=== PATIENT | male | born 1955 | race Caucasian/White ===

== ENCOUNTER → 2018-01-01 14:13 | Outpatient (CLI) | payer OTHER, SELFPAY ==
--- NOTE | 2018-01-01 14:18 | RAD_ITS ---
STUDY: X-RAY CHEST REASON FOR EXAM: Male, 62 years old. Cough for one month. TECHNIQUE: Frontal and lateral views of the chest. COMPARISON: None. FINDINGS: The lungs are hyperinflated. There are bilateral prominent interstitial markings. Normal size heart. Normal mediastinum and christianne. Normal visualized pulmonary arteries. Normal visualized aortic arch and descending thoracic aorta. There are diffuse degenerative changes of the visualized thoracic spine. Normal visualized ribs, clavicles, and shoulders. There is no demonstrated abnormality of the visualized soft tissue structures of the upper abdomen. RAD/Chest PA and Lateral IMPRESSION: Hyperinflated lungs may reflect underlying COPD. Prominent interstitial markings, these may be chronic in nature however cannot exclude underlying interstitial edema and/or an infectious process. Electronically Signed: Lakeisha Arevalo MD at 19:53 EDT Tel , Service support ,
== END ==
PROVIDERS: Family Provider Internal Medicine; PCP Internal Medicine; Visit Provider Nurse Practitioner Gerontology
DX: R05 Cough (principal)
CPT/HCPCS: 71046

== ENCOUNTER 2018-01-11 15:27 | Emergency (ER) | payer OTHER, SELFPAY ==
[2018-01-11 15:28] VITALS: BP 107/84; PULSE 60; PULSE 62; RESP 18; TEMP 36.4; O2SAT 97; BMI 34.0
--- NOTE | 2018-01-11 15:31 | RAD_ITS ---
STUDY: X-RAY CHEST REASON FOR EXAM: Male, 62 years old. Dyspnea TECHNIQUE: Single PA view of the chest. COMPARISON: Prior study of 01/01/2018 FINDINGS: The lungs are clear and expanded. There is no demonstrated pleural abnormality. Normal size heart. Normal mediastinum and christianne. Normal visualized pulmonary arteries. Normal visualized aortic arch and descending thoracic aorta. There are diffuse degenerative changes of the visualized thoracic spine. Normal visualized ribs, clavicles, and shoulders. There is no demonstrated abnormality of the visualized soft tissue structures of the upper abdomen. RAD/Chest 1 View (Portable) IMPRESSION: Degenerative changes, as described above. No demonstrated acute cardiopulmonary process. Electronically Signed: Bo Vivas MD at 17:35 EDT , Service support ,
--- NOTE | 2018-01-11 15:31 | EKG12_ITS ---
Test Reason : PALPS Blood Pressure : / mmHG Vent. Rate : 104 BPM Atrial Rate : 163 BPM P-R Int : 000 ms QRS Dur : 096 ms QT Int : 322 ms P-R-T Axes : 000 029 027 degrees QTc Int : 423 ms Atrial fibrillation Abnormal ECG Confirmed by KAYCE BEAVERS MD ([id number]), visual effects editor CURLY BAUMANN ([id number]) on 01/15/2018 2:44:33 PM Referred By: ANDREW/SEBAS Confirmed By:KAYCE BEAVERS MD
[2018-01-11 15:54] LABS: Absolute Neutrophil Count 7.4 X10^3/uL (2.0-7.7); Basophil# 0.02 X10^3/uL; Basophil% 0.2 % (0-1); Eosinophil# 0.19 X10^3/uL; Eosinophils% 1.8 % (0-5); Hematocrit 48.8 % (40-54); Hemoglobin 16.9 g/dl (13.0-16.5); Lymphocyte % 21.6 % (19-41); Mean Corp Hgb Conc 34.6 g/gl (32-36); Mean Corpuscular Hgb 28.6 pg (27.0-32.0); Mean Corpuscular Volume 82.7 fL (80-94); Mean Platelet Vol. 9.3 fl (6.2-12.0); Monocyte# 0.74 X10^3/uL; Neutrophil # 7.35 X10^3/uL (2.7-7.7); Neutrophil % 69.1 % (47-70); Platelet Count 187 K/mm3 (150-450); RBC Distribution Width CV 13.9 % (11.6-14.6); RBC Distribution Width SD 42.1 fl (35.1-43.9); White Blood Count 10.6 K/mm3 (4.4-11.0)
[2018-01-11 15:58] LABS: POSITIVE COUNT NO; POSITIVE DIFFERENTIAL NO; POSITIVE MORPHOLOGY NO
[2018-01-11 16:08] LABS: Prothrombin Time (Protime)PT. 13.5 SECONDS (11.7-14.9)
[2018-01-11 16:12] LABS: Anion Gap 8 (5-15); BUN 22 mg/dL (7-18); BUN/Creat Ratio 17.3 RATIO (10-20); Calcium,Total 9.1 mg/dL (8.5-10.1); Chloride 113 mmol/L (98-107); Creatinine, Serum 1.27 mg/dL (0.70-1.30); EST Glomerular Filtration Rate 61 mL/min (>60); Est Glom Filt Rate - Afr Amer 74 mL/min (>60); Glucose 105 mg/dL (74-106); Potassium 4.2 mmol/L (3.5-5.1); Sodium Level 142 mmol/L (136-145)
--- NOTE | 2018-01-11 17:55 | ED.DCSUM_ITS ---
- ER Visit Summary Date of Service: 01/11/18 Chief Complaint: Irregular heart rhythm History of Present Illness: The patient is a 62 M presents to the emergency department with an irregular heart rhythm. The patient was being seen at his urgent care for ear pain. He states he listened to a woman thought that his heart was regular. He has had absolutely no symptoms. He denies chest pain, dyspnea, leg edema, or exertional dyspnea. He has no documented history of coronary vascular disease. He denies headache or weakness. He has no history of easy bleeding or bruising. He does not smoke. There is no family history of heart disease. Patient was sent over for further evaluation. EKG in triage demonstrated coarse atrial fibrillation versus atrial flutter with intermittent conduction. Physical Examination: Vital signs reviewed General: Well-nourished, well-developed Head: Normocephalic, atraumatic Eyes: Pupils equal and reactive, extraocular muscles intact Neck, supple, no lymphadenopathy Heart: Regular rate and rhythm Respiratory: No distress, clear bilaterally Abdomen: Soft, nontender, nondistended, no peritoneal signs Back: Nontender Extremities: Nontender, no edema, no cords Skin: Normal color no rash Neuro: Alert and oriented, no focal or lateralizing deficits Test Results: [] Emergency Department Course and Treatment: EKG was reviewed. There is no acute ischemic change. The patient has absolutely no symptoms. His labs are obtained were unremarkable. I did discuss the patient with Dr. Dick. He is not tachycardic. He has no evidence of volume overload. He has no acute symptoms. I do feel that he is safe for outpatient therapy. We are going to start him on an anticoagulant and a low-dose beta-jose a. Patient is comfortable this plan of care. His contact information was sent to the cardiology office to ensure outpatient follow-up. He is given his first dose here. He will be discharged home. Treatment Plan: [] Disposition: Discharge Impression: 1. New onset atrial fibrillation This note was generated with [employer] dictation software. It may contain incorrect words, spelling, and punctuation that were not noted in review of the chart prior to signing ED Disposition - Plan for ED Patient: Chief Complaint: Palpitations Instructions: ED Afib Prescriptions: Metoprolol Succinate 25 mg PO DAILY #30 tab.er.24h Rivaroxaban [Xarelto] 20 mg PO DAILY #30 tab Referrals: Balwinder Dick MD [STAFF PHYSICIAN] - 3-5 Days
[2018-01-11] MEDS: Rivaroxaban 20 MG Tablet PO (18:06)
[2018-01-11] MEDS: Metoprolol Tartrate 25 MG Tablet 12.5 MG PO (18:06)
[2018-01-11 18:07] VITALS: BP 122/92; PULSE 63; RESP 17; O2SAT 100; O2SAT 97
[2018-01-11 18:17] VITALS: PULSE 636; RESP 17; O2SAT 97
== END 2018-01-11 18:23 | disposition home or self-care (01) ==
LOC: ED 18:21
PROVIDERS: Emergency Provider Emergency Medicine; Family Provider Internal Medicine; PCP Internal Medicine
DX: I48.91 Unspecified atrial fibrillation (principal)
CPT/HCPCS: 71045; 80048; 84484; 85025; 85610; 93005; 99285; A4216

== ENCOUNTER → 2018-01-24 07:01 | Outpatient (CLI) | payer OTHER, SELFPAY ==
[2018-01-24 10:56] LABS: AST(SGOT) 31 U/L (15-37); Alanine Aminotransfer ALT/SGPT 41 U/L (16-61); Albumin, Serum 3.7 g/dL (3.2-5.0); Alkaline Phosphatase 76 U/L (45-117); Bilirubin, Direct 0.28 mg/dL (0.00-0.30); Cholesterol 168 mg/dL (200); Globulin 3.5 g/dL (2.2-4.2); High Density Lipoprotein 38 mg/dL; Protein, Total 7.2 g/dL (6.4-8.2); T4 Total, Thyroxin 8.7 ug/dL (4.5-12.1); Thyroid Stim Hormone (TSH) 7.24 uIU/mL (0.358-3.74); Triglycerides 92 mg/dL; Very Low Density Lipoprotein 18 mg/dL (5-40)
== END ==
PROVIDERS: Family Provider Internal Medicine; PCP Internal Medicine; Visit Provider Internal Medicine Cardiovascular Disease
DX: I48.91 Unspecified atrial fibrillation (principal)
CPT/HCPCS: 36415; 80061; 80076; 84436; 84443

== ENCOUNTER → 2018-01-26 08:56 | Outpatient (CLI) | payer OTHER, SELFPAY ==
--- NOTE | 2018-01-26 09:03 | ECHOD_ITS ---
Reason For Study: Afib-Flutter Procedure This was a 2D Doppler, Color Flow transthoracic echocardiogram. Exam performed in department. Left Ventricle Moderately dilated left ventricle. The estimated ejection fraction is 35 %. There is moderate global hypokinesis of the left ventricle. Right Ventricle Severely dilated right ventricle. Mild global right ventricular systolic dysfunction. Atria The left atrium is severely enlarged. Normal right atrium. Normal atrial septum. Mitral Valve The mitral valve is structurally normal. No prolapse or stenosis seen. Trivial mitral valve insufficiency. Tricuspid Valve Normal tricuspid valve. Trivial tricuspid valve insufficiency. Unable to estimate RV systolic pressure due to inadequate jet, pulmonary artery pressure probably normal. Aortic Valve Normal aortic valve. Trisinus/trileaflet aortic valve. Pulmonic Valve Normal pulmonic valve. Great Vessels Normal aortic root. Normal arch. Normal inferior vena cava. Inferior vena cava collapse with sniff. Pericardium/Pleural No pericardial effusion. MMode/2D Measurements & Calculations LVIDd: 5.1 cm IVSd: 1.2 cm Ao root diam: 3.6 cm LVIDs: 4.4 cm LVPWd: 1.3 cm LA dimension: 4.4 cm RVDd: 5.3 cm FS: 13.9 % LAV(MOD-bp): 95.7 ml LVAd ap4: 40.8 cm2 SV(MOD-sp4): 41.3 ml LAV(MOD-bp) Indexed: 40.1 ml/m2 EDV(MOD-sp4): 142.2 ml LAV(MOD-sp2): 83.1 ml EDV(sp4-el): 150.2 ml LAV(MOD-sp4): 87.5 ml LVAs ap4: 32.3 cm2 ESV(MOD-sp4): 100.9 ml ESV(sp4-el): 103.5 ml EF(MOD-sp4): 29.0 % EF(sp4-el): 31.1 % SV(sp4-el): 46.7 ml LA A4 area: 28.3 cm2 RA A4 area: 19.9 cm2 Time Measurements MV dec time: 0.21 sec Doppler Measurements & Calculations MV E max west: 71.2 cm/sec MV P1/2t max west: 81.2 cm/sec Ao V2 max: 81.4 cm/sec MV P1/2t: 62.8 msec Ao max P.7 mmHg MV dec slope: 378.8 cm/sec2 Ao V2 mean: 57.5 cm/sec MVA(P1/2t): 3.5 cm2 Ao mean P.5 mmHg Ao V2 VTI: 14.3 cm LV V1 max: 62.2 cm/sec PA V2 max: 66.4 cm/sec LV V1 max P.6 mmHg LV V1 mean P.72 mmHg LV V1 mean: 38.7 cm/sec LV V1 VTI: 10.9 cm Interpretation Summary Moderately dilated left ventricle. The estimated ejection fraction is 35 %. There is moderate global hypokinesis of the left ventricle. Severely dilated right ventricle. The left atrium is severely enlarged. Trivial mitral valve insufficiency. Trivial tricuspid valve insufficiency. Unable to estimate RV systolic pressure due to inadequate jet, pulmonary artery pressure probably normal. Pt appears to be in atrial fibrillation. There is no comparison study available. Ordering Physician: Balwinder Dick Referring Physician: Balwinder Dick Performed By: Erasto Jiang RCS
== END ==
PROVIDERS: Family Provider Internal Medicine; PCP Internal Medicine; Visit Provider Internal Medicine Cardiovascular Disease
DX: I48.91 Unspecified atrial fibrillation (principal)
CPT/HCPCS: 93306

== ENCOUNTER 2018-01-31 22:33 | Observation (INO) | payer OTHER, SELFPAY ==
[2018-01-31 22:34] VITALS: BP 117/82; PULSE 72; RESP 16; TEMP 36.5; O2SAT 98; BMI 34.5
--- NOTE | 2018-01-31 22:47 | EKG12_ITS ---
Test Reason : CP Blood Pressure : / mmHG Vent. Rate : 090 BPM Atrial Rate : 089 BPM P-R Int : 000 ms QRS Dur : 088 ms QT Int : 382 ms P-R-T Axes : 000 043 007 degrees QTc Int : 467 ms Atrial fibrillation Abnormal ECG Confirmed by RICHA WASSERMAN, FELICITY ([id number]), department editor CURLY BAUMANN ([id number]) on 02/02/2018 1:26:04 PM Referred By: ALFONZO Confirmed By:FELICITY CHAUDHRY MD
--- NOTE | 2018-01-31 22:47 | RAD_ITS ---
STUDY: X-RAY CHEST REASON FOR EXAM: Male, 62 years old. Chest pain. Shortness of breath. TECHNIQUE: Single AP portable view of the chest. COMPARISON: January 11, 2018. FINDINGS: There is a slightly decreased inspiratory effort. There is no new infiltrate or mass. There is no demonstrated pleural abnormality. Normal size heart. Normal mediastinum and christianne. Normal visualized pulmonary arteries. Normal visualized aortic arch and descending thoracic aorta. There are diffuse degenerative changes of the visualized thoracic spine. Normal visualized ribs, clavicles, and shoulders. There is no demonstrated abnormality of the visualized soft tissue structures of the upper abdomen. RAD/Chest 1 View (Portable) IMPRESSION: No acute cardiopulmonary disease or interval change. Electronically Signed: Justus Moran DO at 23:05 EDT Tel [phone], Service support ,
--- NOTE | 2018-01-31 22:50 | ED.DCSUM_ITS ---
- ER Visit Summary Date of Service: 01/31/18 Chief Complaint: Chest tightness History of Present Illness: The patient is a 62 M presenting with chest tightness. Patient states this started around 4 PM this afternoon. He states it has been intermittent since that time. Pain is substernal and radiates to the right side of his chest. It is worsened with exertion. He had associated diaphoresis earlier today. He denies nausea, vomiting, shortness of breath. He was recently diagnosed with atrial fibrillation and has seen Dr. Dick. He is scheduled for heart cath on February 14. He is currently on Xarelto. He has no known coronary disease risk factors. He is not a smoker. No PE/DVT risk factors. Physical Examination: Vitals are stable. Patient is afebrile. Alert no acute distress. HEENT exam is unremarkable. Neck is supple. Lungs are clear and equal bilaterally. Heart is regular rate and rhythm. Abdomen is soft nontender nondistended. Extremities are unremarkable. Skin is warm and dry. No focal neurologic deficit. Remainder of exam is unremarkable. Emergency Department Course and Treatment: Patient was given aspirin on arrival. EKG shows A. fib rate of 90. Chest x-ray shows no acute process. CBC unremarkable. Chemistries unremarkable other than creatinine of 1.33. Troponin is negative. On repeat evaluation, patient is pain-free. Will discuss with the hospitalist for admission Disposition: Admission Impression: Chest pain This note was generated with [employer] dictation software. It may contain incorrect words, spelling, and punctuation that were not noted in review of the chart prior to signing ED Disposition - Plan for ED Patient: Chief Complaint: Chest Pain Referrals: Steff Carrington [Primary Care Provider] -
[2018-01-31] MEDS: Aspirin 81 MG TAB.CHEW 324 MG PO (22:54)
[2018-01-31 22:56] LABS: Absolute Lymphocyte Count 3.07 X10^3/ul (0.83-4.51); Absolute Neutrophil Count 5.9 X10^3/uL (2.0-7.7); Basophil# 0.04 X10^3/uL; Basophil% 0.4 % (0-1); Eosinophil# 0.27 X10^3/uL; Eosinophils% 2.7 % (0-5); Hematocrit 47.6 % (40-54); Hemoglobin 16.1 g/dl (13.0-16.5); Lymphocyte # 3.07 X10^3/ul (4.0); Lymphocyte % 30.5 % (19-41); Mean Corp Hgb Conc 33.8 g/gl (32-36); Mean Corpuscular Hgb 28.3 pg (27.0-32.0); Mean Corpuscular Volume 83.7 fL (80-94); Mean Platelet Vol. 9.7 fl (6.2-12.0); Monocyte# 0.79 X10^3/uL; Monocyte% 7.8 % (0-10); Neutrophil # 5.87 X10^3/uL (2.7-7.7); Neutrophil % 58.3 % (47-70); POSITIVE COUNT NO; POSITIVE DIFFERENTIAL NO; POSITIVE MORPHOLOGY NO; Platelet Count 154 K/mm3 (150-450); RBC Distribution Width CV 14.3 % (11.6-14.6); RBC Distribution Width SD 43.6 fl (35.1-43.9); Red Blood Count 5.69 M/mm3 (4.6-6.2); White Blood Count 10.1 K/mm3 (4.4-11.0)
[2018-01-31 23:24] LABS: Anion Gap 8 (5-15); BUN 21 mg/dL (7-18); BUN/Creat Ratio 15.8 RATIO (10-20); Chloride 112 mmol/L (98-107); Creatinine, Serum 1.33 mg/dL (0.70-1.30); EST Glomerular Filtration Rate 58 mL/min (>60); Est Glom Filt Rate - Afr Amer 70 mL/min (>60); Estimated Creatinine Clearance 66.75 ml/min; Glucose 104 mg/dL (74-106); Potassium 4.3 mmol/L (3.5-5.1); Sodium Level 144 mmol/L (136-145)
--- NOTE | 2018-01-31 23:44 | HP.PCM_ITS ---
Problem List (1) Chest pain Status: Acute (2) Atrial fibrillation Status: Chronic History of Present Illness Date of Admission: 02/01/18 Chief Complaint: Chest pain ?1 day. The patient is a 62 year old M with a significant history of atrial fibrillation , heart failure with ejection fraction 35%; hypothyroidism who presented to the emergency department because of episodic chest pain of one-day duration. Every 2-3 hours he gets chest pain that last for 5 minutes. His symptoms occurs both at rest and with exertion. His chest pain is nonradiating. Associated with his symptoms is diaphoresis. He described his chest pain as a tightening at this mid sternum extending to the left side of his chest. Patient follows up with Dr. Dick in regards to his atrial fibrillation and was scheduled to have a heart cath in February of this year. Also patient reports that he was started on Synthroid for hypothyroidism. He took the first dose of the Synthroid earlier in the day before his symptoms started. At emergency department he was given 4 doses of baby aspirin. Past Medical History Past Medical History (Chronic Problems): Chronic Problems (Last Updated 01/26/18 @ 14:10 by Clotilde Bautista) Atrial enlargement, right (Chronic) Per echo 01/26/18 Cardiomyopathy (Chronic) EF 35% per echo 01/26/18 GERD (gastroesophageal reflux disease) (Chronic) Atrial fibrillation (Chronic) Medical History: Medical History (Last Updated 01/26/18 @ 14:10 by Clotilde Bautista) Atrial enlargement, right (Chronic) I51.7 Per echo 01/26/18 Cardiomyopathy (Chronic) I42.9 EF 35% per echo 01/26/18 GERD (gastroesophageal reflux disease) (Chronic) K21.9 Atrial fibrillation (Acute) I48.91 Allergies No Known Allergies Allergy (Verified 01/23/18 10:46) Home Medications: Ambulatory Orders Medication Instructions Recorded albuterol sulfate HFA 90 2 puff INHALATION Q6H PRN 01/22/18 mcg/actuation aerosol inhaler metoprolol succinate ER 25 mg 25 mg PO DAILY #30 tab.er.24h 01/23/18 tablet,extended release 24 hr rivaroxaban 20 mg tablet 20 mg PO DAILY #30 tab 01/23/18 levothyroxine 125 mcg capsule 125 mcg PO QDAY #30 cap 01/29/18 Omeprazole [Prilosec] 20 mg PO DAILY 02/01/18 Surgical History: Surgical History (Last Reviewed 02/01/18 @ 04:44 by Slick Fontaine MD) H/O lateral meniscus repair of left knee Onset Date: ~[address] Odom, [facility] Surgical History: no surgical history Lives: Spouse/ Significant Other Smoking Status: Never smoker Alcohol: None Drugs: None Review of Systems Constitutional: Denies: Chills, Fever, Weight Change Eyes: Denies: Blurred vision, Pain HEENT: Denies: Head Aches, Sinus Congestion, Sinus Drainage Cardiovascular: Reports: Chest Pain Respiratory: Denies: Cough, Shortness of breath at rest, Sputum production Gastrointestinal: Denies: Abdominal Pain, Nausea, Vomiting Genitourinary: Denies: Dysuria Musculoskeletal: Denies: Joint Pain, Joint Tenderness Skin: Denies: Rash, Wounds Neurological: Denies: Numbness, Tingling, Focal weakness Psychiatric: Denies: Anxiety, Depression, Homicidal Ideations, Suicidal Ideations Hematologic/ Lymphatic: Denies: Easy Bruising, Easy Bleeding VTE Information - Inpt Only VTE Present on Admission: No VTE Mechan Device Prophylaxis: None VTE Pharm Prophylaxis ordered?: No Reason prophylaxis not ordered:: Medical Contraindication Patient Problems: Active and Suspected Problems (Last Updated 01/26/18 @ 14:10 by Clotilde Bautista) Chest pain (Acute) - Physical Exam General: Alert, Oriented x3, Cooperative HEENT: Atraumatic, PERRLA, EOMI, Normocephalic Neck: Supple, No JVD, Negative Carotid Bruits Lungs: Clear to auscultation, Normal air movement Cardiovascular: Irregular Rate, - - Irregularly regular rhythm. Abdomen: Bowel Sounds Present, Soft, Non Tender Extremities: No edema, Capillary Refill Less than 3 Seconds Skin: No rashes, No breakdown Musculoskeletal: No Tenderness to Palpation of Joints or Extremities Neurological: Cranial nerves II-XII grossly intact Psych/Mental Status: Normal Affect, Appropriate Vital Signs Temp Pulse Resp BP Pulse Ox 97.7 F L 72 16 117/82 H 98 01/31/18 22:34 01/31/18 22:34 01/31/18 22:34 01/31/18 22:34 01/31/18 22:34 Oxygen Delivery Method Room Air Weight: 118.9 kg Body Mass Index (BMI) 34.5 Laboratory Tests Past 24 Hrs 01/31/18 01/31/18 22:45 22:45 WBC 10.1 RBC 5.69 Hgb 16.1 Hct 47.6 MCV 83.7 MCH 28.3 MCHC 33.8 RDW 14.3 RDW Differential 43.6 Plt Count 154 MPV 9.7 Immature Gran % (Auto) 0.300 Neut % (Auto) 58.3 Lymph % (Auto) 30.5 Harper % (Auto) 7.8 Eos % (Auto) 2.7 Baso % (Auto) 0.4 Absolute Neuts (auto) 5.9 Absolute Lymphs (auto) 3.07 Total Counted Not Reportable Sodium 144 Potassium 4.3 Chloride 112 H Carbon Dioxide 24.0 Anion Gap 8 BUN 21 H Creatinine 1.33 H Estim Creat Clear Calc 66.75 Est GFR (MDRD) Af Amer 70 Est GFR (MDRD) Non-Af 58 L BUN/Creatinine Ratio 15.8 Glucose 104 Calcium 9.0 Troponin I < 0.015 Assessment/Plan All Active Problems (Last Updated 01/26/18 @ 14:10 by Clotilde Bautista) Chest pain (Acute) The patient is a 62 year old M with a significant history of atrial fibrillation , heart failure with ejection fraction 35%; hypothyroidism who presented to the emergency department because of episodic chest pain of one-day duration. Chest pain Because of his associated symptoms of diaphoresis and heart failure it is likely that his chest pain is cardiac in origin. However since his symptoms started after the first dose of Synthroid it could also be due to his Synthroid. Admit to a monitored bed on PCU ASA 81 mg p.o. daily Atorvastatin ordered Toprol continued SL NTG 0.4 mg prn as needed for chest pain Serial cardiac enzymes Stat EKG as needed for chest pain Since his cannoneer Dr. Dick was planning to do a cardiac cath before his presentation will consult cardiology. Reportedly he took his Xarelto a few hours before presentation and the next dose of Xarelto should be due around 8:30 PM of 02/02/2018. In any case we will hold Xarelto at this time as we await cardiology to see patient. Atrial fibrillation Heart rate is controlled at this time. Metoprolol continued Xarelto was taken in less than 24 hours. Hypothyroidism Synthroid continued. Heart failure Metoprolol continued Patient is not on RUBA inhibitor at this time. Consider discussion of RUBA inhibitor with patient. DVT prophylaxis Xarelto was taken in less than 24 hours. Prophylaxis not indicated.
[2018-02-01] VITALS (16 sets, daily range): BP systolic 113–152; BP diastolic 77–99; PULSE 61–141; RESP 16–18; TEMP 36.4–37.1; O2SAT 94–100; BMI 34.0; BMI 34.6
--- NOTE | 2018-02-01 00:30 | NURSING ---
Called brandy in er, pt ok to come to floor.
--- NOTE | 2018-02-01 00:44 | EKG12_ITS ---
Test Reason : CP ADMIT Blood Pressure : / mmHG Vent. Rate : 078 BPM Atrial Rate : 080 BPM P-R Int : 000 ms QRS Dur : 086 ms QT Int : 414 ms P-R-T Axes : 000 037 -26 degrees QTc Int : 471 ms Atrial fibrillation Nonspecific T wave abnormality Prolonged QT Abnormal ECG Confirmed by RICHA WASSERMAN, FELICITY ([id number]), scientific publications editor CURLY BAUMANN ([id number]) on 02/02/2018 1:46:23 PM Referred By: DR GOULD Confirmed By:FELICITY CHAUDHRY MD
[2018-02-01] MEDS: Atorvastatin Calcium 80 MG Tablet PO ×2 (01:21→22:52)
[2018-02-01 05:21] LABS: Hematocrit 46.9 % (40-54); Hemoglobin 16.4 g/dl (13.0-16.5); Mean Corpuscular Hgb 28.9 pg (27.0-32.0); Mean Corpuscular Volume 82.6 fL (80-94); Mean Platelet Vol. 9.8 fl (6.2-12.0); Platelet Count 171 K/mm3 (150-450); RBC Distribution Width CV 14.5 % (11.6-14.6); RBC Distribution Width SD 43.7 fl (35.1-43.9); Red Blood Count 5.68 M/mm3 (4.6-6.2); White Blood Count 8.1 K/mm3 (4.4-11.0)
[2018-02-01 05:23] LABS: Scan Indicated on CBC? Y/N NO
[2018-02-01 05:30] LABS: International Normalized Ratio 1.7; Prothrombin Time (Protime)PT. 20.4 SECONDS (11.7-14.9)
[2018-02-01 05:31] LABS: Partial Thromboplast Time 36.8 Seconds (24.1-36.2)
[2018-02-01 05:35] LABS: Anion Gap 8 (5-15); BUN 21 mg/dL (7-18); BUN/Creat Ratio 18.4 RATIO (10-20); Chloride 111 mmol/L (98-107); Creatinine, Serum 1.14 mg/dL (0.70-1.30); EST Glomerular Filtration Rate 70 mL/min (>60); Est Glom Filt Rate - Afr Amer 84 mL/min (>60); Estimated Creatinine Clearance 75.63 ml/min; Glucose 90 mg/dL (74-106); Potassium 4.4 mmol/L (3.5-5.1); Sodium Level 143 mmol/L (136-145)
[2018-02-01] MEDS: Levothyroxine 125 MCG Tablet PO (06:02)
--- NOTE | 2018-02-01 06:48 | NURSING ---
This RN has reviewed and agrees with all charting by Sylvia WHITE. 01/31, 02/01 7p-7a
--- NOTE | 2018-02-01 08:49 | STE_ITS ---
Reason For Study: Chest Pain Stress Results Protocol: Amilcar Protocol Maximum Predicted HR: 160 bpm Target HR: 136 bpm% Max imum Predicted HR: 110 % DurationHeart Rate Stage (mm:ss) (bpm) BPCom ment Baseline 90 116/82 No Chest Pain Amilcar Protocol Stage I 3:00 15 7 134/76No Chest Pain; Mild Dyspnea Amilcar Protocol Stage II 3:00 17 6 152/74No Chest Pain; Moderate Dyspnea Recovery 104 122/8 4No Chest Pain Stress Duration: 6:00 mm:ss Maximum Stress HR: 176 bpmM ETS: 7 Baseline Echocardiogram Findings The estimated ejection fraction is 35 %. Stress Echo Wall motion Data Resting WMIntermediate WMStress WM Resting Wall Motion Wall Motion Stress Moderate global LV dysfunction. All segments contracted normally. EKG Data Atrial fibrillation wth CVR. The patient exercised according to the regular Amilcar protocol for a total duration of 6:00. The maximum heart rate attained was 176 beats per minute. This was 110% of maximum predicted heart rate. The patient exercised into stage 2 of the Amilcar protocol. At peak exercise, upsloping ST changes only were noted, which did not meet the criteria for ischemia. No clinical angina was noted. Interpretation Summary The study was technically difficult. The estimated ejection fraction is 35 %. Normal, adequate, treadmill echocardiogram. Negative for ischemia by echocardiographic criteria. Patient developed subtle diffuse ST segment depression at peak exercise. No anginal symptoms noted. Patient had baseline moderate global LV dysfunction with an EF around 35% which improved to an ejection fraction around 45% at peak exercise. Poor exercise capacity for age. Test terminated due to dyspnea. Rare PVCs noted. Below average exercise capacity for age. Appropriate blood pressure response to exercise. No complications. Ordering Physician: Balwinder Dick Referring Physician: Balwinder Dick Performed By: Kortney Mendenhall, PRESTONCS, RVT
[2018-02-01] MEDS: Aspirin E.C. 81 MG Tablet PO (09:03)
--- NOTE | 2018-02-01 10:43 | CON.PCM_ITS ---
Problem List (1) Chest pain Status: Acute (2) Cardiomyopathy Status: Chronic Comment: EF 35% per echo 01/26/18 (3) Atrial fibrillation Status: Chronic Reason for Consult Date of Consultation: 02/01/18 Reason for Consultation: Chest pain, atrial fibrillation, History of Present Illness: The patient is a 62 year old M nondiabetic, non-smoker, who I recently saw in the office for evaluation of new onset atrial fibrillation and LV dysfunction. Several weeks ago the patient developed a fever and cough and sought medical attention at his PCPs office. He had a follow-up evaluation in a now clinic, which discovered irregular heartbeat. Patient was found to be in atrial fibrillation was placed on Xarelto therapy as well as metoprolol. He underwent a 2D echo with Doppler which demonstrated global LV dysfunction of around 35% and he was referred to our office. 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 Patient states his chest pain lasted on and off for several hours, culminating in significant diaphoresis last evening. Unfortunately he continued to take his Xarelto at 6 PM last evening. When his symptoms did not improve he came to the emergency room yesterday and described his chest pain is tightening in the mid sternum and extending to his left side of his chest. Patient was ruled out for myocardial infarction underwent a treadmill echocardiogram this morning which showed baseline global LV dysfunction, mild improvement of LV function at peak exercise, no chest pain, stop for dyspnea on exertion but had abnormal EKG changes. Patient had poor exercise capacity for age. Patient has been compliant with his medications. He denies any additional fevers, chills, cough or shortness of breath. [] Past Medical History Allergies/Adverse Reactions: Allergies No Known Allergies Allergy (Verified 01/23/18 10:46) Home Medications: Ambulatory Orders Medication Instructions Recorded albuterol sulfate HFA 90 2 puff INHALATION Q6H PRN 01/22/18 mcg/actuation aerosol inhaler metoprolol succinate ER 25 mg 25 mg PO DAILY #30 tab.er.24h 01/23/18 tablet,extended release 24 hr rivaroxaban 20 mg tablet 20 mg PO DAILY #30 tab 01/23/18 levothyroxine 125 mcg capsule 125 mcg PO QDAY #30 cap 01/29/18 Omeprazole [Prilosec] 20 mg PO DAILY 02/01/18 Past Medical History (Chronic Problems): Chronic Problems (Last Updated 01/26/18 @ 14:10 by Clotilde Bautista) Atrial enlargement, right (Chronic) Per echo 01/26/18 Cardiomyopathy (Chronic) EF 35% per echo 01/26/18 GERD (gastroesophageal reflux disease) (Chronic) Atrial fibrillation (Chronic) Surgical History: no surgical history Lives: Spouse/ Significant Other Smoking Status: Never smoker Tobacco Use: Non-smoker Alcohol: None Drugs: None Review of Systems - Review of Systems General: Denies: Fever, Night Sweats, Fatigue Cardiovascular: Reports: Chest Discomfort, Chest Discomfort with Exertion, Chest Pressure, Chest Tightness, Shortness of Breath, Shortness of Breath with Exertion. Denies: Orthopnea, PND, Peripheral Edema, Palpitations, Lightheadedness, Dizziness, Near Syncope, Syncope Respiratory: Denies: Cough, Sputum Production, Hemoptysis Gastrointestinal: Denies: Hematemesis, Hematochezia, Melena Genitourinary: Denies: Dysuria, Hematuria Skin: Denies: Rash Subjectve: Patient sitting in a chair, no acute distress. Telemetry showed atrial fibrillation with controlled ventricular response. EKG shows atrial fibrillation with controlled ventricular response, no acute changes. Objective: Vital Signs Temp Pulse Resp BP Pulse Ox 97.6 F L 76 18 121/94 H 96 02/01/18 06:03 02/01/18 07:06 02/01/18 06:03 02/01/18 06:03 02/01/18 06:03 Oxygen Delivery Method Room Air Weight: 256 lb 6.362 oz Body Mass Index (BMI) 34.0 General: Awake, Alert, Oriented x 3 HEENT: PERRL, EOMI, Sclera Non Icteric Neck: Supple, Good ROM, No Lymph Node Enlargement Lungs: Clear to auscultation Cardiovascular: Irregular Rhythm, Normal S1, Normal S2, No Murmurs, No Rubs, No Gallops Vascular: No Carotid Bruits, Normal Femoral Pulses, Normal Radial Pulses, Normal Dorsalis Pedal Pulse, Normal Posterior Tibial Pulses Abdomen: Bowel Sounds Present, Soft, Non Tender, No HSM, No Organomegaly Extremities: No Cyanosis, No Clubbing, No edema Neurological: No Focal Motor or Sensory Deficit 02/01/18 02:15: Troponin I < 0.015 02/01/18 05:08: WBC 8.1, RBC 5.68, Hgb 16.4, Hct 46.9, MCV 82.6, MCH 28.9, MCHC 35.0, RDW 14.5, RDW Differential 43.7, Plt Count 171, MPV 9.8 02/01/18 05:08: Sodium 143, Potassium 4.4, Chloride 111 H, Carbon Dioxide 24.0, Anion Gap 8, BUN 21 H, Creatinine 1.14, Est GFR (MDRD) Af Amer 84, Est GFR (MDRD ) Non-Af 70, BUN/Creatinine Ratio 18.4, Glucose 90, Calcium 9.0 02/01/18 05:08: Troponin I < 0.015 02/01/18 05:08: PT 20.4 H, INR 1.7, APTT 36.8 H Rhythm: EKG: ECHO: Stress Test: Cardiac Cath: PCI: CT Surgery: Holter monitor: EPS: PPM: CXR: Chest CT Scan: Assessment/Plan 1. 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 Patient underwent a walking stress echo this morning and had no chest pain symptoms however stopped due to dyspnea. He only went about 6 minutes before stopping due to dyspnea. Patient did have augmentation of all phillips however his maximum LV ejection fraction was only around 45%. In addition he had diffuse EKG changes consistent with possible ischemia. At this point I would recommend patient undergo a diagnostic coronary angiogram tomorrow morning. He will be loaded with Plavix 300 mg ?1 now, followed by Plavix 75 mg a day. In addition we will continue the patient on Toprol as well as baby aspirin. Would also recommend starting Cozaar 25 mg p.o. daily for afterload reduction. The patient has normal coronary arteries she will be deemed an nonischemic cardiomyopathy possibly secondary to his recent viral illness as well as perhaps from his atrial fibrillation. I believe the patient would benefit from an attempted DC cardioversion in 3 weeks time once his Xarelto has been restarted. 2. Hyperlipidemia: Recommend obtaining a fasting lipid profile. 3. Thank you very much for the opportunity to participate in the cardiac care of your patient. Consultation time took place between 8 AM and 8:30 AM. Code Visit Inpatient E&M: 47085 Init Hosp L2
[2018-02-01] MEDS: Clopidogrel Bisulfate 300 MG Tablet PO (11:02)
[2018-02-01] MEDS: Metoprolol(XL)Succ 25 MG Tablet PO (11:02)
[2018-02-01 11:19] LABS: Cholesterol 160 mg/dL (200); High Density Lipoprotein 35 mg/dL; Triglycerides 82 mg/dL; Very Low Density Lipoprotein 16 mg/dL (5-40)
--- NOTE | 2018-02-01 11:57 | CASEMGMT ---
Insurance review for [facility] facilities if transfer is recommended. [facility], , [facility], [facility], [facility], [facility]
--- NOTE | 2018-02-01 14:51 | PN_ITS ---
<Ciro Jon - Last Filed: 02/01/18 14:43> Patient Problems: Active and Suspected Problems (Last Updated 01/26/18 @ 14:10 by Clotilde Bautista) Chest pain (Acute) Subjective: Pt does continue to note palpitations at rest. He has no chest pain or pressure. He currently has no dyspnea, although became very dyspneic with the stress test today. He overall feels improved. Not dizzy or LH. - Physical Exam General: Alert, Oriented x3, Cooperative HEENT: Atraumatic, PERRLA, EOMI, Normocephalic Neck: Supple, No JVD, Negative Carotid Bruits Lungs: Clear to auscultation, Normal air movement Cardiovascular: No murmurs, Irregular Rate Abdomen: Bowel Sounds Present, Soft, Non Tender Extremities: No edema, Capillary Refill Less than 3 Seconds Skin: No rashes, No breakdown Musculoskeletal: No Tenderness to Palpation of Joints or Extremities Neurological: Cranial nerves II-XII grossly intact Psych/Mental Status: Normal Affect, Appropriate Vital Signs Temp Pulse Resp BP Pulse Ox 98.4 F 80 18 152/79 H 100 02/01/18 11:00 02/01/18 11:25 02/01/18 11:00 02/01/18 11:00 02/01/18 11:00 Oxygen Delivery Method Room Air Weight: 256 lb 6.362 oz Body Mass Index (BMI) 34.0 Intake and Output for Last 24 Hours 01/30/18 01/31/18 02/01/18 23:59 23:59 23:59 Intake Total 400 / 400 Balance 400 / 400 Laboratory Tests Past 24 Hrs 02/01/18 02/01/18 02/01/18 02:15 05:08 05:08 WBC 8.1 RBC 5.68 Hgb 16.4 Hct 46.9 MCV 82.6 MCH 28.9 MCHC 35.0 RDW 14.5 RDW Differential 43.7 Plt Count 171 MPV 9.8 PT INR APTT Sodium 143 Potassium 4.4 Chloride 111 H Carbon Dioxide 24.0 Anion Gap 8 BUN 21 H Creatinine 1.14 Estim Creat Clear Calc 75.63 Est GFR (MDRD) Af Amer 84 Est GFR (MDRD) Non-Af 70 BUN/Creatinine Ratio 18.4 Glucose 90 Calcium 9.0 Troponin I < 0.015 Triglycerides Cholesterol LDL Cholesterol VLDL Cholesterol HDL Cholesterol 02/01/18 02/01/18 02/01/18 05:08 05:08 05:08 WBC RBC Hgb Hct MCV MCH MCHC RDW RDW Differential Plt Count MPV PT 20.4 H INR 1.7 APTT 36.8 H Sodium Potassium Chloride Carbon Dioxide Anion Gap BUN Creatinine Estim Creat Clear Calc Est GFR (MDRD) Af Amer Est GFR (MDRD) Non-Af BUN/Creatinine Ratio Glucose Calcium Troponin I < 0.015 Triglycerides 82 Cholesterol 160 LDL Cholesterol 109 VLDL Cholesterol 16 HDL Cholesterol 35 L Medical Necessity - Tobacco Use Smoking Status: Never smoker Tobacco Use: Non-smoker Assessment/Plan All Active Problems (Last Updated 01/26/18 @ 14:10 by Clotilde Bautista) Chest pain (Acute) 1. Chest pain - CP resolved. some EKG changes and severe dyspnea on stress test - will have Cath tomorrow. Troponin neg. LDL 109, started on high dose lipitor at admission. Continue asa. Echo with EF 35%. 2. Recent new onset Afib - Rate controlled. palpitations. Xarelto held. Outpatient Cardioversion planned. 3. HLD - as above, continue high dose statin. 4. Hypothyroid - Synthroid. Recently, TSH elevated but T4 normal. 5. GERD - ppi. DVT ppx: SCDs, resume xarelto when appropriate per cardiology. DC planning: pending results of cath in AM. This patient was seen by Ciro Jon PA-C under the supervision of Doctor Blaine. <Evelyn Valladares - Last Filed: 02/01/18 14:57> - Physical Exam Vital Signs Temp Pulse Resp BP Pulse Ox 98.4 F 80 18 152/79 H 100 02/01/18 11:00 02/01/18 11:25 02/01/18 11:00 02/01/18 11:00 02/01/18 11:00 Oxygen Delivery Method Room Air Weight: 256 lb 6.362 oz Body Mass Index (BMI) 34.0 Intake and Output for Last 24 Hours 01/30/18 01/31/18 02/01/18 23:59 23:59 23:59 Intake Total 400 / 400 Balance 400 / 400 Laboratory Tests Past 24 Hrs 02/01/18 02/01/18 02/01/18 02:15 05:08 05:08 WBC 8.1 RBC 5.68 Hgb 16.4 Hct 46.9 MCV 82.6 MCH 28.9 MCHC 35.0 RDW 14.5 RDW Differential 43.7 Plt Count 171 MPV 9.8 PT INR APTT Sodium 143 Potassium 4.4 Chloride 111 H Carbon Dioxide 24.0 Anion Gap 8 BUN 21 H Creatinine 1.14 Estim Creat Clear Calc 75.63 Est GFR (MDRD) Af Amer 84 Est GFR (MDRD) Non-Af 70 BUN/Creatinine Ratio 18.4 Glucose 90 Calcium 9.0 Troponin I < 0.015 Triglycerides Cholesterol LDL Cholesterol VLDL Cholesterol HDL Cholesterol 02/01/18 02/01/18 02/01/18 05:08 05:08 05:08 WBC RBC Hgb Hct MCV MCH MCHC RDW RDW Differential Plt Count MPV PT 20.4 H INR 1.7 APTT 36.8 H Sodium Potassium Chloride Carbon Dioxide Anion Gap BUN Creatinine Estim Creat Clear Calc Est GFR (MDRD) Af Amer Est GFR (MDRD) Non-Af BUN/Creatinine Ratio Glucose Calcium Troponin I < 0.015 Triglycerides 82 Cholesterol 160 LDL Cholesterol 109 VLDL Cholesterol 16 HDL Cholesterol 35 L Assessment/Plan Hospitalist note: I am seeing this patient in conjunction with Ciro Jon. I independently seen and examined the patient. Progress note above, laboratory data and imaging studies reviewed and I concur with the above treatment plan. He denies any more chest pain or pressure. He reported intermittent palpitations. During stress test, patient became very dyspneic shortness of breath and stress test was terminated. His vital signs are stable. - Physical Exam General: Alert, Oriented x3, Cooperative, No apparent distress. HEENT: Atraumatic, PERRLA, EOMI. Neck: Supple, No JVD, Negative Carotid Bruits, Trachea Midline, Thyroid Normal. Lungs: Diminished breath sounds bilateral, otherwise clear, No rhonchi, No wheeze, No rales. Cardiovascular: Irregular, Normal S1, Normal S2, PMI Normal. Abdomen: Bowel Sounds Present, Soft, Non Tender, Non-Distended, No Hepato- splenomegaly. Extremities: No clubbing, No cyanosis, No edema Skin: No rashes, No breakdown Neurological: Neuro grossly intact Vital Signs are stable. Assessment and plan: #1 chest pain/shortness of breath/EKG changes: Troponin negative ?3. EKG revealed subtle diffuse changes, no acute ST elevation. Stress test performed and was terminated because of significant dyspnea. Stress echocardiogram revealed ejection fraction of 35%. He is on aspirin, Plavix, statins and metoprolol. Cardiology consulted, plan for cardiac catheterization tomorrow morning. #2 cardiomyopathy: Probably ischemic, stress echo revealed ejection fraction of 35%. He had a transthoracic echocardiogram on January 26, 2013 that also revealed ejection fraction of 35%, severely dilated left ventricle, severely enlarged left atrium. And, no evidence of acute CHF. He is on metoprolol. Plan as above. #3 recent diagnosis of A. fib: Rate is controlled, he is on metoprolol for rate control and on Xarelto for anticoagulation. Xarelto held for cardiac catheterization tomorrow. #4 other chronic medical problems: Stable, continue current medications as above. This note was generated with Actionsation software. It may contain incorrect words, spelling, and punctuation that were not noted in checking the note before signing. Code Visit OBSV E&M: 28195 Subsequent observation care L2
[2018-02-02] VITALS (16 sets, daily range): BP systolic 112–134; BP diastolic 70–87; PULSE 55–87; RESP 16–18; TEMP 36.3–36.7; O2SAT 94–97
[2018-02-02 05:32] LABS: Absolute Lymphocyte Count 2.26 X10^3/ul (0.83-4.51); Absolute Neutrophil Count 4.9 X10^3/uL (2.0-7.7); Basophil# 0.04 X10^3/uL; Basophil% 0.5 % (0-1); Eosinophil# 0.31 X10^3/uL; Eosinophils% 3.7 % (0-5); Hematocrit 47.8 % (40-54); Hemoglobin 16.8 g/dl (13.0-16.5); Lymphocyte # 2.26 X10^3/ul (4.0); Lymphocyte % 27.3 % (19-41); Mean Corp Hgb Conc 35.1 g/gl (32-36); Mean Corpuscular Hgb 28.9 pg (27.0-32.0); Mean Corpuscular Volume 82.1 fL (80-94); Mean Platelet Vol. 9.7 fl (6.2-12.0); Monocyte# 0.69 X10^3/uL; Monocyte% 8.3 % (0-10); Neutrophil # 4.94 X10^3/uL (2.7-7.7); Neutrophil % 59.8 % (47-70); Platelet Count 177 K/mm3 (150-450); RBC Distribution Width CV 14.4 % (11.6-14.6); RBC Distribution Width SD 43.3 fl (35.1-43.9); Red Blood Count 5.82 M/mm3 (4.6-6.2); White Blood Count 8.3 K/mm3 (4.4-11.0)
[2018-02-02 05:37] LABS: International Normalized Ratio 1.2
[2018-02-02 05:38] LABS: Partial Thromboplast Time 31.5 Seconds (24.1-36.2)
[2018-02-02] MEDS: Levothyroxine 125 MCG Tablet PO (05:47)
[2018-02-02] MEDS: Metoprolol(XL)Succ 25 MG Tablet PO (05:47)
[2018-02-02] MEDS: Clopidogrel Bisulfate 75 MG Tablet PO (05:49)
[2018-02-02] MEDS: Aspirin E.C. 81 MG Tablet PO (05:50)
--- NOTE | 2018-02-02 05:55 | EKG12_ITS ---
Test Reason : AM EKG Blood Pressure : / mmHG Vent. Rate : 090 BPM Atrial Rate : 101 BPM P-R Int : 000 ms QRS Dur : 088 ms QT Int : 398 ms P-R-T Axes : 000 044 021 degrees QTc Int : 486 ms Atrial fibrillation Prolonged QT Abnormal ECG Confirmed by RICHA WASSERMAN, FELICITY ([id number]), online editor CURLY BAUMANN ([id number]) on 02/06/2018 3:27:20 PM Referred By: DR CLARK Confirmed By:FELICITY CHAUDHRY MD
[2018-02-02 06:04] LABS: Anion Gap 7 (5-15); BUN 18 mg/dL (7-18); BUN/Creat Ratio 15.1 RATIO (10-20); Calcium,Total 8.9 mg/dL (8.5-10.1); Chloride 110 mmol/L (98-107); Creatinine, Serum 1.19 mg/dL (0.70-1.30); EST Glomerular Filtration Rate 66 mL/min (>60); Est Glom Filt Rate - Afr Amer 80 mL/min (>60); Estimated Creatinine Clearance 72.46 ml/min; Glucose 91 mg/dL (74-106); Potassium 4.3 mmol/L (3.5-5.1); Sodium Level 141 mmol/L (136-145)
[2018-02-02 06:10] LABS: POSITIVE COUNT NO; POSITIVE DIFFERENTIAL NO; POSITIVE MORPHOLOGY NO
--- NOTE | 2018-02-02 07:43 | NURSING ---
This RN has reviewed and agrees with all documentation done by Sylvia WHITE. 02/01-02/02 7pm-7am
[2018-02-02] MEDS: DiphenhydrAMINE 25 MG Capsule 50 MG PO (08:04)
--- NOTE | 2018-02-02 09:07 | CL.D_ITS ---
Patient Name: NIYA ABDUL Study Date: 02/02/2018 Performing: Balwinder Dick MD Ht: 72.83 inches 185 cm : 1955 Wt: 255.74 lbs 116 kg Age: 62 Gender: male BSA: 2.38 PROCEDURE(S) PERFORMED [id number]-[id number]/[id number]/LV CLINICAL PROFILE AND INDICATIONS Heart Failure: NYHA Class: 2, Heart Failure Type: Systolic, Newly Diagnosed: Yes Stress/Imaging Stress Echocardiogram: Yes Result: Positive Intermediate RiskStress Echocardiogram : Positive Intermediate Risk CAD Presentations: Unstable angina. Comorbidities/Risk Factors: Hypertension Dyslipidemia CONCLUSIONS Non obstructive coronary arteries Cardiomyopathy: Congestive RECOMMENDATIONS D/c plavix, start cozaar 25mg daily, restart xeralto on 02/05/18, start amio 200mg daily, DCCV in 3 we eks. DESCRIPTION OF PROCEDURE The patient arrived to the procedure lab. The risks and benefits of the procedure as well as a full d escription of our services here and current unavailability of surgical backup were fully explained to the patient and/or their significant other prior to the catheterization. The Timeout was completed, verifying the correct patient and procedure. The patient's procedural site was prepped and draped in the usual fashion. Local anesthetic was given subcutaneously to right groin region with Lidocaine 2%. Using a modified Seldinger technique, arterial access was obtained via the right femoral artery, a 4 Fr sheath was inserted Left Coronary Artery selective angiography was performed in multiple views us ing a 4 Fr. JL5 catheter. Right Coronary Artery selective angiography was then performed in multiple views using a 4 Fr. 3DRC catheter. Left Ventriculography was performed in CAPELLAN projection using a 4 Fr . Pigtail catheter. LV to AO pullback pressures were then recorded.The arterial sheath was pulled and manual compression applied until hemostasis is achieved. CORONARY ANGIOGRAPHY DOMINANCE: Right Dominant LEFT HEART ASSESSMENT Left Ventricular Ejection Fraction: by LV Gram 40-45 % Global Hypokinesis - Moderate Depressed Left Ventricular systolic function LVEDP: 11 mmHg Normal Left Ventricular End Diastolic Pressure LEFT MAIN: Angiographically normal LEFT ANTERIOR DECENDING ARTERY: Mild luminal irregularities less than 30% CIRCUMFLEX ARTERY: Mild luminal irregularities less than 30% RIGHT CORONARY ARTERY: Mild luminal irregularities less than 30% COMPLICATIONS PROCEDURE MEDICATIONS Oxygen: 2 L/min via nasal cannula SUMMARY OF HEMODYNAMIC DATA Time AIR REST ECG 08:13:58 AO 108/79 (91) SA 08:44:20 LV 113/-13, 3 08:51:31 LV 115/-11, 3 08:51:38 LVp 121/-11, 5 08:51:53 AOp 118/78 (91) 08:51:58 Signed By Balwinder Dick MD On 02/02/2018 09:07:19 Balwinder Dick MD
[2018-02-02] MEDS: Pantoprazole Sodium 20 MG Tablet PO (10:46)
[2018-02-02] MEDS: Amiodarone 200 MG Tablet PO (10:47)
[2018-02-02] MEDS: Losartan Potassium 25 MG Tablet PO (10:47)
--- NOTE | 2018-02-02 11:54 | DCINST_ITS ---
- Discharge Diagnoses Current Active Problems: Current Active and Chronic Problems (Last Updated 01/26/18 @ 14:10 by Clotilde Bautista ) Chest pain (Acute) You will use the following diet at home:: Cardiac Your food should be the consistency of: Regular Your liquids should be the consistency of: Regular/Thin Discharge Activity: Return to Normal Activity Allergies/Adverse Reactions: Allergies No Known Allergies Allergy (Verified 01/23/18 10:46) Medications to take at Discharge albuterol sulfate HFA 90 mcg/actuation aerosol inhaler 2 puff INHALATION Q6H PRN 01/22/18 metoprolol succinate ER 25 mg tablet,extended release 24 hr 25 mg PO DAILY #30 tab.er.24h 01/23/18 levothyroxine 125 mcg capsule 125 mcg PO QDAY #30 cap 01/29/18 Omeprazole [Prilosec] 20 mg PO DAILY 02/01/18 Amiodarone HCl [Cordarone] 200 mg PO DAILY #30 tab 02/02/18 Aspirin E.C. [Ecotrin] 81 mg PO DAILY@0800 tablet 02/02/18 Atorvastatin Calcium [Lipitor] 80 mg PO QHS #30 tab 02/02/18 Losartan Potassium [Cozaar] 25 mg PO DAILY #30 tab 02/02/18 Rivaroxaban [Xarelto] 20 mg PO DAILY #30 tab 02/02/18 The following prescriptions were given: Amiodarone HCl [Cordarone] 200 mg PO DAILY #30 tab Atorvastatin Calcium [Lipitor] 80 mg PO QHS #30 tab Losartan Potassium [Cozaar] 25 mg PO DAILY #30 tab Primary Care Physician: Steff Carrington [Primary Care Provider] - Please follow up with your Primary Care Physician in: 2 weeks Test Results: Test results from this visit will be discussed in further detail at your follow- up appointment, if applicable. Please Follow Up With: Balwinder Dick MD - cardioversion When: 3 weeks Proposed Discharge Date: 02/02/18
--- NOTE | 2018-02-02 14:40 | DS.PCM_ITS ---
<Ciro Jon - Last Filed: 02/02/18 14:58> Discharge Date and Diagnosis - Problem List Patient Problems: Active and Suspected Problems (Last Updated 01/26/18 @ 14:10 by Clotilde Bautista) Chest pain (Acute) Date of Admission: 02/01/18 Date of Discharge: 02/02/18 - Primary Discharge Diagnosis Active and Suspected Problems (Last Updated 01/26/18 @ 14:10 by Clotilde Bautista) Unstable angina Congestive cardiomyopathy Mild CAD per Cath Recent new onset Afib HLD HTN GERD Hypothyroidism - Secondary Discharge Diagnosis Chronic Problems (Last Updated 01/26/18 @ 14:10 by Clotilde Bautista) Atrial enlargement, right (Chronic) Per echo 01/26/18 Cardiomyopathy (Chronic) EF 35% per echo 01/26/18 GERD (gastroesophageal reflux disease) (Chronic) Atrial fibrillation (Chronic) Hospital Course and Treatment Imaging Results: RAD/Chest 1 View (Portable) IMPRESSION: No acute cardiopulmonary disease or interval change. Stress Echo: Interpretation Summary The study was technically difficult. The estimated ejection fraction is 35 %. Normal, adequate, treadmill echocardiogram. Negative for ischemia by echocardiographic criteria. Patient developed subtle diffuse ST segment depression at peak exercise. No anginal symptoms noted. Patient had baseline moderate global LV dysfunction with an EF around 35% which improved to an ejection fraction around 45% at peak exercise. Poor exercise capacity for age. Test terminated due to dyspnea. Rare PVCs noted. Below average exercise capacity for age. Appropriate blood pressure response to exercise. No complications. CONCLUSIONS Non obstructive coronary arteries Cardiomyopathy: Congestive RECOMMENDATIONS D/c plavix, start cozaar 25mg daily, restart xeralto on 02/05/18, start amio 200mg daily, DCCV in 3 weeks. Consults: Cardiology: Kapil Operations: None Procedures: 2-D Echocardiogram, Cardiac catheterization, Stress test Summary of Care Provided: Physical exam on day of discharge: General: Resting comfortably NAD Psych: A/Ox3 normal affect HEENT: PEARRLA AT NC Neck: Supple NT CV: RRR no m/t/r/g/h Resp: CTA Abd: [id number] Soft NT no guarding or rigidity Ext: DP2+= no edema Skin: W/D normal turgor Lymph/Heme: No active bleeding or adenopathy Neuro: CN2-12 intact Hospital course: The patient is a 62 year old M with a hx of recently dx Afib, HTN, GERD, hypothyroidism, who presented to the ER with chest pain. He was having intermittent episodes every 2-3 hours and the episodes would last 5 minutes, and he had become diaphoretic during these episodes. He had recently started receiving care through doctor Dick for Afib and had been started on Xarelto and metoprolol. He was planning to have an outpatient cath in february. Dr. Dick was consulted and he was admitted to the PCU. He underwent a stress test with some ekg changes and severe dyspnea. He then had a heart cath with Dr. Dick which revealed mild CAD. No intervention was provided. He was started on asa, high dose statin, losartan, amiodarone, and will resume xarelto on the . He will have a cardioversion in 3 weeks. His TSH was high and his T4 low normal, so levothyroxine was slightly increased. He will need to follow up with Dr. Dick and his PCP. He was discharged home in stable condition. This patient was seen by Ciro Jon PA-C under the supervision of Doctor Valladares. [] Discharge Diet: Low fat/ Low Cholesterol, 2000 mg Sodium Diet Discharge Activity: Return to Normal Activity Home Medications: Medications to take at Discharge albuterol sulfate HFA 90 mcg/actuation aerosol inhaler 2 puff INHALATION Q6H PRN 01/22/18 metoprolol succinate ER 25 mg tablet,extended release 24 hr 25 mg PO DAILY #30 tab.er.24h 01/23/18 levothyroxine 125 mcg capsule 125 mcg PO QDAY #30 cap 01/29/18 Omeprazole [Prilosec] 20 mg PO DAILY 02/01/18 Amiodarone HCl [Cordarone] 200 mg PO DAILY #30 tab 02/02/18 Aspirin E.C. [Ecotrin] 81 mg PO DAILY@0800 tablet 02/02/18 Atorvastatin Calcium [Lipitor] 80 mg PO QHS #30 tab 02/02/18 Losartan Potassium [Cozaar] 25 mg PO DAILY #30 tab 02/02/18 Rivaroxaban [Xarelto] 20 mg PO DAILY #30 tab 02/02/18 Following Prescrptions Were Given to Patient: Amiodarone HCl [Cordarone] 200 mg PO DAILY #30 tab Atorvastatin Calcium [Lipitor] 80 mg PO QHS #30 tab Losartan Potassium [Cozaar] 25 mg PO DAILY #30 tab Primary Care Physician: Steff Carrington [Primary Care Provider] - Please follow up with your Primary Care Physician in: 2 weeks Please Follow Up With: Balwinder Dick MD When: 3 weeks Please Follow Up With: Steff Carrington Disposition: Home Minutes spent on discharge:: 35 Patient Condition:: Stable Medical Necessity - Tobacco Use Smoking Status: Never smoker Tobacco Use: Non-smoker Meaningful Use Info Meaningful Use Diagnoses (Choose all that apply): None applicable <Evelyn Valladares E - Last Filed: 02/02/18 15:14> Discharge Date and Diagnosis - Primary Discharge Diagnosis Active and Suspected Problems (Last Updated 01/26/18 @ 14:10 by Clotilde Bautista) #1 chest pain/EKG changes (Acute) #2 cardiomyopathy, nonischemic. - Secondary Discharge Diagnosis Chronic Problems (Last Updated 01/26/18 @ 14:10 by Clotilde Bautista) Atrial enlargement, right (Chronic) Per echo 01/26/18 Cardiomyopathy (Chronic) EF 35% per echo 01/26/18 GERD (gastroesophageal reflux disease) (Chronic) Atrial fibrillation (Chronic) Hospital Course and Treatment Summary of Care Provided: Hospitalist note: Discharge summary above reviewed and I agree with above discharge plan. This patient was admitted because of chest pain or shortness of breath, found to have subtle EKG changes without evidence of acute ischemic changes. His troponin was negative ?3. He underwent stress test that was terminated because of significant shortness of breath. Stress echocardiogram revealed ejection fraction of 35%. He underwent cardiac catheterization that revealed nonobstructive CAD and congestive cardiomyopathy. He had no interventions done. He was treated with aspirin, statins, beta blockers and losartan. Cardiology recommended medical treatment at this time. Patient discharged home in a stable medical condition, discharged on amiodarone which was started this admission, discharged on aspirin, beta blockers, losartan statins, instructed to resume taking Xarelto this coming Monday, February 05, 2018, recommended follow- up with PCP in 2 weeks and plan is to follow-up with cardiology in 3 weeks for cardioversion as outpatient. - Physical Exam General: Alert, Oriented x3, Cooperative, No apparent distress. HEENT: Atraumatic, PERRLA, EOMI. Neck: Supple, No JVD, Negative Carotid Bruits, Trachea Midline, Thyroid Normal. Lungs: Clear to auscultation, Normal air movement, No rhonchi, No wheeze, No rales. Cardiovascular: Regular rate, Regular Rhythm, Normal S1, Normal S2, PMI Normal. Abdomen: Bowel Sounds Present, Soft, Non Tender, Non-Distended, No Hepato- splenomegaly. Extremities: No clubbing, No cyanosis, No edema Skin: No rashes, No breakdown Neurological: Neuro grossly intact Vital Signs are stable. This note was generated with [employer] dictation software. It may contain incorrect words, spelling, and punctuation that were not noted in checking the note before signing. Minutes spent on discharge:: 28 Patient Condition:: Stable Meaningful Use Info Meaningful Use Diagnoses (Choose all that apply): None applicable Code Visit OBSV E&M: 42018 Observation care discharge
--- NOTE | 2018-02-02 15:35 | NURSING ---
Pt ambulated in [place] with this RN, post heart catheterization. No bleeding, bruising, or hematoma noted at heart cath site. Ric CASTLE
== END 2018-02-02 15:49 | disposition home or self-care (01) ==
LOC: ED 22:59 → PCU 02-01 00:27
PROVIDERS: Internal Medicine Cardiovascular Disease; Admitting Provider Hospitalist; Emergency Provider Emergency Medicine; Family Provider Nurse Practitioner; PCP Nurse Practitioner; Visit Provider Hospitalist
DX: R07.89 Other chest pain (principal); I48.2 Chronic atrial fibrillation; I42.8 Other cardiomyopathies; I25.110 Atherosclerotic heart disease of native coronary artery with unstable angina pectoris; I50.20 Unspecified systolic (congestive) heart failure; I11.0 Hypertensive heart disease with heart failure; E78.5 Hyperlipidemia, unspecified; E03.9 Hypothyroidism, unspecified; Z79.899 Other long term (current) drug therapy; K21.9 Gastro-esophageal reflux disease without esophagitis
CPT/HCPCS: 36415; 71045; 80048; 80061; 84484; 85025; 85027; 85610; 85730; 93005; 93017; 93350; 93458; 99218; 99284; A4216; C1769; C1894; G0378; Q9967

== ENCOUNTER → 2018-02-16 10:51 | Outpatient (CLI) | payer OTHER, SELFPAY ==
[2018-02-16 11:56] LABS: Free T3 2.5 pg/mL (2.18-3.98); PSA,Total - Annual Screen 1.68 ng/mL (0.00-4.00); T4 Free Direct 1.09 ng/dL (0.76-1.46); Thyroid Stim Hormone (TSH) 3.72 uIU/mL (0.358-3.74)
== END ==
PROVIDERS: Family Provider Nurse Practitioner; PCP Nurse Practitioner; Visit Provider Nurse Practitioner
DX: E03.9 Hypothyroidism, unspecified (principal); Z12.5 Encounter for screening for malignant neoplasm of prostate
CPT/HCPCS: 36415; 84153; 84439; 84443; 84481; G0103

== ENCOUNTER → 2018-03-02 10:59 | Day surgery (SDC) | payer OTHER, SELFPAY ==
[2018-01-29 12:11] LABS: Hematocrit 47.7 % (40-54); Hemoglobin 16.8 g/dl (13.0-16.5); Mean Corp Hgb Conc 35.2 g/gl (32-36); Mean Corpuscular Hgb 28.8 pg (27.0-32.0); Mean Corpuscular Volume 81.7 fL (80-94); Mean Platelet Vol. 10.2 fl (6.2-12.0); Platelet Count 177 K/mm3 (150-450); RBC Distribution Width CV 14.4 % (11.6-14.6); RBC Distribution Width SD 42.5 fl (35.1-43.9); Red Blood Count 5.84 M/mm3 (4.6-6.2); White Blood Count 9.6 K/mm3 (4.4-11.0)
[2018-01-29 12:16] LABS: Scan Indicated on CBC? Y/N NO
[2018-01-29 12:18] LABS: Partial Thromboplast Time 29.6 Seconds (24.1-36.2); Prothrombin Time (Protime)PT. 13.5 SECONDS (11.7-14.9)
[2018-01-29 12:26] LABS: Anion Gap 10 (5-15); BUN 18 mg/dL (7-18); BUN/Creat Ratio 16.7 RATIO (10-20); Calcium,Total 9.1 mg/dL (8.5-10.1); Chloride 109 mmol/L (98-107); Creatinine, Serum 1.08 mg/dL (0.70-1.30); EST Glomerular Filtration Rate 74 mL/min (>60); Est Glom Filt Rate - Afr Amer 90 mL/min (>60); Glucose 79 mg/dL (74-106); Potassium 4.4 mmol/L (3.5-5.1); Sodium Level 141 mmol/L (136-145)
--- NOTE | 2018-03-02 12:43 | PCM.OP.BLANK ---
Problem List (1) Chest pain Status: Acute (2) Atherosclerotic heart disease of [place] coronary artery without angina pectoris Status: Chronic Comment: Nonobstructive coronary arteries (<30% stenosis in LAD, CX, and RCA: left main normal) per [facility] 02/02/[address] Dick @ [facility] (3) Atrial fibrillation Status: Chronic Operative Report Date of Procedure: 03/02/18 DC cardioversion report: Patient is a 62-year-old gentleman who presented initially with LV dysfunction, nonischemic cardiomyopathy after left heart catheterization performed by myself, showed nonobstructive coronary artery disease and an EF around 35-40%. He was also found to be in atrial flutter of unknown duration. Patient apparently had a DC cardioversion which was not successful, and was started on amiodarone in addition to anticoagulation therapy. Once adequate loading with amiodarone was completed, he was heard back for DC cardioversion. The risks/benefits of the procedure were thoroughly explained to the patient and informed consent was obtained. The deferred later pads were placed in the AP position. With the assistance of Dr. Amilcar Jane the patient was given a total of 6 mg of etomidate. Once adequate sedation was obtained, the patient received a single biphasic synchronized 200 J shock which converted from atrial flutter to sinus rhythm/sinus bradycardia. This rhythm remained durable, and the pacer pads were removed. The patient spontaneously awoke, moves all 4 extremities, and tolerated the procedure well. Conclusions successful amiodarone assisted DC cardioversion with a single biphasic 200 J synchronized shock which converted from atrial flutter to normal sinus rhythm/sinus bradycardia. Recommendations: At this point the patient will continue all medical therapy going forward. He will be enrolled in cardiac rehab as well as to be evaluated with a sleep study for what appears to be obstructive sleep apnea which may be contributing to his atrial flutter. Patient tolerated procedure well. No complications. Many thanks to Dr. Amilcar Jane for his assistance. Code Visit [id number]: 80683 Cardioversion electric ext
--- NOTE | 2018-03-02 13:28 | OP.PCM_ITS ---
Problem List (1) Atrial enlargement, right Status: Chronic Comment: Per echo 01/26/18 (2) Atrial fibrillation Status: Chronic (3) GERD (gastroesophageal reflux disease) Status: Chronic (4) Nonischemic cardiomyopathy Status: Chronic Comment: EF 35% per echo 01/26/18 Operative Report Date of Procedure: 03/02/18 - Conscious sedation CONSCIOUS SEDATION REPORT BRIEF HISTORY OF PRESENT ILLNESS: The patient is a 62-year-old male who presented to [facility] for an elective outpatient cardioversion due to underlying atrial fibrillation. The patient reports no PO intake since midnight. The patient does not have a history of obstructive sleep apnea per patient. The patient reports no history of smoking and COPD. The patient denies any recent constitutional symptoms such as fevers, chills, nausea or vomiting. The patient denies previous anesthetic complications. Patient's last known ejection fraction is approximately 35%. PHYSICAL EXAMINATION: VITAL SIGNS: Reviewed and were acceptable. GENERAL: The patient is an obese male, in no apparent distress, speaking in full sentences. HEENT: Normocephalic, atraumatic. Mucous membranes are moist and pink. Good mouth opening noted. Trachea is midline. Good neck mobility. MP III CHEST: S1, S2 irregularly irregular. No murmurs, rubs or gallops were noted. LUNGS: Clear to auscultation bilaterally without appreciable wheezes, rales or rhonchi. ABDOMEN: Soft, nontender, nondistended. Positive bowel sounds. EXTREMITIES: There is no clubbing, cyanosis or edema. ASA Class: II DESCRIPTION OF PROCEDURE: After confirmation of informed consent, the patient's anesthesia plan was reviewed in detail. Etomidate was chosen. Risks and benefits were reviewed and the patient agreed to proceed. At 12:16 PM, the patient was given 4 mg of etomidate. The patient required a total of 6 mg of etomidate throughout the procedure to achieve appropriate sedation. The patient achieved an appropriate level of sedation and received 1 attempt s synchronized cardioversion, at [address] Dick at the bedside. This was successful in achieving normal sinus rhythm. The patient was monitored until 12:24 PM, at which time the patient reached their baseline mental status and function. The patient tolerated the procedure well. COMPLICATIONS: None ESTIMATED BLOOD LOSS: None RECOMMENDATIONS: Okay to recover in usual fashion. Code Visit 9xxxx: Other Procedure See Report - 56354 -8 minutes of conscious sedation
== END ==
PROVIDERS: Family Provider Nurse Practitioner; PCP Nurse Practitioner; Visit Provider Internal Medicine Cardiovascular Disease
DX: I48.2 Chronic atrial fibrillation (principal); I42.9 Cardiomyopathy, unspecified; I25.10 Atherosclerotic heart disease of native coronary artery without angina pectoris; K21.9 Gastro-esophageal reflux disease without esophagitis; Z79.02 Long term (current) use of antithrombotics/antiplatelets; Z79.899 Other long term (current) drug therapy
CPT/HCPCS: 36415; 80048; 85027; 85610; 85730; 92960; 93005; J7040

== ENCOUNTER → 2018-03-13 07:59 | Outpatient (CLI) | payer OTHER, SELFPAY ==
--- NOTE | 2018-03-13 08:05 | PCM.CR.ITP ---
General Information - General Information Admitting Diagnosis: Cardiomyopathy, congestive heart failure w/ LVEF 35% < - Education/Goals Individual Counseling: Initial Assessment: Overweight/Obesity Cardiac Rehabilitation Goals: 1. Maintain the individual as the primary focus of care. 2. To improve the patient's quality of life. 3. Identification of cardiac risk factors and provide cardiac risk factor management. 4. Enhance the psychosocial status of the patient. 5. Reconditioning enough to allow the patient to resume customary activities. 6. Control symptoms of cardiac disease Scale for measuring improvement of personal goals: Enter appropriate number in Comments. 2 = Unchanged. 3 = Slightly Better. 4 = Moderate Improvement. 5 = Met my Goal Personal Goals: Initial Assessment: Participate in home exercise program, Improve knowledge of cardiac disease, Improve muscle strength and endurance, Control risk factors (learn risk factor modification) Exercise - Initial Assessment - Visit Date of Eval: 03/13/18 - eSTABLISHED itp; START CR ON 03/14/18 - Stages of Change Stages of Change:: Action - Exercise Prescription Mode:: Treadmill, Rower, Airdyne Angina with exercise?: No Target Heart Rate:: 98-105 - Hypertension Do any of the following apply?: No Resting Blood Pressure:: 118/72 - Intervention Home Exercise/Activity Goal:: Moderate Exercise 30 min/day x 5 days/wk - Education Goals:: Warm-up, RPE EVELYN Scale, S/S, Safe Exercise, Self-Monitoring - Exercise Program Goals Exercise Program Goals: Aerobic Activity >30 min Nutrition - Initial Assessment - Program Goals Nutrition Program Goals: LDL <70. Total Cholesterol <200. HDL >45. Triglycerides <150. HgbA1C <7%. BMI <25 - Visit Date of Assessment:: 03/13/18 - Stages of Change Stages of Change:: Action - Diabetes Diabetes:: No Insulin: No Non-Insulin Dependent?: No Do you monitor your blood sugar at home?: No - Weight Management Height: 6 ft 0.83 in Weight:: 255 lb 11.84 oz Body Fat %:: 34.6 - Intervention Referral to dietitian:: Yes - Patient could benefit from Cardiac Diet and weight loss. Referral to Diabetic Clinic:: No Will attend diet classes:: Yes - Education Gave educational materials for:: Healthy eating Tobacco - Initial Assessment - Program Goals Tobacco Program Goals: Complete smoking cessation. Attend education classes. Improve Knowledge Test score - Stage of Change Stages of Change:: Action - Learning Barriers Learning Barriers: Ready to Learn - Family Support Do you have family support?: Yes - Tobacco Use Tobacco Use: Non-smoker Do you use smokeless tobacco?: No - Intervention Smoking Cessation Referral:: No Individual Education/Counseling:: No Education Schedule Given:: Yes - Education Gave educational material for:: Coronary artery disease, Risk factors, Sexuality, Medical compliance, Cardiac A&P, Angina signs & symptoms Psychosocial - Initial Assess - Target Goals Target Goals: Assess presence or absence of depression. Using a valid screening tool, maximizes coping skills. Positive support system - Stages of Change Stages of Change:: Action - Psychosocial Test Tool Used:: HANDS Depression Questionnaire - Intervention PS - Interventions: Yes Attend Stress Management Classes, No Referral to Mental Health, No Referral to [facility] Case Management, No Referral to Physician, No Uses Stress Management Skills - Education Gave educational materials for:: Coping techniques, Signs & symptoms of depression, Stress management, Relaxation techniques - Patient/Program Goal Preventative Medication(s):: Aspirin, Beta jose a, Statin/lipid - Assistive Devices Assistive Devices:: None Fall Risk Assessed:: Yes Patient Health Questionnaire Initial Assessment 1. Little interest or pleasure in doing things: Not at all 2. Feeling down, depressed, or hopeless: Not at all 3. Trouble falling or staying asleep, or sleeping too much: Several days 4. Feeling tired or having little energy: Not at all 5. Poor appetite or overeating: Not at all 6. Feeling bad about yourself -- or that you are a failure or have let yourself or your family down: Not at all 7. Trouble concentrating on things, such as reading the newspaper or watching television: Not at all 8. Moving or speaking so slowly that other people could have noticed. Or the opposite - being so fidgety or restless that you have been moving around a lot more than usual: Not at all 9. Thoughts that you would be better off , or of hurting yourself in some way: Not at all How difficult have these problems made it for you to do your work, take care of things at home, or get along with other people?: Not difficult at all Total Score: 1 AMPARO-Q SV Test - Statements CAD is a disease of the arteries in the heart: False Examples of risk factors for heart disease: I Don't Know Angina is chest pain or discomfort: True The benefits of resistance training include: True Eating more meat and dairy products: False Anti-platelet medications such as aspirin are important: I Don't Know The only effective way to manage stress: False An exercise warm-up slowly increases heart rate: I Don't Know Prepared, processed foods usually have high sodium: True Depression is common after a heart attack: I Don't Know The statin medications lower cholesterol: I Don't Know To control blood pressure, lower the amount of sodium: I Don't Know If someone gets chest discomfort during walking: False Transfats are partially hydrogenated vegetable oils: True Sleep apnea that is not treated increases the risk: I Don't Know To control cholesterol, one should become a vegetarian: False Someone knows if he/she is exercising at the right level: I Don't Know Diabetes cannot be prevented with exercise & health eating: False Stress is a large risk for heart attack: True A diet that can help lower blood pressure is rich in: True - Total Score Total Correct Responses: 12 Self-Efficacy Initial Assessment We would like to know how confident you are in doing certain activities. Please select your confidence level for:: Select your confidence level for the following using the scale 1-10 where 1 is not at all confident and 10 is totally confident. Your score is the average of all 6 responses. Fatigue: How confident are you that you can keep the fatigue caused by your disease from interfering with the things you want to do? Select Number: 9 Physical Discomfort or Pain: How confident are you that you can keep the physical discomfort or pain of your disease from interfering with the things you want to do? Select Number: 8 Emotional Distress: How confident are you that you can keep the emotional distress caused by your disease from interfering with the things you want to do? Select Number: 8 Other Symptoms or Health Problems: How confident are you that you can keep other symptoms or health problems from interfering with the things you want to do? Select Number: 8 Different Tasks and Activities: How confident are you that you can do the different tasks and activities needed to manage your health condition so as to reduce your need to see a doctor? Select Number: 8 Medication: How confident are you that you can do things other than just taking medication to reduce how much your illness affects your everyday life? Select Number: 8 Total Score:: 8 Nutrition Survey - Nutrition Survey Instructions Scoring Instructions: Scoring is as follows: Yes = 1 points. No = 0 point. Patient score that is >/=12 is considered to be at potential nutritional risk and could benefit from a referral to a registered dietitian. - Nutrition Survey Initial Have you lost >10 lbs over the past 2 months without trying?: No Are you following a special diet at home for diabetes, low fat, or low salt?: No Are you interested in meeting with a dietitian for help understanding your diet?: No Do you eat less than 3 meals a day?: No Do you eat fatty meats (bruno, sausage, ribs, etc), fried foods, desserts, large amounts of salad dressings, margarine, butter, or cheese most days?: Yes Do you have food allergies? [Enter types in comment field]: No Do you eat in restaurants more than 3 times a week?: No Do you season food with salt, seasoning salt, or garlic salt?: No Do you used canned, boxed, frozen meals, or soups, seasoning packets?: Yes Total Score:: 2
--- NOTE | 2018-03-13 08:06 | PCM.CR.HP2 ---
CR - History & Physical - General Arrival date:: 03/13/18 Arrival time:: 08:06 Date of Referral:: 03/02/18 Date of CR Evaluation:: 03/13/18 Referring Physician: Dr. Balwinder Dick Primary Diagnosis: Non-ischemic Cardiomyopathy CHF EF<35% - History of Present Cardiac Event Onset Date: Enter Onset Date of cardiac illnesses in Comment field below Heart Failure EF <35%:: Yes Type of Symptoms:: 11 of January, atrial fibrillation, more fatigued than usual. Interventions with present event:: Cardioversion 10 days ago. So far been in normal rhythm. - Medications Home Medications: Ambulatory Orders Medication Instructions Recorded metoprolol succinate ER 25 mg 25 mg PO DAILY #30 tab.er.24h 01/23/18 tablet,extended release 24 hr levothyroxine 125 mcg capsule 125 mcg PO QDAY #30 cap 01/29/18 Omeprazole [Prilosec] 20 mg PO DAILY 02/01/18 Rivaroxaban [Xarelto] 20 mg PO DAILY #30 tab 02/02/18 aspirin 81 mg tablet,delayed 81 mg PO QDAY 02/16/18 release czqqztvsapj-cfz-ccxvkgili-hrb tab PO 02/16/18 149-hyalur 500 mg-500 mg-66.7 mg tablet losartan 25 mg tablet 25 mg PO DAILY #90 tab 02/16/18 amiodarone 200 mg tablet 200 mg PO DAILY #30 tab 02/26/18 atorvastatin 80 mg tablet 80 mg PO QHS #30 tab 02/26/18 - Allergies Allergies/Adverse Reactions: Allergies No Known Allergies Allergy (Verified 02/16/18 08:22) - Sleep Disorder Evaluation Hx of Sleep Apnea: Yes Do you snore loudly (louder than talking or can be heard through closed doors)?: Yes - Dr. Dick wants him to be tested. Do you often feel tired/ fatigued/ sleepy during daytime?: No - much improved than prior to cardioversion. Has anyone observed you stop breathing during sleep?: No History of Hypertension (for STOP score): No STOP Results: Negative Advanced Directives - Advanced Directives Power of Branch Sales And Service Representative: Yes Living Will: Yes Advance Directives Information Provided: No Advance Directives on File: Yes DNR Order?:: No - MOLST See MOLST form: No Past Medical History - Past Medical Illness Medical History: Past Medical History (Last Updated 03/02/18 @ 13:19 by Clotilde Bautista) Snoring (Chronic) R06.83 Daytime somnolence (Chronic) R40.0 Nonischemic cardiomyopathy (Chronic) I42.8 EF 35% per echo 01/26/18 Atherosclerotic heart disease of [place] coronary artery without angina pectoris (Chronic) I25.10 Nonobstructive coronary arteries (<30% stenosis in LAD, CX, and RCA: left main normal) per [facility] 02/02/[address] Dick @ [facility] Atrial enlargement, right (Chronic) I51.7 Per echo 01/26/18 GERD (gastroesophageal reflux disease) (Chronic) K21.9 Atrial fibrillation (Chronic) I48.91 - Past Surgical History Surgical History: Past Surgical History (Last Reviewed 02/16/18 @ 08:22 by Clotilde Bautista) History of left heart catheterization (Chronic) Onset Date: 02/02/18 Z98.890 Nonobstructive coronary arteries (<30% stenosis in LAD, CX, and RCA: left main normal) per [facility] 02/02/[address] Dick @ [facility] H/O lateral meniscus repair of left knee Onset Date: ~[address] 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 Recreational Activities: I am able to engage in all my recreational activities - now that have had cardioversion able to do more Social Environment - Status Marital Status: - Current Living Arrangements Living Environment:: Family - Children How many children do you have?: 3 Do any of your children live nearby?: Yes - 1 in [place] in [place] - Safety Do you feel safe in your surroundings?: Yes - Assistance Do you need any assistance at home?: none Review of Systems - Review of Systems Hints: Right click = Denies (Slash). Left click = Reports ([place]) Review of Present Symptoms: Reports: Shortness of Breath with Exertion - much improved since cardioversion but still noticable., Fatigue, Heart Arrhythmia/Irregularities - atrial fibrillation, Appetite - Normal, Sleep - Normal. Denies: Shortness of Breath at Rest, Angina - previously was experienceing feeling of pressure., Dizziness/Lightheadedness, Appetite - Special Diet, Sexual Changes - Pain Is Patient Pain Free?: Yes Pain Location: none Risk Factor Assessment - Chief Complaint Chief Complaint: Patient is a 62 year old male patient of Dr. 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 He recently had a cardioversion done 10 days ago for the atrial fibrillation and since has remained in SR. 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 - Risk Stratification Risk Guidelines: Lowest Risk: Risk Factor for Smoking, Risk Factor for Dyslipidemia, Risk Factor for Diabetes, Risk Factor for Hypertension, Risk Factor for Sedentary Lifestyle, Risk Factor for Depression, Highest Risk: Risk Factor for Obesity - For Smoking Smoking Risk Guidelines: Smoking Low Risk: None or quit greater than 6 months ago. Smoking Moderate Risk: Smoker or quit 6 months or less ago. Smoking High Risk: Smoker - For Dyslipidemia Dyslipidemia Risk Guidelines: Low Risk: Moderate Risk: High Risk: 15-25% fat 25.1-29% fat >/= 30% fat. <7% sat fat 7-9% sat fat >9% sat fat. <150 mg chol 150-299 mg chol >/= 300 mg chol. LDL <100 LDL 100-129 LDL >/= 130. Chol/HDL ratio <5.0 Chol/HDL ratio 5.0-6.0 Chol/HDL ratio >6.0. Triglycerides <100 Triglycerides 100-149 Triglycerides >/= 150 - For Diabetes Mellitus Diabetes Risk Guidelines: Diabetes Low Risk: HgA1c <6.5% and/or FBG <120. Diabetes Moderate Risk: HgA1c 6.6-7.9% and/or FBG 120-180. Diabetes High Risk: HgA1c >/= 8% and/or FBG >180 - For Obesity/Overweight Obesity/Overweight Risk Guidelines: Obesity Low Risk: BMI <25.0. Obesity Moderate Risk: BMI 25-29.9. Obesity High Risk: BMI >/= 30.0 - For Hypertension Hypertension Risk Guidelines: Hypertension Low Risk: Systolic <120 and Diastolic <80. Hypertension Moderate Risk: Systolic 120-139 and Diastolic 80-89. Hypertension High Risk: Systolic >/= 140 and Diastolic >/= 90 - For Sedentary Lifestyle Sedentary Lifestyle Risk Guidelines: Sedentary Lifestyle Low Risk: >/= 1,500 kcal/week. Sedentary Lifestyle Moderate Risk: 700-1,499 kcal/week. Sedentary Lifestyle High Risk: < 700 kcal/week - For Depression Depression Risk Guidelines: Depression Low Risk: Not clinically depressed. Depression Moderate Risk: Mildly depressed. 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 What do you see as the benefits of succesfully completing the program? In other words, what do you hope to get out of participating in the program?: guess be strengthen the heart, making more efficient. Are there issues you are dealing with that will interfere with completing the program?: none Do you have a spouse or signficant other, family or friends who will help support you to complete the program?: yes, excellent.
--- NOTE | 2018-03-13 08:11 | CR.HP_ITS ---
CR - History & Physical - General Arrival date:: 03/13/18 Arrival time:: 08:06 Date of Referral:: 03/02/18 Date of CR Evaluation:: 03/13/18 Referring Physician: Dr. Balwinder Dick Primary Diagnosis: Non-ischemic Cardiomyopathy CHF EF<35% - History of Present Cardiac Event Onset Date: Enter Onset Date of cardiac illnesses in Comment field below Heart Failure EF <35%:: Yes Type of Symptoms:: 11 of January, atrial fibrillation, more fatigued than usual. Interventions with present event:: Cardioversion 10 days ago. So far been in normal rhythm. - Medications Home Medications: Ambulatory Orders Medication Instructions Recorded metoprolol succinate ER 25 mg 25 mg PO DAILY #30 tab.er.24h 01/23/18 tablet,extended release 24 hr levothyroxine 125 mcg capsule 125 mcg PO QDAY #30 cap 01/29/18 Omeprazole [Prilosec] 20 mg PO DAILY 02/01/18 Rivaroxaban [Xarelto] 20 mg PO DAILY #30 tab 02/02/18 aspirin 81 mg tablet,delayed 81 mg PO QDAY 02/16/18 release alvxukicuzi-odd-npgbknehg-hrb tab PO 02/16/18 149-hyalur 500 mg-500 mg-66.7 mg tablet losartan 25 mg tablet 25 mg PO DAILY #90 tab 02/16/18 amiodarone 200 mg tablet 200 mg PO DAILY #30 tab 02/26/18 atorvastatin 80 mg tablet 80 mg PO QHS #30 tab 02/26/18 - Allergies Allergies/Adverse Reactions: Allergies No Known Allergies Allergy (Verified 02/16/18 08:22) - Sleep Disorder Evaluation Hx of Sleep Apnea: Yes Do you snore loudly (louder than talking or can be heard through closed doors)? : Yes - Dr. Dick wants him to be tested. Do you often feel tired/ fatigued/ sleepy during daytime?: No - much improved than prior to cardioversion. Has anyone observed you stop breathing during sleep?: No History of Hypertension (for STOP score): No STOP Results: Negative Advanced Directives - Advanced Directives Power of Dial Lathe Operator: Yes Living Will: Yes Advance Directives Information Provided: No Advance Directives on File: Yes DNR Order?:: No - MOLST See MOLST form: No Past Medical History - Past Medical Illness Medical History: Past Medical History (Last Updated 03/02/18 @ 13:19 by Clotilde Bautista) Snoring (Chronic) R06.83 Daytime somnolence (Chronic) R40.0 Nonischemic cardiomyopathy (Chronic) I42.8 EF 35% per echo 01/26/18 Atherosclerotic heart disease of [place] coronary artery without angina pectoris (Chronic) I25.10 Nonobstructive coronary arteries (<30% stenosis in LAD, CX, and RCA: left main normal) per [facility] 02/02/[address] Dick @ [facility] Atrial enlargement, right (Chronic) I51.7 Per echo 01/26/18 GERD (gastroesophageal reflux disease) (Chronic) K21.9 Atrial fibrillation (Chronic) I48.91 - Past Surgical History Surgical History: Past Surgical History (Last Reviewed 02/16/18 @ 08:22 by Clotilde Bautista) History of left heart catheterization (Chronic) Onset Date: 02/02/18 Z98.890 Nonobstructive coronary arteries (<30% stenosis in LAD, CX, and RCA: left main normal) per [facility] 02/02/[address] Dick @ [facility] H/O lateral meniscus repair of left knee Onset Date: ~[address] 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 Recreational Activities: I am able to engage in all my recreational activities - now that have had cardioversion able to do more Social Environment - Status Marital Status: - Current Living Arrangements Living Environment:: Family - Children How many children do you have?: 3 Do any of your children live nearby?: Yes - 1 in [place] - Safety Do you feel safe in your surroundings?: Yes - Assistance Do you need any assistance at home?: none Review of Systems - Review of Systems Hints: Right click = Denies (Slash). Left click = Reports ([place]) Review of Present Symptoms: Reports: Shortness of Breath with Exertion - much improved since cardioversion but still noticable., Fatigue, Heart Arrhythmia/ Irregularities - atrial fibrillation, Appetite - Normal, Sleep - Normal. 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 He recently had a cardioversion done 10 days ago for the atrial fibrillation and since has remained in SR. 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 - Risk Stratification Risk Guidelines: Lowest Risk: Risk Factor for Smoking, Risk Factor for Dyslipidemia, Risk Factor for Diabetes, Risk Factor for Hypertension, Risk Factor for Sedentary Lifestyle, Risk Factor for Depression, Highest Risk: Risk Factor for Obesity - For Smoking Smoking Risk Guidelines: Smoking Low Risk: None or quit greater than 6 months ago. Smoking Moderate Risk: Smoker or quit 6 months or less ago. Smoking High Risk: Smoker - For Dyslipidemia Dyslipidemia Risk Guidelines: Low Risk: Moderate Risk: High Risk: 15-25% fat 25.1-29% fat >/= 30% fat. <7% sat fat 7-9% sat fat >9% sat fat. <150 mg chol 150-299 mg chol >/= 300 mg chol. LDL <100 LDL 100-129 LDL >/= 130. Chol/HDL ratio <5.0 Chol/HDL ratio 5.0-6.0 Chol/HDL ratio >6.0. Triglycerides <100 Triglycerides 100-149 Triglycerides >/= 150 - For Diabetes Mellitus Diabetes Risk Guidelines: Diabetes Low Risk: HgA1c <6.5% and/or FBG <120. Diabetes Moderate Risk: HgA1c 6.6-7.9% and/or FBG 120-180. Diabetes High Risk: HgA1c >/= 8% and/or FBG >180 - For Obesity/Overweight Obesity/Overweight Risk Guidelines: Obesity Low Risk: BMI <25.0. Obesity Moderate Risk: BMI 25-29.9. Obesity High Risk: BMI >/= 30.0 - For Hypertension Hypertension Risk Guidelines: Hypertension Low Risk: Systolic <120 and Diastolic <80. Hypertension Moderate Risk: Systolic 120-139 and Diastolic 80-89. Hypertension High Risk: Systolic >/= 140 and Diastolic >/= 90 - For Sedentary Lifestyle Sedentary Lifestyle Risk Guidelines: Sedentary Lifestyle Low Risk: >/= 1 ,500 kcal/week. Sedentary Lifestyle Moderate Risk: 700-1,499 kcal/week. Sedentary Lifestyle High Risk: < 700 kcal/week - For Depression Depression Risk Guidelines: Depression Low Risk: Not clinically depressed. Depression Moderate Risk: Mildly depressed. 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 What do you see as the benefits of succesfully completing the program? In other words, what do you hope to get out of participating in the program?: guess be strengthen the heart, making more efficient. Are there issues you are dealing with that will interfere with completing the program?: none Do you have a spouse or signficant other, family or friends who will help support you to complete the program?: yes, excellent.
[2018-03-13 08:23] VITALS: BP 118/72; PULSE 52; RESP 16; TEMP 37.1; O2SAT 94; BMI 34.5
[2018-03-13 09:17] VITALS: BP 118/72
== END ==
PROVIDERS: Family Provider Nurse Practitioner; PCP Nurse Practitioner; Visit Provider Internal Medicine Cardiovascular Disease
DX: I50.9 Heart failure, unspecified (principal); I42.9 Cardiomyopathy, unspecified

== ENCOUNTER 2018-04-06 08:00 | Outpatient (RCR) | payer OTHER, SELFPAY | END 2018-04-08 23:59 | LOC: CR 08:00 | PROVIDERS: Family Provider Nurse Practitioner; PCP Nurse Practitioner; Visit Provider Internal Medicine Cardiovascular Disease | DX: I42.8 Other cardiomyopathies (principal) | CPT/HCPCS: 93798 ==

== ENCOUNTER → 2018-04-07 10:03 | Outpatient (CLI) | payer OTHER, SELFPAY ==
[2018-04-07 12:00] LABS: Free T3 2.5 pg/mL (2.18-3.98); PSA,Total - Annual Screen 1.06 ng/mL (0.00-4.00); T4 Free Direct 1.17 ng/dL (0.76-1.46); T4 Total, Thyroxin 12.4 ug/dL (4.5-12.1); Thyroid Stim Hormone (TSH) 4.02 uIU/mL (0.358-3.74)
== END ==
PROVIDERS: Internal Medicine Cardiovascular Disease; Family Provider Nurse Practitioner; PCP Nurse Practitioner; Referring Provider Nurse Practitioner; Visit Provider Nurse Practitioner
DX: E03.9 Hypothyroidism, unspecified (principal); Z12.5 Encounter for screening for malignant neoplasm of prostate
CPT/HCPCS: 36415; 84153; 84436; 84439; 84443; 84481; G0103

== ENCOUNTER 2018-05-09 08:00 | Outpatient (RCR) | payer OTHER, SELFPAY ==
--- NOTE | 2018-04-16 08:01 | PCM.CR.ITP ---
Exercise - 30-day Assessment - Visit Date of Eval: 04/16/18 Session #:: 13 - Stages of Change Stages of Change:: Action - Exercise Prescription Mode:: Treadmill, Rower, Airdyne, NuStep Frequency (x/week): 3 Duration:: 35 METs - Progression: 0.5-1 MET as tolerated: 5 Target Heart Rate:: 112-120 - Hypertension Resting Blood Pressure:: 130/70 Peak Exercise Blood Pressure:: 164/84 Medication Changes:: No - Intervention Home Exercise/Activity Goal:: Moderate Exercise 30 min/day x 5 days/wk - Education Goals:: Warm-up, RPE EVELYN Scale, S/S, Safe Exercise, Self-Monitoring - Exercise Program Goals Exercise Program Goals: Aerobic Activity >30 min Nutrition - Initial Assessment - Program Goals Nutrition Program Goals: LDL <70. Total Cholesterol <200. HDL >45. Triglycerides <150. HgbA1C <7%. BMI <25 - Diabetes Do you monitor your blood sugar at home?: No Nutrition - 30-Day Assessment - Program Goals Nutrition Program Goals: LDL <70. Total Cholesterol <200. HDL >45. Triglycerides <150. HgbA1C <7%. BMI <25 - Visit Date of Eval: 04/16/18 - Stages of Change Stages of Change:: Action - Lipids Has the patient seen the dietitian?: No - Diabetes Diabetes:: No Insulin: No Non-Insulin Dependent?: No - Weight Management Weight:: 264 lb - stable - Intervention Referral to dietitian:: No Referral to Diabetic Clinic:: No Will attend diet classes:: Yes - Education Attended class for:: Healthy eating Tobacco - Initial Assessment - Program Goals Tobacco Program Goals: Complete smoking cessation. Attend education classes. Improve Knowledge Test score - Learning Barriers Learning Barriers: Ready to Learn Tobacco - 30-Day Assessment - Program Goals Tobacco Program Goals: Complete smoking cessation. Attend education classes. Improve Knowledge Test score - Stage of Change Stages of Change:: Action - Learning Barriers Learning Barriers: Participates in education - Family Support Do you have family support?: Yes - Tobacco Use Tobacco Use: Non-smoker Do you use smokeless tobacco?: No - Intervention Smoking Cessation Referral:: No Individual Education/Counseling:: No Education Schedule Given:: Yes - Education Attended class for:: Coronary artery disease, Risk factors, Sexuality, Medical compliance, Cardiac A&P, Angina signs & symptoms Psychosocial - Initial Assess - Target Goals Target Goals: Assess presence or absence of depression. Using a valid screening tool, maximizes coping skills. Positive support system - Psychosocial Test Tool Used:: HANDS Depression Questionnaire - Assistive Devices Fall Risk Assessed:: Yes Psychosocial - 30-Day Assess - Target Goals Target Goals: Assess presence or absence of depression. Using a valid screening tool, maximizes coping skills. Positive support system - Stages of Change Stages of Change:: Action - Psychosocial Test Tool Used:: HANDS Depression Questionnaire - Intervention PS - Interventions: Yes Attend Stress Management Classes, No Referral to Mental Health, No Referral to [facility] Case Management, No Referral to Physician, No Uses Stress Management Skills - Education Attended classes for:: Coping techniques, Signs & symptoms of depression, Stress management, Relaxation techniques - Patient/Program Goal Preventative Medication(s):: Aspirin, Clopidogrel, Beta jose a, Statin/lipid - Assistive Devices Assistive Devices:: None Fall Risk Assessed:: Yes Patient Health Questionnaire 30-Day Re-eval Assessment 1. Little interest or pleasure in doing things: Not at all 2. Feeling down, depressed, or hopeless: Not at all 3. Trouble falling or staying asleep, or sleeping too much: Several days 4. Feeling tired or having little energy: Not at all 5. Poor appetite or overeating: Not at all 6. Feeling bad about yourself -- or that you are a failure or have let yourself or your family down: Not at all 7. Trouble concentrating on things, such as reading the newspaper or watching television: Not at all 8. Moving or speaking so slowly that other people could have noticed. Or the opposite - being so fidgety or restless that you have been moving around a lot more than usual: Not at all 9. Thoughts that you would be better off , or of hurting yourself in some way: Not at all How difficult have these problems made it for you to do your work, take care of things at home, or get along with other people?: Not difficult at all Total Score: 1 Self-Efficacy 30-Day Re-eval Assessment We would like to know how confident you are in doing certain activities. Please select your confidence level for:: Select your confidence level for the following using the scale 1-10 where 1 is not at all confident and 10 is totally confident. Your score is the average of all 6 responses. Fatigue: How confident are you that you can keep the fatigue caused by your disease from interfering with the things you want to do? Select Number: 9 Physical Discomfort or Pain: How confident are you that you can keep the physical discomfort or pain of your disease from interfering with the things you want to do? Select Number: 9 Emotional Distress: How confident are you that you can keep the emotional distress caused by your disease from interfering with the things you want to do? Select Number: 9 Other Symptoms or Health Problems: How confident are you that you can keep other symptoms or health problems from interfering with the things you want to do? Select Number: 9 Different Tasks and Activities: How confident are you that you can do the different tasks and activities needed to manage your health condition so as to reduce your need to see a doctor? Select Number: 9 Medication: How confident are you that you can do things other than just taking medication to reduce how much your illness affects your everyday life? Select Number: 9 Total Score:: 9
[2018-04-16 08:04] VITALS: BP 130/70; BP 164/84
== END 2018-05-09 23:59 ==
LOC: CR 08:00
PROVIDERS: Family Provider Nurse Practitioner; PCP Nurse Practitioner; Referring Provider Internal Medicine Cardiovascular Disease; Visit Provider Internal Medicine Cardiovascular Disease
DX: I42.8 Other cardiomyopathies (principal)
CPT/HCPCS: 93798

== ENCOUNTER 2018-05-18 09:20 | Outpatient (RCR) | payer OTHER, SELFPAY | END 2018-06-08 23:59 | LOC: NS 09:20 | PROVIDERS: Family Provider Nurse Practitioner; PCP Nurse Practitioner; Visit Provider Internal Medicine Cardiovascular Disease | DX: E66.9 Obesity, unspecified (principal); Z68.33 Body mass index [BMI] 33.0-33.9, adult; I48.91 Unspecified atrial fibrillation; I42.9 Cardiomyopathy, unspecified; Z71.3 Dietary counseling and surveillance | CPT/HCPCS: 97802 ==

== ENCOUNTER 2018-06-08 08:00 | Outpatient (RCR) | payer OTHER, SELFPAY ==
[2018-05-10 01:27] VITALS: BP 130/70; BP 164/84
--- NOTE | 2018-05-11 08:25 | PCM.CR.ITP ---
Exercise - 60-Day Assessment - Visit Date of Eval: 05/11/18 Session #:: 25 - Stages of Change Stages of Change:: Action - Exercise Prescription Mode:: Treadmill, Rower, Airdyne, NuStep Frequency (x/week): 3 Duration:: 35 METs: 6.5 Target Heart Rate:: 112-120 w/max HR 116 - Hypertension Resting Blood Pressure:: 132/78 Peak Exercise Blood Pressure:: 148/80 Medication Changes:: No - Intervention Home Exercise/Activity Goal:: Moderate Exercise 30 min/day x 5 days/wk - Education Goals:: Warm-up, RPE EVELYN Scale, S/S, Safe Exercise, Self-Monitoring - Exercise Program Goals Exercise Program Goals: Aerobic Activity >30 min Nutrition - Initial Assessment - Program Goals Nutrition Program Goals: LDL <70. Total Cholesterol <200. HDL >45. Triglycerides <150. HgbA1C <7%. BMI <25 - Diabetes Do you monitor your blood sugar at home?: No Nutrition - 60-Day Assessment - Program Goals Nutrition Program Goals: LDL <70. Total Cholesterol <200. HDL >45. Triglycerides <150. HgbA1C <7%. BMI <25 - Visit Date of Eval: 05/11/18 - Stages of Change Stages of Change:: Action - Lipids Has the patient seen the dietitian?: No - Diabetes Diabetes:: No Insulin: No Non-Insulin Dependent?: No - Weight Management Weight:: 262 lb - Intervention Referral to dietitian:: No Referral to Diabetic Clinic:: No - Education Attended class for:: Healthy eating Tobacco - Initial Assessment - Program Goals Tobacco Program Goals: Complete smoking cessation. Attend education classes. Improve Knowledge Test score - Learning Barriers Learning Barriers: Ready to Learn Tobacco - 60-Day Assessment - Program Goals Tobacco Program Goals: Complete smoking cessation. Attend education classes. Improve Knowledge Test score - Stage of Change Stages of Change:: Action - Learning Barriers Learning Barriers: Participates in education - Family Support Do you have family support?: Yes - Tobacco Use Tobacco Use: Non-smoker Do you use smokeless tobacco?: No - Intervention Smoking Cessation Referral:: No Education Schedule Given:: Yes - Education Attended class for:: Coronary artery disease, Risk factors, Sexuality, Medical compliance, Cardiac A&P, Angina signs & symptoms Psychosocial - 60-Day Assess - Target Goals Target Goals: Assess presence or absence of depression. Using a valid screening tool, maximizes coping skills. Positive support system - Stages of Change Stages of Change:: Action - Psychosocial Test Tool Used:: HANDS Depression Questionnaire - Intervention PS - Interventions: Yes Attend Stress Management Classes, No Referral to Mental Health, No Referral to [facility] Case Management, No Referral to Physician, No Uses Stress Management Skills - Education Attended classes for:: Coping techniques, Signs & symptoms of depression, Stress management, Relaxation techniques - Patient/Program Goal Preventative Medication(s):: Aspirin, Clopidogrel, Beta jose a, Statin/lipid - Assistive Devices Assistive Devices:: None Fall Risk Assessed:: Yes Patient Health Questionnaire 60-Day Re-eval Assessment 1. Little interest or pleasure in doing things: Not at all 2. Feeling down, depressed, or hopeless: Not at all 3. Trouble falling or staying asleep, or sleeping too much: Not at all 4. Feeling tired or having little energy: Not at all 5. Poor appetite or overeating: Not at all 6. Feeling bad about yourself -- or that you are a failure or have let yourself or your family down: Not at all 7. Trouble concentrating on things, such as reading the newspaper or watching television: Not at all 8. Moving or speaking so slowly that other people could have noticed. Or the opposite - being so fidgety or restless that you have been moving around a lot more than usual: Not at all 9. Thoughts that you would be better off , or of hurting yourself in some way: Not at all How difficult have these problems made it for you to do your work, take care of things at home, or get along with other people?: Not difficult at all Total Score: 0 Self-Efficacy 60-Day Re-eval Assessment We would like to know how confident you are in doing certain activities. Please select your confidence level for:: Select your confidence level for the following using the scale 1-10 where 1 is not at all confident and 10 is totally confident. Your score is the average of all 6 responses. Fatigue: How confident are you that you can keep the fatigue caused by your disease from interfering with the things you want to do? Select Number: 10 Physical Discomfort or Pain: How confident are you that you can keep the physical discomfort or pain of your disease from interfering with the things you want to do? Select Number: 10 Emotional Distress: How confident are you that you can keep the emotional distress caused by your disease from interfering with the things you want to do? Select Number: 10 Other Symptoms or Health Problems: How confident are you that you can keep other symptoms or health problems from interfering with the things you want to do? Select Number: 10 Different Tasks and Activities: How confident are you that you can do the different tasks and activities needed to manage your health condition so as to reduce your need to see a doctor? Select Number: 10 Medication: How confident are you that you can do things other than just taking medication to reduce how much your illness affects your everyday life? Select Number: 10 Total Score:: 10
[2018-05-11 08:28] VITALS: BP 132/78; BP 148/80
== END 2018-06-08 23:59 ==
LOC: CR 08:00
PROVIDERS: Family Provider Nurse Practitioner; PCP Nurse Practitioner; Referring Provider Internal Medicine Cardiovascular Disease; Visit Provider Internal Medicine Cardiovascular Disease
DX: I42.8 Other cardiomyopathies (principal)
CPT/HCPCS: 93798

== ENCOUNTER 2018-06-27 08:30 | Outpatient (RCR) | payer OTHER, SELFPAY ==
[2018-03-13 08:23] VITALS: BMI 34.5
== END 2018-07-09 23:59 ==
LOC: NS 08:30
PROVIDERS: Family Provider Nurse Practitioner; PCP Nurse Practitioner; Visit Provider Internal Medicine Cardiovascular Disease
DX: E66.9 Obesity, unspecified (principal); Z68.33 Body mass index [BMI] 33.0-33.9, adult; I48.91 Unspecified atrial fibrillation; I42.9 Cardiomyopathy, unspecified; K21.9 Gastro-esophageal reflux disease without esophagitis; Z71.3 Dietary counseling and surveillance
CPT/HCPCS: 97803

== ENCOUNTER → 2018-08-04 07:34 | Outpatient (CLI) | payer OTHER, SELFPAY ==
[2018-08-04 08:42] LABS: AST(SGOT) 41 U/L (15-37); Alanine Aminotransfer ALT/SGPT 65 U/L (16-61); Albumin, Serum 3.6 g/dL (3.2-5.0); Alkaline Phosphatase 81 U/L (45-117); Anion Gap 6 (5-15); BUN 17 mg/dL (7-18); BUN/Creat Ratio 13.6 RATIO (10-20); Bilirubin, Direct 0.34 mg/dL (0.00-0.30); Calcium,Total 8.4 mg/dL (8.5-10.1); Chloride 112 mmol/L (98-107); Cholesterol 93 mg/dL (200); Creatinine, Serum 1.25 mg/dL (0.70-1.30); EST Glomerular Filtration Rate 62 mL/min (>60); Est Glom Filt Rate - Afr Amer 76 mL/min (>60); Globulin 3.3 g/dL (2.2-4.2); Glucose 86 mg/dL (74-106); High Density Lipoprotein 41 mg/dL; Potassium 4.2 mmol/L (3.5-5.1); Protein, Total 6.9 g/dL (6.4-8.2); Sodium Level 141 mmol/L (136-145); Triglycerides 50 mg/dL; Very Low Density Lipoprotein 10 mg/dL (5-40)
== END ==
PROVIDERS: Internal Medicine Cardiovascular Disease; Family Provider Nurse Practitioner; PCP Nurse Practitioner; Referring Provider Nurse Practitioner; Visit Provider Nurse Practitioner
DX: E03.9 Hypothyroidism, unspecified (principal); I25.10 Atherosclerotic heart disease of native coronary artery without angina pectoris; I42.8 Other cardiomyopathies; I48.91 Unspecified atrial fibrillation; I51.7 Cardiomegaly; R21 Rash and other nonspecific skin eruption; D58.2 Other hemoglobinopathies
CPT/HCPCS: 36415; 80048; 80061; 80076; 84443

== ENCOUNTER 2018-08-09 09:00 | Outpatient (RCR) | payer OTHER, SELFPAY ==
[2018-03-13 08:23] VITALS: BMI 34.5
--- OUTSIDE RECORDS SUMMARY | 2018-09-29 22:12 | XMS RPT_ITS | Continuity of Care Document ---
:1955 Author Organization [facility] Address [facility] [address] [place] [address] Phone Care Team Providers Name Role Phone Steff Carrington CNP Unavailable Madelyn Mills Unavailable Unavailable Unavailable Unavailable Problems Name Dates Details Abnormal TSH (R79.89, 790.6) Comments: ? recovering from thyroidits danial with the history of palp signs and symptoms etc. ? early hashimotos Status: Active Afib (I48.91, 427.31) Comments: Found Afib wtih walkin for ear wax, Found EF on 35% on Cath from 02-02, now seen by Dr. Chino, on xaralto, amiodarone, Asa, found hypothyroid,being treated. Status: Active BMI 34.0-34.9,adult (Z68.34, V85.34) Status: Active CKD stage G2/A1, GFR 60-89 and albumin creatinine ratio <30 mg/g (N18.2, 585.2) Comments: Creat 1.3 GFR 58 January labs Status: Active Cough (R05, 786.2) Status: Active Current nonsmoker (Renamed from Current non-smoker) (Z78.9, V49.89) Status: Active Elevated hemoglobin (D58.2, 282.7) Comments: has had hemoglobin as high as 16.8, was taking iron and previous donor,suggesting not donate blood yet and follow hemoglobin Status: Active Encounter for routine history and physical exam for male (Z00.00, V70.0) Comments: scope 10-15 Status: Active GERD (gastroesophageal reflux disease) (K21.9, 530.81) Status: Active Hypercholesteremia (E78.00, 272.0) Status: Active Hypertension (I10, 401.9) Comments: Goal <130/80, on metoprolol, losartan, amiodarone per Chino Status: Active Hypothyroid (E03.9, 244.9) Comments: takes 125 daily and 1.5 daily Status: Active Rash of unknown cause (R21, 782.1) Comments: left lower leg Status: Active Screening for prostate cancer (Z12.5, V76.44) Status: Active Sinusitis, bacterial (J32.9, 473.9) Status: Active SOB (shortness of breath) on exertion (R06.02, 786.05) Status: Active Unspecified Diagnosis Status: Active Medications Name Dates Details Amiodarone HCl 200 MG Oral Tablet 1 (one) Tablet daily for 30 days Quantity: 30 {Tablet} Refills: 3 Ordered:16-Feb-2018 Steff Carrington CNP, CNP, Mary E Start : 16-Feb-2018 Active Aspirin 81 MG Oral Tablet Delayed Release 1 (one) Tablet daily for 30 days Quantity: 30 {Tablet} Refills: 3 Ordered:16-Feb-2018 Steff Carrington CNP, CNP, Mary E Start : 16-Feb-2018 Active Eucrisa 2 % External Ointment 1 (one) Application bid for 0 days Quantity: 1 {Applicator} Refills: 0 Ordered:21-May-2018 Steff Carrington CNP, CNP, Mary E Start : 21-May-2018 Active Glucosamine 500 MG Oral Capsule daily (500 MG) Active Levothyroxine Sodium 125 MCG Oral Tablet 1 (one) Tablet daily and 1.5 tablets on sundays and wednesdays for 90 days Quantity: 90 {Tablet} Refills: 3 Ordered:22-May-2018 Steff Carrington CNP, CNP, Mary E Start : 22-May-2018 Active Levothyroxine Sodium 125 MCG Oral Tablet 1 (one) Tablet daily and 1.5 tablets on sundays and wednesdays for 30 days Quantity: 90 {Tablet} Refills: 3 Ordered:22-May-2018 Steff Carrington CNP, CNP, Mary E Start : 22-May-2018 Active Lipitor 80 MG Oral Tablet 1 (one) Tablet daily for 30 days Quantity: 30 {Tablet} Refills: 4 Ordered:16-Feb-2018 Charissa NOWAK, Steff Dobbins CNP Start : 16-Feb-2018 Active Losartan Potassium 25 MG Oral Tablet 1 (one) Tablet daily for 30 days Quantity: 30 {Tablet} Refills: 3 Ordered:16-Feb-2018 Charissa NOWAK, Steff Dobbins CNP Start : 16-Feb-2018 Active Metoprolol Succinate ER 25 MG Oral Tablet Extended Release 24 Hour 1 (one) Tablet Tablet qd for 30 days Quantity: 30 {Tablet} Refills: 3 Ordered:21-May-2018 Madelyn Mills Start : 16-Feb-2018 Active PriLOSEC OTC 20 MG Oral Tablet Delayed Release 1 prn for 0 days Refills: 0 Ordered:16-Feb-2018 Charissa NOWAK, Steff Dobbins CNP Start : 16-Feb-2018 Active Xarelto 20 MG Oral Tablet 1 (one) Tablet daily for 30 days Quantity: 30 {Tablet} Refills: 4 Ordered:16-Feb-2018 Charissa NOWAK, Steff Dobbins CNP Start : 16-Feb-2018 Active ALBUTEROL SULFATE HFA, 108 (90 Base)MCG/ACT (Inhalation Aerosol Solution) 2 (two) Aerosol Soln qid prn for 0 days Quantity: 1 {Aerosol_Soln} Refills: 3 Ordered:01-Oct-2007 Sandra Velásquez Start : 01-Oct-2007 Inactive Amoxicillin-Pot Clavulanate 875-125 MG Oral Tablet 1 (one) Tablet PO BID for 14 days Quantity: 28 {Tablet} Refills: 0 Ordered:01-Jan-2018 Hodan Lockett Start : 01-Jan-2018 End : 15-Jan-2018 Inactive BACTRIM DS, 800-160MG (Oral Tablet) 1 (one) Tablet bID for 7 days Quantity: 14 {Tablet} Refills: 0 Ordered:15-Apr-2009 Steff Carrington CNP, CNP, Mary E Start : 15-Apr-2009 End : 22-Apr-2009 Inactive LAMISIL, 250MG (Oral Tablet) 2 (two) Tablet daily first week of month for 4 months for 0 days Refills: 0 Ordered:18-Sep-2007 DEVON Rosario Start : 18-Sep-2007 End : 12-Aug-2008 Inactive LEVAQUIN, 500MG (Oral Tablet) 1 Tablet qd for 0 days Quantity: 14 {Tablet} Refills: 0 Ordered:01-Oct-2007 DEVON Rosario Start : 01-Oct-2007 End : 12-Aug-2008 Inactive Metoprolol Tartrate 25 MG Oral Tablet daily (25 MG) Inactive Chondroitin Sulfate 400 MG Oral Capsule daily (400 MG) End : 21-May-2018 Discontinued Iron Folic BC 500 Oral Tablet daily for 0 days Refills: 0 Ordered:16-Feb-2018 Madelyn Mills Start : 16-Feb-2018 End : 21-May-2018 Discontinued Comments:This order discontinued per [facility]. Omeprazole 20 MG Oral Capsule Delayed Release daily (20 MG) End : 21-May-2018 Discontinued ProAir HFA 108 (90 Base) MCG/ACT Inhalation Aerosol Solution 1-2 Puff Q 4-6 hours prn for 0 days Quantity: 1 {Inhaler} Refills: 0 Ordered:16-Feb-2018 Madelyn Mills Start : 02-Jan-2018 End : 16-Feb-2018 Discontinued Allergies and Adverse Reactions Name Dates Details No Known Drug Allergies (Allergy) Status: Active Past Medical History Name Dates Details BMI 32.0-32.9,adult (Z68.32, V85.32) Status: Inactive as of 16-Feb-2018 Cerumen impaction (H61.20, 380.4) Status: Inactive as of 30-Oct-2015 Cough (R05, 786.2) Status: Inactive as of 01-Jan-2009 oncomycosis Status: Inactive as of 01-Jan-2009 Palpitations (R00.2, 785.1) Comments: better since cut down on caffiene? recovering thyroiditis Status: Inactive as of 30-Oct-2015 right lower lobe pneumonia Status: Inactive as of 01-Jan-2009 Skin lesion (L98.9, 709.9) Comments: Rt lateral splinter Status: Inactive as of 30-Oct-2015 Procedures Procedure Dates Details left knee meniscus repair 2004 Dr. 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 Balwinder Chino Primary Diagnosis: Non-ischemic Cardiomyopathy CHF EF<35% - History of Present Cardiac Event Onset Date: Enter Onset Date of cardiac illnesses in Comment field below Heart Failure EF <35%:: Yes Type of Symptoms:: 11 of January, atrial fibrillation, more fatigued than usual. Interventions with present event:: Cardiov ersion 10 days ago. So far been in normal rhythm. - Medications Home Medications: Ambulatory Orders Medication Instructions Recorded metoprolol succinate ER 25 mg 25 mg PO DAILY #30 tab.er.24h 8 - Allergies Allergies/Adverse Reactions: Allergies No Known Allergies Allergy (Verified 02/16/18 08:22) - Sleep Disorder Evaluation Hx of Sleep Apnea: Yes Do you snore loudly (louder than talk ing or can be heard through closed doors)?: Yes - Dr. Chino wants him to be tested. Do you often feel tired/ fatigued/ sleepy during daytime?: No - much improved than prior to cardioversion. Has anyone observed you stop breathing during sleep?: No History of Hypertension (for STOP score): No STOP Results: Negative Advanced Directives - Advanced Directives Power of Curtain Feller Blindstitch: Yes Living Will: Yes Adv ance Directives Information Provided: No Advance Directives on File: Yes DNR Order?:: No - MOLST See MOLST form: No Past Medical History - Past Medical Illness Medical History: Past Medical History ( Last Updated 03/02/18 @ 13:19 by Clotilde Bautista) Snoring (Chronic) R06.83 Daytime somnolence (Chronic) R40.0 Nonischemic cardiomyopathy (Chronic) I42.8 EF 35% per echo 01/26/18 Atherosclerotic heart disease of [place] coronary artery without angina pectoris (Chronic) I25.10 Nonobstructive coronary arteries (<30% stenosis in LAD, CX, and RCA: left main normal) per [facility] 02/02/[address] Chino @ [facility] Atr ial enlargement, right (Chronic) I51.7 Per echo 01/26/18 GERD (gastroesophageal reflux disease) (Chronic) K21.9 Atrial fibrillation (Chronic) I48.91 - Past Surgical History Surgical History: Past Surg ical History (Last Reviewed 02/16/18 @ 08:22 by Clotilde Bautista) History of left heart catheterization (Chronic) Onset Date: 02/02/18 Z98.890 Nonobstructive coronary arteries (<30% stenosis in LAD, C X, and RCA: left main normal) per [facility] 02/02/[address] Chino @ [facility] H/O lateral meniscus repair of left knee Onset Date: [address] Odom, 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 Rec reational Activities: I am able to engage in all my recreational activities - now that have had cardioversion able to do more Social Environment - Status Marital Status: - Current Living [facility] Living Environment:: Family - Children How many children do you have?: 3 Do any of your children live nearby?: Yes - 1 in [place] - Safety Do you feel safe in your surroundings?: Yes - Assistance Do you need any assistance at home?: none Review of Systems - Review of Systems Hints: Right click = Denies (Slash). Left click = Reports ([place]) Review of Present Symptoms: Report s: Shortness of Breath with Exertion - much improved since cardioversion but still noticable., Fatigue, Heart Arrhythmia/Irregularities - atrial fibrillation, Appetite - Normal, Sleep - Normal. Denies: Shortness of Breath at Rest, Angina - previously was experienceing feeling of pressure., Dizziness/Lightheadedness, Appetite - Special Diet, Sexual Changes - Pain Is Patient Pain Free?: Yes Pain Locati on: none Risk Factor Assessment - Chief Complaint Chief Complaint: Patient is a 62 year old male patient of Dr. Balwinder Chino who recently was hospitalized with atrial fibrillation and CHF w EF &# 60;35%. He recently had a cardioversion done 10 days ago for the atrial fibrillation and since has remained in SR. - Vital Signs Temperature: 98.7 F - Respiratory Rate: 16 Pulse Ox: 94 Blood Pressure: 118/72 - Pulse Pulse Rate: 52 Pulse Rhythm: Regular - Hypertension Blood Pressure Sitting - Left Arm: 118/72 - Diabetes Nutrition Referral for Diabetes: No - Obesity Height: 6 ft Weight:: 255 lb Ajay ght in Pounds: 255.0 lbs Weight Source: Standing Scale Body Mass Index (BMI): 34.5 Nutritional Referral for Obesity: Yes - Patient could benefit from strucutured weight loss program and cardiac diet - Physical Inactivity Physical Inactivity: Reg Exercise 30 min/day, Physically demanding job Exercise Limitations: no limit with knee. - Risk Stratification Risk Guidelines: Lowest Risk: Risk Factor for Smoking, Risk Factor for Dyslipidemia, Risk Factor for Diabetes, Risk Factor for Hypertension, Risk Factor for Sedentary Lifestyle, Risk Factor for Depression, Highest Risk: Risk Factor for Obesity - F or Smoking Smoking Risk Guidelines: Smoking Low Risk: None or quit greater than 6 months ago. Smoking Moderate Risk: Smoker or quit 6 months or less ago. Smoking High Risk: Smoker - For Dyslipidemia Dy slipidemia Risk Guidelines: Low Risk: Moderate Risk: High Risk: 15-25% fat 25.1- 29% fat >/= 30% fat. <7% sat fat 7-9% sat fat >9% sat fat. <150 mg chol 150-299 mg chol >/= 300 mg chol. LDL <100 LDL 100-129 LDL >/= 130. Chol/HDL ratio <5.0 Chol/HDL ratio 5.0-6.0 Chol/HDL ratio >6.0. Triglycerides <100 Triglycerides 100- 149 Triglycerides >/= 150 - For Diabetes Mellitus Diabetes Risk Guidelines: Diabetes Low Risk: H gA1c <6.5% and/or FBG <120. Diabetes Moderate Risk: HgA1c 6.6-7.9% and/or FBG 120-180. Diabetes High Risk: HgA1c >/= 8% and/or FBG >180 - For Obesity/Overweight Obesity/ Overweight Risk Guidelines: Obesity Low Risk: BMI <25.0. Obesity Moderate Risk: BMI 25-29.9. Obesity High Risk: BMI >/= 30.0 - For Hypertension Hypertension Risk Guidelines: Hypertensio n Low Risk: Systolic <120 and Diastolic <80. Hypertension Moderate Risk: Systolic 120-139 and Diastolic 80-89. Hypertension High Risk: Systolic >/= 140 and Diastolic >/= 90 - For Sedentary Lifestyle Sedentary Lifestyle Risk Guidelines: Sedentary Lifestyle Low Risk: >/= 1,500 kcal/week. Sedentary Lifestyle Moderate Risk: 700- 1,499 kcal/week. Sedentary Lifestyle High Risk: < 700 kcal/week - For Depression Depression Risk Guidelines: Depression Low Risk: Not clinically depressed. Depression Moderate Risk: Mildly depressed. 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 What d o you see as the benefits of succesfully completing the program? In other words, what do you hope to get out of participating in the program?: guess be strengthen the heart, making more efficient. Are t here issues you are dealing with that will interfere with completing the program?: none Do you have a spouse or signficant other, family or friends who will help support you to complete the program?: excellent chey. 03/13/18 0824 <Electronically signed by Ulysses Vasques CRT, RCP, OLVIN> Date Ulysses Vasques CRT, RCP, OLVIN Outcome assessment revie mon. Exercise plan approved as documented. Treatment plan and goals support patient needs/abilities. Continue with current plan. I certify the patient demonstrates improvement and remains willing and c apable of participation. the patient continues to benefit from cardiac rehab services/training. The patient may continue at current intensity, endurance and modality and progress per protocol. 8 1045 <Electronically signed by Balwinder Chino MD> Cosigner Signature: Date Balwinder Chino MD CC: Signed 12-Mar-2018 Office Visit Report Result: Comments: See Note; NOTES: [facility] [address] [place] [address] OFFICE VISIT Date of Service: 03/09/18 MR#: [id number] Acct: [id number] Patient: NIYA MCKEON Rep #: [id number] : 1955 Provider: Balwinder Chino MD Age/Sex: 62/M Location: [facility] Status: Signed Intake Intake Visit Reasons: 1 WK EKG POST DCCV Chief Complaint: Routine f/u Allergies No Known Aller gies Allergy (Verified 02/16/18 08:22) Medications metoprolol succinate ER 25 mg tablet,extended release 24 hr 25 mg PO DAILY #30 tab.er.24h 01/23/18 [Rx Confirmed 03/01/18] levothyroxine 125 mcg ca psule 125 mcg PO QDAY #30 cap 01/29/18 [Rx Confirmed 03/01/18] Omeprazole [Prilosec] 20 mg PO DAILY 02/01/18 [History Confirmed 03/01/18] Rivaroxaban [Xarelto] 20 mg PO DAILY #30 tab 02/02/18 [Rx Confir med 03/01/18] aspirin 81 mg tablet,delayed release 81 mg PO QDAY 02/16/18 [History Confirmed 03/01/18] iinkbisofus-xwt-bgfvcrotl-hrb 149-hyalur 500 mg-500 mg-66.7 mg tablet tab PO 02/16/18 [History Conf irmed 02/16/18] losartan 25 mg tablet 25 mg PO DAILY #90 tab 02/16/18 [Rx Confirmed 03/01/18] amiodarone 200 mg tablet 200 mg PO DAILY #30 tab 02/26/18 [Rx Confirmed 03/01/18] atorvastatin 80 mg tablet 80 mg PO QHS #30 tab 02/26/18 [Rx Confirmed 03/01/18] Assessment AND Plan Orders Orders: Nursing Note Patient is here for an EKG. He is one week post cardioversion. Patient states he feels good. Blair moser's blood pressure was 118/72. Per Pete Angela, patient is to continue current course of treatment and keep followup appt as scheduled. Patient is to contact the office if any problems prior to next a ppt. Patient notified and verbalized understanding. 03/12/18 1257 <Electronically signed by Balwinder Chino MD> Date Balwinder Chino MD Cosigner Signature: Date (if applicable) CC: 09-Mar-2018 12 Lead EKG performed by [facility] Result: Comments: See Note; NOTES: [facility] [address] [place] [address] 12 Lead EKG performed by [facility] 03/09/18 1541 MR#: [id number] Acct: [id number] Name: NIYA MCKEON Rep #: [id number] : 1955 62 From: Balwinder Chino MD Attending Dr: Balwinder Chino MD Status: DEP AMB Ordering Dr: Balwinder Chino MD Date: 03/09/18 [place] [facility] Sex: M C Admitted: [facility]/12 Lead EKG performed by [facility] Sinus Bradycardia WITHIN NORMAL LIMITS 03/15/18 1402 <Electronically signed by Balwinder Chino MD> Date Balwinder Chino MD CC: Steff Carrington NP Date Dictated: 08/31/18 1541 Date Transcribed: 03/09/181540 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: Signed 03-Mar-2018 Operative Report Result: Comments: See Note; NOTES: [facility] Medical Records Department [address] [place] [address] Operative Report 03/02/18 1325 MR#: [id number] Acct: [id number] Name: NIYA MCKEON Rep #: [id number] : 1955 62 From: Amilcar Jane MD PCP: Steff Carrington NP Status: REG SDC Y Location: [facility] Problem List (1) Atrial enlargement, right Status: Chronic Comment: Per echo 01/26/18 (2) Atrial fibrillation Status: Chronic (3) GERD (gastroesophageal reflux disease) Status: Chronic (4) Nonischemic cardiomyopathy Status: Chronic Comment: EF 35% per echo 01/26/18 Operative Report Da te of Procedure: 03/02/18 - Conscious sedation CONSCIOUS SEDATION REPORT BRIEF HISTORY OF PRESENT ILLNESS: The patient is a 62-year-old male who presented to [facility] for an elective outpatient cardioversion due to underlying atrial fibrillation. The patient reports no PO intake since midnight. The patient does not have a history of obstructive sleep apnea per patient. The patient reports no history of smoking and COPD. The patient denies any recent constitutional symptoms such as fevers, chills, nausea or vomiting. The patient denies previous anesthetic complications. Patient's last known ejection fraction is approximately 35%. PHYSICAL EXAMINATION: VITAL SIGNS: Reviewed and were acceptable. GENERAL: The patient is an obese male, in no apparent distress, speaking in full sentences. HEENT: Normocephalic, atraumatic. Mucous membranes are moist and pink. Good mouth opening noted. Trachea is midline. Good neck mobility. MP III CHEST: S1, S2 irregularly irregular. No m urmurs, rubs or gallops were noted. LUNGS: Clear to auscultation bilaterally without appreciable wheezes, rales or rhonchi. ABDOMEN: Soft, nontender, nondistended. Positive bowel sounds. EXTREMITIES: Th ere is no clubbing, cyanosis or edema. ASA Class: II DESCRIPTION OF PROCEDURE: After confirmation of informed consent, the patient's anesthesia plan was reviewed in detail. Etomidate was chosen. Risks and benefits were reviewed and the patient agreed to proceed. At 12:16 PM, the patient was given 4 mg of etomidate. The patient required a total of 6 mg of etomidate throughout the procedure to achieve appropriate sedation. The patient achieved an appropriate level of sedation and received 1 attempt s synchronized cardioversion, at [address] Chino at the bedside. This was successful in achieving normal sinus rhythm. The patient was monitored until 12:24 PM, at which time the patient reached their baseline mental status and function. The patient tolerated the procedure well. COMPLICATIONS: None ESTIMATED BLOOD LOSS: None RECOMMENDATIONS: Okay to recover in usual fashion. Code Visit 9xxxx: Other Procedure See Report - [id number] -8 minutes of conscious sedation 03/03/18 0530 <Electroni coleen signed by Amilcar Jane MD> Date Amilcar Jane MD CC: Steff Carrington NP; Amilcar Jane MD; Balwinder Chino MD Signed 02-Mar-2018 Operative Report Result: Comments: See Note; NOTES: [facility] Medical Records Department [address] [place] [address] Operative Report 03/02/18 1243 MR#: [id number] Acct: [id number] Name: NIYA MCKEON Rep #: [id number] : 1955 62 From: Balwinder Chino MD PCP: Steff Carrington NP Status[place] [facility] [place] Location: [facility] Problem List (1) Chest pain Status: Acute (2) Atherosclerotic heart disease of [place] coronary artery without angina pectoris Status: Chronic Comment: Nonobstructive coronary arteries (<30% stenosis in LAD, CX, and RCA: left main normal) per [facility] 02/02/[address] Chino @ [facility] ( 3) Atrial fibrillation Status: Chronic Operative Report Date of Procedure: 03/02/18 DC cardioversion report: Patient is a 62-year-old gentleman who presented initially with LV dysfunction, nonischemic cardiomyopathy after left heart catheterization performed by myself, showed nonobstructive coronary artery disease and an EF around 35-40%. He was also found to be in atrial flutter of unknown duration . Patient apparently had a DC cardioversion which was not successful, and was started on amiodarone in addition to anticoagulation therapy. Once adequate loading with amiodarone was completed, he was he joanna back for DC cardioversion. The risks/benefits of the procedure were thoroughly explained to the patient and informed consent was obtained. The deferred later pads were placed in the AP position. Wi th the assistance of Dr. Amilcar Jane the patient was given a total of 6 mg of etomidate. Once adequate sedation was obtained, the patient received a single biphasic synchronized 200 J shock which conve rted from atrial flutter to sinus rhythm/sinus bradycardia. This rhythm remained durable, and the pacer pads were removed. The patient spontaneously awoke, moves all 4 extremities, and tolerated the pr ocedure well. Conclusions successful amiodarone assisted DC cardioversion with a single biphasic 200 J synchronized shock which converted from atrial flutter to normal sinus rhythm/sinus bradycardia. Recommendations: At this point the patient will continue all medical therapy going forward. He will be enrolled in cardiac rehab as well as to be evaluated with a sleep study for what appears to be obst ructive sleep apnea which may be contributing to his atrial flutter. Patient tolerated procedure well. No complications. Many thanks to Dr. Amilcar Jane for his assistance. Code Visit 92xxx-93xxx: 929 60 Cardioversion electric ext 03/02/18 1246 <Electronically signed by Balwinder Chino MD> Date Balwinder Chino MD CC: Steff Carrington ESTHETICIAN MAKEUP ARTIST; Balwinder Chino MD Signed 16-Feb-2018 Cardiology Visit Report Result: Comments: See Note; NOTES: [facility] [address] [place] [address] OFFICE VISIT Date of Service: 02/16/18 MR#: [id number] Acct: [id number] Name: NIYA MCKEON Rep #: [id number] : 1955 Provider: Balwinder Chino MD Age/Sex: 62/M [place] [facility] [place]: Signed HPI HPI Chief Complaint: Routine f/u Details: NIYA MCKEON, is a 62 M who presents to the off ice today for f/u of an irregular heartbeat. Apparently he visited the comprehensive internal medicine, on 01/04/18 for a cough and fever and was prescribed antibiotics and albuterol. The patient used al buterol for a few times, but noted significant anxiety but no palpitations. The patient then returned to the now clinic with complaints of an ear infection on 01/11/18, and was found to have an irregular heartbeat. An EKG was performed on 01/11/18 upon referral to the emergency room which discovered atrial fibrillation with rapid ventricular response at a rate of 105 bpm. No evidence of previous myocardi al infarction, no acute changes. The patient was completely asymptomatic at that time. He was diagnosed with new onset atrial fibrillation and placed on beta- jose a and Xarelto therapy. He is now here in follow-up. Further history he is a nondiabetic, nonhypertensive, non-smoker, nondrinker, no previous known history of atrial fibrillation. The patient cannot detect that he is in atrial fibrillation and denies any palpitations, lightheadedness dizziness, chest pain or angina. He is taking and tolerating his medicines well. As part of his cardiac workup for atrial fibrillation he underwent an echo cardiogram on 01/26/18 which showed an EF of 35%, and severe right ventricular enlargement. He underwent a stress echocardiogram on 02/01/18 which showed an EF improvement from 35-45%, with severe dyspnea . To better evaluate his LV dysfunction he underwent a cardiac catheterization on 02/02/18 which showed nonobstructive coronary disease, moderate global LV dysfunction with EF around 40%. He was started on amiodarone and Xarelto in anticipation for elective DC cardioversion in several weeks time. Patient is now here in follow-up. In our office today's blood pressure is 100/70 with a pulse of 72 and irregular. His physical exam demonstrates clear lungs bilaterally, an irregularly irregular rhythm, normal S1/S2, no murmurs are detected. He has no edema. EKG today demonstrates atrial fibrillation wit h controlled ventricular response, no previous myocardial infarction. Lipids as of 02/01/18 show an LDL of 109 and HDL 35. Repeat lipid is pending. 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 Accompanied by: Is patient in pain?: No Allergies No Known Allergies Allergy (Verified 02/16/18 08:22) Medications metoprolol succinate ER 25 mg tablet,extended release 24 hr 25 mg PO DAILY #30 tab.er.24h 01/23/18 [Rx Confirmed 02/16/18] levothyroxine 125 mcg capsule 125 mcg PO QDAY #30 cap 01/29/18 [Rx Confirmed 02/16/18] Omeprazole [Prilosec] 20 mg PO DAILY 02/01/18 [History Confirmed 02/16/18] Amiodarone HCl [Cordarone] 200 mg PO DAILY #30 tab 8 [Rx Confirmed 02/16/18] Atorvastatin Calcium [Lipitor] 80 mg PO QHS #30 tab 02/02/18 [Rx Confirmed 02/16/18] Losartan Potassium [Cozaar] 25 mg PO DAILY #30 tab 02/02/18 [Rx Confirmed 02/16/18] Rivarox aban [Xarelto] 20 mg PO DAILY #30 tab 02/02/18 [Rx Confirmed 02/16/18] aspirin 81 mg tablet,delayed release 81 mg PO QDAY 02/16/18 [History Confirmed 02/16/18] eoartnzcrwu-lqk-uhtqpwtpa-hrb 149-hyalur 5 00 mg-500 mg-66.7 mg tablet tab PO 02/16/18 [History Confirmed 02/16/18] FORMERLY [facility] Medical History 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 EF 35%, nonobst. To discuss DCCV); neg ative for fatigue, weakness, body ache, fever(s), headache(s), chills, frequent falls, night sweats, daytime sleepiness, difficulty sleeping, excessive sweating, weight gain, weight loss, increased appe tite, poor appetite or anorexia Eyes Eyes: Negative for blind spots, loss of peripheral vision, transient loss of vision, blurry vision, change in vision, double vision, floaters, tunnel vision or other ENT ENT: Negative for headache(s), dizziness, hearing loss, tinnitus, Nosebleed/epistaxis, balance problems, post nasal drip, lip swelling, tongue swelling, bleeding gums, hoarseness, neck pain, dry mo uth or other Cardio Chest Pain: No Palpitations: Yes Edema: Bilateral (mild) Muscle aches with walking: None Resp Respiratory: Positive for SOB with activity (only if more strenuous); negative for SOB a t rest, SOB orthopnea\SOB lying down, Coughing up blood/hemoptysis, chest congestion, pain on inspiration, snoring, stridor, wheezing, crackles, paroxysmal nocturnal dyspnea or other GI GI: Negative ayana sea, vomiting, heartburn, constipation, belching, bloating, cramping, vomiting blood/hematemesis, bright, red blood in stools, black,tarry stools, loose stools, Difficulty Swallowing or other : Neg ative for hematuria, frequent nighttime urination/ nocturia, erectile dysfunction or abnormal vaginal bleeding Musc Musc: Negative for balance problems, muscle aches/ myalgia, muscle weakness or joint p ain Skin Skin: Negative redness, non-healing lesions, rash, unusual bruising, skin ulcer, wounds, jaundice or other Neuro Neuro: Negative for weakness, headache(s), frequent falls, blurry vision, double vision, dizziness, lightheadedness, near syncope, syncope, orthostatic symptoms, confusion, memory loss, restless legs, vertigo, seizures, lack of coordination or other Melquiades Hematologic/Lymphatic: Nega tive for easy bleeding, easy bruising, enlarged lymph nodes or other Endo Endo: Negative for fatigue, excessive sweating, cold intolerance, heat intolerance, flushing, increased thirst/drinking, increas ed hunger, hair loss, hair growth or other Psych Psych: Negative for anxiety, depression, thoughts of harming anyone, thoughts of harming yourself, visual hallucinations, panic attacks or audible halluc inations Allergy Allergy/Immunology: Negative for lip swelling, Negative for tongue swelling, Negative for rash, Negative for throat swelling, Negative for hives Cardiology Exam Const Appearance: coop erative, healthy appearing and no acute distress Nutritional Appearance: well nourished Orientation: alert, oriented x3 and oriented to person Head Head: normal to inspection, atraumatic and normocephal ic Nose: external nose normal Face and Sinus: face symmetric Mouth: oral mucosae normal Eyes General: appearance normal, both eyes and all related structures Eyelids: eyelids normal Conjunctivae: conjun ctivae normal Pupils: PERRL and normal by confrontation EOM: EOM intact bilaterally Neck Neck: normal visual inspection and full ROM Carotids: normal carotid upstroke Chest Chest inspection: normal insp ection of the chest Auscultation: Bilateral: Clear to Auscultation Cardio Palpation: normal PMI Rate: regular rate Rhythm: irregular rhythm Heart sounds: S1 normal and S2 normal GI GI: normal to inspect ion, no hepatosplenomegaly and bowel sounds present Neuro General: alert, oriented x3, awake, CN's II-XI intact bilaterally and moves all extremities Skin Skin: no rashes or lesions noted Extremities Pu lses: Normal: Right Femoral Pulse, Left Femoral Pulse, Right Dorsalis Pedis Pulse, Left Dorsalis Pedis Pulse, Right Posterior Tibial Pulse, Left Posterior Tibial Pulse, Right Radial Pulse, Left Radial P ulse Lower Extremity Edema: None: Bilateral Psych Psychological: normal affect Assessment AND Plan 1. Atrial fibrillation I48.91 Plan 1. Atrial fibrillation: Patient has chronic persistent atrial fibr illation and is asymptomatic from a cardiac standpoint. He was placed on amiodarone and Xarelto therapy in anticipation for DC cardioversion in 2 weeks time. He will continue these medications until his cardioversion has been completed. Hopefully we can get him into cardiac rehab afterwards to facilitate LV improvement 2. Cardiomyopathy I42.9 EF 35% per echo 01/26/18 Plan . 2. LV dysfunction: The pat ient appears to have a combination of hypertension and atrial fibrillation induced LV dysfunction. Hopefully with DC cardioversion this will revert back to normal. We will repeat his echocardiogram afte r 3 months time and preferably after cardiac rehab. In the meantime we will continue his losartan and metoprolol as well as amiodarone and Zarrella 3. Atherosclerotic heart disease of [place] coronary artery without angina pectoris I25.10 Nonobstructive coronary arteries (<30% stenosis in LAD, CX, and RCA: left main normal) per [facility] 02/02/[address] Chino @ [facility] Plan 3. Coronary artery disease : No exertional anginal symptoms at this time. The patient has not objective coronary disease by catheterization recently. Continue baby aspirin. 4. Return office in 6 months. This note was generated us ing a voice recognition system and there may be incorrect words, spelling or punctuation that were not noted when reviewing the office note prior to saving. Plan Detail Follow Up +6M (Kapil) Coding Level of Care Code Off vis,est,level 3 Diagnoses Atrial fibrillation I48.91 Cardiomyopathy I42.9 Atherosclerotic heart disease of [place] coronary artery without angina pectoris I25.10 Coding Level of Care Code Off vis,est,level 3 Diagnoses Atrial fibrillation I48.91 Cardiomyopathy I42.9 Atherosclerotic heart disease of [place] coronary artery without angina pectoris I25.10 02/16/18 1159 &#60 ;Electronically signed by Balwinder Chino MD> Date Balwinder Chino MD Cosign Signature: Date (if applicable) CC: Steff Carrington NP 01-Feb-2018 Office Visit Report Result: Comments: See Note; NOTES: [facility] [address] [place] [address] OFFICE VISIT Date of Service: 01/29/18 MR#: [id number] Acct: [id number] Patient: NIYA MCKEON Rep #: [id number] : 1955 Provider: Balwinder Chino MD Age/Sex: 62/M [place] [facility] [place] Status: Signed Intake Intake Visit Reasons: cath teaching / Clotilde to do Chief Complaint: Irregular heart rate Allergie s No Known Allergies Allergy (Verified 01/23/18 10:46) Medications albuterol sulfate HFA 90 mcg/actuation aerosol inhaler 2 puff INHALATION Q6H PRN 01/22/18 [History Confirmed 01/22/18] metoprolol succinate ER 25 mg tablet,extended release 24 hr 25 mg PO DAILY #30 tab.er.24h 01/23/18 [Rx Confirmed 01/23/18] rivaroxaban 20 mg tablet 20 mg PO DAILY #30 tab 01/23/18 [Rx Confirmed 01/23/18] aspirin 8 1 mg tablet,delayed release 81 mg PO .COMPLEX #30 tab 01/26/18 [Rx] clopidogrel 75 mg tablet 75 mg PO .COMPLEX #30 tab 01/26/18 [Rx] levothyroxine 125 mcg capsule 125 mcg PO QDAY #30 cap 01/29/18 [Rx Co nfirmed 01/29/18] Assessment AND Plan Orders Orders: Medications New: Nursing Note Patient here for heart cath teaching. Instructions reviewed and lab orders given: pt last dose of Xarelto will be February 08 and he will start ASA and Plavix on February 09 for cath on February 14. RX sent to [facility] and pt already picked it up as [place] the end of the week. 02/01/18 0858 &a mp;#60;Electronically signed by Balwinder Chino MD> Date Balwinder Chino MD Cosigner Signature: Date (if applicable) CC: Clotilde Bautista 31-Jan-2018 Emergency Department Summary Result: Comments: See Note; NOTES: [facility] Medical Records Department [address] [place] [address] Emergency Department Summary 01/31/18 2249 MR#: [id number] Acct: [id number] Name: NIYA MCKEON Rep #: [id number] : 1955 62 From: Akilah Dia MD PCP: Steff Carrington NP Status: REG ER - ER Visit Summary Date of Service: 01/31/18 Chief Complaint: Chest tightness History of Present Illness: The patient is a 62 M presenting with chest tightness. Patient states this started around 4 PM this afternoon. He states it has been intermittent since that time. Pain is substernal and radiates to the right side of his chest. It is worsened with exertion. He had associated diaphoresis earlier today. He denies nausea, vomiting, shortness of breath. He was recently diagnosed with at rial fibrillation and has seen Dr. Chino. He is scheduled for heart cath on February 14. He is currently on Xarelto. He has no known coronary disease risk factors. He is not a smoker. No PE/DVT risk facto rs. Physical Examination: Vitals are stable. Patient is afebrile. Alert no acute distress. HEENT exam is unremarkable. Neck is supple. Lungs are clear and equal bilaterally. Heart is regular rate and r hythm. Abdomen is soft nontender nondistended. Extremities are unremarkable. Skin is warm and dry. No focal neurologic deficit. Remainder of exam is unremarkable. Emergency Department Course and Joy tment: Patient was given aspirin on arrival. EKG shows A. fib rate of 90. Chest x-ray shows no acute process. CBC unremarkable. Chemistries unremarkable other than creatinine of 1.33. Troponin is negati ve. On repeat evaluation, patient is pain-free. Will discuss with the hospitalist for admission Disposition: Admission Impression: Chest pain This note was generated with [employer] dictation software . It may contain incorrect words, spelling, and punctuation that were not noted in review of the chart prior to signing ED Disposition - Plan for ED Patient: Chief Complaint: Chest Pain Referrals: Steff Roach [Primary Care Provider] - What to do if you have Problems For any increased pain, shortness of breath, bleeding, nausea or vomiting, chest pain, or any unexpected problems, contact your Tracie sanches Care Provider. Call [email or web address] [facility] ([phone]) or report to the closest Emergency Room. Call 911 if necessary. 01/31/18 0727 <Electronically signed by Akilah Dia MD> Vic e Akilah Dia MD Cosigner Signature (If Indicated): Date CC: Steff Carrington NP 31-Jan-2018 Chest 1 View (Portable) Result: Comments: See Note; NOTES: [facility] Imaging Services [address] [place] [address] Chest 1 View (Portable) MR#: [id number] Acct: [id number] Name: NIYA MCKEON Rep #: [id number] : 1955 M 62 From: Justus Moran DO PCP: Steff Carrington NP Status: REG ER Study: Chest 1 View (Portable) Date of Exam: 01/31/18 Exam# [id number] Ordering Dr: Akilah Dia MD STUDY: X-RAY C HEST REASON FOR EXAM: Male, 62 years old. Chest pain. Shortness of breath. TECHNIQUE: Single AP portable view of the chest. COMPARISON: January 11, 2018. FINDINGS: T here is a slightly decreased inspiratory effort. There is no new infiltrate or mass. There is no demonstrated pleural abnormality. Normal size heart. Normal mediastinum and christianne. Normal visualized pulm onary arteries. Normal visualized aortic arch and descending thoracic aorta. There are diffuse degenerative changes of the visualized thoracic spine. Normal visualized ribs, clavicles, and shoulders. There is no demonstrated abnormality of the visualized soft tissue structures of the upper abdomen. RAD/Chest 1 View (Portable) IMPRESSION: No ac giovanni cardiopulmonary disease or interval change. Electronically Signed: Justus Moran DO at 23:05 EDT Tel [phone], Service support , CC: Steff Carrington ESTHETICIAN MAKEUP ARTIST ; Akilah Dia MD 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: Signed 26-Jan-2018 Echocardiogram Complete Result: Comments: See Note; NOTES: [facility] Cardiovascular Services [address] [place] [address] Echo Complete 01/26/18 0903 MR#: [id number] Acct: [id number] Name: NIYA MCKEON ep #: [id number] : 1955 62 From: Balwinder Chino MD Attending Dr: Balwinder Chino MD Status: REG CLI Ordering Dr: Balwinder Chino MD Date: 01/26/18 Location: [facility] Sex: M C Admitted: Reason For S tudy: Afib-Flutter Procedure This was a 2D Doppler, Color Flow transthoracic echocardiogram. Exam performed in department. Left Ventricle Moderately dilated left ventricle. The estimated ejection frac tion is 35 %. There is moderate global hypokinesis of the left ventricle. Right Ventricle Severely dilated right ventricle. Mild global right ventricular systolic dysfunction. Atria The left atrium is severely enlarged. Normal right atrium. Normal atrial septum. Mitral Valve The mitral valve is structurally normal. No prolapse or stenosis seen. Trivial mitral valve insufficiency. Tricuspid Valve No rmal tricuspid valve. Trivial tricuspid valve insufficiency. Unable to estimate RV systolic pressure due to inadequate jet, pulmonary artery pressure probably normal. Aortic Valve Normal aortic valve. Trisinus/trileaflet aortic valve. Pulmonic Valve Normal pulmonic valve. Great Vessels Normal aortic root. Normal arch. Normal inferior vena cava. Inferior vena cava collapse with sniff. Pericardium/P leural No pericardial effusion. MMode/2D Measurements AND Calculations LVIDd: 5.1 cm IVSd: 1.2 cm Ao root diam: 3.6 cm LVIDs: 4.4 cm LVPWd: 1.3 cm LA dimension: 4.4 cm RVDd: 5.3 cm FS: 13.9 % LAV(MOD- bp): 95.7 ml LVAd ap4: 40.8 cm2 SV(MOD-sp4): 41.3 ml LAV(MOD-bp) Indexed: 40.1 ml/m2 EDV(MOD-sp4): 142.2 ml LAV(MOD-sp2): 83.1 ml EDV(sp4-el): 150.2 ml LAV(MOD-sp4): 87.5 ml LVAs ap4: 32.3 cm2 ESV(MOD- sp4): 100.9 ml ESV(sp4-el): 103.5 ml EF(MOD-sp4): 29.0 % EF(sp4-el): 31.1 % SV(sp4-el): 46.7 ml LA A4 area: 28.3 cm2 RA A4 area: 19.9 cm2 Time Measurements MV dec time: 0.21 sec Doppler Measurements AND Calculations MV E max west: 71.2 cm/se c MV P1/2t max west: 81.2 cm/sec Ao V2 max: 81.4 cm/sec MV P1/2t: 62.8 msec Ao max P.7 mmHg MV dec slope: 378.8 cm/sec2 Ao V2 mean: 57.5 cm/sec MVA(P1/2t): 3.5 cm2 Ao mean P.5 mmHg Ao V2 VTI: 14. 3 cm LV V1 max: 62.2 cm/sec PA V2 max: 66.4 cm/sec LV V1 max P.6 mmHg LV V1 mean P.72 mmHg LV V1 mean: 38.7 cm/s ec LV V1 VTI: 10.9 cm Interpretation Summary Moderately dilated left ventricle. The estimated ejection fraction is 35 %. There is moderate global hypokinesis of the left ventricle. Severely dilated righ t ventricle. The left atrium is severely enlarged. Trivial mitral valve insufficiency. Trivial tricuspid valve insufficiency. Unable to estimate RV systolic pressure due to inadequate jet, pulmonary art nesha pressure probably normal. Pt appears to be in atrial fibrillation. There is no comparison study available. __ Ordering Physician: Balwinder Chino Referring Physician: Balwinder Chino Performed By: Erasto Jiang RCS 01/26/18 13 39 Date Balwinder Chino MD CC: Balwinder Chino MD; Dayan Tyson Date Dictated: 01/26/18 0903 Date Transcribed: 01/26/18 1339 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: Signed 23-Jan-2018 Cardiology Visit Report Result: Comments: See Note; NOTES: [facility] [address] [place] [address] OFFICE VISIT Date of Service: 01/23/18 MR#: [id number] Acct: [id number] Name: NIYA MCKEON Rep #: [id number] : 1955 Provider: Balwinder Chino MD Age/Sex: 62/M Location: [facility] [place] Status: Signed HPI HPI Chief Complaint: Irregular heart rate Details: NIYA MCKEON, is a 62 M who presents t o the office today for evaluation of an irregular heartbeat. Apparently he visited the comprehensive internal medicine, on 01/04/18 for a cough and fever and was prescribed antibiotics and albuterol. The patient used albuterol for a few times, but noted significant anxiety but no palpitations. The patient then returned to the now clinic with complaints of an ear infection on 01/11/18, and was found to h ave an irregular heartbeat. An EKG was performed on 01/11/18 upon referral to the emergency room which discovered atrial fibrillation with rapid ventricular response at a rate of 105 bpm. No evidence of p revious myocardial infarction, no acute changes. The patient was completely asymptomatic at that time. He was diagnosed with new onset atrial fibrillation and placed on beta-jose a and Xarelto therapy. He is now here in follow-up. Further history he is a nondiabetic, nonhypertensive, non-smoker, nondrinker, no previous known history of atrial fibrillation. The patient cannot detect that he is in atr ial fibrillation and denies any palpitations, lightheadedness dizziness, chest pain or angina. He is taking and tolerating his medicines well. In our office today's blood pressure is 90/60 with a pulse of 64 and irregular. His physical exam demonstrates clear lungs bilaterally, an irregularly irregular rhythm, normal S1/S2, no murmurs are detected. He has no edema. EKG today demonstrates atrial fibri llation with controlled ventricular response, no previous myocardial infarction. Lipids are pending. Intake Vital Signs01/23/18 Height 6 ft 1 in 01/23/18 Weight: 258 lb 01/23/18 Body Mass Index (BMI ) 34.0 01/23/18 Blood Pressure 90/60 Intake Visit Reasons: IRREG HEART RATE ([facility] ER) Allergies No Known Allergies Allergy (Verified 01/23/18 10:46) Medications albuterol sulfate HFA 90 mcg/actuat ion aerosol inhaler 2 puff INHALATION Q6H PRN 01/22/18 [History Confirmed 01/22/18] metoprolol succinate ER 25 mg tablet,extended release 24 hr 25 mg PO DAILY #30 tab.er.24h 01/23/18 [Rx Confirmed 01/23] rivaroxaban 20 mg tablet 20 mg PO DAILY #30 tab 01/23/18 [Rx Confirmed 01/23/18] FOR[facility]LY [facility] Medical History GERD (gastroesophageal reflux disease) (Chronic) Atrial fibrillation (Acute) Surgical History H/O lateral meniscus repair of left knee (Chronic 2004) Family History Mother Hypertension Cancer lung and ovarian Father Cancer Prostate Social History Smoking Status: Never smoker ROS Const Const: Negative for fatigue, weakness, body ache, fever(s), headache(s ), chills, frequent falls, night sweats, daytime sleepiness, difficulty sleeping, excessive sweating, weight gain, weight loss, increased appetite, poor appetite, anorexia or other Eyes Eyes: Negative f or blind spots, loss of peripheral vision, transient loss of vision, blurry vision, change in vision, double vision, floaters, tunnel vision or other ENT ENT: Negative for headache(s), dizziness, hearin g loss, tinnitus, Nosebleed/epistaxis, balance problems, post nasal drip, lip swelling, tongue swelling, bleeding gums, hoarseness, neck pain, dry mouth or other Cardio Chest Pain: No Palpitations: No E betina: Bilateral (very mild lower legs) Muscle aches with walking: None Resp Respiratory: Negative for SOB with activity, SOB at rest, SOB orthopnea\SOB lying down, Coughing up blood/hemoptysis, chest co ngestion, pain on inspiration, snoring, stridor, wheezing, crackles, paroxysmal nocturnal dyspnea or other GI GI: Negative nausea, vomiting, heartburn, constipation, belching, bloating, cramping, vomiti ng blood/hematemesis, bright, red blood in stools, black,tarry stools, loose stools, Difficulty Swallowing or other : Negative for hematuria, frequent nighttime urination/ nocturia, erectile dysfun ction or abnormal vaginal bleeding Musc Musc: Negative for balance problems, muscle aches/ myalgia, muscle weakness or joint pain Skin Skin: Negative redness, non- healing lesions, rash, unusual bruising , skin ulcer, wounds, jaundice or other Neuro Neuro: Negative for weakness, headache(s), frequent falls, blurry vision, double vision, dizziness, lightheadedness, near syncope, syncope, orthostatic symp toms, confusion, memory loss, restless legs, vertigo, seizures, lack of coordination or other Melquiades Hematologic/Lymphatic: Negative for easy bleeding, easy bruising, enlarged lymph nodes or other Endo En do: Negative for fatigue, excessive sweating, cold intolerance, heat intolerance, flushing, increased thirst/drinking, increased hunger, hair loss, hair growth or other Psych Psych: Negative for anxiety , depression, thoughts of harming anyone, thoughts of harming yourself, visual hallucinations, panic attacks or audible hallucinations Allergy Allergy/Immunology: Negative for lip swelling, Negative for tongue swelling, Negative for rash, Negative for throat swelling, Negative for hives Cardiology Exam Const Appearance: cooperative, healthy appearing and no acute distress Nutritional Appearance: wel l nourished Orientation: alert, oriented x3 and oriented to person Head Head: normal to inspection, atraumatic and normocephalic Nose: external nose normal Face and Sinus: face symmetric Mouth: oral muc osae normal Eyes General: appearance normal, both eyes and all related structures Eyelids: eyelids normal Conjunctivae: conjunctivae normal Pupils: PERRL and normal by confrontation EOM: EOM intact bila terally Neck Neck: normal visual inspection and full ROM Carotids: normal carotid upstroke Chest Chest inspection: normal inspection of the chest Auscultation: Bilateral: Clear to Auscultation Cardio Pa lpation: normal PMI Rate: regular rate Rhythm: irregular rhythm Heart sounds: S1 normal and S2 normal GI GI: normal to inspection, no hepatosplenomegaly and bowel sounds present Neuro General: alert, or iented x3, awake, CN's II-XI intact bilaterally and moves all extremities Skin Skin: no rashes or lesions noted Extremities Pulses: Normal: Right Femoral Pulse, Left Femoral Pulse, Right Dorsalis Pedis Pulse, Left Dorsalis Pedis Pulse, Right Posterior Tibial Pulse, Left Posterior Tibial Pulse, Right Radial Pulse, Left Radial Pulse Lower Extremity Edema: None: Bilateral Psych Psychological: normal affe ct Assessment AND Plan 1. Atrial fibrillation I48.91 Plan 1. Atrial fibrillation: Patient has new onset undetectable atrial fibrillation with controlled ventricular response superimposed on a recent u pper respiratory tract infection with the use of albuterol. Unfortunately the patient is unable to sense his arrhythmia, and therefore is at higher risk for CVA. It is unknown how long he has been in at rial fibrillation but it is been at least since 01/11/18 at which time it was detected. At this point I recommend the patient undergo a 2D echo with Doppler to document his LV function, valvular status a nd pulmonary pressures. In addition I recommended he undergo a treadmill echocardiogram assuming his baseline echo is within normal limits. If his stress test is grossly abnormal for ischemia, he may re quire a diagnostic coronary angiogram. In the meantime he will continue his metoprolol succinate 25 mg daily as well as his Xarelto for at least 3 weeks time at which time I would recommend DC cardiove rsion if he is still in atrial fibrillation. In addition I recommend he undergo a TSH, T4 and lipid profile evaluation for comprehensive cardiac evaluation. 2. Return office in 6 months. This note was generated using a voice recognition system and there may be incorrect words, spelling or punctuation that were not noted when reviewing the office note prior to saving. Orders Orders: Plan Detail Othe r Medications Refilled: Follow Up +6M ([place]) Coding Level of Care Code Off vis,new,level 4 Diagnoses Atrial fibrillation I48.91 Coding Level of Care Code Off vis,new,level 4 Diagnoses Atrial fi brillation I48.91 01/23/18 1119 <Electronically signed by Balwinder Chino MD> Date Balwinder Chino MD Cosign Signature: Date ____ (if applicable) CC: Florence Carranza MD 15-Jan-2018 12 Lead Electrocardiogram Result: Comments: See Note; NOTES: [facility] Cardiovascular Services [address] [place] [address] 12 Lead EKG 01/11/18 1536 MR#: [id number] Acct: [id number] Name: NIYA MCKEON Rep #: [id number] : 1955 62 From: George Mcwilliams MD Attending Dr: Status: DEP ER Ordering Dr: Provider, Ed P. Date: 01/11/18 Location: ED Sex: M C Admitted: Test Reason : PALPS Blood Pressure : / mmHG Vent. Rate : 104 BPM Atrial Rate : 163 BPM P-R Int : 000 ms QRS Dur : 096 ms QT Int : 322 ms P-R-T Axes : 000 029 027 degrees QTc Int : 423 ms Atrial fibrillation Abnormal ECG Confirmed by GEORGE OLIVER MD ([id number]), television news video editor CURLY BAUMANN ([id number]) on 01/15/2018 2:44:33 PM Referred By: ANDREW/SEBAS Confirmed By:GEORGE MCWILLIAMS MD 01/15/18 1444 Date Geroge Mcwilliams MD CC: Florence Carranza MD; ED PHYSICIAN PROVIDER; Rambo Machado MD Signed 11-Jan-2018 Emergency Department Summary Result: Comments: See Note; NOTES: [facility] Medical Records Department [address] [place] [address] Emergency Department Summary 01/11/18 1753 MR#: [id number] Acct: [id number] Name: NIYA MCKEON Rep #: [id number] : 1955 62 From: Rambo Machado MD PCP: Florence Carranza MD Status: DEP ER - ER Visit Summary Date of Service: 01/11/18 Chief Complaint: Irregular heart rhythm H istory of Present Illness: The patient is a 62 M presents to the emergency department with an irregular heart rhythm. The patient was being seen at his urgent care for ear pain. He states he listened to a woman thought that his heart was regular. He has had absolutely no symptoms. He denies chest pain, dyspnea, leg edema, or exertional dyspnea. He has no documented history of coronary vascular disease . He denies headache or weakness. He has no history of easy bleeding or bruising. He does not smoke. There is no family history of heart disease. Patient was sent over for further evaluation. EKG in tri age demonstrated coarse atrial fibrillation versus atrial flutter with intermittent conduction. Physical Examination: Vital signs reviewed General: Well- nourished, well-developed Head: Normocephalic, a traumatic Eyes: Pupils equal and reactive, extraocular muscles intact Neck, supple, no lymphadenopathy Heart: Regular rate and rhythm Respiratory: No distress, clear bilaterally Abdomen: Soft, nontender , nondistended, no peritoneal signs Back: Nontender Extremities: Nontender, no edema, no cords Skin: Normal color no rash Neuro: Alert and oriented, no focal or lateralizing deficits Test Results: [] Emergency Department Course and Treatment: EKG was reviewed. There is no acute ischemic change. The patient has absolutely no symptoms. His labs are obtained were unremarkable. I did discuss the patient with Dr. Chino. He is not tachycardic. He has no evidence of volume overload. He has no acute symptoms. I do feel that he is safe for outpatient therapy. We are going to start him on an anticoagulant and a low-dose beta-jose a. Patient is comfortable this plan of care. His contact information was sent to the cardiology office to ensure outpatient follow-up. He is given his first dose here. He will be discharged home. Treatment Plan: [] Disposition: Discharge Impression: 1. New onset atrial fibrillation This note was generated with [employer] dictation software. It may contain incorrect words, s pelling, and punctuation that were not noted in review of the chart prior to signing ED Disposition - Plan for ED Patient: Chief Complaint: Palpitations Instructions: ED Afib Prescriptions: Metoprolo l Succinate 25 mg PO DAILY #30 tab.er.24h Rivaroxaban [Xarelto] 20 mg PO DAILY #30 tab Referrals: Balwinder Chino MD [STAFF PHYSICIAN] - 3-5 Days What to do if you have Problems For any increased reyna n, shortness of breath, bleeding, nausea or vomiting, chest pain, or any unexpected problems, contact your Primary Care Provider. Call [facility] ([phone]) or report to the closest Emergency Room. Call 911 if necessary. 01/11/18 3227 <Electronically signed by Rambo Machado MD> Date Rambo Machado MD Cosigner Signature ( If Indicated): Date CC: Florence Carranza MD 11-Jan-2018 Chest 1 View (Portable) Result: Comments: See Note; NOTES: [facility] Imaging Services [address] [place] [address] Chest 1 View (Portable) MR#: [id number] Acct: [id number] Name: NIYA MCKEON Rep #: [id number] : 1955 M 62 From: Bo Vivas MD PCP: NOT, DEFINED Status: PRE ER Study: Chest 1 View (Portable) Date of Exam: 01/11/18 Exam# [id number] Ordering Dr: Rambo Machado MD STUDY: X-RAY CHEST REASON FOR EXAM: Male, 62 years old. Dyspnea TECHNIQUE: Single PA view of the chest. COMPARISON: Prior study of 01/01/2018 FINDINGS: The lungs are clear an d expanded. There is no demonstrated pleural abnormality. Normal size heart. Normal mediastinum and christianne. Normal visualized pulmonary arteries. Normal visualized aortic arch and descending thoracic aor ta. There are diffuse degenerative changes of the visualized thoracic spine. Normal visualized ribs, clavicles, and shoulders. There is no demonstrated abnormality of the visualized soft tissue struct ures of the upper abdomen. 0089 RAD/Chest 1 View (Portable) IMPRESSION: Degenerative changes, as described above. No demonstrated acute cardiopulmonar y process. Electronically Signed: Bo Vivas MD at 17:35 EDT , Service support , CC: DEFINED NOT; Rambo Machado MD 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: Signed 01-Jan-2018 Chest PA and Lateral Result: Comments: See Note; NOTES: [facility] Imaging Services [address] [place] [place] [address] Chest PA and Lateral MR#: [id number] Acct: [id number] Name: NIYA MCKEON Rep #: [id number] : 1955 M 62 From: Lakeisha Arevalo MD PCP: Florence Carranza MD Status: REG CLI Study: Chest PA and Lateral Date of Exam: 01/01/18 Exam# [id number] Ordering Dr: Hodan Lockett STUDY: X-RAY CH EST REASON FOR EXAM: Male, 62 years old. Cough for one month. TECHNIQUE: Frontal and lateral views of the chest. COMPARISON: None. FINDINGS: The lungs are hyperi nflated. There are bilateral prominent interstitial markings. Normal size heart. Normal mediastinum and christianne. Normal visualized pulmonary arteries. Normal visualized aortic arch and descending thoracic aorta. There are diffuse degenerative changes of the visualized thoracic spine. Normal visualized ribs, clavicles, and shoulders. There is no demonstrated abnormality of the visualized soft tissue st ructures of the upper abdomen. RAD/Chest PA and Lateral IMPRESSION: Hyperinflated lungs may reflect underlying COPD. Prominent interstitial marissa ings, these may be chronic in nature however cannot exclude underlying interstitial edema and/or an infectious process. Electronically Signed: Lakeisha Arevalo MD at 19:53 EDT Tel , Service support , CC: ESTHETICIAN MAKEUP ARTISTKaroC Hodan Lockett; Florence Carranza MD 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: Signed Immunization Name Dates Details Td (7 years and up) on: 18-Sep-2007 Comments: given in left deltoid,lot #[id number], exp. 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 Status: Active Smoking Status Name Dates Details Never smoker Vital Signs Date Test Result Details :42 Temperature 97.8 f Comments: Method: Temporal Pulse 66 /min Comments: Pattern: Regular Respiration Rate 17 /min Comments: Pattern: Unlabored O2 SAT 96 % Comments: Room air BP Systolic 128 mm[Hg] Comments: Patient Position: Sitting; Cuff Location: Left Arm; Cuff Size: Standard BP Diastolic 72 mm[Hg] Comments: Patient Position: Sitting; Cuff Location: Left Arm; Cuff Size: Standard Weight 264.25 lb Height 73 in Body Mass Index Calculated 34.86 kg/m2 Body Surface Area Calculated 2.42 m2 :11 Temperature 97.3 f Comments: Method: Temporal Pulse 88 /min Comments: Pattern: Regular Respiration Rate 16 /min Comments: Pattern: Unlabored O2 SAT 97 % Comments: Room air BP Systolic 102 mm[Hg] Comments: Patient Position: Sitting; Cuff Location: Left Arm; Cuff Size: Standard BP Diastolic 70 mm[Hg] Comments: Patient Position: Sitting; Cuff Location: Left Arm; Cuff Size: Standard Weight 247 lb Height 73 in Body Mass Index Calculated 32.59 kg/m2 Body Surface Area Calculated 2.35 m2 :28 Temperature 98 f Pulse 71 /min Comments: Pattern: Regular Respiration Rate 17 /min Comments: Pattern: Unlabored O2 SAT 95 % Comments: Room air BP Systolic 142 mm[Hg] Comments: Patient Position: Sitting; Cuff Location: Left Arm; Cuff Size: Standard BP Diastolic 76 mm[Hg] Comments: Patient Position: Sitting; Cuff Location: Left Arm; Cuff Size: Standard Weight 247 lb Height 73 in Body Mass Index Calculated 32.59 kg/m2 Body Surface Area Calculated 2.35 m2 :43 Temperature 97.6 f Comments: Method: Temporal Pulse 64 /min Comments: Pattern: Regular Respiration Rate 18 /min Comments: Pattern: Unlabored O2 SAT 96 % Comments: Room air BP Systolic 120 mm[Hg] Comments: Patient Position: Sitting; Cuff Location: Left Arm; Cuff Size: Large BP Diastolic 80 mm[Hg] Comments: Patient Position: Sitting; Cuff Location: Left Arm; Cuff Size: Large Weight 247 lb Height 73 in Body Mass Index Calculated 32.59 kg/m2 Body Surface Area Calculated 2.35 m2 :42 Temperature 98.2 f Comments: Method: Oral Pulse 70 /min Comments: Pattern: Regular Respiration Rate 18 /min Comments: Pattern: Unlabored BP Systolic 122 mm[Hg] Comments: Patient Position: Sitting; Cuff Location: Left Arm; Cuff Size: Standard BP Diastolic 76 mm[Hg] Comments: Patient Position: Sitting; Cuff Location: Left Arm; Cuff Size: Standard Weight 255 lb Height 73 in Body Mass Index Calculated 33.64 kg/m2 Body Surface Area Calculated 2.39 m2 :24 Temperature 97.4 f Comments: Method: Oral Pulse 68 /min Comments: Pattern: Regular Respiration Rate 18 /min Comments: Pattern: Unlabored BP Systolic 136 mm[Hg] Comments: Patient Position: Sitting; Cuff Location: Right Arm; Cuff Size: Large BP Diastolic 74 mm[Hg] Comments: Patient Position: Sitting; Cuff Location: Right Arm; Cuff Size: Large Weight 0 lb Height 0 in Head Circumference 0.00 cm :31 Pulse 70 /min Comments: Pattern: Regular Respiration Rate 16 /min Comments: Pattern: Unlabored BP Systolic 122 mm[Hg] Comments: Patient Position: Sitting; Cuff Location: Left Arm; Cuff Size: Standard BP Diastolic 78 mm[Hg] Comments: Patient Position: Sitting; Cuff Location: Left Arm; Cuff Size: Standard Weight 255 lb Height 0 in Head Circumference 0.00 cm :52 Pulse 70 /min Comments: Pattern: Regular Respiration Rate 16 /min Comments: Pattern: Unlabored BP Systolic 120 mm[Hg] Comments: Patient Position: Sitting; Cuff Location: Left Arm; Cuff Size: Standard BP Diastolic 84 mm[Hg] Comments: Patient Position: Sitting; Cuff Location: Left Arm; Cuff Size: Standard Weight 225 lb Height 0 in Head Circumference 0.00 cm :07 Temperature 96.9 f Comments: Method: Oral Pulse 66 /min Comments: Pattern: Regular Respiration Rate 17 /min Comments: Pattern: Unlabored O2 SAT 98 % Comments: Room air BP Systolic 124 mm[Hg] Comments: Patient Position: Sitting; Cuff Location: Left Arm; Cuff Size: Standard BP Diastolic 76 mm[Hg] Comments: Patient Position: Sitting; Cuff Location: Left Arm; Cuff Size: Standard Weight 225 lb Height 73 in Body Mass Index Calculated 29.68 kg/m2 Body Surface Area Calculated 2.26 m2 Head Circumference 0.00 cm :01 Temperature 98.2 f Comments: Method: Oral Pulse 60 /min Comments: Pattern: Regular Respiration Rate 18 /min Comments: Pattern: Unlabored BP Systolic 120 mm[Hg] Comments: Patient Position: Sitting; Cuff Location: Left Arm; Cuff Size: Standard BP Diastolic 80 mm[Hg] Comments: Patient Position: Sitting; Cuff Location: Left Arm; Cuff Size: Standard Weight 225 lb Height 73 in Body Mass Index Calculated 29.68 kg/m2 Body Surface Area Calculated 2.26 m2 Head Circumference 0.00 cm Results Date Description Value Details [id number] CALCIFEDIOL ([id number]) Comments: PATIENT NOT FASTINGPERFORMED BY: [employer] TechnologiesCount includes the [facility] [id number] Vitamin D, 25-Hydroxy 37.9 ng/mL (Normal) Range: 30.0-100.0 Comments: Vitamin D deficiency has been defined by the [place] [employer] and an Endocrine Society practice guideline as alevel of serum 25-OH vitamin D less than 20 ng/mL (1,2).The Endocrine Society went on to further define vitamin Dinsufficiency as a level between 21 and 29 ng/mL (2).1. IOM ([place] [employer]). 2010. Dietary reference intakes for calcium and D. [place]: The National Academies Press.2. Alaina MF, Joan NC, Keily ANGLIN, et al. Evaluation, treatment, and prevention of vitamin D deficiency: an Endocrine Society clinical practice guideline. JCEM. 2010; 96(7):1911-30. 24-Kbi-741063:29 IRON ([id number]) Comments: PATIENT NOT FASTINGPERFORMED BY: [employer] [facility] [address] [facility] [place] [id number] Iron 112 ug/dL (Normal) Range: 38-169 00-Are-424395:29 CBC & PLATELETS (AUTO) Comments: PATIENT NOT FASTINGPERFORMED BY: [place] [id number] [facility] [id number] ([id number]) Platelets 192 {x10E3/uL} (Normal) Range: 150-379 RDW 14.6 % (Normal) Range: 12.3-15.4 MCHC 33.1 g/dL (Normal) Range: 31.5-35.7 MCH 28.9 pg (Normal) Range: 26.6-33.0 MCV 87 fL (Normal) Range: 79-97 Hematocrit 46.5 % (Normal) Range: 37.5-51.0 Hemoglobin 15.4 g/dL (Normal) Range: 13.0-17.7 RBC 5.32 {x10E6/uL} (Normal) Range: 4.14-5.80 WBC 10.9 {x10E3/uL} (Abnormal) Range: 3.4-10.8 94-Ubp-496306:29 TSH (THYROID STIMULATING Comments: PATIENT NOT FASTINGPERFORMED BY: [facility] [id number] HORMONE) ([id number]) TSH 5.030 {uIU/mL} (Abnormal) Range: 0.450-4.500 55-Omg-413074:15 Free T3 Comments: Comments: DO NOT DO THESE UNTIL CHINO ORDERED [facility]SH [facility]4 [facility] [address]mpel[address] [facility] [place], [place], [id number] FREE T3 2.5 pg/mL (Normal) Range: 2.18-3.98 49-Rhs-957730:15 PSA,Total - Annual Screen Comments: Comments: DO NOT DO THESE UNTIL CHINO ORDERED TSH T4 [facility] [address] [place], [address] PSA,TOT SCREEN 1.06 ng/mL (Normal) Range: 0.00-4.00 Comments: This test was performed using the TPSA assay method for the[facility] chemistry system. Values obtained with differentassay methods cannot be used interchangably.When changing PSA assays in the course of monitoring apatient, additional sequential testing should be carriedout to confirm baseline values. :15 T4 Free Direct Comments: Comments: DO NOT DO THESE UNTIL ORDERED TSH T4 ONLY[facility] [address] [place], [address] T4 FREE DIRECT 1.17 ng/dL (Normal) Range: 0.76-1.46 :15 T4 Total, Thyroxin Comments: Comments: DO NOT DO THESE UNTIL CHINO ORDERED TSH T4 [facility] [address] [place], [address] T4 THYROXIN 12.4 ug/dL (Abnormal) Range: 4.5-12.1 :15 Thyroid Stim Hormone (TSH) Comments: Comments: DO NOT DO THESE UNTIL CHINO ORDERED TSH T4 [facility] [address] [place], [address] TSH 4.02 {uIU/mL} (Abnormal) Range: 0.358-3.74 :55 Free T3 Comments: [facility] [address] [place], [address] FREE T3 2.5 pg/mL (Normal) Range: 2.18-3.98 27-Zyr-758054:55 PSA,Total - Annual Screen Comments: [facility] [address] [place], [address] PSA,TOT SCREEN 1.68 ng/mL (Normal) Range: 0.00-4.00 Comments: This test was performed using the TPSA assay method for theM.[employer]. [employer] chemistry system. Values obtained with differentassay methods cannot be used interchangably.When changing PSA assays in the course of monitoring apatient, additional sequential testing should be carriedout to confirm baseline values. :55 T4 Free Direct Comments: [facility] [address] [place], [address] T4 FREE DIRECT 1.09 ng/dL (Normal) Range: 0.76-1.46 15-Msx-685361:55 Thyroid Stim Hormone (TSH) Comments: [facility] [address] [place], [place], [id number] TSH 3.72 {uIU/mL} (Normal) Range: 0.358-3.74 66-Piy-676564:45 Basic Metabolic Profile (BMP) Comments: [facility] [address] [place], [place], [id number] GAP 8 (Normal) Range: 5-15 CO2 24.0 mmol/L (Normal) Range: 21.0-32.0 CL 112 mmol/L (Abnormal) Range: 98-107 K 4.3 mmol/L (Normal) Range: 3.5-5.1 NA 144 mmol/L (Normal) Range: 136-145 CA 9.0 mg/dL (Normal) Range: 8.5-10.1 BUN/CRE 15.8 {RATIO} (Normal) Range: 10-20 Estimated CRCL 66.75 ml/min (Normal) EST GFR - AA 70 mL/min (Normal) Comments: GFR Calc EST GFR 58 mL/min (Abnormal) Comments: Non- GFR Calc CREAT,SERUM 1.33 mg/dL (Abnormal) Range: 0.70-1.30 Comments: The validity of the calculated GFR AND GFRAA in patients over70 years has not been determined. Clinical correlation isessential. BUN 21 mg/dL (Abnormal) Range: 7-18 GLU 104 mg/dL (Normal) Range: 74-106 Comments: Fasting Glucose result from 100 to 125 mg/dLsuggests IMPAIRED HOMEOSTASIS per A.D.A. criteria.Please note revised GLUCOSE reference range fflgxwush53/02/2018. 42-Yor-627392:45 CBC W/Diff, Automated Comments: [facility] [address] [place], [place], [id number] Absolute Lymph 3.07 {X10_3/ul} (Normal) Range: 0.83-4.51 Absolute Neut 5.9 {X10_3/uL} (Normal) Range: 2.0-7.7 IM GRAN % 0.300 % (Normal) Range: 0.0-0.9 Comments: IG% - Immature Granulocytes (promyelocytes, myelocytes andmetamyelocytes) > 1% indicates that a LEFT SHIFT is Present. BASO% 0.4 % (Normal) Range: 0-1 EO% 2.7 % (Normal) Range: 0-5 MONO% 7.8 % (Normal) Range: 0-10 LY% 30.5 % (Normal) Range: 19-41 NEUT% 58.3 % (Normal) Range: 47-70 MPV 9.7 fL (Normal) Range: 6.2-12.0 PLT 154 K/mm3 (Normal) Range: 150-450 RDW SD 43.6 fL (Normal) Range: 35.1-43.9 RDW CV 14.3 % (Normal) Range: 11.6-14.6 MCHC 33.8 {g/gl} (Normal) Range: 32-36 MCH 28.3 pg (Normal) Range: 27.0-32.0 MCV 83.7 fL (Normal) Range: 80-94 HCT 47.6 % (Normal) Range: 40-54 HGB 16.1 g/dL (Normal) Range: 13.0-16.5 RBC 5.69 {M/mm3} (Normal) Range: 4.6-6.2 WBC 10.1 K/mm3 (Normal) Range: 4.4-11.0 20-Azh-597901:45 Troponin-I Comments: [address] [place], [address] TROPONIN-I < 0.015 ng/mL (Normal) Comments: TROPONIN-I EXPECTED VALUES <0.045 Negative 0.045 - 0.590 Consistent with Cardiac Damage > OR = 0.600 Critical Value Not every elevated troponin is indicative of CO. T hesevalues should be used with clinical judgement in examiningthe patient's clinical picture for diagnosis. To establisha diagnosis of CO versus myocardial injury, there must be ademonstrated rise and/ or fall in the troponin values, inaddition to ischemic symptoms, EKG changes, new regionalwall motion abnormality, and/or angiographical evidence. PLEASE NOTE: REFERENCE RANGES EDITED 11/20/1729-Jan-201850-Lqm-357595:54 Basic Metabolic Profile (BMP) Comments: Comments: For heart cathComments: [facility] [address] [place], [address] GAP 10 (Normal) Range: 5-15 CO2 22.0 mmol/L (Normal) Range: 21.0-32.0 CL 109 mmol/L (Abnormal) Range: 98-107 K 4.4 mmol/L (Normal) Range: 3.5-5.1 NA 141 mmol/L (Normal) Range: 136-145 CA 9.1 mg/dL (Normal) Range: 8.5-10.1 BUN/CRE 16.7 {RATIO} (Normal) Range: 10-20 EST GFR - AA 90 mL/min (Normal) Comments: GFR Calc EST GFR 74 mL/min (Normal) Comments: Non- GFR Calc CREAT,SERUM 1.08 mg/dL (Normal) Range: 0.70-1.30 Comments: The validity of the calculated GFR AND GFRAA in patients over70 years has not been determined. Clinical correlation isessential. BUN 18 mg/dL (Normal) Range: 7-18 GLU 79 mg/dL (Normal) Range: 74-106 Comments: Please note revised GLUCOSE reference range vxhleozkn78/02/2018. 28-Jbj-384076:54 Basic Metabolic Profile (BMP) Comments: Comments: For heart cathComments: For heart [facility] [address] [place], [place], [id number] GAP 10 (Normal) Range: 5-15 CO2 22.0 mmol/L (Normal) Range: 21.0-32.0 CL 109 mmol/L (Abnormal) Range: 98-107 K 4.4 mmol/L (Normal) Range: 3.5-5.1 NA 141 mmol/L (Normal) Range: 136-145 CA 9.1 mg/dL (Normal) Range: 8.5-10.1 BUN/CRE 16.7 {RATIO} (Normal) Range: 10-20 EST GFR - AA 90 mL/min (Normal) Comments: GFR Calc EST GFR 74 mL/min (Normal) Comments: Non- GFR Calc CREAT,SERUM 1.08 mg/dL (Normal) Range: 0.70-1.30 Comments: The validity of the calculated GFR AND GFRAA in patients over70 years has not been determined. Clinical correlation isessential. BUN 18 mg/dL (Normal) Range: 7-18 GLU 79 mg/dL (Normal) Range: 74-106 Comments: Please note revised GLUCOSE reference range bmimitiov90/02/2018. 18-Ouq-753890:54 CBC-Complete Blood Cnt No Diff Comments: [facility] [address] [place], [place], [phone](975) MPV 10.2 fL (Normal) Range: 6.2-12.0 PLT 177 K/mm3 (Normal) Range: 150-450 RDW SD 42.5 fL (Normal) Range: 35.1-43.9 RDW CV 14.4 % (Normal) Range: 11.6-14.6 MCHC 35.2 {g/gl} (Normal) Range: 32-36 MCH 28.8 pg (Normal) Range: 27.0-32.0 MCV 81.7 fL (Normal) Range: 80-94 HCT 47.7 % (Normal) Range: 40-54 HGB 16.8 g/dL (Abnormal) Range: 13.0-16.5 RBC 5.84 {M/mm3} (Normal) Range: 4.6-6.2 WBC 9.6 K/mm3 (Normal) Range: 4.4-11.0 09-Mij-080197:54 CBC-Complete Blood Cnt No Diff Comments: [facility] [address] [place], [place], [address](580) MPV 10.2 fL (Normal) Range: 6.2-12.0 PLT 177 K/mm3 (Normal) Range: 150-450 RDW SD 42.5 fL (Normal) Range: 35.1-43.9 RDW CV 14.4 % (Normal) Range: 11.6-14.6 MCHC 35.2 {g/gl} (Normal) Range: 32-36 MCH 28.8 pg (Normal) Range: 27.0-32.0 MCV 81.7 fL (Normal) Range: 80-94 HCT 47.7 % (Normal) Range: 40-54 HGB 16.8 g/dL (Abnormal) Range: 13.0-16.5 RBC 5.84 {M/mm3} (Normal) Range: 4.6-6.2 WBC 9.6 K/mm3 (Normal) Range: 4.4-11.0 :54 Partial Thromboplast Time Comments: Comments: For heart cathComments: For [facility] [address] [place], [address] PTT 29.6 s (Normal) Range: 24.1-36.2 :54 Partial Thromboplast Time Comments: Comments: For heart cathComments: For [facility] [address] [place], [address] PTT 29.6 s (Normal) Range: 24.1-36.2 :54 Prothrombin Time w/INR Comments: Comments: For heart cathComments: For [facility] [address] [place], [place], [phone] INR 1.0 (Normal) PROTIME 13.5 s (Normal) Range: 11.7-14.9 :54 Prothrombin Time w/INR Comments: Comments: For heart cathComments: For [facility] [address] [place], [address] INR 1.0 (Normal) PROTIME 13.5 s (Normal) Range: 11.7-14.9 :05 Lipid Profile Comments: [facility] [address] [place], [place], [id number] VLDL 18 mg/dL (Normal) Range: 5-40 LDL 112 mg/dL (Normal) Range: 0-130 HDL 38 mg/dL (Abnormal) Comments: The drugs N-Acetylcysteine and Metamizole may falselydepress this assay. Reference Range HDL <40 mg/dL Low HDL Cholesterol HDL >or= 60 mg/dL High HDL Cholesterol TRIG 92 mg/dL (Normal) Comments: The drugs N-Acetylcysteine and Metamizole may falselydepress this assay.Serum Triglycerides Reference Interval Normal <150 mg/dL Borderline high 150 - 199 mg/dL High 200 - 499 mg/dL Very High > or = 500 mg/dL CHOL 168 mg/dL (Normal) Comments: <200 mg/dL Desirable 200-240 mg/dL Borderline >240 mg/dL High Risk 62-Xem-26850:05 Liver Profile Comments: [facility] [address] [place], [id number] D BILI 0.28 mg/dL (Normal) Range: 0.00-0.30 T BILI 1.60 mg/dL (Abnormal) Range: 0.20-1.00 ALT 41 U/L (Normal) Range: 16-61 ALK P 76 U/L (Normal) Range: 45-117 AST 31 U/L (Normal) Range: 15-37 GLOB 3.5 g/dL (Normal) Range: 2.2-4.2 ALB 3.7 g/dL (Normal) Range: 3.2-5.0 T PROT 7.2 g/dL (Normal) Range: 6.4-8.2 47-Txn-66541:05 T4 Total, Thyroxin Comments: [facility] [address] [place], [address] T4 THYROXIN 8.7 ug/dL (Normal) Range: 4.5-12.1 10-Crd-95303:05 Thyroid Stim Hormone (TSH) Comments: [facility] [address] [place], [address] TSH 7.24 {uIU/mL} (Abnormal) Range: 0.358-3.74 2-Lna-178928:44 Basic Metabolic Profile (BMP) Comments: [facility] [address] [place], [place], [id number] GAP 8 (Normal) Range: 5-15 CO2 21.0 mmol/L (Normal) Range: 21.0-32.0 CL 113 mmol/L (Abnormal) Range: 98-107 K 4.2 mmol/L (Normal) Range: 3.5-5.1 NA 142 mmol/L (Normal) Range: 136-145 CA 9.1 mg/dL (Normal) Range: 8.5-10.1 BUN/CRE 17.3 {RATIO} (Normal) Range: 10-20 Estimated CRCL 69.90 ml/min (Normal) EST GFR - AA 74 mL/min (Normal) Comments: GFR Calc EST GFR 61 mL/min (Normal) Comments: Non- GFR Calc CREAT,SERUM 1.27 mg/dL (Normal) Range: 0.70-1.30 Comments: The validity of the calculated GFR AND GFRAA in patients over70 years has not been determined. Clinical correlation isessential. BUN 22 mg/dL (Abnormal) Range: 7-18 GLU 105 mg/dL (Normal) Range: 74-106 Comments: Fasting Glucose result from 100 to 125 mg/dLsuggests IMPAIRED HOMEOSTASIS per A.D.A. criteria.Please note revised GLUCOSE reference range fxhinylin09/02/2018. 4-Yii-787345:44 CBC W/Diff, Automated Comments: [facility] [address] [place], [place], [id number] Absolute Lymph 2.30 {X10_3/ul} (Normal) Range: 0.83-4.51 Absolute Neut 7.4 {X10_3/uL} (Normal) Range: 2.0-7.7 IM GRAN % 0.300 % (Normal) Range: 0.0-0.9 Comments: IG% - Immature Granulocytes (promyelocytes, myelocytes andmetamyelocytes) > 1% indicates that a LEFT SHIFT is Present. BASO% 0.2 % (Normal) Range: 0-1 EO% 1.8 % (Normal) Range: 0-5 MONO% 7.0 % (Normal) Range: 0-10 LY% 21.6 % (Normal) Range: 19-41 NEUT% 69.1 % (Normal) Range: 47-70 MPV 9.3 fL (Normal) Range: 6.2-12.0 PLT 187 K/mm3 (Normal) Range: 150-450 RDW SD 42.1 fL (Normal) Range: 35.1-43.9 RDW CV 13.9 % (Normal) Range: 11.6-14.6 MCHC 34.6 {g/gl} (Normal) Range: 32-36 MCH 28.6 pg (Normal) Range: 27.0-32.0 MCV 82.7 fL (Normal) Range: 80-94 HCT 48.8 % (Normal) Range: 40-54 HGB 16.9 g/dL (Abnormal) Range: 13.0-16.5 RBC 5.90 {M/mm3} (Normal) Range: 4.6-6.2 WBC 10.6 K/mm3 (Normal) Range: 4.4-11.0 :44 Prothrombin Time w/INR Comments: [facility] [address] [place], [place], [id number] INR 1.0 (Normal) PROTIME 13.5 s (Normal) Range: 11.7-14.9 6-Zcf-410280:44 Troponin-I Comments: [facility] [address] [place], [place], [phone] TROPONIN-I < 0.015 ng/mL (Normal) Comments: TROPONIN-I EXPECTED VALUES <0.045 Negative 0.045 - 0.590 Consistent with Cardiac Damage > OR = 0.600 Critical Value Not every elevated troponin is indicative of CO. T hesevalues should be used with clinical judgement in examiningthe patient's clinical picture for diagnosis. To establisha diagnosis of CO versus myocardial injury, there must be ademonstrated rise and/ or fall in the troponin values, inaddition to ischemic symptoms, EKG changes, new regionalwall motion abnormality, and/or angiographical evidence. PLEASE NOTE: REFERENCE RANGES EDITED 17:17 CBC-Complete Blood Cnt No Diff Comments: [facility] [address] [place], [place], [phone] MPV 9.8 fL (Normal) Range: 6.2-12.0 PLT 194 K/mm3 (Normal) Range: 150-450 RDW SD 42.1 fL (Normal) Range: 35.1-43.9 RDW CV 14.1 % (Normal) Range: 11.6-14.6 MCHC 34.1 {g/gl} (Normal) Range: 32-36 MCH 28.0 pg (Normal) Range: 27.0-32.0 MCV 82.1 fL (Normal) Range: 80-94 HCT 47.2 % (Normal) Range: 40-54 HGB 16.1 g/dL (Normal) Range: 13.0-16.5 RBC 5.75 {M/mm3} (Normal) Range: 4.6-6.2 WBC 7.0 K/mm3 (Normal) Range: 4.4-11.0 :17 Comprehensive Metabolic Profil Comments: [facility] [address] [place], [place], [phone] GAP 10 (Normal) Range: 5-15 CO2 23.0 mmol/L (Normal) Range: 21.0-32.0 CL 110 mmol/L (Abnormal) Range: 98-107 K 4.2 mmol/L (Normal) Range: 3.5-5.1 NA 143 mmol/L (Normal) Range: 136-145 T BILI 1.00 mg/dL (Normal) Range: 0.20-1.00 ALT 53 U/L (Normal) Range: 12-78 ALK P 82 U/L (Normal) Range: 50-136 AST 35 U/L (Normal) Range: 15-37 CA 8.7 mg/dL (Normal) Range: 8.5-10.1 A/G 1.0 {RATIO} (Normal) Range: 0.9-2.4 GLOB 3.6 g/dL (Abnormal) Range: 2.3-3.5 ALB 3.7 g/dL (Normal) Range: 3.4-5.0 T PROT 7.3 g/dL (Normal) Range: 6.4-8.2 BUN/CRE 16.1 {RATIO} (Normal) Range: 10-20 EST GFR - AA 81 mL/min (Normal) Comments: GFR Calc EST GFR 67 mL/min (Normal) Comments: Non- GFR Calc CREAT,SERUM 1.18 mg/dL (Normal) Range: 0.70-1.30 Comments: The validity of the calculated GFR AND GFRAA in patients over70 years has not been determined. Clinical correlation isessential. BUN 19 mg/dL (Abnormal) Range: 7-18 GLU 83 mg/dL (Normal) Range: 70-110 :17 Lipid Profile Comments: [facility] [address] [place], [place], [phone] VLDL 10 mg/dL (Normal) Range: 5-40 LDL 96 mg/dL (Normal) Range: 0-130 HDL 41 mg/dL (Normal) Comments: Reference Range HDL <40 mg/dL Low HDL Cholesterol HDL >or= 60 mg/dL High HDL Cholesterol TRIG 50 mg/dL (Normal) Comments: Serum Triglycerides Reference Interval Normal <150 mg/dL Borderline high 150 - 199 mg/dL High 200 - 499 mg/dL Very High > or = 500 mg/dL CHOL 147 mg/dL (Normal) Comments: <200 mg/dL Desirable 200-240 mg/dL Borderline >240 mg/dL High Risk 58-Ejj-43796:17 PSA,Total - Annual Screen Comments: [facility] [address] [place], [address] PSA,TOT SCREEN 1.45 ng/mL (Normal) Range: 0.00-4.00 Comments: This test was performed using the TPSA assay method for [employer].me chemistry system. Values obtained with differentassay methods cannot be used interchangably.When changing PSA assays in the course of monitoring apatient, additional sequential testing should be carriedout to confirm baseline values. 0-Frg-643943:27 Anaerobic and Aerobic Culture Comments: Clinical Information: SRC:AM RT UPPER LAT. PERFORMED BY: [employer] includes the [facility] [id number] Aerobic Culture Final report (Normal) Anaerobic Culture Final report (Normal) Result 1 NANG72 (Normal) Comments: No anaerobic growth in 72 hours. Result 1 BACNBA (Normal) Comments: Bacillus species, not Bacillus anthracisModerate growthSusceptibility not normally performed on this organism. 37-Rjc-477138:25 T4, FREE (THYROXINE) (52382) Comments: PATIENT NOT FASTINGPERFORMED BY: [employer] includes the [facility] [id number] T4,Free(Direct) 1.00 ng/dL (Normal) Range: 0.61-1.76 89-Eku-919982:25 T3, FREE (TRIDOTHYRONINE) (77957) Comments: PATIENT NOT FASTINGPERFORMED BY: [employer] includes the [facility] [id number] Triiodothyronine,Free,Serum 3.1 pg/mL (Normal) Range: 2.3-4.2 20-Kob-757122:25 TSH (98445) Comments: PATIENT NOT FASTINGClinical Information: ADD DRAW FEE 271089 ADD J 82611 PERFORMED BY: PollGroundHam[facility] CenterDfvqks5918 [facility] [id number] TSH 3.691 {uIU/mL} (Normal) Range: 0.450-4.500 :25 Anti-TPO Antibody (10750) Comments: PATIENT NOT FASTINGPERFORMED BY: LabCoHam[facility] CenterTgintq8662 [facility] [id number] Thyroid Peroxidase (TPO) Ab <10 {IU/mL} (Normal) Range: 0-34 :44 Thyroxine (T4) Free, Direct, S Comments: PATIENT WAS FASTINGClinical Information: ADD DRAW FEE 000703 ADD J 20982 PERFORMED BY: [employer] Dapcuf4105 [facility] [id number] T4,Free(Direct) 0.88 ng/dL Range: 0.61-1.76 (Normal) Triiodothyronine,Free,Seru 3.1 pg/mL (Normal) Comments: PATIENT WAS FASTINGPERFORMED BY: [employer] Jnheky4368 [facility] [id number] :44 m Range: 2.3-4.2 Written Authorization WAR (Normal) Comments: PATIENT WAS FASTINGPERFORMED BY: THE [facility]MP[facility] JOINTFormerly [facility]6370 [facility] [id number] :44 Comments: Written Authorization Received.Authorization received from DR CARRANZA [id number] by Leigh Ann Diehl :44 PSA (PROSTATE SPECIFIC Comments: PATIENT WAS FASTINGPERFORMED BY: [facility] Ergbba5766 [facility] [id number] ANTIGEN) (V76.44) Prostate Specific Ag, Serum 2.3 ng/mL (Normal) Range: 0.0-4.0 Comments: Fahad ECLIA methodology. .According to the [place] [employer], PSA should beundetectable after radical prostatectomy. A PSA of less than0.5 ng/mL (or undetectable) is not likely to be associated withdisease recurrence within five years of treatment.Values obtained with different assay methods or kits cannot be usedinterchang eably. Results cannot be interpreted as absolute evidenceof the presence or absence of malignant disease. :44 Lipid Panel (54229) Comments: PATIENT WAS FASTINGPERFORMED BY: [employer] CenterZttnub5259 [facility] [id number] Cholesterol, Total 182 mg/dL (Normal) Range: 100-199 Comment SPRCS (Normal) Comments: If initial LDL-cholesterol result is >100 mg/dL, assess forrisk factors. HDL Cholesterol 53 mg/dL (Normal) Comments: According to ATP-III Guidelines, HDL-C >59 mg/dL is considered anegative risk factor for CHD. LDL Cholesterol Calc 115 mg/dL (Abnormal) Range: 0-99 LDL/HDL Ratio 2.2 {ratio_units} (Normal) Range: 0.0-3.6 Triglycerides 71 mg/dL (Normal) Range: 0-149 VLDL Cholesterol Uday 14 mg/dL (Normal) Range: 5-40 :44 METABOLIC PANEL, COMPREHENSIVE Comments: PATIENT WAS FASTINGPERFORMED BY: [employer] Mojswc8618 [facility] [id number] (02298) A/G Ratio 1.5 (Normal) Range: 1.1-2.5 Albumin, Serum 4.2 g/dL (Normal) Range: 3.5-5.5 Alkaline Phosphatase, S 80 [iU]/L (Normal) Range: 25-150 ALT (SGPT) 30 [iU]/L (Normal) Range: 0-55 AST (SGOT) 29 [iU]/L (Normal) Range: 0-40 Bilirubin, Total 1.0 mg/dL (Normal) Range: 0.1-1.2 BUN 12 mg/dL (Normal) Range: 5-26 BUN/Creatinine Ratio 11 (Normal) Range: 8-27 Calcium, Serum 9.5 mg/dL (Normal) Range: 8.5-10.6 Carbon Dioxide, Total 23 mmol/L (Normal) Range: 20-32 Chloride, Serum 107 mmol/L (Normal) Range: 97-108 Creatinine, Serum 1.10 mg/dL (Normal) Range: 0.76-1.27 Globulin, Total 2.8 g/dL (Normal) Range: 1.5-4.5 Glom Filt Rate, Est >59 mL/min/1.73 (Normal) Glucose, Serum 82 mg/dL (Normal) Range: 65-99 If -Nepalese >59 mL/min/1.73 Comments: Note: Persistent reduction for 3 months or more in an eGFR<60 mL/min/1.73 m2 defines CKD. Patients with eGFR values>/=60 mL/min/1.73 m2 may also have CKD if evidence of persistentproteinur ia is (Normal) present. Additional information may be found [email or web address]. Potassium, Serum 4.6 mmol/L (Normal) Range: 3.5-5.2 Protein, Total, Serum 7.0 g/dL (Normal) Range: 6.0-8.5 Sodium, Serum 141 mmol/L (Normal) Range: 135-145 :44 CBC WITH MANUAL DIFF (33700) Comments: PATIENT WAS FASTINGClinical Information: ADD DRAW FEE 854510 ADD J 28689 PERFORMED BY: [facility] Wrdivw5363 [facility] [id number] Baso (Absolute) 0.1 {x10E3/uL} (Normal) Range: 0.0-0.2 Basos 1 % (Normal) Range: 0-3 Eos 4 % (Normal) Range: 0-7 Eos (Absolute) 0.3 {x10E3/uL} (Normal) Range: 0.0-0.4 Hematocrit 43.8 % (Normal) Range: 36.0-50.0 Hemoglobin 15.0 g/dL (Normal) Range: 12.5-17.0 Lymphs 26 % (Normal) Range: 14-46 Lymphs (Absolute) 1.7 {x10E3/uL} (Normal) Range: 0.7-4.5 MCH 27.7 pg (Normal) Range: 27.0-34.0 MCHC 34.2 g/dL (Normal) Range: 32.0-36.0 MCV 81 fL (Normal) Range: 80-98 Monocytes 8 % (Normal) Range: 4-13 Monocytes(Absolute) 0.5 {x10E3/uL} (Normal) Range: 0.1-1.0 Neutrophils 61 % (Normal) Range: 40-74 Neutrophils (Absolute) 4.0 {x10E3/uL} (Normal) Range: 1.8-7.8 Platelets 188 {x10E3/uL} (Normal) Range: 140-415 RBC 5.40 {x10E6/uL} (Normal) Range: 4.10-5.60 RDW 15.0 % (Normal) Range: 11.7-15.0 WBC 6.6 {x10E3/uL} (Normal) Range: 4.0-10.5 :44 TSH (03763) Comments: PATIENT WAS FASTINGPERFORMED BY: [facility]Co[facility] CenterOvwqkr2990 [facility] [id number] TSH 6.078 {uIU/mL} (Abnormal) Range: 0.450-4.500 :06 COMP METABOLIC A/G 1.2 {RATIO} (Normal) Range: 0.9-2.4 ALB 3.7 g/dL (Normal) Range: 3.4-5.0 ALK P 71 U/L (Normal) Range: 50-136 ALT 45 [iU]/L (Normal) Range: 30-65 AST 30 U/L (Normal) Range: 15-37 BUN 15 mg/dL (Normal) Range: 7-18 BUN/CRE 13.6 {RATIO} (Normal) Range: 10-20 CA 8.6 mg/dL (Normal) Range: 8.5-10.1 CL 106 mmol/L (Normal) Range: 98-107 CO2 28.9 mmol/L (Normal) Range: 21.0-32.0 Comments: Please Note Reference Interval Change CREAT,SERUM 1.1 mg/dL (Normal) Range: 0.8-1.3 GAP 5 (Normal) Range: 5-15 GLOB 3.1 g/dL (Normal) Range: 2.7-4.2 Comments: Please Note Reference Interval Change GLU 78 mg/dL (Normal) Range: 70-110 K 4.1 mmol/L (Normal) Range: 3.5-5.1 NA 140 mmol/L (Normal) Range: 136-145 T BILI 1.00 mg/dL (Normal) Range: 0.00-1.00 T PROT 6.8 g/dL (Normal) Range: 6.4-8.2 :06 D BILI 0.19 mg/dL (Normal) Range: 0.00-0.30 : PSA,TOT SCREEN 1.92 ng/mL (Normal) Range: 0.00-4.00 Comments: This test was performed using the TPSA method for theOptireno chemistry system.Values obtained with different assay methods cannot be usedinterchangably.When changing PSA assays in the course of monito ring apatient, additional sequential testing should be carriedout to confirm baseline values. Plan of Care Name Dates Details Instructions Rash of unknown cause : Follow up in 3 months Indication: Rash of unknown cause Current nonsmoker (Renamed from Current non-smoker) : Eprescribed prescriptions (G8553) Indication: Current nonsmoker (Renamed from Current non-smoker) CKD stage G2/A1, GFR 60-89 and albumin creatinine ratio <30 mg/g : Follow up in 3 months Indication: CKD stage G2/A1, GFR 60-89 and albumin creatinine ratio <30 mg/g Current nonsmoker (Renamed from Current non-smoker) : Eprescribed prescriptions (G8553) Indication: Current nonsmoker (Renamed from Current non-smoker) Cough : Follow up if no improvement or if symptoms worsen Indication: Cough Sinusitis, bacterial : Sinusitis *: sinus infection Indication: Sinusitis, bacterial BMI 32.0-32.9,adult : Eprescribed prescriptions (G8553) Indication: BMI 32.0-32.9,adult Skin lesion : I/D Cyst/Abscess Indication: Skin lesion Palpitations : *palpitation discusssion Indication: Palpitations Cough : Antibiotic Usage Education - Male Indication: Cough Encounter for routine history and physical exam for male : Colon Cancer Screening Indication: Encounter for routine history and physical exam for male Planned Observations Metabolic Panel, Comprehensive (24018)Indication: Hypertension On: 9-Tur-913933:40 Request TSH (THYROID STIMULATING HORMONE) (51795)Indication: Hypothyroid On: 3-Wty-863787:39 Request LIPID PANEL (12404)Indication: Hypercholesteremia On: 7-Ozy-191479:39 Request TSH (THYROID STIMULATING HORMONE) (80849)Indication: Hypothyroid On: 13-Cxo-92006:31 Request TSH (THYROID STIMULATING HORMONE) (05346)Indication: Hypothyroid On: 5-Qwr-972356:28 Request PSA (PROSTATE SPECIFIC ANTIGEN) (V76.44)Indication: Screening for prostate cancer On: 04-Ebv-115745:19 Request T3, FREE (TRIDOTHYRONINE) (39731)Indication: Hypothyroid On: 41-Cbs-496497:18 Request T4, FREE (THYROXINE) (97968)Indication: Hypothyroid On: 52-Fhl-060986:18 Request TSH (THYROID STIMULATING HORMONE) (83277)Indication: Hypothyroid On: 28-Zdt-485773:18 Request CBC (Auto) (11386)Indication: Encounter for routine history and physical exam for male On: 94-Fol-318958:38 Request Metabolic Panel, Comprehensive (10273)Indication: Encounter for routine history and physical exam for male On: :38 Request LIPID PANEL (39884)Indication: Encounter for routine history and physical exam for male On: 54-Iga-375364:37 Request PSA (Prostate Specific Antigen), Screening (02504)Indication: Screening for prostate cancer On: 86-Whi-809374:43 Request BARRETT CULTURE-OTHER (33889)Indication: Skin lesion On: 15-Apr-20099:09 Request Comments: rt lateral side area of splinter removal HEPATIC FUNCTION PANEL (15408)Indication: oncomycosis On: 21-Crk-032671:15 Request Comments: 8 weeks Metabolic Panel, Comprehensive (07689)Indication: oncomycosis On: 41-Wtu-448375:10 Request Glucose (68476)Indication: Encounter for routine history and physical exam for male On: 52-Tqm-31591:41 Request PSA (PROSTATE SPECIFIC ANTIGEN) (V76.44)Indication: Encounter for routine history and physical exam for male On: :39 Request Planned Encounters Medical; 3 Month FU - On: 22-Aug-2018 8:30 Comprehensive Internal Medicine Charissa NOWAK, Steff Carrington CNP, Steff Flynn Planned Procedures Spirometry (48856)By: Levy On: 01-Jan-2018 Intent Hodan Comments: Normal Spirometry CHEST XRAY, PA & LATERAL On: 01-Jan-2018 Intent (14892)By: Hodan Lockett Ear Irrigation (28009)By: Momo On: 08-Jul-2011 Intent Florence WASSERMAN Comments: left ear irrigated and removed moderate amoutn of yellow wax without difficulty. no bleeding or pain. auditory canal clear now. done by raymond Radford CurettesBy: Florence Carranza MD On: 08-Jul-2011 Intent TDAP VACCINE >7 IM (38884)By: On: 15-Apr-2009 Intent Ciesa ASSOCIATE MARKETING MANAGER, Zenobia Ciesa ASSOCIATE MARKETING MANAGER, Zenobia Holter Moniter (96576)By: Momo On: 12-Aug-2008 Intent Florence WASSERMAN EKG (13344)By: Florence Carranza MD On: 12-Aug-2008 Intent Comments: rhthym Spirometry (77807)By: Omid BOX, On: 01-Oct-2007 Intent Carmen Roy Comments: good effort and curve- with mild obstruction Inhaler Demo (48435)By: Omid BOX, On: 01-Oct-2007 Intent Carmen Manuela Aerosol Treatment (83812)By: Omid On: 01-Oct-2007 Carmen Coppola DO Pulse Oximetry (08769)By: Humphrey On: 01-Oct-2007 Intent CONSUMER SAFETY OFFICER, Sravanthi TD Injection , IM (36227)By: On: 18-Sep-2007 Intent Florence Carranza MD Comments: given in left deltoid,lot #[id number], exp. December 20 2007 AW Instructions Name Dates Details Current nonsmoker (Renamed from Current non-smoker) : How to access health information online Indication: Current nonsmoker (Renamed from Current non-smoker) Current nonsmoker (Renamed from Current non-smoker) : How to access health information online - Detail Indication: Current nonsmoker (Renamed from Current non-smoker) Rash of unknown cause : Patient Instructions Indication: Rash of unknown cause Current nonsmoker (Renamed from Current non-smoker) : How to access health information online Indication: Current nonsmoker (Renamed from Current non-smoker) Current nonsmoker (Renamed from Current non-smoker) : How to access health information online - Detail Indication: Current nonsmoker (Renamed from Current non-smoker) CKD stage G2/A1, GFR 60-89 and albumin creatinine ratio <30 mg/g : Patient Instructions Indication: CKD stage G2/A1, GFR 60-89 and albumin creatinine ratio <30 mg/g BMI 32.0-32.9,adult : How to access health information online Indication: BMI 32.0-32.9,adult BMI 32.0-32.9,adult : How to access health information online - Detail Indication: BMI 32.0-32.9,adult Cough : Patient Instructions Indication: Cough Encounter for routine history and physical exam for male : How to access health information online Indication: Encounter for routine history and physical exam for male Encounter for routine history and physical exam for male : How to access health information online - Detail Indication: Encounter for routine history and physical exam for male Encounter for routine history and physical exam for male : Patient Instructions Indication: Encounter for routine history and physical exam for male Encounters Annotation/Addendum On: 22-May-2018 9:30 Encounter Diagnosis: Hypothyroid End: 22-May-2018 9:32 Comprehensive [facility] Medicine Review On: 22-May-2018 8:36 Comprehensive [facility] Medicine Office Visit On: 21-May-2018 9:41 Encounter Reason: Follow up for chronic medical issues - The patient feels well with no complaints, has good energy level and is sleeping well. Patient has been compliant with instructions. Current medication use: no aris End: 21-May-2018 10:48 e effects, compliant with dosing regimen and considered effective by patient. Patient sleeps 6 hours per night. Nutrition: balanced diet., [ADDITIONAL REASON] Rash - Symptoms include skin dryness and skin redness. The skin rash is located on the left leg. Onset was 2 year(s) ago. , [ADDITIONAL REASON] afib - Has had a fib and cardioversion Encounter Diagnosis: Current nonsmoker (Renamed from Current non-smoker), BMI 34.0-34.9,adult, Hypothyroid, Hypercholesteremia, Hypertension, Afib, Elevated hemoglobin, Rash of unknown cause [facility] Annotation/Addendum On: 09-Apr-2018 10:28 Encounter Diagnosis: Hypothyroid End: 09-Apr-2018 10:29 [facility] Annotation/Addendum On: 23-Feb-2018 8:15 Encounter Diagnosis: Unspecified Diagnosis End: 23-Feb-2018 8:18 [facility] Office Visit On: 16-Feb-2018 8:10 Encounter Reason: new patient male physicial - Last seen more than 1 year ago. General health: feels well with minor complaints (i feel good right now), has decreased energy level and is sleeping well. The patient's appe End: 16-Feb-2018 10:35 tite is normal. Nutrition: normal/adequate. Exercises 0 days per week. Sleeps on average 6 hours per night. Normal bowel and bladder habits. Safety measures include appropriate use of safety belts and h ome smoke detectors. There are no current emotional problems.Encounter Diagnosis: Current nonsmoker (Renamed from Current non-smoker), Afib, Hypertension, Hypercholesteremia, GERD (gastroesophageal reflux disease), Hypothyroid, Elevated hemoglobin, Screening for prostate cancer, CKD stage G2/A1, GFR 60-89 and albumin creatinine ratio <30 mg/g [facility] Annotation/Addendum On: 02-Jan-2018 9:46 Encounter Diagnosis: SOB (shortness of breath) on exertion End: 02-Jan-2018 15:23 [facility] Office Visit On: 01-Jan-2018 13:27 Encounter Reason: Cough - Symptoms include cough, chills, fever, runny nose and stuffy nose. Cough onset was 3 week(s) ago. Symptoms are described as worsening. Associated symptoms include postnasal drainage and headache End: 01-Jan-2018 14:11 . Note for Cough: Symptoms started about 2.5 weeks ago-was in a grain bin where there was dust and mold-tried covering mouth and nose but not sure if breathed some in or not. Symptoms come and go-had fever 2.5 weeks ago and then again yesterday 100.3, chills, cough-yellow/clear, sinus drainage-yellow, headache, sinus pressure, some body aches, fatigue, SOB with exertion, wheezing. No CP, heart palpi tations, n/v, constipation or diarrhea. All natural cough suppressant, and Tylenol for fever yesterday.Encounter Diagnosis: Current nonsmoker (Renamed from Current non-smoker), Cough, BMI 32.0-32.9,adult, Sinusitis, bacterial, SOB (shortness of breath) on exertion [facility] Office Visit On: 30-Oct-2015 10:38 Encounter Reason: Physical male exam - Last seen more than 1 year ago. General health: feels well with minor complaints and has decreased energy level. The patient's appetite is normal. Nutrition: normal/adequate. Exerci End: 30-Oct-2015 11:47 ses 3 days per week. Sleeps on average 7 hours per night. Normal bowel and bladder habits. Safety measures include appropriate use of safety belts and home smoke detectors. There are no current emotiona l problems. The patient's libido is normal. Preventative measures done by patient are screening, colonoscopy (2007) and PSA (2008).Encounter Diagnosis: Encounter for routine history and physical exam for male, Current nonsmoker (Renamed from Current non-smoker), Screening for prostate cancer [facility] Office Visit On: 08-Jul-2011 13:42 Encounter Diagnosis: Cerumen impaction (380.4) End: 08-Jul-2011 15:59 [facility] Office Visit On: 15-Apr-2009 8:21 Encounter Diagnosis: Skin lesion (709.9) End: 15-Apr-2009 9:21 [facility] Office Visit On: 18-Sep-2008 13:31 Encounter Reason: Follow up, Diagnostic Procedure Results - Diagnostic tests include other (holter monitor ). Date: (08-25-08). Follow up visit with no current symptoms. Past medical history includes other (GERD, palpatations ). Encounter Diagnosis: End: 18-Sep-2008 14:01 Abnormal TSH (794.5), Palpitations (785.1) [facility] Office Visit On: 12-Aug-2008 9:52 Encounter Reason: Physical male exam - Last seen between 6-12 months ago. General health: feels well with no complaints ,has good energy level and is sleeping well. The patient's appetite is normal. Nutrition: normal/[place] End: 12-Aug-2008 10:35 quate. Exercises 5 days per week. Sleeps on average 8 hours per night. Normal bowel and bladder habits. Safety measures include appropriate use of safety belts and home smoke detectors. There are no cur rent emotional problems. The patient's libido is normal. Preventative measures done by patient are screening, colonoscopy (2007) ,screening, visual acuity (wears glasses 07-18 Dr. Miguel ) ,PSA (2007) and rectal exam (2007). Encounter Diagnosis: GERD (530.81), Palpitations (785.1), Well Male Exam (V70.0) [facility] Office Visit On: 01-Oct-2007 8:01 Encounter Reason: Cough - The onset of the cough has been sudden. The cough is characterized as productive of mucoid sputum. The amount of sputum produced is scanty. The cough occurs mainly at night. The symptoms are agg End: 01-Oct-2007 8:59 ravated by supine posture, but not by smoking ,meals ,particular position ,exposure to dust ,exercise ,exposure to pollens or exposure to fumes. The symptoms have been associated with hoarseness (worse in PM), while the symptoms have not been associated with dysphagia ,dyspnea ,edema ,fever ,foreign body aspiration ,headache ,hemoptysis ,long history of smoking ,night sweats ,runny nose ,sore throat o r weight loss. the color of the sputum is yellowish (white ). Note for Cough: initially pain in right chest with cough-- but now gone-- cough productive of white sputum-- had fever last weekEncounter Diagnosis: SYMPTOMS INVOLVING RESPIRATORY SYSTEM AND OTHER CHEST SYMPTOMS; COUGH (786.2), right lower lobe pneumonia [facility] Office Visit On: 18-Sep-2007 9:01 Encounter Reason: new patient male physicial - Last seen more than 1 year ago. General health: feels well with no complaints ,has good energy level and is sleeping well. The patient's appetite is normal. Nutrition: ivonne End: 18-Sep-2007 10:15 l/adequate. Exercises 6 days per week. Sleeps on average 7 hours per night. Normal bowel and bladder habits. Safety measures include appropriate use of safety belts and home smoke detectors. There are n o current emotional problems. The patient's libido is normal. Preventative measures done by patient are screening, visual acuity (2006 wears glasses ). Encounter Diagnosis: Well Male Exam (V70.0), GERD (530.81), oncomycosis [facility]; a guarantor
--- OUTSIDE RECORDS SUMMARY | 2018-09-29 22:13 | XMS RPT_ITS | Continuity of Care Document ---
:1955 Author Organization [facility] Address [address] [facility] [address] [place] [address] Phone Care Team Providers Name Role Phone [...] Tablet daily and 1.5 tablets on sundays for 90 days Quantity: 90 {Tablet} Refills: 3 Ordered:21-May-2018 Steff Carrington CNP, CNP, Mary E Start : 21-May-2018 Active Levothyroxine Sodium 125 MCG Oral Tablet 1 (one) Tablet daily and 1.5 tablets on sundays for 30 days Quantity: 90 {Tablet} Refills: 3 Ordered:21-May-2018 Steff Carrington CNP, CNP, Mary E Start : 21-May-2018 Active Lipitor 80 MG Oral Tablet 1 (one) Tablet daily for 30 days Quantity: 30 {Tablet} Refills: 4 Ordered:16-Feb-2018 Charissa NOWAK, Steff Cantrell CNP, Steff Flynn Start : 16-Feb-2018 Active Losartan Potassium 25 [...] days Quantity: 14 {Tablet} Refills: 0 Ordered:01-Oct-2007 VICTORINA RosarioAINE Start : 01-Oct-2007 End : 12-Aug-2008 Inactive Metoprolol Tartrate 25 MG Oral Tablet daily (25 MG) Inactive Chondroitin Sulfate 400 MG Oral Capsule daily (400 MG) End : 21-May-2018 Discontinued Iron Folic BC 500 Oral Tablet daily for 0 days Refills: 0 Ordered:16-Feb-2018 Madelyn Mills Start : 16-Feb-2018 End : 21-May-2018 Discontinued Comments:This order discontinued per -Span. Omeprazole 20 MG Oral Capsule Delayed Release [...] AND Physical Result: Comments: See Note; NOTES: [facility] Cardiac Rehab [address] [place] [address] CR - History AND Physical MR#: [id number] Acct: [id number] Name: NIYA MCKEON Rep #: [id number] : 1955 62 From: Ulysses Vasques NURSE TRANSPLANT, MANGANESE HEATER, BS PCP: Steff Carrington NP DOS: 03/13/18 [...] Advanced Directives - Advanced Directives Power of Speech/Language Therapist: Yes Living Will: Yes Adv ance Directives [...] per echo 01/26/18 Atherosclerotic heart disease of [place] coronary artery without angina pectoris (Chronic) I25.10 Nonobstructive coronary arteries (<30% stenosis in LAD, CX, and RCA: left main normal) per [facility] 02/02/[address] Chino @ [facility] Atr ial enlargement, right (Chronic) I51.7 Per echo 01/26/18 GERD (gastroesophageal reflux disease) (Chronic) K21.9 Atrial fibrillation (Chronic) I48.91 - Past Surgical History Surgical History: Past Surg ical History (Last Reviewed 02/16/18 @ 08:22 by Clotilde Bautista) History of left heart catheterization (Chronic) Onset Date: 02/02/18 Z98.890 Nonobstructive coronary arteries (<30% stenosis in LAD, C X, and RCA: left main normal) per [facility] 02/02/[address] Chino @ [facility] H/O lateral meniscus repair of left knee Onset Date: [address] Odom, [facility] Surgical History: no surgical history - Famil [...] - Status Marital Status: - Current Living [facility] Living Environment:: Family - Children How many children do you have?: 3 Do any of your children live nearby?: Yes - 1 in [place] in [place] - Safety Do you feel safe in your surroundings?: Yes - Assistance Do you need any assistance at home?: none Review of Systems - Review of Systems Hints: Right click = Denies (Slash). Left click = Reports ([place]) Review of Present Symptoms: Report s: Shortness [...] you to complete the program?: excellent chey. 03/13/1824 <Electronically signed by Ulysses Vasques CRT, RCP, [...] Visit Report Result: Comments: See Note; NOTES: [facility] [address] [place] [address] OFFICE VISIT Date of Service: 03/09/18 MR#: [id number] Acct: [id number] Patient: NIYA MCKEON Rep #: [id number] : 1955 Provider: Balwinder Chino MD Age/Sex: 62/M Location: [facility] Status: Signed Intake Intake Visit Reasons: 1 [...] mg PO QDAY 02/16/18 [History Confirmed 03/01/18] blztcrpalwb-nhe-popfnqdlo-hrb 149-hyalur 500 mg-500 mg-66.7 mg tablet tab [...] CC: 09-Mar-2018 12 Lead EKG performed by [facility] Result: Comments: See Note; NOTES: [facility] [address] [place] [address] 12 Lead EKG performed by [facility] 03/09/181540 MR#: [id number] Acct: [id number] Name: NIYA MCKEON Rep #: [id number] : 1955 62 From: Balwinder Chino MD Attending Dr: Balwinder Chino MD Status: DEP AMB Ordering Dr: Balwinder Chino MD Date: 03/09/18 Location: [facility] Sex: M C Admitted: [facility]/12 Lead EKG performed by [facility] Sinus Bradycardia WITHIN NORMAL LIMITS 03/15/18 1402 <Electronically signed by Balwinder Chino MD> Date Balwinder Chino MD CC: Steff Carrington BACTERIOLOGY TEACHER Date Dictated: 03/09/18 154 Date Transcribed: 03/09/18 154 Welcome Wagon Host/Hostess: Signed 03-Mar-2018 Operative Report Result: Comments: See Note; NOTES: [facility] Medical Records Department [address] [place] [address] Operative Report 03/02/18 1325 MR#: [id number] Acct: [id number] Name: NIYA MCKEON Rep #: [id number] : 1955 62 From: Amilcar Jane MD PCP: Steff Carrington NP Status: REG SDC Y Location: [facility] Problem List (1) Atrial enlargement, right Status: Chronic Comment: Per echo 01/26/18 (2) Atrial fibrillation Status: Chronic (3) GERD (gastroesophageal reflux disease) Status: Chronic (4) Nonischemic cardiomyopathy Status: Chronic Comment: EF 35% per echo 01/26/18 Operative Report Da te of Procedure: 03/02/18 - Conscious sedation CONSCIOUS SEDATION REPORT BRIEF HISTORY OF PRESENT ILLNESS: The patient is a 62-year-old male who presented to [facility] for an elective outpatient cardioversion [...] Visit 9xxxx: Other Procedure See Report - 16866 -8 minutes of conscious sedation 03/03/18 0530 <Julietai coleen signed by Amilcar Jane MD> Date Amilcar Jane MD CC: Steff Carrington NP; Amilcar Jane MD; Balwinder Chino MD Signed 02-Mar-2018 Operative Report Result: Comments: See Note; NOTES: [facility] Medical Records Department [address] [place] [address] Operative Report 03/02/18 1243 MR#: [id number] Acct: [id number] Name: NIYA MCKEON Rep #: [id number] : 1955 62 From: Balwinder Chino MD PCP: Steff Carrington NP Status: [facility] Y Location: [facility] Problem List (1) Chest pain Status: Acute (2) Atherosclerotic heart disease of [place] coronary artery without angina pectoris Status: Chronic Comment: Nonobstructive coronary arteries (<30% stenosis in LAD, CX, and RCA: left main normal) per [facility] 02/02/[address] Chino @ [facility] ( 3) Atrial fibrillation Status: Chronic Operative [...] Date Balwinder Chino MD CC: Steff Carrington BACTERIOLOGY TEACHER; Balwinder Chino MD Signed 16-Feb-2018 Cardiology Visit Report Result: Comments: See Note; NOTES: [facility] [address] [place] [address] OFFICE VISIT Date of Service: 02/16/18 MR#: [id number] Acct: [id number] Name: NIYA MCKEON Rep #: [id number] : 1955 Provider: Balwinder Chino MD Age/Sex: 62/M Location: [facility] Status: Signed HPI HPI Chief Complaint: Routine [...] 2 in 02/16/18 W eight: 260 lb 02/16/18 Body Mass Index (BMI) 33.3 02/16/18 Blood Pressure 100/70 Intake Visit Reasons: S/P [facility] Meeting Manager Required: No Accompanied by: Is patient in [...] mg PO QDAY 02/16/18 [History Confirmed 02/16/18] klbmawgdjzr-qda-htbwbaouh-hrb 149-hyalur 5 00 mg-500 mg-66.7 mg tablet tab PO 02/16/18 [History Confirmed 02/16/18] [facility] Medical History Atherosclerotic heart disease of [place] coronary artery withou t angina pectoris (Chronic) [...] and Zarrella 3. Atherosclerotic heart disease of [place] coronary artery without angina pectoris I25.10 Nonobstructive coronary arteries (<30% stenosis in LAD, CX, and RCA: left main normal) per [facility] 02/02/[address] Chino @ [facility] Plan 3. Coronary artery disease : No [...] I48.91 Cardiomyopathy I42.9 Atherosclerotic heart disease of [place] coronary artery without angina pectoris I25.10 Coding Level of Care Code Off vis,est,level 3 Diagnoses Atrial fibrillation I48.91 Cardiomyopathy I42.9 Atherosclerotic heart disease of [place] coronary artery without angina pectoris I25.10 02/16/18 1159 &#60 ;Electronically signed by Balwinder Chino MD> Date Balwinder Chino MD Cosigner Signature: Date (if applicable) CC: Steff Carrington NP 01-Feb-2018 Office Visit Report Result: Comments: See Note; NOTES: [facility] [address] [place] [address] OFFICE VISIT Date of Service: 01/29/18 MR#: [id number] Acct: [id number] Patient: NIYA MCKEON Rep #: [id number] : 1955 Provider: Balwinder Chino MD Age/Sex: 62/M Location: [facility] Status: Signed Intake Intake Visit Reasons: cath [...] cath on February 14. RX sent to [facility] and pt already picked it up as [place] the end of the week. 02/01/18 0858 &a mp;#60;Electronically signed by Balwinder Chino MD> Date Balwinder Chino MD Cosigner Signature: Date (if applicable) CC: Clotilde Bautista 31-Jan-2018 Emergency Department Summary Result: Comments: See Note; NOTES: [facility] Medical Records Department [address] [place] [address] Emergency Department Summary 01/31/18 2249 MR#: [id number] Acct: [id number] Name: NIYA MCKEON Rep #: [id number] : 1955 62 From: Akilah iDa MD PCP: Steff Carrington NP Status: REG [...] Chest pain This note was generated with Newscron dictation software . It may contain incorrect [...] contact your Tracie sanches Care Provider. Call [facility] ([phone]) or report to the closest Emergency Room. Call 911 if necessary. 01/31/18 4416 <Electronically signed by Akilah Dia MD> Vic e Akilah Dia MD Cosigner Signature (If Indicated): Date CC: Steff Carrington NP 31-Jan-2018 Chest 1 View (Portable) Result: Comments: See Note; NOTES: [facility] Imaging Services [address] [place] [place] [address] Chest 1 View (Portable) MR#: [id number] Acct: [id number] Name: NIYA MCKEON Rep #: [id number] : 1955 M 62 From: Justus Moran DO PCP: Steff Carrington NP Status: REG ER Study: Chest 1 View (Portable) Date of Exam: 01/31/18 Exam# [id number] Ordering Dr: Akilah Dia MD STUDY: X-RAY [...] RAD/Chest 1 View (Portable) IMPRESSION: No ac [place] cardiopulmonary disease or interval change. Electronically Signed: Justus Moran DO at 23:05 EDT Tel [phone], Service support , CC: Steff Carrington BACTERIOLOGY TEACHER ; Akilah Dia MD Welcome Wagon Host/Hostess: Signed 26-Jan-2018 Echocardiogram Complete Result: Comments: See Note; NOTES: [facility] Cardiovascular Services [address] [place] [address] Echo Complete 01/26/18 0903 MR#: [id number] Acct: [id number] Name: NIYA MCKEON ep #: [id number] : 1955 62 From: Balwinder Chino MD Attending Dr: Balwinder Chino MD Status: REG CLI Ordering Dr: Balwinder Chino MD Date: 01/26/18 Location: [facility] Sex: M C Admitted: Reason For S [...] Balwinder Chino MD CC: Balwinder Chino MD; Dayanmike Mehta Date Dictated: 01/26/18 0903 Date Transcribed: 01/26/18 1339 Welcome Wagon Host/Hostess: Signed 23-Jan-2018 Cardiology Visit Report Result: Comments: See Note; NOTES: [facility] [address] [place] [address] OFFICE VISIT Date of Service: 01/23/18 MR#: [id number] Acct: [id number] Name: NIYA MCKEON Rep #: [id number] : 1955 Provider: Balwinder Chino MD Age/Sex: 62/M Location: [facility] Status: Signed HPI HPI Chief Complaint: Irregular [...] 90/60 Intake Visit Reasons: IRREG HEART RATE ([facility] ER) Allergies No Known Allergies Allergy (Verified 01/23/18 10:46) Medications albuterol sulfate HFA 90 mcg/actuat ion aerosol inhaler 2 puff INHALATION Q6H PRN 01/22/18 [History Confirmed 01/22/18] metoprolol succinate ER 25 mg tablet,extended release 24 hr 25 mg PO DAILY #30 tab.er.24h 01/23/18 [Rx Confirmed 01/23] rivaroxaban 20 mg tablet 20 mg PO DAILY #30 tab 01/23/18 [Rx Confirmed 01/23/18] [facility] Medical History GERD (gastroesophageal reflux disease) (Chronic) [...] how long he has been in at [facility] fibrillation but it is been at least [...] Lead Electrocardiogram Result: Comments: See Note; NOTES: [facility] Cardiovascular Services [address] [place] [address] 12 Lead EKG 01/11/18 1536 MR#: [id number] Acct: [id number] Name: NIYA MCKEON Rep #: [id number] : 1955 62 From: George Mcwilliams MD Attending Dr: Status: DEP ER Ordering Dr: Estiven Condon Date: 01/11/18 Location: ED Sex: M C [...] ECG Confirmed by GEORGE OLIVER MD ([id number]), desk editor CURLY BAUMANN ([id number]) on 01/15/2018 2:44:33 PM Referred By: ANDREW/SEBAS Confirmed By:GEORGE MCWILLIAMS MD 01/15/18 1444 Date George Mcwilliams MD CC: Florence Carranza MD; ED PHYSICIAN PROVIDER; Rambo Machado MD Signed 11-Jan-2018 Emergency Department Summary Result: Comments: See Note; NOTES: [facility] Medical Records Department [address] [place] [address] Emergency Department Summary 01/11/18 1753 MR#: [id number] Acct: [id number] Name: NIYA MCKEON Rep #: [id number] : 1955 62 From: Rambo Machado MD [...] atrial fibrillation This note was generated with Newscron dictation software. It may contain incorrect words, [...] your Primary Care Provider. Call [facility] ([phone]) or report to the closest Emergency Room. Call 911 if necessary. 01/11/18 9379 <Electronically signed by Rambo Machado MD> Date Rambo Machado MD Cosigner Signature ( If Indicated): Date CC: Florence Carranza MD 11-Jan-2018 Chest 1 View (Portable) Result: Comments: See Note; NOTES: [facility] Imaging Services [address] [place] [address] Chest 1 View (Portable) MR#: [id number] Acct: [id number] Name: NIYA MCKEON Rep #: [id number] : 1955 M 62 From: Bo Vivas MD PCP: NOT, DEFINED Status: PRE ER Study: Chest 1 View (Portable) Date of Exam: 01/11/18 Exam# [id number] Ordering Dr: Rambo Machado MD STUDY: X-RAY [...] , CC: DEFINED NOT; Rambo Machado MD Welcome Wagon Host/Hostess: Signed 01-Jan-2018 Chest PA and Lateral Result: Comments: See Note; NOTES: [facility] Imaging Services [address] [place] [address] Chest PA and Lateral MR#: [id number] Acct: [id number] Name: NIYA MCKEON Rep #: [id number] : 1955 M 62 From: Lakeisha Arevalo MD PCP: Florence Carranza MD Status: REG CLI Study: Chest PA and Lateral Date of Exam: 01/01/18 Exam# [id number] Ordering Dr: Hodan Lockett BACTERIOLOGY TEACHER-Day STUDY: X-RAY CH EST REASON FOR EXAM: [...] EDT Tel , Service support , CC: BACTERIOLOGY TEACHER-C Hodan Lockett; Florence Carranza MD Welcome Wagon Host/Hostess: Signed Immunization Name Dates Details Td (7 years and up) on: 18-Sep-2007 Comments: given in left deltoid,lot #[id number], exp. December 20 2007 AW Tdap (7 [...] 0.00 cm Results Date Description Value Details :15 Free T3 Comments: Comments: DO NOT DO THESE UNTIL CHINO ORDERED [facility] [address] [facility]. [place], [place], [phone](371) FREE T3 2.5 pg/mL (Normal) Range: 2.18-3.98 10-Zfs-571747:15 PSA,Total - Annual Screen Comments: Comments: DO NOT DO THESE UNTIL CHINO ORDERED [facility] [address] [place], [address] PSA,TOT SCREEN 1.06 ng/mL (Normal) Range: 0.00-4.00 Comments: This test was performed using the TPSA assay method for thedBMEDxRevokom chemistry system. Values obtained with differentassay methods cannot be used interchangably.When changing PSA assays in the course of monitoring apatient, additional sequential testing should be carriedout to confirm baseline values. :15 T4 Free Direct Comments: Comments: DO NOT DO THESE UNTIL GILMER ORDERED [facility]SH [facility] [address] [place], [address] T4 FREE DIRECT 1.17 ng/dL (Normal) Range: 0.76-1.46 58-Qwl-140400:15 T4 Total, Thyroxin Comments: Comments: DO NOT DO THESE UNTIL ORDERED [facility] [address] [place], [phone](168) T4 THYROXIN 12.4 ug/dL (Abnormal) Range: 4.5-12.1 24-Ark-796758:15 Thyroid Stim Hormone (TSH) Comments: Comments: DO NOT DO THESE UNTIL CHINO ORDERED [facility]SH [facility] [address] [place], [address] TSH 4.02 {uIU/mL} (Abnormal) Range: 0.358-3.74 43-Rjz-758582:55 Free T3 Comments: [place] [address] [place], [address](828) FREE T3 2.5 pg/mL (Normal) Range: 2.18-3.98 47-Lsv-053806:55 PSA,Total - Annual Screen Comments: [place] [address] [place], [address](349) PSA,TOT SCREEN 1.68 ng/mL (Normal) Range: 0.00-4.00 Comments: This test was performed using the TPSA assay method for the[facility] chemistry system. Values obtained with differentassay methods cannot be used interchangably.When changing PSA assays in the course of monitoring apatient, additional sequential testing should be carriedout to confirm baseline values. 27-Slg-279909:55 T4 Free Direct Comments: [place] [address] [place], [address](312) T4 FREE DIRECT 1.09 ng/dL (Normal) Range: 0.76-1.46 75-Rhc-293608:55 Thyroid Stim Hormone (TSH) Comments: [place] [address] [place], [address] TSH 3.72 {uIU/mL} (Normal) Range: 0.358-3.74 95-Osg-587259:45 Basic Metabolic Profile (BMP) Comments: [place] [address] [place], [place], [address] GAP 8 (Normal) Range: 5-15 CO2 24.0 [...] A.D.A. criteria.Please note revised GLUCOSE reference range hulsxizzc97/02/2018. 19-Gjg-042511:45 CBC W/Diff, Automated Comments: [facility] [address] [facility] [address] [place], [place], [phone] Absolute Lymph 3.07 {X10_3/ul} (Normal) Range: 0.83-4.51 [...] 4.6-6.2 WBC 10.1 K/mm3 (Normal) Range: 4.4-11.0 31-Fnw-467558:45 Troponin-I Comments: [facility] [address] [place], [place], [address] TROPONIN-I < 0.015 ng/mL (Normal) Comments: TROPONIN-I EXPECTED VALUES <0.045 Negative 0.045 - 0.590 Consistent with Cardiac Damage > OR = 0.600 Critical Value Not every elevated troponin is indicative of [place]. T hesevalues should be used with clinical judgement in examiningthe patient's clinical picture for diagnosis. To establisha diagnosis of [place] versus myocardial injury, there must be ademonstrated rise and/ or fall in the troponin values, inaddition to ischemic symptoms, EKG changes, new regionalwall motion abnormality, and/or angiographical evidence. PLEASE NOTE: REFERENCE RANGES EDITED 11/20/1729-Jan-201876-Rlo-334251:54 Basic Metabolic Profile (BMP) Comments: Comments: For heart cathComments: [facility] [address] [place], [place], [phone] GAP 10 (Normal) Range: 5-15 CO2 22.0 [...] Comments: Please note revised GLUCOSE reference range pyfnkihit97/02/2018. 15-Tjk-169529:54 Basic Metabolic Profile (BMP) Comments: Comments: For heart cathComments: [facility] [address] [place], [place], [address] GAP 10 (Normal) Range: 5-15 CO2 22.0 [...] Comments: Please note revised GLUCOSE reference range aaticankx43/02/2018. 86-Zab-583865:54 CBC-Complete Blood Cnt No Diff Comments: [facility] [address] [place], [place], [address] MPV 10.2 fL (Normal) Range: 6.2-12.0 PLT [...] 4.6-6.2 WBC 9.6 K/mm3 (Normal) Range: 4.4-11.0 81-Qnn-090345:54 CBC-Complete Blood Cnt No Diff Comments: [facility] [address] [place], [address] MPV 10.2 fL (Normal) Range: 6.2-12.0 PLT [...] 4.6-6.2 WBC 9.6 K/mm3 (Normal) Range: 4.4-11.0 49-Ucr-624148:54 Partial Thromboplast Time Comments: Comments: For heart cathComments: [facility] [address] [place], [place], [phone] PTT 29.6 s (Normal) Range: 24.1-36.2 70-Jsy-742254:54 Partial Thromboplast Time Comments: Comments: For heart cathComments: For [facility] [address] [place], [place], [address] PTT 29.6 s (Normal) Range: 24.1-36.2 26-Cxa-927287:54 Prothrombin Time w/INR Comments: Comments: For heart cathComments: For [facility] [address] [place], [address] INR 1.0 (Normal) PROTIME 13.5 s (Normal) Range: 11.7-14.9 89-Zlt-330312:54 Prothrombin Time w/INR Comments: Comments: For heart cathComments: For [facility] [address] [place], [address] INR 1.0 (Normal) PROTIME 13.5 s (Normal) Range: 11.7-14.9 :05 Lipid Profile Comments: [facility] [address] [place], [place], [address] VLDL 18 mg/dL (Normal) Range: 5-40 LDL [...] 200-240 mg/dL Borderline >240 mg/dL High Risk :05 Liver Profile Comments: [facility] [address] [place], [place], [address] D BILI 0.28 mg/dL (Normal) Range: 0.00-0.30 T BILI 1.60 mg/dL (Abnormal) Range: 0.20-1.00 ALT 41 U/L (Normal) Range: 16-61 ALK P 76 U/L (Normal) Range: 45-117 AST 31 U/L (Normal) Range: 15-37 GLOB 3.5 g/dL (Normal) Range: 2.2-4.2 ALB 3.7 g/dL (Normal) Range: 3.2-5.0 T PROT 7.2 g/dL (Normal) Range: 6.4-8.2 :05 T4 Total, Thyroxin Comments: [facility] [address] [place], [place], [address] T4 THYROXIN 8.7 ug/dL (Normal) Range: 4.5-12.1 33-Yiu-53954:05 Thyroid Stim Hormone (TSH) Comments: [facility] [address] [place], [place], [address] TSH 7.24 {uIU/mL} (Abnormal) Range: 0.358-3.74 8-Swl-488834:44 Basic Metabolic Profile (BMP) Comments: [facility] [address] [place], [place], [address] GAP 8 (Normal) Range: 5-15 CO2 21.0 [...] A.D.A. criteria.Please note revised GLUCOSE reference range snrcruvsk24/02/2018. :44 CBC W/Diff, Automated Comments: [facility] [address] [place], [place], [address] Absolute Lymph 2.30 {X10_3/ul} (Normal) Range: 0.83-4.51 [...] Range: 4.4-11.0 :44 Prothrombin Time w/INR Comments: [facility] [address] [place], [place], [address] INR 1.0 (Normal) PROTIME 13.5 s (Normal) Range: 11.7-14.9 9-Gwq-649805:44 Troponin-I Comments: [facility] [address] [place], [id number] TROPONIN-I < 0.015 ng/mL (Normal) Comments: TROPONIN-I EXPECTED VALUES <0.045 Negative 0.045 - 0.590 Consistent with Cardiac Damage > OR = 0.600 Critical Value Not every elevated troponin is indicative of [place]. T hesevalues should be used with clinical judgement in examiningthe patient's clinical picture for diagnosis. To establisha diagnosis of [place] versus myocardial injury, there must be ademonstrated rise and/ or fall in the troponin values, inaddition to ischemic symptoms, EKG changes, new regionalwall motion abnormality, and/or angiographical evidence. PLEASE NOTE: REFERENCE RANGES EDITED 17:17 CBC-Complete Blood Cnt No Diff Comments: [facility] [address] [place], [place], [address] MPV 9.8 fL (Normal) Range: 6.2-12.0 PLT [...] Range: 4.4-11.0 :17 Comprehensive Metabolic Profil Comments: [facility] [address] [place], [address] GAP 10 (Normal) Range: 5-15 CO2 23.0 [...] 7-18 GLU 83 mg/dL (Normal) Range: 70-110 53-Veu-83244:17 Lipid Profile Comments: [facility] [address] [place], [place], [address] VLDL 10 mg/dL (Normal) Range: 5-40 LDL [...] 200-240 mg/dL Borderline >240 mg/dL High Risk 06-Riv-85569:17 PSA,Total - Annual Screen Comments: [facility] [address] [place], [address] PSA,TOT SCREEN 1.45 ng/mL (Normal) Range: 0.00-4.00 Comments: This test was performed using the TPSA assay method for the[employer] chemistry system. Values obtained with differentassay methods cannot be used interchangably.When changing PSA assays in the course of monitoring apatient, additional sequential testing should be carriedout to confirm baseline values. 5-Bvq-684495:27 Anaerobic and Aerobic Culture Comments: Clinical Information: SRC:AM RT UPPER LAT. PERFORMED BY: [facility] [id number] Aerobic Culture Final report (Normal) Anaerobic Culture Final report (Normal) Result 1 [id number] (Normal) Comments: No anaerobic growth in 72 hours. Result 1 BACNBA (Normal) Comments: Bacillus species, not Bacillus anthracisModerate growthSusceptibility not normally performed on this organism. 25-Thl-667226:25 T4, FREE (THYROXINE) (51399) Comments: PATIENT NOT FASTINGPERFORMED BY: [facility]UNC [facility] [id number] T4,Free(Direct) 1.00 ng/dL (Normal) Range: 0.61-1.76 53-Juw-688058:25 T3, FREE (TRIDOTHYRONINE) (15514) Comments: PATIENT NOT FASTINGPERFORMED BY: [facility] [facility] [id number] Triiodothyronine,Free,Serum 3.1 pg/mL (Normal) Range: 2.3-4.2 74-Olo-333860:25 TSH (47040) Comments: PATIENT NOT FASTINGClinical Information: ADD DRAW FEE [id number] ADD J 15082 PERFORMED BY: [facility] [id number] TSH 3.691 {uIU/mL} (Normal) Range: 0.450-4.500 33-Idw-122966:25 Anti-TPO Antibody (91654) Comments: PATIENT NOT FASTINGPERFORMED BY: [facility] Bwkrts6614 [facility] [id number] Thyroid Peroxidase (TPO) Ab <10 {IU/mL} (Normal) Range: 0-34 :44 Thyroxine (T4) Free, Direct, S Comments: PATIENT WAS FASTINGClinical Information: ADD DRAW FEE [id number] ADD J 52042 PERFORMED BY: [facility]6370 [facility] [id number] T4,Free(Direct) 0.88 ng/dL Range: 0.61-1.76 (Normal) Triiodothyronine,Free,Seru 3.1 pg/mL (Normal) Comments: PATIENT WAS FASTINGPERFORMED BY: [facility] Oemqcf0755 [facility] [id number] :44 m Range: 2.3-4.2 Written Authorization WAR (Normal) Comments: PATIENT WAS FASTINGPERFORMED BY: [facility]6370 [facility] [id number] :44 Comments: Written Authorization Received.Authorization received from DR CARRANZA [id number] by Leigh Ann Diehl :44 PSA (PROSTATE SPECIFIC Comments: PATIENT WAS FASTINGPERFORMED BY: [facility] Xrdlaj5647 [facility] [id number] ANTIGEN) (V76.44) Prostate Specific Ag, Serum 2.3 ng/mL (Normal) Range: 0.0-4.0 Comments: Fahad ECLIA methodology. .According to the [place], PSA should beundetectable after radical prostatectomy. A PSA of less than0.5 ng/mL (or undetectable) is not likely to be associated withdisease recurrence within five years of treatment.Values obtained with different assay methods or kits cannot be usedinterchang eably. Results cannot be interpreted as absolute evidenceof the presence or absence of malignant disease. :44 Lipid Panel (23295) Comments: PATIENT WAS FASTINGPERFORMED BY: [facility]6370 [facility] [id number] Cholesterol, Total 182 mg/dL (Normal) Range: 100-199 [...] Cholesterol Uday 14 mg/dL (Normal) Range: 5-40 13-Aug-20088:44 METABOLIC PANEL, COMPREHENSIVE Comments: PATIENT WAS FASTINGPERFORMED BY: LabCoHunter[facility] CenterClaull6980 [facility] [id number] (44504) A/G Ratio 1.5 (Normal) Range: 1.1-2.5 Albumin, [...] Serum 82 mg/dL (Normal) Range: 65-99 If -Taiwanese >59 mL/min/1.73 Comments: Note: Persistent reduction for [...] Sodium, Serum 141 mmol/L (Normal) Range: 135-145 13-Aug-20088:44 CBC WITH MANUAL DIFF (21728) Comments: PATIENT WAS FASTINGClinical Information: ADD DRAW FEE [id number] ADD J 68352 PERFORMED BY: [facility]6370 [facility] [id number] Baso (Absolute) 0.1 {x10E3/uL} (Normal) Range: 0.0-0.2 [...] 6.6 {x10E3/uL} (Normal) Range: 4.0-10.5 :44 TSH (04764) Comments: PATIENT WAS FASTINGPERFORMED BY: [facility] Htxonq1746 [facility] [id number] TSH 6.078 {uIU/mL} (Abnormal) Range: 0.450-4.500 :06 [...] D BILI 0.19 mg/dL (Normal) Range: 0.00-0.30 :06 PSA,TOT SCREEN 1.92 ng/mL (Normal) Range: 0.00-4.00 Comments: This test was performed using the TPSA method for the[employer] chemistry system.Values obtained with different assay methods [...] for male Planned Observations Metabolic Panel, Comprehensive (92716)Indication: Hypertension On: 8-Gkz-602260:40 Request TSH (THYROID STIMULATING HORMONE) (19461)Indication: Hypothyroid On: 3-Hwz-127334:39 Request LIPID PANEL (77067)Indication: Hypercholesteremia On: 8-Gzb-599316:39 Request CALCIFEDIOL (53926)Indication: Rash of unknown cause On: 27-Llp-940785:46 Request IRON (95457)Indication: Elevated hemoglobin On: 15-Aqg-117593:42 Request CBC & PLATELETS (AUTO) (41171)Indication: Elevated hemoglobin On: 97-Xhs-320247:42 Request TSH (THYROID STIMULATING HORMONE) (26416)Indication: Hypothyroid On: 54-Fsy-963613:35 Request TSH (THYROID STIMULATING HORMONE) (85325)Indication: Hypothyroid On: 8-Hzx-167848:28 Request PSA (PROSTATE SPECIFIC ANTIGEN) (V76.44)Indication: Screening for prostate cancer On: 78-Vux-823466:19 Request T3, FREE (TRIDOTHYRONINE) (35997)Indication: Hypothyroid On: 87-Urm-836963:18 Request T4, FREE (THYROXINE) (52142)Indication: Hypothyroid On: 33-Isz-449326:18 Request TSH (THYROID STIMULATING HORMONE) (14939)Indication: Hypothyroid On: 31-Jbm-920373:18 Request CBC (Auto) (30141)Indication: Encounter for routine history and physical exam for male On: 58-Lef-360248:38 Request Metabolic Panel, Comprehensive (47620)Indication: Encounter for routine history and physical exam for male On: :38 Request LIPID PANEL (68766)Indication: Encounter for routine history and physical exam for male On: 03-Ide-549298:37 Request PSA (Prostate Specific Antigen), Screening (57812)Indication: Screening for prostate cancer On: 30-Nwl-348111:43 Request BARRETT CULTURE-OTHER (17356)Indication: Skin lesion On: 15-Apr-20099:09 Request Comments: rt lateral side area of splinter removal HEPATIC FUNCTION PANEL (08068)Indication: oncomycosis On: 47-Enw-033040:15 Request Comments: 8 weeks Metabolic Panel, Comprehensive (41990)Indication: oncomycosis On: 74-Shu-327867:10 Request Glucose (08738)Indication: Encounter for routine history and physical exam for male On: :41 Request PSA (PROSTATE SPECIFIC ANTIGEN) (V76.44)Indication: Encounter for routine history and physical exam for male On: 88-Faz-06318:39 Request Planned Encounters Medical; 3 Month FU - On: 22-Aug-2018 8:30 [facility] Steff Carrington CNP E Charissa NOWAK, Steff Flynn Planned Procedures Spirometry (81689)By: Levy On: 01-Jan-2018 Intent Hodan Comments: Normal Spirometry CHEST XRAY, PA & LATERAL On: 01-Jan-2018 Intent (05949)By: Hodan Lockett Ear Irrigation (10024)By: Momo On: 08-Jul-2011 Intent Florence WASSERMAN Comments: left ear irrigated and removed moderate amoutn of yellow wax without difficulty. no bleeding or pain. auditory canal clear now. done by raymond Radford CurettesBy: Florence Carranza MD On: 08-Jul-2011 Intent TDAP VACCINE >7 IM (87344)By: On: 15-Apr-2009 Intent Ciesa CUTTER HELPER, Zenobia Ciesa CUTTER HELPER, Zenobia Holter Moniter (97686)By: Momo On: 12-Aug-2008 Intent Florence WASSERMAN EKG (29654)By: Florence Carranza MD On: 12-Aug-2008 Intent Comments: rhthym Spirometry (21534)By: Omid BOX, On: 01-Oct-2007 Intent Carmen Roy Comments: good effort and curve- with mild obstruction Inhaler Demo (51737)By: Omid BOX, On: 01-Oct-2007 Intent Carmen A Aerosol Treatment (24710)By: Omid On: 01-Oct-2007 Carmen Coppola DO Pulse Oximetry (91711)By: Humphrey On: 01-Oct-2007 Intent Sravanthi BARBER TD Injection , IM (49758)By: On: 18-Sep-2007 Intent Florence Carranza MD Comments: given in left deltoid,lot #[id number], exp. December 20 2007 AW Instructions Name [...] history and physical exam for male Encounters Office Visit On: 21-May-2018 9:41 Encounter Reason: [...] GERD (530.81), oncomycosis [facility] [employer] [employer] [facility] CenterNiya Mckeon; a guarantor
--- OUTSIDE RECORDS SUMMARY | 2018-09-29 22:13 | XMS RPT_ITS | Continuity of Care Document ---
:1955 Author Organization [facility] Address [facility] 2 [place] [address] Phone Care Team Providers Name Role Phone [...] Dr. Chino, on xaralto, amiodarone, Asa, found hypothyroid, Status: Active CKD stage G2/A1, GFR 60-89 [...] exam for male (Z00.00, V70.0) Comments: scope 4-08 Status: Active GERD (gastroesophageal reflux disease) (K21.9, 530.81) Status: Active Hypercholesteremia (E78.00, 272.0) Status: Active Hypertension (I10, 401.9) Comments: Goal <130/80, on metoprolol, losartan, amiodarone per Chino Status: Active Hypothyroid (E03.9, 244.9) Status: Active Screening for prostate cancer (Z12.5, V76.44) Status: Active Sinusitis, bacterial (J32.9, 473.9) Status: Active SOB (shortness of breath) on exertion (R06.02, 786.05) Status: Active Unspecified Diagnosis Status: Active Medications Name Dates Details Amiodarone HCl 200 MG Oral Tablet 1 (one) Tablet daily for 30 days Quantity: 30 {Tablet} Refills: 3 Ordered:16-Feb-2018 Charissa NOWAK Steff Óscar NOWAK [place] Start : 16-Feb-2018 Active Aspirin 81 MG Oral Tablet Delayed Release 1 (one) Tablet daily for 30 days Quantity: 30 {Tablet} Refills: 3 Ordered:16-Feb-2018 Charissa NOWAK Steff Óscar NOWAK [place] Start : 16-Feb-2018 Active Chondroitin Sulfate 400 MG Oral Capsule daily (400 MG) Active Glucosamine 500 MG Oral Capsule daily (500 MG) Active Iron Folic BC 500 Oral Tablet daily for 0 days Refills: 0 Ordered:16-Feb-2018 Charissa NOWAK Steff Óscar NOWAK [place] Start : 16-Feb-2018 Active Levothyroxine Sodium 125 MCG Oral Tablet 1 (one) Tablet daily for 90 days Quantity: 90 {Tablet} Refills: 3 Ordered:23-Feb-2018 Charissa NOWAK Steff Óscar NOWAK [place] Start : 23-Feb-2018 Active Levothyroxine Sodium 125 MCG Oral Tablet 1 (one) Tablet daily for 30 days Quantity: 90 {Tablet} Refills: 3 Ordered:23-Feb-2018 Charissa NOWAK Steff Óscar NOWAK [place] Start : 23-Feb-2018 Active Lipitor 80 MG Oral Tablet 1 (one) Tablet daily for 30 days Quantity: 30 {Tablet} Refills: 4 Ordered:16-Feb-2018 Charissa NOWAK Steff Óscar NOWAK [place] Start : 16-Feb-2018 Active Losartan Potassium 25 MG Oral Tablet 1 (one) Tablet daily for 30 days Quantity: 30 {Tablet} Refills: 3 Ordered:16-Feb-2018 Charissa NOWAK, Steff Cantrell CNP, Steff Flynn Start : 16-Feb-2018 Active Metoprolol Succinate ER 25 MG Oral Tablet Extended Release 24 Hour 1 (one) Tablet qd for 30 days Quantity: 30 {Tablet} Refills: 3 Ordered:16-Feb-2018 Charissa NOWAK, Steff Cantrell CNP, Steff Flynn Start : 16-Feb-2018 Active Omeprazole 20 MG Oral Capsule Delayed Release daily (20 MG) Active PriLOSEC OTC 20 MG Oral Tablet Delayed Release 1 prn for 0 days Refills: 0 Ordered:16-Feb-2018 Charissa NOWAK, Steff Cantrell CNP, Steff Flynn Start : 16-Feb-2018 Active Xarelto 20 MG [...] days Quantity: 14 {Tablet} Refills: 0 Ordered:15-Apr-2009 Charissa NOWAK, Steff Cantrell CNP, Steff Flynn Start : 15-Apr-2009 End : 22-Apr-2009 Inactive [...] MG Oral Tablet daily (25 MG) Inactive ProAir HFA 108 (90 Base) MCG/ACT Inhalation Aerosol Solution 1-2 Puff Q 4-6 hours prn for 0 days Quantity: 1 {Inhaler} Refills: 0 Ordered:16-Feb-2018 LinaMadelyn Start : 02-Jan-2018 End : 16-Feb-2018 Discontinued [...] AND Physical Result: Comments: See Note; NOTES: [facility] Cardiac Rehab [address] [place] [address] CR - History AND Physical MR#: [id number] Acct: [id number] Name: NIYA MCKEON Rep #: [id number] : 1955 62 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 Chino @ [facility] Atr ial enlargement, right (Chronic) I51.7 Per echo 01/26/18 GERD (gastroesophageal reflux disease) (Chronic) K21.9 Atrial fibrillation (Chronic) I48.91 - Past Surgical History Surgical History: Past Surg ical History (Last Reviewed 02/16/18 @ 08:22 by Clotilde Bautista) History of left heart catheterization (Chronic) Onset Date: 02/02/18 Z98.890 Nonobstructive coronary arteries (<30% stenosis in LAD, C X, and RCA: left main normal) per [facility] 02/02/[address] Chino @ [facility] H/O lateral meniscus repair of left knee Onset Date: [address] Odom, [facility] Surgical History: no surgical history - [...] - Status Marital Status: - Current Living [facility] Living Environment:: Family - Children How many children do you have?: 3 Do any of your children live nearby?: Yes - 1 in [place] in [place] - Safety Do you feel safe in your surroundings?: Yes - Assistance Do you need any assistance at home?: none Review of Systems - Review of Systems Hints: Right click = Denies (Slash). Left click = Reports (Alutiiq) Review of Present Symptoms: Report s: Shortness [...] help support you to complete the program?: carina torres, . 03/13/18 0824 <Electronically signed by Ulysses Vasques [...] Visit Report Result: Comments: See Note; NOTES: [place] [id number] [place] [address] OFFICE VISIT Date of Service: 03/09/18 MR#: [id number] Acct: [id number] Patient: NIYA MCKEON Rep #: [id number] : 1955 Provider: Balwinder Chino MD Age/Sex: 62/M Location: [facility] Status: Signed Intake Intake Visit Reasons: 1 [...] mg PO QDAY 02/16/18 [History Confirmed 03/01/18] fpfkhmracri-hqx-dvwixxixv-hrb 149-hyalur 500 mg-500 mg-66.7 mg tablet tab [...] signed by Balwinder Chino MD> Date Balwinder [facility] Signature: Date (if applicable) CC: 09-Mar-2018 12 Lead EKG performed by [facility] Result: Comments: See Note; NOTES: [facility] [address] [place] [address] 12 Lead EKG performed by [facility] 03/09/18 1541 MR#: [id number] Acct: [id number] Name: NIYA MCKEON Rep #: [id number] : 1955 62 From: Balwinder Chino MD Attending Dr: Balwinder Chino MD Status: DEP [facility] Ordering Dr: Balwinder Chino MD Date: 03/09/18 [place] [facility] Sex: M C Admitted: [facility]/12 Lead EKG performed by [facility] Sinus Bradycardia WITHIN NORMAL LIMITS 03/15/18 1402 <Electronically signed by Balwinder Chino MD> Date aBlwinder Chino MD CC: Steff Carrington NP Date Dictated: 03/09/181540 Date Transcribed: 03/09/181540 Bakelite Molder: Signed 03-Mar-2018 Operative Report Result: Comments: See Note; NOTES: [facility] Medical Records Department [address] [place] [address] Operative Report 03/02/18 1325 MR#: [id number] Acct: [id number] Name: NIYA MCKEON Rep #: [id number] : 1955 62 From: Amilcar Jane MD PCP: Steff Carrington NP Status: REG SDC Y Location: [facility] Problem List (1) Atrial enlargement, right Status: Chronic Comment: Per echo 01/26/18 (2) Atrial fibrillation Status: Chronic (3) GERD (gastroesophageal reflux disease) Status: Chronic (4) Nonischemic cardiomyopathy Status: Chronic Comment: EF 35% per echo 01/26/18 Operative Report Da te of Procedure: 03/02/18 - Conscious sedation CONSCIOUS SEDATION REPORT BRIEF HISTORY OF PRESENT ILLNESS: The patient is a 62-year-old male who presented to [facility] for an elective outpatient cardioversion due to [...] Visit 9xxxx: Other Procedure See Report - 57644 -8 minutes of conscious sedation 03/03/18 0530 <Electroni coleen signed by Amilcar Jane MD> Date Amilcar Jane MD CC: Steff Carrington NP; Amilcar Jane MD; Balwinder Chino MD Signed 02-Mar-2018 Operative Report Result: Comments: See Note; NOTES: [facility] Medical Records Department [address] [place] [address] Operative Report 03/02/18 1243 MR#: [id number] Acct: [id number] Name: NIYA MCKEON Rep #: [id number] : 1955 62 From: Balwinder Chino MD PCP: Steff Carrington NP Status: REG [facility] Location: [facility] Problem List (1) Chest pain Status: Acute (2) Atherosclerotic heart disease of mandie ve coronary artery without angina pectoris Status: Chronic Comment: Nonobstructive coronary arteries (<30% stenosis in LAD, CX, and RCA: left main normal) per [facility] 02/02/[address] Chino @ [facility] ( 3) Atrial fibrillation Status: Chronic [...] Date Balwinder Chino MD CC: Steff Carrington BONSAI TENDER; Balwinder Chino MD Signed 16-Feb-2018 Cardiology Visit Report Result: Comments: See Note; NOTES: [facility] [address] [place] [address] OFFICE VISIT Date of Service: 02/16/18 MR#: [id number] Acct: [id number] Name: NIYA MCKEON Rep #: [id number] : 1955 Provider: Balwinder Chino MD Age/Sex: 62/M Location: [facility] Status: Signed HPI HPI Chief Complaint: Routine f/u Details: NIYA MCKEON, is a 62 M who [facility]/u of an irregular heartbeat. [...] Blood Pressure 100/70 Intake Visit Reasons: S/P [facility] Impregnator Required: No Accompanied by: Is patient in [...] mg PO QDAY 02/16/18 [History Confirmed 02/16/18] qjobnqhshtv-swq-dbvsqfpyf-hrb 149-hyalur 5 00 mg-500 mg-66.7 mg tablet tab PO 02/16/18 [History Confirmed 02/16/18] PFSH Medical History Atherosclerotic heart disease of nez perce coronary artery withou t angina pectoris (Chronic) [...] and Zarrella 3. 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 Chino @ [facility] Plan 3. 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] cath on February 14. RX sent to [facility] and pt already picked it up as [place] the end of the week. 02/01/18 0858 &a mp;#60;Electronically signed by Balwinder Chino MD> Date Balwinder Chino MD Cosigner Signature: Date (if applicable) CC: Clotilde Bautista 31-Jan-2018 Emergency Department Summary Result: Comments: See Note; NOTES: [facility] Medical Records Department [address] [facility] [place] [address] Emergency Department Summary 01/31/18 2249 MR#: [id number] Acct: [id number] Name: NIYA MCKEON Rep #: [id number] : 1955 62 From: Akilah Dia MD [...] Chest pain This note was generated with [employer] dictation software . It may contain incorrect [...] pain, or any unexpected problems, contact your [facility] Care Provider. Call [facility] ([phone]) or report to the closest Emergency Room. Call 911 if necessary. 01/31/18 3554 <Electronically signed by Akilah Dia MD> Vic e Akilah Dia MD Cosigner Signature (If Indicated): Date CC: Steff Carrington BONSAI TENDER 31-Jan-2018 Chest 1 View (Portable) Result: Comments: See Note; NOTES: [facility] Imaging Services [address] [place] [address] Chest 1 View (Portable) MR#: [id number] Acct: [id number] Name: NIYA MCKEON Rep #: [id number] : 1955 M 62 From: Justus Moran DO PCP: Steff Carrington NP Status: REG ER Study: Chest 1 View (Portable) Date of Exam: 01/31/18 Exam# [id number] Ordering Dr: Akilah Dia MD STUDY: X-RAY [...] RAD/Chest 1 View (Portable) IMPRESSION: No ac [place] cardiopulmonary disease or interval change. Electronically Signed: Justus Moran DO at 23:05 EDT Tel [phone], Service support , CC: Steff Carrington NP ; Akilah Dia MD Bakelite Molder: Signed 26-Jan-2018 Echocardiogram Complete Result: Comments: See Note; NOTES: [facility] Cardiovascular Services [address] [place] [address] Echo Complete 01/26/18 0903 MR#: [id number] Acct: [id number] Name: NIYA MCKEON R ep #: [id number] : 1955 62 From: Balwinder Chino MD Attending Dr: Balwinder Chino MD Status: REG CLI Ordering Dr: Balwinder Chino MD Date: 01/26/18 Location: [facility] Sex: M C Admitted: Reason For S [...] Chino MD CC: Balwinder Chino MD; Dayan Morganon DO Date Dictated: 01/26/18 0903 Date Transcribed: 01/26/18 1339 Bakelite Molder: Signed 23-Jan-2018 Cardiology Visit Report Result: Comments: See Note; NOTES: [facility] [address] [place] [address] OFFICE VISIT Date of Service: 01/23/18 MR#: [id number] Acct: [id number] Name: NIYA MCKEON Rep #: [id number] : 1955 Provider: Balwinder Chino MD Age/Sex: 62/M Location: [facility] Status: Signed HPI HPI Chief Complaint: Irregular [...] 90/60 Intake Visit Reasons: IRREG HEART RATE ([facility] ER) Allergies No Known Allergies Allergy (Verified 01/23/18 10:46) Medications albuterol sulfate HFA 90 mcg/actuat ion aerosol inhaler 2 puff INHALATION Q6H PRN 01/22/18 [History Confirmed 01/22/18] metoprolol succinate ER 25 mg tablet,extended release 24 hr 25 mg PO DAILY #30 tab.er.24h 01/23/18 [Rx Confirmed 01/23] rivaroxaban 20 mg tablet 20 mg PO DAILY #30 tab 01/23/18 [Rx Confirmed 01/23/18] PFSH Medical History GERD (gastroesophageal reflux disease) (Chronic) [...] how long he has been in [facility] fibrillation but it is been at [...] Lead Electrocardiogram Result: Comments: See Note; NOTES: [facility] Cardiovascular Services [address] [place] [address] 12 Lead EKG 01/11/18 1536 MR#: [id number] Acct: [id number] Name: NIYA MCKEON Rep #: [id number] : 1955 62 From: George Mcwilliams MD [...] ms Atrial fibrillation Abnormal ECG Confirmed by SOLEDAD BROWNLEE MD, GEORGE ([id number]), editor in chief newspaper CURLY BAUMANN ([id number]) on 01/15/2018 2:44:33 PM Referred By: ANDREW/SEBAS Confirmed By:GEORGE MCWILLIAMS MD 01/15/18 1444 Date George Mcwilliams MD CC: Florence Carranza MD; ED PHYSICIAN PROVIDER; Rambo Machado MD Signed 11-Jan-2018 Emergency Department Summary Result: Comments: See Note; NOTES: [facility] Medical Records Department [address] [place] [address] Emergency Department Summary 01/11/18 1753 MR#: [id number] Acct: [id number] Name: NIYA MCKEON Rep #: [id number] : 1955 62 From: Rambo Machado MD [...] atrial fibrillation This note was generated with [employer] dictation software. It may contain incorrect words, [...] problems, contact your Primary Care Provider. Call [employer] [facility] ([phone]) or report to the closest Emergency Room. Call 911 if necessary. 01/11/18 9101 <Electronically signed by Rambo Machado MD> Date Rambo Machado MD Cosigner Signature ( If Indicated): Date CC: Florence Carranza MD 11-Jan-2018 Chest 1 View (Portable) Result: Comments: See Note; NOTES: [facility] Imaging Services [address] [place] [address] Chest 1 View (Portable) MR#: [id number] Acct: [id number] Name: NIYA MCKEON Rep #: [id number] : 1955 M 62 From: Bo Vivas MD PCP: NOT, DEFINED Status: PRE ER Study: Chest 1 View (Portable) Date of Exam: 01/11/18 Exam# [id number] Ordering Dr: Rambo Machado MD STUDY: X-RAY [...] , CC: DEFINED NOT; Rambo Machado MD Bakelite Molder: Signed 01-Jan-2018 Chest PA and Lateral Result: Comments: See Note; NOTES: [facility] Imaging Services [address] [place] [address] Chest PA and Lateral MR#: [id number] Acct: [id number] Name: NIYA MCKEON Rep #: [id number] : 1955 M 62 From: Lakeisha Arevalo MD PCP: Florence Carranza MD Status: REG CLI Study: Chest PA and Lateral Date of Exam: 01/01/18 Exam# [id number] Ordering Dr: Hodan Lockett BONSAI TENDER-C STUDY: X-RAY CH EST REASON FOR EXAM: [...] EDT Tel , Service support , CC: HENRI Lockett; Florence Carranza MD Bakelite Molder: Signed Immunization Name Dates Details Td (7 years and up) on: 18-Sep-2007 Comments: given in left deltoid,lot #[id number], exp. December 20 2007 AW Tdap (7 [...] smoker Vital Signs Date Test Result Details 17-Fkz-89206:11 Temperature 97.3 f Comments: Method: Temporal Pulse [...] 0.00 cm Results Date Description Value Details 52-Ort-700978:15 Free T3 Comments: Comments: DO NOT DO THESE UNTIL CHINO ORDERED [facility] [address] [place], [address] FREE T3 2.5 pg/mL (Normal) Range: 2.18-3.98 16-Krw-583406:15 PSA,Total - Annual Screen Comments: Comments: DO NOT DO THESE UNTIL ORDERED TSH [facility] [address] [place], [phone](065 PSA,TOT SCREEN 1.06 ng/mL (Normal) Range: 0.00-4.00 Comments: This test was performed using the TPSA assay method for [employer] chemistry system. Values obtained with differentassay methods cannot be used interchangably.When changing PSA assays in the course of monitoring apatient, additional sequential testing should be carriedout to confirm baseline values. :15 T4 Free Direct Comments: Comments: DO NOT DO THESE UNTIL ORDERED TSH [facility]4 [facility] [address] [place], [address] T4 FREE DIRECT 1.17 ng/dL (Normal) Range: 0.76-1.46 07-Jzq-820685:15 T4 Total, Thyroxin Comments: Comments: DO NOT DO THESE UNTIL ORDERED TSH [facility]4 [facility] [address] [place], [address] T4 THYROXIN 12.4 ug/dL (Abnormal) Range: 4.5-12.1 :15 Thyroid Stim Hormone (TSH) Comments: Comments: DO NOT DO THESE UNTIL ORDERED TSH T4 [facility] [address]vt[address] [place], [address](655 TSH 4.02 {uIU/mL} (Abnormal) Range: 0.358-3.74 48-Qtq-082910:55 Free T3 Comments: [facility] [address]km4252 [place], [phone](990 FREE T3 2.5 pg/mL (Normal) Range: 2.18-3.98 61-Qpr-962381:55 PSA,Total - Annual Screen Comments: [facility] [address] [place], [phone](021 PSA,TOT SCREEN 1.68 ng/mL (Normal) Range: 0.00-4.00 Comments: This test was performed using the TPSA assay method for [employer] chemistry system. Values obtained with differentassay methods cannot be used interchangably.When changing PSA assays in the course of monitoring apatient, additional sequential testing should be carriedout to confirm baseline values. 40-Ulc-026270:55 T4 Free Direct Comments: [facility] [address] [facility] [address] [place], [place], [address] T4 FREE DIRECT 1.09 ng/dL (Normal) Range: 0.76-1.46 98-Akc-608505:55 Thyroid Stim Hormone (TSH) Comments: [facility] [address] [place], [place], [address] TSH 3.72 {uIU/mL} (Normal) Range: 0.358-3.74 20-Ulb-910866:45 Basic Metabolic Profile (BMP) Comments: [facility] [address] [place], [place], [address] GAP 8 (Normal) Range: 5-15 CO2 24.0 [...] A.D.A. criteria.Please note revised GLUCOSE reference range hcyyqsgiq63/02/2018. 79-Oim-253739:45 CBC W/Diff, Automated Comments: [facility] [address] [place], [address] Absolute Lymph 3.07 {X10_3/ul} (Normal) Range: 0.83-4.51 [...] 4.6-6.2 WBC 10.1 K/mm3 (Normal) Range: 4.4-11.0 82-Bsm-286673:45 Troponin-I Comments: [facility] [address] [place], [address] TROPONIN-I < 0.015 ng/mL (Normal) Comments: TROPONIN-I EXPECTED VALUES <0.045 Negative 0.045 - 0.590 Consistent with Cardiac Damage > OR = 0.600 Critical Value Not every elevated troponin is indicative of KS. T hesevalues should be used with clinical judgement in examiningthe patient's clinical picture for diagnosis. To establisha diagnosis of KS versus myocardial injury, there must be ademonstrated rise and/ or fall in the troponin values, inaddition to ischemic symptoms, EKG changes, new regionalwall motion abnormality, and/or angiographical evidence. PLEASE NOTE: REFERENCE RANGES EDITED 11/20/1729-Jan-201811-Fzh-573946:54 Basic Metabolic Profile (BMP) Comments: Comments: For heart cathComments: For [facility] [address] [place], [address] GAP 10 (Normal) Range: 5-15 [...] Comments: Please note revised GLUCOSE reference range hvysnjwfh36/02/2018. 23-Vvu-079027:54 Basic Metabolic Profile (BMP) Comments: Comments: For heart cathComments: For [facility] [address] [place], [id number] GAP 10 (Normal) Range: 5-15 CO2 22.0 [...] Comments: Please note revised GLUCOSE reference range rutbfgetz62/02/2018. 59-Ybo-449740:54 CBC-Complete Blood Cnt No Diff Comments: [facility] [address] [facility] [place], [address] MPV 10.2 fL (Normal) Range: [...] 4.6-6.2 WBC 9.6 K/mm3 (Normal) Range: 4.4-11.0 39-Eog-379790:54 CBC-Complete Blood Cnt No Diff Comments: [facility] [address] [place], [address] MPV 10.2 fL (Normal) Range: [...] Time Comments: Comments: For heart cathComments: For [facility] [address] [place], [place], [phone](133) PTT 29.6 s (Normal) Range: 24.1-36.2 39-Zpz-351571:54 Partial Thromboplast Time Comments: Comments: For heart cathComments: For [facility] [address] [place], [address](686 PTT 29.6 s (Normal) Range: 24.1-36.2 75-Nkp-929355:54 Prothrombin Time w/INR Comments: Comments: For heart cathComments: For [facility] [address] [place], [address](500) INR 1.0 (Normal) PROTIME 13.5 s (Normal) Range: 11.7-14.9 00-Fck-999153:54 Prothrombin Time w/INR Comments: Comments: For heart cathComments: For [facility] [address] [place], [address]( INR 1.0 (Normal) PROTIME 13.5 s (Normal) Range: 11.7-14.9 :05 Lipid Profile Comments: [facility] [address] [place], [address](962) VLDL 18 mg/dL (Normal) Range: 5-40 LDL [...] 200-240 mg/dL Borderline >240 mg/dL High Risk 48-Gev-61188:05 Liver Profile Comments: [facility] [address] [place], [place], [address] D BILI 0.28 mg/dL (Normal) Range: 0.00-0.30 T BILI 1.60 mg/dL (Abnormal) Range: 0.20-1.00 ALT 41 U/L (Normal) Range: 16-61 ALK P 76 U/L (Normal) Range: 45-117 AST 31 U/L (Normal) Range: 15-37 GLOB 3.5 g/dL (Normal) Range: 2.2-4.2 ALB 3.7 g/dL (Normal) Range: 3.2-5.0 T PROT 7.2 g/dL (Normal) Range: 6.4-8.2 01-Xfe-90042:05 T4 Total, Thyroxin Comments: [facility] [address] [place], [place], [address] T4 THYROXIN 8.7 ug/dL (Normal) Range: 4.5-12.1 74-Rek-56075:05 Thyroid Stim Hormone (TSH) Comments: [facility] [address] [place], [place], [id number] TSH 7.24 {uIU/mL} (Abnormal) Range: 0.358-3.74 1-Uhw-174023:44 Basic Metabolic Profile (BMP) Comments: [facility] [address] [place], [place], [id number] GAP 8 (Normal) Range: 5-15 CO2 21.0 [...] A.D.A. criteria.Please note revised GLUCOSE reference range pgcnxbkuh04/02/2018. 1-Zaz-435234:44 CBC W/Diff, Automated Comments: [facility] [address] [place], [address] Absolute Lymph 2.30 {X10_3/ul} (Normal) Range: 0.83-4.51 [...] Range: 4.4-11.0 :44 Prothrombin Time w/INR Comments: [facility] [address] [place], [address] INR 1.0 (Normal) PROTIME 13.5 s (Normal) Range: 11.7-14.9 4-Jqi-106063:44 Troponin-I Comments: [facility] [address] [place], [address] TROPONIN-I < 0.015 ng/mL (Normal) Comments: TROPONIN-I EXPECTED VALUES <0.045 Negative 0.045 - 0.590 Consistent with Cardiac Damage > OR = 0.600 Critical Value Not every elevated troponin is indicative of [place]. T hesevalues should be used with clinical judgement in examiningthe patient's clinical picture for diagnosis. To establisha diagnosis of KS versus myocardial injury, there must be ademonstrated rise and/ or fall in the troponin values, inaddition to ischemic symptoms, EKG changes, new regionalwall motion abnormality, and/or angiographical evidence. PLEASE NOTE: REFERENCE RANGES EDITED 17:17 CBC-Complete Blood Cnt No Diff Comments: [facility] [address] [place], [place], [id number] MPV 9.8 fL (Normal) Range: 6.2-12.0 PLT [...] 4.6-6.2 WBC 7.0 K/mm3 (Normal) Range: 4.4-11.0 98-Aul-08553:17 Comprehensive Metabolic Profil Comments: [facility] [address] [place], [address] GAP 10 (Normal) Range: 5-15 CO2 23.0 [...] (Normal) Range: 70-110 :17 Lipid Profile Comments: [facility] [address] [place], [place], [address] VLDL 10 mg/dL (Normal) Range: 5-40 LDL [...] 200-240 mg/dL Borderline >240 mg/dL High Risk :17 PSA,Total - Annual Screen Comments: [facility] [address] [place], [place], [address] PSA,TOT SCREEN 1.45 ng/mL (Normal) Range: 0.00-4.00 Comments: This test was performed using the TPSA assay method for the[facility] chemistry system. Values obtained with differentassay methods cannot be used interchangably.When changing PSA assays in the course of monitoring apatient, additional sequential testing should be carriedout to confirm baseline values. 9-Nwf-990262:27 Anaerobic and Aerobic Culture Comments: Clinical Information: SRC:AM RT UPPER LAT. PERFORMED BY: BEREKET [facility] CenterNskvdk8258 [facility] [id number] Aerobic Culture Final report (Normal) Anaerobic Culture Final report (Normal) Result 1 NANG72 (Normal) Comments: No anaerobic growth in 72 hours. Result 1 BACNBA (Normal) Comments: Bacillus species, not Bacillus anthracisModerate growthSusceptibility not normally performed on this organism. 52-Rpw-765442:25 T4, FREE (THYROXINE) (93064) Comments: PATIENT NOT FASTINGPERFORMED BY: [facility]6370 [facility] [id number] T4,Free(Direct) 1.00 ng/dL (Normal) Range: 0.61-1.76 :25 T3, FREE (TRIDOTHYRONINE) (77264) Comments: PATIENT NOT FASTINGPERFORMED BY: [address] [id number] Triiodothyronine,Free,Serum 3.1 pg/mL (Normal) Range: 2.3-4.2 49-Ahq-534528:25 TSH (06588) Comments: PATIENT NOT FASTINGClinical Information: ADD DRAW FEE 822193 ADD J 44221 PERFORMED BY: [address] [id number] TSH 3.691 {uIU/mL} (Normal) Range: 0.450-4.500 24-Huv-784629:25 Anti-TPO Antibody (21053) Comments: PATIENT NOT FASTINGPERFORMED BY: [address] [id number] Thyroid Peroxidase (TPO) Ab <10 {IU/mL} (Normal) Range: 0-34 :44 Thyroxine (T4) Free, Direct, S Comments: PATIENT WAS FASTINGClinical Information: ADD DRAW FEE [id number] ADD J 43715 PERFORMED BY: [place] [id number] [facility] [id number] T4,Free(Direct) 0.88 ng/dL Range: 0.61-1.76 (Normal) Triiodothyronine,Free,Seru 3.1 pg/mL (Normal) Comments: PATIENT WAS FASTINGPERFORMED BY: [place] [id number] [facility] [id number] :44 m Range: 2.3-4.2 Written Authorization WAR (Normal) Comments: PATIENT WAS FASTINGPERFORMED BY: [address] [id number] :44 Comments: Written Authorization Received.Authorization received from DR CARRANZA [id number] by Leigh Ann Diehl :44 PSA (PROSTATE SPECIFIC Comments: PATIENT WAS FASTINGPERFORMED BY: [employer] [facility] [id number] ANTIGEN) (V76.44) Prostate Specific Ag, Serum 2.3 ng/mL (Normal) Range: 0.0-4.0 Comments: Fahad ECLIA methodology. .According to the [place] [employer], PSA should beundetectable after radical prostatectomy. A PSA of less than0.5 ng/mL (or undetectable) is not likely to be associated withdisease recurrence within five years of treatment.Values obtained with different assay methods or kits cannot be usedinterchang eably. Results cannot be interpreted as absolute evidenceof the presence or absence of malignant disease. :44 Lipid Panel (83303) Comments: PATIENT WAS FASTINGPERFORMED BY: [employer]6[address] [facility] [id number] Cholesterol, Total 182 mg/dL (Normal) Range: 100-199 [...] PANEL, COMPREHENSIVE Comments: PATIENT WAS FASTINGPERFORMED BY: [employer]6370 [facility] [id number] (52766) A/G Ratio 1.5 (Normal) Range: 1.1-2.5 Albumin, [...] Serum 82 mg/dL (Normal) Range: 65-99 If -B[place]ian >59 mL/min/1.73 Comments: Note: Persistent reduction for [...] Range: 135-145 13-Aug-20088:44 CBC WITH MANUAL DIFF (40495) Comments: PATIENT WAS FASTINGClinical Information: ADD DRAW FEE 116574 ADD J 42906 PERFORMED BY: [facility] CenterWaqpzv7457 [facility] [id number] Baso (Absolute) 0.1 {x10E3/uL} (Normal) Range: 0.0-0.2 [...] 6.6 {x10E3/uL} (Normal) Range: 4.0-10.5 :44 TSH (20793) Comments: PATIENT WAS FASTINGPERFORMED BY: [facility]CoR[facility] CenterBjrsas3778 [facility] [id number] TSH 6.078 {uIU/mL} (Abnormal) Range: 0.450-4.500 :06 [...] was performed using the TPSA method for the[employer] chemistry system.Values obtained with different assay methods cannot be usedinterchangably.When changing PSA assays in the course of monito ring apatient, additional sequential testing should be carriedout to confirm baseline values. Plan of Care Name Dates Details Instructions CKD stage G2/A1, GFR 60-89 and albumin [...] and physical exam for male Planned Observations CBC & PLATELETS (AUTO) (70334)Indication: Elevated hemoglobin On: 1-Gtf-374722:23 Request TSH (THYROID STIMULATING HORMONE) (34947)Indication: Hypothyroid On: 3-Wsx-163190:22 Request CBC & PLATELETS (AUTO) (26099)Indication: Elevated hemoglobin On: 1-Xqo-491619:22 Request TSH (THYROID STIMULATING HORMONE) (59627)Indication: Hypothyroid On: 6-Dlq-119108:28 Request PSA (PROSTATE SPECIFIC ANTIGEN) (V76.44)Indication: Screening for prostate cancer On: 50-Yxz-212139:19 Request T3, FREE (TRIDOTHYRONINE) (52864)Indication: Hypothyroid On: 32-Ulf-740745:18 Request T4, FREE (THYROXINE) (51573)Indication: Hypothyroid On: 00-Dmq-541435:18 Request TSH (THYROID STIMULATING HORMONE) (47225)Indication: Hypothyroid On: 02-Zdl-611367:18 Request CBC (Auto) (75741)Indication: Encounter for routine history and physical exam for male On: 12-Vev-173959:38 Request Metabolic Panel, Comprehensive (46387)Indication: Encounter for routine history and physical exam for male On: 58-Ima-741069:38 Request LIPID PANEL (14698)Indication: Encounter for routine history and physical exam for male On: 09-Yuv-090284:37 Request PSA (Prostate Specific Antigen), Screening (80350)Indication: Screening for prostate cancer On: 43-Quh-522215:43 Request BARRETT CULTURE-OTHER (14446)Indication: Skin lesion On: 15-Apr-20099:09 Request Comments: rt lateral side area of splinter removal HEPATIC FUNCTION PANEL (94884)Indication: oncomycosis On: 77-Xtw-275025:15 Request Comments: 8 weeks Metabolic Panel, Comprehensive (94632)Indication: oncomycosis On: 17-Qgi-747041:10 Request Glucose (06704)Indication: Encounter for routine history and physical exam for male On: 31-Irz-31619:41 Request PSA (PROSTATE SPECIFIC ANTIGEN) (V76.44)Indication: Encounter for routine history and physical exam for male On: 80-Ssv-35902:39 Request Planned Encounters Medical; 3 Month FU - On: 21-May-2018 9:45 [facility] Charissa NOWAK, [place] Ciesa [employer], [place] Planned Procedures Spirometry (65008)By: Levy, On: 01-Jan-2018 Intent Hodan Comments: Normal Spirometry CHEST XRAY, PA & LATERAL On: 01-Jan-2018 Intent (70472)By: Hodan Lockett Ear Irrigation (52923)By: Momo On: 08-Jul-2011 Intent Florence WASSERMAN Comments: left ear irrigated and removed moderate amoutn of yellow wax without difficulty. no bleeding or pain. auditory canal clear now. done by raymond jo Wax CurettesBy: Florence Carranza MD On: 08-Jul-2011 Intent TDAP VACCINE >7 IM (27132)By: On: 15-Apr-2009 Intent [facility], [place] CiBanner, [place] Holter Moniter (83153)By: Momo On: 12-Aug-2008 Intent Florence WASSERMAN EKG (24849)By: Florence Carranza MD On: 12-Aug-2008 Intent Comments: rhthym Spirometry (06240)By: Omid BOX, On: 01-Oct-2007 Intent Carmen A Comments: good effort and curve- with mild obstruction Inhaler Demo (43913)By: Omid BOX, On: 01-Oct-2007 Intent Carmen A Aerosol Treatment (87323)By: Oimd On: 01-Oct-2007 Intent Carmen BOX Pulse Oximetry (78878)By: Humphrey On: 01-Oct-2007 Intent Sravanthi BARBER TD Injection , IM (21120)By: On: 18-Sep-2007 Intent Florence Carranza MD Comments: given in left deltoid,lot #[id number], exp. 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
--- OUTSIDE RECORDS SUMMARY | 2018-09-29 22:14 | XMS RPT_ITS ---
:1955 Author Organization OHIP Support Name Relationship Address Phone TALISHA MCKEONA Unavailable [address] + [place] [address] SELF Unavailable Unavailable Unavailable FRANKO, BARBRA Unavailable [address] + [place] [address] SELF Unavailable Unavailable Unavailable FRANKO, BARBRA Unavailable [address] + [place] [address] SELF Unavailable Unavailable Unavailable FRANKO, BARBRA Unavailable [address] + [place] [address] SELF Unavailable Unavailable Unavailable FRANKO, BARBRA Unavailable [address] + [place] [address] SELF Unavailable Unavailable Unavailable FRANKO, BARBRA Unavailable [address] + [place] [address] SELF Unavailable Unavailable Unavailable FRANKO, BARBRA Unavailable [address] + [place] [address] SELF Unavailable Unavailable Unavailable FRANKO, BARBRA Unavailable [address] + [place] [address] SELF Unavailable Unavailable Unavailable FRANKO, BARBRA Unavailable [address] + [place] [address] SELF Unavailable Unavailable Unavailable FRANKO, BARBRA Unavailable [address] + [place] [address] SELF Unavailable Unavailable Unavailable FRANKO, BARBRA Unavailable [address] + [place] [address] SELF Unavailable Unavailable Unavailable FRANKO, BARBRA Unavailable [address] + [place] [address] SELF Unavailable Unavailable Unavailable FRANKO, BARBRA Unavailable [address] + [place] [address] SELF Unavailable Unavailable Unavailable FRANKO, BARBRA Unavailable [address] + [facility] [place] [address] SELF Unavailable Unavailable Unavailable FRANKO, BARBRA Unavailable [address] + [place] [address] SELF Unavailable Unavailable Unavailable FRANKO, BARBRA Unavailable [address] + [place] [address] SELF Unavailable Unavailable Unavailable FRANKO, BARBRA Unavailable [address] + [place] [address] SELF Unavailable Unavailable Unavailable FRANKO, BARBRA Unavailable [address] + [place] [address] SELF Unavailable Unavailable Unavailable FRANKO, BARBRA Unavailable [address] + [place] [address] SELF Unavailable Unavailable Unavailable FRANKO, BARBRA Unavailable [address] + [place] [address] SELF Unavailable Unavailable Unavailable FRANKO, BARBRA Unavailable [address] + [place] [address] SELF Unavailable Unavailable Unavailable FRANKO, BARBRA Unavailable [address] + [place] [address] SELF Unavailable Unavailable Unavailable FRANKO, BARBRA Unavailable [address] + [place] [address] SELF Unavailable Unavailable Unavailable FRANKO, BARBRA Unavailable [address] + [place] [address] SELF Unavailable Unavailable Unavailable FRANKO, BARBRA Unavailable [address] + [place] [address] SELF Unavailable Unavailable Unavailable FRANKO, BARBRA Unavailable [address] + [facility] [place] [address] SELF Unavailable Unavailable Unavailable FRANKO, BARBRA Unavailable [address] + [facility] [place] [address] SELF Unavailable Unavailable Unavailable FRANKO, BARBRA Unavailable [address] + [facility] [place] [address] SELF Unavailable Unavailable Unavailable FRANKO, BARBRA Unavailable [address] + [place] [address] SELF Unavailable Unavailable Unavailable FRANKOBARBRA Unavailable [address] + [place] [address] SELF Unavailable Unavailable Unavailable Care Team Providers Name Role Phone Mendy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 Attending Unavailable Ciesa, Steff Referring Unavailable Ciesa, Steff Consulting Unavailable Balwinder Chino Attending Unavailable [facility] Unavailable Ciesa, Steff Attending Unavailable Ciesa, Steff Referring Unavailable Ciesa, [facility] Primary Care Unavailable Balwinder Chino Consulting Unavailable Hodan Lockett ARRANGER ASSEMBLER-C Attending Unavailable Hodan Lockett ARRANGER ASSEMBLER-C Referring Unavailable Bonezzi, Florence Primary Care Unavailable Bonezzi, Florence Primary Care Unavailable Rambo Machado Attending Unavailable Balwinder Chino Attending Unavailable Bonezzi, Florence Referring Unavailable Bonezzi, Florence Primary Care Unavailable Balwinder Chino Attending Unavailable Balwinder Chino Referring Unavailable Tyson, Dayan Primary Care Unavailable Balwinder Chino Attending Unavailable Balwinder Chino Referring Unavailable Tyson, Dayan Primary Care Unavailable Balwinder Chino Attending Unavailable Balwinder Chino Referring Unavailable Tyson, Dayan Primary Care Unavailable Balwinder Chino Attending Unavailable Tyson, Dayan Referring Unavailable Tyson, Dayan Primary Care Unavailable Balwinder Chino Attending Unavailable Balwinder Chino Referring Unavailable Tyson, Dayan Primary Care Unavailable Ciesa, Steff Primary Care Unavailable Slick Gould Admitting Unavailable Tonyelfjack, Ghasem Attending Unavailable Balwinder Chino Consulting Unavailable Slick Gould Admitting Unavailable Slick Gould Attending Unavailable [facility] Unavailable Slick Gould Consulting Unavailable Slick Gould Admitting Unavailable Balwinder Chino Attending Unavailable [facility] Unavailable Balwinder Chino Consulting Unavailable oTnyelfjack, Ghasem Consulting Unavailable Slick Gould Admitting Unavailable Ciesa, [facility] Primary Care Unavailable Balwinder Chino Consulting Unavailable Ashelfah, Ghasem Attending Unavailable Ashelfah, Ghasem Consulting Unavailable Blaine, Ghelisabethm Attending Unavailable Slick Gould Admitting Unavailable [facility] Unavailable Balwinder Chino Consulting Unavailable Ashelfah, Ghasem Consulting Unavailable Balwinder Chino Attending Unavailable Ciharshada, Steff Referring Unavailable Cimatthew, [facility] Primary Care Unavailable Ciharshadnorris, Steff Attending Unavailable Ciharshada, Steff Referring Unavailable Ciesa, [facility] Primary Care Unavailable Balwinder Chino Attending Unavailable Balwinder Chino Attending Unavailable Balwinder Chino Referring Unavailable Ciesa, [facility] Primary Care Unavailable Balwinder Chino Attending Unavailable Balwinder Chino Referring Unavailable Ciesa, [facility] Primary Care Unavailable Balwinder Chino Consulting Unavailable Balwinder Chino Attending Unavailable Ciesa, Steff Referring Unavailable Ciesa, [facility] Primary Care Unavailable Balwinder Chino Attending Unavailable Balwinder Chino Referring Unavailable Ciesa, [facility] Primary Care Unavailable Balwinder Chino Attending Unavailable Balwinder Chino Referring Unavailable Ciesa, [facility] Primary Care Unavailable Karan Chaudhry Attending Unavailable Slick Gould Referring Unavailable Ciesa, Steff Attending Unavailable Ciesa, Steff Referring Unavailable Ciesa, [facility] Primary Care Unavailable Balwinder Chino Consulting Unavailable Balwinder Chino Attending Unavailable Balwinder Chino Referring Unavailable Ciesa, [facility] Primary Care Unavailable Balwinder Chino Attending Unavailable Balwinder Chino Referring Unavailable Ciesa, [facility] Primary Care Unavailable Balwinder Chino Attending Unavailable Ciesa, [facility] Primary Care Unavailable Balwinder Chino Attending Unavailable Balwinder Chino Referring Unavailable Ciesa, [facility] Primary Care Unavailable Balwinder Chino Attending Unavailable Ciesa, [facility] Primary Care Unavailable PROBLEMS PROBLEMS DATE TYPE CONDITION / CODE ATTENDING STATUS SOURCE 08/04/2018 Unknown E78.00 - Pure CiesSteff pisano Active [facility] hypercholesterolemia, Community unspecified / Hospital E78.00(ICD-10) Repository 08/04/2018 Unknown E03.9 - CiesaSteff Active [facility] Hypothyroidism, Community unspecified / Hospital E03.9(ICD-10) Repository 08/04/2018 Unknown I10 - Essential CiesSteff pisano Active [facility] (primary) hypertension Community / I10(ICD-10) Hospital Repository 07/26/2018 Unknown E66.9 - Obesity, Balwinder Chino Active [facility] unspecified / Community E66.9(ICD-10) Hospital Repository 06/09/2018 Unknown I42.8 - Other Balwinder Chino Active [facility] cardiomyopathies / Community I42.8(ICD-10) Hospital Repository 02/16/2018 Unknown I25.10 - Balwinder Chino Active [facility] Atherosclerotic heart Community disease of [facility] coronary artery Repository without angina pectoris / I25.10(ICD-10) 02/16/2018 Unknown Z12.5 - Encounter for CiesaSteff Active [facility] screening for Community malignant neoplasm of Hospital prostate / Repository Z12.5(ICD-10) 03/22/2018 Unknown I48.91 - Unspecified Balwinder Chino Active [facility] atrial fibrillation / Community I48.91(ICD-10) Hospital Repository 03/22/2018 Unknown I51.7 - Cardiomegaly / Balwinder Chino Active [facility] I51.7(ICD-10) [facility] Repository 03/22/2018 Unknown I42.9 - Balwinder Chino Active [facility] Cardiomyopathy, Community unspecified / Hospital I42.9(ICD-10) Repository 03/16/2018 Unknown R07.9 - Chest pain, [place], Active [facility] unspecified / [facility] R07.9(ICD-10) Hospital Repository 03/16/2018 Unknown R07.89 - Other chest [place], Active [facility] pain / R07.89(ICD-10) [facility] Repository 03/16/2018 Unknown I48.2 - Chronic atrial [place], Active [facility] fibrillation / [facility] I48.2(ICD-10) Hospital Repository 03/16/2018 Unknown I25.110 - [place], Active [facility] Atherosclerotic heart [facility] disease of [facility] coronary artery with Repository unstable angina pectoris / I25.110(ICD-10) PROCEDURES PROCEDURES No Procedure Records FoundRESULTS RESULTS BASIC METABOLIC Collected: 08/04/2018 Status: F Source: [facility] PROFILE (BMP) 7:43 AM [facility] Order Comment: DR CHINO ORDERED LIVER LIPID STEFF SUBRAMANIAN ORDERED LIPID TSH CMP TYPE CODE TESTS RESULT OUT OF RANGE REFERENCE UNITS LAB L501.0100 74-106 mg/dL Normal GLU 86 Result Comment: Please note revised GLUCOSE reference range effective 2017. LAB L501.1000 7-18 mg/dL Normal BUN 17 LAB L501.1100 0.70-1.30 mg/dL Normal CREAT,SERUM 1.25 Result Comment: The validity of the calculated GFR AND GFRAA in patients over 70 years has not been determined. Clinical correlation is essential. LAB L501.1110 >60 mL/min Normal EST GFR 62 Result Comment: Non- GFR Calc LAB L501.1115 >60 mL/min Normal EST GFR - AA 76 Result Comment: GFR Calc LAB L501.1300 10-20 RATIO Normal BUN/CRE 13.6 LAB L501.2200 8.5-10.1 mg/dL Low CA 8.4 LAB L501.5300 136-145 mmol/L NA Normal 141 LAB L501.5600 3.5-5.1 mmol/L K Normal 4.2 LAB L501.5900 98-107 mmol/L High CL 112 LAB L501.6100 21.0-32.0 mmol/L Normal CO2 23.0 LAB L501.6200 5-15 Normal GAP 6 Performed By: #### L500.2500, L500.3400, L500.4100, L501.9520 #### [facility] [address] [place], [place], [id number] LIVER PROFILE Collected: 08/04/2018 Status: F Source: [place] 7:43 [facility] REPOSITORY Order Comment: DR CHINO ORDERED LIVER LIPID STEFF SUBRAMANIAN ORDERED LIPID TSH CMP TYPE CODE TESTS RESULT OUT OF RANGE REFERENCE UNITS LAB L501.1500 6.4-8.2 g/dL Normal T PROT 6.9 LAB L501.1800 3.2-5.0 g/dL Normal ALB 3.6 LAB L501.1950 2.2-4.2 g/dL Normal GLOB 3.3 LAB L501.4100 15-37 U/L High AST 41 LAB L501.4305 45-117 U/L Normal ALK P 81 LAB L501.4405 16-61 U/L High ALT 65 LAB L501.4600 0.20-1.00 mg/dL High T BILI 1.10 LAB L501.4700 0.00-0.30 mg/dL High D BILI 0.34 Performed By: #### L500.2500, L500.3400, L500.4100, L501.9520 #### [facility] [address] [facility] [place], [address] LIPID PROFILE Collected: 08/04/2018 Status: F Source: [place] 7:43 [facility] REPOSIT[facility] Order Comment: DR CHINO ORDERED LIVER LIPID STEFF CIESA ORDERED LIPID TSH CMP TYPE CODE TESTS RESULT OUT OF RANGE REFERENCE UNITS LAB L501.4900 200 mg/dL Normal CHOL 93 Result Comment: <200 mg/dL Desirable 200-240 mg/dL Borderline >240 mg/dL High Risk LAB L501.5000 mg/dL Normal TRIG 50 Result Comment: The drugs N-Acetylcysteine and Metamizole may falsely depress this assay. Serum Triglycerides Reference Interval Normal <150 mg/dL Borderline high 150 - 199 mg/dL High 200 - 499 mg/dL Very High > or = 500 mg/dL LAB L501.6400 mg/dL Normal HDL 41 Result Comment: The drugs N-Acetylcysteine and Metamizole may falsely depress this assay. Reference Range HDL <40 mg/dL Low HDL Cholesterol HDL >or= 60 mg/dL High HDL Cholesterol LAB L501.6500 0-130 mg/dL Normal LDL 42 LAB L501.6600 5-40 mg/dL Normal VLDL 10 Performed By: #### L500.2500, L500.3400, L500.4100, L501.9520 #### [facility] [address] [place], [place], [address] THYROID STIM HORMONE Collected: 08/04/2018 Status: F Source: [place] (TSH) 7:43 AM [facility] Order Comment: DR CHINO ORDERED LIVER LIPID STEFF SUBRAMANIAN ORDERED LIPID TSH CMP TYPE CODE TESTS RESULT OUT OF RANGE REFERENCE UNITS LAB L501.9520 0.358-3.74 uIU/mL Normal TSH 3.00 Performed By: #### L500.2500, L500.3400, L500.4100, L501.9520 #### [facility] [address] [place], [place], [address] FREE T3 Collected: 04/07/2018 Status: F Source: [place] 10:15 AM [facility] Order Comment: Comments: DO NOT DO THESE UNTIL DR CHINO ORDERED TSH T4 ONLY TYPE CODE TESTS RESULT OUT OF RANGE REFERENCE UNITS LAB L501.29317 2.18-3.98 pg/mL Normal FREE T3 2.5 Performed By: #### L501.18416, L501.9310, L501.9520, L501.9910, L506.0400 #### [facility] [address] [place], [address] T4 TOTAL, THYROXIN Collected: 04/07/2018 Status: F Source: [place] 10:15 AM [facility] Order Comment: Comments: DO NOT DO THESE UNTIL DR CHINO ORDERED TSH T4 ONLY TYPE CODE TESTS RESULT OUT OF REFERENCE UNITS RANGE LAB L501.9310 4.5-12.1 ug/dL T4 High THYROXIN 12.4 Performed By: #### L501.93185, L501.9310, L501.9520, L501.9910, L506.0400 #### [facility] [address] [place], [address] THYROID STIM HORMONE Collected: 04/07/2018 Status: F Source: [place] (TSH) 10:15 AM [facility] Order Comment: Comments: DO NOT DO THESE UNTIL DR CHINO ORDERED TSH T4 ONLY TYPE CODE TESTS RESULT OUT OF RANGE REFERENCE UNITS LAB L501.9520 0.358-3.74 uIU/mL High TSH 4.02 Performed By: #### L501.54934, L501.9310, L501.9520, L501.9910, L506.0400 #### [facility] [address] [place], [address] PSA,TOTAL - ANNUAL Collected: 04/07/2018 Status: F Source: [place] SCREEN 10:15 AM [facility] Order Comment: Comments: DO NOT DO THESE UNTIL DR CHINO ORDERED TSH T4 ONLY TYPE CODE TESTS RESULT OUT OF RANGE REFERENCE UNITS LAB L501.9910 0.00-4.00 ng/mL Normal PSA,TOT 1.06 SCREEN Result Comment: This test was performed using the TPSA assay method for the [facility] chemistry system. Values obtained with different assay methods cannot be used interchangably. When changing PSA assays in the course of monitoring a patient, additional sequential testing should be carried out to confirm baseline values. Performed By: #### L501.82239, L501.9310, L501.9520, L501.9910, L506.0400 #### [facility] [address] [place], [address] T4 FREE DIRECT Collected: 04/07/2018 Status: F Source: [place] 10:15 AM [facility] Order Comment: Comments: DO NOT DO THESE UNTIL DR CHINO ORDERED TSH T4 ONLY TYPE CODE TESTS RESULT OUT OF RANGE REFERENCE UNITS LAB L506.0400 0.76-1.46 ng/dL Normal T4 FREE 1.17 DIRECT Performed By: #### L501.75625, L501.9310, L501.9520, L501.9910, L506.0400 #### [facility] [address] [facility] 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 Interventions with present event:: Cardioversion 10 days ago. So far been in normal rhythm. - Medications Home Medications: Ambulatory Orders Medication Instructions Recorded metoprolol succinate ER 25 mg 25 mg PO DAILY #30 tab.er.24h 01/23/18 - Allergies Allergies/Adverse Reactions: Allergies No Known Allergies Allergy (Verified 02/16/18 08:22) - Sleep Disorder Evaluation Hx of Sleep Apnea: Yes Do you snore loudly (louder than talking or can be heard through closed doors)?: Yes - Dr. Chino wants him to be tested. Do you often feel tired/ fatigued/ sleepy during daytime?: No - much improved than prior to cardioversion. Has anyone observed you stop breathing during sleep?: No History of Hypertension (for STOP score): No STOP Results: Negative Advanced Directives - Advanced Directives Power of Security Officer Supervisor: Yes Living Will: Yes Advance Directives Information Provided: No Advance Directives on File: Yes DNR Order?:: No - MOLST See MOLST form: No Past Medical History - Past Medical Illness Medical History: Past Medical History (Last Updated 03/02/18 @ 13:19 by Clotilde Bautista) Snoring (Chronic) R06.83 Daytime somnolence (Chronic) R40.0 Nonischemic cardiomyopathy (Chronic) I42.8 EF 35% per echo 01/26/18 Atherosclerotic heart disease of [place] coronary artery without angina pectoris (Chronic) I25.10 Nonobstructive coronary arteries (<30% stenosis in LAD, CX, and RCA: left main normal) per [facility] 02/02/[address] Chino @ [facility] Atrial enlargement, right (Chronic) I51.7 Per echo 01/26/18 GERD (gastroesophageal reflux disease) (Chronic) K21.9 Atrial fibrillation (Chronic) I48.91 - Past Surgical History Surgical History: Past Surgical History (Last Reviewed 02/16/18 @ 08:22 by Clotilde Bautista) History of left heart catheterization (Chronic) Onset Date: 02/02/18 Z98.890 Nonobstructive coronary arteries (<30% stenosis in LAD, CX, and RCA: left main normal) per [facility] 02/02/[address] Chino @ [facility] H/O lateral meniscus repair of left knee Onset Date: [address] 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 Recreational Activities: I am able to engage in all my recreational activities - now that have had cardioversion able to do more Social Environment - Status Marital Status: - Current Living Arrangements Living Environment:: Family - Children How many [...] = Denies (Slash). Left click = Reports ([place]) Review of Present Symptoms: Reports: Shortness of Breath with Exertion - much improved since cardioversion but still noticable., Fatigue, Heart Arrhythmia/Irregularities - atrial fibrillation, Appetite - Normal, Sleep - Normal. Denies: Shortness of Breath at Rest, Angina - previously was experienceing feeling of pressure., Dizziness/Lightheadedness, Appetite - Special Diet, Sexual Changes - Pain Is Patient Pain Free?: Yes Pain Location: none Risk Factor Assessment - Chief Complaint Chief Complaint: Patient is a 62 year old male patient of Dr. Balwinder Chino who recently was hospitalized with atrial fibrillation and CHF w EF <35%. He recently had a cardioversion done 10 [...] Obesity Height: 6 ft Weight:: 255 lb Weight in Pounds: 255.0 lbs Weight Source: Standing [...] Highest Risk: Risk Factor for Obesity - For Smoking Smoking Risk Guidelines: Smoking Low Risk: None or quit greater than 6 months ago. Smoking Moderate Risk: Smoker or quit 6 months or less ago. Smoking High Risk: Smoker - For Dyslipidemia Dyslipidemia Risk Guidelines: Low Risk: Moderate Risk: High Risk: 15-25% fat 25.1-29% fat >/= 30% fat. <7% sat fat 7-9% sat fat >9% sat fat. <150 mg chol 150-299 mg chol >/= 300 mg chol. LDL <100 LDL 100-129 LDL >/= 130. Chol/HDL ratio <5.0 Chol/HDL ratio 5.0-6.0 Chol/HDL ratio >6.0. Triglycerides <100 Triglycerides 100-149 Triglycerides >/= 150 - For Diabetes Mellitus Diabetes Risk Guidelines: Diabetes Low Risk: HgA1c <6.5% and/or FBG <120. Diabetes Moderate Risk: HgA1c 6.6-7.9% and/or FBG 120- 180. Diabetes High Risk: HgA1c >/= 8% and/or FBG >180 - For Obesity/Overweight Obesity/Overweight Risk Guidelines: Obesity Low Risk: BMI <25.0. Obesity Moderate Risk: BMI 25-29.9. Obesity High Risk: BMI >/= 30.0 - For Hypertension Hypertension Risk Guidelines: Hypertension Low Risk: Systolic <120 and Diastolic <80. Hypertension Moderate Risk: Systolic 120-139 and Diastolic 80-89. Hypertension High Risk: Systolic >/= 140 and Diastolic >/= 90 - For Sedentary Lifestyle Sedentary Lifestyle Risk Guidelines: Sedentary Lifestyle Low Risk: >/= 1,500 kcal/week. Sedentary Lifestyle Moderate Risk: 700-1,499 kcal/week. Sedentary Lifestyle High Risk: < 700 kcal/week - For Depression Depression Risk Guidelines: Depression Low Risk: Not clinically depressed. Depression Moderate Risk: Mildly depressed. 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 What do you see as the benefits of succesfully completing the program? In other words, what do you hope to get out of participating in the program?: guess be strengthen the heart, making more efficient. Are there issues you are dealing with that will interfere with completing the program?: none Do you have a spouse or signficant other, family or friends who will help support you to complete the program?: yes, excellent. 03/13/18 0824 <Electronically signed by Ulysses Vasques CRT, RCP, BS> Date Ulysses Vasques CRT, RCP, BS Outcome assessment reviewed. Exercise plan approved as documented. Treatment plan and goals support patient needs/abilities. Continue with current plan. I certify the patient demonstrates improvement and remains willing and capable of participation. the patient continues to benefit from cardiac rehab services/training. The patient may continue at current intensity, endurance and modality and progress per protocol. 03/13/18 1045 <Electronically signed by Balwinder Chino MD> Cosigner Signature: Date Balwinder Chino MD CC: Signed OFFICE VISIT REPORT Observed: 03/12/2018 Status: F Source: [place] 12:[address] [place] [address] OFFICE VISIT Date of Service: 03/09/18 MR#: [id number] Acct: [id number] Patient: NIYA MCKEON Rep #: [id number] : 1955 Provider: Balwinder Chino MD Age/Sex: 62/M [place] [facility] Status: Signed Intake Intake Visit Reasons: 1 WK EKG POST DCCV Chief Complaint: Routine f/u Allergies No Known Allergies Allergy (Verified 02/16/18 08:22) Medications metoprolol succinate ER 25 mg tablet,extended release 24 hr 25 mg PO DAILY #30 tab.er.24h 01/23/18 [Rx Confirmed 03/01/18] levothyroxine 125 mcg capsule 125 mcg PO QDAY #30 cap 01/29/18 [Rx Confirmed 03/01/18] Omeprazole [Prilosec] 20 mg PO DAILY 02/01/18 [History Confirmed 03/01/18] Rivaroxaban [Xarelto] 20 mg PO DAILY #30 tab 02/02/18 [Rx Confirmed 03/01/18] aspirin 81 mg tablet,delayed release 81 mg PO QDAY 02/16/18 [History Confirmed 03/01/18] awkojbswwmw-gsu-bzwuwigcr-hrb 149-hyalur 500 mg-500 mg-66.7 mg tablet tab PO 02/16/18 [History Confirmed 02/16/18] losartan 25 mg tablet 25 mg [...] post cardioversion. Patient states he feels good. Patient's blood pressure was 118/72. Per Pete Angela, patient is to continue current course of treatment and keep followup appt as scheduled. Patient is to contact the office if any problems prior to next appt. Patient notified and verbalized understanding. 03/12/18 1257 <Electronically signed by Balwinder Chino MD> Date Balwinder Chino MD Cosigner Signature: Date (if applicable) CC: 12 LEAD EKG PERFORMED Observed: 03/09/2018 Status: F [place] [facility] [place] [facility] [address] [place] [address] 12 Lead EKG performed by LB 03/09/18 1541 MR#: [id number] Acct: [id number] Name: NIYA MCKEON Rep #: [id number] : 1955 62 From: Balwindre Chino MD Attending Dr: Balwinder Chino MD Status: DEP AMB Ordering Dr: Balwinder Chino MD Date: 03/09/18 [place] [facility] M C Admitted: BMS/12 Lead EKG performed by [facility] ECG Report Interpretation Sinus Bradycardia WITHIN NORMAL LIMITSElectronically signed on 06/22/2018 at 15:20 by Balwinder Chino Software Version [id number] 06/22/18 1526 Date Balwinder Chino MD CC: Steff Subramanian NP Date Dictated: 03/09/181540 Date Transcribed: 03/09/181540 Utility Division Project Manager: Signed OPERATIVE REPORT Observed: 03/03/2018 Status: F Source: [place] 5:30 AM [facility] Medical Records Department [address] [place] [id number] Operative Report 03/02/18 1325 MR#: [id number] Acct: [id number] Name: NIYA MCKEON Rep #: [id number] : 1955 62 From: Amilcar Jane MD PCP: Steff Subramanian NP Status: REG [facility] [place] Location: [facility] Problem List (1) Atrial enlargement, right Status: Chronic Comment: Per echo 01/26/18 (2) Atrial fibrillation Status: Chronic (3) GERD (gastroesophageal reflux disease) Status: Chronic (4) Nonischemic cardiomyopathy Status: Chronic Comment: EF 35% per echo 01/26/18 Operative Report Date of Procedure: 03/02/18 - Conscious sedation CONSCIOUS SEDATION REPORT BRIEF HISTORY OF PRESENT ILLNESS: The patient is a 62-year-old male who presented to [facility] for an elective outpatient cardioversion due [...] III CHEST: S1, S2 irregularly irregular. No murmurs, rubs or gallops were noted. LUNGS: Clear to auscultation bilaterally without appreciable wheezes, rales or rhonchi. ABDOMEN: Soft, nontender, nondistended. Positive bowel sounds. EXTREMITIES: There is no clubbing, cyanosis or edema. ASA [...] Visit 9xxxx: Other Procedure See Report - [id number] -8 minutes of conscious sedation 03/03/18 0530 <Electronically signed by Amilcar Jane MD> Date Amilcar Jane MD CC: Steff Subramanian NP; Amilcar Jane MD; Balwinder Chino MD Signed OPERATIVE REPORT Observed: 03/02/2018 Status: F Source: [place] 12:46 PM [facility] Medical Records Department [address] [place] [address] Operative Report 03/02/18 1243 MR#: [id number] Acct: [id number] Name: FRANKO,NIYA Juan J Rep #: [id number] : 1955 62 From: Balwinder Chino MD PCP: Steff Subramanian NP Status: REG [facility] Y Location: [facility] Problem List (1) Chest pain Status: Acute (2) Atherosclerotic heart disease of [place] coronary artery without angina pectoris Status: Chronic Comment: Nonobstructive coronary arteries (<30% stenosis in LAD, CX, and RCA: left main normal) per [facility] 02/02/[address] Chino @ [facility] (3) Atrial fibrillation Status: Chronic Operative Report Date of Procedure: 03/02/18 DC cardioversion report: Patient is a 62-year-old gentleman who presented initially with LV dysfunction, nonischemic cardiomyopathy after left heart catheterization performed by myself, showed nonobstructive coronary artery disease and an EF around 35-40%. He was also found to be in atrial flutter of unknown duration. Patient apparently had a DC cardioversion which was not successful, and was started on amiodarone in addition to anticoagulation therapy. Once adequate loading with amiodarone was completed, he was heard back for DC cardioversion. The risks/benefits of the procedure were thoroughly explained to the patient and informed consent was obtained. The deferred later pads were placed in the AP position. With the assistance of Dr. Amilcar Jane the patient was given a total of 6 mg of etomidate. Once adequate sedation was obtained, the patient received a single biphasic synchronized 200 J shock which converted from atrial flutter to sinus rhythm/sinus bradycardia. This rhythm remained durable, and the pacer pads were removed. The patient spontaneously awoke, moves all 4 extremities, and tolerated the procedure well. Conclusions successful amiodarone assisted DC cardioversion with a single biphasic 200 J synchronized shock which converted from atrial flutter to normal sinus rhythm/sinus bradycardia. Recommendations: At this point the patient will continue all medical therapy going forward. He will be enrolled in cardiac rehab as well as to be evaluated with a sleep study for what appears to be obstructive sleep apnea which may be contributing to his atrial flutter. Patient tolerated procedure well. No complications. Many thanks to Dr. Amilcar Jane for his assistance. Code Visit 92xxx-93xxx: 59993 Cardioversion electric ext 03/02/18 1246 <Electronically signed by Balwinder Chino MD> Date Balwinder Chino MD CC: Steff Subramanian ARRANGER ASSEMBLER; Balwinder Chino MD Signed CARDIOLOGY VISIT Observed: 02/16/2018 Status: F Source: [place] REPORT 11:59 AM [facility] [address] [place] [address] OFFICE VISIT Date of Service: 02/16/18 MR#: [id number] Acct: [id number] Name: NIYA MCKEON Rep #: [id number] : 1955 Provider: Balwinder Chino MD Age/Sex: 62/M [place] [facility] Status: Signed HPI HPI Chief Complaint: Routine f/u Details: NIYA MCKEON, is a 62 M who presents to the office today for f/u of an irregular heartbeat. [...] of 105 bpm. No evidence of previous myocardial infarction, no acute changes. The patient was completely asymptomatic at that time. He was diagnosed with new onset atrial fibrillation and placed on beta-jose a and Xarelto therapy. He is now here in follow-up. Further history he is a nondiabetic, nonhypertensive, non- smoker, nondrinker, no previous known history of atrial fibrillation. The patient cannot detect that he is in atrial fibrillation and denies any palpitations, lightheadedness dizziness, chest pain or angina. He is taking and tolerating his medicines well. As part of his cardiac workup for atrial fibrillation he underwent an echocardiogram on 01/26/18 which showed an EF of 35%, and severe right ventricular enlargement. He underwent a stress echocardiogram on 02/01/18 which showed an EF improvement from 35-45%, with severe dyspnea. To better evaluate his LV dysfunction he [...] no edema. EKG today demonstrates atrial fibrillation with controlled ventricular response, no previous myocardial infarction. Lipids as of 02/01/18 show an LDL of 109 and HDL 35. Repeat lipid is pending. 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: No Accompanied by: Is patient in [...] [Cordarone] 200 mg PO DAILY #30 tab 02/02/18 [Rx Confirmed 02/16/18] Atorvastatin Calcium [Lipitor] 80 mg PO QHS #30 tab 02/02/18 [Rx Confirmed 02/16/18] Losartan Potassium [Cozaar] 25 mg PO DAILY #30 tab 02/02/18 [Rx Confirmed 02/16/18] Rivaroxaban [Xarelto] 20 mg PO DAILY #30 tab 02/02/18 [Rx Confirmed 02/16/18] aspirin 81 mg tablet,delayed release 81 mg PO QDAY 02/16/18 [History Confirmed 02/16/18] gylglaaghfg-fgt-yaoswxixr-hrb 149-hyalur 500 mg-500 mg-66.7 mg tablet tab PO 02/16/18 [History Confirmed 02/16/18] [facility] Medical History Atherosclerotic heart disease of [place] coronary artery without angina pectoris (Chronic) Atrial enlargement, right (Chronic) Cardiomyopathy (Chronic) GERD (gastroesophageal reflux disease) (Chronic) Atrial fibrillation (Chronic) Surgical History History of left heart catheterization (Chronic 02/02/18) H/O lateral meniscus repair of left knee (Chronic 2004) Family History Mother Hypertension Cancer lung and ovarian Father Cancer Prostate Social History Smoking Status: Never smoker ROS Const Const: Positive for other (Had cath. EF 35%, nonobst. To discuss DCCV); negative for fatigue, weakness, body ache, fever(s), headache(s), chills, frequent falls, night sweats, daytime sleepiness, difficulty sleeping, excessive sweating, weight gain, weight loss, increased appetite, poor appetite or anorexia Eyes Eyes: Negative [...] (only if more strenuous); negative for SOB at rest, SOB orthopnea\SOB lying down, Coughing up blood/hemoptysis, chest congestion, pain on inspiration, snoring, stridor, wheezing, crackles, paroxysmal nocturnal dyspnea or other GI GI: Negative nausea, vomiting, heartburn, constipation, belching, bloating, cramping, vomiting blood/hematemesis, bright, red blood in stools, black,tarry stools, loose stools, Difficulty Swallowing or other : Negative for hematuria, frequent nighttime urination/ nocturia, erectile dysfunction or abnormal vaginal bleeding Musc Musc: Negative for balance problems, muscle aches/ myalgia, muscle weakness or joint pain Skin Skin: Negative redness, non-healing lesions, rash, [...] Atrial fibrillation: Patient has chronic persistent atrial fibrillation and is asymptomatic from a cardiac standpoint. He was placed on amiodarone and Xarelto therapy in anticipation for DC cardioversion in 2 weeks time. He will continue these medications until his cardioversion has been completed. Hopefully we can get him into cardiac rehab afterwards to facilitate LV improvement 2. Cardiomyopathy I42.9 EF 35% per echo 01/26/18 Plan . 2. LV dysfunction: The patient appears to have a combination of hypertension and atrial fibrillation induced LV dysfunction. Hopefully with DC cardioversion this will revert back to normal. We will repeat his echocardiogram after 3 months time and preferably after cardiac rehab. In the meantime we will continue his losartan and metoprolol as well as amiodarone and Zarrella 3. Atherosclerotic heart disease of [place] coronary artery without angina pectoris I25.10 Nonobstructive coronary arteries (<30% stenosis in LAD, CX, and RCA: left main normal) per [facility] 02/02/[address] Chino @ [facility] Plan 3. Coronary artery disease: No exertional anginal symptoms at this time. [...] I48.91 Cardiomyopathy I42.9 Atherosclerotic heart disease of [place] coronary artery without angina pectoris I25.10 Coding Level of Care Code Off vis,est,level 3 Diagnoses Atrial fibrillation I48.91 Cardiomyopathy I42.9 Atherosclerotic heart disease of [place] coronary artery without angina pectoris I25.10 02/16/18 1159 <Electronically signed by Balwinder Chino MD> Date Balwinder Chino MD Cosign Signature: Date (if applicable) CC: Steff Subramanian ARRANGER ASSEMBLER FREE T3 Collected: 02/16/2018 Status: F Source: [place] 10:55 AM [facility] TYPE CODE TESTS RESULT OUT OF RANGE REFERENCE UNITS LAB L501.50205 2.18-3.98 pg/mL Normal FREE T3 2.5 Performed By: #### L501.64521, L501.9520, L501.9910, L506.0400 #### [facility] [address] [place], [address] THYROID STIM HORMONE Collected: 02/16/2018 Status: F Source: [place] (TSH) 10:55 AM [facility] TYPE CODE TESTS RESULT OUT OF RANGE REFERENCE UNITS LAB L501.9520 0.358-3.74 uIU/mL Normal TSH 3.72 Performed By: #### L501.82104, L501.9520, L501.9910, L506.0400 #### [facility] [address] [place], [address] PSA,TOTAL - ANNUAL Collected: 02/16/2018 Status: F Source: [place] SCREEN 10:55 AM [facility] TYPE CODE TESTS RESULT OUT OF RANGE REFERENCE UNITS LAB L501.9910 0.00-4.00 ng/mL Normal PSA,TOT 1.68 SCREEN Result Comment: This test was performed using the TPSA assay method for the [facility] chemistry system. Values obtained with different assay methods cannot be used interchangably. When changing PSA assays in the course of monitoring a patient, additional sequential testing should be carried out to confirm baseline values. Performed By: #### L501.82650, L501.9520, L501.9910, L506.0400 #### [facility] [address] [place], [address] T4 FREE DIRECT Collected: 02/16/2018 Status: F Source: [place] 10:55 AM [facility] TYPE CODE TESTS RESULT OUT OF RANGE REFERENCE UNITS LAB L506.0400 0.76-1.46 ng/dL Normal T4 FREE 1.09 DIRECT Performed By: #### L501.83552, L501.9520, L501.9910, L506.0400 #### [facility] [address] [place], [address] 12 LEAD ELECTROCARDIOGRAM Observed: 02/06/2018 Status: F Source: [place] 3:27 PM [facility] Cardiovascular Services [address] [place] [address] 12 Lead EKG 02/02/18 0511 MR#: [id number] Acct: [id number] Name: NIYA MCKEON Rep #: [id number] : 1955 62 From: Karan Chaudhry MD Attending Dr: Evelyn Valladares Status: DIS [place] Ordering Dr: Balwinder Chino MD Date: 02/02/18 Location: [facility] Sex: M C Admitted: 02/01/18 Test Reason : AM EKG Blood Pressure : / mmHG Vent. Rate : 090 BPM Atrial Rate : 101 BPM P-R Int : 000 ms QRS Dur : 088 ms QT Int : 398 ms P-R-T Axes : 000 044 021 degrees QTc Int : 486 ms Atrial fibrillation Prolonged QT Abnormal ECG Confirmed by RICHA WASSERMAN, KARAN ([id number]), state editor CURLY BAUMANN ([id number]) on 02/06/2018 3:27:20 PM Referred By: DR KRUGER Confirmed By:KARAN CHAUDHRY MD 02/06/18 1527 Date Karan Chaudhry MD CC: Steff Subramanian NP; Balwinder Chino MD; Evelyn Valladares Signed DISCHARGE SUMMARY Observed: 02/02/2018 Status: F Source: [place] 3:14 PM [facility] Medical Records Department [address] [place] [address] Discharge Summary 02/02/18 1439 MR#: [id number] Acct: [id number] Name: NIYA MCKEON Rep #: [id number] : 1955 62 From: Ciro LGUO PCP: Steff Subramanian NP Status: ADM [place] Y Location: [address] <Ciro Jon - Last Filed: 02/02/18 14:58> Discharge Date and Diagnosis - Problem List Patient Problems: Active and Suspected Problems (Last Updated 01/26/18 @ 14:10 by Clotilde Bautista) Chest pain (Acute) Date of Admission: 02/01/18 Date of Discharge: 02/02/18 - Primary Discharge Diagnosis Active and Suspected Problems (Last Updated 01/26/18 @ 14:10 by Clotilde Bautista) Unstable angina Congestive cardiomyopathy Mild CAD per Cath Recent new onset Afib HLD HTN GERD Hypothyroidism - Secondary Discharge Diagnosis Chronic Problems (Last Updated 01/26/18 @ 14:10 by Clotilde Bautista) Atrial enlargement, right (Chronic) Per echo 01/26/18 Cardiomyopathy (Chronic) EF 35% per echo 01/26/18 GERD (gastroesophageal reflux disease) (Chronic) Atrial fibrillation (Chronic) Hospital Course and Treatment Imaging Results: RAD/Chest 1 View (Portable) IMPRESSION: No acute cardiopulmonary disease or interval change. Stress Echo: Interpretation Summary The study was technically difficult. The estimated ejection fraction is 35 %. Normal, adequate, treadmill echocardiogram. Negative for ischemia by echocardiographic criteria. Patient developed subtle diffuse ST segment depression at peak exercise. No anginal symptoms noted. Patient had baseline moderate global LV dysfunction with an EF around 35% which improved to an ejection fraction around 45% at peak exercise. Poor exercise capacity for age. Test terminated due to dyspnea. Rare PVCs noted. Below average exercise capacity for age. Appropriate blood pressure response to exercise. No complications. CONCLUSIONS Non obstructive coronary arteries Cardiomyopathy: Congestive RECOMMENDATIONS D/c plavix, start cozaar 25mg daily, restart xeralto on 02/05/18, start amio 200mg daily, DCCV in 3 weeks. Consults: Cardiology: Kapil Operations: None Procedures: 2-D Echocardiogram, Cardiac catheterization, Stress test Summary of Care Provided: Physical exam on day of discharge: General: Resting comfortably NAD Psych: A/Ox3 normal affect HEENT: PEARRLA AT NC Neck: Supple NT CV: RRR no m/t/r/g/h Resp: CTA Abd: [id number] Soft NT no guarding or rigidity Ext: DP2+= no edema Skin: W/D normal turgor Lymph/Heme: No active bleeding or adenopathy Neuro: CN2-12 intact Hospital course: The patient is a 62 year old M with a hx of recently dx Afib, HTN, GERD, hypothyroidism, who presented to the ER with chest pain. He was having intermittent episodes every 2-3 hours and the episodes would last 5 minutes, and he had become diaphoretic during these episodes. He had recently started receiving care through doctor Chino for Afib and had been started on Xarelto and metoprolol. He was planning to have an outpatient cath in february. Dr. Chino was consulted and he was admitted to the PCU. He underwent a stress test with some ekg changes and severe dyspnea. He then had a heart cath with Dr. Chino which revealed mild CAD. No intervention was provided. He was started on asa, high dose statin, losartan, amiodarone, and will resume xarelto on the . He will have a cardioversion in 3 weeks. His TSH was high and his T4 low normal, so levothyroxine was slightly increased. He will need to follow up with Dr. Chino and his PCP. He was discharged home in stable condition. This patient was seen by Ciro Jon PA-C under the supervision of Doctor Valladares. [] Discharge Diet: Low fat/ Low Cholesterol, 2000 mg Sodium Diet Discharge Activity: Return to Normal Activity Home Medications: Medications to take at Discharge albuterol sulfate HFA 90 mcg/actuation aerosol inhaler 2 puff INHALATION Q6H PRN 01/22/18 metoprolol succinate ER 25 mg tablet,extended release 24 hr 25 mg PO DAILY #30 tab.er.24h 01/23/18 levothyroxine 125 mcg capsule 125 mcg PO QDAY #30 cap 01/29/18 Omeprazole [Prilosec] 20 mg PO DAILY 02/01/18 Amiodarone HCl [Cordarone] 200 mg PO DAILY #30 tab 02/02/18 Aspirin E.C. [Ecotrin] 81 mg PO DAILY@0800 tablet 02/02/18 Atorvastatin Calcium [Lipitor] 80 mg PO QHS #30 tab 02/02/18 Losartan Potassium [Cozaar] 25 mg PO DAILY #30 tab 02/02/18 Rivaroxaban [Xarelto] 20 mg PO DAILY #30 tab 02/02/18 Following Prescrptions Were Given to Patient: Amiodarone HCl [Cordarone] 200 mg PO DAILY #30 tab Atorvastatin Calcium [Lipitor] 80 mg PO QHS #30 tab Losartan Potassium [Cozaar] 25 mg PO DAILY #30 tab Primary Care Physician: Steff Subramanian [Primary Care Provider] - Please follow up with your Primary Care Physician in: 2 weeks Please Follow Up With: Balwinder Chino MD When: 3 weeks Please Follow Up With: Steff Subramanian Disposition: Home Minutes spent on discharge:: 35 Patient Condition:: Stable Medical Necessity - Tobacco Use Smoking Status: Never smoker Tobacco Use: Non-smoker Meaningful Use Info Meaningful Use Diagnoses (Choose all that apply): None applicable <Evelyn Valladares E - Last Filed: 02/02/18 15:14> Discharge Date and Diagnosis - Primary Discharge Diagnosis Active and Suspected Problems (Last Updated 01/26/18 @ 14:10 by Clotilde Bautista) #1 chest pain/EKG changes (Acute) #2 cardiomyopathy, nonischemic. - Secondary Discharge Diagnosis Chronic Problems (Last Updated 01/26/18 @ 14:10 by Clotilde Bautista) Atrial enlargement, right (Chronic) Per echo 01/26/18 Cardiomyopathy (Chronic) EF 35% per echo 01/26/18 GERD (gastroesophageal reflux disease) (Chronic) Atrial fibrillation (Chronic) Hospital Course and Treatment Summary of Care Provided: Hospitalist note: Discharge summary above reviewed and I agree with above discharge plan. This patient was admitted because of chest pain or shortness of breath, found to have subtle EKG changes without evidence of acute ischemic changes. His troponin was negative 3. He underwent stress test that was terminated because of significant shortness of breath. Stress echocardiogram revealed ejection fraction of 35%. He underwent cardiac catheterization that revealed nonobstructive CAD and congestive cardiomyopathy. He had no interventions done. He was treated with aspirin, statins, beta blockers and losartan. Cardiology recommended medical treatment at this time. Patient discharged home in a stable medical condition, discharged on amiodarone which was started this admission, discharged on aspirin, beta blockers, losartan statins, instructed to resume taking Xarelto this coming Monday, February 05, 2018, recommended follow-up with PCP in 2 weeks and plan is to follow-up with cardiology in 3 weeks for cardioversion as outpatient. - Physical Exam General: Alert, Oriented x3, Cooperative, No apparent distress. HEENT: Atraumatic, PERRLA, EOMI. Neck: Supple, No JVD, Negative Carotid Bruits, Trachea Midline, Thyroid Normal. Lungs: Clear to auscultation, Normal air movement, No rhonchi, No wheeze, No rales. Cardiovascular: Regular rate, Regular Rhythm, Normal S1, Normal S2, PMI Normal. Abdomen: Bowel Sounds Present, Soft, Non Tender, Non-Distended, No Hepato-splenomegaly. Extremities: No clubbing, No cyanosis, No edema Skin: No rashes, No breakdown Neurological: Neuro grossly intact Vital Signs are stable. This note was generated with [employer] dictation software. It may contain incorrect words, spelling, and punctuation that were not noted in checking the note before signing. Minutes spent on discharge:: 28 Patient Condition:: Stable Meaningful Use Info Meaningful Use Diagnoses (Choose all that apply): None applicable Code Visit OBSV E AND M: 96119 Observation care discharge 02/02/18 1459 <Electronically signed by Ciro LUGO> Date Ciro LUGO 02/02/18 1514<Electronically signed by Evelyn Valladares MD> Cosigner Signature (if applicable): Date Evelyn Valladares MD CC: Steff Subramanian; Steff Subramanian ARRANGER ASSEMBLER; BRITTNEY Jon; Balwinder Chino MD; Evelyn Valladares Signed 12 LEAD ELECTROCARDIOGRAM Observed: 02/02/2018 Status: F Source: [place] 1:46 PM [facility] Cardiovascular Services [address] [place] [address] 12 Lead EKG 02/01/18 0110 MR#: [id number] Acct: [id number] Name: NIYA MCKEON Rep #: [id number] : 1955 62 From: Karan Chaudhry MD Attending Dr: Evelyn Valladares Status: ADM [place] Ordering Dr: Slick Gould MD Date: 02/01/18 Location: [facility] Sex: M C Admitted: 02/01/18 Test Reason : CP ADMIT Blood Pressure : / mmHG Vent. Rate : 078 BPM Atrial Rate : 080 BPM P-R Int : 000 ms QRS Dur : 086 ms QT Int : 414 ms P-R-T Axes : 000 037 -26 degrees QTc Int : 471 ms Atrial fibrillation Nonspecific T wave abnormality Prolonged QT Abnormal ECG Confirmed by KARAN CHAUDHRY MD ([id number]), state editor CURLY BAUMANN ([id number]) on 02/02/2018 1:46:23 PM Referred By: DR GOULD Confirmed By:KARAN CHAUDHRY MD 02/02/18 1346 Date Karan Chaudhry MD CC: Steff Subramanian ARRANGER ASSEMBLER; Evelyn Valladares; Slick Gould MD Signed 12 LEAD ELECTROCARDIOGRAM Observed: 02/02/2018 Status: F Source: [place] 1:26 PM [facility] [facility] Cardi[facility] Services [address] [place] [id number] 12 Lead EKG 01/31/18 2242 MR#: [id number] Acct: [id number] Name: NIYA MCKEON Rep #: [id number] : 1955 62 From: Karan Chaudhry MD Attending Dr: Evelyn Valladares Status: ADM MAID[place] Ordering Dr: Akilah Dia MD Date: 01/31/18 Location: [facility] Sex: M C Admitted: 02/01/18 Test Reason : CP Blood Pressure : / mmHG Vent. Rate : 090 BPM Atrial Rate : 089 BPM P-R Int : 000 ms QRS Dur : 088 ms QT Int : 382 ms P-R-T Axes : 000 043 007 degrees QTc Int : 467 ms Atrial fibrillation Abnormal ECG Confirmed by KARAN CHAUDHRY MD ([id number]), state editor CURLY BAUMANN ([id number]) on 02/02/2018 1:26:04 PM Referred By: ALFONZO Confirmed By:KARAN CHAUDHRY MD 02/02/18 1326 Date Karan Chaudhry MD CC: Steff Subramanian NP; Akilah Dia MD; Evelyn Valladares Signed DISCHARGE INSTRUCTION Observed: 02/02/2018 Status: F Source: [place] 11:54 AM [facility] Medical Records Department [address] [facility] [place] [address] Instructions for Home/Discharge Instructions 02/02/18 1152 MR#: [id number] Acct: [id number] Name: NIYA MCKEON Rep #: [id number] : 1955 62 From: Ciro LUGO PCP: Charissa BARAHONA, Steff Status: ADM [place] - Discharge Diagnoses Current Active Problems: Current Active and Chronic Problems (Last Updated 01/26/18 @ 14:10 by Clotilde Bautista) Chest pain (Acute) You will use the following diet at home:: Cardiac Your food should be the consistency of: Regular Your liquids should be the consistency of: Regular/Thin Discharge Activity: Return to Normal Activity Allergies/Adverse Reactions: Allergies No Known Allergies Allergy (Verified 01/23/18 10:46) Medications to take at Discharge albuterol sulfate HFA 90 mcg/actuation aerosol inhaler 2 puff INHALATION Q6H PRN 01/22/18 metoprolol succinate ER 25 mg tablet,extended release 24 hr 25 mg PO DAILY #30 tab.er.24h 01/23/18 levothyroxine 125 mcg capsule 125 mcg PO QDAY #30 cap 01/29/18 Omeprazole [Prilosec] 20 mg PO DAILY 02/01/18 Amiodarone HCl [Cordarone] 200 mg PO DAILY #30 tab 02/02/18 Aspirin E.C. [Ecotrin] 81 mg PO DAILY@0800 tablet 02/02/18 Atorvastatin Calcium [Lipitor] 80 mg PO QHS #30 tab 02/02/18 Losartan Potassium [Cozaar] 25 mg PO DAILY #30 tab 02/02/18 Rivaroxaban [Xarelto] 20 mg PO DAILY #30 tab 02/02/18 The following prescriptions were given: Amiodarone HCl [Cordarone] 200 mg PO DAILY #30 tab Atorvastatin Calcium [Lipitor] 80 mg PO QHS #30 tab Losartan Potassium [Cozaar] 25 mg PO DAILY #30 tab Primary Care Physician: Steff Subramanian [Primary Care Provider] - Please follow up with your Primary Care Physician in: 2 weeks Test Results: Test results from this visit will be discussed in further detail at your follow-up appointment, if applicable. Please Follow Up With: Balwinder Chino MD - cardioversion When: 3 weeks Proposed Discharge Date: 02/02/18 02/02/18 1154 <Electronically signed by Ciro LUGO> Date Ciro LUGO CC: Steff Subramanian ARRANGER ASSEMBLER; Balwinder Chino MD PROTHROMBIN TIME W/INR Collected: 02/02/2018 Status: F Source: [place] 5:18 AM [facility] TYPE CODE TESTS RESULT OUT OF RANGE REFERENCE UNITS LAB L300.4150 11.7-14.9 SECONDS High PROTIME 15.0 LAB L300.4200 Normal INR 1.2 Performed By: #### L300.3900, L300.4310 #### [facility] [address] [place], [place], [address] PARTIAL THROMBOPLAST Collected: 02/02/2018 Status: F Source: [place] TIME 5:18 AM [facility] TYPE CODE TESTS RESULT OUT OF RANGE REFERENCE UNITS LAB L300.4310 24.1-36.2 Seconds Normal PTT 31.5 Performed By: #### L300.3900, L300.4310 #### [facility] [address] [place], [address] BASIC METABOLIC Collected: 02/02/2018 Status: F Source: [place] PROFILE (BMP) 5:18 AM [facility] TYPE CODE TESTS RESULT OUT OF RANGE REFERENCE UNITS LAB L501.0100 74-106 mg/dL Normal GLU 91 Result Comment: Please note revised GLUCOSE reference range effective 2017. LAB L501.1000 7-18 mg/dL Normal BUN 18 LAB L501.1100 0.70-1.30 mg/dL Normal CREAT,SERUM 1.19 Result Comment: The validity of the calculated GFR AND GFRAA in patients over 70 years has not been determined. Clinical correlation is essential. LAB L501.1110 >60 mL/min Normal EST GFR 66 Result Comment: Non- GFR Calc LAB L501.1115 >60 mL/min Normal EST GFR - AA 80 Result Comment: GFR Calc LAB L501.1255 ml/min Normal Estimated CRCL 72.46 LAB L501.1300 10-20 RATIO Normal BUN/CRE 15.1 LAB L501.2200 8.5-10 mg/dL Normal .1 CA 8.9 LAB L501.5300 136-14 mmol/L Normal 5 NA 141 LAB L501.5600 3.5-5. mmol/L Normal 1 K 4.3 LAB L501.5900 98-107 mmol/L High CL 110 LAB L501.6100 21.0-3 mmol/L Normal 2.0 CO2 24.0 LAB L501.6200 5-15 Normal GAP 7 Performed By: #### L500.2500 #### [facility] [address] [place], [place], [address] CBC W/DIFF, AUTOMATED Collected: 02/02/2018 Status: F Source: [place] 5:18 AM [facility] TYPE CODE TESTS RESULT OUT OF RANGE REFERENCE UNITS LAB L100.1000 4.4-11.0 K/mm3 Normal WBC 8.3 LAB L100.1200 4.6-6.2 M/mm3 Normal RBC 5.82 LAB L100.1300 13.0-16.5 g/dl High HGB 16.8 LAB L100.1400 40-54 % Normal HCT 47.8 LAB L100.1500 80-94 fL Normal MCV 82.1 LAB L100.1600 27.0-32.0 pg Normal MCH 28.9 LAB L100.1700 32-36 g/gl Normal MCHC 35.1 LAB L100.1810 11.6-14.6 % Normal RDW CV 14.4 LAB L100.1820 35.1-43.9 fl Normal RDW SD 43.3 LAB L100.1900 150-450 K/mm3 Normal PLT 177 LAB L100.2000 6.2-12.0 fl Normal MPV 9.7 LAB L100.2100 47-70 % Normal NEUT% 59.8 LAB L100.2200 19-41 % Normal LY% 27.3 LAB L100.2300 0-10 % Normal MONO% 8.3 LAB L100.2400 0-5 % Normal EO% 3.7 LAB L100.2500 0-1 % Normal BASO% 0.5 LAB L100.2550 0.0-0.9 % Normal IM GRAN % 0.400 Result Comment: IG% - Immature Granulocytes (promyelocytes, myelocytes and metamyelocytes) > 1% indicates that a LEFT SHIFT is Present. LAB L100.2620 2.0-7.7 X10 3/uL Normal Absolute Neut 4.9 LAB L100.2720 0.83-4.51 X10 3/ul Normal Absolute Lymph 2.26 Performed By: #### L100.0100 #### [facility] [address] [facility] [place], [address] CONSULTATION Observed: 02/01/2018 Status: F Source: [place] 10:43 AM [facility] Medical Records Department [address] [place] [address] Consultation 02/01/18 1034 MR#: [id number] Acct: [id number] Name: NIYA MCKEON Rep #: [id number] : 1955 62 From: Balwinder Chino MD PCP: Steff Subramanian NP Status: ADM [place] Y Location: [place] [address] Problem List (1) Chest pain Status: Acute (2) Cardiomyopathy Status: Chronic Comment: EF 35% per echo 01/26/18 (3) Atrial fibrillation Status: Chronic Reason for Consult Date of Consultation: 02/01/18 Reason for Consultation: Chest pain, atrial fibrillation, History of Present Illness: The patient is a 62 year old M nondiabetic, non-smoker, who I recently saw in the office for evaluation of new onset atrial fibrillation and LV dysfunction. Several weeks ago the patient developed a fever and cough and sought medical attention at his PCPs office. He had a follow-up evaluation in a now clinic, which discovered irregular heartbeat. Patient was found to be in atrial fibrillation was placed on Xarelto therapy as well as metoprolol. He underwent a 2D echo with Doppler which demonstrated global LV dysfunction of around 35% and he was referred to our office. 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 Patient states his chest pain lasted on and off for several hours, culminating in significant diaphoresis last evening. Unfortunately he continued to take his Xarelto at 6 PM last evening. When his symptoms did not improve he came to the emergency room yesterday and described his chest pain is tightening in the mid sternum and extending to his left side of his chest. Patient was ruled out for myocardial infarction underwent a treadmill echocardiogram this morning which showed baseline global LV dysfunction, mild improvement of LV function at peak exercise, no chest pain, stop for dyspnea on exertion but had abnormal EKG changes. Patient had poor exercise capacity for age. Patient has been compliant with his medications. He denies any additional fevers, chills, cough or shortness of breath. [] Past Medical History Allergies/Adverse Reactions: Allergies No Known Allergies Allergy (Verified 01/23/18 10:46) Home Medications: Ambulatory Orders Medication Instructions Recorded Past Medical History (Chronic Problems): Chronic Problems (Last Updated 01/26/18 @ 14:10 by Clotilde Bautista) Atrial enlargement, right (Chronic) Per echo 01/26/18 Cardiomyopathy (Chronic) EF 35% per echo 01/26/18 GERD (gastroesophageal reflux disease) (Chronic) Atrial fibrillation (Chronic) Surgical History: no surgical history Lives: Spouse/ Significant Other Smoking Status: Never smoker Tobacco Use: Non-smoker Alcohol: None Drugs: None Review of Systems - Review of Systems General: Denies: Fever, Night Sweats, Fatigue Cardiovascular: Reports: Chest Discomfort, Chest Discomfort with Exertion, Chest Pressure, Chest Tightness, Shortness of Breath, Shortness of Breath with Exertion. Denies: Orthopnea, PND, Peripheral Edema, Palpitations, Lightheadedness, Dizziness, Near Syncope, Syncope Respiratory: Denies: Cough, Sputum Production, Hemoptysis Gastrointestinal: Denies: Hematemesis, Hematochezia, Melena Genitourinary: Denies: Dysuria, Hematuria Skin: Denies: Rash Subjectve: Patient sitting in a chair, no acute distress. Telemetry showed atrial fibrillation with controlled ventricular response. EKG shows atrial fibrillation with controlled ventricular response, no acute changes. Objective: Vital Signs Temp Pulse Resp BP Pulse Ox 97.6 F L 76 18 121/94 H 96 02/01/18 06:03 02/01/18 07:06 02/01/18 06:03 02/01/18 06:03 02/01/18 06:03 Oxygen Delivery Method Room Air Weight: 256 lb 6.362 oz Body Mass Index (BMI) 34.0 General: Awake, Alert, Oriented x 3 HEENT: PERRL, EOMI, Sclera Non Icteric Neck: Supple, Good ROM, No Lymph Node Enlargement Lungs: Clear to auscultation Cardiovascular: Irregular Rhythm, Normal S1, Normal S2, No Murmurs, No Rubs, No Gallops Vascular: No Carotid Bruits, Normal Femoral Pulses, Normal Radial Pulses, Normal Dorsalis Pedal Pulse, Normal Posterior Tibial Pulses Abdomen: Bowel Sounds Present, Soft, Non Tender, No HSM, No Organomegaly Extremities: No Cyanosis, No Clubbing, No edema Neurological: No Focal Motor or Sensory Deficit 02/01/18 02:15: Troponin I < 0.015 02/01/18 05:08: WBC 8.1, RBC 5.68, Hgb 16.4, Hct 46.9, MCV 82.6, MCH 28.9, MCHC 35.0, RDW 14.5, RDW Differential 43.7, Plt Count 171, MPV 9.8 02/01/18 05:08: Sodium 143, Potassium 4.4, Chloride 111 H, Carbon Dioxide 24.0, Anion Gap 8, BUN 21 H, Creatinine 1.14, Est GFR (MDRD) Af Amer 84, Est GFR (MDRD) Non-Af 70, BUN/Creatinine Ratio 18.4, Glucose 90, Calcium 9.0 02/01/18 05:08: Troponin I < 0.015 02/01/18 05:08: PT 20.4 H, INR 1.7, APTT 36.8 H Rhythm: EKG: ECHO: Stress Test: Cardiac Cath: PCI: CT Surgery: Holter monitor: EPS: PPM: CXR: Chest CT Scan: Assessment/Plan 1. 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 Patient underwent a walking stress echo this morning and had no chest pain symptoms however stopped due to dyspnea. He only went about 6 minutes before stopping due to dyspnea. Patient did have augmentation of all phillips however his maximum LV ejection fraction was only around 45%. In addition he had diffuse EKG changes consistent with possible ischemia. At this point I would recommend patient undergo a diagnostic coronary angiogram tomorrow morning. He will be loaded with Plavix 300 mg 1 now, followed by Plavix 75 mg a day. In addition we will continue the patient on Toprol as well as baby aspirin. Would also recommend starting Cozaar 25 mg p.o. daily for afterload reduction. The patient has normal coronary arteries she will be deemed an nonischemic cardiomyopathy possibly secondary to his recent viral illness as well as perhaps from his atrial fibrillation. I believe the patient would benefit from an attempted DC cardioversion in 3 weeks time once his Xarelto has been restarted. 2. Hyperlipidemia: Recommend obtaining a fasting lipid profile. 3. Thank you very much for the opportunity to participate in the cardiac care of your patient. Consultation time took place between 8 AM and 8:30 AM. Code Visit Inpatient E AND M: [id number] Init Hosp L2 02/01/18 1043 <Electronically signed by Balwinder Chino MD> Date Balwinder Chino MD Cosigner Signature (if applicable): Date CC: Steff Subramanian ARRANGER ASSEMBLER; Balwinder Chino MD Signed STRESS TEST ECHO W/O Observed: 02/01/2018 Status: F Source: [place] CONTRAST 10:12 AM [facility] Cardiovascular Services [address] [place], [place] [address] [address] Stress Test Echo w/o Contrast MR#: [id number] Acct: [id number] Name: NIYA MCKEON Rep #: [id number] : 1955 62 From: Balwinder Chino MD Primary Care: Steff Subramanian NP Status: ADM [place] Ordering Dr: Balwinder Chino MD Sex: M C Reason For Study: Chest Pain Stress Results Protocol: Amilcar Protocol Maximum Predicted HR: 160 bpm Target HR: 136 bpm% Max imum Predicted HR: 110 % DurationHeart Rate Stage (mm:ss) (bpm) BPCom ment Baseline 90 116/82 No Chest Pain Amilcar Protocol Stage I 3:00 15 7 134/76No Chest Pain; Mild Dyspnea Amilcar Protocol Stage II 3:00 17 6 152/74No Chest Pain; Moderate Dyspnea Recovery 104 122/8 4No Chest Pain Stress Duration: 6:00 mm:ss Maximum Stress HR: 176 bpmM ETS: 7 Baseline Echocardiogram Findings The estimated ejection fraction is 35 %. Stress Echo Wall motion Data Resting WMIntermediate WMStress WM Resting Wall Motion Wall Motion Stress Moderate global LV dysfunction. All segments contracted normally. EKG Data Atrial fibrillation wth CVR. The patient exercised according to the regular Amilcar protocol for a total duration of 6:00. The maximum heart rate attained was 176 beats per minute. This was 110% of maximum predicted heart rate. The patient exercised into stage 2 of the Amilcar protocol. At peak exercise, upsloping ST changes only were noted, which did not meet the criteria for ischemia. No clinical angina was noted. Interpretation Summary The study was technically difficult. The estimated ejection fraction is 35 %. Normal, adequate, treadmill echocardiogram. Negative for ischemia by echocardiographic criteria. Patient developed subtle diffuse ST segment depression at peak exercise. No anginal symptoms noted. Patient had baseline moderate global LV dysfunction with an EF around 35% which improved to an ejection fraction around 45% at peak exercise. Poor exercise capacity for age. Test terminated due to dyspnea. Rare PVCs noted. Below average exercise capacity for age. Appropriate blood pressure response to exercise. No complications. Ordering Physician: Balwinder Chino Referring Physician: Balwinder Chino Performed By: Kortney Mendenhall, KYLEE, RVT 02/01/18 1012 Date Balwinder Chino MD CC: Steff Subramanian NP; Balwinder Chino MD; Evelyn Valladares Date Dictated: 02/01/18923 Date Transcribed: 02/01/18 1012 Utility Division Project Manager: Signed OFFICE VISIT REPORT Observed: 02/01/2018 Status: F Source: [place] 8:58 AM [address] [place] [address] OFFICE VISIT Date of Service: 01/29/18 MR#: [id number] Acct: [id number] Patient: NIYA MCKEON Rep #: [id number] : 1955 Provider: Balwinder Chino MD Age/Sex: 62/M [place] [facility] [place] Signed Intake Intake Visit Reasons: cath teaching / Clotilde to do Chief Complaint: Irregular heart rate Allergies No Known Allergies Allergy (Verified 01/23/18 10:46) Medications albuterol sulfate HFA 90 mcg/actuation aerosol inhaler 2 puff INHALATION Q6H PRN 01/22/18 [History Confirmed 01/22/18] metoprolol succinate ER 25 mg tablet,extended release 24 hr 25 mg PO DAILY #30 tab.er.24h 01/23/18 [Rx Confirmed 01/23/18] rivaroxaban 20 mg tablet 20 mg PO DAILY #30 tab 01/23/18 [Rx Confirmed 01/23/18] aspirin 81 mg tablet,delayed release 81 mg PO .COMPLEX #30 tab 01/26/18 [Rx] clopidogrel 75 mg tablet 75 mg PO .COMPLEX #30 tab 01/26/18 [Rx] levothyroxine 125 mcg capsule 125 mcg PO QDAY #30 cap 01/29/18 [Rx Confirmed 01/29/18] Assessment AND Plan Orders Orders: Medications New: Nursing Note Patient here for heart cath teaching. Instructions reviewed and lab orders given: pt last dose of Xarelto will be February 08 and he will start ASA and Plavix on February 09 for cath on February 14. RX sent to [facility] [place] and pt already picked it up as [place] going [place] of [place] the end of the week. 02/01/18 0858 <Electronically signed by Balwinder Chino MD> Date Balwinder Chino MD Cosigner Signature: Date (if applicable) CC: Clotilde Bautista CBC-COMPLETE BLOOD CNT Collected: 02/01/2018 Status: F Source: [place] NO DIFF 5:08 AM [facility] TYPE CODE TESTS RESULT OUT OF RANGE REFERENCE UNITS LAB L100.1000 4.4-11.0 K/mm3 Normal WBC 8.1 LAB L100.1200 4.6-6.2 M/mm3 Normal RBC 5.68 LAB L100.1300 13.0-16.5 g/dl Normal HGB 16.4 LAB L100.1400 40-54 % Normal HCT 46.9 LAB L100.1500 80-94 fL Normal MCV 82.6 LAB L100.1600 27.0-32.0 pg Normal MCH 28.9 LAB L100.1700 32-36 g/gl Normal MCHC 35.0 LAB L100.1810 11.6-14.6 % Normal RDW CV 14.5 LAB L100.1820 35.1-43.9 fl Normal RDW SD 43.7 LAB L100.1900 150-450 K/mm3 Normal PLT 171 LAB L100.2000 6.2-12.0 fl Normal MPV 9.8 Performed By: #### L100.0500 #### [facility] [address] [place], [address] PROTHROMBIN TIME W/INR Collected: 02/01/2018 Status: F Source: [place] 5:08 AM [facility] TYPE CODE TESTS RESULT OUT OF RANGE REFERENCE UNITS LAB L300.4150 11.7-14.9 SECONDS High PROTIME 20.4 LAB L300.4200 Normal INR 1.7 Performed By: #### L300.3900, L300.4310 #### [facility] [address] [place], [place], [address] PARTIAL THROMBOPLAST Collected: 02/01/2018 Status: F Source: [place] TIME 5:08 AM [facility] TYPE CODE TESTS RESULT OUT OF REFERENCE UNITS RANGE LAB L300.4310 24.1-36.2 Seconds High PTT 36.8 Performed By: #### L300.3900, L300.4310 #### [facility] [address] [place], [address] BASIC METABOLIC Collected: 02/01/2018 Status: F Source: [place] PROFILE (BMP) 5:08 AM [facility] TYPE CODE TESTS RESULT OUT OF RANGE REFERENCE UNITS LAB L501.0100 74-106 mg/dL Normal GLU 90 Result Comment: Please note revised GLUCOSE reference range effective 2017. LAB L501.1000 7-18 mg/dL High BUN 21 LAB L501.1100 0.70-1.30 mg/dL Normal CREAT,SERUM 1.14 Result Comment: The validity of the calculated GFR AND GFRAA in patients over 70 years has not been determined. Clinical correlation is essential. LAB L501.1110 >60 mL/min Normal EST GFR 70 Result Comment: Non- GFR Calc LAB L501.1115 >60 mL/min Normal EST GFR - AA 84 Result Comment: GFR Calc LAB L501.1255 ml/min Normal Estimated CRCL 75.63 LAB L501.1300 10-20 RATIO Normal BUN/CRE 18.4 LAB L501.2200 8.5-10 mg/dL Normal .1 CA 9.0 LAB L501.5300 136-14 mmol/L Normal 5 NA 143 LAB L501.5600 3.5-5. mmol/L Normal 1 K 4.4 LAB L501.5900 98-107 mmol/L High CL 111 LAB L501.6100 21.0-3 mmol/L Normal 2.0 CO2 24.0 LAB L501.6200 5-15 Normal GAP 8 Performed By: #### L500.2500 #### [facility] [address] [place], [address] TROPONIN-I Collected: 02/01/2018 Status: F Source: [place] 5:08 AM [facility] Order Comment: 'TROP' Serial specimen #1, #2 or #3: 3 TYPE CODE TESTS RESULT OUT OF RANGE REFERENCE UNITS LAB L501.4010 <0.045 ng/mL Normal < 0.015 TROPONIN-I Result Comment: TROPONIN-I EXPECTED VALUES <0.045 Negative 0.045 - 0.590 Consistent with Cardiac Damage > OR = 0.600 Critical Value Not every elevated troponin is indicative of [place]. These values should be used with clinical judgement in examining the patient's clinical picture for diagnosis. To establish a diagnosis of [place] versus myocardial injury, there must be a demonstrated rise and/or fall in the troponin values, in addition to ischemic symptoms, EKG changes, new regional wall motion abnormality, and/or angiographical evidence. PLEASE NOTE: REFERENCE RANGES EDITED 17 Performed By: #### L501.4010 #### [facility] [address] [facility] [place], [address] LIPID PROFILE Collected: 02/01/2018 Status: F Source: [place] 5:08 AM [facility] TYPE CODE TESTS RESULT OUT OF RANGE REFERENCE UNITS LAB L501.4900 200 mg/dL Normal CHOL 160 Result Comment: <200 mg/dL Desirable 200-240 mg/dL Borderline >240 mg/dL High Risk LAB L501.5000 mg/dL Normal TRIG 82 Result Comment: The drugs N-Acetylcysteine and Metamizole may falsely depress this assay. Serum Triglycerides Reference Interval Normal <150 mg/dL Borderline high 150 - 199 mg/dL High 200 - 499 mg/dL Very High > or = 500 mg/dL LAB L501.6400 mg/dL Low HDL 35 Result Comment: The drugs N-Acetylcysteine and Metamizole may falsely depress this assay. Reference Range HDL <40 mg/dL Low HDL Cholesterol HDL >or= 60 mg/dL High HDL Cholesterol LAB L501.6500 0-130 mg/dL Normal LDL 109 LAB L501.6600 5-40 mg/dL Normal VLDL 16 Performed By: #### L500.4100 #### [facility] [address] [place], [address] HISTORY AND PHYSICAL Observed: 02/01/2018 Status: F Source: [place] EXAM 5:05 AM [facility] Medical Records Department [address] [place] [address] History and Physical 01/31/18 2344 MR#: [id number] Acct: [id number] Name: NIYA MCKEON Rep #: [id number] : 1955 62 From: Slick Gould MD PCP: Steff Subramanian NP Status: ADM [place] Y Location: [place] [address] Problem List (1) Chest pain Status: Acute (2) Atrial fibrillation Status: Chronic History of Present Illness Date of Admission: 02/01/18 Chief Complaint: Chest pain 1 day. The patient is a 62 year old M with a significant history of atrial fibrillation, heart failure with ejection fraction 35%; hypothyroidism who presented to the emergency department because of episodic chest pain of one-day duration. Every 2-3 hours he gets chest pain that last for 5 minutes. His symptoms occurs both at rest and with exertion. His chest pain is nonradiating. Associated with his symptoms is diaphoresis. He described his chest pain as a tightening at this mid sternum extending to the left side of his chest. Patient follows up with Dr. Chino in regards to his atrial fibrillation and was scheduled to have a heart cath in February of this year. Also patient reports that he was started on Synthroid for hypothyroidism. He took the first dose of the Synthroid earlier in the day before his symptoms started. At emergency department he was given 4 doses of baby aspirin. Past Medical History Past Medical History (Chronic Problems): Chronic Problems (Last Updated 01/26/18 @ 14:10 by Clotilde Bautista) Atrial enlargement, right (Chronic) Per echo 01/26/18 Cardiomyopathy (Chronic) EF 35% per echo 01/26/18 GERD (gastroesophageal reflux disease) (Chronic) Atrial fibrillation (Chronic) Medical History: Medical History (Last Updated 01/26/18 @ 14:10 by Clotilde Bautista) Atrial enlargement, right (Chronic) I51.7 Per echo 01/26/18 Cardiomyopathy (Chronic) I42.9 EF 35% per echo 01/26/18 GERD (gastroesophageal reflux disease) (Chronic) K21.9 Atrial fibrillation (Acute) I48.91 Allergies No Known Allergies Allergy (Verified 01/23/18 10:46) Home Medications: Ambulatory Orders Medication Instructions Recorded Surgical History: Surgical History (Last Reviewed 02/01/18 @ 04:44 by Slick Gould MD) H/O lateral meniscus repair of left knee Onset Date: [address] Odom, [facility] Surgical History: no surgical history Lives: Spouse/ Significant Other Smoking Status: Never smoker Alcohol: None Drugs: None Review of Systems Constitutional: Denies: Chills, Fever, Weight Change Eyes: Denies: Blurred vision, Pain HEENT: Denies: Head Aches, Sinus Congestion, Sinus Drainage Cardiovascular: Reports: Chest Pain Respiratory: Denies: Cough, Shortness of breath at rest, Sputum production Gastrointestinal: Denies: Abdominal Pain, Nausea, Vomiting Genitourinary: Denies: Dysuria Musculoskeletal: Denies: Joint Pain, Joint Tenderness Skin: Denies: Rash, Wounds Neurological: Denies: Numbness, Tingling, Focal weakness Psychiatric: Denies: Anxiety, Depression, Homicidal Ideations, Suicidal Ideations Hematologic/ Lymphatic: Denies: Easy Bruising, Easy Bleeding VTE Information - Inpt Only VTE Present on Admission: No VTE Mechan Device Prophylaxis: None VTE Pharm Prophylaxis ordered?: No Reason prophylaxis not ordered:: Medical Contraindication Patient Problems: Active and Suspected Problems (Last Updated 01/26/18 @ 14:10 by Clotilde Bautista) Chest pain (Acute) - Physical Exam General: Alert, Oriented x3, Cooperative HEENT: Atraumatic, PERRLA, EOMI, Normocephalic Neck: Supple, No JVD, Negative Carotid Bruits Lungs: Clear to auscultation, Normal air movement Cardiovascular: Irregular Rate, - - Irregularly regular rhythm. Abdomen: Bowel Sounds Present, Soft, Non Tender Extremities: No edema, Capillary Refill Less than 3 Seconds Skin: No rashes, No breakdown Musculoskeletal: No Tenderness to Palpation of Joints or Extremities Neurological: Cranial nerves II-XII grossly intact Psych/Mental Status: Normal Affect, Appropriate Vital Signs Temp Pulse Resp BP Pulse Ox 97.7 F L 72 16 117/82 H 98 01/31/18 22:34 01/31/18 22:34 01/31/18 22:34 01/31/18 22:34 01/31/18 22:34 Oxygen Delivery Method Room Air Weight: 118.9 kg Body Mass Index (BMI) 34.5 Laboratory Tests Past 24 Hrs WBC 10.1 RBC 5.69 Hgb 16.1 Hct 47.6 MCV 83.7 MCH 28.3 MCHC 33.8 RDW 14.3 RDW Differential 43.6 Assessment/Plan All Active Problems (Last Updated 01/26/18 @ 14:10 by Clotilde Bautista) Chest pain (Acute) The patient is a 62 year old M with a significant history of atrial fibrillation, heart failure with ejection fraction 35%; hypothyroidism who presented to the emergency department because of episodic chest pain of one-day duration. Chest pain Because of his associated symptoms of diaphoresis and heart failure it is likely that his chest pain is cardiac in origin. However since his symptoms started after the first dose of Synthroid it could also be due to his Synthroid. Admit to a monitored bed on PCU ASA 81 mg p.o. 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 Reportedly he took his Xarelto a few hours before presentation and the next dose of Xarelto should be due around 8:30 PM of 02/02/2018. In any case we will hold Xarelto at this time as we await cardiology to see patient. Atrial fibrillation Heart rate is controlled at this time. Metoprolol continued Xarelto was taken in less than 24 hours. Hypothyroidism Synthroid continued. Heart failure Metoprolol continued Patient is not on RUBA inhibitor at this time. Consider discussion of RUBA inhibitor with patient. DVT prophylaxis Xarelto was taken in less than 24 hours. Prophylaxis not indicated. 02/01/18 0505 <Electronically signed by Slick Gould MD> Date Slick Gould MD Cosigner Signature: Date (if applicable) CC: Steff Subramanian NP; Slick Gould MD Signed TROPONIN-I Collected: 02/01/2018 Status: F Source: [place] 2:15 AM [facility] Order Comment: 'TROP' Serial specimen #1, #2 or #3: 2 TYPE CODE TESTS RESULT OUT OF RANGE REFERENCE UNITS LAB L501.4010 <0.045 ng/mL Normal < 0.015 TROPONIN-I Result Comment: TROPONIN-I EXPECTED VALUES <0.045 Negative 0.045 - 0.590 Consistent with Cardiac Damage > OR = 0.600 Critical Value Not every elevated troponin is indicative of [place]. These values should be used with clinical judgement in examining the patient's clinical picture for diagnosis. To establish a diagnosis of [place] versus myocardial injury, there must be a demonstrated rise and/or fall in the troponin values, in addition to ischemic symptoms, EKG changes, new regional wall motion abnormality, and/or angiographical evidence. PLEASE NOTE: REFERENCE RANGES EDITED 17 Performed By: #### L501.4010 #### [facility] [address] [place] [address] [place], [address] EMERGENCY DEPARTMENT Observed: 01/31/2018 Status: F Source: [place] SUMMARY 11:56 PM [facility] Medical Records Department [address] [place] [address] [place] [address] Emergency Department Summary 01/31/18 2249 MR#: [id number] Acct: [id number] Name: NIYA MCKEON Rep #: [id number] : 1955 62 From: Akilah Dia MD PCP: Steff Subramanian NP Status: REG ER - ER Visit [...] of breath. He was recently diagnosed with atrial fibrillation and has seen Dr. Chino. He is scheduled for heart cath on February 14. He is currently on Xarelto. He has no known coronary disease risk factors. He is not a smoker. No PE/DVT risk factors. Physical Examination: Vitals are stable. Patient is afebrile. Alert no acute distress. HEENT exam is unremarkable. Neck is supple. Lungs are clear and equal bilaterally. Heart is regular rate and rhythm. Abdomen is soft nontender nondistended. Extremities are unremarkable. Skin is warm and dry. No focal neurologic deficit. Remainder of exam is unremarkable. Emergency Department Course and Treatment: Patient was given aspirin on arrival. EKG shows A. fib rate of 90. Chest x-ray shows no acute process. CBC unremarkable. Chemistries unremarkable other than creatinine of 1.33. Troponin is negative. On repeat evaluation, patient is pain-free. Will discuss with the hospitalist for admission Disposition: Admission Impression: Chest pain This note was generated with NMRKT dictation software. It may contain incorrect words, spelling, and punctuation that were not noted in review of the chart prior to signing ED Disposition - Plan for ED Patient: Chief Complaint: Chest Pain Referrals: Steff Subramanian [Primary Care Provider] - What to do if you have Problems For any increased pain, shortness of breath, bleeding, nausea or vomiting, chest pain, or any unexpected problems, contact your Primary Care Provider. Call [facility] ([phone]) or report to the closest Emergency Room. Call 911 if necessary. 01/31/18 3165 <Electronically signed by Akilah Dia MD> Date Akilah Dia MD Cosigner Signature (If Indicated): Date CC: Steff Subramanian ARRANGER ASSEMBLER CHEST 1 VIEW Observed: 01/31/2018 Status: F Source: [place] (PORTABLE) 10:48 PM [facility] REPOSITORY [facility] Imaging Services [address] [place] [address] Chest 1 View (Portable) MR#: [id number] Acct: [id number] Name: NIYA MCKEON Rep #: [id number] : 1955 M 62 From: Justus Moran DO PCP: Steff Subramanian NP Status: REG ER Study: Chest 1 View (Portable) Date of Exam: 01/31/18 Exam# [id number] Ordering Dr: Akilah Dia MD STUDY: X-RAY CHEST REASON FOR EXAM: Male, 62 years old. Chest pain. Shortness of breath. TECHNIQUE: Single AP portable view of the chest. COMPARISON: January 11, 2018. FINDINGS: There is a slightly decreased inspiratory effort. There [...] abdomen. RAD/Chest 1 View (Portable) IMPRESSION: No acute cardiopulmonary disease or interval change. Electronically Signed: Justus Moran DO at 23:05 EDT Tel [phone], Service support , CC: Steff Subramanian NP; Akilah Dia MD Utility Division Project Manager: Signed CBC W/DIFF, AUTOMATED Collected: 01/31/2018 Status: F Source: [place] 10:45 PM [facility] TYPE CODE TESTS RESULT OUT OF RANGE REFERENCE UNITS LAB L100.1000 4.4-11.0 K/mm3 Normal WBC 10.1 LAB L100.1200 4.6-6.2 M/mm3 Normal RBC 5.69 LAB L100.1300 13.0-16.5 g/dl Normal HGB 16.1 LAB L100.1400 40-54 % Normal HCT 47.6 LAB L100.1500 80-94 fL Normal MCV 83.7 LAB L100.1600 27.0-32.0 pg Normal MCH 28.3 LAB L100.1700 32-36 g/gl Normal MCHC 33.8 LAB L100.1810 11.6-14.6 % Normal RDW CV 14.3 LAB L100.1820 35.1-43.9 fl Normal RDW SD 43.6 LAB L100.1900 150-450 K/mm3 Normal PLT 154 LAB L100.2000 6.2-12.0 fl Normal MPV 9.7 LAB L100.2100 47-70 % Normal NEUT% 58.3 LAB L100.2200 19-41 % Normal LY% 30.5 LAB L100.2300 0-10 % Normal MONO% 7.8 LAB L100.2400 0-5 % Normal EO% 2.7 LAB L100.2500 0-1 % Normal BASO% 0.4 LAB L100.2550 0.0-0.9 % Normal IM GRAN % 0.300 Result Comment: IG% - Immature Granulocytes (promyelocytes, myelocytes and metamyelocytes) > 1% indicates that a LEFT SHIFT is Present. LAB L100.2620 2.0-7.7 X10 3/uL Normal Absolute Neut 5.9 LAB L100.2720 0.83-4.51 X10 3/ul Normal Absolute Lymph 3.07 Performed By: #### L100.0100 #### [facility] [address] [place], [address] BASIC METABOLIC Collected: 01/31/2018 Status: F Source: [facility] PROFILE ([facility]) 10:45 PM [facility] TYPE CODE TESTS RESULT OUT OF RANGE REFERENCE UNITS LAB L501.0100 74-106 mg/dL Normal GLU 104 Result Comment: Fasting Glucose result from 100 to 125 mg/dL suggests IMPAIRED HOMEOSTASIS per A.D.A. criteria. Please note revised GLUCOSE reference range effective 2017. LAB L501.1000 7-18 mg/dL High BUN 21 LAB L501.1100 0.70-1.30 mg/dL High CREAT,SERUM 1.33 Result Comment: The validity of the calculated GFR AND GFRAA in patients over 70 years has not been determined. Clinical correlation is essential. LAB L501.1110 >60 mL/min Low EST GFR 58 Result Comment: Non- GFR Calc LAB L501.1115 >60 mL/min Normal EST GFR - AA 70 Result Comment: GFR Calc LAB L501.1255 ml/min Normal Estimated CRCL 66.75 LAB L501.1300 10-20 RATIO Normal BUN/CRE 15.8 LAB L501.2200 8.5-10 mg/dL Normal .1 CA 9.0 LAB L501.5300 136-14 mmol/L Normal 5 NA 144 LAB L501.5600 3.5-5. mmol/L Normal 1 K 4.3 LAB L501.5900 98-107 mmol/L High CL 112 LAB L501.6100 21.0-3 mmol/L Normal 2.0 CO2 24.0 LAB L501.6200 5-15 Normal GAP 8 Performed By: #### L500.2500, L501.4010 #### [facility] [address] [facility]. [place], [place], [id number] TROPONIN-I Collected: 01/31/2018 Status: F Source: [place] 10:45 PM [facility] TYPE CODE TESTS RESULT OUT OF RANGE REFERENCE UNITS LAB L501.4010 <0.045 ng/mL Normal < 0.015 TROPONIN-I Result Comment: TROPONIN-I EXPECTED VALUES <0.045 Negative 0.045 - 0.590 Consistent with Cardiac Damage > OR = 0.600 Critical Value Not every elevated troponin is indicative of [place]. These values should be used with clinical judgement in examining the patient's clinical picture for diagnosis. To establish a diagnosis of [place] versus myocardial injury, there must be a demonstrated rise and/or fall in the troponin values, in addition to ischemic symptoms, EKG changes, new regional wall motion abnormality, and/or angiographical evidence. PLEASE NOTE: REFERENCE RANGES EDITED 17 Performed By: #### L500.2500, L501.4010 #### [facility] [address] [facility] [place], [place], [address] CBC-COMPLETE BLOOD CNT Collected: 01/29/2018 Status: F Source: [place] NO DIFF 10:54 AM [facility] TYPE CODE TESTS RESULT OUT OF RANGE REFERENCE UNITS LAB L100.1000 4.4-11.0 K/mm3 Normal WBC 9.6 LAB L100.1200 4.6-6.2 M/mm3 Normal RBC 5.84 LAB L100.1300 13.0-16.5 g/dl High HGB 16.8 LAB L100.1400 40-54 % Normal HCT 47.7 LAB L100.1500 80-94 fL Normal MCV 81.7 LAB L100.1600 27.0-32.0 pg Normal MCH 28.8 LAB L100.1700 32-36 g/gl Normal MCHC 35.2 LAB L100.1810 11.6-14.6 % Normal RDW CV 14.4 LAB L100.1820 35.1-43.9 fl Normal RDW SD 42.5 LAB L100.1900 150-450 K/mm3 Normal PLT 177 LAB L100.2000 6.2-12.0 fl Normal MPV 10.2 Performed By: #### L100.0500 #### [facility] [address] [facility]. [place], [place], [id number] PROTHROMBIN TIME W/INR Collected: 01/29/2018 Status: F Source: [place] 10:54 AM [facility] Order Comment: Comments: For heart cath Comments: For heart cath TYPE CODE TESTS RESULT OUT OF RANGE REFERENCE UNITS LAB L300.4150 11.7-14.9 SECONDS Normal PROTIME 13.5 LAB L300.4200 Normal INR 1.0 Performed By: #### L300.3900, L300.4310, L500.2500 #### [facility] [address] [place], [place], [address] PARTIAL THROMBOPLAST Collected: 01/29/2018 Status: F Source: [place] TIME 10:54 AM [facility] Order Comment: Comments: For heart cath Comments: For heart cath TYPE CODE TESTS RESULT OUT OF RANGE REFERENCE UNITS LAB L300.4310 24.1-36.2 Seconds Normal PTT 29.6 Performed By: #### L300.3900, L300.4310, L500.2500 #### [facility] [address] [place], [address] BASIC METABOLIC Collected: 01/29/2018 Status: F Source: [place] PROFILE (BMP) 10:54 AM [facility] Order Comment: Comments: For heart cath Comments: For heart cath TYPE CODE TESTS RESULT OUT OF RANGE REFERENCE UNITS LAB L501.0100 74-106 mg/dL Normal GLU 79 Result Comment: Please note revised GLUCOSE reference range effective 2017. LAB L501.1000 7-18 mg/dL Normal BUN 18 LAB L501.1100 0.70-1.30 mg/dL Normal CREAT,SERUM 1.08 Result Comment: The validity of the calculated GFR AND GFRAA in patients over 70 years has not been determined. Clinical correlation is essential. LAB L501.1110 >60 mL/min Normal EST GFR 74 Result Comment: Non- GFR Calc LAB L501.1115 >60 mL/min Normal EST GFR - AA 90 Result Comment: GFR Calc LAB L501.1300 10-20 RATIO Normal BUN/CRE 16.7 LAB L501.2200 8.5-10.1 mg/dL CA Normal 9.1 LAB L501.5300 136-145 mmol/L NA Normal 141 LAB L501.5600 3.5-5.1 mmol/L K Normal 4.4 LAB L501.5900 98-107 mmol/L High CL 109 LAB L501.6100 21.0-32.0 mmol/L Normal CO2 22.0 LAB L501.6200 5-15 Normal GAP 10 Performed By: #### L300.3900, L300.4310, L500.2500 #### [facility] [address] [place], [address] CBC-COMPLETE BLOOD CNT Collected: 01/29/2018 Status: F Source: [place] NO DIFF 10:54 AM [facility] TYPE CODE TESTS RESULT OUT OF RANGE REFERENCE UNITS LAB L100.1000 4.4-11.0 K/mm3 Normal WBC 9.6 LAB L100.1200 4.6-6.2 M/mm3 Normal RBC 5.84 LAB L100.1300 13.0-16.5 g/dl High HGB 16.8 LAB L100.1400 40-54 % Normal HCT 47.7 LAB L100.1500 80-94 fL Normal MCV 81.7 LAB L100.1600 27.0-32.0 pg Normal MCH 28.8 LAB L100.1700 32-36 g/gl Normal MCHC 35.2 LAB L100.1810 11.6-14.6 % Normal RDW CV 14.4 LAB L100.1820 35.1-43.9 fl Normal RDW SD 42.5 LAB L100.1900 150-450 K/mm3 Normal PLT 177 LAB L100.2000 6.2-12.0 fl Normal MPV 10.2 Performed By: #### L100.0500 #### [facility] [address] [place], [address] PROTHROMBIN TIME W/INR Collected: 01/29/2018 Status: F Source: [place] 10:54 AM [facility] Order Comment: Comments: For heart cath Comments: For heart cath TYPE CODE TESTS RESULT OUT OF RANGE REFERENCE UNITS LAB L300.4150 11.7-14.9 SECONDS Normal PROTIME 13.5 LAB L300.4200 Normal INR 1.0 Performed By: #### L300.3900 #### [facility] [address] [place], [address] PARTIAL THROMBOPLAST Collected: 01/29/2018 Status: F Source: [place] TIME 10:54 AM [facility] Order Comment: Comments: For heart cath Comments: For heart cath TYPE CODE TESTS RESULT OUT OF RANGE REFERENCE UNITS LAB L300.4310 24.1-36.2 Seconds Normal PTT 29.6 Performed By: #### L300.4310 #### [facility] [address] [place], [address] BASIC METABOLIC Collected: 01/29/2018 Status: F Source: [place] PROFILE (BMP) 10:54 AM [facility] Order Comment: Comments: For heart cath Comments: For heart cath TYPE CODE TESTS RESULT OUT OF RANGE REFERENCE UNITS LAB L501.0100 74-106 mg/dL Normal GLU 79 Result Comment: Please note revised GLUCOSE reference range effective 2017. LAB L501.1000 7-18 mg/dL Normal BUN 18 LAB L501.1100 0.70-1.30 mg/dL Normal CREAT,SERUM 1.08 Result Comment: The validity of the calculated GFR AND GFRAA in patients over 70 years has not been determined. Clinical correlation is essential. LAB L501.1110 >60 mL/min Normal EST GFR 74 Result Comment: Non- GFR Calc LAB L501.1115 >60 mL/min Normal EST GFR - AA 90 Result Comment: GFR Calc LAB L501.1300 10-20 RATIO Normal BUN/CRE 16.7 LAB L501.2200 8.5-10.1 mg/dL CA Normal 9.1 LAB L501.5300 136-145 mmol/L NA Normal 141 LAB L501.5600 3.5-5.1 mmol/L K Normal 4.4 LAB L501.5900 98-107 mmol/L High CL 109 LAB L501.6100 21.0-32.0 mmol/L Normal CO2 22.0 LAB L501.6200 5-15 Normal GAP 10 Performed By: #### L500.2500 #### [facility] [address] [facility] [place], [address] ECHOCARDIOGRAM COMPLETE Observed: 01/26/2018 Status: F Source: [place] 1:39 PM [facility] Cardiovascular Services [address] [place] [address] Echo Complete 01/26/18 0903 MR#: [id number] Acct: [id number] Name: NIYA MCKEON Rep #: [id number] : 1955 62 From: Balwinder Chino MD Attending Dr: Balwinder Chino MD Status: REG CLI Ordering Dr: Balwinder Chino MD Date: 01/26/18 Location: [facility] Sex: M C Admitted: Reason For Study: Afib-Flutter Procedure This was a 2D Doppler, [...] seen. Trivial mitral valve insufficiency. Tricuspid Valve Normal tricuspid valve. Trivial tricuspid valve insufficiency. Unable to estimate RV systolic pressure due to inadequate jet, pulmonary artery pressure probably normal. Aortic Valve Normal aortic valve. Trisinus/trileaflet aortic valve. Pulmonic Valve Normal pulmonic valve. Great Vessels Normal aortic root. Normal arch. Normal inferior vena cava. Inferior vena cava collapse with sniff. Pericardium/Pleural No pericardial effusion. MMode/2D Measurements AND Calculations LVIDd: 5.1 cm IVSd: 1.2 cm Ao root diam: 3.6 cm LVIDs: 4.4 cm LVPWd: 1.3 cm LA dimension: 4.4 cm RVDd: 5.3 cm FS: 13.9 % LAV(MOD-bp): 95.7 ml LVAd ap4: 40.8 cm2 SV(MOD-sp4): 41.3 ml LAV(MOD-bp) Indexed: 40.1 ml/m2 EDV(MOD-sp4): 142.2 ml LAV(MOD-sp2): 83.1 ml EDV(sp4-el): 150.2 ml LAV(MOD-sp4): 87.5 ml LVAs ap4: 32.3 cm2 ESV(MOD-sp4): 100.9 ml ESV(sp4-el): 103.5 ml EF(MOD-sp4): 29.0 % EF(sp4-el): 31.1 % SV(sp4-el): 46.7 ml LA A4 area: 28.3 cm2 RA A4 area: 19.9 cm2 Time Measurements MV dec time: 0.21 sec Doppler Measurements AND Calculations MV E max west: 71.2 cm/sec MV P1/2t max west: 81.2 cm/sec Ao V2 max: 81.4 cm/sec MV P1/2t: 62.8 msec Ao max P.7 mmHg MV dec slope: 378.8 cm/sec2 Ao V2 mean: 57.5 cm/sec MVA(P1/2t): 3.5 cm2 Ao mean P.5 mmHg Ao V2 VTI: 14.3 cm LV V1 max: 62.2 cm/sec PA V2 max: 66.4 cm/sec LV V1 max P.6 mmHg LV V1 mean P.72 mmHg LV V1 mean: 38.7 cm/sec LV V1 VTI: 10.9 cm Interpretation Summary Moderately dilated left ventricle. The estimated ejection fraction is 35 %. There is moderate global hypokinesis of the left ventricle. Severely dilated right ventricle. The left atrium is severely enlarged. Trivial mitral valve insufficiency. Trivial tricuspid valve insufficiency. Unable to estimate RV systolic pressure due to inadequate jet, pulmonary artery pressure probably normal. Pt appears to be in atrial fibrillation. There is no comparison study available. Ordering Physician: Balwinder Chino Referring Physician: Balwinder Chino Performed By: Erasto Jiang RCS 01/26/18 1339 Date Balwinder Chino MD CC: Balwinder Chino MD; Dayan Mehta DO Date Dictated: 01/26/18902 Date Transcribed: 01/26/18 1339 Utility Division Project Manager: Signed LIVER PROFILE Collected: 01/24/2018 Status: F Source: [place] 7:05 AM [facility] TYPE CODE TESTS RESULT OUT OF RANGE REFERENCE UNITS LAB L501.1500 6.4-8.2 g/dL Normal T PROT 7.2 LAB L501.1800 3.2-5.0 g/dL Normal ALB 3.7 LAB L501.1950 2.2-4.2 g/dL Normal GLOB 3.5 LAB L501.4100 15-37 U/L Normal AST 31 LAB L501.4305 45-117 U/L Normal ALK P 76 LAB L501.4405 16-61 U/L Normal ALT 41 LAB L501.4600 0.20-1.00 mg/dL High T BILI 1.60 LAB L501.4700 0.00-0.30 mg/dL Normal D BILI 0.28 Performed By: #### L500.3400, L500.4100, L501.9310, L501.9520 #### [facility] [address] [place], [address] LIPID PROFILE Collected: 01/24/2018 Status: F Source: [place] 7:05 [facility] REPOSITORY TYPE CODE TESTS RESULT OUT OF RANGE REFERENCE UNITS LAB L501.4900 200 mg/dL Normal CHOL 168 Result Comment: <200 mg/dL Desirable 200-240 mg/dL Borderline >240 mg/dL High Risk LAB L501.5000 mg/dL Normal TRIG 92 Result Comment: The drugs N-Acetylcysteine and Metamizole may falsely depress this assay. Serum Triglycerides Reference Interval Normal <150 mg/dL Borderline high 150 - 199 mg/dL High 200 - 499 mg/dL Very High > or = 500 mg/dL LAB L501.6400 mg/dL Low HDL 38 Result Comment: The drugs N-Acetylcysteine and Metamizole may falsely depress this assay. Reference Range HDL <40 mg/dL Low HDL Cholesterol HDL >or= 60 mg/dL High HDL Cholesterol LAB L501.6500 0-130 mg/dL Normal LDL 112 LAB L501.6600 5-40 mg/dL Normal VLDL 18 Performed By: #### L500.3400, L500.4100, L501.9310, L501.9520 #### [facility] [address] [place], [address] T4 TOTAL, THYROXIN Collected: 01/24/2018 Status: F Source: [place] 7:05 AM [facility] TYPE CODE TESTS RESULT OUT OF RANGE REFERENCE UNITS LAB L501.9310 4.5-12.1 ug/dL T4 Normal THYROXIN 8.7 Performed By: #### L500.3400, L500.4100, L501.9310, L501.9520 #### [facility] [address] [place], [address] THYROID STIM HORMONE Collected: 01/24/2018 Status: F Source: [place] (TSH) 7:05 AM [facility] TYPE CODE TESTS RESULT OUT OF RANGE REFERENCE UNITS LAB L501.9520 0.358-3.74 uIU/mL High TSH 7.24 Performed By: #### L500.3400, L500.4100, L501.9310, L501.9520 #### [facility] [address], [address] CARDIOLOGY VISIT Observed: 01/23/2018 Status: F Source: [place] REPORT 11:19 AM [facility] [address] [place] [address] OFFICE VISIT Date of Service: 01/23/18 MR#: [id number] Acct: [id number] Name: NIYA MCKEON Rep #: [id number] : 1955 Provider: Balwinder Chino MD Age/Sex: 62/M [place] [facility] [place] Signed HPI HPI Chief Complaint: Irregular heart rate Details: NIYA MCKEON, is a 62 M who presents to the office today for evaluation of an [...] of 105 bpm. No evidence of previous myocardial infarction, no acute changes. The patient was completely asymptomatic at that time. He was diagnosed with new onset atrial fibrillation and placed on beta-jose a and Xarelto therapy. He is now here in follow-up. Further history he is a nondiabetic, nonhypertensive, non- smoker, nondrinker, no previous known history of atrial [...] no edema. EKG today demonstrates atrial fibrillation with controlled ventricular response, no previous myocardial infarction. Lipids are pending. Intake Vital Signs01/23/18 Height 6 ft 1 in 01/23/18 Weight: 258 lb 01/23/18 Body Mass Index (BMI) 34.0 01/23/18 Blood Pressure 90/60 Intake Visit Reasons: IRREG HEART RATE ([facility]) Allergies No Known Allergies Allergy (Verified 01/23/18 10:46) Medications albuterol sulfate HFA 90 mcg/actuation aerosol inhaler 2 puff INHALATION Q6H PRN 01/22/18 [History Confirmed 01/22/18] metoprolol succinate ER 25 mg tablet,extended release 24 hr 25 mg PO DAILY #30 tab.er.24h 01/23/18 [Rx Confirmed 01/23/18] rivaroxaban 20 mg tablet 20 mg PO DAILY #30 tab 01/23/18 [Rx Confirmed 01/23/18] [facility] Medical History GERD (gastroesophageal reflux disease) (Chronic) Atrial fibrillation (Acute) Surgical History H/O lateral meniscus repair of left knee (Chronic 2004) Family History Mother Hypertension Cancer lung and ovarian Father Cancer Prostate Social History Smoking Status: Never smoker ROS Const Const: Negative for fatigue, weakness, body ache, fever(s), headache(s), chills, frequent falls, night sweats, daytime sleepiness, difficulty sleeping, excessive sweating, weight gain, weight loss, increased appetite, poor appetite, anorexia or other Eyes Eyes: Negative for blind spots, loss of peripheral vision, transient loss of vision, blurry vision, change in vision, double vision, floaters, tunnel vision or other ENT ENT: Negative for headache(s), dizziness, hearing loss, tinnitus, Nosebleed/epistaxis, balance problems, post nasal drip, lip swelling, tongue swelling, bleeding gums, hoarseness, neck pain, dry mouth or other Cardio Chest Pain: No Palpitations: No Edema: Bilateral (very mild lower legs) Muscle aches with walking: None Resp Respiratory: Negative for SOB with activity, SOB at rest, SOB orthopnea\SOB lying down, Coughing up blood/hemoptysis, chest congestion, pain on inspiration, snoring, stridor, wheezing, crackles, paroxysmal nocturnal dyspnea or other GI GI: Negative nausea, vomiting, heartburn, constipation, belching, bloating, cramping, vomiting blood/hematemesis, bright, red blood in stools, black,tarry stools, loose stools, Difficulty Swallowing or other : Negative for hematuria, frequent nighttime urination/ nocturia, erectile dysfunction or abnormal vaginal bleeding Musc Musc: Negative for balance problems, muscle aches/ myalgia, muscle weakness or joint pain Skin Skin: Negative redness, non-healing lesions, rash, [...] controlled ventricular response superimposed on a recent upper respiratory tract infection with the use of albuterol. Unfortunately the patient is unable to sense his arrhythmia, and therefore is at higher risk for CVA. It is unknown how long he has been in atrial fibrillation but it is been at least since 01/11/18 at which time it was detected. At this point I recommend the patient undergo a 2D echo with Doppler to document his LV function, valvular status and pulmonary pressures. In addition I recommended he undergo a treadmill echocardiogram assuming his baseline echo is within normal limits. If his stress test is grossly abnormal for ischemia, he may require a diagnostic coronary angiogram. In the meantime he will continue his metoprolol succinate 25 mg daily as well as his Xarelto for at least 3 weeks time at which time I would recommend DC cardioversion if he is still in atrial fibrillation. [...] prior to saving. Orders Orders: Plan Detail Other Medications Refilled: Follow Up +6M (Kapil) Coding Level of Care Code Off vis,new,level 4 Diagnoses Atrial fibrillation I48.91 Coding Level of Care Code Off vis,new,level 4 Diagnoses Atrial fibrillation I48.91 01/23/18 1119 <Electronically signed by Balwinder Chino MD> Date Balwinder Chino MD Cosigner Signature: Date (if applicable) CC: Florence Barr MD 12 LEAD ELECTROCARDIOGRAM Observed: 01/15/2018 Status: F Source: [place] 2:44 PM [facility] Cardiovascular Services [address] [place] [id number] Lead EKG 01/11/18 1536 MR#: [id number] Acct: [id number] Name: NIYA MCKEON Rep #: [id number] : 1955 62 From: George Mcwilliams MD Attending Dr: Status: DEP ER Ordering Dr: Estiven Condon. Date: 01/11/18 Location: ED Sex: M C Admitted: Test Reason : PALPS Blood Pressure : / mmHG Vent. Rate : 104 BPM Atrial Rate : 163 BPM P-R Int : 000 ms QRS Dur : 096 ms QT Int : 322 ms P-R-T Axes : 000 029 027 degrees QTc Int : 423 ms Atrial fibrillation Abnormal ECG Confirmed by GEORGE MCWILLIAMS MD ([id number]), state editor CURLY BAUMANN ([id number]) on 01/15/2018 2:44:33 PM Referred By: ANDREW/SEBAS Confirmed By:GEORGE MCWILLIAMS MD 01/15/18 1444 Date George Mcwilliams MD CC: Florence Barr MD; ED PHYSICIAN PROVIDER; Rambo Machado MD Signed EMERGENCY DEPARTMENT Observed: 01/11/2018 Status: F Source: [place] SUMMARY 10:57 PM [facility] Medical Records Department [address] [place] [address] Emergency Department Summary 01/11/18 1753 MR#: [id number] Acct: [id number] Name: NIYA MCKEON Rep #: [id number] : 1955 62 From: Rambo Machado MD PCP: Florence Barr MD Status: DEP ER - ER Visit Summary Date of Service: 01/11/18 Chief Complaint: Irregular heart rhythm History of Present Illness: The patient is [...] has no documented history of coronary vascular disease. He denies headache or weakness. He has no history of easy bleeding or bruising. He does not smoke. There is no family history of heart disease. Patient was sent over for further evaluation. EKG in triage demonstrated coarse atrial fibrillation versus atrial flutter with intermittent conduction. Physical Examination: Vital signs reviewed General: Well-nourished, well-developed Head: Normocephalic, atraumatic Eyes: Pupils equal and reactive, extraocular muscles intact Neck, supple, no lymphadenopathy Heart: Regular rate and rhythm Respiratory: No distress, clear bilaterally Abdomen: Soft, nontender, nondistended, no peritoneal signs Back: Nontender Extremities: [...] him on an anticoagulant and a low-dose beta- jose a. Patient is comfortable this plan of care. His contact information was sent to the cardiology office to ensure outpatient follow-up. He is given his first dose here. He will be discharged home. Treatment Plan: [] Disposition: Discharge Impression: 1. New onset atrial fibrillation This note was generated with Delivery Heroation software. It may contain incorrect words, spelling, and punctuation that were not noted in review of the chart prior to signing ED Disposition - Plan for ED Patient: Chief Complaint: Palpitations Instructions: ED Afib Prescriptions: Metoprolol Succinate 25 mg PO DAILY #30 tab.er.24h Rivaroxaban [Xarelto] 20 mg PO DAILY #30 tab Referrals: Balwinder Chino MD [STAFF PHYSICIAN] - 3-5 Days What to do if you have Problems For any increased pain, shortness of breath, bleeding, nausea or vomiting, chest pain, or any unexpected problems, contact your Primary Care Provider. Call [facility] ([phone]) or report to the closest Emergency Room. Call 911 if necessary. 01/11/18 5760 <Electronically signed by Rambo Machado MD> Date Rambo Machado MD Cosigner Signature (If Indicated): Date CC: Florence Barr MD CBC W/DIFF, AUTOMATED Collected: 01/11/2018 Status: F Source: [place] 3:44 PM [facility] TYPE CODE TESTS RESULT OUT OF RANGE REFERENCE UNITS LAB L100.1000 4.4-11.0 K/mm3 Normal WBC 10.6 LAB L100.1200 4.6-6.2 M/mm3 Normal RBC 5.90 LAB L100.1300 13.0-16.5 g/dl High HGB 16.9 LAB L100.1400 40-54 % Normal HCT 48.8 LAB L100.1500 80-94 fL Normal MCV 82.7 LAB L100.1600 27.0-32.0 pg Normal MCH 28.6 LAB L100.1700 32-36 g/gl Normal MCHC 34.6 LAB L100.1810 11.6-14.6 % Normal RDW CV 13.9 LAB L100.1820 35.1-43.9 fl Normal RDW SD 42.1 LAB L100.1900 150-450 K/mm3 Normal PLT 187 LAB L100.2000 6.2-12.0 fl Normal MPV 9.3 LAB L100.2100 47-70 % Normal NEUT% 69.1 LAB L100.2200 19-41 % Normal LY% 21.6 LAB L100.2300 0-10 % Normal MONO% 7.0 LAB L100.2400 0-5 % Normal EO% 1.8 LAB L100.2500 0-1 % Normal BASO% 0.2 LAB L100.2550 0.0-0.9 % Normal IM GRAN % 0.300 Result Comment: IG% - Immature Granulocytes (promyelocytes, myelocytes and metamyelocytes) > 1% indicates that a LEFT SHIFT is Present. LAB L100.2620 2.0-7.7 X10 3/uL Normal Absolute Neut 7.4 LAB L100.2720 0.83-4.51 X10 3/ul Normal Absolute Lymph 2.30 Performed By: #### L100.0100, L500.2500, L501.4010 #### [facility] [address], [address] BASIC METABOLIC Collected: 01/11/2018 Status: F Source: [place] PROFILE (BMP) 3:44 PM [facility] TYPE CODE TESTS RESULT OUT OF RANGE REFERENCE UNITS LAB L501.0100 74-106 mg/dL Normal GLU 105 Result Comment: Fasting Glucose result from 100 to 125 mg/dL suggests IMPAIRED HOMEOSTASIS per A.D.A. criteria. Please note revised GLUCOSE reference range effective 2017. LAB L501.1000 7-18 mg/dL High BUN 22 LAB L501.1100 0.70-1.30 mg/dL Normal CREAT,SERUM 1.27 Result Comment: The validity of the calculated GFR AND GFRAA in patients over 70 years has not been determined. Clinical correlation is essential. LAB L501.1110 >60 mL/min Normal EST GFR 61 Result Comment: Non- GFR Calc LAB L501.1115 >60 mL/min Normal EST GFR - AA 74 Result Comment: GFR Calc LAB L501.1255 ml/min Normal Estimated CRCL 69.90 LAB L501.1300 10-20 RATIO Normal BUN/CRE 17.3 LAB L501.2200 8.5-10 mg/dL Normal .1 CA 9.1 LAB L501.5300 136-14 mmol/L Normal 5 NA 142 LAB L501.5600 3.5-5. mmol/L Normal 1 K 4.2 LAB L501.5900 98-107 mmol/L High CL 113 LAB L501.6100 21.0-3 mmol/L Normal 2.0 CO2 21.0 LAB L501.6200 5-15 Normal GAP 8 Performed By: #### L100.0100, L500.2500, L501.4010 #### [facility] [address] [place], [address] TROPONIN-I Collected: 01/11/2018 Status: F Source: [place] 3:44 PM [facility] TYPE CODE TESTS RESULT OUT OF RANGE REFERENCE UNITS LAB L501.4010 <0.045 ng/mL Normal < 0.015 TROPONIN-I Result Comment: TROPONIN-I EXPECTED VALUES <0.045 Negative 0.045 - 0.590 Consistent with Cardiac Damage > OR = 0.600 Critical Value Not every elevated troponin is indicative of [place]. These values should be used with clinical judgement in examining the patient's clinical picture for diagnosis. To establish a diagnosis of [place] versus myocardial injury, there must be a demonstrated rise and/or fall in the troponin values, in addition to ischemic symptoms, EKG changes, new regional wall motion abnormality, and/or angiographical evidence. PLEASE NOTE: REFERENCE RANGES EDITED 17 Performed By: #### L100.0100, L500.2500, L501.4010 #### [facility] [address] [place], [address] PROTHROMBIN TIME W/INR Collected: 01/11/2018 Status: F Source: [place] 3:44 PM [facility] TYPE CODE TESTS RESULT OUT OF RANGE REFERENCE UNITS LAB L300.4150 11.7-14.9 SECONDS Normal PROTIME 13.5 LAB L300.4200 Normal INR 1.0 Performed By: #### L300.3900 #### [facility] [address] [place], [address] CHEST 1 VIEW Observed: 01/11/2018 Status: F Source: [place] (PORTABLE) 3:36 PM [facility] Imaging Services [address] [facility] [place] [address] Chest 1 View (Portable) MR#: [id number] Acct: [id number] Name: NIYA MCKEON Rep #: [id number] : 1955 M 62 From: Bo Vivas MD PCP: NOT, DEFINED Status: PRE ER Study: Chest 1 View (Portable) Date of Exam: 01/11/18 Exam# [id number] Ordering Dr: Rambo Machado MD STUDY: X-RAY CHEST REASON FOR EXAM: Male, 62 years old. Dyspnea TECHNIQUE: Single PA view of the chest. COMPARISON: Prior study of 01/01/2018 FINDINGS: The lungs are clear and expanded. There is no demonstrated pleural abnormality. Normal size heart. Normal mediastinum and christianne. Normal visualized pulmonary arteries. Normal visualized aortic arch and descending thoracic aorta. There are diffuse degenerative changes of the visualized thoracic spine. Normal visualized ribs, clavicles, and shoulders. There is no demonstrated abnormality of the visualized soft tissue structures of the upper abdomen. RAD/Chest 1 View (Portable) IMPRESSION: Degenerative changes, as described above. No demonstrated acute cardiopulmonary process. Electronically Signed: Bo Vivas MD at 17:35 EDT , Service support , CC: DEFINED NOT; Rambo Machado MD Utility Division Project Manager: Signed CHEST PA AND LATERAL Observed: 01/01/2018 Status: F Source: [place] 2:18 PM [facility] Imaging Services [address] [place] [address] Chest PA and Lateral MR#: [id number] Acct: [id number] Name: NIYA MCKEON Rep #: [id number] : 1955 M 62 From: Lakeisha Arevalo MD PCP: Florenec Barr MD Status: REG CLI Study: Chest PA and Lateral Date of Exam: 01/01/18 Exam# [id number] Ordering Dr: Hodan Lockett ARRANGER ASSEMBLER-C STUDY: X-RAY CHEST REASON FOR EXAM: Male, 62 years old. Cough for one month. TECHNIQUE: Frontal and lateral views of the chest. COMPARISON: None. FINDINGS: The lungs are hyperinflated. There are bilateral prominent interstitial markings. Normal size heart. Normal mediastinum and christianne. Normal visualized pulmonary arteries. Normal visualized aortic arch and descending thoracic aorta. There are diffuse degenerative changes of the visualized thoracic spine. Normal visualized ribs, clavicles, and shoulders. There is no demonstrated abnormality of the visualized soft tissue structures of the upper abdomen. RAD/Chest PA and Lateral IMPRESSION: Hyperinflated lungs may reflect underlying COPD. Prominent interstitial markings, these may be chronic in nature however cannot exclude underlying interstitial edema and/or an infectious process. Electronically Signed: Lakeisha Arevalo MD at 19:53 EDT Tel , Service support , CC: HENRI Lockett; Florence Barr MD Utility Division Project Manager: Signed PROGRESS Observed: 08/06/2017 Status: COMPLETED Source: [place] 11:45 AM [facility] RE[facility] HNO ID: [id number] Author: Jaki (Kevin) Woodrow Service: (none) Author Type: Nurse Practitioner Type: Progress Notes Filed: 08/06/2017 11:57 AM Note Text: HPI Pieter Mckeon is a 62 year old male who presents with cough and congestion. He had a fever and bad cough the last few days. Cough is improved but he feels short of breath, especially with activity. He has taken tylenol when he had a fever. Review of Systems Constitutional: Negative. Negative for fever. HENT: Negative for ear pain and sore throat. Respiratory: Positive for cough, sputum production and shortness of breath. Cardiovascular: Negative. Negative for chest pain. Neurological: Negative for headaches. BP 98/78 Pulse 86 Temp 37.4 ?C (99.3 ?F) (Tympanic) Resp 28 Wt 115.7 kg (255 lb) SpO2 95% No past medical history on file. No past surgical history on file. ALLERGIES Review of patient's allergies indicates no known allergies. MEDICATIONS No prescriptions on file. No family history on file. Social History Substance Use Topics - Smoking status: Never Smoker - Smokeless tobacco: Never Used - Alcohol use Not on file Physical Exam Constitutional: He is well-developed, well-nourished, and in no distress. HENT: Head: Normocephalic. Right Ear: Tympanic membrane, external ear and ear canal normal. Left Ear: Tympanic membrane, external ear and ear canal normal. Nose: Nose normal. No rhinorrhea. Mouth/Throat: Uvula is midline, oropharynx is clear and moist and mucous membranes are normal. Mucous membranes are not pale and not dry. No posterior oropharyngeal edema or posterior oropharyngeal erythema. Eyes: Conjunctivae are normal. Right eye exhibits no discharge. Left eye exhibits no discharge. Neck: Neck supple. Cardiovascular: Normal rate, regular rhythm and normal heart sounds. No murmur heard. Pulmonary/Chest: Effort normal. No tachypnea. No respiratory distress. He has no decreased breath sounds. He has wheezes (faint). He has no rales. Frequent harsh cough Lymphadenopathy: He has no cervical adenopathy. Neurological: He is alert. Skin: Skin is warm and dry. Nursing note and vitals reviewed. ASSESSMENT/PLAN: 1. Acute bronchitis, unspecified organism - ICD9: 466.0, ICD10: J20.9 - AZITHROMYCIN 250 MG TABLET - PREDNISONE 20 MG TABLET - ALBUTEROL SULFATE HFA 90 MCG/ACTUATION AEROSOL INHALER - INHALATIONAL SPACING DEVICE - Follow-up with your PCP in 3-5 days if symptoms have not improved or sooner if symptoms worsen - Discussed red flags and need for immediate medical evaluation if any occur. - Discussed supportive care treatment with fluids, rest and analgesia. - Discussed expected course of illness Jaki Troy CNP CNOV Observed: 08/06/2017 Status: COMPLETED Source: [place] 11:15 AM [facility] REPOSIT[facility] Office Visit ([facility]) FRANKOPIETER Narvaez ([id number]) 1955 M Date Time Provider Department 08/06/17 11:15 AM JAKI TROY (KEVIN) [facility] During your visit today, we recorded the following information about you: Temperature Pulse Respiration Blood pressure 99.3 degrees 86/minute 28/minute 98/78 Weight 115.7 kg Jaki Troy CNP 08/06/2017 11:57 AM Signed HPI Pieter Mckeon is a 62 year old male who presents with cough and congestion. He had a fever and bad cough the last few days. Cough is improved but he feels short of breath, especially with activity. He has taken tylenol when he had a fever. Review of Systems Constitutional: Negative. Negative for fever. HENT: Negative for ear pain and sore throat. Respiratory: Positive for cough, sputum production and shortness of breath. Cardiovascular: Negative. Negative for chest pain. Neurological: Negative for headaches. BP 98/78 Pulse 86 Temp 37.4 ?C (99.3 ?F) (Tympanic) Resp 28 Wt 115.7 kg (255 lb) SpO2 95% No past medical history on file. No past surgical history on file. ALLERGIES Review of patient's allergies indicates no known allergies. MEDICATIONS No prescriptions on file. No family history on file. Social History Substance Use Topics - Smoking status: Never Smoker - Smokeless tobacco: Never Used - Alcohol use Not on file Physical Exam Constitutional: He is well-developed, well-nourished, and in no distress. HENT: Head: Normocephalic. Right Ear: Tympanic membrane, external ear and ear canal normal. Left Ear: Tympanic membrane, external ear and ear canal normal. Nose: Nose normal. No rhinorrhea. Mouth/Throat: Uvula is midline, oropharynx is clear and moist and mucous membranes are normal. Mucous membranes are not pale and not dry. No posterior oropharyngeal edema or posterior oropharyngeal erythema. Eyes: Conjunctivae are normal. Right eye exhibits no discharge. Left eye exhibits no discharge. Neck: Neck supple. Cardiovascular: Normal rate, regular rhythm and normal heart sounds. No murmur heard. Pulmonary/Chest: Effort normal. No tachypnea. No respiratory distress. He has no decreased breath sounds. He has wheezes (faint). He has no rales. Frequent harsh cough Lymphadenopathy: He has no cervical adenopathy. Neurological: He is alert. Skin: Skin is warm and dry. Nursing note and vitals reviewed. ASSESSMENT/PLAN: 1. Acute bronchitis, unspecified organism - ICD9: 466.0, ICD10: J20.9 - AZITHROMYCIN 250 MG TABLET - PREDNISONE 20 MG TABLET - ALBUTEROL SULFATE HFA 90 MCG/ACTUATION AEROSOL INHALER - INHALATIONAL SPACING DEVICE - Follow-up with your PCP in 3-5 days if symptoms have not improved or sooner if symptoms worsen - Discussed red flags and need for immediate medical evaluation if any occur. - Discussed supportive care treatment with fluids, rest and analgesia. - Discussed expected course of illness KEVIN Joel CNP 08/06/2017 11:52 AM Signed Take medications as prescribed. If not improving in 3-5 days, or you have worsening symptoms, see your primary care provider for recheck. ACUTE BRONCHITIS: You have acute bronchitis. This means the airway passages in your lungs are inflamed. Bronchitis may be caused by viruses or bacteria. Inhaling cigarette smoke will always make it worse. Exposure to irritating chemicals or second hand smoke as well as allergies can contribute to bronchitis. Repeat episodes of bronchitis may cause lifelong lung problems. Acute bronchitis is usually treated with rest, fluids, cough medicine, and possibly antibiotics or inhaled medicine to open up the small airways. It is very important that you avoid smoke and drink increased amounts of fluids. A cool air vaporizer can help thin bronchial secretions. This makes it easier to cough and clear your chest. If you are a cigarette smoker, consider using nicotine gum or skin patches to help you withdraw. Recovery from bronchitis is often slow, but you should start feeling better after 2-3 days of treatment. Please call your doctor or return here if you have any of the following symptoms: - Increased fever, chills, or chest pain. - Severe shortness of breath or bloody sputum. - Do not improve after 3 days of proper treatment. Referring Provider: SELF [[id number]] Allergies As of Date: 08/06/2017 (No Known Allergies) Date Reviewed: 08/06/2017 Reviewed by: Jaki ([employer]) Woodrow - Fully Assessed Reason for Visit: Cough [28] Cmt: with congestion x 4 day Primary Visit Diagnosis:Acute bronchitis, unspecified organism [J20.9] Order(s):azithromycin (ZITHROMAX Z-LILLI) 250 mg tabletTake 2 tablets today then one tablet daily for 4 days.Disp: 6 tabletRfl: 0 predniSONE (DELTASONE) 20 mg tabletTake 1 tablet by mouth once daily for 4 days. Take daily with food.Disp: 4 tabletRfl: 0 albuterol HFA (PROVENTIL HFA, VENTOLIN HFA) 90 mcg/actuation inhalerInhale 2 Puffs as instructed every 4 hours as needed for Wheezing/Shortness of Breath.Disp: 1 InhalerRfl: 0 Inhalational Spacing Device spcr1 Device one time only for 1 dose.Disp: 1 EachRfl: 0 Prescriptions as of 08/06/2017 Sig: AZITHROMYCIN 250 MG TABLET Take 2 tablets today then one* PREDNISONE 20 MG TABLET Take 1 tablet by mouth once d* ALBUTEROL SULFATE HFA 90 MCG/* Inhale 2 Puffs as instructed * INHALATIONAL SPACING DEVICE 1 Device one time only for 1 * Problem List As Of Date: 08/06/2017 (None) Other instructions from your clinician: Take medications as prescribed. If not improving in 3- 5 days, or you have worsening symptoms, see your primary care provider for recheck. ACUTE BRONCHITIS: You have acute bronchitis. This means the airway passages in your lungs are inflamed. Bronchitis may be caused by viruses or bacteria. Inhaling cigarette smoke will always make it worse. Exposure to irritating chemicals or second hand smoke as well as allergies can contribute to bronchitis. Repeat episodes of bronchitis may cause lifelong lung problems. Acute bronchitis is usually treated with rest, fluids, cough medicine, and possibly antibiotics or inhaled medicine to open up the small airways. It is very important that you avoid smoke and drink increased amounts of fluids. A cool air vaporizer can help thin bronchial secretions. This makes it easier to cough and clear your chest. If you are a cigarette smoker, consider using nicotine gum or skin patches to help you withdraw. Recovery from bronchitis is often slow, but you should start feeling better after 2-3 days of treatment. Please call your doctor or return here if you have any of the following symptoms: - Increased fever, chills, or chest pain. - Severe shortness of breath or bloody sputum. - Do not improve after 3 days of proper treatment. Prescriptions ordered this encounter Disp Refills Start End AZITHROMYCIN 250 MG TABLET 6 ta* 0 08/06/2017 Sig: Take 2 tablets today then one tablet daily for 4 days. PREDNISONE 20 MG TABLET 4 ta* 0 08/06/2017 08/10/2017 Route: ORAL Sig: Take 1 tablet by mouth once daily for 4 days. Take daily with food. ALBUTEROL SULFATE HFA 90 MCG/ACTUATI* 1 In* 0 08/06/2017 Route: INHALATION Sig: Inhale 2 Puffs as instructed every 4 hours as needed for Wheezing/Shortness of Breath. INHALATIONAL SPACING DEVICE 1 Ea* 0 08/06/2017 08/06/2017 Route: Misc Si Device one time only for 1 dose. Encounter Status:Closed by JAKI TROY on 08/06/17 ALLERGIES ALLERGIES DATE TYPE / CODE NAME / CODE REACTION SEVERITY SOURCE 02/16/2018 Drug No Known Unknown [facility] All[facility]/4160 Allergies/F00 Hospital 64641(SNOMED [id number](RXNOR Repository CT) M) ENCOUNTERS ENCOUNTERS ADMIT/DISCHARGE ACCOUNT ADMITTING ENCOUNTER LOCATION SOURCE NUMBER CLASS 08/04/2018 [id number] Ambulatory [facility] Hospital ing:LAB Repository 07/26/2018 [id number] Ambulatory [facility] Hospital ing:NS Repository 06/27/2018/07/09/20 [id number] Ambulatory [address] [facility]NS Repository 06/19/2018 [id number] Ambulatory [facility] ing:CR Repository 06/08/2018/06/08/20 [id number] Ambulatory [address] [facility] ing[facility]CR Repository 05/21/2018 [id number] Ambulatory Building:[facility] Repository 05/18/2018/06/08/20 [id number] [address] [facility]NS Repository 05/09/2018/05/09/20 [id number] Ambulatory [address] [facility] ing:CR Repository 04/07/2018 [id number] Ambulatory [facility] Repository 04/06/2018/04/08/20 [id number] Ambulatory [address] HospitalBuild Hospital ing:CR Repository 03/13/2018 [id number] Ambulatory [facility] Hospital ing:CR Repository 03/09/2018/03/09/20 [id number] Ambulatory BMSBuilding:B [place] [address] MS.[facility] Repository 03/02/2018 [id number] Ambulatory [facility] Hospital ing:CLSP Repository 03/02/2018 [id number] Ambulatory BMSBuilding:B [place] MS.CF.[facility] Hospital Repository 02/16/2018/02/17/20 [id number] Ambulatory BMSBuilding:B [place] 18 MS.[facility] Hospital Repository 02/16/2018 [id number] Ambulatory [facility] Hospital ing:LAB Repository 02/14/2018 [id number] Ambulatory [facility] Hospital ing:CLSP Repository 02/01/2018/02/03/20 [id number] Agyep[place], Ambulatory [place] Hospital ing:PCURoom: Repository [id number]: 1 02/01/2018 [id number] Agyepong, Ambulatory BMSBuilding:Zaria [place] MS.Critical access hospital Repository 02/01/2018 [id number] Agyep[place], Ambulatory BMSBuilding:[place] MS.CF.[facility] Repository 02/01/2018 [id number] Agyepong, Ambulatory BMSBuilding:Z[place] MS.Critical access hospital Repository 02/01/2018 [id number] Agyepong, Ambulatory BMSBuilding:Zaria [place] MS.Critical access hospital Repository 02/01/2018/02/03/20 [id number] Ambulatory BMSBuilding:W [address] Repository 01/31/2018 [id number] Ambulatory [facility] Hospital ing:CVS Repository 01/29/2018/01/30/20 [id number] Ambulatory BMSBuilding:Zaria Carrero MS.[facility] Repository 01/26/2018 [id number] Ambulatory [facility] Hospital ing:CVS Repository 01/26/2018 [id number] Ambulatory BMSBuilding:W [facility] Repository 01/24/2018 [id number] [facility]MTLAB Repository 01/23/2018/01/24/20 [id number] Ambulatory BMSBuilding:Zaria Carrero MS.[facility] Repository 01/11/2018/01/12/20 [id number] Emergency [address] Hospitalild Hospital ing:ED Repository 01/01/2018 [id number] Ambulatory [facility] Hospital ing:HPRAD Repository 08/06/2017/08/06/19 [id number] Ambulatory [address] Repository PAYERS PAYERS ENCOUNTER GUARANTOR PAYER SUBSCRIBER SOURCE 08/04/2018 NIYA WILKINSONNDOB: [place] [id number] Insurance:[facility] [id number] Repository [address]Tvg: 330 [id number] [phone] (HP) Date:0748-63-35OD [address] [address]FK: 08/04/2018 Secondary NOT GIVENUNK [place] Insurance:SELF PAY [facility] Number: Effective Repository Date:2018-08-04 07/26/2018 NIYA Arita Primary BARBRA K FLINNDOB: [place] [id number] Insurance:MEDICAL [id number] [facility] Number: Repository [address]Clu: 330 [id number] [phone] (HP) Date:9984-87-62VK [address] [address]IS: 07/26/2018 Secondary NOT GIVENUNK [place] Insurance:SELF PAY [facility] Number: Effective Repository Date:2018-07-10 06/27/2018 NIYA Arita Primary BARBRA K FLINNDOB: [place] [id number] Insurance:MEDICAL [id number] [facility] Number: Repository [address]Pwu: 330 [id number] [phone] (HP) Date:5196-93-45QP [address] [address]JB: 06/27/2018 Secondary NOT GIVENUNK [place] Insurance:SELF PAY [facility] Number: Effective Repository Date:2018-06-09 06/19/2018 NIYA Arita Primary BARBRA K FLINNDOB: [place] [id number] Insurance:MEDICAL [id number] [facility] Number: Repository [address]Cvo: 330 [id number] [phone] (HP) Date:1074-34-35GM [address] [address]KA: 06/19/2018 Secondary NOT GIVENUNK [place] Insurance:SELF PAY [facility] Number: Effective Repository Date:2018-06-09 06/08/2018 NIYA Arita Primary BARBRA K FLINNDOB: [place] [id number] Insurance:MEDICAL [id number] [place], [place] Number: Repository [address]Cxe: [phone]) [id number] [phone] () Date:4535-79-65BQ [address] [place] [address]IY: 06/08/2018 Secondary NOT GIVENUNK [place] Insurance:SELF PAY [facility] Number: Effective Repository Date:2018-05-10 05/21/2018 Niya Arita Primary Barbra FlinnDOB: OHIP [employer]ices FlinnDOB: Insurance:Medical [id number] Repository [address] Number: [place], [place] [id number] [address]Nhg: [phone]: [phone]) Date:5878-00-54Vtun [phone] Name:[facility] Box ()Tel: [phone], [place] [phone] () [id number]: 05/21/2018 Secondary Barbra FlinnDOB: OHIP Practices Insurance:[place] [id number] [place] [address] Number: [place], [place] [id number]: (876) Date: () 4706-12-23Sima Name:[address] [address], [place] [address]FV: 05/18/2018 NIYA Arita Primary BARBRA K FLINNDOB: [place] [id number] Insurance:MEDICAL [id number] [place], [place] Number: Repository [address]Myq: [phone]) [id number] [phone] () Date:8256-24-41LN [address] [place] [address]SL: 05/18/2018 Secondary NOT GIVENUNK [place] Insurance:SELF PAY [facility] Number: Effective Repository Date:2018-05-14 05/09/2018 NIYA Arita Primary BARBRA Junior FLINNDOB: [place] [id number] Insurance:MEDICAL [id number] [facility] Number[place] Repository [address]Tik: 330 [id number] [phone] (HP) Date:9982-27-06EN [address] [address]OP: 05/09/2018 Secondary NOT GIVENUNK [place] Insurance:SELF PAY [facility] Number: Effective Repository Date:2018-04-09 04/07/2018 NIYA Arita Primary BARBRA Junior FLINNDOB: [place] [id number] Insurance:MEDICAL [id number] des [facility] Number: Repository [address]Som: 330 [id number] [phone] (HP) Date:2588-24-43YF [address] [address]WC: 04/07/2018 Secondary NOT GIVENUNK [place] Insurance:SELF PAY [facility] Number: Effective Repository Date:2018-04-07 04/06/2018 NIYA Arita Primary BARBRA Junior FLINNDOB: [place] [id number] Insurance:MEDICAL [id number] des [facility]iries [facility] Number[place] Repository [address]Fli: 330 [id number] [phone] (HP) Date:9544-76-87AJ [address] [address]QC: 04/06/2018 Secondary NOT GIVENUNK [place] Insurance:SELF PAY [facility] Number: Effective Repository Date:2018-03-13 03/13/2018 NIYA Arita Primary BARBRA Junior FLINNDOB: [place] [id number] Insurance:MEDICAL [id number] des [facility]iries [facility] Number[place] Repository [address]Nun: 330 [id number] [phone] (HP) Date:5236-77-04PI [address] [place] [address]DX: 03/13/2018 Secondary NOT GIVENUNK [place] Insurance:SELF PAY [facility] Number: Effective Repository Date:2018-03-02 03/09/2018 NIYA Arita Primary BARBRA K FLINNDOB: [place] [id number] Insurance:MEDICAL [id number] Number: Repository [address]Rkn: 330 [id number] [phone] (HP) Date:3164-10-86QP [address] [place] [address]FO: 03/09/2018 Secondary NOT GIVENUNK [place] Insurance:SELF PAY [facility] Number: Effective Repository Date:2018-03-09 03/02/2018 NIYA Arita Primary BARBRA K FLINNDOB: [place] [id number] Insurance:MEDICAL [id number] Number: Repository [address]Qcv: 330 [id number] [phone] (HP) Date:5699-93-81KI[address] [address]UM: 03/02/2018 Secondary NOT GIVENUNK [place] Insurance:SELF PAY [facility] Number: Effective Repository Date:2018-02-16 03/02/2018 NIYA Arita Primary BARBRA K FLINNDOB: [place] [id number] Insurance:MEDICAL [id number] [place] Number: Repository [address]Hec: 330 [id number] [phone] (HP) Date:0966-30-69OZ [address] [place] [address]ER: 03/02/2018 Secondary NOT GIVENUNK [place] Insurance:SELF PAY [facility] Number: Effective Repository Date:2018-03-02 02/16/2018 NIYA L Primary BARBRA K FLINNDOB: [place] [id number] Insurance:MEDICAL [id number] des [facility]iries [facility] Number[place] Repository [address]Kks: 330 [id number] [phone] (HP) Date:5462-29-74MM [address] [place] [address]PR: 02/16/2018 Secondary NOT GIVENUNK [place] Insurance:SELF PAY [facility] Number: Effective Repository Date:2018-02-16 02/16/2018 NIYA L Primary BARBRA K FLINNDOB: [place] [id number] Insurance:MEDICAL [id number] des Prairies [facility] Number[place] Repository [address]Chs: 330 [id number] [phone] (HP) Date:9139-14-94QA [address] [address]VG: 02/16/2018 Secondary NOT GIVENUNK [place] Insurance:SELF PAY [facility] Number: Effective Repository Date:2018-02-16 02/14/2018 NIYA L Primary BARBRA K FLINNDOB: [place] [id number] Insurance:MEDICAL [id number] des Prairies [facility] Number[place] Repository [address]Mrf: 330 [id number] [phone] (HP) Date:5435-04-29AG [address] [address]CA: 02/14/2018 Secondary NOT GIVENUNK [place] Insurance:SELF PAY [facility] Number: Effective Repository Date:2018-01-26 02/01/2018 NIYA L Primary BARBRA K FLINNDOB: [place] [id number] Insurance:MEDICAL [id number] des Prairies [facility] Number[place] Repository [address]Fbo: 330 [id number] [phone] (HP) Date:2838-20-20RL [address] [place] [address]HW: 02/01/2018 Secondary NOT GIVENUNK [place] Insurance:SELF PAY [facility] Number: Effective Repository Date:2018-01-31 02/01/2018 NIYA Arita Primary BARBRA K FLINNDOB: [place] [id number] Insurance:MEDICAL [id number] [facility] Number: Repository [address]Etf: 330 [id number] [phone] (HP) Date:5908-18-62RR [address] [address]NZ: 02/01/2018 Secondary NOT GIVENUNK [place] Insurance:SELF PAY [facility] Number: Effective Repository Date:2018-01-31 02/01/2018 NIYA Arita Primary BARBRA K FLINNDOB: [place] [id number] Insurance:MEDICAL [id number] [facility] Number: Repository [address]Xoc: 330 [id number] [phone] (HP) Date:9310-86-26FN [place] 4032601-101[address]WP: 02/01/2018 Secondary NOT GIVENUNK [place] Insurance:SELF PAY [facility] Number: Effective Repository Date:2018-02-01 02/01/2018 NIYA Arita Primary BARBRA K FLINNDOB: [place] [id number] Insurance:MEDICAL [id number] [facility] Number: Repository [address]Oqj: 330 [id number] [phone] (HP) Date:9568-16-87MF [address] [address]PV: 02/01/2018 Secondary NOT GIVENUNK [place] Insurance:SELF PAY [facility] Number: Effective Repository Date:2018-02-01 02/01/2018 NIYA Arita Primary BARBRA K FLINNDOB: [place] [id number] Insurance:MEDICAL [id number] des Prairies [facility] Number[place] Repository [address]Ztg: 330 [id number] [phone] (HP) Date:7665-32-98MG [address] [address]OQ: 02/01/2018 Secondary NOT GIVENUNK [place] Insurance:SELF PAY [facility] Number: Effective Repository Date:2018-02-01 02/01/2018 NIYA Arita Primary BARBRA K FLINNDOB: [place] [id number] Insurance:MEDICAL [id number] Number: Repository [address]Edb: 330 [id number] [phone] (HP) Date:4895-12-87KJ [address] [address]OM: 02/01/2018 Secondary NOT GIVENUNK [place] Insurance:SELF PAY [facility] Number: Effective Repository Date:2018-02-01 01/31/2018 NIYA Arita Primary BARBRA K FLINNDOB: [place] [id number] Insurance:MEDICAL [id number]. [facility] [place] Number: Repository [address]Mcd: 330 [id number] [phone] () Date:8066-61-45RH [address] [address]ED: 01/31/2018 Secondary NOT GIVENUNK [place] Insurance:SELF PAY [facility] Number: Effective Repository Date:2018-01-23 01/29/2018 NIYA Arita Primary BARBRA K FLINNDOB: [place] [id number] Insurance:MEDICAL [id number] [place] Number: Repository [address]Dbs: 330 [id number] [phone] () Date:6205-19-19ZE [address] [address]JV: 01/29/2018 Secondary NOT GIVENUNK [place] Insurance:SELF PAY [facility] Number: Effective Repository Date:2018-01-29 01/26/2018 NIYA Arita Primary BARBRA K FLINNDOB: [place] [id number] Insurance:MEDICAL [id number] [facility] Number: Repository [address]Vqa: 330 [id number] [phone] (HP) Date:8421-19-84YF [address] [place] [address]CB: 01/26/2018 Secondary NOT GIVENUNK [place] Insurance:SELF PAY [facility] Number: Effective Repository Date:2018-01-23 01/26/2018 NIYA Ariat Primary BARBRA K FLINNDOB: [place] [id number] Insurance:MEDICAL [id number] des [facility]iries [facility] Number[place] Repository [address]Ari: 330 [id number] [phone] (HP) Date:5672-42-59XG [address] [place] [address]IU: 01/26/2018 Secondary NOT GIVENUNK [place] Insurance:SELF PAY [facility] Number: Effective Repository Date:2018-01-26 01/24/2018 NIYA Arita Primary BARBRA K FLINNDOB: [place] [id number] Insurance:MEDICAL [id number] des Prairies [facility] Number[place] Repository [address]Kao: 330 [id number] [phone] () Date:1484-52-95AQ [address] [place] [address]RV: 01/24/2018 Secondary NOT GIVENUNK [place] Insurance:SELF PAY [facility] Number: Effective Repository Date:2018-01-24 01/23/2018 NIYA Arita Primary BARBRA K FLINNDOB: [place] [id number] Insurance:MEDICAL [id number]-[facility], Number: Repository [place] [address]Ypy: [id number] Date:9173-23-15PR [address] () [address] [place] [address]MU: 01/23/2018 Secondary NOT GIVENUNK [place] Insurance:SELF PAY [facility] Number: Effective Repository Date:2018-01-23 01/11/2018 Niya Arita Primary BARBRA K FLINNDOB: [place] [id number] Insurance:MEDICAL [id number] [place] Number: Repository [address]Zbo: 330 [id number] [phone] () Date:0378-73-40SY [address] [place] [address]MN: 01/11/2018 Secondary NOT GIVENUNK [place] Insurance:SELF PAY [facility] Number: Effective Repository Date:2018-01-11 01/01/2018 Niya Arita Primary BARBRA Junior FLINNDOB: [place] [id number] Insurance:MEDICAL [id number] [place] Number: Repository [address]Unv: 330 [id number] [phone] () Date:5888-37-83PD[address] [address]NB: 01/01/2018 Secondary NOT GIVENUNK [place] Insurance:SELF PAY [facility] Number: Effective Repository Date:2018-01-01
== END 2018-08-09 23:59 ==
LOC: NS 09:00
PROVIDERS: Family Provider Nurse Practitioner; PCP Nurse Practitioner; Visit Provider Internal Medicine Cardiovascular Disease
DX: E66.9 Obesity, unspecified (principal); Z68.33 Body mass index [BMI] 33.0-33.9, adult; I48.91 Unspecified atrial fibrillation; I42.9 Cardiomyopathy, unspecified; K21.9 Gastro-esophageal reflux disease without esophagitis; Z71.3 Dietary counseling and surveillance
CPT/HCPCS: 97803

== ENCOUNTER → 2018-08-21 07:28 | Outpatient (CLI) | payer OTHER, SELFPAY ==
[2018-08-10 10:41] VITALS: BMI 32.9
--- NOTE | 2018-08-21 14:16 | PFT ---
INTRODUCTION: The patient is a 63-year-old male that presents for pulmonary function studies secondary to a diagnosis of high risk medication use. Respiratory therapy reports good patient effort. Bronchodilators were used during testing. INTERPRETATION: Forced expiration spirometry demonstrates no evidence of a large airways obstructive ventilatory defect. There was no significant response to aerosolized bronchodilators, based upon strict ATS criteria. Spirograms are of good quality and do not plateau indicating slow emptying of the lungs. Body plethysmography was performed and reveals lung volumes are technically within normal limits. Diffusing capacity by single breath CO is within normal limits at 86% of predicted. IMPRESSION: Grossly normal pulmonary function studies.
== END ==
PROVIDERS: Family Provider Nurse Practitioner; PCP Nurse Practitioner; Referring Provider Internal Medicine Cardiovascular Disease; Visit Provider Internal Medicine Cardiovascular Disease
DX: Z79.899 Other long term (current) drug therapy (principal)
CPT/HCPCS: 94060; 94726; 94729

== ENCOUNTER → 2018-08-23 07:31 | Outpatient (CLI) | payer OTHER, SELFPAY ==
[2018-08-10 10:41] VITALS: BMI 32.9
--- NOTE | 2018-08-23 07:32 | ECHOD_ITS ---
Reason For Study: A. fib/flutter Procedure This was a 2D Doppler, Color Flow transthoracic echocardiogram. Exam performed in department. Left Ventricle Normal size and thickness. The estimated ejection fraction is 55-60 %. Normal diastology for age. No regional wall motion abnormalities noted. Right Ventricle Mildly dilated right ventricle. Normal systolic function. Atria The left atrium is mildly enlarged. Normal right atrium. Normal atrial septum. Mitral Valve The mitral valve is structurally normal. No prolapse or stenosis seen. Trivial mitral valve insufficiency. Tricuspid Valve Normal tricuspid valve. Unable to estimate RV systolic pressure due to inadequate jet, pulmonary artery pressure probably normal. Aortic Valve Normal aortic valve. Trisinus/trileaflet aortic valve. Pulmonic Valve Normal pulmonic valve. Great Vessels Normal aortic root. Normal arch. Normal inferior vena cava. Inferior vena cava collapse with sniff. Pericardium/Pleural No pericardial effusion. MMode/2D Measurements & Calculations LVIDd: 4.7 cm IVSd: 0.91 cm Ao root diam: 3.6 cm LVIDs: 3.2 cm LVPWd: 1.1 cm RVDd: 4.0 cm FS: 31.7 % LAV(MOD-bp): 71.7 ml EDV(MOD-sp4): 138.3 ml EDV(MOD-sp2): 153.3 ml LAV(MOD-bp) Indexed: 30.4 ml/m2 ESV(MOD-sp4): 54.7 ml EF(MOD-sp2): 55.7 % LAV(MOD-sp2): 70.9 ml EF(MOD-sp4): 60.5 % LAV(MOD-sp4): 67.8 ml SV(MOD-sp4): 83.6 ml SV(MOD-sp2): 85.4 ml LA A4 area: 21.6 cm2 LA dimension(2D): 4.6 cm RA A4 area: 15.1 cm2 Doppler Measurements & Calculations MV E max mele: 52.3 cm/sec Lat Peak E' Mele: 9.6 cm/sec Med Peak E' Mele: 6.5 cm/sec MV A max mele: 55.7 cm/sec E/E' lat: 5.5 E/E' med: 8.0 MV E/A: 0.94 Ao V2 max: 124.1 cm/sec LV V1 max: 91.8 cm/sec PA V2 max: 107.7 cm/sec Ao max P.2 mmHg LV V1 max P.4 mmHg Interpretation Summary The estimated ejection fraction is 55-60 %. Normal diastology for age. Mildly dilated right ventricle. The left atrium is mildly enlarged. Trivial mitral valve insufficiency. Unable to estimate RV systolic pressure due to inadequate jet, pulmonary artery pressure probably normal. Compared to echo report dated 01/26/2018, LV function has markedly improved from 35% to 60%. Ordering Physician: Balwinder Dick Referring Physician: Steff Carrington Performed By: Latricia Colby RDCS
== END ==
PROVIDERS: Family Provider Nurse Practitioner; PCP Nurse Practitioner; Referring Provider Internal Medicine Cardiovascular Disease; Visit Provider Internal Medicine Cardiovascular Disease
DX: I25.10 Atherosclerotic heart disease of native coronary artery without angina pectoris (principal); I42.8 Other cardiomyopathies; I48.91 Unspecified atrial fibrillation; I51.7 Cardiomegaly
CPT/HCPCS: 93306

== ENCOUNTER 2018-09-06 08:30 | Outpatient (RCR) | payer OTHER, SELFPAY ==
[2018-03-13 08:23] VITALS: BMI 34.5
[2018-08-10 10:41] VITALS: BMI 32.9
== END 2018-09-06 23:59 ==
LOC: NS 08:30
PROVIDERS: Family Provider Nurse Practitioner; PCP Nurse Practitioner; Visit Provider Internal Medicine Cardiovascular Disease
DX: E66.9 Obesity, unspecified (principal); Z68.33 Body mass index [BMI] 33.0-33.9, adult; I48.91 Unspecified atrial fibrillation; I42.9 Cardiomyopathy, unspecified; K21.9 Gastro-esophageal reflux disease without esophagitis; Z71.3 Dietary counseling and surveillance
CPT/HCPCS: 97803

== ENCOUNTER 2018-09-26 08:24 | Outpatient (RCR) | payer OTHER, SELFPAY ==
[2018-08-10 10:41] VITALS: BMI 32.9
== END 2018-10-07 23:59 ==
LOC: NS 08:24
PROVIDERS: Family Provider Nurse Practitioner; PCP Nurse Practitioner; Visit Provider Internal Medicine Cardiovascular Disease
DX: E66.9 Obesity, unspecified (principal); Z68.33 Body mass index [BMI] 33.0-33.9, adult; I48.91 Unspecified atrial fibrillation; I42.9 Cardiomyopathy, unspecified; K21.9 Gastro-esophageal reflux disease without esophagitis; Z71.3 Dietary counseling and surveillance
CPT/HCPCS: 97803

== ENCOUNTER 2018-10-24 08:30 | Outpatient (RCR) | payer OTHER, SELFPAY ==
[2018-08-10 10:41] VITALS: BMI 32.9
== END 2018-11-06 23:59 ==
LOC: NS 08:30
PROVIDERS: Family Provider Nurse Practitioner; PCP Nurse Practitioner; Visit Provider Internal Medicine Cardiovascular Disease
DX: E66.9 Obesity, unspecified (principal); Z68.33 Body mass index [BMI] 33.0-33.9, adult; I48.91 Unspecified atrial fibrillation; I42.9 Cardiomyopathy, unspecified; K21.9 Gastro-esophageal reflux disease without esophagitis; Z71.3 Dietary counseling and surveillance
CPT/HCPCS: 97803

== ENCOUNTER 2018-11-21 08:30 | Outpatient (RCR) | payer OTHER, SELFPAY ==
[2018-08-10 10:41] VITALS: BMI 32.9
== END 2018-11-21 16:13 | disposition home or self-care (01) ==
LOC: NS 08:30
PROVIDERS: Family Provider Nurse Practitioner; PCP Nurse Practitioner; Visit Provider Internal Medicine Cardiovascular Disease
DX: E66.9 Obesity, unspecified (principal); Z68.33 Body mass index [BMI] 33.0-33.9, adult; I48.91 Unspecified atrial fibrillation; I42.9 Cardiomyopathy, unspecified; K21.9 Gastro-esophageal reflux disease without esophagitis; Z71.3 Dietary counseling and surveillance
CPT/HCPCS: 97803

== ENCOUNTER → 2019-02-08 | Outpatient (CLI) | payer OTHER, SELFPAY ==
[2018-08-10 10:41] VITALS: BMI 32.9
--- NOTE | 2019-02-08 09:53 | RAD_ITS ---
STUDY: X-RAY CHEST REASON FOR EXAM: Male, 63 years old. Illness. TECHNIQUE: PA and lateral views of the chest. COMPARISON: Comparison is made with prior examination dated January 31, 2018. FINDINGS: Patchy bibasilar infiltrates more prominent at the left lung base. Follow-up is recommended. There is no demonstrated pleural abnormality. Normal size heart. Normal mediastinum and christianne. Normal visualized pulmonary arteries. There is atherosclerotic tortuosity of the aortic arch and descending thoracic aorta. There are diffuse degenerative changes of the visualized thoracic spine. Normal visualized ribs, clavicles, and shoulders. There is no demonstrated abnormality of the visualized soft tissue structures of the upper abdomen. RAD/Chest PA and Lateral IMPRESSION: Patchy bibasilar infiltrates more prominent on the left side. Follow-up is recommended. Electronically Signed: Carlitos Clinton, at 10:07 EDT , Service support ,
[2019-02-08 10:56] LABS: Hematocrit 45.2 % (40-54); Hemoglobin 15.2 g/dL (13.0-16.5); Mean Corp Hgb Conc 33.6 g/dL (32-36); Mean Corpuscular Volume 86.1 fL (80-94); Mean Platelet Vol. 9.2 fl (6.2-12.0); Platelet Count 312 K/mm3 (150-450); RBC Distribution Width CV 13.2 % (11.6-14.6); RBC Distribution Width SD 41.8 fl (35.1-43.9); Red Blood Count 5.25 M/mm3 (4.6-6.2); White Blood Count 17.6 K/mm3 (4.4-11.0)
[2019-02-08 11:06] LABS: ALB/GLOB Ratio 0.8 RATIO (0.9-2.4); AST(SGOT) 46 U/L (15-37); Alanine Aminotransfer ALT/SGPT 85 U/L (16-61); Alkaline Phosphatase 130 U/L (45-117); Anion Gap 7 (5-15); BUN 20 mg/dL (7-18); BUN/Creat Ratio 15.7 RATIO (10-20); Chloride 103 mmol/L (98-107); Creatinine, Serum 1.27 mg/dL (0.70-1.30); EST Glomerular Filtration Rate 61 mL/min (>60); Est Glom Filt Rate - Afr Amer 74 mL/min (>60); Globulin 3.6 g/dL (2.2-4.2); Glucose 93 mg/dL (74-106); Potassium 3.8 mmol/L (3.5-5.1); Protein, Total 6.6 g/dL (6.4-8.2); Sodium Level 136 mmol/L (136-145)
[2019-02-08 11:09] LABS: D-Dimer Quantitative (DVT/PE) 0.38 FEU/ug/m (0.27-0.49)
== END | disposition home or self-care (01) ==
PROVIDERS: Family Provider Nurse Practitioner; PCP Nurse Practitioner; Referring Provider Nurse Practitioner; Visit Provider Nurse Practitioner
DX: J18.9 Pneumonia, unspecified organism (principal); R05 Cough
CPT/HCPCS: 71046; 80053; 85027; 85379; 87070; 87077; 87205

== ENCOUNTER → 2019-02-18 05:54 | Outpatient (CLI) | payer OTHER, SELFPAY ==
[2018-08-10 10:41] VITALS: BMI 32.9
[2019-02-18 07:23] LABS: Absolute Lymphocyte Count 1.99 X10^3/uL (0.83-4.51); Absolute Neutrophil Count 5.8 X10^3/uL (2.0-7.7); Basophil# 0.08 X10^3/uL; Basophil% 0.9 % (0-1); Eosinophil# 0.34 X10^3/uL; Eosinophils% 3.8 % (0-5); Hematocrit 43.4 % (40-54); Lymphocyte # 1.99 X10^3/ul (4.0); Lymphocyte % 22.1 % (19-41); Mean Corp Hgb Conc 32.3 g/dL (32-36); Mean Corpuscular Hgb 28.5 pg (27.0-32.0); Mean Corpuscular Volume 88.4 fL (80-94); Mean Platelet Vol. 9.1 fl (6.2-12.0); Monocyte# 0.68 X10^3/uL; Monocyte% 7.6 % (0-10); NRBC Flagged by Analyzer 0 % (0-5); Neutrophil # 5.82 X10^3/uL (2.7-7.7); Neutrophil % 64.7 % (47-70); Platelet Count 284 K/mm3 (150-450); RBC Distribution Width CV 13.8 % (11.6-14.6); Red Blood Count 4.91 M/mm3 (4.6-6.2)
[2019-02-18 07:45] LABS: Microalbumin,Random Urine 8.4 mg/L (NO RANGE EST.); Microalbumin:Creatinine Ratio 8.4 mg/g CRE (<30 mg/g CRE)
[2019-02-18 08:03] LABS: ALB/GLOB Ratio 0.8 RATIO (0.9-2.4); AST(SGOT) 39 U/L (15-37); Alanine Aminotransfer ALT/SGPT 75 U/L (16-61); Albumin, Serum 2.9 g/dL (3.2-5.0); Alkaline Phosphatase 130 U/L (45-117); Anion Gap 8 (5-15); BUN 23 mg/dL (7-18); BUN/Creat Ratio 19.2 RATIO (10-20); Calcium,Total 8.6 mg/dL (8.5-10.1); Chloride 109 mmol/L (98-107); EST Glomerular Filtration Rate 65 mL/min (>60); Est Glom Filt Rate - Afr Amer 79 mL/min (>60); Globulin 3.6 g/dL (2.2-4.2); Glucose 84 mg/dL (74-106); Potassium 4.1 mmol/L (3.5-5.1); Protein, Total 6.5 g/dL (6.4-8.2); Sodium Level 142 mmol/L (136-145); Thyroid Stim Hormone (TSH) 1.47 uIU/mL (0.358-3.74)
== END ==
PROVIDERS: Family Provider Nurse Practitioner; PCP Nurse Practitioner; Referring Provider Nurse Practitioner; Visit Provider Nurse Practitioner
DX: I10 Essential (primary) hypertension (principal)
CPT/HCPCS: 36415; 80053; 82043; 82570; 84443; 85025

== ENCOUNTER → 2019-02-28 | Outpatient (CLI) | payer OTHER, SELFPAY ==
[2018-08-10 10:41] VITALS: BMI 32.9
--- NOTE | 2019-02-28 07:56 | US_ITS ---
STUDY: ABDOMINAL ULTRASOUND - RIGHT UPPER QUADRANT REASON FOR VISIT: Male, 63 years old. Increased LFTs TECHNIQUE: Ultrasound evaluation of the right upper quadrant was performed with real-time and static maloney-scale imaging. TECHNICAL QUALITY: Adequate. COMPARISON: None. FINDINGS: Liver: The liver measures 15.9 cm. There is increased echogenicity consistent with fatty infiltration. The bile ducts are within normal limits. There is hepatic color flow. The direction of portal flow is hepatopetal. There is no demonstrated mass lesion. Gallbladder: Normal distended gallbladder. The gallbladder wall measures 2.8 mm. There is a negative sonographic Daniel's sign. There is no pericholecystic fluid. There are no gallstones. Common Bile Duct (C.B.D.): The common bile duct measures 4.1 mm. Pancreas: There is nonvisualization of the pancreas. Right Kidney: Normal size of the right kidney. The right kidney measures 11.7 x 6.4 x 6.4 cm. Normal renal cortex. The right cortex measures 2.2 cm. There is no demonstrated renal mass but with upper pole renal cyst measuring 2.6 x 1.8 x 1.8 cm. There is no right hydronephrosis. US/Liver IMPRESSION: Fatty change of liver. Suboptimal assessment of pancreas due to overlying bowel gas. Normal assessment of the gallbladder, with no cholelithiasis or acute cholecystitis. Benign-appearing right upper pole renal cyst. No evidence of right hydronephrosis. Electronically Signed: René Cavanaugh MD at 11:35 EDT Tel [phone], Service support ,
== END | disposition home or self-care (01) ==
LOC: OPUS 07:55
PROVIDERS: Family Provider Nurse Practitioner; PCP Nurse Practitioner; Referring Provider Nurse Practitioner; Visit Provider Nurse Practitioner
DX: R94.5 Abnormal results of liver function studies (principal)
CPT/HCPCS: 76705

== ENCOUNTER → 2019-03-23 | Outpatient (CLI) | payer OTHER, SELFPAY ==
[2019-03-23 08:56] VITALS: BMI 29.7
--- NOTE | 2019-03-23 09:30 | RAD_ITS ---
STUDY: X-RAY - RIGHT WRIST REASON FOR EXAM: Male, 63 years old. Fall. Signs and symptoms not reported. TECHNIQUE: 3 view(s) of the wrist were obtained. COMPARISON: None. FINDINGS: Peripheral arterial calcifications in the radial artery distribution. Superficial soft tissue edema suggesting contusion overlying the distal ulna. Osseous structures of the hand and wrist appear intact, normally articulated, normally mineralized, with no visible acute fracture. RAD/Wrist min 3 Views IMPRESSION: Lateral distal forearm/wrist soft tissue swelling. No apparent osseous injury. Peripheral arterial calcifications. Electronically Signed: Francesco Barnett MD at 11:23 EDT Tel , Service support ,
== END | disposition home or self-care (01) ==
LOC: RAD 09:21
PROVIDERS: Family Provider Nurse Practitioner; PCP Nurse Practitioner; Visit Provider Physician Assistant Medical
DX: M79.89 Other specified soft tissue disorders (principal); W11.XXXA Fall on and from ladder, initial encounter
CPT/HCPCS: 73110

== ENCOUNTER → 2019-09-24 | Outpatient (CLI) | payer OTHER, SELFPAY ==
[2019-09-19 09:45] VITALS: BMI 30.8
[2019-09-24 09:57] LABS: ALB/GLOB Ratio 1.1 RATIO (0.9-2.4); AST(SGOT) 27 U/L (15-37); Alanine Aminotransfer ALT/SGPT 36 U/L (16-61); Albumin, Serum 3.6 g/dL (3.2-5.0); Alkaline Phosphatase 80 U/L (45-117); Anion Gap 6 (5-15); BUN 19 mg/dL (7-18); Bilirubin, Direct 0.21 mg/dL (0.00-0.30); Chloride 113 mmol/L (98-107); Cholesterol 148 mg/dL (200); Creatinine, Serum 1.19 mg/dL (0.70-1.30); EST Glomerular Filtration Rate 66 mL/min (>60); Est Glom Filt Rate - Afr Amer 80 mL/min (>60); Globulin 3.4 g/dL (2.2-4.2); Glucose 80 mg/dL (74-106); High Density Lipoprotein 40 mg/dL; Potassium 3.9 mmol/L (3.5-5.1); Sodium Level 141 mmol/L (136-145); Triglycerides 65 mg/dL; Very Low Density Lipoprotein 13 mg/dL (5-40)
== END | disposition home or self-care (01) ==
LOC: LAB 07:59
PROVIDERS: Internal Medicine Cardiovascular Disease; PCP Nurse Practitioner; Referring Provider Nurse Practitioner; Visit Provider Nurse Practitioner
DX: E78.5 Hyperlipidemia, unspecified (principal); I25.10 Atherosclerotic heart disease of native coronary artery without angina pectoris; E03.9 Hypothyroidism, unspecified; R94.5 Abnormal results of liver function studies
CPT/HCPCS: 36415; 80053; 80061; 82248; 84443

== ENCOUNTER → 2020-03-17 | Outpatient (CLI) | payer OTHER, SELFPAY ==
[2019-09-19 09:45] VITALS: BMI 30.8
--- NOTE | 2020-03-17 08:46 | ECHOD_ITS ---
Reason For Study: CHF Procedure This was a 2D Doppler, Color Flow transthoracic echocardiogram. Exam performed in department. Left Ventricle Normal LV size. The estimated ejection fraction is 60 %. No evidence for diastolic dysfunction. No regional wall motion abnormalities noted. Right Ventricle Normal RV size. Normal systolic function. Atria Normal left atrium. Normal right atrium. No doppler evidence for ASD. Mitral Valve There is no mitral valve stenosis. No mitral valve insufficiency. Tricuspid Valve There is no tricuspid stenosis. Unable to estimate RV systolic pressure due to inadequate jet, pulmonary artery pressure probably normal. Aortic Valve Trisinus/trileaflet aortic valve. There is no aortic stenosis. No aortic valve insufficiency. Pulmonic Valve There is no pulmonic valvular stenosis. No pulmonic valve insufficiency. Great Vessels Normal aortic root. Pericardium/Pleural No pericardial effusion. MMode/2D Measurements & Calculations LVIDd: 4.4 cm IVSd: 1.1 cm Ao root diam: 3.5 cm LVIDs: 3.2 cm LVPWd: 1.1 cm RVDd: 4.2 cm FS: 28.5 % LAV(MOD-bp): 50.2 ml LVAd ap4: 40.5 cm2 SV(MOD-sp4): 77.1 ml LAV(MOD-bp) Indexed: 21.0 ml/m2 EDV(MOD-sp4): 139.5 ml LAV(MOD-sp2): 50.2 ml EDV(sp4-el): 148.7 ml LAV(MOD-sp4): 50.4 ml LVAs ap4: 24.9 cm2 ESV(MOD-sp4): 62.4 ml ESV(sp4-el): 64.4 ml EF(MOD-sp4): 55.3 % EF(sp4-el): 56.7 % SV(sp4-el): 84.3 ml LA A4 area: 18.8 cm2 LA dimension(2D): 4.4 cm RA A4 area: 18.8 cm2 Time Measurements MV dec time: 0.33 sec Doppler Measurements & Calculations MV E max mele: 52.5 cm/sec Lat Peak E' Mele: 9.9 cm/sec Med Peak E' Mele: 6.8 cm/sec MV A max mele: 65.0 cm/sec E/E' lat: 5.3 E/E' med: 7.7 MV E/A: 0.81 Ao V2 max: 115.1 cm/sec LV V1 max: 100.0 cm/sec PA V2 max: 87.0 cm/sec Ao max P.3 mmHg LV V1 max P.0 mmHg PI end-d mele: 85.9 cm/sec Interpretation Summary The estimated ejection fraction is 60 %. No evidence for diastolic dysfunction. Ordering Physician: Balwinder Dick Referring Physician: STEPHEN SUBRAMANIAN Performed By: Megan Noguera RDCS
== END | disposition home or self-care (01) ==
LOC: CVS 08:46
PROVIDERS: PCP Nurse Practitioner; Referring Provider Internal Medicine Cardiovascular Disease; Visit Provider Internal Medicine Cardiovascular Disease
DX: I42.8 Other cardiomyopathies (principal); I25.10 Atherosclerotic heart disease of native coronary artery without angina pectoris; I51.7 Cardiomegaly; I48.91 Unspecified atrial fibrillation; I50.9 Heart failure, unspecified
CPT/HCPCS: 93306

== ENCOUNTER → 2020-06-02 07:07 | Outpatient (CLI) | payer OTHER, SELFPAY ==
[2020-05-13 10:48] VITALS: BMI 32.5
[2020-06-02 10:24] LABS: Absolute Neutrophil Count 5.3 X10^3/uL (2.0-7.7); Basophil# 0.05 X10^3/uL; Basophil% 0.6 % (0-1); Eosinophil# 0.33 X10^3/uL; Eosinophils% 3.9 % (0-5); Hematocrit 50.2 % (40-54); Hemoglobin 16.3 g/dL (13.0-16.5); Lymphocyte % 23.8 % (19-41); Mean Corp Hgb Conc 32.5 g/dL (32-36); Mean Corpuscular Hgb 28.1 pg (27.0-32.0); Mean Corpuscular Volume 86.4 fL (80-94); Mean Platelet Vol. 9.6 fl (6.2-12.0); Monocyte# 0.69 X10^3/uL; Monocyte% 8.2 % (0-10); NRBC Flagged by Analyzer 0 % (0-5); Neutrophil # 5.31 X10^3/uL (2.7-7.7); Neutrophil % 63.1 % (47-70); Platelet Count 225 K/mm3 (150-450); RBC Distribution Width CV 13.4 % (11.6-14.6); RBC Distribution Width SD 42.2 fl (35.1-43.9); Red Blood Count 5.81 M/mm3 (4.6-6.2); White Blood Count 8.4 K/mm3 (4.4-11.0)
[2020-06-02 10:53] LABS: PSA,Total - Annual Screen 1.52 ng/mL (0.00-4.00)
== END ==
PROVIDERS: PCP Nurse Practitioner; Referring Provider Nurse Practitioner; Visit Provider Nurse Practitioner
DX: I10 Essential (primary) hypertension (principal); Z12.5 Encounter for screening for malignant neoplasm of prostate
CPT/HCPCS: 36415; 84153; 84443; 85025; G0103

== ENCOUNTER → 2020-08-26 11:51 | Outpatient (CLI) | payer OTHER, SELFPAY ==
[2020-08-26 10:45] VITALS: BMI 33.6
--- NOTE | 2020-08-26 11:55 | RAD_ITS ---
STUDY: X-RAY CHEST REASON FOR EXAM: Male, 65 years old. Pre op no current pain TECHNIQUE: PA and lateral views of the chest. COMPARISON: Comparison is made with prior study dated 02/08/2019. FINDINGS: Minimal increased linear markings at the lung bases suggestive of bibasilar scarring. No acute infiltrate is seen. There is no demonstrated pleural abnormality. Normal size heart. Normal mediastinum and christianne. Normal visualized pulmonary arteries. There is atherosclerotic tortuosity of the aortic arch and descending thoracic aorta. There are diffuse degenerative changes of the visualized thoracic spine. Normal visualized ribs, clavicles, and shoulders. There is no demonstrated abnormality of the visualized soft tissue structures of the upper abdomen. RAD/Chest PA and Lateral IMPRESSION: Mild degree of bibasilar linear scarring. Electronically Signed: Carlitos Clinton MD at 13:41 EST , Service support ,
[2020-08-26 13:26] LABS: Anion Gap 8 (5-15); BUN 23 mg/dL (7-18); BUN/Creat Ratio 17.7 RATIO (10-20); Calcium,Total 9.4 mg/dL (8.5-10.1); Chloride 108 mmol/L (98-107); EST Glomerular Filtration Rate 59 mL/min (>60); Est Glom Filt Rate - Afr Amer 72 mL/min (>60); Glucose 86 mg/dL (74-106); Potassium 4.2 mmol/L (3.5-5.1); Sodium Level 138 mmol/L (136-145)
== END ==
PROVIDERS: PCP Nurse Practitioner; Referring Provider Nurse Practitioner Family; Visit Provider Nurse Practitioner Family
DX: Z01.810 Encounter for preprocedural cardiovascular examination (principal); I25.10 Atherosclerotic heart disease of native coronary artery without angina pectoris; I48.91 Unspecified atrial fibrillation
CPT/HCPCS: 36415; 71046; 80048

== ENCOUNTER → 2020-10-01 06:32 | Outpatient (CLI) | payer OTHER, SELFPAY ==
[2020-08-26 10:45] VITALS: BMI 33.6
[2020-10-01 07:13] LABS: Absolute Lymphocyte Count 2.09 X10^3/uL (0.83-4.51); Absolute Neutrophil Count 3.5 X10^3/uL (2.0-7.7); Basophil# 0.06 X10^3/uL; Basophil% 0.9 % (0-1); Eosinophil# 0.32 X10^3/uL; Eosinophils% 4.8 % (0-5); Hematocrit 44.3 % (40-54); Hemoglobin 15.1 g/dL (13.0-16.5); Lymphocyte # 2.09 X10^3/ul (4.0); Lymphocyte % 31.1 % (19-41); Mean Corp Hgb Conc 34.1 g/dL (32-36); Mean Corpuscular Hgb 28.9 pg (27.0-32.0); Mean Corpuscular Volume 84.9 fL (80-94); Mean Platelet Vol. 9.7 fl (6.2-12.0); Monocyte% 10.4 % (0-10); NRBC Flagged by Analyzer 0 % (0-5); Neutrophil # 3.53 X10^3/uL (2.7-7.7); Neutrophil % 52.7 % (47-70); Platelet Count 188 K/mm3 (150-450); RBC Distribution Width CV 13.5 % (11.6-14.6); RBC Distribution Width SD 41.5 fl (35.1-43.9); Red Blood Count 5.22 M/mm3 (4.6-6.2); White Blood Count 6.7 K/mm3 (4.4-11.0)
[2020-10-01 07:33] LABS: Microalbumin:Creatinine Ratio 10.3 mg/g CRE (<30 mg/g CRE)
[2020-10-01 07:56] LABS: AST(SGOT) 34 U/L (15-37); Alanine Aminotransfer ALT/SGPT 42 U/L (16-61); Albumin, Serum 3.5 g/dL (3.2-5.0); Alkaline Phosphatase 71 U/L (45-117); Anion Gap 7 (5-15); BUN 20 mg/dL (7-18); Calcium,Total 8.8 mg/dL (8.5-10.1); Chloride 110 mmol/L (98-107); Cholesterol 134 mg/dL (200); Creatinine, Serum 1.05 mg/dL (0.70-1.30); EST Glomerular Filtration Rate 76 mL/min (>60); Est Glom Filt Rate - Afr Amer 92 mL/min (>60); Globulin 3.4 g/dL (2.2-4.2); Glucose 87 mg/dL (74-106); High Density Lipoprotein 39 mg/dL; Protein, Total 6.9 g/dL (6.4-8.2); Sodium Level 140 mmol/L (136-145); Thyroid Stim Hormone (TSH) 0.12 uIU/mL (0.358-3.74); Triglycerides 50 mg/dL; Very Low Density Lipoprotein 10 mg/dL (5-40)
== END ==
PROVIDERS: PCP Nurse Practitioner; Referring Provider Nurse Practitioner; Visit Provider Nurse Practitioner
DX: I10 Essential (primary) hypertension (principal); E78.00 Pure hypercholesterolemia, unspecified; E03.9 Hypothyroidism, unspecified
CPT/HCPCS: 36415; 80053; 80061; 82043; 82570; 84443; 85025

== ENCOUNTER → 2020-11-16 08:38 | Outpatient (CLI) | payer OTHER, SELFPAY ==
[2020-08-26 10:45] VITALS: BMI 33.6
[2020-11-16 10:38] LABS: Free T3 3.1 pg/mL (2.18-3.98); T4 Free Direct 1.54 ng/dL (0.76-1.46); Thyroid Stim Hormone (TSH) 0.07 uIU/mL (0.358-3.74)
== END ==
PROVIDERS: PCP Nurse Practitioner; Referring Provider Nurse Practitioner; Visit Provider Nurse Practitioner
DX: R94.6 Abnormal results of thyroid function studies (principal)
CPT/HCPCS: 36415; 84439; 84443; 84481

== ENCOUNTER → 2020-12-21 13:51 | Outpatient (CLI) | payer OTHER, SELFPAY ==
[2020-08-26 10:45] VITALS: BMI 33.6
[2020-12-21 16:17] LABS: Thyroid Stim Hormone (TSH) 0.13 uIU/mL (0.358-3.74)
== END ==
PROVIDERS: PCP Nurse Practitioner; Referring Provider Nurse Practitioner; Visit Provider Nurse Practitioner
DX: R94.6 Abnormal results of thyroid function studies (principal)
CPT/HCPCS: 36415; 84443

== ENCOUNTER → 2021-03-17 09:20 | Outpatient (CLI) | payer OTHER, SELFPAY ==
[2021-03-17 12:20] LABS: Erythrocyte Sedimentation Rate 3 mm/hr (0-20)
[2021-03-17 12:34] LABS: Thyroid Stim Hormone (TSH) 9.09 uIU/mL (0.358-3.74)
[2021-03-17 12:37] LABS: Vitamin B12 421 pg/mL (211-911); Vitamin D,25 Hydroxy 45.4 ng/mL
== END ==
PROVIDERS: PCP Nurse Practitioner; Referring Provider Nurse Practitioner; Visit Provider Nurse Practitioner
DX: E03.9 Hypothyroidism, unspecified (principal); R53.83 Other fatigue
CPT/HCPCS: 36415; 82306; 82607; 84443; 85652

== ENCOUNTER 2021-07-21 12:44 | Outpatient (CLI) | payer OTHER, SELFPAY ==
--- NOTE | 2021-07-21 12:51 | ECHOD_ITS ---
Reason For Study: Preop Procedure This was a 2D Doppler, Color Flow transthoracic echocardiogram. The exam was of adequate technical quality. Exam performed in department. Left Ventricle Normal LV size. Left ventricular systolic function is normal. The estimated ejection fraction is 55 %. No evidence for diastolic dysfunction. No regional wall motion abnormalities noted. Right Ventricle Normal RV size. Normal systolic function. Atria Normal left atrium. Normal right atrium. No doppler evidence for ASD. Mitral Valve There is no mitral annular calcification. Normal mitral valve. Mild (1+) mitral valve insufficiency. Tricuspid Valve Normal tricuspid valve. Trivial tricuspid valve insufficiency. Unable to estimate RV systolic pressure due to insufficient tricuspid regurgitant envelope. Aortic Valve Trisinus/trileaflet aortic valve. Normal aortic valve. Pulmonic Valve The pulmonic valve is not well visualized. Trivial pulmonic valve insufficiency. Great Vessels Normal sized aortic root. Pericardium/Pleural No pericardial effusion. MMode/2D Measurements & Calculations LVIDd: 4.8 cm IVSd: 0.97 cm Ao root diam: 3.5 cm LVIDs: 3.2 cm LVPWd: 1.0 cm RVDd: 4.9 cm FS: 33.0 % LAV(MOD-bp): 48.7 ml LVAd ap4: 37.4 cm2 SV(MOD-sp4): 65.5 ml LAV(MOD-bp) Indexed: 20.4 ml/m2 LVLd ap4: 9.4 cm LAV(MOD-sp2): 47.5 ml EDV(MOD-sp4): 120.4 ml LAV(MOD-sp4): 48.1 ml EDV(sp4-el): 126.5 ml LVAs ap4: 22.4 cm2 LVLs ap4: 7.8 cm ESV(MOD-sp4): 54.9 ml ESV(sp4-el): 54.9 ml EF(MOD-sp4): 54.4 % EF(sp4-el): 56.6 % SV(sp4-el): 71.6 ml LA A4 area: 18.4 cm2 LA dimension(2D): 5.0 cm RA A4 area: 12.2 cm2 Doppler Measurements & Calculations MV E max mele: 51.7 cm/sec Lat Peak E' Mele: 13.6 cm/sec Med Peak E' Mele: 5.7 cm/sec MV A max mele: 72.5 cm/sec E/E' lat: 3.8 E/E' med: 9.1 MV E/A: 0.71 Ao V2 max: 130.0 cm/sec LV V1 max: 101.2 cm/sec PA V2 max: 100.2 cm/sec Ao max P.8 mmHg LV V1 max P.1 mmHg Ao V2 mean: 85.6 cm/sec Ao mean P.3 mmHg Ao V2 VTI: 26.4 cm PI end-d mele: 105.0 cm/sec ECHO/Echo Complete Interpretation Summary Left ventricular systolic function is normal. The estimated ejection fraction is 55 %. Mild (1+) mitral valve insufficiency. Trivial tricuspid valve insufficiency. Trivial pulmonic valve insufficiency. Unable to estimate RV systolic pressure due to insufficient tricuspid regurgita nt envelope. No evidence for diastolic dysfunction. Ordering Physician: Karan Lugo Referring Physician: Steff Carrington Performed By: Conchis Angela, KYLEE, RVT
== END 2021-07-21 23:59 | disposition short-term general hospital (02) ==
PROVIDERS: PCP Nurse Practitioner; Referring Provider Internal Medicine Cardiovascular Disease; Visit Provider Internal Medicine Cardiovascular Disease
DX: Z01.810 Encounter for preprocedural cardiovascular examination (principal); I42.8 Other cardiomyopathies; I48.0 Paroxysmal atrial fibrillation; I25.10 Atherosclerotic heart disease of native coronary artery without angina pectoris; I51.7 Cardiomegaly
CPT/HCPCS: 93306

== ENCOUNTER 2021-08-10 07:26 | Outpatient (CLI) | payer OTHER, SELFPAY ==
[2021-08-10 10:02] LABS: Hematocrit 45.1 % (40-54); Hemoglobin 15.2 g/dL (13.0-16.5); Mean Corp Hgb Conc 33.7 g/dL (32-36); Mean Corpuscular Hgb 28.6 pg (27.0-32.0); Mean Corpuscular Volume 84.9 fL (80-94); Mean Platelet Vol. 9.5 fl (6.2-12.0); Platelet Count 196 K/mm3 (150-450); RBC Distribution Width CV 13.5 % (11.6-14.6); RBC Distribution Width SD 41.7 fl (35.1-43.9); Red Blood Count 5.31 M/mm3 (4.6-6.2); White Blood Count 7.8 K/mm3 (4.4-11.0)
[2021-08-10 10:25] LABS: Microalbumin,Random Urine 36.1 mg/L (NO RANGE EST.); Microalbumin:Creatinine Ratio 17.2 mg/g CRE (<30 mg/g CRE)
[2021-08-10 10:34] LABS: Albumin, Serum 3.4 g/dL (3.2-5.0); BUN 18 mg/dL (7-18); BUN/Creat Ratio 14.1 RATIO (10-20); Calcium,Total 8.8 mg/dL (8.5-10.1); Chloride 111 mmol/L (98-107); Creatinine, Serum 1.28 mg/dL (0.70-1.30); EST Glomerular Filtration Rate 60 mL/min (>60); Est Glom Filt Rate - Afr Amer 73 mL/min (>60); Glucose 85 mg/dL (74-106); Phosphorus 3.2 mg/dL (2.5-4.9); Sodium Level 139 mmol/L (136-145); Thyroid Stim Hormone (TSH) 3.76 uIU/mL (0.358-3.74)
== END 2021-08-10 23:59 | disposition short-term general hospital (02) ==
LOC: MTLAB 07:28
PROVIDERS: PCP Nurse Practitioner; Referring Provider Nurse Practitioner; Visit Provider Nurse Practitioner
DX: R79.89 Other specified abnormal findings of blood chemistry (principal); E03.9 Hypothyroidism, unspecified; Z79.01 Long term (current) use of anticoagulants
CPT/HCPCS: 36415; 80069; 82043; 82570; 84443; 85027

== ENCOUNTER 2022-06-11 20:00 | Emergency (ER) | payer OTHER, SELFPAY ==
[2022-06-11 20:01] VITALS: BP 135/81; PULSE 71; RESP 18; TEMP 36.6; O2SAT 97; BMI 34.2
--- NOTE | 2022-06-11 20:14 | EX.ED.DYSGE1 ---
HPI History of Present Illness Chief Complaint: Lower Extremity Injury Detail of Chief Complaint: Right leg swelling Informant: patient Onset/Context/Timing Onset: Days Context: Gradual Onset Narrative Narrative: Patient present secondary to right leg swelling. He had a knee replacement on May 24 at [facility]. He has noted increased swelling in his calf with pain. Patient has a history of A. fib and is currently on Xarelto. He states he has been compliant in taking his blood thinner. He does note that he stopped using his compression sock about 2 weeks after the surgery. He was walking around at [facility] this afternoon when he had increased pain. He did take oxycodone and Tylenol prior to arrival. [facility] Medical History Atherosclerotic heart disease of [place] coronary artery without angina pectoris Atrial enlargement, right Atrial fibrillation Daytime somnolence GERD (gastroesophageal reflux disease) Nonischemic cardiomyopathy Preoperative cardiovascular examination Snoring Thyroid disease Home Medications omeprazole 20 mg capsule,delayed release 20 mg PO DAILY 02/01/18 [History Last Taken 03/02/18] cholecalciferol (vitamin D3) 50 mcg (2,000 unit) tablet 50 mcg PO DAILY 07/30/21 [History Last Taken Unknown] flecainide 100 mg tablet 100 mg PO Q12H #180 tabs 09/09/21 [Rx Last Taken Unknown] losartan 25 mg tablet 25 mg PO DAILY #90 tabs 12/22/21 [Rx Last Taken Unknown] rivaroxaban 20 mg tablet (Xarelto) 20 mg PO DAILY #90 tabs 01/18/22 [Rx Last Taken Unknown] metoprolol succinate 25 mg tablet,extended release 24 hr 25 mg PO DAILY #90 tabs 03/07/22 [Rx Last Taken Unknown] levothyroxine 125 mcg capsule See Rx Instructions PO DAILY 03/16/22 [History Last Taken Unknown] Allergy/AdvReac Type Severity Reaction Status Date / Time atorvastatin AdvReac Severe elevated Verified 06/11/22 20:01 liver enzymes Family History Mother Hypertension Cancer lung and ovarian Father Cancer Prostate Surgical History H/O lateral meniscus repair of left knee (~2004) History of cardioversion (03/02/18) History of left heart catheterization (02/02/18) Social History Smoking Status: Never smoker alcohol intake: never substance use type: does not use caffeine: Yes Type: coffee ROS ROS ED Constitutional Constitutional ED: Denies chills or fever(s) Eyes Eyes: Denies change in vision or discharge from eye(s) ENT ENT ED: Denies discharge from eye(s), rhinorrhea or sore throat Cardiovascular Cardiovascular: Denies chest pain or palpitations Respiratory/Chest Respiratory/Chest: Denies cough or dyspnea Gastrointestinal Gastrointestinal: Denies abdominal pain, nausea or vomiting Genitourinary Genitourinary ED: Denies dysuria Musculoskeletal Musculoskeletal: Reports extremity pain; Denies back pain Integumentary Denies Abrasions or rash Neurologic Neurologic: Denies headache(s) or weakness Psychiatric Psychiatric: Denies anxiety or depression Allergic/Immunologic Allergic/Immunologic ED: Denies lip swelling or urticaria EXAM Physical Exam Const Vital Signs: 06/11/22 20:01 Temperature 97.9 F Temperature Source Temporal Pulse Rate 71 Respiratory Rate 18 Blood Pressure 135/81 H Blood Pressure Mean 99 Pulse Ox 97 Oxygen Delivery Method Room Air Positive well nourished and well developed General Appearance ED: well developed HEENT Reports normocephalic and head/scalp atraumatic Eyes PERRL and EOMs intact bilaterally Neck supple Chest Wall inspection of chest normal and palpation of chest normal Resp normal respiratory effort and clear to auscultation bilaterally Cardio regular rate and regular rhythm GI normal to inspection, nondistended, normoactive bowel sounds Palpation: soft Extremity Extremity Narrative: Healing anterior right knee incision with no sign of acute infection. 3+ edema noted to the right calf with mild tenderness. No overlying skin change or sign of infection. Good distal pulses. Neuro oriented x3 and no sensory deficits noted Sensorium / Orientation: alert Psych mental status grossly normal Skin no rashes or lesions noted MDM MDM MDM Narrative Medical decision making narrative: Patient presents at 8 PM on a Monday evening I do not have ultrasound available for his study. He has been on his Xarelto. In light of this I will write an order for patient to return tomorrow for an ultrasound of his leg to ensure no evidence of DVT. We did discuss appropriate elevation of his leg and I recommended returning to use of his compression stocking. Return instructions are given. Discharge Plan Triage Chief Complaint: Lower Extremity Injury ED Provider: Cleo Fleming Dx/Rx/DC Orders Clinical Impression: Edema of right lower extremity Instructions: ED Peripheral Edema, Unilateral Prescriptions: No Action levothyroxine 125 mcg capsule 125 mcg capsule See Patient Comments PO DAILY Label Comments: Takes 5 a week-he skips Tuesdays and cholecalciferol (vitamin D3) 50 mcg (2,000 unit) tablet 50 mcg PO DAILY omeprazole 20 MG capsule 20 mg PO DAILY flecainide 100 mg tablet 100 mg PO Q12H Qty: 180 3RF losartan 25 mg tablet 25 mg PO DAILY Qty: 90 3RF Xarelto 20 mg tablet 20 mg PO DAILY Qty: 90 3RF Rx Instructions: must administer with evening meal metoprolol succinate 25 mg tablet extended release 24 hr 25 mg PO DAILY Qty: 90 3RF Other Ambulatory Orders: Venous Duplex US, Unilateral (Stat) Facility: [facility] - Location: [facility] Ordered By: Dr. Cleo Fleming Primary Care Provider: Inés Nichols Referrals: Inés Nichols, [facility] [Primary Care Provider] - 1 Week if not improving Disposition Disposition: Home, Self Care
[2022-06-11 20:37] VITALS: O2SAT 100
== END 2022-06-11 20:37 | disposition home or self-care (01) ==
LOC: ED 20:26
PROVIDERS: Emergency Provider Emergency Medicine; PCP Nurse Practitioner Family; Visit Provider Emergency Medicine
DX: R60.0 Localized edema (principal); I48.91 Unspecified atrial fibrillation; I25.10 Atherosclerotic heart disease of native coronary artery without angina pectoris; Z79.01 Long term (current) use of anticoagulants; M79.89 Other specified soft tissue disorders
CPT/HCPCS: 99282

== ENCOUNTER → 2022-06-12 | Outpatient (CLI) | payer OTHER, SELFPAY ==
--- NOTE | 2022-06-12 11:43 | VDLE_ITS ---
Reason For Study: LEG SWELLING RIGHT LEFT GSV is normal. CFV is compressible, spontaneous, phasic, CFV is compressible, spontaneous, phasic, competent, and demonstrates normal competent and demonstrates normal augmentation. augmentation. FV is compressible, spontaneous, phasic, competent and demonstrates normal augmentation. POP V is compressible, spontaneous, phasic, competent and demonstrates normal augmentation. T/P Trunk is compressible. PTV is compressible. RT PerV is compressible. RT SSV - Partially compressible with bright intraluminal echoes, consistent with chronic SVT. Procedure This is a venous duplex using B-mode, color flow and spectral Doppler. Exam performed in department. The exam was diagnostic. A preliminary report was called and/or faxed to ED Nurse Toby. VL/Venous Duplex US, Unilateral Interpretation Summary Deep veins of the right lower extremity are patent and compressible segmentally . There is no evidence of right lower extremity deep vein thrombosis. Valvular competence matheus ears intact within the proximal deep venous system on the right . The right great saphenous vein a ppears patent and compressible segmentally. Chronic venous changes are noted in the right small s aphenous vein, which is partially compressible and demonstrates bright intraluminal echogenicity. Ordering Physician: Cleo Fleming Referring Physician: Cleo Fleming Performed By: Chris Gonzalez RVT
== END | disposition home or self-care (01) ==
LOC: US 11:38
PROVIDERS: PCP Nurse Practitioner Family; Referring Provider Emergency Medicine; Visit Provider Emergency Medicine
DX: M79.89 Other specified soft tissue disorders (principal)
CPT/HCPCS: 93971

== ENCOUNTER → 2023-06-09 | Outpatient (CLI) | payer OTHER, SELFPAY ==
[2023-06-09 08:18] LABS: ALB/GLOB Ratio 0.9 RATIO (0.9-2.4); AST(SGOT) 28 U/L (15-37); Alanine Aminotransfer ALT/SGPT 42 U/L (16-61); Albumin, Serum 3.4 g/dL (3.2-5.0); Alkaline Phosphatase 84 U/L (45-117); Anion Gap 3 (5-15); BUN 20 mg/dL (7-18); BUN/Creat Ratio 13.4 RATIO (10-20); Calcium,Total 9.1 mg/dL (8.5-10.1); Chloride 108 mmol/L (98-107); Cholesterol 131 mg/dL (200); Creatinine, Serum 1.49 mg/dL (0.70-1.30); EST Glomerular Filtration Rate 50 mL/min (>60); Est Glom Filt Rate - Afr Amer 61 mL/min (>60); Globulin 3.8 g/dL (2.2-4.2); Glucose 98 mg/dL (74-106); High Density Lipoprotein 37 mg/dL; Potassium 3.9 mmol/L (3.5-5.1); Protein, Total 7.2 g/dL (6.4-8.2); Sodium Level 137 mmol/L (136-145); T4 Free Direct 1.21 ng/dL (0.76-1.46); Thyroid Stim Hormone (TSH) 7.02 uIU/mL (0.358-3.74); Triglycerides 54 mg/dL; Very Low Density Lipoprotein 11 mg/dL (5-40)
== END | disposition home or self-care (01) ==
PROVIDERS: PCP Nurse Practitioner Family; Referring Provider Nurse Practitioner Family; Visit Provider Nurse Practitioner Family
DX: E78.00 Pure hypercholesterolemia, unspecified (principal); E03.9 Hypothyroidism, unspecified; I10 Essential (primary) hypertension
CPT/HCPCS: 36415; 80053; 80061; 84439; 84443

== ENCOUNTER → 2023-12-06 | Outpatient (CLI) | payer OTHER, SELFPAY ==
[2023-12-06 07:24] LABS: Absolute Lymphocyte Count 2.21 X10^3/uL (0.83-4.51); Absolute Neutrophil Count 4.5 X10^3/uL (2.0-7.7); Basophil# 0.06 X10^3/uL; Basophil% 0.8 % (0-1); Eosinophil# 0.33 X10^3/uL; Eosinophils% 4.2 % (0-5); Hematocrit 46.4 % (40-54); Hemoglobin 15.3 g/dL (13.0-16.5); Lymphocyte # 2.21 X10^3/ul (0.83-4.51); Lymphocyte % 28.4 % (19-41); Mean Corpuscular Hgb 27.9 pg (27.0-32.0); Mean Corpuscular Volume 84.5 fL (80-94); Mean Platelet Vol. 9.1 fl (6.2-12.0); Monocyte# 0.62 X10^3/uL; NRBC Flagged by Analyzer 0 % (0-5); Neutrophil # 4.51 X10^3/uL (2.7-7.7); Platelet Count 182 K/mm3 (150-450); RBC Distribution Width CV 13.5 % (11.6-14.6); RBC Distribution Width SD 41.5 fl (35.1-43.9); Red Blood Count 5.49 M/mm3 (4.6-6.2); White Blood Count 7.8 K/mm3 (4.4-11.0)
[2023-12-06 07:53] LABS: AST(SGOT) 29 U/L (15-37); Alanine Aminotransfer ALT/SGPT 37 U/L (16-61); Albumin, Serum 3.4 g/dL (3.2-5.0); Alkaline Phosphatase 84 U/L (45-117); Anion Gap 7 (5-15); BUN 18 mg/dL (7-18); BUN/Creat Ratio 13.1 RATIO (10-20); Calcium,Total 8.9 mg/dL (8.5-10.1); Chloride 111 mmol/L (98-107); Cholesterol 144 mg/dL (200); Creatinine, Serum 1.37 mg/dL (0.70-1.30); EST Glomerular Filtration Rate 55 mL/min (>60); Est Glom Filt Rate - Afr Amer 67 mL/min (>60); Globulin 3.5 g/dL (2.2-4.2); Glucose 93 mg/dL (74-106); High Density Lipoprotein 35 mg/dL; Potassium 4.1 mmol/L (3.5-5.1); Protein, Total 6.9 g/dL (6.4-8.2); Sodium Level 138 mmol/L (136-145); T4 Free Direct 1.08 ng/dL (0.76-1.46); Thyroid Stim Hormone (TSH) 6.54 uIU/mL (0.358-3.74); Triglycerides 71 mg/dL; Very Low Density Lipoprotein 14 mg/dL (5-40)
[2023-12-06 08:02] LABS: Color, Urine Yellow (Yellow); Glucose, Dipstick Normal (Normal); Ketone-Dipstick Negative (Negative); Leukocyte Esterase-Dipstick Negative /ul (Negative); Nitrite-Dipstick Negative (Negative); Occult Blood-Urine Negative /ul (Negative); Protein-Dipstick 15 mg/dl (Negative); Specific Gravity, Urine 1.015 (1.002-1.030); Urine Bilirubin Dipstick Negative (Negative); Urine Clarity Clear (Clear); Urine Urobilinogen 1 mg/dl (Normal); Urine pH 6.5 (5.0 - 8.0)
== END | disposition home or self-care (01) ==
LOC: LAB 06:40
PROVIDERS: PCP Nurse Practitioner Family; Referring Provider Nurse Practitioner Family; Visit Provider Nurse Practitioner Family
DX: Z12.5 Encounter for screening for malignant neoplasm of prostate (principal); E78.00 Pure hypercholesterolemia, unspecified; N18.2 Chronic kidney disease, stage 2 (mild); I12.9 Hypertensive chronic kidney disease with stage 1 through stage 4 chronic kidney disease, or unspecified chronic kidney disease; E03.9 Hypothyroidism, unspecified
CPT/HCPCS: 36415; 80053; 80061; 81002; 84153; 84439; 84443; 85025; G0103

== ENCOUNTER → 2024-05-28 | Outpatient (CLI) | payer OTHER, SELFPAY ==
[2024-05-28 08:29] LABS: Cholesterol 155 mg/dL (200); High Density Lipoprotein 40 mg/dL; Triglycerides 69 mg/dL; Very Low Density Lipoprotein 14 mg/dL (5-40)
== END | disposition home or self-care (01) ==
LOC: LAB 07:21
PROVIDERS: PCP Nurse Practitioner Family; Referring Provider Internal Medicine Cardiovascular Disease; Visit Provider Internal Medicine Cardiovascular Disease
DX: I25.10 Atherosclerotic heart disease of native coronary artery without angina pectoris (principal)
CPT/HCPCS: 36415; 80061

== ENCOUNTER → 2024-11-06 | Outpatient (CLI) | payer OTHER, SELFPAY ==
[2024-11-06 12:55] LABS: Absolute Lymphocyte Count 2.26 X10^3/uL (0.83-4.51); Absolute Neutrophil Count 6.2 X10^3/uL (2.0-7.7); Basophil# 0.04 X10^3/uL; Basophil% 0.4 % (0-1); Eosinophil# 0.36 X10^3/uL; Eosinophils% 3.8 % (0-5); Hematocrit 46.4 % (40-54); Lymphocyte # 2.26 X10^3/ul (0.83-4.51); Lymphocyte % 23.7 % (19-41); Mean Corp Hgb Conc 34.5 g/dL (32-36); Mean Corpuscular Hgb 29.4 pg (27.0-32.0); Mean Corpuscular Volume 85.3 fL (80-94); Mean Platelet Vol. 9.3 fl (6.2-12.0); Monocyte# 0.61 X10^3/uL; Monocyte% 6.4 % (0-10); NRBC Flagged by Analyzer 0 % (0-5); Neutrophil # 6.23 X10^3/uL (2.7-7.7); Neutrophil % 65.3 % (47-70); Platelet Count 189 K/mm3 (150-450); RBC Distribution Width CV 13.6 % (11.6-14.6); Red Blood Count 5.44 M/mm3 (4.6-6.2); White Blood Count 9.5 K/mm3 (4.4-11.0)
[2024-11-06 13:42] LABS: ALB/GLOB Ratio 1.4 RATIO (0.9-2.4); AST(SGOT) 37 U/L (<=37); Alanine Aminotransfer ALT/SGPT 34 U/L (<=46); Albumin, Serum 4.3 g/dL (3.4-4.8); Alkaline Phosphatase 82 U/L (40-129); Anion Gap 11 (5-15); BUN 19 mg/dL (4-19); BUN/Creat Ratio 14.4 RATIO (10-20); Calcium,Total 9.8 mg/dL (7.6-11.0); Chloride 106 mmol/L (98-108); Creatinine, Serum 1.33 mg/dL (0.70-1.20); EST Glomerular Filtration Rate 59 (>60); Globulin 3.1 g/dL (2.2-4.2); Glucose 93 mg/dL (70-99); Potassium 4.3 mmol/L (3.3-5.1); Protein, Total 7.3 g/dL (5.9-8.4); Sodium Level 137 mmol/L (133-145); Total Bilirubin 1.16 mg/dL (0.00-1.30)
== END | disposition home or self-care (01) ==
LOC: LAB 12:09
PROVIDERS: Student in an Organized Health Care Education/Training Program; PCP Nurse Practitioner Family; Referring Provider Internal Medicine Cardiovascular Disease; Visit Provider Internal Medicine Cardiovascular Disease
DX: R53.83 Other fatigue (principal)
CPT/HCPCS: 36415; 80053; 84443; 85025

== ENCOUNTER → 2024-12-04 | Outpatient (CLI) | payer OTHER, SELFPAY ==
--- NOTE | 2024-12-04 07:39 | ECHOD_ITS ---
Reason For Study Reason For Study: ASHD/CAD Procedure This was a 2D Doppler, Color Flow transthoracic echocardiogram. Exam performed in department. Left Ventricle Normal LV size. Mild concentric left ventricular hypertrophy. The LV systolic function is normal. EF is 65 %. Stage 1 diastolic dysfunction. Right Ventricle Normal right ventricle. Atria The left atrium is mildly enlarged. Normal right atrium. Mitral Valve Mild (1+) mitral valve insufficiency. Tricuspid Valve Normal tricuspid valve. Aortic Valve Trisinus/trileaflet aortic valve. Pulmonic Valve The pulmonic valve is not well visualized. Great Vessels Normal sized aortic root. Pericardium/Pleural No pericardial effusion. MMode/2D Measurements & Calculations LVIDd: 4.6 cm IVSd: 1.2 cm Ao root diam: 3.8 cm LVIDs: 2.9 cm LVPWd: 1.2 cm LA dimension: 4.3 cm RVDd: 4.3 cm FS: 37.5 % asc Aorta Diam: 3.8 cm LAV(MOD-bp): 66.2 ml LVAd ap4: 37.3 cm2 LAV(MOD-bp) Indexed: 27.7 ml/m2 LVLd ap4: 9.7 cm LAV(MOD-sp2): 61.3 ml EDV(MOD-sp4): 118.8 ml LAV(MOD-sp4): 66.1 ml EDV(sp4-el): 121.9 ml LVAs ap4: 22.3 cm2 LVLs ap4: 8.4 cm ESV(MOD-sp4): 50.2 ml ESV(sp4-el): 50.3 ml EF(MOD-sp4): 57.7 % EF(sp4-el): 58.7 % SV(MOD-sp4): 68.6 ml SV(sp4-el): 71.5 ml LA A4 area: 21.6 cm2 SI(MOD-sp4): 28.7 ml/m2 LA dimension(2D): 4.7 cm RA A4 area: 15.5 cm2 TAPSE: 1.9 cm Time Measurements MV dec time: 0.16 sec Doppler Measurements & Calculations MV E max mele: 66.6 cm/sec Lat Peak E' Mele: 11.6 cm/sec Med Peak E' Mele: 7.3 cm/sec MV A max mele: 78.9 cm/sec E/E' lat: 5.7 E/E' med: 9.1 MV E/A: 0.85 Ao V2 max: 104.0 cm/sec LV V1 max: 74.5 cm/sec MV dec slope: 416.4 cm/sec2 Ao max P.3 mmHg LV V1 max P.2 mmHg Ao V2 mean: 73.1 cm/sec LV V1 mean P.2 mmHg Ao mean P.4 mmHg LV V1 mean: 50.4 cm/sec Ao V2 VTI: 18.8 cm LV V1 VTI: 18.9 cm AV (velocity ratio): 1.0 PA V2 max: 92.3 cm/sec PA V2 mean: 64.6 cm/sec ECHO/Echo Complete Interpretation Summary Mild concentric left ventricular hypertrophy. The LV systolic function is normal. EF is 65 %. Stage 1 diastolic dysfunction. The left atrium is mildly enlarged. Mild (1+) mitral valve insufficiency. Ordering Physician: Peyton Larson Referring Physician: Inés Nichols Performed By: Lizeth Koch RVT, RDCS and Student
[2024-12-04 07:49] LABS: ALB/GLOB Ratio 1.4 RATIO (0.9-2.4); AST(SGOT) 58 U/L (<=37); Alanine Aminotransfer ALT/SGPT 39 U/L (<=46); Albumin, Serum 4.1 g/dL (3.4-4.8); Alkaline Phosphatase 86 U/L (40-129); Anion Gap 10 (5-15); BUN 18 mg/dL (4-19); BUN/Creat Ratio 13.1 RATIO (10-20); Calcium,Total 9.8 mg/dL (7.6-11.0); Carbon Dioxide 23.7 mmol/L (21.0-32.0); Chloride 108 mmol/L (98-108); Cholesterol 160 mg/dL (<=200); Creatinine, Serum 1.34 mg/dL (0.70-1.20); EST Glomerular Filtration Rate 58 (>60); Glucose 93 mg/dL (70-99); High Density Lipoprotein 41 mg/dL; Low Density Lipoprotein Calc. 107 mg/dL; PSA,Total - Annual Screen 1.17 ng/mL (0.02-4.00); Potassium 4.4 mmol/L (3.3-5.1); Protein, Total 7.1 g/dL (5.9-8.4); Sodium Level 141 mmol/L (133-145); Total Bilirubin 0.98 mg/dL (0.00-1.30); Triglycerides 58 mg/dL; Very Low Density Lipoprotein 12 mg/dL (5-40); cholesterol:hdl ratio screen 3.88
== END | disposition home or self-care (01) ==
PROVIDERS: PCP Nurse Practitioner Family; Referring Provider Internal Medicine Cardiovascular Disease; Visit Provider Internal Medicine Cardiovascular Disease
DX: Z12.5 Encounter for screening for malignant neoplasm of prostate (principal); E78.00 Pure hypercholesterolemia, unspecified; I25.10 Atherosclerotic heart disease of native coronary artery without angina pectoris
CPT/HCPCS: 36415; 80053; 80061; 84153; 93306; G0103

== ENCOUNTER → 2025-01-15 | Outpatient (CLI) | payer MEDICARE, OTHER, SELFPAY ==
[2025-01-15 10:45] LABS: Hematocrit 44.0 % (40-54); Hemoglobin 14.9 g/dL (13.0-16.5); Immature Granulocytes Count 0.030 X10^3/uL (0.0-0.0); Mean Corp Hgb Conc 33.9 g/dL (32-36); Mean Corpuscular Volume 86.8 fL (80-94); Mean Platelet Vol. 9.7 fl (6.2-12.0); NRBC Flagged by Analyzer 0 % (0-5); Platelet Count 176 K/mm3 (150-450); RBC Distribution Width CV 13.6 % (11.6-14.6); RBC Distribution Width SD 42.5 fl (35.1-43.9); Red Blood Count 5.07 M/mm3 (4.6-6.2); White Blood Count 8.4 K/mm3 (4.4-11.0)
[2025-01-15 11:56] LABS: AST(SGOT) 34 U/L (<=37); Alanine Aminotransfer ALT/SGPT 32 U/L (<=46); Albumin, Serum 3.8 g/dL (3.4-4.8); Alkaline Phosphatase 87 U/L (40-129); Anion Gap 11 (5-15); BUN 20 mg/dL (4-19); BUN/Creat Ratio 14.8 RATIO (10-20); Calcium,Total 9.4 mg/dL (7.6-11.0); Carbon Dioxide 19.4 mmol/L (21.0-32.0); Chloride 108 mmol/L (98-108); Globulin 2.7 g/dL (2.2-4.2); Glucose 107 mg/dL (70-99); Magnesium 2.0 mg/dL (1.5-2.2); Potassium 3.7 mmol/L (3.3-5.1)
== END | disposition home or self-care (01) ==
PROVIDERS: PCP Nurse Practitioner Family; Referring Provider Nurse Practitioner Gerontology; Visit Provider Nurse Practitioner Gerontology
DX: R00.2 Palpitations (principal); I48.0 Paroxysmal atrial fibrillation
CPT/HCPCS: 36415; 80053; 83735; 84443; 85025

== ENCOUNTER → 2025-01-17 | Outpatient (CLI) | payer MEDICARE, OTHER, SELFPAY | END | disposition home or self-care (01) | LOC: PSN 08:28 | PROVIDERS: PCP Nurse Practitioner Family; Referring Provider Nurse Practitioner Gerontology; Visit Provider Nurse Practitioner Gerontology | DX: I48.0 Paroxysmal atrial fibrillation (principal); R00.2 Palpitations; Z79.899 Other long term (current) drug therapy | CPT/HCPCS: 93225; 93226 ==

== ENCOUNTER → 2025-02-17 | Outpatient (CLI) | payer MEDICARE, OTHER, SELFPAY | END | disposition home or self-care (01) | LOC: PSN 07:45 | PROVIDERS: PCP Nurse Practitioner Family; Referring Provider Nurse Practitioner Gerontology; Visit Provider Nurse Practitioner Gerontology | DX: I48.0 Paroxysmal atrial fibrillation (principal); R00.2 Palpitations | CPT/HCPCS: 93225; 93226 ==

== ENCOUNTER → 2025-04-02 | Outpatient (CLI) | payer MEDICARE, OTHER, SELFPAY ==
--- OUTSIDE RECORDS SUMMARY | 2025-04-02 06:07 | XMS RPT_ITS | CCD ---
Author Organization [facility] Care Team Providers Care Dinkey Brakeman Name Role Phone Steff Subramanian E Unavailable Madelyn Mills Unavailable Unavailable Unavailable Unavailable Jono Friend Unavailable [phone] Reagan Crews Unavailable Unavailable Unavailable Emerita Grubbs Unavailable Unavailable Slamazin, Alexa Unavailable Unavailable Carlos Alberto Miguel Unavailable Unavailable Carlos Alberto Miguel Unavailable Unavailable Carlos Alberto Carrillo Unavailable Unavailable Meredith Biggs Unavailable Unavailable Steff Subramanian CNP Unavailable Dr. Jono Friend Unavailable Dr. Reagan Crews Unavailable [phone] Carlos Alberto Carrillo LPN Unavailable Unavailable Unavailable Unavailable Miya Parra Unavailable MORIS SHERMAN [facility] Primary Care Physician Steff Subramanian Unavailable Roman Nichols CNP Unavailable [phone] Steff Subramanian Unavailable Slarb APPLICATION TESTER, Alexa Unavailable Unavailable Roman Nichols CNP Unavailable [phone] Kimberlyn Swain MA Unavailable Unavailable ROMAN [place] Primary Care Physician MIYA PARRA MD Attending Unavailable SIMONE BERTRAND ROMAN [facility] Care Unavail able MIYA PARRA MD Attending Unavailable SIMONE BERTRAND ROMAN [facility] Care Unavail able MIYA PARRA MD Attending Unavailable MORIS SHERMAN [facility] Unavailable MIYA PARRA MD Attending Unavailable MORIS SHERMAN STEFF Primary Care Unavailable MIYA PARRA MD Attending Unavailable SIMONE FOUNDER / CEO-COM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, ROMAN Primary Care Unavail able FIDEL WASSERMAN, MIYA Roy Attending Unavailable CIES[employer] SEASONAL SALES ASSOCIATE, [facility] Primary Care Unavailable FIDEL WASSERMAN, MIYA Roy Attending Unavailable [employer] SEASONAL SALES ASSOCIATE, [facility] Primary Care Unavailable Ciesa MILITARY COOK, MILITARY COOK-C [facility] Primary Care Provider Ciharshada MILITARY COOK, MILITARY COOK-C [facility] Referring Provider Simran LUGO, BRITTNEY Leiva Attending Provider [facility], [facility] Referring Unavailable Simone COM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, Roman Attending Unavailable Simone COM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, Roman Consulting Unavailable Peyton Rucker MD Unavailable Simone COM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, Roman Primary Care Provider PEYTON RUCKER Referring Unavailable DANNY RAMOS Attending Unavailable SIMONE, ROMAN Primary Care Unavailable Simone MILITARY COOK-C, Roman Primary Care Provider Simone MILITARY COOK-C, Roman Referring Provider Dr. Peyton uRcker MD Attending Provider Dr. Peyton Rucker MD Referring Provider Levy BARAHONA-CHodan Attending Provider Levy BARAHONA-CHodan Referring Provider NeoPeyton ross Attending Unavailable Simone, Roman Primary Care Unavailable Neo, Peyton Referring Unavailable Levy MILITARY COOK, Hodan Referring Unavailable Simone, Roman Primary Care Unavailable Levy MILITARY COOK, Hodan Attending Unavailable Leyv MILITARY COOK, Hodan Referring Unavailable Simone, Roman Primary Care Unavailable Levy MILITARY COOK, Hodan Attending Unavailable Simone, Roman Primary Care Unavailable Simone, Roman Referring Unavailable Neo, Peyton Attending Unavailable Simone, Roman Primary Care Unavailable Simone, Roman Referring Unavailable Neo, Peyton Attending Unavailable Levy MILITARY COOK, Hodan Referring Unavailable George Mcwilliams Attending Unavailable Simone, Roman Primary Care Unavailable Levy MILITARY COOK, Hodan Referring Unavailable Simone, Roman Primary Care Unavailable Levy MILITARY COOK, Hodan Attending Unavailable Simone, Roman Primary Care Unavailable Neo, Peyton Attending Unavailable Neo, Peyton Referring Unavailable Simone, Roman Primary Care Unavailable Neo, Peyton Attending Unavailable Neo, Peyton Referring Unavailable Simone Roman Primary Care Unavailable Peyton Rucker Attending Unavailable Allergies Allergy Classification Reported Allergen(s) Allergy Type Date of Onset Reaction(s) Facility (10 sources) Ibuprofen; Translations: [ibuprofen] Drug Allergy 4 Itching [facility] (10 sources) atorvastatin; Translations: [ATORVASTATIN] Drug Allergy 2 Other: See Comments [facility] (1 source) atorvastatin Drug Allergy 5 [facility] (1 source) Ibuprofen Drug Allergy 5 [facility] Medications Current Medications Medication Drug Class(es) Dates Sig (Normalized) Sig (Original) cholecalciferol 0.05 mg oral tablet (8 sources) Vitamin D Start: 07-30-2021 take 1 tablet by mouth once daily Cholecalciferol (Vitamin D3) 50 mcg (2,000 unit) tablet Active 50 ug PO DAILY July 30, 2021 1:00am flecainide acetate 100 mg oral tablet (20 sources) Antiarrhythmic Start: 10-05-2020 take 1 tablet by mouth twice daily Flecainide Acetate 50 MG Oral Tablet 1 (one) Tablet bid for 0 days Quantity: 60 {Tablet} Refills: 0 Ordered: 05-Oct-2020 Steff Subramanian CNP, CNP, Mary E Start : 05-Oct-2020 Active Comments: Per Dr. Downs Start: 10-05-2020 take 1 tablet by aurora th twice daily Flecainide Acetate 50 MG Oral Tablet 1 (one) Tablet bid for 0 days Quantity: 60 {Tablet} Refills: 0 Ordered: 05-Oct-2020 Steff Subramanian CNP, CNP, Mary E Start : 05-Oct-2020 Active Comments: Per Dr. Downs Start: 08-26-2020 End: 02-04-2025 take 1 tablet by mouth every twelve hours Flecainide 100 mg tablet Active 100 mg PO Q12H 180 February 04, 2025 1:35pm take 1 tablet by aurora th twice daily flecainide (TAMBOCOR) 100 mg tablet Take 100 mg by mouth two times a day. 0 Active Comment on above: Per Dr. Downs Take 100 mg by mouth two times a day. losartan potassium 25 mg oral tablet (20 sources) Angiotensin 2 Receptor Jose A Start: 02-02-2018 End: 02-04-2025 take 1 tablet by mouth once daily Losartan 25 mg tablet Active 25 mg PO DAILY 90 February 04, 2025 1:35pm Comment on above: Take 25 mg by mouth once daily. 24 hr metoprolol succinate 25 mg extended release oral tablet (20 sources) beta-Adrenergic Jose A Start: 02-20-2025 take 1 tablet by mouth once daily Metoprolol Succinate 25 mg tablet extended release 24 hr Active 25 mg PO DAILY 90 February 20, 2025 3:08pm Start: 08-17-2021 Metoprolol Suc cinate ER 25 mg oral TABLET extended release Dose : 25 mg = 1 tab(s), Oral, qDay, # 90 tab(s), 0 Refill(s) Start Date: 08/17/21 Status: Ordered Start: 08-03-2020 End: 11-06-2024 Metoprolol Succinate 25 mg t ablet extended release 24 hr Discontinued 0 .ROUTE .COMPLEX 90 February 12, 2024 8:10am November 06, 2024 3:47pm TAKE 1 TABLET DAILY Start: 03-07-2019 End: 08-03-2020 take 2 tablets by mouth once daily Metoprolol Succinate 25 mg tablet extended release 24 hr Discontinued 12.5 mg PO DAILY 45 February 18, 2020 10:35am August 03, 2020 1:31pm Start: 03-07-2019 End: 08-03-2020 take 12.5 mg by mouth once daily Metoprolol Succinate Discontinued 12.5 MG PO DAILY February 18, 2020 9:35am August 03, 2020 12:31pm Start: 02-20-2019 take 0.5 tablet by m outh once daily Metoprolol Succinate ER 25 MG Oral Tablet Extended Release 24 Hour 1/2 (one half) Tablet qd for 30 days Quantity: 30 {Tablet} Refills: 3 Ordered: 20-Feb-2019 Steff Subramanian Start : 20-Feb-2019 Active Start: 01-11-2018 End: 03-07-2019 take 1 tablet by mouth once daily Metoprolol Succinate 25 mg tablet extended release 24 hr Discontinued 25 mg PO DAILY 90 March 04, 2019 9:33am March 07, 2019 2:14pm Comment on above: Take 25 mg by mouth once daily. omeprazole 20 mg oral tablet (20 sources) Proton Pump Inhibitor Start: 08-17-2021 take 1 dose by mouth once daily omeprazole Dose : 20 mg =, Oral, qDay, 0 Refill(s) Start Date: 08/17/21 Status: Ordered Start: 02-16-2018 PriLOSEC OTC 2 0 MG Oral Tablet Delayed Release 1 prn for 0 days Refills: 0 Ordered: 16-Feb-2018 Steff Subramanian Start : 16-Feb-2018 Active Start: 02-01-2018 End: 05-21-2018 take 1 capsule by mouth once daily Omeprazole 20 MG capsule Active 20 mg PO DAILY February 01, 2018 12:00am Comment on above: Take 20 mg by mouth once daily. Vitamin D3 (4 sources) Start: 08-17-2021 take 1 dose by mouth once daily Vitamin D3 Dose : 125 mcg =, Oral, qDay, 0 Refill(s) Start Date: 08/17/21 Status: Ordered Completed/Discontinued Medications Medication Drug Class(es) Dates Sig (Normalized) Sig (Original) acetaminophen 325 mg oral tablet (20 sources) Start: 06-11-2021 take 1 tablet by mouth every eight hours as needed Tylenol 325 MG Oral Tablet 1 (one) Tablet q8hrs prn for 0 days Quantity: 30 {Tablet} Refills: 0 Ordered: 14-Jul-2021 Carlos Alberto Carrillo LPN Start : 11-Jun-2021 Active 200 actuat albuterol 0.09 mg/actuat dry powder inhaler (20 sources) beta2-Adrenergic Agonist Start: 02-08-2019 End: 02-20-2019 take 2 puff(s) by inhalation three times daily ProAir RespiClick 108 (90 Base) MCG/ACT Inhalation Aerosol Powder Breath Activated 2 (two) Puff tid for 0 days Quantity: 1 {Inhaler} Refills: 0 Ordered: 20-Feb-2019 Carlos Alberto Carrillo LPN Start : 08-Feb-2019 End : 20-Feb-2019 Inactive Start: 01-22-2018 End: 02-16-2018 Albuterol Sulfate (Proair Hf a) 90 mcg/actuation HFA aerosol inhaler Discontinued 2 NMA INHALATION EVERY 6 HOURS as needed for Wheezing January 22, 2018 12:00am February 16, 2018 11:35am Start: 01-22-2018 End: 02-16-2018 take 1 puff(s) by inhalation every six hours Albuterol Sulfate (Proair Hfa) 90 mcg/actuation HFA aerosol inhaler Discontinued 2 PUFF INHALATION EVERY 6 HOURS January 21, 2018 11:00pm February 16, 2018 10:35am Start: 01-02-2018 End: 02-16-2018 take 1-2 puff(s) by inhalation every four to six hours as needed ProAir HFA 108 (90 Base) MCG/ACT Inhalation Aerosol Solution 1-2 Puff Q 4-6 hours prn for 0 days Quantity: 1 {Inhaler} Refills: 0 Ordered: 16-Feb-2018 Madelyn Mills Start : 02-Jan-2018 End : 16-Feb-2018 Discontinued Start: 01-02-2018 End: 02-16-2018 take 1-2 puff(s) by inhalation every four to six hours as needed ProAir HFA 108 (90 Base) MCG/ACT Inhalation Aerosol Solution 1-2 Puff Q 4-6 hours prn for 0 days Quantity: 1 {Inhaler} Refills: 0 Ordered: 16-Feb-2018 Madelyn Mills Start : 02-Jan-2018 End : 16-Feb-2018 Discontinued Start: 08-06-2017 take 2 puff(s) by in halation every four hours as needed for wheezing albuterol HFA (PROVENTIL HFA, VENTOLIN HFA) 90 mcg/actuation inhaler Indications: Acute bronchitis, unspecified organism Inhale 2 Puffs as instructed every 4 hours as needed for Wheezing/Shortness of Breath. 1 Inhaler 0 08/06/2017 Active Start: 10-01-2007 ALBUTEROL SULF ATE HFA, 108 (90 Base)MCG/ACT (Inhalation Aerosol Solution) 2 (two) Aerosol Soln qid prn for 0 days Quantity: 1 {Aerosol_Soln} Refills: 3 Ordered: 01-Oct-2007 Sandra Velásquez Start : 01-Oct-2007 Inactive Start: 10-01-2007 ALBUTEROL SULF ATE HFA, 108 (90 Base)MCG/ACT (Inhalation Aerosol Solution) 2 (two) Aerosol Soln qid prn for 0 days Quantity: 1 {Aerosol_Soln} Refills: 3 Ordered: 01-Oct-2007 Sandra Velásquez Start : 01-Oct-2007 Inactive Start: 10-01-2007 ALBUTEROL SULF ATE HFA, 108 (90 Base)MCG/ACT (Inhalation Aerosol Solution) 2 (two) Aerosol Soln qid prn for 0 days Quantity: 1 {Aerosol_Soln} Refills: 3 Ordered: 01-Oct-2007 Sandra Velásquez Start : 01-Oct-2007 Inactive Comment on above: Inhale 2 Puffs as in structed every 4 hours as needed for Wheezing/Shortness of Breath. ALBUTEROL SULFATE HFA, 108 (90 Base)MCG/ACT (Inhalation Aerosol Solution) (7 sources) Start: 008 ALBUTEROL SULFATE HFA, 108 (90 Base)MCG/ACT (Inhalation Aerosol Solution) 2 (two) Aerosol Soln qid prn for 0 days Quantity: 1 {Aerosol_Soln} Refills: 3 Ordered: 01-Oct-2007 Sandra Velásquez Start : 01-Oct-2007 Inactive amiodarone hydrochloride 200 mg oral tablet (20 sources) Antiarrhythmic Start: 021 End: 021 take 1 tablet by mouth once daily Amiodarone 200 mg tablet Discontinued 200 mg PO DAILY 30 August 26, 2020 1:00am August 26, 2020 2:14pm Start: 05-24-2019 End: 06-08-2020 take 1 tablet by mouth every other day Amiodarone 200 mg tablet Discontinued 200 mg PO .COMPLEX 45 3 April 22, 2020 4:10pm 2020 12:21pm 200 mg PO every other day; Start: 02-02-2018 End: 09-19-2019 take 1 tablet by mouth once daily Amiodarone 200 mg tablet Discontinued 200 mg PO DAILY 90 3 May 10, 2019 12:43pm September 19, 2019 9:53am amoxicillin 875 mg / clavulanate 125 mg oral tablet (20 sources) Penicillin-class Antibacterial Start: 08-21-2023 End: 12-26-2023 Amoxicillin-Pot Clavulanate 875-125 mg tablet Discontinued 1 {tbl} PO TWICE A DAY 20 0 August 21, 2023 1:00am December 26, 2023 9:19am Start: 02-11-2019 End: 02-16-2019 take 2 tablets by mouth every twelve hours Amoxicillin-Pot Clavulanate ER 1000-62.5 MG Oral Tablet Extended Release 12 Hour 2 (two) Tablet q12hr for 5 days Quantity: 20 {Tablet} Refills: 0 Ordered: 11-Feb-2019 Steff Subramanian Start : 11-Feb-2019 End : 16-Feb-2019 Inactive Start: 01-01-2018 End: 01-15-2018 take 1 tablet by mouth twice daily Amoxicillin-Pot Clavulanate 875-125 MG Oral Tablet 1 (one) Tablet PO BID for 14 days Quantity: 28 {Tablet} Refills: 0 Ordered: 01-Jan-2018 Hodan Lockett Start : 01-Jan-2018 End : 15-Jan-2018 Inactive aspirin 81 mg delayed release oral tablet (20 sources) Platelet Aggregation Inhibitor, Nonsteroidal Anti-inflammatory Drug Start: 02-16-2018 End: 03-07-2019 take 1 tablet by mouth once daily Aspirin (Adult Aspirin Regimen) 81 mg tablet,delayed release (DR/EC) Discontinued 81 mg PO daily 90 3 April 30, 2018 2:12pm March 07, 2019 2:13pm Start: 02-02-2018 End: 02-14-2018 take 1 tablet by mouth once daily Aspirin 81 MG tablet Discontinued 81 mg PO DAILY@0800 0 February 02, 2018 12:00am February 14, 2018 6:42pm take 1 mg by mouth o nce daily at bedtime Aspirin 81 MG Oral Tablet qhs (81 MG) Inactive atorvastatin 80 mg oral tablet (20 sources) HMG-CoA Reductase Inhibitor Start: 08-22-2018 End: 05-24-2019 take 0.5 tablet by mouth once daily Lipitor 80 MG Oral Tablet 1/2 Tablet daily for 30 days Quantity: 30 {Tablet} Refills: 4 Ordered: 24-May-2019 Carlos Alberto Carrillo LPN Start : 22-Aug-2018 End : 24-May-2019 Discontinued Start: 08-10-2018 End: 03-07-2019 Atorvastatin 80 mg tablet Discontinued 40 mg PO AT BEDTIME August 10, 2018 11:42am March 07, 2019 2:13pm cut in half d/t LFT's by Steff Subramanian Start: 08-10-2018 End: 03-07-2019 take 40 mg by mouth at bedtime Atorvastatin Discontinu ed 40 MG PO AT BEDTIME August 10, 2018 10:42am March 07, 2019 1:13pm Start: 02-02-2018 End: 08-10-2018 take 1 tablet by mouth at bedtime Atorvastatin 80 mg tablet Discontinued 80 mg PO AT BEDTIME 90 3 March 20, 2018 3:00pm August 10, 2018 11:43am azithromycin 250 mg oral tablet (1 source) Macrolide Antimicrobial Start: 08-06-2017 End: 09-06-2023 azithromycin (ZITHROMAX Z-LILLI) 250 mg tablet Indications: Acute bronchitis, unspecified organism Take 2 tablets today then one tablet daily for 4 days. 6 tablet 0 08/06/2017 09/06/2023 Discontinued (Other) Comment on above: Take 2 tablets today then one tablet daily for 4 days. benzonatate 200 mg oral capsule (5 sources) Non-narcotic Antitussive Start: 08-21-2023 End: 12-26-2023 take 1 capsule by mouth three times daily as needed for cough Benzonatate 200 mg capsule Discontinued 200 mg PO THREE TIMES A DAY as needed for cough 14 0 August 21, 2023 1:00am December 26, 2023 9:19am cholecalciferol, vitamin D3, (D3-50 CHOLECALCIFEROL ORAL) (1 source) take 50 ug by mouth once daily cholecalciferol, vitamin D3, (D3-50 CHOLECALCIFEROL ORAL) Take 50 mcg by mouth once daily. 0 Active Comment on above: Take 50 mcg by mouth once daily. chondroitin sulfates 400 mg oral capsule (20 sources) End: 05-21-2018 take 1 mg by mouth once daily Chondroitin Sulfate 400 MG Oral Capsule daily (400 MG) End : 21-May-2018 Discontinued crisaborole 0.02 mg/mg topical ointment (20 sources) Start: 05-21-2018 End: 08-22-2018 Eucrisa 2 % External Ointment 1 (one) Application bid for 0 days Quantity: 1 {Applicator} Refills: 0 Ordered: 22-Aug-2018 Madelyn Mills Start : 21-May-2018 End : 22-Aug-2018 Discontinued doxycycline monohydrate 100 mg oral tablet (20 sources) Tetracycline-class Drug Start: 02-08-2019 End: 02-18-2019 take 1 tablet by mouth twice daily Doxycycline Monohydrate 100 MG Oral Tablet 1 (one) Tablet bid for 10 days Quantity: 20 {Tablet} Refills: 0 Ordered: 08-Feb-2019 Steff Subramanian Start : 08-Feb-2019 End : 18-Feb-2019 Inactive Eovscqni-Qut-Dstoe-H [id number] (Ycerhb-Zehmp-Jsz (With Antiox)) 500-500-66.7 mg tablet (5 sources) Start: 02-16-2018 End: 07-30-2021 Knlsjngx-Qsi-Zabju-H [id number] (Fmttbw-Lkcrr-Imv (With Antiox)) 500-500-66.7 mg tablet Discontinued {tbl} PO 0 February 16, 2018 12:00am July 30, 2021 3:56pm Start: 02-16-2018 End: 07-30-2021 Ycugbzgv-Icm-Tuzvw-Ydf923-Sy al (Pfbhoq-Aqxbb-Uhb (With Antiox)) 500-500-66.7 mg tablet Discontinued {tbl} PO February 16, 2018 12:00am July 30, 2021 3:56pm glucosamine sulfate 500 mg oral capsule (20 sources) take 1 mg by mouth once daily Glucosamine 500 MG Oral Capsule daily (500 MG) Inactive vqsycwtsalh-lvn-vljya roit-hrb 149-hyalur 500 mg-500 mg-66.7 mg tablet (3 sources) Start: 02-17-20 End: 07-30-19 ldqnnsssuik-ryu-ahac droit-hrb 149-hyalur 500 mg-500 mg-66.7 mg tablet Discontinued TABLET PO February 15, 2018 11:00pm July 30, 2021 2:56pm Iron Folic BC 500 Oral Tablet (20 sources) Start: 02-17-20 End: 05-21-20 18 take 10 tablets by mouth once daily Iron Folic BC 500 Oral Tablet daily for 0 days Refills: 0 Ordered: 16-Feb-2018 Madelyn Mills Start : 16-Feb-2018 End : 21-May-2018 Discontinued Comments: This order discontinued per [facility]. Comment on above: This order discontin ued per [facility]. levoFLOXacin 500 mg oral tablet (20 sources) Quinolone Antimicrobial Start: 10-01-19 08 End: 08-12-19 09 take 1 tablet by mouth once daily LEVAQUIN, 500MG (Oral Tablet) 1 Tablet qd for 0 days Quantity: 14 {Tablet} Refills: 0 Ordered: 01-Oct-2007 DEVON Rosario LPN Start : 01-Oct-2007 End : 12-Aug-2008 Inactive levothyroxine sodium 0.125 mg oral tablet (20 sources) l-Thyroxine Start: 07-04-20 SYNTHROID 125 mcg tablet Start: 02-07-2023 take 1 tablet by aurora th once daily Synthroid 125 mcg oral tablet 1 (one) Tablet daily except none on Monday for 0 days Quantity: 90 {Tablet} Refills: 3 Ordered: 07-Feb-2023 Roman Nichols CNP Start : 07-Feb-2023 Active Comments: Mail order. [facility] Start: 02-25-2022 take 1 tablet by aurora th once daily Synthroid 125 MCG Oral Tablet 1 (one) Tablet daily except none on Monday for 0 days Quantity: 90 {Tablet} Refills: 3 Ordered: 25-Feb-2022 Roman Nichols CNP Start : 25-Feb-2022 Active Comments: Mail order. [facility] Start: 01-14-2022 take 1 tablet by aurora th once daily Synthroid 125 MCG Oral Tablet 1 (one) Tablet daily except none on Monday for 0 days Quantity: 90 {Tablet} Refills: 3 Ordered: 14-Jan-2022 Roman Nichols CNP Start : 14-Jan-2022 Active Comments: Mail order. [facility] Start: 08-17-2021 Synthroid 125 mcg (0.125 mg) oral tablet Dose : 125 mcg = 1 tab(s), Oral, qDay, # 30 tab(s), 0 Refill(s) Start Date: 08/17/21 Status: Ordered Start: 07-14-2021 take 1 tablet by aurora th once daily Synthroid 125 MCG Oral Tablet 1 (one) Tablet daily for 0 days Quantity: 90 {Tablet} Refills: 3 Ordered: 14-Jul-2021 Steff Subramanian Start : 14-Jul-2021 Active Comments: Mail order. [facility] Start: 12-22-2020 End: 06-11-2021 take 1 tablet by mouth once daily Levothyroxine Sodium 125 MCG Oral Tablet 1 (one) Tablet daily on MWF for 90 days Quantity: 90 {Tablet} Refills: 3 Ordered: 11-Jun-2021 Carlos Alberto Carrillo LPN Start : 22-Dec-2020 End : 11-Jun-2021 Inactive Comments: levothyroxine 125mcg q MWF Start: 11-16-2020 take 1 tablet by aurora th once daily Levothyroxine Sodium 125 MCG Oral Tablet 1 (one) Tablet daily except for tuesdays for 90 days Quantity: 90 {Tablet} Refills: 3 Ordered: 16-Nov-2020 Moris NOWAK Zenobia Ciharshadnorris NOWAKSteff Start : 16-Nov-2020 Active Comments: Mail order. Start: 11-16-2020 take 1 tablet by aurora th once daily Levothyroxine Sodium 125 MCG Oral Tablet 1 (one) Tablet daily except for tuesdays for 90 days Quantity: 90 {Tablet} Refills: 3 Ordered: 16-Nov-2020 Moris NOWAK Steff Flynn Mendyharshadnorris NOWAK Steff Flynn Start : 16-Nov-2020 Active Comments: daily except for tuesdays Start: 10-05-2020 take 1 tablet by aurora th once daily Levothyroxine Sodium 125 MCG Oral Tablet 1 (one) Tablet daily for 90 days Quantity: 90 {Tablet} Refills: 3 Ordered: 05-Oct-2020 Moris NOWAK Zenobia Ciharshadnorris NOWAK Steff Flynn Start : 05-Oct-2020 Active Start: 01-31-2020 take 1 tablet by aurora th once daily, then take 1.5 tablets by mouth Levothyroxine Sodium 125 MCG Oral Tablet 1 (one) Tablet daily and 1.5 tablets on sundays and wednesdays for 30 days Quantity: 90 {Tablet} Refills: 3 Ordered: 08-Jun-2020 Moris NOWAK Zenobia Cimatthew ELIU Steff Flynn Start : 08-Jun-2020 Active Start: 02-07-2019 take 1 tablet by aurora th once daily, then take 1.5 tablets by mouth Levothyroxine Sodium 125 MCG Oral Tablet 1 (one) Tablet daily and 1.5 tablets on sundays and wednesdays for 30 days Quantity: 90 {Tablet} Refills: 3 Ordered: 07-Feb-2019 Moris NOWAK Zenobia Moris ELIU Steff Flynn Start : 07-Feb-2019 Active Start: 05-22-2018 take 1 tablet by aurora th once daily, then take 1.5 tablets by mouth Levothyroxine Sodium 125 MCG Oral Tablet 1 (one) Tablet daily and 1.5 tablets on sundays and wednesdays for 30 days Quantity: 90 {Tablet} Refills: 3 Ordered: 22-May-2018 Moris ELIUSteff ELIU, Steff Flynn Start : 22-May-2018 Active Start: 04-18-2018 End: 07-30-2021 take 1.5 tablets by mouth once Levothyroxine 125 mcg c apsule Discontinued 125 ug PO .COMPLEX March 11, 2021 8:47am July 30, 2021 3:57pm 125 mcg PO daily, take 1.5 tablets on Sundays and per Steff Subramanian; Start: 01-29-2018 End: 09-06-2023 take 1 capsule by mouth once daily Levothyroxine 125 mcg capsule Discontinued 125 ug PO DAILY July 30, 2021 3:57pm March 16, 2022 10:27am Comment on above: Mail order. daily except for mon levothyroxine 125mcg q MWF Mail order. SEUN chiang Take 125 mcg by mout h daily before breakfast. lidocaine 0.05 mg/mg medicated patch (4 sources) Antiarrhythmic, Amide Local Anesthetic Start: Lidoderm 5 % topical patch 1 package per package directions;leave on most painful area for up to 12 hrs for 0 days Quantity: 30 {Patch} Refills: 1 Ordered: 29-Jul-2022 Kimberlyn Swain MA Start : 29-Jul-2022 Active pimecrolimus 10 mg/ml topical cream (20 sources) Calcineurin Inhibitor Immunosuppressant Start: 019 End: Elidel 1 % External Cream 1 (one) Application bid for 0 days Quantity: 1 {Tube} Refills: 0 Ordered: 24-May-2019 Carlos Alberto Carrillo LPN Start : 22-Aug-2018 End : 24-May-2019 Inactive predniSONE 20 mg oral tablet (4 sources) Start: 023 End: 023 take 2 tablets by mouth once daily predniSONE 20 mg oral tablet 2 Tablet daily for 5 days Quantity: 10 {Tablet} Refills: 0 Ordered: 29-Jul-2022 Roman Nichols CNP Start : 29-Jul-2022 End : 03-Aug-2022 Inactive rivaroxaban 20 mg oral tablet (20 sources) Factor Xa Inhibitor Start: 021 End: 06-27-2 024 take 1 tablet by mouth once daily at dinner Rivaroxaban (Xarelto) 20 mg tablet Discontinued 20 mg PO DAILY 90 3 January 04, 2023 9:06am January 04, 2024 7:59am must administer with evening meal Start: 01-11-2018 End: 06-08-2020 take 1 tablet by mouth once daily Rivaroxaban 20 mg tablet Discontinued 20 mg PO DAILY 90 February 18, 2020 10:36am 2020 12:21pm restart on 02/05/2018 Comment on above: Take 20 mg by mouth daily with dinner. sulfamethoxazole 800 mg / trimethoprim 160 mg oral tablet (20 sources) Dihydrofolate Reductase Inhibitor Antibacterial, Sulfonamide Antimicrobial Start: 04-15-20 End: 04-22-20 take 1 tablet by mouth twice daily BACTRIM DS, 800-160MG (Oral Tablet) 1 (one) Tablet bID for 7 days Quantity: 14 {Tablet} Refills: 0 Ordered: 15-Apr-2009 Steff Subramanian Start : 15-Apr-2009 End : 22-Apr-2009 Inactive terbinafine 250 mg oral tablet (20 sources) Allylamine Antifungal Start: 09-18-19 08 End: 08-12-19 09 LAMISIL, 250MG (Oral Tablet) 2 (two) Tablet daily first week of month for 4 months for 0 days Refills: 0 Ordered: 18-Sep-2007 DEVON Rosario LPN Start : 18-Sep-2007 End : 12-Aug-2008 Inactive tiZANidine 4 mg oral tablet (4 sources) Central alpha-2 Adrenergic Agonist Start: 08-10-19 take 3 tablets by mouth every twenty-four hours tiZANidine 4 mg oral tablet 1 Tablet every 6 to 8 hours;muscle spasticity;do not exceed 3 doses per 24 hrs for 0 days Quantity: 45 {Tablet} Refills: 1 Ordered: 10-Aug-2022 Roman Nichols CNP Start : 10-Aug-2022 Active Start: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 [address] Globulin (S) [Mass/Vol] 2.7 g/dL Normal 2.2-4.2 [facility] Comment on above: Performed By: #### L 501.5200, L501.9520, L500.4050, L100.0100 ####[facility] [address] [place], [address] Glucose [Mass/Vol] 107 mg/dL High 70-99 [facility] Comment on above: Performed By: #### L 501.5200, L501.9520, L500.4050, L100.0100 ####[facility] [address] [place], [address] Potassium [Moles/Vol] 3.7 mmol/L Normal 3.3-5.1 [facility] Comment on above: Performed By: #### L 501.5200, L501.9520, L500.4050, L100.0100 ####[facility] [address] [place], [address] Sodium [Moles/Vol] 138 mmol/L Normal 133-145 [facility] Comment on above: Performed By: #### L 501.5200, L501.9520, L500.4050, L100.0100 ####[facility] [address] [place], [address] T PROT 6.4 g/dL Normal 5.9-8.4 [facility] Comment on above: Performed By: #### L 501.5200, L501.9520, L500.4050, L100.0100 ####[facility] [address] [place], [address] Urea nitrogen [Mass/Vol] 20 mg/dL High 4-19 [facility] Comment on above: Performed By: #### L 501.5200, L501.9520, L500.4050, L100.0100 ####[facility] [address] [place], [address] Eosinophil percentageOrdered By: Hodan Lockett on 01-15-2025 Eosinophils/100 WBC (Bld) 2.3 % 0-5 [facility] Erythrocyte distribution wid th ratioOrdered By: Hodan Lockett on 01-15-2025 Erythrocyte distribution width (RBC) [Ratio] 13.6 % 11.6-14.6 [facility] Erythrocyte distribution wid th standard deviationOrdered By: Hodan Lockett on 01-15-2025 Erythrocyte distribution width (RBC) [Ratio] 42.5 fl 35.1-43.9 [facility] Glomerular filtration rate ( GFR) estimation/1.73 sq m using serum, plasma, or whole bOrdered By: Hodan Lockett on 01-15-2025 GFR/1.73 sq M.predicted among non-blacks MDRD (S/P/Bld) [Vol rate/Area] 59 mL/min/{1.73_m2} Low >60 [facility] Comment on above: mL/min/1.73m2 CKD-EP I Creatinine Equation (2020) Hematocrit Auto (Bld) [Volum e fraction]Ordered By: Hodan Lockett on 01-15-2025 Hematocrit (Bld) [Volume fraction] 44.0 % 40-54 [facility] Hemoglobin measurementOrdere d By: Hodan Lockett on 01-15-2025 Hemoglobin (Bld) [Mass/Vol] 14.9 g/dL 13.0-16.5 [facility] Immature granulocytes/100 WB C Auto (Bld)Ordered By: Hodan Lockett on 01-15-2025 Immature granulocytes/100 WBC (Bld) 0.400 % 0.0-0.9 [facility] Comment on above: IG% - Immature Granu locytes (promyelocytes, myelocytes and metamyelocytes) > 1% indicates that a LEFT SHIFT is Present. Laboratory - Chemistry and C hemistry - challengeOrdered By: Hodan Lockett on 01-15-2025 AST [Catalytic activity/Vol] 34 U/L <38 [facility] MCV (mean corpuscular volume ) determinationOrdered By: Hodan Lockett on 01-15-2025 MCV (RBC) [Entitic vol] 86.8 fL 80-94 [facility] Magnesiumon 01-15-2025 Magnesium [Mass/Vol] 2.0 mg/dL Normal 1.5-2.2 [facility] Comment on above: Performed By: #### L 501.5200, L501.9520, L500.4050, L100.0100 ####[facility] [address] [place], [address] Magnesium measurement (mass/ volume)Ordered By: Hodan Lockett on 01-15-2025 Magnesium (Unsp spec) [Mass/Vol] 2.0 mg/dL 1.5-2.2 [facility] Mean corpuscular hemoglobin (MCH) determinationOrdered By: Hodan Lockett on 01-15-2025 MCH (RBC) [Entitic mass] 29.4 pg 27.0-32.0 [facility] Mean corpuscular hemoglobin concentration (MCHC) determinationOrdered By: Hodan Lockett on 01-15-2025 MCHC (RBC) [Mass/Vol] 33.9 g/dL 32-36 [facility] Mean platelet volume determi nationOrdered By: Hodan Lockett on 01-15-2025 Platelet mean volume (Bld) [Entitic vol] 9.7 fL 6.2-12.0 [facility] Monocyte percentageOrdered B y: Hodan Lockett on 01-15-2025 Monocytes/100 WBC (Bld) 6.6 % 0-10 [facility] Neutrophil percentageOrdered By: Hodan Lockett on 01-15-2025 Neutrophils/100 WBC (Bld) 73.3 % High 47-70 [facility] Nucleated red blood cell per centageOrdered By: Hodan Lockett on 01-15-2025 Nucleated RBC/100 WBC (Bld) [Ratio] 0 % 0-5 [facility] Platelet countOrdered By: Cayetano Lockett on 01-15-2025 Platelets (Bld) [#/Vol] 176 10*3/uL 150-450 [facility] Potassium measurement (mass/ volume)Ordered By: Hodan Lockett on 01-15-2025 Potassium (Unsp spec) [Mass/Vol] 3.7 mmol/L 3.3-5.1 [facility] RBC Auto (Bld) [#/Vol]Ordere d By: Hodan Lockett on 01-15-2025 RBC (Bld) [#/Vol] 5.07 10*6/uL 4.6-6.2 [facility] Serum creatinine measurement (mass/volume)Ordered By: Hodan Lockett on 01-15-2025 Creatinine [Mass/Vol] 1.33 mg/dL High 0.70-1.20 [facility] Serum globulin measurementOr dered By: Hodan Lockett on 01-15-2025 Globulin (S) [Mass/Vol] 2.7 g/dL 2.2-4.2 [facility] Serum glucose measurement (m ass/volume)Ordered By: Hodan Lockett on 01-15-2025 Glucose [Mass/Vol] 107 mg/dL High 70-99 [facility] Serum or plasma alanine terry otransferase (ALT) measurementOrdered By: Hodan Lockett on 01-15-2025 ALT [Catalytic activity/Vol] 32 U/L <47 [facility] Serum or plasma albumin erich urement (mass/volume)Ordered By: Hodan Lockett on 01-15-2025 Albumin [Mass/Vol] 3.8 g/dL 3.4-4.8 [facility] Serum or plasma albumin/glob ulin mass ratioOrdered By: Hodan Lockett on 01-15-2025 Albumin/Globulin [Mass ratio] 1.4 {ratio} 0.9-2.4 [facility] Serum or plasma alkaline moriah sphatase measurementOrdered By: Hodan Lockett on 01-15-2025 ALP [Catalytic activity/Vol] 87 U/L 40-129 [facility] Serum or plasma calcium erich urement (mass/volume)Ordered By: Hodan Lockett on 01-15-2025 Calcium [Mass/Vol] 9.4 mg/dL 7.6-11.0 [facility] Serum or plasma urea nitroge n measurement (mass/volume)Ordered By: Hodan Lockett on 01-15-2025 Urea nitrogen [Mass/Vol] 20 mg/dL High 4-19 [facility] Sodium levelOrdered By: Niharika Lockett on 01-15-2025 Sodium [Moles/Vol] 138 mmol/L 133-145 [facility] TSH DL <= 0.005 mIU/L QnOrde red By: Hodan Lockett on 01-15-2025 TSH Qn 4.900 uIU/mL High 0.300-4.20 0 [facility] Thyroid Stim Hormone (TSH)on 01-15-2025 TSH 4.900 uIU/mL High 0.300-4.20 0 [facility] Comment on above: Performed By: #### L 501.5200, L501.9520, L500.4050, L100.0100 ####[facility] [address] [place], [address] Total proteinOrdered By: Brendon Lockett on 01-15-2025 Protein [Mass/Vol] 6.4 g/dL 5.9-8.4 [facility] White blood cell (WBC) count Ordered By: Hoadn Lockett on 01-15-2025 WBC (Bld) [#/Vol] 8.4 10*3/uL 4.4-11.0 [facility] Anion gap in Serum or Plasma Ordered By: Roman Nichols on 12-04-2024 Anion gap [Moles/Vol] 10 mmol/L 5-15 [facility] BUN/creatinine ratioOrdered By: Roman Nichols on 12-04-2024 Urea nitrogen/Creatinine [Mass ratio] 13.1 mg/mg 10-20 [facility] Bilirubin, totalOrdered By: Roman Nichols on 12-04-2024 Bilirubin [Mass/Vol] 0.98 mg/dL 0.00-1.30 [facility] Calculated very low density lipoprotein (VLDL) cholesterol measurementOrdered By: Roman Nichols on 12-04-2024 Calculated very low density lipoprotein (VLDL) cholesterol measurement 12 mg/dL 5-40 [facility] Carbon dioxide, total [Moles /volume] in Central venous bloodOrdered By: Roman Nichols on 12-04-2024 CO2 [Moles/Vol] 23.7 mmol/L 21.0-32.0 [facility] Chloride assayOrdered By: Alana Nichols on 12-04-2024 Chloride [Moles/Vol] 108 mmol/L 98-108 [facility] Comprehensive Metabolic Prof ilon 12-04-2024 Albumin [Mass/Vol] 4.1 g/dL Normal 3.4-4.8 [facility] Comment on above: Performed By: #### L 501.9910, L500.4100, L500.4050 #### [facility] [address] [place], [address] Albumin/Globulin [Mass ratio] 1.4 {ratio} Normal 0.9-2.4 [facility] Comment on above: Performed By: #### L 501.9910, L500.4100, L500.4050 #### [facility] [address] [place], [address] ALK PHOS 86 U/L Normal 40-129 [facility] Comment on above: Performed By: #### L 501.9910, L500.4100, L500.4050 #### [facility] [address] [place], [address] ALT [Catalytic activity/Vol] 39 U/L Normal <=46 [facility] Comment on above: Performed By: #### L 501.9910, L500.4100, L500.4050 #### [facility] [address] [place], [address] AST [Catalytic activity/Vol] 58 U/L High <=37 [facility] Comment on above: Performed By: #### L 501.9910, L500.4100, L500.4050 #### [facility] [address] [place], [address] Bilirubin [Mass/Vol] 0.98 mg/dL Normal 0.00-1.30 [facility] Comment on above: Performed By: #### L 501.9910, L500.4100, L500.4050 #### [facility] [address] [place], [address] BUN/CRE 13.1 RATIO Normal 10-20 [facility] Comment on above: Performed By: #### L 501.9910, L500.4100, L500.4050 #### [facility] [address] [place], [address] Calcium [Mass/Vol] 9.8 mg/dL Normal 7.6-11.0 [facility] Comment on above: Performed By: #### L 501.9910, L500.4100, L500.4050 #### [facility] [address] [place], [address] Chloride [Moles/Vol] 108 mmol/L Normal 98-108 [facility] Comment on above: Performed By: #### L 501.9910, L500.4100, L500.4050 #### [facility] [address] [place], [address] CO2 [Moles/Vol] 23.7 mmol/L Normal 21.0-32.0 [facility] Comment on above: Performed By: #### L 501.9910, L500.4100, L500.4050 #### [facility] [address] [place], [address] Creatinine [Mass/Vol] 1.34 mg/dL High 0.70-1.20 [facility] Comment on above: Performed By: #### L 501.9910, L500.4100, L500.4050 #### [facility] [address] [place], [address] GAP 10 Normal 5-15 [facility] Comment on above: Performed By: #### L 501.9910, L500.4100, L500.4050 #### [facility] [address] [place], [address] GFR/1.73 sq M.predicted among non-blacks MDRD (S/P/Bld) [Vol rate/Area] 58 mL/min/{1.73_m2} Low >60 [facility] Comment on above: Result Comment: mL/m in/1.73m2 CKD-EPI Creatinine Equation (2020) Performed By: #### L 501.9910, L500.4100, L500.4050 #### [facility] [address] [place], [address] Globulin (S) [Mass/Vol] 3.0 g/dL Normal 2.2-4.2 [facility] Comment on above: Performed By: #### L 501.9910, L500.4100, L500.4050 #### [facility] [address] [place], [address] Glucose [Mass/Vol] 93 mg/dL Normal 70-99 [facility] Comment on above: Performed By: #### L 501.9910, L500.4100, L500.4050 #### [facility] [address] [place], [address] Potassium [Moles/Vol] 4.4 mmol/L Normal 3.3-5.1 [facility] Comment on above: Performed By: #### L 501.9910, L500.4100, L500.4050 #### [facility] [address] [place], [address] Sodium [Moles/Vol] 141 mmol/L Normal 133-145 [facility] Comment on above: Performed By: #### L 501.9910, L500.4100, L500.4050 #### [facility] [address] [place], [address] T PROT 7.1 g/dL Normal 5.9-8.4 [facility] Comment on above: Performed By: #### L 501.9910, L500.4100, L500.4050 #### [facility] [address] [place], [address] Urea nitrogen [Mass/Vol] 18 mg/dL Normal 4-19 [facility] Comment on above: Performed By: #### L 501.9910, L500.4100, L500.4050 #### [facility] [address] [place], [address] Echo Completeon 12-04-2024 Echo Complete [facility] [address] [place] [address] Echo Complete 12/04/24 0759 MR#: [id number] Acct: [id number] Name: NIYA MCKEON Rep #: [id number] : [id number] From: Peyton Rucker MD Attending Dr: Dr. Peyton Rucker MD Status: REG CLI Ordering Dr: Peyton Rucker MD Date: 12/04/24 Location: [facility] Sex: M C Admitted: Reason For Study Reason For Study: ASHD/CAD Procedure This was a 2D Doppler, Color Flow transthoracic echocardiogram. Exam performed in department. Left Ventricle Normal LV size. Mild concentric left ventricular hypertrophy. The LV systolic function is normal. EF is 65 %. Stage 1 diastolic dysfunction. Right Ventricle Normal right ventricle. Atria The left atrium is mildly enlarged. Normal right atrium. Mitral Valve Mild (1+) mitral valve insufficiency. Tricuspid Valve Normal tricuspid valve. Aortic Valve Trisinus/trileaflet aortic valve. Pulmonic Valve The pulmonic valve is not well visualized. Great Vessels Normal sized aortic root. Pericardium/Pleural No pericardial effusion. MMode/2D Measurements Calculations LVIDd: 4.6 cm IVSd: 1.2 cm Ao root diam: 3.8 cm LVIDs: 2.9 cm LVPWd: 1.2 cm LA dimension: 4.3 cm RVDd: 4.3 cm FS: 37.5 % _ asc Aorta Diam: 3.8 cm LAV(MOD-bp): 66.2 ml LVAd ap4: 37.3 cm2 LAV(MOD-bp) Indexed: 27.7 ml/m2 LVLd ap4: 9.7 cm LAV(MOD-sp2): 61.3 ml EDV(MOD-sp4): 118.8 ml LAV(MOD-sp4): 66.1 ml EDV(sp4-el): 121.9 ml LVAs ap4: 22.3 cm2 LVLs ap4: 8.4 cm ESV(MOD-sp4): 50.2 ml ESV(sp4-el): 50.3 ml EF(MOD-sp4): 57.7 % EF(sp4-el): 58.7 % _ SV(MOD-sp4): 68.6 ml SV(sp4-el): 71.5 ml LA A4 area: 21.6 cm2 SI(MOD-sp4): 28.7 ml/m2 _ LA dimension(2D): 4.7 cm RA A4 area: 15.5 cm2 TAPSE: 1.9 cm Time Measurements MV dec time: 0.16 sec Doppler Measurements Calculations MV E max west: 66.6 cm/sec Lat Peak E' West: 11.6 cm/sec Med Peak E' West: 7.3 cm/sec MV A max west: 78.9 cm/sec E/E' lat: 5.7 E/E' med: 9.1 MV E/A: 0.85 _ Ao V2 max: 104.0 cm/sec LV V1 max: 74.5 cm/sec MV dec slope: 416.4 cm/sec2 Ao max P.3 mmHg LV V1 max P.2 mmHg Ao V2 mean: 73.1 cm/sec LV V1 mean P.2 mmHg Ao mean P.4 mmHg LV V1 mean: 50.4 cm/sec Ao V2 VTI: 18.8 cm LV V1 VTI: 18.9 cm AV (velocity ratio): 1.0 _ PA V2 max: 92.3 cm/sec PA V2 mean: 64.6 cm/sec ECHO/Echo Complete Interpretation Summary Mild concentric left ventricular hypertrophy. The LV systolic function is normal. EF is 65 %. Stage 1 diastolic dysfunction. The left atrium is mildly enlarged. Mild (1+) mitral valve insufficiency. Ordering Physician: Peyton Rucker Referring Physician: Roman Nichols Performed By: Lizeth Koch RVT, RDCS and Student 12/04/24 1142 Date Peyton Rucker MD CC: MILITARY COOK-C Roman Nichols; Dr. Peyton Rucker MD Date Dictated: 12/04/24758 Date Transcribed: 12/04/24 1142 Pharmacy Operations Coordinator: Signed Normal [facility] Echocardiogram study reportO rdered By: Peyton Rucker on 12-04-2024 Study report [facility] [address] [place] [address] Echo Complete 12/04/24758 MR#: [id number] Acct: [id number] Name: NIYA MCKEON Rep #:[id number] : 1955 [id number] From: Peyton Rucker MD Attending Dr: Dr. Peyton Rucker MD Status: REG CLI Ordering Dr: Peyton Rucker MD Date: Location: [facility] Sex: M C Admitted: Reason For Study Reason For Study: ASHD/CAD Procedure This was a 2D Doppler, Color Flow transthoracic echocardiogram. Exam performed in department. Left Ventricle Normal LV size. Mild concentric left ventricular hypertrophy. The LV systolic function is normal. EF is 65 %. Stage 1 diastolic dysfunction. Right Ventricle Normal right ventricle. Atria The left atrium is mildly enlarged. Normal right atrium. Mitral Valve Mild (1+) mitral valve insufficiency. Tricuspid Valve Normal tricuspid valve. Aortic Valve Trisinus/trileaflet aortic valve. Pulmonic Valve The pulmonic valve is not well visualized. Great Vessels Normal sized aortic root. Pericardium/Pleural No pericardial effusion. MMode/2D Measurements & Calculations LVIDd: 4.6 cm IVSd: 1.2 cm Ao root diam: 3.8 cm LVIDs: 2.9 cm LVPWd: 1.2 cm LA dimension: 4.3 cm RVDd: 4.3 cm FS: 37.5 % _ asc Aorta Diam: 3.8 cm LAV(MOD-bp): 66.2 ml LVAd ap4: 37.3 cm2 LAV(MOD-bp) Indexed: 27.7 ml/m2 LVLd ap4: 9.7 cm LAV(MOD-sp2): 61.3 ml EDV(MOD-sp4): 118.8 ml LAV(MOD-sp4): 66.1 ml EDV(sp4-el): 121.9 ml LVAs ap4: 22.3 cm2 LVLs ap4: 8.4 cm ESV(MOD-sp4): 50.2 ml ESV(sp4-el): 50.3 ml EF(MOD-sp4): 57.7 % EF(sp4-el): 58.7 % SV(MOD-sp4): 68.6 ml SV(sp4-el): 71.5 ml LA A4 area: 21.6 cm2 SI(MOD-sp4): 28.7 ml/m2 _ LA dimension(2D): 4.7 cm RA A4 area: 15.5 cm2 TAPSE: 1.9 cm Time Measurements MV dec time: 0.16 sec Doppler Measurements & Calculations MV E max west: 66.6 cm/sec Lat Peak E' West: 11.6 cm/sec Med Peak E' West: 7.3 cm/sec MV A max west: 78.9 cm/sec E/E' lat: 5.7 E/E' med: 9.1 MV E/A: 0.85 Ao V2 max: 104.0 cm/sec LV V1 max: 74.5 cm/sec MV dec slope: 416.4 cm/sec2 Ao max P.3 mmHg LV V1 max P.2 mmHg Ao V2 mean: 73.1 cm/sec LV V1 mean P.2 mmHg Ao mean P.4 mmHg LV V1 mean: 50.4 cm/sec Ao V2 VTI: 18.8 cm LV V1 VTI: 18.9 cm AV (velocity ratio): 1.0 _ PA V2 max: 92.3 cm/sec PA V2 mean: 64.6 cm/sec ECHO/Echo Complete Interpretation Summary Mild concentric left ventricular hypertrophy. The LV systolic function is normal. EF is 65 %. Stage 1 diastolic dysfunction. The left atrium is mildly enlarged. Mild (1+) mitral valve insufficiency. Ordering Physician: Peyton Rucker Referring Physician: Roman Nichols Performed By: August [facility], Lizeth and Student 12/04/24 1142 Date _ Peyton Rucker MD CC: MILITARY COOK-C Roman Nichols; Dr. Peyton Rucker MD ~ Date Dictated: 12/04/24 0759 Date Transcribed: 12/04/24 114 Pharmacy Operations Coordinator: Signed [facility] Work Phone: Glomerular filtration rate ( GFR) estimation/1.73 sq m using serum, plasma, or whole bOrdered By: Roman Nichols on 12-04-2024 GFR/1.73 sq M.predicted among non-blacks MDRD (S/P/Bld) [Vol rate/Area] 58 mL/min/{1.73_m2} Low >60 [facility] Comment on above: mL/min/1.73m2 CKD-EP I Creatinine Equation (2020) LDL calc ser/plasOrdered By: Roman Nichols on 12-04-2024 Cholesterol in LDL [Mass/Vol] 107 mg/dL [facility] Comment on above: Kfytqhspbz=653-236 m g/dL & Higher Tacp=650 mg/dL or greater Laboratory - Chemistry and C hemistry - challengeOrdered By: Roman Nichols on 12-04-2024 AST [Catalytic activity/Vol] 58 U/L High <38 [facility] Lipid Profileon 12-04-2024 CHOL:HDL 3.88 Normal [facility] Comment on above: Performed By: #### L 501.9910, L500.4100, L500.4050 #### [facility] [address] [place], [address] Cholesterol [Mass/Vol] 160 mg/dL Normal <=200 [facility] Comment on above: Result Comment: Chol esterol level, Desirable <200 mg/dL Borderline high cholesterol 200-239 mg/dL High cholesterol >=240 mg/dL Recommendations of the NCEP Adult Treatment Panel for the following risk-cutoff thresholds for the [place] population. Performed By: #### L 501.9910, L500.4100, L500.4050 #### [facility] [address] [place], [address] Cholesterol in HDL [Mass/Vol] 41 mg/dL Normal [facility] Comment on above: Result Comment: [place] Cholesterol Education Program (NCEP) guidelines: <40 mg/dL: Low HDL-cholesterol (major risk factor for CHD) >= 60 mg/dL: High HDL-cholesterol (negative risk factor for CHD) HDL-cholesterol is affected by a number of factors, e.g. smoking, exercise, hormones, sex and age. Performed By: #### L 501.9910, L500.4100, L500.4050 #### [facility] [address] [place], [address] Cholesterol in LDL [Mass/Vol] 107 mg/dL Normal [facility] Comment on above: Result Comment: Bord krbpsp=051-957 mg/dL Higher Nbwi=108 mg/dL or greater Performed By: #### L 501.9910, L500.4100, L500.4050 #### [facility] [address] [place], [address] Cholesterol in VLDL [Mass/Vol] 12 mg/dL Normal 5-40 [facility] Comment on above: Performed By: #### L 501.9910, L500.4100, L500.4050 #### [facility] [address] [place], [address] Triglyceride [Mass/Vol] 58 mg/dL Normal [facility] Comment on above: Result Comment: The drugs N-Acetylcysteine and Metamizole may falsely depress this assay. Normal range: <150 mg/dL Borderline High: 150-199 mg/dL High: 200-499 mg/dL Very High: >500 mg/dL Performed By: #### L 501.9910, L500.4100, L500.4050 #### [facility] [address] [place], [place], [address] PSA,Total - Annual Screenon 12-04-2024 PSA,TOT SCREEN 1.17 ng/mL Normal 0.02-4.00 [facility] Comment on above: Result Comment: This test was performed using the [employer] tPSA method. Measured values of a patient??sample can vary depending on the testing procedure used. PSA values determined on patient samples by different testing procedures cannot be used interchangeably. If there is a change in PSA assays while monitoring therapy, sequential testing should be performed to confirm baseline values. Performed By: #### L 501.9910, L500.4100, L500.4050 #### [facility] [address] [place], [place], [address] Potassium measurement (mass/ volume)Ordered By: Roman Nichols on 12-04-2024 Potassium (Unsp spec) [Mass/Vol] 4.4 mmol/L 3.3-5.1 [facility] Screening total cholesterol/ high density lipoprotein (HDL) cholesterol ratioOrdered By: Roman Nichols on 12-04-2024 Cholesterol.total/Chol esterol in HDL [Mass ratio] 3.88 {ratio} [facility] Serum creatinine measurement (mass/volume)Ordered By: Roman Nichols on 12-04-2024 Creatinine [Mass/Vol] 1.34 mg/dL High 0.70-1.20 [facility] Serum globulin measurementOr dered By: Roman Nichols on 12-04-2024 Globulin (S) [Mass/Vol] 3.0 g/dL 2.2-4.2 [facility] Serum glucose measurement (m ass/volume)Ordered By: Roman Nichols on 12-04-2024 Glucose [Mass/Vol] 93 mg/dL 70-99 [facility] Serum or plasma alanine terry otransferase (ALT) measurementOrdered By: Roman Nichols on 12-04-2024 ALT [Catalytic activity/Vol] 39 U/L <47 [facility] Serum or plasma albumin erich urement (mass/volume)Ordered By: Roman Nichols on 12-04-2024 Albumin [Mass/Vol] 4.1 g/dL 3.4-4.8 [facility] Serum or plasma albumin/glob ulin mass ratioOrdered By: Roman Nichols on 12-04-2024 Albumin/Globulin [Mass ratio] 1.4 {ratio} 0.9-2.4 [facility] Serum or plasma alkaline moriah sphatase measurementOrdered By: Roman Nichols on 12-04-2024 ALP [Catalytic activity/Vol] 86 U/L 40-129 [facility] Serum or plasma calcium erich urement (mass/volume)Ordered By: Roman Nichols on 12-04-2024 Calcium [Mass/Vol] 9.8 mg/dL 7.6-11.0 [facility] Serum or plasma cholesterol in HDL measurement (mass/volume)Ordered By: Roman Nichols on 12-04-2024 Cholesterol in HDL [Mass/Vol] 41 mg/dL >40 [facility] Comment on above: National Cholesterol Education Program (NCEP) guidelines:<40 mg/dL: Low HDL-cholesterol (major risk factor for CHD)>= 60 mg/dL: High HDL-cholesterol (negative risk factor for CHD)HDL-cholesterol is affected by a number of factors, e.g. smoking, exercise, hormones, sex and age. Serum or plasma cholesterol measurement (mass/volume)Ordered By: Roman Nichols on 12-04-2024 Cholesterol [Mass/Vol] 160 mg/dL <201 [facility] Comment on above: Cholesterol level, D esirable <200 mg/dLBorderline high cholesterol 200-239 mg/dLHigh cholesterol >=240 mg/dLRecommendations of the NCEP Adult Treatment Panel for the following risk-cutoff thresholds for the [place] population. Serum or plasma urea nitroge n measurement (mass/volume)Ordered By: Roman Nichols on 12-04-2024 Urea nitrogen [Mass/Vol] 18 mg/dL 4-19 [facility] Sodium levelOrdered By: Rima Nichols on 12-04-2024 Sodium [Moles/Vol] 141 mmol/L 133-145 [facility] Total proteinOrdered By: Stephen Nichols on 12-04-2024 Protein [Mass/Vol] 7.1 g/dL 5.9-8.4 [facility] Triglycerides measurementOrd ered By: Roman Nichols on 12-04-2024 Triglyceride [Mass/Vol] 58 mg/dL <199 [facility] Comment on above: The drugs N-Acetylcy steine and Metamizole may falsely depress this assay. Normal range: <150 mg/dLBorderline High: 150-199 mg/dLHigh: 200-499 mg/dLVery High: >500 mg/dL Absolute lymphocyte countOrd ered By: Robi Bass on 11-06-2024 Lymphocytes Auto (Unsp spec) [#/Vol] 2.26 10*3/uL 0.83-4.51 [facility] Absolute neutrophil countOrd ered By: Robimarnie Bass on 11-06-2024 Neutrophils (Bld) [#/Vol] 6.2 10*3/uL 2.0-7.7 [facility] Anion gap in Serum or Plasma Ordered By: Robi Bass on 11-06-2024 Anion gap [Moles/Vol] 11 mmol/L 5- [facility] Automated lymphocyte count a s percentage of total leukocytesOrdered By: Robimarnie Bass on 11-06-2024 Lymphocytes/100 WBC Auto (Unsp spec) 23.7 % - [facility] BUN/creatinine ratioOrdered By: [facility] Shelia on 11-06-2024 Urea nitrogen/Creatinine [Mass ratio] 14.4 mg/mg 10-20 [facility] Basophil percentageOrdered B y: Robimarnie Bass on 11-06-2024 Basophils/100 WBC (Bld) 0.4 % 0-1 [facility] Bilirubin, totalOrdered By: Robimarnie Bass on 11-06-2024 Bilirubin [Mass/Vol] 1.16 mg/dL 0.00-1.30 [facility] CBC W/Diff, Automatedon 10-10 Absolute Lymph 2.26 X10 3/uL Normal 0.83-4.51 [facility] Comment on above: Performed By: #### L 100.0100, L500.4050, L501.9520 #### [facility] [address] [place], [address] Absolute Neut 6.2 X10 3/uL Normal 2.0-7.7 [facility] Comment on above: Performed By: #### L 100.0100, L500.4050, L501.9520 #### [facility] [address] [place], [address] Basophils/100 WBC (Bld) 0.4 % Normal 0-1 [facility] Comment on above: Performed By: #### L 100.0100, L500.4050, L501.9520 #### [facility] [address] [place], [address] Eosinophils/100 WBC (Bld) 3.8 % Normal 0-5 [facility] Comment on above: Performed By: #### L 100.0100, L500.4050, L501.9520 #### [facility] [address] [place], [address] Erythrocyte distribution width (RBC) [Ratio] 13.6 % Normal 11.6-14.6 [facility] Comment on above: Performed By: #### L 100.0100, L500.4050, L501.9520 #### [facility] [address] [place], [address] Hematocrit (Bld) [Volume fraction] 46.4 % Normal 40-54 [facility] Comment on above: Performed By: #### L 100.0100, L500.4050, L501.9520 #### [facility] [address] [place], [address] Hemoglobin (Bld) [Mass/Vol] 16.0 g/dL Normal 13.0-16.5 [facility] Comment on above: Performed By: #### L 100.0100, L500.4050, L501.9520 #### [facility] [address] [place], [address] IG% 0.400 Normal 0.0-0.9 [facility] Comment on above: Result Comment: IG% - Immature Granulocytes (promyelocytes, myelocytes and metamyelocytes) > 1% indicates that a LEFT SHIFT is Present. Performed By: #### L 100.0100, L500.4050, L501.9520 #### [facility] [address] [place], [address] Lymphocytes/100 WBC (Bld) 23.7 % Normal 19-41 [facility] Comment on above: Performed By: #### L 100.0100, L500.4050, L501.9520 #### [facility] [address] [place], [address] MCH (RBC) [Entitic mass] 29.4 pg Normal 27.0-32.0 [facility] Comment on above: Performed By: #### L 100.0100, L500.4050, L501.9520 #### [facility] [address] [place], [address] MCHC (RBC) [Mass/Vol] 34.5 g/dL Normal 32-36 [facility] Comment on above: Performed By: #### L 100.0100, L500.4050, L501.9520 #### [facility] [address] [place], [address] MCV (RBC) [Entitic vol] 85.3 fL Normal 80-94 [facility] Comment on above: Performed By: #### L 100.0100, L500.4050, L501.9520 #### [facility] [address] [place], [address] Monocytes/100 WBC (Bld) 6.4 % Normal 0-10 [facility] Comment on above: Performed By: #### L 100.0100, L500.4050, L501.9520 #### [facility] [address] [place], [address] Neutrophils/100 WBC (Bld) 65.3 % Normal 47-70 [facility] Comment on above: Performed By: #### L 100.0100, L500.4050, L501.9520 #### [facility] [address] [place], [address] Nucleated RBC (Bld) [#/Vol] 0 10*3/uL Normal 0-5 [facility] Comment on above: Performed By: #### L 100.0100, L500.4050, L501.9520 #### [facility] [address] [place], [address] Platelet mean volume (Bld) [Entitic vol] 9.3 fL Normal 6.2-12.0 [facility] Comment on above: Performed By: #### L 100.0100, L500.4050, L501.9520 #### [facility] [address] [place], [address] Platelets (Bld) [#/Vol] 189 10*3/uL Normal 150-450 [facility] Comment on above: Performed By: #### L 100.0100, L500.4050, L501.9520 #### [facility] [address] [place], [address] RBC (Bld) [#/Vol] 5.44 10*6/uL Normal 4.6-6.2 [facility] Comment on above: Performed By: #### L 100.0100, L500.4050, L501.9520 #### [facility] [address] [place], [address] RDW SD 42.0 fl Normal 35.1-43.9 [facility] Comment on above: Performed By: #### L 100.0100, L500.4050, L501.9520 #### [facility] [address] [place], [place], [address] WBC (Bld) [#/Vol] 9.5 10*3/uL Normal 4.4-11.0 [facility] Comment on above: Performed By: #### L 100.0100, L500.4050, L501.9520 #### [facility] [address] [place], [place], [address] Carbon dioxide, total [Moles /volume] in Central venous bloodOrdered By: Robi Bass on 11-06-2024 CO2 [Moles/Vol] 20.0 mmol/L Low 21.0-32.0 [facility] Cardiology Visit Reporton Cardiology Visit Report [facility] [place] [facility] [address] [place], [place] [address] OFFICE VISIT Date of Service: 11/06/24 MR#: [id number] Acct: [id number] Name: NIYA MCKEON Rep #: [id number] : 1955 Provider: Dr. Peyton Rucker MD Age/Sex: 69/M Location: [facility] [place] Status: Signed HPI HPI History of Present Illness Details: This gentleman with history of paroxysmal atrial fibrillation is here for follow-up visit. Denies any complaints. No chest pains. No shortness of breath. No palpitations. No lightheadedness or dizziness. No syncope or presyncope. 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 Accompanied by: Self Is patient in pain?: No Allergies atorvastatin Adverse Reaction (Severe, Verified 11/06/24 11:07) elevated liver enzymes ibuprofen Adverse Reaction (Intermediate, Verified 11/06/24 11:07) itchiness Medications ???Medication ???Instructions ???Recorded ???Confirmed ???Type omeprazole 20 mg capsule,delayed 20 mg PO DAILY 02/01/18 11/06/24 H istory release cholecalciferol (vitamin D3) 50 50 mcg PO DAILY 07/30/21 11/06/24 History mcg (2,000 unit) tablet levothyroxine 125 mcg capsule See Rx Instructions PO DAILY 03/1611/06/24 History rivaroxaban 20 mg tablet (Xarelto) 20 mg PO DAILY #90 tabs 01/04/24 11/06/24 Rx metoprolol succinate 25 mg See Rx Instructions .Route 11/06/24 Rx tablet,extended release 24 hr .COMPLEX #90 tabs losartan 25 mg tablet 25 mg PO DAILY #90 tabs 06/03/24 0 11/06/24 Rx flecainide 100 mg tablet 100 mg PO Q12H #180 tabs 10/11/24 11/06/24 Rx Ejection fraction %: 60 Have you fallen in the past year?: No PFSH Medical History Acute bronchitis, unspecified 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 Atrial enlargement, right Atrial fibrillation Chest pain Cough Daytime somnolence GERD (gastroesophageal reflux disease) Hypertension Nonischemic cardiomyopathy Obesity (BMI 35.0-39.9 without comorbidity) Paroxysmal atrial fibrillation Preoperative cardiovascular examination Snoring Thyroid disease Surgical History H/O lateral meniscus repair of left knee ( 2004) History of cardioversion (03/02/18) History of left heart catheterization (02/02/18) Total knee replacement status Family History Mother Hypertension Cancer lung and ovarian Father Cancer Prostate Social History Smoking Status: Never smoker alcohol intake: never substance use type: does not use caffeine: Yes Type: coffee ROS Const Const: Negative for fatigue, weakness, headache(s) or weight gain ENT ENT: Negative for headache(s), dizziness, Nosebleed/epistaxis or balance problems Cardio Chest Pain: No Palpitations: No Edema: None Muscle aches with walking: None Resp Respiratory: Negative for SOB with activity, SOB at rest or SOB orthopnea SOB lying down GI GI: Negative nausea, vomiting or heartburn Musc Musc: Negative for muscle aches/ myalgia, muscle weakness, joint pain or balance problems Neuro Neuro: Negative for dizziness, lightheadedness, near syncope, syncope, headache(s) or weakness Endo Endo: Negative for fatigue Cardiology Exam Const Appearance: comfortable and no acute distress Nutritional Appearance: well nourished Neck Neck: no JVD Carotids: Negative bruit Chest Auscultation: Bilateral: Clear to Auscultation Cardio Rate: regular rate Rhythm: regular rhythm Heart sounds: S1 normal and S2 normal Neuro General: patient alert, patient awake and patient oriented x3 Extremities Lower Extremity Edema: None: Bilateral Supplemental Info Supplemental Information Echocardiogram 03/17/2020: Interpretation Summary The estimated ejection fraction is 60 %. No evidence for diastolic dysfunction. Echocardiogram 07/21/2021: Interpretation Summary Left ventricular systolic function is normal. The estimated ejection fraction is 55 %. Mild (1+) mitral valve insufficiency. Trivial tricuspid valve insufficiency. Trivial pulmonic valve insufficiency. Unable to estimate RV systolic pressure due to insufficient tricuspid regurgitant envelope. No evidence for diastolic dysfunction. Stress Echocardiogram 02/01/2018: Reason For Study: Chest Pain Stress Results Protocol: Amilcar Dewitt (more content not included)... Normal [facility] Chloride assayOrdered By: Staci Bass on 11-06-2024 Chloride [Moles/Vol] 106 mmol/L 98-108 [facility] Comprehensive Metabolic Prof ilon 11-06-2024 Albumin [Mass/Vol] 4.3 g/dL Normal 3.4-4.8 [facility] Comment on above: Performed By: #### L 100.0100, L500.4050, L501.9520 #### [facility] [address] [place], [address] Albumin/Globulin [Mass ratio] 1.4 {ratio} Normal 0.9-2.4 [facility] Comment on above: Performed By: #### L 100.0100, L500.4050, L501.9520 #### [facility] [address] [place], [address] ALK PHOS 82 U/L Normal 40-129 [facility] Comment on above: Performed By: #### L 100.0100, L500.4050, L501.9520 #### [facility] [address] [place], [address] ALT [Catalytic activity/Vol] 34 U/L Normal <=46 [facility] Comment on above: Performed By: #### L 100.0100, L500.4050, L501.9520 #### [facility] [address] [place], [address] AST [Catalytic activity/Vol] 37 U/L Normal <=37 [facility] Comment on above: Performed By: #### L 100.0100, L500.4050, L501.9520 #### [facility] [address] [place], [address] Bilirubin [Mass/Vol] 1.16 mg/dL Normal 0.00-1.30 [facility] Comment on above: Performed By: #### L 100.0100, L500.4050, L501.9520 #### [facility] [address] [place], [address] BUN/CRE 14.4 RATIO Normal 10-20 [facility] Comment on above: Performed By: #### L 100.0100, L500.4050, L501.9520 #### [facility] [address] [place], [address] Calcium [Mass/Vol] 9.8 mg/dL Normal 7.6-11.0 [facility] Comment on above: Performed By: #### L 100.0100, L500.4050, L501.9520 #### [facility] [address] [place], [address] Chloride [Moles/Vol] 106 mmol/L Normal 98-108 [facility] Comment on above: Performed By: #### L 100.0100, L500.4050, L501.9520 #### [facility] [address] [place], [address] CO2 [Moles/Vol] 20.0 mmol/L Low 21.0-32.0 [facility] Comment on above: Performed By: #### L 100.0100, L500.4050, L501.9520 #### [facility] [address] [place], [address] Creatinine [Mass/Vol] 1.33 mg/dL High 0.70-1.20 [facility] Comment on above: Performed By: #### L 100.0100, L500.4050, L501.9520 #### [facility] [address] [place], [address] GAP 11 Normal 5-15 [facility] Comment on above: Performed By: #### L 100.0100, L500.4050, L501.9520 #### [facility] [address] [place], [address] GFR/1.73 sq M.predicted among non-blacks MDRD (S/P/Bld) [Vol rate/Area] 59 mL/min/{1.73_m2} Low >60 [facility] Comment on above: Result Comment: mL/m in/1.73m2 CKD-EPI Creatinine Equation (2020) Performed By: #### L 100.0100, L500.4050, L501.9520 #### [facility] [address] [place], [address] Globulin (S) [Mass/Vol] 3.1 g/dL Normal 2.2-4.2 [facility] Comment on above: Performed By: #### L 100.0100, L500.4050, L501.9520 #### [facility] [address] [place], [address] Glucose [Mass/Vol] 93 mg/dL Normal 70-99 [facility] Comment on above: Performed By: #### L 100.0100, L500.4050, L501.9520 #### [facility] [address] [place], [address] Potassium [Moles/Vol] 4.3 mmol/L Normal 3.3-5.1 [facility] Comment on above: Performed By: #### L 100.0100, L500.4050, L501.9520 #### [facility] [address] [place], [address] Sodium [Moles/Vol] 137 mmol/L Normal 133-145 [facility] Comment on above: Performed By: #### L 100.0100, L500.4050, L501.9520 #### [facility] [address] [place], [address] T PROT 7.3 g/dL Normal 5.9-8.4 [facility] Comment on above: Performed By: #### L 100.0100, L500.4050, L501.9520 #### [facility] [address] [place], [address] Urea nitrogen [Mass/Vol] 19 mg/dL Normal 4-19 [facility] Comment on above: Performed By: #### L 100.0100, L500.4050, L501.9520 #### [facility] [address] [place], [address] Eosinophil percentageOrdered By: Robi Bass on 11-06-2024 Eosinophils/100 WBC (Bld) 3.8 % 0-5 [facility] Erythrocyte distribution wid th ratioOrdered By: Robi Bass on 11-06-2024 Erythrocyte distribution width (RBC) [Ratio] 13.6 % 11.6-14.6 [facility] Erythrocyte distribution wid th standard deviationOrdered By: Robi Bass on 11-06-2024 Erythrocyte distribution width (RBC) [Ratio] 42.0 fl 35.1-43.9 [facility] Glomerular filtration rate ( GFR) estimation/1.73 sq m using serum, plasma, or whole bOrdered By: Robi Bass on 11-06-2024 GFR/1.73 sq M.predicted among non-blacks MDRD (S/P/Bld) [Vol rate/Area] 59 mL/min/{1.73_m2} Low >60 [facility] Comment on above: mL/min/1.73m2 CKD-EP I Creatinine Equation (2020) Hematocrit Auto (Bld) [Volum e fraction]Ordered By: Robi Bass on 11-06-2024 Hematocrit (Bld) [Volume fraction] 46.4 % 40-54 [facility] Hemoglobin measurementOrdere d By: Robi Bass on 11-06-2024 Hemoglobin (Bld) [Mass/Vol] 16.0 g/dL 13.0-16.5 [facility] Immature granulocytes/100 WB C Auto (Bld)Ordered By: Robi Bass on 11-06-2024 Immature granulocytes/100 WBC (Bld) 0.400 % 0.0-0.9 [facility] Comment on above: IG% - Immature Granu locytes (promyelocytes, myelocytes and metamyelocytes) > 1% indicates that a LEFT SHIFT is Present. Laboratory - Chemistry and C hemistry - challengeOrdered By: Robi Bass on 11-06-2024 AST [Catalytic activity/Vol] 37 U/L <38 [facility] MCV (mean corpuscular volume ) determinationOrdered By: Robi Bass on 11-06-2024 MCV (RBC) [Entitic vol] 85.3 fL 80-94 [facility] Mean corpuscular hemoglobin (MCH) determinationOrdered By: Robi Bass on 11-06-2024 MCH (RBC) [Entitic mass] 29.4 pg 27.0-32.0 [facility] Mean corpuscular hemoglobin concentration (MCHC) determinationOrdered By: Robi Bass 11-06-2024 MCHC (RBC) [Mass/Vol] 34.5 g/dL 32-36 [facility] Mean platelet volume determi nationOrdered By: Robi Bass on 11-06-2024 Platelet mean volume (Bld) [Entitic vol] 9.3 fL 6.2-12.0 [facility] Monocyte percentageOrdered B y: Robi Bass on 11-06-2024 Monocytes/100 WBC (Bld) 6.4 % 0-10 [facility] Neutrophil percentageOrdered By: Robi Bass on 11-06-2024 Neutrophils/100 WBC (Bld) 65.3 % 47-70 [facility] Nucleated red blood cell per centageOrdered By: Robi Bass on 11-06-2024 Nucleated RBC/100 WBC (Bld) [Ratio] 0 % 0-5 [facility] Platelet countOrdered By: Staci Bass on 11-06-2024 Platelets (Bld) [#/Vol] 189 10*3/uL 150-450 [facility] Potassium measurement (mass/ volume)Ordered By: Robi Bass on 11-06-2024 Potassium (Unsp spec) [Mass/Vol] 4.3 mmol/L 3.3-5.1 [facility] RBC Auto (Bld) [#/Vol]Ordere d By: Robi Bass on 11-06-2024 RBC (Bld) [#/Vol] 5.44 10*6/uL 4.6-6.2 [facility] Serum creatinine measurement (mass/volume)Ordered By: Robi Bass on 11-06-2024 Creatinine [Mass/Vol] 1.33 mg/dL High 0.70-1.20 [facility] Serum globulin measurementOr dered By: Robi Bass on 11-06-2024 Globulin (S) [Mass/Vol] 3.1 g/dL 2.2-4.2 [facility] Serum glucose measurement (m ass/volume)Ordered By: Robi Bass on 11-06-2024 Glucose [Mass/Vol] 93 mg/dL 70-99 [facility] Serum or plasma alanine terry otransferase (ALT) measurementOrdered By: Robi Bass on 11-06-2024 ALT [Catalytic activity/Vol] 34 U/L <47 [facility] Serum or plasma albumin erich urement (mass/volume)Ordered By: Robi Bass on 11-06-2024 Albumin [Mass/Vol] 4.3 g/dL 3.4-4.8 [facility] Serum or plasma albumin/glob ulin mass ratioOrdered By: Robi Bass on 11-06-2024 Albumin/Globulin [Mass ratio] 1.4 {ratio} 0.9-2.4 [facility] Serum or plasma alkaline moriah sphatase measurementOrdered By: Robi Bass on 11-06-2024 ALP [Catalytic activity/Vol] 82 U/L 40-129 [facility] Serum or plasma calcium erich urement (mass/volume)Ordered By: Robi Bsas on 11-06-2024 Calcium [Mass/Vol] 9.8 mg/dL 7.6-11.0 [facility] Serum or plasma urea nitroge n measurement (mass/volume)Ordered By: Robi Bass on 11-06-2024 Urea nitrogen [Mass/Vol] 19 mg/dL 4-19 [facility] Sodium levelOrdered By: Rodrigo Bass on 11-06-2024 Sodium [Moles/Vol] 137 mmol/L 133-145 [facility] TSH DL <= 0.005 mIU/L QnOrde red By: Robi Bass on 11-06-2024 TSH Qn 6.700 uIU/mL High 0.300-4.20 0 [facility] Thyroid Stim Hormone (TSH)on 11-06-2024 TSH 6.700 uIU/mL High 0.300-4.20 0 [facility] Comment on above: Performed By: #### L 100.0100, L500.4050, L501.9520 #### [facility] Laboratory [facility] [place], [address] Total proteinOrdered By: Harley Bass on 11-06-2024 Protein [Mass/Vol] 7.3 g/dL 5.9-8.4 [facility] White blood cell (WBC) count Ordered By: Robi Bass on 11-06-2024 WBC (Bld) [#/Vol] 9.5 10*3/uL 4.4-11.0 [facility] Lipid Profileon 05-28-2024 Cholesterol [Mass/Vol] 155 mg/dL Normal 200 [facility] Comment on above: Result Comment: <200 mg/dL Desirable 200-240 mg/dL Borderline >240 mg/dL High Risk Performed By: #### L 500.4100 ####[facility] [address] [place], [address] Cholesterol in HDL [Mass/Vol] 40 mg/dL Normal [facility] Comment on above: Result Comment: The drugs N-Acetylcysteine and Metamizole may falsely depress this assay. Reference Range HDL <40 mg/dL Low HDL Cholesterol HDL >or= 60 mg/dL High HDL Cholesterol Performed By: #### L 500.4100 ####[facility] [address] [place], [address] Cholesterol in LDL [Mass/Vol] 101 mg/dL Normal 0-130 [facility] Comment on above: Performed By: #### L 500.4100 ####[facility] [address] [place], [address] Cholesterol in VLDL [Mass/Vol] 14 mg/dL Normal 5-40 [facility] Comment on above: Performed By: #### L 500.4100 ####[facility] [address] [place], [address] Triglyceride [Mass/Vol] 69 mg/dL Normal [facility] Comment on above: Result Comment: The drugs N-Acetylcysteine and Metamizole may falsely depress this assay. Serum Triglycerides Reference Interval Normal <150 mg/dL Borderline high 150 - 199 mg/dL High 200 - 499 mg/dL Very High > or = 500 mg/dL Performed By: #### L 500.4100 ####[facility] [address] [place], [address] 12 Lead EKG performed by [facility] on 05-27-2024 12 Lead EKG performed by [place] [address] [place] [address] 12 Lead EKG performed by [facility] 05/27/241416 MR#: [id number] Acct: [id number] Name: NIYA MCKEON Rep #: [id number] : 1955 69 From: Peyton Rucker MD Attending Dr: Dr. Peyton Rucker MD Status: DEP AMB Ordering Dr: Peyton Rucker MD Date: 05/27/24 Location: [facility] Sex: M C Admitted: BMS/12 Lead EKG performed by [facility] ECG Report Interpretation --Sinus Rhythm -Old inferior infarct. ABNORMAL Electronically signed on 08/05/2024 at 11:[address] Peyton Rucker [employer] Software Version 8610 08/05/241114 Date Peyton Rucker MD CC: MILITARY COOK-C Roman Nichols Date Dictated: 05/27/241416 Date Transcribed: 05/27/241416 Pharmacy Operations Coordinator: KARI Signed Normal [facility] Cardiology Visit Reporton Cardiology Visit Report [facility] [address] [place] [address] OFFICE VISIT Date of Service: 05/27/24 MR#: [id number] Acct: [id number] Name: NIYA MCKEON Rep #: [id number] : 1955 Provider: Dr. Peyton Rucker MD Age/Sex: 69/M Location: [facility] Status: Signed HPI HPI History of Present Illness Details: This gentleman with history of paroxysmal atrial fibrillation and mild nonobstructive coronary artery disease is here for follow-up visit. Denies any complaints. No chest pains. No shortness of breath. No palpitations. No orthopnea or PND. No ankle edema. 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 by: Self Is patient in pain?: No Allergies atorvastatin Adverse Reaction (Severe, Verified 05/27/24 13:49) elevated liver enzymes ibuprofen Adverse Reaction (Intermediate, Verified 05/27/24 13:49) itchiness Medications ???Medication ???Instructions ???Recorded ???Confirmed ???Type omeprazole 20 mg capsule,delayed 20 mg PO DAILY 02/01/18 05/27/24 History release cholecalciferol (vitamin D3) 50 50 mcg PO DAILY 07/30/21 05/27/24 History mcg (2,000 unit) tablet levothyroxine 125 mcg capsule See Rx Instructions PO DAILY 03/16/22 05/27/24 History losartan 25 mg tablet 25 mg PO DAILY #90 tabs 06/20/23 05/27/24 Rx flecainide 100 mg tablet 100 mg PO Q12H #180 tabs 10/04/23 05/27/24 Rx rivaroxaban 20 mg tablet (Xarelto) 20 mg PO DAILY #90 tabs 01/04/24 05/27/24 Rx metoprolol succinate 25 mg See Rx Instructions .Route 02/12/24 05/27/24 Rx tablet,extended release 24 hr .COMPLEX #90 tabs Ejection fraction %: 60 Have you fallen in the past year?: No PFSH Medical History Acute bronchitis, unspecified 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 Atrial enlargement, right Atrial fibrillation Chest pain Cough Daytime somnolence GERD (gastroesophageal reflux disease) Hypertension Nonischemic cardiomyopathy Obesity (BMI 35.0-39.9 without comorbidity) Paroxysmal atrial fibrillation Preoperative cardiovascular examination Snoring Thyroid disease Surgical History H/O lateral meniscus repair of left knee ( 2004) History of cardioversion (03/02/18) History of left heart catheterization (02/02/18) Total knee replacement status Family History Mother Hypertension Cancer lung and ovarian Father Cancer Prostate Social History Smoking Status: Never smoker alcohol intake: never substance use type: does not use caffeine: Yes Type: coffee ROS Const Const: Negative for fatigue, weakness, headache(s) or weight gain ENT ENT: Negative for headache(s), dizziness, Nosebleed/epistaxis or balance problems Cardio Chest Pain: No Palpitations: No Edema: None Muscle aches with walking: None Resp Respiratory: Negative for SOB with activity, SOB at rest or SOB orthopnea SOB lying down GI GI: Negative nausea, vomiting or heartburn Musc Musc: Negative for muscle aches/ myalgia, muscle weakness, joint pain or balance problems Neuro Neuro: Negative for dizziness, lightheadedness, near syncope, syncope, headache(s) or weakness Endo Endo: Negative for fatigue Cardiology Exam Const Appearance: comfortable and no acute distress Nutritional Appearance: well nourished Neck Neck: no JVD Carotids: Negative bruit Chest Auscultation: Bilateral: Clear to Auscultation Cardio Rate: regular rate Rhythm: regular rhythm Heart sounds: S1 normal and S2 normal Neuro General: patient alert, patient awake and patient oriented x3 Extremities Lower Extremity Edema: None: Bilateral Supplemental Info Supplemental Information Echocardiogram from 03/17/2020: Interpretation Summary The estimated ejection fraction is 60 %. No evidence for diastolic dysfunction. Echocardiogram: 07-21-2021 Interpretation Summary Left ventricular systolic function is normal. The estimated ejection fraction is 55 %. Mild (1+) mitral valve insufficiency. Trivial tricuspid valve insufficiency. Trivial pulmonic valve insufficiency. Unable to estimate RV systolic pressure due to insufficient tricuspid regurgitant envelope. No evidence for diastolic dysfunction. Stress echocardiogram from 02/01/2018: Reason For Study: Chest Pain Stress Results Laci (more content not included)... [facility] Office Visit (STEPHANIE MERIDA) -------- PIETER MCKEON ([id number]) 1955 M Date Time Provider Department 09/06/23 2:20 PM DANNY RAMOS During your visit today, we recorded the following information about you: Pulse Blood pressure Weight Height 68/minute 110/71 119.5 kg 1.867 m Estefany Chahal MA 09/06/2023 2:25 PM Signed Patient denies cardiac complaints or symptoms. Danny Ramos MD 09/10/2023 9:24 PM Signed PRIMARY CARE PHYSICIAN: Kartik Miguel MD [facility] [address] [place] [address] REFERRING PHYSICIAN: Peyton Rucker [address] [address] Patient Care Team: Roman Nichols CNP as PCP - General (Family Medicine) Peyton Rucker MD as Specialty Survey Coordinator (Cardiology) CHIEF COMPLAINT: Evaluation of arrhythmia HISTORY OF PRESENT ILLNESS: Mr. Mckeon is a 68 year old male who presents today for evaluation of arrhythmia. He states atrial fibrillation was diagnosed in 2018, had wax build up" at the time, was seen by a nurse who diagnosed the irregular rhythm. 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 Cardiac catheterization did not reveal substantial CAD. In January 2018 treated with amiodarone and Xarelto. Underwent electrical cardioversion 03/02/2018. Amiodarone discontinued in 2019, then the atrial fibrillation recurred. By then the cardiomyopathy had resolved, LVEF 50%. He was then treated with flecainide, the atrial fibrillation spontaneously converted back to sinus rhythm. No atrial fibrillation recurrence on the flecainide that he has been aware. When in atrial fibrillation, he has less energy, has fatigue, palpitations or skipped beats, also exertional shortness of breath, effort intolerance. He denies chest pain, shortness of breath, orthopnea, palpitations, PND, lightheadedness or syncope. I have confirmed and edited as necessary, the PFSH and ROS obtained by others. 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 Paroxysmal atrial fibrillation (HCC) PAST SURGICAL HISTORY Procedure Laterality Date ARTHROTOMY W/MENISCUS REPAIR KNEE Left 2004 CARDIOVERSION, ELECTIVE, ELECTRICAL 01/2018 LEFT HEART CATH,PERCUTANEOUS Left 2018 TOTAL KNEE REPLACEMENT SOCIAL HISTORY Social History Tobacco Use Smoking status: Never Smokeless tobacco: Never Substance Use Topics Alcohol use: Never Drug use: Never FAMILY HISTORY Problem Relation Age of Onset Hypertension Mother Lung Cancer Mother Ovarian cancer Mother Prostate Cancer Father ALLERGIES: ALLERGIES Allergen Reactions Atorvastatin Other: See Comments Elevated liver enzymes Ibuprofen Itching MEDICATIONS: SYNTHROID 125 mcg tablet omeprazole (PRILOSEC) 20 mg capsule Take 20 mg by mouth once daily. cholecalciferol, vitamin D3, (D3-50 CHOLECALCIFEROL ORAL) Take 50 mcg by mouth once daily. flecainide (TAMBOCOR) 100 mg tablet Take 100 mg by mouth two times a day. rivaroxaban (XARELTO) 20 mg tablet Take 20 mg by mouth daily with dinner. metoprolol succinate ER (TOPROL XL) 25 mg 24 hr tablet Take 25 mg by mouth once daily. losartan (COZAAR) 25 mg tablet Take 25 mg by mouth once daily. albuterol HFA (PROVENTIL HFA, VENTOLIN HFA) 90 mcg/actuation inhaler Inhale 2 Puffs as instructed every 4 hours as needed for Wheezing/Shortness of Breath. REVIEW OF SYSTEMS: Review of Systems Constitutional: Negative for chills, fever, malaise/fatigue and weight loss. Respiratory: Negative for cough, hemoptysis, sputum production, shortness of breath and wheezing. Cardiovascular: Negative for chest pain, palpitations, orthopnea, claudication, leg swelling and PND. Gastrointestinal: Negative for abdominal pain, blood in stool, melena, nausea and vomiting. Genitourinary: Negative for dysuria, flank pain and hematuria. Musculoskeletal: Negative for falls and myalgias. Skin: Negative for rash. Neurological: Negative for focal weakness, seizures and loss of consciousness. PHYSICAL EXAMINATION: BP 110/71 Pulse 68 Ht 6' 1.5" (1.87m) Wt 263 lb 6.4 oz (119.5kg) SpO2 95% BMI 34.28 kg/(m2). Physical Exam Vitals reviewed. Constitutional: General: He is not in acute distress. Appearance: Normal appearance. HENT: Head: Normocephalic and atraumatic. Cardiovascular: Rate and Rhythm: Normal rate and regular rhythm. Heart sounds: Normal heart sounds, S1 normal and S2 normal. No murmur heard. No friction rub. Pulmonary: Effort: Pulmonary effort is normal. No respiratory distress. Breath soun (more content not included)... Normal [facility] Basophil percentageOrdered B y: Roman Nichols on 06-09-2023 Bilirubin [Mass/Vol] 1.60 mg/dL 0.20-1.00 [facility] Comment on above: For patients on eltr ombopag therapy, use of [place] TBIL is not recommended. Chloride [Moles/Vol] 108 mmol/L 98-107 [facility] Cholesterol [Mass/Vol] 131 mg/dL <200 [facility] Comment on above: <200 mg/dL Desirable 200-240 mg/dL Borderline >240 mg/dL High Risk Glucose [Mass/Vol] 98 mg/dL 74-106 [facility] Potassium [Moles/Vol] 3.9 mmol/L 3.5-5.1 [facility] Protein [Mass/Vol] 7.2 g/dL 6.4-8.2 [facility] Sodium [Moles/Vol] 137 mmol/L 136-145 [facility] Triglyceride [Mass/Vol] 54 mg/dL <199 [facility] Comment on above: The drugs N-Acetylcy steine and Metamizole may falsely depress this assay.Serum Triglycerides Reference Interval Normal <150 mg/dL Borderline high 150 - 199 mg/dL High 200 - 499 mg/dL Very High > or = 500 mg/dL Laboratory - Chemistry and C hemistry - challengeOrdered By: Roman Nichols on 06-09-2023 ALP [Catalytic activity/Vol] 84 U/L 45-117 [facility] ALT [Catalytic activity/Vol] 42 U/L 16-61 [facility] CO2 [Moles/Vol] 26.0 mmol/L 21.0-32.0 [facility] Free T4 [Mass/Vol] 1.21 ng/dL 0.76-1.46 [facility] Globulin (S) [Mass/Vol] 3.8 g/dL 2.2-4.2 [facility] Urea nitrogen/Creatinine [Mass ratio] 13.4 mg/mg 10-20 [facility] No Panel InformationOrdered By: Roman Nichols on 06-09-2023 Estimated GFR (MDRD) Amer 61 mL/min >60 [facility] Comment on above: GFR Calc Estimated GFR (MDRD) Non-Af Amer 50 mL/min >60 [facility] Comment on above: Non- GFR Calc Thyroid Stimulating Hormone (TSH) 7.02 uIU/mL 0.358-3.74 [facility] Serum or plasma albumin erich urement (mass/volume)Ordered By: Roman Nichols on 06-09-2023 Albumin [Mass/Vol] 3.4 g/dL 3.2-5.0 [facility] Serum or plasma albumin/glob ulin mass ratioOrdered By: Roman Nichols on 06-09-2023 Albumin/Globulin [Mass ratio] 0.9 {ratio} 0.9-2.4 [facility] Serum or plasma calcium erich urement (mass/volume)Ordered By: Roman Nichols on 06-09-2023 Calcium [Mass/Vol] 9.1 mg/dL 8.5-10.1 [facility] Serum or plasma cholesterol in HDL measurement (mass/volume)Ordered By: Roman Nichols on 06-09-2023 Cholesterol in HDL [Mass/Vol] 37 mg/dL >40 [facility] Comment on above: The drugs N-Acetylcy steine and Metamizole may falsely depress this assay. Reference Range HDL <40 mg/dL Low HDL Cholesterol HDL >or= 60 mg/dL High HDL Cholesterol Serum or plasma cholesterol in VLDL measurement (mass/volume)Ordered By: Roman Nichols on 06-09-2023 Cholesterol in VLDL [Mass/Vol] 11 mg/dL 5-40 [facility] Serum or plasma creatinine m easurement (mass/volume)Ordered By: Roman Nichols on 06-09-2023 Creatinine [Mass/Vol] 1.49 mg/dL 0.70-1.30 [facility] Comment on above: The validity of the calculated GFR & GFRAA in patients over 70 years has not been determined. Clinical correlation is essential. Serum or plasma low density lipoprotein (LDL) cholesterol measurement (mass/volume)Ordered By: Roman Nichols on 06-09-2023 Cholesterol in LDL [Mass/Vol] 83 mg/dL 0-130 [facility] Serum or plasma urea nitroge n measurement (mass/volume)Ordered By: Roman Nichols on 06-09-2023 Urea nitrogen [Mass/Vol] 20 mg/dL 7-18 [facility] Thin prep Papanicolaou smear with manual screeningOrdered By: Roman Nichols on 06-09-2023 Thin prep Papanicolaou smear with manual screening 28 U/L 15-37 [facility] Thin prep Papanicolaou smear with manual screening 3 5-15 [facility] CALCIFEDIOL (45074)Ordered B y: Motorcycle Delivery Driver on 12-02-2022 25-hydroxyvitamin D [Mass/Vol] 80.6 ng/mL Normal 30.0-100.0 [facility]; [facility] Work Phone: Comment on above: Vitamin D deficiency has been defined by the [place] of[employer] and an Endocrine Society practice guideline as alevel of serum 25-OH vitamin D less than 20 ng/mL (1,2).The Endocrine Society went on to further define vitamin Dinsufficiency as a level between 21 and 29 ng/mL (2).1. IOM ([place] [employer]). 2010. Dietary reference intakes for calcium and D. [place]: The National Academies Press.2. Alaina MF, Joan NC, Keily ANGLIN, et al. Evaluation, treatment, and prevention of vitamin D deficiency: an Endocrine Society clinical practice guideline. JCEM. 2010; 96(7):1911-30. PATIENT WAS FASTINGP ERFORMED BY: [employer] [facility] [id number] CBC, PLATELETS & AUT DIFF (0 1088)Ordered By: Motorcycle Delivery Driver on 12-02-2022 Basophils (Bld) [#/Vol] 0.1 10*3/uL Normal 0.0-0.2 [facility]; [facility] Work Phone: Comment on above: PATIENT WAS FASTINGP ERFORMED BY: [employer]70 [facility] [place] [id number] Basophils/100 WBC (Bld) 1 % Normal [facility]; [facility] Work Phone: Comment on above: PATIENT WAS FASTINGP ERFORMED BY: Catie Dsikgb2414 [facility] [place] [id number] Eosinophils (Bld) [#/Vol] 0.4 10*3/uL Normal 0.0-0.4 [facility]; [facility] Work Phone: Comment on above: PATIENT WAS FASTINGP ERFORMED BY: [place] [id number] [facility] [place] [id number] Eosinophils/100 WBC (Bld) 5 % Normal [facility]; [facility] Work Phone: Comment on above: PATIENT WAS FASTINGP ERFORMED BY: [facility] [address] [id number] Erythrocyte distribution width (RBC) [Ratio] 13.6 % Normal 11.6-15.4 [facility]; [facility] Work Phone: Comment on above: PATIENT WAS FASTINGP ERFORMED BY: [place] Qiwlli8620 [facility] [id number] Hematocrit (Bld) [Volume fraction] 44.4 % Normal 37.5-51.0 [facility]; [facility] Work Phone: Comment on above: PATIENT WAS FASTINGP ERFORMED BY: [place] [id number] [facility] [id number] Hemoglobin (Bld) [Mass/Vol] 14.7 g/dL Normal 13.0-17.7 [facility]; [facility] Work Phone: Comment on above: PATIENT WAS FASTINGP ERFORMED BY: [place] Jveyfh9429 [facility] [place] [id number] Immature granulocytes (Bld) [#/Vol] 0.0 10*3/uL Normal 0.0-0.1 [facility]; [facility] Work Phone: Comment on above: PATIENT WAS FASTINGP ERFORMED BY: [employer] [id number] [facility] [place] [id number] Immature granulocytes/100 WBC (Bld) 0 % Normal [facility]; [facility] Work Phone: Comment on above: PATIENT WAS FASTINGP ERFORMED BY: [place] [place] Gwjgkc1501 [facility] [place] [id number] Lymphocytes (Bld) [#/Vol] 1.7 10*3/uL Normal 0.7-3.1 [facility]; [facility] Work Phone: Comment on above: PATIENT WAS FASTINGP ERFORMED BY: [facility] [place] Bdzubd3437 [facility] [place] [id number] Lymphocytes/100 WBC (Bld) 24 % Normal [facility]; [facility] Work Phone: Comment on above: PATIENT WAS FASTINGP ERFORMED BY: [facility]6370 [facility] [id number] MCH (RBC) [Entitic mass] 27.7 pg Normal 26.6-33.0 [facility]; [facility] Work Phone: Comment on above: PATIENT WAS FASTINGP ERFORMED BY: [place] [place] Lkkugg4507 [facility] [place] [id number] MCHC (RBC) [Mass/Vol] 33.1 g/dL Normal 31.5-35.7 [facility] prehensive [facility]; [facility] Work Phone: Comment on above: PATIENT WAS FASTINGP ERFORMED BY: [facility] [place] [id number] MCV (RBC) [Entitic vol] 84 fL Normal 79-97 [facility]; [facility] Work Phone: Comment on above: PATIENT WAS FASTINGP ERFORMED BY: [facility] [place] [id number] Monocytes (Bld) [#/Vol] 0.6 10*3/uL Normal 0.1-0.9 [facility]; [facility] Work Phone: Comment on above: PATIENT WAS FASTINGP ERFORMED BY: BEREKET [facility] Jgkzmz8904 [address] [place] [id number] Monocytes/100 WBC (Bld) 8 % Normal [facility]; [facility] Work Phone: Comment on above: PATIENT WAS FASTINGP ERFORMED BY: BEREKET [facility] Unokto0865 [address] [place] [id number] Neutrophils (Bld) [#/Vol] 4.5 10*3/uL Normal 1.4-7.0 [facility]; [facility] Work Phone: Comment on above: PATIENT WAS FASTINGP ERFORMED BY: BEREKET [facility] Qamcfo5396 [address] [place] [id number] Neutrophils/100 WBC (Bld) 62 % Normal [facility]; [facility] Work Phone: Comment on above: PATIENT WAS FASTINGP ERFORMED BY: BEREKET [facility] Zayyak3225 [address] [place] [id number] Platelets (Bld) [#/Vol] 274 10*3/uL Normal 150-450 [facility]; [facility] Work Phone: Comment on above: PATIENT WAS FASTINGP ERFORMED BY: BEREKET [facility] Fkfafm8438 [address] [place] [id number] RBC (Bld) [#/Vol] 5.30 10*6/uL Normal 4.14-5.80 Compr ehensive [facility]; [facility] Work Phone: Comment on above: PATIENT WAS FASTINGP ERFORMED BY: CB [facility] Xqxqrd8559 [address] [place] [id number] WBC (Bld) [#/Vol] 7.2 10*3/uL Normal 3.4-10.8 [facility]; [facility] Work Phone: Comment on above: PATIENT WAS FASTINGP ERFORMED BY: CB [facility] Xjewki0870 [address] [place] [id number] LIPID PANEL ([id number])Ordered B y: Motorcycle Delivery Driver on 12-02-2022 Cholesterol [Mass/Vol] 120 mg/dL Normal 100-199 [facility]; [facility] Work Phone: Comment on above: PATIENT WAS FASTINGP ERFORMED BY: BEREKET [facility] Gbljog0663 [address] [place] [id number] Cholesterol in HDL [Mass/Vol] 35 mg/dL Abnormal [facility]; [facility] Work Phone: Comment on above: PATIENT WAS FASTINGP ERFORMED BY: BEREKET [facility] Tnanhm7051 [address] [place] [id number] Triglyceride [Mass/Vol] 53 mg/dL Normal 0-149 [facility]; [facility] Work Phone: Comment on above: PATIENT WAS FASTINGP ERFORMED BY: BEREKET [facility] Dhqccn3419 [address] [place] [id number] LIPID PANEL ([id number]) 12 mg/dL Normal 5-40 [facility]; [facility] Work Phone: Comment on above: PATIENT WAS FASTINGP ERFORMED BY: BEREKET [facility] Mahmww0994 [address] [place] [id number] LIPID PANEL ([id number]) 73 mg/dL Normal 0-99 [facility] [facility]; [facility] Work Phone: Comment on above: PATIENT WAS FASTINGP ERFORMED BY: BEREKET [facility] Dolwjl5716 [facility]in [place] [id number] LIPID PANEL (07291) 2.1 {ratio} Normal 0.0-3.6 [facility]; [facility] Work Phone: Comment on above: LDL/HDL Ratio Men Wo men 1/2 Avg.Risk 1.0 1.5 Avg.Risk 3.6 3.2 2X Avg.Risk 6.2 5.0 3X Avg.Risk 8.0 6.1 PATIENT WAS FASTINGP ERFORMED BY: BEREKET [facility] Hihcaz2853 Mr RoadDublin [place] [id number] METABOLIC PANEL, COMPREHENSI VE ([id number])Ordered By: Motorcycle Delivery Driver on 12-02-2022 Albumin [Mass/Vol] 3.8 g/dL Normal 3.8-4.8 [facility] Internal Medicine; [facility] Work Phone: Comment on above: PATIENT WAS FASTINGP ERFORMED BY: CB [facility] Qpexcm6613 Rm RoadDublin [place] [id number] Albumin/Globulin [Mass ratio] 1.4 {ratio} Normal 1.2-2.2 [facility]; [facility] Internal Medicine Work Phone: Comment on above: PATIENT WAS FASTINGP ERFORMED BY: CB [facility] Zpwniy6258 Rm RoadDublin [place] [id number] ALP [Catalytic activity/Vol] 87 U/L Normal 44-121 [facility]; [facility] Work Phone: Comment on above: PATIENT WAS FASTINGP ERFORMED BY: CB [facility] Zgpcyr9292 Rm RoadDublin [place] [id number] ALT [Catalytic activity/Vol] 26 U/L Normal 0-44 [facility]; [facility] Work Phone: Comment on above: PATIENT WAS FASTINGP ERFORMED BY: CB [facility] Mgmcvf1176 Rm RoadDublin [place] [id number] AST [Catalytic activity/Vol] 24 U/L Normal 0-40 [facility] Internal Medicine; [facility] Internal Medicine Work Phone: Comment on above: PATIENT WAS FASTINGP ERFORMED BY: CB [facility] Ufjgak1687 Rm RoadDublin [place] [id number] Bilirubin [Mass/Vol] 0.9 mg/dL Normal 0.0-1.2 [facility] Internal Medicine; [facility] Internal Medicine Work Phone: Comment on above: PATIENT WAS FASTINGP ERFORMED BY: CB [facility] Khnesg4024 Rm RoadDublin [place] [id number] Calcium [Mass/Vol] 9.4 mg/dL Normal 8.6-10.2 [facility] Internal Medicine; [facility] Internal Medicine Work Phone: Comment on above: PATIENT WAS FASTINGP ERFORMED BY: CB [facility] Zwldbn7598 Rm RoadDublin [place] [id number] Chloride [Moles/Vol] 104 mmol/L Normal 96-106 Comp rehensive Internal Medicine; [facility] Work Phone: Comment on above: PATIENT WAS FASTINGP ERFORMED BY: BEREKTE Oropeza6370 [facility] [id number] CO2 [Moles/Vol] 21 mmol/L Normal 20-29 Comprehen [facility] Internal Medicine; [facility] Work Phone: Comment on above: PATIENT WAS FASTINGP ERFORMED BY: BEREKET Haddad Llqxeb5582 [facility] [id number] Creatinine [Mass/Vol] 1.25 mg/dL Normal 0.76-1.27 [facility] prehensive Internal Medicine; [facility] Work Phone: Comment on above: PATIENT WAS FASTINGP ERFORMED BY: BEREKET [facility] [place] Lylwzh5534 [facility] [id number] GFR/1.73 sq M.predicted among non-blacks MDRD (S/P/Bld) [Vol rate/Area] 64 mL/min/{1.73_m2} Normal Comprehensiv e Internal Medicine; [facility] Work Phone: Comment on above: PATIENT WAS FASTINGP ERFORMED BY: BEREKET Haddad Qdmcbf5590 [facility] [id number] Globulin (S) [Mass/Vol] 2.8 g/dL Normal 1.5-4.5 [facility]; [facility] Work Phone: Comment on above: PATIENT WAS FASTINGP ERFORMED BY: [place] [place] Ptbtlu3760 [facility] [id number] Glucose [Mass/Vol] 82 mg/dL Normal 70-99 [facility] Internal Medicine; [facility] Work Phone: Comment on above: PATIENT WAS FASTINGP ERFORMED BY: BEREKTE Haddad Wrioro6689 [facility] [id number] Potassium [Moles/Vol] 4.3 mmol/L Normal 3.5-5.2 Com prehensive Internal Medicine; [facility] Work Phone: Comment on above: PATIENT WAS FASTINGP ERFORMED BY: BEREKET Labcoharmony Pownhm6294 Rm RoadDublin [place] [id number] Protein [Mass/Vol] 6.6 g/dL Normal 6.0-8.5 [facility] Internal Medicine; [facility] Work Phone: Comment on above: PATIENT WAS FASTINGP ERFORMED BY: BEREKET [facility] Saiwrn1460 Rm RoadDublin [place] [id number] Sodium [Moles/Vol] 138 mmol/L Normal 134-144 [facility] Internal Medicine; [facility] Work Phone: Comment on above: PATIENT WAS FASTINGP ERFORMED BY: BERKEET Labcoharmony MonroeEgsugj1369 Rm RoadDublin [place] [id number] Urea nitrogen [Mass/Vol] 16 mg/dL Normal 8-27 [facility]; [facility] Work Phone: Comment on above: PATIENT WAS FASTINGP ERFORMED BY: BEREKET [facility] Qreqda0546 Rm RoadDublin [place] [id number] Urea nitrogen/Creatinine [Mass ratio] 13 mg/mg Normal 10-24 [facility]; [facility] Work Phone: Comment on above: PATIENT WAS FASTINGP ERFORMED BY: BEREKET Labcoharmony Bypmnj3262 Rm [facility] HospitalDublin [place] [id number] MICROALB;CREAT RATION, RAND UR ([id number])Ordered By: Motorcycle Delivery Driver on 12-02-2022 Albumin DL <= 20 mg/L (U) [Mass/Vol] 29.1 ug/mL Normal [facility]; [facility] Work Phone: Comment on above: PATIENT WAS FASTINGP ERFORMED BY: BEREKET [facility] Uabcmi3216 Rm RoadDublin [place] [id number] Albumin/Creatinine (U) [Mass ratio] 22 {mg/g_creat} Normal 0-29 [facility]; [facility] Work Phone: Comment on above: Normal: 0 - 29 Moder ately increased: 30 - 300 Severely increased: >300 PATIENT WAS FASTINGP ERFORMED BY: BEREKET [facility] Qglddt5979 Rm RoadDublin [place] [id number] Creatinine (U) [Mass/Vol] 133.8 mg/dL Normal [facility]; [facility] Work Phone: Comment on above: PATIENT WAS FASTINGP ERFORMED BY: [employer] Rejfzr3125 [facility] [id number] PSA (PROSTATE SPECIFIC ANTIG EN) ([id number])Ordered By: Motorcycle Delivery Driver on 12-02-2022 Prostate specific Ag [Mass/Vol] 1.4 ng/mL Normal 0.0-4.0 [facility]; [facility] Work Phone: Comment on above: [employer] [place] ECLIA methodol ogy. .According to the [employer], Serum PSA shoulddecrease and remain at undetectable levels after radicalprostatectomy. The AUA defines biochemical recurrence as an initialPSA value 0.2 ng/mL or greater followed by a subsequent confirmatoryPSA value 0.2 ng/mL or greater.Values obtained with different assay methods or kits cannot be usedinterchangeably. Results cannot be interpreted as absolute evidenceof the presence or absence of malignant disease. PATIENT WAS FASTINGP ERFORMED BY: [employer] Idfcjh7815 Rm [facility] [id number] TSH (THYROID STIMULATING HOR JOHANA) ([id number])Ordered By: Motorcycle Delivery Driver on 12-02-2022 TSH Qn 5.160 {uIU/mL} Abnormal 0.450-4.50 0 [facility]; [facility] Work Phone: Comment on above: PATIENT WAS FASTINGP ERFORMED BY: [employer] Qgwkwp3424 [facility] [id number] URINALYSIS ([id number])Ordered By : Motorcycle Delivery Driver on 12-02-2022 Appearance (U) Clear Normal Comprehens jethro Internal Medicine; [facility] Work Phone: Comment on above: PATIENT WAS FASTINGP ERFORMED BY: [employer] Defiqq8069 [facility] [id number] Bilirubin Ql (U) Negative Normal Comprehe nsive Internal Medicine; [facility] Work Phone: Comment on above: PATIENT WAS FASTINGP ERFORMED BY: BEREKET [facility] Uadess3103 R[address] RoadDublin [place] [id number] Color (U) Yellow Normal [facility]; [facility] Work Phone: Comment on above: PATIENT WAS FASTINGP ERFORMED BY: BEREKET [facility] Qsutcx8179 Rm RoadDublin [place] [id number] Glucose Ql (U) Negative Normal Comprehens jethro Internal Medicine; [facility] Work Phone: Comment on above: PATIENT WAS FASTINGP ERFORMED BY: BEREKET [facility] Cbkevm8056 Rm RoadDublin [place] [id number] Hemoglobin Ql (U) Negative Normal Compreh ensive Internal Medicine; [facility] Work Phone: Comment on above: PATIENT WAS FASTINGP ERFORMED BY: BEREKET [facility] Hajrci4764 Rm RoadDublin [place] [id number] Ketones Ql (U) Negative Normal Comprehens jethro Internal Medicine; [facility] Work Phone: Comment on above: PATIENT WAS FASTINGP ERFORMED BY: BEREKET [facility] Uvxerm3504 Rm RoadDublin [place] [id number] Leukocyte esterase Test strip Ql (U) Negative Normal [facility]; [facility] Work Phone: Comment on above: PATIENT WAS FASTINGP ERFORMED BY: BEREKET [facility] Oydrpa9040 Rm RoadDublin [place] [id number] Microscopic observation LM Nom (Urine sed) See below: Normal [facility]; [facility] Work Phone: Comment on above: Microscopic was ramakrishna cated and was performed. PATIENT WAS FASTINGP ERFORMED BY: BEREKET [facility] Efvvqb8033 Rm RoadDublin [place] [id number] Nitrite Ql (U) Negative Normal Comprehens jethro Internal Medicine; [facility] Work Phone: Comment on above: PATIENT WAS FASTINGP ERFORMED BY: BEREKET [facility] Rhxkop2806 Rm RoadDublin [place] [id number] pH (U) 6.5 [pH] Normal 5.0-7.5 [facility]; [facility] Work Phone: Comment on above: PATIENT WAS FASTINGP ERFORMED BY: [employer] Vuvrzk6201 [facility] [id number] Protein Ql (U) 1+ Abnormal Comprehens jethro Internal Medicine; [facility] Work Phone: Comment on above: PATIENT WAS FASTINGP ERFORMED BY: [employer] CapitalAtlantic Rehabilitation InstituteYmhdjh3813 [facility] [id number] Specific gravity (U) [Rel density] 1.022 1 Normal 1.005-1.03 0 [facility]; [facility] Work Phone: Comment on above: PATIENT WAS FASTINGP ERFORMED BY: [employer] Lygxeb4434 [facility] [id number] Urobilinogen (U) [Mass/Vol] 1.0 mg/dL Normal 0.2-1.0 [facility]; [facility] Work Phone: Comment on above: PATIENT WAS FASTINGP ERFORMED BY: [employer] Kzjqfp6507 [facility] [id number] VITAMIN B12 AND FOLATES (826 07)Ordered By: Motorcycle Delivery Driver on 12-02-2022 Cobalamin (Vitamin B12) [Mass/Vol] 683 pg/mL Normal 232-1245 [facility]; [facility] Work Phone: Comment on above: PATIENT WAS FASTINGP ERFORMED BY: [employer] Fruhfi3364 [facility] [id number] Folate [Mass/Vol] 8.9 ng/mL Normal Compreh ensive Internal Medicine; [facility] Work Phone: Comment on above: A serum folate alaina ntration of less than 3.1 ng/mL isconsidered to represent clinical deficiency. PATIENT WAS FASTINGP ERFORMED BY: [employer] Kzrfga2006 Rm [facility]bl[facility] [place] [id number] Gel ABOon 05-24-2022 ABO/Rh Interp Negative Invalid Interpretation Code [facility] ([place]) Comment on above: Order Comment: Hemol yzed - please redraw 0642 SKS Performed By: #### A RUBYG, ABOG #### [place] [address] [place], [place] [address] Gel ABSon 05-24-2022 Antibody Screen Gel Negative Normal [facility] ([place]) Comment on above: Performed By: #### A RUBYG, ABOG #### [address] [place] [address] [place], [place] [address] LABORATORYOrdered By: Marisol Lord on 05-24-2022 ABO/Rh Interp Negative Invalid Interpretation Code AO BB SS Antibody Screen Gel Negative ABSC (05/24/22 6:53 AM) Invalid Interpretation Code AO BB SS XR KNEE 1 OR 2 VIEWS RIGHTon 05-24-2022 XR KNEE 1 OR 2 VIEWS RIGHT ORIGINAL EXAMINATION: TWO XRAY VIEWS OF THE RIGHT KNEE 05/24/2022 9:12 am COMPARISON: None HISTORY: ORDERING SYSTEM PROVIDED HISTORY: Reason for Exam: Status Post Arthroplasty FINDINGS: A complete knee prosthesis is identified. The components appear well seated and intact. No acute fracture or dislocation. Gas and fluid in the soft tissues may be related to media postoperative state. Surgical isiah overlie the skin anteriorly. IMPRESSION: Surgical changes. Interpreted by: Hodan Gordillo MD Preliminary Report By: Hodan Gordillo MD Electronically signed By Hodan Gordillo MD Dictated Date: 05/24/2022 9:13:34 AM Prelim Date: 05/24/2022 9:14:29 AM Sign Date: 05/24/2022 9:14:29 AM Ordering Provider: MIYA Trammell [facility] ([place]) CT KNEE W/O CONTRAST RIGHTon 05-02-2022 CT KNEE W/O CONTRAST RIGHT ORIGINAL EXAMINATION: CT OF THE RIGHT KNEE WITHOUT CONTRAST 05/02/2022 10:59 am TECHNIQUE: CT of the right knee was performed without the administration of intravenous contrast. Multiplanar reformatted images are provided for review. Automated exposure control, iterative reconstruction, and/or weight based adjustment of the mA/kV was utilized to reduce the radiation dose to as low as reasonably achievable. COMPARISON: None. HISTORY ORDERING SYSTEM PROVIDED HISTORY: Reason for Exam: VALGUS DEFORMITY. Pain. FINDINGS: No acute fracture or dislocation is. A diffuse mild decrease in osseous mineralization is seen. No visible aggressive osseous lesions. Moderate joint space narrowing is noted of the medial femorotibial compartment with marginal osteophytes. Moderate to severe joint space narrowing is noted the lateral femorotibial compartment with subchondral sclerosis, subchondral cysts, and marginal osteophytes. A central osteophyte is also present of the anterior weight-bearing lateral femoral condyle. Mild to moderate patellofemoral compartment joint space narrowing is noted with small marginal osteophytes. No significant knee effusion. No significant volume of fluid is evident of a popliteal cyst. Visible tendons appear grossly intact. Ligaments are poorly evaluated on this examination. No severe muscle atrophy. Provided images of the right hip and right hemipelvis exhibit no acute osseous abnormalities or aggressive osseous lesions. No acute process is noted of the included intrapelvic structures. Enlarged prostate with dystrophic parenchymal calcification. Provided images of the ankle exhibit no acute osseous abnormalities or aggressive osseous lesions. Mild vascular calcifications. IMPRESSION: 1. No acute osseous abnormalities or aggressive osseous lesions. 2. 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 Interpreted by: Michael Henry DO Preliminary Report By: Michael Henry DO Electronically signed By Michael Henry DO Dictated Date: 05/02/2022 11:46:50 AM Prelim Date: 05/02/2022 11:53:14 AM Sign Date: 05/02/2022 11:53:14 AM Ordering Provider: MIYA PARRA [facility] ([place]) CBC with auto diff ([id number])Or dered By: Motorcycle Delivery Driver on 04-12-2022 Basophils (Bld) [#/Vol] 0.1 10*3/uL Normal 0.0-0.2 [facility]; [facility] Work Phone: Comment on above: prior to sx in 2021; PATIENT WAS FASTINGPERFORMED BY: LabBoke6370 [facility] [id number] Basophils/100 WBC (Bld) 1 % Normal [facility]; [facility] Work Phone: Comment on above: prior to sx in 2021; PATIENT WAS FASTINGPERFORMED BY: [employer] LabBoke6370 [facility] [id number] Eosinophils (Bld) [#/Vol] 0.3 10*3/uL Normal 0.0-0.4 [facility]; [facility] Work Phone: Comment on above: prior to sx in 2021; PATIENT WAS FASTINGPERFORMED BY: BEREKET [facility] Mrzjec7742 [facility] [id number] Eosinophils/100 WBC (Bld) 3 % Normal [facility]; [facility] Work Phone: Comment on above: prior to sx in 2021; PATIENT WAS FASTINGPERFORMED BY: Labcox north Fxtori8000 [facility] [id number] Erythrocyte distribution width (RBC) [Ratio] 13.6 % Normal 11.6-15.4 [facility]; [facility] Work Phone: Comment on above: prior to sx in 2021; PATIENT WAS FASTINGPERFORMED BY: [facility]Br[facility]6370 [facility] [id number] Hematocrit (Bld) [Volume fraction] 46.0 % Normal 37.5-51.0 [facility]; [facility] Work Phone: Comment on above: prior to sx in 2021; PATIENT WAS FASTINGPERFORMED BY: Labcox north Yhnoji6067 [facility] [id number] Hemoglobin (Bld) [Mass/Vol] 15.7 g/dL Normal 13.0-17.7 [facility]; [facility] Work Phone: Comment on above: prior to sx in 2021; PATIENT WAS FASTINGPERFORMED BY: Lab[facility] north Jczrcc3632 [facility] [id number] Immature granulocytes (Bld) [#/Vol] 0.1 10*3/uL Normal 0.0-0.1 [facility]; [facility] Work Phone: Comment on above: prior to sx in 2021; PATIENT WAS FASTINGPERFORMED BY: [facility] north Acokhj2058 [facility] [id number] Immature granulocytes/100 WBC (Bld) 1 % Normal [facility]; [facility] Work Phone: Comment on above: prior to sx in 2021; PATIENT WAS FASTINGPERFORMED BY: [facility] Tcrupx7954 Rm [facility]bl[facility] [place] [id number] Lymphocytes (Bld) [#/Vol] 2.1 10*3/uL Normal 0.7-3.1 [facility]; [facility] Work Phone: Comment on above: prior to sx in 2021; PATIENT WAS FASTINGPERFORMED BY: [facility] Nxzfzv1287 Rm RoadDublin [place] [id number] Lymphocytes/100 WBC (Bld) 25 % Normal [facility]; [facility] Work Phone: Comment on above: prior to sx in 2021; PATIENT WAS FASTINGPERFORMED BY: Labcox north Bhaxiq8143 Rm [facility] [place] [id number] MCH (RBC) [Entitic mass] 28.8 pg Normal 26.6-33.0 [facility]; [facility] Work Phone: Comment on above: prior to sx in 2021; PATIENT WAS FASTINGPERFORMED BY: [facility] Kcgolb1234 Rm [facility]bl[facility] [place] [id number] MCHC (RBC) [Mass/Vol] 34.1 g/dL Normal 31.5-35.7 [facility] prehensive Internal Medicine; [facility] Work Phone: Comment on above: prior to sx in 2021; PATIENT WAS FASTINGPERFORMED BY: [facility] Czdrls0220 Rm [facility] [place] [id number] MCV (RBC) [Entitic vol] 84 fL Normal 79-97 [facility]; [facility] Work Phone: Comment on above: prior to sx in 2021; PATIENT WAS FASTINGPERFORMED BY: [facility] Dmctrw3887 Rm RoadDublin [place] [id number] Monocytes (Bld) [#/Vol] 0.7 10*3/uL Normal 0.1-0.9 [facility]; [facility] Work Phone: Comment on above: prior to sx in 2021; PATIENT WAS FASTINGPERFORMED BY: CB [facility] Mhqmuc4193 Rm RoadDublin [place] [id number] Monocytes/100 WBC (Bld) 8 % Normal [facility]; [facility] Work Phone: Comment on above: prior to sx in 2021; PATIENT WAS FASTINGPERFORMED BY: CB [facility] Tgoqqs9041 Rm RoadDublin [place] [id number] Neutrophils (Bld) [#/Vol] 5.1 10*3/uL Normal 1.4-7.0 [facility]; [facility] Work Phone: Comment on above: prior to sx in 2021; PATIENT WAS FASTINGPERFORMED BY: CB [facility] Khnmtt4217 Rm RoadDublin [place] [id number] Neutrophils/100 WBC (Bld) 62 % Normal [facility]; [facility] Work Phone: Comment on above: prior to sx in 2021; PATIENT WAS FASTINGPERFORMED BY: CB [facility] Wjcggg9606 Rm RoadDublin [place] [id number] Platelets (Bld) [#/Vol] 207 10*3/uL Normal 150-450 [facility]; [facility] Work Phone: Comment on above: prior to sx in 2021; PATIENT WAS FASTINGPERFORMED BY: CB [facility] Stebac6840 R[address] RoadDublin [place] [id number] RBC (Bld) [#/Vol] 5.46 10*6/uL Normal 4.14-5.80 [facility] Internal Medicine; [facility] Work Phone: Comment on above: prior to sx in 2021; PATIENT WAS FASTINGPERFORMED BY: CB [facility] Srmyyd6768 Rm RoadDublin [place] [id number] WBC (Bld) [#/Vol] 8.2 10*3/uL Normal 3.4-10.8 Compre [facility] Internal Medicine; [facility] Work Phone: Comment on above: prior to sx in 2021; PATIENT WAS FASTINGPERFORMED BY: CB [facility] Nlhxes5351 Rm RoadDublin [place] [id number] LIPID PANEL (51611)Ordered B y: Motorcycle Delivery Driver on 04-12-2022 Cholesterol [Mass/Vol] 155 mg/dL Normal 100-199 [facility]; [facility] Work Phone: Comment on above: may 2022; YELENA Bernal WAS FASTINGPERFORMED BY: CB [facility] Lbjsiy8248 R[address] RoadDublin [place] [id number] Cholesterol in HDL [Mass/Vol] 39 mg/dL Abnormal [facility]; [facility] Work Phone: Comment on above: may 2022; YELENA T WAS FASTINGPERFORMED BY: CB [facility] Oqnnfm0653 Rm RoadDublin [place] [id number] Triglyceride [Mass/Vol] 68 mg/dL Normal 0-149 [facility]; [facility] Work Phone: Comment on above: may 2022; YELENA T WAS FASTINGPERFORMED BY: CB [facility] Toaspi1044 R[address] RoadDublin [place] [id number] LIPID PANEL ([id number]) 13 mg/dL Normal 5-40 Compr ensive Internal Medicine; [facility] Work Phone: Comment on above: may 2022; YELENA T WAS FASTINGPERFORMED BY: CB [facility] Hnjrsd4632 R[address] RoadDublin [place] [id number] LIPID PANEL (41247) 103 mg/dL Abnormal 0-99 [facility]; [facility] Work Phone: Comment on above: may 2022; YELENA T WAS FASTINGPERFORMED BY: CB [facility] Hbkqhs6205 [address] RoadDublin [place] [id number] LIPID PANEL (85283) 2.6 {ratio} Normal 0.0-3.6 Comp [facility]; [facility] Work Phone: Comment on above: LDL/HDL Ratio Men Wo men 1/2 Avg.Risk 1.0 1.5 Avg.Risk 3.6 3.2 2X Avg.Risk 6.2 5.0 3X Avg.Risk 8.0 6.1 apr/may 2022; YELENA Bernal WAS FASTINGPERFORMED BY: CB [facility] Sybwoi1798 R[address] RoadDublin [place] [id number] METABOLIC PANEL, COMPREHENSI VE ([id number])Ordered By: Motorcycle Delivery Driver on 04-12-2022 Albumin [Mass/Vol] 4.2 g/dL Normal 3.8-4.8 [facility] Internal Medicine; [facility] Work Phone: Comment on above: prior to sx may ; PATIENT WAS FASTINGPERFORMED BY: [facility] Kkohdm4251 Rm RoadDublin [place] [id number] Albumin/Globulin [Mass ratio] 1.6 {ratio} Normal 1.2-2.2 [facility]; [facility] Work Phone: Comment on above: prior to sx may ; PATIENT WAS FASTINGPERFORMED BY: [facility] Axwumc2342 R[address] RoadDublin [place] [id number] ALP [Catalytic activity/Vol] 92 U/L Normal 44-121 [facility]; [facility] Work Phone: Comment on above: prior to sx may ; PATIENT WAS FASTINGPERFORMED BY: [facility] Mzlgqq3971 R[address] RoadDublin [place] [id number] ALT [Catalytic activity/Vol] 37 U/L Normal 0-44 [facility]; [facility] Work Phone: Comment on above: prior to sx may ; PATIENT WAS FASTINGPERFORMED BY: [facility] Aihrqh3658 R[address] RoadDublin [place] [id number] AST [Catalytic activity/Vol] 32 U/L Normal 0-40 [facility]; [facility] Work Phone: Comment on above: prior to sx may ; PATIENT WAS FASTINGPERFORMED BY: [facility] Znzdav5152 Rm RoadDublin [place] [id number] Bilirubin [Mass/Vol] 0.9 mg/dL Normal 0.0-1.2 Comp rehensive Internal Medicine; [facility] Work Phone: Comment on above: prior to sx may ; PATIENT WAS FASTINGPERFORMED BY: BEREKET [facility] Eucwgb1055 Rm Roadblin [place] [id number] Calcium [Mass/Vol] 9.9 mg/dL Normal 8.6-10.2 [facility] Internal Medicine; [facility] Work Phone: Comment on above: prior to sx may ; PATIENT WAS FASTINGPERFORMED BY: [facility] Zqmmtb9948 Rm RoadDublin [place] [id number] Chloride [Moles/Vol] 106 mmol/L Normal 96-106 [facility] rehensive Internal Medicine; [facility] Work Phone: Comment on above: prior to sx may ; PATIENT WAS FASTINGPERFORMED BY: BEREKET [facility] Puwaxu1780 Rm Roadblin [place] [id number] CO2 [Moles/Vol] 23 mmol/L Normal 20-29 [facility]; [facility] Work Phone: Comment on above: prior to sx may ; PATIENT WAS FASTINGPERFORMED BY: BEREKET [facility] Xecqio3991 [facility] [place] [id number] Creatinine [Mass/Vol] 1.26 mg/dL Normal 0.76-1.27 [facility]; [facility] Work Phone: Comment on above: prior to sx may ; PATIENT WAS FASTINGPERFORMED BY: [facility] Fkfjar0837 Rm [facility] [id number] GFR/1.73 sq M.predicted among non-blacks MDRD (S/P/Bld) [Vol rate/Area] 64 mL/min/{1.73_m2} Normal Comprehensiv e Internal Medicine; [facility] Work Phone: Comment on above: prior to sx may ; PATIENT WAS FASTINGPERFORMED BY: BEREKET [facility] Pquilx7087 Rm [facility] [place] [id number] Globulin (S) [Mass/Vol] 2.7 g/dL Normal 1.5-4.5 [facility]; [facility] Work Phone: Comment on above: prior to sx may ; PATIENT WAS FASTINGPERFORMED BY: BEREKET [facility] Aqevia2397 Rm RoadDublin [place] [id number] Glucose [Mass/Vol] 90 mg/dL Normal 70-99 [facility] Internal Medicine; [facility] Work Phone: Comment on above: Please note refere nce interval change prior to sx may ; PATIENT WAS FASTINGPERFORMED BY: BEREKET [facility] Zqgxvf7961 Rm RoadDublin [place] [id number] Potassium [Moles/Vol] 4.4 mmol/L Normal 3.5-5.2 [facility] Internal Medicine; [facility] Work Phone: Comment on above: prior to sx may ; PATIENT WAS FASTINGPERFORMED BY: BEREKET [facility] Rqzrip3398 Rm RoadDublin [place] [id number] Protein [Mass/Vol] 6.9 g/dL Normal 6.0-8.5 [facility] Internal Medicine; [facility] Work Phone: Comment on above: prior to sx may ; PATIENT WAS FASTINGPERFORMED BY: BEREKET [facility] Gypjho0163 [facility] [place] [id number] Sodium [Moles/Vol] 141 mmol/L Normal 134-144 [facility] Internal Medicine; [facility] Work Phone: Comment on above: prior to sx may ; PATIENT WAS FASTINGPERFORMED BY: [facility] Ufwjbc0322 [facility]in [place] [id number] Urea nitrogen [Mass/Vol] 18 mg/dL Normal 8-27 [facility]; [facility] Work Phone: Comment on above: prior to sx may ; PATIENT WAS FASTINGPERFORMED BY: [facility] Pozjop0986 [facility] [facility]in [place] [id number] Urea nitrogen/Creatinine [Mass ratio] 14 mg/mg Normal 10-24 [facility]; [facility] Work Phone: Comment on above: prior to sx may ; PATIENT WAS FASTINGPERFORMED BY: BEREKET [employer] Fmwlef9955 [facility] [id number] MICROALBUMINOrdered By: Syst em [employer] Process Control Technician on 04-12-2022 Albumin DL <= 20 mg/L (U) [Mass/Vol] 45.8 ug/mL Normal [facility]; [facility] Work Phone: Comment on above: prior to sx may ; PATIENT WAS FASTINGPERFORMED BY: BEREKET [place] Qsljhs5851 [facility] [id number] Albumin/Creatinine (U) [Mass ratio] 31 {mg/g_creat} Abnormal 0-29 [facility]; [facility] Work Phone: Comment on above: Normal: 0 - 29 Moder ately increased: 30 - 300 Severely increased: >300 prior to sx may ; PATIENT WAS FASTINGPERFORMED BY: BEREKET [place] [place] Ykgmly1718 [facility] [id number] Creatinine (U) [Mass/Vol] 147.0 mg/dL Normal [facility]; [facility] Work Phone: Comment on above: prior to sx may ; PATIENT WAS FASTINGPERFORMED BY: [employer] Houuwg2805 [facility] [id number] TSH (THYROID STIMULATING HOR JOHANA) ([id number])Ordered By: Motorcycle Delivery Driver on 01-12-2022 TSH Qn 4.560 {uIU/mL} Abnormal 0.450-4.50 0 [facility]; [facility] Work Phone: Comment on above: today; PATIENT NOT F ASTINGPERFORMED BY: BEREKET [facility]ienBronson [facility]6370 [facility] [id number] Gel ABOon 08-31-2021 ABO/Rh Interp Negative Invalid Interpretation Code [facility] ([place]) Comment on above: Performed By: #### A NSG, ABOG #### Marisa [address] [address] Gel ABSon 08-31-2021 Antibody Screen Gel Negative Normal [facility] ([place]) Comment on above: Performed By: #### A JUAN, ABOG #### [address] [address] XR KNEE 1 OR 2 VIEWS LEFTon 08-31-2021 XR KNEE 1 OR 2 VIEWS LEFT ORIGINAL EXAMINATION: POSTOPERATIVE KNEE TECHNIQUE: 2 views of the left knee were obtained. COMPARISON: CT knee 08/13/2021 HISTORY: ORDERING SYSTEM PROVIDED HISTORY: Reason for Exam: Status Post Arthroplasty FINDINGS: There is normal mineralization. No acute fracture or dislocation is seen. The patient is status post left knee replacement with appropriate positioning of the prosthesis. There are postsurgical changes with a small joint effusion. IMPRESSION: Status post left knee replacement. Interpreted by: Danny Dawson MD Preliminary Report By: Danny aDwson MD Electronically signed By Danny Dawson MD Dictated Date: 08/31/2021 1:50:33 PM Prelim Date: 08/31/2021 1:51:08 PM Sign Date: 08/31/2021 1:51:08 PM Ordering Provider: MIYA PARRA Normal [facility]) Gel ABOon 08-17-2021 ABO/Rh Interp Negative Invalid Interpretation Code [facility]) Comment on above: Performed By: #### A RAMON PETER #### [address] [address] Gel ABSon 08-17-2021 Antibody Screen Gel Negative Normal [facility]) Comment on above: Performed By: #### A RAMON PETER #### [address] [address] LABORATORYOrdered By: Marisol Lord on 08-17-2021 ABO/Rh Interp Negative Invalid Interpretation Code AO BB SS Antibody Screen Gel Negative [facility] (08/17/21 9:13 AM) Invalid Interpretation Code AO BB SS XR CHEST 2 VIEWSon 2 XR CHEST 2 VIEWS ORIGINAL EXAMINATION: TWO XRAY VIEWS OF THE CHEST 08/17/2021 9:34 am COMPARISON: None. HISTORY: ORDERING SYSTEM PROVIDED HISTORY: Reason for Exam: Pre-surgical chest x-ray, for knee surgery FINDINGS: The cardiomediastinal silhouette is within normal limits. Atherosclerotic calcifications of the aortic arch. No pleural effusion. No vascular congestion, focal consolidation, or pneumothorax. No acute osseous process. Right hemidiaphragm eventration. IMPRESSION: No acute radiographic process. I have personally reviewed the images of this examination and agree with the resident's findings interpretations. Interpreted by: Phill Gordon MD Preliminary Report By: Yanet Maldonado Electronically signed By Phill Gordon MD Dictated Date: 08/17/2021 11:32:04 AM Prelim Date: 08/17/2021 11:42:24 AM Sign Date: 08/17/2021 11:42:24 AM Ordering Provider: MIYA PARRA [facility] ([place]) CT KNEE W/O CONTRAST LEFTon 08-13-2021 CT KNEE W/O CONTRAST LEFT ORIGINAL EXAMINATION: CT OF THE LEFT KNEE WITHOUT CONTRAST 08/13/2021 1:10 pm TECHNIQUE: CT of the left knee was performed without the administration of intravenous contrast. Multiplanar reformatted images are provided for review. Dose modulation, iterative reconstruction, and/or weight based adjustment of the mA/kV was utilized to reduce the radiation dose to as low as reasonably achievable. COMPARISON: None. HISTORY ORDERING SYSTEM PROVIDED HISTORY: Reason for Exam: VALGUS DEFORMITY FINDINGS: No acute fracture or dislocation is identified. A diffuse decrease in osseous mineralization is evident. No visualized aggressive osseous lesions. Mild periosteal irregularity is noted of the medial/proximal fibular cortex, likely at the attachment of the intraosseous membrane. Atxw-fs-qwglarxg joint space narrowing with marginal and sizable central osteophytes noted of the medial femorotibial compartment. Moderate osteoarthrosis is present of the lateral femorotibial compartment with joint space narrowing, subchondral sclerosis, and marginal osteophyte formation. Mild joint space narrowing with marginal osteophyte formation is noted of the patellofemoral compartment. No significant knee joint effusion. No significant popliteal cyst. Visualized tendons are grossly intact. Ligaments are poorly evaluated on this exam. No significant muscular atrophy is seen. Nonspecific prepatellar subcutaneous soft tissue edema is seen. Subcutaneous venous varices are also noted. Vascular calcifications noted. Provided images of the pelvis and left hip exhibit no acute osseous abnormalities or aggressive osseous lesions. Provided images of the left ankle exhibit no acute osseous abnormalities or aggressive osseous lesions. Visualized intrapelvic contents exhibit no acute abnormalities. Suspected trace volume free fluid noted of the pelvis. Dystrophic calcifications are noted of the prostate which is mildly enlarged. IMPRESSION: 1. No acute osseous abnormalities or aggressive osseous lesions. 2. 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 Interpreted by: Michael Henry DO Preliminary Report By: Michael Henry DO Electronically signed By Michael Henry DO Dictated Date: 08/13/2021 1:14:03 PM Prelim Date: 08/13/2021 1:20:34 PM Sign Date: 08/13/2021 1:20:34 PM Ordering Provider: MIYA PARRA Normal [facility] ([place]) URINE BARRETT CULTURE (FELICITAS COL COUNT) ([id number])Ordered By: Motorcycle Delivery Driver on 08-11-2021 Bacteria identified Cx Nom (U) Final report Normal [facility]; [facility] Work Phone: Comment on above: PATIENT NOT FASTINGP ERFORMED BY: BEREKET LabAl Detal [facility] [id number] Information: SRC: Bacteria identified Cx Nom (U) MUG Normal [facility]; [facility] Work Phone: Comment on above: Mixed urogenital arturo ra1,000 Colonies/mL PATIENT NOT FASTINGP ERFORMED BY: Lab[facility] Detal [facility] [id number] Information: SRC:AZUCENA Urinalysis, Office ([id number])Or dered By: Carlos Alberto Carrillo on 08-11-2021 Bilirubin Ql (U) Negative Normal Comprehe nsive Internal Medicine; [facility] Work Phone: Glucose Test strip (U) [Mass/Vol] Negative Normal [facility]; [facility] Work Phone: Hemoglobin Ql (U) Negative Normal Compreh ensive Internal Medicine; [facility] Work Phone: Ketones Ql (U) Negative Normal Comprehens jethro Internal Medicine; [facility] Work Phone: Leukocyte esterase Test strip Ql (U) Small Normal [facility]; [facility] Work Phone: Nitrite Ql (U) Negative Normal Comprehens jethor Internal Medicine; [facility] Work Phone: pH (U) 6 [pH] Abnormal [facility]; [facility] Work Phone: Protein Ql (U) Negative Normal Comprehens jethro Internal Medicine; [facility] Work Phone: Specific gravity (U) [Rel density] 1.030 1 Abnormal [facility]; [facility] Work Phone: Urobilinogen (24H U) [Mass/Time] Normal Normal [facility]; [facility] Work Phone: LIPID PANEL ([id number])Ordered B y: Motorcycle Delivery Driver on 06-16-2021 Cholesterol [Mass/Vol] 166 mg/dL Normal 100-199 [facility]; [facility] Work Phone: Comment on above: PATIENT WAS FASTINGP ERFORMED BY: BEREKET [facility] Ouvsku5113 [address] RoadDublin [place] [id number] Cholesterol in HDL [Mass/Vol] 40 mg/dL Normal [facility]; [facility] Work Phone: Comment on above: PATIENT WAS FASTINGP ERFORMED BY: BEREKET [facility] Pnicqj7988 Rm RoadDublin [place] [id number] Triglyceride [Mass/Vol] 94 mg/dL Normal 0-149 [facility]; [facility] Work Phone: Comment on above: PATIENT WAS FASTINGP ERFORMED BY: BEREKET [facility] Hqmtwq3118 Rm RoadDublin [place] [id number] LIPID PANEL (21942) 17 mg/dL Normal 5-40 Compr ensive Internal Medicine; [facility] Work Phone: Comment on above: PATIENT WAS FASTINGP ERFORMED BY: BEREKET [facility] Mnatkp7334 R[address] RoadDublin [place] [id number] LIPID PANEL (20407) 109 mg/dL Abnormal 0-99 Compr ensive Internal Medicine; [facility] Work Phone: Comment on above: PATIENT WAS FASTINGP ERFORMED BY: BEREKET [facility] Qnexft0532 Rm RoadDublin [place] [id number] LIPID PANEL (45924) 2.7 {ratio} Normal 0.0-3.6 Comp [facility]; [facility] Work Phone: Comment on above: LDL/HDL Ratio Men Wo men 1/2 Avg.Risk 1.0 1.5 Avg.Risk 3.6 3.2 2X Avg.Risk 6.2 5.0 3X Avg.Risk 8.0 6.1 PATIENT WAS FASTINGP ERFORMED BY: CB [facility] Tdlpcw1844 Rm RoadDublin [place] [id number] Metabolic Panel, Comprehensi ve ([id number])Ordered By: Motorcycle Delivery Driver on 06-16-2021 Albumin [Mass/Vol] 4.4 g/dL Normal 3.8-4.8 [facility] Internal Medicine; [facility] Work Phone: Comment on above: PATIENT WAS FASTINGP ERFORMED BY: CB [facility] Pcgtvo1701 [address] RoadDublin [place] [id number] Albumin/Globulin [Mass ratio] 1.8 {ratio} Normal 1.2-2.2 [facility]; [facility] Work Phone: Comment on above: PATIENT WAS FASTINGP ERFORMED BY: CB [facility] Fqxzzc3938 Rm RoadDublin [place] [id number] ALP [Catalytic activity/Vol] 73 U/L Normal 44-121 [facility]; [facility] Work Phone: Comment on above: Please note refere nce interval change PATIENT WAS FASTINGP ERFORMED BY: CB [facility] Jwfifk5521 Rm RoadDublin [place] [id number] ALT [Catalytic activity/Vol] 33 U/L Normal 0-44 [facility]; [facility] Work Phone: Comment on above: PATIENT WAS FASTINGP ERFORMED BY: CB [facility] Hygrze8290 Rm RoadDublin [place] [id number] AST [Catalytic activity/Vol] 29 U/L Normal 0-40 [facility]; [facility] Work Phone: Comment on above: PATIENT WAS FASTINGP ERFORMED BY: CB [facility] Bscwse1956 Rm RoadDublin [place] [id number] Bilirubin [Mass/Vol] 1.1 mg/dL Normal 0.0-1.2 Comp rehensive Internal Medicine; [facility] Work Phone: Comment on above: PATIENT WAS FASTINGP ERFORMED BY: BEREKET Oropeza6370 Jag [facility] HospitalPierreFormerly [facility] [id number] Calcium [Mass/Vol] 9.8 mg/dL Normal 8.6-10.2 [facility] Internal Medicine; [facility] Work Phone: Comment on above: PATIENT WAS FASTINGP ERFORMED BY: BEREKET Oropeza6370 [facility] [id number] Chloride [Moles/Vol] 104 mmol/L Normal 96-106 Comp rehensive Internal Medicine; [facility] Work Phone: Comment on above: PATIENT WAS FASTINGP ERFORMED BY: BEREKET Oropeza6370 [facility] [id number] CO2 [Moles/Vol] 23 mmol/L Normal 20-29 Comprehen [facility] Internal Medicine; [facility] Work Phone: Comment on above: PATIENT WAS FASTINGP ERFORMED BY: BEREKET Haddad Qhmuev8725 [facility] [id number] Creatinine [Mass/Vol] 1.38 mg/dL Abnormal 0.76-1.27 Com prehensive Internal Medicine; [facility] Work Phone: Comment on above: PATIENT WAS FASTINGP ERFORMED BY: Catie Flwqbm9006 [facility] [id number] GFR/1.73 sq M.predicted among blacks CKD-EPI (S/P/Bld) [Vol rate/Area] 62 mL/min/1.73 Normal [facility]; [facility] Work Phone: Comment on above: In accordance with recommendations from the NKF-ASN Task force, [facility] is in the process of updating its eGFR calculation to the 2020 CKD-EPI creatinine equation that estimates kidney function without a race variable. PATIENT WAS FASTINGP ERFORMED BY: Catie Yevbyk2893 [facility] [id number] GFR/1.73 sq M.predicted among non-blacks CKD-EPI (S/P/Bld) [Vol rate/Area] 54 mL/min/1.73 Abnormal [facility]; [facility] Work Phone: Comment on above: PATIENT WAS FASTINGP ERFORMED BY: BEREKET [facility] Tdgfdq6961 Rm RoadSentara Albem[facility]le [facility] Centerin [place] [id number] Globulin (S) [Mass/Vol] 2.4 g/dL Normal 1.5-4.5 [facility] Internal Medicine; [facility] Work Phone: Comment on above: PATIENT WAS FASTINGP ERFORMED BY: [facility] Zoxtqa7418 Rm RoadSentara Albemarle Medical Centerin [place] [id number] Glucose [Mass/Vol] 87 mg/dL Normal 65-99 [facility] Internal Medicine; [facility] Work Phone: Comment on above: PATIENT WAS FASTINGP ERFORMED BY: [facility] Lnhcij7387 Rm [facility] [id number] Potassium [Moles/Vol] 4.4 mmol/L Normal 3.5-5.2 [facility] Internal Medicine; [facility] Work Phone: Comment on above: PATIENT WAS FASTINGP ERFORMED BY: [facility] Qplncf9890 [facility] [id number] Protein [Mass/Vol] 6.8 g/dL Normal 6.0-8.5 [facility] Internal Medicine; [facility] Work Phone: Comment on above: PATIENT WAS FASTINGP ERFORMED BY: [facility] Ghwwai7176 [facility] [place] [id number] Sodium [Moles/Vol] 139 mmol/L Normal 134-144 [facility] Internal Medicine; [facility] Work Phone: Comment on above: PATIENT WAS FASTINGP ERFORMED BY: [facility] Yqfdth4351 [facility]in [place] [id number] Urea nitrogen [Mass/Vol] 17 mg/dL Normal 8-27 [facility]; [facility] Work Phone: Comment on above: PATIENT WAS FASTINGP ERFORMED BY: [employer] Vatuid0174 [facility] [id number] Urea nitrogen/Creatinine [Mass ratio] 12 mg/mg Normal 10-24 [facility]; [facility] Work Phone: Comment on above: PATIENT WAS FASTINGP ERFORMED BY: [employer] Nimffx9375 [facility] [id number] PSA (PROSTATE SPECIFIC ANTIG EN) (V76.44)Ordered By: Motorcycle Delivery Driver on 06-16-2021 Prostate specific Ag [Mass/Vol] 1.2 ng/mL Normal 0.0-4.0 [facility]; [facility] Work Phone: Comment on above: [employer] [place] ECLIA methodol ogy. .According to the [place] [employer], Serum PSA shoulddecrease and remain at undetectable levels after radicalprostatectomy. The AUA defines biochemical recurrence as an initialPSA value 0.2 ng/mL or greater followed by a subsequent confirmatoryPSA value 0.2 ng/mL or greater.Values obtained with different assay methods or kits cannot be usedinterchangeably. Results cannot be interpreted as absolute evidenceof the presence or absence of malignant disease. PATIENT WAS FASTINGP ERFORMED BY: [employer] Hktvjo9273 [facility] [id number] TSH (THYROID STIMULATING HOR JOHANA) ([id number])Ordered By: Motorcycle Delivery Driver on 06-16-2021 TSH Qn 5.890 {uIU/mL} Abnormal 0.450-4.50 0 [facility]; [facility] Work Phone: Comment on above: PATIENT WAS FASTINGP ERFORMED BY: [employer] Dlloqh5230 [facility] [id number] TSH (THYROID STIMULATING HOR JOHANA) ([id number])Ordered By: Motorcycle Delivery Driver on 04-23-2021 TSH Qn 4.210 {uIU/mL} Normal 0.450-4.50 0 [facility]; [facility] Work Phone: Comment on above: PATIENT NOT FASTINGP ERFORMED BY: [facility] Cijykt2339 [facility] [id number] TSH (THYROID STIMULATING HOR JOHANA) ([id number])Ordered By: Motorcycle Delivery Driver on 02-05-2021 TSH Qn 8.560 {uIU/mL} Abnormal 0.450-4.50 0 [facility]; [facility] Work Phone: Comment on above: PATIENT NOT FASTINGP ERFORMED BY: BEREKET NicoleSamm MonroeOqujib1908 Rm [facility]bl[facility] [place] [id number] PSA (PROSTATE SPECIFIC ANTIG EN) (V76.44)Ordered By: Motorcycle Delivery Driver on 05-24-2019 Prostate specific Ag [Mass/Vol] 1.5 ng/mL Normal 0.0-4.0 [facility] Work Phone: Comment on above: [employer] [place] ECLIA methodol ogy. .According to the [place], Serum PSA shoulddecrease and remain at undetectable levels after radicalprostatectomy. The AUA defines biochemical recurrence as an initialPSA value 0.2 ng/mL or greater followed by a subsequent confirmatoryPSA value 0.2 ng/mL or greater.Values obtained with different assay methods or kits cannot be usedinterchangeably. Results cannot be interpreted as absolute evidenceof the presence or absence of malignant disease. PATIENT NOT FASTINGP ERFORMED BY: BEREKET Monroelin6370 Rm NameMediaSentara Albemarle Medical Centerin [place] [id number] Lipid Panel ([id number])Ordered B y: Motorcycle Delivery Driver on 03-13-2019 Cholesterol [Mass/Vol] 150 mg/dL Normal 100-199 [facility] Internal Medicine Work Phone: Comment on above: PATIENT WAS FASTINGP ERFORMED BY: BEREKET LabCoharmony Jlyseh9120 Rm NameMediaSentara Albemarle Medical Centerin [place] [id number] Cholesterol in HDL [Mass/Vol] 47 mg/dL Normal [facility] Work Phone: Comment on above: PATIENT WAS FASTINGP ERFORMED BY: BEREKET [facility] Oscyyh5753 Rm NameMediablin [place] [id number] Cholesterol in LDL [Mass/Vol] 93 mg/dL Normal 0-99 [facility] Work Phone: Comment on above: PATIENT WAS FASTINGP ERFORMED BY: BEREKET [facility] Hfwuqe0300 Rm NameMediablin [place] [id number] Cholesterol in LDL/Cholesterol in HDL [Mass ratio] 2.0 {ratio} Normal 0.0-3.6 [facility] Work Phone: Comment on above: LDL/HDL Ratio Men Wo men 1/2 Avg.Risk 1.0 1.5 Avg.Risk 3.6 3.2 2X Avg.Risk 6.2 5.0 3X Avg.Risk 8.0 6.1 PATIENT WAS FASTINGP ERFORMED BY: BEREKET [facility] Ayjrbt9880 Rm [facility] Hospitalbl[facility] [place] [id number] Cholesterol in VLDL [Mass/Vol] 10 mg/dL Normal 5-40 [facility] Work Phone: Comment on above: PATIENT WAS FASTINGP ERFORMED BY: BEREKET [facility] Kxmezq1436 [facility] [place] [id number] Triglyceride [Mass/Vol] 52 mg/dL Normal 0-149 [facility] Work Phone: Comment on above: PATIENT WAS FASTINGP ERFORMED BY: BEREKET [facility] Ljodji6584 Rm [facility] [id number] Metabolic Panel, Comprehensi ve ([id number])Ordered By: Motorcycle Delivery Driver on 03-13-2019 Albumin [Mass/Vol] 3.9 g/dL Normal 3.6-4.8 [facility] Internal Medicine Work Phone: Comment on above: PATIENT WAS FASTINGP ERFORMED BY: BEREKET [facility] Qofvyn0396 [facility] [place] [id number] Albumin/Globulin [Mass ratio] 1.6 {ratio} Normal 1.2-2.2 [facility] Work Phone: Comment on above: PATIENT WAS FASTINGP ERFORMED BY: BEREKET [facility] Woefcv4153 Rm [facility] Hospitalblin [place] [id number] ALP [Catalytic activity/Vol] 79 [iU]/L Normal 39-117 [facility] Work Phone: Comment on above: PATIENT WAS FASTINGP ERFORMED BY: [facility] Frdaoz3339 [facility] [place] [id number] ALP [Catalytic activity/Vol] 79 U/L Normal 39-117 [facility]; [facility] Work Phone: Comment on above: PATIENT WAS FASTINGP ERFORMED BY: BEREKET LabSamm Oropeza6370 Rm RoadDublin [place] [id number] ALT [Catalytic activity/Vol] 35 [iU]/L Normal 0-44 [facility] Work Phone: Comment on above: PATIENT WAS FASTINGP ERFORMED BY: LabBilly Ijektq6236 Rm RoadDublin [place] [id number] ALT [Catalytic activity/Vol] 35 U/L Normal 0-44 [facility]; [facility] Work Phone: Comment on above: PATIENT WAS FASTINGP ERFORMED BY: LabBilly Bilusc3374 Rm RoadDublin [place] [id number] AST [Catalytic activity/Vol] 33 [iU]/L Normal 0-40 [facility] Internal Medicine Work Phone: Comment on above: PATIENT WAS FASTINGP ERFORMED BY: [facility] Eposjr5242 Rm RoadDublin [place] [id number] AST [Catalytic activity/Vol] 33 U/L Normal 0-40 [facility]; [facility] Work Phone: Comment on above: PATIENT WAS FASTINGP ERFORMED BY: Catie Khygjv2127 Rm RoadDublin [place] [id number] Bilirubin [Mass/Vol] 1.1 mg/dL Normal 0.0-1.2 [facility] Work Phone: Comment on above: PATIENT WAS FASTINGP ERFORMED BY: [facility]Mer[facility] Rmsrsr3313 Rm RoadDublin [place] [id number] Calcium [Mass/Vol] 9.3 mg/dL Normal 8.6-10.2 [facility] Internal Medicine Work Phone: Comment on above: PATIENT WAS FASTINGP ERFORMED BY: [facility] Ewzdnn7904 Rm RoadDublin [place] [id number] Chloride [Moles/Vol] 106 mmol/L Normal 96-106 Comp [facility] Work Phone: Comment on above: PATIENT WAS FASTINGP ERFORMED BY: CB [facility] Horcig9715 Rm RoadDublin [place] [id number] CO2 [Moles/Vol] 21 mmol/L Normal 20-29 [facility] Work Phone: Comment on above: PATIENT WAS FASTINGP ERFORMED BY: CB [facility] Rawmor2933 Rm RoadDublin [place] [id number] Creatinine [Mass/Vol] 1.16 mg/dL Normal 0.76-1.27 [facility] Work Phone: Comment on above: PATIENT WAS FASTINGP ERFORMED BY: CB [facility] Qthiux3655 Rm RoadDublin [place] [id number] GFR/1.73 sq M predicted among blacks CKD-EPI (S/P/Bld) [Vol rate/Area] 78 mL/min/1.73 Normal [facility] Work Phone: Comment on above: PATIENT WAS FASTINGP ERFORMED BY: CB [facility] Hawdig6104 Rm RoadDublin [place] [id number] GFR/1.73 sq M predicted among non-blacks CKD-EPI (S/P/Bld) [Vol rate/Area] 68 mL/min/1.73 Normal [facility] Internal Medicine Work Phone: Comment on above: PATIENT WAS FASTINGP ERFORMED BY: CB [facility] Htwikm8427 Rm RoadDublin [place] [id number] Globulin (S) [Mass/Vol] 2.4 g/dL Normal 1.5-4.5 [facility] Internal Medicine Work Phone: Comment on above: PATIENT WAS FASTINGP ERFORMED BY: CB [facility] Mellpv0735 Rm RoadDublin [place] [id number] Glucose [Mass/Vol] 85 mg/dL Normal 65-99 [facility] Internal Medicine Work Phone: Comment on above: PATIENT WAS FASTINGP ERFORMED BY: CB [facility] Vrqwak5030 Rm RoadDublin [place] [id number] Potassium [Moles/Vol] 4.1 mmol/L Normal 3.5-5.2 [facility] Internal Medicine Work Phone: Comment on above: PATIENT WAS FASTINGP ERFORMED BY: BEREKET LabCoharmony Ombfqy9748 [facility] [id number] Protein [Mass/Vol] 6.3 g/dL Normal 6.0-8.5 [facility] Internal Medicine Work Phone: Comment on above: PATIENT WAS FASTINGP ERFORMED BY: CB [facility] Eroxsa4928 [facility] [id number] Sodium [Moles/Vol] 140 mmol/L Normal 134-144 [facility] Internal Medicine Work Phone: Comment on above: PATIENT WAS FASTINGP ERFORMED BY: BEREKET LabCoharmony MonroePcyylh1414 [facility] [id number] Urea nitrogen [Mass/Vol] 21 mg/dL Normal 8-27 [facility] Internal Medicine Work Phone: Comment on above: PATIENT WAS FASTINGP ERFORMED BY: BEREKET [facility] Eunxwf2286 [facility] [id number] Urea nitrogen/Creatinine [Mass ratio] 18 mg/mg Normal 10-24 [facility] Internal Medicine Work Phone: Comment on above: PATIENT WAS FASTINGP ERFORMED BY: BEREKET Monroelin6370 [facility] [id number] Basic Metabolic Profile (BMP )Ordered By: Motorcycle Delivery Driver on 08-04-2018 Basic metabolic 2000 panel 76 mL/min Normal [facility] Work Phone: Comment on above: GFR Calc DR CHINO ORDERED LI SEA LIPIDMARY CIESA ORDERED LIPID TSH [facility] [address] [place], [address] Basic metabolic 2000 panel 62 mL/min Normal [facility] Work Phone: Comment on above: Non- GFR Calc DR CHINO ORDERED LI SEA LIPIDMARY CIESA ORDERED LIPID TSH [facility] [address] [place], [address] Basic metabolic 2000 panel 1.25 mg/dL Normal 0.70-1.30 [facility] Work Phone: Comment on above: The validity of the calculated GFR AND GFRAA in patients over70 years has not been determined. Clinical correlation isessential. DR CHINO ORDERED LI SEA LIPIDMARY CIESA ORDERED LIPID [facility] [address] [place], [place], [address] Basic metabolic 2000 panel 23.0 mmol/L Normal 21.0-32.0 [facility] Work Phone: Comment on above: DR CHINO ORDERED LI SEA LIPIDMARY CIESA ORDERED LIPID [facility] [address] [place], [address] Basic metabolic 2000 panel 17 mg/dL Normal 7-18 [facility] Work Phone: Comment on above: DR CHINO ORDERED LI SEA LIPIDMARY CIESA ORDERED LIPID [facility] [address] [place], [address] Basic metabolic 2000 panel 86 mg/dL Normal 74-106 [facility] Work Phone: Comment on above: Please note revised GLUCOSE reference range gyenesehn73/02/2018. DR CHINO ORDERED LI SEA LIPIDMARY CIESA ORDERED LIPID [facility] [address] [place], [place], [address] Basic metabolic 2000 panel 4.2 mmol/L Normal 3.5-5.1 [facility] Work Phone: Comment on above: DR CHINO ORDERED LI SEA LIPIDMARY CIESA ORDERED LIPID [facility] [address] [place], [place], [address] Basic metabolic 2000 panel 141 mmol/L Normal 136-145 [facility] Work Phone: Comment on above: DR CHINO ORDERED LI SEA LIPIDMARY CIESA ORDERED LIPID [facility] Ugby[address]ch[address] [place], [place], [address] Basic metabolic 2000 panel 8.4 mg/dL Abnormal 8.5-10.1 [facility] Work Phone: Comment on above: DR CHINO ORDERED LI SEA LIPIDMARY CIESA ORDERED LIPID TSH [facility] [address] [place], [place], [address] Basic metabolic 2000 panel 13.6 {RATIO} Normal 10-20 [facility] Work Phone: Comment on above: DR CHINO ORDERED LI SEA LIPIDMARY CIESA ORDERED LIPID TSH [facility] Ak[address]ie[address] [place], [place], [address] Basic metabolic 2000 panel 6 1 Normal 5-15 [facility] Work Phone: Comment on above: DR CHINO ORDERED LI SEA LIPIDMARY CIESA ORDERED LIPID [facility] [address] [place], [address] Basic metabolic 2000 panel 112 mmol/L Abnormal 98-107 [facility] Work Phone: Comment on above: DR CHINO ORDERED LI SEA LIPIDMARY CIESA ORDERED LIPID [facility] [address] [place], [address] Lipid ProfileOrdered By: Shaunna tem Biodiesel Process Control Technician on 08-04-2018 Cholesterol in HDL mass conc 41 mg/dL Normal [facility] Work Phone: Comment on above: The drugs N-Acetylcy steine and Metamizole may falselydepress this assay. Reference Range HDL <40 mg/dL Low HDL Cholesterol HDL >or= 60 mg/dL High HDL Cholesterol DR CHINO ORDERED LI SEA LIPIDMARY CIESA ORDERED LIPID TSH [facility] [address] [place], [address] Cholesterol in LDL mass conc 42 mg/dL Normal 0-130 [facility] Work Phone: Comment on above: DR CHINO ORDERED LI SEA LIPIDMARY CIESA ORDERED LIPID [facility] [address] [place], [address] Cholesterol in VLDL [Mass/Vol] 10 mg/dL Normal 5-40 [facility] Work Phone: Comment on above: DR CHINO ORDERED LI SEA LIPIDMARY CIESA ORDERED LIPID TSH [facility] [address] [place], [address] Cholesterol mass conc 93 mg/dL Normal Com prehensive Internal Medicine Work Phone: Comment on above: <200 mg/dL Desirable 200-240 mg/dL Borderline >240 mg/dL High Risk DR CHINO ORDERED LI SEA LIPIDMARY CIESA ORDERED LIPID TSH [facility] [address] [place], [address] Triglyceride mass conc 50 mg/dL Normal Co mprehensive [facility] Work Phone: Comment on above: The drugs N-Acetylcy steine and Metamizole may falselydepress this assay.Serum Triglycerides Reference Interval Normal <150 mg/dL Borderline high 150 - 199 mg/dL High 200 - 499 mg/dL Very High > or = 500 mg/dL DR CHINO ORDERED LI SEA LIPIDMARY CIESA ORDERED LIPID TSH [facility] [address] [place], [address] Lipid Profile 10 mg/dL Normal 5-40 Comprehensi Internal Medicine Work Phone: Comment on above: DR CHINO ORDERED LI SEA LIPIDMARY CIESA ORDERED LIPID TSH [facility] [address] [place], [place], [address] Liver ProfileOrdered By: brian tem Biodiesel Process Control Technician on 08-04-2018 Albumin mass conc 3.6 g/dL Normal 3.2-5.0 Compreh ensive Internal Medicine Work Phone: Comment on above: DR CHINO ORDERED LI SEA LIPIDMARY CIESA ORDERED LIPID TSH [facility] [address] [place], [address] ALP enzyme act/vol 81 U/L Normal 45-117 Compre hensive Internal Medicine Work Phone: Comment on above: DR CHINO ORDERED LI SEA LIPIDMARY CIESA ORDERED LIPID TSH [facility] [address] [place], [place], [address] ALT enzyme act/vol 65 U/L Abnormal 16-61 [facility] Internal Medicine Work Phone: Comment on above: DR CHINO ORDERED LI SEA LIPIDMARY CIESA ORDERED LIPID TSH [facility] Ey[address] [place], [place], [address](232 AST enzyme act/vol 41 U/L Abnormal 15-37 [facility] Internal Medicine Work Phone: Comment on above: DR CHINO ORDERED LI SEA LIPIDMARY CIESA ORDERED LIPID TSH [facility] [address] [place], [place], [address] Bilirubin mass conc 1.10 mg/dL Abnormal 0.20-1.00 [facility] Internal Medicine Work Phone: Comment on above: DR CHINO ORDERED LI SEA LIPIDMARY CIESA ORDERED LIPID TSH [facility] [address] [place], [address] Bilirubin.direct mass conc 0.34 mg/dL Abnormal 0.00-0.30 [facility] Internal Medicine Work Phone: Comment on above: DR CHINO ORDERED LI SEA LIPIDMARY CIESA ORDERED LIPID TSH [facility] [address] [place], [place], [address] Globulin mass conc (S) 3.3 g/dL Normal 2.2-4.2 [facility] Internal Medicine Work Phone: Comment on above: DR CHINO ORDERED LI SEA LIPIDMARY CIESA ORDERED LIPID TSH [facility] [address] [place], [place], [address] Hepatic function 2000 panel - Serum or Plasma 6.9 g/dL Normal 6.4-8.2 [facility] Internal Medicine Work Phone: Comment on above: DR CHINO ORDERED LI SEA LIPIDMARY CIESA ORDERED LIPID TSH [facility] [address] [place], [address] Hepatic function 2000 panel - Serum or Plasma 81 U/L Normal 45-117 [facility] Work Phone: Comment on above: DR CHINO ORDERED ARLETTE OSEI LIPIDMARY CIESA ORDERED LIPID TSH [facility] [address] [place], [address] Protein mass conc 6.9 g/dL Normal 6.4-8.2 Compreh ensive Internal Medicine Work Phone: Comment on above: DR CHINO ORDERED ARLETTE OSEI LIPIDSAGARY ALICEA ORDERED LIPID TSH [facility] [address] [place], [address] Thyroid Stim Hormone (TSH)Or dered By: Motorcycle Delivery Driver on 08-04-2018 Thyrotropin Qn 3.00 {uIU/mL} Normal 0.358-3.74 Compreh ensive Internal Medicine Work Phone: Comment on above: DR CHINO ORDERED ARLETTE OSEI LIPIDSAGARY ALICEA ORDERED LIPID TSH [facility] [address] [place], [address] CALCIFEDIOL (75072)Ordered B y: Motorcycle Delivery Driver on 05-21-2018 25-Hydroxyvitamin D2+25-Hydroxyvitamin D3 mass conc 37.9 ng/mL Normal 30.0-100.0 [facility] Work Phone: Comment on above: Vitamin D deficiency has been defined by the [place] ofMedicine and an Endocrine Society practice guideline as alevel of serum 25-OH vitamin D less than 20 ng/mL (1,2).The Endocrine Society went on to further define vitamin Dinsufficiency as a level between 21 and 29 ng/mL (2).1. IOM ([place] of [employer]). 2010. Dietary reference intakes for calcium and D. [place]: The National Academies Press.2. Alaina MF, Joan NC, Keily ANGLIN, et al. Evaluation, treatment, and prevention of vitamin D deficiency: an Endocrine Society clinical practice guideline. JCEM. 2010; 96(7):1911-30. PATIENT NOT FASTINGP ERFORMED BY: CB [facility] Wreoqe7515 R[address] RoadDublin [place] [id number] CBC & PLATELETS (AUTO) ([id number])Ordered By: Motorcycle Delivery Driver on 05-21-2018 Erythrocyte distribution width Ratio (RBC) 14.6 % Normal 12.3-15.4 [facility] Work Phone: Comment on above: PATIENT NOT FASTINGP ERFORMED BY: CB [facility] Wgjxtm4639 Rm RoadDublin [place] [id number] Hematocrit Volume Fraction (Bld) 46.5 % Normal 37.5-51.0 [facility] Work Phone: Comment on above: PATIENT NOT FASTINGP ERFORMED BY: CB [facility] Bswins8527 Rm RoadDublin [place] [id number] Hemoglobin mass conc (Bld) 15.4 g/dL Normal 13.0-17.7 [facility] Work Phone: Comment on above: PATIENT NOT FASTINGP ERFORMED BY: CB [facility] Bgxvdf7090 Rm RoadDuin [place] [id number] MCH Entitic mass (RBC) 28.9 pg Normal 26.6-33.0 [facility] Internal Medicine Work Phone: Comment on above: PATIENT NOT FASTINGP ERFORMED BY: CB [facility] Rjuswj7493 Rm RoadDublin [place] [id number] MCHC mass conc (RBC) 33.1 g/dL Normal 31.5-35.7 [facility] Internal Medicine Work Phone: Comment on above: PATIENT NOT FASTINGP ERFORMED BY: CB [facility] Uozszt7219 Rm RoadDublin [place] [id number] MCV Entitic volume (RBC) 87 fL Normal 79-97 [facility] Work Phone: Comment on above: PATIENT NOT FASTINGP ERFORMED BY: CB [facility] Qwiaqn0393 Rm RoadDublin [place] [id number] Platelets #/vol (Bld) 192 {x10E3/uL} Normal 150-379 [facility] Work Phone: Comment on above: PATIENT NOT FASTINGP ERFORMED BY: CB [facility] Ezsimm1956 Rm RoadDublin [place] [id number] Platelets (Bld) [#/Vol] 192 10*3/uL Normal 150-379 [facility]; [facility] Work Phone: Comment on above: PATIENT NOT FASTINGP ERFORMED BY: CB [facility] Xzrxsa2309 Rm RoadDublin [place] [id number] RBC #/vol (Bld) 5.32 {x10E6/uL} Normal 4.14-5.80 Comp [facility] Work Phone: Comment on above: PATIENT NOT FASTINGP ERFORMED BY: CB [facility] Ucesjl8678 Rm RoadDublin [place] [id number] RBC (Bld) [#/Vol] 5.32 10*6/uL Normal 4.14-5.80 Compr ensive Internal Medicine; [facility] Work Phone: Comment on above: PATIENT NOT FASTINGP ERFORMED BY: CB [facility] Rydvrb7636 Rm RoadDublin [place] [id number] WBC #/vol (Bld) 10.9 {x10E3/uL} Abnormal 3.4-10.8 [facility] Work Phone: Comment on above: PATIENT NOT FASTINGP ERFORMED BY: CB [facility] Phyjyi1759 Rm RoadDublin [place] [id number] WBC (Bld) [#/Vol] 10.9 10*3/uL Abnormal 3.4-10.8 [facility]; [facility] Work Phone: Comment on above: PATIENT NOT FASTINGP ERFORMED BY: CB [facility] Jplicu0602 Rm RoadDublin [place] [id number] IRON ([id number])Ordered By: Syst em Biodiesel Process Control Technician on 05-21-2018 Iron mass conc 112 ug/dL Normal 38-169 Comprehens [facility] Internal Medicine Work Phone: Comment on above: PATIENT NOT FASTINGP ERFORMED BY: CB [facility] Iuhqxs0923 Rm RoadDublin [place] [id number] TSH (THYROID STIMULATING HOR JOHANA) ([id number])Ordered By: Motorcycle Delivery Driver on 05-21-2018 Thyrotropin Qn 5.030 {uIU/mL} Abnormal 0.450-4.50 0 [facility] Work Phone: Comment on above: PATIENT NOT FASTINGP ERFORMED BY: BEREKET [facility] Iiyrni6849 [facility] [id number] Free X5Ksgxusx By: System Bruce gonzalez on 04-07-2018 T3 free mass conc 2.5 pg/mL Normal 2.18-3.98 Compreh ensive Internal Medicine Work Phone: Comment on above: Comments: DO NOT DO THESE UNTIL MATTI ORDERED [facility]SH [facility] [address] [place], [address] PSA,Total - Annual ScreenOrd ered By: Motorcycle Delivery Driver on 04-07-2018 Prostate specific Ag mass conc 1.06 ng/mL Normal 0.00-4.00 [facility] Work Phone: Comment on above: This test was perfor med using the TPSA assay method for [employer] chemistry system. Values obtained with differentassay methods cannot be used interchangably.When changing PSA assays in the course of monitoring apatient, additional sequential testing should be carriedout to confirm baseline values. Comments: DO NOT DO THESE UNTIL MATTI ORDERED TSH [facility]4 [facility]University [facility] [address]gex[address] [place], [address] T4 Free DirectOrdered By: Sy stem Biodiesel Process Control Technician on 04-07-2018 T4 free mass conc 1.17 ng/dL Normal 0.76-1.46 Compreh ensive Internal Medicine Work Phone: Comment on above: Comments: DO NOT DO THESE UNTIL MATTI ORDERED TSH [facility]4 [facility] [address] [place], [address] T4 Total, ThyroxinOrdered By : Motorcycle Delivery Driver on 04-07-2018 T4 mass conc 12.4 ug/dL Abnormal 4.5-12.1 Comprehensiv e Internal Medicine Work Phone: Comment on above: Comments: DO NOT DO THESE UNTIL CHINO ORDERED [facility]SH [facility] [address]ft[address] [place], [address] Thyroid Stim Hormone (TSH)Or dered By: Motorcycle Delivery Driver on 04-07-2018 Thyrotropin Qn 4.02 {uIU/mL} Abnormal 0.358-3.74 Compreh ensive Internal Medicine Work Phone: Comment on above: Comments: DO NOT DO THESE UNTIL MATTI ORDERED TSH [facility]4 ONLYUniversity [facility] [address] [place], [address] Free A1Mocmubm By: System Bruce gonzalez on 02-16-2018 T3 free mass conc 2.5 pg/mL Normal 2.18-3.98 Compreh ensive Internal Medicine Work Phone: Comment on above: [facility] [address] [place], [address] PSA,Total - Annual ScreenOrd ered By: Motorcycle Delivery Driver on 02-16-2018 Prostate specific Ag mass conc 1.68 ng/mL Normal 0.00-4.00 [facility] Work Phone: Comment on above: This test was perfor med using the TPSA assay method for thePapayaMobile chemistry system. Values obtained with differentassay methods cannot be used interchangably.When changing PSA assays in the course of monitoring apatient, additional sequential testing should be carriedout to confirm baseline values. [facility] [address] [place], [address] T4 Free DirectOrdered By: Sy stem Biodiesel Process Control Technician on 02-16-2018 T4 free mass conc 1.09 ng/dL Normal 0.76-1.46 Compreh ensive Internal Medicine Work Phone: Comment on above: [facility] [address] [place], [address] Thyroid Stim Hormone (TSH)Or dered By: Motorcycle Delivery Driver on 02-16-2018 Thyrotropin Qn 3.72 {uIU/mL} Normal 0.358-3.74 Compreh ensive Internal Medicine Work Phone: Comment on above: [facility] [address] [place], [place], [address] Basic Metabolic Profile (BMP )Ordered By: Motorcycle Delivery Driver on 01-31-2018 Basic metabolic 2000 panel 70 mL/min Normal [facility] Work Phone: Comment on above: GFR Calc [facility] [address] [place], [place], [address] Basic metabolic 2000 panel 104 mg/dL Normal 74-106 [facility] Work Phone: Comment on above: Fasting Glucose resu lt from 100 to 125 mg/dLsuggests IMPAIRED HOMEOSTASIS per A.D.A. criteria.Please note revised GLUCOSE reference range nvsftjsoh60/02/2018. [place] [address] [place], [place], [address] Basic metabolic 2000 panel 1.33 mg/dL Abnormal 0.70-1.30 [facility] Work Phone: Comment on above: The validity of the calculated GFR AND GFRAA in patients over70 years has not been determined. Clinical correlation isessential. [facility] [address] [place], [place], [address] Basic metabolic 2000 panel 21 mg/dL Abnormal 7-18 [facility] Work Phone: Comment on above: [facility] [address] [place], [place], [address] Basic metabolic 2000 panel 66.75 ml/min Normal [facility] Work Phone: Comment on above: [facility] [address] [place], [place], [address] Basic metabolic 2000 panel 8 1 Normal 5-15 [facility] Work Phone: Comment on above: [facility] [address] [place], [place], [address] Basic metabolic 2000 panel 24.0 mmol/L Normal 21.0-32.0 [facility] Work Phone: Comment on above: [facility] [address] [place], [place], [address] Basic metabolic 2000 panel 112 mmol/L Abnormal 98-107 [facility] Work Phone: Comment on above: [facility] [address] [place], [place], [address] Basic metabolic 2000 panel 4.3 mmol/L Normal 3.5-5.1 [facility] Work Phone: Comment on above: [facility] [address] [place], [place], [address] Basic metabolic 2000 panel 144 mmol/L Normal 136-145 [facility] Work Phone: Comment on above: [facility] [address] [place], [place], [address] Basic metabolic 2000 panel 9.0 mg/dL Normal 8.5-10.1 [facility] Work Phone: Comment on above: [facility] [address] [place], [place], [address] Basic metabolic 2000 panel 15.8 {RATIO} Normal 10-20 [facility] Work Phone: Comment on above: [facility] [address] [place], [place], [address] Basic metabolic 2000 panel 58 mL/min Abnormal [facility] Work Phone: Comment on above: Non- GFR Calc [facility] [address] [place], [place], [address] CBC W/Diff, AutomatedOrdered By: Motorcycle Delivery Driver on 01-31-2018 Absolute Neut 5.9 {X10_3/uL} Normal 2.0-7.7 Compreh ensive Internal Medicine Work Phone: Comment on above: [facility] [address] [place], [address] Basophils/100 WBC (Bld) 0.4 % Normal 0-1 [facility] Work Phone: Comment on above: [facility] [address] [place], [address] Eosinophils/100 WBC (Bld) 2.7 % Normal 0-5 [facility] Work Phone: Comment on above: [facility] [address] [place], [address] Erythrocyte distribution width Ratio (RBC) 14.3 % Normal 11.6-14.6 [facility] Work Phone: Comment on above: [facility] [address] [place], [place], [phone] Hematocrit Volume Fraction (Bld) 47.6 % Normal 40-54 [facility] Work Phone: Comment on above: [facility] [address] [place], [address] Hemoglobin mass conc (Bld) 16.1 g/dL Normal 13.0-16.5 [facility] Work Phone: Comment on above: [facility] [facility] [address] [place], [address] IM GRAN % 0.300 % Normal 0.0-0.9 [facility] Work Phone: Comment on above: IG% - Immature Granu locytes (promyelocytes, myelocytes andmetamyelocytes) > 1% indicates that a LEFT SHIFT is Present. [facility] [address] [place], [address] Lymphocytes #/vol (Bld) 3.07 {X10_3/ul} Normal 0.83-4.51 [facility] Work Phone: Comment on above: [facility] [address] [place], [address] Lymphocytes/100 WBC (Bld) 30.5 % Normal 19-41 [facility] Work Phone: Comment on above: [facility] [address] [place], [address] MCH Entitic mass (RBC) 28.3 pg Normal 27.0-32.0 [facility] Work Phone: Comment on above: [facility] [address] [place], [address] MCHC mass conc (RBC) 33.8 {g/gl} Normal 32-36 Com prehensive Internal Medicine Work Phone: Comment on above: [facility] [address] [place], [address] MCV Entitic volume (RBC) 83.7 fL Normal 80-94 [facility] Work Phone: Comment on above: [facility] [address] [place], [address] Monocytes/100 WBC (Bld) 7.8 % Normal 0-10 [facility] Work Phone: Comment on above: [facility] [address] [place], [address] Neutrophils/100 WBC (Bld) 58.3 % Normal 47-70 [facility] Work Phone: Comment on above: [facility] [address] [place], [address] Platelet mean volume Entitic volume (Bld) 9.7 fL Normal 6.2-12.0 Comprehensi Internal Medicine Work Phone: Comment on above: [facility] [address] [place], [address] Platelets #/vol (Bld) 154 10*3/uL Normal 150-450 [facility] Work Phone: Comment on above: [facility] [address] [place], [place], [phone] RBC #/vol (Bld) 5.69 {M/mm3} Normal 4.6-6.2 Compreh ensive Internal Medicine Work Phone: Comment on above: [facility] [address] [place], [address] RDW SD 43.6 fL Normal 35.1-43.9 [facility] Work Phone: Comment on above: [facility] [address] [place], [place], [address] WBC #/vol (Bld) 10.1 10*3/uL Normal 4.4-11.0 Compreh ensive Internal Medicine Work Phone: Comment on above: [facility] [address] [place], [place], [id number] Troponin-IOrdered By: Motorcycle Delivery Driver on 01-31-2018 Troponin I.cardiac mass conc ng/mL Normal [facility] Work Phone: Comment on above: TROPONIN-I EXPECTED VALUES <0.045 Negative 0.045 - 0.590 Consistent with Cardiac Damage > OR = 0.600 Critical Value Not every elevated troponin is indicative of UT. Thesevalues should be used with clinical judgement in examiningthe patient's clinical picture for diagnosis. To establisha diagnosis of UT versus myocardial injury, there must be ademonstrated rise and/or fall in the troponin values, inaddition to ischemic symptoms, EKG changes, new regionalwall motion abnormality, and/or angiographical evidence. PLEASE NOTE: REFERENCE RANGES EDITED 17 [facility] [address] [place], [place], [id number] Basic Metabolic Profile (BMP )Ordered By: Motorcycle Delivery Driver on 01-29-2018 Basic metabolic 2000 panel 9.1 mg/dL Normal 8.5-10.1 [facility] Work Phone: Comment on above: Comments: For heart cathComments: For [facility] [address] [place], [place], [id number] Basic metabolic 2000 panel 1.08 mg/dL Normal 0.70-1.30 [facility] Work Phone: Comment on above: The validity of the calculated GFR AND GFRAA in patients over70 years has not been determined. Clinical correlation isessential. Comments: For heart cathComments: For [facility] [address] [place], [place], [id number] Basic metabolic 2000 panel 79 mg/dL Normal 74-106 [facility] Work Phone: Comment on above: Please note revised GLUCOSE reference range ptorltxel91/02/2018. Comments: For heart cathComments: For [facility] [address] [place], [place], [address] Basic metabolic 2000 panel 10 1 Normal 5-15 [facility] Work Phone: Comment on above: Comments: For heart cathComments: For [facility] [address] [place], [place], [address] Basic metabolic 2000 panel 22.0 mmol/L Normal 21.0-32.0 [facility] Work Phone: Comment on above: Comments: For heart cathComments: For [facility] [address] [place], [place], [phone] Basic metabolic 2000 panel 74 mL/min Normal [facility] Work Phone: Comment on above: Non- GFR Calc Comments: For heart cathComments: For [facility] [address] [place], [place], [address] Basic metabolic 2000 panel 4.4 mmol/L Normal 3.5-5.1 [facility] Work Phone: Comment on above: Comments: For heart cathComments: For [facility] [address] [place], [place], [address] Basic metabolic 2000 panel 141 mmol/L Normal 136-145 [facility] Work Phone: Comment on above: Comments: For heart cathComments: For [facility] [address] [place], [place], [address] Basic metabolic 2000 panel 16.7 {RATIO} Normal 10-20 [facility] Work Phone: Comment on above: Comments: For heart cathComments: For [facility] [address] [place], [place], [address] Basic metabolic 2000 panel 90 mL/min Normal [facility] Work Phone: Comment on above: GFR Calc Comments: For heart cathComments: For [facility] [address] [place], [place], [address] Basic metabolic 2000 panel 18 mg/dL Normal 7-18 [facility] Work Phone: Comment on above: Comments: For heart cathComments: For [facility] [address] [place], [place], [id number] Basic metabolic 2000 panel 109 mmol/L Abnormal 98-107 [facility] Work Phone: Comment on above: Comments: For heart cathComments: For [facility] [address] [place], [place], [address] CBC-Complete Blood Cnt No Di ffOrdered By: Motorcycle Delivery Driver on 01-29-2018 Erythrocyte distribution width Ratio (RBC) 14.4 % Normal 11.6-14.6 [facility] Work Phone: Comment on above: [facility] [address] [place], [place], [address] Hematocrit Volume Fraction (Bld) 47.7 % Normal 40-54 [facility] Work Phone: Comment on above: [facility] [address] [place], [place], [address] Hemoglobin mass conc (Bld) 16.8 g/dL Abnormal 13.0-16.5 [facility] Work Phone: Comment on above: [facility] [address] [place], [address] MCH Entitic mass (RBC) 28.8 pg Normal 27.0-32.0 [facility] Work Phone: Comment on above: [facility] [address] [place], [address] MCHC mass conc (RBC) 35.2 {g/gl} Normal 32-36 Com prehensive Internal Medicine Work Phone: Comment on above: [facility] [address] [place], [place], [address] MCV Entitic volume (RBC) 81.7 fL Normal 80-94 [facility] Work Phone: Comment on above: [facility] [address] [place], [address] Platelet mean volume Entitic volume (Bld) 10.2 fL Normal 6.2-12.0 Comprehensi [facility] Medicine Work Phone: Comment on above: [facility] [address] [place], [address] Platelets #/vol (Bld) 177 10*3/uL Normal 150-450 Co [facility] Internal Medicine Work Phone: Comment on above: [facility] [address] [place], [address] RBC #/vol (Bld) 5.84 {M/mm3} Normal 4.6-6.2 Compreh ensive Internal Medicine Work Phone: Comment on above: [facility] [address] [place], [address] WBC #/vol (Bld) 9.6 10*3/uL Normal 4.4-11.0 Comprehe [facility] Internal Medicine Work Phone: Comment on above: [facility] [address] [place], [address] CBC-Complete Blood Cnt No Diff 42.5 fL Normal 35.1-43.9 [facility] Work Phone: Comment on above: [facility] [address] [place], [address] Partial Thromboplast TimeOrd ered By: Motorcycle Delivery Driver on 01-29-2018 aPTT Coag time (PPP) 29.6 s Normal 24.1-36.2 [facility] Internal Medicine Work Phone: Comment on above: Comments: For heart cathComments: For [facility] [address] [place], [address] Prothrombin Time w/INROrdere d By: Motorcycle Delivery Driver on 01-29-2018 INR Coag RelTime (PPP) 1.0 {INR} Normal Co [facility] Internal Medicine Work Phone: Comment on above: Comments: For heart cathComments: For [facility] [address] [place], [address] Prothrombin time (PT) Coag time (PPP) 13.5 s Normal 11.7-14.9 [facility] Work Phone: Comment on above: Comments: For heart cathComments: For [facility] [address] [place], [address] Lipid ProfileOrdered By: Shaunna tem [employer] Process Control Technician on 01-24-2018 Cholesterol in HDL mass conc 38 mg/dL Abnormal [facility] Work Phone: Comment on above: The drugs N-Acetylcy steine and Metamizole may falselydepress this assay. Reference Range HDL <40 mg/dL Low HDL Cholesterol HDL >or= 60 mg/dL High HDL Cholesterol [facility] [address] [place], [place], [address] Cholesterol in LDL mass conc 112 mg/dL Normal 0-130 [facility] Work Phone: Comment on above: [facility] [address] [place], [place], [address] Cholesterol in VLDL [Mass/Vol] 18 mg/dL Normal 5-40 [facility] Work Phone: Comment on above: [facility] [address] [place], [place], [address] Cholesterol mass conc 168 mg/dL Normal Com prehensive Internal Medicine Work Phone: Comment on above: <200 mg/dL Desirable 200-240 mg/dL Borderline >240 mg/dL High Risk [facility] [address] [place], [place], [address] Triglyceride mass conc 92 mg/dL Normal Co mprehensive [facility] Work Phone: Comment on above: The drugs N-Acetylcy steine and Metamizole may falselydepress this assay.Serum Triglycerides Reference Interval Normal <150 mg/dL Borderline high 150 - 199 mg/dL High 200 - 499 mg/dL Very High > or = 500 mg/dL [facility] [address] [place], [place], [address] Lipid Profile 18 mg/dL Normal 5-40 Comprehensi Internal Medicine Work Phone: Comment on above: [facility] [address] [place], [place], [address] Liver ProfileOrdered By: Shaunna tem [employer] Control Technician on 01-24-2018 Albumin mass conc 3.7 g/dL Normal 3.2-5.0 Compreh ensive Internal Medicine Work Phone: Comment on above: [facility] [address] [place], [place], [address] ALP enzyme act/vol 76 U/L Normal 45-117 Compre hensive Internal Medicine Work Phone: Comment on above: [facility] spital [address] [place], [place], [address] ALT enzyme act/vol 41 U/L Normal 16-61 [facility] Internal Medicine Work Phone: Comment on above: [facility] [address] [place], [place], [address] AST enzyme act/vol 31 U/L Normal 15-37 [facility] Internal Medicine Work Phone: Comment on above: [facility] [address] [place], [place], [address] Bilirubin mass conc 1.60 mg/dL Abnormal 0.20-1.00 [facility] Internal Medicine Work Phone: Comment on above: [facility] [address] [place], [place], [address] Bilirubin.direct mass conc 0.28 mg/dL Normal 0.00-0.30 [facility] Work Phone: Comment on above: [facility] [address] [place], [place], [address] Globulin mass conc (S) 3.5 g/dL Normal 2.2-4.2 [facility] Internal Medicine Work Phone: Comment on above: [facility] [address] [place], [place], [address] Hepatic function 2000 panel - Serum or Plasma 76 U/L Normal 45-117 [facility] Work Phone: Comment on above: [facility] [address] [place], [place], [address] Hepatic function 2000 panel - Serum or Plasma 7.2 g/dL Normal 6.4-8.2 [facility] Work Phone: Comment on above: [facility] [address] [place], [place], [address] Protein mass conc 7.2 g/dL Normal 6.4-8.2 Compreh ensive Internal Medicine Work Phone: Comment on above: [facility] [address] [place], [place], [address] T4 Total, ThyroxinOrdered By : Motorcycle Delivery Driver on 01-24-2018 T4 mass conc 8.7 ug/dL Normal 4.5-12.1 Comprehensiv e Internal Medicine Work Phone: Comment on above: [facility] [address] [place], [place], [address] Thyroid Stim Hormone (TSH)Or dered By: Motorcycle Delivery Driver on 01-24-2018 Thyrotropin Qn 7.24 {uIU/mL} Abnormal 0.358-3.74 Compreh ensive Internal Medicine Work Phone: Comment on above: [facility] [address] [place], [place], [address] Basic Metabolic Profile (BMP )Ordered By: Motorcycle Delivery Driver on 01-11-2018 Basic metabolic 2000 panel 4.2 mmol/L Normal 3.5-5.1 [facility] Work Phone: Comment on above: [facility] [address] [place], [place], [address] Basic metabolic 2000 panel 113 mmol/L Abnormal 98-107 [facility] Work Phone: Comment on above: [facility] [address] [place], [place], [address] Basic metabolic 2000 panel 8 1 Normal 5-15 [facility] Work Phone: Comment on above: [facility] [address] [place], [place], [address] Basic metabolic 2000 panel 142 mmol/L Normal 136-145 [facility] Work Phone: Comment on above: [facility] [address] [place], [place], [address] Basic metabolic 2000 panel 9.1 mg/dL Normal 8.5-10.1 [facility] Work Phone: Comment on above: [facility] [address] [place], [place], [address] Basic metabolic 2000 panel 17.3 {RATIO} Normal 10-20 [facility] Work Phone: Comment on above: [facility] [address] [place], [address] Basic metabolic 2000 panel 69.90 ml/min Normal [facility] Work Phone: Comment on above: [facility] [address] [place], [address] Basic metabolic 2000 panel 74 mL/min Normal [facility] Work Phone: Comment on above: GFR Calc [place] [address] [place], [address] Basic metabolic 2000 panel 61 mL/min Normal [facility] Work Phone: Comment on above: Non- GFR Calc [place] [address] [place], [place], [address] Basic metabolic 2000 panel 1.27 mg/dL Normal 0.70-1.30 [facility] Work Phone: Comment on above: The validity of the calculated GFR AND GFRAA in patients over70 years has not been determined. Clinical correlation isessential. [facility] [address] [place], [place], [address] Basic metabolic 2000 panel 22 mg/dL Abnormal 7-18 [facility] Work Phone: Comment on above: [facility] [address] [place], [place], [address] Basic metabolic 2000 panel 105 mg/dL Normal 74-106 [facility] Work Phone: Comment on above: Fasting Glucose resu lt from 100 to 125 mg/dLsuggests IMPAIRED HOMEOSTASIS per A.D.A. criteria.Please note revised GLUCOSE reference range zfultnetr54/02/2018. [facility] [address] [place], [place], [address] Basic metabolic 2000 panel 21.0 mmol/L Normal 21.0-32.0 [facility] Work Phone: Comment on above: [facility] [address] [place], [place], [address] CBC W/Diff, AutomatedOrdered By: Motorcycle Delivery Driver on 01-11-2018 Absolute Neut 7.4 {X10_3/uL} Normal 2.0-7.7 Compreh ensive Internal Medicine Work Phone: Comment on above: [facility] [address] [place], [place], [phone] Basophils/100 WBC (Bld) 0.2 % Normal 0-1 [facility] Work Phone: Comment on above: [facility] [address] [place], [place], [phone] Eosinophils/100 WBC (Bld) 1.8 % Normal 0-5 [facility] Work Phone: Comment on above: [facility] [address] [place], [place], [address] Erythrocyte distribution width Ratio (RBC) 13.9 % Normal 11.6-14.6 [facility] Work Phone: Comment on above: [facility] [address] [place], [place], [address] Hematocrit Volume Fraction (Bld) 48.8 % Normal 40-54 [facility] Work Phone: Comment on above: [facility] [address] [place], [place], [address] Hemoglobin mass conc (Bld) 16.9 g/dL Abnormal 13.0-16.5 [facility] Work Phone: Comment on above: [facility] [address] [place], [address] IM GRAN % 0.300 % Normal 0.0-0.9 [facility] Work Phone: Comment on above: IG% - Immature Granu locytes (promyelocytes, myelocytes andmetamyelocytes) > 1% indicates that a LEFT SHIFT is Present. [facility] [address] [place], [address] Lymphocytes #/vol (Bld) 2.30 {X10_3/ul} Normal 0.83-4.51 [facility] Work Phone: Comment on above: [facility] [address] [place], [address] Lymphocytes/100 WBC (Bld) 21.6 % Normal 19-41 [facility] Work Phone: Comment on above: [facility] [address] [place], [address] MCH Entitic mass (RBC) 28.6 pg Normal 27.0-32.0 [facility] Work Phone: Comment on above: [facility] [address] [place], [address] MCHC mass conc (RBC) 34.6 {g/gl} Normal 32-36 [facility] prehensive Internal Medicine Work Phone: Comment on above: [facility] [address] [place], [address] MCV Entitic volume (RBC) 82.7 fL Normal 80-94 [facility] Work Phone: Comment on above: [facility] [address] [place], [address] Monocytes/100 WBC (Bld) 7.0 % Normal 0-10 [facility] Work Phone: Comment on above: [facility] [address] [place], [place], [address] Neutrophils/100 WBC (Bld) 69.1 % Normal 47-70 [facility] Work Phone: Comment on above: [facility] [address] [place], [place], [address] Platelet mean volume Entitic volume (Bld) 9.3 fL Normal 6.2-12.0 Comprehensi ve Internal Medicine Work Phone: Comment on above: [facility] [address] [place], [place], [address] Platelets #/vol (Bld) 187 10*3/uL Normal 150-450 Co [facility]prehensive [facility] Work Phone: Comment on above: [facility] [address] [place], [address] RBC #/vol (Bld) 5.90 {M/mm3} Normal 4.6-6.2 Compreh ensive Internal Medicine Work Phone: Comment on above: [facility] [address] [place], [address] RDW SD 42.1 fL Normal 35.1-43.9 [facility] Work Phone: Comment on above: [facility] [address] [place], [address] WBC #/vol (Bld) 10.6 10*3/uL Normal 4.4-11.0 Compreh ensive Internal Medicine Work Phone: Comment on above: [facility] [address] [place], [address] Prothrombin Time w/INROrdere d By: Motorcycle Delivery Driver on 01-11-2018 INR Coag RelTime (PPP) 1.0 {INR} Normal Co [facility] Work Phone: Comment on above: [facility] [address] [place], [place], [address] Prothrombin time (PT) Coag time (PPP) 13.5 s Normal 11.7-14.9 [facility] Work Phone: Comment on above: [facility] [address] [place], [place], [address] Troponin-IOrdered By: Motorcycle Delivery Driver on 01-11-2018 Troponin I.cardiac mass conc ng/mL Normal [facility] Work Phone: Comment on above: TROPONIN-I EXPECTED VALUES <0.045 Negative 0.045 - 0.590 Consistent with Cardiac Damage > OR = 0.600 Critical Value Not every elevated troponin is indicative of UT. Thesevalues should be used with clinical judgement in examiningthe patient's clinical picture for diagnosis. To establisha diagnosis of UT versus myocardial injury, there must be ademonstrated rise and/or fall in the troponin values, inaddition to ischemic symptoms, EKG changes, new regionalwall motion abnormality, and/or angiographical evidence. PLEASE NOTE: REFERENCE RANGES EDITED 17 [facility] [address] [place], [place], [address] CNOVon 08-06-2017 CNOV Office Visit ([facility]WSTR) FRANKOANGELICA MASTERS WILI ([id number]) 1955 MDate Time Provider Department08/06/17 11:15 AM JAKI TROY (ELIU) [facility] During your visit today, we recorded the following information about you: Temperature Pulse Respiration Blood pressure 99.3 degrees 86/minute 28/minute 98/78 Weight 115.7 kgJaki Troy CNP 08/06/2017 11:57 AM SignedHPI Pieter Mckeon is a 62 year old male who presents with cough and congestion.He had a fever and bad cough the last few days. Cough is improved but he feelsshort of breath, especially with activity. He has taken tylenol when he had afever.Review of SystemsConstitutional: Negative. Negative for fever.HENT: Negative for ear pain and sore throat.Respiratory: Positive for cough, sputum production and shortness of breath.Cardiovascular: Negative. Negative for chest pain.Neurological: Negative for headaches.BP 98/78 Pulse 86 Temp 37.4 ?C (99.3 ?F) (Tympanic) Resp 28 Wt 115.7 kg(255 lb) SpO2 95%No past medical history on file.No past surgical history on file.ALLERGIES Review of patient's allergies indicates no known allergies.MEDICATIONS No prescriptions on file.No family history on file.Social HistorySubstance Use Topics- Smoking status: Never Smoker- Smokeless tobacco: Never Used- Alcohol use Not on filePhysical ExamConstitutional: He is well-developed, well-nourished, and in no distress.HENT:Head: Normocephalic.Right Ear: Tympanic membrane, external ear and ear canal normal.Left Ear: Tympanic membrane, external ear and ear canal normal.Nose: Nose normal. No rhinorrhea.Mouth/Throat: Uvula is midline, oropharynx is clear and moist and mucousmembranes are normal. Mucous membranes are not pale and not dry. No posteriororopharyngeal edema or posterior oropharyngeal erythema.Eyes: Conjunctivae are normal. Right eye exhibits no discharge. Left eyeexhibits no discharge.Neck: Neck supple.Cardiovascular: Normal rate, regular rhythm and normal heart sounds.No murmur heard.Pulmonary/Chest: Effort normal. No tachypnea. No respiratory distress. He hasno decreased breath sounds. He has wheezes (faint). He has no rales.Frequent harsh coughLymphadenopathy: He has no cervical adenopathy.Neurological: He is alert.Skin: Skin is warm and dry.Nursing note and vitals reviewed.ASSESSMENT/PLAN :1. Acute bronchitis, unspecified organism - ICD9: 466.0, ICD10: J20.9- AZITHROMYCIN 250 MG TABLET- PREDNISONE 20 MG TABLET- ALBUTEROL SULFATE HFA 90 MCG/ACTUATION AEROSOL INHALER- INHALATIONAL SPACING DEVICE- Follow-up with your PCP in 3-5 days if symptoms have not improved or soonerif symptoms worsen- Discussed red flags and need for immediate medical evaluation if any occur.- Discussed supportive care treatment with fluids, rest and analgesia.- Discussed expected course of illnessRyder Joel CNP 08/06/2017 11:52 AM SignedTake medications as prescribed. If not improving in 3-5 days, or you haveworsening symptoms, see your primary care provider for recheck.ACUTE BRONCHITIS:You have acute bronchitis. This means the airway passages in your lungs areinflamed. Bronchitis may be caused by viruses or bacteria. Inhaling cigarettesmoke will always make it worse. Exposure to irritating chemicals or secondhand smoke as well as allergies can contribute to bronchitis. Repeat episodesof bronchitis may cause lifelong lung problems.Acute bronchitis is usually treated with rest, fluids, cough medicine, andpossibly antibiotics or inhaled medicine to open up the small airways. It isvery important that you avoid smoke and drink increased amounts of fluids. Acool air vaporizer can help thin bronchial secretions. This makes it easier tocough and clear your chest. If you are a cigarette smoker, consider usingnicotine gum or skin patches to help you withdraw.Recovery from bronchitis is often slow, but you should start feeling betterafter 2-3 days of treatment. Please call your doctor or return here if youhave any of the following symptoms: - Increased fever, chills, or chest pain. - Severe shortness of breath or bloody sputum. - Do not improve after 3 days of proper treatment.Referring Provider: SELF [[id number]]Allergies As of Date: 08/06/2017(No Known Allergies)Date Reviewed: 08/06/2017Reviewed by: Jaki Troy - Fully AssessedReason for Visit: Cough [28] Cmt: with congestion x 4 dayPrimary Visit Diagnosis:Acute bronchitis, unspecified organism [J20.9]Order(s):azithrom ycin (ZITHROMAX Z-LILLI) 250 mg tabletTake 2 tablets [...] time only for 1 dose.Disp: 1 EachRfl: 0Prescriptions as of 08/06/2017 Sig: AZITHROMYCIN 250 MG TABLET Take 2 tablets today then one* PREDNISONE 20 MG TABLET Take 1 tablet by mouth once d* ALBUTEROL SULFATE HFA 90 MCG/* Inhale 2 Puffs as instructed * INHALATIONAL SPACING DEVICE 1 Device one time only for 1 *Problem List As Of Date: 08/06/2017(None) Other instructions from your clinician: Take medications [...] not improve after 3 days of proper treatment.Prescriptions ordered this encounter Disp Refills Start End [...] Device one time only for 1 dose. Status:Closed by JAKI TROY on 08/06/17 Normal [facility] PROGRESSon 08-06-2017 PROGRESS HNO ID: [id number]: Jaki ([facility]) Vivi: (none)Author Type: Nurse PractitionerType: Progress NotesFiled: 08/06/2017 11:57 AMNote Text:HPI Pieter Mckeon is a 62 year old male who presents with cough andcongestion. He had a fever and bad cough the last few days. Cough isimproved but he feels short of breath, especially with activity. He hastaken tylenol when he had a fever.Review of SystemsConstitutional: Negative. Negative for fever.HENT: Negative for ear pain and sore throat.Respiratory: Positive for cough, sputum production and shortness ofbreath.Cardiovascular: Negative. Negative for chest pain.Neurological: Negative for headaches.BP 98/78 Pulse 86 Temp 37.4 ?C (99.3 ?F) (Tympanic) Resp 28 Wt115.7 kg (255 lb) SpO2 95%No past medical history on file.No past surgical history on file.ALLERGIES Review of patient's allergies indicates no known allergies.MEDICATIONS No prescriptions on file.No family history on file.Social HistorySubstance Use Topics- Smoking status: Never Smoker- Smokeless tobacco: Never Used- Alcohol use Not on filePhysical ExamConstitutional: He is well-developed, well-nourished, and in no distress.HENT:Head: Normocephalic.Right Ear: Tympanic membrane, external ear and ear canal normal.Left Ear: Tympanic membrane, external ear and ear canal normal.Nose: Nose normal. No rhinorrhea.Mouth/Throat: Uvula is midline, oropharynx is clear and moist and mucousmembranes are normal. Mucous membranes are not pale and not dry. Noposterior oropharyngeal edema or posterior oropharyngeal erythema.Eyes: Conjunctivae are normal. Right eye exhibits no discharge. Left eyeexhibits no discharge.Neck: Neck supple.Cardiovascular: Normal rate, regular rhythm and normal heart sounds.No murmur heard.Pulmonary/Chest: Effort normal. No tachypnea. No respiratory distress. Hehas no decreased breath sounds. He has wheezes (faint). He has no rales.Frequent harsh coughLymphadenopathy: He has no cervical adenopathy.Neurological: He is alert.Skin: Skin is warm and dry.Nursing note and vitals reviewed.ASSESSMENT/PLAN :1. Acute bronchitis, unspecified organism - ICD9: 466.0, ICD10: J20.9- AZITHROMYCIN 250 MG TABLET- PREDNISONE 20 MG TABLET- ALBUTEROL SULFATE HFA 90 MCG/ACTUATION AEROSOL INHALER- INHALATIONAL SPACING DEVICE- Follow-up with your PCP in 3-5 days if symptoms have not improved orsooner if symptoms worsen- Discussed red flags and need for immediate medical evaluation if anyoccur.- Discussed supportive care treatment with fluids, rest and analgesia.- Discussed expected course of illnessJaki Troy CNP Normal [facility] CBC-Complete Blood Cnt No Di ffOrdered By: Motorcycle Delivery Driver on 11-07-2015 Erythrocyte distribution width Ratio (RBC) 14.1 % Normal 11.6-14.6 [facility] Work Phone: Comment on above: [facility] [address] [place], [place], [id number] Hematocrit Volume Fraction (Bld) 47.2 % Normal 40-54 [facility] Work Phone: Comment on above: [facility] [address] [place], [place], [id number] Hemoglobin mass conc (Bld) 16.1 g/dL Normal 13.0-16.5 [facility] Work Phone: Comment on above: [facility] [address] [place], [place], [id number] MCH Entitic mass (RBC) 28.0 pg Normal 27.0-32.0 [facility] Internal Medicine Work Phone: Comment on above: [facility] [address] [place], [place], [phone] MCHC mass conc (RBC) 34.1 {g/gl} Normal 32-36 Com prehensive Internal Medicine Work Phone: Comment on above: [facility] [address] [place], [place], [phone] MCV Entitic volume (RBC) 82.1 fL Normal 80-94 [facility] Work Phone: Comment on above: [facility] [address] [place], [address] Platelet mean volume Entitic volume (Bld) 9.8 fL Normal 6.2-12.0 Comprehensi ve Internal Medicine Work Phone: Comment on above: [facility] [address] [place], [address] Platelets #/vol (Bld) 194 10*3/uL Normal 150-450 Co mprehensive Internal Medicine Work Phone: Comment on above: [facility] [address] [place], [address] RBC #/vol (Bld) 5.75 {M/mm3} Normal 4.6-6.2 Compreh ensive Internal Medicine Work Phone: Comment on above: [facility] [address] [place], [address] WBC #/vol (Bld) 7.0 10*3/uL Normal 4.4-11.0 Comprehe nsive Internal Medicine Work Phone: Comment on above: [facility] [address] [place], [address] CBC-Complete Blood Cnt No Diff 42.1 fL Normal 35.1-43.9 [facility] Work Phone: Comment on above: [facility] [address] [place], [place], [id number] Comprehensive Metabolic Prof ilOrdered By: Motorcycle Delivery Driver on 11-07-2015 Comprehensive metabolic 2000 panel 35 U/L Normal 15-37 Comprehensi ve Internal Medicine Work Phone: Comment on above: [facility] [address] [place], [address] Comprehensive metabolic 2000 panel 82 U/L Normal 50-136 Comprehensi ve Internal Medicine Work Phone: Comment on above: [facility] [address] [place], [place], [address] Comprehensive metabolic 2000 panel 53 U/L Normal 12-78 Comprehensi ve Internal Medicine Work Phone: Comment on above: [facility] [address] [place], [place], [address] Comprehensive metabolic 2000 panel 1.00 mg/dL Normal 0.20-1.00 Comprehensi ve Internal Medicine Work Phone: Comment on above: [facility] [address] [place], [place], [address] Comprehensive metabolic 2000 panel 143 mmol/L Normal 136-145 Comprehensi ve Internal Medicine Work Phone: Comment on above: [facility] [address] [place], [place], [address] Comprehensive metabolic 2000 panel 4.2 mmol/L Normal 3.5-5.1 Comprehensi ve Internal Medicine Work Phone: Comment on above: [facility] [address] [place], [address] Comprehensive metabolic 2000 panel 110 mmol/L Abnormal 98-107 Comprehensi ve Internal Medicine Work Phone: Comment on above: [facility] [address] [place], [place], [address] Comprehensive metabolic 2000 panel 23.0 mmol/L Normal 21.0-32.0 Comprehensi ve Internal Medicine Work Phone: Comment on above: [facility] [address] [place], [address] Comprehensive metabolic 2000 panel 10 1 Normal 5-15 Comprehensi ve Internal Medicine Work Phone: Comment on above: [facility] sp[facility] [address] [place], [address] Comprehensive metabolic 2000 panel 83 mg/dL Normal 70-110 Comprehensi ve Internal Medicine Work Phone: Comment on above: [facility] [address] [place], [address] Comprehensive metabolic 2000 panel 3.7 g/dL Normal 3.4-5.0 Comprehensi ve Internal Medicine Work Phone: Comment on above: [facility] [address] [place], [address] Comprehensive metabolic 2000 panel 19 mg/dL Abnormal 7-18 Comprehensi ve Internal Medicine Work Phone: Comment on above: [facility] [address] [place], [place], [address] Comprehensive metabolic 2000 panel 7.3 g/dL Normal 6.4-8.2 Comprehensi ve Internal Medicine Work Phone: Comment on above: [facility] [address] [place], [address] Comprehensive metabolic 2000 panel 16.1 {RATIO} Normal 10-20 Comprehensi ve Internal Medicine Work Phone: Comment on above: [facility] [address] [place], [address] Comprehensive metabolic 2000 panel 1.0 {RATIO} Normal 0.9-2.4 Comprehensi ve Internal Medicine Work Phone: Comment on above: [facility] [address] [place], [address] Comprehensive metabolic 2000 panel 81 mL/min Normal Comprehensi ve Internal Medicine Work Phone: Comment on above: GFR Calc [facility] [address] [place], [place], [id number] Comprehensive metabolic 2000 panel 67 mL/min Normal Comprehensi ve Internal Medicine Work Phone: Comment on above: Non- GFR Calc [facility] [address] [place], [place], [phone] Comprehensive metabolic 2000 panel 8.7 mg/dL Normal 8.5-10.1 Comprehensi ve Internal Medicine Work Phone: Comment on above: [facility] [address] [place], [place], [phone] Comprehensive metabolic 2000 panel 1.18 mg/dL Normal 0.70-1.30 Comprehensi ve Internal Medicine Work Phone: Comment on above: The validity of the calculated GFR AND GFRAA in patients over70 years has not been determined. Clinical correlation isessential. [facility] [address] [place], [place], [phone] Comprehensive metabolic 2000 panel 3.6 g/dL Abnormal 2.3-3.5 Comprehensi ve Internal Medicine Work Phone: Comment on above: [facility] [address] [place], [place], [address] Lipid ProfileOrdered By: Shaunna tem [employer] Control Technician on 11-07-2015 Cholesterol in HDL mass conc 41 mg/dL Normal [facility] Work Phone: Comment on above: Reference Range HDL <40 mg/dL Low HDL Cholesterol HDL >or= 60 mg/dL High HDL Cholesterol [facility] [address] [place], [address] Cholesterol in LDL mass conc 96 mg/dL Normal 0-130 [facility] Work Phone: Comment on above: [facility] [address] [place], [address] Cholesterol in VLDL [Mass/Vol] 10 mg/dL Normal 5-40 [facility] Work Phone: Comment on above: [facility] [address] [place], [place], [address] Cholesterol mass conc 147 mg/dL Normal Com prehensive Internal Medicine Work Phone: Comment on above: <200 mg/dL Desirable 200-240 mg/dL Borderline >240 mg/dL High Risk [facility] [address] [place], [place], [address] Triglyceride mass conc 50 mg/dL Normal Co mprehensive Internal Medicine Work Phone: Comment on above: Serum Triglycerides Reference Interval Normal <150 mg/dL Borderline high 150 - 199 mg/dL High 200 - 499 mg/dL Very High > or = 500 mg/dL [facility] [address] [place], [place], [id number] Lipid Profile 10 mg/dL Normal 5-40 Comprehensi Internal Medicine Work Phone: Comment on above: [facility] [address] [place], [place], [address] PSA,Total - Annual ScreenOrd ered By: Motorcycle Delivery Driver on 11-07-2015 Prostate specific Ag mass conc 1.45 ng/mL Normal 0.00-4.00 [facility] Work Phone: Comment on above: This test was perfor med using the TPSA assay method for the[facility] chemistry system. Values obtained with differentassay methods cannot be used interchangably.When changing PSA assays in the course of monitoring apatient, additional sequential testing should be carriedout to confirm baseline values. [facility] [address] [place], [place], [address] Anaerobic and Aerobic Cultur eOrdered By: Motorcycle Delivery Driver on 04-15-2009 Bacteria identified Aer cx Nom (Unsp spec) Final report Normal Comprehen [facility] Internal Medicine Work Phone: Comment on above: Clinical Information : SRC:AM RT UPPER LAT. PERFORMED BY: BEREKET [facility] Hsrzwt5069 [facility] [id number] Bacteria identified Anaer cx Nom (Unsp spec) Final report Normal [facility] Work Phone: Comment on above: Clinical Information : SRC:AM RT UPPER LAT. PERFORMED BY: BEREKET [facility] Fnsiow2131 [facility] [id number] Bacteria identified Cx Nom (Unsp spec) [id number] Normal [facility] Work Phone: Comment on above: No anaerobic growth in 72 hours. Clinical Information : SRC:AM RT UPPER LAT. PERFORMED BY: BEREKET [facility] Zielnw4243 [facility] [id number] Bacteria identified Cx Nom (Unsp spec) BACNBA Normal [facility] Work Phone: Comment on above: Bacillus species, no t Bacillus anthracisModerate growthSusceptibility not normally performed on this organism. Clinical Information : SRC:AM RT UPPER LAT. PERFORMED BY: BEREKET [facility] Zfhtwo1534 [facility] [id number] Anti-TPO Antibody ([id number])Ord ered By: Florence Carranza on 11-04-2008 Thyroperoxidase Ab Qn [IU]/mL Normal 0-34 [facility] prehensive Internal Medicine Work Phone: Comment on above: PATIENT NOT FASTINGP ERFORMED BY: BEREKET [facility] Ajtmkb1471 [facility] [id number] TPO Ab Qn [IU]/mL Normal 0-34 [facility]; [facility] Work Phone: Comment on above: PATIENT NOT FASTINGP ERFORMED BY: BEREKET [facility] Tczhij4432 [facility] [id number] T3, FREE (TRIDOTHYRONINE) (9 2875)Ordered By: Florence Carranza on 11-04-2008 T3 free mass conc 3.1 pg/mL Normal 2.3-4.2 Compreh ensive Internal Medicine Work Phone: Comment on above: PATIENT NOT FASTINGP ERFORMED BY: [facility] Hbrgfd7900 [facility] [id number] T4, FREE (THYROXINE) ([id number]) Ordered By: Florence Carranza on 11-04-2008 T4 free mass conc 1.00 ng/dL Normal 0.61-1.76 Compreh ensive Internal Medicine Work Phone: Comment on above: PATIENT NOT FASTINGP ERFORMED BY: BEREKET [facility]6370 [facility] [id number] TSH ([id number])Ordered By: Florence Carranza on 11-04-2008 Thyrotropin Qn 3.691 {uIU/mL} Normal 0.450-4.50 0 [facility] Work Phone: Comment on above: PATIENT NOT FASTINGC linical Information: ADD DRAW FEE [id number] ADD J [id number] PERFORMED BY: BEREKET [facility]6370 [facility] [id number] CBC WITH MANUAL DIFF ([id number]) Ordered By: Florence Carranza on 08-13-2008 Basophils #/vol (Bld) 0.1 {x10E3/uL} Normal 0.0-0.2 [facility] Work Phone: Comment on above: PATIENT WAS FASTINGC linical Information: ADD DRAW FEE [id number] ADD J [id number] PERFORMED BY: BEREKET [facility]6370 [facility] [id number] Basophils (Bld) [#/Vol] 0.1 10*3/uL Normal 0.0-0.2 [facility]; [facility] Work Phone: Comment on above: PATIENT WAS FASTINGC linical Information: ADD DRAW FEE [id number] ADD J 88612 PERFORMED BY: [facility]6370 [facility] [id number] Basophils/100 WBC (Bld) 1 % Normal 0-3 [facility] Work Phone: Comment on above: PATIENT WAS FASTINGC linical Information: ADD DRAW FEE [id number] ADD J 95801 PERFORMED BY: [facility]6370 [facility] [id number] Eosinophils #/vol (Bld) 0.3 {x10E3/uL} Normal 0.0-0.4 [facility] Work Phone: Comment on above: PATIENT WAS FASTINGC linical Information: ADD DRAW FEE [id number] ADD J PERFORMED BY: BEREKET [facility] Pxtosl1609 [facility] [id number] Eosinophils (Bld) [#/Vol] 0.3 10*3/uL Normal 0.0-0.4 [facility]; [facility] Work Phone: Comment on above: PATIENT WAS FASTINGC linical Information: ADD DRAW FEE [id number] ADD J PERFORMED BY: BEREKET [address] [id number] Eosinophils/100 WBC (Bld) 4 % Normal 0-7 [facility] Work Phone: Comment on above: PATIENT WAS FASTINGC linical Information: ADD DRAW FEE ADD J PERFORMED BY: BEREKET [facility] O[address]rv[address] [id number] Erythrocyte distribution width Ratio (RBC) 15.0 % Normal 11.7-15.0 [facility] Work Phone: Comment on above: PATIENT WAS FASTINGC linical Information: ADD DRAW FEE [id number] ADD J PERFORMED BY: BEREKET [address] [id number] Hematocrit Volume Fraction (Bld) 43.8 % Normal 36.0-50.0 [facility] Work Phone: Comment on above: PATIENT WAS FASTINGC linical Information: ADD DRAW FEE [id number] ADD J 15694 PERFORMED BY: Paz[address] [id number] Hemoglobin mass conc (Bld) 15.0 g/dL Normal 12.5-17.0 [facility] Work Phone: Comment on above: PATIENT WAS FASTINGC linical Information: ADD DRAW FEE [id number] ADD J 27730 PERFORMED BY: [address] [id number] Lymphocytes #/vol (Bld) 1.7 {x10E3/uL} Normal 0.7-4.5 [facility] Work Phone: Comment on above: PATIENT WAS FASTINGC linical Information: ADD DRAW FEE [id number] ADD J PERFORMED BY: BEREKET [address] [id number] Lymphocytes (Bld) [#/Vol] 1.7 10*3/uL Normal 0.7-4.5 [facility]; [facility] Internal Medicine Work Phone: Comment on above: PATIENT WAS FASTINGC linical Information: ADD DRAW FEE [id number] ADD J PERFORMED BY: [address] [id number] Lymphocytes/100 WBC (Bld) 26 % Normal 14-46 [facility] Internal Medicine Work Phone: Comment on above: PATIENT WAS FASTINGC linical Information: ADD DRAW FEE [id number] ADD J PERFORMED BY: BEREKET [address] [id number] MCH Entitic mass (RBC) 27.7 pg Normal 27.0-34.0 [facility] Internal Medicine Work Phone: Comment on above: PATIENT WAS FASTINGC linical Information: ADD DRAW FEE [id number] ADD J PERFORMED BY: BEREKET [facility] [place] [address] [id number] MCHC mass conc (RBC) 34.2 g/dL Normal 32.0-36.0 [facility] Internal Medicine Work Phone: Comment on above: PATIENT WAS FASTINGC linical Information: ADD DRAW FEE [id number] ADD J 06127 PERFORMED BY: [facility]6370 [facility] [id number] MCV Entitic volume (RBC) 81 fL Normal 80-98 [facility] Internal Medicine Work Phone: Comment on above: PATIENT WAS FASTINGC linical Information: ADD DRAW FEE [id number] ADD J 23341 PERFORMED BY: [address] [id number] Monocytes #/vol (Bld) 0.5 {x10E3/uL} Normal 0.1-1.0 [facility] Work Phone: Comment on above: PATIENT WAS FASTINGC linical Information: ADD DRAW FEE [id number] ADD J PERFORMED BY: BEREKET Oropeza6370 [facility] [id number] Monocytes (Bld) [#/Vol] 0.5 10*3/uL Normal 0.1-1.0 [facility]; [facility] Work Phone: Comment on above: PATIENT WAS FASTINGC linical Information: ADD DRAW FEE [id number] ADD J PERFORMED BY: BEREKET [facility] Pqxbqc4459 [facility] [id number] Monocytes/100 WBC (Bld) 8 % Normal 4-13 [facility] Work Phone: Comment on above: PATIENT WAS FASTINGC linical Information: ADD DRAW FEE [id number] ADD J PERFORMED BY: BEREKET Haddad Pfgxxc4953 [facility] [id number] Neutrophils #/vol (Bld) 4.0 {x10E3/uL} Normal 1.8-7.8 [facility] Work Phone: Comment on above: PATIENT WAS FASTINGC linical Information: ADD DRAW FEE [id number] ADD J PERFORMED BY: BEREKET [facility] Llnkne5661 [facility] [id number] Neutrophils (Bld) [#/Vol] 4.0 10*3/uL Normal 1.8-7.8 [facility]; [facility] Work Phone: Comment on above: PATIENT WAS FASTINGC linical Information: ADD DRAW FEE [id number] ADD J 91991 PERFORMED BY: LabElizabeth [place] [id number] [facility] [id number] Neutrophils/100 WBC (Bld) 61 % Normal 40-74 [facility] Work Phone: Comment on above: PATIENT WAS FASTINGC linical Information: ADD DRAW FEE [id number] ADD J PERFORMED BY: BEREKET [facility] Geatdh4936 [facility] [id number] Platelets #/vol (Bld) 188 {x10E3/uL} Normal 140-415 [facility] Work Phone: Comment on above: PATIENT WAS FASTINGC linical Information: ADD DRAW FEE [id number] ADD J 04080 PERFORMED BY: BEREKET [facility]6370 [facility] [id number] Platelets (Bld) [#/Vol] 188 10*3/uL Normal 140-415 [facility]; [facility] Internal Medicine Work Phone: Comment on above: PATIENT WAS FASTINGC linical Information: ADD DRAW FEE [id number] ADD J 39417 PERFORMED BY: BEREKET [address] [id number] RBC #/vol (Bld) 5.40 {x10E6/uL} Normal 4.10-5.60 Comp [facility] Internal Medicine Work Phone: Comment on above: PATIENT WAS FASTINGC linical Information: ADD DRAW FEE [id number] ADD J 62624 PERFORMED BY: BEREKET [address] [id number] RBC (Bld) [#/Vol] 5.40 10*6/uL Normal 4.10-5.60 Compr ensive Internal Medicine; [facility] Work Phone: Comment on above: PATIENT WAS FASTINGC linical Information: ADD DRAW FEE 201314 ADD J 68664 PERFORMED BY: [place] [id number] [facility] [id number] WBC #/vol (Bld) 6.6 {x10E3/uL} Normal 4.0-10.5 [facility] Internal Medicine Work Phone: Comment on above: PATIENT WAS FASTINGC linical Information: ADD DRAW FEE [id number] ADD J 98545 PERFORMED BY: [place] [id number] [facility] [id number] WBC (Bld) [#/Vol] 6.6 10*3/uL Normal 4.0-10.5 [facility]; [facility] Work Phone: Comment on above: PATIENT WAS FASTINGC linical Information: ADD DRAW FEE [id number] ADD J [id number] PERFORMED BY: BEREKET [facility] Bfaurq4366 [facility] [id number] Lipid Panel ([id number])Ordered B y: Florence Carranza on 08-13-2008 Cholesterol in HDL mass conc 53 mg/dL Normal [facility] Work Phone: Comment on above: According to ATP-III Guidelines, HDL-C >59 mg/dL is considered anegative risk factor for CHD. PATIENT WAS FASTINGP ERFORMED BY: BEREKET [facility] Hhnufm8616 [facility] [id number] Cholesterol in LDL mass conc 115 mg/dL Abnormal 0-99 [facility] Work Phone: Comment on above: PATIENT WAS FASTINGP ERFORMED BY: BEREKET [facility] [id number] [facility] [id number] Cholesterol in LDL/Cholesterol in HDL mass ratio SPRCS Normal [facility] Work Phone: Comment on above: If initial LDL-lanette sterol result is >100 mg/dL, assess forrisk factors. PATIENT WAS FASTINGP ERFORMED BY: BEREKET [facility] [id number] [facility] [id number] Cholesterol in LDL/Cholesterol in HDL mass ratio 2.2 {ratio_units} Normal 0.0-3.6 [facility] Work Phone: Comment on above: PATIENT WAS FASTINGP ERFORMED BY: BEREKET [facility] [id number] [facility] [id number] Cholesterol in VLDL mass conc 14 mg/dL Normal 5-40 [facility] Work Phone: Comment on above: PATIENT WAS FASTINGP ERFORMED BY: BEREKET [facility] Loyjuk8899 [facility] [place] [id number] Cholesterol mass conc 182 mg/dL Normal 100-199 [facility] prehensive Internal Medicine Work Phone: Comment on above: PATIENT WAS FASTINGP ERFORMED BY: BEREKET [facility] [id number] [facility] [place] [id number] Triglyceride mass conc 71 mg/dL Normal 0-149 [facility] Work Phone: Comment on above: PATIENT WAS FASTINGP ERFORMED BY: CB [facility] [id number] R[address] RoadDublin [place] [id number] METABOLIC PANEL, COMPREHENSI VE ([id number])Ordered By: Florence Carranza on 08-13-2008 Albumin mass conc 4.2 g/dL Normal 3.5-5.5 Compreh ensive [facility] Medicine Work Phone: Comment on above: PATIENT WAS FASTINGP ERFORMED BY: CB [facility] [id number] Rm RoadDublin [place] [id number] Albumin/Globulin mass ratio 1.5 {ratio} Normal 1.1-2.5 [facility] Work Phone: Comment on above: PATIENT WAS FASTINGP ERFORMED BY: CB [facility] [id number] Rm RoadDublin [place] [id number] ALP [Catalytic activity/Vol] 80 U/L Normal 25-150 [facility]; [facility] Work Phone: Comment on above: PATIENT WAS FASTINGP ERFORMED BY: CB [facility] [id number] Rm RoadDublin [place] [id number] ALP enzyme act/vol 80 [iU]/L Normal 25-150 [facility] Work Phone: Comment on above: PATIENT WAS FASTINGP ERFORMED BY: CB [facility] [id number] R[address] RoadDublin [place] [id number] ALT [Catalytic activity/Vol] 30 U/L Normal 0-55 [facility]; [facility] Internal Medicine Work Phone: Comment on above: PATIENT WAS FASTINGP ERFORMED BY: CB [facility] Lzoqka1894 [address] RoadDublin [place] [id number] ALT enzyme act/vol 30 [iU]/L Normal 0-55 [facility] Work Phone: Comment on above: PATIENT WAS FASTINGP ERFORMED BY: CB [facility] [id number] R[address] RoadDublin [place] [id number] AST [Catalytic activity/Vol] 29 U/L Normal 0-40 [facility]; [facility] Work Phone: Comment on above: PATIENT WAS FASTINGP ERFORMED BY: BEREKET [facility] [id number] [facility] [id number] AST enzyme act/vol 29 [iU]/L Normal 0-40 Compre [facility] Internal Medicine Work Phone: Comment on above: PATIENT WAS FASTINGP ERFORMED BY: BEREKET [facility] [id number] [facility] [id number] Bilirubin mass conc 1.0 mg/dL Normal 0.1-1.2 Compr ensive [facility] Work Phone: Comment on above: PATIENT WAS FASTINGP ERFORMED BY: BEREKET [facility] [id number] R[facility] [id number] Calcium mass conc 9.5 mg/dL Normal 8.5-10.6 Compreh [facility] Work Phone: Comment on above: PATIENT WAS FASTINGP ERFORMED BY: BEREKET [facility] Ciqmfz1286 [facility] [id number] Chloride molar conc 107 mmol/L Normal 97-108 Compr [facility] Internal Medicine Work Phone: Comment on above: PATIENT WAS FASTINGP ERFORMED BY: BEREKET [facility] [id number] [facility] [id number] CO2 molar conc 23 mmol/L Normal 20-32 Comprehens [facility] Internal Medicine Work Phone: Comment on above: PATIENT WAS FASTINGP ERFORMED BY: BEREKET [facility] [id number] [facility] [id number] Creatinine mass conc 1.10 mg/dL Normal 0.76-1.27 Comp [facility] Internal Medicine Work Phone: Comment on above: PATIENT WAS FASTINGP ERFORMED BY: BEREKET [facility] [id number] [facility] [id number] GFR/1.73 sq M predicted among blacks MDRD vol rate/area (S/P/Bld) mL/min/{1.73_m2} Normal [facility] Work Phone: Comment on above: Note: Persistent red uction for 3 months or more in an eGFR<60 mL/min/1.73 m2 defines CKD. Patients with eGFR values>/=60 mL/min/1.73 m2 may also have CKD if evidence of persistentproteinuria is present. Additional information may be found [email or web address]. PATIENT WAS FASTINGP ERFORMED BY: [facility]6370 [facility] [id number] GFR/1.73 sq M.predicted MDRD (S/P/Bld) [Vol rate/Area] mL/min/{1.73_m2} Normal [facility] Work Phone: Comment on above: PATIENT WAS FASTINGP ERFORMED BY: [place] [id number] [facility] [id number] GFR/1.73 sq M.predicted MDRD vol rate/area mL/min/{1.73_m2} Normal [facility] Work Phone: Comment on above: PATIENT WAS FASTINGP ERFORMED BY: [place] [id number] [facility] [id number] Globulin mass conc (S) 2.8 g/dL Normal 1.5-4.5 Co mprehensive [facility] Work Phone: Comment on above: PATIENT WAS FASTINGP ERFORMED BY: [facility]6370 [facility] [id number] Glucose mass conc 82 mg/dL Normal 65-99 Compreh ensive [facility] Medicine Work Phone: Comment on above: PATIENT WAS FASTINGP ERFORMED BY: [facility]6370 [facility] [id number] Potassium molar conc 4.6 mmol/L Normal 3.5-5.2 Comp rehensive Internal Medicine Work Phone: Comment on above: PATIENT WAS FASTINGP ERFORMED BY: [facility]6370 [facility] [id number] Protein mass conc 7.0 g/dL Normal 6.0-8.5 Compreh ensive [facility] Medicine Work Phone: Comment on above: PATIENT WAS FASTINGP ERFORMED BY: [facility] [id number] Sodium molar conc 141 mmol/L Normal 135-145 Compreh ensive [facility] Work Phone: Comment on above: PATIENT WAS FASTINGP ERFORMED BY: [facility]6370 [facility] [id number] Urea nitrogen mass conc 12 mg/dL Normal 5-26 [facility] Work Phone: Comment on above: PATIENT WAS FASTINGP ERFORMED BY: [facility]6370 [facility] [id number] Urea nitrogen/Creatinine mass ratio 11 mg/mg Normal 8-27 [facility] Work Phone: Comment on above: PATIENT WAS FASTINGP ERFORMED BY: [facility]6370 [facility] [id number] PSA (PROSTATE SPECIFIC ANTIG EN) (V76.44)Ordered By: Florence Carranza on 08-13-2008 Prostate specific Ag mass conc 2.3 ng/mL Normal 0.0-4.0 [facility] Work Phone: Comment on above: Fahad ECLIA methodol ogy. .According to the [employer], PSA should beundetectable after radical prostatectomy. A PSA of less than0.5 ng/mL (or undetectable) is not likely to be associated withdisease recurrence within five years of treatment.Values obtained with different assay methods or kits cannot be usedinterchangeably. Results cannot be interpreted as absolute evidenceof the presence or absence of malignant disease. PATIENT WAS FASTINGP ERFORMED BY: [facility]6370 [facility] [id number] TSH ([id number])Ordered By: Florence Carranza on 08-13-2008 Thyrotropin Qn 6.078 {uIU/mL} Abnormal 0.450-4.50 0 [facility] Work Phone: Comment on above: PATIENT WAS FASTINGP ERFORMED BY: [facility]6370 [facility] [id number] Thyroxine (T4) Free, Direct, SOrdered By: Motorcycle Delivery Driver on 08-13-2008 T4 free mass conc 0.88 ng/dL Normal 0.61-1.76 Compreh ensive [facility] Work Phone: Comment on above: PATIENT WAS FASTINGC linical Information: ADD DRAW FEE [id number] ADD J [id number] PERFORMED BY: [employer]6370 NewsyFormerly [facility] [id number] Triiodothyronine,Free,SerumO rdered By: Motorcycle Delivery Driver on 08-13-2008 T3 free mass conc 3.1 pg/mL Normal 2.3-4.2 Compreh ensive [facility] Work Phone: Comment on above: PATIENT WAS FASTINGP ERFORMED BY: StudentFunder70 [facility]Former[facility] [id number] Written AuthorizationOrdered By: Motorcycle Delivery Driver on 08-13-2008 Written Authorization WAR Normal Com prehensive [facility] Work Phone: Comment on above: Written Authorizatio n Received.Authorization received from DR CARRANZA [id number] by Leigh Ann Diehl PATIENT WAS FASTINGP ERFORMED BY: [employer]6370 [facility] [id number] COMP METABOLICOrdered By: Michael stem Biodiesel Process Control Technician on 09-19-2007 Albumin mass conc 3.7 g/dL Normal 3.4-5.0 Compreh ensive [facility] Medicine Work Phone: Albumin/Globulin mass ratio 1.2 {RATIO} Normal 0.9-2.4 [facility] Work Phone: ALP enzyme act/vol 71 U/L Normal 50-136 [facility] Work Phone: ALT enzyme act/vol 45 [iU]/L Normal 30-65 [facility] Internal Medicine Work Phone: Anion gap molar conc 5 mmol/L Normal 5-15 Comp rehensive Internal Medicine Work Phone: AST enzyme act/vol 30 U/L Normal 15-37 [facility] Work Phone: Bilirubin mass conc 1.00 mg/dL Normal 0.00-1.00 Compr ehensive [facility] Medicine Work Phone: Calcium mass conc 8.6 mg/dL Normal 8.5-10.1 Compreh ensive [facility] Work Phone: Chloride molar conc 106 mmol/L Normal 98-107 Compr ehensive [facility] Work Phone: CO2 molar conc 28.9 mmol/L Normal 21.0-32.0 Comprehen sive [facility] Medicine Work Phone: Comment on above: Please Note Refer ence Interval Change Creatinine mass conc 1.1 mg/dL Normal 0.8-1.3 Comp rehensive [facility] Medicine Work Phone: Globulin mass conc (S) 3.1 g/dL Normal 2.7-4.2 [facility] Work Phone: Comment on above: Please Note Refer ence Interval Change Glucose mass conc 78 mg/dL Normal 70-110 Compreh ensive [facility] Medicine Work Phone: Potassium molar conc 4.1 mmol/L Normal 3.5-5.1 Comp rehensive [facility] Medicine Work Phone: Protein mass conc 6.8 g/dL Normal 6.4-8.2 Compreh ensive [facility] Work Phone: Sodium molar conc 140 mmol/L Normal 136-145 Compreh ensive [facility] Medicine Work Phone: Urea nitrogen mass conc 15 mg/dL Normal 7-18 [facility] Work Phone: Urea nitrogen/Creatinine mass ratio 13.6 {RATIO} Normal 10-20 [facility] Work Phone: D BILIOrdered By: System Man ager on 09-19-2007 Bilirubin.direct mass conc 0.19 mg/dL Normal 0.00-0.30 [facility] Work Phone: PSA,TOT SCREENOrdered By: Sy stem Biodiesel Process Control Technician on 09-19-2007 Prostate specific Ag mass conc 1.92 ng/mL Normal 0.00-4.00 [facility] Work Phone: Comment on above: This test was perfor med using the TPSA method for thePapayaMobile chemistry system.Values obtained with different assay methods cannot be usedinterchangably.When changing PSA assays in the course of monitoring apatient, additional sequential testing should be carriedout to confirm baseline values. ECG B/O W INTERP (MED OFFICE ) [facility] Vital Signs Date Time Vital Sign Value Performing Clinician Facility 11-06-2024 08:26-0400 Body height 186.69 cm Roman Nichols MILITARY COOK-C Work Phone: [facility] 11-06-2024 08:26-0400 Body mass index (BMI) [Ratio] 35.1 kg/m2 Roman Nichols MILITARY COOK-C Work Phone: [facility] 11-06-2024 08:26-0400 Body weight 122.46 kg Roman Nichols MILITARY COOK-C Work Phone: [facility] 11-06-2024 08:26-0400 Diastolic blood pressure 63 mm[Hg] Roman Nichols MILITARY COOK-C Work Phone: [facility] 11-06-2024 08:26-0400 Heart rate 62 /min Roman Nichols MILITARY COOK-C Work Phone: [facility] 11-06-2024 08:26-0400 Respiratory rate 18 /min Roman Nichols MILITARY COOK-C Work Phone: [facility] 11-06-2024 08:26-0400 Systolic blood pressure 99 mm[Hg] Roman Nichols MILITARY COOK-C Work Phone: [facility] 09-06-2023 14:14-0500 Body height 186.7 cm Danny Ramos MD Work Phone: [facility] 09-06-2023 14:14-0500 Body weight 119.48 kg Danny Ramos MD Work Phone: [facility] 09-06-2023 14:14-0500 Diastolic blood pressure 71 mm[Hg] Danny Ramos MD Work Phone: [facility] 09-06-2023 14:14-0500 Heart rate 68 /min Danny Ramos MD Work Phone: [facility] 09-06-2023 14:14-0500 SaO2% (BldA) [Mass fraction] 95 % Danny Ramos MD Work Phone: [facility] 09-06-2023 14:14-0500 Systolic blood pressure 110 mm[Hg] Danny Ramos MD Work Phone: [facility] 11-30-2022 09:23-0400 Body height 185.42 cm Kimberlyn Swain MA [facility]; [facility] Work Phone: 11-30-2022 09:23-0400 Body mass index (BMI) [Ratio] 34.83 kg/m2 Kimberlyn Swain MA [facility]; [facility] Work Phone: 11-30-2022 09:23-0400 Body surface area Derived from formula 2.42 m2 Kimberlyn Swain MA [facility]; [facility] Work Phone: 11-30-2022 09:23-0400 Body temperature 95.4 [degF] Kimberlyn Swain MA [facility]; [facility] Work Phone: 11-30-2022 09:23-0400 Body weight 119.75 kg Kimberlyn Swain MA [facility]; [facility] Work Phone: 11-30-2022 09:23-0400 Diastolic blood pressure 70 mm[Hg] Kimberlyn Swain MA [facility]; [facility] Work Phone: Comment on above: Patient Position: Sitting; Cuff Location : Left Arm; Cuff Size: Standard 11-30-2022 09:23-0400 Heart rate 79 /min Kimberlyn Swain MA [facility]; [facility] Work Phone: Comment on above: Pattern: Regular 11-30-2022 09:23-0400 SaO2% (BldA) [Mass fraction] 97 % Kimberlyn Swain MA [facility]; [facility] Work Phone: Comment on above: Room air 11-30-2022 09:23-0400 Systolic blood pressure 102 mm[Hg] Kimberlyn Swain MA [facility]; [facility] Work Phone: Comment on above: Patient Position: Sitting; Cuff Location : Left Arm; Cuff Size: Standard 07-29-2022 08:15-0500 Body height 185.42 cm Kimberlyn Swain MA [facility]; [facility] Work Phone: 07-29-2022 08:15-0500 Body mass index (BMI) [Ratio] 34.96 kg/m2 Kimberlyn Swain MA [facility]; [facility] Work Phone: 07-29-2022 08:15-0500 Body surface area Derived from formula 2.43 m2 Kimberlyn Swain MA [facility]; [facility] Work Phone: 07-29-2022 08:15-0500 Body temperature 97.9 [degF] Kimberlyn Swain MA [facility]; [facility] Work Phone: 07-29-2022 08:15-0500 Body weight 120.2 kg Kimberlyn Swain MA [facility]; [facility] Work Phone: 07-29-2022 08:15-0500 Diastolic blood pressure 80 mm[Hg] Kimberlyn Swain MA [facility]; [facility] Work Phone: Comment on above: Patient Position: Sitting; Cuff Location : Left Arm; Cuff Size: Standard 07-29-2022 08:15-0500 Heart rate 63 /min Kimberlyn Swain MA [facility]; [facility] Work Phone: Comment on above: Pattern: Regular 07-29-2022 08:15-0500 Respiratory rate 18 /min Kimberlyn Swain MA [facility]; [facility] Work Phone: Comment on above: Pattern: Unlabored 07-29-2022 08:15-0500 SaO2% (BldA) [Mass fraction] 95 % Kimberlyn Swain MA [facility]; [facility] Work Phone: Comment on above: Room air 07-29-2022 08:15-0500 Systolic blood pressure 110 mm[Hg] Kimberlyn Swain MA [facility]; [facility] Work Phone: Comment on above: Patient Position: Sitting; Cuff Location : Left Arm; Cuff Size: Standard 06-11-2022 20:37-0500 SaO2% (BldA) [Mass fraction] 100 % MILITARY COOK-C Steff Ciesa MILITARY COOK Work Phone: [facility] Work Phone: 06-11-2022 20:01-0500 Body height 185.42 cm MILITARY COOK-C Steff Ciesa MILITARY COOK Work Phone: [facility] Work Phone: 06-11-2022 20:01-0500 Body mass index (BMI) [Ratio] 34.2 kg/m2 MILITARY COOK-C Steff Ciesa MILITARY COOK Work Phone: [facility] Work Phone: 06-11-2022 20:01-0500 Body temperature 97.9 [degF] MILITARY COOK-C Steff Ciesa MILITARY COOK Work Phone: [facility] Work Phone: 06-11-2022 20:01-0500 Body weight 117.93 kg MILITARY COOK-C Steff Ciesa MILITARY COOK Work Phone: [facility] Work Phone: 06-11-2022 20:01-0500 Diastolic blood pressure 81 mm[Hg] MILITARY COOK-C Steff Ciesa MILITARY COOK Work Phone: [facility] Work Phone: 06-11-2022 20:01-0500 Heart rate 71 /min MILITARY COOK-C Steff Ciesa MILITARY COOK Work Phone: [facility] Work Phone: 06-11-2022 20:01-0500 Respiratory rate 18 /min MILITARY COOK-C Steff Ciesa MILITARY COOK Work Phone: [facility] Work Phone: 06-11-2022 20:01-0500 Systolic blood pressure 135 mm[Hg] MILITARY COOK-C Steff Subramanian MILITARY COOK Work Phone: [facility] Work Phone: 05-24-2022 12:50-0500 Diastolic Blood Pressure Non-Invasive [address] MIYA PARRA MD [facility] 05-24-2022 12:50-0500 Heart rate 56 /min DR MIYA PARRA MD [facility] 05-24-2022 12:50-0500 Mean blood pressure 79 mm[Hg] DR IMYA PARRA MD [facility] 05-24-2022 12:50-0500 Respiratory rate 18 /min DR MIYA PARRA MD [facility] 05-24-2022 12:50-0500 Systolic Blood Pressure Non-Invasive [address] MIYA PARRA MD [facility] 05-24-2022 11:48-0500 Diastolic Blood Pressure Non-Invasive [address] MIYA PARRA MD [facility] 05-24-2022 11:48-0500 Heart rate 59 /min DR MIYA PARRA MD [facility] 05-24-2022 11:48-0500 Mean blood pressure 80 mm[Hg] DR MIYA PARRA MD [facility] 05-24-2022 11:48-0500 Respiratory rate 18 /min DR MIYA PARRA MD [facility] 05-24-2022 11:48-0500 Systolic Blood Pressure Non-Invasive [address] MIYA PARRA MD [facility] 05-24-2022 11:00-0500 Diastolic Blood Pressure Non-Invasive [address] MIYA PARRA MD [facility] 05-24-2022 11:00-0500 Heart rate 54 /min DR MIYA PARRA MD [facility] 05-24-2022 11:00-0500 Mean blood pressure 84 mm[Hg] DR MIYA PARRA MD [facility] 05-24-2022 08:55-0500 Body temperature 96.8 [degF] DR MIYA PARRA MD [facility] 05-24-2022 08:50-0500 Respiratory Rate - Anes 7 br/min DR MIYA PARRA MD [facility] 05-24-2022 08:45-0500 Respiratory Rate - Anes 8 br/min DR MIYA PARRA MD [facility] 05-24-2022 08:40-0500 Respiratory Rate - Anes 6 br/min DR MIYA PARRA MD [facility] 05-24-2022 05:54-0500 Body height 185.[address] MIYA PARRA MD [facility] 05-24-2022 05:54-0500 Body temperature 96.98 [degF] DR MIYA PARRA MD [facility] 05-24-2022 05:54-0500 Body weight 118.[address] MIYA PARRA MD [facility] 05-24-2022 05:54-0500 Body weight 34.39 kg/m2 DR MIYA PARRA MD [facility] 05-24-2022 05:54-0500 diastolic 89 mm[Hg] DR MIYA PARRA MD [facility] 05-24-2022 05:54-0500 Heart rate 53 /min DR MIYA PARRA MD [facility] 05-24-2022 05:54-0500 systolic 122 mm[Hg] DR MIYA PARRA MD [facility] 05-10-2022 07:59-0400 Body height 185.42 cm Alexa Slarb APPLICATION TESTER [facility]; [facility] Work Phone: 05-10-2022 07:59-0400 Body mass index (BMI) [Ratio] 34.96 kg/m2 Alexa Slarb APPLICATION TESTER [facility]; [facility] Work Phone: 05-10-2022 07:59-0400 Body surface area Derived from formula 2.43 m2 Alexa Slarb APPLICATION TESTER [facility]; [facility] Work Phone: 05-10-2022 07:59-0400 Body temperature 98.2 [degF] Alexa Slarb APPLICATION TESTER [facility]; [facility] Work Phone: 05-10-2022 07:59-0400 Body weight 120.2 kg Alexa Slarb APPLICATION TESTER [facility]; [facility] Work Phone: 05-10-2022 07:59-0400 Diastolic blood pressure 72 mm[Hg] Alexa Slarb APPLICATION TESTER [facility]; [facility] Work Phone: Comment on above: Patient Position: Sitting; Cuff Location : Left Arm; Cuff Size: Standard 05-10-2022 07:59-0400 Heart rate 58 /min Alexa Slarb APPLICATION TESTER [facility]; [facility] Work Phone: Comment on above: Pattern: Regular 05-10-2022 07:59-0400 Respiratory rate 17 /min Alexa Slarb APPLICATION TESTER [facility]; [facility] Work Phone: Comment on above: Pattern: Unlabored 05-10-2022 07:59-0400 SaO2% (BldA) [Mass fraction] 96 % Alexa Irving BARBER [facility]; [facility] Work Phone: Comment on above: Room air 05-10-2022 07:59-0400 Systolic blood pressure 118 mm[Hg] Alexa Irving BARBER [facility]; [facility] Work Phone: Comment on above: Patient Position: Sitting; Cuff Location : Left Arm; Cuff Size: Standard 05-02-2022 09:35-0400 Body height 185.[address] MIYA PARRA MD [facility] 05-02-2022 09:35-0400 Body weight 119.[address] MIYA PARRA MD [facility] 05-02-2022 09:35-0400 Body weight 34.77 kg/m2 DR MIYA PARRA MD [facility] 05-02-2022 09:35-0400 diastolic 72 mm[Hg] DR MIYA PARRA MD [facility] 05-02-2022 09:35-0400 Heart rate 62 /min DR MIYA PARRA MD [facility] 05-02-2022 09:35-0400 Respiratory rate 18 /min DR MIYA PARRA MD [facility] 05-02-2022 09:35-0400 systolic 98 mm[Hg] DR MIYA PARRA MD [facility] 04-15-2022 07:02-0400 Body height 185.42 cm Kimberlyn Swain MA [facility] Work Phone: 04-15-2022 07:02-0400 Body mass index (BMI) [Ratio] 34.17 kg/m2 Kimberlyn Swain MA [facility]; [facility] Work Phone: 04-15-2022 07:02-0400 Body surface area Derived from formula 2.4 m2 Kimberlyn Swain MA [facility]; [facility] Work Phone: 04-15-2022 07:02-0400 Body temperature 97.2 [degF] Kimberlyn Swain MA [facility]; [facility] Work Phone: 04-15-2022 07:02-0400 Body weight 117.48 kg Kimberlyn Swain MA [facility]; [facility] Work Phone: 04-15-2022 07:02-0400 Diastolic blood pressure 70 mm[Hg] Kimberlyn Swain MA [facility]; [facility] Work Phone: Comment on above: Patient Position: Sitting; Cuff Location : Left Arm; Cuff Size: Standard 04-15-2022 07:02-0400 Heart rate 65 /min Kimberlyn Swain MA [facility]; [facility] Work Phone: Comment on above: Pattern: Regular 04-15-2022 07:02-0400 Respiratory rate 16 /min Kimberlyn Swain MA [facility]; [facility] Work Phone: Comment on above: Pattern: Unlabored 04-15-2022 07:02-0400 SaO2% (BldA) [Mass fraction] 96 % Kimberlyn Swain MA [facility]; [facility] Work Phone: Comment on above: Room air 04-15-2022 07:02-0400 Systolic blood pressure 110 mm[Hg] Kimberlyn Swain MA [facility]; [facility] Work Phone: Comment on above: Patient Position: Sitting; Cuff Location : Left Arm; Cuff Size: Standard 03-16-2022 10:26-0400 Body mass index (BMI) [Ratio] 34.4 kg/m2 HENRI Subramanian NP Work Phone: [facility] Work Phone: 03-16-2022 10:26-0400 Body weight 118.38 kg [employer] Steff Subramanian [employer] Work Phone: [facility] Work Phone: 03-16-2022 10:26-0400 Diastolic blood pressure 78 mm[Hg] [employer]C Steff Subramanian [employer]OOK Work Phone: [facility] Work Phone: 03-16-2022 10:26-0400 Heart rate 94 /min [employer] Steff Subramanian MIL[employer]ARY [employer]OOK Work Phone: [facility] Work Phone: 03-16-2022 10:26-0400 Respiratory rate 18 /min [employer] Steff Subramanian MIL[employer]ARY COOK Work Phone: [facility] Work Phone: 03-16-2022 10:26-0400 SaO2% (BldA) [Mass fraction] 95 % [employer]C Steff Subramanian MIL[employer]ARY COOK Work Phone: [facility] Work Phone: 03-16-2022 10:26-0400 Systolic blood pressure 129 mm[Hg] [employer]C Steff Subramanian [employer]OOK Work Phone: [facility] Work Phone: 01-12-2022 08:06-0400 Body height 185.42 cm Alexa Villatoro LPN [facility]; [facility] Work Phone: 01-12-2022 08:06-0400 Body mass index (BMI) [Ratio] 34.17 kg/m2 Alexa Villatoro LPN [facility]; [facility] Work Phone: 01-12-2022 08:06-0400 Body surface area Derived from formula 2.4 m2 Alexa Villatoro LPN [facility]; [facility] Work Phone: 01-12-2022 08:06-0400 Body temperature 97.1 [degF] Alexa Slarb APPLICATION TESTER [facility]; [facility] Work Phone: 01-12-2022 08:06-0400 Body weight 117.48 kg Alexa Grewalrb APPLICATION TESTER [facility]; [facility] Work Phone: 01-12-2022 08:06-0400 Diastolic blood pressure 64 mm[Hg] Alexa Slarb APPLICATION TESTER [facility]; [facility] Work Phone: Comment on above: Patient Position: Sitting; Cuff Location : Left Arm; Cuff Size: Standard 01-12-2022 08:06-0400 Heart rate 65 /min Alexa Carminarb APPLICATION TESTER [facility]; [facility] Work Phone: Comment on above: Pattern: Regular 01-12-2022 08:06-0400 Respiratory rate 17 /min Alexa Carminarb APPLICATION TESTER [facility]; [facility] Work Phone: Comment on above: Pattern: Unlabored 01-12-2022 08:06-0400 SaO2% (BldA) [Mass fraction] 96 % Alexa Carminarb APPLICATION TESTER [facility]; [facility] Work Phone: Comment on above: Room air 01-12-2022 08:06-0400 Systolic blood pressure 118 mm[Hg] Alexa Grewalrb APPLICATION TESTER [facility]; [facility] Work Phone: Comment on above: Patient Position: Sitting; Cuff Location : Left Arm; Cuff Size: Standard 08-17-2021 08:37-0500 Body height 185.[address] MIYA PARRA MD [facility] 08-17-2021 08:37-0500 Body weight 120.[address] MIYA PARRA MD [facility] 08-17-2021 08:37-0500 Body weight 35.06 kg/m2 DR MIYA PARRA MD [facility] 08-17-2021 08:37-0500 diastolic 62 mm[Hg] DR MIYA PARRA MD [facility] 08-17-2021 08:37-0500 Heart rate 55 /min DR MIYA PARRA MD [facility] 08-17-2021 08:37-0500 systolic 108 mm[Hg] DR MIYA PARRA MD [facility] 08-11-2021 12:50-0500 Body height 185.42 cm Carlos Alberto Carrillo LPN [facility]; [facility] Work Phone: 08-11-2021 12:50-0500 Body mass index (BMI) [Ratio] 35.09 kg/m2 Carlos Alberto Carrillo LPN [facility]; [facility] Work Phone: 08-11-2021 12:50-0500 Body surface area Derived from formula 2.43 m2 Carlos Alberto Carrillo LPN [facility]; [facility] Work Phone: 08-11-2021 12:50-0500 Body temperature 97.8 [degF] Carlos Alberto Carrillo LPN [facility]; [facility] Work Phone: Comment on above: Method: Infrared 08-11-2021 12:50-0500 Body weight 120.66 kg Carlos Alberto Carrillo LPN [facility]; [facility] Work Phone: 08-11-2021 12:50-0500 Diastolic blood pressure 80 mm[Hg] Carlos Alberto Carrillo LPN [facility]; [facility] Work Phone: Comment on above: Patient Position: Sitting; Cuff Location : Left Arm; Cuff Size: Standard 08-11-2021 12:50-0500 Heart rate 67 /min Carlos Alberto Carrillo LPN [facility]; [facility] Work Phone: Comment on above: Pattern: Regular 08-11-2021 12:50-0500 Respiratory rate 16 /min Carlos Alberto Carirllo LPN [facility]; [facility] Work Phone: Comment on above: Pattern: Unlabored 08-11-2021 12:50-0500 SaO2% (BldA) [Mass fraction] 96 % Carlos Alberto Carrillo LPN [facility]; [facility] Work Phone: Comment on above: Room air 08-11-2021 12:50-0500 Systolic blood pressure 124 mm[Hg] Carlos Alberto Carrillo LPN [facility]; [facility] Work Phone: Comment on above: Patient Position: Sitting; Cuff Location : Left Arm; Cuff Size: Standard 07-14-2021 08:05-0500 Body height 185.42 cm Carlos Alberto Carrillo LPN [facility]; [facility] Work Phone: 07-14-2021 08:05-0500 Body mass index (BMI) [Ratio] 34.54 kg/m2 Carlos Alberto Carrillo LPN [facility]; [facility] Work Phone: 07-14-2021 08:05-0500 Body surface area Derived from formula 2.41 m2 Carlos Alberto Carrillo LPN [facility]; [facility] Work Phone: 07-14-2021 08:05-0500 Body weight 118.75 kg Carlos Alberto Carrillo LPN [facility]; [facility] Work Phone: 06-11-2021 07:17-0500 Body height 185.42 cm Carlos Alberto Carrillo LPN [facility]; [facility] Work Phone: 06-11-2021 07:17-0500 Body mass index (BMI) [Ratio] 34.54 kg/m2 Carlos Alberto Carrillo LPN [facility]; [facility] Work Phone: 06-11-2021 07:17-0500 Body surface area Derived from formula 2.41 m2 Carlos Alberto Carrillo LPN [facility]; [facility] Work Phone: 06-11-2021 07:17-0500 Body temperature 97.8 [degF] Carlos Alberto Carrillo LPN [facility]; [facility] Work Phone: Comment on above: Method: Infrared 06-11-2021 07:17-0500 Body weight 118.75 kg Carlos Alberto Carrillo LPN [facility]; [facility] Work Phone: 06-11-2021 07:17-0500 Diastolic blood pressure 78 mm[Hg] Carlos Alberto Carrillo LPN [facility]; [facility] Work Phone: Comment on above: Patient Position: Sitting; Cuff Location : Left Arm; Cuff Size: Standard 06-11-2021 07:17-0500 Heart rate 68 /min Carlos Alberto Carrillo LPN [facility]; [facility] Work Phone: Comment on above: Pattern: Regular 06-11-2021 07:17-0500 Respiratory rate 16 /min Carlos Alberto Carrillo LPN [facility]; [facility] Work Phone: Comment on above: Pattern: Unlabored 06-11-2021 07:17-0500 SaO2% (BldA) [Mass fraction] 97 % Carlos Alberto Carrillo LPN [facility]; [facility] Work Phone: Comment on above: Room air 06-11-2021 07:17-0500 Systolic blood pressure 118 mm[Hg] Carlos Alberto Carrillo LPN [facility]; [facility] Work Phone: Comment on above: Patient Position: Sitting; Cuff Location : Left Arm; Cuff Size: Standard 02-09-2021 08:52-0400 Body height 185.42 cm Alexa Villatoro LPN [facility]; [facility] Work Phone: 02-09-2021 08:52-0400 Body mass index (BMI) [Ratio] 34.7 kg/m2 Alexa Villatoro APPLICATION TESTER [facility]; [facility] Work Phone: 02-09-2021 08:52-0400 Body surface area Derived from formula 2.42 m2 Alexa Villatoro LPN [facility]; [facility] Work Phone: 02-09-2021 08:52-0400 Body temperature 98.2 [degF] Alexa Villatoro APPLICATION TESTER [facility]; [facility] Work Phone: 02-09-2021 08:52-0400 Body weight 119.3 kg Alexa Villatoro LPN [facility]; [facility] Work Phone: 02-09-2021 08:52-0400 Diastolic blood pressure 96 mm[Hg] Alexa Irving ACOSTAN [facility]; [facility] Work Phone: Comment on above: Patient Position: Sitting; Cuff Location : Left Arm; Cuff Size: Standard 02-09-2021 08:52-0400 Heart rate 54 /min Alexa Villatoro LPN [facility]; [facility] Work Phone: Comment on above: Pattern: Regular 02-09-2021 08:52-0400 SaO2% (BldA) [Mass fraction] 96 % Alexa Villatoro LPN [facility]; [facility] Work Phone: Comment on above: Room air 02-09-2021 08:52-0400 Systolic blood pressure 122 mm[Hg] Alexa Villatoro LPN [facility]; [facility] Work Phone: Comment on above: Patient Position: Sitting; Cuff Location : Left Arm; Cuff Size: Standard 10-05-2020 08:02-0400 BMI (Body Mass Index) 34.31 kg/m2 Carlos Alberto Carrillo LPN [facility]; [facility] Work Phone: 10-05-2020 08:02-0400 Body Temperature 96.9 [degF] Carlos Alberto Carrillo LPN [facility]; [facility] Work Phone: Comment on above: Method: Infrared 10-05-2020 08:02-0400 Body weight 117.96 kg Carlos Alberto Carrillo LPN [facility]; [facility] Work Phone: 10-05-2020 08:02-0400 BP Diastolic 70 mm[Hg] Carlos Alberto Carrillo LPN [facility]; [facility] Work Phone: Comment on above: Patient Position: Sitting; Cuff Location : Left Arm; Cuff Size: Standard 10-05-2020 08:02-0400 BP Systolic 106 mm[Hg] Carlos Alberto Carrillo LPN [facility]; [facility] Work Phone: Comment on above: Patient Position: Sitting; Cuff Location : Left Arm; Cuff Size: Standard 10-05-2020 08:02-0400 BSA (Body Surface Area) 2.41 m2 Carlos Alberto Carrillo LPN [facility]; [facility] Work Phone: 10-05-2020 08:02-0400 Height 185.42 cm Carlos Alberto Carrillo LPN [facility]; [facility] Work Phone: 10-05-2020 08:02-0400 Pulse (Heart Rate) 66 /min Carlos Alberto Carrillo LPN [facility]; [facility] Work Phone: Comment on above: Pattern: Regular 10-05-2020 08:02-0400 Pulse Oximetry 96 % Steff Subramanian [facility]; [facility] Work Phone: Comment on above: Room air 10-05-2020 08:02-0400 Respiratory Rate 16 /min Carlos Alberto Carrillo LPN [facility]; [facility] Work Phone: Comment on above: Pattern: Unlabored 10-05-2020 08:02-0400 SaO2% (BldA) [Mass fraction] 96 % Carlso Alberto Carrillo LPN [facility]; [facility] Work Phone: Comment on above: Room air 06-08-2020 08:17-0500 BMI (Body Mass Index) 33.25 kg/m2 Carlos Alberto Carrillo LPN [facility] Work Phone: 06-08-2020 08:17-0500 Body weight 114.31 kg Carlos Alberto Carrillo LPN [facility] Work Phone: 06-08-2020 08:17-0500 BSA (Body Surface Area) 2.37 m2 Carlos Alberto Carrillo LPN [facility] Work Phone: 06-08-2020 08:17-0500 Height 185.42 cm Carlos Alberto Carrillo LPN [facility] Work Phone: 01-31-2020 08:14-0400 BMI (Body Mass Index) 33.25 kg/m2 Carlos Alberto Carrillo LPN [facility] Work Phone: 01-31-2020 08:14-0400 Body Temperature 97.1 [degF] Carlos Alberto Carrillo LPN [facility] Work Phone: Comment on above: Method: Infrared 01-31-2020 08:14-0400 Body weight 114.31 kg Carlos Alberto Carrillo LPN [facility] Work Phone: 01-31-2020 08:14-0400 BP Diastolic 70 mm[Hg] Carlos Alberto Carrillo LPN [facility] Work Phone: Comment on above: Patient Position: Sitting; Cuff Location : Left Arm; Cuff Size: Standard 01-31-2020 08:14-0400 BP Systolic 102 mm[Hg] Carlos Alberto Carrillo LPN [facility] Work Phone: Comment on above: Patient Position: Sitting; Cuff Location : Left Arm; Cuff Size: Standard 01-31-2020 08:14-0400 BSA (Body Surface Area) 2.37 m2 Carlos Alberto Carrillo LPN [facility] Work Phone: 01-31-2020 08:14-0400 Height 185.42 cm Carlos Alberto Carrillo LPN [facility] Work Phone: 01-31-2020 08:14-0400 Pulse (Heart Rate) 64 /min Carlos Alberto Carrillo LPN [facility] Work Phone: Comment on above: Pattern: Regular 01-31-2020 08:14-0400 Pulse Oximetry 96 % Steff Subramanian [facility] Work Phone: Comment on above: Room air 01-31-2020 08:14-0400 Respiratory Rate 16 /min Carlos Alberto Carrillo LPN [facility] Work Phone: Comment on above: Pattern: Unlabored 01-31-2020 08:14-0400 SaO2% (BldA) [Mass fraction] 96 % Carlos Alberto Carrillo LPN [facility]; [facility] Work Phone: Comment on above: Room air 09-30-2019 07:42-0400 BMI (Body Mass Index) 30.22 kg/m2 Carlos Alberto Carrillo LPN [facility] Work Phone: 09-30-2019 07:42-0400 Body weight 103.9 kg Carlos Alberto Carrillo LPN [facility] Work Phone: 09-30-2019 07:42-0400 BSA (Body Surface Area) 2.28 m2 Carlos Alberto Carrillo LPN [facility] Work Phone: 09-30-2019 07:42-0400 Height 185.42 cm Carlos Alberto Carrillo LPN [facility] Work Phone: 05-24-2019 08:40-0500 BMI (Body Mass Index) 30.22 kg/m2 Carlos Alberto Carrillo LPN [facility] Work Phone: 05-24-2019 08:40-0500 Body Temperature 97 [degF] Carlos Alberto Carrillo LPN [facility] Work Phone: Comment on above: Method: Temporal 05-24-2019 08:40-0500 Body weight 103.9 kg Carlos Alberto Carrillo LPN [facility] Work Phone: 05-24-2019 08:40-0500 BP Diastolic 72 mm[Hg] Carlos Alberto Carrillo LPN [facility] Work Phone: Comment on above: Patient Position: Sitting; Cuff Location : Left Arm; Cuff Size: Standard 05-24-2019 08:40-0500 BP Systolic 126 mm[Hg] Carlos Alberto Carrillo LPN [facility] Work Phone: Comment on above: Patient Position: Sitting; Cuff Location : Left Arm; Cuff Size: Standard 05-24-2019 08:40-0500 BSA (Body Surface Area) 2.28 m2 Carlos Alberto Carrillo LPN [facility] Work Phone: 05-24-2019 08:40-0500 Height 185.42 cm Carlos Alberto Carrillo LPN [facility] Work Phone: 05-24-2019 08:40-0500 Pulse (Heart Rate) 67 /min Carlos Alberto Carrillo LPN [facility] Work Phone: Comment on above: Pattern: Regular 05-24-2019 08:40-0500 Pulse Oximetry 99 % Steff Subramanian [facility] Work Phone: Comment on above: Room air 05-24-2019 08:40-0500 Respiratory Rate 16 /min Carlos Alberto Carrillo LPN [facility] Work Phone: Comment on above: Pattern: Unlabored 05-24-2019 08:40-0500 SaO2% (BldA) [Mass fraction] 99 % Carlso Alberto Carrillo LPN [facility]; [facility] Work Phone: Comment on above: Room air 02-20-2019 09:21-0400 BMI (Body Mass Index) 30.22 kg/m2 Carlos Alberto Carrillo LPN [facility] Work Phone: 02-20-2019 09:21-0400 BMI (Body Mass Index) 30.66 kg/m2 Steff Wallace [facility] Work Phone: 02-20-2019 09:21-0400 Body Temperature 97.2 [degF] Carlos Alberto Carrillo LPN [facility] Work Phone: Comment on above: Method: Temporal 02-20-2019 09:21-0400 Body weight 103.89 kg Carlos Alberto Carrillo LPN [facility] Work Phone: 02-20-2019 09:21-0400 Body weight 105.41 kg Steff Subramanian [facility] Work Phone: 02-20-2019 09:21-0400 BP Diastolic 82 mm[Hg] Carlos Alberto Carrillo LPN [facility] Work Phone: Comment on above: Patient Position: Sitting; Cuff Location : Left Arm; Cuff Size: Standard 02-20-2019 09:21-0400 BP Systolic 112 mm[Hg] Carlos Alberto Carrillo LPN [facility] Work Phone: Comment on above: Patient Position: Sitting; Cuff Location : Left Arm; Cuff Size: Standard 02-20-2019 09:21-0400 BSA (Body Surface Area) 2.28 m2 Carlos Alberto Carrillo LPN [facility] Work Phone: 02-20-2019 09:21-0400 BSA (Body Surface Area) 2.29 m2 Steff Subramanian [facility] Work Phone: 02-20-2019 09:21-0400 Height 185.42 cm Carlos Alberto Carrillo LPN [facility] Work Phone: 02-20-2019 09:21-0400 Pulse (Heart Rate) 48 /min Carlos Alberto Gerardo BARBER [facility] Work Phone: Comment on above: Pattern: Regular 02-20-2019 09:21-0400 Pulse Oximetry 93 % Steff Subramanian [facility] Work Phone: Comment on above: Room air 02-20-2019 09:21-0400 Respiratory Rate 16 /min Carlos Alberto Carrillo LPN [facility] Work Phone: Comment on above: Pattern: Unlabored 02-20-2019 09:21-0400 SaO2% (BldA) [Mass fraction] 93 % Carlos Alberto Gerardo BARBER [facility]; [facility] Work Phone: Comment on above: Room air 02-11-2019 10:22-0400 BMI (Body Mass Index) 30.66 kg/m2 EmeritaDezide [facility] Work Phone: 02-11-2019 10:22-0400 Body Temperature 97.4 [degF] EmeritaDezide [facility] Work Phone: Comment on above: Method: Temporal 02-11-2019 10:22-0400 Body weight 105.41 kg Emerita Modebo [facility] Work Phone: 02-11-2019 10:22-0400 BP Diastolic 74 mm[Hg] EmeritaDezide [facility] Work Phone: Comment on above: Patient Position: Sitting; Cuff Location : Left Arm; Cuff Size: Standard 02-11-2019 10:22-0400 BP Systolic 126 mm[Hg] EmeritaDezide [facility] Work Phone: Comment on above: Patient Position: Sitting; Cuff Location : Left Arm; Cuff Size: Standard 02-11-2019 10:22-0400 BSA (Body Surface Area) 2.29 m2 EmeritaDezide [facility] Work Phone: 02-11-2019 10:22-0400 Height 185.42 cm EmeritaDezide [facility] Work Phone: 02-11-2019 10:22-0400 Pulse (Heart Rate) 75 /min Emerita Grubbs [facility] Work Phone: Comment on above: Pattern: Regular 02-11-2019 10:22-0400 Pulse Oximetry 96 % Steff Subramanian [facility] Work Phone: Comment on above: Room air 02-11-2019 10:22-0400 Respiratory Rate 18 /min Emerita Grubbs [facility] Work Phone: Comment on above: Pattern: Unlabored 02-11-2019 10:22-0400 SaO2% (BldA) [Mass fraction] 96 % Emerita Grubbs [facility]; [facility] Work Phone: Comment on above: Room air 02-08-2019 08:52-0400 BMI (Body Mass Index) 30.66 kg/m2 Alexa Slarb APPLICATION TESTER [facility] Work Phone: 02-08-2019 08:52-0400 Body Temperature 98.7 [degF] Alexa Slarb APPLICATION TESTER [facility] Work Phone: 02-08-2019 08:52-0400 Body weight 105.41 kg Alexa Slarb APPLICATION TESTER [facility] Work Phone: 02-08-2019 08:52-0400 BP Diastolic 82 mm[Hg] Alexa Slarb APPLICATION TESTER [facility] Work Phone: Comment on above: Patient Position: Sitting; Cuff Location : Left Arm; Cuff Size: Standard 02-08-2019 08:52-0400 BP Systolic 126 mm[Hg] Alexa Slarb APPLICATION TESTER [facility] Work Phone: Comment on above: Patient Position: Sitting; Cuff Location : Left Arm; Cuff Size: Standard 02-08-2019 08:52-0400 BSA (Body Surface Area) 2.29 m2 Alexa Slarb APPLICATION TESTER [facility] Work Phone: 02-08-2019 08:52-0400 Height 185.42 cm Alexa Slarb APPLICATION TESTER [facility] Work Phone: 02-08-2019 08:52-0400 Pulse (Heart Rate) 84 /min Alexa Irving BARBER [facility] Work Phone: Comment on above: Pattern: Regular 02-08-2019 08:52-0400 Pulse Oximetry 95 % Steff Subramanian [facility] Work Phone: Comment on above: Room air 02-08-2019 08:52-0400 Respiratory Rate 18 /min Alexa Irving BARBER [facility] Work Phone: Comment on above: Pattern: Unlabored 02-08-2019 08:52-0400 SaO2% (BldA) [Mass fraction] 95 % lAexa Villatoro LPN [facility]; [facility] Work Phone: Comment on above: Room air 08-22-2018 08:25-0500 BMI (Body Mass Index) 33.25 kg/m2 Madelyn Lina [facility] Work Phone: 08-22-2018 08:25-0500 Body Temperature 97.1 [degF] Madelyn Esparzalear [facility] Internal Medicine Work Phone: Comment on above: Method: Temporal 08-22-2018 08:25-0500 Body weight 114.31 kg Madelyn Lina [facility] Internal Medicine Work Phone: 08-22-2018 08:25-0500 BP Diastolic 70 mm[Hg] Madelyn Esparzalear [facility] Internal Medicine Work Phone: Comment on above: Patient Position: Sitting; Cuff Location : Left Arm; Cuff Size: Standard 08-22-2018 08:25-0500 BP Systolic 116 mm[Hg] Madelyn Esparzalear [facility] Internal Medicine Work Phone: Comment on above: Patient Position: Sitting; Cuff Location : Left Arm; Cuff Size: Standard 08-22-2018 08:25-0500 BSA (Body Surface Area) 2.37 m2 Madelyn Esparzalear [facility] Internal Medicine Work Phone: 08-22-2018 08:25-0500 Height 185.42 cm Madelyn Lina [facility] Internal Medicine Work Phone: 08-22-2018 08:25-0500 Pulse (Heart Rate) 51 /min Madelyn Mills [facility] Internal Medicine Work Phone: Comment on above: Pattern: Regular 08-22-2018 08:25-0500 Pulse Oximetry 98 % Steff Subramanian [facility] Internal Medicine Work Phone: Comment on above: Room air 08-22-2018 08:25-0500 Respiratory Rate 17 /min Madelyn Mills [facility] Internal Medicine Work Phone: Comment on above: Pattern: Unlabored 08-22-2018 08:25-0500 SaO2% (BldA) [Mass fraction] 98 % Madelyn Mills [facility] Internal Medicine; [facility] Work Phone: Comment on above: Room air 05-21-2018 09:42-0500 BMI (Body Mass Index) 34.86 kg/m2 Madelyn Mills [facility] Internal Medicine Work Phone: 05-21-2018 09:42-0500 Body Temperature 97.8 [degF] Madelyn Mills [facility] Internal Medicine Work Phone: Comment on above: Method: Temporal 05-21-2018 09:42-0500 Body weight 119.86 kg Madelyn Mills [facility] Internal Medicine Work Phone: 05-21-2018 09:42-0500 BP Diastolic 72 mm[Hg] Madelyn Mills [facility] Internal Medicine Work Phone: Comment on above: Patient Position: Sitting; Cuff Location : Left Arm; Cuff Size: Standard 05-21-2018 09:42-0500 BP Systolic 128 mm[Hg] Madelyn Mills [facility] Internal Medicine Work Phone: Comment on above: Patient Position: Sitting; Cuff Location : Left Arm; Cuff Size: Standard 05-21-2018 09:42-0500 BSA (Body Surface Area) 2.42 m2 Madelyn Mills [facility] Internal Medicine Work Phone: 05-21-2018 09:42-0500 Height 185.42 cm Madelyn Mills [facility] Internal Medicine Work Phone: 05-21-2018 09:42-0500 Pulse (Heart Rate) 66 /min Madelyn Mills [facility] Internal Medicine Work Phone: Comment on above: Pattern: Regular 05-21-2018 09:42-0500 Pulse Oximetry 96 % Steff Subramanian [facility] Internal Medicine Work Phone: Comment on above: Room air 05-21-2018 09:42-0500 Respiratory Rate 17 /min Madelyn Mills [facility] Internal Medicine Work Phone: Comment on above: Pattern: Unlabored 05-21-2018 09:42-0500 SaO2% (BldA) [Mass fraction] 96 % Madelyn Mills [facility] Internal Medicine; [facility] Work Phone: Comment on above: Room air 05-21-2018 09:42-0500 Weight 119.86 kg Steff Subramanian [facility] Internal Medicine Work Phone: 02-16-2018 08:11-0400 BMI (Body Mass Index) 32.59 kg/m2 Madelyn Mills [facility] Internal Medicine Work Phone: 02-16-2018 08:11-0400 Body Temperature 97.3 [degF] Madelyn Mills [facility] Internal Medicine Work Phone: Comment on above: Method: Temporal 02-16-2018 08:11-0400 Body weight 112.04 kg Madelyn Mills [facility] Internal Medicine Work Phone: 02-16-2018 08:11-0400 BP Diastolic 70 mm[Hg] Madelyn Mills [facility] Internal Medicine Work Phone: Comment on above: Patient Position: Sitting; Cuff Location : Left Arm; Cuff Size: Standard 02-16-2018 08:11-0400 BP Systolic 102 mm[Hg] Madelyn Mills [facility] Internal Medicine Work Phone: Comment on above: Patient Position: Sitting; Cuff Location : Left Arm; Cuff Size: Standard 02-16-2018 08:11-0400 BSA (Body Surface Area) 2.35 m2 Madelyn Mills [facility] Internal Medicine Work Phone: 02-16-2018 08:11-0400 Height 185.42 cm Madelyn Mills [facility] Internal Medicine Work Phone: 02-16-2018 08:11-0400 Pulse (Heart Rate) 88 /min Madelyn Mills [facility] Internal Medicine Work Phone: Comment on above: Pattern: Regular 02-16-2018 08:11-0400 Pulse Oximetry 97 % Steff Subramanian [facility] Internal Medicine Work Phone: Comment on above: Room air 02-16-2018 08:11-0400 Respiratory Rate 16 /min Madelyn Esparzalear [facility] Internal Medicine Work Phone: Comment on above: Pattern: Unlabored 02-16-2018 08:11-0400 SaO2% (BldA) [Mass fraction] 97 % Madelyn Mills [facility] Internal Medicine; [facility] Work Phone: Comment on above: Room air 02-16-2018 08:11-0400 Weight 112.04 kg Steff Subramanian [facility] Internal Medicine Work Phone: 01-01-2018 13:28-0400 BMI (Body Mass Index) 32.59 kg/m2 Carlos Alberto Carrillo LPN [facility] Internal Medicine Work Phone: 01-01-2018 13:28-0400 Body Temperature 98 [degF] Carlos Alberto Carrillo LPN [facility] Internal Medicine Work Phone: 01-01-2018 13:28-0400 Body weight 112.04 kg Carlos Alberto Carrillo LPN [facility] Internal Medicine Work Phone: 01-01-2018 13:28-0400 BP Diastolic 76 mm[Hg] Carlos Alberto Carrillo LPN [facility] Internal Medicine Work Phone: Comment on above: Patient Position: Sitting; Cuff Location : Left Arm; Cuff Size: Standard 01-01-2018 13:28-0400 BP Systolic 142 mm[Hg] Carlos Alberto Carrillo LPN [facility] Internal Medicine Work Phone: Comment on above: Patient Position: Sitting; Cuff Location : Left Arm; Cuff Size: Standard 01-01-2018 13:28-0400 BSA (Body Surface Area) 2.35 m2 Carlos Alberto Carrillo LPN [facility] Internal Medicine Work Phone: 01-01-2018 13:28-0400 Height 185.42 cm Carlos Alberto Carrillo LPN [facility] Internal Medicine Work Phone: 01-01-2018 13:28-0400 Pulse (Heart Rate) 71 /min Carlos Alberto Carrillo LPN Comprehensiv e Internal Medicine Work Phone: Comment on above: Pattern: Regular 01-01-2018 13:28-0400 Pulse Oximetry 95 % Steff Subramanian [facility] Internal Medicine Work Phone: Comment on above: Room air 01-01-2018 13:28-0400 Respiratory Rate 17 /min Carlos Alberto Gerardo BARBER [facility] Work Phone: Comment on above: Pattern: Unlabored 01-01-2018 13:28-0400 SaO2% (BldA) [Mass fraction] 95 % Carlos Alberto Carrillo LPN [facility] Internal Medicine; [facility] Work Phone: Comment on above: Room air 01-01-2018 13:28-0400 Weight 112.04 kg Steff Subramanian [facility] Internal Medicine Work Phone: 10-30-2015 10:43-0400 BMI (Body Mass Index) 32.59 kg/m2 DEVON Rosario LPN [facility] Internal Medicine Work Phone: 10-30-2015 10:43-0400 Body Temperature 97.6 [degF] DEVON Rosario LPN [facility] Internal Medicine Work Phone: Comment on above: Method: Temporal 10-30-2015 10:43-0400 Body weight 112.04 kg DEVONCEZAR Rosario LPN [facility] Internal Medicine Work Phone: 10-30-2015 10:43-0400 BP Diastolic 80 mm[Hg] DEVON Rosario LPN [facility] Internal Medicine Work Phone: Comment on above: Patient Position: Sitting; Cuff Location : Left Arm; Cuff Size: Large 10-30-2015 10:43-0400 BP Systolic 120 mm[Hg] DEVON Rosario LPN [facility] Internal Medicine Work Phone: Comment on above: Patient Position: Sitting; Cuff Location : Left Arm; Cuff Size: Large 10-30-2015 10:43-0400 BSA (Body Surface Area) 2.35 m2 DEVON Rosario LPN [facility] Work Phone: 10-30-2015 10:43-0400 Height 185.42 cm DEVON Rosario LPN [facility] Internal Medicine Work Phone: 10-30-2015 10:43-0400 Pulse (Heart Rate) 64 /min DEVON Rosario LPN [facility] Work Phone: Comment on above: Pattern: Regular 10-30-2015 10:43-0400 Pulse Oximetry 96 % Steff Subramanian [facility] Internal Medicine Work Phone: Comment on above: Room air 10-30-2015 10:43-0400 Respiratory Rate 18 /min DEVON Rosario LPN [facility] Work Phone: Comment on above: Pattern: Unlabored 10-30-2015 10:43-0400 SaO2% (BldA) [Mass fraction] 96 % DEVON Rosario LPN [facility]; [facility] Work Phone: Comment on above: Room air 10-30-2015 10:43-0400 Weight 112.04 kg Steff Subramanian [facility] Internal Medicine Work Phone: 07-08-2011 13:42-0500 BMI (Body Mass Index) 33.64 kg/m2 DEVON Rosario LPN [facility] Work Phone: 07-08-2011 13:42-0500 Body Temperature 98.2 [degF] DEVON Rosario LPN [facility] Work Phone: Comment on above: Method: Oral 07-08-2011 13:42-0500 Body weight 115.67 kg DEVON Rosario LPN [facility] Internal Medicine Work Phone: 07-08-2011 13:42-0500 BP Diastolic 76 mm[Hg] DEVON Rosario LPN [facility] Work Phone: Comment on above: Patient Position: Sitting; Cuff Location : Left Arm; Cuff Size: Standard 07-08-2011 13:42-0500 BP Systolic 122 mm[Hg] DEVON Rosario LPN [facility] Work Phone: Comment on above: Patient Position: Sitting; Cuff Location : Left Arm; Cuff Size: Standard 07-08-2011 13:42-0500 BSA (Body Surface Area) 2.39 m2 DEVON Rosario LPN [facility] Work Phone: 07-08-2011 13:42-0500 Height 185.42 cm DEVON Rosario LPN [facility] Internal Medicine Work Phone: 07-08-2011 13:42-0500 Pulse (Heart Rate) 70 /min DEVON Rosario LPN [facility] Internal Medicine Work Phone: Comment on above: Pattern: Regular 07-08-2011 13:42-0500 Respiratory Rate 18 /min DEVON Rosario LPN [facility] Internal Medicine Work Phone: Comment on above: Pattern: Unlabored 07-08-2011 13:42-0500 Weight 115.67 kg Steff Subramanian [facility] Internal Medicine Work Phone: 04-15-2009 08:24-0400 Body Temperature 97.4 [degF] [facility] Internal Medicine Work Phone: Comment on above: Method: Oral 04-15-2009 08:24-0400 Body weight 0 kg [facility] Internal Medicine Work Phone: 04-15-2009 08:24-0400 BP Diastolic 74 mm[Hg] [facility] Internal Medicine Work Phone: Comment on above: Patient Position: Sitting; Cuff Location : Right Arm; Cuff Size: Large 04-15-2009 08:24-0400 BP Systolic 136 mm[Hg] [facility] Internal Medicine Work Phone: Comment on above: Patient Position: Sitting; Cuff Location : Right Arm; Cuff Size: Large 04-15-2009 08:24-0400 Head Circumference 0 cm Steff Brookenorris [facility] Internal Medicine Work Phone: 04-15-2009 08:24-0400 Head Occipital-frontal circumference 0 cm [facility] Internal Medicine; [facility] Internal Medicine Work Phone: 04-15-2009 08:24-0400 Height 0 cm [facility] Internal Medicine Work Phone: 04-15-2009 08:24-0400 Pulse (Heart Rate) 68 /min [facility] Internal Medicine Work Phone: Comment on above: Pattern: Regular 04-15-2009 08:24-0400 Respiratory Rate 18 /min [facility] Internal Medicine Work Phone: Comment on above: Pattern: Unlabored 04-15-2009 08:24-0400 Weight 0 kg Steff Subramanian [facility] Internal Medicine Work Phone: 09-18-2008 13:31-0400 Body weight 115.67 kg DEVON Rosario LPN [facility] Work Phone: 09-18-2008 13:31-0400 BP Diastolic 78 mm[Hg] DEVON Rosario LPN [facility] Work Phone: Comment on above: Patient Position: Sitting; Cuff Location : Left Arm; Cuff Size: Standard 09-18-2008 13:31-0400 BP Systolic 122 mm[Hg] DEVON Rosario LPN [facility] Work Phone: Comment on above: Patient Position: Sitting; Cuff Location : Left Arm; Cuff Size: Standard 09-18-2008 13:31-0400 Head Circumference 0 cm Steff Subramanian [facility] Internal Medicine Work Phone: 09-18-2008 13:31-0400 Head Occipital-frontal circumference 0 cm DEVON Rosario LPN [facility] Internal Medicine; [facility] Work Phone: 09-18-2008 13:31-0400 Height 0 cm DEVON Rosario LPN [facility] Work Phone: 09-18-2008 13:31-0400 Pulse (Heart Rate) 70 /min DEVON Rosario LPN [facility] Work Phone: Comment on above: Pattern: Regular 09-18-2008 13:31-0400 Respiratory Rate 16 /min DEVON Rosario LPN [facility] Work Phone: Comment on above: Pattern: Unlabored 09-18-2008 13:31-0400 Weight 115.67 kg Steff Subramanian [facility] Internal Medicine Work Phone: 08-12-2008 09:52-0500 Body weight 102.06 kg DEVON Rosario LPN [facility] Work Phone: 08-12-2008 09:52-0500 BP Diastolic 84 mm[Hg] DEVON Rosario LPN [facility] Work Phone: Comment on above: Patient Position: Sitting; Cuff Location : Left Arm; Cuff Size: Standard 08-12-2008 09:52-0500 BP Systolic 120 mm[Hg] DEVON Rosario [facility] Internal Medicine Work Phone: Comment on above: Patient Position: Sitting; Cuff Location : Left Arm; Cuff Size: Standard 08-12-2008 09:52-0500 [facility] Work Phone: 08-12-2008 09:52-0500 Head Occipital-frontal circumference 0 cm DEVON Rosario [employer]PLICATION TESTER [facility] Internal Medicine; [facility] Work Phone: 08-12-2008 09:52-0500 Height 0 cm DEVON Rosario [employer]PLICATION TE[employer] [facility] Internal Medicine Work Phone: 08-12-2008 09:52-0500 Pulse (Heart Rate) 70 /min DEVON Rosario [facility] Internal Medicine Work Phone: Comment on above: Pattern: Regular 08-12-2008 09:52-0500 Respiratory Rate 16 /min DEVON Rosario [facility] Internal Medicine Work Phone: Comment on above: Pattern: Unlabored 08-12-2008 09:52-0500 Weight 102.06 kg Steff Brookenorris [facility] Internal Medicine Work Phone: 10-01-2007 08:07-0400 BMI (Body Mass Index) 29.68 kg/m2 Sravanthi Yin [facility] Internal Medicine Work Phone: 10-01-2007 08:07-0400 Body Temperature 96.9 [degF] Sravanthi Yin [facility] Internal Medicine Work Phone: Comment on above: Method: Oral 10-01-2007 08:07-0400 Body weight 102.06 kg Sravanthi Yin [facility] Internal Medicine Work Phone: 10-01-2007 08:07-0400 BP Diastolic 76 mm[Hg] Sravanthi Yin [facility] Internal Medicine Work Phone: Comment on above: Patient Position: Sitting; Cuff Location : Left Arm; Cuff Size: Standard 10-01-2007 08:07-0400 BP Systolic 124 mm[Hg] Sravanthi Yin LPN [facility] Work Phone: Comment on above: Patient Position: Sitting; Cuff Location : Left Arm; Cuff Size: Standard 10-01-2007 08:07-0400 BSA (Body Surface Area) 2.26 m2 Sravanthi Yin LPN [facility] Work Phone: 10-01-2007 08:07-0400 Head Circumference 0 cm Setff Subramanian [facility] Work Phone: 10-01-2007 08:07-0400 Head Occipital-frontal circumference 0 cm Sravanthi Yin LPN [facility]; [facility] Work Phone: 10-01-2007 08:07-0400 Height 185.42 cm Sravanthi Yin LPN [facility] Work Phone: 10-01-2007 08:07-0400 Pulse (Heart Rate) 66 /min Sravanthi Yin LPN [facility] Work Phone: Comment on above: Pattern: Regular 10-01-2007 08:07-0400 Pulse Oximetry 98 % Steff Subramanian [facility] Work Phone: Comment on above: Room air 10-01-2007 08:07-0400 Respiratory Rate 17 /min Sravanthi Yin LPN [facility] Work Phone: Comment on above: Pattern: Unlabored 10-01-2007 08:07-0400 SaO2% (BldA) [Mass fraction] 98 % Sravanthi Yin LPN [facility]; [facility] Work Phone: Comment on above: Room air 10-01-2007 08:07-0400 Weight 102.06 kg Steff Subramanian [facility] Work Phone: 09-18-2007 09:01-0400 BMI (Body Mass Index) 29.68 kg/m2 Florence Carranza MD Work Phone: [facility] Work Phone: 09-18-2007 09:01-0400 Body Temperature 98.2 [degF] Florence Carranza MD Work Phone: [facility] Work Phone: Comment on above: Method: Oral 09-18-2007 09:01-0400 Body weight 102.06 kg Florence Carranza MD Work Phone: [facility] Work Phone: 09-18-2007 09:01-0400 BP Diastolic 80 mm[Hg] Florence Carranza MD Work Phone: [facility] Work Phone: Comment on above: Patient Position: Sitting; Cuff Location : Left Arm; Cuff Size: Standard 09-18-2007 09:01-0400 BP Systolic 120 mm[Hg] Florence Carranza MD Work Phone: [facility] Work Phone: Comment on above: Patient Position: Sitting; Cuff Location : Left Arm; Cuff Size: Standard 09-18-2007 09:01-0400 BSA (Body Surface Area) 2.26 m2 Florence Carranza MD Work Phone: [facility] Work Phone: 09-18-2007 09:01-0400 Head Circumference 0 cm Steff Subramanian [facility] Work Phone: 09-18-2007 09:01-0400 Head Occipital-frontal circumference 0 cm Florence Carranza MD Work Phone: [facility]; [facility] Work Phone: 09-18-2007 09:01-0400 Height 185.42 cm Florence Carranza MD Work Phone: [facility] Work Phone: 09-18-2007 09:01-0400 Pulse (Heart Rate) 60 /min Florence Carranza MD Work Phone: [facility] Work Phone: Comment on above: Pattern: Regular 09-18-2007 09:01-0400 Respiratory Rate 18 /min Florence Carranza MD Work Phone: [facility] Work Phone: Comment on above: Pattern: Unlabored 09-18-2007 09:01-0400 Weight 102.06 kg Steff Subramanian [facility] Work Phone: Encounters Encounter Date Encounter Type Care Provider Facility Start: 02-17-2025 End: 02-17-2025 ambulatory Roman Nichols [employer] [employer] Work Phone: -Pulmonary Services/Neurology Start: 02-17-2025 End: 02-17-2025 Patient encounter procedure Hodan Lockett [employer] [employer] -Pulmonary Services/Neurology Work Phone: Start: 02-17-2025 End: 02-17-2025 ambulatory Hodan Lockett [employer] Facility:[facility] Start: 01-17-2025 End: 01-17-2025 ambulatory Roman Nichols [employer] [employer] Work Phone: -Pulmonary Services/Neurology Start: 01-17-2025 End: 01-17-2025 Patient encounter procedure Hodan Lockett [employer] [employer] -Pulmonary Services/Neurology Work Phone: Start: 01-17-2025 End: 01-17-2025 ambulatory Hodan Lockett [employer] Facility:[facility] Start: 01-15-2025 End: 01-15-2025 ambulatory Roman Nichols [employer] [employer] Work Phone: -Laboratory Start: 01-15-2025 End: 01-15-2025 Patient encounter procedure Hodan Lockett [facility] -Laboratory Work Phone: Start: 01-15-2025 End: 01-15-2025 ambulatory Hodan Lockett [employer] Facility:[facility] Start: 12-04-2024 ambulatory Roman Nichols Facility :[facility] Start: 12-04-2024 Non-patient / Non-visit Dr. Peyton irene MD -[facility] Start: 12-04-2024 End: 12-04-2024 ambulatory Roman Nichols [employer] [employer] Work Phone: [facility] Work Phone: Start: 12-04-2024 End: 12-04-[address] Peyton Rucker MD -Cardiovascular Services Work Phone: Start: 12-04-2024 End: 12-04-2024 ambulatory Peyton Rucker Facility:[facility] Start: 11-06-2024 End: 11-06-2024 ambulatory Roman Nichols [employer] Work Phone: [facility] Work Phone: Start: 11-06-2024 End: 11-06-[address] Peyton Rucker MD -Laboratory Work Phone: Start: 11-06-2024 End: 11-06-[address] Peyton Rucker MD -[facility] Work Phone: Start: 11-06-2024 End: 11-06-2024 ambulatory Roman Nichols Facility:[facility] Start: 11-06-2024 End: 11-06-2024 ambulatory Roman Nichols Facility:[facility] Start: 05-27-2024 End: 05-28-2024 ambulatory Roman Nichols Facility:[facility] Start: 09-06-2023 End: 09-06-2023 ambulatory PEYTON RUCKER [facility] Start: 09-06-2023 End: 09-06-2023 Patient encounter procedure Danny Ramos MD Work Phone: [facility] Cardiology Antolin Comment on above: Paroxysmal atrial fi brillation (HCC) (Primary Dx); 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; Encounter for monitoring flecainide therapy; At risk for stroke; Anticoagulant long-term use; Obesity, Class I, BMI 30-34.9 Start: 06-09-2023 End: 06-09-2023 ambulatory [facility] Work Phone: Start: 06-09-2023 End: 06-09-2023 Patient encounter procedure [facility]-Laboratory Work Phone: Start: 11-30-2022 End: 12-06-2022 Office outpatient visit 15 minutes Roman Nichols CNP Work Phone: [facility] Start: 11-21-2022 ambulatory Steff Subramanian [facility] Internal Med Start: 07-29-2022 End: 07-31-2022 Office outpatient visit 15 minutes Roman Nichols CNP Work Phone: [facility] Start: 06-12-2022 End: 06-12-2022 ambulatory [employer] Steff Subramanian [employer] Work Phone: [facility] Work Phone: Start: 06-12-2022 End: 06-12-2022 Patient encounter procedure [employer] Steff Subramanian [employer] Work Phone: [facility], [facility] Start: 06-11-2022 End: 06-11-2022 Emergency department patient visit [employer] Steff Subramanian [employer] Work Phone: [facility]-Emergency Department Start: 05-24-2022 End: 05-24-2022 ambulatory MIYA PARRA MD Facility:[facility] Start: 05-24-2022 End: 05-24-[address] MIYA PARRA MD [facility] Start: 05-10-2022 End: 05-10-2022 Office consultation new/estab patient 30 min Roman Nichols CNP Work Phone: [facility] Start: 05-10-2022 End: 05-10-2022 Preprocedural examination done Alexa Villatoro LPN [facility]; [facility] Work Phone: Start: 05-10-2022 Review Roman Nichols CNP Work Phone: [facility] Start: 05-02-2022 End: 05-03-2022 ambulatory MIYA PARRA MD Facility:[facility] Start: 05-02-2022 End: 05-02-[address] MIYA PARRA MD [facility] Start: 05-02-2022 End: 05-02-[address] MIYA PARRA MD [facility] Start: 04-15-2022 End: 04-27-2022 Office outpatient visit 15 minutes Roman Nichols COM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 Work Phone: [facility] Start: 03-16-2022 End: 03-16-2022 Admission to same day surgery center [employer] Steff Subramanian [employer] Work Phone: [facility] Start: 03-16-2022 End: 03-16-2022 Patient encounter procedure [employer] Steff Subramanian [employer] Work Phone: [facility] Start: 01-12-2022 End: 01-12-2022 Office outpatient visit 25 minutes Roman Nichols COM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 Work Phone: [facility] Start: 08-31-2021 End: 08-31-2021 ambulatory MIYA PARRA MD Facility:[facility] Start: 08-17-2021 End: 08-18-2021 ambulatory MIYA PARRA MD Facility:[facility] Start: 08-17-2021 End: 08-18-2021 ambulatory MIYA PARRA MD Facility:B Start: 08-17-2021 End: 08-17-[address] MIYA PARRA MD [facility] Start: 08-13-2021 End: 08-14-2021 ambulatory MIYA PARRA MD Facility:B Start: 08-11-2021 End: 08-11-2021 Office outpatient visit 25 minutes Steff Subramanian COM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 Work Phone: [facility] Start: 08-11-2021 End: 08-11-2021 Preprocedural examination done Carlos Alberto Crarillo LPN [facility]; [facility] Work Phone: Start: 07-30-2021 Patient encounter status MILITARY COOK-C Steff Subramanian MILITARY COOK Work Phone: [facility] Start: 07-14-2021 End: 07-14-2021 Office outpatient visit 15 minutes Steff Subramanian CNP Work Phone: [facility] Start: 06-11-2021 End: 06-11-2021 Office outpatient visit 25 minutes Steff Subramanian CNP Work Phone: [facility] Start: 03-17-2021 End: 03-17-2021 Admission to establishment Steff Subramanian CNP Work Phone: [facility] Start: 02-09-2021 End: 02-09-2021 Office outpatient visit 25 minutes Steff Subramanian CNP Work Phone: [facility] Start: 11-16-2020 End: 11-16-2020 Annotation/Addendum Steff Subramanian CNP Work Phone: [facility] Start: 10-05-2020 End: 10-05-2020 Office outpatient visit 25 minutes Steff Subramainan [facility] Start: 10-05-2020 Review Steff Subramanian [facility] Start: 06-08-2020 End: 06-08-2020 Office outpatient visit 5 minutes Steff Subramanian [facility] Start: 06-08-2020 End: 06-08-2020 Office outpatient visit 25 minutes Steff Subramanian [facility] Start: 06-08-2020 Review Steff Subramanian [facility] Start: 01-31-2020 End: 01-31-2020 Office outpatient visit 25 minutes Steff Subramanian [facility] Start: 09-30-2019 End: 09-30-2019 Office outpatient visit 15 minutes Steff Subramanian [facility] Start: 05-24-2019 End: 05-24-2019 Office outpatient visit 25 minutes Steff Subramanian [facility] Start: 03-13-2019 Review Steff Subramanian Javadens [facility] Start: 02-28-2019 End: 02-28-2019 Annotation/Addendum Steff Subramanian [facility] Start: 02-20-2019 End: 02-20-2019 Office outpatient visit 15 minutes Steff Subramanian [facility] Start: 02-20-2019 Review Steff Moris [facility] Start: 02-11-2019 End: 02-11-2019 Office outpatient visit 15 minutes Steff Ciesa [facility] Start: 02-08-2019 Review Steff Subramanian [facility] morelos [facility] Start: 02-08-2019 End: 02-08-2019 Office outpatient visit 25 minutes Steff Subramanian [facility] Start: 08-22-2018 End: 08-22-2018 Office outpatient visit 25 minutes Steff Subramanian [facility] Start: 08-06-2018 End: 08-06-2018 Annotation/Addendum Steff Subramanian [facility] Start: 05-22-2018 End: 05-22-2018 Annotation/Addendum Steff Subramanian Roger Commercial Intelligence Manager [facility] Start: 05-21-2018 End: 05-21-2018 Office outpatient visit 25 minutes Steff Jenkinsnorris [facility] Start: 04-09-2018 End: 04-09-2018 Annotation/Addendum Steff Subramanian Roger Commercial Intelligence Manager [facility] Start: 02-23-2018 End: 02-23-2018 Annotation/Addendum Steff Subramanian [facility] Start: 02-16-2018 End: 02-16-2018 Office outpatient visit 25 minutes Steff Alicenroris [facility] Start: 01-02-2018 End: 01-02-2018 Annotation/Addendum Steff Subramanian [facility] Start: 01-01-2018 End: 01-01-2018 Office outpatient visit 15 minutes Steff Jenkinsnorris [facility] Start: 08-06-2017 End: 08-06-2017 Ambulatory [facility] Start: 10-30-2015 End: 10-30-2015 Office outpatient visit 40 minutes Steff Jenkinsnorris [facility] Start: 10-30-2015 End: 10-30-2015 Physical examination Roman Nichols CNP Work Phone: [facility] Start: 07-08-2011 End: 07-08-2011 Patient encounter procedure Steff Jenkinsnorris [facility] Start: 04-15-2009 End: 04-15-2009 Office outpatient visit 25 minutes Steff Alicenorris [facility] Start: 09-18-2008 End: 09-18-2008 Office outpatient visit 15 minutes Steff Jenkinsnorris [facility] Start: 08-12-2008 End: 08-12-2008 Patient encounter procedure Steff Alicenorris [facility] Start: 08-12-2008 End: 08-12-2008 Patient encounter status Roman Nichols CNP Work Phone: [facility] Start: 10-01-2007 End: 10-01-2007 Patient encounter procedure Steff Subramanian [facility] Start: 09-18-2007 End: 09-18-2007 Patient encounter procedure Steff Subramanian [facility] Start: 09-18-2007 End: 09-18-2007 Patient encounter status Roman Nichols 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 Work Phone: [facility] Physical examination Carlos Alberto Carrillo APPLICATION TESTER [facility]; [facility] Work Phone: Comment on above: scope 4-08 Physical examination Carlos Alberto Carrillo APPLICATION TESTER [facility]; [facility] Work Phone: Comment on above: scope 4-08 Physical examination Carlos Alberto Carrillo APPLICATION TESTER [facility]; [facility] Work Phone: Comment on above: scope 4-08 Physical examination Carlos Alberto Carrillo APPLICATION TESTER [facility]; [facility] Work Phone: Comment on above: scope 4-08 Physical examination Alexa Slarb APPLICATION TESTER [facility]; [facility] Work Phone: Comment on above: scope 4-08 Physical examination Kimberlyn Swain MA [facility]; [facility] Work Phone: Comment on above: scope 4-08 Physical examination Alexa Grewalrb APPLICATION TESTER [facility]; [facility] Work Phone: Comment on above: scope 4-08 Physical examination Kimberlyn Swain MA [facility]; [facility] Work Phone: Comment on above: scope 4-08 Physical examination Kimberlyn Swain MA [facility]; [facility] Work Phone: Comment on above: scope 4-08 Preprocedural examin ation done Carlos Alberto Carrillo APPLICATION TESTER [facility]; [facility] Work Phone: Preprocedural examin ation done Alexa Villatoro APPLICATION TESTER [facility]; [facility] Work Phone: Preprocedural examin ation done Kimberlyn Swain MA [facility]; [facility] Work Phone: Preprocedural examin ation done Roman Nichols [facility] Work Phone: [facility]; [facility] Work Phone: Comment on above: Physical exam and bl ood work are benign. Patient has no contraindications for proceeding with knee surgery at this time. He will be stopping anticoag 4 days prior to surgery. Please call with any questions or concerns. Preprocedural examin ation done Kimberlyn Swain MA [facility]; [facility] Work Phone: Comment on above: Physical exam and bl ood work are benign. Patient has no contraindications for proceeding with knee surgery at this time. He will be stopping anticoag 4 days prior to surgery. Please call with any questions or concerns. Preprocedural examin ation done Kimberlyn Brynn [facility]; [facility] Work Phone: Comment on above: Physical exam and bl ood work are benign. Patient has no contraindications for proceeding with knee surgery at this time. He will be stopping anticoag 4 days prior to surgery. Please call with any questions or concerns. Procedures Date Procedure Procedure Detail Performing Clinician Start: 12-04-2024 Prostate specific antigen measurement Roman Nichols MILITARY COOK-C Work Phone: Comment on above: This test was performed using the [employer] tPSA method. Measured values of a patient sample can vary depending on the testing procedure used. PSA values determined on patient samples by different testing procedures cannot be used interchangeably. If there is a change in PSA assays while monitoring therapy, sequential testing should be performed to confirm baseline values. Start: 09-06-2023 Ecg routine ecg w/least 12 lds w/i&r Danny Ramos MD Work Phone: Start: 06-12-2022 End: 06-12-2022 Venous Duplex US, Unilateral Procedure Note: See Note; NOTES: [facility] [address] [place] [address] Venous Duplex US, Unilateral 06/12/22 1151 MR#: [id number] Acct: [id number] Name: NIYA MCKEON YOLANDA Rep #: [id number] : 1955 67 From: Adair Doshi MD Attending Dr: Dr. Cleo Ruiz MD Status: RE G CLI Ordering Dr: Cleo Ruiz MD Date: 06/12/22 Location: US Sex: M C Admitted: Reason For Study: LEG SWELLING RIGHT LEFT GSV is normal. CFV is compressible, spontaneous, phasic, CFV is compressible, spontaneous, phasic, competent, and demonstrates normal competent and demonstrates normal augmentation. augmentation. FV is compressible, spontaneous, phasic, competent and demonstrates normal augmentation. POP V is compressible, spontaneous, phasic, competent and demonstrates normal augmentation. T/P Trunk is compressible. PTV is compressible. RT PerV is compressible. RT SSV - Partially compressible with bright intraluminal echoes, consistent with chronic SVT. Procedure This is a venous duplex using B-mode, color flow and spectral Doppler. Exam performed in department. The exam was diagnostic. A preliminary report was called and/or faxed to ED Nurse Toby. VL/Venous Duplex US, Unilateral Interpretation Summary Deep veins of the right lower extremity are patent and compressible segmentally. There is no evidence of right lower extremity deep vein thrombosis. Valvular competence appears intact within the proximal deep venous system on the right . The right great saphenous vein appears patent and compressible segmentally. Chronic venous changes are noted in the right small saphenous vein, which is partially compressible and demonstrates bright intraluminal echogenicity. Ordering Physician: Cleo Ruiz Referring Physician: Cleo Ruiz Performed By: Chris Gonzalez, T 06/12/22 1542 Date Adair Doshi MD CC: MILITARY COOKKatja Nichols; Dr. Cleo Ruiz MD Date Dictated: 06/12/22 1151 Date Transcribed: 06/12/22 1542 Pharmacy Operations Coordinator: Liv Nichols CNP Work Phone: Start: 06-11-2022 End: 06-11-2022 Emergency Department Summary Procedure Note: See Note; NOTES: [facility] Medical Records Department [address] [place] [address] Emergency Department Summary 06/11/22 MR#: [id number] Acct: [id number] Name: NIYA MCKEON Rep #: [id number] : 1955 67 From: Cleo Ruiz MD PCP: ELAYNE CornellC Status:DEP ER Location: ED HPI History of Present Illness Chief Complaint: Lower Extremity Injury Detail of Chief Complaint: Right leg swelling Informant: patient Onset/Context/Timing Onset: Days Context: Gradual Onset Narrative Narrative: Patient present secondary to right leg swelling. He had a knee replacement on May 24 at [facility]. He has noted increased swelling in his calf with pain. Patient has a history of A. fib and is currently on Xarelto. He states he has been compliant in taking his blood thinner. He does note that he stopped using his compression sock about 2 weeks after the surgery. He was walking around at [facility] this afternoon when he had increased pain. He did take oxycodone and Tylenol prior to arrival. 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 Atrial enlargement, right Atrial fibrillation Daytime somnolence GERD (gastroesophageal reflux disease) Nonischemic cardiomyopathy Preoperative cardiovascular examination Snoring Thyroid disease Home Medications omeprazole 20 mg capsule,delayed release 20 mg PO DAILY 02/01/18 [History Last Taken 03/02/18] cholecalciferol (vitamin D3) 50 mcg (2,000 unit) tablet 50 mcg PO DAILY 07/30/21 [History Last Taken Unknown] flecainide 100 mg tablet 100 mg PO Q12H #180 tabs 09/09/21 [Rx Last Taken Unknown] losartan 25 mg tablet 25 mg PO DAILY #90 tabs 12/22/21 [Rx Last Taken Unknown] rivaroxaban 20 mg tablet (Xarelto) 20 mg PO DAILY #90 tabs 01/18/22 [Rx Last Taken Unknown] metoprolol succinate 25 mg tablet,extended release 24 hr 25 mg PO DAILY #90 tabs 03/07/22 [Rx Last Taken Unknown] levothyroxine 125 mcg capsule See Rx Instructions PO DAILY 03/16/22 [History Last Taken Unknown] Allergy/AdvReac Type Severity Reaction Status Date / Time atorvastatin AdvReac Severe elevated Verified 06/11/22 20:01 liver enzymes Family History Mother Hypertension Cancer lung and ovarian Father Cancer Prostate Surgical History H/O lateral meniscus repair of left knee ( 2004) History of cardioversion (03/02/18) History of left heart catheterization (02/02/18) Social History Smoking Status: Never smoker alcohol intake: never substance use type: does not use caffeine: Yes Type: coffee ROS ROS ED Constitutional Constitutional ED: Denies chills or fever(s) Eyes Eyes: Denies change in vision or discharge from eye(s) ENT ENT ED: Denies discharge from eye(s), rhinorrhea or sore throat Cardiovascular Cardiovascular: Denies chest pain or palpitations Respiratory/Chest Respiratory/Chest: Denies cough or dyspnea Gastrointestinal Gastrointestinal: Denies abdominal pain, nausea or vomiting Genitourinary Genitourinary ED: Denies dysuria Musculoskeletal Musculoskeletal: Reports extremity pain; Denies back pain Integumentary Denies Abrasions or rash Neurologic Neurologic: Denies headache(s) or weakness Psychiatric Psychiatric: Denies anxiety or depression Allergic/Immunologic Allergic/Immunologic ED: Denies lip swelling or urticaria EXAM Physical Exam Const Vital Signs: 06/11/22 20:01 Temperature 97.9 F Temperature Source Temporal Pulse Rate 71 Respiratory Rate 18 Blood Pressure 135/81 H Blood Pressure Mean 99 Pulse Ox 97 Oxygen Delivery Method Room Air Positive well nourished and well developed General Appearance ED: well developed HEENT Reports normocephalic and head/scalp atraumatic Eyes PERRL and EOMs intact bilaterally Neck supple Chest Wall inspection of chest normal and palpation of chest normal Resp normal respiratory effort and clear to auscultation bilaterally Cardio regular rate and regular rhythm GI normal to inspection, nondistended, normoactive bowel sounds Palpation: soft Extremity Extremity Narrative: Healing anterior right knee incision with no sign of acute infection. 3+ edema noted to the right calf with mild tenderness. No overlying skin change or sign of infection. Good distal pulses. Neuro oriented x3 and no sensory deficits noted Sensorium / Orientation: alert Psych mental status grossly normal Skin no rashes or lesions noted MDM MDM MDM Narrative Medical decision making narrative: Patient presents at 8 PM on a Monday evening I do not have ultrasound available for his study. He has been on his Xarelto. In light of this I will write an order for patient to return tomorrow for an ultrasound of his leg to ensure no evidence of DVT. We did discuss appropriate elevation of his leg and I recommended returning to use of his compression stocking. Return instructions are given. Discharge Plan Triage Chief Complaint: Lower Extremity Injury ED Provider: Cleo Ruiz Dx/Rx/DC Orders Clinical Impression: Edema of right lower extremity Instructions: ED Peripheral Edema, Unilateral Prescriptions: No Action levothyroxine 125 mcg capsule 125 mcg capsule See Patient Comments PO DAILY Label Comments: Takes 5 a week-he skips Tuesdays and cholecalciferol (vitamin D3) 50 mcg (2,000 unit) tablet 50 mcg PO DAILY omeprazole 20 MG capsule 20 mg PO DAILY flecainide 100 mg tablet 100 mg PO Q12H Qty: 180 3RF losartan 25 mg tablet 25 mg PO DAILY Qty: 90 3RF Xarelto 20 mg tablet 20 mg PO DAILY Qty: 90 3RF Rx Instructions: must administer with evening meal metoprolol succinate 25 mg tablet extended release 24 hr 25 mg PO DAILY Qty: 90 3RF Other Ambulatory Orders: Venous Duplex US, Unilateral (Stat) Facility: [facility] - Location: [facility] Ordered By: Dr. Cleo Ruiz Primary Care Provider: Roman Nichols Referrals: Roman Nichols, MILITARY COOK-C [Primary Care Provider] - 1 Week if not improving Disposition Disposition: Home, Self Care What to do if you have Problems For any increased pain, shortness of breath, bleeding, nausea or vomiting, chest pain, or any unexpected problems, contact your Primary Care Provider. Call [facility] ([phone]) or report to the closest Emergency Room. Call 911 if necessary. 06/11/222127 <Electronically signed by Cleo Ruiz MD> Cosigner Signature (if applicable): CC: HENRI Pereiraabeba Juarezam Signed Roman Nichols [facility] Work Phone: Start: 05-24-2022 Arthroplasty of right knee DR MIYA PARRA MD Start: 03-16-2022 End: 03-16-2022 Cardiology Visit Report Procedure Note: See Note; NOTES: [facility] [address] [place] [address] OFFICE VISIT Date of Service: 03/16/22 MR#: [id number] Acct: [id number] Name: NIYA MCKEON Rep #: [id number] : 1955 Provider: BRITTNEY Guillermo Age/Sex: 66/M Location: [facility] Status: Signed HPI HPI History of Present Illness Details: NIYA MCKEON, is a 66 M who presents to the office today for a cardiovascular out patient visit. He has a history of atrial fibrillation with RVR, nonischemic cardiomyopathy. He underwent successful cardioversion in 2017 and was placed on amiodarone and xarelto. Amiodarone was discontinued in 2019. In August of 2020, he had atrial fibrillation, he was placed on flecainide and xarelto and was scheduled for a cardioversion, however he converted on his own with flecainide. Pt notes that he had COVID 6 weeks ago. He did have a few palpitations at that time. He does not have any chest pain or SOB. He does not have any lightheadedness/dizziness. He does not have any bleeding issues. 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 He is in the process of being scheduled for surgery on his right knee. He recovered from his left knee replacement in of this year. Intake Vital Signs 03/11/21 08:43 07/30/21 14:56 03/16/22 10:26 03/16/22 10:31 Height 6 ft 1 in 6 ft 1 in 6 ft 1 in 6 ft 1 in Weight: 263 lb 4 oz 261 lb BMI 34.7 34.4 BP 116/78 129/78 H Blood Pressure Location Lt brachial Rt brachial Position Sitting Sitting Respiration 16 18 Pulse 52 L 94 Pulse Source Auscultation Monitor Pulse Oximetry (%) 95 Intake Visit Reasons: 6 M FU Gravure Press Operator Required: No Is patient in pain?: No Allergies atorvastatin Adverse Reaction (Severe, Verified 03/16/22 10:26) elevated liver enzymes Medications omeprazole 20 mg capsule,delayed release 20 mg PO DAILY 02/01/18 [History Confirmed 03/16/22] cholecalciferol (vitamin D3) 50 mcg (2,000 unit) tablet 50 mcg PO DAILY 07/30/21 [History Confirmed 03/16/22] flecainide 100 mg tablet 100 mg PO Q12H #180 tabs 09/09/21 [Rx Confirmed 03/16/22] losartan 25 mg tablet 25 mg PO DAILY #90 tabs 12/22/21 [Rx Confirmed 03/16/22] rivaroxaban 20 mg tablet (Xarelto) 20 mg PO DAILY #90 tabs 01/18/22 [Rx Confirmed 03/16/22] metoprolol succinate 25 mg tablet,extended release 24 hr 25 mg PO DAILY #90 tabs 03/07/22 [Rx Confirmed 03/16/22] levothyroxine 125 mcg capsule See Rx Instructions PO DAILY 03/16/22 [History Confirmed 03/16/22] PFSH Medical History 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 Atrial enlargement, right Atrial fibrillation Daytime somnolence GERD (gastroesophageal reflux disease) Nonischemic cardiomyopathy Preoperative cardiovascular examination Snoring Thyroid disease Surgical History H/O lateral meniscus repair of left knee ( 2004) History of cardioversion (03/02/18) History of left heart catheterization (02/02/18) Family History Mother Hypertension Cancer lung and ovarian Father Cancer Prostate Social History Smoking Status: Never smoker alcohol intake: never substance use type: does not use caffeine: Yes Type: coffee ROS Const Const: Negative for fatigue, weakness, frequent falls, excessive sweating, weight gain or weight loss Eyes Eyes: Negative for transient loss of vision, blurry vision or change in vision ENT ENT: Negative for dizziness or balance problems Cardio Chest Pain: No Palpitations: No Edema: None Muscle aches with walking: None Resp Respiratory: Negative for SOB with activity or SOB at rest GI GI: Negative vomiting or vomiting blood/hematemesis : Negative for hematuria Musc Musc: Negative for muscle aches/ myalgia, muscle weakness, joint pain or balance problems Skin Skin: Negative non-healing lesions or rash Neuro Neuro: Negative for dizziness, lightheadedness, orthostatic symptoms, frequent falls, weakness or blurry vision Melquiades Hematologic/Lymphatic: Negative for easy bleeding Endo Endo: Negative for fatigue or excessive sweating Psych Psych: Negative for anxiety or depression Allergy Allergy/Immunology: Negative for hives and Negative for rash Cardiology Exam Const Appearance: cooperative, healthy appearing, comfortable, no acute distress, well developed and well groomed Nutritional Appearance: overweight Orientation: alert and oriented x3 Head Head: normal to inspection, normocephalic and atraumatic Ears: hearing grossly normal bilaterally Nose: external nose normal Face and Sinus: face symmetric Eyes Eyelids: eyelids normal Conjunctivae: conjunctivae normal Pupils: PERRL and pupil size EOM: EOM intact bilaterally Neck Neck: normal visual inspection and full ROM Carotids: normal carotid upstroke; Negative bruit Chest Chest inspection: normal inspection of the chest, symmetric chest movement and normal respiratory effort Auscultation: Bilateral: Clear to Auscultation Cardio Palpation: normal PMI Rate: regular rate Rhythm: regular rhythm Heart sounds: S1 normal and S2 normal GI GI: normal to inspection, soft and bowel sounds present Neuro General: patient alert, patient awake, patient oriented x3 and moves all extremities Skin Skin: no rashes or lesions noted Extremities Pulses: Normal: Right Posterior Tibial Pulse, Left Posterior Tibial Pulse, Right Radial Pulse and Left Radial Pulse Lower Extremity Edema: None: Bilateral Psych Psychological: normal affect Supplemental Info Supplemental Information Echocardiogram from 03/17/2020: Interpretation Summary The estimated ejection fraction is 60 %. No evidence for diastolic dysfunction. Echocardiogram: 07-21-2021 Interpretation Summary Left ventricular systolic function is normal. The estimated ejection fraction is 55 %. Mild (1+) mitral valve insufficiency. Trivial tricuspid valve insufficiency. Trivial pulmonic valve insufficiency. Unable to estimate RV systolic pressure due to insufficient tricuspid regurgitant envelope. No evidence for diastolic dysfunction. Stress echocardiogram from 02/01/2018: Reason For Study: Chest Pain Stress Results [...] blood pressure response to exercise. No complications. Cardiac catheterization from 02/02/2018: PROCEDURE(S) PERFORMED [id number]-SOC/COR/LV CLINICAL PROFILE AND INDICATIONS Heart Failure: NYHA Class: 2, Heart Failure Type: Systolic, Newly Diagnosed: Yes Stress/Imaging Stress Echocardiogram: Yes Result: Positive Intermediate RiskStress Echocardiogram: Positive Intermediate Risk CAD Presentations: Unstable angina. Comorbidities/Risk Factors: Hypertension Dyslipidemia CONCLUSIONS Non obstructive coronary arteries Cardiomyopathy: Congestive RECOMMENDATIONS D/c plavix, start cozaar 25mg daily, restart xeralto on 02/05/18, start amio 200mg daily, DCCV in 3 weeks. DESCRIPTION OF PROCEDURE The patient arrived to the procedure lab. The risks and benefits of the procedure as well as a full description of our services here and current unavailability of surgical backup were fully explained to the patient and/or their significant other prior to the catheterization. The Timeout was completed, verifying the correct patient and procedure. The patient's procedural site was prepped and draped in the usual fashion. Local anesthetic was given subcutaneously to right groin region with Lidocaine 2%. Using a modified Seldinger technique, arterial access was obtained via the right femoral artery, a 4Fr sheath was inserted Left Coronary Artery selective angiography was performed in multiple views using a 4 Fr. JL5 catheter. Right Coronary Artery selective angiography was then performed in multiple views using a 4 Fr. 3DRC catheter. Left Ventriculography was performed in CAPELLAN projection using a 4 Fr. Pigtail catheter. LV to AO pullback pressures were then recorded.The arterial sheath was pulled and manual compression applied until hemostasis is achieved. CORONARY ANGIOGRAPHY DOMINANCE: Right Dominant LEFT HEART ASSESSMENT Left Ventricular Ejection Fraction: by LV Gram 40-45 % Global Hypokinesis - Moderate Depressed Left Ventricular systolic function LVEDP: 11 mmHg Normal Left Ventricular End Diastolic Pressure LEFT MAIN: Angiographically normal LEFT ANTERIOR DECENDING ARTERY: Mild luminal irregularities less than 30% CIRCUMFLEX ARTERY: Mild luminal irregularities less than 30% RIGHT CORONARY ARTERY: Mild luminal irregularities less than 30% Labs: LDL Cholesterol 85 mg/dL (0-130) HDL Cholesterol 39 mg/dL (40-) L Triglycerides 50 mg/dL (-199) VLDL Cholesterol 10 mg/dL (5-40) Diagnostics: Electrocardiogram Echocardiogram Chest X-Ray Pulmonary: No Data to Display Assessment and Plan Assessment and Plan (1) 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 Chino @ [facility] Plan: Reviewed heart catheterization from 2018. He does have less than 30% disease in his LAD. He will continue with aggressive medical management and risk factor modification. (2) Nonischemic cardiomyopathy: Status: Chronic Comment: EF 35% per echo 01/26/18 Plan: Reviewed echocardiogram from 2021. This is resolved. Patient does not have any symptoms of congestive heart failure. He will continue with his metoprolol and losartan. (3) Atrial fibrillation: Status: Chronic Qualifiers: Atrial fibrillation type: paroxysmal Qualified Code(s): I48.0 - Paroxysmal atrial fibrillation Comment: DCCV 03/02/2018; Plan: Patient has had minimal recurrence. He will continue with his flecainide, metoprolol and Xarelto. (4) Preoperative cardiovascular examination: Status: Acute Plan: From a cardiac standpoint feel that patient does not need any additional cardiac testing done prior to his surgery. Patient can proceed with surgery. It is okay for patient to hold his Xarelto 3 to 4 days prior to surgery and resume after. Orders: Orders 12 Lead EKG performed by BMS Today I48.91 - Unspecified atrial fibrillation Plan Details Additional Comments: The above was discussed with him and he was agreeable to this approach. Thank you for allowing me to participate in the care of your patient. Please don't hesitate to call if any issues arise. This note was generated using a voice recognition system and there may be incorrect words, spelling or punctuation that were not noted when reviewing the office note prior to saving. 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 transplanted heart: mcgrath heart Nonischemic cardiomyopathy I42.8 Atrial fibrillation I48.0 Atrial fibrillation type: paroxysmal Preoperative cardiovascular examination Z01.810 03/16/22 1258 <Electronically signed by Lisa Roy> Date Lisa Flor Signature: Date (if applicable) CC: HENRI Nichols CNP Work Phone: Start: 03-16-2022 End: 03-20-2022 12 Lead EKG performed by [facility] Procedure Note: See Note; NOTES: [address] [address] 12 Lead EKG performed by BMS 03/16/22 102 MR#: [id number] Acct: [id number] Name: NIYA MCKEON Rep #: [id number] : 1955 66 From: Lisa LUGO Attending Dr: BRITTNEY Bauer Status: DEP AMB Ordering Dr: Lisa Khalil Date: 01/28 Location: [facility] Sex: M C Admitted: [facility]/12 Lead EKG performed by BMS ECG Report Interpretation Si nus Bradycardia -First degree A-V block Electronically signed on 03/20/2022 at 18:48 by Karan Lugo Software Version 8610 03/20/221852 Date Lisa LUGO CC: MILITARY COOKKatja Subramanian Date Dictated: 03/16/221022 Date Transcribed: 03/16/221022 Pharmacy Operations Coordinator: FLIP Signed Roman Nichols COM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 Work Phone: Start: 07-30-2021 End: 07-30-2021 12 Lead EKG performed by BMS Comments: See Note; NOTES: [facility] [address] [place] [address] 12 Lead EKG performed by BMS 07/30/21 1453 MR#: [id number] Acct: [id number] Name: NIYA MCKEON Rep #: [id number] : 1955 66 From: Karan Lugo MD Attending Dr: Dr. Karan Lugo MD Status: DE P AMB Ordering Dr: Karan Lugo MD Date: 07/30/21 Location: [facility] Sex: M C Admitted: B[facility]/12 Lead EKG performed by [facility] ECG Report Interpretation Si nus Bradycardia Electronically signed on 07/30/2021 at 15:50 by Karan Lugo Software Version [id number] 07/30/21 1553 Date Karan Lugo MD CC: MILITARY COOK-C Steff Subramanian Date Dictated: 07/30/211452 Date Transcribed: 07/30/211452 Pharmacy Operations Coordinator: PM Signed Steff Subramanian COM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 Work Phone: Start: 07-30-2021 End: 07-30-2021 Cardiology Visit Report Comments: See Note; NOTES: [facility] [address] [place] [address] OFFICE VISIT Date of Service: 07/30/21 MR#: [id number] Acct: [id number] Name: NIYA MCKEON Rep #: [id number] : 1955 Provider: Dr. Karan khan MD Age/Sex: 66/M Location: [facility] Status: Signed HPI HPI History of Present Illness Details: This is a 66-year-old white male who presents today for outpatient cardiovascular follow-up of a history of CAD-none angiographically significant, nonischemic cardiomyopathy (improved LV systolic function/LVEF), and paroxysmal atrial fibrillation who has been previously followed by my colleagues Dr. Chino and Dr. Moss. He presents today for preoperative cardiovascular assessment for upcoming left total knee replacement surgery (tentatively scheduled for 08-31-2021). At the present time he denies any ongoing symptoms of chest discomfort suspicious for angina pectoris. There is been no overt episodes of obvious CHF or pulmonary edema. There has been no near syncope or syncope. He does not notice any ongoing palpitations or rapid heart rates. He did have an ECG in the office today. He was noted to be in sinus rhythm/sinus bradycardia with a ventricular rate in the upper 50s. He had no acute ECG changes. He had a transthoracic echocardiogram performed recently on 07-21-2021. At that time his overall left ventricular systolic function appeared to be preserved with an LVEF of 55% with no hemodynamically significant valvular heart disease. He has undergone previous noninvasive and invasive studies. Those studies are noted below. Intake Vital Signs 07/30/21 14:56 Height 6 ft 1 in Weight: 263 lb 4 oz BMI 34.7 BP 116/78 Blood Pressure Location Lt brachial Position Sitting Respiration 16 Pulse 52 L Pulse Source Auscultation Intake Visit Reasons: CLEARANCE LTK (ECHO 07-21-21) Gravure Press Operator Required: No Accompanied by: Self Allergies atorvastatin Adverse Reaction (Severe, Verified 07/30/21 14:56) elevated liver enzymes Medications omeprazole 20 mg PO DAILY 02/01/18 [History Confirmed 07/30/21] flecainide 100 mg tablet 100 mg PO Q12H #180 tablet 10/27/20 [Rx Confirmed 07/30/21] losartan 25 mg tablet 25 mg PO DAILY #90 tab 12/28/20 [Rx Confirmed 07/30/21] rivaroxaban 20 mg tablet 20 mg PO DAILY #180 tab 02/01/21 [Rx Confirmed 07/30/21] metoprolol succinate 25 mg tablet,extended release 24 hr 25 mg PO DAILY #90 tab 03/19/21 [Rx Confirmed 07/30/21] cholecalciferol (vitamin D3) 50 mcg (2,000 unit) tablet 50 mcg PO DAILY 07/30/21 [History Confirmed 07/30/21] levothyroxine 125 mcg capsule See Rx Instructions PO DAILY cap 07/30/21 [History Confirmed 07/30/21] PFS Medical History (Updated 07/30/21 @ 15:[address] 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 Atrial enlargement, right Atrial fibrillation Daytime somnolence GERD (gastroesophageal reflux disease) Nonischemic cardiomyopathy Preoperative cardiovascular examination Snoring Thyroid disease Surgical History H/O lateral meniscus repair of left knee ( 2004) History of cardioversion (03/02/18) History of left heart catheterization (02/02/18) Family History Mother Hypertension Cancer lung and ovarian Father Cancer Prostate Social History Smoking Status: Never smoker alcohol intake: never substance use type: does not use caffeine: Yes Type: coffee ROS Const Const: Negative for fatigue, weakness, frequent falls, excessive sweating, weight gain or weight loss Eyes Eyes: Negative for transient loss of vision, blurry vision or change in vision ENT ENT: Negative for dizziness or balance problems Cardio Chest Pain: No Palpitations: No Edema: None Muscle aches with walking: None Resp Respiratory: Negative for SOB with activity or SOB at rest GI GI: Negative vomiting or vomiting blood/hematemesis : Negative for hematuria Musc Musc: Negative for muscle aches/ myalgia, muscle weakness, joint pain or balance problems Skin Skin: Negative non-healing lesions or rash Neuro Neuro: Negative for dizziness, lightheadedness, orthostatic symptoms, frequent falls, weakness or blurry vision Melquiades Hematologic/Lymphatic: Negative for easy bleeding Endo Endo: Negative for fatigue or excessive sweating Psych Psych: Negative for anxiety or depression Allergy Allergy/Immunology: Negative for hives and Negative for rash Cardiology Exam Const Appearance: cooperative, healthy appearing, comfortable, no acute distress, well developed and well groomed Nutritional Appearance: overweight Orientation: alert and oriented x3 Head Head: normal to inspection, normocephalic and atraumatic Ears: hearing grossly normal bilaterally Nose: external nose normal Face and Sinus: face symmetric Eyes Eyelids: eyelids normal Conjunctivae: conjunctivae normal Pupils: PERRL and pupil size EOM: EOM intact bilaterally Neck Neck: normal visual inspection and full ROM Carotids: normal carotid upstroke; Negative bruit Chest Chest inspection: normal inspection of the chest, symmetric chest movement and normal respiratory effort Auscultation: Bilateral: Clear to Auscultation Cardio Palpation: normal PMI Rate: regular rate Rhythm: regular rhythm Heart sounds: S1 normal and S2 normal GI GI: normal to inspection, soft and bowel sounds present Neuro General: patient alert, patient awake, patient oriented x3 and moves all extremities Skin Skin: no rashes or lesions noted Extremities Pulses: Normal: Right Posterior Tibial Pulse, Left Posterior Tibial Pulse, Right Radial Pulse and Left Radial Pulse Lower Extremity Edema: None: Bilateral Psych Psychological: normal affect Supplemental Info Supplemental Information Echocardiogram from 03/17/2020: Interpretation Summary The estimated ejection fraction is 60 %. No evidence for diastolic dysfunction. Echocardiogram: 07-21-2021 Interpretation Summary Left ventricular systolic function is normal. The estimated ejection fraction is 55 %. Mild (1+) mitral valve insufficiency. Trivial tricuspid valve insufficiency. Trivial pulmonic valve insufficiency. Unable to estimate RV systolic pressure due to insufficient tricuspid regurgitant envelope. No evidence for diastolic dysfunction. Stress echocardiogram from 02/01/2018: Reason For Study: Chest Pain Stress Results [...] blood pressure response to exercise. No complications. Cardiac catheterization from 02/02/2018: PROCEDURE(S) PERFORMED LN58-LFU/COR/LV CLINICAL PROFILE AND INDICATIONS Heart Failure: NYHA Class: 2, Heart Failure Type: Systolic, Newly Diagnosed: Yes Stress/Imaging Stress Echocardiogram: Yes Result: Positive Intermediate RiskStress Echocardiogram: Positive Intermediate Risk CAD Presentations: Unstable angina. Comorbidities/Risk Factors: Hypertension Dyslipidemia CONCLUSIONS Non obstructive coronary arteries Cardiomyopathy: Congestive RECOMMENDATIONS D/c plavix, start cozaar 25mg daily, restart xeralto on 02/05/18, start amio 200mg daily, DCCV in 3 weeks. DESCRIPTION OF PROCEDURE The patient arrived to the procedure lab. The risks and benefits of the procedure as well as a full description of our services here and current unavailability of surgical backup were fully explained to the patient and/or their significant other prior to the catheterization. The Timeout was completed, verifying the correct patient and procedure. The patient's procedural site was prepped and draped in the usual fashion. Local anesthetic was given subcutaneously to right groin region with Lidocaine 2%. Using a modified Seldinger technique, arterial access was obtained via the right femoral artery, a 4Fr sheath was inserted Left Coronary Artery selective angiography was performed in multiple views using a 4 Fr. JL5 catheter. Right Coronary Artery selective angiography was then performed in multiple views using a 4 Fr. 3DRC catheter. Left Ventriculography was performed in CAPELLAN projection using a 4 Fr. Pigtail catheter. LV to AO pullback pressures were then recorded.The arterial sheath was pulled and manual compression applied until hemostasis is achieved. CORONARY ANGIOGRAPHY DOMINANCE: Right Dominant LEFT HEART ASSESSMENT Left Ventricular Ejection Fraction: by LV Gram 40-45 % Global Hypokinesis - Moderate Depressed Left Ventricular systolic function LVEDP: 11 mmHg Normal Left Ventricular End Diastolic Pressure LEFT MAIN: Angiographically normal LEFT ANTERIOR DECENDING ARTERY: Mild luminal irregularities less than 30% CIRCUMFLEX ARTERY: Mild luminal irregularities less than 30% RIGHT CORONARY ARTERY: Mild luminal irregularities less than 30% Labs: LDL Cholesterol 85 mg/dL (0-130) HDL Cholesterol 39 mg/dL (40-) L Triglycerides 50 mg/dL (-199) VLDL Cholesterol 10 mg/dL (5-40) Diagnostics: Electrocardiogram Echocardiogram Stress Echocardiogram Cardiac Catheterization Chest X-Ray Pulmonary: Pulmonary Function Test Assessment and Plan Assessment and Plan (1) 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 Chino @ [facility] Orders: Orders: 12 Lead EKG performed by [facility] Today Plan - Dr. Karan Lugo MD: At the present time he appears to be doing well with no acute symptoms or adverse events. He will continue medical management. Was not felt he required further cardiac diagnostic studies/intervention at this time. (2) Nonischemic cardiomyopathy: Status: Chronic Comment: EF 35% per echo 01/26/18 Plan - Dr. Karan Lugo MD: He has been reported as having diminished LV systolic function/LVEF in the past. Based upon his most recent transthoracic echocardiogram this appears to improved. He will continue his current medical therapy. (3) Atrial fibrillation: Status: Chronic Qualifiers: Atrial fibrillation type: paroxysmal Qualified Code(s): I48.0 - Paroxysmal atrial fibrillation Comment: [facility] 03/02/2018; Orders: Orders: 12 Lead EKG performed by [facility] Today Plan - Dr. Karan Lugo MD: He has a history of PAF. At the moment he is remaining in sinus rhythm. He will continue his current rate control therapy, antiarrhythmic therapy, and anticoagulant therapy. (4) Preoperative cardiovascular examination: Status: Acute Plan - Dr. Karan Lugo MD: The patient will continue medical management. Again it does not appear he requires additional cardiac diagnostic testing at this time prior to his upcoming noncardiac surgical procedure. He should have close monitoring of his cardiac rate, rhythm, and blood pressure during and following his surgical procedure. An attempt should be made to avoid significant fluctuations in his vital signs and his volume status during and following his surgical procedure. He may interrupt his anticoagulant therapy approximately 4 days prior to his procedure. He should resume it as soon as possible following his procedure. If he cannot resume it as soon as possible following his procedure that he should be placed on medical management with aspirin 325 mg p.o. daily until he is able to resume his anticoagulant therapy. He is aware that his atrial dysrhythmia/fibrillation could return during or following his surgical procedure. If that occurs then he will need evaluation care as deemed appropriate at that time. Plan Details Other Orders: Orders: 12 Lead EKG performed by B[facility] Today Z98.890 Additional Comments: The above was discussed with him and he was agreeable to this approach. Thank you for allowing me to participate in the care of your patient. Please don't hesitate to call if any issues arise. This note was generated using a voice recognition system and there may be incorrect words, spelling or punctuation that were not noted when reviewing the office note prior to saving. Follow Up: 6 Months (PFM ) COVID (Procedure Consent) Procedure Criteria Procedure Criteria: Yes Elective The surgeon/proceduralist and patient have discussed in detail the risk of exposure to and/or potential harm posed by the COVID-19 virus with having a surgery/procedure at this time versus the risk of??? delaying the surgery/procedure. It is not possible to know either the risk of delaying the surgery or procedure or chance of getting an infection with perfect accuracy, but a joint decision was made between the patient and the surgeon/proceduralist ???to proceed at this time with the scheduled surgery/procedure as indicated on the consent form. 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 transplanted heart: mcgrath heart Nonischemic cardiomyopathy I42.8 Atrial fibrillation I48.0 Atrial fibrillation type: paroxysmal Preoperative cardiovascular examination Z01.810 07/30/21 1541 <Electronically signed by Karan Lugo MD> Date Karan Lugo MD Cosigner Signature: Date (if applicable) CC: MILITARY COOKKatja Subramanian; MD Steff Madrigal [facility] Work Phone: Start: 07-21-2021 End: 07-21-2021 Echo Complete Comments: See Note; NOTES: [facility] [address] [place] [address] Echo Complete 07/21/21 1254 MR#: [id number] Acct: [id number] Name: NIYA MCKEON Rep #: [id number] : 1955 66 From: Karan Lugo MD Attending Dr: Dr. Karan Lugo MD Status: [facility] Ordering Dr: Karan Lugo MD Date: 07/21/21 Location: [facility] Sex: M C Admitted: Reason For Study: Preop Procedure This was a 2D Doppler, Color Flow transthoracic echocardiogram. The exam was of adequate technical quality. Exam performed in department. Left Ventricle Normal LV size. Left ventricular systolic function is normal. The estimated ejection fraction is 55 %. No evidence for diastolic dysfunction. No regional wall motion abnormalities noted. Right Ventricle Normal RV size. Normal systolic function. Atria Normal left atrium. Normal right atrium. No doppler evidence for ASD. Mitral Valve There is no mitral annular calcification. Normal mitral valve. Mild (1+) mitral valve insufficiency. Tricuspid Valve Normal tricuspid valve. Trivial tricuspid valve insufficiency. Unable to estimate RV systolic pressure due to insufficient tricuspid regurgitant envelope. Aortic Valve Trisinus/trileaflet aortic valve. Normal aortic valve. Pulmonic Valve The pulmonic valve is not well visualized. Trivial pulmonic valve insufficiency. Great Vessels Normal sized aortic root. Pericardium/Pleural No pericardial effusion. MMode/2D Measurements Calculations LVIDd: 4.8 cm IVSd: 0.97 cm Ao root diam: 3.5 cm LVIDs: 3.2 cm LVPWd: 1.0 cm RVDd: 4.9 cm FS: 33.0 % LAV(MOD-bp): 48.7 ml LVAd ap4: 37.4 cm2 SV(MOD-sp4): 65.5 ml LAV(MOD-bp) Indexed: 20.4 ml/m2 LVLd ap4: 9.4 cm LAV(MOD-sp2): 47.5 ml EDV(MOD-sp4): 120.4 ml LAV(MOD-sp4): 48.1 ml EDV(sp4-el): 126.5 ml LVAs ap4: 22.4 cm2 LVLs ap4: 7.8 cm ESV(MOD-sp4): 54.9 ml ESV(sp4-el): 54.9 ml EF(MOD-sp4): 54.4 % EF(sp4-el): 56.6 % SV(sp4-el): 71.6 ml LA A4 area: 18.4 cm2 LA dimension(2D): 5.0 cm RA A4 area: 12.2 cm2 Doppler Measurements Calculations MV E max west: 51.7 cm/sec Lat Peak E' West: 13.6 cm/sec Med Peak E' West: 5.7 cm/sec MV A max west: 72.5 cm/sec E/E' lat: 3.8 E/E' med: 9.1 MV E/A: 0.71 Ao V2 max: 130.0 cm/sec LV V1 max: 101.2 cm/sec PA V2 max: 100.2 cm/sec Ao max P.8 mmHg LV V1 max P.1 mmHg Ao V2 mean: 85.6 cm/sec Ao mean P.3 mmHg Ao V2 VTI: 26.4 cm PI end-d west: 105.0 cm/sec ECHO/Echo Complete Interpretation Summary Left ventricular systolic function is normal. The estimated ejection fraction is 55 %. Mild (1+) mitral valve insufficiency. Trivial tricuspid valve insufficiency. Trivial pulmonic valve insufficiency. Unable to estimate RV systolic pressure due to insufficient tricuspid regurgitant envelope. No evidence for diastolic dysfunction. _ Ordering Physician: Karan Lugo Referring Physician: Steff Subramanian Performed By: Conchis Angela, RDCS, RVT 07/21/21 1456 Date Karan Lugo MD CC: MILITARY COOK-C Steff Subramanian; Dr. Karan Lugo MD Date Dictated: 07/21/21 1254 Date Transcribed: 07/21/211455 Pharmacy Operations Coordinator: Signed Steff Subramanian CNP Work Phone: Start: 06-11-2021 End: 06-12-2021 Knee 4 or More Views Comments: See Note; NOTES: [facility] [address] [place] [address] Knee 4 or More Views MR#: [id number] Acct: [id number] Name: NIYA MCKEON Rep #: [id number] : 1955 M 66 From: Yamileth cisneros MD PCP: HENRI Araya Status: DEP AMB Study: Knee 4 or More Views Date of Exam: 06/11/21 Exam# [id number] Ordering Dr: Steff Subramanian NP HISTORY: PAIN. TECHNIQUE: XR Knee Complete 4 Views or More. # of images incl. paperwork: 4. COMPARISON: None. FINDINGS: BONES: No acute fracture identified. Mineralization unremarkable. JOINTS: No dislocation. Degenerative changes with osteophytes and severe lateral compartment joint space narrowing. Mild joint effusion. RAD/Knee 4 or More Views IMPRESSION: No acute fracture or dislocation identified. Degenerative changes in the left knee. at 0946 Reported and signed by: Yamileth Lopez MD Electronically Signed: Yamileth Lopez MD at 9:44 EST Tel , Service support , CC: MILITARY COOK-C Steff Subramanian Pharmacy Operations Coordinator: Signed Steff Subramanian CNP Work Phone: Start: 03-11-2021 End: 03-11-2021 Cardiology Visit Report Comments: See Note; NOTES: [facility] [address] [place] [address] OFFICE VISIT Date of Service: 03/11/21 MR#: [id number] Acct: [id number] Name: NIYA MCKEON Rep #: [id number] : 1955 Provider: HENRI drake Age/Sex: 65/M Location: [facility] Status: Signed HPI HPI History of Present Illness Details: NIYA MCKEON, is a 65 M who presents to the office today for a cardiovascular out patient visit. He has a history of atrial fibrillation with RVR, nonischemic cardiomyopathy. He underwent successful cardioversion in 2017 and was placed on amiodarone and xarelto. Amiodarone was discontinued in 2019. He was last seen in August of this year with atrial fibrillation, he was placed on flecainide and xarelto and was scheduled for a cardioversion. In September of this year He converted to sinus rhythm with flecainide and did not undergo the cardioversion. From a cardiac standpoint, the patient is doing well. He denies any palpitations, chest pain, pressure or heaviness. He does not have any SOB, Orthopnea, and PND. He denies any bleeding issues; no blood in urine, stool or nosebleeds. He does not have any decrease in energy level, myalgias, or claudication. He does not have any edema, or sudden weight gain. He denies dizziness, lightheadedness, syncopal or near syncopal episodes, and headaches. He states he works out at [employer] on daily basis, and he has not felt any palpitations or atrial fibrillation. He states that the flecainide is working. Intake Vital Signs 03/11/21 08:43 Height 6 ft 1 in Weight: 262 lb BMI 34.5 BP 102/72 Blood Pressure Location Lt brachial Position Sitting Respiration 18 Pulse 56 L Pulse Oximetry (%) 95 Oxygen Delivery Method room air Intake Visit Reasons: 6 m fu Allergies atorvastatin Adverse Reaction (Severe, Verified 03/11/21 08:47) elevated liver enzymes Medications omeprazole 20 mg PO DAILY 02/01/18 [History Confirmed 03/11/21] hnvinfzqcew-gkm-vqbykixma-hr b 149-hyalur 500 mg-500 mg-66.7 mg tablet tab PO 02/16/18 [History Confirmed 03/11/21] metoprolol succinate 25 mg tablet,extended release 24 hr 25 mg PO DAILY #90 tab 08/03/20 [Rx Confirmed 03/11/21] flecainide 100 mg tablet 100 mg PO Q12H #180 tablet 10/27/20 [Rx Confirmed 03/11/21] losartan 25 mg tablet 25 mg PO DAILY #90 tab 12/28/20 [Rx Confirmed 03/11/21] rivaroxaban 20 mg tablet 20 mg PO DAILY #180 tab 02/01/21 [Rx Confirmed 03/11/21] levothyroxine 125 mcg capsule See Rx Instructions PO .COMPLEX cap 03/11/21 [History] PFS Medical History 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 Atrial enlargement, right Atrial fibrillation Daytime somnolence GERD (gastroesophageal reflux disease) Nonischemic cardiomyopathy Snoring Thyroid disease Surgical History H/O lateral meniscus repair of left knee ( 2004) History of cardioversion (03/02/18) History of left heart catheterization (02/02/18) Family History Mother Hypertension Cancer lung and ovarian Father Cancer Prostate Social History Smoking Status: Never smoker alcohol intake: never substance use type: does not use caffeine: Yes Type: coffee ROS Const Const: Negative for fatigue, weakness, fever(s), headache(s), chills, frequent falls, weight gain or weight loss Eyes Eyes: Negative for blind spots, loss of peripheral vision, transient loss of vision, blurry vision, change in vision, double vision, floaters or tunnel vision ENT ENT: Negative for headache(s), dizziness, Nosebleed/epistaxis, balance problems or neck pain Cardio Chest Pain: No Palpitations: No Edema: None Muscle aches with walking: None Resp Respiratory: Negative for SOB with activity, SOB at rest or SOB orthopnea SOB lying down GI GI: Negative nausea, vomiting, heartburn, bloating, vomiting blood/hematemesis, bright, red blood in stools or black,tarry stools Musc Musc: Negative for muscle aches/ myalgia, muscle weakness, joint pain or balance problems Neuro Neuro: Negative for dizziness, lightheadedness, near syncope, syncope, orthostatic symptoms, frequent falls, headache(s), weakness, blurry vision or double vision Melquiades Hematologic/Lymphatic: Negative for easy bleeding or easy bruising Endo Endo: Negative for fatigue Cardiology Exam Const Appearance: cooperative and no acute distress Orientation: alert and oriented x3 Head Head: normal to inspection Ears: hearing grossly normal bilaterally Nose: external nose normal Face and Sinus: face symmetric Eyes General: appearance normal, both eyes and all related structures Eyelids: eyelids normal Conjunctivae: conjunctivae normal Pupils: PERRL and pupil size EOM: EOM intact bilaterally Neck Neck: normal visual inspection Carotids: Negative bruit Chest Chest inspection: normal inspection of the chest and normal respiratory effort Auscultation: Bilateral: Clear to Auscultation Cardio Palpation: normal PMI Rate: regular rate Rhythm: regular rhythm Heart sounds: S1 normal and S2 normal; Negative rub, gallop or murmur GI GI: normal to inspection and soft; Negative no hepatosplenomegaly Neuro General: patient alert, patient oriented x3 and CN's II-XI intact bilaterally Skin Skin: no rashes or lesions noted Extremities Pulses: Normal: Right Posterior Tibial Pulse, Left Posterior Tibial Pulse, Right Radial Pulse and Left Radial Pulse Lower Extremity Edema: None: Bilateral Psych Psychological: normal affect Assessment and Plan Assessment and Plan (1) Atrial fibrillation: Status: Chronic Qualifiers: Atrial fibrillation type: paroxysmal Qualified Code(s): I48.0 - Paroxysmal atrial fibrillation Comment: [facility] 03/02/2018; Plan: Patient has a history of atrial fibrillation. He has had no recent symptoms or events. He appears to be in a regular rhythm on exam today. He will continue flecainide 100 mg p.o. every 12 hours, and Xarelto 20 mg p.o. daily. We will continue to monitor. (2) Nonischemic cardiomyopathy: Status: Chronic Comment: EF 35% per echo 01/26/18 Plan: Patient has a history of nonischemic cardiomyopathy. His most recent echocardiogram in 03/2020 demonstrated an ejection fraction of 60%. Patient denies any symptoms at this time. He will continue with his current medical therapy. We will continue to monitor. 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 Chino @ [facility] Plan: Patient has a history of atherosclerotic heart disease. He denies any recent symptoms or events. He will continue his losartan 25 mg p.o. daily, and metoprolol 25 mg p.o. daily. We will continue to monitor. Plan Details Additional Comments: Patient will follow up in 6 months, or sooner if needed. Thank you for allowing me to participate in the care of your patient. Please don't hesitate to call if any issues arise. This note was generated using a voice recognition system and there may be incorrect words, spelling, or punctuation that were not noted when reviewing the office note prior to saving. 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 transplanted heart: mcgrath heart Supplemental Info Supplemental Information Echocardiogram from 03/17/2020: Interpretation Summary The estimated ejection fraction is 60 %. No evidence for diastolic dysfunction. Stress echocardiogram from 02/01/2018: Reason For Study: Chest Pain Stress Results [...] blood pressure response to exercise. No complications. Cardiac catheterization from 02/02/2018: PROCEDURE(S) PERFORMED QF85-ADL/COR/LV CLINICAL PROFILE AND INDICATIONS Heart Failure: NYHA Class: 2, Heart Failure Type: Systolic, Newly Diagnosed: Yes Stress/Imaging Stress Echocardiogram: Yes Result: Positive Intermediate RiskStress Echocardiogram: Positive Intermediate Risk CAD Presentations: Unstable angina. Comorbidities/Risk Factors: Hypertension Dyslipidemia CONCLUSIONS Non obstructive coronary arteries Cardiomyopathy: Congestive RECOMMENDATIONS D/c plavix, start cozaar 25mg daily, restart xeralto on 02/05/18, start amio 200mg daily, DCCV in 3 weeks. DESCRIPTION OF PROCEDURE The patient arrived to the procedure lab. The risks and benefits of the procedure as well as a full description of our services here and current unavailability of surgical backup were fully explained to the patient and/or their significant other prior to the catheterization. The Timeout was completed, verifying the correct patient and procedure. The patient's procedural site was prepped and draped in the usual fashion. Local anesthetic was given subcutaneously to right groin region with Lidocaine 2%. Using a modified Seldinger technique, arterial access was obtained via the right femoral artery, a 4Fr sheath was inserted Left Coronary Artery selective angiography was performed in multiple views using a 4 Fr. JL5 catheter. Right Coronary Artery selective angiography was then performed in multiple views using a 4 Fr. 3DRC catheter. Left Ventriculography was performed in CAPELLAN projection using a 4 Fr. Pigtail catheter. LV to AO pullback pressures were then recorded.The arterial sheath was pulled and manual compression applied until hemostasis is achieved. CORONARY ANGIOGRAPHY DOMINANCE: Right Dominant LEFT HEART ASSESSMENT Left Ventricular Ejection Fraction: by LV Gram 40-45 % Global Hypokinesis - Moderate Depressed Left Ventricular systolic function LVEDP: 11 mmHg Normal Left Ventricular End Diastolic Pressure LEFT MAIN: Angiographically normal LEFT ANTERIOR DECENDING ARTERY: Mild luminal irregularities less than 30% CIRCUMFLEX ARTERY: Mild luminal irregularities less than 30% RIGHT CORONARY ARTERY: Mild luminal irregularities less than 30% Labs: LDL Cholesterol 85 mg/dL (0-130) HDL Cholesterol 39 mg/dL (40-) L Triglycerides 50 mg/dL (-199) VLDL Cholesterol 10 mg/dL (5-40) Diagnostics: Electrocardiogram Echocardiogram Chest X-Ray Pulmonary: No Data to Display 03/11/21 1012 <Electronically signed by Hodan HOLLYC> Date Hodan ÁLVAREZ 03/11/21 1615<Electronically signed by Karan Lugo MD> Cosigner Signature: Date (if applicable) Karan Lugo MD CC: MILITARY COOK-C Steff Subramanian [facility] Work Phone: Start: 09-08-2020 End: 09-09-2020 12 Lead EKG performed by [facility] Comments: See Note; NOTES: [place] [place] [address] 12 Lead EKG performed by [facility] 09/08/20 1256 MR#: [id number] Acct: [id number] Name: NIYA MCKEON Rep #: [id number] : 1955 65 From: Pete Angela NP MILITARY COOK-C Attending Dr: ELAYNE ManningC Status: DEP AMB Ordering Dr: Pete Angela NP MILITARY COOK-C Date: 09/08/20 Location: [facility] Sex: M C Admitted: [facility]/12 Lead EKG performed by [facility] ECG Report Interpretation Si nus Rhythm WITHIN NORMAL LIMITSElectronically signed on 09/09/2020 at 09:48 by George Mcwilliams Software Version [id number] 09/09/20 0956 Date Pete Angela MILITARY COOK MILITARY COOK-C CC: MILITARY COOK-C Steff Subramanian Date Dictated: 09/08/20 1256 Date Transcribed: 09/08/201255 Pharmacy Operations Coordinator: HUSSEIN Signed Steff Brookematthew Start: 08-26-2020 End: 08-26-2020 Chest PA and Lateral Comments: See Note; NOTES: [facility] Imaging Services [address] [place] [address] Chest PA and Lateral MR#: [id number] Acct: [id number] Name: NIYA MCKEON Rep #: [id number] : 1955 M 65 From: Carlitos freeman MD PCP: HENRI Araya Status: REG CLI Study: Chest PA and Lateral Date of Exam: 08/26/20 Exam# [id number] Ordering Dr: Pete Angela NP MILITARY COOK-C STUDY: X-RAY CHEST REASON FOR EXAM: Male, 65 years old. Pre op no current pain TECHNIQUE: PA and lateral views of the chest. COMPARISON: Comparison is made with prior study dated 02/08/2019. FINDINGS: Minimal increased linear markings at the lung bases suggestive of bibasilar scarring. No acute infiltrate is seen. There is no demonstrated pleural abnormality. Normal size heart. Normal mediastinum and christianne. Normal visualized pulmonary arteries. There is atherosclerotic tortuosity of the aortic arch and descending thoracic aorta. There are diffuse degenerative changes of the visualized thoracic spine. Normal visualized ribs, clavicles, and shoulders. There is no demonstrated abnormality of the visualized soft tissue structures of the upper abdomen. RAD/Chest PA and Lateral IMPRESSION: Mild degree of bibasilar linear scarring. Electronically Signed: Carlitos Clinton MD at 13:41 EST , Service support , CC: MILITARY COOK-Day Angela; HENRI Subramanian Pharmacy Operations Coordinator: Signed Steff Subramanian Start: 08-26-2020 End: 11-26-2020 12 Lead EKG performed by [facility] Comments: See Note; NOTES: [facility] [address] [place] [address] 12 Lead EKG performed by [facility] 08/26/20 1037 MR#: [id number] Acct: [id number] Name: NIYA MCKEON Rep #: [id number] : 1955 65 From: Pete Angela NP MILITARY COOK-C Attending Dr: HENRI Manning Status: DEP AMB Ordering Dr: Pete Angela NP MILITARY COOKKatja Date: 08/26/20 Location: [facility] Sex: M C Admitted: B[facility]/12 Lead EKG performed by [facility] ECG Report Interpretation At rial fibrillation - Nonspecific T-abnormality. ABNORMAL Electronically signed on 11/26/2020 at 11:00 by Pepe Moss Software Version [id number] 11/26/20 1103 Date Pete ÁLVAREZ CC: HENRI Artis Moris Date Dictated: 08/26/20 1037 Date Transcribed: 08/26/20 1037 Pharmacy Operations Coordinator: HUSSEIN Signed Steff Subramanian 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 Work Phone: Start: 08-26-2020 End: 08-26-2020 Cardiology Visit Report Comments: See Note; NOTES: [facility] [address] [place] [address]. [address] [place] [address] OFFICE VISIT Date of Service: 08/26/20 MR#: [id number] Acct: [id number] Name: NIYA MCKEON Rep #: [id number] : 1955 Provider: HENRI zepeda Age/Sex: 65/M Location: [facility] Status: Signed HPI HPI History of Present Illness Details: Details: Details: NIYA MCKEON, is a 64 M who presents to the office today for f/u of an irregular heartbeat. Apparently he visited the comprehensive internal medicine, on 01/04/18 for a cough and fever and was prescribed antibiotics and albuterol. The patient used albuterol for a few times, but noted significant anxiety but no palpitations. The patient then returned to the "now" clinic with complaints of an ear infection [...] therapy. He is now here in follow-up. 2020: 65-year-old male with past medical history of nonischemic cardiomyopathy, paroxysmal atrial fibrillation, former patient of Dr. Chino coming to see me for follow-up. He denies any significant cardiac complaints. When he was diagnosed with atrial fibrillation his EF was 35%. He underwent coronary angiography which did not reveal significant CAD. He underwent successful cardioversion and is on amiodarone and Xarelto. His repeat echo revealed normal EF. At the time of his initial diagnosis with atrial fibrillation patient had significant flulike illness and it was felt that that could have precipitated his A. fib. He has not had any evidence of recurrence since then. He was inquiring about stopping the amiodarone and changing any medications if possible. 08/26/2020: He states an increase in fatigue. He questions if this is related to general inactivity and weight gain on account of pandemic. He denies chest pain. He acknowledges SOB with activity. He acknowledges palpations. He denies lightheadedness, dizziness, pre-syncope, and syncope. He notes swelling in left leg since reoccurring atrial fibrillation. Intake Vital Signs 08/26/20 Pulse 103 H 08/26/20 Pulse Source Monitor 08/26/20 Height 6 ft 2 in 08/26/20 Weight: 262 lb 08/26/20 BMI 33.6 08/26/20 BP 102/62 08/26/20 Blood Pressure Location Lt brachial 08/26/20 Position Sitting 08/26/20 Respiration 18 08/26/20 Pulse 86 08/26/20 Pulse Source Monitor Intake Visit Reasons: F/U re: DCCV vs Amio Gravure Press Operator Required: No Accompanied by: None Is patient in pain?: No Allergies atorvastatin Adverse Reaction (Severe, Verified 08/26/20 10:43) elevated liver enzymes Medications Omeprazole [Prilosec] 20 mg PO DAILY 02/01/18 [History Confirmed 05/13/20] pxnronqhcoz-nqr-uszkncrdy-hr b 149-hyalur 500 mg-500 mg-66.7 mg tablet tab PO 02/16/18 [History Confirmed 05/13/20] levothyroxine 125 mcg capsule See Rx Instructions PO .COMPLEX cap 08/10/18 [History Confirmed 05/13/20] losartan 25 mg tablet 25 mg PO DAILY #90 tab 01/13/20 [Rx Confirmed 05/13/20] metoprolol succinate 25 mg tablet,extended release 24 hr 25 mg PO DAILY #90 tab 08/03/20 [Rx Confirmed 08/26/20] rivaroxaban 20 mg tablet 20 mg PO DAILY 08/03/20 [History Confirmed 08/03/20] amiodarone 200 mg tablet 200 mg PO DAILY #30 tab 08/26/20 [Rx Confirmed 08/26/20] [facility] Medical History (Updated 08/26/20 @ 12:47 by Pete Angela MILITARY COOK, MILITARY COOK-C) Snoring (Chronic) Daytime somnolence (Chronic) Nonischemic cardiomyopathy (Chronic) 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, right (Chronic) GERD (gastroesophageal reflux disease) (Chronic) Atrial fibrillation (Chronic) Thyroid disease (Chronic) Surgical History History of cardioversion (Chronic 03/02/18) History of left heart catheterization (Chronic 02/02/18) H/O lateral meniscus repair of left knee (Chronic 2004) Family History Mother Hypertension Cancer lung and ovarian Father Cancer Prostate Social History (Updated 08/26/20 @ 12:53 by Pete Angela MILITARY COOK, MILITARY COOK-C) Smoking Status: Never smoker alcohol intake: never substance use type: does not use caffeine: Yes Type: coffee ROS Const Const: Positive for fatigue; negative for weakness, body ache, fever(s) or chills ENT ENT: Negative for dizziness Cardio Chest Pain: No Palpitations: No Edema: Left Muscle aches with walking: None Resp Respiratory: Positive for SOB with activity; negative for SOB at rest, SOB orthopnea SOB lying down or paroxysmal nocturnal dyspnea GI GI: Negative nausea, vomiting blood/hematemesis, bright, red blood in stools or black,tarry stools : Negative for hematuria or frequent nighttime urination/ nocturia Musc Musc: Negative for muscle aches/ myalgia Skin Skin: Negative non-healing lesions or rash Neuro Neuro: Negative for dizziness, lightheadedness, near syncope, syncope, orthostatic symptoms or weakness Endo Endo: Positive for fatigue Allergy Allergy/Immunology: Negative for rash Cardiology Exam Const Appearance: cooperative, healthy appearing, comfortable and no acute distress Nutritional Appearance: well nourished and obese Orientation: alert, awake and oriented x3 Head Head: normal to inspection Ears: hearing grossly normal bilaterally Nose: external nose normal Face and Sinus: face symmetric Mouth: oral mucosae normal Eyes General: appearance normal, both eyes and all related structures Eyelids: eyelids normal EOM: EOM intact bilaterally Neck Neck: normal visual inspection and no JVD Carotids: normal carotid upstroke Chest Chest inspection: normal inspection of the chest, symmetric chest movement and normal respiratory effort; negative cough Auscultation: Bilateral: Clear to Auscultation Cardio Rate: tachycardic Rhythm: irregular rhythm Heart sounds: S1 normal and S2 normal; negative rub, gallop or murmur GI GI: normal to inspection and obese Neuro General: alert, awake, oriented x3 and CN's II-XI intact bilaterally Skin Skin: no rashes or lesions noted Extremities Pulses: Normal: Right Posterior Tibial Pulse, Left Posterior Tibial Pulse, Right Radial Pulse, Left Radial Pulse Lower Extremity Edema: None: Bilateral Psych Psychological: normal affect Assessment Plan 1. Atherosclerosis of mcgrath coronary artery of mcgrath heart without angina pectoris I25.10 Nonobstructive coronary arteries (<30% stenosis in LAD, CX, and RCA: left main normal) per [facility] 02/02/[address] Chino @ [facility] Plan He denies any chest, arm, jaw, or neck discomfort suggestive of angina. His shortness of breath and fatigue are thought to be related to his atrial fibrillation. He will continue current medical therapy which includes losartan and metoprolol. He is currently not on aspirin therapy, but is on Xarelto therapy. He does have allergy to statin medication with elevated liver enzyme. Orders Orders: Basic Metabolic Profile (BMP) Today Chest PA and Lateral Today 2. Nonischemic cardiomyopathy I42.8 EF 35% per echo 01/26/18 Plan His most recent echocardiogram on 03/17/2020 showed ejection fraction of 60%. He does acknowledge shortness of breath with activity. This is thought to be related to underlying atrial fibrillation. If his shortness of breath does not improve post rhythm control, further work-up will be recommended. He will continue with metoprolol and losartan therapy. 3. Paroxysmal atrial fibrillation I48.0 [facility] 03/02/2018; Plan Patient was noted be in atrial fibrillation on 08/03/2020. His metoprolol was increased and he was started on Xarelto therapy. Today, he remains in atrial fibrillation at a rate of 103 beats minute, QTC 417, QRS 94. Originally the plan was to resume previous treatment plan of amiodarone and repeat cardioversion. After office visit, his case was reviewed with Dr. Mcwilliams it was recommended to begin flecainide 100 mg p.o. twice daily and increase metoprolol to 50 mg p.o. daily. Patient was contacted via voicemail after office visit to discuss further. In respect to his rhythm, he will proceed with cardioversion plus antiarrhythmic. Hopefully, with rhythm control his symptoms improved. His heart catheterization 2017 showed minimal less than 30% disease. He does have underlying thyroid issues and previous elevated liver enzymes which complicate long-term amiodarone therapy at age of 65. We will await patient to contact our office to discuss further regards to flecainide therapy rather than amiodarone therapy. He will continue with factor Xa inhibitor/Xarelto for CVA protection. He states he started this on 08/03/2020. Orders Orders: Cardioversion Today Plan Detail Other Orders Orders: 12 Lead EKG performed by [facility] Today I48.91 Basic Metabolic Profile (BMP) Today I48.91, Z01.810 Chest PA and Lateral Today I48.91, Z01.810 Other Medications New: amiodarone 200 mg PO DAILY 30 tabs 12RF Additional Comments Thank you for allowing us to participate in the patients plan of care, if you have any questions please do not hesitate to call. This note was generated using a voice recognition system and there may be incorrect words, spelling or punctuation that were not noted when reviewing the office note prior to saving. Follow Up Keep as is Coding Level of Care Code Off vis,est,level 4 Diagnoses Atherosclerosis of mcgrath coronary artery of mcgrath heart without angina pectoris I25.10 ?[place]agle vs. transplanted heart: mcgrath heart Nonischemic cardiomyopathy I42.8 Paroxysmal atrial fibrillation I48.0 ?Atrial fibrillation type: paroxysmal Coding Level of Care Code Off vis,est,level 4 Diagnoses Atherosclerosis of mcgrath coronary artery of mcgrath heart without angina pectoris I25.10 ?[place] vs. transplanted heart: mcgrath heart Nonischemic cardiomyopathy I42.8 Paroxysmal atrial fibrillation I48.0 ?Atrial fibrillation type: paroxysmal Supplemental Info Supplemental Information Labs LDL Cholesterol 95 mg/dL (0-130) 09/24/19 HDL Cholesterol 40 mg/dL (40-) 09/24/19 Triglycerides 65 mg/dL (-199) 09/24/19 VLDL Cholesterol 13 mg/dL (5-40) 09/24/19 Diagnostics Electrocardiogram 08/26/20 Echocardiogram 03/17/20 Stress Echocardiogram 02/01/18 Cardiac Catheterization 02/02/18 Chest X-Ray 08/26/20 Pulmonary Pulmonary Function Test 08/21/18 08/26/20 1253 <Electronically signed by Pete Angela NP MILITARY COOK-C> Date Pete Angela MILITARY COOK MILITARY COOK-C Cosigner Signature: Date (if applicable) CC: MILITARY COOK-C Steff Subramanian Start: 08-03-2020 End: 08-19-2020 12 Lead EKG performed by [facility] Comments: See Note; NOTES: [address] [address] 12 Lead EKG performed by [facility] 08/03/20 1114 MR#: [id number] Acct: [id number] Name: NIYA MCKEON Rep #: [id number] : 1955 65 From: Pepe Moss MD Attending Dr: Dr. Pepe Moss MD Statu s: DEP AMB Ordering Dr: Pepe oMss MD Date: 1 Location: [facility] Sex: M C Admitted: [facility]/12 Lead EKG performed by [facility] Atrial fibrillation ABNORMAL RHYTHM 08/07/20 1059 <Electronically signed by Pepe Moss MD> Date Pepe Moss MD CC: HENRI Brookematthew Date Dictated: 08/03/201113 Date Transcribed: 08/03/201113 Pharmacy Operations Coordinator: BELA Signed Steff Brookematthew Start: 2020 End: 2020 Cardiology Visit Report Comments: See Note; NOTES: [facility] [address] [place] [address] OFFICE VISIT Date of Service: 05/13/20 MR#: [id number] Acct: [id number] Name: NIYA MCKEON Rep #: [id number] : 1955 Provider: Dr. Pepe byrne MD Age/Sex: 65/M Location: [facility] Status: Signed [facility] History of Present Illness Details: Chief Complaint: Routine f/u Details: Details: NIYA MCKEON, is a 64 M who presents to the office today for f/u of an irregular heartbeat. Apparently he visited the comprehensive internal medicine, on 01/04/18 for a cough and fever and was prescribed antibiotics and albuterol. The patient used albuterol for a few times, but noted significant anxiety but no palpitations. The patient then returned to the "now" clinic with complaints of an ear infection [...] therapy. He is now here in follow-up. 2020: 65-year-old male with past medical history of nonischemic cardiomyopathy, paroxysmal atrial fibrillation, former patient of Dr. Chino coming to see me for follow-up. He denies any significant cardiac complaints. When he was diagnosed with atrial fibrillation his EF was 35%. He underwent coronary angiography which did not reveal significant CAD. He underwent successful cardioversion and is on amiodarone and Xarelto. His repeat echo revealed normal EF. At the time of his initial diagnosis with atrial fibrillation patient had significant flulike illness and it was felt that that could have precipitated his A. fib. He has not had any evidence of recurrence since then. He was inquiring about stopping the amiodarone and changing any medications if possible. 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 Accompanied by: None Is patient in pain?: No Allergies atorvastatin Adverse Reaction (Severe, Verified 05/13/20 10:52) elevated liver enzymes Medications Omeprazole [Prilosec] 20 mg PO DAILY 02/01/18 [History Confirmed 05/13/20] ciwkzfefpmk-ubi-hwyewfstd-hr b 149-hyalur 500 mg-500 mg-66.7 mg tablet tab PO 02/16/18 [History Confirmed 05/13/20] levothyroxine 125 mcg capsule See Rx Instructions PO .COMPLEX cap 08/10/18 [History Confirmed 05/13/20] losartan 25 mg tablet 25 mg PO DAILY #90 tab 01/13/20 [Rx Confirmed 05/13/20] metoprolol succinate 25 mg tablet,extended release 24 hr 12.5 mg PO DAILY #45 tab 02/18/20 [Rx Confirmed 05/13/20] Ejection fraction %: 60 to 64 PFSH Medical History Snoring (Chronic) Daytime somnolence (Chronic) Nonischemic cardiomyopathy (Chronic) 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 Pepe Moss MD) Smoking Status: Never smoker alcohol intake: never substance use type: does not use caffeine: Yes Type: coffee ROS Const Const: Negative for fatigue, weakness, headache(s), frequent falls, difficulty sleeping or excessive sweating Eyes Eyes: Negative for loss of peripheral vision, transient loss of vision, blurry vision, double vision or tunnel vision ENT ENT: Negative for headache(s), dizziness, Nosebleed/epistaxis or balance problems Cardio Chest Pain: No Palpitations: No Edema: None Muscle aches with walking: None Resp Respiratory: Negative for SOB with activity, SOB at rest, SOB orthopnea SOB lying down, Cough or paroxysmal nocturnal dyspnea GI GI: Negative nausea, vomiting, heartburn or black,tarry stools : Negative for hematuria Musc Musc: Positive for joint pain; negative for muscle aches/ myalgia, muscle weakness or balance problems Skin Skin: Negative non-healing lesions, rash or unusual bruising Neuro Neuro: Negative for dizziness, lightheadedness, near syncope, syncope, frequent falls, headache(s), weakness, blurry vision, double vision or lack of coordination Melquiades Hematologic/Lymphatic: Negative for easy bleeding or easy bruising Endo Endo: Negative for fatigue, excessive sweating or increased thirst/drinking Psych Psych: Negative for anxiety or depression Allergy Allergy/Immunology: Negative for hives, Negative for rash Cardiology Exam Const Appearance: cooperative; negative acute distress Nutritional Appearance: well nourished Head Head: normocephalic and atraumatic Ears: hearing grossly normal bilaterally Nose: external nose normal Face and Sinus: face symmetric Mouth: moist mucous membranes Teeth and gingiva: fair dentition Eyes General: appearance normal, both eyes and all related structures Eyelids: eyelids normal Conjunctivae: conjunctivae normal Neck Neck: trachea midline and no JVD Chest Chest inspection: symmetric chest movement; negative pursed lip breathing Auscultation: Bilateral: Clear to Auscultation Cardio Rate: regular rate Rhythm: regular rhythm Heart sounds: S1 normal and S2 normal No Murmurs GI GI: normal to inspection Neuro General: alert, awake and oriented x3 Gait: Negative ataxic Skin Skin: no rashes or lesions noted; negative atrophy or jaundice Extremities Pulses: Normal: Right Posterior Tibial Pulse, Left Posterior Tibial Pulse Lower Extremity Edema: None: Bilateral Musculoskel Musculoskeletal: No joint tenderness Psych Psychological: normal affect Assessment Plan 1. Atrial fibrillation, unspecified type I48.91 Plan May have been in the setting of an underlying illness. Patient has preserved EF. No history of hypertension, diabetes or CVA. Advised him to start aspirin 81 mg p.o. daily and stop the Xarelto. We can also stop the amiodarone. If he has a recurrence then we can consider going back on amiodarone. He knows to check his pulse periodically to see if it is irregular. 2. Daytime somnolence R40.0 Plan Advised patient that he should consider a sleep study. 3. Nonischemic cardiomyopathy I42.8 EF 35% per echo 01/26/18 Plan Recent echo reveals preserved EF. His depressed EF could have been secondary to tachycardia induced cardiomyopathy. Plan Detail Other Medications Discontinued: rivaroxaban restart on 02/05/2018 Discontinued Reason: Order Changed 20 mg PO DAILY 90 tabs 3RF amiodarone Discontinued Reason: Order Completed 200 mg PO every other day; 45 tabs 3RF Follow Up 6 mths Coding Level of Care Code Off vis,est,level 4 Diagnoses Atrial fibrillation, unspecified type I48.91 ?Atrial fibrillation type: unspecified Daytime somnolence R40.0 Nonischemic cardiomyopathy I42.8 Coding Level of Care Code Off vis,est,level 4 Diagnoses Atrial fibrillation, unspecified type I48.91 ?Atrial fibrillation type: unspecified Daytime somnolence R40.0 Nonischemic cardiomyopathy I42.8 Supplemental Info Supplemental Information Labs LDL Cholesterol 95 mg/dL (0-130) 09/24/19 HDL Cholesterol 40 mg/dL (40-) 09/24/19 Triglycerides 65 mg/dL (-199) 09/24/19 VLDL Cholesterol 13 mg/dL (5-40) 09/24/19 Diagnostics Electrocardiogram 03/07/19 Echocardiogram 03/17/20 Stress Echocardiogram 02/01/18 Cardiac Catheterization 02/02/18 Chest X-Ray 02/08/19 Pulmonary Pulmonary Function Test 08/21/18 05/13/20 5388 <Electronically signed by Pepe Moss MD> Date [facility] Signature: Date (if applicable) CC: MILITARY COOK-C Steff Subramanian Start: 03-17-2020 End: 03-19-2020 Echo Complete Comments: See Note; NOTES: [facility] [address] [place] [address] Echo Complete 03/17/2059 MR#: [id number] Acct: [id number] Name: NIYA MCKEON Rep #: [id number] : 1955 64 From: Pepe Moss MD Attending Dr: Dr. Balwinder Chino MD Status: [facility] Ordering Dr: Balwinder Chino MD Date: 03/17/20 Location: [facility] Sex: M C Admitted: Reason For Study: CHF Procedure This was a 2D Doppler, Color Flow transthoracic echocardiogram. Exam performed in department. Left Ventricle Normal LV size. The estimated ejection fraction is 60 %. No evidence for diastolic dysfunction. No regional wall motion abnormalities noted. Right Ventricle Normal RV size. Normal systolic function. Atria Normal left atrium. Normal right atrium. No doppler evidence for ASD. Mitral Valve There is no mitral valve stenosis. No mitral valve insufficiency. Tricuspid Valve There is no tricuspid stenosis. Unable to estimate RV systolic pressure due to inadequate jet, pulmonary artery pressure probably normal. Aortic Valve Trisinus/trileaflet aortic valve. There is no aortic stenosis. No aortic valve insufficiency. Pulmonic Valve There is no pulmonic valvular stenosis. No pulmonic valve insufficiency. Great Vessels Normal aortic root. Pericardium/Pleural No pericardial effusion. MMode/2D Measurements Calculations LVIDd: 4.4 cm IVSd: 1.1 cm Ao root diam: 3.5 cm LVIDs: 3.2 cm LVPWd: 1.1 cm RVDd: 4.2 cm FS: 28.5 % LAV(MOD-bp): 50.2 ml LVAd ap4: 40.5 cm2 SV(MOD-sp4): 77.1 ml LAV(MOD-bp) Indexed: 21.0 ml/m2 EDV(MOD-sp4): 139.5 ml LAV(MOD-sp2): 50.2 ml EDV(sp4-el): 148.7 ml LAV(MOD-sp4): 50.4 ml LVAs ap4: 24.9 cm2 ESV(MOD-sp4): 62.4 ml ESV(sp4-el): 64.4 ml EF(MOD-sp4): 55.3 % EF(sp4-el): 56.7 % SV(sp4-el): 84.3 ml LA A4 area: 18.8 cm2 LA dimension(2D): 4.4 cm RA A4 area: 18.8 cm2 Time Measurements MV dec time: 0.33 sec Doppler Measurements Calculations MV E max west: 52.5 cm/sec Lat Peak E' West: 9.9 cm/sec Med Peak E' West: 6.8 cm/sec MV A max west: 65.0 cm/sec E/E' lat: 5.3 E/E' med: 7.7 MV E/A: 0.81 Ao V2 max: 115.1 cm/sec LV V1 max: 100.0 cm/sec PA V2 max: 87.0 cm/sec Ao max P.3 mmHg LV V1 max P.0 mmHg PI end-d west: 85.9 cm/sec Interpretation Summary The estimated ejection fraction is 60 %. No evidence for diastolic dysfunction. _ Ordering Physician: Balwinder Chino Referring Physician: STEFF SUBRAMANIAN Performed By: Megan Noguera RDCS 03/19/20 1156 Date Pepe Moss MD CC: MILITARY COOK-C Steff Subramanian; Dr. Balwinder Chino MD Date Dictated: 03/17/20 0859 Date Transcribed: 03/19/20 1156 Pharmacy Operations Coordinator: Signed Steff Subramanian Start: 09-19-2019 End: 09-19-2019 Cardiology Visit Report Comments: See Note; NOTES: [facility] [address] [place] [address] OFFICE VISIT Date of Service: 09/19/19 MR#: [id number] Acct: [id number] Name: NIYA MCKEON Rep #: [id number] : 1955 Provider: Balwinder Chino MD Age/Sex: 64/M Location: [facility] Status: Signed HPI HPI History of Present Illness Details: Chief Complaint: Routine f/u Details: Details: NIYA MCKEON, is a 64 M who presents to the office today for f/u of an irregular heartbeat. Apparently he visited the comprehensive internal medicine, on 01/04/18 for a cough and fever and was prescribed antibiotics and albuterol. The patient used albuterol for a few times, but noted significant anxiety but no palpitations. The patient then returned to the "now" clinic with complaints of an ear infection [...] DC cardioversion in several weeks time. Patient underwent successful DC cardioversion on 03/02/18 and is now here in follow-up. His Lipitor was decreased to 40 mg by Steff Phipps due to his elevated liver function test. Patient has completed cardiac rehab and is feeling great! He continues to exercise at [employer] 3 times per week without any difficulty. Repeat follow-up echocardiogram dated 08/23/2018 showed the following: Interpretation Summary The estimated ejection fraction is 55-60 %. Normal diastology for age. Mildly dilated right ventricle. The left atrium is mildly enlarged. Trivial mitral valve insufficiency. Unable to estimate RV systolic pressure due to inadequate jet, pulmonary artery pressure probably normal. Compared to echo report dated 01/26/2018, LV function has markedly improved from 35% to 60%. Pulmonary function test dated 08/21/2018 were normal. Recently his Lipitor was completely discontinued due to elevated LFTs, and his Toprol was cut to 12.5 mg p.o. daily for bradycardia. Patient has apparently been diagnosed with fatty liver by ultrasound recently. He denies any chest pain, angina, palpitations, or recurrence of his atrial fibrillation. I am unclear whether the patient can detect his atrial fibrillation overtly. In our office today's blood pressure is 90/60 with a pulse of 6 and regular.. His physical exam demonstrates clear lungs bilaterally, an irregularly irregular rhythm, normal S1/S2, no murmurs are detected. He has no edema. Lipids as of 02/01/18 show an LDL of 109 and HDL 35. Repeat lipid on 08/04/18 show an LDL of 42 and an HDL of 41. EKG previously demonstrates normal sinus rhythm, normal axis, QT corrected of 444 ms. EKG dated 03/07/2019 shows normal sinus rhythm/sinus bradycardia, PAC, QT corrected of 472 ms. His most recent AST was 39 and ALT was 75 as of 02/18/2019. Repeat lipids are pending. Intake Vital Signs09/19/19 Height 6 ft 2 in 09/19/19 Weight: 240 lb 09/19/19 BP 90/60 09/19/19 Blood Pressure Location Lt brachial 09/19/19 Position Sitting 09/19/19 Respiration 20 H 09/19/19 Pulse 60 09/19/19 Pulse Source Auscultation Intake Visit Reasons: 6 M FU [employer] Operator Required: No Is patient in pain?: No Allergies atorvastatin Adverse Reaction (Severe, Verified 09/19/19 09:51) elevated liver enzymes Medications Omeprazole [Prilosec] 20 mg PO DAILY 02/01/18 [History Confirmed 09/19/19] facghvaqyul-ztu-ujejkrhdo-hr b 149-hyalur 500 mg-500 mg-66.7 mg tablet tab PO 02/16/18 [History Confirmed 09/19/19] levothyroxine 125 mcg capsule See Rx Instructions PO .COMPLEX cap 08/10/18 [History Confirmed 09/19/19] losartan 25 mg tablet 25 mg PO DAILY #90 tab 02/07/19 [Rx Confirmed 09/19/19] rivaroxaban 20 mg tablet 20 mg PO DAILY #90 tab 03/04/19 [Rx Confirmed 09/19/19] metoprolol succinate 25 mg tablet,extended release 24 hr 12.5 mg PO DAILY tab 03/07/19 [History Confirmed 09/19/19] vitamin E (dl, acetate) 400 unit capsule 400 unit PO DAILY 03/07/19 [History Confirmed 09/19/19] amiodarone 200 mg tablet 200 mg PO .COMPLEX tab 09/19/19 [History] [facility] Medical History Snoring (Chronic) Daytime somnolence (Chronic) Nonischemic cardiomyopathy (Chronic) 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 Balwinder Chino MD) Smoking Status: Never smoker ROS Const Const: Positive for other (Feels well); negative for fatigue, weakness, body ache, fever(s), [...] Cardio Chest Pain: No Palpitations: No Edema: None Muscle aches with walking: None Resp Respiratory: Negative for SOB with activity, SOB at rest, SOB orthopnea\\SOB lying down, Cough, Coughing up blood/hemoptysis, chest congestion, pain on inspiration, snoring, stridor, wheezing, crackles, paroxysmal nocturnal dyspnea or other GI GI: Negative nausea, vomiting, heartburn, constipation, belching, bloating, cramping, vomiting blood/hematemesis, bright, red blood in stools, black,tarry stools, loose stools, Difficulty Swallowing or other : Negative for hematuria, frequent nighttime urination/ nocturia, erectile dysfunction or abnormal vaginal bleeding Musc Musc: Negative for muscle aches/ myalgia, muscle weakness, joint pain or balance problems Skin Skin: Negative redness, non-healing lesions, rash, unusual bruising, skin ulcer, wounds, jaundice or other Neuro Neuro: Negative for dizziness, lightheadedness, near syncope, syncope, orthostatic symptoms, frequent falls, headache(s), weakness, confusion, memory loss, restless legs, blurry vision, double vision, vertigo, seizures, lack of coordination or other Melquiades Hematologic/Lymphatic: Negative for easy bleeding, easy bruising, enlarged lymph nodes or other Endo Endo: Negative for fatigue, cold intolerance, heat intolerance, excessive sweating, flushing, increased thirst/drinking, increased hunger, hair loss, hair growth or other Psych Psych: Negative for anxiety, depression, thoughts of harming anyone, thoughts of harming yourself, visual hallucinations, panic attacks or audible hallucinations Allergy Allergy/Immunology: Negative for throat swelling, Negative for tongue swelling, Negative for hives, Negative for rash, Negative for lip swelling Cardiology Exam Const Appearance: cooperative, healthy appearing and no acute distress Nutritional Appearance: well nourished Orientation: alert, oriented x3 and oriented to person Head Head: normal to inspection, normocephalic and atraumatic Nose: external nose normal Face and Sinus: [...] Palpation: normal PMI Rate: regular rate Rhythm: regular rhythm Heart sounds: S1 normal and S2 normal GI GI: normal to inspection, no hepatosplenomegaly and bowel sounds present Neuro General: alert, awake, oriented x3, CN's II-XI intact bilaterally and moves all extremities Skin Skin: no rashes or lesions noted Extremities Pulses: Normal: Right Femoral Pulse, Left Femoral Pulse, Right Dorsalis Pedis Pulse, Left Dorsalis Pedis Pulse, Right Posterior Tibial Pulse, Left Posterior Tibial Pulse, Right Radial Pulse, Left Radial Pulse Lower Extremity Edema: None: Bilateral Psych Psychological: normal affect Assessment AND Plan 1. 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 Chino @ [facility] Plan 1. Coronary artery disease: Patient has no exertional anginal symptoms at this time. He has nonobstructive coronary disease by catheterization. Unfortunately we are unable to continue his statin due to elevated LFTs and fatty liver. His LV function has normalized with medical therapy and exercise. He continues to exercise at [facility] without any difficulty. Recommend he continue his losartan, metoprolol. Orders Orders: 2. Nonischemic cardiomyopathy I42.8 EF 35% per echo 01/26/18 Plan 2. Nonischemic cardiomyopathy: Patient is [place] heart classification 1 at this time and continues to exercise without any difficulty. He will continue his losartan and metoprolol, and we will repeat his echocardiogram in 6 months time to determine if his LV function has maintained its normal status. If it has, we will then discontinue his amiodarone and switch him to Multitak for ongoing asymptomatic atrial fibrillation. Orders Orders: 3. Atrial fibrillation I48.91 Plan 3. Atrial fibrillation: The patient appears to be in normal sinus rhythm at this time but is unable to detect when he goes in and out of atrial fibrillation. Recommend continuing amiodarone for now and we will repeat his echocardiogram in 6 months time to ensure that his LV function has remained normalized. If his LV function is normalized we will switch him to mild tach. He will continue beta-jose a therapy. 4. Return office in 6 months. This note was generated using a voice recognition system and there may be incorrect words, spelling or punctuation that were not noted when reviewing the office note prior to saving. 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 I25.10 Nonischemic cardiomyopathy I42.8 Atrial fibrillation I48.91 Supplemental Info Supplemental Information Labs LDL Cholesterol 42 mg/dL (0-130) 08/04/18 HDL Cholesterol 41 mg/dL (40-) 08/04/18 Triglycerides 50 mg/dL (-199) 08/04/18 VLDL Cholesterol 10 mg/dL (5-40) 08/04/18 Diagnostics Electrocardiogram 03/07/19 Echocardiogram 08/23/18 Stress Echocardiogram 02/01/18 Cardiac Catheterization 02/02/18 Chest X-Ray 02/08/19 Pulmonary Pulmonary Function Test 08/21/18 09/19/19 1016 <Electronically signed by Balwinder Chino MD> Date Balwinder Chino MD [facility] Signature: Date (if applicable) CC: MILITARY COOK-C Steff Subramanian Start: 03-23-2019 End: 03-23-2019 Wrist min 3 Views Comments: See Note; NOTES: [facility] Imaging Services [address] [place] [address] Wrist min 3 Views MR#: [id number] Acct: [id number] Name: NIYA MCKEON Rep #: [id number] : 1955 M 63 From: Francesco Barnett MD PCP: HENRI Araya Status: REG CLI Study: Wrist min 3 Views Date of Exam: 03/23/19 Exam# [id number] Ordering Dr: Breana Johnson STUDY: X-RAY - RIGHT WRIST REASON FOR EXAM: Male, 63 years old. Fall. Signs and symptoms not reported. TECHNIQUE: 3 view(s) of the wrist were obtained. COMPARISON: None. FINDINGS: Peripheral arterial calcifications in the radial artery distribution. Superficial soft tissue edema suggesting contusion overlying the distal ulna. Osseous structures of the hand and wrist appear intact, normally articulated, normally mineralized, with no visible acute fracture. RAD/Wrist min 3 Views IMPRESSION: Lateral distal forearm/wrist soft tissue swelling. No apparent osseous injury. Peripheral arterial calcifications. Electronically Signed: Francesco Barnett MD at 11:23 EDT Tel , Service support , CC: HENRI Subramanian; BRITTNEY Johnson Pharmacy Operations Coordinator: Signed Steff Subramanian Start: 03-07-2019 End: 03-07-2019 Cardiology Visit Report Comments: See Note; NOTES: [facility] [address] [place] [address] OFFICE VISIT Date of Service: 03/07/19 MR#: [id number] Acct: [id number] Name: NIYA MCKEON Rep #: [id number] : 1955 Provider: Balwinder Chino MD Age/Sex: 63/M Location: [facility] Status: Signed HPI HPI History of Present Illness Details: HPI Chief Complaint: Routine f/u Details: Details: NIYA MCKEON, is a 63 M who presents to the office today for f/u of an irregular heartbeat. Apparently he visited the comprehensive internal medicine, on 01/04/18 for a cough and fever and was prescribed antibiotics and albuterol. The patient used albuterol for a few times, but noted significant anxiety but no palpitations. The patient then returned to the "now" clinic with complaints of an ear infection [...] DC cardioversion in several weeks time. Patient underwent successful DC cardioversion on 03/02/18 and is now here in follow-up. His Lipitor was decreased to 40 mg by Steff Phipps due to his elevated liver function test. Patient has completed cardiac rehab and is feeling great! He continues to exercise at [employer] 3 times per week without any difficulty. Repeat follow-up echocardiogram dated 08/23/2018 showed the following: Interpretation Summary The estimated ejection fraction is 55-60 %. Normal diastology for age. Mildly dilated right ventricle. The left atrium is mildly enlarged. Trivial mitral valve insufficiency. Unable to estimate RV systolic pressure due to inadequate jet, pulmonary artery pressure probably normal. Compared to echo report dated 01/26/2018, LV function has markedly improved from 35% to 60%. Pulmonary function test dated 08/21/2018 were normal. Recently his Lipitor was completely discontinued due to elevated LFTs, and his Toprol was cut to 12.5 mg p.o. daily for bradycardia. Patient is apparently been diagnosed with fatty liver by ultrasound recently. He denies any chest pain, angina, palpitations, or recurrence of his atrial fibrillation. I am unclear whether the patient can detect his atrial fibrillation overtly. In our office today's blood pressure is 100/64 with a pulse of 48 and regular.. His physical exam demonstrates clear lungs bilaterally, an irregularly irregular rhythm, normal S1/S2, no murmurs are detected. He has no edema. Lipids as of 02/01/18 show an LDL of 109 and HDL 35. Repeat lipid on 08/04/18 show an LDL of 42 and an HDL of 41. EKG previously demonstrates normal sinus rhythm, normal axis, QT corrected of 444 ms. EKG dated 03/07/2019 shows normal sinus rhythm/sinus bradycardia, PAC, QT corrected of 472 ms. His most recent AST was 39 and ALT was 75 as of 02/18/2019. Intake Vital Signs03/07/19 Height 6 ft 1.5 in 03/07/19 Weight: 228 lb 03/07/19 Body Mass Index (BMI) 29.7 Intake Visit Reasons: 6 M [employer] Operator Required: No Is patient in pain?: No Allergies No Known Allergies Allergy (Verified 03/07/19 14:12) Medications Omeprazole [Prilosec] 20 mg PO DAILY 02/01/18 [History Confirmed 03/06/19] kirqxhfhqzg-san-fwckceqvt-hr b 149-hyalur 500 mg-500 mg-66.7 mg tablet tab PO 02/16/18 [History Confirmed 03/06/19] amiodarone 200 mg tablet 200 mg PO DAILY #90 tab 03/20/18 [Rx Confirmed 03/06/19] levothyroxine 125 mcg capsule See Rx Instructions PO .COMPLEX cap 08/10/18 [History Confirmed 03/06/19] losartan 25 mg tablet 25 mg PO DAILY #90 tab 02/07/19 [Rx Confirmed 03/06/19] rivaroxaban 20 mg tablet 20 mg PO DAILY #90 tab 03/04/19 [Rx Confirmed 03/06/19] metoprolol succinate ER 25 mg tablet,extended release 24 hr 12.5 mg PO DAILY tab 03/07/19 [History] vitamin E (dl, acetate) 400 unit capsule 400 unit PO DAILY 03/07/19 [History Confirmed 03/07/19] [facility] Medical History Snoring (Chronic) Daytime somnolence (Chronic) Nonischemic cardiomyopathy (Chronic) 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, right (Chronic) GERD (gastroesophageal reflux disease) (Chronic) Atrial fibrillation (Chronic) Surgical History History of cardioversion (Chronic 03/02/18) History of left heart catheterization (Chronic 02/02/18) H/O lateral meniscus repair of left knee (Chronic 2004) Family History Mother Hypertension Cancer lung and ovarian Father Cancer Prostate Social History (Updated 03/07/19 @ 14:36 by Balwinder Chino MD) Smoking Status: Never smoker ROS Const Const: Positive for other (LFT's are up, lipitor dc'd; HR 48,Toprol decreased by Steff Subramanian); negative for fatigue, weakness, body ache, fever(s), [...] Cardio Chest Pain: No Palpitations: No Edema: None Muscle aches with walking: None Resp Respiratory: Negative for SOB with activity, SOB at rest, SOB orthopnea\\SOB lying down, Cough, Coughing up blood/hemoptysis, chest congestion, pain on inspiration, snoring, stridor, wheezing, crackles, paroxysmal nocturnal dyspnea or other GI GI: Negative nausea, vomiting, heartburn, constipation, belching, bloating, cramping, vomiting blood/hematemesis, bright, red blood in stools, black,tarry stools, loose stools, Difficulty Swallowing or other : Negative for hematuria, frequent nighttime urination/ nocturia, erectile dysfunction or abnormal vaginal bleeding Musc Musc: Negative for muscle aches/ myalgia, muscle weakness, joint pain or balance problems Skin Skin: Negative redness, non-healing lesions, rash, unusual bruising, skin ulcer, wounds, jaundice or other Neuro Neuro: Negative for dizziness, lightheadedness, near syncope, syncope, orthostatic symptoms, frequent falls, headache(s), weakness, confusion, memory loss, restless legs, blurry vision, double vision, vertigo, seizures, lack of coordination or other Melquiades Hematologic/Lymphatic: Negative for easy bleeding, easy bruising, enlarged lymph nodes or other Endo Endo: Negative for fatigue, cold intolerance, heat intolerance, excessive sweating, flushing, increased thirst/drinking, increased hunger, hair loss, hair growth or other Psych Psych: Negative for anxiety, depression, thoughts of harming anyone, thoughts of harming yourself, visual hallucinations, panic attacks or audible hallucinations Allergy Allergy/Immunology: Negative for throat swelling, Negative for tongue swelling, Negative for hives, Negative for rash, Negative for lip swelling Cardiology Exam Const Appearance: cooperative, healthy appearing and no acute distress Nutritional Appearance: well nourished Orientation: alert, oriented x3 and oriented to person Head Head: normal to inspection, normocephalic and atraumatic Nose: external nose normal Face and Sinus: [...] Palpation: normal PMI Rate: regular rate Rhythm: regular rhythm Heart sounds: S1 normal and S2 normal GI GI: normal to inspection, no hepatosplenomegaly and bowel sounds present Neuro General: alert, awake, oriented x3, CN's II-XI intact bilaterally and moves all [...] Atrial fibrillation I48.91 Plan 1. Atrial fibrillation: The patient has remained in normal sinus rhythm to the best of our knowledge since his DC cardioversion in February 2018. However his liver function tests are mildly elevated necessitating discontinuation of his antilipid therapy. I recommended he decrease his amiodarone to 200 mg every other day as his LV function has normalized with a combination of cardioversion, and antihypertensive medications. I recommend he continue his metoprolol succinate at 12.5 mg a day and continue losartan therapy. In addition I recommend he continue his Xarelto in the event that his reduced dose of amiodarone causes him to go back to atrial fibrillation. If the patient's liver function tests continue to remain mildly elevated, he may require discontinuation of amiodarone. Orders Orders: 2. 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 Chino @ [facility] Plan 2. Coronary artery disease: The patient had minimal nonobstructive coronary artery disease. Unfortunately was unable to tolerate statins due to elevated liver enzymes. Continue exercise and dietary lifestyle changes. 3. Return office in 6 months. This note was generated using a voice recognition system and there may be incorrect words, spelling or punctuation that were not noted when reviewing the office note prior to saving. Orders Orders: Plan Detail Other Orders Orders: Other Medications New: Follow Up +6M (Matti) Coding Level of Care Code Off vis,est,level 3 Diagnoses Atrial fibrillation I48.91 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 I25.10 Coding Level of Care Code Off vis,est,level 3 Diagnoses Atrial fibrillation I48.91 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 I25.10 Supplemental Info Supplemental Information Labs LDL Cholesterol 42 mg/dL (0-130) 08/04/18 HDL Cholesterol 41 mg/dL (40-) 08/04/18 Triglycerides 50 mg/dL (-199) 08/04/18 VLDL Cholesterol 10 mg/dL (5-40) 08/04/18 Diagnostics Electrocardiogram 03/07/19 Echocardiogram 08/23/18 Stress Echocardiogram 02/01/18 Cardiac Catheterization 02/02/18 Chest X-Ray 02/08/19 Pulmonary Pulmonary Function Test 08/21/18 03/07/19 1436 <Electronically signed by Balwinder Chino MD> Date Balwinder Chino MD Cosign Signature: Date (if applicable) CC: Dayan Mehta Steff Subramanian Start: 03-07-2019 End: 03-08-2019 12 Lead EKG performed by [facility] Comments: See Note; NOTES: [address] [address] 12 Lead EKG performed by [facility] 03/07/19 1405 MR#: [id number] Acct: [id number] Name: NIYA MCKEON Rep #: [id number] : 1955 63 From: Balwinder Chino MD Attending Dr: Balwinder Chino MD Status: DEP AMB Ordering Dr: Balwinder Chino MD Date: 03/07/19 Location: [facility] Sex: M C Admitted: /12 Lead EKG performed by [facility] Marked sinus Bradycardia -With rate variation cv = 15.BORDERLINE RHYTHM 03/07/19 1446 <Electronically signed by Balwinder Chino MD> Date Balwinder Chino MD CC: Dayan Mehta DO Date Dictated: 03/07/191404 Date Transcribed: 03/07/191404 Pharmacy Operations Coordinator: DN Signed Steff Subramanian Start: 02-28-2019 End: 02-28-2019 Liver Comments: See Note; NOTES: [facility] Imaging Services [address] [place] [address] Liver MR#: [id number] Acct: [id number] Name: NIYA MCKEON Rep #: [id number] : 1955 M 63 From: René Cavanaugh MD PCP: HENRI Araya Status: REG CLI Study: Liver Date of Exam: 02/28/19 Exam# [id number] Ordering Dr: Steff Subramanian STUDY: ABDOMINAL ULTRASOUND - RIGHT UPPER QUADRANT REASON FOR VISIT: Male, 63 years old. Increased LFTs TECHNIQUE: Ultrasound evaluation of the right upper quadrant was performed with real-time and static maloney-scale imaging. TECHNICAL QUALITY: Adequate. COMPARISON: None. FINDINGS: Liver: The liver measures 15.9 cm. There is increased echogenicity consistent with fatty infiltration. The bile ducts are within normal limits. There is hepatic color flow. The direction of portal flow is hepatopetal. There is no demonstrated mass lesion. Gallbladder: Normal distended gallbladder. The gallbladder wall measures 2.8 mm. There is a negative sonographic Daniel's sign. There is no pericholecystic fluid. There are no gallstones. Common Bile Duct (C.B.D.): The common bile duct measures 4.1 mm. Pancreas: There is nonvisualization of the pancreas. Right Kidney: Normal size of the right kidney. The right kidney measures 11.7 x 6.4 x 6.4 cm. Normal renal cortex. The right cortex measures 2.2 cm. There is no demonstrated renal mass but with upper pole renal cyst measuring 2.6 x 1.8 x 1.8 cm. There is no right hydronephrosis. US/Liver IMPRESSION: Fatty change of liver. Suboptimal assessment of pancreas due to overlying bowel gas. Normal assessment of the gallbladder, with no cholelithiasis or acute cholecystitis. Benign-appearing right upper pole renal cyst. No evidence of right hydronephrosis. Electronically Signed: René Cavanaugh MD at 11:35 EDT Tel [phone], Service support , CC: HENRI Subramanian Pharmacy Operations Coordinator: Signed Steff Subramanian Work Phone: Start: 02-08-2019 End: 02-08-2019 Chest PA and Lateral Comments: See Note; NOTES: [facility] Imaging Services [address] [place] [address] Chest PA and Lateral MR#: [id number] Acct: [id number] Name: NIYA MCKEON Rep #: [id number] : 1955 M 63 From: Carlitos Clinton MD PCP: HENRI Araya Status: REG CLI Study: Chest PA and Lateral Date of Exam: 02/08/19 Exam# [id number] Ordering Dr: Steff Subramanian STUDY: X-RAY CHEST REASON FOR EXAM: Male, 63 years old. Illness. TECHNIQUE: PA and lateral views of the chest. COMPARISON: Comparison is made with prior examination dated January 31, 2018. FINDINGS: Patchy bibasilar infiltrates more prominent at the left lung base. Follow-up is recommended. There is no demonstrated pleural abnormality. Normal size heart. Normal mediastinum and christianne. Normal visualized pulmonary arteries. There is atherosclerotic tortuosity of the aortic arch and descending thoracic aorta. There are diffuse degenerative changes of the visualized thoracic spine. Normal visualized ribs, clavicles, and shoulders. There is no demonstrated abnormality of the visualized soft tissue structures of the upper abdomen. RAD/Chest PA and Lateral IMPRESSION: Patchy bibasilar infiltrates more prominent on the left side. Follow-up is recommended. Electronically Signed: Carlitos Clinton, at 10:07 EDT , Service support , CC: HENRI Subramanian Pharmacy Operations Coordinator: Signed Steff Subramanian Work Phone: Start: 08-23-2018 End: 08-23-2018 Echocardiogram Complete Comments: See Note; NOTES: [facility] Cardiovascular Services [address] [place] [address] Echo Complete 08/23/18 0730 MR#: [id number] Acct: [id number] Name: NIYA MCKEON Rep #: [id number] : 1955 63 From: Balwinder Chino MD Attending Dr: Balwinder Chino MD Status: [facility] Ordering Dr: Balwinder Chino MD Date: 08/23/18 Location: [facility] Sex: M C Admitted: Reason For Study: A. fib/flutter Procedure This was a 2D Doppler, Color Flow transthoracic echocardiogram. Exam performed in department. Left Ventricle Normal size and thickness. The estimated ejection fraction is 55-60 %. Normal diastology for age. No regional wall motion abnormalities noted. Right Ventricle Mildly dilated right ventricle. Normal systolic function. Atria The left atrium is mildly enlarged. Normal right atrium. Normal atrial septum. Mitral Valve The mitral valve is structurally normal. No prolapse or stenosis seen. Trivial mitral valve insufficiency. Tricuspid Valve Normal tricuspid valve. Unable to estimate RV systolic pressure due to inadequate jet, pulmonary artery pressure probably normal. Aortic Valve Normal aortic valve. Trisinus/trileaflet aortic valve. Pulmonic Valve Normal pulmonic valve. Great Vessels Normal aortic root. Normal arch. Normal inferior vena cava. Inferior vena cava collapse with sniff. Pericardium/Pleural No pericardial effusion. MMode/2D Measurements AND Calculations LVIDd: 4.7 cm IVSd: 0.91 cm Ao root diam: 3.6 cm LVIDs: 3.2 cm LVPWd: 1.1 cm RVDd: 4.0 cm FS: 31.7 % LAV(MOD-bp): 71.7 ml EDV(MOD-sp4): 138.3 ml EDV(MOD-sp2): 153.3 ml LAV(MOD-bp) Indexed: 30.4 ml/m2 ESV(MOD-sp4): 54.7 ml EF(MOD-sp2): 55.7 % LAV(MOD-sp2): 70.9 ml EF(MOD-sp4): 60.5 % LAV(MOD-sp4): 67.8 ml SV(MOD-sp4): 83.6 ml SV(MOD-sp2): 85.4 ml LA A4 area: 21.6 cm2 LA dimension(2D): 4.6 cm RA A4 area: 15.1 cm2 Doppler Measurements AND Calculations MV E max west: 52.3 cm/sec Lat Peak E' West: 9.6 cm/sec Med Peak E' West: 6.5 cm/sec MV A max west: 55.7 cm/sec E/E' lat: 5.5 E/E' med: 8.0 MV E/A: 0.94 Ao V2 max: 124.1 cm/sec LV V1 max: 91.8 cm/sec PA V2 max: 107.7 cm/sec Ao max P.2 mmHg LV V1 max P.4 mmHg Interpretation Summary The estimated ejection fraction is 55-60 %. Normal diastology for age. Mildly dilated right ventricle. The left atrium is mildly enlarged. Trivial mitral valve insufficiency. Unable to estimate RV systolic pressure due to inadequate jet, pulmonary artery pressure probably normal. Compared to echo report dated 01/26/2018, LV function has markedly improved from 35% to 60%. Ordering Physician: Balwinder Chino Referring Physician: Steff Subramanian Performed By: Latricia Colby RDCS 08/23/18 1259 Date Balwinder Chino MD CC: Steff Subramanian [employer]; Balwinder Chino MD Date Dictated: 08/23/18 0730 Date Transcribed: 08/23/18 1259 Pharmacy Operations Coordinator: Signed Steff Subramanian Start: 08-21-2018 End: 08-21-2018 Pulmonary Function Test Comments: See Note; NOTES: [facility] Pulmonary Services/Neurology [address] [place] [address] MR#: [id number] Acct: [id number] Name: NIYA MCKEON Rep #: [id number] : 1955 63 From: Rylan Chaves DO Referring Dr: Balwinder Chino MD [facility]: Date: Location: [facility] Sex: M C INTRODUCTION: The patient is a 63-year-old male that presents for pulmonary function studies secondary to a diagnosis of high risk medication use. Respiratory therapy reports good patient effort. Bronchodilators were used during testing. INTERPRETATION: Forced expiration spirometry demonstrates no evidence of a large airways obstructive ventilatory defect. There was no significant response to aerosolized bronchodilators, based upon strict ATS criteria. Spirograms are of good quality and do not plateau indicating slow emptying of the lungs. Body plethysmography was performed and reveals lung volumes are technically within normal limits. Diffusing capacity by single breath CO is within normal limits at 86% of predicted. IMPRESSION: Grossly normal pulmonary function studies. 08/21/18 1418 <Electronically signed by Rylan Chaves DO> Date Rylan Chaves DO CC: Steff Subramanian [employer]; Balwinder Chino MD Date Dictated: 08/21/181415 Date Transcribed: 08/21/181415 Pharmacy Operations Coordinator: DB Signed Steff Subramanian Start: 08-10-2018 End: 08-10-2018 Cardiology Visit Report Comments: See Note; NOTES: [facility] [address] [place] [address] OFFICE VISIT Date of Service: 08/10/18 MR#: [id number] Acct: [id number] Name: NIYA MCKEON Rep #: [id number] : 1955 Provider: Balwinder Chino MD Age/Sex: 63/M Location: [facility] Status: Signed HPI HPI Chief Complaint: Routine f/u Details: Details: NIYA MCKEON, is a 63 M who presents to the office today for f/u of an irregular heartbeat. Apparently he visited the comprehensive internal medicine, on 01/04/18 for a cough and fever and was prescribed antibiotics and albuterol. The patient used albuterol for a few times, but noted significant anxiety but no palpitations. The patient then returned to the "now" clinic with complaints of an ear infection [...] DC cardioversion in several weeks time. Patient underwent successful DC cardioversion on 03/02/18 and is now here in follow-up. His Lipitor was decreased to 40 mg by Steff Khan due to his elevated liver function test. Patient is completed cardiac rehab and is feeling great! He continues to exercise at [employer] 3 times per week without any difficulty. In our office today's blood pressure is 104/60 with a pulse of 55 and irregular. His physical exam demonstrates clear lungs bilaterally, an irregularly irregular rhythm, normal S1/S2, no murmurs are detected. He has no edema. Lipids as of 02/01/18 show an LDL of 109 and HDL 35. Repeat lipid on 08/04/18 show an LDL of 42 and an HDL of 41. EKG today demonstrates normal sinus rhythm, normal axis, QT corrected of 444 ms. Repeat echo is pending. Intake Vital Signs08/10/18 Height 6 ft 1.5 in 08/10/18 Weight: 253 lb 08/10/18 Body Mass Index (BMI) 32.9 08/10/18 Blood Pressure 104/60 Intake Visit Reasons: 6 M [employer] Required: No Is patient in pain?: No Allergies No Known Allergies Allergy (Verified 08/10/18 10:41) Medications Omeprazole [Prilosec] 20 mg PO DAILY 02/01/18 [History Confirmed 08/10/18] tumncoisnrs-ryl-iwhnxrzae-hr b 149-hyalur 500 mg-500 mg-66.7 mg tablet tab PO 02/16/18 [History Confirmed 08/10/18] losartan 25 mg tablet 25 mg PO DAILY #90 tab 02/16/18 [Rx Confirmed 08/10/18] amiodarone 200 mg tablet 200 mg PO DAILY #90 tab 03/20/18 [Rx Confirmed 08/10/18] metoprolol succinate ER 25 mg tablet,extended release 24 hr 25 mg PO DAILY #90 tab 03/20/18 [Rx Confirmed 08/10/18] rivaroxaban 20 mg tablet 20 mg PO DAILY #90 tab 03/20/18 [Rx Confirmed 08/10/18] aspirin 81 mg tablet,delayed release 81 mg PO QDAY #90 tab 04/30/18 [Rx Confirmed 08/10/18] atorvastatin 80 mg tablet 40 mg PO QHS tab 08/10/18 [History] levothyroxine 125 mcg capsule See Rx Instructions PO .COMPLEX cap 08/10/18 [History] [facility] Medical History Snoring (Chronic) Daytime somnolence (Chronic) Nonischemic cardiomyopathy (Chronic) 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 Did Why Weight.); negative for fatigue, weakness, body ache, fever(s), headache(s), chills, frequent falls, night sweats, daytime sleepiness, difficulty sleeping, excessive sweating, weight gain, increased appetite, poor appetite or anorexia Eyes [...] Cardio Chest Pain: No Palpitations: No Edema: None Muscle aches with walking: None Resp Respiratory: Negative for SOB with activity, SOB at rest, SOB orthopnea\\SOB lying down, Cough, Coughing up blood/hemoptysis, chest congestion, pain on inspiration, snoring, stridor, wheezing, crackles, paroxysmal nocturnal dyspnea or other GI GI: Negative nausea, vomiting, heartburn, constipation, belching, bloating, cramping, vomiting blood/hematemesis, bright, red blood in stools, black,tarry stools, loose stools, Difficulty Swallowing or other : Negative for hematuria, frequent nighttime urination/ nocturia, erectile dysfunction or abnormal vaginal bleeding Musc Musc: Negative for muscle aches/ myalgia, muscle weakness, joint pain or balance problems Skin Skin: Negative redness, non-healing lesions, rash, unusual bruising, skin ulcer, wounds, jaundice or other Neuro Neuro: Negative for dizziness, lightheadedness, near syncope, syncope, orthostatic symptoms, frequent falls, headache(s), weakness, confusion, memory loss, restless legs, blurry vision, double vision, vertigo, seizures, lack of coordination or other Melquiades Hematologic/Lymphatic: Negative for easy bleeding, easy bruising, enlarged lymph nodes or other Endo Endo: Negative for fatigue, cold intolerance, heat intolerance, excessive sweating, flushing, increased thirst/drinking, increased hunger, hair loss, hair growth or other Psych Psych: Negative for anxiety, depression, thoughts of harming anyone, thoughts of harming yourself, visual hallucinations, panic attacks or audible hallucinations Allergy Allergy/Immunology: Negative for throat swelling, Negative for tongue swelling, Negative for hives, Negative for rash, Negative for lip swelling Cardiology Exam Const Appearance: cooperative, healthy appearing and no acute distress Nutritional Appearance: well nourished Orientation: alert, oriented x3 and oriented to person Head Head: normal to inspection, normocephalic and atraumatic Nose: external nose normal Face and Sinus: [...] Palpation: normal PMI Rate: regular rate Rhythm: regular rhythm Heart sounds: S1 normal and S2 normal GI GI: normal to inspection, no hepatosplenomegaly and bowel sounds present Neuro General: alert, awake, oriented x3, CN's II-XI intact bilaterally and moves all extremities Skin Skin: no rashes or lesions noted Extremities Pulses: Normal: Right Femoral Pulse, Left Femoral Pulse, Right Dorsalis Pedis Pulse, Left Dorsalis Pedis Pulse, Right Posterior Tibial Pulse, Left Posterior Tibial Pulse, Right Radial Pulse, Left Radial Pulse Lower Extremity Edema: None: Bilateral Psych Psychological: normal affect Assessment AND Plan 1. 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 Chino @ [facility] Plan 1. Coronary artery disease: The patient has no anginal symptoms at this time. Diagnostic coronary angiogram demonstrated mild nonobstructive coronary disease. Recommend he continue baby aspirin going forward. No indication for repeat stress testing at this time. Orders Orders: 2. Atrial fibrillation I48.91 Plan 2. Atrial fibrillation: The patient has successfully maintained normal sinus rhythm with beta-jose a and amiodarone assistance. He is also on Xarelto without any difficulties. He has completed cardiac rehab and continues to exercise 3 times per week without any difficulty. Have recommended that he undergo pulmonary function tests for amiodarone surveillance, his last TSH in July 2018 was within normal limits, and recommend he repeat his echocardiogram to determine if he has had improvement of his LV function with medical management, cardioversion, and exercise. Hopefully his LV function has improved. If his LV function has improved we will consider discontinuation of amiodarone and treating his atrial fibrillation with beta-blockers and Xarelto. Orders Orders: 3. Nonischemic cardiomyopathy I42.8 EF 35% per echo 01/26/18 Plan 3. Nonischemic cardia myopathy: Patient feels great and is exercising without difficulty. He has maintained normal sinus rhythm. Repeat echo is pending. Continue antihypertensive medications of losartan and metoprolol as well as maintenance of sinus rhythm with amiodarone. 4. Return office in 6 months. This note was generated using a voice recognition system and there may be incorrect words, spelling or punctuation that were not noted when reviewing the office note prior to saving. 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.10 Atrial fibrillation I48.91 Nonischemic cardiomyopathy I42.8 Supplemental Info Supplemental Information Labs LDL Cholesterol 42 mg/dL (0-130) 08/04/18 HDL Cholesterol 41 mg/dL (40-) 08/04/18 Triglycerides 50 mg/dL (-199) 08/04/18 VLDL Cholesterol 10 mg/dL (5-40) 08/04/18 Diagnostics Electrocardiogram 08/10/18 Echocardiogram 01/26/18 Stress Echocardiogram 02/01/18 Cardiac Catheterization 02/02/18 Chest X-Ray 01/31/18 08/10/18 1053 <Electronically signed by Balwinder Chino MD> Date Balwinder Chino MD [facility] Signature: Date (if applicable) CC: Dayan Mehta DO Steff Subramanian Start: 08-10-2018 End: 08-20-2018 12 Lead EKG performed by [facility] Comments: See Note; NOTES: [facility] [address] [place] [address] 12 Lead EKG performed by [facility] 08/10/18 1028 MR#: [id number] Acct: [id number] Name: NIYA MCKEON Rep #: [id number] : 1955 63 From: Balwinder Chino MD Attending Dr: Balwinder Chino MD Status: DEP [facility] Ordering Dr: Balwinder Chino MD Date: 08/10/18 Location: [facility] Sex: M C Admitted: [facility]/12 Lead EKG performed by [facility] Sinus Bradycardia -With rate variation cv = 10.WITHIN NORMAL LIMITS 08/10/18 1323 <Electronically signed by Balwinder Chino MD> Date Balwinder Chino MD CC: Dayan Mehta DO Date Dictated: 08/10/18 1028 Date Transcribed: 08/10/18 1028 Pharmacy Operations Coordinator: DN Signed Steff Subramanian Start: 03-13-2018 End: 03-13-2018 CR - History AND Physical Comments: See Note; NOTES: 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, CLIENT INTEGRATION MANAGER, BS PCP: Steff Subramanian NP DOS: 03/13/18 [...] Advanced Directives - Advanced Directives Power of Vice President Of Business Development: Yes Living Will: Yes Advance Directives Information Provided: No Advance Directives on File: Yes DNR Order?:: No - MOLST See MOLST form: No Past Medical History - Past Medical Illness Medical History: Past Medical History (Last Updated 03/02/18 @ 13:19 by Clotilde Bautista) Snoring (Chronic) R06.83 Daytime somnolence (Chronic) R40.0 Nonischemic cardiomyopathy (Chronic) I42.8 EF 35% per echo 01/26/18 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 Chino @ [facility] Atrial enlargement, right (Chronic) I51.7 Per echo 01/26/18 GERD (gastroesophageal reflux disease) (Chronic) K21.9 Atrial fibrillation (Chronic) I48.91 - Past Surgical History Surgical History: Past Surgical History (Last Reviewed 02/16/18 @ 08:22 by Clotilde Bautista) History of left heart catheterization (Chronic) Onset Date: 02/02/18 Z98.890 Nonobstructive coronary arteries (<30% stenosis in LAD, CX, and RCA: left main normal) per [facility] 02/02/[address] Chino @ [facility] H/O lateral meniscus repair of left knee Onset Date: [address] 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 Recreational Activities: I am able to engage in all my recreational activities - now that have had cardioversion able to do more Social Environment - Status Marital Status: - Current Living Arrangements Living Environment:: Family - Children How many children do you have?: 3 Do any of your children live nearby?: Yes - 1 in [place] in [place] - Safety Do you feel safe in your surroundings?: Yes - Assistance Do you need any assistance at home?: none Review of Systems - Review of Systems Hints: Right click = Denies (Slash). Left click = Reports ([place]) Review of Present Symptoms: Reports: Shortness of [...] 1045 <Electronically signed by Balwinder Chino MD> Valarieer Signature: Date Balwinder Chino MD CC: Signed Steff Ciesa Start: 03-12-2018 End: 03-12-2018 Office Visit Report Comments: See Note; NOTES: [facility] [address] [place] [address] OFFICE VISIT Date of Service: 03/09/18 MR#: [id number] Acct: [id number] Patient: NIYA MCKEON Rep #: [id number] : 1955 Provider: Balwinder Chino MD Age/Sex: 62/M Location: [facility] Status: Signed Intake Intake Visit Reasons: [...] mg PO QDAY 02/16/18 [History Confirmed 03/01/18] ztfxirjzchp-qco-ucjxcstov-hr b 149-hyalur 500 mg-500 mg-66.7 mg tablet tab [...] Signature: Date (if applicable) CC: Steff Subramanian Start: 03-09-2018 End: 06-22-2018 12 Lead EKG performed by [facility] Comments: See Note; NOTES: [facility] [address] [address] 12 Lead EKG performed by [facility] 03/09/18 1541 MR#: [id number] Acct: [id number] Name: NIYA MCKEON Rep #: [id number] : 1955 62 From: Balwinder Chino MD Attending Dr: Balwinder Chino MD Status: DEP AMB Ordering Dr: Balwinder Chino MD Date: 03/09/18 Location: [facility] Sex: M C Admitted: [facility]/ Lead EKG performed by [facility] Sinus Bradycardia WITHIN NORMAL LIMITS 03/15/18 1402 <Electronically signed by Balwinder Chino MD> Date Balwinder Chino MD CC: Steff Subramanian MILITARY COOK Date Dictated: 03/09/18 1541 Date Transcribed: 03/09/18 154 Pharmacy Operations Coordinator: Signed Steff Subramanian Start: 03-03-2018 End: 03-03-2018 Operative Report Comments: See Note; NOTES: [facility] Medical Records Department [address] [place] [address] Operative Report 03/02/18 1325 MR#: [id number] Acct: [id number] Name: NIYA MCKEON Rep #: [id number] : 1955 62 From: Amilcar Jane MD PCP: Steff Subramanian NP Status: REG SDC Y Location: [facility] Problem List (1) Atrial enlargement, right Status: Chronic Comment: Per echo 01/26/18 (2) Atrial fibrillation Status: Chronic (3) GERD (gastroesophageal reflux disease) Status: Chronic (4) Nonischemic cardiomyopathy Status: Chronic Comment: EF 35% per echo 01/26/18 Operative Report Date of Procedure: 03/02/18 - Conscious sedation CONSCIOUS SEDATION REPORT BRIEF HISTORY OF PRESENT ILLNESS: The patient is a 62-year-old male who presented to [facility] for an elective outpatient cardioversion due to [...] Visit 9xxxx: Other Procedure See Report - 28182 -8 minutes of conscious sedation 03/03/18 0530 <Electronically signed by Amilcar Jane MD> Date Amilcar Jane MD CC: Steff Subramanian NP; Amilcar Jane MD; Balwinder Chino MD Signed Steff Subramanian Start: 03-02-2018 End: 03-02-2018 Operative Report Comments: See Note; NOTES: 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 Chino @ [facility] (3) Atrial fibrillation Status: Chronic Operative Report [...] Jane for his assistance. Code Visit 92xxx-93xxx: 65127 Cardioversion electric ext 03/02/18 1246 <Electronically signed by Balwinder Chino MD> Date Balwinder Chino MD CC: Steff Subramanian MILITARY COOK; Balwinder Chino MD Signed Steff Subramanian Start: 02-16-2018 End: 02-16-2018 Cardiology Visit Report Comments: See Note; NOTES: [facility] [address] [place] [address]. 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 Chino @ [facility] Plan 3. Coronary artery disease: No exertional [...] to saving. 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 I25.10 02/16/18 1159 <Electronically signed by Balwinder Chino MD> Date Balwinder Chino MD Cosigner Signature: Date (if applicable) CC: Steff Subramanian MILITARY COOK Steff Subramanian Start: 02-01-2018 End: 02-01-2018 Office Visit Report Comments: See Note; NOTES: [place] [address] [place] [address] OFFICE VISIT Date of Service: 01/29/18 MR#: [id number] Acct: [id number] Patient: NIYA MCKEON Rep #: [id number] : 1955 Provider: Balwinder Chino MD Age/Sex: 62/M Location: [facility] Status: Signed Intake Intake Visit Reasons: cath [...] cath on February 14. RX sent to [facility] and pt already picked it up as [place] is going [place] of [place] the end of the week. 02/01/18 0858 <Electronically signed by Balwinder Chino MD> Date Balwinder Chino MD Cosigner Signature: Date (if applicable) CC: Clotilde Subramanian Start: 01-31-2018 End: 01-31-2018 Emergency Department Summary Comments: See Note; NOTES: [facility] Medical Records Department [address] [place] [place] [address] Emergency Department Summary 01/31/18 2249 MR#: [id number] Acct: [id number] Name: NIYA MCKEON Rep #: [id number] : 1955 62 From: Akilah Dia MD [...] Chest pain This note was generated with SensorTran dictation software. It may contain incorrect words, [...] your Primary Care Provider. Call [facility] ([phone]) or report to the closest Emergency Room. Call 911 if necessary. 01/31/18 8995 <Electronically signed by Akilah Dia MD> Date Akilah Dia MD Cosigner Signature (If Indicated): Date CC: Steff Subramanian Start: 01-31-2018 End: 01-31-2018 Chest 1 View (Portable) Comments: See Note; NOTES: [facility] Imaging Services [address] [place] [address] Chest 1 View (Portable) MR#: [id number] Acct: [id number] Name: NIYA MCKEON Rep #: [id number] : 1955 M 62 From: Justus Moran DO PCP: Steff Subramanian NP Status: REG ER Study: Chest 1 View (Portable) Date of Exam: 01/31/18 Exam# [id number] Ordering Dr: Akilah Dia MD STUDY: X-RAY [...] Justus Moran DO at 23:05 EDT Tel [phone], Service support , CC: Steff Subramanian NP; Akilah Dia MD Pharmacy Operations Coordinator: Signed Steff Subramanian Start: 01-26-2018 End: 01-26-2018 Echocardiogram Complete Comments: See Note; NOTES: [facility] Cardiovascular Services [address] [place] [address] Echo Complete 01/26/18 0903 MR#: [id number] Acct: [id number] Name: NIYA MCKEON Rep #: [id number] : 1955 62 From: Balwinder Chino MD Attending Dr: Balwinder Chino MD Status: REG CLI Ordering Dr: Balwinder Chino MD Date: 01/26/18 Location: [facility] Sex: M C Admitted: Reason For Study: [...] Mehta DO Date Dictated: 01/26/18902 Date Transcribed: 01/26/181338 Pharmacy Operations Coordinator: Signed Steff Subramanian Start: 01-23-2018 End: 01-23-2018 Cardiology Visit Report Comments: See Note; NOTES: [facility] [address] [place] [address] OFFICE VISIT Date of Service: 01/23/18 MR#: [id number] Acct: [id number] Name: NIYA MCKEON Rep #: [id number] : 1955 Provider: Balwinder Chino MD Age/Sex: 62/M Location: [facility] Status: Signed HPI HPI Chief Complaint: [...] 90/60 Intake Visit Reasons: IRREG HEART RATE ([facility] ER) Allergies No Known Allergies Allergy (Verified 01/23/18 10:46) Medications albuterol sulfate HFA 90 mcg/actuation aerosol inhaler 2 puff INHALATION Q6H PRN 01/22/18 [History Confirmed 01/22/18] metoprolol succinate ER 25 mg tablet,extended release 24 hr 25 mg PO DAILY #30 tab.er.24h 01/23/18 [Rx Confirmed 01/23/18] rivaroxaban 20 mg tablet 20 mg PO DAILY #30 tab 01/23/18 [Rx Confirmed 01/23/18] [facility] Medical History GERD (gastroesophageal reflux disease) (Chronic) [...] SOB with activity, SOB at rest, SOB orthopnea\\SOB lying down, Coughing up blood/hemoptysis, chest congestion, [...] Detail Other Medications Refilled: Follow Up +6M ([place]atti) Coding Level of Care Code Off vis,new,level 4 Diagnoses Atrial fibrillation I48.91 Coding Level of Care Code Off vis,new,level 4 Diagnoses Atrial fibrillation I48.91 01/23/18 1119 <Electronically signed by Balwinder Chino MD> Date [facility] Signature: Date (if applicable) CC: Florence Carranza MD Steff Subramanian Start: 01-15-2018 End: 01-15-2018 12 lead ECG Comments: See Note; NOTES: [facility] Cardiovascular Services [address] [place] [address] 12 Lead EKG 01/11/18 1536 MR#: [id number] Acct: [id number] Name: NIYA MCKEON Rep #: [id number] : 1955 62 From: George Mcwilliams MD Attending Dr: Status: DEP ER Ordering Dr: Provider, Estiven P. Date: 01/11/18 Location: ED Sex: M [...] ECG Confirmed by GEORGE MCWILLIAMS MD ([id number]), film editor supervisor CURLY BAUMANN ([id number]) on 01/15/2018 2:44:33 PM Referred By: ANDREW/SEBAS Confirmed By:GEORGE MCWILLIAMS MD 01/15/18 1444 Date George Mcwilliams MD CC: Florence Carranza MD; ED PHYSICIAN PROVIDER; Rambo Machado MD Signed Steff Subramanian Start: 01-11-2018 End: 01-11-2018 Emergency Department Summary Comments: See Note; NOTES: [facility] Medical Records Department [address] [place] [address] Emergency Department Summary 01/11/18 1753 MR#: [id number] Acct: [id number] Name: NIYA MCKEON Rep #: [id number] : 1955 62 From: Rambo Machado MD [...] atrial fibrillation This note was generated with SensorTran dictation software. It may contain incorrect words, [...] problems, contact your Primary Care Provider. Call [facility] ([phone]) or report to the closest Emergency Room. Call 911 if necessary. 01/11/18 2257 <Electronically signed by Rambo Machado MD> Date Rambo Machado MD Cosign Signature (If Indicated): Date CC: Florence Carranza MD Steff Subramanian Start: 01-11-2018 End: 01-11-2018 Chest 1 View (Portable) Comments: See Note; NOTES: [facility] Imaging Services [address] [place] [address] Chest 1 View (Portable) MR#: [id number] Acct: [id number] Name: NIYA MCKEON Juan J Rep #: [id number] : 1955 M 62 From: Bo Vivas MD PCP: NOT, DEFINED Status: PRE ER Study: Chest 1 View (Portable) Date of Exam: 01/11/18 Exam# [id number] Ordering Dr: Rambo Machado MD STUDY: X-RAY [...] , CC: DEFINED NOT; Rambo Machado MD Pharmacy Operations Coordinator: Signed Steff Subramanian Start: 01-01-2018 End: 01-01-2018 Chest PA and Lateral Comments: See Note; NOTES: [facility] Imaging Services [address] [place] [address] Chest PA and Lateral MR#: [id number] Acct: [id number] Name: NIYA MCKEON Rep #: [id number] : 1955 62 From: Lakeisha Arevalo MD PCP: Florence Carranza MD Status: REG CLI Study: Chest PA and Lateral Date of Exam: 01/01/18 Exam# [id number] Ordering Dr: Hodan Lockett MILITARY COOK-Day STUDY: X-RAY CHEST REASON FOR EXAM: Male, [...] , CC: HENRI Lockett; Florence Carranza MD Pharmacy Operations Coordinator: Signed Hodan Lockett Arthroscopy of knee DR NAI PARRA MD Comment on above: left Bone spur of left elbow DR Brian PARRA MD Cardioversion DR MIYA JANG MD Colonoscopy DR MIYA Rehman MD left knee meniscus repair 2004 Dr. Lei Mills left knee meniscus repair 2004 Dr. Lei Mills left knee meniscus repair 2004 Dr. Lei Grubbs left knee meniscus repair 2004 Dr. Lei Grubbs left knee meniscus repair 2004 Dr. Lei Miguel left knee meniscus repair 2004 Dr. Lei Miguel left knee meniscus repair 2004 Dr. Lei Carrillo left knee meniscus repair 2004 Dr. Lei Carrillo left knee meniscus repair 2004 Dr. Lei Carrillo LPN left knee meniscus repair 2004 Dr. Lei Carrillo LPN left knee meniscus repair 2004 Dr. Lei Carrillo LPN left knee meniscus repair 2004 Dr. Lei Villatoro LPN left knee meniscus repair 2004 Dr. Lei Swain MA left knee meniscus repair 2004 Dr. Lei Alxea Slarb APPLICATION TESTER left knee meniscus repair 2004 Dr. Lei Swain MA left knee meniscus repair 2004 Dr. Lei Swain MA Total replacement of left knee joint Alexa Slarb APPLICATION TESTER Comment on above: Dr Parra 2021 Total replacement of left knee joint Kimberlyn Swain MA Comment on above: Dr Parra 2021 Total replacement of left knee joint Alexa Slarb APPLICATION TESTER Comment on above: Dr Parra 2021 Total replacement of left knee joint DR MIYA PARRA MD Total replacement of left knee joint Kimberlyn Swain MA Comment on above: Dr Parra 2021 Total replacement of left knee joint Kimberlyn Swain MA Comment on above: Dr Parra 2021 Plan of Treatment Date Care Activity Detail Author Start: 11-06-2024 Evaluation of diagnostic study results [facility] Start: 07-10-2023 Advance Directive Discussion Advance Directive Discussion [facility] Start: 07-10-2023 Depression Assessment Depression Assessment [facility] Start: 11-30-2022 Procedure Education Eprescribed prescriptions (G8553) [facility]; [facility] Work Phone: Start: 11-30-2022 Provider Instructions for Treatment Follow up in 6 months [facility]; [facility] Work Phone: Start: 07-29-2022 Patient Education Low Back Pain Exercises *: back exercises [facility]; [facility] Work Phone: Start: 07-29-2022 Procedure Education Eprescribed prescriptions (G8553) [facility]; [facility] Work Phone: Start: 07-29-2022 Provider Instructions for Treatment [facility]; [facility] Work Phone: Start: 06-11-2022 US.doppler Lower extremity vein [facility] Work Phone: Start: 2022 Pneumococcal Vaccine: 65+ (1 of 1 - PCV) Pneumococcal Vaccine: 65+ (1 of 1 - PCV) [facility] Start: 05-10-2022 Procedure Education Eprescribed prescriptions (G8553) [facility]; [facility] Work Phone: Start: 10-19-2022 Provider Instructions for Treatment [facility]; [facility] Work Phone: Start: 04-15-2022 Procedure Education Eprescribed prescriptions (G8553) [facility]; [facility] Work Phone: Start: 04-15-2022 Provider Instructions for Treatment Follow up - Keep appt as scheduled [facility]; [facility] Work Phone: Start: 04-15-2022 Assay of free thyroxine T4, FREE (THYROXINE) (67019) [facility]; [facility] Work Phone: Start: 04-15-2022 Assay of thyroid stimulating hormone tsh TSH (THYROID STIMULATING HORMONE) (59023) [facility]; [facility] Work Phone: Start: 04-15-2022 Assay of prostate specific antigen total PSA (PROSTATE SPECIFIC ANTIGEN) (V76.44) [facility]; [facility] Work Phone: Comment on above: after 06/16/22 Start: 01-12-2022 Procedure Education Eprescribed prescriptions (G8553) [facility]; [facility] Work Phone: Start: 01-12-2022 Provider Instructions for Treatment Follow up in 3 months [facility]; [facility] Work Phone: Start: 01-12-2022 Urine albumin quantitative MICROALBUMIN: CREATININE RATIO (85939) AND (96296) [facility]; [facility] Work Phone: Comment on above: prior to sx may Start: 01-12-2022 Assay of thyroid stimulating hormone tsh TSH (THYROID STIMULATING HORMONE) (47295) [facility]; [facility] Work Phone: Comment on above: today Start: 01-12-2022 Blood count manual cell count each CBC with auto diff (70198) [facility]; [facility] Work Phone: Comment on above: prior to sx in may 2022 Start: 01-12-2022 Comprehensive metabolic panel METABOLIC PANEL, COMPREHENSIVE (44897) [facility]; [facility] Work Phone: Comment on above: prior to sx may Start: 01-12-2022 Lipid panel LIPID PANEL (02168) [facility]; [facility] Work Phone: Comment on above: may 2022 Start: 08-11-2021 Procedure Education Eprescribed prescriptions (G8553) [facility]; [facility] Work Phone: Start: 08-11-2021 Culture bacterial quanttative colony count urine URINE BARRETT CULTURE (FELICITAS COL COUNT) (62178) [facility]; [facility] Work Phone: Start: 08-10-2021 Urine albumin quantitative MICROALBUMIN: CREATININE RATIO (31096) AND (00604) [facility]; [facility] Work Phone: Comment on above: Aug 16 2021 Start: 07-14-2021 Procedure Education Eprescribed prescriptions (G8553) [facility]; [facility] Work Phone: Start: 07-14-2021 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 Fax Lab orders to [facility] [employer]PECTOR [facility]; [facility] Work Phone: Start: 07-14-2021 Assay of thyroid stimulating hormone tsh TSH (THYROID STIMULATING HORMONE) (21973) [facility]; [facility] Work Phone: Comment on above: Aug 10 2021 Start: 07-14-2021 Blood count complete automated CBC & PLATELETS (AUTO) (76413) [facility]; [facility] Work Phone: Comment on above: Aug 10, 2021 Start: 07-14-2021 Urine albumin quantitative MICROALBUMIN: CREATININE RATIO (61776) AND (74251) [facility]; [facility] Work Phone: Comment on above: Aug 10 [facility] Start: 07-14-2021 Renal function panel RENAL FUNCTION PANEL (80496) [facility]; [facility] Work Phone: Comment on above: Aug 10 to [facility] Start: 06-11-2021 Procedure Education Eprescribed prescriptions (G8553) [facility]; [facility] Work Phone: Start: 06-11-2021 Provider Instructions for Treatment Follow up in 4 months [facility]; [facility] Work Phone: Start: 02-09-2021 Procedure Education Eprescribed prescriptions (G8553) [facility]; [facility] Work Phone: Start: 02-09-2021 Provider Instructions for Treatment [facility]; [facility] Work Phone: Start: 02-09-2021 Sedimentation rate rbc non-automated SED RATE ERYTHROCYTE (99379) [facility]; [facility] Work Phone: Comment on above: Mar 17 Start: 02-09-2021 Cyanocobalamin vitamin b-12 VITAMIN B-12 (CYANOCOBALAMIN) (57942) [facility]; [facility] Work Phone: Comment on above: Mar 17 Start: 02-09-2021 25 hydroxy includes fractions if performed CALCIFIDIOL (86577) VIT D 25 [facility]; [facility] Work Phone: Comment on above: Mar 17 Start: 02-09-2021 Assay of thyroid stimulating hormone tsh TSH (THYROID STIMULATING HORMONE) (10254) [facility]; [facility] Work Phone: Comment on above: Mar 17 Start: 02-01-2021 TSH Qn TSH (THYROID STIMULATING HORMONE) (80356) [facility]; [facility] Work Phone: Start: 12-22-2020 Assay of thyroid stimulating hormone tsh TSH (THYROID STIMULATING HORMONE) (31758) [facility]; [facility] Work Phone: Start: 11-16-2020 Free T4 [Mass/Vol] T4, FREE (THYROXINE) (67680) [facility]; [facility] Work Phone: Start: 11-16-2020 Free T3 [Mass/Vol] T3, FREE (TRIDOTHYRONINE) (76329) [facility]; [facility] Work Phone: Start: 11-16-2020 TSH Qn TSH (THYROID STIMULATING HORMONE) (42091) [facility]; [facility] Work Phone: Start: 11-16-2020 Assay of free thyroxine T4, FREE (THYROXINE) (73536) [facility]; [facility] Work Phone: Start: 11-16-2020 Assay of thyroid stimulating hormone tsh TSH (THYROID STIMULATING HORMONE) (05437) [facility]; [facility] Work Phone: Start: 11-16-2020 Assay of triiodothyronine t3 free T3, FREE (TRIDOTHYRONINE) (06909) [facility]; [facility] Work Phone: Start: 10-05-2020 Procedure Education Eprescribed prescriptions (G8553) [facility]; [facility] Work Phone: Start: 10-05-2020 Provider Instructions for Treatment [facility]; [facility] Work Phone: Start: 06-08-2020 Procedure Education Eprescribed prescriptions (G8553) [facility] Work Phone: Start: 06-08-2020 Provider Instructions for Treatment [facility] Work Phone: Start: 06-08-2020 Assay of thyroid stimulating hormone tsh TSH (83393) [facility]; [facility] Work Phone: Comment on above: September 2020 Start: 06-08-2020 Urine albumin quantitative MICROALBUMIN: CREATININE RATIO (03459) AND (47814) [facility] Work Phone: Comment on above: September 2020 Start: 06-08-2020 TSH Qn TSH (05576) [facility] Work Phone: Comment on above: September 2020 Start: 06-08-2020 Blood count complete auto&auto difrntl wbc CBC, Platelets & Auto Diff (50440) [facility] Work Phone: Comment on above: September 2020 Start: 06-08-2020 Comprehensive metabolic panel Metabolic Panel, Comprehensive (44194) [facility] Work Phone: Comment on above: September 2020 Start: 06-08-2020 Lipid panel LIPID PANEL (43377) [facility] Work Phone: Comment on above: September 2020 Start: 01-31-2020 Procedure Education Eprescribed prescriptions (G8553) [facility] Work Phone: Start: 01-31-2020 Provider Instructions for Treatment [facility] Work Phone: Start: 01-31-2020 Assay of prostate specific antigen total PSA (PROSTATE SPECIFIC ANTIGEN) (V76.44) [facility] Work Phone: Comment on above: May 2020 Start: 01-31-2020 Blood count complete automated CBC & PLATELETS (AUTO) (56949) [facility] Work Phone: Comment on above: May 2020 Start: 01-31-2020 Assay of thyroid stimulating hormone tsh TSH (THYROID STIMULATING HORMONE) (13925) [facility]; [facility] Work Phone: Comment on above: May 2020 Start: 01-31-2020 TSH Qn TSH (THYROID STIMULATING HORMONE) (67899) [facility] Work Phone: Comment on above: May 2020 Start: 09-30-2019 Procedure Education Eprescribed prescriptions (G8553) [facility] Work Phone: Start: 09-30-2019 Provider Instructions for Treatment [facility] Work Phone: Start: 09-23-2019 TSH Qn TSH (THYROID STIMULATING HORMONE) (87481) [facility] Work Phone: Start: 09-23-2019 Comprehensive metabolic panel Metabolic Panel, Comprehensive (58242) [facility] Work Phone: Start: 09-23-2019 Lipid panel LIPID PANEL (06114) [facility] Work Phone: Start: 05-24-2019 Procedure Education Eprescribed prescriptions (G8553) [facility] Work Phone: Start: 05-24-2019 Provider Instructions for Treatment Follow up in 4 months [facility] Work Phone: Start: 05-24-2019 Assay of prostate specific antigen total PSA (PROSTATE SPECIFIC ANTIGEN) (V76.44) [facility] Work Phone: Start: 03-13-2019 Lipid panel Lipid Panel (62009) [facility] Work Phone: Start: 03-13-2019 Comprehensive metabolic panel Metabolic Panel, Comprehensive (05178) [facility] Work Phone: Start: 03-13-2019 Comprehensive metabolic panel Metabolic Panel, Comprehensive (53840) [facility] Work Phone: Start: 03-13-2019 Lipid panel Lipid Panel (84385) [facility] Work Phone: Start: 02-20-2019 Procedure Education Eprescribed prescriptions (G8553) [facility] Work Phone: Start: 02-20-2019 Provider Instructions for Treatment Follow up in 3 months [facility] Work Phone: Start: 02-18-2019 Blood count complete auto&auto difrntl wbc CBC, Platelets & Auto Diff (81910) [facility] Work Phone: Start: 02-18-2019 Comprehensive metabolic panel Metabolic Panel, Comprehensive (89193) [facility] Work Phone: Start: 02-11-2019 Procedure Education Eprescribed prescriptions (G8553) [facility] Work Phone: Start: 02-08-2019 Procedure Education Eprescribed prescriptions (G8553) [facility] Work Phone: Start: 02-08-2019 Provider Instructions for Treatment Follow up Monday [facility] Work Phone: Start: 02-08-2019 Assay of lactate LACTATE (LACTIC ACID) (52800) [facility]; [facility] Work Phone: Start: 02-08-2019 Lactate [Moles/Vol] LACTATE (LACTIC ACID) (14280) [facility] Work Phone: Start: 02-08-2019 Fibrin dgradj products d-dimer quantitative D-Dimer (61936) [facility] Work Phone: Start: 02-08-2019 Comprehensive metabolic panel Metabolic Panel, Comprehensive (15614) [facility] Work Phone: Start: 02-08-2019 Blood count complete automated CBC & PLATELETS (AUTO) (34439) [facility] Work Phone: Start: 02-08-2019 Bacteria identified Respiratory culture Nom (Sput) Sputum Culture (41492) [facility] Work Phone: Start: 02-08-2019 Cul bact xcpt urine blood/stool aerobic isol Sputum Culture (30975) [facility]; [facility] Work Phone: Start: 01-28-2019 Urine albumin quantitative MICROALBUMIN: CREATININE RATIO (99221) AND (03923) [facility] Work Phone: Start: 01-28-2019 TSH Qn TSH (28420) [facility] Work Phone: Start: 01-28-2019 Blood count complete auto&auto difrntl wbc CBC, Platelets & Auto Diff (68069) [facility] Work Phone: Start: 01-28-2019 Comprehensive metabolic panel Metabolic Panel, Comprehensive (11021) [facility] Work Phone: Start: 08-22-2018 Procedure Education Eprescribed prescriptions (G8553) [facility] Work Phone: Start: 08-22-2018 Provider Instructions for Treatment [facility] Work Phone: Start: 08-13-2018 Comprehensive metabolic panel Metabolic Panel, Comprehensive (28454) [facility] Work Phone: Start: 08-13-2018 Thyrotropin Qn TSH (THYROID STIMULATING HORMONE) (48334) [facility] Work Phone: Start: 08-13-2018 Lipid panel LIPID PANEL (36024) [facility] Work Phone: Start: 08-06-2018 Lipid panel Lipid Panel (44509) [facility] Work Phone: Start: 05-22-2018 Assay of thyroid stimulating hormone tsh TSH (THYROID STIMULATING HORMONE) (81893) [facility]; [facility] Work Phone: Start: 05-22-2018 Thyrotropin Qn TSH (THYROID STIMULATING HORMONE) (91321) [facility] Work Phone: Start: 05-21-2018 Procedure Education Eprescribed prescriptions (G8553) [facility] Work Phone: Start: 05-21-2018 Provider Instructions for Treatment Follow up in 3 months [facility] Work Phone: Start: 04-09-2018 Assay of thyroid stimulating hormone tsh TSH (THYROID STIMULATING HORMONE) (13639) [facility]; [facility] Work Phone: Start: 04-09-2018 Thyrotropin Qn TSH (THYROID STIMULATING HORMONE) (43647) [facility] Work Phone: Start: 02-16-2018 Procedure Education Eprescribed prescriptions (G8553) [facility] Work Phone: Start: 02-16-2018 Provider Instructions for Treatment Follow up in 3 months [facility] Work Phone: Start: 02-16-2018 Assay of prostate specific antigen total PSA (PROSTATE SPECIFIC ANTIGEN) (V76.44) [facility] Work Phone: Start: 02-16-2018 Protein mass conc PSA (PROSTATE SPECIFIC ANTIGEN) (V76.44) [facility] Work Phone: Start: 02-16-2018 Assay of triiodothyronine t3 free T3, FREE (TRIDOTHYRONINE) (68539) [facility]; [facility] Work Phone: Start: 02-16-2018 T3 free mass conc T3, FREE (TRIDOTHYRONINE) (31215) [facility] Work Phone: Start: 02-16-2018 Assay of free thyroxine T4, FREE (THYROXINE) (10625) [facility]; [facility] Work Phone: Start: 02-16-2018 T4 free mass conc T4, FREE (THYROXINE) (28865) [facility] Work Phone: Start: 02-16-2018 Assay of thyroid stimulating hormone tsh TSH (THYROID STIMULATING HORMONE) (04600) [facility]; [facility] Work Phone: Start: 02-16-2018 Thyrotropin Qn TSH (THYROID STIMULATING HORMONE) (52638) [facility] Work Phone: Start: 01-01-2018 Patient Education Sinusitis *: sinus infection [facility] Work Phone: Start: 01-01-2018 Procedure Education Eprescribed prescriptions (G8553) [facility] Work Phone: Start: 01-01-2018 Provider Instructions for Treatment Follow up if no improvement or if symptoms worsen [facility] Work Phone: Start: 2017 RSV Vaccine (1 - 1-dose 60+ series) RSV Vaccine (1 - 1-dose 60+ series) [facility] Start: 10-30-2015 Blood count complete automated CBC (Auto) (58776) [facility] Work Phone: Start: 10-30-2015 Comprehensive metabolic panel Metabolic Panel, Comprehensive (05865) [facility] Work Phone: Start: 10-30-2015 Lipid panel LIPID PANEL (37498) [facility] Work Phone: Start: 10-30-2015 Assay of prostate specific antigen total PSA (Prostate Specific Antigen), Screening (24760) [facility] Work Phone: Start: 10-30-2015 Protein mass conc PSA (Prostate Specific Antigen), Screening (62424) [facility] Work Phone: Start: 2012 Prostate specific antigen measurement Prostate Cancer Screening Discussion [facility] Start: 04-15-2009 Provider Instructions for Treatment I/D Cyst/Abscess [facility] Work Phone: Start: 04-15-2009 Cul bact xcpt urine blood/stool aerobic isol BARRETT CULTURE-OTHER (38797) [facility] Work Phone: Comment on above: rt lateral side area of splinter removal Start: 08-12-2008 Provider Instructions for Treatment *palpitation discusssion [facility] Work Phone: Start: 10-01-2007 Provider Instructions for Treatment Antibiotic Usage Education - Male [facility] Work Phone: Start: 09-18-2007 Provider Instructions for Treatment Colon Cancer Screening [facility] Work Phone: Start: 09-18-2007 Hepatic function panel HEPATIC FUNCTION PANEL (43635) [facility] Work Phone: Comment on above: 8 weeks Start: 09-18-2007 Comprehensive metabolic panel Metabolic Panel, Comprehensive (23655) [facility] Work Phone: Start: 09-18-2007 Glucose mass conc Glucose (97091) [facility] Work Phone: Start: 09-18-2007 Glucose quantitative blood xcpt reagent strip Glucose (77619) [facility]; [facility] Work Phone: Start: 09-18-2007 Assay of prostate specific antigen total PSA (PROSTATE SPECIFIC ANTIGEN) (V76.44) [facility] Work Phone: Start: 09-18-2007 Protein mass conc PSA (PROSTATE SPECIFIC ANTIGEN) (V76.44) [facility] Work Phone: Start: 2002 Diabetes Screening Diabetes Screening [facility] Start: 2002 Screening for malignant neoplasm of colon [facility] Start: 1992 Lipid panel Lipid Screening [facility] Start: 1976 Urine microalbumin profile DTaP,Tdap,Td Vaccine (1 - Tdap) [facility] Start: 1975 Annual PCP Team Chronic Disease Visit Annual PCP Team Chronic Disease Visit [facility] Start: 1975 Hepatitis C screening Hepatitis C Screening [facility] Patient referral [facility] Work Phone: [facility] Work Phone: [facility] Work Phone: [facility] Work Phone: [facility] Work Phone[facility] Work Phone: [facility] Work Phone: [facility] Work Phone: [facility] Work Phone: [facility] Work Phone: [facility] Work Phone: [facility] Work Phone: [facility] Work Phone[facility] Work Phone: [facility] Work Phone[facility] Work Phone: [facility] Work Phone: [facility] Work Phone: [facility]; [facility] Work Phone: Immunizations Immunization Date Immunization Notes Care Provider Fa [facility] 05-07-2023 COVID-19 vaccine, ag e 12+ yr, 2022- season (PFIZER[employer]) Danny Ramos MD Work Phone: [facility] Work Phone: 05-07-2023 influenza (HD-IIV4) vaccine, age 65+ yr, high dose, quadrivalent, PF (FLUZONE HIGH-DOSE) Danny Ramos MD Work Phone: [facility] Work Phone: 04-14-2022 influenza, injectable, quadrivalent, preservative free Roman Nichols [facility] Work Phone: [facility]; [facility] Work Phone: Comment on above: Site: Left Deltoid 06-26-2021 COVID-19 original vaccine, full dose, monovalent (MODERNA) Danny Ramos MD Work Phone: [facility] Work Phone: 02-10-2021 zoster vaccine recombinant Danny Ramos MD Work Phone: [facility] Work Phone: 11-12-2020 zoster vaccine recombinant Danny Ramos MD Work Phone: [facility] Work Phone: 10-27-2020 zoster vaccine, live 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 [employer]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 Work Phone: [facility]; [facility] Work Phone: 10-22-2020 COVID-19 original vaccine, full dose, monovalent (MODERNA) Danny Ramos MD Work Phone: [facility] Work Phone: 10-14-2020 COVID-Moderna (100 MCG/0.5 ML) Steff Subramanian 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 Work Phone: [facility]; [facility] Work Phone: 09-24-2020 COVID-19 original vaccine, full dose, monovalent (MODERNA) Danny Ramos MD Work Phone: [facility] Work Phone: 09-23-2020 COVID-Moderna (100 MCG/0.5 ML) Steff Subramanian COM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 Work Phone: [facility]; [facility] Work Phone: 03-26-2018 influenza, injectable, quadrivalent, preservative free Danny Ramos MD Work Phone: [facility] Work Phone: 05-07-2017 influenza, injectable, quadrivalent, preservative free Danny Ramos MD Work Phone: [facility] 04-15-2009 tetanus toxoid, reduced diphtheria toxoid, and acellular pertussis vaccine, adsorbed Steff Subramanian [facility] Work Phone: 09-18-2007 tetanus and diphtheria toxoids, adsorbed, preservative free, for adult use (2 Lf of tetanus toxoid and 2 Lf of diphtheria toxoid) Steff Subramanian [facility] Work Phone: Comment on above: given in left deltoi d,lot #[id number], exp. December 20 2007 AW Payers Date Payer Category Payer Medicare [id number] 2025 Unknown [id number] 2024 Self-pay [id number] 2018 Unknown 2015 Unknown [id number] 1957 Unknown [id number] 2.16.8 [id number] 1957 Unknown [id number] 2.16.8 [id number] 1957 Unknown [id number] 2.16.8 [id number] 1957 Unknown [id number] 2.16.8 [id number] 1957 Unknown [id number] 2.16.8 [id number] 1957 Unknown [id number] 2.16.8 [id number] 1957 Unknown [id number] 2.16.8 [id number] 1957 Unknown [id number] 2.16.84 [id number] Private Health Insurance [id number] Unknown [id number] 2.16.8 [id number] Unknown [id number] 2.16.8 [id number] Unknown [id number] 2.16.8 [id number] Unknown [id number] 2.16.8 [id number] Unknown [id number] 2.16.8 [id number] Unknown [id number] 2.16.8 [id number] Unknown [id number] 2.16.8 [id number] Unknown [id number] 2.16.8 [id number] Unknown [id number] 2.16.8 [id number] Unknown [id number] 2.16.8 [id number] Social History Date Type Detail Facility Start: 06-16-2020 End: 09-06-2023 Caffeine Use Never smoker [facility] Work Phone: Comment on above: 2 cups qd 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 [facility] Work Phone: Tobacco use: Tobacco use: [facility]; [facility] Work Phone: Start: 08-17-2021 End: 08-21-2023 Never smoked tobacco (finding) [facility] Start: 1955 Sex Assigned At Male [facility] Start: 06-11-2022 Tobacco smoking status NDIS Unknown if ever smoked [facility] Start: 02-01-2018 None [facility] Start: 02-01-2018 Spouse/ Signif icant Other [facility] Start: 03-02-2018 Non-smoker [facility] Start: 07-28-2023 Tobacco use and exposure Smokeless tobacco non-user [facility] Start: 09-06-2023 Alcohol intake Lifetime non-d tony (finding) [facility] Start: 06-16-2020 End: 09-06-2023 Tobacco use panel [facility] National Score (1-100), lower number is lower risk Not on file [facility] Start: 1955 Sex Assigned At Not on file [facility] Functional Status Date Assessment Result Facility 05-24-2022 Functional Status Awake [facility] 05-24-2022 Functional Status Independent [facility] 05-24-2022 Functional Status ice on, tension pillow in place [facility] 05-24-2022 Functional Status Maintained [facility] Mental Status Date Assessment Result Facility 05-24-2022 Mental Status Orientation Oriented x 4 [facility] 05-24-2022 Mental Status Orientation Asse ssment Oriented x 4 [facility] 05-24-2022 Mental Status 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 Author Type: Physician Type: Progress Notes Filed: 09/10/2023 21:24 Note Text: PRIMARY CARE PHYSICIAN: Kartik Miguel MD [facility] [address] [place] [address] REFERRING PHYSICIAN: Peyton Rucker [address] [address] Patient Care Team: Roman Nichols CNP as PCP - General (Family Medicine) Neo, MD Peyton as Specialty Survey Coordinator (Cardiology) CHIEF COMPLAINT: Evaluation of arrhythmia HISTORY OF PRESENT ILLNESS: Mr. Mckeon is a 68 year old male who presents today for evaluation of arrhythmia. He states atrial fibrillation was diagnosed in 2018, had "wax build up" at the time, was seen by a nurse who diagnosed the irregular rhythm. 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 Cardiac catheterization did not reveal substantial CAD. In January 2018 treated with amiodarone and Xarelto. Underwent electrical cardioversion 03/02/2018. Amiodarone discontinued in 2019, then the atrial fibrillation recurred. By then the cardiomyopathy had resolved, LVEF 50%. He was then treated with flecainide, the atrial fibrillation spontaneously converted back to sinus rhythm. No atrial fibrillation recurrence on the flecainide that he has been aware. When in atrial fibrillation, he has less energy, has fatigue, palpitations or skipped beats, also exertional shortness of breath, effort intolerance. He denies chest pain, shortness of breath, orthopnea, palpitations, PND, lightheadedness or syncope. I have confirmed and edited as necessary, the PFSH and ROS obtained by others. 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 Cardiomegaly History of cardioversion 2017 Hypothyroidism correction current use of antiarrhythmic drug Paroxysmal atrial fibrillation (HCC) PAST SURGICAL HISTORY Procedure Laterality Date ARTHROTOMY W/MENISCUS REPAIR KNEE Left 2004 CARDIOVERSION, ELECTIVE, ELECTRICAL 01/2018 LEFT HEART CATH,PERCUTANEOUS Left 2018 TOTAL KNEE REPLACEMENT SOCIAL HISTORY Social History Tobacco Use Smoking status: Never Smokeless tobacco: Never Substance Use Topics Alcohol use: Never Drug use: Never FAMILY HISTORY Problem Relation Age of Onset Hypertension Mother Lung Cancer Mother Ovarian cancer Mother Prostate Cancer Father ALLERGIES: ALLERGIES Allergen Reactions Atorvastatin Other: See Comments Elevated liver enzymes Ibuprofen Itching MEDICATIONS: SYNTHROID 125 mcg tablet omeprazole (PRILOSEC) 20 mg capsule Take 20 mg by mouth once daily. cholecalciferol, vitamin D3, (D3-50 CHOLECALCIFEROL ORAL) Take 50 mcg by mouth once daily. flecainide (TAMBOCOR) 100 mg tablet Take 100 mg by mouth two times a day. rivaroxaban (XARELTO) 20 mg tablet Take 20 mg by mouth daily with dinner. metoprolol succinate ER (TOPROL XL) 25 mg 24 hr tablet Take 25 mg by mouth once daily. losartan (COZAAR) 25 mg tablet Take 25 mg by mouth once daily. albuterol HFA (PROVENTIL HFA, VENTOLIN HFA) 90 mcg/actuation inhaler Inhale 2 Puffs as instructed every 4 hours as needed for Wheezing/Shortness of Breath. REVIEW OF SYSTEMS: Review of Systems Constitutional: Negative for chills, fever, malaise/fatigue and weight loss. Respiratory: Negative for cough, hemoptysis, sputum production, shortness of breath and wheezing. Cardiovascular: Negative for chest pain, palpitations, orthopnea, claudication, leg swelling and PND. Gastrointestinal: Negative for abdominal pain, blood in stool, melena, nausea and vomiting. Genitourinary: Negative for dysuria, flank pain and hematuria. Musculoskeletal: Negative for falls and myalgias. Skin: Negative for rash. Neurological: Negative for focal weakness, seizures and loss of consciousness. PHYSICAL EXAMINATION: BP 110/71 Pulse 68 Ht 6' 1.5" (1.87m) Wt 263 lb 6.4 oz (119.5kg) SpO2 95% BMI 34.28 kg/(m2). Physical Exam Vitals reviewed. Constitutional: General: He is not in acute distress. Appearance: Normal appearance. HENT: Head: Normocephalic and atraumatic. Cardiovascular: Rate and Rhythm: Normal rate and regular rhythm. Heart sounds: Normal heart sounds, S1 normal and S2 normal. No murmur heard. No friction rub. Pulmonary: Effort: Pulmonary effort is normal. No respiratory distress. Breath sounds: Normal breath sounds. No wheezing, rhonchi or rales. Musculoskeletal: Cervical back: Neck supple. Right lower leg: No edema. Left lower leg: No edema. Skin: General: Skin is warm and dry. Neurological: General: No focal deficit present. Mental Status: He is alert and oriented to person, place, and time. Psychiatric: Mood and Affect: Mood normal. (more content not included)...[facility]02-28-2024 History of Present illness Narrative* Danny Ramos MD - 09/06/2023 2:20 PM EST PRIMARY CARE PHYSICIAN: Kartik Miguel MD [facility] [address] [place] [address] REFERRING PHYSICIAN: Peyton Rucker [address] [facility] [address] [facility] [address] Patient Care Team: Roman Nichols CNP as PCP - General (Family Medicine) Peyton Rucker MD as Specialty Survey Coordinator (Cardiology) CHIEF COMPLAINT: Evaluation of arrhythmia HISTORY OF PRESENT ILLNESS: Mr. Mckeon is a 68 year old male who presents today for evaluation of arrhythmia. He states atrial fibrillation was diagnosed in 2018, had "wax build up" at the time, was seen by a nurse who diagnosedthe irregular rhythm. 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 Cardiac catheterization did not reveal substantial CAD. In January 2018 treated with amiodarone and Xarelto. Underwent electrical cardioversion 03/02/2018. Amiodarone discontinued in 2019, then the atrial fibrillation recurred. By then the cardiomyopathy had resolved, LVEF 50%. He was then treated with flecainide, the atrial fibrillation spontaneously converted back to sinus rhythm. No atrial fibrillation recurrence on the flecainide that he has been aware. When in atrial fibrillation, he has less energy, has fatigue, palpitationsor skipped beats, also exertional shortness of breath, effort intolerance. He denies chest pain, shortness of breath, orthopnea, palpitations, PND, lightheadedness or syncope. I have confirmed and edited as necessary, the PFSH and ROS obtained by others. 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 Cardiomegaly History of cardioversion 2017 Hypothyroidism correction current use of antiarrhythmic drug Paroxysmal atrial fibrillation (HCC) PAST SURGICAL HISTORY Procedure Laterality Date ARTHROTOMY W/MENISCUS REPAIR KNEE Left 2004 CARDIOVERSION, ELECTIVE, ELECTRICAL 01/2018 LEFT HEART CATH,PERCUTANEOUS Left 2018 TOTAL KNEE REPLACEMENT SOCIAL HISTORY Social History Tobacco Use Smoking status: Never Smokeless tobacco: Never Substance Use Topics Alcohol use: Never Drug use: Never FAMILY HISTORY Problem Relation Age of Onset Hypertension Mother Lung Cancer Mother Ovarian cancer Mother Prostate Cancer Father ALLERGIES: ALLERGIES Allergen Reactions Atorvastatin Other: See Comments Elevated liver enzymes Ibuprofen Itching MEDICATIONS: SYNTHROID 125 mcg tablet omeprazole (PRILOSEC) 20 mg capsule Take 20 mg by mouth once daily. cholecalciferol, vitamin D3, (D3-50 CHOLECALCIFEROL ORAL) Take 50 mcg by mouth once daily. flecainide (TAMBOCOR) 100 mg tablet Take 100 mg by mouth two times a day. rivaroxaban (XARELTO) 20 mg tablet Take 20 mg by mouth daily with dinner. metoprolol succinate ER (TOPROL XL) 25 mg 24 hr tablet Take 25 mg by mouth once daily. losartan (COZAAR) 25 mg tablet Take 25 mg by mouth once daily. albuterol HFA (PROVENTIL HFA, VENTOLIN HFA) 90 mcg/actuation inhaler Inhale 2 Puffs as instructed every 4 hours as needed for Wheezing/Shortness of Breath. REVIEW OF SYSTEMS: Review of Systems Constitutional: Negative for chills, fever, malaise/fatigue and weight loss. Respiratory: Negative for cough, hemoptysis, sputum production, shortness of breath and wheezing. Cardiovascular: Negative for chest pain, palpitations, orthopnea, claudication, leg swelling and PND. Gastrointestinal: Negative for abdominal pain, blood in stool, melena, nausea and vomiting. Genitourinary: Negative for dysuria, flank pain and hematuria. Musculoskeletal: Negative for falls and myalgias. Skin: Negative for rash. Neurological: Negative for focal weakness, seizures and loss of consciousness. PHYSICAL EXAMINATION: BP 110/71 Pulse 68 Ht 6' 1.5" (1.87m) Wt 263 lb 6.4 oz (119.5kg) SpO2 95% BMI 34.28 kg/(m^2). Physical Exam Vitals reviewed. Constitutional: General: He is not in acute distress. Appearance: Normal appearance. HENT: Head: Normocephalic and atraumatic. Cardiovascular: Rate and Rhythm: Normal rate and regular rhythm. Heart sounds: Normal heart sounds, S1 normal and S2 normal. No murmur heard. No friction rub. Pulmonary: Effort: Pulmonary effort is normal. No respiratory distress. Breath sounds: Normal breath sounds. No wheezing, rhonchi or rales. Musculoskeletal: Cervical back: Neck supple. Right lower leg: No edema. Left lower leg: No edema. Skin: General: Skin is warm and dry. Neurological: General: No focal deficit present. Mental Status: He is alert and oriented to person, place, and time. Psychiatric: Mood and Affect: Mood normal. Behavior: Behavior normal. Thought Content: Thought content normal. CARDIOVASCULAR MEDICINE TESTING: Electrocardiogram: Sinus rhythm 61 bpm; mild first-degree AV block (NM 208 ms); normal QRS [id number] ms; QTc 442 ms; conduction intervals and QTc appropriate on flecainide I have personally reviewed the Electrocardiogram. 1. 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 Encounter for monitoring flecainide therapy - ICD9: V58.83, V58.69, ICD10: Z51.81, Z79.899 4. At risk for stroke - ICD9: V15.89, ICD10: Z91.89 5. Anticoagulant long-term use - ICD9: V58.61, ICD10: Z79.01 6. Obesity, Class I, BMI 30-34.9 - ICD9: 278.00, ICD10: E66.9 CHADS2-Vasc Score Breakdown 2 Total Score 1 Age 65-74 years old 1 History of vascular disease IMPRESSION: Mr. Mckeon has a history of symptomatic paroxysmal atrial fibrillation. I had a detailed discussion with Mr. Mckeon regarding atrial fibrillation and its management. I reviewed the cornerstones or pillars of management including stroke prevention, ventricular response rate control, atrial rhythm control and patient modifiable risk factors and lifestyle changes relevant to atrial fibrillation. He has done well with flecainide antiarrhythmic drug therapy. It is very reasonable to continue with the current treatment strategy of antiarrhythmic drug (flecainide) along with stroke prevention with oral anticoagulation therapy. If things change we can consider either dosage increase or catheter ablation. Stroke prevention strategy would not be based upon perceived atrial fibrillation burden but instead is based upon stroke risk profile (such as [id number] score), so likely the recommendation will be for lifelong oral anticoagulation therapy. If he has an appropriate indication for left atrial appendage closure in the future (does not presently) he could be considered for such as an alternative to oral anticoagulation therapy. I had a detailed discussion with Mr. Mckeon regarding my evaluation and recommendations. After our discussion, Mr. Mckeon expressed his understanding and I answered all his questions to his apparent satisfaction. PLAN AND RECOMMENDATIONS: Continue with current plan of care from EP standpoint. If flecainide therapy fails he could be a good candidate for catheter ablation. Return if symptoms worsen or fail to improve. He will continue to follow up with [facility]. Danny Ramos MD 09/06/2023 Medical Decision Making: Problems: Moderate: 2+ stable chronic illnesses Data: Unique source(s) for external note(s) reviewed: 1 Unique test result(s) reviewed: 3+ Unique test(s) ordered: 1 Risk: Moderate: Moderate risk from testing/treatment, Drug management and Decision on minor surgery w/ risk factors Medical Decision Making Level: 4 - Moderate [facility] Nurse Note* Estefany Chahal MA - 09/06/2023 2:19 PM EST Patient denies cardiac complaints or symptoms. [facility] Anesthesiology Consult note Patient: NIYA MCKEON Age: 67 years Sex: Male : 1955 Associated Diagnoses: None Author: DEE DEE PRATT APRN-VERIFICATION LEAD Assessment Postanesthesia assessment Vitals: Vital signs from flowsheet : Vital Signs 05/24/2022 12:50 EST Heart Rate Monitored 56 bpm LOW Respiratory Rate 18 br/min Mean Arterial Pressure 79 mmHg Systolic Blood Pressure Non-Invasive 104 mmHg Diastolic Blood Pressure Non-Invasive 67 mmHg 05/24/2022 11:48 EST Heart Rate Monitored 59 bpm LOW Respiratory Rate 18 br/min Mean Arterial Pressure 80 mmHg Systolic Blood Pressure Non-Invasive 103 mmHg Diastolic Blood Pressure Non-Invasive 69 mmHg 05/24/2022 11:00 EST Heart Rate Monitored 54 bpm LOW Respiratory Rate 18 br/min Mean Arterial Pressure 84 mmHg Systolic Blood Pressure Non-Invasive 103 mmHg Diastolic Blood Pressure Non-Invasive 75 mmHg 05/24/2022 10:31 EST Heart Rate Monitored 57 bpm LOW Mean Arterial Pressure 82 mmHg Systolic Blood Pressure Non-Invasive 103 mmHg Diastolic Blood Pressure Non-Invasive 71 mmHg 05/24/2022 9:50 EST Heart Rate Monitored 57 bpm LOW Mean Arterial Pressure 83 mmHg Systolic Blood Pressure Non-Invasive 105 mmHg Diastolic Blood Pressure Non-Invasive 72 mmHg 05/24/2022 9:35 EST Heart Rate Monitored 57 bpm LOW Mean Arterial Pressure 79 mmHg Systolic Blood Pressure Non-Invasive 111 mmHg Diastolic Blood Pressure Non-Invasive 63 mmHg 05/24/2022 9:20 EST Heart Rate Monitored 57 bpm LOW Mean Arterial Pressure 80 mmHg Systolic Blood Pressure Non-Invasive 109 mmHg Diastolic Blood Pressure Non-Invasive 65 mmHg 05/24/2022 9:15 EST Heart Rate Monitored 59 bpm LOW 05/24/2022 9:10 EST Heart Rate Monitored 62 bpm Mean Arterial Pressure 80 mmHg Systolic Blood Pressure Non-Invasive 101 mmHg Diastolic Blood Pressure Non-Invasive 69 mmHg 05/24/2022 9:00 EST Heart Rate Monitored 59 bpm LOW Mean Arterial Pressure 78 mmHg Systolic Blood Pressure Non-Invasive 103 mmHg Diastolic Blood Pressure Non-Invasive 65 mmHg 05/24/2022 8:55 EST Temperature Temporal Artery 36.0 DegC Heart Rate Monitored 60 bpm Mean Arterial Pressure 72 mmHg Systolic Blood Pressure Non-Invasive 93 mmHg Diastolic Blood Pressure Non-Invasive 62 mmHg 05/24/2022 8:50 EST Heart Rate Monitored 63 bpm bpm Respiratory Rate - Anes 7 br/min br/min Systolic Blood Pressure Non-Invasive 99 mmHg mmHg Diastolic Blood Pressure Non-Invasive 56 mmHg mmHg 05/24/2022 8:45 EST Heart Rate Monitored 61 bpm bpm Respiratory Rate - Anes 8 br/min br/min Systolic Blood Pressure Non-Invasive 87 mmHg mmHg Diastolic Blood Pressure Non-Invasive 46 mmHg mmHg 05/24/2022 8:40 EST Heart Rate Monitored 61 bpm bpm Respiratory Rate - Anes 6 br/min br/min Systolic Blood Pressure Non-Invasive 89 mmHg mmHg Diastolic Blood Pressure Non-Invasive 49 mmHg mmHg 05/24/2022 8:35 EST Heart Rate Monitored 61 bpm bpm Respiratory Rate - Anes 8 br/min br/min Systolic Blood Pressure Non-Invasive 87 mmHg mmHg Diastolic Blood Pressure Non-Invasive 48 mmHg mmHg 05/24/2022 8:30 EST Heart Rate Monitored 62 bpm bpm Respiratory Rate - Anes 4 br/min br/min Systolic Blood Pressure Non-Invasive 89 mmHg mmHg Diastolic Blood Pressure Non-Invasive 54 mmHg mmHg 05/24/2022 8:25 EST Heart Rate Monitored 65 bpm bpm Respiratory Rate - Anes 4 br/min br/min Systolic Blood Pressure Non-Invasive 84 mmHg mmHg Diastolic Blood Pressure Non-Invasive 44 mmHg mmHg 05/24/2022 8:20 EST Heart Rate Monitored 65 bpm bpm Respiratory Rate - Anes 9 br/min br/min Systolic Blood Pressure Non-Invasive 88 mmHg mmHg Diastolic Blood Pressure Non-Invasive 47 mmHg mmHg 05/24/2022 8:15 EST Heart Rate Monitored 61 bpm bpm Respiratory Rate - Anes 7 br/min br/min Systolic Blood Pressure Non-Invasive 97 mmHg mmHg Diastolic Blood Pressure Non-Invasive 49 mmHg mmHg 05/24/2022 8:10 EST Heart Rate Monitored 63 bpm bpm Respiratory Rate - Anes 8 br/min br/min Systolic Blood Pressure Non-Invasive 81 mmHg mmHg Diastolic Blood Pressure Non-Invasive 43 mmHg mmHg 05/24/2022 8:05 EST Heart Rate Monitored 62 bpm bpm Respiratory Rate - Anes 8 br/min br/min Systolic Blood Pressure Non-Invasive 82 mmHg mmHg Diastolic Blood Pressure Non-Invasive 50 mmHg mmHg 05/24/2022 8:00 EST Heart Rate Monitored 60 bpm bpm Respiratory Rate - Anes 11 br/min br/min (Modified) Systolic Blood Pressure Non-Invasive 86 mmHg mmHg Diastolic Blood Pressure Non-Invasive 49 mmHg mmHg 05/24/2022 7:55 EST Heart Rate Monitored 62 bpm bpm Respiratory Rate - Anes 9 br/min br/min Systolic Blood Pressure Non-Invasive 93 mmHg mmHg Diastolic Blood Pressure Non-Invasive 51 mmHg mmHg 05/24/2022 7:50 EST Heart Rate Monitored 62 bpm bpm Respiratory Rate - Anes 8 br/min br/min Systolic Blood Pressure Non-Invasive 83 mmHg mmHg Diastolic Blood Pressure Non-Invasive 50 mmHg mmHg 05/24/2022 7:45 EST Heart Rate Monitored 59 bpm bpm Respiratory Rate - Anes 9 br/min br/min Systolic Blood Pressure Non-Invasive 84 mmHg mmHg Diastolic Blood Pressure Non-Invasive 48 mmHg mmHg 05/24/2022 7:40 EST Heart Rate Monitored 59 bpm bpm Respiratory Rate - Anes 7 br/min br/min Systolic Blood Pressure Non-Invasive 81 mmHg mmHg Diastolic Blood Pressure Non-Invasive 53 mmHg mmHg 05/24/2022 7:35 EST Heart Rate Monitored 60 bpm bpm Respiratory Rate - Anes 6 br/min br/min Systolic Blood Pressure Non-Invasive 89 mmHg mmHg Diastolic Blood Pressure Non-Invasive 54 mmHg mmHg 05/24/2022 7:30 EST Heart Rate Monitored 55 bpm bpm Respiratory Rate - Anes 8 br/min br/min Systolic Blood Pressure Non-Invasive 91 mmHg mmHg Diastolic Blood Pressure Non-Invasive 56 mmHg mmHg 05/24/2022 7:25 EST Heart Rate Monitored 56 bpm bpm Respiratory Rate - Anes 10 br/min br/min (Modified) Systolic Blood Pressure Non-Invasive 94 mmHg mmHg Diastolic Blood Pressure Non-Invasive 57 mmHg mmHg 05/24/2022 7:20 EST Heart Rate Monitored 56 bpm bpm Respiratory Rate - Anes 9 br/min br/min Systolic Blood Pressure Non-Invasive 97 mmHg mmHg Diastolic Blood Pressure Non-Invasive 62 mmHg mmHg 05/24/2022 7:15 EST Heart Rate Monitored 57 bpm bpm Respiratory Rate - Anes 11 br/min br/min (Modified) Systolic Blood Pressure Non-Invasive 110 mmHg mmHg Diastolic Blood Pressure Non-Invasive 76 mmHg mmHg 05/24/2022 7:10 EST Respiratory Rate - Anes 8 br/min br/min (Modified) Systolic Blood Pressure Non-Invasive 104 mmHg mmHg Diastolic Blood Pressure Non-Invasive 79 mmHg mmHg 05/24/2022 5:54 EST Temperature Temporal Artery 36.1 DegC Apical Heart Rate 53 bpm LOW Respiratory Rate 14 br/min Systolic BP Left Arm 122 mmHg Diastolic BP Left Arm 89 mmHg Systolic Blood Pressure Non-Invasive 122 mmHg Diastolic Blood Pressure Non-Invasive 89 mmHg . Mental status: at preoperative baseline. Respiratory function: lungs are clear to auscultation, respirations are non-labored. Respiratory support: none. CV function: Normal rate, Regular rhythm. Cardiovascular support: none. Pain: Quality aching, Post op control oral analgesic. Nausea status: denies nausea. Postoperative hydration status: within normal limits. Digitally Signed by DEE DEE PRATT on 05/24/2022 01:35 PM [facility]11-15-2022 Hospital Discharge instructions Patient Education 05/24/2022 09:21:50 Total Knee Replacement, Care After, Sihe-[id number] Total Knee Replacement, Care After This sheet gives you information about how to care for yourself after your procedure. Your doctor may also give you more specific instructions. If you have problems or questions, contact your doctor. What can I expect after the procedure? After the procedure, it is common to have: Pain. Swelling. A small amount of blood coming from your cut from surgery (incision). Clear fluid coming from your cut from surgery. Limited movement of your knee. Follow these instructions at home: Medicines Take apgn-ahj-zebjaof and prescription medicines only as told by your doctor. If you were prescribed a blood thinner (anticoagulant), take it as told by your doctor. Ask your doctor if the medicine prescribed to you: ?Requires you to avoid driving or using heavy machinery. ?Can cause trouble pooping (constipation). You may need to take steps to prevent or treat trouble pooping: ?Drink enough fluid to keep your pee (urine) pale yellow. ?Take pgcp-rhs-borqirh or prescription medicines. ?Eat foods that are high in fiber. These include beans, whole grains, and fresh fruits and vegetables. ?Limit foods that are high in fat and sugar. These include fried or sweet foods. Bathing Do not take baths, swim, or use a hot tub until your doctor approves. Ask your doctor if you may take showers. You may only be allowed to take sponge baths. Keep your bandage (dressing) dry until your doctor says it can be taken off. Incision care and drain care Follow instructions from your doctor about how to take care of your cut from surgery. Make sure you: ?Wash your hands with soap and water before and after you change your bandage. If you cannot use soap and water, use hand burr grinder. ?Change your bandage as told by your doctor. ?Leave stitches (sutures), skin glue, or skin tape (adhesive) strips in place. They may need to stay in place for 2 weeks or longer. If tape strips get loose and curl up, you may trim the loose edges. Do not remove tape strips completely unless your doctor says it is okay. Check your cut from surgery and your drain site every day for signs of infection. Check for: ?More redness, swelling, or pain. ?More fluid or blood. ?Warmth. ?Pus or a bad smell. If you have a drain, follow instructions from your doctor about caring for it. Managing pain, stiffness, and swelling If told, put ice on your knee. ?Put ice in a plastic bag or use the icing device (cold flow pad or cryocuff) that you were given. Follow your doctor's directions about how to use the icing device. ?Place a towel between your skin and the bag or between your skin and the icing device. ?Leave the ice on for 20 minutes, 2 3 times per day. If told, put heat on your knee before you exercise. Use the heat source that your doctor recommends, such as a moist heat pack or a heating pad. ?Place a towel between your skin and the heat source. ?Leave the heat on for 20 30 minutes. ?Remove the heat if your skin turns bright red. This is very important if you are unable to feel pain, heat, or cold. You may have a greater risk of getting burned. Move your toes often. Raise (elevate) your knee above the level of your heart while you are sitting or lying down. ?Use several pillows to keep your leg straight. ?Do not put a pillow just under the knee. If the knee is bent for a long time, this may make the knee stiff. Wear elastic knee support as told by your doctor. Activity Rest as told by your doctor. Do not sit for a long time without moving. Get up to take short walks every 1 2 hours. This is important. Ask for help if you feel weak or unsteady. Ask your doctor what activities are safe for you. Avoid activities that put stress on your knees. These include running, jumping rope, and jumping jacks. Do not play contact sports until your doctor says it is okay. Do exercises as told by your physical therapist. If you have been sent home with a knee joint motion machine (continuous passive motion machine), use it as told by your doctor. Safety Do not use your leg to support your body weight until your doctor says that you can. Use crutches or a walker as told by your doctor. Do not drive until your doctor says it is okay. Ask your doctor when it is safe to drive. General instructions Do not use any products that contain nicotine or tobacco, such as cigarettes, e- cigarettes, and chewing tobacco. These can delay healing. If you need help quitting, ask your doctor. Wear special socks (compression stockings) as told by your doctor. Tell your doctor if you plan to have dental work. Also: ?Tell your dentist about your joint replacement. ?Ask your doctor if there are instructions you need to follow before dental care and routine cleanings. Keep all follow-up visits as told by your doctor. This is important. Contact a doctor if: You have more redness, swelling, or pain around your cut from surgery or your drain. You have more fluid or blood coming from your cut from surgery or your drain. You have pus or a bad smell coming from your cut from surgery or your drain. Your cut from surgery or your drain area feels warm to the touch. You have a fever. Your cut breaks open. You have knee pain that does not go away. The movement of your knee is getting worse. Your new joint feels loose. Get help right away if you have: Pain in your calf or thigh. Swelling in your calf or thigh. Shortness of breath. Trouble breathing. Chest pain. Summary After the procedure, it is common to have pain and swelling, blood or fluid coming from your cut from surgery, and trouble moving your knee. Follow instructions from your doctor about how to take care of your cut from surgery. Use crutches or a walker as told by your doctor. If you were prescribed a blood thinner, take it as told by your doctor. Keep all follow-up visits as told by your doctor. This is important. This information is not intended to replace advice given to you by your health care provider. Make sure you discuss any questions you have with your health care provider. Document Released: 09/17/2012 Document Revised: 11/04/2019 Document Reviewed: 02/07/2019 [employer] Patient Education 2020 [employer]. 05/24/2022 09:21:46 Monitored Anesthesia Care, Care After Monitored Anesthesia Care, Care After These instructions provide you with information about caring for yourself after your procedure. Your health care provider may also give you more specific instructions. Your treatment has been plannedaccording to current medical practices, but problems sometimes occur. Call your health care provider if you have any problems or questions after your procedure. What can I expect after the procedure? After your procedure, you may: Feel sleepy for several hours. Feel clumsy and have poor balance for several hours. Feel forgetful about what happened after the procedure. Have poor judgment for several hours. Feel nauseous or vomit. Have a sore throat if you had a breathing tube during the procedure. Follow these instructions at home: For at least 24 hours after the procedure: Have a responsible adult stay with you. It is important to have someone help care for you until youare awake and alert. Rest as needed. Do not: ?Participate in activities in which you could fall or become injured. ?Drive. ?Use heavy machinery. ?Drink alcohol. ?Take sleeping pills or medicines that cause drowsiness. ?Make important decisions or sign legal documents. ?Take care of children on your own. Eating and drinking Follow the diet that is recommended by your health care provider. If you vomit, drink water, juice, or soup when you can drink without vomiting. Make sure you have little or no nausea before eating solid foods. General instructions Take dwlf-cay-fmrvhxk and prescription medicines only as told by your health care provider. If you have sleep apnea, surgery and certain medicines can increase your risk for breathing problems. Follow instructions from your health care provider about wearing your sleep device: ?Anytime you are sleeping, including during daytime naps. ?While taking prescription pain medicines, sleeping medicines, or medicines that make you drowsy. If you smoke, do not smoke without supervision. Keep all follow-up visits as told by your health care provider. This is important. Contact a health care provider if: You keep feeling nauseous or you keep vomiting. You feel light-headed. You develop a rash. You have a fever. Get help right away if: You have trouble breathing. Summary For several hours after your procedure, you may feel sleepy and have poor judgment. Have a responsible adult stay with you for at least 24 hours or until you are awake and alert. This information is not intended to replace advice given to you by your health care provider. Make sure you discuss any questions you have with your health care provider. Document Released: 10/16/2016 Document Revised: 09/24/2018 Document Reviewed: 10/16/2016 [employer] Patient Education 2020 [employer]. 05/24/2022 09:21:45 Nausea and Vomiting, Adult, Fvuq-zo-Seoo Nausea and Vomiting, Adult Nausea is feeling sick to your stomach or feeling that you are about to throw up (vomit). Vomiting is when food in your stomach is thrown up and out of the mouth. Throwing up can make you feel weak. It can also make you lose too much water in your body (get dehydrated). If you lose too much water in your body, you may: Feel tired. Feel thirsty. Have a dry mouth. Have cracked lips. Go pee (urinate) less often. Older adults and people with other diseases or a weak body defense system (immune system) are at higher risk for losing too much water in the body. If you feel sick to your stomach and you throw up, it is important to follow instructions from your doctor about how to take care of yourself. Follow these instructions at home: Watch your symptoms for any changes. Tell your doctor about them. Follow these instructions to carefor yourself at home. Eating and drinking Take an ORS (oral rehydration solution). This is a drink that is sold at pharmacies and stores. Drink clear fluids in small amounts as you are able, such as: ?Water. ?Ice chips. ?Fruit juice that has water added (diluted fruit juice). ?Low-calorie sports drinks. Eat bland, xzik-uv-ydbbhr foods in small amounts as you are able, such as: ?Bananas. ?Applesauce. ?Rice. ?Low-fat (lean) meats. ?[place]. ?Crackers. Avoid drinking fluids that have a lot of sugar or caffeine in them. This includes energy drinks, sports drinks, and soda. Avoid alcohol. Avoid spicy or fatty foods. General instructions Take ywty-dii-clcnzyv and prescription medicines only as told by your doctor. Drink enough fluid to keep your pee (urine) pale yellow. Wash your hands often with soap and water. If you cannot use soap and water, use hand burr grinder. Make sure that all people in your home wash their hands well and often. Rest at home while you get better. Watch your condition for any changes. Take slow and deep breaths when you feel sick to your stomach. Keep all follow-up visits as told by your doctor. This is important. Contact a doctor if: Your symptoms get worse. You have new symptoms. You have a fever. You cannot drink fluids without throwing up. You feel sick to your stomach for more than 2 days. You feel light-headed or dizzy. You have a headache. You have muscle cramps. You have a rash. You have pain while peeing. Get help right away if: You have pain in your chest, neck, arm, or jaw. You feel very weak or you pass out (faint). You throw up again and again. You have throw up that is bright red or looks like black coffee grounds. You have bloody or black poop (stools) or poop that looks like tar. You have a very bad headache, a stiff neck, or both. You have very bad pain, cramping, or bloating in your belly (abdomen). You have trouble breathing. You are breathing very quickly. Your heart is beating very quickly. Your skin feels cold and clammy. You feel confused. You have signs of losing too much water in your body, such as: ?Dark pee, very little pee, or no pee. ?Cracked lips. ?Dry mouth. ?Sunken eyes. ?Sleepiness. ?Weakness. These symptoms may be an emergency. Do not wait to see if the symptoms will go away. Get medical help right away. Call your local emergency services (911 in the [place] Do not drive yourself to the hospital. Summary Nausea is feeling sick to your stomach or feeling that you are about to throw up (vomit). Vomiting is when food in your stomach is thrown up and out of the mouth. Follow instructions from your doctor about eating and drinking to keep from losing too much water in your body. Take kwhx-wey-gvhwock and prescription medicines only as told by your doctor. Contact your doctor if your symptoms get worse or you have new symptoms. Keep all follow-up visits as told by your doctor. This is important. This information is not intended to replace advice given to you by your health care provider. Make sure you discuss any questions you have with your health care provider. Document Released: 12/12/2008 Document Revised: 10/18/2019 Document Reviewed: 12/04/2018 [employer] Patient Education 2020 [employer]. Follow Up Care 03/16/2022 11:19:21 With:USHA PATTON Address: [facility] [address] [place] [id number] Business (1) When: Unknown Comments:06/06/22 @3:45PM [facility] 11-15-2022 Summary of episode note Discharge Instructions Thank you for allowing [facility] to assist you with your healthcare needs. The following is importantdischarge information regarding your hospital visit. Your Care Team ROMAN NICHOLS DR Your Diagnosis RIGHT TOTAL KNEE ARTHROPLASTY What to do next Instructions From Your Doctor FOLLOW INSTRUCTION SHEET PROVIDED Scheduled Follow-Up Appointments PHYSICAL THERAPY 05/26/22 @ 4:00PM Follow Up Appointments Follow Up with USHA PATTON When Why: 06/06/22 @3:45PM Where: [facility] [address] [place] [address]- Business (1) Allergies ibuprofen (Itching) Medications Please ask your primary doctor or pharmacist before taking any other medication not listed, including over the counter drugs, herbal medications, vitamins and or supplements as they may interact withyour home medications. What How Much When Instructions Last Dose Unchanged cholecalciferol (Vitamin D3) 125 Microgram by mouth Once a day Unchanged flecainide (flecainide 100 mg oral tablet) 1 tab(s) by mouth Every 12 hours Unchanged levothyroxine (Synthroid 125 mcg (0.125 mg) oral tablet) 1 tab(s) by mouth Once a day Unchanged losartan (losartan 25 mg oral tablet) 1 tab(s) by mouth Once a day Unchanged metoprolol (Metoprolol Succinate ER 25 mg oral TABLET extended release) 1 tab(s) by mouth Once a day Unchanged omeprazole 20 Milligram by mouth Once a day Unchanged rivaroxaban (Xarelto 20 mg oral tablet) 1 tab(s) by mouth Daily at bedtime Please take this list to your next doctor s visit. Bring all medications you take, including over the counter medications, herbals and other supplements with you to your doctor s visit. Patients and families are reminded to discard old lists and to update any records with all medication providers or retail pharmacies. Education Materials Total Knee Replacement, Care After This sheet gives you information about how to care for yourself after your procedure. Your doctor may also give you more specific instructions. If you have problems or questions, contact your doctor. What can I expect after the procedure? After the procedure, it is common to have: Pain. Swelling. A small amount of blood coming from your cut from surgery (incision). Clear fluid coming from your cut from surgery. Limited movement of your knee. Follow these instructions at home: Medicines Take tbto-fgu-vynhsfl and prescription medicines only as told by your doctor. If you were prescribed a blood thinner (anticoagulant), take it as told by your doctor. Ask your doctor if the medicine prescribed to you: ? Requires you to avoid driving or using heavy machinery. ? Can cause trouble pooping (constipation). You may need to take steps to prevent or treat trouble pooping: ? Drink enough fluid to keep your pee (urine) pale yellow. ? Take efqg-vpj-wftrdkq or prescription medicines. ? Eat foods that are high in fiber. These include beans, whole grains, and fresh fruits and vegetables. ? Limit foods that are high in fat and sugar. These include fried or sweet foods. Bathing Do not take baths, swim, or use a hot tub until your doctor approves. Ask your doctor if you may take showers. You may only be allowed to take sponge baths. Keep your bandage (dressing) dry until your doctor says it can be taken off. Incision care and drain care Follow instructions from your doctor about how to take care of your cut from surgery. Make sure you: ? Wash your hands with soap and water before and after you change your bandage. If you cannot use soap and water, use hand burr grinder. ? Change your bandage as told by your doctor. ? Leave stitches (sutures), skin glue, or skin tape (adhesive) strips in place. They may need to stayin place for 2 weeks or longer. If tape strips get loose and curl up, you may trim the loose edges.Do not remove tape strips completely unless your doctor says it is okay. Check your cut from surgery and your drain site every day for signs of infection. Check for: ? More redness, swelling, or pain. ? More fluid or blood. ? Warmth. ? Pus or a bad smell. If you have a drain, follow instructions from your doctor about caring for it. Managing pain, stiffness, and swelling If told, put ice on your knee. ? Put ice in a plastic bag or use the icing device (cold flow pad or cryocuff) that you were given. Follow your doctor's directions about how to use the icing device. ? Place a towel between your skin and the bag or between your skin and the icing device. ? Leave the ice on for 20 minutes, 2 3 times per day. If told, put heat on your knee before you exercise. Use the heat source that your doctor recommends, such as a moist heat pack or a heating pad. ? Place a towel between your skin and the heat source. ? Leave the heat on for 20 30 minutes. ? Remove the heat if your skin turns bright red. This is very important if you are unable to feel pain, heat, or cold. You may have a greater risk of getting burned. Move your toes often. Raise (elevate) your knee above the level of your heart while you are sitting or lying down. ? Use several pillows to keep your leg straight. ? Do not put a pillow just under the knee. If the knee is bent for a long time, this may make the knee stiff. Wear elastic knee support as told by your doctor. Activity Rest as told by your doctor. Do not sit for a long time without moving. Get up to take short walks every 1 2 hours. This is important. Ask for help if you feel weak or unsteady. Ask your doctor what activities are safe for you. Avoid activities that put stress on your knees. These include running, jumping rope, and jumping jacks. Do not play contact sports until your doctor says it is okay. Do exercises as told by your physical therapist. If you have been sent home with a knee joint motion machine (continuous passive motion machine), use it as told by your doctor. Safety Do not use your leg to support your body weight until your doctor says that you can. Use crutches or a walker as told by your doctor. Do not drive until your doctor says it is okay. Ask your doctor when it is safe to drive. General instructions Do not use any products that contain nicotine or tobacco, such as cigarettes, e- cigarettes, and chewing tobacco. These can delay healing. If you need help quitting, ask your doctor. Wear special socks (compression stockings) as told by your doctor. Tell your doctor if you plan to have dental work. Also: ? Tell your dentist about your joint replacement. ? Ask your doctor if there are instructions you need to follow before dental care and routine cleanings. Keep all follow-up visits as told by your doctor. This is important. Contact a doctor if: You have more redness, swelling, or pain around your cut from surgery or your drain. You have more fluid or blood coming from your cut from surgery or your drain. You have pus or a bad smell coming from your cut from surgery or your drain. Your cut from surgery or your drain area feels warm to the touch. You have a fever. Your cut breaks open. You have knee pain that does not go away. The movement of your knee is getting worse. Your new joint feels loose. Get help right away if you have: Pain in your calf or thigh. Swelling in your calf or thigh. Shortness of breath. Trouble breathing. Chest pain. Summary After the procedure, it is common to have pain and swelling, blood or fluid coming from your cut from surgery, and trouble moving your knee. Follow instructions from your doctor about how to take care of your cut from surgery. Use crutches or a walker as told by your doctor. If you were prescribed a blood thinner, take it as told by your doctor. Keep all follow-up visits as told by your doctor. This is important. This information is not intended to replace advice given to you by your health care provider. Make sure you discuss any questions you have with your health care provider. Document Released: 09/17/2012 Document Revised: 11/04/2019 Document Reviewed: 02/07/2019 [employer] Patient Education 2020 [employer] Monitored Anesthesia Care, Care After These instructions provide you with information about caring for yourself after your procedure. Your health care provider may also give you more specific instructions. Your treatment has been plannedaccording to current medical practices, but problems sometimes occur. Call your health care provider if you have any problems or questions after your procedure. What can I expect after the procedure? After your procedure, you may: Feel sleepy for several hours. Feel clumsy and have poor balance for several hours. Feel forgetful about what happened after the procedure. Have poor judgment for several hours. Feel nauseous or vomit. Have a sore throat if you had a breathing tube during the procedure. Follow these instructions at home: For at least 24 hours after the procedure: Have a responsible adult stay with you. It is important to have someone help care for you until youare awake and alert. Rest as needed. Do not: ? Participate in activities in which you could fall or become injured. ? Drive. ? Use heavy machinery. ? Drink alcohol. ? Take sleeping pills or medicines that cause drowsiness. ? Make important decisions or sign legal documents. ? Take care of children on your own. Eating and drinking Follow the diet that is recommended by your health care provider. If you vomit, drink water, juice, or soup when you can drink without vomiting. Make sure you have little or no nausea before eating solid foods. General instructions Take jtwj-wnw-nlgnqpv and prescription medicines only as told by your health care provider. If you have sleep apnea, surgery and certain medicines can increase your risk for breathing problems. Follow instructions from your health care provider about wearing your sleep device: ? Anytime you are sleeping, including during daytime naps. ? While taking prescription pain medicines, sleeping medicines, or medicines that make you drowsy. If you smoke, do not smoke without supervision. Keep all follow-up visits as told by your health care provider. This is important. Contact a health care provider if: You keep feeling nauseous or you keep vomiting. You feel light-headed. You develop a rash. You have a fever. Get help right away if: You have trouble breathing. Summary For several hours after your procedure, you may feel sleepy and have poor judgment. Have a responsible adult stay with you for at least 24 hours or until you are awake and alert. This information is not intended to replace advice given to you by your health care provider. Make sure you discuss any questions you have with your health care provider. Document Released: 10/16/2016 Document Revised: 09/24/2018 Document Reviewed: 10/16/2016 [employer] Patient Education 2020 [employer]. Nausea and Vomiting, Adult Nausea is feeling sick to your stomach or feeling that you are about to throw up (vomit). Vomiting is when food in your stomach is thrown up and out of the mouth. Throwing up can make you feel weak. It can also make you lose too much water in your body (get dehydrated). If you lose too much water in your body, you may: Feel tired. Feel thirsty. Have a dry mouth. Have cracked lips. Go pee (urinate) less often. Older adults and people with other diseases or a weak body defense system (immune system) are at higher risk for losing too much water in the body. If you feel sick to your stomach and you throw up, it is important to follow instructions from your doctor about how to take care of yourself. Follow these instructions at home: Watch your symptoms for any changes. Tell your doctor about them. Follow these instructions to carefor yourself at home. Eating and drinking Take an ORS (oral rehydration solution). This is a drink that is sold at pharmacies and stores. Drink clear fluids in small amounts as you are able, such as: ? Water. ? Ice chips. ? Fruit juice that has water added (diluted fruit juice). ? Low-calorie sports drinks. Eat bland, tywi-uy-tlhnig foods in small amounts as you are able, such as: ? Bananas. ? Applesauce. ? Rice. ? Low-fat (lean) meats. ? [place]. ? Crackers. Avoid drinking fluids that have a lot of sugar or caffeine in them. This includes energy drinks, sports drinks, and soda. Avoid alcohol. Avoid spicy or fatty foods. General instructions Take asgi-sdl-dabbalx and prescription medicines only as told by your doctor. Drink enough fluid to keep your pee (urine) pale yellow. Wash your hands often with soap and water. If you cannot use soap and water, use hand burr grinder. Make sure that all people in your home wash their hands well and often. Rest at home while you get better. Watch your condition for any changes. Take slow and deep breaths when you feel sick to your stomach. Keep all follow-up visits as told by your doctor. This is important. Contact a doctor if: Your symptoms get worse. You have new symptoms. You have a fever. You cannot drink fluids without throwing up. You feel sick to your stomach for more than 2 days. You feel light-headed or dizzy. You have a headache. You have muscle cramps. You have a rash. You have pain while peeing. Get help right away if: You have pain in your chest, neck, arm, or jaw. You feel very weak or you pass out (faint). You throw up again and again. You have throw up that is bright red or looks like black coffee grounds. You have bloody or black poop (stools) or poop that looks like tar. You have a very bad headache, a stiff neck, or both. You have very bad pain, cramping, or bloating in your belly (abdomen). You have trouble breathing. You are breathing very quickly. Your heart is beating very quickly. Your skin feels cold and clammy. You feel confused. You have signs of losing too much water in your body, such as: ? Dark pee, very little pee, or no pee. ? Cracked lips. ? Dry mouth. ? Sunken eyes. ? Sleepiness. ? Weakness. These symptoms may be an emergency. Do not wait to see if the symptoms will go away. Get medical help right away. Call your local emergency services (911 in the [place] Do not drive yourself to the hospital. Summary Nausea is feeling sick to your stomach or feeling that you are about to throw up (vomit). Vomiting is when food in your stomach is thrown up and out of the mouth. Follow instructions from your doctor about eating and drinking to keep from losing too much water in your body. Take ntbl-bjt-dfrtydo and prescription medicines only as told by your doctor. Contact your doctor if your symptoms get worse or you have new symptoms. Keep all follow-up visits as told by your doctor. This is important. This information is not intended to replace advice given to you by your health care provider. Make sure you discuss any questions you have with your health care provider. Document Released: 12/12/2008 Document Revised: 10/18/2019 Document Reviewed: 12/04/2018 [employer] Patient Education 2020 [employer] Additional Information VACCINATE! IT SAVES LIVES! Members of the community who have not yet received the COVID-19 vaccine and would like to receive it can visit one of [facility] vaccine clinics. There are many vaccine clinic locations within the [facility]. For locations and available times, please visit [email or web address] It is important to note that some COVID mobile vaccine clinics are held outdoors and may be canceled in rainy or stormy conditions. To learn more about pediatric vaccinations (ages 5-11), we invite you to visit the [facility] webpage. [email or web address] [email or web address] learn more about the COVID-19 vaccine, we invite you to visit the [employer] website for a list of frequently asked questions. [email or web address] [facility] Patient Portal Access Instructions: Stay connected with your healthcare team and access your personal medical information anytime with the [email or web address] Patient Portal.If you would like a full copy of your medical records, please contact the [facility] Medical Records Department, Monday through Monday between 8a.m. and 4:30p.m. Please follow the directions below to access the portal: 1.Access the email account you provided upon registration to the [facility].2.Look for an invitation email from [facility].3.Open the email and access the invitation link: Accept Invitation to [facility]4.Fill in the required jefferson to create your account. Sign into [email or web address] with your username and password that you created in the above steps to stay up to date. You can then view a summary of results, a summary of your visits, and the ability to download your summaries to your computer or send the information securely to a physician. Remember that your healthcare information is confidential, so carefully consider who you will allow to register on the [facility] [employer] Patient Portal for access to your information. You can also access the [email or web address] Patient Portal on the [employer]. Simply click on "Health Records" under "[employer]" and then click on the Marisa logo. HOW TO SAFELY DISPOSE OF PRESCRIPTION MEDICATIONS Please use one of the following methods to safely dispose of your unused medications. 1.Use a drug disposal kit: the drug disposal pouch allows you to safely discard your old and unuseddrugs. Ask your nurse to give you one when you are discharged.2.Visit a local take-back location: Many local pharmacies and police departments have programs that collect old and unwanted prescriptiondrugs. Call your local pharmacy or go to http://bit.ly/4Z6Ve1b to find one close to you.3.Make use of household items: Use cat litter or old coffee grounds to dispose medications if other options arenot available. Mix your drugs with these household products, seal them in an airtight container andthrow it into the garbage. Call [facility]: [phone] to be sure your drugs can be disposed of in this way. Some medicines may require a different approach.4.Never flush your medications down the toilet. IF YOU HAVE BEEN PRESCRIBED AN OPIOID FOR PAIN If you have been prescribed an opioid (such as hydrocodone, oxycodone or morphine), it is critical to understand the possible side effects and risks of opioid pain medications. Even when taken as directed, opioids can have several side effects including: Tolerance, meaning you might need to take more of a medication for the same pain relief. Nausea, vomiting and/or constipation. Sleepiness, dizziness, dry mouth, confusion, depression or itching. Physical dependence, meaning you have withdrawal symptoms when a medication is stopped, can develop within a few days. KNOW YOUR RESPONSIBILITIES It is important to know exactly how much and how often to take the opioid pain medications you are prescribed. Never take opioids in higher amounts or more often than prescribed. Do not combine opioids with alcohol or other drugs that cause drowsiness, such as benzodiazepines, also known as benzos, including diazepam and alprazolam, muscle relaxants or sleep aids. Never sell or share prescription opioids. This is illegal. Store opioids in a secure place and out of reach of others (including children, family, friends and visitors). The last page of this document has been signed and retained as a CHART COPY. Signatures Patient Education Materials Total Knee Replacement, Care After, Whvp-zv-Cnna Monitored Anesthesia Care, Care After Nausea and Vomiting, Adult, Aysj-pd-Gtlk Medication Leaflets My discharge plan and instructions have been reviewed and explained to me and I,NIYA MCKEON understand my current condition and have read and understand these discharge instructions. I have received a written copy of the plan/instructions. If I have questions, I am aware that I should contact my doctor. 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 The components appear well seated and intact. No acute fracture or dislocation. Gas and fluid in the soft tissues may be related to media postoperative state. Surgical isiah overlie the skin anteriorly. IMPRESSION: Surgical changes. Interpreted by: Hodan Gordillo MD Preliminary Report By: Hodan Gordillo MD Electronically signed By Hodan Gordillo MD Dictated Date: 05/24/2022 9:13:34 AM Prelim Date: 05/24/2022 9:14:29 AM Sign Date: 05/24/2022 9:14:29 AM Ordering Provider: [facility]11-15-2022 Note ORIGINAL EXAMINATION: TWO XRAY VIEWS OF THE RIGHT KNEE 05/24/2022 9:12 am COMPARISON: None HISTORY: ORDERING SYSTEM PROVIDED HISTORY: Reason for Exam: Status Post Arthroplasty FINDINGS: A complete knee prosthesis is identified. The components appear well seated and intact. No acute fracture or dislocation. Gas and fluid in the soft tissues may be related to media postoperative state. Surgical isiah overlie the skin anteriorly. IMPRESSION: Surgical changes. Interpreted by: Hodan Gordillo MD Preliminary Report By: Hodan Gordillo MD Electronically signed By Hodan Gordillo MD Dictated Date: 05/24/2022 9:13:34 AM Prelim Date: 05/24/2022 9:14:29 AM Sign Date: 05/24/2022 9:14:29 AM Ordering Provider: [facility]11-15-2022 Anesthesiology Consult note Patient: NIYA MCKEON Age: 67 years Sex: Male : 1955 Associated Diagnoses: None Author: DEE DEE PRATT Preoperative Information Anesthesia history Patient's history: negative. Family's history: negative. Health Status Allergies: Allergic Reactions (Selected) Severity Not Documented Ibuprofen- Itching., Allergies (1) ActiveReaction ibuprofenItching Current medications: (Selected) Inpatient Medications Ordered Betadine 10% topical solution: 17.5 mL, mL/hr, Topical (INT), PREOP pharm Decadron: 10 mg, 1 mL, IV Push, AsDirected Kefzol: 2 gram(s), 200 mL/hr, IV Piggyback, PREOP pharm LR 1,000 mL: 125 mL/hr, Intravenous, Stop: 05/24/22 23:59:00 EST Naropin 25 mg + Toradol 15 mg + EPINEPHrine 1 mg/mL injectable solution 0.3 mg + morphine 2.5 mg...: 25 mg, 5 mL, mL/hr, Other, PREOP pharm Naropin 25 mg + Toradol 15 mg + EPINEPHrine 1 mg/mL injectable solution 0.3 mg + morphine 2.5 mg...: 25 mg, 5 mL, mL/hr, Other, PREOP pharm tranexamic acid 1 g / 100 mL 0.7% NaCl PMX: 1 gram(s), 100 mL, 300 mL/hr, IV Piggyback, AsDirected tranexamic acid 1 g / 100 mL 0.7% NaCl PMX: 1 gram(s), 100 mL, 300 mL/hr, IV Piggyback, AsDirected Documented Medications Documented Metoprolol Succinate ER 25 mg oral TABLET extended release: 25 mg, 1 tab(s), Oral, qDay, 90 tab(s),0 Refill(s) Synthroid 125 mcg (0.125 mg) oral tablet: 125 mcg, 1 tab(s), Oral, qDay, 30 tab(s), 0 Refill(s) Vitamin D3: 125 mcg, Oral, qDay, 0 Refill(s) Xarelto 20 mg oral tablet: 20 mg, 1 tab(s), Oral, qHS, 30 tab(s), 0 Refill(s) flecainide 100 mg oral tablet: 100 mg, 1 tab(s), Oral, q12hr, 180 tab(s), 0 Refill(s) losartan 25 mg oral tablet: 25 mg, 1 tab(s), Oral, qDay, 30 tab(s), 0 Refill(s) omeprazole: 20 mg, Oral, qDay, 0 Refill(s), Medications (8) Active Scheduled: (7) ceFAZolin 2 gram(s), IV Piggyback, PREOP pharm dexamethasone 10 mg/mL (1mL) SDV 10 mg 1 mL, IV Push, AsDirected povidone iodine topical 17.5 mL, Topical (INT), PREOP pharm ropivacaine 25 mg + ketorolac 15 mg + epinephrine 0.3 mg + morphine 2.5 mg 25 mg 5 mL, Other, PREOPpharm ropivacaine 25 mg + ketorolac 15 mg + epinephrine 0.3 mg + morphine 2.5 mg 25 mg 5 mL, Other, PREOPpharm tranexamic acid PMX 1 gram(s) 100 mL, IV Piggyback, AsDirected tranexamic acid PMX 1 gram(s) 100 mL, IV Piggyback, AsDirected Continuous: (1) Lactated Ringers 1,000 mL 1,000 mL, Intravenous, 125 mL/hr PRN: (0) Problem list: Active Problems (4) Atrial fibrillation GERD (gastroesophageal reflux disease) Hypothyroid Osteoarthritis Histories Past Medical History: No active or resolved past medical history items have been selected or recorded. Family History: Entire family history is negative. Procedure history: Arthroscopy of knee joint ([id number]). Comments: 08/17/2021 8:33 Radha Galvez RN left Bone spur of left elbow ([id number]). Colonoscopy ([id number]). Cardioversion ([id number]). Social History Social & Psychosocial Habits Alcohol 08/17/2021 Use: Never Substance Abuse 08/17/2021 Use: Never Tobacco 08/17/2021 Tobacco Use: Never (less than 100 in l Home/Environment 08/17/2021 Domestic Concerns None Nutrition/Health 08/31/2021 Type of diet: Regular Appetite Excellent Eating Difficulties None . Physical Examination Vital Signs 05/24/2022 5:54 EST Temperature Temporal Artery 36.1 DegC Apical Heart Rate 53 bpm LOW Respiratory Rate 14 br/min Systolic BP Left Arm 122 mmHg Diastolic BP Left Arm 89 mmHg Systolic Blood Pressure Non-Invasive 122 mmHg Diastolic Blood Pressure Non-Invasive 89 mmHg Vital Signs(last 24 hrs) Last Charted Resp Rate 14 br/min (MAY 24 05:54) ZPO573 mmHg (MAY 24 05:54) DBP89 mmHg (MAY 24 05:54) BMI34.39 (MAY 24 05:54) Measurements from flowsheet : Measurements 05/24/2022 5:54 EST Height 185.4 cm Height in inches 73 inch(es) Admission Weight 118.2 kg Weight Lbs 260 lb Weight Method Stated [place] Body Weight 79.88 kg Body Mass Index 34.39 kg/m2 Body Mass Index 34.39 kg/m2 Pain assessment: Pain Assessment 05/24/2022 6:28 EST Primary Pain Intensity 1 05/24/2022 5:54 EST Primary Pain Location Knee Primary Pain Laterality Right Primary Pain Intensity 1 Pain Scale Type 0-10 Pain scale . General: Alert and oriented, Mild distress. Airway: Normal temporomandibular joint mobility. Dentition Evaluation: Denies loose/chipped teeth, crowns. Respiratory: Lungs are clear to auscultation, Respirations are non-labored. Cardiovascular: Normal rate. Neurologic: Alert, Oriented. Review / Management Results review: No qualifying data available , Lab results 05/24/2022 6:29 EST SN - Preop - CTm Pt in SDS Room 05/24/2022 5:51 SN - Preop - CTm Pt Ready for OR/Proced 05/24/2022 6:29 05/24/2022 6:28 EST Primary Pain Intensity 1 celecoxib 400 mg mg famotidine 20 mg mg oxyCODONE 10 mg mg Lactated Ringers Injection 1,000 mL mL 05/24/2022 6:19 EST citric acid-sodium citrate Not Done: Not Appropriate at this Time (Not Done) 05/24/2022 5:54 EST Designated Person #1 We May Share SHERRIE MCKEON [phone] Designated Person #1 Relationship Spouse Privacy Restrictions Requested None Height 185.4 cm Height in inches 73 inch(es) Admission Weight 118.2 kg Weight Lbs 260 lb Weight Method Stated [place] Body Weight 79.88 kg Body Mass Index 34.39 kg/m2 Body Mass Index 34.39 kg/m2 Temperature Temporal Artery 36.1 DegC Apical Heart Rate 53 bpm LOW Respiratory Rate 14 br/min Systolic BP Left Arm 122 mmHg Diastolic BP Left Arm 89 mmHg Systolic Blood Pressure Non-Invasive 122 mmHg Diastolic Blood Pressure Non-Invasive 89 mmHg Primary Pain Location Knee Primary Pain Laterality Right Primary Pain Intensity 1 Pain Scale Type 0-10 Pain scale Heart Rhythm Regular Oxygen Therapy Room air Oxygen Saturation 96 % Abdomen Description Non-distended Abdomen Palpation Non-Tender Bowel Sounds All Quadrants Present Urinary Elimination Voiding, no difficulties Status N/A Skin Temperature Warm Skin Description Island Walk, Dry Skin Integrity Intact IV Present Present Hand Right 05/24/2022 20 gauge Peripheral IV Activity: Insert new site Peripheral IV Dressing Condition: Clean, Dry, Intact Peripheral IV Dressing Activity: Applied, Transparent dressing Peripheral IV Line Status/Patency: Flushes easily Peripheral IV Site Condition: No complications Peripheral IV Equipment: Extension set, PRN Adaptor Neurological Symptoms Patient denies Extremity Movement Equal Characteristics of Speech Clear Level of Consciousness Alert Strength All Extremities Strong Tone All Extremities Normal Sensation All Extremities Intact Affect/Behavior Appropriate Orientation Oriented x 4 Sensory Deficits None Sleep Apnea Snore No Sleep Apnea Tired No Sleep Apnea Obstruction No Sleep Apnea Pressure Yes Sleep Apnea BMI No Sleep Apnea Age Yes Sleep Apnea Neck No Sleep Apnea Gender Yes Sleep Apnea Score 3 High Risk for Sleep Apnea No Diagnosed With Sleep Apnea No Advanced Directives Yes Advance Directive Location Family instructed to bring in copy Infectious Disease Symptoms Patient states no symptoms Infectious Disease Recent Exposure No Alcohol and Drug Use No Employee of Institutional Living No Health Care Employee No History of Exposure to TB No History of Positive Chest X-Ray for TB No History of Positive TB Skin Test No Homeless No Known Immunosuppression No Recent Immigrant No Resident of Institutional Living No Bloody Sputum No Fatigue No Fever No Loss of Appetite No Night Sweats No Persistent Cough > 3 Weeks No Weight Loss No 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 Consent Form Signed Yes Patient Dressed In Hospital gown, No undergarments Pre-op Preparation Glasses removed CHG Preoperative Wash/Wipe Night before procedure, Day of procedure, Site specific wipe Preop Nasal Swab Povidone-Iodine CHG Skin Prep Completed for Eligible Surgery History & Physical Update On Chart Yes History & Physical On Chart Yes Obstructive Sleep Apnea Assess Completed Yes Safety Brochure Information Reviewed Yes [facility] Video Viewed No Barriers to Learning None evident Teaching Method Explanation, Printed materials Teaching Evaluation Verbalizes/Nonverbally indicates understanding Preferred Written Language Puerto [place]ican Preferred Spoken Language [place]ican Information Given by Patient Patient's Current Physicians Patient's Current Physicians Belongings At Bedside Cell phone, Coat, Glasses, Pants, Shirt, Shoes, Socks, Undergarments Discharge To, Anticipated Home independently Activity Status ADL Awake SCD On/Re-applied left knee high Antiembolism Stocking On/Re-applied left thigh high NPO Status Maintained Standard Safety ID band on, Allergy Band on, Call device within reach, Bed in low position, Wheels locked, Upper/Half-Length side-rails up, Safety level maintained Prev Test Positive/Diagnosis w/COVID-19 Yes Previous COVID-19 Positive Date january 2022 Current Quarantine/Isolated any Illness No Any Contact with Sick Animals/Birds No Traveled Anywhere in Last 30 Days No Allergy Band on and Verified Yes Patient ID Band on and Verified Yes Implants Verified Yes Pacemaker/AICD Verified Yes Blood Consent Signed Yes Last Fluid Intake 05/23/2022 19:00 Last Food Intake 05/23/2022 19:00 Patient Cleared for Surgery By STEFF SUBRAMANIAN Cardiac Clearance For Surgery By KARAN LUGO MD Lost Weight Unintentionally Recently No Eat Poorly Due to Decreased Appetite No Total MST Score 0 N/A Personal Devices, Patient Valuables Glasses Anesthesia/Transfusions Prior anesthesia Admission Note-Nursing Same Day Patient History . Assessment and Plan [place] [employer] Anesthesiologists (ASA) physical status classification: Class III. Anesthetic Preoperative Plan Anesthetic technique: Spinal. Regional: Spinal. Postoperative pain management: adductor canal block. Risks discussed: nausea, vomiting, headache, hypotension, allergic reaction, serious complications. Informed consent: signed by patient. Digitally Signed by DEE DEE PRATT on 05/24/2022 06:48 AM [facility]10-24-2022 Note ORIGINAL EXAMINATION: CT OF THE RIGHT KNEE WITHOUT CONTRAST 05/02/2022 10:59 am TECHNIQUE: CT of the right knee was performed without the administration of intravenous contrast. Multiplanar reformatted images are provided for review. Automated exposure control, iterative reconstruction, and/or weight based adjustment of the mA/kV was utilized to reduce the radiation dose to as low as reasonably achievable. COMPARISON: None. HISTORY ORDERING SYSTEM PROVIDED HISTORY: Reason for Exam: VALGUS DEFORMITY. Pain. FINDINGS: No acute fracture or dislocation is. A diffuse mild decrease in osseous mineralization is seen. No visible aggressive osseous lesions. Moderate joint space narrowing is noted of the medial femorotibial compartment with marginal osteophytes. Moderate to severe joint space narrowing is noted the lateral femorotibial compartment with subchondral sclerosis, subchondral cysts, and marginal osteophytes. A central osteophyte is also present of the anterior weight-bearing lateral femoral condyle. Mild to moderate patellofemoral compartment joint space narrowing is noted with small marginal osteophytes. No significant knee effusion. No significant volume of fluid is evident of a popliteal cyst. Visible tendons appear grossly intact. Ligaments are poorly evaluated on this examination. No severe muscle atrophy. Provided images of the right hip and right hemipelvis exhibit no acute osseous abnormalities or aggressive osseous lesions. No acute process is noted of the included intrapelvic structures. Enlarged prostate with dystrophic parenchymal calcification. Provided images of the ankle exhibit no acute osseous abnormalities or aggressive osseous lesions. Mild vascular calcifications. IMPRESSION: 1. No acute osseous abnormalities or aggressive osseous lesions. 2. 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 Interpreted by: Michael Henry DO Preliminary Report By: Michael Henry DO Electronically signed By Michael Henry DO Dictated Date: 05/02/2022 11:46:50 AM Prelim Date: 05/02/2022 11:53:14 AM Sign Date: 05/02/2022 11:53:14 AM Ordering Provider: MIYA FIDEL [facility]10-24-2022 Note ORIGINAL EXAMINATION: CT OF THE RIGHT KNEE WITHOUT CONTRAST 05/02/2022 10:59 am TECHNIQUE: CT of the right knee was performed without the administration of intravenous contrast. Multiplanar reformatted images are provided for review. Automated exposure control, iterative reconstruction, and/or weight based adjustment of the mA/kV was utilized to reduce the radiation dose to as low as reasonably achievable. COMPARISON: None. HISTORY ORDERING SYSTEM PROVIDED HISTORY: Reason for Exam: VALGUS DEFORMITY. Pain. FINDINGS: No acute fracture or dislocation is. A diffuse mild decrease in osseous mineralization is seen. No visible aggressive osseous lesions. Moderate joint space narrowing is noted of the medial femorotibial compartment with marginal osteophytes. Moderate to severe joint space narrowing is noted the lateral femorotibial compartment with subchondral sclerosis, subchondral cysts, and marginal osteophytes. A central osteophyte is also present of the anterior weight-bearing lateral femoral condyle. Mild to moderate patellofemoral compartment joint space narrowing is noted with small marginal osteophytes. No significant knee effusion. No significant volume of fluid is evident of a popliteal cyst. Visible tendons appear grossly intact. Ligaments are poorly evaluated on this examination. No severe muscle atrophy. Provided images of the right hip and right hemipelvis exhibit no acute osseous abnormalities or aggressive osseous lesions. No acute process is noted of the included intrapelvic structures. Enlarged prostate with dystrophic parenchymal calcification. Provided images of the ankle exhibit no acute osseous abnormalities or aggressive osseous lesions. Mild vascular calcifications. IMPRESSION: 1. No acute osseous abnormalities or aggressive osseous lesions. 2. 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 Atrial fibrillation chronic Nonischemic cardiomyopathy c hronic [facility] Work Phone: Evaluation noteNo assessment information available [facility] Work Phone: Evaluation note* Diagnosis Paroxysmal atrial fibrillation (HCC)- Primary Atrial fibrillation correction current use of antiarrhythmic drug Encounter for monitoring flecainide therapy Encounter for therapeutic drug monitoring At risk for stroke Other specified personal history presenting hazards to health Anticoagulant long-term use Long-term (current) use of anticoagulants Obesity, Class I, BMI 30-34.9 Obesity, unspecified documented in this encounter [facility] course Narrative No data available for this section [facility] Hospital Discharge instructions No data available for this section [facility] Instructions* Name Dates Details DISCONTINUED - TSH (THYROID STIMULATING HORMONE) (81711) Indication:Hypothyroid Start:05-Oct-2020 Instruction Type:Patient Education DISCONTINUED - METABOLIC SUTTON EL, COMPREHENSIVE (91254) Indication:Elevated liver enzymes Start:05-Oct-2020 Instruction Type:Patient Education DISCONTINUED - LIPID PANEL ( [id number]) Indication:Elevated liver enzymes Start:05-Oct-2020 Instruction Type:Patient Education DISCONTINUED - CBC, PLATELET S & AUT DIFF ([id number]) Indication:Elevated liver enzymes Start:05-Oct-2020 Instruction Type:Patient Education DISCONTINUED - METABOLIC SUTTON EL, COMPREHENSIVE (79032) Indication:Elevated liver enzymes Start:05-Oct-2020 Instruction Type:Patient Education DISCONTINUED - MICROALBUMIN: CREATININE RATIO ([id number]) AND ([id number]) Indication:Hypertension Start:05-Oct-2020 Instruction Type:Patient Education DISCONTINUED - TSH ([id number]) Indication:Hypertension Start:05-Oct-2020 Instruction Type:Patient Education DISCONTINUED - CBC, PLATELET S & AUT DIFF ([id number]) Indication:Hypertension Start:05-Oct-2020 Instruction Type:Patient Education DISCONTINUED - METABOLIC SUTTON EL, COMPREHENSIVE ([id number]) Indication:Hypertension Start:05-Oct-2020 Instruction Type:Patient Education DISCONTINUED - METABOLIC SUTTON EL, COMPREHENSIVE ([id number]) Indication:Hypertension Start:05-Oct-2020 Instruction Type:Patient Education DISCONTINUED - LIPID PANEL ( [id number]) Indication:Hypercholesteremia Start:05-Oct-2020 Instruction Type:Patient Education Patient Instructions Indication:Elevated liver enzymes Start:05-Oct-2020 Instruction Type:Provider Instructions for Treatment How to Access Health Informa tion Online using Patient Portal and [employer] Indication:Current nonsmoker (Renamed from Current non-smoker) Start:05-Oct-2020 Instruction Type:Patient Education How to access health informa tion online Indication:Current nonsmoker (Renamed from Current non-smoker) Start:08-Jun-2020 Instruction Type:Patient Education How to access health informa tion online - Detail Indication:Current nonsmoker (Renamed from Current non-smoker) Start:08-Jun-2020 Instruction Type:Patient Education Patient Instructions Indication:Need for prophylactic vaccination and inoculation against influenza (Renamed from Need for immunization against influenza) Start:08-Jun-2020 Instruction Type:Provider Instructions for Treatment How to access health informa tion online Indication:Current nonsmoker (Renamed from Current non-smoker) Start:31-Jan-2020 Instruction Type:Patient Education How to access health informa tion online - Detail Indication:Current nonsmoker (Renamed from Current non-smoker) Start:31-Jan-2020 Instruction Type:Patient Education Patient Instructions Indication:Afib Start:31-Jan-2020 Instruction Type:Provider Instructions for Treatment How to access health informa tion online Indication:Current nonsmoker (Renamed from Current non-smoker) Start:30-Sep-2019 Instruction Type:Patient Education How to access health informa tion online - Detail Indication:Current nonsmoker (Renamed from Current non-smoker) Start:30-Sep-2019 Instruction Type:Patient Education Patient Instructions Indication:Current nonsmoker (Renamed from Current non-smoker) Start:30-Sep-2019 Instruction Type:Provider Instructions for Treatment How to access health informa tion online Indication:Current nonsmoker (Renamed from Current non-smoker) Start:24-May-2019 Instruction Type:Patient Education How to access health informa tion online - Detail Indication:Current nonsmoker (Renamed from Current non-smoker) Start:24-May-2019 Instruction Type:Patient Education Patient Instructions Indication:Screening for prostate cancer Start:24-May-2019 Instruction Type:Provider Instructions for Treatment How to access health informa tion online Indication:Current nonsmoker (Renamed from Current non-smoker) Start:20-Feb-2019 Instruction Type:Patient Education How to access health informa tion online - Detail Indication:Current nonsmoker (Renamed from Current non-smoker) Start:20-Feb-2019 Instruction Type:Patient Education Patient Instructions Indication:BMI 30.0-30.9,adult Start:20-Feb-2019 Instruction Type:Provider Instructions for Treatment How to access health informa tion online Indication:Current nonsmoker (Renamed from Current non-smoker) Start:11-Feb-2019 Instruction Type:Patient Education How to access health informa tion online - Detail Indication:Current nonsmoker (Renamed from Current non-smoker) Start:11-Feb-2019 Instruction Type:Patient Education Patient Instructions Indication:BMI 30.0-30.9,adult Start:11-Feb-2019 Instruction Type:Provider Instructions for Treatment How to access health informa tion online Indication:Current nonsmoker (Renamed from Current non-smoker) Start:08-Feb-2019 Instruction Type:Patient Education How to access health informa tion online - Detail Indication:Current nonsmoker (Renamed from Current non-smoker) Start:08-Feb-2019 Instruction Type:Patient Education Patient Instructions Indication:Current nonsmoker (Renamed from Current non-smoker) Start:08-Feb-2019 Instruction Type:Provider Instructions for Treatment How to access health informa tion online Indication:Current nonsmoker (Renamed from Current non-smoker) Start:22-Aug-2018 Instruction Type:Patient Education How to access health informa tion online - Detail Indication:Current nonsmoker (Renamed from Current non-smoker) Start:22-Aug-2018 Instruction Type:Patient Education Patient Instructions Indication:BMI 33.0-33.9,adult Start:22-Aug-2018 Instruction Type:Provider Instructions for Treatment How to access health informa tion online Indication:Current nonsmoker (Renamed from Current non-smoker) Start:21-May-2018 Instruction Type:Patient Education How to access health informa tion online - Detail Indication:Current nonsmoker (Renamed from Current non-smoker) Start:21-May-2018 Instruction Type:Patient Education Patient Instructions Indication:Rash of unknown cause Start:21-May-2018 Instruction Type:Provider Instructions for Treatment How to access health informa tion online Indication:Current nonsmoker (Renamed from Current non-smoker) Start:16-Feb-2018 Instruction Type:Patient Education How to access health informa tion online - Detail Indication:Current nonsmoker (Renamed from Current non-smoker) Start:16-Feb-2018 Instruction Type:Patient Education Patient Instructions Indication:CKD stage G2/A1, GFR 60-89 and albumin creatinine ratio <30 mg/g Start:16-Feb-2018 Instruction Type:Provider Instructions for Treatment How to access health informa tion online Indication:BMI 32.0-32.9,adult Start:01-Jan-2018 Instruction Type:Patient Education How to access health informa tion online - Detail Indication:BMI 32.0-32.9,adult Start:01-Jan-2018 Instruction Type:Patient Education Patient Instructions Indication:Cough Start:01-Jan-2018 Instruction Type:Provider Instructions for Treatment How to access health informa tion online Indication:Encounter for routine history and physical exam for male Start:30-Oct-2015 Instruction Type:Patient Education How to access health informa tion online - Detail Indication:Encounter for routine history and physical exam for male Start:30-Oct-2015 Instruction Type:Patient Education Patient Instructions Indication:Encounter for routine history and physical exam for male Start:30-Oct-2015 Instruction Type:Provider Instructions for Treatment [facility]; [facility] Work Phone: Instructions* Name Dates Details DISCONTINUED - TSH (THYROID STIMULATING HORMONE) ([id number]) Indication:Hypothyroid Start:05-Oct-2020 Instruction Type:Patient Education DISCONTINUED - METABOLIC SUTTON EL, COMPREHENSIVE (59775) Indication:Elevated liver enzymes Start:05-Oct-2020 Instruction Type:Patient Education DISCONTINUED - LIPID PANEL ( [id number]) Indication:Elevated liver enzymes Start:05-Oct-2020 Instruction Type:Patient Education DISCONTINUED - CBC, PLATELET S & AUT DIFF ([id number]) Indication:Elevated liver enzymes Start:05-Oct-2020 Instruction Type:Patient Education DISCONTINUED - METABOLIC SUTTON EL, COMPREHENSIVE (06024) Indication:Elevated liver enzymes Start:05-Oct-2020 Instruction Type:Patient Education DISCONTINUED - MICROALBUMIN: CREATININE RATIO (10799) AND (59827) Indication:Hypertension Start:05-Oct-2020 Instruction Type:Patient Education DISCONTINUED - TSH ([id number]) Indication:Hypertension Start:05-Oct-2020 Instruction Type:Patient Education DISCONTINUED - CBC, PLATELET S & AUT DIFF (22398) Indication:Hypertension Start:05-Oct-2020 Instruction Type:Patient Education DISCONTINUED - METABOLIC SUTTON EL, COMPREHENSIVE (97013) Indication:Hypertension Start:05-Oct-2020 Instruction Type:Patient Education DISCONTINUED - METABOLIC SUTTON EL, COMPREHENSIVE (00293) Indication:Hypertension Start:05-Oct-2020 Instruction Type:Patient Education DISCONTINUED - LIPID PANEL ( 51322) Indication:Hypercholesteremia Start:05-Oct-2020 Instruction Type:Patient Education Patient Instructions Indication:Elevated liver enzymes Start:05-Oct-2020 Instruction Type:Provider Instructions for Treatment How to Access Health Informa tion Online using Patient Portal and [employer] Indication:Current nonsmoker (Renamed from Current non-smoker) Start:05-Oct-2020 Instruction Type:Patient Education How to access health informa tion online Indication:Current nonsmoker (Renamed from Current non-smoker) Start:08-Jun-2020 Instruction Type:Patient Education How to access health informa tion online - Detail Indication:Current nonsmoker (Renamed from Current non-smoker) Start:08-Jun-2020 Instruction Type:Patient Education Patient Instructions Indication:Need for prophylactic vaccination and inoculation against influenza (Renamed from Need for immunization against influenza) Start:08-Jun-2020 Instruction Type:Provider Instructions for Treatment How to access health informa tion online Indication:Current nonsmoker (Renamed from Current non-smoker) Start:31-Jan-2020 Instruction Type:Patient Education How to access health informa tion online - Detail Indication:Current nonsmoker (Renamed from Current non-smoker) Start:31-Jan-2020 Instruction Type:Patient Education Patient Instructions Indication:Afib Start:31-Jan-2020 Instruction Type:Provider Instructions for Treatment How to access health informa tion online Indication:Current nonsmoker (Renamed from Current non-smoker) Start:30-Sep-2019 Instruction Type:Patient Education How to access health informa tion online - Detail Indication:Current nonsmoker (Renamed from Current non-smoker) Start:30-Sep-2019 Instruction Type:Patient Education Patient Instructions Indication:Current nonsmoker (Renamed from Current non-smoker) Start:30-Sep-2019 Instruction Type:Provider Instructions for Treatment How to access health informa tion online Indication:Current nonsmoker (Renamed from Current non-smoker) Start:24-May-2019 Instruction Type:Patient Education How to access health informa tion online - Detail Indication:Current nonsmoker (Renamed from Current non-smoker) Start:24-May-2019 Instruction Type:Patient Education Patient Instructions Indication:Screening for prostate cancer Start:24-May-2019 Instruction Type:Provider Instructions for Treatment How to access health informa tion online Indication:Current nonsmoker (Renamed from Current non-smoker) Start:20-Feb-2019 Instruction Type:Patient Education How to access health informa tion online - Detail Indication:Current nonsmoker (Renamed from Current non-smoker) Start:20-Feb-2019 Instruction Type:Patient Education Patient Instructions Indication:BMI 30.0-30.9,adult Start:20-Feb-2019 Instruction Type:Provider Instructions for Treatment How to access health informa tion online Indication:Current nonsmoker (Renamed from Current non-smoker) Start:11-Feb-2019 Instruction Type:Patient Education How to access health informa tion online - Detail Indication:Current nonsmoker (Renamed from Current non-smoker) Start:11-Feb-2019 Instruction Type:Patient Education Patient Instructions Indication:BMI 30.0-30.9,adult Start:11-Feb-2019 Instruction Type:Provider Instructions for Treatment How to access health informa tion online Indication:Current nonsmoker (Renamed from Current non-smoker) Start:08-Feb-2019 Instruction Type:Patient Education How to access health informa tion online - Detail Indication:Current nonsmoker (Renamed from Current non-smoker) Start:08-Feb-2019 Instruction Type:Patient Education Patient Instructions Indication:Current nonsmoker (Renamed from Current non-smoker) Start:08-Feb-2019 Instruction Type:Provider Instructions for Treatment How to access health informa tion online Indication:Current nonsmoker (Renamed from Current non-smoker) Start:22-Aug-2018 Instruction Type:Patient Education How to access health informa tion online - Detail Indication:Current nonsmoker (Renamed from Current non-smoker) Start:22-Aug-2018 Instruction Type:Patient Education Patient Instructions Indication:BMI 33.0-33.9,adult Start:22-Aug-2018 Instruction Type:Provider Instructions for Treatment How to access health informa tion online Indication:Current nonsmoker (Renamed from Current non-smoker) Start:21-May-2018 Instruction Type:Patient Education How to access health informa tion online - Detail Indication:Current nonsmoker (Renamed from Current non-smoker) Start:21-May-2018 Instruction Type:Patient Education Patient Instructions Indication:Rash of unknown cause Start:21-May-2018 Instruction Type:Provider Instructions for Treatment How to access health informa tion online Indication:Current nonsmoker (Renamed from Current non-smoker) Start:16-Feb-2018 Instruction Type:Patient Education How to access health informa tion online - Detail Indication:Current nonsmoker (Renamed from Current non-smoker) Start:16-Feb-2018 Instruction Type:Patient Education Patient Instructions Indication:CKD stage G2/A1, GFR 60-89 and albumin creatinine ratio <30 mg/g Start:16-Feb-2018 Instruction Type:Provider Instructions for Treatment How to access health informa tion online Indication:BMI 32.0-32.9,adult Start:01-Jan-2018 Instruction Type:Patient Education How to access health informa tion online - Detail Indication:BMI 32.0-32.9,adult Start:01-Jan-2018 Instruction Type:Patient Education Patient Instructions Indication:Cough Start:01-Jan-2018 Instruction Type:Provider Instructions for Treatment How to access health informa tion online Indication:Encounter for routine history and physical exam for male Start:30-Oct-2015 Instruction Type:Patient Education How to access health informa tion online - Detail Indication:Encounter for routine history and physical exam for male Start:30-Oct-2015 Instruction Type:Patient Education Patient Instructions Indication:Encounter for routine history and physical exam for male Start:30-Oct-2015 Instruction Type:Provider Instructions for Treatment [facility]; [facility] Work Phone: Instructions* Name Dates Details DISCONTINUED - TSH (THYROID STIMULATING HORMONE) ([id number]) Indication:Hypothyroid Start:05-Oct-2020 Instruction Type:Patient Education DISCONTINUED - METABOLIC SUTTON EL, COMPREHENSIVE (64461) Indication:Elevated liver enzymes Start:05-Oct-2020 Instruction Type:Patient Education DISCONTINUED - LIPID PANEL ( 79250) Indication:Elevated liver enzymes Start:05-Oct-2020 Instruction Type:Patient Education DISCONTINUED - CBC, PLATELET S & AUT DIFF (32948) Indication:Elevated liver enzymes Start:05-Oct-2020 Instruction Type:Patient Education DISCONTINUED - METABOLIC SUTTON EL, COMPREHENSIVE (81121) Indication:Elevated liver enzymes Start:05-Oct-2020 Instruction Type:Patient Education DISCONTINUED - MICROALBUMIN: CREATININE RATIO (72655) AND (91958) Indication:Hypertension Start:05-Oct-2020 Instruction Type:Patient Education DISCONTINUED - TSH ([id number]) Indication:Hypertension Start:05-Oct-2020 Instruction Type:Patient Education DISCONTINUED - CBC, PLATELET S & AUT DIFF ([id number]) Indication:Hypertension Start:05-Oct-2020 Instruction Type:Patient Education DISCONTINUED - METABOLIC SUTTON EL, COMPREHENSIVE ([id number]) Indication:Hypertension Start:05-Oct-2020 Instruction Type:Patient Education DISCONTINUED - METABOLIC SUTTON EL, COMPREHENSIVE (47062) Indication:Hypertension Start:05-Oct-2020 Instruction Type:Patient Education DISCONTINUED - LIPID PANEL ( 50652) Indication:Hypercholesteremia Start:05-Oct-2020 Instruction Type:Patient Education Patient Instructions Indication:Elevated liver enzymes Start:05-Oct-2020 Instruction Type:Provider Instructions for Treatment How to Access Health Informa tion Online using Patient Portal and [employer] Indication:Current nonsmoker (Renamed from Current non-smoker) Start:05-Oct-2020 Instruction Type:Patient Education How to access health informa tion online Indication:Current nonsmoker (Renamed from Current non-smoker) Start:08-Jun-2020 Instruction Type:Patient Education How to access health informa tion online - Detail Indication:Current nonsmoker (Renamed from Current non-smoker) Start:08-Jun-2020 Instruction Type:Patient Education Patient Instructions Indication:Need for prophylactic vaccination and inoculation against influenza (Renamed from Need for immunization against influenza) Start:08-Jun-2020 Instruction Type:Provider Instructions for Treatment How to access health informa tion online Indication:Current nonsmoker (Renamed from Current non-smoker) Start:31-Jan-2020 Instruction Type:Patient Education How to access health informa tion online - Detail Indication:Current nonsmoker (Renamed from Current non-smoker) Start:31-Jan-2020 Instruction Type:Patient Education Patient Instructions Indication:Afib Start:31-Jan-2020 Instruction Type:Provider Instructions for Treatment How to access health informa tion online Indication:Current nonsmoker (Renamed from Current non-smoker) Start:30-Sep-2019 Instruction Type:Patient Education How to access health informa tion online - Detail Indication:Current nonsmoker (Renamed from Current non-smoker) Start:30-Sep-2019 Instruction Type:Patient Education Patient Instructions Indication:Current nonsmoker (Renamed from Current non-smoker) Start:30-Sep-2019 Instruction Type:Provider Instructions for Treatment How to access health informa tion online Indication:Current nonsmoker (Renamed from Current non-smoker) Start:24-May-2019 Instruction Type:Patient Education How to access health informa tion online - Detail Indication:Current nonsmoker (Renamed from Current non-smoker) Start:24-May-2019 Instruction Type:Patient Education Patient Instructions Indication:Screening for prostate cancer Start:24-May-2019 Instruction Type:Provider Instructions for Treatment How to access health informa tion online Indication:Current nonsmoker (Renamed from Current non-smoker) Start:20-Feb-2019 Instruction Type:Patient Education How to access health informa tion online - Detail Indication:Current nonsmoker (Renamed from Current non-smoker) Start:20-Feb-2019 Instruction Type:Patient Education Patient Instructions Indication:BMI 30.0-30.9,adult Start:20-Feb-2019 Instruction Type:Provider Instructions for Treatment How to access health informa tion online Indication:Current nonsmoker (Renamed from Current non-smoker) Start:11-Feb-2019 Instruction Type:Patient Education How to access health informa tion online - Detail Indication:Current nonsmoker (Renamed from Current non-smoker) Start:11-Feb-2019 Instruction Type:Patient Education Patient Instructions Indication:BMI 30.0-30.9,adult Start:11-Feb-2019 Instruction Type:Provider Instructions for Treatment How to access health informa tion online Indication:Current nonsmoker (Renamed from Current non-smoker) Start:08-Feb-2019 Instruction Type:Patient Education How to access health informa tion online - Detail Indication:Current nonsmoker (Renamed from Current non-smoker) Start:08-Feb-2019 Instruction Type:Patient Education Patient Instructions Indication:Current nonsmoker (Renamed from Current non-smoker) Start:08-Feb-2019 Instruction Type:Provider Instructions for Treatment How to access health informa tion online Indication:Current nonsmoker (Renamed from Current non-smoker) Start:22-Aug-2018 Instruction Type:Patient Education How to access health informa tion online - Detail Indication:Current nonsmoker (Renamed from Current non-smoker) Start:22-Aug-2018 Instruction Type:Patient Education Patient Instructions Indication:BMI 33.0-33.9,adult Start:22-Aug-2018 Instruction Type:Provider Instructions for Treatment How to access health informa tion online Indication:Current nonsmoker (Renamed from Current non-smoker) Start:21-May-2018 Instruction Type:Patient Education How to access health informa tion online - Detail Indication:Current nonsmoker (Renamed from Current non-smoker) Start:21-May-2018 Instruction Type:Patient Education Patient Instructions Indication:Rash of unknown cause Start:21-May-2018 Instruction Type:Provider Instructions for Treatment How to access health informa tion online Indication:Current nonsmoker (Renamed from Current non-smoker) Start:16-Feb-2018 Instruction Type:Patient Education How to access health informa tion online - Detail Indication:Current nonsmoker (Renamed from Current non-smoker) Start:16-Feb-2018 Instruction Type:Patient Education Patient Instructions Indication:CKD stage G2/A1, GFR 60-89 and albumin creatinine ratio <30 mg/g Start:16-Feb-2018 Instruction Type:Provider Instructions for Treatment How to access health informa tion online Indication:BMI 32.0-32.9,adult Start:01-Jan-2018 Instruction Type:Patient Education How to access health informa tion online - Detail Indication:BMI 32.0-32.9,adult Start:01-Jan-2018 Instruction Type:Patient Education Patient Instructions Indication:Cough Start:01-Jan-2018 Instruction Type:Provider Instructions for Treatment How to access health informa tion online Indication:Encounter for routine history and physical exam for male Start:30-Oct-2015 Instruction Type:Patient Education How to access health informa tion online - Detail Indication:Encounter for routine history and physical exam for male Start:30-Oct-2015 Instruction Type:Patient Education Patient Instructions Indication:Encounter for routine history and physical exam for male Start:30-Oct-2015 Instruction Type:Provider Instructions for Treatment [facility]; [facility] Work Phone: Instructions* Name Dates Details Patient Instructions Indication:Current nonsmoker (Renamed from Current non-smoker) Start:11-Jun-2021 Instruction Type:Provider Instructions for Treatment How to Access Health Informa tion Online using Patient Portal and [employer] Indication:Current nonsmoker (Renamed from Current non-smoker) Start:11-Jun-2021 Instruction Type:Patient Education Patient Instructions Indication:Current nonsmoker (Renamed from Current non-smoker) Start:09-Feb-2021 Instruction Type:Provider Instructions for Treatment How to Access Health Informa tion Online using Patient Portal and [employer] Indication:Current nonsmoker (Renamed from Current non-smoker) Start:09-Feb-2021 Instruction Type:Patient Education DISCONTINUED - TSH (THYROID STIMULATING HORMONE) (82591) Indication:Hypothyroid Start:05-Oct-2020 Instruction Type:Patient Education DISCONTINUED - METABOLIC SUTTON EL, COMPREHENSIVE (54618) Indication:Elevated liver enzymes Start:05-Oct-2020 Instruction Type:Patient Education DISCONTINUED - LIPID PANEL ( 17501) Indication:Elevated liver enzymes Start:05-Oct-2020 Instruction Type:Patient Education DISCONTINUED - CBC, PLATELET S & AUT DIFF (72004) Indication:Elevated liver enzymes Start:05-Oct-2020 Instruction Type:Patient Education DISCONTINUED - METABOLIC SUTTON EL, COMPREHENSIVE (04543) Indication:Elevated liver enzymes Start:05-Oct-2020 Instruction Type:Patient Education DISCONTINUED - MICROALBUMIN: CREATININE RATIO (17529) AND (35328) Indication:Hypertension Start:05-Oct-2020 Instruction Type:Patient Education DISCONTINUED - TSH (28533) Indication:Hypertension Start:05-Oct-2020 Instruction Type:Patient Education DISCONTINUED - CBC, PLATELET S & AUT DIFF ([id number]) Indication:Hypertension Start:05-Oct-2020 Instruction Type:Patient Education DISCONTINUED - METABOLIC SUTTON EL, COMPREHENSIVE ([id number]) Indication:Hypertension Start:05-Oct-2020 Instruction Type:Patient Education DISCONTINUED - METABOLIC SUTTON EL, COMPREHENSIVE (61788) Indication:Hypertension Start:05-Oct-2020 Instruction Type:Patient Education DISCONTINUED - LIPID PANEL ( 35166) Indication:Hypercholesteremia Start:05-Oct-2020 Instruction Type:Patient Education Patient Instructions Indication:Elevated liver enzymes Start:05-Oct-2020 Instruction Type:Provider Instructions for Treatment How to Access Health Informa tion Online using Patient Portal and [employer] Indication:Current nonsmoker (Renamed from Current non-smoker) Start:05-Oct-2020 Instruction Type:Patient Education How to access health informa tion online Indication:Current nonsmoker (Renamed from Current non-smoker) Start:08-Jun-2020 Instruction Type:Patient Education How to access health informa tion online - Detail Indication:Current nonsmoker (Renamed from Current non-smoker) Start:08-Jun-2020 Instruction Type:Patient Education Patient Instructions Indication:Need for prophylactic vaccination and inoculation against influenza (Renamed from Need for immunization against influenza) Start:08-Jun-2020 Instruction Type:Provider Instructions for Treatment How to access health informa tion online Indication:Current nonsmoker (Renamed from Current non-smoker) Start:31-Jan-2020 Instruction Type:Patient Education How to access health informa tion online - Detail Indication:Current nonsmoker (Renamed from Current non-smoker) Start:31-Jan-2020 Instruction Type:Patient Education Patient Instructions Indication:Afib Start:31-Jan-2020 Instruction Type:Provider Instructions for Treatment How to access health informa tion online Indication:Current nonsmoker (Renamed from Current non-smoker) Start:30-Sep-2019 Instruction Type:Patient Education How to access health informa tion online - Detail Indication:Current nonsmoker (Renamed from Current non-smoker) Start:30-Sep-2019 Instruction Type:Patient Education Patient Instructions Indication:Current nonsmoker (Renamed from Current non-smoker) Start:30-Sep-2019 Instruction Type:Provider Instructions for Treatment How to access health informa tion online Indication:Current nonsmoker (Renamed from Current non-smoker) Start:24-May-2019 Instruction Type:Patient Education How to access health informa tion online - Detail Indication:Current nonsmoker (Renamed from Current non-smoker) Start:24-May-2019 Instruction Type:Patient Education Patient Instructions Indication:Screening for prostate cancer Start:24-May-2019 Instruction Type:Provider Instructions for Treatment How to access health informa tion online Indication:Current nonsmoker (Renamed from Current non-smoker) Start:20-Feb-2019 Instruction Type:Patient Education How to access health informa tion online - Detail Indication:Current nonsmoker (Renamed from Current non-smoker) Start:20-Feb-2019 Instruction Type:Patient Education Patient Instructions Indication:BMI 30.0-30.9,adult Start:20-Feb-2019 Instruction Type:Provider Instructions for Treatment How to access health informa tion online Indication:Current nonsmoker (Renamed from Current non-smoker) Start:11-Feb-2019 Instruction Type:Patient Education How to access health informa tion online - Detail Indication:Current nonsmoker (Renamed from Current non-smoker) Start:11-Feb-2019 Instruction Type:Patient Education Patient Instructions Indication:BMI 30.0-30.9,adult Start:11-Feb-2019 Instruction Type:Provider Instructions for Treatment How to access health informa tion online Indication:Current nonsmoker (Renamed from Current non-smoker) Start:08-Feb-2019 Instruction Type:Patient Education How to access health informa tion online - Detail Indication:Current nonsmoker (Renamed from Current non-smoker) Start:08-Feb-2019 Instruction Type:Patient Education Patient Instructions Indication:Current nonsmoker (Renamed from Current non-smoker) Start:08-Feb-2019 Instruction Type:Provider Instructions for Treatment How to access health informa tion online Indication:Current nonsmoker (Renamed from Current non-smoker) Start:22-Aug-2018 Instruction Type:Patient Education How to access health informa tion online - Detail Indication:Current nonsmoker (Renamed from Current non-smoker) Start:22-Aug-2018 Instruction Type:Patient Education Patient Instructions Indication:BMI 33.0-33.9,adult Start:22-Aug-2018 Instruction Type:Provider Instructions for Treatment How to access health informa tion online Indication:Current nonsmoker (Renamed from Current non-smoker) Start:21-May-2018 Instruction Type:Patient Education How to access health informa tion online - Detail Indication:Current nonsmoker (Renamed from Current non-smoker) Start:21-May-2018 Instruction Type:Patient Education Patient Instructions Indication:Rash of unknown cause Start:21-May-2018 Instruction Type:Provider Instructions for Treatment How to access health informa tion online Indication:Current nonsmoker (Renamed from Current non-smoker) Start:16-Feb-2018 Instruction Type:Patient Education How to access health informa tion online - Detail Indication:Current nonsmoker (Renamed from Current non-smoker) Start:16-Feb-2018 Instruction Type:Patient Education Patient Instructions Indication:CKD stage G2/A1, GFR 60-89 and albumin creatinine ratio <30 mg/g Start:16-Feb-2018 Instruction Type:Provider Instructions for Treatment How to access health informa tion online Indication:BMI 32.0-32.9,adult Start:01-Jan-2018 Instruction Type:Patient Education How to access health informa tion online - Detail Indication:BMI 32.0-32.9,adult Start:01-Jan-2018 Instruction Type:Patient Education Patient Instructions Indication:Cough Start:01-Jan-2018 Instruction Type:Provider Instructions for Treatment How to access health informa tion online Indication:Encounter for routine history and physical exam for male Start:30-Oct-2015 Instruction Type:Patient Education How to access health informa tion online - Detail Indication:Encounter for routine history and physical exam for male Start:30-Oct-2015 Instruction Type:Patient Education Patient Instructions Indication:Encounter for routine history and physical exam for male Start:30-Oct-2015 Instruction Type:Provider Instructions for Treatment [facility]; [facility] Work Phone: Instructions* Name Dates Details Patient Instructions Indication:Anticoagulated Start:14-Jul-2021 Instruction Type:Provider Instructions for Treatment How to Access Health Informa tion Online using Patient Portal and [employer] Indication:Current nonsmoker (Renamed from Current non-smoker) Start:14-Jul-2021 Instruction Type:Patient Education Patient Instructions Indication:Current nonsmoker (Renamed from Current non-smoker) Start:11-Jun-2021 Instruction Type:Provider Instructions for Treatment How to Access Health Informa tion Online using Patient Portal and [employer] Indication:Current nonsmoker (Renamed from Current non-smoker) Start:11-Jun-2021 Instruction Type:Patient Education Patient Instructions Indication:Current nonsmoker (Renamed from Current non-smoker) Start:09-Feb-2021 Instruction Type:Provider Instructions for Treatment How to Access Health Informa tion Online using Patient Portal and [employer] Indication:Current nonsmoker (Renamed from Current non-smoker) Start:09-Feb-2021 Instruction Type:Patient Education DISCONTINUED - TSH (THYROID STIMULATING HORMONE) (09936) Indication:Hypothyroid Start:05-Oct-2020 Instruction Type:Patient Education DISCONTINUED - METABOLIC SUTTON EL, COMPREHENSIVE (42240) Indication:Elevated liver enzymes Start:05-Oct-2020 Instruction Type:Patient Education DISCONTINUED - LIPID PANEL ( 26637) Indication:Elevated liver enzymes Start:05-Oct-2020 Instruction Type:Patient Education DISCONTINUED - CBC, PLATELET S & AUT DIFF (06796) Indication:Elevated liver enzymes Start:05-Oct-2020 Instruction Type:Patient Education DISCONTINUED - METABOLIC SUTTON EL, COMPREHENSIVE ([id number]) Indication:Elevated liver enzymes Start:05-Oct-2020 Instruction Type:Patient Education DISCONTINUED - MICROALBUMIN: CREATININE RATIO (18120) AND (43437) Indication:Hypertension Start:05-Oct-2020 Instruction Type:Patient Education DISCONTINUED - TSH (12617) Indication:Hypertension Start:05-Oct-2020 Instruction Type:Patient Education DISCONTINUED - CBC, PLATELET S & AUT DIFF (46959) Indication:Hypertension Start:05-Oct-2020 Instruction Type:Patient Education DISCONTINUED - METABOLIC SUTTON EL, COMPREHENSIVE (93377) Indication:Hypertension Start:05-Oct-2020 Instruction Type:Patient Education DISCONTINUED - METABOLIC SUTTON EL, COMPREHENSIVE (94525) Indication:Hypertension Start:05-Oct-2020 Instruction Type:Patient Education DISCONTINUED - LIPID PANEL ( 45090) Indication:Hypercholesteremia Start:05-Oct-2020 Instruction Type:Patient Education Patient Instructions Indication:Elevated liver enzymes Start:05-Oct-2020 Instruction Type:Provider Instructions for Treatment How to Access Health Informa tion Online using Patient Portal and [employer] Indication:Current nonsmoker (Renamed from Current non-smoker) Start:05-Oct-2020 Instruction Type:Patient Education How to access health informa tion online Indication:Current nonsmoker (Renamed from Current non-smoker) Start:08-Jun-2020 Instruction Type:Patient Education How to access health informa tion online - Detail Indication:Current nonsmoker (Renamed from Current non-smoker) Start:08-Jun-2020 Instruction Type:Patient Education Patient Instructions Indication:Need for prophylactic vaccination and inoculation against influenza (Renamed from Need for immunization against influenza) Start:08-Jun-2020 Instruction Type:Provider Instructions for Treatment How to access health informa tion online Indication:Current nonsmoker (Renamed from Current non-smoker) Start:31-Jan-2020 Instruction Type:Patient Education How to access health informa tion online - Detail Indication:Current nonsmoker (Renamed from Current non-smoker) Start:31-Jan-2020 Instruction Type:Patient Education Patient Instructions Indication:Afib Start:31-Jan-2020 Instruction Type:Provider Instructions for Treatment How to access health informa tion online Indication:Current nonsmoker (Renamed from Current non-smoker) Start:30-Sep-2019 Instruction Type:Patient Education How to access health informa tion online - Detail Indication:Current nonsmoker (Renamed from Current non-smoker) Start:30-Sep-2019 Instruction Type:Patient Education Patient Instructions Indication:Current nonsmoker (Renamed from Current non-smoker) Start:30-Sep-2019 Instruction Type:Provider Instructions for Treatment How to access health informa tion online Indication:Current nonsmoker (Renamed from Current non-smoker) Start:24-May-2019 Instruction Type:Patient Education How to access health informa tion online - Detail Indication:Current nonsmoker (Renamed from Current non-smoker) Start:24-May-2019 Instruction Type:Patient Education Patient Instructions Indication:Screening for prostate cancer Start:24-May-2019 Instruction Type:Provider Instructions for Treatment How to access health informa tion online Indication:Current nonsmoker (Renamed from Current non-smoker) Start:20-Feb-2019 Instruction Type:Patient Education How to access health informa tion online - Detail Indication:Current nonsmoker (Renamed from Current non-smoker) Start:20-Feb-2019 Instruction Type:Patient Education Patient Instructions Indication:BMI 30.0-30.9,adult Start:20-Feb-2019 Instruction Type:Provider Instructions for Treatment How to access health informa tion online Indication:Current nonsmoker (Renamed from Current non-smoker) Start:11-Feb-2019 Instruction Type:Patient Education How to access health informa tion online - Detail Indication:Current nonsmoker (Renamed from Current non-smoker) Start:11-Feb-2019 Instruction Type:Patient Education Patient Instructions Indication:BMI 30.0-30.9,adult Start:11-Feb-2019 Instruction Type:Provider Instructions for Treatment How to access health informa tion online Indication:Current nonsmoker (Renamed from Current non-smoker) Start:08-Feb-2019 Instruction Type:Patient Education How to access health informa tion online - Detail Indication:Current nonsmoker (Renamed from Current non-smoker) Start:08-Feb-2019 Instruction Type:Patient Education Patient Instructions Indication:Current nonsmoker (Renamed from Current non-smoker) Start:08-Feb-2019 Instruction Type:Provider Instructions for Treatment How to access health informa tion online Indication:Current nonsmoker (Renamed from Current non-smoker) Start:22-Aug-2018 Instruction Type:Patient Education How to access health informa tion online - Detail Indication:Current nonsmoker (Renamed from Current non-smoker) Start:22-Aug-2018 Instruction Type:Patient Education Patient Instructions Indication:BMI 33.0-33.9,adult Start:22-Aug-2018 Instruction Type:Provider Instructions for Treatment How to access health informa tion online Indication:Current nonsmoker (Renamed from Current non-smoker) Start:21-May-2018 Instruction Type:Patient Education How to access health informa tion online - Detail Indication:Current nonsmoker (Renamed from Current non-smoker) Start:21-May-2018 Instruction Type:Patient Education Patient Instructions Indication:Rash of unknown cause Start:21-May-2018 Instruction Type:Provider Instructions for Treatment How to access health informa tion online Indication:Current nonsmoker (Renamed from Current non-smoker) Start:16-Feb-2018 Instruction Type:Patient Education How to access health informa tion online - Detail Indication:Current nonsmoker (Renamed from Current non-smoker) Start:16-Feb-2018 Instruction Type:Patient Education Patient Instructions Indication:CKD stage G2/A1, GFR 60-89 and albumin creatinine ratio <30 mg/g Start:16-Feb-2018 Instruction Type:Provider Instructions for Treatment How to access health informa tion online Indication:BMI 32.0-32.9,adult Start:01-Jan-2018 Instruction Type:Patient Education How to access health informa tion online - Detail Indication:BMI 32.0-32.9,adult Start:01-Jan-2018 Instruction Type:Patient Education Patient Instructions Indication:Cough Start:01-Jan-2018 Instruction Type:Provider Instructions for Treatment How to access health informa tion online Indication:Encounter for routine history and physical exam for male Start:30-Oct-2015 Instruction Type:Patient Education How to access health informa tion online - Detail Indication:Encounter for routine history and physical exam for male Start:30-Oct-2015 Instruction Type:Patient Education Patient Instructions Indication:Encounter for routine history and physical exam for male Start:30-Oct-2015 Instruction Type:Provider Instructions for Treatment [facility]; [facility] Work Phone: Instructions* Name Dates Details Patient Instructions Indication:BMI 35.0-35.9,adult Start:11-Aug-2021 Instruction Type:Provider Instructions for Treatment How to Access Health Informa tion Online using Patient Portal and [employer] Indication:Current nonsmoker (Renamed from Current non-smoker) Start:11-Aug-2021 Instruction Type:Patient Education Patient Instructions Indication:Anticoagulated Start:14-Jul-2021 Instruction Type:Provider Instructions for Treatment How to Access Health Informa tion Online using Patient Portal and [employer] Indication:Current nonsmoker (Renamed from Current non-smoker) Start:14-Jul-2021 Instruction Type:Patient Education Patient Instructions Indication:Current nonsmoker (Renamed from Current non-smoker) Start:11-Jun-2021 Instruction Type:Provider Instructions for Treatment How to Access Health Informa tion Online using Patient Portal and [employer] Indication:Current nonsmoker (Renamed from Current non-smoker) Start:11-Jun-2021 Instruction Type:Patient Education Patient Instructions Indication:Current nonsmoker (Renamed from Current non-smoker) Start:09-Feb-2021 Instruction Type:Provider Instructions for Treatment How to Access Health Informa tion Online using Patient Portal and [employer] Indication:Current nonsmoker (Renamed from Current non-smoker) Start:09-Feb-2021 Instruction Type:Patient Education DISCONTINUED - TSH (THYROID STIMULATING HORMONE) (08484) Indication:Hypothyroid Start:05-Oct-2020 Instruction Type:Patient Education DISCONTINUED - METABOLIC SUTTON EL, COMPREHENSIVE (63320) Indication:Elevated liver enzymes Start:05-Oct-2020 Instruction Type:Patient Education DISCONTINUED - LIPID PANEL ( 88949) Indication:Elevated liver enzymes Start:05-Oct-2020 Instruction Type:Patient Education DISCONTINUED - CBC, PLATELET S & AUT DIFF (88563) Indication:Elevated liver enzymes Start:05-Oct-2020 Instruction Type:Patient Education DISCONTINUED - METABOLIC SUTTON EL, COMPREHENSIVE (29298) Indication:Elevated liver enzymes Start:05-Oct-2020 Instruction Type:Patient Education DISCONTINUED - MICROALBUMIN: CREATININE RATIO (83217) AND (04566) Indication:Hypertension Start:05-Oct-2020 Instruction Type:Patient Education DISCONTINUED - TSH (36743) Indication:Hypertension Start:05-Oct-2020 Instruction Type:Patient Education DISCONTINUED - CBC, PLATELET S & AUT DIFF (20970) Indication:Hypertension Start:05-Oct-2020 Instruction Type:Patient Education DISCONTINUED - METABOLIC SUTTON EL, COMPREHENSIVE (26104) Indication:Hypertension Start:05-Oct-2020 Instruction Type:Patient Education DISCONTINUED - METABOLIC SUTTON EL, COMPREHENSIVE (15326) Indication:Hypertension Start:05-Oct-2020 Instruction Type:Patient Education DISCONTINUED - LIPID PANEL ( 27773) Indication:Hypercholesteremia Start:05-Oct-2020 Instruction Type:Patient Education Patient Instructions Indication:Elevated liver enzymes Start:05-Oct-2020 Instruction Type:Provider Instructions for Treatment How to Access Health Informa tion Online using Patient Portal and [employer] Indication:Current nonsmoker (Renamed from Current non-smoker) Start:05-Oct-2020 Instruction Type:Patient Education How to access health informa tion online Indication:Current nonsmoker (Renamed from Current non-smoker) Start:08-Jun-2020 Instruction Type:Patient Education How to access health informa tion online - Detail Indication:Current nonsmoker (Renamed from Current non-smoker) Start:08-Jun-2020 Instruction Type:Patient Education Patient Instructions Indication:Need for prophylactic vaccination and inoculation against influenza (Renamed from Need for immunization against influenza) Start:08-Jun-2020 Instruction Type:Provider Instructions for Treatment How to access health informa tion online Indication:Current nonsmoker (Renamed from Current non-smoker) Start:31-Jan-2020 Instruction Type:Patient Education How to access health informa tion online - Detail Indication:Current nonsmoker (Renamed from Current non-smoker) Start:31-Jan-2020 Instruction Type:Patient Education Patient Instructions Indication:Afib Start:31-Jan-2020 Instruction Type:Provider Instructions for Treatment How to access health informa tion online Indication:Current nonsmoker (Renamed from Current non-smoker) Start:30-Sep-2019 Instruction Type:Patient Education How to access health informa tion online - Detail Indication:Current nonsmoker (Renamed from Current non-smoker) Start:30-Sep-2019 Instruction Type:Patient Education Patient Instructions Indication:Current nonsmoker (Renamed from Current non-smoker) Start:30-Sep-2019 Instruction Type:Provider Instructions for Treatment How to access health informa tion online Indication:Current nonsmoker (Renamed from Current non-smoker) Start:24-May-2019 Instruction Type:Patient Education How to access health informa tion online - Detail Indication:Current nonsmoker (Renamed from Current non-smoker) Start:24-May-2019 Instruction Type:Patient Education Patient Instructions Indication:Screening for prostate cancer Start:24-May-2019 Instruction Type:Provider Instructions for Treatment How to access health informa tion online Indication:Current nonsmoker (Renamed from Current non-smoker) Start:20-Feb-2019 Instruction Type:Patient Education How to access health informa tion online - Detail Indication:Current nonsmoker (Renamed from Current non-smoker) Start:20-Feb-2019 Instruction Type:Patient Education Patient Instructions Indication:BMI 30.0-30.9,adult Start:20-Feb-2019 Instruction Type:Provider Instructions for Treatment How to access health informa tion online Indication:Current nonsmoker (Renamed from Current non-smoker) Start:11-Feb-2019 Instruction Type:Patient Education How to access health informa tion online - Detail Indication:Current nonsmoker (Renamed from Current non-smoker) Start:11-Feb-2019 Instruction Type:Patient Education Patient Instructions Indication:BMI 30.0-30.9,adult Start:11-Feb-2019 Instruction Type:Provider Instructions for Treatment How to access health informa tion online Indication:Current nonsmoker (Renamed from Current non-smoker) Start:08-Feb-2019 Instruction Type:Patient Education How to access health informa tion online - Detail Indication:Current nonsmoker (Renamed from Current non-smoker) Start:08-Feb-2019 Instruction Type:Patient Education Patient Instructions Indication:Current nonsmoker (Renamed from Current non-smoker) Start:08-Feb-2019 Instruction Type:Provider Instructions for Treatment How to access health informa tion online Indication:Current nonsmoker (Renamed from Current non-smoker) Start:22-Aug-2018 Instruction Type:Patient Education How to access health informa tion online - Detail Indication:Current nonsmoker (Renamed from Current non-smoker) Start:22-Aug-2018 Instruction Type:Patient Education Patient Instructions Indication:BMI 33.0-33.9,adult Start:22-Aug-2018 Instruction Type:Provider Instructions for Treatment How to access health informa tion online Indication:Current nonsmoker (Renamed from Current non-smoker) Start:21-May-2018 Instruction Type:Patient Education How to access health informa tion online - Detail Indication:Current nonsmoker (Renamed from Current non-smoker) Start:21-May-2018 Instruction Type:Patient Education Patient Instructions Indication:Rash of unknown cause Start:21-May-2018 Instruction Type:Provider Instructions for Treatment How to access health informa tion online Indication:Current nonsmoker (Renamed from Current non-smoker) Start:16-Feb-2018 Instruction Type:Patient Education How to access health informa tion online - Detail Indication:Current nonsmoker (Renamed from Current non-smoker) Start:16-Feb-2018 Instruction Type:Patient Education Patient Instructions Indication:CKD stage G2/A1, GFR 60-89 and albumin creatinine ratio <30 mg/g Start:16-Feb-2018 Instruction Type:Provider Instructions for Treatment How to access health informa tion online Indication:BMI 32.0-32.9,adult Start:01-Jan-2018 Instruction Type:Patient Education How to access health informa tion online - Detail Indication:BMI 32.0-32.9,adult Start:01-Jan-2018 Instruction Type:Patient Education Patient Instructions Indication:Cough Start:01-Jan-2018 Instruction Type:Provider Instructions for Treatment How to access health informa tion online Indication:Encounter for routine history and physical exam for male Start:30-Oct-2015 Instruction Type:Patient Education How to access health informa tion online - Detail Indication:Encounter for routine history and physical exam for male Start:30-Oct-2015 Instruction Type:Patient Education Patient Instructions Indication:Encounter for routine history and physical exam for male Start:30-Oct-2015 Instruction Type:Provider Instructions for Treatment [facility]; [facility] Work Phone: Instructions* Name Dates Details Patient Instructions Indication:BMI 35.0-35.9,adult Start:11-Aug-2021 Instruction Type:Provider Instructions for Treatment How to Access Health Informa tion Online using Patient Portal and [employer] Indication:Current nonsmoker (Renamed from Current non-smoker) Start:11-Aug-2021 Instruction Type:Patient Education Patient Instructions Indication:Anticoagulated Start:14-Jul-2021 Instruction Type:Provider Instructions for Treatment How to Access Health Informa tion Online using Patient Portal and [employer] Indication:Current nonsmoker (Renamed from Current non-smoker) Start:14-Jul-2021 Instruction Type:Patient Education Patient Instructions Indication:Current nonsmoker (Renamed from Current non-smoker) Start:11-Jun-2021 Instruction Type:Provider Instructions for Treatment How to Access Health Informa tion Online using Patient Portal and [employer] Indication:Current nonsmoker (Renamed from Current non-smoker) Start:11-Jun-2021 Instruction Type:Patient Education Patient Instructions Indication:Current nonsmoker (Renamed from Current non-smoker) Start:09-Feb-2021 Instruction Type:Provider Instructions for Treatment How to Access Health Informa tion Online using Patient Portal and [employer] Apps Indication:Current nonsmoker (Renamed from Current non-smoker) Start:09-Feb-2021 Instruction Type:Patient Education DISCONTINUED - TSH (THYROID STIMULATING HORMONE) (33751) Indication:Hypothyroid Start:05-Oct-2020 Instruction Type:Patient Education DISCONTINUED - METABOLIC SUTTON EL, COMPREHENSIVE (65783) Indication:Elevated liver enzymes Start:05-Oct-2020 Instruction Type:Patient Education DISCONTINUED - LIPID PANEL ( [id number]) Indication:Elevated liver enzymes Start:05-Oct-2020 Instruction Type:Patient Education DISCONTINUED - CBC, PLATELET S & AUT DIFF (29975) Indication:Elevated liver enzymes Start:05-Oct-2020 Instruction Type:Patient Education DISCONTINUED - METABOLIC SUTTON EL, COMPREHENSIVE (71530) Indication:Elevated liver enzymes Start:05-Oct-2020 Instruction Type:Patient Education DISCONTINUED - MICROALBUMIN: CREATININE RATIO (93298) AND (62799) Indication:Hypertension Start:05-Oct-2020 Instruction Type:Patient Education DISCONTINUED - TSH (40369) Indication:Hypertension Start:05-Oct-2020 Instruction Type:Patient Education DISCONTINUED - CBC, PLATELET S & AUT DIFF (52469) Indication:Hypertension Start:05-Oct-2020 Instruction Type:Patient Education DISCONTINUED - METABOLIC SUTTON EL, COMPREHENSIVE (12280) Indication:Hypertension Start:05-Oct-2020 Instruction Type:Patient Education DISCONTINUED - METABOLIC SUTTON EL, COMPREHENSIVE (91055) Indication:Hypertension Start:05-Oct-2020 Instruction Type:Patient Education DISCONTINUED - LIPID PANEL ( 94821) Indication:Hypercholesteremia Start:05-Oct-2020 Instruction Type:Patient Education Patient Instructions Indication:Elevated liver enzymes Start:05-Oct-2020 Instruction Type:Provider Instructions for Treatment How to Access Health Informa tion Online using Patient Portal and [employer] Apps Indication:Current nonsmoker (Renamed from Current non-smoker) Start:05-Oct-2020 Instruction Type:Patient Education How to access health informa tion online Indication:Current nonsmoker (Renamed from Current non-smoker) Start:08-Jun-2020 Instruction Type:Patient Education How to access health informa tion online - Detail Indication:Current nonsmoker (Renamed from Current non-smoker) Start:08-Jun-2020 Instruction Type:Patient Education Patient Instructions Indication:Need for prophylactic vaccination and inoculation against influenza (Renamed from Need for immunization against influenza) Start:08-Jun-2020 Instruction Type:Provider Instructions for Treatment How to access health informa tion online Indication:Current nonsmoker (Renamed from Current non-smoker) Start:31-Jan-2020 Instruction Type:Patient Education How to access health informa tion online - Detail Indication:Current nonsmoker (Renamed from Current non-smoker) Start:31-Jan-2020 Instruction Type:Patient Education Patient Instructions Indication:Afib Start:31-Jan-2020 Instruction Type:Provider Instructions for Treatment How to access health informa tion online Indication:Current nonsmoker (Renamed from Current non-smoker) Start:30-Sep-2019 Instruction Type:Patient Education How to access health informa tion online - Detail Indication:Current nonsmoker (Renamed from Current non-smoker) Start:30-Sep-2019 Instruction Type:Patient Education Patient Instructions Indication:Current nonsmoker (Renamed from Current non-smoker) Start:30-Sep-2019 Instruction Type:Provider Instructions for Treatment How to access health informa tion online Indication:Current nonsmoker (Renamed from Current non-smoker) Start:24-May-2019 Instruction Type:Patient Education How to access health informa tion online - Detail Indication:Current nonsmoker (Renamed from Current non-smoker) Start:24-May-2019 Instruction Type:Patient Education Patient Instructions Indication:Screening for prostate cancer Start:24-May-2019 Instruction Type:Provider Instructions for Treatment How to access health informa tion online Indication:Current nonsmoker (Renamed from Current non-smoker) Start:20-Feb-2019 Instruction Type:Patient Education How to access health informa tion online - Detail Indication:Current nonsmoker (Renamed from Current non-smoker) Start:20-Feb-2019 Instruction Type:Patient Education Patient Instructions Indication:BMI 30.0-30.9,adult Start:20-Feb-2019 Instruction Type:Provider Instructions for Treatment How to access health informa tion online Indication:Current nonsmoker (Renamed from Current non-smoker) Start:11-Feb-2019 Instruction Type:Patient Education How to access health informa tion online - Detail Indication:Current nonsmoker (Renamed from Current non-smoker) Start:11-Feb-2019 Instruction Type:Patient Education Patient Instructions Indication:BMI 30.0-30.9,adult Start:11-Feb-2019 Instruction Type:Provider Instructions for Treatment How to access health informa tion online Indication:Current nonsmoker (Renamed from Current non-smoker) Start:08-Feb-2019 Instruction Type:Patient Education How to access health informa tion online - Detail Indication:Current nonsmoker (Renamed from Current non-smoker) Start:08-Feb-2019 Instruction Type:Patient Education Patient Instructions Indication:Current nonsmoker (Renamed from Current non-smoker) Start:08-Feb-2019 Instruction Type:Provider Instructions for Treatment How to access health informa tion online Indication:Current nonsmoker (Renamed from Current non-smoker) Start:22-Aug-2018 Instruction Type:Patient Education How to access health informa tion online - Detail Indication:Current nonsmoker (Renamed from Current non-smoker) Start:22-Aug-2018 Instruction Type:Patient Education Patient Instructions Indication:BMI 33.0-33.9,adult Start:22-Aug-2018 Instruction Type:Provider Instructions for Treatment How to access health informa tion online Indication:Current nonsmoker (Renamed from Current non-smoker) Start:21-May-2018 Instruction Type:Patient Education How to access health informa tion online - Detail Indication:Current nonsmoker (Renamed from Current non-smoker) Start:21-May-2018 Instruction Type:Patient Education Patient Instructions Indication:Rash of unknown cause Start:21-May-2018 Instruction Type:Provider Instructions for Treatment How to access health informa tion online Indication:Current nonsmoker (Renamed from Current non-smoker) Start:16-Feb-2018 Instruction Type:Patient Education How to access health informa tion online - Detail Indication:Current nonsmoker (Renamed from Current non-smoker) Start:16-Feb-2018 Instruction Type:Patient Education Patient Instructions Indication:CKD stage G2/A1, GFR 60-89 and albumin creatinine ratio <30 mg/g Start:16-Feb-2018 Instruction Type:Provider Instructions for Treatment How to access health informa tion online Indication:BMI 32.0-32.9,adult Start:01-Jan-2018 Instruction Type:Patient Education How to access health informa tion online - Detail Indication:BMI 32.0-32.9,adult Start:01-Jan-2018 Instruction Type:Patient Education Patient Instructions Indication:Cough Start:01-Jan-2018 Instruction Type:Provider Instructions for Treatment How to access health informa tion online Indication:Encounter for routine history and physical exam for male Start:30-Oct-2015 Instruction Type:Patient Education How to access health informa tion online - Detail Indication:Encounter for routine history and physical exam for male Start:30-Oct-2015 Instruction Type:Patient Education Patient Instructions Indication:Encounter for routine history and physical exam for male Start:30-Oct-2015 Instruction Type:Provider Instructions for Treatment [facility]; [facility] Work Phone: Instructions* Name Dates Details Patient Instructions Indication:BMI 35.0-35.9,adult Start:11-Aug-2021 Instruction Type:Provider Instructions for Treatment How to Access Health Informa tion Online using Patient Portal and [employer] Indication:Current nonsmoker (Renamed from Current non-smoker) Start:11-Aug-2021 Instruction Type:Patient Education Patient Instructions Indication:Anticoagulated Start:14-Jul-2021 Instruction Type:Provider Instructions for Treatment How to Access Health Informa tion Online using Patient Portal and [employer] Indication:Current nonsmoker (Renamed from Current non-smoker) Start:14-Jul-2021 Instruction Type:Patient Education Patient Instructions Indication:Current nonsmoker (Renamed from Current non-smoker) Start:11-Jun-2021 Instruction Type:Provider Instructions for Treatment How to Access Health Informa tion Online using Patient Portal and [employer] Indication:Current nonsmoker (Renamed from Current non-smoker) Start:11-Jun-2021 Instruction Type:Patient Education Patient Instructions Indication:Current nonsmoker (Renamed from Current non-smoker) Start:09-Feb-2021 Instruction Type:Provider Instructions for Treatment How to Access Health Informa tion Online using Patient Portal and [employer] Indication:Current nonsmoker (Renamed from Current non-smoker) Start:09-Feb-2021 Instruction Type:Patient Education DISCONTINUED - TSH (THYROID STIMULATING HORMONE) (73495) Indication:Hypothyroid Start:05-Oct-2020 Instruction Type:Patient Education DISCONTINUED - METABOLIC SUTTON EL, COMPREHENSIVE (50452) Indication:Elevated liver enzymes Start:05-Oct-2020 Instruction Type:Patient Education DISCONTINUED - LIPID PANEL ( 28437) Indication:Elevated liver enzymes Start:05-Oct-2020 Instruction Type:Patient Education DISCONTINUED - CBC, PLATELET S & AUT DIFF (13406) Indication:Elevated liver enzymes Start:05-Oct-2020 Instruction Type:Patient Education DISCONTINUED - METABOLIC SUTTON EL, COMPREHENSIVE (72301) Indication:Elevated liver enzymes Start:05-Oct-2020 Instruction Type:Patient Education DISCONTINUED - MICROALBUMIN: CREATININE RATIO (77720) AND (66647) Indication:Hypertension Start:05-Oct-2020 Instruction Type:Patient Education DISCONTINUED - TSH (55404) Indication:Hypertension Start:05-Oct-2020 Instruction Type:Patient Education DISCONTINUED - CBC, PLATELET S & AUT DIFF (59831) Indication:Hypertension Start:05-Oct-2020 Instruction Type:Patient Education DISCONTINUED - METABOLIC SUTTON EL, COMPREHENSIVE (42483) Indication:Hypertension Start:05-Oct-2020 Instruction Type:Patient Education DISCONTINUED - METABOLIC SUTTON EL, COMPREHENSIVE (98858) Indication:Hypertension Start:05-Oct-2020 Instruction Type:Patient Education DISCONTINUED - LIPID PANEL ( 90805) Indication:Hypercholesteremia Start:05-Oct-2020 Instruction Type:Patient Education Patient Instructions Indication:Elevated liver enzymes Start:05-Oct-2020 Instruction Type:Provider Instructions for Treatment How to Access Health Informa tion Online using Patient Portal and [employer] Indication:Current nonsmoker (Renamed from Current non-smoker) Start:05-Oct-2020 Instruction Type:Patient Education How to access health informa tion online Indication:Current nonsmoker (Renamed from Current non-smoker) Start:08-Jun-2020 Instruction Type:Patient Education How to access health informa tion online - Detail Indication:Current nonsmoker (Renamed from Current non-smoker) Start:08-Jun-2020 Instruction Type:Patient Education Patient Instructions Indication:Need for prophylactic vaccination and inoculation against influenza (Renamed from Need for immunization against influenza) Start:08-Jun-2020 Instruction Type:Provider Instructions for Treatment How to access health informa tion online Indication:Current nonsmoker (Renamed from Current non-smoker) Start:31-Jan-2020 Instruction Type:Patient Education How to access health informa tion online - Detail Indication:Current nonsmoker (Renamed from Current non-smoker) Start:31-Jan-2020 Instruction Type:Patient Education Patient Instructions Indication:Afib Start:31-Jan-2020 Instruction Type:Provider Instructions for Treatment How to access health informa tion online Indication:Current nonsmoker (Renamed from Current non-smoker) Start:30-Sep-2019 Instruction Type:Patient Education How to access health informa tion online - Detail Indication:Current nonsmoker (Renamed from Current non-smoker) Start:30-Sep-2019 Instruction Type:Patient Education Patient Instructions Indication:Current nonsmoker (Renamed from Current non-smoker) Start:30-Sep-2019 Instruction Type:Provider Instructions for Treatment How to access health informa tion online Indication:Current nonsmoker (Renamed from Current non-smoker) Start:24-May-2019 Instruction Type:Patient Education How to access health informa tion online - Detail Indication:Current nonsmoker (Renamed from Current non-smoker) Start:24-May-2019 Instruction Type:Patient Education Patient Instructions Indication:Screening for prostate cancer Start:24-May-2019 Instruction Type:Provider Instructions for Treatment How to access health informa tion online Indication:Current nonsmoker (Renamed from Current non-smoker) Start:20-Feb-2019 Instruction Type:Patient Education How to access health informa tion online - Detail Indication:Current nonsmoker (Renamed from Current non-smoker) Start:20-Feb-2019 Instruction Type:Patient Education Patient Instructions Indication:BMI 30.0-30.9,adult Start:20-Feb-2019 Instruction Type:Provider Instructions for Treatment How to access health informa tion online Indication:Current nonsmoker (Renamed from Current non-smoker) Start:11-Feb-2019 Instruction Type:Patient Education How to access health informa tion online - Detail Indication:Current nonsmoker (Renamed from Current non-smoker) Start:11-Feb-2019 Instruction Type:Patient Education Patient Instructions Indication:BMI 30.0-30.9,adult Start:11-Feb-2019 Instruction Type:Provider Instructions for Treatment How to access health informa tion online Indication:Current nonsmoker (Renamed from Current non-smoker) Start:08-Feb-2019 Instruction Type:Patient Education How to access health informa tion online - Detail Indication:Current nonsmoker (Renamed from Current non-smoker) Start:08-Feb-2019 Instruction Type:Patient Education Patient Instructions Indication:Current nonsmoker (Renamed from Current non-smoker) Start:08-Feb-2019 Instruction Type:Provider Instructions for Treatment How to access health informa tion online Indication:Current nonsmoker (Renamed from Current non-smoker) Start:22-Aug-2018 Instruction Type:Patient Education How to access health informa tion online - Detail Indication:Current nonsmoker (Renamed from Current non-smoker) Start:22-Aug-2018 Instruction Type:Patient Education Patient Instructions Indication:BMI 33.0-33.9,adult Start:22-Aug-2018 Instruction Type:Provider Instructions for Treatment How to access health informa tion online Indication:Current nonsmoker (Renamed from Current non-smoker) Start:21-May-2018 Instruction Type:Patient Education How to access health informa tion online - Detail Indication:Current nonsmoker (Renamed from Current non-smoker) Start:21-May-2018 Instruction Type:Patient Education Patient Instructions Indication:Rash of unknown cause Start:21-May-2018 Instruction Type:Provider Instructions for Treatment How to access health informa tion online Indication:Current nonsmoker (Renamed from Current non-smoker) Start:16-Feb-2018 Instruction Type:Patient Education How to access health informa tion online - Detail Indication:Current nonsmoker (Renamed from Current non-smoker) Start:16-Feb-2018 Instruction Type:Patient Education Patient Instructions Indication:CKD stage G2/A1, GFR 60-89 and albumin creatinine ratio <30 mg/g Start:16-Feb-2018 Instruction Type:Provider Instructions for Treatment How to access health informa tion online Indication:BMI 32.0-32.9,adult Start:01-Jan-2018 Instruction Type:Patient Education How to access health informa tion online - Detail Indication:BMI 32.0-32.9,adult Start:01-Jan-2018 Instruction Type:Patient Education Patient Instructions Indication:Cough Start:01-Jan-2018 Instruction Type:Provider Instructions for Treatment How to access health informa tion online Indication:Encounter for routine history and physical exam for male Start:30-Oct-2015 Instruction Type:Patient Education How to access health informa tion online - Detail Indication:Encounter for routine history and physical exam for male Start:30-Oct-2015 Instruction Type:Patient Education Patient Instructions Indication:Encounter for routine history and physical exam for male Start:30-Oct-2015 Instruction Type:Provider Instructions for Treatment [facility]; [facility] Work Phone: Instructions* Name Dates Details Patient Instructions Indication:BMI 35.0-35.9,adult Start:11-Aug-2021 Instruction Type:Provider Instructions for Treatment How to Access Health Informa tion Online using Patient Portal and [employer] Start:11-Aug-2021 Instruction Type:Patient Education Patient Instructions Indication:Anticoagulated Start:14-Jul-2021 Instruction Type:Provider Instructions for Treatment How to Access Health Informa tion Online using Patient Portal and [employer] Start:14-Jul-2021 Instruction Type:Patient Education Patient Instructions Start:11-Jun-2021 Instruction Type:Provider Instructions for Treatment How to Access Health Informa tion Online using Patient Portal and [employer] Start:11-Jun-2021 Instruction Type:Patient Education Patient Instructions Start:09-Feb-2021 Instruction Type:Provider Instructions for Treatment How to Access Health Informa tion Online using Patient Portal and [employer] Start:09-Feb-2021 Instruction Type:Patient Education DISCONTINUED - TSH (THYROID STIMULATING HORMONE) ([id number]) Indication:Hypothyroid Start:05-Oct-2020 Instruction Type:Patient Education DISCONTINUED - METABOLIC SUTTON EL, COMPREHENSIVE (24490) Indication:Elevated liver enzymes Start:05-Oct-2020 Instruction Type:Patient Education DISCONTINUED - LIPID PANEL ( 57220) Indication:Elevated liver enzymes Start:05-Oct-2020 Instruction Type:Patient Education DISCONTINUED - CBC, PLATELET S & AUT DIFF (96920) Indication:Elevated liver enzymes Start:05-Oct-2020 Instruction Type:Patient Education DISCONTINUED - METABOLIC SUTTON EL, COMPREHENSIVE (10501) Indication:Elevated liver enzymes Start:05-Oct-2020 Instruction Type:Patient Education DISCONTINUED - MICROALBUMIN: CREATININE RATIO (86866) AND (17563) Indication:Hypertension Start:05-Oct-2020 Instruction Type:Patient Education DISCONTINUED - TSH (70900) Indication:Hypertension Start:05-Oct-2020 Instruction Type:Patient Education DISCONTINUED - CBC, PLATELET S & AUT DIFF (95446) Indication:Hypertension Start:05-Oct-2020 Instruction Type:Patient Education DISCONTINUED - METABOLIC SUTTON EL, COMPREHENSIVE (82512) Indication:Hypertension Start:05-Oct-2020 Instruction Type:Patient Education DISCONTINUED - METABOLIC SUTTON EL, COMPREHENSIVE (63771) Indication:Hypertension Start:05-Oct-2020 Instruction Type:Patient Education DISCONTINUED - LIPID PANEL ( 29962) Indication:Hypercholesteremia Start:05-Oct-2020 Instruction Type:Patient Education Patient Instructions Indication:Elevated liver enzymes Start:05-Oct-2020 Instruction Type:Provider Instructions for Treatment How to Access Health Informa tion Online using Patient Portal and [employer] Start:05-Oct-2020 Instruction Type:Patient Education How to access health informa tion online Start:08-Jun-2020 Instruction Type:Patient Education How to access health informa tion online - Detail Start:08-Jun-2020 Instruction Type:Patient Education Patient Instructions Indication:Need for prophylactic vaccination and inoculation against influenza (Renamed from Need for immunization against influenza) Start:08-Jun-2020 Instruction Type:Provider Instructions for Treatment How to access health informa tion online Start:31-Jan-2020 Instruction Type:Patient Education How to access health informa tion online - Detail Start:31-Jan-2020 Instruction Type:Patient Education Patient Instructions Indication:Afib Start:31-Jan-2020 Instruction Type:Provider Instructions for Treatment How to access health informa tion online Start:30-Sep-2019 Instruction Type:Patient Education How to access health informa tion online - Detail Start:30-Sep-2019 Instruction Type:Patient Education Patient Instructions Start:30-Sep-2019 Instruction Type:Provider Instructions for Treatment How to access health informa tion online Start:24-May-2019 Instruction Type:Patient Education How to access health informa tion online - Detail Start:24-May-2019 Instruction Type:Patient Education Patient Instructions Indication:Screening for prostate cancer Start:24-May-2019 Instruction Type:Provider Instructions for Treatment How to access health informa tion online Start:20-Feb-2019 Instruction Type:Patient Education How to access health informa tion online - Detail Start:20-Feb-2019 Instruction Type:Patient Education Patient Instructions Indication:BMI 30.0-30.9,adult Start:20-Feb-2019 Instruction Type:Provider Instructions for Treatment How to access health informa tion online Start:11-Feb-2019 Instruction Type:Patient Education How to access health informa tion online - Detail Start:11-Feb-2019 Instruction Type:Patient Education Patient Instructions Indication:BMI 30.0-30.9,adult Start:11-Feb-2019 Instruction Type:Provider Instructions for Treatment How to access health informa tion online Start:08-Feb-2019 Instruction Type:Patient Education How to access health informa tion online - Detail Start:08-Feb-2019 Instruction Type:Patient Education Patient Instructions Start:08-Feb-2019 Instruction Type:Provider Instructions for Treatment How to access health informa tion online Start:22-Aug-2018 Instruction Type:Patient Education How to access health informa tion online - Detail Start:22-Aug-2018 Instruction Type:Patient Education Patient Instructions Indication:BMI 33.0-33.9,adult Start:22-Aug-2018 Instruction Type:Provider Instructions for Treatment How to access health informa tion online Start:21-May-2018 Instruction Type:Patient Education How to access health informa tion online - Detail Start:21-May-2018 Instruction Type:Patient Education Patient Instructions Indication:Rash of unknown cause Start:21-May-2018 Instruction Type:Provider Instructions for Treatment How to access health informa tion online Start:16-Feb-2018 Instruction Type:Patient Education How to access health informa tion online - Detail Start:16-Feb-2018 Instruction Type:Patient Education Patient Instructions Indication:CKD stage G2/A1, GFR 60-89 and albumin creatinine ratio <30 mg/g Start:16-Feb-2018 Instruction Type:Provider Instructions for Treatment How to access health informa tion online Indication:BMI 32.0-32.9,adult Start:01-Jan-2018 Instruction Type:Patient Education How to access health informa tion online - Detail Indication:BMI 32.0-32.9,adult Start:01-Jan-2018 Instruction Type:Patient Education Patient Instructions Indication:Cough Start:01-Jan-2018 Instruction Type:Provider Instructions for Treatment How to access health informa tion online Indication:Encounter for routine history and physical exam for male Start:30-Oct-2015 Instruction Type:Patient Education How to access health informa tion online - Detail Indication:Encounter for routine history and physical exam for male Start:30-Oct-2015 Instruction Type:Patient Education Patient Instructions Indication:Encounter for routine history and physical exam for male Start:30-Oct-2015 Instruction Type:Provider Instructions for Treatment [facility]; [facility] Work Phone: Instructions* Name Dates Details How to Access Health Informa tion Online using Patient Portal and [employer] Apps Indication:Current nonsmoker (Renamed from Current non-smoker) Start:12-Jan-2022 Instruction Type:Patient Education Patient Instructions Indication:Current nonsmoker (Renamed from Current non-smoker) Start:12-Jan-2022 Instruction Type:Provider Instructions for Treatment Patient Instructions Indication:BMI 35.0-35.9,adult Start:11-Aug-2021 Instruction Type:Provider Instructions for Treatment How to Access Health Informa tion Online using Patient Portal and [employer] Apps Indication:Current nonsmoker (Renamed from Current non-smoker) Start:11-Aug-2021 Instruction Type:Patient Education Patient Instructions Indication:Anticoagulated Start:14-Jul-2021 Instruction Type:Provider Instructions for Treatment How to Access Health Informa tion Online using Patient Portal and [employer] Apps Indication:Current nonsmoker (Renamed from Current non-smoker) Start:14-Jul-2021 Instruction Type:Patient Education Patient Instructions Indication:Current nonsmoker (Renamed from Current non-smoker) Start:11-Jun-2021 Instruction Type:Provider Instructions for Treatment How to Access Health Informa tion Online using Patient Portal and [employer] Apps Indication:Current nonsmoker (Renamed from Current non-smoker) Start:11-Jun-2021 Instruction Type:Patient Education Patient Instructions Indication:Current nonsmoker (Renamed from Current non-smoker) Start:09-Feb-2021 Instruction Type:Provider Instructions for Treatment How to Access Health Informa tion Online using Patient Portal and [employer] Apps Indication:Current nonsmoker (Renamed from Current non-smoker) Start:09-Feb-2021 Instruction Type:Patient Education DISCONTINUED - TSH (THYROID STIMULATING HORMONE) (25885) Indication:Hypothyroid Start:05-Oct-2020 Instruction Type:Patient Education DISCONTINUED - METABOLIC SUTTON EL, COMPREHENSIVE ([id number]) Indication:Elevated liver enzymes Start:05-Oct-2020 Instruction Type:Patient Education DISCONTINUED - LIPID PANEL ( [id number]) Indication:Elevated liver enzymes Start:05-Oct-2020 Instruction Type:Patient Education DISCONTINUED - CBC, PLATELET S & AUT DIFF (64409) Indication:Elevated liver enzymes Start:05-Oct-2020 Instruction Type:Patient Education DISCONTINUED - METABOLIC SUTTON EL, COMPREHENSIVE (52683) Indication:Elevated liver enzymes Start:05-Oct-2020 Instruction Type:Patient Education DISCONTINUED - MICROALBUMIN: CREATININE RATIO (03598) AND (11721) Indication:Hypertension Start:05-Oct-2020 Instruction Type:Patient Education DISCONTINUED - TSH (81729) Indication:Hypertension Start:05-Oct-2020 Instruction Type:Patient Education DISCONTINUED - CBC, PLATELET S & AUT DIFF (32307) Indication:Hypertension Start:05-Oct-2020 Instruction Type:Patient Education DISCONTINUED - METABOLIC SUTTON EL, COMPREHENSIVE (11135) Indication:Hypertension Start:05-Oct-2020 Instruction Type:Patient Education DISCONTINUED - METABOLIC SUTTON EL, COMPREHENSIVE (89051) Indication:Hypertension Start:05-Oct-2020 Instruction Type:Patient Education DISCONTINUED - LIPID PANEL ( 86281) Indication:Hypercholesteremia Start:05-Oct-2020 Instruction Type:Patient Education Patient Instructions Indication:Elevated liver enzymes Start:05-Oct-2020 Instruction Type:Provider Instructions for Treatment How to Access Health Informa tion Online using Patient Portal and [employer] Indication:Current nonsmoker (Renamed from Current non-smoker) Start:05-Oct-2020 Instruction Type:Patient Education How to access health informa tion online Indication:Current nonsmoker (Renamed from Current non-smoker) Start:08-Jun-2020 Instruction Type:Patient Education How to access health informa tion online - Detail Indication:Current nonsmoker (Renamed from Current non-smoker) Start:08-Jun-2020 Instruction Type:Patient Education Patient Instructions Indication:Need for prophylactic vaccination and inoculation against influenza (Renamed from Need for immunization against influenza) Start:08-Jun-2020 Instruction Type:Provider Instructions for Treatment How to access health informa tion online Indication:Current nonsmoker (Renamed from Current non-smoker) Start:31-Jan-2020 Instruction Type:Patient Education How to access health informa tion online - Detail Indication:Current nonsmoker (Renamed from Current non-smoker) Start:31-Jan-2020 Instruction Type:Patient Education Patient Instructions Indication:Afib Start:31-Jan-2020 Instruction Type:Provider Instructions for Treatment How to access health informa tion online Indication:Current nonsmoker (Renamed from Current non-smoker) Start:30-Sep-2019 Instruction Type:Patient Education How to access health informa tion online - Detail Indication:Current nonsmoker (Renamed from Current non-smoker) Start:30-Sep-2019 Instruction Type:Patient Education Patient Instructions Indication:Current nonsmoker (Renamed from Current non-smoker) Start:30-Sep-2019 Instruction Type:Provider Instructions for Treatment How to access health informa tion online Indication:Current nonsmoker (Renamed from Current non-smoker) Start:24-May-2019 Instruction Type:Patient Education How to access health informa tion online - Detail Indication:Current nonsmoker (Renamed from Current non-smoker) Start:24-May-2019 Instruction Type:Patient Education Patient Instructions Indication:Screening for prostate cancer Start:24-May-2019 Instruction Type:Provider Instructions for Treatment How to access health informa tion online Indication:Current nonsmoker (Renamed from Current non-smoker) Start:20-Feb-2019 Instruction Type:Patient Education How to access health informa tion online - Detail Indication:Current nonsmoker (Renamed from Current non-smoker) Start:20-Feb-2019 Instruction Type:Patient Education Patient Instructions Indication:BMI 30.0-30.9,adult Start:20-Feb-2019 Instruction Type:Provider Instructions for Treatment How to access health informa tion online Indication:Current nonsmoker (Renamed from Current non-smoker) Start:11-Feb-2019 Instruction Type:Patient Education How to access health informa tion online - Detail Indication:Current nonsmoker (Renamed from Current non-smoker) Start:11-Feb-2019 Instruction Type:Patient Education Patient Instructions Indication:BMI 30.0-30.9,adult Start:11-Feb-2019 Instruction Type:Provider Instructions for Treatment How to access health informa tion online Indication:Current nonsmoker (Renamed from Current non-smoker) Start:08-Feb-2019 Instruction Type:Patient Education How to access health informa tion online - Detail Indication:Current nonsmoker (Renamed from Current non-smoker) Start:08-Feb-2019 Instruction Type:Patient Education Patient Instructions Indication:Current nonsmoker (Renamed from Current non-smoker) Start:08-Feb-2019 Instruction Type:Provider Instructions for Treatment How to access health informa tion online Indication:Current nonsmoker (Renamed from Current non-smoker) Start:22-Aug-2018 Instruction Type:Patient Education How to access health informa tion online - Detail Indication:Current nonsmoker (Renamed from Current non-smoker) Start:22-Aug-2018 Instruction Type:Patient Education Patient Instructions Indication:BMI 33.0-33.9,adult Start:22-Aug-2018 Instruction Type:Provider Instructions for Treatment How to access health informa tion online Indication:Current nonsmoker (Renamed from Current non-smoker) Start:21-May-2018 Instruction Type:Patient Education How to access health informa tion online - Detail Indication:Current nonsmoker (Renamed from Current non-smoker) Start:21-May-2018 Instruction Type:Patient Education Patient Instructions Indication:Rash of unknown cause Start:21-May-2018 Instruction Type:Provider Instructions for Treatment How to access health informa tion online Indication:Current nonsmoker (Renamed from Current non-smoker) Start:16-Feb-2018 Instruction Type:Patient Education How to access health informa tion online - Detail Indication:Current nonsmoker (Renamed from Current non-smoker) Start:16-Feb-2018 Instruction Type:Patient Education Patient Instructions Indication:CKD stage G2/A1, GFR 60-89 and albumin creatinine ratio <30 mg/g Start:16-Feb-2018 Instruction Type:Provider Instructions for Treatment How to access health informa tion online Indication:BMI 32.0-32.9,adult Start:01-Jan-2018 Instruction Type:Patient Education How to access health informa tion online - Detail Indication:BMI 32.0-32.9,adult Start:01-Jan-2018 Instruction Type:Patient Education Patient Instructions Indication:Cough Start:01-Jan-2018 Instruction Type:Provider Instructions for Treatment How to access health informa tion online Indication:Encounter for routine history and physical exam for male Start:30-Oct-2015 Instruction Type:Patient Education How to access health informa tion online - Detail Indication:Encounter for routine history and physical exam for male Start:30-Oct-2015 Instruction Type:Patient Education Patient Instructions Indication:Encounter for routine history and physical exam for male Start:30-Oct-2015 Instruction Type:Provider Instructions for Treatment [facility]; [facility] Work Phone: Instructions* Name Dates Details How to Access Health Informa tion Online using Patient Portal and [employer] Apps Indication:Current nonsmoker (Renamed from Current non-smoker) Start:12-Jan-2022 Instruction Type:Patient Education Patient Instructions Indication:Current nonsmoker (Renamed from Current non-smoker) Start:12-Jan-2022 Instruction Type:Provider Instructions for Treatment Patient Instructions Indication:BMI 35.0-35.9,adult Start:11-Aug-2021 Instruction Type:Provider Instructions for Treatment How to Access Health Informa tion Online using Patient Portal and [employer] Apps Indication:Current nonsmoker (Renamed from Current non-smoker) Start:11-Aug-2021 Instruction Type:Patient Education Patient Instructions Indication:Anticoagulated Start:14-Jul-2021 Instruction Type:Provider Instructions for Treatment How to Access Health Informa tion Online using Patient Portal and [employer] Apps Indication:Current nonsmoker (Renamed from Current non-smoker) Start:14-Jul-2021 Instruction Type:Patient Education Patient Instructions Indication:Current nonsmoker (Renamed from Current non-smoker) Start:11-Jun-2021 Instruction Type:Provider Instructions for Treatment How to Access Health Informa tion Online using Patient Portal and [employer] Apps Indication:Current nonsmoker (Renamed from Current non-smoker) Start:11-Jun-2021 Instruction Type:Patient Education Patient Instructions Indication:Current nonsmoker (Renamed from Current non-smoker) Start:09-Feb-2021 Instruction Type:Provider Instructions for Treatment How to Access Health Informa tion Online using Patient Portal and [employer] Apps Indication:Current nonsmoker (Renamed from Current non-smoker) Start:09-Feb-2021 Instruction Type:Patient Education DISCONTINUED - TSH (THYROID STIMULATING HORMONE) ([id number]) Indication:Hypothyroid Start:05-Oct-2020 Instruction Type:Patient Education DISCONTINUED - METABOLIC SUTTON EL, COMPREHENSIVE (85014) Indication:Elevated liver enzymes Start:05-Oct-2020 Instruction Type:Patient Education DISCONTINUED - LIPID PANEL ( [id number]) Indication:Elevated liver enzymes Start:05-Oct-2020 Instruction Type:Patient Education DISCONTINUED - CBC, PLATELET S & AUT DIFF (92894) Indication:Elevated liver enzymes Start:05-Oct-2020 Instruction Type:Patient Education DISCONTINUED - METABOLIC SUTTON EL, COMPREHENSIVE (69987) Indication:Elevated liver enzymes Start:05-Oct-2020 Instruction Type:Patient Education DISCONTINUED - MICROALBUMIN: CREATININE RATIO (42268) AND (14312) Indication:Hypertension Start:05-Oct-2020 Instruction Type:Patient Education DISCONTINUED - TSH (63808) Indication:Hypertension Start:05-Oct-2020 Instruction Type:Patient Education DISCONTINUED - CBC, PLATELET S & AUT DIFF (44127) Indication:Hypertension Start:05-Oct-2020 Instruction Type:Patient Education DISCONTINUED - METABOLIC SUTTON EL, COMPREHENSIVE (37355) Indication:Hypertension Start:05-Oct-2020 Instruction Type:Patient Education DISCONTINUED - METABOLIC SUTTON EL, COMPREHENSIVE (97199) Indication:Hypertension Start:05-Oct-2020 Instruction Type:Patient Education DISCONTINUED - LIPID PANEL ( 34671) Indication:Hypercholesteremia Start:05-Oct-2020 Instruction Type:Patient Education Patient Instructions Indication:Elevated liver enzymes Start:05-Oct-2020 Instruction Type:Provider Instructions for Treatment How to Access Health Informa tion Online using Patient Portal and [employer] Indication:Current nonsmoker (Renamed from Current non-smoker) Start:05-Oct-2020 Instruction Type:Patient Education How to access health informa tion online Indication:Current nonsmoker (Renamed from Current non-smoker) Start:08-Jun-2020 Instruction Type:Patient Education How to access health informa tion online - Detail Indication:Current nonsmoker (Renamed from Current non-smoker) Start:08-Jun-2020 Instruction Type:Patient Education Patient Instructions Indication:Need for prophylactic vaccination and inoculation against influenza (Renamed from Need for immunization against influenza) Start:08-Jun-2020 Instruction Type:Provider Instructions for Treatment How to access health informa tion online Indication:Current nonsmoker (Renamed from Current non-smoker) Start:31-Jan-2020 Instruction Type:Patient Education How to access health informa tion online - Detail Indication:Current nonsmoker (Renamed from Current non-smoker) Start:31-Jan-2020 Instruction Type:Patient Education Patient Instructions Indication:Afib Start:31-Jan-2020 Instruction Type:Provider Instructions for Treatment How to access health informa tion online Indication:Current nonsmoker (Renamed from Current non-smoker) Start:30-Sep-2019 Instruction Type:Patient Education How to access health informa tion online - Detail Indication:Current nonsmoker (Renamed from Current non-smoker) Start:30-Sep-2019 Instruction Type:Patient Education Patient Instructions Indication:Current nonsmoker (Renamed from Current non-smoker) Start:30-Sep-2019 Instruction Type:Provider Instructions for Treatment How to access health informa tion online Indication:Current nonsmoker (Renamed from Current non-smoker) Start:24-May-2019 Instruction Type:Patient Education How to access health informa tion online - Detail Indication:Current nonsmoker (Renamed from Current non-smoker) Start:24-May-2019 Instruction Type:Patient Education Patient Instructions Indication:Screening for prostate cancer Start:24-May-2019 Instruction Type:Provider Instructions for Treatment How to access health informa tion online Indication:Current nonsmoker (Renamed from Current non-smoker) Start:20-Feb-2019 Instruction Type:Patient Education How to access health informa tion online - Detail Indication:Current nonsmoker (Renamed from Current non-smoker) Start:20-Feb-2019 Instruction Type:Patient Education Patient Instructions Indication:BMI 30.0-30.9,adult Start:20-Feb-2019 Instruction Type:Provider Instructions for Treatment How to access health informa tion online Indication:Current nonsmoker (Renamed from Current non-smoker) Start:11-Feb-2019 Instruction Type:Patient Education How to access health informa tion online - Detail Indication:Current nonsmoker (Renamed from Current non-smoker) Start:11-Feb-2019 Instruction Type:Patient Education Patient Instructions Indication:BMI 30.0-30.9,adult Start:11-Feb-2019 Instruction Type:Provider Instructions for Treatment How to access health informa tion online Indication:Current nonsmoker (Renamed from Current non-smoker) Start:08-Feb-2019 Instruction Type:Patient Education How to access health informa tion online - Detail Indication:Current nonsmoker (Renamed from Current non-smoker) Start:08-Feb-2019 Instruction Type:Patient Education Patient Instructions Indication:Current nonsmoker (Renamed from Current non-smoker) Start:08-Feb-2019 Instruction Type:Provider Instructions for Treatment How to access health informa tion online Indication:Current nonsmoker (Renamed from Current non-smoker) Start:22-Aug-2018 Instruction Type:Patient Education How to access health informa tion online - Detail Indication:Current nonsmoker (Renamed from Current non-smoker) Start:22-Aug-2018 Instruction Type:Patient Education Patient Instructions Indication:BMI 33.0-33.9,adult Start:22-Aug-2018 Instruction Type:Provider Instructions for Treatment How to access health informa tion online Indication:Current nonsmoker (Renamed from Current non-smoker) Start:21-May-2018 Instruction Type:Patient Education How to access health informa tion online - Detail Indication:Current nonsmoker (Renamed from Current non-smoker) Start:21-May-2018 Instruction Type:Patient Education Patient Instructions Indication:Rash of unknown cause Start:21-May-2018 Instruction Type:Provider Instructions for Treatment How to access health informa tion online Indication:Current nonsmoker (Renamed from Current non-smoker) Start:16-Feb-2018 Instruction Type:Patient Education How to access health informa tion online - Detail Indication:Current nonsmoker (Renamed from Current non-smoker) Start:16-Feb-2018 Instruction Type:Patient Education Patient Instructions Indication:CKD stage G2/A1, GFR 60-89 and albumin creatinine ratio <30 mg/g Start:16-Feb-2018 Instruction Type:Provider Instructions for Treatment How to access health informa tion online Indication:BMI 32.0-32.9,adult Start:01-Jan-2018 Instruction Type:Patient Education How to access health informa tion online - Detail Indication:BMI 32.0-32.9,adult Start:01-Jan-2018 Instruction Type:Patient Education Patient Instructions Indication:Cough Start:01-Jan-2018 Instruction Type:Provider Instructions for Treatment How to access health informa tion online Indication:Encounter for routine history and physical exam for male Start:30-Oct-2015 Instruction Type:Patient Education How to access health informa tion online - Detail Indication:Encounter for routine history and physical exam for male Start:30-Oct-2015 Instruction Type:Patient Education Patient Instructions Indication:Encounter for routine history and physical exam for male Start:30-Oct-2015 Instruction Type:Provider Instructions for Treatment [facility]; [facility] Work Phone: Instructions* Name Dates Details Patient Instructions Indication:Current nonsmoker (Renamed from Current non-smoker) Start:15-Apr-2022 Instruction Type:Provider Instructions for Treatment How to Access Health Informa tion Online using Patient Portal and [employer] Apps Indication:Current nonsmoker (Renamed from Current non-smoker) Start:15-Apr-2022 Instruction Type:Patient Education How to Access Health Informa tion Online using Patient Portal and [employer] Apps Indication:Current nonsmoker (Renamed from Current non-smoker) Start:12-Jan-2022 Instruction Type:Patient Education Patient Instructions Indication:Current nonsmoker (Renamed from Current non-smoker) Start:12-Jan-2022 Instruction Type:Provider Instructions for Treatment Patient Instructions Indication:BMI 35.0-35.9,adult Start:11-Aug-2021 Instruction Type:Provider Instructions for Treatment How to Access Health Informa tion Online using Patient Portal and [employer] Apps Indication:Current nonsmoker (Renamed from Current non-smoker) Start:11-Aug-2021 Instruction Type:Patient Education Patient Instructions Indication:Anticoagulated Start:14-Jul-2021 Instruction Type:Provider Instructions for Treatment How to Access Health Informa tion Online using Patient Portal and [employer] Apps Indication:Current nonsmoker (Renamed from Current non-smoker) Start:14-Jul-2021 Instruction Type:Patient Education Patient Instructions Indication:Current nonsmoker (Renamed from Current non-smoker) Start:11-Jun-2021 Instruction Type:Provider Instructions for Treatment How to Access Health Informa tion Online using Patient Portal and [employer] Apps Indication:Current nonsmoker (Renamed from Current non-smoker) Start:11-Jun-2021 Instruction Type:Patient Education Patient Instructions Indication:Current nonsmoker (Renamed from Current non-smoker) Start:09-Feb-2021 Instruction Type:Provider Instructions for Treatment How to Access Health Informa tion Online using Patient Portal and [employer] Apps Indication:Current nonsmoker (Renamed from Current non-smoker) Start:09-Feb-2021 Instruction Type:Patient Education DISCONTINUED - TSH (THYROID STIMULATING HORMONE) (79739) Indication:Hypothyroid Start:05-Oct-2020 Instruction Type:Patient Education DISCONTINUED - METABOLIC SUTTON EL, COMPREHENSIVE (53499) Indication:Elevated liver enzymes Start:05-Oct-2020 Instruction Type:Patient Education DISCONTINUED - LIPID PANEL ( 47866) Indication:Elevated liver enzymes Start:05-Oct-2020 Instruction Type:Patient Education DISCONTINUED - CBC, PLATELET S & AUT DIFF (53657) Indication:Elevated liver enzymes Start:05-Oct-2020 Instruction Type:Patient Education DISCONTINUED - METABOLIC SUTTON EL, COMPREHENSIVE (33580) Indication:Elevated liver enzymes Start:05-Oct-2020 Instruction Type:Patient Education DISCONTINUED - MICROALBUMIN: CREATININE RATIO (89638) AND (67993) Indication:Hypertension Start:05-Oct-2020 Instruction Type:Patient Education DISCONTINUED - TSH (77130) Indication:Hypertension Start:05-Oct-2020 Instruction Type:Patient Education DISCONTINUED - CBC, PLATELET S & AUT DIFF (45893) Indication:Hypertension Start:05-Oct-2020 Instruction Type:Patient Education DISCONTINUED - METABOLIC SUTTON EL, COMPREHENSIVE (14229) Indication:Hypertension Start:05-Oct-2020 Instruction Type:Patient Education DISCONTINUED - METABOLIC SUTTON EL, COMPREHENSIVE (54456) Indication:Hypertension Start:05-Oct-2020 Instruction Type:Patient Education DISCONTINUED - LIPID PANEL ( 89093) Indication:Hypercholesteremia Start:05-Oct-2020 Instruction Type:Patient Education Patient Instructions Indication:Elevated liver enzymes Start:05-Oct-2020 Instruction Type:Provider Instructions for Treatment How to Access Health Informa tion Online using Patient Portal and [employer] Indication:Current nonsmoker (Renamed from Current non-smoker) Start:05-Oct-2020 Instruction Type:Patient Education How to access health informa tion online Indication:Current nonsmoker (Renamed from Current non-smoker) Start:08-Jun-2020 Instruction Type:Patient Education How to access health informa tion online - Detail Indication:Current nonsmoker (Renamed from Current non-smoker) Start:08-Jun-2020 Instruction Type:Patient Education Patient Instructions Indication:Need for prophylactic vaccination and inoculation against influenza (Renamed from Need for immunization against influenza) Start:08-Jun-2020 Instruction Type:Provider Instructions for Treatment How to access health informa tion online Indication:Current nonsmoker (Renamed from Current non-smoker) Start:31-Jan-2020 Instruction Type:Patient Education How to access health informa tion online - Detail Indication:Current nonsmoker (Renamed from Current non-smoker) Start:31-Jan-2020 Instruction Type:Patient Education Patient Instructions Indication:Afib Start:31-Jan-2020 Instruction Type:Provider Instructions for Treatment How to access health informa tion online Indication:Current nonsmoker (Renamed from Current non-smoker) Start:30-Sep-2019 Instruction Type:Patient Education How to access health informa tion online - Detail Indication:Current nonsmoker (Renamed from Current non-smoker) Start:30-Sep-2019 Instruction Type:Patient Education Patient Instructions Indication:Current nonsmoker (Renamed from Current non-smoker) Start:30-Sep-2019 Instruction Type:Provider Instructions for Treatment How to access health informa tion online Indication:Current nonsmoker (Renamed from Current non-smoker) Start:24-May-2019 Instruction Type:Patient Education How to access health informa tion online - Detail Indication:Current nonsmoker (Renamed from Current non-smoker) Start:24-May-2019 Instruction Type:Patient Education Patient Instructions Indication:Screening for prostate cancer Start:24-May-2019 Instruction Type:Provider Instructions for Treatment How to access health informa tion online Indication:Current nonsmoker (Renamed from Current non-smoker) Start:20-Feb-2019 Instruction Type:Patient Education How to access health informa tion online - Detail Indication:Current nonsmoker (Renamed from Current non-smoker) Start:20-Feb-2019 Instruction Type:Patient Education Patient Instructions Indication:BMI 30.0-30.9,adult Start:20-Feb-2019 Instruction Type:Provider Instructions for Treatment How to access health informa tion online Indication:Current nonsmoker (Renamed from Current non-smoker) Start:11-Feb-2019 Instruction Type:Patient Education How to access health informa tion online - Detail Indication:Current nonsmoker (Renamed from Current non-smoker) Start:11-Feb-2019 Instruction Type:Patient Education Patient Instructions Indication:BMI 30.0-30.9,adult Start:11-Feb-2019 Instruction Type:Provider Instructions for Treatment How to access health informa tion online Indication:Current nonsmoker (Renamed from Current non-smoker) Start:08-Feb-2019 Instruction Type:Patient Education How to access health informa tion online - Detail Indication:Current nonsmoker (Renamed from Current non-smoker) Start:08-Feb-2019 Instruction Type:Patient Education Patient Instructions Indication:Current nonsmoker (Renamed from Current non-smoker) Start:08-Feb-2019 Instruction Type:Provider Instructions for Treatment How to access health informa tion online Indication:Current nonsmoker (Renamed from Current non-smoker) Start:22-Aug-2018 Instruction Type:Patient Education How to access health informa tion online - Detail Indication:Current nonsmoker (Renamed from Current non-smoker) Start:22-Aug-2018 Instruction Type:Patient Education Patient Instructions Indication:BMI 33.0-33.9,adult Start:22-Aug-2018 Instruction Type:Provider Instructions for Treatment How to access health informa tion online Indication:Current nonsmoker (Renamed from Current non-smoker) Start:21-May-2018 Instruction Type:Patient Education How to access health informa tion online - Detail Indication:Current nonsmoker (Renamed from Current non-smoker) Start:21-May-2018 Instruction Type:Patient Education Patient Instructions Indication:Rash of unknown cause Start:21-May-2018 Instruction Type:Provider Instructions for Treatment How to access health informa tion online Indication:Current nonsmoker (Renamed from Current non-smoker) Start:16-Feb-2018 Instruction Type:Patient Education How to access health informa tion online - Detail Indication:Current nonsmoker (Renamed from Current non-smoker) Start:16-Feb-2018 Instruction Type:Patient Education Patient Instructions Indication:CKD stage G2/A1, GFR 60-89 and albumin creatinine ratio <30 mg/g Start:16-Feb-2018 Instruction Type:Provider Instructions for Treatment How to access health informa tion online Indication:BMI 32.0-32.9,adult Start:01-Jan-2018 Instruction Type:Patient Education How to access health informa tion online - Detail Indication:BMI 32.0-32.9,adult Start:01-Jan-2018 Instruction Type:Patient Education Patient Instructions Indication:Cough Start:01-Jan-2018 Instruction Type:Provider Instructions for Treatment How to access health informa tion online Indication:Encounter for routine history and physical exam for male Start:30-Oct-2015 Instruction Type:Patient Education How to access health informa tion online - Detail Indication:Encounter for routine history and physical exam for male Start:30-Oct-2015 Instruction Type:Patient Education Patient Instructions Indication:Encounter for routine history and physical exam for male Start:30-Oct-2015 Instruction Type:Provider Instructions for Treatment [facility]; [facility] Work Phone: Instructions* Name Dates Details Patient Instructions Indication:Current nonsmoker (Renamed from Current non-smoker) Start:10-May-2022 Instruction Type:Provider Instructions for Treatment How to Access Health Informa tion Online using Patient Portal and [employer] Apps Indication:Current nonsmoker (Renamed from Current non-smoker) Start:10-May-2022 Instruction Type:Patient Education Patient Instructions Indication:Current nonsmoker (Renamed from Current non-smoker) Start:15-Apr-2022 Instruction Type:Provider Instructions for Treatment How to Access Health Informa tion Online using Patient Portal and [employer] Apps Indication:Current nonsmoker (Renamed from Current non-smoker) Start:15-Apr-2022 Instruction Type:Patient Education How to Access Health Informa tion Online using Patient Portal and [employer] Apps Indication:Current nonsmoker (Renamed from Current non-smoker) Start:12-Jan-2022 Instruction Type:Patient Education Patient Instructions Indication:Current nonsmoker (Renamed from Current non-smoker) Start:12-Jan-2022 Instruction Type:Provider Instructions for Treatment Patient Instructions Indication:BMI 35.0-35.9,adult Start:11-Aug-2021 Instruction Type:Provider Instructions for Treatment How to Access Health Informa tion Online using Patient Portal and [employer] Apps Indication:Current nonsmoker (Renamed from Current non-smoker) Start:11-Aug-2021 Instruction Type:Patient Education Patient Instructions Indication:Anticoagulated Start:14-Jul-2021 Instruction Type:Provider Instructions for Treatment How to Access Health Informa tion Online using Patient Portal and [employer] Apps Indication:Current nonsmoker (Renamed from Current non-smoker) Start:14-Jul-2021 Instruction Type:Patient Education Patient Instructions Indication:Current nonsmoker (Renamed from Current non-smoker) Start:11-Jun-2021 Instruction Type:Provider Instructions for Treatment How to Access Health Informa tion Online using Patient Portal and [employer] Apps Indication:Current nonsmoker (Renamed from Current non-smoker) Start:11-Jun-2021 Instruction Type:Patient Education Patient Instructions Indication:Current nonsmoker (Renamed from Current non-smoker) Start:09-Feb-2021 Instruction Type:Provider Instructions for Treatment How to Access Health Informa tion Online using Patient Portal and [employer] Apps Indication:Current nonsmoker (Renamed from Current non-smoker) Start:09-Feb-2021 Instruction Type:Patient Education DISCONTINUED - TSH (THYROID STIMULATING HORMONE) (70097) Indication:Hypothyroid Start:05-Oct-2020 Instruction Type:Patient Education DISCONTINUED - METABOLIC SUTTON EL, COMPREHENSIVE (02346) Indication:Elevated liver enzymes Start:05-Oct-2020 Instruction Type:Patient Education DISCONTINUED - LIPID PANEL ( 80852) Indication:Elevated liver enzymes Start:05-Oct-2020 Instruction Type:Patient Education DISCONTINUED - CBC, PLATELET S & AUT DIFF (18463) Indication:Elevated liver enzymes Start:05-Oct-2020 Instruction Type:Patient Education DISCONTINUED - METABOLIC SUTTON EL, COMPREHENSIVE (90612) Indication:Elevated liver enzymes Start:05-Oct-2020 Instruction Type:Patient Education DISCONTINUED - MICROALBUMIN: CREATININE RATIO (59148) AND (70429) Indication:Hypertension Start:05-Oct-2020 Instruction Type:Patient Education DISCONTINUED - TSH (49306) Indication:Hypertension Start:05-Oct-2020 Instruction Type:Patient Education DISCONTINUED - CBC, PLATELET S & AUT DIFF (68799) Indication:Hypertension Start:05-Oct-2020 Instruction Type:Patient Education DISCONTINUED - METABOLIC SUTTON EL, COMPREHENSIVE (51318) Indication:Hypertension Start:05-Oct-2020 Instruction Type:Patient Education DISCONTINUED - METABOLIC SUTTON EL, COMPREHENSIVE (63774) Indication:Hypertension Start:05-Oct-2020 Instruction Type:Patient Education DISCONTINUED - LIPID PANEL ( 63276) Indication:Hypercholesteremia Start:05-Oct-2020 Instruction Type:Patient Education Patient Instructions Indication:Elevated liver enzymes Start:05-Oct-2020 Instruction Type:Provider Instructions for Treatment How to Access Health Informa tion Online using Patient Portal and [employer] Indication:Current nonsmoker (Renamed from Current non-smoker) Start:05-Oct-2020 Instruction Type:Patient Education How to access health informa tion online Indication:Current nonsmoker (Renamed from Current non-smoker) Start:08-Jun-2020 Instruction Type:Patient Education How to access health informa tion online - Detail Indication:Current nonsmoker (Renamed from Current non-smoker) Start:08-Jun-2020 Instruction Type:Patient Education Patient Instructions Indication:Need for prophylactic vaccination and inoculation against influenza (Renamed from Need for immunization against influenza) Start:08-Jun-2020 Instruction Type:Provider Instructions for Treatment How to access health informa tion online Indication:Current nonsmoker (Renamed from Current non-smoker) Start:31-Jan-2020 Instruction Type:Patient Education How to access health informa tion online - Detail Indication:Current nonsmoker (Renamed from Current non-smoker) Start:31-Jan-2020 Instruction Type:Patient Education Patient Instructions Indication:Afib Start:31-Jan-2020 Instruction Type:Provider Instructions for Treatment How to access health informa tion online Indication:Current nonsmoker (Renamed from Current non-smoker) Start:30-Sep-2019 Instruction Type:Patient Education How to access health informa tion online - Detail Indication:Current nonsmoker (Renamed from Current non-smoker) Start:30-Sep-2019 Instruction Type:Patient Education Patient Instructions Indication:Current nonsmoker (Renamed from Current non-smoker) Start:30-Sep-2019 Instruction Type:Provider Instructions for Treatment How to access health informa tion online Indication:Current nonsmoker (Renamed from Current non-smoker) Start:24-May-2019 Instruction Type:Patient Education How to access health informa tion online - Detail Indication:Current nonsmoker (Renamed from Current non-smoker) Start:24-May-2019 Instruction Type:Patient Education Patient Instructions Indication:Screening for prostate cancer Start:24-May-2019 Instruction Type:Provider Instructions for Treatment How to access health informa tion online Indication:Current nonsmoker (Renamed from Current non-smoker) Start:20-Feb-2019 Instruction Type:Patient Education How to access health informa tion online - Detail Indication:Current nonsmoker (Renamed from Current non-smoker) Start:20-Feb-2019 Instruction Type:Patient Education Patient Instructions Indication:BMI 30.0-30.9,adult Start:20-Feb-2019 Instruction Type:Provider Instructions for Treatment How to access health informa tion online Indication:Current nonsmoker (Renamed from Current non-smoker) Start:11-Feb-2019 Instruction Type:Patient Education How to access health informa tion online - Detail Indication:Current nonsmoker (Renamed from Current non-smoker) Start:11-Feb-2019 Instruction Type:Patient Education Patient Instructions Indication:BMI 30.0-30.9,adult Start:11-Feb-2019 Instruction Type:Provider Instructions for Treatment How to access health informa tion online Indication:Current nonsmoker (Renamed from Current non-smoker) Start:08-Feb-2019 Instruction Type:Patient Education How to access health informa tion online - Detail Indication:Current nonsmoker (Renamed from Current non-smoker) Start:08-Feb-2019 Instruction Type:Patient Education Patient Instructions Indication:Current nonsmoker (Renamed from Current non-smoker) Start:08-Feb-2019 Instruction Type:Provider Instructions for Treatment How to access health informa tion online Indication:Current nonsmoker (Renamed from Current non-smoker) Start:22-Aug-2018 Instruction Type:Patient Education How to access health informa tion online - Detail Indication:Current nonsmoker (Renamed from Current non-smoker) Start:22-Aug-2018 Instruction Type:Patient Education Patient Instructions Indication:BMI 33.0-33.9,adult Start:22-Aug-2018 Instruction Type:Provider Instructions for Treatment How to access health informa tion online Indication:Current nonsmoker (Renamed from Current non-smoker) Start:21-May-2018 Instruction Type:Patient Education How to access health informa tion online - Detail Indication:Current nonsmoker (Renamed from Current non-smoker) Start:21-May-2018 Instruction Type:Patient Education Patient Instructions Indication:Rash of unknown cause Start:21-May-2018 Instruction Type:Provider Instructions for Treatment How to access health informa tion online Indication:Current nonsmoker (Renamed from Current non-smoker) Start:16-Feb-2018 Instruction Type:Patient Education How to access health informa tion online - Detail Indication:Current nonsmoker (Renamed from Current non-smoker) Start:16-Feb-2018 Instruction Type:Patient Education Patient Instructions Indication:CKD stage G2/A1, GFR 60-89 and albumin creatinine ratio <30 mg/g Start:16-Feb-2018 Instruction Type:Provider Instructions for Treatment How to access health informa tion online Indication:BMI 32.0-32.9,adult Start:01-Jan-2018 Instruction Type:Patient Education How to access health informa tion online - Detail Indication:BMI 32.0-32.9,adult Start:01-Jan-2018 Instruction Type:Patient Education Patient Instructions Indication:Cough Start:01-Jan-2018 Instruction Type:Provider Instructions for Treatment How to access health informa tion online Indication:Encounter for routine history and physical exam for male Start:30-Oct-2015 Instruction Type:Patient Education How to access health informa tion online - Detail Indication:Encounter for routine history and physical exam for male Start:30-Oct-2015 Instruction Type:Patient Education Patient Instructions Indication:Encounter for routine history and physical exam for male Start:30-Oct-2015 Instruction Type:Provider Instructions for Treatment [facility]; [facility] Work Phone: Instructions* Name Dates Details Patient Instructions Indication:Current nonsmoker (Renamed from Current non-smoker) Start:10-May-2022 Instruction Type:Provider Instructions for Treatment How to Access Health Informa tion Online using Patient Portal and [employer] Apps Indication:Current nonsmoker (Renamed from Current non-smoker) Start:10-May-2022 Instruction Type:Patient Education Patient Instructions Indication:Current nonsmoker (Renamed from Current non-smoker) Start:15-Apr-2022 Instruction Type:Provider Instructions for Treatment How to Access Health Informa tion Online using Patient Portal and [employer] Apps Indication:Current nonsmoker (Renamed from Current non-smoker) Start:15-Apr-2022 Instruction Type:Patient Education How to Access Health Informa tion Online using Patient Portal and [employer] Apps Indication:Current nonsmoker (Renamed from Current non-smoker) Start:12-Jan-2022 Instruction Type:Patient Education Patient Instructions Indication:Current nonsmoker (Renamed from Current non-smoker) Start:12-Jan-2022 Instruction Type:Provider Instructions for Treatment Patient Instructions Indication:BMI 35.0-35.9,adult Start:11-Aug-2021 Instruction Type:Provider Instructions for Treatment How to Access Health Informa tion Online using Patient Portal and [employer] Indication:Current nonsmoker (Renamed from Current non-smoker) Start:11-Aug-2021 Instruction Type:Patient Education Patient Instructions Indication:Anticoagulated Start:14-Jul-2021 Instruction Type:Provider Instructions for Treatment How to Access Health Informa tion Online using Patient Portal and [employer] Indication:Current nonsmoker (Renamed from Current non-smoker) Start:14-Jul-2021 Instruction Type:Patient Education Patient Instructions Indication:Current nonsmoker (Renamed from Current non-smoker) Start:11-Jun-2021 Instruction Type:Provider Instructions for Treatment How to Access Health Informa tion Online using Patient Portal and [employer] Apps Indication:Current nonsmoker (Renamed from Current non-smoker) Start:11-Jun-2021 Instruction Type:Patient Education Patient Instructions Indication:Current nonsmoker (Renamed from Current non-smoker) Start:09-Feb-2021 Instruction Type:Provider Instructions for Treatment How to Access Health Informa tion Online using Patient Portal and [employer] Apps Indication:Current nonsmoker (Renamed from Current non-smoker) Start:09-Feb-2021 Instruction Type:Patient Education DISCONTINUED - TSH (THYROID STIMULATING HORMONE) (86165) Indication:Hypothyroid Start:05-Oct-2020 Instruction Type:Patient Education DISCONTINUED - METABOLIC SUTTON EL, COMPREHENSIVE (60054) Indication:Elevated liver enzymes Start:05-Oct-2020 Instruction Type:Patient Education DISCONTINUED - LIPID PANEL ( 64481) Indication:Elevated liver enzymes Start:05-Oct-2020 Instruction Type:Patient Education DISCONTINUED - CBC, PLATELET S & AUT DIFF (93947) Indication:Elevated liver enzymes Start:05-Oct-2020 Instruction Type:Patient Education DISCONTINUED - METABOLIC SUTTON EL, COMPREHENSIVE (51228) Indication:Elevated liver enzymes Start:05-Oct-2020 Instruction Type:Patient Education DISCONTINUED - MICROALBUMIN: CREATININE RATIO (71242) AND (16573) Indication:Hypertension Start:05-Oct-2020 Instruction Type:Patient Education DISCONTINUED - TSH (03614) Indication:Hypertension Start:05-Oct-2020 Instruction Type:Patient Education DISCONTINUED - CBC, PLATELET S & AUT DIFF (95476) Indication:Hypertension Start:05-Oct-2020 Instruction Type:Patient Education DISCONTINUED - METABOLIC SUTTON EL, COMPREHENSIVE (11213) Indication:Hypertension Start:05-Oct-2020 Instruction Type:Patient Education DISCONTINUED - METABOLIC SUTTON EL, COMPREHENSIVE (62344) Indication:Hypertension Start:05-Oct-2020 Instruction Type:Patient Education DISCONTINUED - LIPID PANEL ( 29633) Indication:Hypercholesteremia Start:05-Oct-2020 Instruction Type:Patient Education Patient Instructions Indication:Elevated liver enzymes Start:05-Oct-2020 Instruction Type:Provider Instructions for Treatment How to Access Health Informa tion Online using Patient Portal and [employer] Apps Indication:Current nonsmoker (Renamed from Current non-smoker) Start:05-Oct-2020 Instruction Type:Patient Education How to access health informa tion online Indication:Current nonsmoker (Renamed from Current non-smoker) Start:08-Jun-2020 Instruction Type:Patient Education How to access health informa tion online - Detail Indication:Current nonsmoker (Renamed from Current non-smoker) Start:08-Jun-2020 Instruction Type:Patient Education Patient Instructions Indication:Need for prophylactic vaccination and inoculation against influenza (Renamed from Need for immunization against influenza) Start:08-Jun-2020 Instruction Type:Provider Instructions for Treatment How to access health informa tion online Indication:Current nonsmoker (Renamed from Current non-smoker) Start:31-Jan-2020 Instruction Type:Patient Education How to access health informa tion online - Detail Indication:Current nonsmoker (Renamed from Current non-smoker) Start:31-Jan-2020 Instruction Type:Patient Education Patient Instructions Indication:Afib Start:31-Jan-2020 Instruction Type:Provider Instructions for Treatment How to access health informa tion online Indication:Current nonsmoker (Renamed from Current non-smoker) Start:30-Sep-2019 Instruction Type:Patient Education How to access health informa tion online - Detail Indication:Current nonsmoker (Renamed from Current non-smoker) Start:30-Sep-2019 Instruction Type:Patient Education Patient Instructions Indication:Current nonsmoker (Renamed from Current non-smoker) Start:30-Sep-2019 Instruction Type:Provider Instructions for Treatment How to access health informa tion online Indication:Current nonsmoker (Renamed from Current non-smoker) Start:24-May-2019 Instruction Type:Patient Education How to access health informa tion online - Detail Indication:Current nonsmoker (Renamed from Current non-smoker) Start:24-May-2019 Instruction Type:Patient Education Patient Instructions Indication:Screening for prostate cancer Start:24-May-2019 Instruction Type:Provider Instructions for Treatment How to access health informa tion online Indication:Current nonsmoker (Renamed from Current non-smoker) Start:20-Feb-2019 Instruction Type:Patient Education How to access health informa tion online - Detail Indication:Current nonsmoker (Renamed from Current non-smoker) Start:20-Feb-2019 Instruction Type:Patient Education Patient Instructions Indication:BMI 30.0-30.9,adult Start:20-Feb-2019 Instruction Type:Provider Instructions for Treatment How to access health informa tion online Indication:Current nonsmoker (Renamed from Current non-smoker) Start:11-Feb-2019 Instruction Type:Patient Education How to access health informa tion online - Detail Indication:Current nonsmoker (Renamed from Current non-smoker) Start:11-Feb-2019 Instruction Type:Patient Education Patient Instructions Indication:BMI 30.0-30.9,adult Start:11-Feb-2019 Instruction Type:Provider Instructions for Treatment How to access health informa tion online Indication:Current nonsmoker (Renamed from Current non-smoker) Start:08-Feb-2019 Instruction Type:Patient Education How to access health informa tion online - Detail Indication:Current nonsmoker (Renamed from Current non-smoker) Start:08-Feb-2019 Instruction Type:Patient Education Patient Instructions Indication:Current nonsmoker (Renamed from Current non-smoker) Start:08-Feb-2019 Instruction Type:Provider Instructions for Treatment How to access health informa tion online Indication:Current nonsmoker (Renamed from Current non-smoker) Start:22-Aug-2018 Instruction Type:Patient Education How to access health informa tion online - Detail Indication:Current nonsmoker (Renamed from Current non-smoker) Start:22-Aug-2018 Instruction Type:Patient Education Patient Instructions Indication:BMI 33.0-33.9,adult Start:22-Aug-2018 Instruction Type:Provider Instructions for Treatment How to access health informa tion online Indication:Current nonsmoker (Renamed from Current non-smoker) Start:21-May-2018 Instruction Type:Patient Education How to access health informa tion online - Detail Indication:Current nonsmoker (Renamed from Current non-smoker) Start:21-May-2018 Instruction Type:Patient Education Patient Instructions Indication:Rash of unknown cause Start:21-May-2018 Instruction Type:Provider Instructions for Treatment How to access health informa tion online Indication:Current nonsmoker (Renamed from Current non-smoker) Start:16-Feb-2018 Instruction Type:Patient Education How to access health informa tion online - Detail Indication:Current nonsmoker (Renamed from Current non-smoker) Start:16-Feb-2018 Instruction Type:Patient Education Patient Instructions Indication:CKD stage G2/A1, GFR 60-89 and albumin creatinine ratio <30 mg/g Start:16-Feb-2018 Instruction Type:Provider Instructions for Treatment How to access health informa tion online Indication:BMI 32.0-32.9,adult Start:01-Jan-2018 Instruction Type:Patient Education How to access health informa tion online - Detail Indication:BMI 32.0-32.9,adult Start:01-Jan-2018 Instruction Type:Patient Education Patient Instructions Indication:Cough Start:01-Jan-2018 Instruction Type:Provider Instructions for Treatment How to access health informa tion online Indication:Encounter for routine history and physical exam for male Start:30-Oct-2015 Instruction Type:Patient Education How to access health informa tion online - Detail Indication:Encounter for routine history and physical exam for male Start:30-Oct-2015 Instruction Type:Patient Education Patient Instructions Indication:Encounter for routine history and physical exam for male Start:30-Oct-2015 Instruction Type:Provider Instructions for Treatment [facility]; [facility] Work Phone: Instructions* Name Dates Details Patient Instructions Indication:Current nonsmoker (Renamed from Current non-smoker) Start:10-May-2022 Instruction Type:Provider Instructions for Treatment How to Access Health Informa tion Online using Patient Portal and [employer] Indication:Current nonsmoker (Renamed from Current non-smoker) Start:10-May-2022 Instruction Type:Patient Education Patient Instructions Indication:Current nonsmoker (Renamed from Current non-smoker) Start:15-Apr-2022 Instruction Type:Provider Instructions for Treatment How to Access Health Informa tion Online using Patient Portal and [employer] Indication:Current nonsmoker (Renamed from Current non-smoker) Start:15-Apr-2022 Instruction Type:Patient Education How to Access Health Informa tion Online using Patient Portal and [employer] Indication:Current nonsmoker (Renamed from Current non-smoker) Start:12-Jan-2022 Instruction Type:Patient Education Patient Instructions Indication:Current nonsmoker (Renamed from Current non-smoker) Start:12-Jan-2022 Instruction Type:Provider Instructions for Treatment Patient Instructions Indication:BMI 35.0-35.9,adult Start:11-Aug-2021 Instruction Type:Provider Instructions for Treatment How to Access Health Informa tion Online using Patient Portal and [employer] Apps Indication:Current nonsmoker (Renamed from Current non-smoker) Start:11-Aug-2021 Instruction Type:Patient Education Patient Instructions Indication:Anticoagulated Start:14-Jul-2021 Instruction Type:Provider Instructions for Treatment How to Access Health Informa tion Online using Patient Portal and [employer] Apps Indication:Current nonsmoker (Renamed from Current non-smoker) Start:14-Jul-2021 Instruction Type:Patient Education Patient Instructions Indication:Current nonsmoker (Renamed from Current non-smoker) Start:11-Jun-2021 Instruction Type:Provider Instructions for Treatment How to Access Health Informa tion Online using Patient Portal and [employer] Apps Indication:Current nonsmoker (Renamed from Current non-smoker) Start:11-Jun-2021 Instruction Type:Patient Education Patient Instructions Indication:Current nonsmoker (Renamed from Current non-smoker) Start:09-Feb-2021 Instruction Type:Provider Instructions for Treatment How to Access Health Informa tion Online using Patient Portal and [employer] Apps Indication:Current nonsmoker (Renamed from Current non-smoker) Start:09-Feb-2021 Instruction Type:Patient Education DISCONTINUED - TSH (THYROID STIMULATING HORMONE) (94705) Indication:Hypothyroid Start:05-Oct-2020 Instruction Type:Patient Education DISCONTINUED - METABOLIC SUTTON EL, COMPREHENSIVE (26883) Indication:Elevated liver enzymes Start:05-Oct-2020 Instruction Type:Patient Education DISCONTINUED - LIPID PANEL ( 22012) Indication:Elevated liver enzymes Start:05-Oct-2020 Instruction Type:Patient Education DISCONTINUED - CBC, PLATELET S & AUT DIFF (10172) Indication:Elevated liver enzymes Start:05-Oct-2020 Instruction Type:Patient Education DISCONTINUED - METABOLIC SUTTON EL, COMPREHENSIVE (05705) Indication:Elevated liver enzymes Start:05-Oct-2020 Instruction Type:Patient Education DISCONTINUED - MICROALBUMIN: CREATININE RATIO (29906) AND (02627) Indication:Hypertension Start:05-Oct-2020 Instruction Type:Patient Education DISCONTINUED - TSH (01183) Indication:Hypertension Start:05-Oct-2020 Instruction Type:Patient Education DISCONTINUED - CBC, PLATELET S & AUT DIFF (33747) Indication:Hypertension Start:05-Oct-2020 Instruction Type:Patient Education DISCONTINUED - METABOLIC SUTTON EL, COMPREHENSIVE (67929) Indication:Hypertension Start:05-Oct-2020 Instruction Type:Patient Education DISCONTINUED - METABOLIC SUTTON EL, COMPREHENSIVE (83872) Indication:Hypertension Start:05-Oct-2020 Instruction Type:Patient Education DISCONTINUED - LIPID PANEL ( 18506) Indication:Hypercholesteremia Start:05-Oct-2020 Instruction Type:Patient Education Patient Instructions Indication:Elevated liver enzymes Start:05-Oct-2020 Instruction Type:Provider Instructions for Treatment How to Access Health Informa tion Online using Patient Portal and [employer] Apps Indication:Current nonsmoker (Renamed from Current non-smoker) Start:05-Oct-2020 Instruction Type:Patient Education How to access health informa tion online Indication:Current nonsmoker (Renamed from Current non-smoker) Start:08-Jun-2020 Instruction Type:Patient Education How to access health informa tion online - Detail Indication:Current nonsmoker (Renamed from Current non-smoker) Start:08-Jun-2020 Instruction Type:Patient Education Patient Instructions Indication:Need for prophylactic vaccination and inoculation against influenza (Renamed from Need for immunization against influenza) Start:08-Jun-2020 Instruction Type:Provider Instructions for Treatment How to access health informa tion online Indication:Current nonsmoker (Renamed from Current non-smoker) Start:31-Jan-2020 Instruction Type:Patient Education How to access health informa tion online - Detail Indication:Current nonsmoker (Renamed from Current non-smoker) Start:31-Jan-2020 Instruction Type:Patient Education Patient Instructions Indication:Afib Start:31-Jan-2020 Instruction Type:Provider Instructions for Treatment How to access health informa tion online Indication:Current nonsmoker (Renamed from Current non-smoker) Start:30-Sep-2019 Instruction Type:Patient Education How to access health informa tion online - Detail Indication:Current nonsmoker (Renamed from Current non-smoker) Start:30-Sep-2019 Instruction Type:Patient Education Patient Instructions Indication:Current nonsmoker (Renamed from Current non-smoker) Start:30-Sep-2019 Instruction Type:Provider Instructions for Treatment How to access health informa tion online Indication:Current nonsmoker (Renamed from Current non-smoker) Start:24-May-2019 Instruction Type:Patient Education How to access health informa tion online - Detail Indication:Current nonsmoker (Renamed from Current non-smoker) Start:24-May-2019 Instruction Type:Patient Education Patient Instructions Indication:Screening for prostate cancer Start:24-May-2019 Instruction Type:Provider Instructions for Treatment How to access health informa tion online Indication:Current nonsmoker (Renamed from Current non-smoker) Start:20-Feb-2019 Instruction Type:Patient Education How to access health informa tion online - Detail Indication:Current nonsmoker (Renamed from Current non-smoker) Start:20-Feb-2019 Instruction Type:Patient Education Patient Instructions Indication:BMI 30.0-30.9,adult Start:20-Feb-2019 Instruction Type:Provider Instructions for Treatment How to access health informa tion online Indication:Current nonsmoker (Renamed from Current non-smoker) Start:11-Feb-2019 Instruction Type:Patient Education How to access health informa tion online - Detail Indication:Current nonsmoker (Renamed from Current non-smoker) Start:11-Feb-2019 Instruction Type:Patient Education Patient Instructions Indication:BMI 30.0-30.9,adult Start:11-Feb-2019 Instruction Type:Provider Instructions for Treatment How to access health informa tion online Indication:Current nonsmoker (Renamed from Current non-smoker) Start:08-Feb-2019 Instruction Type:Patient Education How to access health informa tion online - Detail Indication:Current nonsmoker (Renamed from Current non-smoker) Start:08-Feb-2019 Instruction Type:Patient Education Patient Instructions Indication:Current nonsmoker (Renamed from Current non-smoker) Start:08-Feb-2019 Instruction Type:Provider Instructions for Treatment How to access health informa tion online Indication:Current nonsmoker (Renamed from Current non-smoker) Start:22-Aug-2018 Instruction Type:Patient Education How to access health informa tion online - Detail Indication:Current nonsmoker (Renamed from Current non-smoker) Start:22-Aug-2018 Instruction Type:Patient Education Patient Instructions Indication:BMI 33.0-33.9,adult Start:22-Aug-2018 Instruction Type:Provider Instructions for Treatment How to access health informa tion online Indication:Current nonsmoker (Renamed from Current non-smoker) Start:21-May-2018 Instruction Type:Patient Education How to access health informa tion online - Detail Indication:Current nonsmoker (Renamed from Current non-smoker) Start:21-May-2018 Instruction Type:Patient Education Patient Instructions Indication:Rash of unknown cause Start:21-May-2018 Instruction Type:Provider Instructions for Treatment How to access health informa tion online Indication:Current nonsmoker (Renamed from Current non-smoker) Start:16-Feb-2018 Instruction Type:Patient Education How to access health informa tion online - Detail Indication:Current nonsmoker (Renamed from Current non-smoker) Start:16-Feb-2018 Instruction Type:Patient Education Patient Instructions Indication:CKD stage G2/A1, GFR 60-89 and albumin creatinine ratio <30 mg/g Start:16-Feb-2018 Instruction Type:Provider Instructions for Treatment How to access health informa tion online Indication:BMI 32.0-32.9,adult Start:01-Jan-2018 Instruction Type:Patient Education How to access health informa tion online - Detail Indication:BMI 32.0-32.9,adult Start:01-Jan-2018 Instruction Type:Patient Education Patient Instructions Indication:Cough Start:01-Jan-2018 Instruction Type:Provider Instructions for Treatment How to access health informa tion online Indication:Encounter for routine history and physical exam for male Start:30-Oct-2015 Instruction Type:Patient Education How to access health informa tion online - Detail Indication:Encounter for routine history and physical exam for male Start:30-Oct-2015 Instruction Type:Patient Education Patient Instructions Indication:Encounter for routine history and physical exam for male Start:30-Oct-2015 Instruction Type:Provider Instructions for Treatment [facility]; [facility] Work Phone: Instructions* Name Dates Details Patient Instructions Indication:Current nonsmoker (Renamed from Current non-smoker) Start:29-Jul-2022 Instruction Type:Provider Instructions for Treatment How to Access Health Informa tion Online using Patient Portal and [employer] Apps Indication:Current nonsmoker (Renamed from Current non-smoker) Start:29-Jul-2022 Instruction Type:Patient Education Patient Instructions Indication:Current nonsmoker (Renamed from Current non-smoker) Start:10-May-2022 Instruction Type:Provider Instructions for Treatment How to Access Health Informa tion Online using Patient Portal and [employer] Apps Indication:Current nonsmoker (Renamed from Current non-smoker) Start:10-May-2022 Instruction Type:Patient Education Patient Instructions Indication:Current nonsmoker (Renamed from Current non-smoker) Start:15-Apr-2022 Instruction Type:Provider Instructions for Treatment How to Access Health Informa tion Online using Patient Portal and [employer] Apps Indication:Current nonsmoker (Renamed from Current non-smoker) Start:15-Apr-2022 Instruction Type:Patient Education How to Access Health Informa tion Online using Patient Portal and [employer] Apps Indication:Current nonsmoker (Renamed from Current non-smoker) Start:12-Jan-2022 Instruction Type:Patient Education Patient Instructions Indication:Current nonsmoker (Renamed from Current non-smoker) Start:12-Jan-2022 Instruction Type:Provider Instructions for Treatment Patient Instructions Indication:BMI 35.0-35.9,adult Start:11-Aug-2021 Instruction Type:Provider Instructions for Treatment How to Access Health Informa tion Online using Patient Portal and [employer] Apps Indication:Current nonsmoker (Renamed from Current non-smoker) Start:11-Aug-2021 Instruction Type:Patient Education Patient Instructions Indication:Anticoagulated Start:14-Jul-2021 Instruction Type:Provider Instructions for Treatment How to Access Health Informa tion Online using Patient Portal and [employer] Apps Indication:Current nonsmoker (Renamed from Current non-smoker) Start:14-Jul-2021 Instruction Type:Patient Education Patient Instructions Indication:Current nonsmoker (Renamed from Current non-smoker) Start:11-Jun-2021 Instruction Type:Provider Instructions for Treatment How to Access Health Informa tion Online using Patient Portal and [employer] Apps Indication:Current nonsmoker (Renamed from Current non-smoker) Start:11-Jun-2021 Instruction Type:Patient Education Patient Instructions Indication:Current nonsmoker (Renamed from Current non-smoker) Start:09-Feb-2021 Instruction Type:Provider Instructions for Treatment How to Access Health Informa tion Online using Patient Portal and [employer] Apps Indication:Current nonsmoker (Renamed from Current non-smoker) Start:09-Feb-2021 Instruction Type:Patient Education DISCONTINUED - TSH (THYROID STIMULATING HORMONE) (89769) Indication:Hypothyroid Start:05-Oct-2020 Instruction Type:Patient Education DISCONTINUED - METABOLIC SUTTON EL, COMPREHENSIVE (87593) Indication:Elevated liver enzymes Start:05-Oct-2020 Instruction Type:Patient Education DISCONTINUED - LIPID PANEL ( 98095) Indication:Elevated liver enzymes Start:05-Oct-2020 Instruction Type:Patient Education DISCONTINUED - CBC, PLATELET S & AUT DIFF (99226) Indication:Elevated liver enzymes Start:05-Oct-2020 Instruction Type:Patient Education DISCONTINUED - METABOLIC SUTTON EL, COMPREHENSIVE (55621) Indication:Elevated liver enzymes Start:05-Oct-2020 Instruction Type:Patient Education DISCONTINUED - MICROALBUMIN: CREATININE RATIO (87728) AND (89250) Indication:Hypertension Start:05-Oct-2020 Instruction Type:Patient Education DISCONTINUED - TSH (35651) Indication:Hypertension Start:05-Oct-2020 Instruction Type:Patient Education DISCONTINUED - CBC, PLATELET S & AUT DIFF (15946) Indication:Hypertension Start:05-Oct-2020 Instruction Type:Patient Education DISCONTINUED - METABOLIC SUTTON EL, COMPREHENSIVE (47656) Indication:Hypertension Start:05-Oct-2020 Instruction Type:Patient Education DISCONTINUED - METABOLIC SUTTON EL, COMPREHENSIVE (42012) Indication:Hypertension Start:05-Oct-2020 Instruction Type:Patient Education DISCONTINUED - LIPID PANEL ( 43052) Indication:Hypercholesteremia Start:05-Oct-2020 Instruction Type:Patient Education Patient Instructions Indication:Elevated liver enzymes Start:05-Oct-2020 Instruction Type:Provider Instructions for Treatment How to Access Health Informa tion Online using Patient Portal and [employer] Apps Indication:Current nonsmoker (Renamed from Current non-smoker) Start:05-Oct-2020 Instruction Type:Patient Education How to access health informa tion online Indication:Current nonsmoker (Renamed from Current non-smoker) Start:08-Jun-2020 Instruction Type:Patient Education How to access health informa tion online - Detail Indication:Current nonsmoker (Renamed from Current non-smoker) Start:08-Jun-2020 Instruction Type:Patient Education Patient Instructions Indication:Need for prophylactic vaccination and inoculation against influenza (Renamed from Need for immunization against influenza) Start:08-Jun-2020 Instruction Type:Provider Instructions for Treatment How to access health informa tion online Indication:Current nonsmoker (Renamed from Current non-smoker) Start:31-Jan-2020 Instruction Type:Patient Education How to access health informa tion online - Detail Indication:Current nonsmoker (Renamed from Current non-smoker) Start:31-Jan-2020 Instruction Type:Patient Education Patient Instructions Indication:Afib Start:31-Jan-2020 Instruction Type:Provider Instructions for Treatment How to access health informa tion online Indication:Current nonsmoker (Renamed from Current non-smoker) Start:30-Sep-2019 Instruction Type:Patient Education How to access health informa tion online - Detail Indication:Current nonsmoker (Renamed from Current non-smoker) Start:30-Sep-2019 Instruction Type:Patient Education Patient Instructions Indication:Current nonsmoker (Renamed from Current non-smoker) Start:30-Sep-2019 Instruction Type:Provider Instructions for Treatment How to access health informa tion online Indication:Current nonsmoker (Renamed from Current non-smoker) Start:24-May-2019 Instruction Type:Patient Education How to access health informa tion online - Detail Indication:Current nonsmoker (Renamed from Current non-smoker) Start:24-May-2019 Instruction Type:Patient Education Patient Instructions Indication:Screening for prostate cancer Start:24-May-2019 Instruction Type:Provider Instructions for Treatment How to access health informa tion online Indication:Current nonsmoker (Renamed from Current non-smoker) Start:20-Feb-2019 Instruction Type:Patient Education How to access health informa tion online - Detail Indication:Current nonsmoker (Renamed from Current non-smoker) Start:20-Feb-2019 Instruction Type:Patient Education Patient Instructions Indication:BMI 30.0-30.9,adult Start:20-Feb-2019 Instruction Type:Provider Instructions for Treatment How to access health informa tion online Indication:Current nonsmoker (Renamed from Current non-smoker) Start:11-Feb-2019 Instruction Type:Patient Education How to access health informa tion online - Detail Indication:Current nonsmoker (Renamed from Current non-smoker) Start:11-Feb-2019 Instruction Type:Patient Education Patient Instructions Indication:BMI 30.0-30.9,adult Start:11-Feb-2019 Instruction Type:Provider Instructions for Treatment How to access health informa tion online Indication:Current nonsmoker (Renamed from Current non-smoker) Start:08-Feb-2019 Instruction Type:Patient Education How to access health informa tion online - Detail Indication:Current nonsmoker (Renamed from Current non-smoker) Start:08-Feb-2019 Instruction Type:Patient Education Patient Instructions Indication:Current nonsmoker (Renamed from Current non-smoker) Start:08-Feb-2019 Instruction Type:Provider Instructions for Treatment How to access health informa tion online Indication:Current nonsmoker (Renamed from Current non-smoker) Start:22-Aug-2018 Instruction Type:Patient Education How to access health informa tion online - Detail Indication:Current nonsmoker (Renamed from Current non-smoker) Start:22-Aug-2018 Instruction Type:Patient Education Patient Instructions Indication:BMI 33.0-33.9,adult Start:22-Aug-2018 Instruction Type:Provider Instructions for Treatment How to access health informa tion online Indication:Current nonsmoker (Renamed from Current non-smoker) Start:21-May-2018 Instruction Type:Patient Education How to access health informa tion online - Detail Indication:Current nonsmoker (Renamed from Current non-smoker) Start:21-May-2018 Instruction Type:Patient Education Patient Instructions Indication:Rash of unknown cause Start:21-May-2018 Instruction Type:Provider Instructions for Treatment How to access health informa tion online Indication:Current nonsmoker (Renamed from Current non-smoker) Start:16-Feb-2018 Instruction Type:Patient Education How to access health informa tion online - Detail Indication:Current nonsmoker (Renamed from Current non-smoker) Start:16-Feb-2018 Instruction Type:Patient Education Patient Instructions Indication:CKD stage G2/A1, GFR 60-89 and albumin creatinine ratio <30 mg/g Start:16-Feb-2018 Instruction Type:Provider Instructions for Treatment How to access health informa tion online Indication:BMI 32.0-32.9,adult Start:01-Jan-2018 Instruction Type:Patient Education How to access health informa tion online - Detail Indication:BMI 32.0-32.9,adult Start:01-Jan-2018 Instruction Type:Patient Education Patient Instructions Indication:Cough Start:01-Jan-2018 Instruction Type:Provider Instructions for Treatment How to access health informa tion online Indication:Encounter for routine history and physical exam for male Start:30-Oct-2015 Instruction Type:Patient Education How to access health informa tion online - Detail Indication:Encounter for routine history and physical exam for male Start:30-Oct-2015 Instruction Type:Patient Education Patient Instructions Indication:Encounter for routine history and physical exam for male Start:30-Oct-2015 Instruction Type:Provider Instructions for Treatment [facility]; [facility] Work Phone: Instructions* Name Dates Details Patient Instructions Indication:Current nonsmoker (Renamed from Current non-smoker) Start:29-Jul-2022 Instruction Type:Provider Instructions for Treatment How to Access Health Informa tion Online using Patient Portal and [employer] Apps Indication:Current nonsmoker (Renamed from Current non-smoker) Start:29-Jul-2022 Instruction Type:Patient Education Patient Instructions Indication:Current nonsmoker (Renamed from Current non-smoker) Start:10-May-2022 Instruction Type:Provider Instructions for Treatment How to Access Health Informa tion Online using Patient Portal and [employer] Apps Indication:Current nonsmoker (Renamed from Current non-smoker) Start:10-May-2022 Instruction Type:Patient Education Patient Instructions Indication:Current nonsmoker (Renamed from Current non-smoker) Start:15-Apr-2022 Instruction Type:Provider Instructions for Treatment How to Access Health Informa tion Online using Patient Portal and [employer] Apps Indication:Current nonsmoker (Renamed from Current non-smoker) Start:15-Apr-2022 Instruction Type:Patient Education How to Access Health Informa tion Online using Patient Portal and [employer] Apps Indication:Current nonsmoker (Renamed from Current non-smoker) Start:12-Jan-2022 Instruction Type:Patient Education Patient Instructions Indication:Current nonsmoker (Renamed from Current non-smoker) Start:12-Jan-2022 Instruction Type:Provider Instructions for Treatment Patient Instructions Indication:BMI 35.0-35.9,adult Start:11-Aug-2021 Instruction Type:Provider Instructions for Treatment How to Access Health Informa tion Online using Patient Portal and [employer] Indication:Current nonsmoker (Renamed from Current non-smoker) Start:11-Aug-2021 Instruction Type:Patient Education Patient Instructions Indication:Anticoagulated Start:14-Jul-2021 Instruction Type:Provider Instructions for Treatment How to Access Health Informa tion Online using Patient Portal and [employer] Apps Indication:Current nonsmoker (Renamed from Current non-smoker) Start:14-Jul-2021 Instruction Type:Patient Education Patient Instructions Indication:Current nonsmoker (Renamed from Current non-smoker) Start:11-Jun-2021 Instruction Type:Provider Instructions for Treatment How to Access Health Informa tion Online using Patient Portal and [employer] Apps Indication:Current nonsmoker (Renamed from Current non-smoker) Start:11-Jun-2021 Instruction Type:Patient Education Patient Instructions Indication:Current nonsmoker (Renamed from Current non-smoker) Start:09-Feb-2021 Instruction Type:Provider Instructions for Treatment How to Access Health Informa tion Online using Patient Portal and [employer] Apps Indication:Current nonsmoker (Renamed from Current non-smoker) Start:09-Feb-2021 Instruction Type:Patient Education DISCONTINUED - TSH (THYROID STIMULATING HORMONE) (24846) Indication:Hypothyroid Start:05-Oct-2020 Instruction Type:Patient Education DISCONTINUED - METABOLIC SUTTON EL, COMPREHENSIVE (41336) Indication:Elevated liver enzymes Start:05-Oct-2020 Instruction Type:Patient Education DISCONTINUED - LIPID PANEL ( 34888) Indication:Elevated liver enzymes Start:05-Oct-2020 Instruction Type:Patient Education DISCONTINUED - CBC, PLATELET S & AUT DIFF (27563) Indication:Elevated liver enzymes Start:05-Oct-2020 Instruction Type:Patient Education DISCONTINUED - METABOLIC SUTTON EL, COMPREHENSIVE (36635) Indication:Elevated liver enzymes Start:05-Oct-2020 Instruction Type:Patient Education DISCONTINUED - MICROALBUMIN: CREATININE RATIO (91710) AND (78290) Indication:Hypertension Start:05-Oct-2020 Instruction Type:Patient Education DISCONTINUED - TSH (76799) Indication:Hypertension Start:05-Oct-2020 Instruction Type:Patient Education DISCONTINUED - CBC, PLATELET S & AUT DIFF (52096) Indication:Hypertension Start:05-Oct-2020 Instruction Type:Patient Education DISCONTINUED - METABOLIC SUTTON EL, COMPREHENSIVE (22507) Indication:Hypertension Start:05-Oct-2020 Instruction Type:Patient Education DISCONTINUED - METABOLIC SUTTON , COMPREHENSIVE (98931) Indication:Hypertension Start:05-Oct-2020 Instruction Type:Patient Education DISCONTINUED - LIPID PANEL ( 55088) Indication:Hypercholesteremia Start:05-Oct-2020 Instruction Type:Patient Education Patient Instructions Indication:Elevated liver enzymes Start:05-Oct-2020 Instruction Type:Provider Instructions for Treatment How to Access Health Informa tion Online using Patient Portal and [employer] Apps Indication:Current nonsmoker (Renamed from Current non-smoker) Start:05-Oct-2020 Instruction Type:Patient Education How to access health informa tion online Indication:Current nonsmoker (Renamed from Current non-smoker) Start:08-Jun-2020 Instruction Type:Patient Education How to access health informa tion online - Detail Indication:Current nonsmoker (Renamed from Current non-smoker) Start:08-Jun-2020 Instruction Type:Patient Education Patient Instructions Indication:Need for prophylactic vaccination and inoculation against influenza (Renamed from Need for immunization against influenza) Start:08-Jun-2020 Instruction Type:Provider Instructions for Treatment How to access health informa tion online Indication:Current nonsmoker (Renamed from Current non-smoker) Start:31-Jan-2020 Instruction Type:Patient Education How to access health informa tion online - Detail Indication:Current nonsmoker (Renamed from Current non-smoker) Start:31-Jan-2020 Instruction Type:Patient Education Patient Instructions Indication:Afib Start:31-Jan-2020 Instruction Type:Provider Instructions for Treatment How to access health informa tion online Indication:Current nonsmoker (Renamed from Current non-smoker) Start:30-Sep-2019 Instruction Type:Patient Education How to access health informa tion online - Detail Indication:Current nonsmoker (Renamed from Current non-smoker) Start:30-Sep-2019 Instruction Type:Patient Education Patient Instructions Indication:Current nonsmoker (Renamed from Current non-smoker) Start:30-Sep-2019 Instruction Type:Provider Instructions for Treatment How to access health informa tion online Indication:Current nonsmoker (Renamed from Current non-smoker) Start:24-May-2019 Instruction Type:Patient Education How to access health informa tion online - Detail Indication:Current nonsmoker (Renamed from Current non-smoker) Start:24-May-2019 Instruction Type:Patient Education Patient Instructions Indication:Screening for prostate cancer Start:24-May-2019 Instruction Type:Provider Instructions for Treatment How to access health informa tion online Indication:Current nonsmoker (Renamed from Current non-smoker) Start:20-Feb-2019 Instruction Type:Patient Education How to access health informa tion online - Detail Indication:Current nonsmoker (Renamed from Current non-smoker) Start:20-Feb-2019 Instruction Type:Patient Education Patient Instructions Indication:BMI 30.0-30.9,adult Start:20-Feb-2019 Instruction Type:Provider Instructions for Treatment How to access health informa tion online Indication:Current nonsmoker (Renamed from Current non-smoker) Start:11-Feb-2019 Instruction Type:Patient Education How to access health informa tion online - Detail Indication:Current nonsmoker (Renamed from Current non-smoker) Start:11-Feb-2019 Instruction Type:Patient Education Patient Instructions Indication:BMI 30.0-30.9,adult Start:11-Feb-2019 Instruction Type:Provider Instructions for Treatment How to access health informa tion online Indication:Current nonsmoker (Renamed from Current non-smoker) Start:08-Feb-2019 Instruction Type:Patient Education How to access health informa tion online - Detail Indication:Current nonsmoker (Renamed from Current non-smoker) Start:08-Feb-2019 Instruction Type:Patient Education Patient Instructions Indication:Current nonsmoker (Renamed from Current non-smoker) Start:08-Feb-2019 Instruction Type:Provider Instructions for Treatment How to access health informa tion online Indication:Current nonsmoker (Renamed from Current non-smoker) Start:22-Aug-2018 Instruction Type:Patient Education How to access health informa tion online - Detail Indication:Current nonsmoker (Renamed from Current non-smoker) Start:22-Aug-2018 Instruction Type:Patient Education Patient Instructions Indication:BMI 33.0-33.9,adult Start:22-Aug-2018 Instruction Type:Provider Instructions for Treatment How to access health informa tion online Indication:Current nonsmoker (Renamed from Current non-smoker) Start:21-May-2018 Instruction Type:Patient Education How to access health informa tion online - Detail Indication:Current nonsmoker (Renamed from Current non-smoker) Start:21-May-2018 Instruction Type:Patient Education Patient Instructions Indication:Rash of unknown cause Start:21-May-2018 Instruction Type:Provider Instructions for Treatment How to access health informa tion online Indication:Current nonsmoker (Renamed from Current non-smoker) Start:16-Feb-2018 Instruction Type:Patient Education How to access health informa tion online - Detail Indication:Current nonsmoker (Renamed from Current non-smoker) Start:16-Feb-2018 Instruction Type:Patient Education Patient Instructions Indication:CKD stage G2/A1, GFR 60-89 and albumin creatinine ratio <30 mg/g Start:16-Feb-2018 Instruction Type:Provider Instructions for Treatment How to access health informa tion online Indication:BMI 32.0-32.9,adult Start:01-Jan-2018 Instruction Type:Patient Education How to access health informa tion online - Detail Indication:BMI 32.0-32.9,adult Start:01-Jan-2018 Instruction Type:Patient Education Patient Instructions Indication:Cough Start:01-Jan-2018 Instruction Type:Provider Instructions for Treatment How to access health informa tion online Indication:Encounter for routine history and physical exam for male Start:30-Oct-2015 Instruction Type:Patient Education How to access health informa tion online - Detail Indication:Encounter for routine history and physical exam for male Start:30-Oct-2015 Instruction Type:Patient Education Patient Instructions Indication:Encounter for routine history and physical exam for male Start:30-Oct-2015 Instruction Type:Provider Instructions for Treatment [facility] Work Phone: Instructions* Name Dates Details How to Access Health Informa tion Online using Patient Portal and [employer] Apps Indication:BMI 34.0-34.9,adult Start:30-Nov-2022 Instruction Type:Patient Education Patient Instructions Indication:BMI 34.0-34.9,adult Start:30-Nov-2022 Instruction Type:Provider Instructions for Treatment Patient Instructions Indication:Current nonsmoker (Renamed from Current non-smoker) Start:29-Jul-2022 Instruction Type:Provider Instructions for Treatment How to Access Health Informa tion Online using Patient Portal and [employer] Apps Indication:Current nonsmoker (Renamed from Current non-smoker) Start:29-Jul-2022 Instruction Type:Patient Education Patient Instructions Indication:Current nonsmoker (Renamed from Current non-smoker) Start:10-May-2022 Instruction Type:Provider Instructions for Treatment How to Access Health Informa tion Online using Patient Portal and [employer] Indication:Current nonsmoker (Renamed from Current non-smoker) Start:10-May-2022 Instruction Type:Patient Education Patient Instructions Indication:Current nonsmoker (Renamed from Current non-smoker) Start:15-Apr-2022 Instruction Type:Provider Instructions for Treatment How to Access Health Informa tion Online using Patient Portal and [employer] Indication:Current nonsmoker (Renamed from Current non-smoker) Start:15-Apr-2022 Instruction Type:Patient Education How to Access Health Informa tion Online using Patient Portal and [employer] Indication:Current nonsmoker (Renamed from Current non-smoker) Start:12-Jan-2022 Instruction Type:Patient Education Patient Instructions Indication:Current nonsmoker (Renamed from Current non-smoker) Start:12-Jan-2022 Instruction Type:Provider Instructions for Treatment Patient Instructions Indication:BMI 35.0-35.9,adult Start:11-Aug-2021 Instruction Type:Provider Instructions for Treatment How to Access Health Informa tion Online using Patient Portal and [employer] Indication:Current nonsmoker (Renamed from Current non-smoker) Start:11-Aug-2021 Instruction Type:Patient Education Patient Instructions Indication:Anticoagulated Start:14-Jul-2021 Instruction Type:Provider Instructions for Treatment How to Access Health Informa tion Online using Patient Portal and [employer] Indication:Current nonsmoker (Renamed from Current non-smoker) Start:14-Jul-2021 Instruction Type:Patient Education Patient Instructions Indication:Current nonsmoker (Renamed from Current non-smoker) Start:11-Jun-2021 Instruction Type:Provider Instructions for Treatment How to Access Health Informa tion Online using Patient Portal and [employer] Indication:Current nonsmoker (Renamed from Current non-smoker) Start:11-Jun-2021 Instruction Type:Patient Education Patient Instructions Indication:Current nonsmoker (Renamed from Current non-smoker) Start:09-Feb-2021 Instruction Type:Provider Instructions for Treatment How to Access Health Informa tion Online using Patient Portal and [employer] Indication:Current nonsmoker (Renamed from Current non-smoker) Start:09-Feb-2021 Instruction Type:Patient Education DISCONTINUED - TSH (THYROID STIMULATING HORMONE) (85390) Indication:Hypothyroid Start:05-Oct-2020 Instruction Type:Patient Education DISCONTINUED - METABOLIC SUTTON EL, COMPREHENSIVE (18869) Indication:Elevated liver enzymes Start:05-Oct-2020 Instruction Type:Patient Education DISCONTINUED - LIPID PANEL ( 59362) Indication:Elevated liver enzymes Start:05-Oct-2020 Instruction Type:Patient Education DISCONTINUED - CBC, PLATELET S & AUT DIFF (89985) Indication:Elevated liver enzymes Start:05-Oct-2020 Instruction Type:Patient Education DISCONTINUED - METABOLIC SUTTON EL, COMPREHENSIVE (19737) Indication:Elevated liver enzymes Start:05-Oct-2020 Instruction Type:Patient Education DISCONTINUED - MICROALBUMIN: CREATININE RATIO (77148) AND (87883) Indication:Hypertension Start:05-Oct-2020 Instruction Type:Patient Education DISCONTINUED - TSH (87609) Indication:Hypertension Start:05-Oct-2020 Instruction Type:Patient Education DISCONTINUED - CBC, PLATELET S & AUT DIFF (23047) Indication:Hypertension Start:05-Oct-2020 Instruction Type:Patient Education DISCONTINUED - METABOLIC SUTTON EL, COMPREHENSIVE (82577) Indication:Hypertension Start:05-Oct-2020 Instruction Type:Patient Education DISCONTINUED - METABOLIC SUTTON EL, COMPREHENSIVE (57227) Indication:Hypertension Start:05-Oct-2020 Instruction Type:Patient Education DISCONTINUED - LIPID PANEL ( 97425) Indication:Hypercholesteremia Start:05-Oct-2020 Instruction Type:Patient Education Patient Instructions Indication:Elevated liver enzymes Start:05-Oct-2020 Instruction Type:Provider Instructions for Treatment How to Access Health Informa tion Online using Patient Portal and [employer] Apps Indication:Current nonsmoker (Renamed from Current non-smoker) Start:05-Oct-2020 Instruction Type:Patient Education How to access health informa tion online Indication:Current nonsmoker (Renamed from Current non-smoker) Start:08-Jun-2020 Instruction Type:Patient Education How to access health informa tion online - Detail Indication:Current nonsmoker (Renamed from Current non-smoker) Start:08-Jun-2020 Instruction Type:Patient Education Patient Instructions Indication:Need for prophylactic vaccination and inoculation against influenza (Renamed from Need for immunization against influenza) Start:08-Jun-2020 Instruction Type:Provider Instructions for Treatment How to access health informa tion online Indication:Current nonsmoker (Renamed from Current non-smoker) Start:31-Jan-2020 Instruction Type:Patient Education How to access health informa tion online - Detail Indication:Current nonsmoker (Renamed from Current non-smoker) Start:31-Jan-2020 Instruction Type:Patient Education Patient Instructions Indication:Afib Start:31-Jan-2020 Instruction Type:Provider Instructions for Treatment How to access health informa tion online Indication:Current nonsmoker (Renamed from Current non-smoker) Start:30-Sep-2019 Instruction Type:Patient Education How to access health informa tion online - Detail Indication:Current nonsmoker (Renamed from Current non-smoker) Start:30-Sep-2019 Instruction Type:Patient Education Patient Instructions Indication:Current nonsmoker (Renamed from Current non-smoker) Start:30-Sep-2019 Instruction Type:Provider Instructions for Treatment How to access health informa tion online Indication:Current nonsmoker (Renamed from Current non-smoker) Start:24-May-2019 Instruction Type:Patient Education How to access health informa tion online - Detail Indication:Current nonsmoker (Renamed from Current non-smoker) Start:24-May-2019 Instruction Type:Patient Education Patient Instructions Indication:Screening for prostate cancer Start:24-May-2019 Instruction Type:Provider Instructions for Treatment How to access health informa tion online Indication:Current nonsmoker (Renamed from Current non-smoker) Start:20-Feb-2019 Instruction Type:Patient Education How to access health informa tion online - Detail Indication:Current nonsmoker (Renamed from Current non-smoker) Start:20-Feb-2019 Instruction Type:Patient Education Patient Instructions Indication:BMI 30.0-30.9,adult Start:20-Feb-2019 Instruction Type:Provider Instructions for Treatment How to access health informa tion online Indication:Current nonsmoker (Renamed from Current non-smoker) Start:11-Feb-2019 Instruction Type:Patient Education How to access health informa tion online - Detail Indication:Current nonsmoker (Renamed from Current non-smoker) Start:11-Feb-2019 Instruction Type:Patient Education Patient Instructions Indication:BMI 30.0-30.9,adult Start:11-Feb-2019 Instruction Type:Provider Instructions for Treatment How to access health informa tion online Indication:Current nonsmoker (Renamed from Current non-smoker) Start:08-Feb-2019 Instruction Type:Patient Education How to access health informa tion online - Detail Indication:Current nonsmoker (Renamed from Current non-smoker) Start:08-Feb-2019 Instruction Type:Patient Education Patient Instructions Indication:Current nonsmoker (Renamed from Current non-smoker) Start:08-Feb-2019 Instruction Type:Provider Instructions for Treatment How to access health informa tion online Indication:Current nonsmoker (Renamed from Current non-smoker) Start:22-Aug-2018 Instruction Type:Patient Education How to access health informa tion online - Detail Indication:Current nonsmoker (Renamed from Current non-smoker) Start:22-Aug-2018 Instruction Type:Patient Education Patient Instructions Indication:BMI 33.0-33.9,adult Start:22-Aug-2018 Instruction Type:Provider Instructions for Treatment How to access health informa tion online Indication:Current nonsmoker (Renamed from Current non-smoker) Start:21-May-2018 Instruction Type:Patient Education How to access health informa tion online - Detail Indication:Current nonsmoker (Renamed from Current non-smoker) Start:21-May-2018 Instruction Type:Patient Education Patient Instructions Indication:Rash of unknown cause Start:21-May-2018 Instruction Type:Provider Instructions for Treatment How to access health informa tion online Indication:Current nonsmoker (Renamed from Current non-smoker) Start:16-Feb-2018 Instruction Type:Patient Education How to access health informa tion online - Detail Indication:Current nonsmoker (Renamed from Current non-smoker) Start:16-Feb-2018 Instruction Type:Patient Education Patient Instructions Indication:CKD stage G2/A1, GFR 60-89 and albumin creatinine ratio <30 mg/g Start:16-Feb-2018 Instruction Type:Provider Instructions for Treatment How to access health informa tion online Indication:BMI 32.0-32.9,adult Start:01-Jan-2018 Instruction Type:Patient Education How to access health informa tion online - Detail Indication:BMI 32.0-32.9,adult Start:01-Jan-2018 Instruction Type:Patient Education Patient Instructions Indication:Cough Start:01-Jan-2018 Instruction Type:Provider Instructions for Treatment How to access health informa tion online Indication:Encounter for routine history and physical exam for male Start:30-Oct-2015 Instruction Type:Patient Education How to access health informa tion online - Detail Indication:Encounter for routine history and physical exam for male Start:30-Oct-2015 Instruction Type:Patient Education Patient Instructions Indication:Encounter for routine history and physical exam for male Start:30-Oct-2015 Instruction Type:Provider Instructions for Treatment [facility] Work Phone: progress note No data available for this section [facility] Reason for referral (narrative)No reason for referral information available[facility] Work Phone: Summary Purpose Family History No Family History Records FoundUnknown Family Member Name Dates Details Father Comments:prostate cancer Status:Active Mother Comments:HTN, hx lung/ovaria n cancer Status:Active Sister 1 Comments:healthy Status:Active Unknown Family Member Name Dates Details Father Comments:prostate cancer Status:Active Mother Comments:HTN, hx lung/ovaria n cancer Status:Active Sister 1 Comments:healthy Status:Active Unknown Family Member Name Dates Details Father Comments:prostate cancer Status:Active Mother Comments:HTN, hx lung/ovaria n cancer Status:Active Sister 1 Comments:healthy Status:Active Unknown Family Member Name Dates Details Father Comments:prostate cancer Status:Active Mother Comments:HTN, hx lung/ovaria n cancer Status:Active Sister 1 Comments:healthy Status:Active Unknown Family Member Name Dates Details Father Comments:prostate cancer Status:Active Mother Comments:HTN, hx lung/ovaria n cancer Status:Active Sister 1 Comments:healthy Status:Active Unknown Family Member Name Dates Details Father Comments:prostate cancer Status:Active Mother Comments:HTN, hx lung/ovaria n cancer Status:Active Sister 1 Comments:healthy Status:Active Unknown Family Member Name Dates Details Father Comments:prostate cancer Status:Active Mother Comments:HTN, hx lung/ovaria n cancer Status:Active Sister 1 Comments:healthy Status:Active Unknown Family Member Name Dates Details Father Comments:prostate cancer Status:Active Mother Comments:HTN, hx lung/ovaria n cancer Status:Active Sister 1 Comments:healthy Status:Active Unknown Family Member Name Dates Details Father Comments:prostate cancer Status:Active Mother Comments:HTN, hx lung/ovaria n cancer Status:Active Sister 1 Comments:healthy Status:Active Unknown Family Member Name Dates Details Father Comments:prostate cancer Status:Active Mother Comments:HTN, hx lung/ovaria n cancer Status:Active Sister 1 Comments:healthy Status:Active Unknown Family Member Name Dates Details Father Comments:prostate cancer Status:Active Mother Comments:HTN, hx lung/ovaria n cancer Status:Active Sister 1 Comments:healthy Status:Active Unknown Family Member Name Dates Details Father Comments:prostate cancer Status:Active Mother Comments:HTN, hx lung/ovaria n cancer Status:Active Sister 1 Comments:healthy Status:Active Unknown Family Member Name Dates Details Father Comments:prostate cancer Status:Active Mother Comments:HTN, hx lung/ovaria n cancer Status:Active Sister 1 Comments:healthy Status:Active Unknown Family Member Name Dates Details Father Comments:prostate cancer Status:Active Mother Comments:HTN, hx lung/ovaria n cancer Status:Active Sister 1 Comments:healthy Status:Active Unknown Family Member Name Dates Details Father Comments:prostate cancer Status:Active Mother Comments:HTN, hx lung/ovaria n cancer Status:Active Sister 1 Comments:healthy Status:Active Unknown Family Member Name Dates Details Father Comments:prostate cancer Status:Active Mother Comments:HTN, hx lung/ovaria n cancer Status:Active Sister 1 Comments:healthy Status:Active Unknown Family Member Name Dates Details Father Comments:prostate cancer Status:Active Mother Comments:HTN, hx lung/ovaria n cancer Status:Active Sister 1 Comments:healthy Status:Active Unknown Family Member Name Dates Details Father Comments:prostate cancer Status:Active Mother Comments:HTN, hx lung/ovaria n cancer Status:Active Sister 1 Comments:healthy Status:Active Unknown Family Member Name Dates Details Father Comments:prostate cancer Status:Active Mother Comments:HTN, hx lung/ovaria n cancer Status:Active Sister 1 Comments:healthy Status:Active Unknown Family Member Name Dates Details Father Comments:prostate cancer Status:Active Mother Comments:HTN, hx lung/ovaria n cancer Status:Active Sister 1 Comments:healthy Status:Active Unknown Family Member Name Dates Details Father Comments:prostate cancer Status:Active Mother Comments:HTN, hx lung/ovaria n cancer Status:Active Sister 1 Comments:healthy Status:Active Unknown Family Member Name Dates Details Father Comments:prostate cancer Status:Active Mother Comments:HTN, hx lung/ovaria n cancer Status:Active Sister 1 Comments:healthy Status:Active Unknown Family Member Name Dates Details Father Comments:prostate cancer Status:Active Mother Comments:HTN, hx lung/ovaria n cancer Status:Active Sister 1 Comments:healthy Status:Active Unknown Family Member Name Dates Details Father Comments:prostate cancer Status:Active Mother Comments:HTN, hx lung/ovaria n cancer Status:Active Sister 1 Comments:healthy Status:Active Unknown Family Member Name Dates Details Father Comments:prostate cancer Status:Active Mother Comments:HTN, hx lung/ovaria n cancer Status:Active Sister 1 Comments:healthy Status:Active Unknown Family Member Name Dates Details Father Comments:prostate cancer Status:Active Mother Comments:HTN, hx lung/ovaria n cancer Status:Active Sister 1 Comments:healthy Status:Active Unknown Family Member Name Dates Details Father Comments:prostate cancer Status:Active Mother Comments:HTN, hx lung/ovaria n cancer Status:Active Sister 1 Comments:healthy Status:Active Unknown Family Member Name Dates Details Father Comments:prostate cancer Status:Active Mother Comments:HTN, hx lung/ovaria n cancer Status:Active Sister 1 Comments:healthy Status:Active Unknown Family Member Name Dates Details Father Comments:prostate cancer Status:Active Mother Comments:HTN, hx lung/ovaria n cancer Status:Active Sister 1 Comments:healthy Status:Active Unknown Family Member Name Dates Details Father Comments:prostate cancer Status:Active Mother Comments:HTN, hx lung/ovaria n cancer Status:Active Sister 1 Comments:healthy Status:Active Unknown Family Member Name Dates Details Father Comments:prostate cancer Status:Active Mother Comments:HTN, hx lung/ovaria n cancer Status:Active Sister 1 Comments:healthy Status:Active Unknown Family Member Name Dates Details Father Comments:prostate cancer Status:Active Mother Comments:HTN, hx lung/ovaria n cancer Status:Active Sister 1 Comments:healthy Status:Active Unknown Family Member Name Dates Details Father Comments:prostate cancer Status:Active Mother Comments:HTN, hx lung/ovaria n cancer Status:Active Sister 1 Comments:healthy Status:Active Unknown Family Member Name Dates Details Father Comments:prostate cancer Status:Active Mother Comments:HTN, hx lung/ovaria n cancer Status:Active Sister 1 Comments:healthy Status:Active Relationship Condition Age at Onset Recorded Date/T kirill mother Hypertension Unknown Malignant neoplasm Unknown father Malignant neoplasm Unknown Unknown Family Member Name Dates Details Father Comments:prostate cancer Status:Active Mother Comments:HTN, hx lung/ovaria n cancer Status:Active Sister 1 Comments:healthy Status:Active Unknown Family Member Name Dates Details Father Comments:prostate cancer Status:Active Mother Comments:HTN, hx lung/ovaria n cancer Status:Active Sister 1 Comments:healthy Status:Active Unknown Family Member Name Dates Details Father Comments:prostate cancer Status:Active Mother Comments:HTN, hx lung/ovaria n cancer Status:Active Sister 1 Comments:healthy Status:Active Unknown Family Member Name Dates Details Father Comments:prostate cancer Status:Active Mother Comments:HTN, hx lung/ovaria n cancer Status:Active Sister 1 Comments:healthy Status:Active Advance Directives No Advanced Directives Records Found Name Dates Details Immunization Registry [place] - Effective on 04/15/2022. Expiration date unspecified Effective:15-Apr-2022 Name Dates Details Immunization Registry [place] - Effective on 04/15/2022. Expiration date unspecified Effective:15-Apr-2022 Name Dates Details Immunization Registry [place] - Effective on 04/15/2022. Expiration date unspecified Effective:15-Apr-2022 Advance Directive Response Recorded Date/ Time Advance Directives Yes March 02, 2018 10:23am Living Will No June 11 8:13pm Power of Vice President Of Business Development No June 11, 2022 8:13pm Name Dates Details Immunization Registry [place] - Effective on 04/15/2022. Expiration date unspecified Effective:15-Apr-2022 Name Dates Details Immunization Registry [place] - Effective on 04/15/2022. Expiration date unspecified Effective:15-Apr-2022 Name Dates Details Immunization Registry [place] - Effective on 04/15/2022. Expiration date unspecified Effective:15-Apr-2022 Name Dates Details Immunization Registry [place] - Effective on 04/15/2022. Expiration date unspecified Effective:15-Apr-2022 Advance Directive Response Recorded Date/ Time Advance Directives Yes March 02, 2018 11:23am Instructions Name Dates Details Current nonsmoker (Renamed f rom Current non-smoker) : How to access health information online Indication:Current nonsmoker (Renamed from Current non-smoker) Current nonsmoker (Renamed f rom Current non-smoker) : How to access health information online - Detail Indication:Current nonsmoker (Renamed from Current non-smoker) Rash of unknown cause : Giselle ent Instructions Indication:Rash of unknown cause CKD stage G2/A1, GFR 60-89 a nd albumin creatinine ratio <30 mg/g : Patient Instructions Indication:CKD stage G2/A1, GFR 60-89 and albumin creatinine ratio <30 mg/g BMI 32.0-32.9,adult : How to access health information online Indication:BMI 32.0-32.9,adult BMI 32.0-32.9,adult : How to access health information online - Detail Indication:BMI 32.0-32.9,adult Cough : Patient Instructions Indication:Cough Encounter for routine histor y and physical exam for male : How to access health information online Indication:Encounter for routine history and physical exam for male Encounter for routine histor y and physical exam for male : How to access health information online - Detail Indication:Encounter for routine history and physical exam for male Encounter for routine histor y and physical exam for male : Patient Instructions Indication:Encounter for routine history and physical exam for male Name Dates Details How to access health informa tion online Indication:Current nonsmoker (Renamed from Current non-smoker) Start:22-Aug-2018 Instruction Type:Patient Education How to access health informa tion online - Detail Indication:Current nonsmoker (Renamed from Current non-smoker) Start:22-Aug-2018 Instruction Type:Patient Education Patient Instructions Indication:BMI 33.0-33.9,adult Start:22-Aug-2018 Instruction Type:Provider Instructions for Treatment How to access health informa tion online Indication:Current nonsmoker (Renamed from Current non-smoker) Start:21-May-2018 Instruction Type:Patient Education How to access health informa tion online - Detail Indication:Current nonsmoker (Renamed from Current non-smoker) Start:21-May-2018 Instruction Type:Patient Education Patient Instructions Indication:Rash of unknown cause Start:21-May-2018 Instruction Type:Provider Instructions for Treatment How to access health informa tion online Indication:Current nonsmoker (Renamed from Current non-smoker) Start:16-Feb-2018 Instruction Type:Patient Education How to access health informa tion online - Detail Indication:Current nonsmoker (Renamed from Current non-smoker) Start:16-Feb-2018 Instruction Type:Patient Education Patient Instructions Indication:CKD stage G2/A1, GFR 60-89 and albumin creatinine ratio <30 mg/g Start:16-Feb-2018 Instruction Type:Provider Instructions for Treatment How to access health informa tion online Indication:BMI 32.0-32.9,adult Start:01-Jan-2018 Instruction Type:Patient Education How to access health informa tion online - Detail Indication:BMI 32.0-32.9,adult Start:01-Jan-2018 Instruction Type:Patient Education Patient Instructions Indication:Cough Start:01-Jan-2018 Instruction Type:Provider Instructions for Treatment How to access health informa tion online Indication:Encounter for routine history and physical exam for male Start:30-Oct-2015 Instruction Type:Patient Education How to access health informa tion online - Detail Indication:Encounter for routine history and physical exam for male Start:30-Oct-2015 Instruction Type:Patient Education Patient Instructions Indication:Encounter for routine history and physical exam for male Start:30-Oct-2015 Instruction Type:Provider Instructions for Treatment Name Dates Details How to access health informa tion online Indication:Current nonsmoker (Renamed from Current non-smoker) Start:08-Feb-2019 Instruction Type:Patient Education How to access health informa tion online - Detail Indication:Current nonsmoker (Renamed from Current non-smoker) Start:08-Feb-2019 Instruction Type:Patient Education Patient Instructions Indication:Current nonsmoker (Renamed from Current non-smoker) Start:08-Feb-2019 Instruction Type:Provider Instructions for Treatment How to access health informa tion online Indication:Current nonsmoker (Renamed from Current non-smoker) Start:22-Aug-2018 Instruction Type:Patient Education How to access health informa tion online - Detail Indication:Current nonsmoker (Renamed from Current non-smoker) Start:22-Aug-2018 Instruction Type:Patient Education Patient Instructions Indication:BMI 33.0-33.9,adult Start:22-Aug-2018 Instruction Type:Provider Instructions for Treatment How to access health informa tion online Indication:Current nonsmoker (Renamed from Current non-smoker) Start:21-May-2018 Instruction Type:Patient Education How to access health informa tion online - Detail Indication:Current nonsmoker (Renamed from Current non-smoker) Start:21-May-2018 Instruction Type:Patient Education Patient Instructions Indication:Rash of unknown cause Start:21-May-2018 Instruction Type:Provider Instructions for Treatment How to access health informa tion online Indication:Current nonsmoker (Renamed from Current non-smoker) Start:16-Feb-2018 Instruction Type:Patient Education How to access health informa tion online - Detail Indication:Current nonsmoker (Renamed from Current non-smoker) Start:16-Feb-2018 Instruction Type:Patient Education Patient Instructions Indication:CKD stage G2/A1, GFR 60-89 and albumin creatinine ratio <30 mg/g Start:16-Feb-2018 Instruction Type:Provider Instructions for Treatment How to access health informa tion online Indication:BMI 32.0-32.9,adult Start:01-Jan-2018 Instruction Type:Patient Education How to access health informa tion online - Detail Indication:BMI 32.0-32.9,adult Start:01-Jan-2018 Instruction Type:Patient Education Patient Instructions Indication:Cough Start:01-Jan-2018 Instruction Type:Provider Instructions for Treatment How to access health informa tion online Indication:Encounter for routine history and physical exam for male Start:30-Oct-2015 Instruction Type:Patient Education How to access health informa tion online - Detail Indication:Encounter for routine history and physical exam for male Start:30-Oct-2015 Instruction Type:Patient Education Patient Instructions Indication:Encounter for routine history and physical exam for male Start:30-Oct-2015 Instruction Type:Provider Instructions for Treatment Name Dates Details How to access health informa tion online Indication:Current nonsmoker (Renamed from Current non-smoker) Start:08-Feb-2019 Instruction Type:Patient Education How to access health informa tion online - Detail Indication:Current nonsmoker (Renamed from Current non-smoker) Start:08-Feb-2019 Instruction Type:Patient Education Patient Instructions Indication:Current nonsmoker (Renamed from Current non-smoker) Start:08-Feb-2019 Instruction Type:Provider Instructions for Treatment How to access health informa tion online Indication:Current nonsmoker (Renamed from Current non-smoker) Start:22-Aug-2018 Instruction Type:Patient Education How to access health informa tion online - Detail Indication:Current nonsmoker (Renamed from Current non-smoker) Start:22-Aug-2018 Instruction Type:Patient Education Patient Instructions Indication:BMI 33.0-33.9,adult Start:22-Aug-2018 Instruction Type:Provider Instructions for Treatment How to access health informa tion online Indication:Current nonsmoker (Renamed from Current non-smoker) Start:21-May-2018 Instruction Type:Patient Education How to access health informa tion online - Detail Indication:Current nonsmoker (Renamed from Current non-smoker) Start:21-May-2018 Instruction Type:Patient Education Patient Instructions Indication:Rash of unknown cause Start:21-May-2018 Instruction Type:Provider Instructions for Treatment How to access health informa tion online Indication:Current nonsmoker (Renamed from Current non-smoker) Start:16-Feb-2018 Instruction Type:Patient Education How to access health informa tion online - Detail Indication:Current nonsmoker (Renamed from Current non-smoker) Start:16-Feb-2018 Instruction Type:Patient Education Patient Instructions Indication:CKD stage G2/A1, GFR 60-89 and albumin creatinine ratio <30 mg/g Start:16-Feb-2018 Instruction Type:Provider Instructions for Treatment How to access health informa tion online Indication:BMI 32.0-32.9,adult Start:01-Jan-2018 Instruction Type:Patient Education How to access health informa tion online - Detail Indication:BMI 32.0-32.9,adult Start:01-Jan-2018 Instruction Type:Patient Education Patient Instructions Indication:Cough Start:01-Jan-2018 Instruction Type:Provider Instructions for Treatment How to access health informa tion online Indication:Encounter for routine history and physical exam for male Start:30-Oct-2015 Instruction Type:Patient Education How to access health informa tion online - Detail Indication:Encounter for routine history and physical exam for male Start:30-Oct-2015 Instruction Type:Patient Education Patient Instructions Indication:Encounter for routine history and physical exam for male Start:30-Oct-2015 Instruction Type:Provider Instructions for Treatment Name Dates Details How to access health informa tion online Indication:Current nonsmoker (Renamed from Current non-smoker) Start:11-Feb-2019 Instruction Type:Patient Education How to access health informa tion online - Detail Indication:Current nonsmoker (Renamed from Current non-smoker) Start:11-Feb-2019 Instruction Type:Patient Education Patient Instructions Indication:BMI 30.0-30.9,adult Start:11-Feb-2019 Instruction Type:Provider Instructions for Treatment How to access health informa tion online Indication:Current nonsmoker (Renamed from Current non-smoker) Start:08-Feb-2019 Instruction Type:Patient Education How to access health informa tion online - Detail Indication:Current nonsmoker (Renamed from Current non-smoker) Start:08-Feb-2019 Instruction Type:Patient Education Patient Instructions Indication:Current nonsmoker (Renamed from Current non-smoker) Start:08-Feb-2019 Instruction Type:Provider Instructions for Treatment How to access health informa tion online Indication:Current nonsmoker (Renamed from Current non-smoker) Start:22-Aug-2018 Instruction Type:Patient Education How to access health informa tion online - Detail Indication:Current nonsmoker (Renamed from Current non-smoker) Start:22-Aug-2018 Instruction Type:Patient Education Patient Instructions Indication:BMI 33.0-33.9,adult Start:22-Aug-2018 Instruction Type:Provider Instructions for Treatment How to access health informa tion online Indication:Current nonsmoker (Renamed from Current non-smoker) Start:21-May-2018 Instruction Type:Patient Education How to access health informa tion online - Detail Indication:Current nonsmoker (Renamed from Current non-smoker) Start:21-May-2018 Instruction Type:Patient Education Patient Instructions Indication:Rash of unknown cause Start:21-May-2018 Instruction Type:Provider Instructions for Treatment How to access health informa tion online Indication:Current nonsmoker (Renamed from Current non-smoker) Start:16-Feb-2018 Instruction Type:Patient Education How to access health informa tion online - Detail Indication:Current nonsmoker (Renamed from Current non-smoker) Start:16-Feb-2018 Instruction Type:Patient Education Patient Instructions Indication:CKD stage G2/A1, GFR 60-89 and albumin creatinine ratio <30 mg/g Start:16-Feb-2018 Instruction Type:Provider Instructions for Treatment How to access health informa tion online Indication:BMI 32.0-32.9,adult Start:01-Jan-2018 Instruction Type:Patient Education How to access health informa tion online - Detail Indication:BMI 32.0-32.9,adult Start:01-Jan-2018 Instruction Type:Patient Education Patient Instructions Indication:Cough Start:01-Jan-2018 Instruction Type:Provider Instructions for Treatment How to access health informa tion online Indication:Encounter for routine history and physical exam for male Start:30-Oct-2015 Instruction Type:Patient Education How to access health informa tion online - Detail Indication:Encounter for routine history and physical exam for male Start:30-Oct-2015 Instruction Type:Patient Education Patient Instructions Indication:Encounter for routine history and physical exam for male Start:30-Oct-2015 Instruction Type:Provider Instructions for Treatment Name Dates Details How to access health informa tion online Indication:Current nonsmoker (Renamed from Current non-smoker) Start:20-Feb-2019 Instruction Type:Patient Education How to access health informa tion online - Detail Indication:Current nonsmoker (Renamed from Current non-smoker) Start:20-Feb-2019 Instruction Type:Patient Education Patient Instructions Indication:BMI 30.0-30.9,adult Start:20-Feb-2019 Instruction Type:Provider Instructions for Treatment How to access health informa tion online Indication:Current nonsmoker (Renamed from Current non-smoker) Start:11-Feb-2019 Instruction Type:Patient Education How to access health informa tion online - Detail Indication:Current nonsmoker (Renamed from Current non-smoker) Start:11-Feb-2019 Instruction Type:Patient Education Patient Instructions Indication:BMI 30.0-30.9,adult Start:11-Feb-2019 Instruction Type:Provider Instructions for Treatment How to access health informa tion online Indication:Current nonsmoker (Renamed from Current non-smoker) Start:08-Feb-2019 Instruction Type:Patient Education How to access health informa tion online - Detail Indication:Current nonsmoker (Renamed from Current non-smoker) Start:08-Feb-2019 Instruction Type:Patient Education Patient Instructions Indication:Current nonsmoker (Renamed from Current non-smoker) Start:08-Feb-2019 Instruction Type:Provider Instructions for Treatment How to access health informa tion online Indication:Current nonsmoker (Renamed from Current non-smoker) Start:22-Aug-2018 Instruction Type:Patient Education How to access health informa tion online - Detail Indication:Current nonsmoker (Renamed from Current non-smoker) Start:22-Aug-2018 Instruction Type:Patient Education Patient Instructions Indication:BMI 33.0-33.9,adult Start:22-Aug-2018 Instruction Type:Provider Instructions for Treatment How to access health informa tion online Indication:Current nonsmoker (Renamed from Current non-smoker) Start:21-May-2018 Instruction Type:Patient Education How to access health informa tion online - Detail Indication:Current nonsmoker (Renamed from Current non-smoker) Start:21-May-2018 Instruction Type:Patient Education Patient Instructions Indication:Rash of unknown cause Start:21-May-2018 Instruction Type:Provider Instructions for Treatment How to access health informa tion online Indication:Current nonsmoker (Renamed from Current non-smoker) Start:16-Feb-2018 Instruction Type:Patient Education How to access health informa tion online - Detail Indication:Current nonsmoker (Renamed from Current non-smoker) Start:16-Feb-2018 Instruction Type:Patient Education Patient Instructions Indication:CKD stage G2/A1, GFR 60-89 and albumin creatinine ratio <30 mg/g Start:16-Feb-2018 Instruction Type:Provider Instructions for Treatment How to access health informa tion online Indication:BMI 32.0-32.9,adult Start:01-Jan-2018 Instruction Type:Patient Education How to access health informa tion online - Detail Indication:BMI 32.0-32.9,adult Start:01-Jan-2018 Instruction Type:Patient Education Patient Instructions Indication:Cough Start:01-Jan-2018 Instruction Type:Provider Instructions for Treatment How to access health informa tion online Indication:Encounter for routine history and physical exam for male Start:30-Oct-2015 Instruction Type:Patient Education How to access health informa tion online - Detail Indication:Encounter for routine history and physical exam for male Start:30-Oct-2015 Instruction Type:Patient Education Patient Instructions Indication:Encounter for routine history and physical exam for male Start:30-Oct-2015 Instruction Type:Provider Instructions for Treatment Name Dates Details How to access health informa tion online Indication:Current nonsmoker (Renamed from Current non-smoker) Start:20-Feb-2019 Instruction Type:Patient Education How to access health informa tion online - Detail Indication:Current nonsmoker (Renamed from Current non-smoker) Start:20-Feb-2019 Instruction Type:Patient Education Patient Instructions Indication:BMI 30.0-30.9,adult Start:20-Feb-2019 Instruction Type:Provider Instructions for Treatment How to access health informa tion online Indication:Current nonsmoker (Renamed from Current non-smoker) Start:11-Feb-2019 Instruction Type:Patient Education How to access health informa tion online - Detail Indication:Current nonsmoker (Renamed from Current non-smoker) Start:11-Feb-2019 Instruction Type:Patient Education Patient Instructions Indication:BMI 30.0-30.9,adult Start:11-Feb-2019 Instruction Type:Provider Instructions for Treatment How to access health informa tion online Indication:Current nonsmoker (Renamed from Current non-smoker) Start:08-Feb-2019 Instruction Type:Patient Education How to access health informa tion online - Detail Indication:Current nonsmoker (Renamed from Current non-smoker) Start:08-Feb-2019 Instruction Type:Patient Education Patient Instructions Indication:Current nonsmoker (Renamed from Current non-smoker) Start:08-Feb-2019 Instruction Type:Provider Instructions for Treatment How to access health informa tion online Indication:Current nonsmoker (Renamed from Current non-smoker) Start:22-Aug-2018 Instruction Type:Patient Education How to access health informa tion online - Detail Indication:Current nonsmoker (Renamed from Current non-smoker) Start:22-Aug-2018 Instruction Type:Patient Education Patient Instructions Indication:BMI 33.0-33.9,adult Start:22-Aug-2018 Instruction Type:Provider Instructions for Treatment How to access health informa tion online Indication:Current nonsmoker (Renamed from Current non-smoker) Start:21-May-2018 Instruction Type:Patient Education How to access health informa tion online - Detail Indication:Current nonsmoker (Renamed from Current non-smoker) Start:21-May-2018 Instruction Type:Patient Education Patient Instructions Indication:Rash of unknown cause Start:21-May-2018 Instruction Type:Provider Instructions for Treatment How to access health informa tion online Indication:Current nonsmoker (Renamed from Current non-smoker) Start:16-Feb-2018 Instruction Type:Patient Education How to access health informa tion online - Detail Indication:Current nonsmoker (Renamed from Current non-smoker) Start:16-Feb-2018 Instruction Type:Patient Education Patient Instructions Indication:CKD stage G2/A1, GFR 60-89 and albumin creatinine ratio <30 mg/g Start:16-Feb-2018 Instruction Type:Provider Instructions for Treatment How to access health informa tion online Indication:BMI 32.0-32.9,adult Start:01-Jan-2018 Instruction Type:Patient Education How to access health informa tion online - Detail Indication:BMI 32.0-32.9,adult Start:01-Jan-2018 Instruction Type:Patient Education Patient Instructions Indication:Cough Start:01-Jan-2018 Instruction Type:Provider Instructions for Treatment How to access health informa tion online Indication:Encounter for routine history and physical exam for male Start:30-Oct-2015 Instruction Type:Patient Education How to access health informa tion online - Detail Indication:Encounter for routine history and physical exam for male Start:30-Oct-2015 Instruction Type:Patient Education Patient Instructions Indication:Encounter for routine history and physical exam for male Start:30-Oct-2015 Instruction Type:Provider Instructions for Treatment Name Dates Details How to access health informa tion online Indication:Current nonsmoker (Renamed from Current non-smoker) Start:20-Feb-2019 Instruction Type:Patient Education How to access health informa tion online - Detail Indication:Current nonsmoker (Renamed from Current non-smoker) Start:20-Feb-2019 Instruction Type:Patient Education Patient Instructions Indication:BMI 30.0-30.9,adult Start:20-Feb-2019 Instruction Type:Provider Instructions for Treatment How to access health informa tion online Indication:Current nonsmoker (Renamed from Current non-smoker) Start:11-Feb-2019 Instruction Type:Patient Education How to access health informa tion online - Detail Indication:Current nonsmoker (Renamed from Current non-smoker) Start:11-Feb-2019 Instruction Type:Patient Education Patient Instructions Indication:BMI 30.0-30.9,adult Start:11-Feb-2019 Instruction Type:Provider Instructions for Treatment How to access health informa tion online Indication:Current nonsmoker (Renamed from Current non-smoker) Start:08-Feb-2019 Instruction Type:Patient Education How to access health informa tion online - Detail Indication:Current nonsmoker (Renamed from Current non-smoker) Start:08-Feb-2019 Instruction Type:Patient Education Patient Instructions Indication:Current nonsmoker (Renamed from Current non-smoker) Start:08-Feb-2019 Instruction Type:Provider Instructions for Treatment How to access health informa tion online Indication:Current nonsmoker (Renamed from Current non-smoker) Start:22-Aug-2018 Instruction Type:Patient Education How to access health informa tion online - Detail Indication:Current nonsmoker (Renamed from Current non-smoker) Start:22-Aug-2018 Instruction Type:Patient Education Patient Instructions Indication:BMI 33.0-33.9,adult Start:22-Aug-2018 Instruction Type:Provider Instructions for Treatment How to access health informa tion online Indication:Current nonsmoker (Renamed from Current non-smoker) Start:21-May-2018 Instruction Type:Patient Education How to access health informa tion online - Detail Indication:Current nonsmoker (Renamed from Current non-smoker) Start:21-May-2018 Instruction Type:Patient Education Patient Instructions Indication:Rash of unknown cause Start:21-May-2018 Instruction Type:Provider Instructions for Treatment How to access health informa tion online Indication:Current nonsmoker (Renamed from Current non-smoker) Start:16-Feb-2018 Instruction Type:Patient Education How to access health informa tion online - Detail Indication:Current nonsmoker (Renamed from Current non-smoker) Start:16-Feb-2018 Instruction Type:Patient Education Patient Instructions Indication:CKD stage G2/A1, GFR 60-89 and albumin creatinine ratio <30 mg/g Start:16-Feb-2018 Instruction Type:Provider Instructions for Treatment How to access health informa tion online Indication:BMI 32.0-32.9,adult Start:01-Jan-2018 Instruction Type:Patient Education How to access health informa tion online - Detail Indication:BMI 32.0-32.9,adult Start:01-Jan-2018 Instruction Type:Patient Education Patient Instructions Indication:Cough Start:01-Jan-2018 Instruction Type:Provider Instructions for Treatment How to access health informa tion online Indication:Encounter for routine history and physical exam for male Start:30-Oct-2015 Instruction Type:Patient Education How to access health informa tion online - Detail Indication:Encounter for routine history and physical exam for male Start:30-Oct-2015 Instruction Type:Patient Education Patient Instructions Indication:Encounter for routine history and physical exam for male Start:30-Oct-2015 Instruction Type:Provider Instructions for Treatment Name Dates Details How to access health informa tion online Indication:Current nonsmoker (Renamed from Current non-smoker) Start:24-May-2019 Instruction Type:Patient Education How to access health informa tion online - Detail Indication:Current nonsmoker (Renamed from Current non-smoker) Start:24-May-2019 Instruction Type:Patient Education Patient Instructions Indication:Screening for prostate cancer Start:24-May-2019 Instruction Type:Provider Instructions for Treatment How to access health informa tion online Indication:Current nonsmoker (Renamed from Current non-smoker) Start:20-Feb-2019 Instruction Type:Patient Education How to access health informa tion online - Detail Indication:Current nonsmoker (Renamed from Current non-smoker) Start:20-Feb-2019 Instruction Type:Patient Education Patient Instructions Indication:BMI 30.0-30.9,adult Start:20-Feb-2019 Instruction Type:Provider Instructions for Treatment How to access health informa tion online Indication:Current nonsmoker (Renamed from Current non-smoker) Start:11-Feb-2019 Instruction Type:Patient Education How to access health informa tion online - Detail Indication:Current nonsmoker (Renamed from Current non-smoker) Start:11-Feb-2019 Instruction Type:Patient Education Patient Instructions Indication:BMI 30.0-30.9,adult Start:11-Feb-2019 Instruction Type:Provider Instructions for Treatment How to access health informa tion online Indication:Current nonsmoker (Renamed from Current non-smoker) Start:08-Feb-2019 Instruction Type:Patient Education How to access health informa tion online - Detail Indication:Current nonsmoker (Renamed from Current non-smoker) Start:08-Feb-2019 Instruction Type:Patient Education Patient Instructions Indication:Current nonsmoker (Renamed from Current non-smoker) Start:08-Feb-2019 Instruction Type:Provider Instructions for Treatment How to access health informa tion online Indication:Current nonsmoker (Renamed from Current non-smoker) Start:22-Aug-2018 Instruction Type:Patient Education How to access health informa tion online - Detail Indication:Current nonsmoker (Renamed from Current non-smoker) Start:22-Aug-2018 Instruction Type:Patient Education Patient Instructions Indication:BMI 33.0-33.9,adult Start:22-Aug-2018 Instruction Type:Provider Instructions for Treatment How to access health informa tion online Indication:Current nonsmoker (Renamed from Current non-smoker) Start:21-May-2018 Instruction Type:Patient Education How to access health informa tion online - Detail Indication:Current nonsmoker (Renamed from Current non-smoker) Start:21-May-2018 Instruction Type:Patient Education Patient Instructions Indication:Rash of unknown cause Start:21-May-2018 Instruction Type:Provider Instructions for Treatment How to access health informa tion online Indication:Current nonsmoker (Renamed from Current non-smoker) Start:16-Feb-2018 Instruction Type:Patient Education How to access health informa tion online - Detail Indication:Current nonsmoker (Renamed from Current non-smoker) Start:16-Feb-2018 Instruction Type:Patient Education Patient Instructions Indication:CKD stage G2/A1, GFR 60-89 and albumin creatinine ratio <30 mg/g Start:16-Feb-2018 Instruction Type:Provider Instructions for Treatment How to access health informa tion online Indication:BMI 32.0-32.9,adult Start:01-Jan-2018 Instruction Type:Patient Education How to access health informa tion online - Detail Indication:BMI 32.0-32.9,adult Start:01-Jan-2018 Instruction Type:Patient Education Patient Instructions Indication:Cough Start:01-Jan-2018 Instruction Type:Provider Instructions for Treatment How to access health informa tion online Indication:Encounter for routine history and physical exam for male Start:30-Oct-2015 Instruction Type:Patient Education How to access health informa tion online - Detail Indication:Encounter for routine history and physical exam for male Start:30-Oct-2015 Instruction Type:Patient Education Patient Instructions Indication:Encounter for routine history and physical exam for male Start:30-Oct-2015 Instruction Type:Provider Instructions for Treatment Name Dates Details How to access health informa tion online Indication:Current nonsmoker (Renamed from Current non-smoker) Start:24-May-2019 Instruction Type:Patient Education How to access health informa tion online - Detail Indication:Current nonsmoker (Renamed from Current non-smoker) Start:24-May-2019 Instruction Type:Patient Education Patient Instructions Indication:Screening for prostate cancer Start:24-May-2019 Instruction Type:Provider Instructions for Treatment How to access health informa tion online Indication:Current nonsmoker (Renamed from Current non-smoker) Start:20-Feb-2019 Instruction Type:Patient Education How to access health informa tion online - Detail Indication:Current nonsmoker (Renamed from Current non-smoker) Start:20-Feb-2019 Instruction Type:Patient Education Patient Instructions Indication:BMI 30.0-30.9,adult Start:20-Feb-2019 Instruction Type:Provider Instructions for Treatment How to access health informa tion online Indication:Current nonsmoker (Renamed from Current non-smoker) Start:11-Feb-2019 Instruction Type:Patient Education How to access health informa tion online - Detail Indication:Current nonsmoker (Renamed from Current non-smoker) Start:11-Feb-2019 Instruction Type:Patient Education Patient Instructions Indication:BMI 30.0-30.9,adult Start:11-Feb-2019 Instruction Type:Provider Instructions for Treatment How to access health informa tion online Indication:Current nonsmoker (Renamed from Current non-smoker) Start:08-Feb-2019 Instruction Type:Patient Education How to access health informa tion online - Detail Indication:Current nonsmoker (Renamed from Current non-smoker) Start:08-Feb-2019 Instruction Type:Patient Education Patient Instructions Indication:Current nonsmoker (Renamed from Current non-smoker) Start:08-Feb-2019 Instruction Type:Provider Instructions for Treatment How to access health informa tion online Indication:Current nonsmoker (Renamed from Current non-smoker) Start:22-Aug-2018 Instruction Type:Patient Education How to access health informa tion online - Detail Indication:Current nonsmoker (Renamed from Current non-smoker) Start:22-Aug-2018 Instruction Type:Patient Education Patient Instructions Indication:BMI 33.0-33.9,adult Start:22-Aug-2018 Instruction Type:Provider Instructions for Treatment How to access health informa tion online Indication:Current nonsmoker (Renamed from Current non-smoker) Start:21-May-2018 Instruction Type:Patient Education How to access health informa tion online - Detail Indication:Current nonsmoker (Renamed from Current non-smoker) Start:21-May-2018 Instruction Type:Patient Education Patient Instructions Indication:Rash of unknown cause Start:21-May-2018 Instruction Type:Provider Instructions for Treatment How to access health informa tion online Indication:Current nonsmoker (Renamed from Current non-smoker) Start:16-Feb-2018 Instruction Type:Patient Education How to access health informa tion online - Detail Indication:Current nonsmoker (Renamed from Current non-smoker) Start:16-Feb-2018 Instruction Type:Patient Education Patient Instructions Indication:CKD stage G2/A1, GFR 60-89 and albumin creatinine ratio <30 mg/g Start:16-Feb-2018 Instruction Type:Provider Instructions for Treatment How to access health informa tion online Indication:BMI 32.0-32.9,adult Start:01-Jan-2018 Instruction Type:Patient Education How to access health informa tion online - Detail Indication:BMI 32.0-32.9,adult Start:01-Jan-2018 Instruction Type:Patient Education Patient Instructions Indication:Cough Start:01-Jan-2018 Instruction Type:Provider Instructions for Treatment How to access health informa tion online Indication:Encounter for routine history and physical exam for male Start:30-Oct-2015 Instruction Type:Patient Education How to access health informa tion online - Detail Indication:Encounter for routine history and physical exam for male Start:30-Oct-2015 Instruction Type:Patient Education Patient Instructions Indication:Encounter for routine history and physical exam for male Start:30-Oct-2015 Instruction Type:Provider Instructions for Treatment Name Dates Details How to access health informa tion online Indication:Current nonsmoker (Renamed from Current non-smoker) Start:08-Jun-2020 Instruction Type:Patient Education How to access health informa tion online - Detail Indication:Current nonsmoker (Renamed from Current non-smoker) Start:08-Jun-2020 Instruction Type:Patient Education Patient Instructions Indication:Current nonsmoker (Renamed from Current non-smoker) Start:08-Jun-2020 Instruction Type:Provider Instructions for Treatment How to access health informa tion online Indication:Current nonsmoker (Renamed from Current non-smoker) Start:31-Jan-2020 Instruction Type:Patient Education How to access health informa tion online - Detail Indication:Current nonsmoker (Renamed from Current non-smoker) Start:31-Jan-2020 Instruction Type:Patient Education Patient Instructions Indication:Afib Start:31-Jan-2020 Instruction Type:Provider Instructions for Treatment How to access health informa tion online Indication:Current nonsmoker (Renamed from Current non-smoker) Start:30-Sep-2019 Instruction Type:Patient Education How to access health informa tion online - Detail Indication:Current nonsmoker (Renamed from Current non-smoker) Start:30-Sep-2019 Instruction Type:Patient Education Patient Instructions Indication:Current nonsmoker (Renamed from Current non-smoker) Start:30-Sep-2019 Instruction Type:Provider Instructions for Treatment How to access health informa tion online Indication:Current nonsmoker (Renamed from Current non-smoker) Start:24-May-2019 Instruction Type:Patient Education How to access health informa tion online - Detail Indication:Current nonsmoker (Renamed from Current non-smoker) Start:24-May-2019 Instruction Type:Patient Education Patient Instructions Indication:Screening for prostate cancer Start:24-May-2019 Instruction Type:Provider Instructions for Treatment How to access health informa tion online Indication:Current nonsmoker (Renamed from Current non-smoker) Start:20-Feb-2019 Instruction Type:Patient Education How to access health informa tion online - Detail Indication:Current nonsmoker (Renamed from Current non-smoker) Start:20-Feb-2019 Instruction Type:Patient Education Patient Instructions Indication:BMI 30.0-30.9,adult Start:20-Feb-2019 Instruction Type:Provider Instructions for Treatment How to access health informa tion online Indication:Current nonsmoker (Renamed from Current non-smoker) Start:11-Feb-2019 Instruction Type:Patient Education How to access health informa tion online - Detail Indication:Current nonsmoker (Renamed from Current non-smoker) Start:11-Feb-2019 Instruction Type:Patient Education Patient Instructions Indication:BMI 30.0-30.9,adult Start:11-Feb-2019 Instruction Type:Provider Instructions for Treatment How to access health informa tion online Indication:Current nonsmoker (Renamed from Current non-smoker) Start:08-Feb-2019 Instruction Type:Patient Education How to access health informa tion online - Detail Indication:Current nonsmoker (Renamed from Current non-smoker) Start:08-Feb-2019 Instruction Type:Patient Education Patient Instructions Indication:Current nonsmoker (Renamed from Current non-smoker) Start:08-Feb-2019 Instruction Type:Provider Instructions for Treatment How to access health informa tion online Indication:Current nonsmoker (Renamed from Current non-smoker) Start:22-Aug-2018 Instruction Type:Patient Education How to access health informa tion online - Detail Indication:Current nonsmoker (Renamed from Current non-smoker) Start:22-Aug-2018 Instruction Type:Patient Education Patient Instructions Indication:BMI 33.0-33.9,adult Start:22-Aug-2018 Instruction Type:Provider Instructions for Treatment How to access health informa tion online Indication:Current nonsmoker (Renamed from Current non-smoker) Start:21-May-2018 Instruction Type:Patient Education How to access health informa tion online - Detail Indication:Current nonsmoker (Renamed from Current non-smoker) Start:21-May-2018 Instruction Type:Patient Education Patient Instructions Indication:Rash of unknown cause Start:21-May-2018 Instruction Type:Provider Instructions for Treatment How to access health informa tion online Indication:Current nonsmoker (Renamed from Current non-smoker) Start:16-Feb-2018 Instruction Type:Patient Education How to access health informa tion online - Detail Indication:Current nonsmoker (Renamed from Current non-smoker) Start:16-Feb-2018 Instruction Type:Patient Education Patient Instructions Indication:CKD stage G2/A1, GFR 60-89 and albumin creatinine ratio <30 mg/g Start:16-Feb-2018 Instruction Type:Provider Instructions for Treatment How to access health informa tion online Indication:BMI 32.0-32.9,adult Start:01-Jan-2018 Instruction Type:Patient Education How to access health informa tion online - Detail Indication:BMI 32.0-32.9,adult Start:01-Jan-2018 Instruction Type:Patient Education Patient Instructions Indication:Cough Start:01-Jan-2018 Instruction Type:Provider Instructions for Treatment How to access health informa tion online Indication:Encounter for routine history and physical exam for male Start:30-Oct-2015 Instruction Type:Patient Education How to access health informa tion online - Detail Indication:Encounter for routine history and physical exam for male Start:30-Oct-2015 Instruction Type:Patient Education Patient Instructions Indication:Encounter for routine history and physical exam for male Start:30-Oct-2015 Instruction Type:Provider Instructions for Treatment Name Dates Details How to access health informa tion online Indication:Current nonsmoker (Renamed from Current non-smoker) Start:08-Jun-2020 Instruction Type:Patient Education How to access health informa tion online - Detail Indication:Current nonsmoker (Renamed from Current non-smoker) Start:08-Jun-2020 Instruction Type:Patient Education Patient Instructions Indication:Need for prophylactic vaccination and inoculation against influenza (Renamed from Need for immunization against influenza) Start:08-Jun-2020 Instruction Type:Provider Instructions for Treatment How to access health informa tion online Indication:Current nonsmoker (Renamed from Current non-smoker) Start:31-Jan-2020 Instruction Type:Patient Education How to access health informa tion online - Detail Indication:Current nonsmoker (Renamed from Current non-smoker) Start:31-Jan-2020 Instruction Type:Patient Education Patient Instructions Indication:Afib Start:31-Jan-2020 Instruction Type:Provider Instructions for Treatment How to access health informa tion online Indication:Current nonsmoker (Renamed from Current non-smoker) Start:30-Sep-2019 Instruction Type:Patient Education How to access health informa tion online - Detail Indication:Current nonsmoker (Renamed from Current non-smoker) Start:30-Sep-2019 Instruction Type:Patient Education Patient Instructions Indication:Current nonsmoker (Renamed from Current non-smoker) Start:30-Sep-2019 Instruction Type:Provider Instructions for Treatment How to access health informa tion online Indication:Current nonsmoker (Renamed from Current non-smoker) Start:24-May-2019 Instruction Type:Patient Education How to access health informa tion online - Detail Indication:Current nonsmoker (Renamed from Current non-smoker) Start:24-May-2019 Instruction Type:Patient Education Patient Instructions Indication:Screening for prostate cancer Start:24-May-2019 Instruction Type:Provider Instructions for Treatment How to access health informa tion online Indication:Current nonsmoker (Renamed from Current non-smoker) Start:20-Feb-2019 Instruction Type:Patient Education How to access health informa tion online - Detail Indication:Current nonsmoker (Renamed from Current non-smoker) Start:20-Feb-2019 Instruction Type:Patient Education Patient Instructions Indication:BMI 30.0-30.9,adult Start:20-Feb-2019 Instruction Type:Provider Instructions for Treatment How to access health informa tion online Indication:Current nonsmoker (Renamed from Current non-smoker) Start:11-Feb-2019 Instruction Type:Patient Education How to access health informa tion online - Detail Indication:Current nonsmoker (Renamed from Current non-smoker) Start:11-Feb-2019 Instruction Type:Patient Education Patient Instructions Indication:BMI 30.0-30.9,adult Start:11-Feb-2019 Instruction Type:Provider Instructions for Treatment How to access health informa tion online Indication:Current nonsmoker (Renamed from Current non-smoker) Start:08-Feb-2019 Instruction Type:Patient Education How to access health informa tion online - Detail Indication:Current nonsmoker (Renamed from Current non-smoker) Start:08-Feb-2019 Instruction Type:Patient Education Patient Instructions Indication:Current nonsmoker (Renamed from Current non-smoker) Start:08-Feb-2019 Instruction Type:Provider Instructions for Treatment How to access health informa tion online Indication:Current nonsmoker (Renamed from Current non-smoker) Start:22-Aug-2018 Instruction Type:Patient Education How to access health informa tion online - Detail Indication:Current nonsmoker (Renamed from Current non-smoker) Start:22-Aug-2018 Instruction Type:Patient Education Patient Instructions Indication:BMI 33.0-33.9,adult Start:22-Aug-2018 Instruction Type:Provider Instructions for Treatment How to access health informa tion online Indication:Current nonsmoker (Renamed from Current non-smoker) Start:21-May-2018 Instruction Type:Patient Education How to access health informa tion online - Detail Indication:Current nonsmoker (Renamed from Current non-smoker) Start:21-May-2018 Instruction Type:Patient Education Patient Instructions Indication:Rash of unknown cause Start:21-May-2018 Instruction Type:Provider Instructions for Treatment How to access health informa tion online Indication:Current nonsmoker (Renamed from Current non-smoker) Start:16-Feb-2018 Instruction Type:Patient Education How to access health informa tion online - Detail Indication:Current nonsmoker (Renamed from Current non-smoker) Start:16-Feb-2018 Instruction Type:Patient Education Patient Instructions Indication:CKD stage G2/A1, GFR 60-89 and albumin creatinine ratio <30 mg/g Start:16-Feb-2018 Instruction Type:Provider Instructions for Treatment How to access health informa tion online Indication:BMI 32.0-32.9,adult Start:01-Jan-2018 Instruction Type:Patient Education How to access health informa tion online - Detail Indication:BMI 32.0-32.9,adult Start:01-Jan-2018 Instruction Type:Patient Education Patient Instructions Indication:Cough Start:01-Jan-2018 Instruction Type:Provider Instructions for Treatment How to access health informa tion online Indication:Encounter for routine history and physical exam for male Start:30-Oct-2015 Instruction Type:Patient Education How to access health informa tion online - Detail Indication:Encounter for routine history and physical exam for male Start:30-Oct-2015 Instruction Type:Patient Education Patient Instructions Indication:Encounter for routine history and physical exam for male Start:30-Oct-2015 Instruction Type:Provider Instructions for Treatment Name Dates Details How to access health informa tion online Indication:Current nonsmoker (Renamed from Current non-smoker) Start:08-Jun-2020 Instruction Type:Patient Education How to access health informa tion online - Detail Indication:Current nonsmoker (Renamed from Current non-smoker) Start:08-Jun-2020 Instruction Type:Patient Education Patient Instructions Indication:Need for prophylactic vaccination and inoculation against influenza (Renamed from Need for immunization against influenza) Start:08-Jun-2020 Instruction Type:Provider Instructions for Treatment How to access health informa tion online Indication:Current nonsmoker (Renamed from Current non-smoker) Start:31-Jan-2020 Instruction Type:Patient Education How to access health informa tion online - Detail Indication:Current nonsmoker (Renamed from Current non-smoker) Start:31-Jan-2020 Instruction Type:Patient Education Patient Instructions Indication:Afib Start:31-Jan-2020 Instruction Type:Provider Instructions for Treatment How to access health informa tion online Indication:Current nonsmoker (Renamed from Current non-smoker) Start:30-Sep-2019 Instruction Type:Patient Education How to access health informa tion online - Detail Indication:Current nonsmoker (Renamed from Current non-smoker) Start:30-Sep-2019 Instruction Type:Patient Education Patient Instructions Indication:Current nonsmoker (Renamed from Current non-smoker) Start:30-Sep-2019 Instruction Type:Provider Instructions for Treatment How to access health informa tion online Indication:Current nonsmoker (Renamed from Current non-smoker) Start:24-May-2019 Instruction Type:Patient Education How to access health informa tion online - Detail Indication:Current nonsmoker (Renamed from Current non-smoker) Start:24-May-2019 Instruction Type:Patient Education Patient Instructions Indication:Screening for prostate cancer Start:24-May-2019 Instruction Type:Provider Instructions for Treatment How to access health informa tion online Indication:Current nonsmoker (Renamed from Current non-smoker) Start:20-Feb-2019 Instruction Type:Patient Education How to access health informa tion online - Detail Indication:Current nonsmoker (Renamed from Current non-smoker) Start:20-Feb-2019 Instruction Type:Patient Education Patient Instructions Indication:BMI 30.0-30.9,adult Start:20-Feb-2019 Instruction Type:Provider Instructions for Treatment How to access health informa tion online Indication:Current nonsmoker (Renamed from Current non-smoker) Start:11-Feb-2019 Instruction Type:Patient Education How to access health informa tion online - Detail Indication:Current nonsmoker (Renamed from Current non-smoker) Start:11-Feb-2019 Instruction Type:Patient Education Patient Instructions Indication:BMI 30.0-30.9,adult Start:11-Feb-2019 Instruction Type:Provider Instructions for Treatment How to access health informa tion online Indication:Current nonsmoker (Renamed from Current non-smoker) Start:08-Feb-2019 Instruction Type:Patient Education How to access health informa tion online - Detail Indication:Current nonsmoker (Renamed from Current non-smoker) Start:08-Feb-2019 Instruction Type:Patient Education Patient Instructions Indication:Current nonsmoker (Renamed from Current non-smoker) Start:08-Feb-2019 Instruction Type:Provider Instructions for Treatment How to access health informa tion online Indication:Current nonsmoker (Renamed from Current non-smoker) Start:22-Aug-2018 Instruction Type:Patient Education How to access health informa tion online - Detail Indication:Current nonsmoker (Renamed from Current non-smoker) Start:22-Aug-2018 Instruction Type:Patient Education Patient Instructions Indication:BMI 33.0-33.9,adult Start:22-Aug-2018 Instruction Type:Provider Instructions for Treatment How to access health informa tion online Indication:Current nonsmoker (Renamed from Current non-smoker) Start:21-May-2018 Instruction Type:Patient Education How to access health informa tion online - Detail Indication:Current nonsmoker (Renamed from Current non-smoker) Start:21-May-2018 Instruction Type:Patient Education Patient Instructions Indication:Rash of unknown cause Start:21-May-2018 Instruction Type:Provider Instructions for Treatment How to access health informa tion online Indication:Current nonsmoker (Renamed from Current non-smoker) Start:16-Feb-2018 Instruction Type:Patient Education How to access health informa tion online - Detail Indication:Current nonsmoker (Renamed from Current non-smoker) Start:16-Feb-2018 Instruction Type:Patient Education Patient Instructions Indication:CKD stage G2/A1, GFR 60-89 and albumin creatinine ratio <30 mg/g Start:16-Feb-2018 Instruction Type:Provider Instructions for Treatment How to access health informa tion online Indication:BMI 32.0-32.9,adult Start:01-Jan-2018 Instruction Type:Patient Education How to access health informa tion online - Detail Indication:BMI 32.0-32.9,adult Start:01-Jan-2018 Instruction Type:Patient Education Patient Instructions Indication:Cough Start:01-Jan-2018 Instruction Type:Provider Instructions for Treatment How to access health informa tion online Indication:Encounter for routine history and physical exam for male Start:30-Oct-2015 Instruction Type:Patient Education How to access health informa tion online - Detail Indication:Encounter for routine history and physical exam for male Start:30-Oct-2015 Instruction Type:Patient Education Patient Instructions Indication:Encounter for routine history and physical exam for male Start:30-Oct-2015 Instruction Type:Provider Instructions for Treatment Name Dates Details Current nonsmoker (Renamed f rom Current non-smoker) : How to access health information online Indication:Current nonsmoker (Renamed from Current non-smoker) Current nonsmoker (Renamed f rom Current non-smoker) : How to access health information online - Detail Indication:Current nonsmoker (Renamed from Current non-smoker) BMI 33.0-33.9,adult : Patien t Instructions Indication:BMI 33.0-33.9,adult Rash of unknown cause : Giselle ent Instructions Indication:Rash of unknown cause CKD stage G2/A1, GFR 60-89 a nd albumin creatinine ratio <30 mg/g : Patient Instructions Indication:CKD stage G2/A1, GFR 60-89 and albumin creatinine ratio <30 mg/g BMI 32.0-32.9,adult : How to access health information online Indication:BMI 32.0-32.9,adult BMI 32.0-32.9,adult : How to access health information online - Detail Indication:BMI 32.0-32.9,adult Cough : Patient Instructions Indication:Cough Encounter for routine histor y and physical exam for male : How to access health information online Indication:Encounter for routine history and physical exam for male Encounter for routine histor y and physical exam for male : How to access health information online - Detail Indication:Encounter for routine history and physical exam for male Encounter for routine histor y and physical exam for male : Patient Instructions Indication:Encounter for routine history and physical exam for male Name Dates Details How to access health informa tion online Indication:Current nonsmoker (Renamed from Current non-smoker) Start:08-Feb-2019 Instruction Type:Patient Education How to access health informa tion online - Detail Indication:Current nonsmoker (Renamed from Current non-smoker) Start:08-Feb-2019 Instruction Type:Patient Education Patient Instructions Indication:Current nonsmoker (Renamed from Current non-smoker) Start:08-Feb-2019 Instruction Type:Provider Instructions for Treatment How to access health informa tion online Indication:Current nonsmoker (Renamed from Current non-smoker) Start:22-Aug-2018 Instruction Type:Patient Education How to access health informa tion online - Detail Indication:Current nonsmoker (Renamed from Current non-smoker) Start:22-Aug-2018 Instruction Type:Patient Education Patient Instructions Indication:BMI 33.0-33.9,adult Start:22-Aug-2018 Instruction Type:Provider Instructions for Treatment How to access health informa tion online Indication:Current nonsmoker (Renamed from Current non-smoker) Start:21-May-2018 Instruction Type:Patient Education How to access health informa tion online - Detail Indication:Current nonsmoker (Renamed from Current non-smoker) Start:21-May-2018 Instruction Type:Patient Education Patient Instructions Indication:Rash of unknown cause Start:21-May-2018 Instruction Type:Provider Instructions for Treatment How to access health informa tion online Indication:Current nonsmoker (Renamed from Current non-smoker) Start:16-Feb-2018 Instruction Type:Patient Education How to access health informa tion online - Detail Indication:Current nonsmoker (Renamed from Current non-smoker) Start:16-Feb-2018 Instruction Type:Patient Education Patient Instructions Indication:CKD stage G2/A1, GFR 60-89 and albumin creatinine ratio <30 mg/g Start:16-Feb-2018 Instruction Type:Provider Instructions for Treatment How to access health informa tion online Indication:BMI 32.0-32.9,adult Start:01-Jan-2018 Instruction Type:Patient Education How to access health informa tion online - Detail Indication:BMI 32.0-32.9,adult Start:01-Jan-2018 Instruction Type:Patient Education Patient Instructions Indication:Cough Start:01-Jan-2018 Instruction Type:Provider Instructions for Treatment How to access health informa tion online Indication:Encounter for routine history and physical exam for male Start:30-Oct-2015 Instruction Type:Patient Education How to access health informa tion online - Detail Indication:Encounter for routine history and physical exam for male Start:30-Oct-2015 Instruction Type:Patient Education Patient Instructions Indication:Encounter for routine history and physical exam for male Start:30-Oct-2015 Instruction Type:Provider Instructions for Treatment Name Dates Details How to access health informa tion online Indication:Current nonsmoker (Renamed from Current non-smoker) Start:20-Feb-2019 Instruction Type:Patient Education How to access health informa tion online - Detail Indication:Current nonsmoker (Renamed from Current non-smoker) Start:20-Feb-2019 Instruction Type:Patient Education Patient Instructions Indication:BMI 30.0-30.9,adult Start:20-Feb-2019 Instruction Type:Provider Instructions for Treatment How to access health informa tion online Indication:Current nonsmoker (Renamed from Current non-smoker) Start:11-Feb-2019 Instruction Type:Patient Education How to access health informa tion online - Detail Indication:Current nonsmoker (Renamed from Current non-smoker) Start:11-Feb-2019 Instruction Type:Patient Education Patient Instructions Indication:BMI 30.0-30.9,adult Start:11-Feb-2019 Instruction Type:Provider Instructions for Treatment How to access health informa tion online Indication:Current nonsmoker (Renamed from Current non-smoker) Start:08-Feb-2019 Instruction Type:Patient Education How to access health informa tion online - Detail Indication:Current nonsmoker (Renamed from Current non-smoker) Start:08-Feb-2019 Instruction Type:Patient Education Patient Instructions Indication:Current nonsmoker (Renamed from Current non-smoker) Start:08-Feb-2019 Instruction Type:Provider Instructions for Treatment How to access health informa tion online Indication:Current nonsmoker (Renamed from Current non-smoker) Start:22-Aug-2018 Instruction Type:Patient Education How to access health informa tion online - Detail Indication:Current nonsmoker (Renamed from Current non-smoker) Start:22-Aug-2018 Instruction Type:Patient Education Patient Instructions Indication:BMI 33.0-33.9,adult Start:22-Aug-2018 Instruction Type:Provider Instructions for Treatment How to access health informa tion online Indication:Current nonsmoker (Renamed from Current non-smoker) Start:21-May-2018 Instruction Type:Patient Education How to access health informa tion online - Detail Indication:Current nonsmoker (Renamed from Current non-smoker) Start:21-May-2018 Instruction Type:Patient Education Patient Instructions Indication:Rash of unknown cause Start:21-May-2018 Instruction Type:Provider Instructions for Treatment How to access health informa tion online Indication:Current nonsmoker (Renamed from Current non-smoker) Start:16-Feb-2018 Instruction Type:Patient Education How to access health informa tion online - Detail Indication:Current nonsmoker (Renamed from Current non-smoker) Start:16-Feb-2018 Instruction Type:Patient Education Patient Instructions Indication:CKD stage G2/A1, GFR 60-89 and albumin creatinine ratio <30 mg/g Start:16-Feb-2018 Instruction Type:Provider Instructions for Treatment How to access health informa tion online Indication:BMI 32.0-32.9,adult Start:01-Jan-2018 Instruction Type:Patient Education How to access health informa tion online - Detail Indication:BMI 32.0-32.9,adult Start:01-Jan-2018 Instruction Type:Patient Education Patient Instructions Indication:Cough Start:01-Jan-2018 Instruction Type:Provider Instructions for Treatment How to access health informa tion online Indication:Encounter for routine history and physical exam for male Start:30-Oct-2015 Instruction Type:Patient Education How to access health informa tion online - Detail Indication:Encounter for routine history and physical exam for male Start:30-Oct-2015 Instruction Type:Patient Education Patient Instructions Indication:Encounter for routine history and physical exam for male Start:30-Oct-2015 Instruction Type:Provider Instructions for Treatment Name Dates Details How to access health informa tion online Indication:Current nonsmoker (Renamed from Current non-smoker) Start:08-Jun-2020 Instruction Type:Patient Education How to access health informa tion online - Detail Indication:Current nonsmoker (Renamed from Current non-smoker) Start:08-Jun-2020 Instruction Type:Patient Education Patient Instructions Indication:Need for prophylactic vaccination and inoculation against influenza (Renamed from Need for immunization against influenza) Start:08-Jun-2020 Instruction Type:Provider Instructions for Treatment How to access health informa tion online Indication:Current nonsmoker (Renamed from Current non-smoker) Start:31-Jan-2020 Instruction Type:Patient Education How to access health informa tion online - Detail Indication:Current nonsmoker (Renamed from Current non-smoker) Start:31-Jan-2020 Instruction Type:Patient Education Patient Instructions Indication:Afib Start:31-Jan-2020 Instruction Type:Provider Instructions for Treatment How to access health informa tion online Indication:Current nonsmoker (Renamed from Current non-smoker) Start:30-Sep-2019 Instruction Type:Patient Education How to access health informa tion online - Detail Indication:Current nonsmoker (Renamed from Current non-smoker) Start:30-Sep-2019 Instruction Type:Patient Education Patient Instructions Indication:Current nonsmoker (Renamed from Current non-smoker) Start:30-Sep-2019 Instruction Type:Provider Instructions for Treatment How to access health informa tion online Indication:Current nonsmoker (Renamed from Current non-smoker) Start:24-May-2019 Instruction Type:Patient Education How to access health informa tion online - Detail Indication:Current nonsmoker (Renamed from Current non-smoker) Start:24-May-2019 Instruction Type:Patient Education Patient Instructions Indication:Screening for prostate cancer Start:24-May-2019 Instruction Type:Provider Instructions for Treatment How to access health informa tion online Indication:Current nonsmoker (Renamed from Current non-smoker) Start:20-Feb-2019 Instruction Type:Patient Education How to access health informa tion online - Detail Indication:Current nonsmoker (Renamed from Current non-smoker) Start:20-Feb-2019 Instruction Type:Patient Education Patient Instructions Indication:BMI 30.0-30.9,adult Start:20-Feb-2019 Instruction Type:Provider Instructions for Treatment How to access health informa tion online Indication:Current nonsmoker (Renamed from Current non-smoker) Start:11-Feb-2019 Instruction Type:Patient Education How to access health informa tion online - Detail Indication:Current nonsmoker (Renamed from Current non-smoker) Start:11-Feb-2019 Instruction Type:Patient Education Patient Instructions Indication:BMI 30.0-30.9,adult Start:11-Feb-2019 Instruction Type:Provider Instructions for Treatment How to access health informa tion online Indication:Current nonsmoker (Renamed from Current non-smoker) Start:08-Feb-2019 Instruction Type:Patient Education How to access health informa tion online - Detail Indication:Current nonsmoker (Renamed from Current non-smoker) Start:08-Feb-2019 Instruction Type:Patient Education Patient Instructions Indication:Current nonsmoker (Renamed from Current non-smoker) Start:08-Feb-2019 Instruction Type:Provider Instructions for Treatment How to access health informa tion online Indication:Current nonsmoker (Renamed from Current non-smoker) Start:22-Aug-2018 Instruction Type:Patient Education How to access health informa tion online - Detail Indication:Current nonsmoker (Renamed from Current non-smoker) Start:22-Aug-2018 Instruction Type:Patient Education Patient Instructions Indication:BMI 33.0-33.9,adult Start:22-Aug-2018 Instruction Type:Provider Instructions for Treatment How to access health informa tion online Indication:Current nonsmoker (Renamed from Current non-smoker) Start:21-May-2018 Instruction Type:Patient Education How to access health informa tion online - Detail Indication:Current nonsmoker (Renamed from Current non-smoker) Start:21-May-2018 Instruction Type:Patient Education Patient Instructions Indication:Rash of unknown cause Start:21-May-2018 Instruction Type:Provider Instructions for Treatment How to access health informa tion online Indication:Current nonsmoker (Renamed from Current non-smoker) Start:16-Feb-2018 Instruction Type:Patient Education How to access health informa tion online - Detail Indication:Current nonsmoker (Renamed from Current non-smoker) Start:16-Feb-2018 Instruction Type:Patient Education Patient Instructions Indication:CKD stage G2/A1, GFR 60-89 and albumin creatinine ratio <30 mg/g Start:16-Feb-2018 Instruction Type:Provider Instructions for Treatment How to access health informa tion online Indication:BMI 32.0-32.9,adult Start:01-Jan-2018 Instruction Type:Patient Education How to access health informa tion online - Detail Indication:BMI 32.0-32.9,adult Start:01-Jan-2018 Instruction Type:Patient Education Patient Instructions Indication:Cough Start:01-Jan-2018 Instruction Type:Provider Instructions for Treatment How to access health informa tion online Indication:Encounter for routine history and physical exam for male Start:30-Oct-2015 Instruction Type:Patient Education How to access health informa tion online - Detail Indication:Encounter for routine history and physical exam for male Start:30-Oct-2015 Instruction Type:Patient Education Patient Instructions Indication:Encounter for routine history and physical exam for male Start:30-Oct-2015 Instruction Type:Provider Instructions for Treatment Name Dates Details How to access health informa tion online Indication:Current nonsmoker (Renamed from Current non-smoker) Start:20-Feb-2019 Instruction Type:Patient Education How to access health informa tion online - Detail Indication:Current nonsmoker (Renamed from Current non-smoker) Start:20-Feb-2019 Instruction Type:Patient Education Patient Instructions Indication:Current nonsmoker (Renamed from Current non-smoker) Start:20-Feb-2019 Instruction Type:Provider Instructions for Treatment How to access health informa tion online Indication:Current nonsmoker (Renamed from Current non-smoker) Start:11-Feb-2019 Instruction Type:Patient Education How to access health informa tion online - Detail Indication:Current nonsmoker (Renamed from Current non-smoker) Start:11-Feb-2019 Instruction Type:Patient Education Patient Instructions Indication:BMI 30.0-30.9,adult Start:11-Feb-2019 Instruction Type:Provider Instructions for Treatment How to access health informa tion online Indication:Current nonsmoker (Renamed from Current non-smoker) Start:08-Feb-2019 Instruction Type:Patient Education How to access health informa tion online - Detail Indication:Current nonsmoker (Renamed from Current non-smoker) Start:08-Feb-2019 Instruction Type:Patient Education Patient Instructions Indication:Current nonsmoker (Renamed from Current non-smoker) Start:08-Feb-2019 Instruction Type:Provider Instructions for Treatment How to access health informa tion online Indication:Current nonsmoker (Renamed from Current non-smoker) Start:22-Aug-2018 Instruction Type:Patient Education How to access health informa tion online - Detail Indication:Current nonsmoker (Renamed from Current non-smoker) Start:22-Aug-2018 Instruction Type:Patient Education Patient Instructions Indication:BMI 33.0-33.9,adult Start:22-Aug-2018 Instruction Type:Provider Instructions for Treatment How to access health informa tion online Indication:Current nonsmoker (Renamed from Current non-smoker) Start:21-May-2018 Instruction Type:Patient Education How to access health informa tion online - Detail Indication:Current nonsmoker (Renamed from Current non-smoker) Start:21-May-2018 Instruction Type:Patient Education Patient Instructions Indication:Rash of unknown cause Start:21-May-2018 Instruction Type:Provider Instructions for Treatment How to access health informa tion online Indication:Current nonsmoker (Renamed from Current non-smoker) Start:16-Feb-2018 Instruction Type:Patient Education How to access health informa tion online - Detail Indication:Current nonsmoker (Renamed from Current non-smoker) Start:16-Feb-2018 Instruction Type:Patient Education Patient Instructions Indication:CKD stage G2/A1, GFR 60-89 and albumin creatinine ratio <30 mg/g Start:16-Feb-2018 Instruction Type:Provider Instructions for Treatment How to access health informa tion online Indication:BMI 32.0-32.9,adult Start:01-Jan-2018 Instruction Type:Patient Education How to access health informa tion online - Detail Indication:BMI 32.0-32.9,adult Start:01-Jan-2018 Instruction Type:Patient Education Patient Instructions Indication:Cough Start:01-Jan-2018 Instruction Type:Provider Instructions for Treatment How to access health informa tion online Indication:Encounter for routine history and physical exam for male Start:30-Oct-2015 Instruction Type:Patient Education How to access health informa tion online - Detail Indication:Encounter for routine history and physical exam for male Start:30-Oct-2015 Instruction Type:Patient Education Patient Instructions Indication:Encounter for routine history and physical exam for male Start:30-Oct-2015 Instruction Type:Provider Instructions for Treatment Name Dates Details DISCONTINUED - TSH (THYROID STIMULATING HORMONE) (94676) Indication:Hypothyroid Start:05-Oct-2020 Instruction Type:Patient Education DISCONTINUED - METABOLIC SUTTON EL, COMPREHENSIVE (89457) Indication:Elevated liver enzymes Start:05-Oct-2020 Instruction Type:Patient Education DISCONTINUED - LIPID PANEL ( 29719) Indication:Elevated liver enzymes Start:05-Oct-2020 Instruction Type:Patient Education DISCONTINUED - CBC, PLATELET S & AUT DIFF (96367) Indication:Elevated liver enzymes Start:05-Oct-2020 Instruction Type:Patient Education DISCONTINUED - MICROALBUMIN: CREATININE RATIO (47123) AND (12091) Indication:Hypertension Start:05-Oct-2020 Instruction Type:Patient Education DISCONTINUED - TSH (91517) Indication:Hypertension Start:05-Oct-2020 Instruction Type:Patient Education DISCONTINUED - CBC, PLATELET S & AUT DIFF (49667) Indication:Hypertension Start:05-Oct-2020 Instruction Type:Patient Education DISCONTINUED - METABOLIC SUTTON EL, COMPREHENSIVE (43995) Indication:Hypertension Start:05-Oct-2020 Instruction Type:Patient Education DISCONTINUED - LIPID PANEL ( 16731) Indication:Hypercholesteremia Start:05-Oct-2020 Instruction Type:Patient Education Patient Instructions Indication:Current nonsmoker (Renamed from Current non-smoker) Start:05-Oct-2020 Instruction Type:Provider Instructions for Treatment How to Access Health Informa tion Online using Patient Portal and [employer] Indication:Current nonsmoker (Renamed from Current non-smoker) Start:05-Oct-2020 Instruction Type:Patient Education How to access health informa tion online Indication:Current nonsmoker (Renamed from Current non-smoker) Start:08-Jun-2020 Instruction Type:Patient Education How to access health informa tion online - Detail Indication:Current nonsmoker (Renamed from Current non-smoker) Start:08-Jun-2020 Instruction Type:Patient Education Patient Instructions Indication:Need for prophylactic vaccination and inoculation against influenza (Renamed from Need for immunization against influenza) Start:08-Jun-2020 Instruction Type:Provider Instructions for Treatment How to access health informa tion online Indication:Current nonsmoker (Renamed from Current non-smoker) Start:31-Jan-2020 Instruction Type:Patient Education How to access health informa tion online - Detail Indication:Current nonsmoker (Renamed from Current non-smoker) Start:31-Jan-2020 Instruction Type:Patient Education Patient Instructions Indication:Afib Start:31-Jan-2020 Instruction Type:Provider Instructions for Treatment How to access health informa tion online Indication:Current nonsmoker (Renamed from Current non-smoker) Start:30-Sep-2019 Instruction Type:Patient Education How to access health informa tion online - Detail Indication:Current nonsmoker (Renamed from Current non-smoker) Start:30-Sep-2019 Instruction Type:Patient Education Patient Instructions Indication:Current nonsmoker (Renamed from Current non-smoker) Start:30-Sep-2019 Instruction Type:Provider Instructions for Treatment How to access health informa tion online Indication:Current nonsmoker (Renamed from Current non-smoker) Start:24-May-2019 Instruction Type:Patient Education How to access health informa tion online - Detail Indication:Current nonsmoker (Renamed from Current non-smoker) Start:24-May-2019 Instruction Type:Patient Education Patient Instructions Indication:Screening for prostate cancer Start:24-May-2019 Instruction Type:Provider Instructions for Treatment How to access health informa tion online Indication:Current nonsmoker (Renamed from Current non-smoker) Start:20-Feb-2019 Instruction Type:Patient Education How to access health informa tion online - Detail Indication:Current nonsmoker (Renamed from Current non-smoker) Start:20-Feb-2019 Instruction Type:Patient Education Patient Instructions Indication:BMI 30.0-30.9,adult Start:20-Feb-2019 Instruction Type:Provider Instructions for Treatment How to access health informa tion online Indication:Current nonsmoker (Renamed from Current non-smoker) Start:11-Feb-2019 Instruction Type:Patient Education How to access health informa tion online - Detail Indication:Current nonsmoker (Renamed from Current non-smoker) Start:11-Feb-2019 Instruction Type:Patient Education Patient Instructions Indication:BMI 30.0-30.9,adult Start:11-Feb-2019 Instruction Type:Provider Instructions for Treatment How to access health informa tion online Indication:Current nonsmoker (Renamed from Current non-smoker) Start:08-Feb-2019 Instruction Type:Patient Education How to access health informa tion online - Detail Indication:Current nonsmoker (Renamed from Current non-smoker) Start:08-Feb-2019 Instruction Type:Patient Education Patient Instructions Indication:Current nonsmoker (Renamed from Current non-smoker) Start:08-Feb-2019 Instruction Type:Provider Instructions for Treatment How to access health informa tion online Indication:Current nonsmoker (Renamed from Current non-smoker) Start:22-Aug-2018 Instruction Type:Patient Education How to access health informa tion online - Detail Indication:Current nonsmoker (Renamed from Current non-smoker) Start:22-Aug-2018 Instruction Type:Patient Education Patient Instructions Indication:BMI 33.0-33.9,adult Start:22-Aug-2018 Instruction Type:Provider Instructions for Treatment How to access health informa tion online Indication:Current nonsmoker (Renamed from Current non-smoker) Start:21-May-2018 Instruction Type:Patient Education How to access health informa tion online - Detail Indication:Current nonsmoker (Renamed from Current non-smoker) Start:21-May-2018 Instruction Type:Patient Education Patient Instructions Indication:Rash of unknown cause Start:21-May-2018 Instruction Type:Provider Instructions for Treatment How to access health informa tion online Indication:Current nonsmoker (Renamed from Current non-smoker) Start:16-Feb-2018 Instruction Type:Patient Education How to access health informa tion online - Detail Indication:Current nonsmoker (Renamed from Current non-smoker) Start:16-Feb-2018 Instruction Type:Patient Education Patient Instructions Indication:CKD stage G2/A1, GFR 60-89 and albumin creatinine ratio <30 mg/g Start:16-Feb-2018 Instruction Type:Provider Instructions for Treatment How to access health informa tion online Indication:BMI 32.0-32.9,adult Start:01-Jan-2018 Instruction Type:Patient Education How to access health informa tion online - Detail Indication:BMI 32.0-32.9,adult Start:01-Jan-2018 Instruction Type:Patient Education Patient Instructions Indication:Cough Start:01-Jan-2018 Instruction Type:Provider Instructions for Treatment How to access health informa tion online Indication:Encounter for routine history and physical exam for male Start:30-Oct-2015 Instruction Type:Patient Education How to access health informa tion online - Detail Indication:Encounter for routine history and physical exam for male Start:30-Oct-2015 Instruction Type:Patient Education Patient Instructions Indication:Encounter for routine history and physical exam for male Start:30-Oct-2015 Instruction Type:Provider Instructions for Treatment Name Dates Details DISCONTINUED - TSH (THYROID STIMULATING HORMONE) (38719) Indication:Hypothyroid Start:05-Oct-2020 Instruction Type:Patient Education DISCONTINUED - METABOLIC SUTTON EL, COMPREHENSIVE (14732) Indication:Elevated liver enzymes Start:05-Oct-2020 Instruction Type:Patient Education DISCONTINUED - LIPID PANEL ( 78954) Indication:Elevated liver enzymes Start:05-Oct-2020 Instruction Type:Patient Education DISCONTINUED - CBC, PLATELET S & AUT DIFF (68346) Indication:Elevated liver enzymes Start:29-Mar-2021 Instruction Type:Patient Education DISCONTINUED - MICROALBUMIN: CREATININE RATIO (15089) AND (06108) Indication:Hypertension Start:05-Oct-2020 Instruction Type:Patient Education DISCONTINUED - TSH (83463) Indication:Hypertension Start:05-Oct-2020 Instruction Type:Patient Education DISCONTINUED - CBC, PLATELET S & AUT DIFF (76252) Indication:Hypertension Start:05-Oct-2020 Instruction Type:Patient Education DISCONTINUED - METABOLIC SUTTON EL, COMPREHENSIVE (05365) Indication:Hypertension Start:05-Oct-2020 Instruction Type:Patient Education DISCONTINUED - LIPID PANEL ( 82220) Indication:Hypercholesteremia Start:05-Oct-2020 Instruction Type:Patient Education Patient Instructions Indication:Elevated liver enzymes Start:05-Oct-2020 Instruction Type:Provider Instructions for Treatment How to Access Health Informa tion Online using Patient Portal and [employer] Apps Indication:Current nonsmoker (Renamed from Current non-smoker) Start:05-Oct-2020 Instruction Type:Patient Education How to access health informa tion online Indication:Current nonsmoker (Renamed from Current non-smoker) Start:08-Jun-2020 Instruction Type:Patient Education How to access health informa tion online - Detail Indication:Current nonsmoker (Renamed from Current non-smoker) Start:08-Jun-2020 Instruction Type:Patient Education Patient Instructions Indication:Need for prophylactic vaccination and inoculation against influenza (Renamed from Need for immunization against influenza) Start:08-Jun-2020 Instruction Type:Provider Instructions for Treatment How to access health informa tion online Indication:Current nonsmoker (Renamed from Current non-smoker) Start:31-Jan-2020 Instruction Type:Patient Education How to access health informa tion online - Detail Indication:Current nonsmoker (Renamed from Current non-smoker) Start:31-Jan-2020 Instruction Type:Patient Education Patient Instructions Indication:Afib Start:31-Jan-2020 Instruction Type:Provider Instructions for Treatment How to access health informa tion online Indication:Current nonsmoker (Renamed from Current non-smoker) Start:30-Sep-2019 Instruction Type:Patient Education How to access health informa tion online - Detail Indication:Current nonsmoker (Renamed from Current non-smoker) Start:30-Sep-2019 Instruction Type:Patient Education Patient Instructions Indication:Current nonsmoker (Renamed from Current non-smoker) Start:30-Sep-2019 Instruction Type:Provider Instructions for Treatment How to access health informa tion online Indication:Current nonsmoker (Renamed from Current non-smoker) Start:24-May-2019 Instruction Type:Patient Education How to access health informa tion online - Detail Indication:Current nonsmoker (Renamed from Current non-smoker) Start:24-May-2019 Instruction Type:Patient Education Patient Instructions Indication:Screening for prostate cancer Start:24-May-2019 Instruction Type:Provider Instructions for Treatment How to access health informa tion online Indication:Current nonsmoker (Renamed from Current non-smoker) Start:20-Feb-2019 Instruction Type:Patient Education How to access health informa tion online - Detail Indication:Current nonsmoker (Renamed from Current non-smoker) Start:20-Feb-2019 Instruction Type:Patient Education Patient Instructions Indication:BMI 30.0-30.9,adult Start:20-Feb-2019 Instruction Type:Provider Instructions for Treatment How to access health informa tion online Indication:Current nonsmoker (Renamed from Current non-smoker) Start:11-Feb-2019 Instruction Type:Patient Education How to access health informa tion online - Detail Indication:Current nonsmoker (Renamed from Current non-smoker) Start:11-Feb-2019 Instruction Type:Patient Education Patient Instructions Indication:BMI 30.0-30.9,adult Start:11-Feb-2019 Instruction Type:Provider Instructions for Treatment How to access health informa tion online Indication:Current nonsmoker (Renamed from Current non-smoker) Start:08-Feb-2019 Instruction Type:Patient Education How to access health informa tion online - Detail Indication:Current nonsmoker (Renamed from Current non-smoker) Start:08-Feb-2019 Instruction Type:Patient Education Patient Instructions Indication:Current nonsmoker (Renamed from Current non-smoker) Start:08-Feb-2019 Instruction Type:Provider Instructions for Treatment How to access health informa tion online Indication:Current nonsmoker (Renamed from Current non-smoker) Start:22-Aug-2018 Instruction Type:Patient Education How to access health informa tion online - Detail Indication:Current nonsmoker (Renamed from Current non-smoker) Start:22-Aug-2018 Instruction Type:Patient Education Patient Instructions Indication:BMI 33.0-33.9,adult Start:22-Aug-2018 Instruction Type:Provider Instructions for Treatment How to access health informa tion online Indication:Current nonsmoker (Renamed from Current non-smoker) Start:21-May-2018 Instruction Type:Patient Education How to access health informa tion online - Detail Indication:Current nonsmoker (Renamed from Current non-smoker) Start:21-May-2018 Instruction Type:Patient Education Patient Instructions Indication:Rash of unknown cause Start:21-May-2018 Instruction Type:Provider Instructions for Treatment How to access health informa tion online Indication:Current nonsmoker (Renamed from Current non-smoker) Start:16-Feb-2018 Instruction Type:Patient Education How to access health informa tion online - Detail Indication:Current nonsmoker (Renamed from Current non-smoker) Start:16-Feb-2018 Instruction Type:Patient Education Patient Instructions Indication:CKD stage G2/A1, GFR 60-89 and albumin creatinine ratio <30 mg/g Start:16-Feb-2018 Instruction Type:Provider Instructions for Treatment How to access health informa tion online Indication:BMI 32.0-32.9,adult Start:01-Jan-2018 Instruction Type:Patient Education How to access health informa tion online - Detail Indication:BMI 32.0-32.9,adult Start:01-Jan-2018 Instruction Type:Patient Education Patient Instructions Indication:Cough Start:01-Jan-2018 Instruction Type:Provider Instructions for Treatment How to access health informa tion online Indication:Encounter for routine history and physical exam for male Start:30-Oct-2015 Instruction Type:Patient Education How to access health informa tion online - Detail Indication:Encounter for routine history and physical exam for male Start:30-Oct-2015 Instruction Type:Patient Education Patient Instructions Indication:Encounter for routine history and physical exam for male Start:30-Oct-2015 Instruction Type:Provider Instructions for Treatment Chief Complaint and Reason for Visit Chief Complaint 6 M FU right knee pain Reason for Visit Preoperative cardiov ascular examination 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 Atrial fibrillation Nonischemic cardiomyopathy Chief Complaint 6 M FU right knee pain ORDER FROM DR RUIZ Reason for Visit Preoperative cardiov ascular examination 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 Atrial fibrillation Nonischemic cardiomyopathy Chief Complaint Admit Date 6 M FU November 06, 2024 10: 39am E-ORDER/ NEED ORDER November 06, 2024 12: 06pm Reason for Visit Admit Date Atherosclerotic heart diseas e of [place] coronary artery without angina pectoris November 06, 2024 10:39am Encounter for monitoring flecainide ther apy November 06, 2024 10:39am Hypertension November 06, 2024 10: 39am Obesity (BMI 35.0-39.9 without comorbidi ty) November 06, 2024 10:39am Paroxysmal atrial fibrillation October 10:39am Chief Complaint Admit Date 6 M FU November 06, 2024 10: 39am E-ORDER/ NEED ORDER November 06, 2024 12: 06pm CAD, ASHD/2 ORDERING DRS/E ORDERS & YANNA R December 04, 2024 6:01am Chief Complaint Admit Date 6 M FU November 06, 2024 10: 39am E-ORDER/ NEED ORDER November 06, 2024 12: 06pm CAD, ASHD/2 ORDERING DRS/E ORDERS & YANNA R December 04, 2024 6:01am PALP January 17, 2025 8:26 am Chief Complaint Admit Date 6 M FU November 06, 2024 10: 39am E-ORDER/ NEED ORDER November 06, 2024 12: 06pm CAD, ASHD/2 ORDERING DRS/E ORDERS & YANNA R December 04, 2024 6:01am PALP January 17, 2025 8:26 am skipped beats while on flecainide, PAF A ugust 2024 7:45am Additional Source Comments (unrecognized sect ion and content) No Status Records FoundNo Status Records FoundNo Status Records FoundNo Status Records FoundNo Status Records Found INFORMATION SOURCE (unrecogn ized section and content) DATE CREATED AUTHOR 01/01/2018 [facility] DATE CREATED AUTHOR AUTHOR'S ORGANIZ ATION 05/26/2022 [facility] DATE CREATED AUTHOR AUTHOR'S ORGANIZ ATION 11/22/2022 [facility] DATE CREATED AUTHOR AUTHOR'S ORGANIZ ATION 09/11/2023 [facility] DATE CREATED AUTHOR AUTHOR'S ORGANIZ ATION [facility] Care Team (unrecognized sect ion and content) Care Team Personnel Name: ROMAN NICHOLS APRN-COM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 Member Role: Primary Care Physician Address: Address: [address] [id number] [place] Care Team Related Persons Name: GRIFFIN MCKEON Address: [place] [address] Care Team Personnel Name: ROMAN NICHOLS Member Role: Primary Care Physician Address: Address: [address] [place], [place] [address] Care Team Related Persons Name: GRIFFIN MCKEON Address: [place] [address] Care Team Personnel Name: ROMAN NICHOLS Member Role: Primary Care Physician Address: Address: [address] [id number] Care Team Related Persons Name: GRIFFIN MCKEON Address: [place] [address] Goals (unrecognized section and content) Goals may be documented in a n alternate section Care Teams (unrecognized sec tion and content) Team Status: Active Member Role Status Dates Steff Subramanian NP, MIL[employer]OOK-C Family Provider Active HENRI Cornell Primary Care Provider Active Team Status: Inactive Member Role Status Dates HENRI Cornell Primary Care Provi shiloh, Attending Provider, Referring Provider Active Dinkey Brakeman Relationship Specialty Start Date End Date Roman Nichols CNP [address] [address] PCP - General Family Medicine 09/06/23 Peyton Rucker MD [address] [address] Specialty Survey Coordinator Cardiology 09/04/23 Team Status: Active Member Role Status Dates HENRI Cornell Primary Care Provider Active Team Status: Inactive Member Role Status Dates HENRI Cornell Primary Care Provider Active Start: November 06, 2024 End: November 06, 2024 HENRI Cornell Referring Provider Active Start: November 06, 2024 End: November 06, 2024 Dr. Peyton Rucker MD Attending Provider Active Start: November 06, 2024 End: November 06, 2024 Team Status: Inactive Member Role Status Dates Roman Nichols , [employer]OOK-C Primary Care Provider Active Start: November 06, 2024 End: November 06, 2024 Dr. Peyton Rucker MD Attending Provider Active Start: November 06, 2024 End: November 06, 2024 Dr. Peyton Rucker MD Referring Provider Active Start: November 06, 2024 End: November 06, 2024 Team Status: Inactive Member Role Status Dates Roman Nichols , [employer]OOK-C Primary Care Provider Active Start: December 04, 2024 End: December 04, 2024 Dr. Peyton Rucker MD Attending Provider Active Start: December 04, 2024 End: December 04, 2024 Dr. Peyton Rucker MD Referring Provider Active Start: December 04, 2024 End: December 04, 2024 Team Status: Active Member Role Status Dates Roman Nichols , [employer]OOK-C Primary Care Provider Active Start: December 04, 2024 Dr. Peyton Rucker MD Attending Provider Active Start: December 04, 2024 Team Status: Active Member Role/Relationship Status Dates Roman Nichols , [employer]OOK-C Primary Care Provider Active Team Status: Inactive Member Role/Relationship Status Dates Roman Nichols , [employer]OOK-C Primary Care Provider Active Start: November 06, 2024 End: November 06, 2024 Roman Nichols , MILITARY COOK-C Referring Provider Active Start: November 06, 2024 End: November 06, 2024 Dr. Peyton Rucker MD Attending Provider Active Start: November 06, 2024 End: November 06, 2024 Team Status: Inactive Member Role/Relationship Status Dates Roman Nichols , [employer]OOK-C Primary Care Provider Active Start: November 06, 2024 End: November 06, 2024 Dr. Peyton Rucker MD Attending Provider Active Start: November 06, 2024 End: November 06, 2024 Dr. Peyton Rucker MD Referring Provider Active Start: November 06, 2024 End: November 06, 2024 Team Status: Inactive Member Role/Relationship Status Dates Roman Nichols , [employer]OOK-C Primary Care Provider Active Start: December 04, 2024 End: December 04, 2024 Dr. Peyton Rucker MD Attending Provider Active Start: December 04, 2024 End: December 04, 2024 Dr. Peyton Rucker MD Referring Provider Active Start: December 04, 2024 End: December 04, 2024 Team Status: Active Member Role/Relationship Status Dates Roman Nichols MILITARY COOK-C Primary Care Provider Active Start: December 04, 2024 Dr. Peyton Rucker MD Attending Provider Active Start: December 04, 2024 Team Status: Inactive Member Role/Relationship Status Dates Roman Nichols [employer]-C Primary Care Provider Active Start: January 15, 2025 End: January 15, 2025 Hodan Lockett MILITARY COOK, MILITARY COOK-C Attending Provider Active Start: January 15, 2025 End: January 15, 2025 Hodan Lockett MILITARY COOK, MILITARY COOK-C Referring Provider Active Start: January 15, 2025 End: January 15, 2025 Team Status: Active Member Role/Relationship Status Dates Roman Nichols [employer] COOK-C Primary Care Provider Active Start: January 17, 2025 Hodan Lockett MILITARY COOK, MILITARY COOK-C Attending Provider Active Start: January 17, 2025 Hodan Lockett MILITARY COOK, MILITARY COOK-C Referring Provider Active Start: January 17, 2025 Team Status: Inactive Member Role/Relationship Status Dates Roman Nichols MIL[employer] COOK-C Primary Care Provider Active Start: January 17, 2025 End: January 17, 2025 Hodan Lockett MILITARY COOK, MILITARY COOK-C Attending Provider Active Start: January 17, 2025 End: January 17, 2025 Hodan Lockett MILITARY COOK, MILITARY COOK-C Referring Provider Active Start: January 17, 2025 End: January 17, 2025 Team Status: Inactive Member Role/Relationship Status Dates Roman Nichols MILIT[employer] COOK-C Primary Care Provider Active Start: February 17, 2025 End: February 17, 2025 Hodan Lockett MILITARY COOK, MILITARY COOK-C Attending Provider Active Start: February 17, 2025 End: February 17, 2025 Hodan Lockett MILITARY COOK, MILITARY COOK-C Referring Provider Active Start: February 17, 2025 End: February 17, 2025 Source Comments (unrecognize d section and content) In the event this informatio n is protected by the Federal Confidentiality of Alcohol and Drug Abuse Patient Records regulations: The Federal rules restrict any use of the information to criminally investigate or prosecute any alcohol or drug abuse patient.[facility] Reason for Visit (unrecogniz ed section and content) Reason Comments CARD New Patient Consult MILITARY COOK REF FOR PAF FOR RECORDS PERTAINING TO PATIENTS WHO ARE OR HAVE BEEN ENROLLED IN A CHEMICAL DEPENDENCY/SUBSTANCEABUSE PROGRAM, SOME INFORMATION MAY BE OMITTED. This clinical summary was aggregated from multiple sources. Caution should be exercised in using it in the provision of clinical care. This summary normalizes information from multiple sources, and as a consequence, information in this document may materially change the coding, format and clinical context of patient data. In addition, data may be omitted in some cases. CLINICAL DECISIONS SHOULD BE BASED ON THE PRIMARY CLINICAL RECORDS. [facility]. provides no warranty or guarantee of the accuracy or completeness of information in this document.
== END | disposition home or self-care (01) ==
PROVIDERS: PCP Nurse Practitioner Family; Referring Provider Nurse Practitioner Family; Visit Provider Nurse Practitioner Family
DX: E03.9 Hypothyroidism, unspecified (principal); E78.00 Pure hypercholesterolemia, unspecified; I10 Essential (primary) hypertension
CPT/HCPCS: 36415; 84443

== ENCOUNTER → 2025-05-28 | Outpatient (CLI) | payer MEDICARE, OTHER, SELFPAY ==
--- OUTSIDE RECORDS SUMMARY | 2025-05-28 07:32 | XMS RPT_ITS | CCD ---
Author Organization [facility] Care Team Providers Care Machinist Job Setter Name Role Phone Moris Steff Flynn Unavailable Madelyn Mills Unavailable Unavailable Unavailable Unavailable Jono Friend Unavailable Reagan Crews Unavailable Unavailable Unavailable Emerita Grubbs Unavailable Unavailable Slamazin, Alexa Unavailable Unavailable Carlos Alberto Miguel Unavailable Unavailable Carlos Alberto Miguel Unavailable Unavailable Carlos Alberto Carrillo Unavailable Unavailable Meredith Biggs Unavailable Unavailable Steff Subramanian CNP Unavailable Dr. Jono Friend Unavailable Dr. Reagan Crews Unavailable [phone] Carlos Alberto Carrillo LPN Unavailable Unavailable Unavailable Unavailable Miya Parra Unavailable MORIS SHERMAN [facility] Primary Care Physician Alicenorris Steff Unavailable Roman Nichols CNP Unavailable Moris Steff Unavailable Slamazin BARBER, Alexa Unavailable Unavailable Roman Nichols CNP Unavailable Kimberlyn Swain MA Unavailable Unavailable ROMAN HAMPTON Primary Care Physician MIYA PARRA MD Attending Unavailable ROMAN HAMPTON Primary Care Unavail able MIYA PARRA MD Attending Unavailable ROMAN HAMPTON [facility] Care Unavail able MIYA PARRA MD Attending Unavailable MORIS SHERMAN [facility] Care Unavailable MIYA PARRA MD Attending Unavailable MORIS SHERMAN [facility] Unavailable MIYA PARRA MD Attending Unavailable SIMONE HOME PERFORMANCE LABORER-TRIM STENCIL MAKER, ROMAN Primary Care Unavail able MIYA PARRA MD Attending Unavailable CIESA MANAGER OF PHARMACY, [facility] Primary Care Unavailable MIYA PARRA MD Attending Unavailable CIESA MANAGER OF PHARMACY, [facility] Primary Care Unavailable Ciesa LOAN ADVISER, LOAN ADVISER-C [facility] Primary Care Provider Ciesa LOAN ADVISER, LOAN ADVISER-C [facility] Referring Provider Simran LUGO, BRITTNEY Leiva Attending Provider Moris, Steff Referring Unavailable Simone TRIM STENCIL MAKER, Roman Attending Unavailable Simone TRIM STENCIL MAKER, Roman Consulting Unavailable Peyton Rucker MD Unavailable Simone TRIM STENCIL MAKER, Roman Primary Care Provider PEYTON RUCKER Referring Unavailable DANNY RAMOS Attending Unavailable SIMONE, ROMAN Primary Care Unavailable Simone LOAN ADVISER-C, Roman Primary Care Provider Simone LOAN ADVISER-C, Roman Referring Provider Dr. Peyton Rucker MD Attending Provider Dr. Peyton Rucker MD Referring Provider Levy LOAN ADVISER-C, Hodan Attending Provider Levy LOAN ADVISER-C, Hodan Referring Provider Simone LOAN ADVISER-C, Roman Primary Care Physician Levy LOAN ADVISER-C, Hodan Attending Physician Dr. George Mcwilliams MD Attending Physician Simone LOAN ADVISER-C, Roman Attending Physician Simone LOAN ADVISER-C, Roman Referring Provider Dr. Peyton Rucker MD Attending Physician Levy BARAHONA, Hodan Referring Unavailable Simone, Roman Primary Care Unavailable Levy LOAN ADVISER, Hodan Attending Unavailable Levy LOAN ADVISER, Hodan Referring Unavailable George Mcwilliams Attending Unavailable Simone, Roman Primary Care Unavailable Simone, Roman Referring Unavailable Simone, Roman Primary Care Unavailable Simone, Roman Attending Unavailable Peyton Rucker Attending Unavailable Peyton Rucker Referring Unavailable Simone, Roman Primary Care Unavailable Simone, Roman Primary Care Unavailable Neo, Peyton Attending Unavailable Neo, Peyton Referring Unavailable Levy BARAHONA, Hodan Referring Unavailable Simone, Roman Primary Care Unavailable Levy BARAHONA, Hodan Attending Unavailable Simone, Roman Primary Care Unavailable Neo, Peyton Attending Unavailable Simone, Roman Referring Unavailable Simone, Roman Referring Unavailable Neo, Peyton Attending Unavailable Simone, Roman Primary Care Unavailable Simone, Roman Referring Unavailable Simone, Roman Primary Care Unavailable Neo, Peyton Attending Unavailable Simone, Roman Primary Care Unavailable Neo, Peyton Attending Unavailable Hodan Lockett NP Referring Unavailable Simone, Roman Primary Care Unavailable Levy LOAN ADVISER, Hodan Attending Unavailable Simone, Roman Primary Care Unavailable Neo, Peyton Referring Unavailable Neo, Peyton Attending Unavailable Allergies Allergy Classification Reported Allergen(s) Allergy Type Date of Onset Reaction(s) Facility (12 sources) Ibuprofen; Translations: [ibuprofen] Drug Allergy 4 [facility] (12 sources) atorvastatin; Translations: [ATORVASTATIN] Drug Allergy 2 Other: See Comments [facility] (1 source) atorvastatin Drug Allergy 5 [facility] Repository (1 source) Ibuprofen Drug Allergy 5 [facility] Medications Current Medications Medication Drug Class(es) Dates Sig (Normalized) Sig (Original) cholecalciferol 0.05 mg oral tablet (10 sources) Vitamin D Start: 07-30-2021 take 1 tablet by mouth once daily Cholecalciferol (Vitamin D3) 50 mcg (2,000 unit) tablet Active 50 ug PO DAILY July 30, 2021 1:00am Complies with drug therapy 24 hr metoprolol succinate 25 mg extended release oral tablet (20 sources) beta-Adrenergic Jose A Start: 02-20-2025 take 1 tablet by mouth once daily Metoprolol Succinate 25 mg tablet extended release 24 hr Active 25 mg PO DAILY 90 3 February 20, 2025 3:08pm Complies with drug therapy Start: 08-17-2021 Metoprolol Suc cinate ER 25 mg oral TABLET extended release Dose : 25 mg = 1 tab(s), Oral, qDay, # 90 tab(s), 0 Refill(s) Start Date: 08/17/21 Status: Ordered Start: 08-03-2020 End: 11-06-2024 Metoprolol Succinate 25 mg t ablet extended release 24 hr Discontinued 0 .ROUTE .COMPLEX 90 3 February 12, 2024 8:10am November 06, 2024 [...] Metoprolol Succinate Discontinued 12.5 MG PO DAILY 45 February 18, 2020 9:35am August 03, 2020 [...] mg PO DAILY February 01, 2018 12:00am Complies with drug therapy Comment on above: Take 20 mg by [...] mg oral tablet (20 sources) Antiarrhythmic Start: End: take 1 tablet by mouth once daily Amiodarone 200 mg tablet Discontinued 200 mg PO DAILY 30 August 26, 2020 1:00am August 26, 2020 2:14pm Start: 05-24-2019 End: 06-08-2020 take 1 tablet by mouth every other day Amiodarone 200 mg tablet Discontinued 200 mg PO .COMPLEX 45 April 22, 2020 4:10pm 2020 12:21pm 200 [...] 1 {tbl} PO TWICE A DAY 20 August 21, 2023 1:00am December 26, 2023 [...] 4 days. benzonatate 200 mg oral capsule (7 sources) Non-narcotic Antitussive Start: 08-21-2023 End: 12-26-2023 [...] Start : 08-Feb-2019 End : 18-Feb-2019 Inactive flecainide acetate 100 mg oral tablet (20 [...] every twelve hours Flecainide 100 mg tablet Discontinued 100 mg PO Q12H 180 3 October 11, 2024 2:27pm February 04, 2025 1:35pm take 1 tablet by aurora th twice daily flecainide (TAMBOCOR) 100 mg tablet Take 100 mg by mouth two times a day. 0 Active Comment on above: Per Dr. Downs Take 100 mg by mouth two times a day. Nhbefjwo-Xnw-Wllfq-Hr s589-Irbi (Jkasqw-Pnjib-Giz (With Antiox)) 500-500-66.7 mg tablet (7 sources) Start: 02-16-2018 End: 07-30-2021 Vjnsqunj-Ytl-Ascvt-Joq868 -Hyal (Huzdjo-Bspuy-Ciu (With Antiox)) 500-500-66.7 mg tablet Discontinued {tbl} PO 0 February 16, 2018 12:00am July 30, 2021 3:56pm Start: 02-16-2018 End: 07-30-2021 Wkzaxkfa-Qpb-Ouowo-Xdq755-Os al (Ieaxir-Dxmpn-Iqv (With Antiox)) 500-500-66.7 mg tablet Discontinued {tbl} PO February 16, 2018 12:00am July 30, 2021 3:56pm glucosamine sulfate 500 mg oral capsule (20 sources) take 1 mg by mouth once daily Glucosamine 500 MG Oral Capsule daily (500 MG) Inactive hyjjxwdjwkp-zfr-mvfsu roit-hrb 149-hyalur 500 mg-500 mg-66.7 mg tablet (3 sources) Start: 02-17-20 18 End: 07-30-19 22 mbvmnymnpiy-rst-bbwq droit-hrb 149-hyalur 500 mg-500 mg-66.7 mg tablet Discontinued TABLET PO February 15, 2018 11:00pm July 30, 2021 2:56pm Iron Folic BC 500 Oral Tablet (20 sources) Start: 02-17-20 18 End: 05-21-20 18 take 10 tablets by [...] 1 (one) Tablet daily except none on Ken for 0 days Quantity: 90 {Tablet} Refills: [...] Quantity: 90 {Tablet} Refills: 3 Ordered: 11-Jun-2021 Gerardo Carlos Alberto BARBER Start : 22-Dec-2020 End : 11-Jun-2021 Inactive Comments: levothyroxine 125mcg q MWF Start: 11-16-2020 take 1 tablet by aurora th once daily Levothyroxine Sodium 125 MCG Oral Tablet 1 (one) Tablet daily except for tuesdays for 90 days Quantity: 90 {Tablet} Refills: 3 Ordered: 16-Nov-2020 Steff Subramanian CNP, CNP, Mary E Start : 16-Nov-2020 Active Comments: Mail order. Start: 11-16-2020 take 1 tablet by aurora th once daily Levothyroxine Sodium 125 MCG Oral Tablet 1 (one) Tablet daily except for tuesdays for 90 days Quantity: 90 {Tablet} Refills: 3 Ordered: 16-Nov-2020 Steff Subramanian CNP, CNP [place] Start : 16-Nov-2020 Active Comments: daily except for tuesdays Start: 10-05-2020 take 1 tablet by aurora th once daily Levothyroxine Sodium 125 MCG Oral Tablet 1 (one) Tablet daily for 90 days Quantity: 90 {Tablet} Refills: 3 Ordered: 05-Oct-2020 Steff Subramanian CNP E Moris NOWAK [place] Start : 05-Oct-2020 Active Start: 01-31-2020 take 1 tablet by aurora th once daily, then take 1.5 tablets by mouth Levothyroxine Sodium 125 MCG Oral Tablet 1 (one) Tablet daily and 1.5 tablets on sundays and wednesdays for 30 days Quantity: 90 {Tablet} Refills: 3 Ordered: 08-Jun-2020 Steff Subramanian CNP E Moris NOWAK [place] Start : 08-Jun-2020 Active Start: 02-07-2019 take 1 tablet by aurora th once daily, then take 1.5 tablets by mouth Levothyroxine Sodium 125 MCG Oral Tablet 1 (one) Tablet daily and 1.5 tablets on sundays and wednesdays for 30 days Quantity: 90 {Tablet} Refills: 3 Ordered: 07-Feb-2019 Steff Subramanian CNP, CNP, Mary E Start : 07-Feb-2019 Active Start: 05-22-2018 take 1 tablet by aurora th once daily, then take 1.5 tablets by mouth Levothyroxine Sodium 125 MCG Oral Tablet 1 (one) Tablet daily and 1.5 tablets on sundays and wednesdays for 30 days Quantity: 90 {Tablet} Refills: 3 Ordered: 22-May-2018 Steff Subramanian CNP, CNP, Mary E Start : 22-May-2018 Active Start: 04-18-2018 End: [...] (4 sources) Antiarrhythmic, Amide Local Anesthetic Start: 023 Lidoderm 5 % topical patch 1 package per package directions;leave on most painful area for up to 12 hrs for 0 days Quantity: 30 {Patch} Refills: 1 Ordered: 29-Jul-2022 Kimberlyn Swain MA Start : 29-Jul-2022 Active losartan potassium 25 mg oral tablet (20 sources) Angiotensin 2 Receptor Jose A Start: 018 End: 025 take 1 tablet by mouth once daily Losartan 25 mg tablet Discontinued 25 mg PO DAILY 90 June 03, 2024 1:34pm February 04, 2025 1:35pm Comment on above: Take 25 mg by mouth once daily. pimecrolimus 10 mg/ml topical cream (20 sources) Calcineurin Inhibitor Immunosuppressant Start: 019 End: Elidel 1 % External Cream 1 (one) Application bid for 0 days Quantity: 1 {Tube} Refills: 0 Ordered: 24-May-2019 Carlos Alberto Carrillo LPN Start : 22-Aug-2018 End : 24-May-2019 Inactive predniSONE 20 mg oral tablet (4 sources) Start: End: take 2 tablets by mouth once daily predniSONE 20 mg oral tablet 2 Tablet daily for 5 days Quantity: 10 {Tablet} Refills: 0 Ordered: 29-Jul-2022 Roman Nichols CNP Start : 29-Jul-2022 End : 03-Aug-2022 Inactive rivaroxaban 20 mg oral tablet (20 sources) Factor Xa Inhibitor Start: End: take 1 tablet by mouth once daily at dinner Rivaroxaban (Xarelto) 20 mg tablet Discontinued 20 mg PO DAILY 90 3 January 04, 2023 9:06am January 04, 2024 7:59am must administer with evening meal Start: 01-11-2018 End: 06-08-2020 take 1 tablet by mouth once daily Rivaroxaban 20 mg tablet Discontinued 20 mg PO DAILY 90 3 February 18, 2020 10:36am 2020 12:21pm restart [...] Start: 07-29-2022 take 3 tablets by mo ut every twenty-four hours tiZANidine 4 mg oral [...] Problem Date Documented Date Episodic/Chronic Acute bronchitis (7 sources) Acute bronchitis; Translations: [Acute bronchitis, unspecified] [...] amiodarone, Asa, found hypothyroid,being treated.resolved, see new chief customer officer Dr. Cantu. taken off of amiodarone and [...] [facility]. s/p ablation. following w/ Pete Angela [facility]-amiodarone [...] kidney disease Coma; stupor; and brain damage (10 sources) Daytime somnolence; Translations: [Somnolence] 03-02-2018 Episodic Coronary atherosclerosis and other heart disease (20 sources) Coronary atherosclerosis; Translations: [Atherosclerotic heart disease of [place] coronary artery without angina pectoris] Onset: 5 Chronic Comment on above: Nonobstructive coron danny arteries (<30% stenosis in LAD, CX, and RCA: left main normal) per [facility] 02/02/[address] Chino @ [facility] Deficiency and other anemia (20 sources) [...] (20 sources) Hypertensive disorder; Translations: [Hypertension] Onset: 5 05-21-2018 Chronic Comment on above: Goal <130/80, on met oprolol, losartan, amiodarone per [place]ino Goal <130/80, on met oprolol, losartan, amiodarone every other day per [place] Goal <130/80, on met oprolol, losartan, amiodarone Dced by Dr. Cantu, Dced shukriralto added baby ASA Goal <130/80, on met [...] influenza immunization] 10-05-2020 Episodic Nonspecific chest pain (10 sources) Chest pain; Translations: [Chest pain, unspecified] [...] x4 days prior to surgery Other aftercare (16 sources) Long-term current use of drug therapy; Translations: [Other senior care (current) drug therapy] Onset: 4 09-04-2023 Episodic Other aftercare (2 sources) Patient encounter status; Translations: [Encounter for therapeutic drug level monitoring] Onset: 4 09-04-2023 Episodic Other aftercare (2 sources) Long-term current use of anticoagulant; Translations: [supervising broker (current) use of anticoagulants] Onset: 4 09-04-2023 Episodic Other aftercare (1 source) FPC (current) use of anticoagulants; Translations: [Anticoagulant long-term use] Onset: 4 Episodic Other and ill-defined heart disease (10 sources) Right atrial enlargement; Translations: [Cardiomegaly] 03-02-2018 [...] 9 06-02-2015 Episodic Other lower respiratory disease (10 sources) Snoring; Translations: [Snoring] 03-02-2018 Episodic Other [...] I, BMI 30-34.9] Onset: 4 Chronic Other skin disorders (20 sources) Skin lesion; Translations: [Skin lesion] Resolved: 6 10-30-2015 Episodic Comment on above: Rt lateral splinter Other skin disorders (20 sources) Eruption; Translations: [Rash of unknown cause] Resolved: 9 05-21-2018 Episodic Comment on above: left lower leg left lower leg, nat huntley did not work, will send to derm and get mole check Other upper respiratory infections (20 sources) Chronic sinusitis, unspecified; Translations: [Bacterial sinusitis] Resolved: 9 05-21-2018 Chronic Raissa-; endo-; and myocarditis; cardiomyopathy (except that caused by tuberculosis or sexually transmitted disease) (12 sources) Cardiomyopathy; Translations: [Other cardiomyopathies] Chronic Comment [...] PRN hydroxyzine if persistent Residual codes; unclassified (10 sources) Edema of right lower limb; Translations: [...] sees Matti on Xaralto for Afib sees Chino, was cardioverted Unclassified (20 sources) BMI 30.0-30.9,adult [...] has UBALDO Other aftercare (3 sources) Other storyboard artist (current) drug therapy; Translations: [FPC current use of antiarrhythmic drug] Onset: 09-04-2023 [...] not donate blood yet and follow hemoglobin Other screening for suspected conditions (not mental disorders or infectious disease) (20 sources) Other specified abnormal findings of blood chemistry; Translations: [Thyroid hormone tests abnormal] Onset: 12-10-2024 05-21-2018 Episodic Comment on above: ? recovering from th yroidits danial with the history of palp signs and symptoms etc. ? early hashimotos ? recovering from th yroidits danial with the history of palp signs and symptoms etc. ? early hashimotos, was out of afib now back in, was cardioverted x 1 now anticoagulated and on flexanide ? recovering from th yroidits danial with the history of palp signs and symptoms etc. ? early hashimotos, was out of afib now back in, was cardioverted x 1 now anticoagulated and on flexanide, holding Tues dose, repeating Dec 15 Creat 1.38, encourag ed water increase avoid nsaids Pneumonia (except that caused by tuberculosis or sexually transmitted disease) (20 sources) Pneumonia (except that caused by tuberculosis or sexually transmitted disease) Resolved: 01-01-2009 01-02-2018 Residual codes; unclassified (10 sources) History of cardioversion; Translations: [Personal history of other medical treatment] Onset: 03-02-2018 08-08-2018 Episodic Residual codes; unclassified (10 sources) History of cardiac catheterization; Translations: [Other specified postprocedural states] Onset: 02-02-2018 03-02-2018 Episodic Comment on above: Nonobstructive coron danny arteries (<30% stenosis in LAD, CX, and RCA: left main normal) per [facility] 02/02/[address] Chino @ [facility] Unclassified (20 sources) Sinusitis, bacterial Unclassified [...] Test Name Value Interpretation Reference Range Facility Cardiology Visit Reporton Cardiology Visit Report [facility] [address] [place] [address]. [address] [place] [address] OFFICE VISIT Date of Service: 04/09/25 MR#: [id number] Acct: [id number] Name: NIYA MCKEON Rep #: [id number] : 1955 Provider: Dr. Peyton Rucker MD Age/Sex: 69/M [place] [facility] Status: Signed HPI HPI History of Present Illness Details: Niya has history of paroxysmal atrial fibrillation and hypertension. He is here for follow-up visit. He lost a grandchild earlier this year and had been having difficulty with coping with the loss. According to him, he has since been adjusting slowly. Heart ojeda, he denies any complaints. No chest pains. No shortness of breath. No palpitations. No orthopnea or PND. No ankle edema. Holter monitoring done in February of this year showed sinus rhythm. He continues on flecainide. Intake Vital Signs 11/06/24 08:26 04/09/25 10:20 Height 6 ft 1.5 in 6 ft 1.5 in Weight: 268 lb BMI 34.9 BP 112/74 Blood Pressure Location Lt brachial Position Sitting Respiration 16 Pulse 67 Pulse Source Monitor Intake Visit Reasons: 6 M FU Compensation Supervisor Required: No Accompanied by: Is patient in pain?: No Allergies atorvastatin Adverse Reaction (Severe, Verified 04/09/25 10:21) elevated liver enzymes ibuprofen Adverse Reaction (Intermediate, Verified 04/09/25 10:21) itchiness Medications ???Medication ???Instructions ???Recorded ???Confirmed ???Type omeprazole 20 mg capsule,delayed 20 mg PO DAILY 02/01/18 04/09/25 H istory release cholecalciferol (vitamin D3) 50 50 mcg PO DAILY 07/30/21 04/09/25 History mcg (2,000 unit) tablet levothyroxine 125 mcg capsule See Rx Instructions PO DAILY 03/1604/09/25 History rivaroxaban 20 mg tablet (Xarelto) 20 mg PO DAILY #90 tabs 01/04/24 04/09/25 Rx flecainide 100 mg tablet 100 mg PO Q12H #180 tabs 02/04/25 04/09/25 Rx losartan 25 mg tablet 25 mg PO DAILY #90 tabs 02/04/25 1 Rx metoprolol succinate 25 mg 25 mg PO DAILY #90 tabs 02/20/25 1 Rx tablet,extended release 24 hr Ejection fraction %: 65 Have you fallen in the past year?: No PFSH Medical History Paroxysmal atrial fibrillation Hypertension Obesity (BMI 35.0-39.9 without comorbidity) Acute bronchitis, unspecified Cough Preoperative cardiovascular examination Thyroid disease Snoring Daytime somnolence Nonischemic cardiomyopathy Atherosclerotic heart disease of [place] coronary artery without angina pectoris Chest pain Atrial enlargement, right GERD (gastroesophageal reflux disease) Atrial fibrillation Surgical History Total knee replacement status History of cardioversion (03/02/18) History of left heart catheterization (02/02/18) H/O lateral meniscus repair of left knee ( 2004) Family History Mother Hypertension Cancer lung and ovarian Father Cancer Prostate Social History Smoking Status: Never smoker alcohol intake: never substance use type: does not use caffeine: Yes Type: coffee ROS Const Const: Negative for fatigue or weakness Eyes Eyes: Negative for change in vision ENT ENT: Negative for dizziness or balance problems Cardio Chest Pain: No Palpitations: Yes (none for last 2 weeks, some prior to that) Edema: None Resp Respiratory: Negative for SOB with activity, SOB at rest or SOB orthopnea SOB lying down GI GI: Negative nausea or heartburn Musc Musc: Negative for balance problems Neuro Neuro: Negative for dizziness, lightheadedness, near syncope, syncope or weakness Endo Endo: Negative for fatigue [...] Edema: None: Bilateral Supplemental Info Supplemental Information Labs: LDL Cholesterol, (0-130) 101 mg/dL HDL Cholesterol, (40-) 41 mg/dL Cholesterol, (<=200) 160 mg/dL Triglycerides, (-199) 58 mg/dL Diagnostics: Electrocardiogram Echocardiogram Stress Echocardiogram Cardiac Catheterization Chest X-Ray Venous Doppler Study Pulmonary: Pulmonary Function Test Past Visits: Cardiology Visit Today Assessment and Plan Assessment and Plan (1) Paroxysmal atrial fibrillation: Status: Chronic Plan: Patient (more content not included)... Normal [facility] TSH DL <= 0.005 mIU/L QnOrde red By: Roman Nichols on 04-02-2025 TSH Qn 3.460 uIU/mL 0.300-4.20 0 [facility] Thyroid Stim Hormone (TSH)on 04-02-2025 TSH 3.460 uIU/mL Normal 0.300-4.20 0 [facility] Comment on above: Performed By: #### L [id number] ####[facility] [id number] [place], [address] Absolute lymphocyte countOrd ered By: Hodan Lockett on 01-15-2025 Lymphocytes Auto (Unsp spec) [#/Vol] 1.42 10*3/uL 0.83-4.51 [facility] Absolute neutrophil countOrd ered By: Hodan Lockett on 01-15-2025 Neutrophils (Bld) [#/Vol] 6.2 10*3/uL 2.0-7.7 [facility] Anion gap in Serum or Plasma Ordered By: Hodan Lockett on 01-15-2025 Anion gap [Moles/Vol] 11 mmol/L 5-15 [facility] Automated lymphocyte count a s percentage of total leukocytesOrdered By: Hodan Lockett on 01-15-2025 Lymphocytes/100 WBC Auto (Unsp spec) 16.8 % Low 19-41 [facility] BUN/creatinine ratioOrdered By: Hodan Lockett on 01-15-2025 Urea nitrogen/Creatinine [Mass ratio] 14.8 mg/mg 10-20 [facility] Basophil percentageOrdered B y: Hodan Lockett on 01-15-2025 Basophils/100 WBC (Bld) 0.6 % 0-1 [facility] Bilirubin, totalOrdered By: Hodan Lockett on 01-15-2025 Bilirubin [Mass/Vol] 1.12 mg/dL 0.00-1.30 [facility] CBC W/Diff, Automatedon Absolute Lymph 1.42 X10 3/uL Normal 0.83-4.51 [facility] Comment on above: Performed By: #### L [id number], [id number], L500.4050, L100.0100 #### [facility] [address] [place], [address] Absolute Neut 6.2 X10 3/uL Normal 2.0-7.7 [facility] Comment on above: Performed By: #### L [id number], [id number], L500.4050, L100.0100 #### [facility] [address] [place], [address] Basophils/100 WBC (Bld) 0.6 % Normal 0-1 [facility] Comment on above: Performed By: #### L [id number], [id number], L500.4050, L100.0100 #### [facility] [address] [place], [address] Eosinophils/100 WBC (Bld) 2.3 % Normal 0-5 [facility] Comment on above: Performed By: #### L [id number], [id number], L500.4050, L100.0100 #### [facility] [address] [place], [address] Erythrocyte distribution width (RBC) [Ratio] 13.6 % Normal 11.6-14.6 [facility] Comment on above: Performed By: #### L [id number], [id number], L500.4050, L100.0100 #### [facility] [address] [place], [address] Hematocrit (Bld) [Volume fraction] 44.0 % Normal 40-54 [facility] Comment on above: Performed By: #### L [id number], L501.9520, L500.4050, L100.0100 #### [facility] [address] [place], [address] Hemoglobin (Bld) [Mass/Vol] 14.9 g/dL Normal 13.0-16.5 [facility] Comment on above: Performed By: #### L 501.5200, L501.9520, L500.4050, L100.0100 #### [facility] [address] [place], [address] IG% 0.400 Normal 0.0-0.9 [facility] Comment on above: Result Comment: IG% - Immature Granulocytes (promyelocytes, myelocytes and metamyelocytes) > 1% indicates that a LEFT SHIFT is Present. Performed By: #### L 501.5200, L501.9520, L500.4050, L100.0100 #### [facility] [address] [place], [address] Lymphocytes/100 WBC (Bld) 16.8 % Low 19-41 [facility] Comment on above: Performed By: #### L 501.5200, L501.9520, L500.4050, L100.0100 #### [facility] [address] [place], [address] MCH (RBC) [Entitic mass] 29.4 pg Normal 27.0-32.0 [facility] Comment on above: Performed By: #### L 501.5200, L501.9520, L500.4050, L100.0100 #### [facility] [address] [place], [address] MCHC (RBC) [Mass/Vol] 33.9 g/dL Normal 32-36 [facility] Comment on above: Performed By: #### L 501.5200, L501.9520, L500.4050, L100.0100 #### [facility] [address] [place], [address] MCV (RBC) [Entitic vol] 86.8 fL Normal 80-94 [facility] Comment on above: Performed By: #### L 501.5200, L501.9520, L500.4050, L100.0100 #### [facility] [address] [place], [address] Monocytes/100 WBC (Bld) 6.6 % Normal 0-10 [facility] Comment on above: Performed By: #### L 501.5200, L501.9520, L500.4050, L100.0100 #### [facility] [address] [place], [address] Neutrophils/100 WBC (Bld) 73.3 % High 47-70 [facility] Comment on above: Performed By: #### L 501.5200, L501.9520, L500.4050, L100.0100 #### [facility] [address] [place], [address] Nucleated RBC (Bld) [#/Vol] 0 10*3/uL Normal 0-5 [facility] Comment on above: Performed By: #### L 501.5200, L501.9520, L500.4050, L100.0100 #### [facility] [address] [place], [address] Platelet mean volume (Bld) [Entitic vol] 9.7 fL Normal 6.2-12.0 [facility] Comment on above: Performed By: #### L 501.5200, L501.9520, L500.4050, L100.0100 #### [facility] [address] [place], [address] Platelets (Bld) [#/Vol] 176 10*3/uL Normal 150-450 [facility] Comment on above: Performed By: #### L 501.5200, L501.9520, L500.4050, L100.0100 #### [facility] [address] [place], [address] RBC (Bld) [#/Vol] 5.07 10*6/uL Normal 4.6-6.[address] [facility] Comment on above: Performed By: #### L 501.5200, L501.9520, L500.4050, L100.0100 #### [facility] [address] [place], [address] RDW SD 42.5 fl Normal 35.1-43.9 [facility] Comment on above: Performed By: #### L 501.5200, L501.9520, L500.4050, L100.0100 #### [facility] [address] [place], [address] WBC (Bld) [#/Vol] 8.4 10*3/uL Normal 4.4-11.0 [facility] Comment on above: Performed By: #### L 501.5200, L501.9520, L500.4050, L100.0100 #### [facility] [address] [place], [address] Carbon dioxide, total [Moles /volume] in Central venous bloodOrdered By: Hodan Lockett on 01-15-2025 CO2 [Moles/Vol] 19.4 mmol/L Low 21.0-32.0 [facility] Chloride assayOrdered By: Cayetano Lockett on 01-15-2025 Chloride [Moles/Vol] 108 mmol/L 98-108 [facility] Comprehensive Metabolic Prof ilon 01-15-2025 Albumin [Mass/Vol] 3.8 g/dL Normal 3.4-4.8 [facility] Comment on above: Performed By: #### L 501.5200, L501.9520, L500.4050, L100.0100 ####[facility] [address] [place], [address] Albumin/Globulin [Mass ratio] 1.4 {ratio} Normal 0.9-2.4 [facility] Comment on above: Performed By: #### L 501.5200, L501.9520, L500.4050, L100.0100 ####[facility] [address] [place], [address] ALK PHOS 87 U/L Normal 40-129 [facility] Comment on above: Performed By: #### L 501.5200, L501.9520, L500.4050, L100.0100 ####[facility] [address] [place], [address] ALT [Catalytic activity/Vol] 32 U/L Normal <=46 [facility] Comment on above: Performed By: #### L 501.5200, L501.9520, L500.4050, L100.0100 ####[facility] [address] [place], [address] AST [Catalytic activity/Vol] 34 U/L Normal <=37 [facility] Comment on above: Performed By: #### L 501.5200, L501.9520, L500.4050, L100.0100 ####[facility] [address] [place], [address] Bilirubin [Mass/Vol] 1.12 mg/dL Normal 0.00-1.30 [facility] Comment on above: Performed By: #### L 501.5200, L501.9520, L500.4050, L100.0100 ####[facility] [address] [place], [address] BUN/CRE 14.8 RATIO Normal 10-20 [facility] Comment on above: Performed By: #### L 501.5200, L501.9520, L500.4050, L100.0100 ####[facility] [address] [place], [address] Calcium [Mass/Vol] 9.4 mg/dL Normal 7.6-11.0 [facility] Comment on above: Performed By: #### L 501.5200, L501.9520, L500.4050, L100.0100 ####[facility] [address] [place], [address] Chloride [Moles/Vol] 108 mmol/L Normal 98-108 [facility] Comment on above: Performed By: #### L 501.5200, L501.9520, L500.4050, L100.0100 ####[facility] [address] [place], [address] CO2 [Moles/Vol] 19.4 mmol/L Low 21.0-32.0 [facility] Comment on above: Performed By: #### L 501.5200, L501.9520, L500.4050, L100.0100 ####[facility] [address] [place], [address] Creatinine [Mass/Vol] 1.33 mg/dL High 0.70-1.20 [facility] Comment on above: Performed By: #### L 501.5200, L501.9520, L500.4050, L100.0100 ####[facility] [address] [place], [address] GAP 11 Normal 5-15 [facility] Comment on above: Performed By: #### L 501.5200, L501.9520, L500.4050, L100.0100 ####[facility] [address] [place], [address] GFR/1.73 sq M.predicted among non-blacks MDRD (S/P/Bld) [Vol rate/Area] 59 mL/min/{1.73_m2} Low >60 [facility] Comment on above: Result Comment: mL/m in/1.73m2 CKD-EPI Creatinine Equation (2020) Performed By: #### L 501.5200, L501.9520, L500.4050, L100.0100 ####[facility] [address] [place], [address] Globulin (S) [Mass/Vol] 2.7 g/dL Normal 2.2-4.2 [facility] Comment on above: Performed By: #### L 501.5200, L501.9520, L500.4050, L100.0100 ####[facility] [address] [place], [address] Glucose [Mass/Vol] 107 mg/dL High 70-99 [facility] Comment on above: Performed By: #### L 501.5200, L501.9520, L500.4050, L100.0100 ####[facility] [address] [place], [address] Potassium [Moles/Vol] 3.7 mmol/L Normal 3.3-5.1 [facility] Comment on above: Performed By: #### L 501.5200, L501.9520, L500.4050, L100.0100 ####[facility] [address] [place], [address] Sodium [Moles/Vol] 138 mmol/L Normal 133-145 [facility] Comment on above: Performed By: #### L 501.5200, L501.9520, L500.4050, L100.0100 ####[facility] [address] [place], [address] T PROT 6.4 g/dL Normal 5.9-8.4 [facility] Comment on above: Performed By: #### L 501.5200, L501.9520, L500.4050, L100.0100 ####[facility] [address] [place], [address] Urea nitrogen [Mass/Vol] 20 mg/dL High 4-19 [facility] Comment on above: Performed By: #### L 501.5200, L501.9520, L500.4050, L100.0100 ####[facility] [address] [place], [address] Eosinophil percentageOrdered By: Hodan Lockett on 01-15-2025 Eosinophils/100 WBC (Bld) 2.3 % 0-5 [facility] Erythrocyte distribution wid th ratioOrdered By: Hodan Lockett on 01-15-2025 Erythrocyte distribution width (RBC) [Ratio] 13.6 % 11.6-14.6 [facility] Erythrocyte distribution wid th standard deviationOrdered By: Hodan Lockett on 01-15-2025 Erythrocyte distribution width (RBC) [Ratio] 42.5 fl 35.1-43.9 [facility] Glomerular filtration rate ( GFR) estimation/1.73 sq m using serum, plasma, or whole bOrdered By: Hodan Lockett on 01-15-2025 GFR/1.73 sq M.predicted among non-blacks MDRD (S/P/Bld) [Vol rate/Area] 59 mL/min/{1.73_m2} Low >60 [facility] Comment on above: mL/min/1.73m2 CKD-EP I Creatinine Equation (2020) Hematocrit Auto (Bld) [Volum e fraction]Ordered By: Hodan Lockett on 01-15-2025 Hematocrit (Bld) [Volume fraction] 44.0 % 40-54 [facility] Hemoglobin measurementOrdere d By: Hodan Lockett on 01-15-2025 Hemoglobin (Bld) [Mass/Vol] 14.9 g/dL 13.0-16.5 [facility] Immature granulocytes/100 WB C Auto (Bld)Ordered By: Hodan Lockett on 01-15-2025 Immature granulocytes/100 WBC (Bld) 0.400 % 0.0-0.9 [facility] Comment on above: IG% - Immature Granu locytes (promyelocytes, myelocytes and metamyelocytes) > 1% indicates that a LEFT SHIFT is Present. Laboratory - Chemistry and C hemistry - challengeOrdered By: Hodan Lockett on 01-15-2025 AST [Catalytic activity/Vol] 34 U/L <38 [facility] MCV (mean corpuscular volume ) determinationOrdered By: Hodan Lockett on 01-15-2025 MCV (RBC) [Entitic vol] 86.8 fL 80-94 [facility] Magnesiumon 01-15-2025 Magnesium [Mass/Vol] 2.0 mg/dL Normal 1.5-2.2 [facility] Comment on above: Performed By: #### L 501.5200, L501.9520, L500.4050, L100.0100 ####[facility] [address] [place], [address] Magnesium measurement (mass/ volume)Ordered By: Hodan Lockett on 01-15-2025 Magnesium (Unsp spec) [Mass/Vol] 2.0 mg/dL 1.5-2.2 [facility] Mean corpuscular hemoglobin (MCH) determinationOrdered By: Hodan Lockett on 01-15-2025 MCH (RBC) [Entitic mass] 29.4 pg 27.0-32.0 [facility] Mean corpuscular hemoglobin concentration (MCHC) determinationOrdered By: Hodan Lockett on 01-15-2025 MCHC (RBC) [Mass/Vol] 33.9 g/dL 32-36 [facility] Mean platelet volume determi nationOrdered By: Hodan Lockett on 01-15-2025 Platelet mean volume (Bld) [Entitic vol] 9.7 fL 6.2-12.0 [facility] Monocyte percentageOrdered B y: Hodan Lockett on 01-15-2025 Monocytes/100 WBC (Bld) 6.6 % 0-10 [facility] Neutrophil percentageOrdered By: Hodan Lockett on 01-15-2025 Neutrophils/100 WBC (Bld) 73.3 % High 47-70 [facility] Nucleated red blood cell per centageOrdered By: Hodan Lockett on 01-15-2025 Nucleated RBC/100 WBC (Bld) [Ratio] 0 % 0-5 [facility] Platelet countOrdered By: Cayetano Lockett on 01-15-2025 Platelets (Bld) [#/Vol] 176 10*3/uL 150-450 [facility] Potassium measurement (mass/ volume)Ordered By: Hodan Lockett on 01-15-2025 Potassium (Unsp spec) [Mass/Vol] 3.7 mmol/L 3.3-5.1 [facility] RBC Auto (Bld) [#/Vol]Ordere d By: Hodan Lockett on 01-15-2025 RBC (Bld) [#/Vol] 5.07 10*6/uL 4.6-6.[address] [facility] Serum creatinine measurement (mass/volume)Ordered By: Hodan Lockett on 01-15-2025 Creatinine [Mass/Vol] 1.33 mg/dL High 0.70-1.20 [facility] Serum globulin measurementOr dered By: Hodan Lockett on 01-15-2025 Globulin (S) [Mass/Vol] 2.7 g/dL 2.2-4.2 [facility] Serum glucose measurement (m ass/volume)Ordered By: Hodan Lockett on 01-15-2025 Glucose [Mass/Vol] 107 mg/dL High 70-99 [facility] Serum or plasma alanine terry otransferase (ALT) measurementOrdered By: Hodan Lockett on 01-15-2025 ALT [Catalytic activity/Vol] 32 U/L <47 [facility] Serum or plasma albumin erich urement (mass/volume)Ordered By: Hodan Lockett on 01-15-2025 Albumin [Mass/Vol] 3.8 g/dL 3.4-4.8 [facility] Serum or plasma albumin/glob ulin mass ratioOrdered By: Hodan Lockett on 01-15-2025 Albumin/Globulin [Mass ratio] 1.4 {ratio} 0.9-2.4 [facility] Serum or plasma alkaline moriah sphatase measurementOrdered By: Hodan Lockett on 01-15-2025 ALP [Catalytic activity/Vol] 87 U/L 40-129 [facility] Serum or plasma calcium erich urement (mass/volume)Ordered By: Hodan Lockett on 01-15-2025 Calcium [Mass/Vol] 9.4 mg/dL 7.6-11.0 [facility] Serum or plasma urea nitroge n measurement (mass/volume)Ordered By: Hodan Lockett on 01-15-2025 Urea nitrogen [Mass/Vol] 20 mg/dL High 4-19 [facility] Sodium levelOrdered By: Niharika Lockett on 01-15-2025 Sodium [Moles/Vol] 138 mmol/L 133-145 [facility] TSH DL <= 0.005 mIU/L QnOrde red By: Hodan Lockett on 01-15-2025 TSH Qn 4.900 uIU/mL High 0.300-4.20 0 [facility] Thyroid Stim Hormone (TSH)on 01-15-2025 TSH 4.900 uIU/mL High 0.300-4.20 0 [facility] Comment on above: Performed By: #### L 501.5200, L501.9591, L500.4050, L100.0100 ####[facility] [address] [place], [place], [id number] Total proteinOrdered By: Brendon Lockett on 01-15-2025 Protein [Mass/Vol] 6.4 g/dL 5.9-8.4 [facility] White blood cell (WBC) count Ordered By: Hodan Lockett on 01-15-2025 WBC (Bld) [#/Vol] 8.4 10*3/uL 4.4-11.0 [facility] Anion gap in Serum or Plasma Ordered By: Roman Nichols on 12-04-2024 Anion gap [Moles/Vol] 10 mmol/L 5- [facility] BUN/creatinine ratioOrdered By: Roman Nichols on 12-04-2024 Urea nitrogen/Creatinine [Mass ratio] 13.1 mg/mg 10-20 [facility] Bilirubin, totalOrdered By: Roman Nichols on 12-04-2024 Bilirubin [Mass/Vol] 0.98 mg/dL 0.00-1.30 [facility] Calculated very low density lipoprotein (VLDL) cholesterol measurementOrdered By: Roman Nichols on 12-04-2024 Calculated very low density lipoprotein (VLDL) cholesterol measurement 12 mg/dL -40 [facility] Carbon dioxide, total [Moles /volume] in Central venous bloodOrdered By: Roman Nichols on 12-04-2024 CO2 [Moles/Vol] 23.7 mmol/L 21.0-32.0 [facility] Chloride assayOrdered By: Alana Nichols on 12-04-2024 Chloride [Moles/Vol] 108 mmol/L 98-108 [facility] Comprehensive Metabolic Prof ilon 12-04-2024 Albumin [Mass/Vol] 4.1 g/dL Normal 3.4-4.8 [facility] Comment on above: Performed By: #### L 501.9910, L500.4100, L500.4050 #### [facility] [address] [place], [place], [address] Albumin/Globulin [Mass ratio] 1.4 {ratio} Normal 0.9-2.4 [facility] Comment on above: Performed By: #### L 501.9910, L500.4100, L500.4050 #### [facility] [address] [place], [address] ALK PHOS 86 U/L Normal 40-129 [facility] Comment on above: Performed By: #### L 501.9910, L500.4100, L500.4050 #### [facility] [address] [place], [address] ALT [Catalytic activity/Vol] 39 U/L Normal <=46 [facility] Comment on above: Performed By: #### L 501.9910, L500.4100, L500.4050 #### [facility] [address] [place], [address] AST [Catalytic activity/Vol] 58 U/L High <=37 [facility] Comment on above: Performed By: #### L 501.9910, L500.4100, L500.4050 #### [facility] [address] [place], [address] Bilirubin [Mass/Vol] 0.98 mg/dL Normal 0.00-1.30 [facility] Comment on above: Performed By: #### L 501.9910, L500.4100, L500.4050 #### [facility] [address] [place], [address] BUN/CRE 13.1 RATIO Normal 10-20 [facility] Comment on above: Performed By: #### L 501.9910, L500.4100, L500.4050 #### [facility] [address] [place], [address] Calcium [Mass/Vol] 9.8 mg/dL Normal 7.6-11.0 [facility] Comment on above: Performed By: #### L 501.9910, L500.4100, L500.4050 #### [facility] [address] [place], [address] Chloride [Moles/Vol] 108 mmol/L Normal 98-108 [facility] Comment on above: Performed By: #### L 501.9910, L500.4100, L500.4050 #### [facility] [address] [place], [address] CO2 [Moles/Vol] 23.7 mmol/L Normal 21.0-32.0 [facility] Comment on above: Performed By: #### L 501.9910, L500.4100, L500.4050 #### [facility] [address] [place], [address] Creatinine [Mass/Vol] 1.34 mg/dL High 0.70-1.20 [facility] Comment on above: Performed By: #### L 501.9910, L500.4100, L500.4050 #### [facility] [address] [place], [address] GAP 10 Normal 5-15 [facility] Comment on above: Performed By: #### L 501.9910, L500.4100, L500.4050 #### [facility] [address] [place], [address] GFR/1.73 sq M.predicted among non-blacks MDRD (S/P/Bld) [Vol rate/Area] 58 mL/min/{1.73_m2} Low >60 [facility] Comment on above: Result Comment: mL/m in/1.73m2 CKD-EPI Creatinine Equation (2020) Performed By: #### L 501.9910, L500.4100, L500.4050 #### [facility] [address] [place], [address] Globulin (S) [Mass/Vol] 3.0 g/dL Normal 2.2-4.2 [facility] Comment on above: Performed By: #### L 501.9910, L500.4100, L500.4050 #### [facility] [address] [place], [address] Glucose [Mass/Vol] 93 mg/dL Normal 70-99 [facility] Comment on above: Performed By: #### L 501.9910, L500.4100, L500.4050 #### [facility] [address] [place], [address] Potassium [Moles/Vol] 4.4 mmol/L Normal 3.3-5.1 [facility] Comment on above: Performed By: #### L 501.9910, L500.4100, L500.4050 #### [facility] [address] [place], [address] Sodium [Moles/Vol] 141 mmol/L Normal 133-145 [facility] Comment on above: Performed By: #### L 501.9910, L500.4100, L500.4050 #### [facility] [address] [place], [address] T PROT 7.1 g/dL Normal 5.9-8.4 [facility] Comment on above: Performed By: #### L 501.9910, L500.4100, L500.4050 #### [facility] [address] [place], [address] Urea nitrogen [Mass/Vol] 18 mg/dL Normal 4-19 [facility] Comment on above: Performed By: #### L 501.9910, L500.4100, L500.4050 #### [facility] [address] [place], [address] Echo Completeon 12-04-2024 Echo Complete [facility] [address] [place] [address] Echo Complete 12/04/24 0759 MR#: [id number] Acct: [id number] Name: NIYA MCKEON Rep #: [id number] : 1955 69 From: Peyton Rucker MD Attending Dr: Dr. Peyton Rucker MD Status: REG CLI Ordering Dr: Peyton Rucker MD Date: 12/04/24 Location: [facility] Sex: M C Admitted: Reason For [...] 12/04/24 1142 Date Peyton Rucker MD CC: LOAN ADVISER-C Roman Nichols; Dr. Peyton Rucker MD Date Dictated: 12/04/24 0759 Date Transcribed: 12/04/24 114 Scientific Laboratory Supervisor: [facility] Echocardiogram study reportO rdered By: Peyton Rucker on 12-04-2024 Study report [facility] [place] [address] Echo Complete 12/04/24 0759 MR#: [id number] Acct: [id number] Name: NIYA MCKEON Rep #:[id number] : 1955 69 From: Peyton Rucker MD Attending Dr: Dr. Peyton Rucker MD Status: REG I Ordering Dr: Peyton Rucker MD Date: Location: [facility] Sex: M C Admitted: Reason For [...] RVT, RDCS and Student 12/04/24 1142 Date _ Peyton Rucker MD CC: LOAN ADVISER-C Roman Nichols; Dr. Peyton Rucker MD ~ Date Dictated: 12/04/24 0759 Date Transcribed: 12/04/24 1142 Scientific Laboratory Supervisor: Signed [facility] Work Phone: Glomerular filtration rate ( GFR) estimation/1.73 sq m using serum, plasma, or whole bOrdered By: Roman Nichols on 12-04-2024 GFR/1.73 sq M.predicted among non-blacks MDRD (S/P/Bld) [Vol rate/Area] 58 mL/min/{1.73_m2} Low >60 [facility] Comment on above: mL/min/1.73m2 CKD-EP I Creatinine Equation (2020) LDL calc ser/plasOrdered By: Roman Nichols on 12-04-2024 Cholesterol in LDL [Mass/Vol] 107 mg/dL [facility] Comment on above: Vuacbrvqiv=573-774 m g/dL & Higher Gxmt=126 mg/dL or greater Laboratory - Chemistry and C hemistry - challengeOrdered By: Roman Nichols on 12-04-2024 AST [Catalytic activity/Vol] 58 U/L High <38 [facility] Lipid Profileon 12-04-2024 CHOL:HDL 3.88 Normal [facility] Comment on above: Performed By: #### L 501.9910, L500.4100, L500.4050 #### [facility] [address] [place], [place], [address] Cholesterol [Mass/Vol] 160 mg/dL Normal <=200 [facility] Comment on above: Result Comment: Chol esterol level, Desirable <200 mg/dL Borderline high cholesterol 200-239 mg/dL High cholesterol >=240 mg/dL Recommendations of the NCEP Adult Treatment Panel for the following risk-cutoff thresholds for the [place] population. Performed By: #### L 501.9910, L500.4100, L500.4050 #### [facility] [address] [place], [address] Cholesterol in HDL [Mass/Vol] 41 mg/dL Normal [facility] Comment on above: Result Comment: [place] onal Cholesterol Education Program (NCEP) guidelines: <40 mg/dL: Low HDL-cholesterol (major risk factor for CHD) >= 60 mg/dL: High HDL-cholesterol (negative risk factor for CHD) HDL-cholesterol is affected by a number of factors, e.g. smoking, exercise, hormones, sex and age. Performed By: #### L 501.9910, L500.4100, L500.4050 #### [facility] [address] [place], [address] Cholesterol in LDL [Mass/Vol] 107 mg/dL Normal [facility] Comment on above: Result Comment: Bord mmtfmk=877-826 mg/dL Higher Nhuk=720 mg/dL or greater Performed By: #### L 501.9910, L500.4100, L500.4050 #### [facility] [address] [place], [address] Cholesterol in VLDL [Mass/Vol] 12 mg/dL Normal 5-40 [facility] Comment on above: Performed By: #### L 501.9910, L500.4100, L500.4050 #### [facility] [address] [place], [address] Triglyceride [Mass/Vol] 58 mg/dL Normal [facility] Comment on above: Result Comment: The drugs N-Acetylcysteine and Metamizole may falsely depress this assay. Normal range: <150 mg/dL Borderline High: 150-199 mg/dL High: 200-499 mg/dL Very High: >500 mg/dL Performed By: #### L 501.9910, L500.4100, L500.4050 #### [facility] [address] [place], [address] PSA,Total - Annual Screenon 12-04-2024 PSA,TOT SCREEN 1.17 ng/mL Normal 0.02-4.00 [facility] Comment on above: Result Comment: This test [...] By: #### L 501.9910, L500.4100, L500.4050 #### [facility] [place], [address] Potassium measurement (mass/ volume)Ordered By: Roman Nichols on 12-04-2024 Potassium (Unsp spec) [Mass/Vol] 4.4 mmol/L 3.3-5.1 [facility] Screening total cholesterol/ high density lipoprotein (HDL) cholesterol ratioOrdered By: Roman Nichols on 12-04-2024 Cholesterol.total/Chol esterol in HDL [Mass ratio] 3.88 {ratio} [facility] Serum creatinine measurement (mass/volume)Ordered By: Roman Nichols on 12-04-2024 Creatinine [Mass/Vol] 1.34 mg/dL High 0.70-1.20 [facility] Serum globulin measurementOr dered By: Roman Nichols on 12-04-2024 Globulin (S) [Mass/Vol] 3.0 g/dL 2.2-4.2 [facility] Serum glucose measurement (m ass/volume)Ordered By: Roman Nichols on 12-04-2024 Glucose [Mass/Vol] 93 mg/dL 70-99 [facility] Serum or plasma alanine terry otransferase (ALT) measurementOrdered By: Roman Nichols on 12-04-2024 ALT [Catalytic activity/Vol] 39 U/L <47 [facility] Serum or plasma albumin erich urement (mass/volume)Ordered By: Roman Nichols on 12-04-2024 Albumin [Mass/Vol] 4.1 g/dL 3.4-4.8 [facility] Serum or plasma albumin/glob ulin mass ratioOrdered By: Roman Nichols on 12-04-2024 Albumin/Globulin [Mass ratio] 1.4 {ratio} 0.9-2.4 [facility] Serum or plasma alkaline moriah sphatase measurementOrdered By: Roman Nichols on 12-04-2024 ALP [Catalytic activity/Vol] 86 U/L 40-129 [facility] Serum or plasma calcium erich urement (mass/volume)Ordered By: Roman Nichols on 12-04-2024 Calcium [Mass/Vol] 9.8 mg/dL 7.6-11.0 [facility] Serum or plasma cholesterol in HDL measurement (mass/volume)Ordered By: Roman Nichols on 12-04-2024 Cholesterol in HDL [Mass/Vol] 41 mg/dL >40 [facility] Comment on above: National Cholesterol Education Program (NCEP) guidelines:<40 mg/dL: Low HDL-cholesterol (major risk factor for CHD)>= 60 mg/dL: High HDL-cholesterol (negative risk factor for CHD)HDL-cholesterol is affected by a number of factors, e.g. smoking, exercise, hormones, sex and age. Serum or plasma cholesterol measurement (mass/volume)Ordered By: Roman Nichols on 12-04-2024 Cholesterol [Mass/Vol] 160 mg/dL <201 [facility] Comment on above: Cholesterol level, D esirable <200 mg/dLBorderline high cholesterol 200-239 mg/dLHigh cholesterol >=240 mg/dLRecommendations of the NCEP Adult Treatment Panel for the following risk-cutoff thresholds for the [place] population. Serum or plasma urea nitroge n measurement (mass/volume)Ordered By: Roman Nichols on 12-04-2024 Urea nitrogen [Mass/Vol] 18 mg/dL 4-19 [facility] Sodium levelOrdered By: Rima Nichols on 12-04-2024 Sodium [Moles/Vol] 141 mmol/L 133-145 [facility] Total proteinOrdered By: Stephen Nichols on 12-04-2024 Protein [Mass/Vol] 7.1 g/dL 5.9-8.4 [facility] Triglycerides measurementOrd ered By: Roman Nichols on 12-04-2024 Triglyceride [Mass/Vol] 58 mg/dL <199 [facility] Comment on above: The drugs N-Acetylcy steine and Metamizole may falsely depress this assay. Normal range: <150 mg/dLBorderline High: 150-199 mg/dLHigh: 200-499 mg/dLVery High: >500 mg/dL Absolute lymphocyte countOrd ered By: Robi Bass on 11-06-2024 Lymphocytes Auto (Unsp spec) [#/Vol] 2.26 10*3/uL 0.83-4.51 [facility] Absolute neutrophil countOrd ered By: Robi Bass on 11-06-2024 Neutrophils (Bld) [#/Vol] 6.2 10*3/uL 2.0-7.7 [facility] Anion gap in Serum or Plasma Ordered By: Robi Bass on 11-06-2024 Anion gap [Moles/Vol] 11 mmol/L 5- [facility] Automated lymphocyte count a s percentage of total leukocytesOrdered By: Robi Bass on 11-06-2024 Lymphocytes/100 WBC Auto (Unsp spec) 23.7 % 19- [facility] BUN/creatinine ratioOrdered By: Robimarnie Bass on 11-06-2024 Urea nitrogen/Creatinine [Mass ratio] 14.4 mg/mg 10-20 [facility] Basophil percentageOrdered B y: Robimarnie Bass on 11-06-2024 Basophils/100 WBC (Bld) 0.4 % 0-1 [facility] Bilirubin, totalOrdered By: Robimarnie Bass on 11-06-2024 Bilirubin [Mass/Vol] 1.16 mg/dL 0.00-1.30 [facility] CBC W/Diff, Automatedon 10-10 Absolute Lymph 2.26 X10 3/uL Normal 0.83-4.51 [facility] Comment on above: Performed By: #### L 100.0100, L500.4050, L501.9520 #### [facility] [address] [place], [place], [id number] Absolute Neut 6.2 X10 3/uL Normal 2.0-7.7 [facility] Comment on above: Performed By: #### L 100.0100, L500.4050, L501.9520 #### [facility] [address] [place], [address] Basophils/100 WBC (Bld) 0.4 % Normal 0-1 [facility] Comment on above: Performed By: #### L 100.0100, L500.4050, L501.9520 #### [facility] [address] [place], [address] Eosinophils/100 WBC (Bld) 3.8 % Normal 0-5 [facility] Comment on above: Performed By: #### L 100.0100, L500.4050, L501.9520 #### [facility] [address] [place], [address] Erythrocyte distribution width (RBC) [Ratio] 13.6 % Normal 11.6-14.6 [facility] Comment on above: Performed By: #### L 100.0100, L500.4050, L501.9520 #### [facility] [address] [place], [address] Hematocrit (Bld) [Volume fraction] 46.4 % Normal 40-54 [facility] Comment on above: Performed By: #### L 100.0100, L500.4050, L501.9520 #### [facility] [address] [place], [address] Hemoglobin (Bld) [Mass/Vol] 16.0 g/dL Normal 13.0-16.5 [facility] Comment on above: Performed By: #### L 100.0100, L500.4050, L501.9520 #### [facility] [address] [place], [address] IG% 0.400 Normal 0.0-0.9 [facility] Comment on above: Result Comment: IG% - Immature Granulocytes (promyelocytes, myelocytes and metamyelocytes) > 1% indicates that a LEFT SHIFT is Present. Performed By: #### L 100.0100, L500.4050, L501.9520 #### [facility] [address] [place], [address] Lymphocytes/100 WBC (Bld) 23.7 % Normal 19-41 [facility] Comment on above: Performed By: #### L 100.0100, L500.4050, [id number] #### [facility] [address] [place], [address] MCH (RBC) [Entitic mass] 29.4 pg Normal 27.0-32.0 [facility] Comment on above: Performed By: #### L 100.0100, L500.4050, L501.9520 #### [facility] [address] [place], [address] MCHC (RBC) [Mass/Vol] 34.5 g/dL Normal 32-36 [facility] Comment on above: Performed By: #### L 100.0100, L500.4050, L501.9520 #### [facility] [address] [place], [address] MCV (RBC) [Entitic vol] 85.3 fL Normal 80-94 [facility] Comment on above: Performed By: #### L 100.0100, L500.4050, L501.9520 #### [facility] [address] [place], [address] Monocytes/100 WBC (Bld) 6.4 % Normal 0-10 [facility] Comment on above: Performed By: #### L 100.0100, L500.4050, [id number] #### [facility] [address] [place], [address] Neutrophils/100 WBC (Bld) 65.3 % Normal 47-70 [facility] Comment on above: Performed By: #### L 100.0100, L500.4050, [id number] #### [facility] [address] [place], [address] Nucleated RBC (Bld) [#/Vol] 0 10*3/uL Normal 0-5 [facility] Comment on above: Performed By: #### L 100.0100, L500.4050, L501.9520 #### [facility] [address] [place], [address] Platelet mean volume (Bld) [Entitic vol] 9.3 fL Normal 6.2-12.0 [facility] Comment on above: Performed By: #### L 100.0100, L500.4050, L501.9520 #### [facility] [address] [place], [address] Platelets (Bld) [#/Vol] 189 10*3/uL Normal 150-450 [facility] Comment on above: Performed By: #### L 100.0100, L500.4050, L501.9520 #### [facility] [address] [place], [address] RBC (Bld) [#/Vol] 5.44 10*6/uL Normal 4.6-6.[address] [facility] Comment on above: Performed By: #### L 100.0100, L500.4050, L501.9520 #### [facility] [address] [place], [address] RDW SD 42.0 fl Normal 35.1-43.9 [facility] Comment on above: Performed By: #### L 100.0100, L500.4050, [id number] #### [facility] [address] [place], [address] WBC (Bld) [#/Vol] 9.5 10*3/uL Normal 4.4-11.0 [facility] Comment on above: Performed By: #### L 100.0100, L500.4050, L501.9520 #### [facility] [address] [place], [address] Carbon dioxide, total [Moles /volume] in Central venous bloodOrdered By: Robi Bass on 11-06-2024 CO2 [Moles/Vol] 20.0 mmol/L Low 21.0-32.0 [facility] Cardiology Visit Reporton Cardiology Visit Report [facility] [place] [facility] [address] [place] [address] OFFICE VISIT Date of Service: 11/06/24 MR#: [id number] Acct: [id number] Name: NIYA MCKEON Rep #: [id number] : 1955 Provider: Dr. Peyton Rucker MD Age/Sex: 69/M [place] [facility] Status: Signed HPI HPI History of [...] NIBP NIBP Intake Visit Reasons: 6 M Compensation Supervisor Required: No Accompanied by: Self Is patient [...] succinate 25 mg See Rx Instructions .Route 4 11/06/24 Rx tablet,extended release 24 hr .COMPLEX #90 tabs losartan 25 mg tablet 25 mg PO DAILY #90 tabs 06/03/24 0 11/06/24 Rx flecainide 100 mg tablet 100 mg PO Q12H #180 tabs 10/11/24 11/06/24 Rx Ejection fraction %: 60 Have you fallen in the past year?: No PFSH Medical History Acute bronchitis, unspecified Atherosclerotic heart disease of [place] coronary artery without angina pectoris Atrial enlargement, [...] Amilcar Dewitt (more content not included)... Normal [facility] Chloride assayOrdered By: Staci Bass on 11-06-2024 Chloride [Moles/Vol] 106 mmol/L 98-108 [facility] Comprehensive Metabolic Prof ilon 11-06-2024 Albumin [Mass/Vol] 4.3 g/dL Normal 3.4-4.8 [facility] Comment on above: Performed By: #### L 100.0100, L500.4050, L501.9520 #### [facility] [address] [place], [address] Albumin/Globulin [Mass ratio] 1.4 {ratio} Normal 0.9-2.4 [facility] Comment on above: Performed By: #### L 100.0100, L500.4050, L501.9520 #### [facility] [address] [place], [address] ALK PHOS 82 U/L Normal 40-129 [facility] Comment on above: Performed By: #### L 100.0100, L500.4050, [id number] #### [facility] [address] [place], [address] ALT [Catalytic activity/Vol] 34 U/L Normal <=46 [facility] Comment on above: Performed By: #### L 100.0100, L500.4050, L501.9520 #### [facility] [address] [place], [address] AST [Catalytic activity/Vol] 37 U/L Normal <=37 [facility] Comment on above: Performed By: #### L 100.0100, L500.4050, L501.9520 #### [facility] [address] [place], [address] Bilirubin [Mass/Vol] 1.16 mg/dL Normal 0.00-1.30 [facility] Comment on above: Performed By: #### L 100.0100, L500.4050, L501.9520 #### [facility] [address] [place], [address] BUN/CRE 14.4 RATIO Normal 10-20 [facility] Comment on above: Performed By: #### L 100.0100, L500.4050, L501.9520 #### [facility] [address] [place], [address] Calcium [Mass/Vol] 9.8 mg/dL Normal 7.6-11.0 [facility] Comment on above: Performed By: #### L 100.0100, L500.4050, [id number] #### [facility] [address] [place], [address] Chloride [Moles/Vol] 106 mmol/L Normal 98-108 [facility] Comment on above: Performed By: #### L 100.0100, L500.4050, [id number] #### [facility] [address] [place], [address] CO2 [Moles/Vol] 20.0 mmol/L Low 21.0-32.0 [facility] Comment on above: Performed By: #### L 100.0100, L500.4050, L501.9520 #### [facility] [address] [place], [address] Creatinine [Mass/Vol] 1.33 mg/dL High 0.70-1.20 [facility] Comment on above: Performed By: #### L 100.0100, L500.4050, L501.9520 #### [facility] [address] [place], [address] GAP 11 Normal 5-15 [facility] Comment on above: Performed By: #### L 100.0100, L500.4050, L501.9520 #### [facility] [address] [place], [address] GFR/1.73 sq M.predicted among non-blacks MDRD (S/P/Bld) [Vol rate/Area] 59 mL/min/{1.73_m2} Low >60 [facility] Comment on above: Result Comment: mL/m in/1.73m2 CKD-EPI Creatinine Equation (2020) Performed By: #### L 100.0100, L500.4050, L501.9520 #### [facility] [address] [place], [address] Globulin (S) [Mass/Vol] 3.1 g/dL Normal 2.2-4.2 [facility] Comment on above: Performed By: #### L 100.0100, L500.4050, [id number] #### [facility] [address] [place], [address] Glucose [Mass/Vol] 93 mg/dL Normal 70-99 [facility] Comment on above: Performed By: #### L 100.0100, L500.4050, [id number] #### [facility] [address] [place], [address] Potassium [Moles/Vol] 4.3 mmol/L Normal 3.3-5.1 [facility] Comment on above: Performed By: #### L 100.0100, L500.4050, L501.9520 #### [facility] [address] [place], [address] Sodium [Moles/Vol] 137 mmol/L Normal 133-145 [facility] Comment on above: Performed By: #### L 100.0100, L500.4050, [id number] #### [facility] [address] [place], [address] T PROT 7.3 g/dL Normal 5.9-8.4 [facility] Comment on above: Performed By: #### L 100.0100, L500.4050, L501.9520 #### [facility] [address] [place], [address] Urea nitrogen [Mass/Vol] 19 mg/dL Normal 4-19 [facility] Comment on above: Performed By: #### L 100.0100, L500.4050, [id number] #### [facility] [address] [place], [address] Eosinophil percentageOrdered By: Robi Bass on 11-06-2024 Eosinophils/100 WBC (Bld) 3.8 % 0-5 [facility] Erythrocyte distribution wid th ratioOrdered By: Robi Bass on 11-06-2024 Erythrocyte distribution width (RBC) [Ratio] 13.6 % 11.6-14.6 [facility] Erythrocyte distribution wid th standard deviationOrdered By: Robimarnie Bass on 11-06-2024 Erythrocyte distribution width (RBC) [Ratio] 42.0 fl 35.1-43.9 [facility] Glomerular filtration rate ( GFR) estimation/1.73 sq m using serum, plasma, or whole bOrdered By: Robi Bass on 11-06-2024 GFR/1.73 sq M.predicted among non-blacks MDRD (S/P/Bld) [Vol rate/Area] 59 mL/min/{1.73_m2} Low >60 [facility] Comment on above: mL/min/1.73m2 CKD-EP I Creatinine Equation (2020) Hematocrit Auto (Bld) [Volum e fraction]Ordered By: Robi Bass on 11-06-2024 Hematocrit (Bld) [Volume fraction] 46.4 % 40-54 [facility] Hemoglobin measurementOrdere d By: Robi Bass on 11-06-2024 Hemoglobin (Bld) [Mass/Vol] 16.0 g/dL 13.0-16.5 [facility] Immature granulocytes/100 WB C Auto (Bld)Ordered By: Robi Bass on 11-06-2024 Immature granulocytes/100 WBC (Bld) 0.400 % 0.0-0.9 [facility] Comment on above: IG% - Immature Granu locytes (promyelocytes, myelocytes and metamyelocytes) > 1% indicates that a LEFT SHIFT is Present. Laboratory - Chemistry and C hemistry - challengeOrdered By: Robi Bass on 11-06-2024 AST [Catalytic activity/Vol] 37 U/L <38 [facility] MCV (mean corpuscular volume ) determinationOrdered By: Robi Bass on 11-06-2024 MCV (RBC) [Entitic vol] 85.3 fL 80-94 [facility] Mean corpuscular hemoglobin (MCH) determinationOrdered By: Robi Bass on 11-06-2024 MCH (RBC) [Entitic mass] 29.4 pg 27.0-32.0 [facility] Mean corpuscular hemoglobin concentration (MCHC) determinationOrdered By: Robi Bass on 11-06-2024 MCHC (RBC) [Mass/Vol] 34.5 g/dL 32-36 [facility] Mean platelet volume determi nationOrdered By: Robi Bass on 11-06-2024 Platelet mean volume (Bld) [Entitic vol] 9.3 fL 6.2-12.0 [facility] Monocyte percentageOrdered B y: Robi Bass on 11-06-2024 Monocytes/100 WBC (Bld) 6.4 % 0-10 [facility] Neutrophil percentageOrdered By: Robi Bass on 11-06-2024 Neutrophils/100 WBC (Bld) 65.3 % 47-70 [facility] Nucleated red blood cell per centageOrdered By: Robi Bass on 11-06-2024 Nucleated RBC/100 WBC (Bld) [Ratio] 0 % 0-5 [facility] Platelet countOrdered By: Staci Bass on 11-06-2024 Platelets (Bld) [#/Vol] 189 10*3/uL 150-450 [facility] Potassium measurement (mass/ volume)Ordered By: Robi Bass on 11-06-2024 Potassium (Unsp spec) [Mass/Vol] 4.3 mmol/L 3.3-5.1 [facility] RBC Auto (Bld) [#/Vol]Ordere d By: Robi Bass on 11-06-2024 RBC (Bld) [#/Vol] 5.44 10*6/uL 4.6-6.[address] [facility] Serum creatinine measurement (mass/volume)Ordered By: Robi Bass on 11-06-2024 Creatinine [Mass/Vol] 1.33 mg/dL High 0.70-1.20 [facility] Serum globulin measurementOr dered By: Robi Bass on 11-06-2024 Globulin (S) [Mass/Vol] 3.1 g/dL 2.2-4.2 [facility] Serum glucose measurement (m ass/volume)Ordered By: Robi Bass on 11-06-2024 Glucose [Mass/Vol] 93 mg/dL 70-99 [facility] Serum or plasma alanine terry otransferase (ALT) measurementOrdered By: Robi Bass on 11-06-2024 ALT [Catalytic activity/Vol] 34 U/L <47 [facility] Serum or plasma albumin erich urement (mass/volume)Ordered By: Robi Bass on 11-06-2024 Albumin [Mass/Vol] 4.3 g/dL 3.4-4.8 [facility] Serum or plasma albumin/glob ulin mass ratioOrdered By: Robi Bass on 11-06-2024 Albumin/Globulin [Mass ratio] 1.4 {ratio} 0.9-2.4 [facility] Serum or plasma alkaline moriah sphatase measurementOrdered By: Robi Bass on 11-06-2024 ALP [Catalytic activity/Vol] 82 U/L 40-129 [facility] Serum or plasma calcium erich urement (mass/volume)Ordered By: Robi Bass on 11-06-2024 Calcium [Mass/Vol] 9.8 mg/dL 7.6-11.0 [facility] Serum or plasma urea nitroge n measurement (mass/volume)Ordered By: Robi Bass on 11-06-2024 Urea nitrogen [Mass/Vol] 19 mg/dL 4-19 [facility] Sodium levelOrdered By: Rodrigo Bass on 11-06-2024 Sodium [Moles/Vol] 137 mmol/L 133-145 [facility] TSH DL <= 0.005 mIU/L QnOrde red By: Robi Bass on 11-06-2024 TSH Qn 6.700 uIU/mL High 0.300-4.20 0 [facility] Thyroid Stim Hormone (TSH)on 11-06-2024 TSH 6.700 uIU/mL High 0.300-4.20 0 [facility] Comment on above: Performed By: #### L 100.0100, L500.4050, L501.9520 #### [facility] [place], [id number] Total proteinOrdered By: Harlye Bass on 11-06-2024 Protein [Mass/Vol] 7.3 g/dL 5.9-8.4 [facility] White blood cell (WBC) count Ordered By: Robi Bass on 11-06-2024 WBC (Bld) [#/Vol] 9.5 10*3/uL 4.4-11.0 [facility] Lipid Profileon 05-28-2024 Cholesterol [Mass/Vol] 155 mg/dL Normal 200 [facility] Comment on above: Result Comment: <200 mg/dL Desirable 200-240 mg/dL Borderline >240 mg/dL High Risk Performed By: #### L 500.4100 ####[facility] [address] [place], [address] Cholesterol in HDL [Mass/Vol] 40 mg/dL Normal [facility] Comment on above: Result Comment: The drugs N-Acetylcysteine and Metamizole may falsely depress this assay. Reference Range HDL <40 mg/dL Low HDL Cholesterol HDL >or= 60 mg/dL High HDL Cholesterol Performed By: #### L 500.4100 ####[facility] [address] [place], [address] Cholesterol in LDL [Mass/Vol] 101 mg/dL Normal 0-130 [facility] Comment on above: Performed By: #### L 500.4100 ####[facility] [address] [place], [address] Cholesterol in VLDL [Mass/Vol] 14 mg/dL Normal 5-40 [facility] Comment on above: Performed By: #### L 500.4100 ####[facility] [address] [place], [address] Triglyceride [Mass/Vol] 69 mg/dL Normal [facility] Comment on above: Result Comment: The drugs N-Acetylcysteine and Metamizole may falsely depress this assay. Serum Triglycerides Reference Interval Normal <150 mg/dL Borderline high 150 - 199 mg/dL High 200 - 499 mg/dL Very High > or = 500 mg/dL Performed By: #### L 500.4100 ####[facility] [address] [place], [address] 12 Lead EKG performed by [facility] on 05-27-2024 12 Lead EKG performed by [facility] [address] [place] [address] 12 Lead EKG performed by [facility] 05/27/24 1417 MR#: [id number] Acct: [id number] Name: NIYA MCKEON YOLANDA Rep #: [id number] : 1955 69 From: Peyton Rucker MD Attending Dr: Dr. 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 ABNORMAL Electronically signed on 08/05/2024 at 11:[address] Peyton Rucker [employer] Version 8610 08/05/24 111 Date Peyton Rucker MD CC: LOAN ADVISERKatja Nichols Date Dictated: 05/27/241416 Date Transcribed: 05/27/241416 Scientific Laboratory Supervisor: KARI Signed Normal [facility] Cardiology Visit Reporton Cardiology Visit Report [facility] [address] [place] [address] OFFICE VISIT Date of Service: 05/27/24 MR#: [id number] Acct: [id number] Name: NIYA MCKEON Rep #: [id number] : 1955 Provider: Dr. Peyton Rucker MD Age/Sex: 69/M Location: [facility] Status: Signed HPI HPI History of Present [...] NIBP Intake Visit Reasons: 6 M FU Compensation Supervisor Required: No Accompanied by: Self Is patient [...] Acute bronchitis, unspecified Atherosclerotic heart disease of [place] coronary artery without angina pectoris Atrial enlargement, [...] Results Laci (more content not included)... [facility] (STEPHANIE MERIDA) -------- PIETER MCKEON ([id number]) 1955 M Date Time Provider Department 09/06/23 2:20 PM DANNY RAMOS During your visit today, we recorded the following information about you: Pulse Blood pressure Weight Height 68/minute 110/71 119.5 kg 1.867 m ChahalEstefany MA 09/06/2023 2:25 PM Signed Patient denies cardiac complaints or symptoms. Danny Ramos MD 09/10/2023 9:24 PM Signed PRIMARY CARE PHYSICIAN: Kartik Miguel MD [facility] [address] [place] [address] REFERRING PHYSICIAN: Peyton Rucker [address] [facility] [address] [facility] [address] Patient Care Team: Roman Nichols CNP as PCP - General (Family Medicine) Peyton Rucker MD as Specialty Technical Trainer (Cardiology) CHIEF COMPLAINT: Evaluation of arrhythmia HISTORY OF PRESENT ILLNESS: Mr. Mckeon is a 68 year old male who presents today for evaluation of arrhythmia. He states atrial fibrillation was diagnosed in 2017, had wax build up at the time, was seen by a nurse who diagnosed the irregular rhythm. He was found to have atrial fibrillation, was evaluated and treated by a chief customer officer. 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 Normal [facility] Basophil percentageOrdered B y: Roman Nichols on 06-09-2023 Bilirubin [Mass/Vol] 1.60 mg/dL 0.20-1.00 [facility] Comment on above: For patients on eltr ombopag therapy, use of Dimension [place] TBIL is not recommended. Chloride [Moles/Vol] 108 mmol/L 98-107 [facility] Cholesterol [Mass/Vol] 131 mg/dL <200 [facility] Comment on above: <200 mg/dL Desirable 200-240 mg/dL Borderline >240 mg/dL High Risk Glucose [Mass/Vol] 98 mg/dL 74-106 [facility] Potassium [Moles/Vol] 3.9 mmol/L 3.5-5.1 [facility] Protein [Mass/Vol] 7.2 g/dL 6.4-8.2 [facility] Sodium [Moles/Vol] 137 mmol/L 136-145 [facility] Triglyceride [Mass/Vol] 54 mg/dL <199 [facility] Comment on above: The drugs N-Acetylcy steine and Metamizole may falsely depress this assay.Serum Triglycerides Reference Interval Normal <150 mg/dL Borderline high 150 - 199 mg/dL High 200 - 499 mg/dL Very High > or = 500 mg/dL Laboratory - Chemistry and C hemistry - challengeOrdered By: Roman Nichols on 06-09-2023 ALP [Catalytic activity/Vol] 84 U/L 45-117 [facility] ALT [Catalytic activity/Vol] 42 U/L 16-61 [facility] CO2 [Moles/Vol] 26.0 mmol/L 21.0-32.0 [facility] Free T4 [Mass/Vol] 1.21 ng/dL 0.76-1.46 [facility] Globulin (S) [Mass/Vol] 3.8 g/dL 2.2-4.2 [facility] Urea nitrogen/Creatinine [Mass ratio] 13.4 mg/mg 10-20 [facility] No Panel InformationOrdered By: Roman Nichols on 06-09-2023 Estimated GFR (MDRD) Amer 61 mL/min >60 [facility] Comment on above: GFR Calc Estimated GFR (MDRD) Non-Af Amer 50 mL/min >60 [facility] Comment on above: Non- GFR Calc Thyroid Stimulating Hormone (TSH) 7.02 uIU/mL 0.358-3.74 [facility] Serum or plasma albumin erich urement (mass/volume)Ordered By: Roman Nichols on 06-09-2023 Albumin [Mass/Vol] 3.4 g/dL 3.2-5.0 [facility] Serum or plasma albumin/glob ulin mass ratioOrdered By: Roman Nichols on 06-09-2023 Albumin/Globulin [Mass ratio] 0.9 {ratio} 0.9-2.4 [facility] Serum or plasma calcium erich urement (mass/volume)Ordered By: Roman Nichols on 06-09-2023 Calcium [Mass/Vol] 9.1 mg/dL 8.5-10.1 [facility] Serum or plasma cholesterol in HDL measurement (mass/volume)Ordered By: Roman Nichols on 06-09-2023 Cholesterol in HDL [Mass/Vol] 37 mg/dL >40 [facility] Comment on above: The drugs N-Acetylcy steine and Metamizole may falsely depress this assay. Reference Range HDL <40 mg/dL Low HDL Cholesterol HDL >or= 60 mg/dL High HDL Cholesterol Serum or plasma cholesterol in VLDL measurement (mass/volume)Ordered By: Roman Nichols on 06-09-2023 Cholesterol in VLDL [Mass/Vol] 11 mg/dL 5-40 [facility] Serum or plasma creatinine m easurement (mass/volume)Ordered By: Roman Nichols on 06-09-2023 Creatinine [Mass/Vol] 1.49 mg/dL 0.70-1.30 [facility] Comment on above: The validity of the calculated GFR & GFRAA in patients over 70 years has not been determined. Clinical correlation is essential. Serum or plasma low density lipoprotein (LDL) cholesterol measurement (mass/volume)Ordered By: Roman Nichols on 06-09-2023 Cholesterol in LDL [Mass/Vol] 83 mg/dL 0-130 [facility] Serum or plasma urea nitroge n measurement (mass/volume)Ordered By: Roman Nichols on 06-09-2023 Urea nitrogen [Mass/Vol] 20 mg/dL 7-18 [facility] Thin prep Papanicolaou smear with manual screeningOrdered By: Roman Nichols on 06-09-2023 Thin prep Papanicolaou smear with manual screening 28 U/L 15-37 [facility] Thin prep Papanicolaou smear with manual screening 3 5-15 [facility] CALCIFEDIOL (39851)Ordered B y: Director Of Music on 12-02-2022 25-hydroxyvitamin D [Mass/Vol] 80.6 ng/mL Normal 30.0-100.0 [facility]; [facility] Work Phone: Comment on above: Vitamin D deficiency has been defined by the [place] ofMedicine and an Endocrine Society practice guideline as alevel of serum 25-OH vitamin D less than 20 ng/mL (1,2).The Endocrine Society went on to further define vitamin Dinsufficiency as a level between 21 and 29 ng/mL (2).1. IOM ([place] of Medicine). 2010. Dietary reference intakes for calcium and D. [place]: The National Academies Press.2. Alaina MF, Joan NC, Keily ANGLIN, et al. Evaluation, treatment, and prevention of vitamin D deficiency: an Endocrine Society clinical practice guideline. JCEM. 2010; 96(7):1911-30. PATIENT WAS FASTINGP ERFORMED BY: [employer] [place] [id number] CBC, PLATELETS & AUT DIFF ([id number])Ordered By: Director Of Music on 12-02-2022 Basophils (Bld) [#/Vol] 0.1 10*3/uL Normal 0.0-0.2 [facility]; [facility] Work Phone: Comment on above: PATIENT WAS FASTINGP ERFORMED BY: [employer] [place] [id number] Basophils/100 WBC (Bld) 1 % Normal [facility]; [facility] Work Phone: Comment on above: PATIENT WAS FASTINGP ERFORMED BY: Inh[employer] DigitalFormerly [facility] [id number] Eosinophils (Bld) [#/Vol] 0.4 10*3/uL Normal 0.0-0.4 [facility]; [facility] Work Phone: Comment on above: PATIENT WAS FASTINGP ERFORMED BY: BEREKET Labcoharmony OropezaTuizgf4120 Rm RoadDublin [place] [id number] Eosinophils/100 WBC (Bld) 5 % Normal [facility]; [facility] Work Phone: Comment on above: PATIENT WAS FASTINGP ERFORMED BY: CB [facility] Baomos8072 Rm RoadWake Forest Baptist Health Davie Hospitalin [place] [id number] Erythrocyte distribution width (RBC) [Ratio] 13.6 % Normal 11.6-15.4 [facility]; [facility] Work Phone: Comment on above: PATIENT WAS FASTINGP ERFORMED BY: BEREKET [employer] Yfrizt4459 [address] [facility] [id number] Hematocrit (Bld) [Volume fraction] 44.4 % Normal 37.5-51.0 [facility]; [facility] Work Phone: Comment on above: PATIENT WAS FASTINGP ERFORMED BY: [facility] Neiabc7257 Rm RoadWake Forest Baptist Health Davie Hospitalin [place] [id number] Hemoglobin (Bld) [Mass/Vol] 14.7 g/dL Normal 13.0-17.7 [facility]; [facility] Work Phone: Comment on above: PATIENT WAS FASTINGP ERFORMED BY: [facility] Ojjbbq4980 Rm RoadWake Forest Baptist Health Davie Hospitalin [place] [id number] Immature granulocytes (Bld) [#/Vol] 0.0 10*3/uL Normal 0.0-0.1 [facility]; [facility] Work Phone: Comment on above: PATIENT WAS FASTINGP ERFORMED BY: CB [facility] Qrzxsu1145 Rm RoadDublin [place] [id number] Immature granulocytes/100 WBC (Bld) 0 % Normal [facility]; [facility] Work Phone: Comment on above: PATIENT WAS FASTINGP ERFORMED BY: BEREKET [facility] Esjseq3637 Rm RoadDublin [place] [id number] Lymphocytes (Bld) [#/Vol] 1.7 10*3/uL Normal 0.7-3.1 [facility]; [facility] Work Phone: Comment on above: PATIENT WAS FASTINGP ERFORMED BY: BEREKET Oropeza6370 [facility] [id number] Lymphocytes/100 WBC (Bld) 24 % Normal [facility]; [facility] Work Phone: Comment on above: PATIENT WAS FASTINGP ERFORMED BY: BEREKET Catie Rtpkxy0275 [facility] [id number] MCH (RBC) [Entitic mass] 27.7 pg Normal 26.6-33.0 [facility]; [facility] Work Phone: Comment on above: PATIENT WAS FASTINGP ERFORMED BY: [facility] Oezljp7736 [facility] [id number] MCHC (RBC) [Mass/Vol] 33.1 g/dL Normal 31.5-35.7 [facility] prehensive Internal Medicine; [facility] Work Phone: Comment on above: PATIENT WAS FASTINGP ERFORMED BY: BEREKET Catie Kckfta9906 [facility] [id number] MCV (RBC) [Entitic vol] 84 fL Normal 79-97 [facility]; [facility] Work Phone: Comment on above: PATIENT WAS FASTINGP ERFORMED BY: [facility] Pbvvho1602 [facility] [id number] Monocytes (Bld) [#/Vol] 0.6 10*3/uL Normal 0.1-0.9 [facility]; [facility] Work Phone: Comment on above: PATIENT WAS FASTINGP ERFORMED BY: Catie Kuhvny8371 [facility] [id number] Monocytes/100 WBC (Bld) 8 % Normal [facility]; [facility] Work Phone: Comment on above: PATIENT WAS FASTINGP ERFORMED BY: BEREKET [facility] Odgqoq4401 Rm RoadDublin [place] [id number] Neutrophils (Bld) [#/Vol] 4.5 10*3/uL Normal 1.4-7.0 [facility]; [facility] Work Phone: Comment on above: PATIENT WAS FASTINGP ERFORMED BY: BEREKET [facility] Mskddq6026 Rm RoadDublin [place] [id number] Neutrophils/100 WBC (Bld) 62 % Normal [facility]; [facility] Work Phone: Comment on above: PATIENT WAS FASTINGP ERFORMED BY: BEREKET [facility] Xshytg0032 Rm RoadDublin [place] [id number] Platelets (Bld) [#/Vol] 274 10*3/uL Normal 150-450 [facility]; [facility] Work Phone: Comment on above: PATIENT WAS FASTINGP ERFORMED BY: BEREKET [facility] Nwdhaf5461 Rm RoadDublin [place] [id number] RBC (Bld) [#/Vol] 5.30 10*6/uL Normal 4.14-5.80 [facility] SSD[facility]; [facility] Work Phone: Comment on above: PATIENT WAS FASTINGP ERFORMED BY: BEREKET [facility] Omwzsk8423 Rm RoadDublin [place] [id number] WBC (Bld) [#/Vol] 7.2 10*3/uL Normal 3.4-10.8 [facility]; [facility] Work Phone: Comment on above: PATIENT WAS FASTINGP ERFORMED BY: BEREKET [facility] Epbgns8329 Rm RoadDublin [place] [id number] LIPID PANEL ([id number])Ordered B y: Director Of Music on 12-02-2022 Cholesterol [Mass/Vol] 120 mg/dL Normal 100-199 [facility]; [facility] Work Phone: Comment on above: PATIENT WAS FASTINGP ERFORMED BY: BEREKET [facility] Ahizzx7873 Rm RoadDublin [place] [id number] Cholesterol in HDL [Mass/Vol] 35 mg/dL Abnormal [facility]; [facility] Work Phone: Comment on above: PATIENT WAS FASTINGP ERFORMED BY: BEREKET Labpaige Oropeza6370 [address] [facility] Centerin [place] [id number] Triglyceride [Mass/Vol] 53 mg/dL Normal 0-149 [facility]; [facility] Work Phone: Comment on above: PATIENT WAS FASTINGP ERFORMED BY: BEREKET Labpaige MonroeXvhthl5816 Rm [facility] [id number] LIPID PANEL ([id number]) 12 mg/dL Normal 5-40 [facility]; [facility] Work Phone: Comment on above: PATIENT WAS FASTINGP ERFORMED BY: BEREKET Andres Monroelin6370 [facility] [id number] LIPID PANEL (67375) 73 mg/dL Normal 0-99 [facility]; [facility] Work Phone: Comment on above: PATIENT WAS FASTINGP ERFORMED BY: BEREKET Labaria Mqescs6649 [facility] [id number] LIPID PANEL (28322) 2.1 {ratio} Normal 0.0-3.6 [facility]; [facility] Work Phone: Comment on above: LDL/HDL Ratio Men Wo men 1/2 Avg.Risk 1.0 1.5 Avg.Risk 3.6 3.2 2X Avg.Risk 6.2 5.0 3X Avg.Risk 8.0 6.1 PATIENT WAS FASTINGP ERFORMED BY: BEREKET Labaria Rbrigd1738 [facility] [id number] METABOLIC PANEL, COMPREHENSI VE (23117)Ordered By: Director Of Music on 12-02-2022 Albumin [Mass/Vol] 3.8 g/dL Normal 3.8-4.8 [facility]; [facility] Work Phone: Comment on above: PATIENT WAS FASTINGP ERFORMED BY: BEREKET [facility] Qziqne6517 R[address] [facility]in [place] [id number] Albumin/Globulin [Mass ratio] 1.4 {ratio} Normal 1.2-2.2 [facility]; [facility] Work Phone: Comment on above: PATIENT WAS FASTINGP ERFORMED BY: BEREKET [facility] Bsjrdx4764 Rm RoadDublin [place] [id number] ALP [Catalytic activity/Vol] 87 U/L Normal 44-121 [facility]; [facility] Work Phone: Comment on above: PATIENT WAS FASTINGP ERFORMED BY: CB [facility] Mrcpez8037 R[address] RoadDublin [place] [id number] ALT [Catalytic activity/Vol] 26 U/L Normal 0-44 [facility]; [facility] Work Phone: Comment on above: PATIENT WAS FASTINGP ERFORMED BY: [facility] Welzrk3809 Rm RoadDublin [place] [id number] AST [Catalytic activity/Vol] 24 U/L Normal 0-40 [facility]; [facility] Work Phone: Comment on above: PATIENT WAS FASTINGP ERFORMED BY: [facility] Figvaf9523 R[address] RoadDublin [place] [id number] Bilirubin [Mass/Vol] 0.9 mg/dL Normal 0.0-1.2 [facility]; [facility] Work Phone: Comment on above: PATIENT WAS FASTINGP ERFORMED BY: [facility] Dugqel5617 R[address] RoadDublin [place] [id number] Calcium [Mass/Vol] 9.4 mg/dL Normal 8.6-10.2 [facility]; [facility] Work Phone: Comment on above: PATIENT WAS FASTINGP ERFORMED BY: [facility] Giceos2376 Rm RoadDublin [place] [id number] Chloride [Moles/Vol] 104 mmol/L Normal 96-106 [facility]; [facility] Work Phone: Comment on above: PATIENT WAS FASTINGP ERFORMED BY: [facility] Xizobp8153 R[address] RoadDublin [place] [id number] CO2 [Moles/Vol] 21 mmol/L Normal 20-29 [facility]; [facility] Work Phone: Comment on above: PATIENT WAS FASTINGP ERFORMED BY: BEREKET Andres Oropeza6370 [facility] [id number] Creatinine [Mass/Vol] 1.25 mg/dL Normal 0.76-1.27 [facility] prehensive Internal Medicine; [facility] Work Phone: Comment on above: PATIENT WAS FASTINGP ERFORMED BY: BEREKET Andres Monroelin6370 [facility] [id number] GFR/1.73 sq M.predicted among non-blacks MDRD (S/P/Bld) [Vol rate/Area] 64 mL/min/{1.73_m2} Normal Comprehensiv e [facility]; [facility] Work Phone: Comment on above: PATIENT WAS FASTINGP ERFORMED BY: BEREKET Andres Oropeza6370 [facility] [id number] Globulin (S) [Mass/Vol] 2.8 g/dL Normal 1.5-4.5 [facility]; [facility] Work Phone: Comment on above: PATIENT WAS FASTINGP ERFORMED BY: BEREKET Andres Oropeza6370 [facility] [id number] Glucose [Mass/Vol] 82 mg/dL Normal 70-99 [facility]; [facility] Work Phone: Comment on above: PATIENT WAS FASTINGP ERFORMED BY: BEREKET Catie Xbxbzl4951 [facility] [id number] Potassium [Moles/Vol] 4.3 mmol/L Normal 3.5-5.2 [facility] prehensive Internal Medicine; [facility] Work Phone: Comment on above: PATIENT WAS FASTINGP ERFORMED BY: BEREKET Andres Monroelin6370 [facility] [id number] Protein [Mass/Vol] 6.6 g/dL Normal 6.0-8.5 [facility]; [facility] Work Phone: Comment on above: PATIENT WAS FASTINGP ERFORMED BY: BEREKET [facility] Hhzgus2142 R[address] RoadDublin [place] [id number] Sodium [Moles/Vol] 138 mmol/L Normal 134-144 [facility]; [facility] Work Phone: Comment on above: PATIENT WAS FASTINGP ERFORMED BY: BEREKET [facility] Yagaqt3112 R[address] RoadDublin [place] [id number] Urea nitrogen [Mass/Vol] 16 mg/dL Normal 8-27 [facility]; [facility] Work Phone: Comment on above: PATIENT WAS FASTINGP ERFORMED BY: BEREKET [facility] Konuuz1747 Rm RoadDublin [place] [id number] Urea nitrogen/Creatinine [Mass ratio] 13 mg/mg Normal 10-24 [facility]; [facility] Work Phone: Comment on above: PATIENT WAS FASTINGP ERFORMED BY: BEREKET [facility] Kuyopv2949 R[address] RoadDublin [place] [id number] MICROALB;CREAT RATION, RAND UR ([id number])Ordered By: Director Of Music on 12-02-2022 Albumin DL <= 20 mg/L (U) [Mass/Vol] 29.1 ug/mL Normal [facility]; [facility] Work Phone: Comment on above: PATIENT WAS FASTINGP ERFORMED BY: BEREKET [facility] Koxmlm3933 Rm RoadDublin [place] [id number] Albumin/Creatinine (U) [Mass ratio] 22 {mg/g_creat} Normal 0-29 [facility]; [facility] Work Phone: Comment on above: Normal: 0 - 29 Moder ately increased: 30 - 300 Severely increased: >300 PATIENT WAS FASTINGP ERFORMED BY: CB [facility] Thryjf3305 R[address] RoadDublin [place] [id number] Creatinine (U) [Mass/Vol] 133.8 mg/dL Normal [facility]; [facility] Work Phone: Comment on above: PATIENT WAS FASTINGP ERFORMED BY: BEREKET [facility] Lndywh8920 R[address] RoadDublin [place] [id number] PSA (PROSTATE SPECIFIC ANTIG EN) ([id number])Ordered By: Director Of Music on 12-02-2022 Prostate specific Ag [Mass/Vol] 1.4 ng/mL Normal 0.0-4.0 [facility]; [facility] Work Phone: Comment on above: Fahad ECLIA methodol ogy. .According to the [place] [employer], Serum PSA shoulddecrease and remain [...] malignant disease. PATIENT WAS FASTINGP ERFORMED BY: BEREKET OrionVM [employer] Emafwp6389 Rm RoadDublin [place] [id number] TSH (THYROID STIMULATING HOR JOHANA) ([id number])Ordered By: Director Of Music on 12-02-2022 TSH Qn 5.160 {uIU/mL} Abnormal 0.450-4.50 0 [facility]; [facility] Work Phone: Comment on above: PATIENT WAS FASTINGP ERFORMED BY: AfterYes [facility] Dqpmhv6688 Rm AudioCatchDublin [place] [id number] URINALYSIS ([id number])Ordered By : Director Of Music on 12-02-2022 Appearance (U) Clear Normal Comprehens jethro [facility]; [facility] Work Phone: Comment on above: PATIENT WAS FASTINGP ERFORMED BY: CB [facility] Fkrbpv8889 R[address] RoadDublin [place] [id number] Bilirubin Ql (U) Negative Normal Comprehe nsive Internal Medicine; [facility] Work Phone: Comment on above: PATIENT WAS FASTINGP ERFORMED BY: CB [facility] Wvsksf7041 R[address] RoadDublin [place] [id number] Color (U) Yellow Normal [facility]; [facility] Work Phone: Comment on above: PATIENT WAS FASTINGP ERFORMED BY: AfterYes [facility] Lkjtje1423 Rm AudioCatchDublin [place] [id number] Glucose Ql (U) Negative Normal Comprehens jethro [facility]; [facility] Work Phone: Comment on above: PATIENT WAS FASTINGP ERFORMED BY: BEREKET Monroelin6370 Rm Roadblin [place] [id number] Hemoglobin Ql (U) Negative Normal Compreh ensive [facility]; [facility] Work Phone: Comment on above: PATIENT WAS FASTINGP ERFORMED BY: BEREKET Oropeza6370 Rm Roadblin [place] [id number] Ketones Ql (U) Negative Normal Comprehens jethro [facility]; [facility] Work Phone: Comment on above: PATIENT WAS FASTINGP ERFORMED BY: BEREKET Monroelin6370 Rm [facility] [id number] Leukocyte esterase Test strip Ql (U) Negative Normal [facility]; [facility] Work Phone: Comment on above: PATIENT WAS FASTINGP ERFORMED BY: BEREKET Monroelin6370 Rm [facility] [id number] Microscopic observation LM Nom (Urine sed) See below: Normal [facility]; [facility] Work Phone: Comment on above: Microscopic was ramakrishna cated and was performed. PATIENT WAS FASTINGP ERFORMED BY: BEREKET Monroelin6370 Rm RoadWake Forest Baptist Health Dav[facility] Hospitalin [place] [id number] Nitrite Ql (U) Negative Normal Comprehens jethro Internal Medicine; [facility] Work Phone: Comment on above: PATIENT WAS FASTINGP ERFORMED BY: BEREKET Labpaige MonroeWewxnn8902 Rm [facility]in [place] [id number] pH (U) 6.5 [pH] Normal 5.0-7.5 [facility]; [facility] Work Phone: Comment on above: PATIENT WAS FASTINGP ERFORMED BY: BEREKET Labcoharmony MonroeTyszhk1109 Rm RoadDublin [place] [id number] Protein Ql (U) 1+ Abnormal Comprehens jethro [facility] Medicine; [facility] Work Phone: Comment on above: PATIENT WAS FASTINGP ERFORMED BY: [employer] Frevwh9526 [facility] [id number] Specific gravity (U) [Rel density] 1.022 1 Normal 1.005-1.03 0 [facility]; [facility] Work Phone: Comment on above: PATIENT WAS FASTINGP ERFORMED BY: [facility] Oegrcj4248 [facility] [id number] Urobilinogen (U) [Mass/Vol] 1.0 mg/dL Normal 0.2-1.0 [facility]; [facility] Work Phone: Comment on above: PATIENT WAS FASTINGP ERFORMED BY: [employer]Emp[employer] Mcdine5361 [facility] [id number] VITAMIN B12 AND FOLATES (826 07)Ordered By: Director Of Music on 12-02-2022 Cobalamin (Vitamin B12) [Mass/Vol] 683 pg/mL Normal 232-1245 [facility]; [facility] Work Phone: Comment on above: PATIENT WAS FASTINGP ERFORMED BY: [employer] Wpxkyn0653 [facility] [id number] Folate [Mass/Vol] 8.9 ng/mL Normal Compreh ensive Internal Medicine; [facility] Work Phone: Comment on above: A serum folate alaina ntration of less than 3.1 ng/mL isconsidered to represent clinical deficiency. PATIENT WAS FASTINGP ERFORMED BY: [employer] Vuguqy2259 [facility] [id number] Gel ABOon 05-24-2022 ABO/Rh Interp Negative Invalid Interpretation Code [facility] ([place]) Comment on above: Order Comment: Hemol yzed - please redraw 0642 SKS Performed By: #### A RAGHAVENDRA MARTINEZ #### Marisa [address]use [address] [place], [place] [address] Gel ABSon 05-24-2022 Antibody Screen Gel Negative Normal [facility] ([place]) Comment on above: Performed By: #### A RAGHAVENDRA MARTINEZ #### [facility] [address] [place], [place] [address] LABORATORYOrdered By: Marisol Lord on 05-24-2022 ABO/Rh [...] Date: 05/24/2022 9:14:29 AM Ordering Provider: MIYA PARRA [facility] ([place]) CT KNEE W/O CONTRAST RIGHTon 05-02-2022 CT [...] 05/02/2022 11:53:14 AM Ordering Provider: MIYA PARRA [facility] [place]) CBC with auto diff ([id number])Or dered By: Director Of Music on 04-12-2022 Basophils (Bld) [#/Vol] 0.1 10*3/uL Normal 0.0-0.2 [facility]; [facility] Work Phone: Comment on above: prior to sx in 2021; PATIENT WAS FASTINGPERFORMED BY: [employer]70 [facility] [id number] Basophils/100 WBC (Bld) 1 % Normal [facility]; [facility] Work Phone: Comment on above: prior to sx in 2021; PATIENT WAS FASTINGPERFORMED BY: eSNF6370 [facility] [id number] Eosinophils (Bld) [#/Vol] 0.3 10*3/uL Normal 0.0-0.4 [facility]; [facility] Work Phone: Comment on above: prior to sx in 2021; PATIENT WAS FASTINGPERFORMED BY: eSNF6370 [facility] [id number] Eosinophils/100 WBC (Bld) 3 % Normal [facility]; [facility] Work Phone: Comment on above: prior to sx in 2021; PATIENT WAS FASTINGPERFORMED BY: BEREKET Labco Tqxvtw8503 Rm [facility] [id number] Erythrocyte distribution width (RBC) [Ratio] 13.6 % Normal 11.6-15.4 [facility]; [facility] Work Phone: Comment on above: prior to sx in 2021; PATIENT WAS FASTINGPERFORMED BY: [facility] Ybmyfr3889 Rm RoadWake Forest [facility] Health Dav[facility] Hospitalin [place] [id number] Hematocrit (Bld) [Volume fraction] 46.0 % Normal 37.5-51.0 [facility]; [facility] Work Phone: Comment on above: prior to sx in 2021; PATIENT WAS FASTINGPERFORMED BY: BEREKET Labco Uuhehe4456 Rm [facility] [id number] Hemoglobin (Bld) [Mass/Vol] 15.7 g/dL Normal 13.0-17.7 [facility]; [facility] Work Phone: Comment on above: prior to sx in 2021; PATIENT WAS FASTINGPERFORMED BY: BEREKET [facility] Dqkzrc5747 Rm [facility] [id number] Immature granulocytes (Bld) [#/Vol] 0.1 10*3/uL Normal 0.0-0.1 [facility]; [facility] Work Phone: Comment on above: prior to sx in 2021; PATIENT WAS FASTINGPERFORMED BY: [facility] Kocdsa9637 Rm [facility]in [place] [id number] Immature granulocytes/100 WBC (Bld) 1 % Normal [facility]; [facility] Work Phone: Comment on above: prior to sx in 2021; PATIENT WAS FASTINGPERFORMED BY: [facility] Jkfosg3486 Rm [facility] Hospitalblin [place] [id number] Lymphocytes (Bld) [#/Vol] 2.1 10*3/uL Normal 0.7-3.1 [facility]; [facility] Work Phone: Comment on above: prior to sx in 2021; PATIENT WAS FASTINGPERFORMED BY: [facility] Qijksg9001 Rm [facility] [id number] Lymphocytes/100 WBC (Bld) 25 % Normal [facility]; [facility] Work Phone: Comment on above: prior to sx in 2021; PATIENT WAS FASTINGPERFORMED BY: CB [facility] Gkbwqh9149 Rm [facility] [id number] MCH (RBC) [Entitic mass] 28.8 pg Normal 26.6-33.0 [facility]; [facility] Work Phone: Comment on above: prior to sx in 2021; PATIENT WAS FASTINGPERFORMED BY: [facility] Vhozgw5125 Rm [facility] [id number] MCHC (RBC) [Mass/Vol] 34.1 g/dL Normal 31.5-35.7 [facility] prehensive Internal Medicine; [facility] Work Phone: Comment on above: prior to sx in 2021; PATIENT WAS FASTINGPERFORMED BY: [facility] Whtajb1694 Rm [facility]in [place] [id number] MCV (RBC) [Entitic vol] 84 fL Normal 79-97 [facility]; [facility] Work Phone: Comment on above: prior to sx in 2021; PATIENT WAS FASTINGPERFORMED BY: Labco Rgolfj0119 [facility]in [place] [id number] Monocytes (Bld) [#/Vol] 0.7 10*3/uL Normal 0.1-0.9 [facility]; [facility] Work Phone: Comment on above: prior to sx in 2021; PATIENT WAS FASTINGPERFORMED BY: [facility] Krlfgo1828 [facility] [id number] Monocytes/100 WBC (Bld) 8 % Normal [facility]; [facility] Work Phone: Comment on above: prior to sx in 2021; PATIENT WAS FASTINGPERFORMED BY: CB [facility] Qgnqmo3050 Rm RoadDublin [place] [id number] Neutrophils (Bld) [#/Vol] 5.1 10*3/uL Normal 1.4-7.0 [facility]; [facility] Work Phone: Comment on above: prior to sx in 2021; PATIENT WAS FASTINGPERFORMED BY: CB [facility] Fsdogt0587 Rm RoadDublin [place] [id number] Neutrophils/100 WBC (Bld) 62 % Normal [facility]; [facility] Work Phone: Comment on above: prior to sx in 2021; PATIENT WAS FASTINGPERFORMED BY: CB [facility] Qjjrmq1765 Rm RoadDublin [place] [id number] Platelets (Bld) [#/Vol] 207 10*3/uL Normal 150-450 [facility]; [facility] Work Phone: Comment on above: prior to sx in 2021; PATIENT WAS FASTINGPERFORMED BY: CB [facility] Fozaom8564 Rm RoadDublin [place] [id number] RBC (Bld) [#/Vol] 5.46 10*6/uL Normal 4.14-5.80 Compr ehensive Internal Medicine; [facility] Work Phone: Comment on above: prior to sx in 2021; PATIENT WAS FASTINGPERFORMED BY: CB [facility] Tplhqx8676 Rm RoadDublin [place] [id number] WBC (Bld) [#/Vol] 8.2 10*3/uL Normal 3.4-10.8 Compre hensive Internal Medicine; [facility] Work Phone: Comment on above: prior to sx in 2021; PATIENT WAS FASTINGPERFORMED BY: CB [facility] Wvnlqn3024 Rm RoadDublin [place] [id number] LIPID PANEL ([id number])Ordered B y: Director Of Music on 04-12-2022 Cholesterol [Mass/Vol] 155 mg/dL Normal 100-199 [facility]; [facility] Work Phone: Comment on above: may 2022; YELENA Bernal WAS FASTINGPERFORMED BY: BEREKET [facility] Enhdtw6680 Rm RoadDublin [place] [id number] Cholesterol in HDL [Mass/Vol] 39 mg/dL Abnormal [facility]; [facility] Work Phone: Comment on above: may 2022; YELENA Bernal WAS FASTINGPERFORMED BY: CB [facility] Tzihzq0843 Rm RoadDublin [place] [id number] Triglyceride [Mass/Vol] 68 mg/dL Normal 0-149 [facility]; [facility] Work Phone: Comment on above: may 2022; YELENA Bernal WAS FASTINGPERFORMED BY: CB [facility] Euxqdd8124 Rm RoadDublin [place] [id number] LIPID PANEL (95912) 13 mg/dL Normal 5-40 [facility] SSDensive [facility]; [facility] Work Phone: Comment on above: may 2022; YELENA Bernal WAS FASTINGPERFORMED BY: CB [facility] Ixdwyl4352 Rm RoadDublin [place] [id number] LIPID PANEL (02076) 103 mg/dL Abnormal 0-99 [facility] SSDensive [facility]; [facility] Work Phone: Comment on above: may 2022; YELENA Bernal WAS FASTINGPERFORMED BY: CB [facility] Wiuaat1195 Rm RoadDublin [place] [id number] LIPID PANEL (10806) 2.6 {ratio} Normal 0.0-3.6 [facility]; [facility] Work Phone: Comment on above: LDL/HDL Ratio Men Wo men 1/2 Avg.Risk 1.0 1.5 Avg.Risk 3.6 3.2 2X Avg.Risk 6.2 5.0 3X Avg.Risk 8.0 6.1 may 2022; YELENA Bernal WAS FASTINGPERFORMED BY: CB [facility] Vzlklg3845 Rm RoadDublin [place] [id number] METABOLIC PANEL, COMPREHENSI VE (13604)Ordered By: Director Of Music on 04-12-2022 Albumin [Mass/Vol] 4.2 g/dL Normal 3.8-4.8 [facility] Internal [facility]; [facility] Work Phone: Comment on above: prior to sx may ; PATIENT WAS FASTINGPERFORMED BY: CB [facility] Lwenma4718 Rm RoadDublin [place] [id number] Albumin/Globulin [Mass ratio] 1.6 {ratio} Normal 1.2-2.2 [facility]; [facility] Work Phone: Comment on above: prior to sx may ; PATIENT WAS FASTINGPERFORMED BY: CB [facility] Uucktx4756 Rm RoadDublin [place] [id number] ALP [Catalytic activity/Vol] 92 U/L Normal 44-121 [facility]; [facility] Work Phone: Comment on above: prior to sx may ; PATIENT WAS FASTINGPERFORMED BY: CB [facility] Hbrgkd6005 Rm RoadDublin [place] [id number] ALT [Catalytic activity/Vol] 37 U/L Normal 0-44 [facility]; [facility] Work Phone: Comment on above: prior to sx may ; PATIENT WAS FASTINGPERFORMED BY: CB [facility] Xpvczz9285 Rm RoadDublin [place] [id number] AST [Catalytic activity/Vol] 32 U/L Normal 0-40 [facility]; [facility] Work Phone: Comment on above: prior to sx may ; PATIENT WAS FASTINGPERFORMED BY: CB [facility] Pzbtjk6913 Rm RoadDublin [place] [id number] Bilirubin [Mass/Vol] 0.9 mg/dL Normal 0.0-1.2 [facility]; [facility] Work Phone: Comment on above: prior to sx may ; PATIENT WAS FASTINGPERFORMED BY: CB [facility] Hoqvrk9537 Rm RoadDublin [place] [id number] Calcium [Mass/Vol] 9.9 mg/dL Normal 8.6-10.2 [facility]; [facility] Work Phone: Comment on above: prior to sx may ; PATIENT WAS FASTINGPERFORMED BY: CB [facility] Bwmrkf4512 Rm RoadDublin [place] [id number] Chloride [Moles/Vol] 106 mmol/L Normal 96-106 [facility] rehensive Internal Medicine; [facility] Work Phone: Comment on above: prior to sx may ; PATIENT WAS FASTINGPERFORMED BY: CB [facility] Lcwncw2055 Rm RoadDublin [place] [id number] CO2 [Moles/Vol] 23 mmol/L Normal 20-29 [facility]; [facility] Work Phone: Comment on above: prior to sx may ; PATIENT WAS FASTINGPERFORMED BY: [facility] Ryrhqv8107 Rm RoadDuin [place] [id number] Creatinine [Mass/Vol] 1.26 mg/dL Normal 0.76-1.27 [facility]ensive [facility]; [facility] Work Phone: Comment on above: prior to sx may ; PATIENT WAS FASTINGPERFORMED BY: [facility] Bwdoak3798 Rm [facility] Hospitalblin [place] [id number] GFR/1.73 sq M.predicted among non-blacks MDRD (S/P/Bld) [Vol rate/Area] 64 mL/min/{1.73_m2} Normal Comprehens e Internal Medicine; [facility] Work Phone: Comment on above: prior to sx may ; PATIENT WAS FASTINGPERFORMED BY: [facility] Ytmjqy4546 Rm RoadDuin [place] [id number] Globulin (S) [Mass/Vol] 2.7 g/dL Normal 1.5-4.5 [facility]; [facility] Work Phone: Comment on above: prior to sx may ; PATIENT WAS FASTINGPERFORMED BY: [facility] Qhuwah2710 Rm RoadDublin [place] [id number] Glucose [Mass/Vol] 90 mg/dL Normal 70-99 [facility]; [facility] Work Phone: Comment on above: Please note refere nce interval change prior to sx may ; PATIENT WAS FASTINGPERFORMED BY: BEREKET [facility] Anizly7178 Rm RoadDublin [place] [id number] Potassium [Moles/Vol] 4.4 mmol/L Normal 3.5-5.2 [facility] Internal Medicine; [facility] Work Phone: Comment on above: prior to sx may ; PATIENT WAS FASTINGPERFORMED BY: BEREKET [facility] Flzisy4170 Rm RoadDublin [place] [id number] Protein [Mass/Vol] 6.9 g/dL Normal 6.0-8.5 [facility]; [facility] Work Phone: Comment on above: prior to sx may ; PATIENT WAS FASTINGPERFORMED BY: BEREKET [facility] Nzrwux9679 Rm RoadDublin [place] [id number] Sodium [Moles/Vol] 141 mmol/L Normal 134-144 [facility]; [facility] Work Phone: Comment on above: prior to sx may ; PATIENT WAS FASTINGPERFORMED BY: BEREKET [facility] Ivpeuo0098 Rm RoadDublin [place] [id number] Urea nitrogen [Mass/Vol] 18 mg/dL Normal 8-27 [facility]; [facility] Work Phone: Comment on above: prior to sx may ; PATIENT WAS FASTINGPERFORMED BY: CB [facility] Vxkjun2552 Rm Roadblin [place] [id number] Urea nitrogen/Creatinine [Mass ratio] 14 mg/mg Normal 10-24 [facility]; [facility] Work Phone: Comment on above: prior to sx may ; PATIENT WAS FASTINGPERFORMED BY: BEREKET [facility] Avisgw8167 Rm [facility] HospitalDublin [place] [id number] MICROALBUMINOrdered By: Syst em Stacker And Sorter Operator on 04-12-2022 Albumin DL <= 20 mg/L (U) [Mass/Vol] 45.8 ug/mL Normal [facility]; [facility] Work Phone: Comment on above: prior to sx may ; PATIENT WAS FASTINGPERFORMED BY: [employer] Bcqqqh1833 [facility] [id number] Albumin/Creatinine (U) [Mass ratio] 31 {mg/g_creat} Abnormal 0-29 [facility]; [facility] Work Phone: Comment on above: Normal: 0 - 29 Moder ately increased: 30 - 300 Severely increased: >300 prior to sx may ; PATIENT WAS FASTINGPERFORMED BY: [employer]Emp[employer] Vmfifu0555 Rm AudioCatchFormerly [facility] [id number] Creatinine (U) [Mass/Vol] 147.0 mg/dL Normal [facility]; [facility] Work Phone: Comment on above: prior to sx may ; PATIENT WAS FASTINGPERFORMED BY: [employer] Etonjk3788 [facility] [id number] TSH (THYROID STIMULATING HOR JOHANA) ([id number])Ordered By: Director Of Music on 01-12-2022 TSH Qn 4.560 {uIU/mL} Abnormal 0.450-4.50 0 [facility]; [facility] Work Phone: Comment on above: today; PATIENT NOT F ASTINGPERFORMED BY: [employer]Emp[employer] Odftuu5224 [facility] InstituteVintedFormerly [facility] [id number] Gel ABOon 08-31-2021 ABO/Rh Interp Negative Invalid Interpretation Code [facility] ([place]) Comment on above: Performed By: #### A RAGHAVENDRA MARTINEZ #### [address] [address] Gel ABSon 08-31-2021 Antibody Screen Gel Negative Normal [facility] ([place]) Comment on above: Performed By: #### A RAGHAVENDRA MARTINEZ #### [address] [place], [place] [address] XR KNEE 1 OR 2 VIEWS LEFTon [...] Danny Dawson MD Preliminary Report By: Danny Dawson MD Electronically signed By Danny Dawson MD Dictated Date: 08/31/2021 1:50:33 PM Prelim Date: 08/31/2021 1:51:08 PM Sign Date: 08/31/2021 1:51:08 PM Ordering Provider: MIYA PARRA Normal [facility]) Gel ABOon 08-17-2021 ABO/Rh Interp Negative Invalid Interpretation Code [facility]) Comment on above: Performed By: #### A BRITTANI, ANSG #### [address] [place], [place] [address] Gel ABSon 08-17-2021 Antibody Screen Gel Negative Normal [facility]) Comment on above: Performed By: #### A BRITTANI, ANSG #### [address] [address] LABORATORYOrdered By: Marisol Lord on 08-17-2021 ABO/Rh [...] by: Phill Gordon MD Preliminary Report By: Yante Maldonado Electronically signed By Phill Gordon MD Dictated Date: 08/17/2021 11:32:04 AM Prelim Date: 08/17/2021 11:42:24 AM Sign Date: 08/17/2021 11:42:24 AM Ordering Provider: MIYA Trammell [facility] ([place]) CT KNEE W/O CONTRAST LEFTon 08-13-2021 CT [...] at the attachment of the intraosseous membrane. Cjwn-av-dcdqwqzk joint space narrowing with marginal and sizable [...] Date: 08/13/2021 1:20:34 PM Ordering Provider: MIYA Trammell [facility] ([place]) URINE BARRETT CULTURE (FELICITAS COL COUNT) ([id number])Ordered By: Director Of Music on 08-11-2021 Bacteria identified Cx Nom (U) Final report Normal [facility]; [facility] Work Phone: Comment on above: PATIENT NOT FASTINGP ERFORMED BY: [facility] Hhyxqb2243 [facility] [id number] Information: SRC:UC Bacteria identified Cx Nom (U) MUG Normal [facility]; [facility] Work Phone: Comment on above: Mixed urogenital arturo ra1,000 Colonies/mL PATIENT NOT FASTINGP ERFORMED BY: [facility] Sfgyfy2025 [facility] Rehabilitation InstituteVintedFormerly [facility] [id number] Information: SRC: Urinalysis, Office ([id number])Or dered By: Carlos Alberto Carrillo on 08-11-2021 [...] Phone: Nitrite Ql (U) Negative Normal Comprehens jethro [...] [facility] Work Phone: LIPID PANEL ([id number])Ordered B y: Director Of Music on 06-16-2021 Cholesterol [Mass/Vol] 166 mg/dL Normal 100-199 [facility]ensive [facility]; [facility] Work Phone: Comment on above: PATIENT WAS FASTINGP ERFORMED BY: BEREKET [facility] Msuduv5480 Rm RoadDublin [place] [id number] Cholesterol in HDL [Mass/Vol] 40 mg/dL Normal [facility]; [facility] Work Phone: Comment on above: PATIENT WAS FASTINGP ERFORMED BY: BEREKET [facility] Galcuv4263 Rm RoadDublin [place] [id number] Triglyceride [Mass/Vol] 94 mg/dL Normal 0-149 [facility]; [facility] Work Phone: Comment on above: PATIENT WAS FASTINGP ERFORMED BY: BEREKET [facility] Bkpwjf1834 Rm RoadDublin [place] [id number] LIPID PANEL (77921) 17 mg/dL Normal 5-40 Compr ensive Internal Medicine; [facility] Work Phone: Comment on above: PATIENT WAS FASTINGP ERFORMED BY: CB [facility] Dejwcb4860 Rm RoadDublin [place] [id number] LIPID PANEL (45295) 109 mg/dL Abnormal 0-99 [facility] SSDensive [facility]; [facility] Work Phone: Comment on above: PATIENT WAS FASTINGP ERFORMED BY: CB [facility] Nleeuk3699 Rm RoadDublin [place] [id number] LIPID PANEL (12687) 2.7 {ratio} Normal 0.0-3.6 [facility]; [facility] Work Phone: Comment on above: LDL/HDL Ratio Men Wo men 1/2 Avg.Risk 1.0 1.5 Avg.Risk 3.6 3.2 2X Avg.Risk 6.2 5.0 3X Avg.Risk 8.0 6.1 PATIENT WAS FASTINGP ERFORMED BY: CB [facility] Ksvnyw3950 R[address] RoadDublin [place] [id number] Metabolic Panel, Comprehensi ve (99450)Ordered By: Director Of Music on 06-16-2021 Albumin [Mass/Vol] 4.4 g/dL Normal 3.8-4.8 [facility] Internal [facility]; [facility] Work Phone: Comment on above: PATIENT WAS FASTINGP ERFORMED BY: CB [facility] Yqvhrc3826 Rm RoadDublin [place] [id number] Albumin/Globulin [Mass ratio] 1.8 {ratio} Normal 1.2-2.2 [facility]; [facility] Work Phone: Comment on above: PATIENT WAS FASTINGP ERFORMED BY: CB [facility] Iygszi7235 Rm RoadDublin [place] [id number] ALP [Catalytic activity/Vol] 73 U/L Normal 44-121 [facility]; [facility] Work Phone: Comment on above: Please note refere nce interval change PATIENT WAS FASTINGP ERFORMED BY: CB [facility] Dtbxwc5156 Rm RoadDublin [place] [id number] ALT [Catalytic activity/Vol] 33 U/L Normal 0-44 [facility]; [facility] Work Phone: Comment on above: PATIENT WAS FASTINGP ERFORMED BY: CB [facility] Dczdxr3354 R[address] RoadDublin [place] [id number] AST [Catalytic activity/Vol] 29 U/L Normal 0-40 [facility]; [facility] Work Phone: Comment on above: PATIENT WAS FASTINGP ERFORMED BY: CB [facility] Wjtyjv2076 R[address] RoadDublin [place] [id number] Bilirubin [Mass/Vol] 1.1 mg/dL Normal 0.0-1.2 [facility]; [facility] Work Phone: Comment on above: PATIENT WAS FASTINGP ERFORMED BY: CB [facility] Aayrce4579 [address] RoadDublin [place] [id number] Calcium [Mass/Vol] 9.8 mg/dL Normal 8.6-10.2 [facility] Internal [facility]; [facility] Work Phone: Comment on above: PATIENT WAS FASTINGP ERFORMED BY: BEREKET Oropeza6370 RmKindred HospitalPierreFormerly [facility] [id number] Chloride [Moles/Vol] 104 mmol/L Normal 96-106 Comp rehensive Internal Medicine; [facility] Work Phone: Comment on above: PATIENT WAS FASTINGP ERFORMED BY: BEREKET Oropeza6370 Rm [facility] [id number] CO2 [Moles/Vol] 23 mmol/L Normal 20-29 [facility]; [facility] Work Phone: Comment on above: PATIENT WAS FASTINGP ERFORMED BY: BEREKET Oropeza6370 [facility] [id number] Creatinine [Mass/Vol] 1.38 mg/dL Abnormal 0.76-1.27 [facility] prehensive Internal Medicine; [facility] Work Phone: Comment on above: PATIENT WAS FASTINGP ERFORMED BY: BEREKET Oropeza6370 [facility] [id number] GFR/1.73 sq M.predicted among blacks CKD-EPI (S/P/Bld) [Vol rate/Area] 62 mL/min/1.73 Normal Comprehensive Internal Medicine; [facility] Work Phone: Comment on above: In accordance with recommendations from the NKF-ASN Task force, [facility] is in the [facility] of updating its eGFR calculation to the 2020 CKD-EPI creatinine equation that estimates kidney function without a race variable. PATIENT WAS FASTINGP ERFORMED BY: BEREKET Monroelin6370 [facility] [id number] GFR/1.73 sq M.predicted among non-blacks CKD-EPI (S/P/Bld) [Vol rate/Area] 54 mL/min/1.73 Abnormal [facility]; [facility] Work Phone: Comment on above: PATIENT WAS FASTINGP ERFORMED BY: BEREKET Haddad Sghdal0425 [facility] [id number] Globulin (S) [Mass/Vol] 2.4 g/dL Normal 1.5-4.5 [facility] Internal Medicine; [facility] Work Phone: Comment on above: PATIENT WAS FASTINGP ERFORMED BY: BEREKET Labariaharmony Kzxufl2948 [facility] [id number] Glucose [Mass/Vol] 87 mg/dL Normal 65-99 [facility] Internal Medicine; [facility] Work Phone: Comment on above: PATIENT WAS FASTINGP ERFORMED BY: BEREKET Labco Bixjli0952 [facility] [id number] Potassium [Moles/Vol] 4.4 mmol/L Normal 3.5-5.2 [facility]; [facility] Work Phone: Comment on above: PATIENT WAS FASTINGP ERFORMED BY: BEREKET Labokharmony MonroeOsundk0266 [facility] [id number] Protein [Mass/Vol] 6.8 g/dL Normal 6.0-8.5 [facility] Internal Medicine; [facility] Work Phone: Comment on above: PATIENT WAS FASTINGP ERFORMED BY: BEREKET Labpaige MonroeTdyqba5108 [facility] [id number] Sodium [Moles/Vol] 139 mmol/L Normal 134-144 [facility] Internal Medicine; [facility] Work Phone: Comment on above: PATIENT WAS FASTINGP ERFORMED BY: BEREKET Labco Bahoxs0079 [facility] [id number] Urea nitrogen [Mass/Vol] 17 mg/dL Normal 8-27 [facility] Internal Medicine; [facility] Work Phone: Comment on above: PATIENT WAS FASTINGP ERFORMED BY: BEREKET Labco Rpufyq8010 [facility] [id number] Urea nitrogen/Creatinine [Mass ratio] 12 mg/mg Normal 10-24 [facility]; [facility] Work Phone: Comment on above: PATIENT WAS FASTINGP ERFORMED BY: BEREKET Labco Jmvlcz8689 [facility] [id number] PSA (PROSTATE SPECIFIC ANTIG EN) (V76.44)Ordered By: Director Of Music on 06-16-2021 Prostate specific Ag [Mass/Vol] 1.2 ng/mL Normal 0.0-4.0 [facility]; [facility] Work Phone: Comment on above: Fahad ECLIA methodol ogy. .According to the [place] [employer], Serum PSA shoulddecrease and remain [...] malignant disease. PATIENT WAS FASTINGP ERFORMED BY: [id number] [facility] [id number] TSH (THYROID STIMULATING HOR JOHANA) ([id number])Ordered By: Director Of Music on 06-16-2021 TSH Qn 5.890 {uIU/mL} Abnormal 0.450-4.50 0 [facility]; [facility] Work Phone: Comment on above: PATIENT WAS FASTINGP ERFORMED BY: [employer]70 [facility] [id number] TSH (THYROID STIMULATING HOR JOHANA) ([id number])Ordered By: Director Of Music on 04-23-2021 TSH Qn 4.210 {uIU/mL} Normal 0.450-4.50 0 [facility]; [facility] Work Phone: Comment on above: PATIENT NOT FASTINGP ERFORMED BY: [employer] Therapeutix6370 [facility] [id number] TSH (THYROID STIMULATING HOR JOHANA) ([id number])Ordered By: Director Of Music on 02-05-2021 TSH Qn 8.560 {uIU/mL} Abnormal 0.450-4.50 0 [facility]; [facility] Work Phone: Comment on above: PATIENT NOT FASTINGP ERFORMED BY: [employer] [facility] [id number] PSA (PROSTATE SPECIFIC ANTIG EN) (V76.44)Ordered By: Director Of Music on 05-24-2019 Prostate specific Ag [Mass/Vol] 1.5 ng/mL Normal 0.0-4.0 [facility] Work Phone: Comment on above: Fahad ECLIA methodol ogy. .According to the [place] [employer], Serum PSA shoulddecrease and remain [...] disease. PATIENT NOT FASTINGP ERFORMED BY: BEREKET [employer]6370 Rm AudioCatchFormerly [facility] [id number] Lipid Panel ([id number])Ordered B y: Director Of Music on 03-13-2019 Cholesterol [Mass/Vol] 150 mg/dL Normal 100-199 [facility] Internal Medicine Work Phone: Comment on above: PATIENT WAS FASTINGP ERFORMED BY: BEREKET [employer]6370 Rm AudioCatchFormerly [facility], [facility] [id number] Cholesterol in HDL [Mass/Vol] 47 mg/dL Normal [facility] Work Phone: Comment on above: PATIENT WAS FASTINGP ERFORMED BY: BEREKET LabReduxio Mpnpic3630 Rm AudioCatchFormerly [facility], [facility] [id number] Cholesterol in LDL [Mass/Vol] 93 mg/dL Normal 0-99 [facility] Work Phone: Comment on above: PATIENT WAS FASTINGP ERFORMED BY: [employer]ugs Uxoadz2589 [facility] [id number] Cholesterol in LDL/Cholesterol in HDL [Mass ratio] 2.0 {ratio} Normal 0.0-3.6 [facility] Work Phone: Comment on above: LDL/HDL Ratio Men Wo men 1/2 Avg.Risk 1.0 1.5 Avg.Risk 3.6 3.2 2X Avg.Risk 6.2 5.0 3X Avg.Risk 8.0 6.1 PATIENT WAS FASTINGP ERFORMED BY: BEREKET LabCoharmony Kzlwcw3049 Rm RoadDublin [place] [id number] Cholesterol in VLDL [Mass/Vol] 10 mg/dL Normal 5-40 [facility] Work Phone: Comment on above: PATIENT WAS FASTINGP ERFORMED BY: BEREKET [facility] Phtuul1291 Rm RoadDublin [place] [id number] Triglyceride [Mass/Vol] 52 mg/dL Normal 0-149 [facility] Work Phone: Comment on above: PATIENT WAS FASTINGP ERFORMED BY: BEREKET LabCoharmony MonroeIxiexn7784 Rm RoadDublin [place] [id number] Metabolic Panel, Comprehensi ve ([id number])Ordered By: Director Of Music on 03-13-2019 Albumin [Mass/Vol] 3.9 g/dL Normal 3.6-4.8 [facility] Internal Medicine Work Phone: Comment on above: PATIENT WAS FASTINGP ERFORMED BY: BEREKET LabCoharmony MonroeBdyrpn4117 Rm RoadDublin [place] [id number] Albumin/Globulin [Mass ratio] 1.6 {ratio} Normal 1.2-2.2 [facility] Work Phone: Comment on above: PATIENT WAS FASTINGP ERFORMED BY: BEREKET [facility] Bbngju5186 Rm RoadDublin [place] [id number] ALP [Catalytic activity/Vol] 79 [iU]/L Normal 39-117 [facility] Work Phone: Comment on above: PATIENT WAS FASTINGP ERFORMED BY: BEREKET [facility] Awkljv4921 Rm RoadDublin [place] [id number] ALP [Catalytic activity/Vol] 79 U/L Normal 39-117 [facility]; [facility] Work Phone: Comment on above: PATIENT WAS FASTINGP ERFORMED BY: BEREKET [facility] Rwfplh5226 Rm RoadDublin [place] [id number] ALT [Catalytic activity/Vol] 35 [iU]/L Normal 0-44 [facility] Work Phone: Comment on above: PATIENT WAS FASTINGP ERFORMED BY: BEREKET LabCo Nxgxro3924 Rm RoadDublin [place] [id number] ALT [Catalytic activity/Vol] 35 U/L Normal 0-44 [facility]; [facility] Work Phone: Comment on above: PATIENT WAS FASTINGP ERFORMED BY: BEREKET LabCo Fktdjf9755 Rm RoadDublin [place] [id number] AST [Catalytic activity/Vol] 33 [iU]/L Normal 0-40 [facility] Work Phone: Comment on above: PATIENT WAS FASTINGP ERFORMED BY: BEREKET LabAria Wlgynz4055 Rm RoadDublin [place] [id number] AST [Catalytic activity/Vol] 33 U/L Normal 0-40 [facility]; [facility] Work Phone: Comment on above: PATIENT WAS FASTINGP ERFORMED BY: BEREKET RiveraFult[facility] Kenjot3215 Rm RoadDublin [place] [id number] Bilirubin [Mass/Vol] 1.1 mg/dL Normal 0.0-1.2 [facility] Work Phone: Comment on above: PATIENT WAS FASTINGP ERFORMED BY: BEREKET Haddad Qcsoqb3843 Rm RoadDublin [place] [id number] Calcium [Mass/Vol] 9.3 mg/dL Normal 8.6-10.2 [facility] Internal Medicine Work Phone: Comment on above: PATIENT WAS FASTINGP ERFORMED BY: BEREKET LabFult[facility] Pijpir0042 Rm RoadDublin [place] [id number] Chloride [Moles/Vol] 106 mmol/L Normal 96-106 [facility] Work Phone: Comment on above: PATIENT WAS FASTINGP ERFORMED BY: BEREKET LabCo Aiipxl5503 Rm RoadDublin [place] [id number] CO2 [Moles/Vol] 21 mmol/L Normal 20-29 [facility] Internal Medicine Work Phone: Comment on above: PATIENT WAS FASTINGP ERFORMED BY: [facility] Sqzwex0745 Rm RoadDublin [place] [id number] Creatinine [Mass/Vol] 1.16 mg/dL Normal 0.76-1.27 [facility] Internal Medicine Work Phone: Comment on above: PATIENT WAS FASTINGP ERFORMED BY: [facility] Ykzehr4273 Rm RoadDublin [place] [id number] GFR/1.73 sq M predicted among blacks CKD-EPI (S/P/Bld) [Vol rate/Area] 78 mL/min/1.73 Normal [facility] Work Phone: Comment on above: PATIENT WAS FASTINGP ERFORMED BY: LabCo Stiqmv4633 Rm RoadDublin [place] [id number] GFR/1.73 sq M predicted among non-blacks CKD-EPI (S/P/Bld) [Vol rate/Area] 68 mL/min/1.73 Normal [facility] Internal Medicine Work Phone: Comment on above: PATIENT WAS FASTINGP ERFORMED BY: LabFult[facility] Xeeayv6450 Rm RoadDublin [place] [id number] Globulin (S) [Mass/Vol] 2.4 g/dL Normal 1.5-4.5 [facility] Internal Medicine Work Phone: Comment on above: PATIENT WAS FASTINGP ERFORMED BY: [facility] Nfpyul4813 Rm RoadDublin [place] [id number] Glucose [Mass/Vol] 85 mg/dL Normal 65-99 [facility] Internal Medicine Work Phone: Comment on above: PATIENT WAS FASTINGP ERFORMED BY: [facility] Dyafsb4102 R[address] RoadDublin [place] [id number] Potassium [Moles/Vol] 4.1 mmol/L Normal 3.5-5.2 [facility] Internal Medicine Work Phone: Comment on above: PATIENT WAS FASTINGP ERFORMED BY: [facility] Vyhknc8140 Rm RoadDublin [place] [id number] Protein [Mass/Vol] 6.3 g/dL Normal 6.0-8.5 [facility] Internal Medicine Work Phone: Comment on above: PATIENT WAS FASTINGP ERFORMED BY: [facility] Zyvqcc1555 [facility] [id number] Sodium [Moles/Vol] 140 mmol/L Normal 134-144 [facility] Internal Medicine Work Phone: Comment on above: PATIENT WAS FASTINGP ERFORMED BY: [facility] Iyztrb9608 [facility] [id number] Urea nitrogen [Mass/Vol] 21 mg/dL Normal 8-27 [facility] Work Phone: Comment on above: PATIENT WAS FASTINGP ERFORMED BY: [facility] Avgsmh5958 [facility] [id number] Urea nitrogen/Creatinine [Mass ratio] 18 mg/mg Normal 10-24 [facility] Work Phone: Comment on above: PATIENT WAS FASTINGP ERFORMED BY: [facility] Idgioi4830 [facility] [id number] Basic Metabolic Profile (BMP )Ordered By: Director Of Music on 08-04-2018 Basic metabolic 2000 panel 76 mL/min Normal [facility] Work Phone: Comment on above: GFR Calc DR CHINO ORDERED LI SEA LIPIDMARY CIESA ORDERED LIPID [facility] [address] [place], [place], [id number] Basic metabolic 2000 panel 62 mL/min Normal [facility] Work Phone: Comment on above: Non- GFR Calc DR CHINO ORDERED LI SEA LIPIDMARY CIESA ORDERED LIPID [facility] [address]kw[address] [place], [place], [address] Basic metabolic 2000 panel 1.25 mg/dL Normal 0.70-1.30 [facility] Work Phone: Comment on above: The validity of the calculated GFR AND GFRAA in patients over70 years has not been determined. Clinical correlation isessential. DR CHINO ORDERED LI SEA LIPIDMARY CIESA ORDERED LIPID [facility] [address] [place], [place], [address] Basic metabolic 2000 panel 23.0 mmol/L Normal 21.0-32.0 [facility] Work Phone: Comment on above: DR CHINO ORDERED LI SEA LIPIDMARY CIESA ORDERED LIPID [facility] [address] [place], [address] Basic metabolic 2000 panel 17 mg/dL Normal 7-18 [facility] Work Phone: Comment on above: DR CHINO ORDERED LI SEA LIPIDMARY CIESA ORDERED LIPID [facility] Eyweskklap[address] [place], [place], [id number] Basic metabolic 2000 panel 86 mg/dL Normal 74-106 [facility] Work Phone: Comment on above: Please note revised GLUCOSE reference range yidfntydw78/02/2018. DR CHINO ORDERED LI SEA LIPIDMARY CIESA ORDERED LIPID [facility] [address] [place], [address] Basic metabolic 2000 panel 4.2 mmol/L Normal 3.5-5.1 [facility] Work Phone: Comment on above: DR CHINO ORDERED LI SEA LIPIDMARY CIESA ORDERED LIPID [facility] [address]ux[address] [place], [address] Basic metabolic 2000 panel 141 mmol/L Normal 136-145 [facility] Work Phone: Comment on above: DR CHINO ORDERED LI SEA LIPIDMARY CIESA ORDERED LIPID [facility] Hy[address]rucd[address] [place], [address] Basic metabolic 2000 panel 8.4 mg/dL Abnormal 8.5-10.1 [facility] Work Phone: Comment on above: DR CHINO ORDERED LI SEA LIPIDMARY CIESA ORDERED LIPID [facility] C[address] [place], [address] Basic metabolic 2000 panel 13.6 {RATIO} Normal 10-20 [facility] Work Phone: Comment on above: DR CHINO ORDERED LI SEA LIPIDMARY CIESA ORDERED LIPID [facility] [address]af[address] [place], [place], [id number] Basic metabolic 2000 panel 6 1 Normal 5-15 [facility] Work Phone: Comment on above: DR CHINO ORDERED LI SEA LIPIDMARY CIESA ORDERED LIPID [facility] Z[address]tanskz[address] [place], [address] Basic metabolic 2000 panel 112 mmol/L Abnormal 98-107 [facility] Work Phone: Comment on above: DR CHINO ORDERED LI SEA LIPIDMARY CIESA ORDERED LIPID [facility] [address] [place], [address] Lipid ProfileOrdered By: Shaunna tem Stacker And Sorter Operator on 08-04-2018 Cholesterol in HDL mass conc 41 mg/dL Normal [facility] Work Phone: Comment on above: The drugs N-Acetylcy steine and Metamizole may falselydepress this assay. Reference Range HDL <40 mg/dL Low HDL Cholesterol HDL >or= 60 mg/dL High HDL Cholesterol DR CHINO ORDERED LI SEA LIPIDMARY CIESA ORDERED LIPID [facility] [address] [place], [address] Cholesterol in LDL mass conc 42 mg/dL Normal 0-130 [facility] Work Phone: Comment on above: DR CHINO ORDERED LI SEA LIPIDMARY CIESA ORDERED LIPID [facility] K[address]ktgxlks[address] [place], [address](612) Cholesterol in VLDL [Mass/Vol] 10 mg/dL Normal 5-40 [facility] Work Phone: Comment on above: DR CHINO ORDERED ARLETTE SEA LIPIDMARY CIESA ORDERED LIPID [facility] [address] [place], [address](457) Cholesterol mass conc 93 mg/dL Normal Com prehensive Internal Medicine Work Phone: Comment on above: <200 mg/dL Desirable 200-240 mg/dL Borderline >240 mg/dL High Risk DR CHINO ORDERED LI SEA LIPIDMARY CIESA ORDERED LIPID [facility] Bilctsbfao[address] [place], [place], [id number] Triglyceride mass conc 50 mg/dL Normal Co mprehensive Internal Medicine Work Phone: Comment on above: The drugs N-Acetylcy steine and Metamizole may falselydepress this assay.Serum Triglycerides Reference Interval Normal <150 mg/dL Borderline high 150 - 199 mg/dL High 200 - 499 mg/dL Very High > or = 500 mg/dL DR CHINO ORDERED LI SEA LIPIDMARY CIESA ORDERED LIPID [facility] F[address]ltkbwa[address] [place], [address] Lipid Profile 10 mg/dL Normal 5-40 Comprehensi ve Internal Medicine Work Phone: Comment on above: DR CHINO ORDERED ARLETTE SEA LIPIDMARY CIESA ORDERED LIPID [facility] [address] [place], [address] Liver ProfileOrdered By: Shaunna tem Stacker And Sorter Operator on 08-04-2018 Albumin mass conc 3.6 g/dL Normal 3.2-5.0 Compreh ensive Internal Medicine Work Phone: Comment on above: DR CHINO ORDERED ARLETTE SEA LIPIDMARY CIESA ORDERED LIPID [facility] Y[address]rv[address] [place], [address] ALP enzyme act/vol 81 U/L Normal 45-117 Compre hensive Internal Medicine Work Phone: Comment on above: DR CHINO ORDERED ARLETTE SEA LIPIDMARY CIESA ORDERED LIPID [facility] Bmesytifyc[address] [place], [address] ALT enzyme act/vol 65 U/L Abnormal 16-61 Compre [facility] Internal [facility] Work Phone: Comment on above: DR CHINO ORDERED LI SEA LIPIDMARY CIESA ORDERED LIPID [facility] E[address]eshdp[address] [place], [place], [address] AST enzyme act/vol 41 U/L Abnormal 15-37 [facility] Internal Medicine Work Phone: Comment on above: DR CHINO ORDERED LI SEA LIPIDMARY CIESA ORDERED LIPID [facility] V[address]zgq[address] [place], [place], [address] Bilirubin mass conc 1.10 mg/dL Abnormal 0.20-1.00 [facility] Internal Medicine Work Phone: Comment on above: DR CHINO ORDERED LI SEA LIPIDMARY CIESA ORDERED LIPID [facility] Byvasvucbd[address] [place], [place], [address] Bilirubin.direct mass conc 0.34 mg/dL Abnormal 0.00-0.30 [facility] Internal Medicine Work Phone: Comment on above: DR CHINO ORDERED LI SEA LIPIDMARY CIESA ORDERED LIPID [facility] [address] [place], [place], [address] Globulin mass conc (S) 3.3 g/dL Normal 2.2-4.2 [facility] Internal Medicine Work Phone: Comment on above: DR CHINO ORDERED LI SEA LIPIDMARY CIESA ORDERED LIPID [facility] [address]ce[address] [place], [place], [address] Hepatic function 2000 panel - Serum or Plasma 6.9 g/dL Normal 6.4-8.2 [facility] Internal Medicine Work Phone: Comment on above: DR CHINO ORDERED LI SEA LIPIDMARY CIESA ORDERED LIPID [facility] [address] [place], [place], [address] Hepatic function 2000 panel - Serum or Plasma 81 U/L Normal 45-117 [facility] Work Phone: Comment on above: DR CHINO ORDERED LI SEA LIPIDMARY CIESA ORDERED LIPID [facility] [address]yyk[address] [place], [address] Protein mass conc 6.9 g/dL Normal 6.4-8.2 Compreh ensive Internal Medicine Work Phone: Comment on above: DR CHINO ORDERED ARLETTE OSEI LIPIDSTEFF JENKINSA ORDERED LIPID [facility] [address] [place], [address] Thyroid Stim Hormone (TSH)Or dered By: Director Of Music on 08-04-2018 Thyrotropin Qn 3.00 {uIU/mL} Normal 0.358-3.74 Compreh ensive Internal Medicine Work Phone: Comment on above: DR CHINO ORDERED ARLETTE OSEI LIPIDMARY CIESA ORDERED LIPID [facility] [address]it[address] [place], [address] CALCIFEDIOL ([id number])Ordered B y: Director Of Music on 05-21-2018 25-Hydroxyvitamin D2+25-Hydroxyvitamin D3 mass conc 37.9 ng/mL Normal 30.0-100.0 [facility] Work Phone: Comment on above: Vitamin D deficiency has been defined by the [place] ofMedicine and an Endocrine Society practice guideline as alevel of serum 25-OH vitamin D less than 20 ng/mL (1,2).The Endocrine Society went on to further define vitamin Dinsufficiency as a level between 21 and 29 ng/mL (2).1. IOM ([place] of Medicine). 2010. Dietary reference intakes for calcium and D. [place]: The National Academies Press.2. Alaina MF, Joan NC, Keily ANGLIN, et al. Evaluation, treatment, and prevention of vitamin D deficiency: an Endocrine Society clinical practice guideline. JCEM. 2010; 96(7):1911-30. PATIENT NOT FASTINGP ERFORMED BY: [facility] Ewzgzc2537 [facility] [id number] CBC & PLATELETS (AUTO) ([id number])Ordered By: Director Of Music on 05-21-2018 Erythrocyte distribution width Ratio (RBC) 14.6 % Normal 12.3-15.4 [facility] Work Phone: Comment on above: PATIENT NOT FASTINGP ERFORMED BY: CB [facility] Jzffiv9990 [address] RoadDublin [place] [id number] Hematocrit Volume Fraction (Bld) 46.5 % Normal 37.5-51.0 [facility] Internal Medicine Work Phone: Comment on above: PATIENT NOT FASTINGP ERFORMED BY: CB [facility] Zgtnpo8455 [address] RoadDublin [place] [id number] Hemoglobin mass conc (Bld) 15.4 g/dL Normal 13.0-17.7 [facility] Internal Medicine Work Phone: Comment on above: PATIENT NOT FASTINGP ERFORMED BY: CB [facility] Ofhjoc7590 R[address] RoadDublin [place] [id number] MCH Entitic mass (RBC) 28.9 pg Normal 26.6-33.0 [facility] Internal Medicine Work Phone: Comment on above: PATIENT NOT FASTINGP ERFORMED BY: CB [facility] Rtmjwq9424 Rm RoadDublin [place] [id number] MCHC mass conc (RBC) 33.1 g/dL Normal 31.5-35.7 [facility] Internal Medicine Work Phone: Comment on above: PATIENT NOT FASTINGP ERFORMED BY: CB [facility] Oknmez2487 R[address] RoadDublin [place] [id number] MCV Entitic volume (RBC) 87 fL Normal 79-97 [facility] Internal Medicine Work Phone: Comment on above: PATIENT NOT FASTINGP ERFORMED BY: CB [facility] Nivdny1724 [address] RoadDublin [place] [id number] Platelets #/vol (Bld) 192 {x10E3/uL} Normal 150-379 [facility] Internal Medicine Work Phone: Comment on above: PATIENT NOT FASTINGP ERFORMED BY: CB [facility] Gjokcc8483 [address] RoadDublin [place] [id number] Platelets (Bld) [#/Vol] 192 10*3/uL Normal 150-379 [facility]; [facility] Internal Medicine Work Phone: Comment on above: PATIENT NOT FASTINGP ERFORMED BY: BEREKET [facility] Boirrb5848 R[address] RoadDublin [place] [id number] RBC #/vol (Bld) 5.32 {x10E6/uL} Normal 4.14-5.80 [facility] Work Phone: Comment on above: PATIENT NOT FASTINGP ERFORMED BY: CB [facility] Yjpdmg3843 R[address] RoadDublin [place] [id number] RBC (Bld) [#/Vol] 5.32 10*6/uL Normal 4.14-5.80 Compr ensive Internal Medicine; [facility] Work Phone: Comment on above: PATIENT NOT FASTINGP ERFORMED BY: CB [facility] Tpogdc0810 [address] RoadDublin [place] [id number] WBC #/vol (Bld) 10.9 {x10E3/uL} Abnormal 3.4-10.8 [facility] Work Phone: Comment on above: PATIENT NOT FASTINGP ERFORMED BY: CB [facility] Tlgtmd7220 R[address] RoadDublin [place] [id number] WBC (Bld) [#/Vol] 10.9 10*3/uL Abnormal 3.4-10.8 Compr ensive Internal Medicine; [facility] Work Phone: Comment on above: PATIENT NOT FASTINGP ERFORMED BY: CB [facility] Neelkh8129 Rm RoadWake Forest Baptist Health Dav[facility] Hospitalin [place] [id number] IRON ([id number])Ordered By: Syst em Stacker And Sorter Operator on 05-21-2018 Iron mass conc 112 ug/dL Normal 38-169 Comprehens jethro Internal Medicine Work Phone: Comment on above: PATIENT NOT FASTINGP ERFORMED BY: CB [facility] Wqeisl1484 Rm RoadDublin [place] [id number] TSH (THYROID STIMULATING HOR JOHANA) ([id number])Ordered By: Director Of Music on 05-21-2018 Thyrotropin Qn 5.030 {uIU/mL} Abnormal 0.450-4.50 0 [facility] Work Phone: Comment on above: PATIENT NOT FASTINGP ERFORMED BY: [facility] Hzuopd8368 [facility] [id number] Free L8Idswhuj By: System Winter gonzalez on 04-07-2018 T3 free mass conc 2.5 pg/mL Normal 2.18-3.98 Compreh ensive Internal Medicine Work Phone: Comment on above: Comments: DO NOT DO THESE UNTIL ORDERED TSH T4 [facility] [address]uinok[address] [place], [address] PSA,Total - Annual ScreenOrd ered By: Director Of Music on 04-07-2018 Prostate specific Ag mass conc 1.06 ng/mL Normal 0.00-4.00 [facility] Work Phone: Comment on above: This test was perfor med using the TPSA assay method for [employer] chemistry system. Values obtained with differentassay methods cannot be used interchangably.When changing PSA assays in the course of monitoring apatient, additional sequential testing should be carriedout to confirm baseline values. Comments: DO NOT DO THESE UNTIL MATTI ORDERED TSH [facility]4 [facility] [address] [place], [address] T4 Free DirectOrdered By: Sy stem Stacker And Sorter Operator on 04-07-2018 T4 free mass conc 1.17 ng/dL Normal 0.76-1.46 Compreh ensive Internal Medicine Work Phone: Comment on above: Comments: DO NOT DO THESE UNTIL CHINO ORDERED TSH [facility]4 [facility] [address] [place], [address] T4 Total, ThyroxinOrdered By : Director Of Music on 04-07-2018 T4 mass conc 12.4 ug/dL Abnormal 4.5-12.1 Comprehensiv e Internal Medicine Work Phone: Comment on above: Comments: DO NOT DO THESE UNTIL MATTI ORDERED TSH T4 [facility] [address] [place], [address] Thyroid Stim Hormone (TSH)Or dered By: Director Of Music on 04-07-2018 Thyrotropin Qn 4.02 {uIU/mL} Abnormal 0.358-3.74 Compreh ensive Internal Medicine Work Phone: Comment on above: Comments: DO NOT DO THESE UNTIL CHINO ORDERED [facility]SH [facility] [address] [place], [id number] Free C0Vwwttts By: System Winter gonzalez on 02-16-2018 T3 free mass conc 2.5 pg/mL Normal 2.18-3.98 Compreh ensive Internal Medicine Work Phone: Comment on above: [facility] [address] [place], [id number] PSA,Total - Annual ScreenOrd ered By: Director Of Music on 02-16-2018 Prostate specific Ag mass conc 1.68 ng/mL Normal 0.00-4.00 [facility] Work Phone: Comment on above: This test was perfor med using the TPSA assay method for [employer] chemistry system. Values obtained with differentassay methods cannot be used interchangably.When changing PSA assays in the course of monitoring apatient, additional sequential testing should be carriedout to confirm baseline values. [facility] [address] [place], [id number] T4 Free DirectOrdered By: Sy stem Stacker And Sorter Operator on 02-16-2018 T4 free mass conc 1.09 ng/dL Normal 0.76-1.46 Compreh ensive Internal Medicine Work Phone: Comment on above: [facility] [address] [place], [phone] Thyroid Stim Hormone (TSH)Or dered By: Director Of Music on 02-16-2018 Thyrotropin Qn 3.72 {uIU/mL} Normal 0.358-3.74 Compreh ensive Internal Medicine Work Phone: Comment on above: [facility] [address] [place], [address] Basic Metabolic Profile (BMP )Ordered By: Director Of Music on 01-31-2018 Basic metabolic 2000 panel 70 mL/min Normal [facility] Work Phone: Comment on above: GFR Calc [facility] [address] [place], [place], [phone] Basic metabolic 2000 panel 104 mg/dL Normal 74-106 [facility] Work Phone: Comment on above: Fasting Glucose resu lt from 100 to 125 mg/dLsuggests IMPAIRED HOMEOSTASIS per A.D.A. criteria.Please note revised GLUCOSE reference range [id number]/02/2018. [facility] [address] [place], [place], [address] Basic metabolic 2000 panel 1.33 mg/dL Abnormal 0.70-1.30 [facility] Work Phone: Comment on above: The validity of the calculated GFR AND GFRAA in patients over70 years has not been determined. Clinical correlation isessential. [facility] [address] [place], [place], [id number] Basic metabolic 2000 panel 21 mg/dL Abnormal 7-18 [facility] Work Phone: Comment on above: [facility] [address] [place], [place], [id number] Basic metabolic 2000 panel 66.75 ml/min Normal [facility] Work Phone: Comment on above: [facility] [address] [place], [place], [address] Basic metabolic 2000 panel 8 1 Normal 5-15 [facility] Work Phone: Comment on above: [facility] [address] [place], [place], [phone] Basic metabolic 2000 panel 24.0 mmol/L Normal 21.0-32.0 [facility] Work Phone: Comment on above: [facility] [address] [place], [place], [address] Basic metabolic 2000 panel 112 mmol/L Abnormal 98-107 [facility] Work Phone: Comment on above: [facility] [address] [place], [place], [phone] Basic metabolic 2000 panel 4.3 mmol/L Normal 3.5-5.1 [facility] Work Phone: Comment on above: [facility] [address] [place], [place], [address] Basic metabolic 2000 panel 144 mmol/L Normal 136-145 [facility] Work Phone: Comment on above: [facility] [address] [place], [place], [address] Basic metabolic 2000 panel 9.0 mg/dL Normal 8.5-10.1 [facility] Work Phone: Comment on above: [facility] [address] [place], [place], [address] Basic metabolic 2000 panel 15.8 {RATIO} Normal 10-20 [facility] Work Phone: Comment on above: [facility] [address] [place], [place], [address] Basic metabolic 2000 panel 58 mL/min Abnormal [facility] Work Phone: Comment on above: Non- GFR Calc [facility] [address] [place], [place], [address] CBC W/Diff, AutomatedOrdered By: Director Of Music on 01-31-2018 Absolute Neut 5.9 {X10_3/uL} Normal 2.0-7.7 Compreh ensive Internal Medicine Work Phone: Comment on above: [facility] [address] [place], [place], [phone] Basophils/100 WBC (Bld) 0.4 % Normal 0-1 [facility] Work Phone: Comment on above: [facility] [address] [place], [place], [phone] Eosinophils/100 WBC (Bld) 2.7 % Normal 0-5 [facility] Work Phone: Comment on above: [facility] [address] [place], [place], [address] Erythrocyte distribution width Ratio (RBC) 14.3 % Normal 11.6-14.6 [facility] Work Phone: Comment on above: [place] [address] [place], [place], [phone] Hematocrit Volume Fraction (Bld) 47.6 % Normal 40-54 [facility] Work Phone: Comment on above: [place] [address] [place], [place], [address] Hemoglobin mass conc (Bld) 16.1 g/dL Normal 13.0-16.5 [facility] Work Phone: Comment on above: [place] [address] [place], [place], [address] IM GRAN % 0.300 % Normal 0.0-0.9 [facility] Work Phone: Comment on above: IG% - Immature Granu locytes (promyelocytes, myelocytes andmetamyelocytes) > 1% indicates that a LEFT SHIFT is Present. [place] [address] [place], [place], [phone] Lymphocytes #/vol (Bld) 3.07 {X10_3/ul} Normal 0.83-4.51 [facility] Work Phone: Comment on above: [facility] [address] [place], [address] Lymphocytes/100 WBC (Bld) 30.5 % Normal 19-41 [facility] Work Phone: Comment on above: [place] [address] [place], [place], [phone](193 MCH Entitic mass (RBC) 28.3 pg Normal 27.0-32.0 Co mprehensive Internal Medicine Work Phone: Comment on above: [facility] [address] [place], [address] MCHC mass conc (RBC) 33.8 {g/gl} Normal 32-36 Com prehensive Internal Medicine Work Phone: Comment on above: [facility] [address] [place], [address] MCV Entitic volume (RBC) 83.7 fL Normal 80-94 [facility] Work Phone: Comment on above: [facility] [address] [place], [address] Monocytes/100 WBC (Bld) 7.8 % Normal 0-10 [facility] Work Phone: Comment on above: [facility] [address] [place], [address] Neutrophils/100 WBC (Bld) 58.3 % Normal 47-70 [facility] Work Phone: Comment on above: [facility] [address] [place], [address] Platelet mean volume Entitic volume (Bld) 9.7 fL Normal 6.2-12.0 Comprehensi Internal Medicine Work Phone: Comment on above: [facility] [address] [place], [address] Platelets #/vol (Bld) 154 10*3/uL Normal 150-450 [facility] Work Phone: Comment on above: [facility] [address] [place], [address] RBC #/vol (Bld) 5.69 {M/mm3} Normal 4.6-6.2 Compreh ensive Internal Medicine Work Phone: Comment on above: [facility] [address] [place], [place], [address] RDW SD 43.6 fL Normal 35.1-43.9 [facility] Work Phone: Comment on above: [facility] [address] [place], [address] WBC #/vol (Bld) 10.1 10*3/uL Normal 4.4-11.0 Compreh ensive Internal Medicine Work Phone: Comment on above: [facility] [address] [place], [address] Troponin-IOrdered By: Director Of Music on 01-31-2018 Troponin I.cardiac mass conc ng/mL Normal [facility] Work Phone: Comment on above: TROPONIN-I EXPECTED VALUES <0.045 Negative 0.045 - 0.590 Consistent with Cardiac Damage > OR = 0.600 Critical Value Not every elevated troponin is indicative of TN. Thesevalues should be used with clinical judgement in examiningthe patient's clinical picture for diagnosis. To establisha diagnosis of TN versus myocardial injury, there must be ademonstrated rise and/or fall in the troponin values, inaddition to ischemic symptoms, EKG changes, new regionalwall motion abnormality, and/or angiographical evidence. PLEASE NOTE: REFERENCE RANGES EDITED 17 [facility] [address] [place], [place], [phone] Basic Metabolic Profile (BMP )Ordered By: Director Of Music on 01-29-2018 Basic metabolic 2000 panel 9.1 mg/dL Normal 8.5-10.1 [facility] Work Phone: Comment on above: Comments: For heart cathComments: [facility] [address] [place], [place], [address] Basic metabolic 2000 panel 1.08 mg/dL Normal 0.70-1.30 [facility] Work Phone: Comment on above: The validity of the calculated GFR AND GFRAA in patients over70 years has not been determined. Clinical correlation isessential. Comments: For heart cathComments: For [facility] [address] [place], [place], [address] Basic metabolic 2000 panel 79 mg/dL Normal 74-106 [facility] Work Phone: Comment on above: Please note revised GLUCOSE reference range [id number]/02/2018. Comments: For heart cathComments: For [facility] [address] [place], [place], [address] Basic metabolic 2000 panel 10 1 Normal 5-15 [facility] Work Phone: Comment on above: Comments: For heart cathComments: For [facility] [address] [place], [place], [phone] Basic metabolic 2000 panel 22.0 mmol/L Normal 21.0-32.0 [facility] Work Phone: Comment on above: Comments: For heart cathComments: For [facility] [address] [place], [place], [address] Basic metabolic 2000 panel 74 mL/min Normal [facility] Work Phone: Comment on above: Non- GFR Calc Comments: For heart cathComments: For [facility] [address] [place], [place], [address] Basic metabolic 2000 panel 4.4 mmol/L Normal 3.5-5.1 [facility] Work Phone: Comment on above: Comments: For heart cathComments: For [facility] [address] [place], [place], [address] Basic metabolic 2000 panel 141 mmol/L Normal 136-145 [facility] Work Phone: Comment on above: Comments: For heart cathComments: For [facility] [address] [place], [place], [address] Basic metabolic 2000 panel 16.7 {RATIO} Normal 10-20 [facility] Work Phone: Comment on above: Comments: For heart cathComments: For [facility] [address] [place], [place], [address] Basic metabolic 2000 panel 90 mL/min Normal [facility] Work Phone: Comment on above: GFR Calc Comments: For heart cathComments: For [facility] [address] [place], [place], [address] Basic metabolic 2000 panel 18 mg/dL Normal 7-18 [facility] Work Phone: Comment on above: Comments: For heart cathComments: For [facility] [address] [place], [place], [address] Basic metabolic 2000 panel 109 mmol/L Abnormal 98-107 [facility] Work Phone: Comment on above: Comments: For heart cathComments: For [facility] [address] [place], [address] CBC-Complete Blood Cnt No Di ffOrdered By: Director Of Music on 01-29-2018 Erythrocyte distribution width Ratio (RBC) 14.4 % Normal 11.6-14.6 [facility] Work Phone: Comment on above: [facility] [address] [place], [place], [phone] Hematocrit Volume Fraction (Bld) 47.7 % Normal 40-54 [facility] Work Phone: Comment on above: [facility] [address] [place], [address] Hemoglobin mass conc (Bld) 16.8 g/dL Abnormal 13.0-16.5 [facility] Work Phone: Comment on above: [facility] [address] [place], [address] MCH Entitic mass (RBC) 28.8 pg Normal 27.0-32.0 [facility] Work Phone: Comment on above: [facility] [address] [place], [address] MCHC mass conc (RBC) 35.2 {g/gl} Normal 32-36 Com prehensive Internal Medicine Work Phone: Comment on above: [facility] [address] [place], [address] MCV Entitic volume (RBC) 81.7 fL Normal 80-94 [facility] Work Phone: Comment on above: [facility] [address] [place], [address] Platelet mean volume Entitic volume (Bld) 10.2 fL Normal 6.2-12.0 Comprehensi ve Internal Medicine Work Phone: Comment on above: [facility] [address] [place], [address] Platelets #/vol (Bld) 177 10*3/uL Normal 150-450 [facility] Work Phone: Comment on above: [facility] [address] [place], [address] RBC #/vol (Bld) 5.84 {M/mm3} Normal 4.6-6.2 Compreh ensive Internal Medicine Work Phone: Comment on above: [facility] [address] [place], [address] WBC #/vol (Bld) 9.6 10*3/uL Normal 4.4-11.0 Comprehe nsive Internal Medicine Work Phone: Comment on above: [facility] [address] [place], [address] CBC-Complete Blood Cnt No Diff 42.5 fL Normal 35.1-43.9 [facility] Work Phone: Comment on above: [facility] [address] [place], [place], [address] Partial Thromboplast TimeOrd ered By: Director Of Music on 01-29-2018 aPTT Coag time (PPP) 29.6 s Normal 24.1-36.2 [facility] Work Phone: Comment on above: Comments: For heart cathComments: For [facility] [address] [place], [address] Prothrombin Time w/INROrdere d By: Director Of Music on 01-29-2018 INR Coag RelTime (PPP) 1.0 {INR} Normal Co [facility] Internal Medicine Work Phone: Comment on above: Comments: For heart cathComments: For [facility] [address] [place], [address] Prothrombin time (PT) Coag time (PPP) 13.5 s Normal 11.7-14.9 [facility] Work Phone: Comment on above: Comments: For heart cathComments: For [facility] [address] [place], [address] Lipid ProfileOrdered By: Shaunna tem Stacker And Sorter Operator on 01-24-2018 Cholesterol in HDL mass conc 38 mg/dL Abnormal [facility] Work Phone: Comment on above: The drugs N-Acetylcy steine and Metamizole may falselydepress this assay. Reference Range HDL <40 mg/dL Low HDL Cholesterol HDL >or= 60 mg/dL High HDL Cholesterol [facility] [address] [place], [address] Cholesterol in LDL mass conc 112 mg/dL Normal 0-130 [facility] Work Phone: Comment on above: [facility] [address] [place], [address] Cholesterol in VLDL [Mass/Vol] 18 mg/dL Normal 5-40 [facility] Work Phone: Comment on above: [facility] [address] [place], [place], [address] Cholesterol mass conc 168 mg/dL Normal Com prehensive Internal Medicine Work Phone: Comment on above: <200 mg/dL Desirable 200-240 mg/dL Borderline >240 mg/dL High Risk [facility] [address] [place], [place], [address] Triglyceride mass conc 92 mg/dL Normal Co mprehensive Internal Medicine Work Phone: Comment on above: The drugs N-Acetylcy steine and Metamizole may falselydepress this assay.Serum Triglycerides Reference Interval Normal <150 mg/dL Borderline high 150 - 199 mg/dL High 200 - 499 mg/dL Very High > or = 500 mg/dL [facility] [address] [place], [place], [address] Lipid Profile 18 mg/dL Normal 5-40 Comprehensi ve Internal Medicine Work Phone: Comment on above: [facility] [address] [place], [place], [address] Liver ProfileOrdered By: Shaunna tem Stacker And Sorter Operator on 01-24-2018 Albumin mass conc 3.7 g/dL Normal 3.2-5.0 Compreh ensive Internal Medicine Work Phone: Comment on above: [facility] [address] [place], [place], [address] ALP enzyme act/vol 76 U/L Normal 45-117 Compre hensive Internal Medicine Work Phone: Comment on above: [facility] [address] [place], [place], [address] ALT enzyme act/vol 41 U/L Normal 16-61 Compre hensive Internal Medicine Work Phone: Comment on above: [facility] [address] [place], [place], [address] AST enzyme act/vol 31 U/L Normal 15-37 [facility] Internal Medicine Work Phone: Comment on above: [facility] [address] [place], [place], [address] Bilirubin mass conc 1.60 mg/dL Abnormal 0.20-1.00 [facility] Internal Medicine Work Phone: Comment on above: [facility] [address] [place], [place], [address] Bilirubin.direct mass conc 0.28 mg/dL Normal 0.00-0.30 [facility] Internal Medicine Work Phone: Comment on above: [facility] [address] [place], [place], [address] Globulin mass conc (S) 3.5 g/dL Normal 2.2-4.2 Co [facility] Internal Medicine Work Phone: Comment on above: [facility] [address] [place], [place], [address] Hepatic function 2000 panel - Serum or Plasma 76 U/L Normal 45-117 [facility] Work Phone: Comment on above: [facility] [address] [place], [place], [address] Hepatic function 2000 panel - Serum or Plasma 7.2 g/dL Normal 6.4-8.2 [facility] Work Phone: Comment on above: [facility] [address] [place], [place], [phone] Protein mass conc 7.2 g/dL Normal 6.4-8.2 [facility] Internal Medicine Work Phone: Comment on above: [facility] [address] [place], [place], [address] T4 Total, ThyroxinOrdered By : Director Of Music on 01-24-2018 T4 mass conc 8.7 ug/dL Normal 4.5-12.1 Comprehensiv e Internal Medicine Work Phone: Comment on above: [facility] [address] [place], [address] Thyroid Stim Hormone (TSH)Or dered By: Director Of Music on 01-24-2018 Thyrotropin Qn 7.24 {uIU/mL} Abnormal 0.358-3.74 Compreh ensive Internal Medicine Work Phone: Comment on above: [facility] [address] [place], [place], [address] Basic Metabolic Profile (BMP )Ordered By: Director Of Music on 01-11-2018 Basic metabolic 2000 panel 4.2 mmol/L Normal 3.5-5.1 [facility] Work Phone: Comment on above: [facility] [address] [place], [place], [address] Basic metabolic 2000 panel 113 mmol/L Abnormal 98-107 [facility] Work Phone: Comment on above: [facility] [address] [place], [place], [address] Basic metabolic 2000 panel 8 1 Normal 5-15 [facility] Work Phone: Comment on above: [facility] [address] [place], [place], [address] Basic metabolic 2000 panel 142 mmol/L Normal 136-145 [facility] Work Phone: Comment on above: [facility] [address] [place], [place], [address] Basic metabolic 2000 panel 9.1 mg/dL Normal 8.5-10.1 [facility] Work Phone: Comment on above: [facility] [address] [place], [place], [address] Basic metabolic 2000 panel 17.3 {RATIO} Normal 10-20 [facility] Work Phone: Comment on above: [facility] [address] [place], [place], [address] Basic metabolic 2000 panel 69.90 ml/min Normal [facility] Work Phone: Comment on above: [facility] [address] [place], [place], [address] Basic metabolic 2000 panel 74 mL/min Normal [facility] Work Phone: Comment on above: GFR Calc [facility] [address] [place], [place], [address] Basic metabolic 2000 panel 61 mL/min Normal [facility] Work Phone: Comment on above: Non- GFR Calc [facility] [address] [place], [place], [address] Basic metabolic 2000 panel 1.27 mg/dL Normal 0.70-1.30 [facility] Work Phone: Comment on above: The validity of the calculated GFR AND GFRAA in patients over70 years has not been determined. Clinical correlation isessential. [facility] [address] [place], [place], [address] Basic metabolic 2000 panel 22 mg/dL Abnormal 7-18 [facility] Work Phone: Comment on above: [facility] [address] [place], [place], [address] Basic metabolic 2000 panel 105 mg/dL Normal 74-106 [facility] Work Phone: Comment on above: Fasting Glucose resu lt from 100 to 125 mg/dLsuggests IMPAIRED HOMEOSTASIS per A.D.A. criteria.Please note revised GLUCOSE reference range [id number]/02/2018. [facility] [address] [place], [place], [address] Basic metabolic 2000 panel 21.0 mmol/L Normal 21.0-32.0 [facility] Work Phone: Comment on above: [facility] [address] [place], [place], [address] CBC W/Diff, AutomatedOrdered By: Director Of Music on 01-11-2018 Absolute Neut 7.4 {X10_3/uL} Normal 2.0-7.7 Compreh ensive Internal Medicine Work Phone: Comment on above: [facility] [address] [place], [address] Basophils/100 WBC (Bld) 0.2 % Normal 0-1 [facility] Work Phone: Comment on above: [facility] [address] [place], [address] Eosinophils/100 WBC (Bld) 1.8 % Normal 0-5 [facility] Work Phone: Comment on above: [facility] [address] [place], [place], [phone] Erythrocyte distribution width Ratio (RBC) 13.9 % Normal 11.6-14.6 [facility] Work Phone: Comment on above: [facility] [address] [place], [address] Hematocrit Volume Fraction (Bld) 48.8 % Normal 40-54 [facility] Work Phone: Comment on above: [facility] [address] [place], [place], [id number] Hemoglobin mass conc (Bld) 16.9 g/dL Abnormal 13.0-16.5 [facility] Work Phone: Comment on above: [facility] [address] [place], [place], [id number] IM GRAN % 0.300 % Normal 0.0-0.9 [facility] Work Phone: Comment on above: IG% - Immature Granu locytes (promyelocytes, myelocytes andmetamyelocytes) > 1% indicates that a LEFT SHIFT is Present. [facility] [address] [place], [address] Lymphocytes #/vol (Bld) 2.30 {X10_3/ul} Normal 0.83-4.51 [facility] Work Phone: Comment on above: [facility] [address] [place], [address] Lymphocytes/100 WBC (Bld) 21.6 % Normal 19-41 [facility] Work Phone: Comment on above: [facility] [address] [place], [address] MCH Entitic mass (RBC) 28.6 pg Normal 27.0-32.0 [facility] Work Phone: Comment on above: [facility] [address] [place], [address] MCHC mass conc (RBC) 34.6 {g/gl} Normal 32-36 [facility] prehensive Internal Medicine Work Phone: Comment on above: [facility] [address] [place], [address] MCV Entitic volume (RBC) 82.7 fL Normal 80-94 [facility] Work Phone: Comment on above: [facility] [address] [place], [address] Monocytes/100 WBC (Bld) 7.0 % Normal 0-10 [facility] Work Phone: Comment on above: [facility] [address] [place], [address] Neutrophils/100 WBC (Bld) 69.1 % Normal 47-70 [facility] Work Phone: Comment on above: [facility] [address] [place], [address] Platelet mean volume Entitic volume (Bld) 9.3 fL Normal 6.2-12.0 Comprehensi ve Internal Medicine Work Phone: Comment on above: [facility] [address] [place], [id number] Platelets #/vol (Bld) 187 10*3/uL Normal 150-450 Co mprehensive Internal Medicine Work Phone: Comment on above: [facility] [address] [place], [place], [id number] RBC #/vol (Bld) 5.90 {M/mm3} Normal 4.6-6.2 Compreh ensive Internal Medicine Work Phone: Comment on above: [facility] [address] [place], [address] RDW SD 42.1 fL Normal 35.1-43.9 [facility] Work Phone: Comment on above: [facility] [address] [place], [address] WBC #/vol (Bld) 10.6 10*3/uL Normal 4.4-11.0 Compreh ensive Internal Medicine Work Phone: Comment on above: [facility] [address] [place], [address] Prothrombin Time w/INROrdere d By: Director Of Music on 01-11-2018 INR Coag RelTime (PPP) 1.0 {INR} Normal Co mprehensive Internal Medicine Work Phone: Comment on above: [facility] [address] [place], [address] Prothrombin time (PT) Coag time (PPP) 13.5 s Normal 11.7-14.9 [facility] Work Phone: Comment on above: [facility] [address] [place], [place], [id number] Troponin-IOrdered By: Director Of Music on 01-11-2018 Troponin I.cardiac mass conc ng/mL Normal [facility] Work Phone: Comment on above: TROPONIN-I EXPECTED VALUES <0.045 Negative 0.045 - 0.590 Consistent with Cardiac Damage > OR = 0.600 Critical Value Not every elevated troponin is indicative of TN. Thesevalues should be used with clinical judgement in examiningthe patient's clinical picture for diagnosis. To establisha diagnosis of TN versus myocardial injury, there must be ademonstrated rise and/or fall in the troponin values, inaddition to ischemic symptoms, EKG changes, new regionalwall motion abnormality, and/or angiographical evidence. PLEASE NOTE: REFERENCE RANGES EDITED 17 [facility] [address] [place], [address] CNOVon 08-06-2017 CNOV Office Visit (UCWSTR) ANGELICA MCKEON WILI ([id number]) 1955 [facility]08/06/17 11:15 AM JAKI TROY (KEVIN) WSTR During your visit today, we recorded the following information about you: Temperature Pulse Respiration Blood pressure 99.3 degrees 86/minute 28/minute 98/78 Weight 115.7 kgJaki Troy CNP 08/06/2017 11:57 AM SignedHPKatja Pieter Mckeon is a 62 year old [...] 08/06/2017(No Known Allergies)Date Reviewed: 08/06/2017Reviewed by: Jaki ([facility]) Woodrow - Fully AssessedReason for Visit: Cough [28] [...] DEVICE 1 Ea* 0 08/06/2017 08/06/2017 Route: [facility] Si Device one time only for 1 dose. Status:Closed by JAKI TROY on 1/28/18 Normal [facility] 08-06-2017 PROGRESS HNO ID: [id number]: Jaki (Kevin) Vivi: (none)Author Type: Nurse PractitionerType: Progress NotesFiled: [...] and analgesia.- Discussed expected course of illnessJaki Hobbs-KEVIN Alvarez Normal [facility] CBC-Complete Blood Cnt No Di ffOrdered By: Director Of Music on 11-07-2015 Erythrocyte distribution width Ratio (RBC) 14.1 % Normal 11.6-14.6 [facility] Work Phone: Comment on above: [facility] [address] [place], [place], [id number] Hematocrit Volume Fraction (Bld) 47.2 % Normal 40-54 [facility] Internal Medicine Work Phone: Comment on above: [facility] [address] [place], [address] Hemoglobin mass conc (Bld) 16.1 g/dL Normal 13.0-16.5 [facility] Internal Medicine Work Phone: Comment on above: [facility] [address] [place], [place], [id number] MCH Entitic mass (RBC) 28.0 pg Normal 27.0-32.0 [facility] Work Phone: Comment on above: [facility] [address] [place], [address] MCHC mass conc (RBC) 34.1 {g/gl} Normal 32-36 [facility] Phone: Comment on above: [facility] [address] [place], [address] MCV Entitic volume (RBC) 82.1 fL Normal 80-94 [facility] Work Phone: Comment on above: [facility] [address] [place], [address] Platelet mean volume Entitic volume (Bld) 9.8 fL Normal 6.2-12.0 Comprehensi ve Internal Medicine Work Phone: Comment on above: [facility] [address] [place], [address] Platelets #/vol (Bld) 194 10*3/uL Normal 150-450 Co mprehensive Internal Medicine Work Phone: Comment on above: [facility] [address] [place], [address] RBC #/vol (Bld) 5.75 {M/mm3} Normal 4.6-6.2 Compreh ensive Internal Medicine Work Phone: Comment on above: [facility] [address] [place], [address] WBC #/vol (Bld) 7.0 10*3/uL Normal 4.4-11.0 Comprehe nsive Internal Medicine Work Phone: Comment on above: [facility] [address] [place], [address] CBC-Complete Blood Cnt No Diff 42.1 fL Normal 35.1-43.9 [facility] Work Phone: Comment on above: [facility] [address] [place], [address] Comprehensive Metabolic Prof ilOrdered By: Director Of Music on 11-07-2015 Comprehensive metabolic 2000 panel 35 U/L Normal 15-37 Comprehensi ve Internal Medicine Work Phone: Comment on above: [facility] [address] [place], [address] Comprehensive metabolic 2000 panel 82 U/L Normal 50-136 Comprehensi ve Internal Medicine Work Phone: Comment on above: [facility] [address] [place], [place], [address] Comprehensive metabolic 2000 panel 53 U/L Normal 12-78 Comprehensi ve Internal Medicine Work Phone: Comment on above: [facility] [address] [place], [place], [address] Comprehensive metabolic 2000 panel 1.00 mg/dL Normal 0.20-1.00 Comprehensi ve Internal Medicine Work Phone: Comment on above: [facility] [address] [place], [place], [address] Comprehensive metabolic 2000 panel 143 mmol/L Normal 136-145 Comprehensi ve Internal Medicine Work Phone: Comment on above: [facility] [address] [place], [place], [address] Comprehensive metabolic 2000 panel 4.2 mmol/L Normal 3.5-5.1 Comprehensi ve Internal Medicine Work Phone: Comment on above: [facility] [address] [place], [place], [phone] Comprehensive metabolic 2000 panel 110 mmol/L Abnormal 98-107 Comprehensi ve Internal Medicine Work Phone: Comment on above: [facility] [address] [place], [place], [address] Comprehensive metabolic 2000 panel 23.0 mmol/L Normal 21.0-32.0 Comprehensi ve Internal Medicine Work Phone: Comment on above: [facility] [address] [place], [place], [address] Comprehensive metabolic 2000 panel 10 1 Normal 5-15 Comprehensi ve Internal Medicine Work Phone: Comment on above: [facility] [address] [place], [address] Comprehensive metabolic 2000 panel 83 mg/dL Normal 70-110 Comprehensi ve Internal Medicine Work Phone: Comment on above: [facility] [address] [place], [address] Comprehensive metabolic 2000 panel 3.7 g/dL Normal 3.4-5.0 Comprehensi ve Internal Medicine Work Phone: Comment on above: [facility] [address] [place], [address] Comprehensive metabolic 2000 panel 19 mg/dL Abnormal 7-18 Comprehensi ve Internal Medicine Work Phone: Comment on above: [facility] [address] [place], [address] Comprehensive metabolic 2000 panel 7.3 g/dL Normal 6.4-8.2 Comprehensi ve Internal Medicine Work Phone: Comment on above: [facility] [address] [place], [place], [phone] Comprehensive metabolic 2000 panel 16.1 {RATIO} Normal 10-20 Comprehensi ve Internal Medicine Work Phone: Comment on above: [facility] [address] [place], [place], [address] Comprehensive metabolic 2000 panel 1.0 {RATIO} Normal 0.9-2.4 Comprehensi ve Internal Medicine Work Phone: Comment on above: [facility] [address] [place], [address] Comprehensive metabolic 2000 panel 81 mL/min Normal Comprehensi ve Internal Medicine Work Phone: Comment on above: GFR Calc [facility] [address] [place], [address] Comprehensive metabolic 2000 panel 67 mL/min Normal Comprehensi ve Internal Medicine Work Phone: Comment on above: Non- GFR Calc [facility] [address] [place], [place], [address] Comprehensive metabolic 2000 panel 8.7 mg/dL Normal 8.5-10.1 Comprehensi ve Internal Medicine Work Phone: Comment on above: [facility] [address] [place], [place], [address] Comprehensive metabolic 2000 panel 1.18 mg/dL Normal 0.70-1.30 Comprehensi ve Internal Medicine Work Phone: Comment on above: The validity of the calculated GFR AND GFRAA in patients over70 years has not been determined. Clinical correlation isessential. [facility] [address] [place], [place], [address] Comprehensive metabolic 2000 panel 3.6 g/dL Abnormal 2.3-3.5 Comprehensi ve Internal Medicine Work Phone: Comment on above: [facility] [address] [place], [place], [address] Lipid ProfileOrdered By: Shaunna tem Stacker And Sorter Operator on 11-07-2015 Cholesterol in HDL mass conc 41 mg/dL Normal [facility] Work Phone: Comment on above: Reference Range HDL <40 mg/dL Low HDL Cholesterol HDL >or= 60 mg/dL High HDL Cholesterol [facility] [address] [place], [place], [address] Cholesterol in LDL mass conc 96 mg/dL Normal 0-130 [facility] Work Phone: Comment on above: [facility] [address] [place], [place], [address] Cholesterol in VLDL [Mass/Vol] 10 mg/dL Normal 5-40 [facility] Work Phone: Comment on above: [facility] [address] [place], [place], [address] Cholesterol mass conc 147 mg/dL Normal Com prehensive Internal Medicine Work Phone: Comment on above: <200 mg/dL Desirable 200-240 mg/dL Borderline >240 mg/dL High Risk [facility] [address] [place], [place], [address] Triglyceride mass conc 50 mg/dL Normal [facility] Internal Medicine Work Phone: Comment on above: Serum Triglycerides Reference Interval Normal <150 mg/dL Borderline high 150 - 199 mg/dL High 200 - 499 mg/dL Very High > or = 500 mg/dL [facility] [address] [place], [place], [address] Lipid Profile 10 mg/dL Normal 5-40 Comprehensi Internal Medicine Work Phone: Comment on above: [facility] [address] [place], [place], [address] PSA,Total - Annual ScreenOrd ered By: Director Of Music on 11-07-2015 Prostate specific Ag mass conc 1.45 ng/mL Normal 0.00-4.00 [facility] Work Phone: Comment on above: This test was perfor med using the TPSA assay method for theCFO.com chemistry system. Values obtained with differentassay methods cannot be used interchangably.When changing PSA assays in the course of monitoring apatient, additional sequential testing should be carriedout to confirm baseline values. [facility] [address] [place], [place], [address] Anaerobic and Aerobic Cultur eOrdered By: Director Of Music on 04-15-2009 Bacteria identified Aer cx Nom (Unsp spec) Final report Normal [facility] Internal Medicine Work Phone: Comment on above: Clinical Information : SRC:AM RT UPPER LAT. PERFORMED BY: BEREKET [employer] [facility] [id number] Bacteria identified Anaer cx Nom (Unsp spec) Final report Normal [facility] Work Phone: Comment on above: Clinical Information : SRC:AM RT UPPER LAT. PERFORMED BY: [employer] [facility] [id number] Bacteria identified Cx Nom (Unsp spec) [id number] Normal [facility] Work Phone: Comment on above: No anaerobic growth in 72 hours. Clinical Information : SRC:AM RT UPPER LAT. PERFORMED BY: BEREKET [employer] [facility]6370 [facility] [id number] Bacteria identified Cx Nom (Unsp spec) BACNBA Normal [facility] Work Phone: Comment on above: Bacillus species, no t Bacillus anthracisModerate growthSusceptibility not normally performed on this organism. Clinical Information : SRC:AM RT UPPER LAT. PERFORMED BY: BEREKET [facility]6370 [facility] [id number] Anti-TPO Antibody ([id number])Ord ered By: Florence Carranza on 11-04-2008 Thyroperoxidase Ab Qn [IU]/mL Normal 0-34 [facility] prehensive Internal Medicine Work Phone: Comment on above: PATIENT NOT FASTINGP ERFORMED BY: [facility]6370 [facility] [id number] TPO Ab Qn [IU]/mL Normal 0-34 [facility]; [facility] Work Phone: Comment on above: PATIENT NOT FASTINGP ERFORMED BY: [employer] [facility]6370 [facility] [id number] T3, FREE (TRIDOTHYRONINE) ([id number])Ordered By: Florence Carranza on 11-04-2008 T3 free mass conc 3.1 pg/mL Normal 2.3-4.2 Compreh ensive Internal Medicine Work Phone: Comment on above: PATIENT NOT FASTINGP ERFORMED BY: [facility]6370 [facility] [id number] T4, FREE (THYROXINE) ([id number]) Ordered By: Florence Carranza on 11-04-2008 T4 free mass conc 1.00 ng/dL Normal 0.61-1.76 Compreh ensive Internal Medicine Work Phone: Comment on above: PATIENT NOT FASTINGP ERFORMED BY: [facility]6370 [facility] [id number] TSH ([id number])Ordered By: Florence Carranza on 11-04-2008 Thyrotropin Qn 3.691 {uIU/mL} Normal 0.450-4.50 0 [facility] Work Phone: Comment on above: PATIENT NOT FASTINGC linical Information: ADD DRAW FEE [id number] ADD J [id number] PERFORMED BY: [address] [id number] CBC WITH MANUAL DIFF ([id number]) Ordered By: Florence Carranza on 08-13-2008 Basophils #/vol (Bld) 0.1 {x10E3/uL} Normal 0.0-0.2 [facility] Work Phone: Comment on above: PATIENT WAS FASTINGC linical Information: ADD DRAW FEE [id number] ADD J 94871 PERFORMED BY: [address] [id number] Basophils (Bld) [#/Vol] 0.1 10*3/uL Normal 0.0-0.2 [facility]; [facility] Work Phone: Comment on above: PATIENT WAS FASTINGC linical Information: ADD DRAW FEE [id number] ADD J 64529 PERFORMED BY: [facility]6370 [facility] [id number] Basophils/100 WBC (Bld) 1 % Normal 0-3 [facility] Work Phone: Comment on above: PATIENT WAS FASTINGC linical Information: ADD DRAW FEE [id number] ADD J 55036 PERFORMED BY: [facility]6370 [facility] [id number] Eosinophils #/vol (Bld) 0.3 {x10E3/uL} Normal 0.0-0.4 [facility] Work Phone: Comment on above: PATIENT WAS FASTINGC linical Information: ADD DRAW FEE [id number] ADD J 28937 PERFORMED BY: [facility]6370 [facility] [id number] Eosinophils (Bld) [#/Vol] 0.3 10*3/uL Normal 0.0-0.4 [facility]; [facility] Work Phone: Comment on above: PATIENT WAS FASTINGC linical Information: ADD DRAW FEE [id number] ADD J 87425 PERFORMED BY: BEREKET [facility]6370 [facility] [id number] Eosinophils/100 WBC (Bld) 4 % Normal 0-7 [facility] Work Phone: Comment on above: PATIENT WAS FASTINGC linical Information: ADD DRAW FEE [id number] ADD J 29407 PERFORMED BY: BEREKET [address] [id number] Erythrocyte distribution width Ratio (RBC) 15.0 % Normal 11.7-15.0 [facility] Work Phone: Comment on above: PATIENT WAS FASTINGC linical Information: ADD DRAW FEE [id number] ADD J PERFORMED BY: BEREKET [facility] [address] [id number] Hematocrit Volume Fraction (Bld) 43.8 % Normal 36.0-50.0 [facility] Work Phone: Comment on above: PATIENT WAS FASTINGC linical Information: ADD DRAW FEE [id number] ADD J 66137 PERFORMED BY: BEREKET [address] [id number] Hemoglobin mass conc (Bld) 15.0 g/dL Normal 12.5-17.0 [facility] Work Phone: Comment on above: PATIENT WAS FASTINGC linical Information: ADD DRAW FEE [id number] ADD J 39129 PERFORMED BY: [address] [id number] Lymphocytes #/vol (Bld) 1.7 {x10E3/uL} Normal 0.7-4.5 [facility] Work Phone: Comment on above: PATIENT WAS FASTINGC linical Information: ADD DRAW FEE [id number] ADD J 01282 PERFORMED BY: [address] [id number] Lymphocytes (Bld) [#/Vol] 1.7 10*3/uL Normal 0.7-4.5 [facility] Internal Medicine; [facility] Internal Medicine Work Phone: Comment on above: PATIENT WAS FASTINGC linical Information: ADD DRAW FEE [id number] ADD J PERFORMED BY: [facility]6370 [facility] [id number] Lymphocytes/100 WBC (Bld) 26 % Normal 14-46 [facility] Internal Medicine Work Phone: Comment on above: PATIENT WAS FASTINGC linical Information: ADD DRAW FEE [id number] ADD J PERFORMED BY: [address] [id number] MCH Entitic mass (RBC) 27.7 pg Normal 27.0-34.0 [facility] Internal [facility] Work Phone: Comment on above: PATIENT WAS FASTINGC linical Information: ADD DRAW FEE [id number] ADD J PERFORMED BY: [address] [id number] MCHC mass conc (RBC) 34.2 g/dL Normal 32.0-36.0 [facility] Internal Medicine Work Phone: Comment on above: PATIENT WAS FASTINGC linical Information: ADD DRAW FEE [id number] ADD J PERFORMED BY: [place] [id number] [facility] [id number] MCV Entitic volume (RBC) 81 fL Normal 80-98 [facility] Internal Medicine Work Phone: Comment on above: PATIENT WAS FASTINGC linical Information: ADD DRAW FEE [id number] ADD J PERFORMED BY: [address] [id number] Monocytes #/vol (Bld) 0.5 {x10E3/uL} Normal 0.1-1.0 [facility] Internal Medicine Work Phone: Comment on above: PATIENT WAS FASTINGC linical Information: ADD DRAW FEE [id number] ADD J 37495 PERFORMED BY: [address] [id number] Monocytes (Bld) [#/Vol] 0.5 10*3/uL Normal 0.1-1.0 [facility]; [facility] Work Phone: Comment on above: PATIENT WAS FASTINGC linical Information: ADD DRAW FEE [id number] ADD J PERFORMED BY: BEREKET [employer] Fwghxj5215 Rm [facility] [id number] Monocytes/100 WBC (Bld) 8 % Normal 4-13 [facility] Work Phone: Comment on above: PATIENT WAS FASTINGC linical Information: ADD DRAW FEE [id number] ADD J PERFORMED BY: BEREKET [employer] Aeeeaf4989 Rm [facility] [id number] Neutrophils #/vol (Bld) 4.0 {x10E3/uL} Normal 1.8-7.8 [facility] Work Phone: Comment on above: PATIENT WAS FASTINGC linical Information: ADD DRAW FEE [id number] ADD J PERFORMED BY: BEREKET [facility] Zyhmla9409 [facility] [id number] Neutrophils (Bld) [#/Vol] 4.0 10*3/uL Normal 1.8-7.8 [facility]; [facility] Work Phone: Comment on above: PATIENT WAS FASTINGC linical Information: ADD DRAW FEE [id number] ADD J PERFORMED BY: BEREKET Oropeza6370 [facility] [id number] Neutrophils/100 WBC (Bld) 61 % Normal 40-74 [facility] Work Phone: Comment on above: PATIENT WAS FASTINGC linical Information: ADD DRAW FEE [id number] ADD J PERFORMED BY: BEREKET [employer] Zabdrg7294 [facility] [id number] Platelets #/vol (Bld) 188 {x10E3/uL} Normal 140-415 [facility] Work Phone: Comment on above: PATIENT WAS FASTINGC linical Information: ADD DRAW FEE [id number] ADD J 39362 PERFORMED BY: BEREKET [employer] Szuuwh2233 [facility] [id number] Platelets (Bld) [#/Vol] 188 10*3/uL Normal 140-415 [facility]; [facility] Work Phone: Comment on above: PATIENT WAS FASTINGC linical Information: ADD DRAW FEE [id number] ADD J 37029 PERFORMED BY: [facility]6370 [facility] [id number] RBC #/vol (Bld) 5.40 {x10E6/uL} Normal 4.10-5.60 [facility] Work Phone: Comment on above: PATIENT WAS FASTINGC linical Information: ADD DRAW FEE [id number] ADD J 15304 PERFORMED BY: [address] [id number] RBC (Bld) [#/Vol] 5.40 10*6/uL Normal 4.10-5.60 [facility] Internal Medicine; [facility] Work Phone: Comment on above: PATIENT WAS FASTINGC linical Information: ADD DRAW FEE [id number] ADD J 69578 PERFORMED BY: [address] [id number] WBC #/vol (Bld) 6.6 {x10E3/uL} Normal 4.0-10.5 [facility] Internal Medicine Work Phone: Comment on above: PATIENT WAS FASTINGC linical Information: ADD DRAW FEE [id number] ADD J 28732 PERFORMED BY: [address] [id number] WBC (Bld) [#/Vol] 6.6 10*3/uL Normal 4.0-10.5 [facility]; [facility] Work Phone: Comment on above: PATIENT WAS FASTINGC linical Information: ADD DRAW FEE [id number] ADD J 92937 PERFORMED BY: [address] [id number] Lipid Panel (19547)Ordered B y: Florence Momo on 08-13-2008 Cholesterol in HDL mass conc 53 mg/dL Normal [facility] Work Phone: Comment on above: According to ATP-III Guidelines, HDL-C >59 mg/dL is considered anegative risk factor for CHD. PATIENT WAS FASTINGP ERFORMED BY: CB [facility] Ykeqps5267 Rm RoadDublin [place] [id number] Cholesterol in LDL mass conc 115 mg/dL Abnormal 0-99 [facility] Work Phone: Comment on above: PATIENT WAS FASTINGP ERFORMED BY: CB [facility] Uvjcuc2162 Rm RoadDublin [place] [id number] Cholesterol in LDL/Cholesterol in HDL mass ratio SPRCS Normal [facility] Work Phone: Comment on above: If initial LDL-lanette sterol result is >100 mg/dL, assess forrisk factors. PATIENT WAS FASTINGP ERFORMED BY: CB [facility] Hnlved4927 Rm RoadDublin [place] [id number] Cholesterol in LDL/Cholesterol in HDL mass ratio 2.2 {ratio_units} Normal 0.0-3.6 [facility] Work Phone: Comment on above: PATIENT WAS FASTINGP ERFORMED BY: CB [facility] Egcgzy2925 [address] RoadDublin [place] [id number] Cholesterol in VLDL mass conc 14 mg/dL Normal 5-40 [facility] Work Phone: Comment on above: PATIENT WAS FASTINGP ERFORMED BY: CB [facility] Azbunh2959 [address] RoadDublin [place] [id number] Cholesterol mass conc 182 mg/dL Normal 100-199 Com prehensive [facility] Medicine Work Phone: Comment on above: PATIENT WAS FASTINGP ERFORMED BY: CB [facility] Hptzbv1569 R[address] RoadDublin [place] [id number] Triglyceride mass conc 71 mg/dL Normal 0-149 [facility] Work Phone: Comment on above: PATIENT WAS FASTINGP ERFORMED BY: CB [facility] Ecuhou3297 [address] RoadDublin [place] [id number] METABOLIC PANEL, COMPREHENSI VE ([id number])Ordered By: Florence Carranza on 08-13-2008 Albumin mass conc 4.2 g/dL Normal 3.5-5.5 [facility] Internal Medicine Work Phone: Comment on above: PATIENT WAS FASTINGP ERFORMED BY: BEREKET Oropeza6370 R[address] [facility] [id number] Albumin/Globulin mass ratio 1.5 {ratio} Normal 1.1-2.5 [facility] Internal Medicine Work Phone: Comment on above: PATIENT WAS FASTINGP ERFORMED BY: Andres Monroelin6370 [address] [facility] [id number] ALP [Catalytic activity/Vol] 80 U/L Normal 25-150 [facility]; [facility] Internal Medicine Work Phone: Comment on above: PATIENT WAS FASTINGP ERFORMED BY: BEREKET Haddad Svbvvj4392 Rm [facility] [id number] ALP enzyme act/vol 80 [iU]/L Normal 25-150 [facility] Internal Medicine Work Phone: Comment on above: PATIENT WAS FASTINGP ERFORMED BY: Catie Flophl9818 [facility] [id number] ALT [Catalytic activity/Vol] 30 U/L Normal 0-55 [facility] Internal Medicine; [facility] Internal Medicine Work Phone: Comment on above: PATIENT WAS FASTINGP ERFORMED BY: BEREKET Monroelin6370 [facility] [id number] ALT enzyme act/vol 30 [iU]/L Normal 0-55 [facility] Internal Medicine Work Phone: Comment on above: PATIENT WAS FASTINGP ERFORMED BY: Lab[facility]6370 [facility] [id number] AST [Catalytic activity/Vol] 29 U/L Normal 0-40 [facility] Internal Medicine; [facility] Internal Medicine Work Phone: Comment on above: PATIENT WAS FASTINGP ERFORMED BY: LabAria Wdcrmk1448 Rm [facility] [id number] AST enzyme act/vol 29 [iU]/L Normal 0-40 [facility] Internal Medicine Work Phone: Comment on above: PATIENT WAS FASTINGP ERFORMED BY: BEREKET [facility] Nrxhli2532 Rm Roadblin [place] [id number] Bilirubin mass conc 1.0 mg/dL Normal 0.1-1.2 [facility] Work Phone: Comment on above: PATIENT WAS FASTINGP ERFORMED BY: BEREKET [facility] Ijzhvj5924 R[address] RoadWake [facility] Hospitalin [place] [id number] Calcium mass conc 9.5 mg/dL Normal 8.5-10.6 Compreh [facility] servicesive Internal [facility] Work Phone: Comment on above: PATIENT WAS FASTINGP ERFORMED BY: CB [facility] Zsboml4221 Rm [facility]in [place] [id number] Chloride molar conc 107 mmol/L Normal 97-108 Com[facility] Internal Medicine Work Phone: Comment on above: PATIENT WAS FASTINGP ERFORMED BY: BEREKET [facility] Mjzzcv7725 Rm [facility] [id number] CO2 molar conc 23 mmol/L Normal 20-32 Comprehens [facility] Internal Medicine Work Phone: Comment on above: PATIENT WAS FASTINGP ERFORMED BY: BEREKET [facility] Bvhlnf5908 Rm [facility]in [place] [id number] Creatinine mass conc 1.10 mg/dL Normal 0.76-1.27 Comp [facility] Internal Medicine Work Phone: Comment on above: PATIENT WAS FASTINGP ERFORMED BY: BEREKET [facility] Hpqjxe6212 Rm [facility] [id number] GFR/1.73 sq M predicted among blacks MDRD vol rate/area (S/P/Bld) mL/min/{1.73_m2} Normal [facility] Work Phone: Comment on above: Note: Persistent red uction for 3 months or more in an eGFR<60 mL/min/1.73 m2 defines CKD. Patients with eGFR values>/=60 mL/min/1.73 m2 may also have CKD if evidence of persistentproteinuria is present. Additional information may be found [email or web address]. PATIENT WAS FASTINGP ERFORMED BY: CB [facility] Xhjeyz6152 [facility] [id number] GFR/1.73 sq M.predicted MDRD (S/P/Bld) [Vol rate/Area] mL/min/{1.73_m2} Normal [facility] Work Phone: Comment on above: PATIENT WAS FASTINGP ERFORMED BY: [facility]6370 [facility] [id number] GFR/1.73 sq M.predicted MDRD vol rate/area mL/min/{1.73_m2} Normal [facility] Work Phone: Comment on above: PATIENT WAS FASTINGP ERFORMED BY: BEREKET NicoleFormerly [facility]6370 [facility] [id number] Globulin mass conc (S) 2.8 g/dL Normal 1.5-4.5 Co mprehensive [facility] Medicine Work Phone: Comment on above: PATIENT WAS FASTINGP ERFORMED BY: [facility]6370 [facility] [id number] Glucose mass conc 82 mg/dL Normal 65-99 Compreh ensive Internal Medicine Work Phone: Comment on above: PATIENT WAS FASTINGP ERFORMED BY: BEREKET [facility]Formerly [facility]6370 [facility] [id number] Potassium molar conc 4.6 mmol/L Normal 3.5-5.2 Comp rehensive Internal Medicine Work Phone: Comment on above: PATIENT WAS FASTINGP ERFORMED BY: [facility]Former[facility]6370 [facility] [id number] Protein mass conc 7.0 g/dL Normal 6.0-8.5 Compreh ensive [facility] Medicine Work Phone: Comment on above: PATIENT WAS FASTINGP ERFORMED BY: [facility]6370 [facility] [id number] Sodium molar conc 141 mmol/L Normal 135-145 Compreh ensive Internal Medicine Work Phone: Comment on above: PATIENT WAS FASTINGP ERFORMED BY: [place] [id number] [facility] [id number] Urea nitrogen mass conc 12 mg/dL Normal 5-26 [facility] Work Phone: Comment on above: PATIENT WAS FASTINGP ERFORMED BY: BEREKET [facility] Efqjcz6909 [facility] [id number] Urea nitrogen/Creatinine mass ratio 11 mg/mg Normal 8-27 [facility] Work Phone: Comment on above: PATIENT WAS FASTINGP ERFORMED BY: [facility]6370 [facility] [id number] PSA (PROSTATE SPECIFIC ANTIG EN) (V76.44)Ordered By: Florence Carranza on 08-13-2008 Prostate specific Ag mass conc 2.3 ng/mL Normal 0.0-4.0 [facility] Work Phone: Comment on above: Fahad ECLIA methodol ogy. .According to the [place] [employer], PSA should beundetectable after radical prostatectomy. A PSA of less than0.5 ng/mL (or undetectable) is not likely to be associated withdisease recurrence within five years of treatment.Values obtained with different assay methods or kits cannot be usedinterchangeably. Results cannot be interpreted as absolute evidenceof the presence or absence of malignant disease. PATIENT WAS FASTINGP ERFORMED BY: BEREKET NicoleFormerly [facility]6370 [facility] [id number] TSH ([id number])Ordered By: Florence Carranza on 08-13-2008 Thyrotropin Qn 6.078 {uIU/mL} Abnormal 0.450-4.50 0 [facility] Work Phone: Comment on above: PATIENT WAS FASTINGP ERFORMED BY: BEREKET PrintEcoFormerly [facility]6370 [facility] [id number] Thyroxine (T4) Free, Direct, SOrdered By: Director Of Music on 08-13-2008 T4 free mass conc 0.88 ng/dL Normal 0.61-1.76 Compreh ensive Internal Medicine Work Phone: Comment on above: PATIENT WAS FASTINGC linical Information: ADD DRAW FEE [id number] ADD J [id number] PERFORMED BY: BEREKET PrintEco[address]in [place] [id number] Triiodothyronine,Free,SerumO rdered By: Director Of Music on 08-13-2008 T3 free mass conc 3.1 pg/mL Normal 2.3-4.2 Compreh ensive [facility] Medicine Work Phone: Comment on above: PATIENT WAS FASTINGP ERFORMED BY: [facility]Eco[facility] Xnqahs9869 [facility] [id number] Written AuthorizationOrdered By: Director Of Music on 08-13-2008 Written Authorization WAR Normal Com prehensive [facility] Medicine Work Phone: Comment on above: Written Authorizatio n Received.Authorization received from DR CARRANZA [id number] by Leigh Ann Diehl PATIENT WAS FASTINGP ERFORMED BY: [employer] Oapskb5340 [facility] [id number] COMP METABOLICOrdered By: stem Stacker And Sorter Operator on 09-19-2007 Albumin mass conc 3.7 g/dL Normal 3.4-5.0 Compreh ensive Internal Medicine Work Phone: Albumin/Globulin mass ratio 1.2 {RATIO} Normal 0.9-2.4 [facility] Work Phone: ALP enzyme act/vol 71 U/L Normal 50-136 Compre [facility] Internal Medicine Work Phone: ALT enzyme act/vol 45 [iU]/L Normal 30-65 [facility] Internal Medicine Work Phone: Anion gap molar conc 5 mmol/L Normal 5-15 Comp rehensive Internal Medicine Work Phone: AST enzyme act/vol 30 U/L Normal 15-37 Compre [facility] Work Phone: Bilirubin mass conc [...] conc (S) 3.1 g/dL Normal 2.7-4.2 Co mprehensive [facility] Work Phone: Comment [...] Work Phone: PSA,TOT SCREENOrdered By: Sy stem Stacker And Sorter Operator on 09-19-2007 Prostate specific Ag mass conc 1.92 ng/mL Normal 0.00-4.00 [facility] Work Phone: Comment on above: This test was perfor med using the TPSA method for theDimension chemistry system.Values obtained with different assay methods cannot be usedinterchangably.When changing PSA assays in the course of monitoring apatient, additional sequential testing should be carriedout to confirm baseline values. ECG B/O W INTERP (MED OFFICE ) [facility] Vital Signs Date Time Vital Sign Value Performing Clinician Facility 04-09-2025 10:20-0400 Body height 186.69 cm Roman Simone LOAN ADVISER-C Work Phone: [facility] 04-09-2025 10:20-0400 Body mass index (BMI) [Ratio] 34.9 kg/m2 Roman Simone LOAN ADVISER-C Work Phone: [facility] 04-09-2025 10:20-0400 Body weight 121.56 kg Roman Simone LOAN ADVISER-C Work Phone: [facility] 04-09-2025 10:20-0400 Diastolic blood pressure 74 mm[Hg] Roman Simone LOAN ADVISER-C Work Phone: [facility] 04-09-2025 10:20-0400 Heart rate 67 /min Roman Simone LOAN ADVISER-C Work Phone: [facility] 04-09-2025 10:20-0400 Respiratory rate 16 /min Roman Simone LOAN ADVISER-C Work Phone: [facility] 04-09-2025 10:20-0400 Systolic blood pressure 112 mm[Hg] Roman Simone LOAN ADVISER-C Work Phone: [facility] 11-06-2024 08:26-0400 Body height 186.69 cm Roman Simone LOAN ADVISER-C Work Phone: [facility] 11-06-2024 08:26-0400 Body mass index (BMI) [Ratio] 35.1 kg/m2 Roman Simone LOAN ADVISER-C Work Phone: [facility] 11-06-2024 08:26-0400 Body weight 122.46 kg Roman Simone LOAN ADVISER-C Work Phone: [facility] 11-06-2024 08:26-0400 Diastolic blood pressure 63 mm[Hg] Roman Simone LOAN ADVISER-C Work Phone: [facility] 11-06-2024 08:26-0400 Heart rate 62 /min Roman Simone LOAN ADVISER-C Work Phone: [facility] 11-06-2024 08:26-0400 Respiratory rate 18 /min Roman Nichols LOAN ADVISER-C Work Phone: [facility] 11-06-2024 08:26-0400 Systolic blood pressure 99 mm[Hg] Roman Nichols LOAN ADVISER-C Work Phone: [facility] 09-06-2023 14:14-0500 Body height 186.7 cm Danny Ramos MD Work Phone: [facility] 09-06-2023 14:14-0500 Body weight 119.48 kg Danny Ramos MD Work Phone: [facility] 09-06-2023 14:14-0500 Diastolic blood pressure 71 mm[Hg] Danny Ramos MD Work Phone: [facility] 09-06-2023 14:14-0500 Heart rate 68 /min Danny Ramos MD Work Phone: [facility] 09-06-2023 14:14-0500 SaO2% (BldA) [Mass fraction] 95 % Dnany Ramos MD Work Phone: [facility] 09-06-2023 14:14-0500 Systolic blood pressure 110 mm[Hg] Danny Ramos MD Work Phone: [facility] 11-30-2022 09:23-0400 Body height 185.42 cm [...] SaO2% (BldA) [Mass fraction] 95 % Kimberlyn Sawin MA [facility]; [facility] Work Phone: Comment on above: Room air 07-29-2022 08:15-0500 Systolic blood pressure 110 mm[Hg] Kimberlyn Swain MA [facility]; [facility] Work Phone: Comment on above: Patient Position: Sitting; Cuff Location : Left Arm; Cuff Size: Standard 06-11-2022 20:37-0500 SaO2% (BldA) [Mass fraction] 100 % LOAN ADVISER-C Steff Subramanian LOAN ADVISER Work Phone: [facility] Work Phone: 06-11-2022 20:01-0500 Body height 185.42 cm LOAN ADVISER-C Steff Subramanian LOAN ADVISER Work Phone: [facility] Work Phone: 06-11-2022 20:01-0500 Body mass index (BMI) [Ratio] 34.2 kg/m2 LOAN ADVISER-C Steff Subramanian LOAN ADVISER Work Phone: [facility] Work Phone: 06-11-2022 20:01-0500 Body temperature 97.9 [degF] LOAN ADVISER-C Steff Subramanian LOAN ADVISER Work Phone: [facility] Work Phone: 06-11-2022 20:01-0500 Body weight 117.93 kg LOAN ADVISER-C Steff Brookeesa LOAN ADVISER Work Phone: [facility] Work Phone: 06-11-2022 20:01-0500 Diastolic blood pressure 81 mm[Hg] LOAN ADVISER-C Steff Ciesa LOAN ADVISER Work Phone: [facility] Work Phone: 06-11-2022 20:01-0500 Heart rate 71 /min LOAN ADVISER-C Steff Ciesa LOAN ADVISER Work Phone: [facility] Work Phone: 06-11-2022 20:01-0500 Respiratory rate 18 /min LOAN ADVISER-C Steff Ciesa LOAN ADVISER Work Phone: [facility] Work Phone: 06-11-2022 20:01-0500 Systolic blood pressure 135 mm[Hg] LOAN ADVISER-C Steff Ciesa LOAN ADVISER Work Phone: [facility] Work Phone: 05-24-2022 12:50-0500 Diastolic Blood Pressure Non-Invasive [address] MIYA PARRA MD [facility] 05-24-2022 12:50-0500 Heart rate 56 /min DR MIYA PARRA MD [facility] 05-24-2022 12:50-0500 Mean blood pressure 79 mm[Hg] DR MIYA PARRA MD [facility] 05-24-2022 12:50-0500 Respiratory rate 18 /min DR MIYA PARRA MD [facility] 05-24-2022 12:50-0500 Systolic Blood Pressure Non-Invasive [address] MIYA PARRA MD [facility] 05-24-2022 11:48-0500 Diastolic Blood Pressure Non-Invasive [address] MIYA PARRA MD [facility] 05-24-2022 11:48-0500 Heart rate 59 /min DR MIYA PARRA MD [facility] 05-24-2022 11:48-0500 Mean blood pressure 80 mm[Hg] DR MIYA PARRA MD [facility] 05-24-2022 11:48-0500 Respiratory rate 18 /min DR MIYA PARRA MD [facility] 05-24-2022 11:48-0500 Systolic Blood Pressure Non-Invasive [address] MIYA PARRA MD [facility] 05-24-2022 11:00-0500 Diastolic Blood Pressure Non-Invasive [address] MIYA PARRA MD [facility] 05-24-2022 11:00-0500 Heart rate 54 /min DR MIYA PARRA MD [facility] 05-24-2022 11:00-0500 Mean blood pressure 84 mm[Hg] DR MIYA PARRA MD [facility] 05-24-2022 08:55-0500 Body temperature 96.8 [degF] DR MIYA PARRA MD [facility] 05-24-2022 08:50-0500 Respiratory Rate - Anes 7 br/min DR MIYA PARRA MD [facility] 05-24-2022 08:45-0500 Respiratory Rate - Anes 8 br/min DR MIYA PARRA MD [facility] 05-24-2022 08:40-0500 Respiratory Rate - Anes 6 br/min DR MIYA PARRA MD [facility] 05-24-2022 05:54-0500 Body height 185.[address] MIYA PARRA MD [facility] 05-24-2022 05:54-0500 Body temperature 96.98 [degF] DR MIYA PARRA MD [facility] 05-24-2022 05:54-0500 Body weight 118.[address] MIYA PARRA MD [facility] 05-24-2022 05:54-0500 Body weight 34.39 kg/m2 DR MIYA PARRA MD [facility] 05-24-2022 05:54-0500 diastolic 89 mm[Hg] DR MIYA PARRA MD [facility] 05-24-2022 05:54-0500 Heart rate 53 /min DR MIYA PARRA MD [facility] 05-24-2022 05:54-0500 systolic 122 mm[Hg] DR MIYA PARRA MD [facility] 05-10-2022 07:59-0400 Body height 185.42 cm Alexa Villatoro LPN [facility]; [facility] Work Phone: 05-10-2022 07:59-0400 Body mass index (BMI) [Ratio] 34.96 kg/m2 Alexa Villatoro LPN [facility]; [facility] Work Phone: 05-10-2022 07:59-0400 Body surface area Derived from formula 2.43 m2 Alexa Villatoro LPN [facility]; [facility] Work Phone: 05-10-2022 07:59-0400 Body temperature 98.2 [degF] Alexa Slarb D[employer]ICATED [employer]IONAL DRIVER [facility]; [facility] Work Phone: 05-10-2022 07:59-0400 Body weight 120.2 kg Alexa Slarb D[employer]IC[employer]IONAL DRIVER [facility]; [facility] Work Phone: 05-10-2022 07:59-0400 Diastolic blood pressure 72 mm[Hg] Alexa Slarb D[employer]ICATED [employer]IONAL DRIVER [facility]; [facility] Work Phone: Comment on above: Patient Position: Sitting; Cuff Location : Left Arm; Cuff Size: Standard 05-10-2022 07:59-0400 Heart rate 58 /min Alexa Slarb D[employer]ICATED [employer]IONAL DRIVER [facility]; [facility] Work Phone: Comment on above: Pattern: Regular 05-10-2022 07:59-0400 Respiratory rate 17 /min Alexa Slarb D[employer]IC[employer]ION[employer] DRIVER [facility]; [facility] Work Phone: Comment on above: Pattern: Unlabored 05-10-2022 07:59-0400 SaO2% (BldA) [Mass fraction] 96 % Alexa Slarb [employer] DRIVER [facility]; [facility] Work Phone: Comment on above: Room air 05-10-2022 07:59-0400 Systolic blood pressure 118 mm[Hg] Alexa Slarb D[employer]IC[employer]ION[employer] DRIVER [facility]; [facility] Work Phone: Comment on above: Patient Position: Sitting; Cuff Location : Left Arm; Cuff Size: Standard 05-02-2022 09:35-0400 Body height 185.[address] MIYA PARRA MD [facility] 05-02-2022 09:35-0400 Body weight 119.[address] MIYA PARRA MD [facility] 05-02-2022 09:35-0400 Body weight 34.77 kg/m2 DR MIYA PARRA MD [facility] 05-02-2022 09:35-0400 diastolic 72 mm[Hg] DR MIYA PARRA MD [facility] 05-02-2022 09:35-0400 Heart rate 62 /min DR MIYA PARRA MD [facility] 05-02-2022 09:35-0400 Respiratory rate 18 /min DR MIYA PARRA MD [facility] 05-02-2022 09:35-0400 systolic 98 mm[Hg] DR MIYA PARRA MD [facility] 04-15-2022 07:02-0400 Body height 185.42 cm Kimberlyn [...] Body mass index (BMI) [Ratio] 34.4 kg/m2 LOAN ADVISER-C Steff Jenkinsa LOAN ADVISER Work Phone: [facility] Work Phone: 03-16-2022 10:26-0400 Body weight 118.38 kg LOAN ADVISER-C Steff Jenkinsa LOAN ADVISER Work Phone: [facility] Work Phone: 03-16-2022 10:26-0400 Diastolic blood pressure 78 mm[Hg] LOAN ADVISER-C Steff Brookeesa LOAN ADVISER Work Phone: [facility] Work Phone: 03-16-2022 10:26-0400 Heart rate 94 /min LOAN ADVISER-C Steff Ciesa LOAN ADVISER Work Phone: [facility] Work Phone: 03-16-2022 10:26-0400 Respiratory rate 18 /min LOAN ADVISER-C Steff Ciesa LOAN ADVISER Work Phone: [facility] Work Phone: 03-16-2022 10:26-0400 SaO2% (BldA) [Mass fraction] 95 % LOAN ADVISER-C Steff Ciesa LOAN ADVISER Work Phone: [facility] Work Phone: 03-16-2022 10:26-0400 Systolic blood pressure 129 mm[Hg] HENRI Artis Moris JUN Work Phone: [facility] Work Phone: 01-12-2022 08:06-0400 Body height 185.42 cm Alexa Slarb D[employer]IC[employer]ION[employer] DRIVER [facility]; [facility] Work Phone: 01-12-2022 08:06-0400 Body mass index (BMI) [Ratio] 34.17 kg/m2 Alexa Slarb D[employer]IC[employer] DRIVER [facility]; [facility] Work Phone: 01-12-2022 08:06-0400 Body surface area Derived from formula 2.4 m2 Alexa Slarb D[employer]IC[employer] DRIVER [facility]; [facility] Work Phone: 01-12-2022 08:06-0400 Body temperature 97.1 [degF] Alexa Slarb D[employer]IC[employer]IONAL DRIVER [facility]; [facility] Work Phone: 01-12-2022 08:06-0400 Body weight 117.48 kg Alexa Slarb D[employer]IC[employer] DRIVER [facility]; [facility] Work Phone: 01-12-2022 08:06-0400 Diastolic blood pressure 64 mm[Hg] Alexa Slarb D[employer]IC[employer] DRIVER [facility]; [facility] Work Phone: Comment on above: Patient Position: Sitting; Cuff Location : Left Arm; Cuff Size: Standard 01-12-2022 08:06-0400 Heart rate 65 /min Alexa Slarb D[employer]IC[employer]ION[employer] DRIVER [facility]; [facility] Work Phone: Comment on above: Pattern: Regular 01-12-2022 08:06-0400 Respiratory rate 17 /min Alexa Slarb D[employer]IC[employer] DRIVER [facility]; [facility] Work Phone: Comment on above: Pattern: Unlabored 01-12-2022 08:06-0400 SaO2% (BldA) [Mass fraction] 96 % Alexa Slarb D[employer] DRIVER [facility]; [facility] Work Phone: Comment on above: Room air 01-12-2022 08:06-0400 Systolic blood pressure 118 mm[Hg] Alexa Villatoro D[employer] DRIVER [facility]; [facility] Work Phone: Comment on above: Patient Position: Sitting; Cuff Location : Left Arm; Cuff Size: Standard 08-17-2021 08:37-0500 Body height 185.[address] MIYA PARRA MD [facility] 08-17-2021 08:37-0500 Body weight 120.[address] MIYA PARRA MD [facility] 08-17-2021 08:37-0500 Body weight 35.06 kg/m2 DR MIAY PARRA MD [facility] 08-17-2021 08:37-0500 diastolic 62 mm[Hg] DR MIYA PARRA MD [facility] 08-17-2021 08:37-0500 Heart rate 55 /min DR MIYA PARRA MD [facility] 08-17-2021 08:37-0500 systolic 108 mm[Hg] DR MIYA PARRA MD [facility] 08-11-2021 12:50-0500 Body height 185.42 cm Carlos [...] 12:50-0500 Respiratory rate 16 /min Carlos Alberto Carrillo [...] Medicine; [facility] Work Phone: 06-11-2021 07:17-050 Body temperature 97.8 [degF] Carlos Alberto Carrillo [...] Systolic blood pressure 118 mm[Hg] Carlos Alberto Gerardo [employer] [facility]; [facility] Work Phone: Comment on above: Patient Position: Sitting; Cuff Location : Left Arm; Cuff Size: Standard 02-09-2021 08:52-0400 Body height 185.42 cm Alexa Villatoro [employer] [facility]; [facility] Work Phone: 02-09-2021 08:52-0400 Body mass index (BMI) [Ratio] 34.7 kg/m2 Alexa Carminarb [employer] [facility]; [facility] Work Phone: 02-09-2021 08:52-0400 Body surface area Derived from formula 2.42 m2 Alexa Slarb [employer] [facility]; [facility] Work Phone: 02-09-2021 08:52-0400 Body temperature 98.2 [degF] Alexa Slarb [employer] [facility]; [facility] Work Phone: 02-09-2021 08:52-0400 Body weight 119.3 kg Alexa Carminarb [employer] [facility]; [facility] Work Phone: 02-09-2021 08:52-0400 Diastolic blood pressure 96 mm[Hg] Alexa Slarb [employer] [facility]; [facility] Work Phone: Comment on above: Patient Position: Sitting; Cuff Location : Left Arm; Cuff Size: Standard 02-09-2021 08:52-0400 Heart rate 54 /min Alexa Carminarb [employer] [facility]; [facility] Work Phone: Comment on above: Pattern: Regular 02-09-2021 08:52-0400 SaO2% (BldA) [Mass fraction] 96 % Alexa Slarb [employer] [facility]; [facility] Work Phone: Comment on above: Room air 02-09-2021 08:52-0400 Systolic blood pressure 122 mm[Hg] Alexa Slarb [employer] [facility]; [facility] Work Phone: Comment on above: Patient Position: Sitting; Cuff Location : Left Arm; Cuff Size: Standard 10-05-2020 08:02-0400 BMI (Body Mass Index) 34.31 kg/m2 Carlos Alberto Carrillo LPN [facility]; [facility] Work Phone: [...] 08:02-0400 SaO2% (BldA) [Mass fraction] 96 % Carlos Alberto Carrillo LPN [facility]; [facility] Work Phone: Comment on above: Room air 06-08-2020 08:17-0500 BMI (Body Mass Index) 33.25 kg/m2 Carlos Alberto Carrillo ELISABETH [facility] Internal Medicine Work Phone: 06-08-2020 08:17-0500 Body weight 114.31 kg Carlos Alberto Gerardo BARBER [facility] Internal Medicine Work Phone: 06-08-2020 08:17-0500 BSA (Body Surface Area) 2.37 m2 Carlos Alberto Gerardo BARBER [facility] Internal Medicine Work Phone: 06-08-2020 08:170500 Height 185.42 cm Carlos Alberto Carrillo LPN [facility] Internal Medicine Work Phone: 01-31-2020 08:14-0400 BMI (Body Mass Index) 33.25 kg/m2 Carlos Alberto Carrillo ELISABETH [email or web address] [facility] Internal Medicine Work Phone: 01-31-2020 08:14-0400 Body Temperature 97.1 [degF] Carlos Alberto Carrillo [employer] [facility] Work Phone: Comment on above: Method: Infrared 01-31-2020 08:14-0400 Body weight 114.31 kg Carlos Alberto Carrillo ELISABETH [facility] Internal Medicine Work Phone: 01-31-2020 08:14-0400 BP Diastolic 70 mm[Hg] Carlos Alberto Gerardo BARBER [facility] Internal Medicine Work Phone: Comment on above: Patient Position: Sitting; Cuff Location : Left Arm; Cuff Size: Standard 01-31-2020 08:14-0400 BP Systolic 102 mm[Hg] Carlos Alberto Carrillo ELISABETH [facility] Internal Medicine Work Phone: Comment on above: Patient Position: Sitting; Cuff Location : Left Arm; Cuff Size: Standard 01-31-2020 08:14-0400 BSA (Body Surface Area) 2.37 m2 Carlos Alberto Gerardo BARBER [facility] Internal Medicine Work Phone: 01-31-2020 08:14-0400 Height 185.42 cm Carlos Alberto Carrillo LPN [facility] Internal Medicine Work Phone: 01-31-2020 08:14-0400 Pulse [...] LPN [facility]pre[facility] Internal Medicine Work Phone: 09-30-2019 07:42-0400 Body weight 103.9 kg Carlos Alberto Carrillo LPN [facility] Work Phone: 09-30-2019 07:42-0400 BSA (Body Surface Area) 2.28 m2 Carlos Alberto aCrrillo LPN [facility] Work Phone: 09-30-2019 07:42-0400 Height 185.42 cm Carlos Alberto Carrillo LPN [facility] Work Phone: 05-24-2019 08:40-0500 BMI (Body Mass Index) 30.22 kg/m2 Carlos Alberto Carrillo LPN [facility] Internal Medicine Work Phone: 05-24-2019 08:40-0500 Body Temperature 97 [degF] Carlos Alberto Carrillo LPN [facility] Work Phone: Comment on above: Method: Temporal 05-24-2019 08:40-0500 Body weight 103.9 kg Carlos Alberto Carrillo LPN [facility] Work Phone: 05-24-2019 08:40-0500 BP Diastolic 72 mm[Hg] Carlos Alberto Carrillo LPN [facility] Work Phone: Comment on above: Patient Position: Sitting; Cuff Location : Left Arm; Cuff Size: Standard 05-24-2019 08:40-0500 BP Systolic 126 mm[Hg] Carlos Alberto Carrillo LPN [facility] Work Phone: Comment on above: Patient Position: Sitting; Cuff Location : Left Arm; Cuff Size: Standard 05-24-2019 08:40-0500 BSA (Body Surface Area) 2.28 m2 Carlos Alberto Carrillo LPN [facility] Work Phone: 05-24-2019 08:40-0500 Height 185.42 cm Carlos Alberto Carrillo LPN [facility] Work Phone: 05-24-2019 08:40-0500 Pulse (Heart Rate) 67 /min Carlos Alberto Carrillo LPN [facility]prehens[facility] Work Phone: Comment on above: Pattern: Regular 05-24-2019 08:40-0500 Pulse Oximetry 99 % Steff Subramanian [facility] Internal Medicine Work Phone: Comment on above: Room air 05-24-2019 08:40-0500 Respiratory Rate 16 /min Carlos Alebrto Carrillo LPN [facility] Work Phone: Comment on above: Pattern: Unlabored 05-24-2019 08:40-0500 SaO2% (BldA) [Mass fraction] 99 % Carlos Alberto Carrillo LPN [facility]; [facility] Work Phone: Comment on above: Room air 02-20-2019 09:21-0400 BMI (Body Mass Index) 30.22 kg/m2 Carlos Alberto Carrillo LPN [facility] Work Phone: 02-20-2019 09:21-0400 BMI (Body Mass Index) 30.66 kg/m2 Steff Subramanian [facility] Work Phone: 02-20-2019 09:21-0400 Body Temperature 97.2 [degF] Carlos Alberto Carrillo LPN [facility] Work Phone: Comment on above: Method: Temporal 02-20-2019 09:21-0400 Body weight 103.89 kg Carlos Alberto Carrillo LPN [facility] Work Phone: 02-20-2019 09:21-0400 Body weight 105.41 kg Steff Subramanian [facility] Internal Medicine Work Phone: 02-20-2019 [...] Area) 2.28 m2 Carlos Alberto Carrillo LPN [facility] Internal Medicine Work Phone: 02-20-2019 09:21-0400 BSA (Body Surface Area) 2.29 m2 Steff Moris [facility] Internal Medicine Work Phone: 02-20-2019 09:21-0400 Height 185.42 cm Carlos Alberto Carrillo LPN [facility] Work Phone: 02-20-2019 09:21-0400 Pulse (Heart Rate) 48 /min Carlos Alberto Carrillo LPN [facility] Work Phone: Comment on above: Pattern: Regular 02-20-2019 09:21-0400 Pulse Oximetry 93 % Steff Moris [facility] Internal Medicine Work Phone: Comment on above: Room air 02-20-2019 09:21-0400 Respiratory Rate 16 /min Carlos Alberto Carrillo LPN [facility] Internal Medicine Work Phone: Comment on above: Pattern: Unlabored 02-20-2019 09:21-0400 SaO2% (BldA) [Mass fraction] 93 % Carlos Alberto Carrillo LPN [facility]; [facility] Work Phone: Comment on above: Room air 02-11-2019 10:22-0400 BMI (Body Mass Index) 30.66 kg/m2 Emerita Grubbs [facility] Work Phone: 02-11-2019 10:22-0400 Body Temperature 97.4 [degF] Emerita Grubbs [facility] Work Phone: Comment on above: Method: Temporal 02-11-2019 10:22-0400 Body weight 105.41 kg Emerita Grubbs [facility] Internal Medicine Work Phone: 02-11-2019 10:22-0400 BP Diastolic 74 mm[Hg] Emerita Grubbs [facility] Internal Medicine Work Phone: Comment on above: Patient Position: Sitting; Cuff Location : Left Arm; Cuff Size: Standard 02-11-2019 10:22-0400 BP Systolic 126 mm[Hg] Emerita Humera [facility] Internal Medicine Work Phone: Comment on above: Patient Position: Sitting; Cuff Location : Left Arm; Cuff Size: Standard 02-11-2019 10:22-0400 BSA (Body Surface Area) 2.29 m2 Emerita Humera [facility] Internal Medicine Work Phone: 02-11-2019 10:22-0400 Height 185.42 cm Emerita [employer] [facility] Internal Medicine Work Phone: 02-11-2019 10:22-0400 Pulse (Heart Rate) 75 /min Emerita Humera [facility] Internal Medicine Work Phone: Comment on above: Pattern: Regular 02-11-2019 10:22-0400 Pulse Oximetry 96 % Steff Subramanian [facility] Internal Medicine Work Phone: Comment on above: Room air 02-11-2019 10:22-0400 Respiratory Rate 18 /min Emerita Grubbs [facility] Internal Medicine Work Phone: Comment on above: Pattern: Unlabored 02-11-2019 10:22-0400 SaO2% (BldA) [Mass fraction] 96 % Emerita Naples [facility]; [facility] Work Phone: Comment on above: Room air 02-08-2019 08:52-0400 BMI (Body Mass Index) 30.66 kg/m2 Alexa Irving [facility] Internal Medicine Work Phone: 02-08-2019 08:52-0400 Body Temperature 98.7 [degF] Alexa Villatoro LPN [facility] Internal Medicine Work Phone: 02-08-2019 08:52-0400 Body weight 105.41 kg Alexa Villatoro LPN [facility] Work Phone: 02-08-2019 08:52-0400 BP Diastolic 82 mm[Hg] Alexa Villatoro LPN [facility] Work Phone: Comment on above: Patient Position: Sitting; Cuff Location : Left Arm; Cuff Size: Standard 02-08-2019 08:52-0400 BP Systolic 126 mm[Hg] Alexa Villatoro LPN [facility] Work Phone: Comment on above: Patient Position: Sitting; Cuff Location : Left Arm; Cuff Size: Standard 02-08-2019 08:52-0400 BSA (Body Surface Area) 2.29 m2 Alexa Villatoro LPN [facility] Work Phone: 02-08-2019 08:52-0400 Height 185.42 cm Alexa Villatoro LPN [facility] Work Phone: 02-08-2019 08:52-0400 Pulse (Heart Rate) 84 /min Alexa Villatoro LPN [facility] Work Phone: Comment on above: Pattern: Regular 02-08-2019 08:52-0400 Pulse Oximetry 95 % Steff Subramanian [facility] Work Phone: Comment on above: Room air 02-08-2019 08:52-0400 Respiratory Rate 18 /min Alexa Villatoro LPN [facility] Work Phone: Comment on above: Pattern: Unlabored 02-08-2019 08:52-0400 SaO2% (BldA) [Mass fraction] 95 % Alexa Villatoro LPN [facility]; [facility] Work Phone: Comment on above: Room air 08-22-2018 08:25-0500 BMI (Body Mass Index) 33.25 kg/m2 Madelyn Lina [facility] Work Phone: 08-22-2018 08:25-0500 Body Temperature 97.1 [degF] Madelyn Mills [facility] Work Phone: Comment on above: Method: Temporal 08-22-2018 08:25-0500 Body weight 114.31 kg Madelyn Mills [facility] Internal Medicine Work Phone: 08-22-2018 08:25-0500 BP Diastolic 70 mm[Hg] Madelyn Mills [facility] Internal Medicine Work Phone: Comment on above: Patient Position: Sitting; Cuff Location : Left Arm; Cuff Size: Standard 08-22-2018 08:25-0500 BP Systolic 116 mm[Hg] Madelyn Mills [facility] Internal Medicine Work Phone: Comment on above: Patient Position: Sitting; Cuff Location : Left Arm; Cuff Size: Standard 08-22-2018 08:25-0500 BSA (Body Surface Area) 2.37 m2 Madelyn Mills [facility] Internal Medicine Work Phone: 08-22-2018 08:25-0500 Height 185.42 cm Madelyn Mills [facility] Work Phone: 08-22-2018 08:25-0500 Pulse (Heart Rate) 51 /min Madelyn Mills [facility] Medicine Work Phone: Comment on above: Pattern: Regular 08-22-2018 08:25-0500 Pulse Oximetry 98 % Steff Subramanian [facility] Medicine Work Phone: Comment on above: Room air 08-22-2018 08:25-0500 Respiratory Rate 17 /min Madelyn Mills [facility] Internal Medicine Work Phone: Comment on above: Pattern: Unlabored 08-22-2018 08:25-0500 SaO2% (BldA) [Mass fraction] 98 % Madelyn Mills [facility]; [facility] Work Phone: Comment on above: Room air 05-21-2018 09:42-0500 BMI (Body Mass Index) 34.86 kg/m2 Madelyn Mills [facility] Internal Medicine Work Phone: 05-21-2018 09:42-0500 Body Temperature 97.8 [degF] Madelyn Mills [facility] Internal Medicine Work Phone: Comment on above: Method: Temporal 05-21-2018 09:42-0500 Body weight 119.86 kg Madelyn Mills [facility] Medicine Work Phone: 05-21-2018 09:42-0500 BP Diastolic 72 mm[Hg] Madelyn Mills [facility] Work Phone: Comment on above: Patient Position: Sitting; Cuff Location : Left Arm; Cuff Size: Standard 05-21-2018 09:42-0500 BP Systolic 128 mm[Hg] Madelyn Mills [facility] Medicine Work Phone: Comment on above: Patient Position: Sitting; Cuff Location : Left Arm; Cuff Size: Standard 05-21-2018 09:42-0500 BSA (Body Surface Area) 2.42 m2 Madelyn Mills [facility] Work Phone: 05-21-2018 09:42-0500 Height 185.42 cm Madelyn Mills [facility] Work Phone: 05-21-2018 09:42-0500 Pulse (Heart Rate) 66 /min Madelyn Mills [facility] Work Phone: Comment on above: Pattern: Regular 05-21-2018 09:42-0500 Pulse Oximetry 96 % Steff Subramanian [facility] Medicine Work Phone: Comment on above: Room air 05-21-2018 09:42-0500 Respiratory Rate 17 /min Madelyn Mills [facility] Medicine Work Phone: Comment on above: Pattern: Unlabored 05-21-2018 09:42-0500 SaO2% (BldA) [Mass fraction] 96 % Madelyn Mills [facility]; [facility] Work Phone: Comment on above: Room air 05-21-2018 09:42-0500 Weight 119.86 kg Steff Subramanian [facility] Medicine Work Phone: 02-16-2018 08:11-0400 BMI (Body Mass Index) 32.59 kg/m2 Madelyn Mills [facility] Internal Medicine Work Phone: 02-16-2018 08:11-0400 Body Temperature 97.3 [degF] Madelyn Mills [facility] Work Phone: Comment on above: Method: Temporal 02-16-2018 08:11-0400 Body weight 112.04 kg Madelyn Mills [facility] Work Phone: 02-16-2018 08:11-0400 BP Diastolic 70 mm[Hg] Madelyn Mills [facility] Work Phone: Comment on above: Patient Position: Sitting; Cuff Location : Left Arm; Cuff Size: Standard 02-16-2018 08:11-0400 BP Systolic 102 mm[Hg] Madelyn Mills [facility] Work Phone: Comment on above: Patient Position: Sitting; Cuff Location : Left Arm; Cuff Size: Standard 02-16-2018 08:11-0400 BSA (Body Surface Area) 2.35 m2 Madelyn Mills [facility] Work Phone: 02-16-2018 08:11-0400 Height 185.42 cm Madelyn Mills [facility] Work Phone: 02-16-2018 08:11-0400 Pulse (Heart Rate) 88 /min Madelyn Mills [facility] Work Phone: Comment on above: Pattern: Regular 02-16-2018 08:11-0400 Pulse Oximetry 97 % Steff Subramanian [facility] Internal Medicine Work Phone: Comment on above: Room air 02-16-2018 08:11-0400 Respiratory Rate 16 /min Madelyn Mills [facility] Medicine Work Phone: Comment on above: Pattern: Unlabored 02-16-2018 08:11-0400 SaO2% (BldA) [Mass fraction] 97 % Madelyn Mills [facility]; [facility] Work Phone: Comment on above: Room air 02-16-2018 08:11-0400 Weight 112.04 kg Steff Subramanian [facility] Medicine Work Phone: 01-01-2018 13:28-0400 BMI (Body Mass Index) 32.59 kg/m2 Carlos Alberto Carrillo LPN [facility] Medicine Work Phone: 01-01-2018 13:28-0400 Body Temperature 98 [degF] Carlos Alberto Carrillo LPN [facility] Work Phone: 01-01-2018 13:28-0400 Body weight 112.04 kg Carlos Alberto Carrillo LPN [facility] Medicine Work Phone: 01-01-2018 13:28-0400 BP Diastolic 76 mm[Hg] Carlos Alberto Carrillo LPN [facility] Work Phone: Comment on above: Patient Position: Sitting; Cuff Location : Left Arm; Cuff Size: Standard 01-01-2018 13:28-0400 BP Systolic 142 mm[Hg] Carlos Alberto Carrillo LPN [facility] Internal Medicine Work Phone: Comment on above: Patient Position: Sitting; Cuff Location : Left Arm; Cuff Size: Standard 01-01-2018 13:28-0400 BSA (Body Surface Area) 2.35 m2 Carlos Alberto Carrillo LPN [facility] Internal Medicine Work Phone: 01-01-2018 13:28-0400 Height 185.42 cm Carlos Alberto Carrillo LPN [facility] Internal Medicine Work Phone: 01-01-2018 13:28-0400 Pulse (Heart Rate) 71 /min Carlos Alberto Carrillo LPN [facility] Work Phone: Comment on above: Pattern: Regular 01-01-2018 13:28-0400 Pulse Oximetry 95 % Steff Moris [facility] Internal Medicine Work Phone: Comment on above: Room air 01-01-2018 13:28-0400 Respiratory Rate 17 /min Carlos Alberto Carrillo LPN [facility] Internal Medicine Work Phone: Comment on above: Pattern: Unlabored 01-01-2018 13:28-0400 SaO2% (BldA) [Mass fraction] 95 % Carlos Alberto Carrillo LPN [facility]; [facility] Work Phone: Comment on above: Room air 01-01-2018 13:28-0400 Weight 112.04 kg Steff Brookematthew [facility] Medicine Work Phone: 10-30-2015 10:43-0400 BMI (Body Mass Index) 32.59 kg/m2 DEVON Rosario LPN [facility] Internal Medicine Work Phone: 10-30-2015 10:43-0400 Body Temperature 97.6 [degF] DEVON Rosario [facility] Internal Medicine Work Phone: Comment on above: Method: Temporal 10-30-2015 10:43-0400 Body weight 112.04 kg DEVON Rosario LPN [facility] Work Phone: 10-30-2015 10:43-0400 BP Diastolic 80 mm[Hg] DEVON Rosario LPN [facility] Work Phone: Comment on above: Patient Position: Sitting; Cuff Location : Left Arm; Cuff Size: Large 10-30-2015 10:43-0400 BP Systolic 120 mm[Hg] DEVON Rosario LPN [facility] Work Phone: Comment on above: Patient Position: Sitting; Cuff Location : Left Arm; Cuff Size: Large 10-30-2015 10:43-0400 BSA (Body Surface Area) 2.35 m2 DEVON Rosario LPN [facility] Work Phone: 10-30-2015 10:43-0400 Height 185.42 cm DEVON Rosario LPN [facility] Work Phone: 10-30-2015 10:43-0400 Pulse (Heart Rate) 64 /min DEVON Rosario LPN [facility] Work Phone: Comment on above: Pattern: Regular 10-30-2015 10:43-0400 Pulse Oximetry 96 % Steff Subramanian [facility] Work Phone: Comment on above: Room air 10-30-2015 10:43-0400 Respiratory Rate 18 /min DEVON Rosario LPN [facility] Work Phone: Comment on above: Pattern: Unlabored 10-30-2015 10:43-0400 SaO2% (BldA) [Mass fraction] 96 % DEVON Rosario LPN [facility]; [facility] Work Phone: Comment on above: Room air 10-30-2015 10:43-0400 Weight 112.04 kg Steff Subramanian [facility] Work Phone: 07-08-2011 13:42-0500 BMI (Body Mass Index) 33.64 kg/m2 DEVON Rosario LPN [facility] Work Phone: 07-08-2011 13:42-0500 Body Temperature 98.2 [degF] DEVON Rosario LPN [facility] Work Phone: Comment on above: Method: Oral 07-08-2011 13:42-0500 Body weight 115.67 kg DEVON Rosario LPN [facility] Work Phone: 07-08-2011 13:42-0500 BP Diastolic 76 mm[Hg] DEVON Rosario LPN [facility] Work Phone: Comment on above: Patient Position: Sitting; Cuff Location : Left Arm; Cuff Size: Standard 07-08-2011 13:42-0500 BP Systolic 122 mm[Hg] [facility] Work Phone: Comment on above: Patient Position: Sitting; Cuff Location : Left Arm; Cuff Size: Standard 07-08-2011 13:42-0500 BSA (Body Surface Area) 2.39 m2 DEVON Rosario LPN [facility] Work Phone: 07-08-2011 13:42-0500 Height 185.42 cm [facility] Work Phone: 07-08-2011 13:42-0500 Pulse (Heart Rate) 70 /min [facility] Work Phone: Comment on above: Pattern: Regular 07-08-2011 13:42-0500 Respiratory Rate 18 /min DEVON Rosario LPN [facility] Medicine Work Phone: Comment on above: Pattern: Unlabored 07-08-2011 13:42-0500 Weight 115.67 kg Steff Subramanian [facility] Work Phone: 04-15-2009 08:24-0400 Body Temperature 97.4 [degF] Sandra [facility] Work Phone: Comment on above: Method: Oral 04-15-2009 08:24-0400 Body weight 0 kg Sandra [facility] Work Phone: 04-15-2009 08:24-0400 BP Diastolic 74 mm[Hg] Sandra [facility] Work Phone: Comment on above: Patient Position: Sitting; Cuff Location : Right Arm; Cuff Size: Large 04-15-2009 08:24-0400 BP Systolic 136 mm[Hg] [facility] Work Phone: Comment on above: Patient Position: Sitting; Cuff Location : Right Arm; Cuff Size: Large 04-15-2009 08:24-0400 Head Circumference 0 cm Steff [facility] Internal Medicine Work Phone: 04-15-2009 08:24-0400 Head Occipital-frontal circumference 0 cm [facility] [place] [facility]; [facility] Work Phone: 04-15-2009 08:24-0400 Height 0 cm [facility] Work Phone: 04-15-2009 08:24-0400 Pulse (Heart Rate) 68 /min [facility] [place] [facility] Work Phone: Comment on above: Pattern: Regular 04-15-2009 08:24-0400 Respiratory Rate 18 /min [facility] Work Phone: Comment on above: Pattern: Unlabored 04-15-2009 08:24-0400 [facility] Work Phone: 09-18-2008 13:31-0400 Body weight 115.67 kg DEVON Rosario [facility] Internal Medicine Work Phone: 09-18-2008 13:31-0400 BP Diastolic 78 mm[Hg] DEVON Rosario [facility] Internal Medicine Work Phone: Comment on above: Patient Position: Sitting; Cuff Location : Left Arm; Cuff Size: Standard 09-18-2008 13:31-0400 BP Systolic 122 mm[Hg] DEVON Rosario [facility] Work Phone: Comment on above: Patient Position: Sitting; Cuff Location : Left Arm; Cuff Size: Standard 09-18-2008 13:31-0400 Head Circumference 0 cm Setff [facility] Internal Medicine Work Phone: 09-18-2008 13:31-0400 Head Occipital-frontal circumference 0 cm DEVON [facility]; [facility] Work Phone: 09-18-2008 13:31-0400 Height 0 cm DEVONCEZAR Rosario LPN [facility] Work Phone: 09-18-2008 13:31-0400 Pulse (Heart Rate) 70 /min DEVON Rosario LPN [facility] Internal Medicine Work Phone: Comment on above: Pattern: Regular 09-18-2008 13:31-0400 Respiratory Rate 16 /min DEVON Rosario LPN [facility] Work Phone: Comment on above: Pattern: Unlabored 09-18-2008 13:31-0400 Weight 115.67 kg Steff Subramanian [facility] Internal Medicine Work Phone: 08-12-2008 09:52-0500 Body weight 102.06 kg DEVON Rosario LPN [facility] Internal Medicine Work Phone: 08-12-2008 09:52-0500 BP Diastolic 84 mm[Hg] DEVON Rosario LPN [facility] Work Phone: Comment on above: Patient Position: Sitting; Cuff Location : Left Arm; Cuff Size: Standard 08-12-2008 09:52-0500 BP Systolic 120 mm[Hg] DEVON Rosario LPN [facility] Work Phone: Comment on above: Patient Position: Sitting; Cuff Location : Left Arm; Cuff Size: Standard 08-12-2008 09:52-0500 Head Circumference 0 cm Steff Subramanian [facility] Internal Medicine Work Phone: 08-12-2008 09:52-0500 Head Occipital-frontal circumference 0 cm DEVON Rosario LPN [facility] Internal Medicine; [facility] Work Phone: 08-12-2008 09:52-0500 Height 0 cm DEVON Rosario LPN [facility] Work Phone: 08-12-2008 09:52-0500 Pulse (Heart Rate) 70 /min DEVON Rosario LPN [facility] Internal Medicine Work Phone: Comment on above: Pattern: Regular 08-12-2008 09:52-0500 Respiratory Rate 16 /min DEVON Rosario LPN [facility] Internal Medicine Work Phone: Comment on above: Pattern: Unlabored 08-12-2008 09:52-0500 Weight 102.06 kg Steff Subramanian [facility] Work Phone: 10-01-2007 08:07-0400 BMI (Body Mass Index) 29.68 kg/m2 Sravanthi Yin LPN [facility] Work Phone: 10-01-2007 08:07-0400 Body Temperature 96.9 [degF] Sravanthi Yin LPN [facility] Work Phone: Comment on above: Method: Oral 10-01-2007 08:07-0400 Body weight 102.06 kg Sravanthi Yin LPN [facility] Work Phone: 10-01-2007 08:07-0400 BP Diastolic 76 mm[Hg] Sravanthi Yin LPN [facility] [...] Phone: 10-01-2007 08:07-0400 Head Circumference 0 cm Steff Subramanian [facility] Internal Medicine Work Phone: 10-01-2007 08:07-0400 Head Occipital-frontal circumference 0 cm Sravanthi Yin LPN [facility] Internal Medicine; [facility] Work Phone: 10-01-2007 08:07-0400 Height 185.42 cm Sravanthi Yin LPN [facility] Work Phone: 10-01-2007 08:07-0400 Pulse (Heart Rate) 66 /min Sravanthi Yin LPN [facility] Work Phone: Comment on above: Pattern: Regular 10-01-2007 08:07-0400 Pulse Oximetry 98 % Steff Subramanian [facility] Internal Medicine Work Phone: Comment on above: Room air 10-01-2007 08:07-0400 Respiratory Rate 17 /min Sravanthi Yin [employer] [facility] Work Phone: Comment on [...] Date Encounter Type Care Provider Facility Start: 04-09-2025 End: 04-09-[address] Peyton Rucker MD -[facility] Work Phone: Start: 04-09-2025 End: 04-09-2025 ambulatory Roman Nichols LOAN ADVISER-C Work Phone: -[facility] Start: 04-02-2025 End: 04-02-2025 ambulatory Roman Nichols LOAN ADVISER-C Work Phone: -Laboratory Start: 04-02-2025 End: 04-02-2025 Patient encounter procedure Roman Nichols LOAN ADVISER-C -Laboratory Work Phone: Start: 04-02-2025 End: 04-02-2025 ambulatory Roman Nichols Facility:[facility] Start: 02-17-2025 Non-patient / Non-visit Dr. Virginia WASSERMAN -[facility] Work Phone: Start: 02-17-2025 End: 02-17-2025 ambulatory Roman Nichols LOAN ADVISER-C Work Phone: -Pulmonary Services/Neurology Start: 02-17-2025 End: 02-17-2025 Patient encounter procedure Hodan Lockett LOAN ADVISER-C -Pulmonary Services/Neurology Work Phone: Start: 02-17-2025 End: 02-17-2025 ambulatory Hodan Lockett LOAN ADVISER Facility:[facility] Start: 01-17-2025 End: 01-17-2025 ambulatory Roman Nichols LOAN ADVISER-C Work Phone: -Pulmonary Services/Neurology Start: 01-17-2025 End: 01-17-2025 Patient encounter procedure Hodan Lockett LOAN ADVISER-C -Pulmonary Services/Neurology Work Phone: Start: 01-17-2025 End: 01-17-2025 ambulatory Hodan Lockett LOAN ADVISER Facility:[facility] Start: 01-15-2025 End: 01-15-2025 ambulatory Roman Nichols LOAN ADVISER-C Work Phone: -Laboratory Start: 01-15-2025 End: 01-15-2025 Patient encounter procedure Hodan Lockett LOAN ADVISER-C -Laboratory Work Phone: Start: 01-15-2025 End: 01-15-2025 ambulatory Hodan Lockett NP Facility:[facility] Start: 12-04-2024 ambulatory Roman Nichols Facility :[facility] Start: 12-04-2024 Non-patient / Non-visit Dr. Peyton irene MD -[facility] Start: 12-04-2024 End: 12-04-2024 ambulatory Roman Nichols LOAN ADVISER-C Work Phone: [facility] Work Phone: Start: 12-04-2024 End: 12-04-[address] Peyton Rucker MD -Cardiovascular Services Work Phone: Start: 12-04-2024 End: 12-04-2024 ambulatory Roman Nichols Facility:[facility] Start: 11-06-2024 End: 11-06-2024 ambulatory Roman Nichols LOAN ADVISER-C Work Phone: [facility] Work Phone: Start: 11-06-2024 End: 11-06-[address] Peyton Rucker MD -Laboratory Work Phone: Start: 11-06-2024 End: 11-06-[address] Peyton Rucker MD -[facility] Work Phone: Start: 11-06-2024 End: 11-06-2024 ambulatory Roman Nichols [facility] Start: 11-06-2024 End: 11-06-2024 ambulatory Roman Nichols Facility:[facility] Start: 05-27-2024 End: 05-28-2024 ambulatory Peytonmichel Rucker Facility:[facility] Start: 09-06-2023 End: 09-06-2023 ambulatory 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; Encounter for monitoring flecainide therapy; At risk for stroke; Anticoagulant long-term use; Obesity, Class I, BMI 30-34.9 Start: 06-09-2023 End: 06-09-2023 ambulatory [facility] Work Phone: Start: 06-09-2023 End: 06-09-2023 Patient encounter procedure [facility]-Laboratory Work Phone: Start: 11-30-2022 End: 12-06-2022 Office outpatient visit 15 minutes Roman Nichols CNP Work Phone: [facility] Start: 11-21-2022 ambulatory Steff Brookematthew [facility] Start: 07-29-2022 End: 07-31-2022 Office outpatient visit 15 minutes Roman Nichols CNP Work Phone: [facility] Start: 06-12-2022 End: 06-12-2022 ambulatory LOAN ADVISER-C Steff Subramanian LOAN ADVISER Work Phone: [facility] Work Phone: Start: 06-12-2022 End: 06-12-2022 Patient encounter procedure LOAN ADVISER-C Steff Subramanian LOAN ADVISER Work Phone: [facility] Start: 06-11-2022 End: 06-11-2022 Emergency department patient visit LOAN ADVISER-C Steff Subramanian LOAN ADVISER Work Phone: [facility]-Emergency Department Start: 05-24-2022 End: 05-24-2022 ambulatory MIYA PARRA MD Facility:[facility] Start: 05-24-2022 End: 05-24-[address] MIYA PARRA MD [facility] Start: 05-10-2022 End: 05-10-2022 Office consultation new/estab [...] Patient encounter procedure DR MIYA PARRA MD [facility] Start: 05-02-2022 End: 05-02-[address] MIYA PARRA MD [facility] Start: 04-15-2022 End: 04-27-2022 Office outpatient visit 15 minutes Roman Nichols CNP Work Phone: [facility] Start: 03-16-2022 End: 03-16-2022 Admission to same day surgery center LOAN ADVISER-C Steff Subramanian LOAN ADVISER Work Phone: [facility] Start: 03-16-2022 End: 03-16-2022 Patient encounter procedure LOAN ADVISER-C Steff Subramanian LOAN ADVISER Work Phone: [facility] Start: 01-12-2022 End: 01-12-2022 Office outpatient visit 25 minutes Roman Nichols TRIM STENCIL MAKER Work Phone: [facility] Start: 08-31-2021 End: 08-31-2021 ambulatory MIYA PARRA MD Facility:[facility] Start: 08-17-2021 End: 08-18-2021 ambulatory MIYA PARRA MD Facility:[facility] Start: 08-17-2021 End: 08-18-2021 ambulatory MIYA PARRA MD Facility:[facility] Start: 08-17-2021 End: 08-17-[address] MIYA PARRA MD [facility] Start: 08-13-2021 End: 08-14-2021 ambulatory MIYA PARRA MD Facility:[facility] Start: 08-11-2021 End: 08-11-2021 Office outpatient visit 25 minutes Steff Subramanian TRIM STENCIL MAKER Work Phone: [facility] Start: 08-11-2021 End: 08-11-2021 Preprocedural examination done Carlos Alberto Carrillo LPN [facility]; [facility] Work Phone: Start: 07-30-2021 Patient encounter status LOAN ADVISER-C Steff Subramanian LOAN ADVISER Work Phone: [facility] Start: 07-14-2021 End: 07-14-2021 Office outpatient visit 15 minutes Steff Subramanian TRIM STENCIL MAKER Work Phone: [facility] Start: 06-11-2021 End: 06-11-2021 Office outpatient visit 25 minutes Steff Subramanian TRIM STENCIL MAKER Work Phone: [facility] Start: 03-17-2021 End: 03-17-2021 Admission to establishment Steff Subramanian CNP Work Phone: [facility] Start: 02-09-2021 End: 02-09-2021 Office outpatient visit 25 minutes Steff Subramanian CNP Work Phone: [facility] Start: 11-16-2020 End: 11-16-2020 Annotation/Addendum Steff Subramanian CNP Work Phone: [facility] Start: 10-05-2020 End: 10-05-2020 Office outpatient visit 25 minutes Steff Subramanian [facility] Start: 10-05-2020 Review Steff [...] [facility] Start: 03-13-2019 Review Steff Moris [facility] Start: 02-28-2019 End: 02-28-2019 Annotation/Addendum Steff Duran [employer] al Medicine Start: 02-20-2019 End: 02-20-2019 Office outpatient visit 15 minutes Steff Subramanian [facility] Start: 02-20-2019 Review Steff Brookematthew [facility] Start: 02-11-2019 End: 02-11-2019 Office outpatient visit 15 minutes Steff Subramanian [facility] Start: 02-08-2019 Review Steff Moris [facility] Start: 02-08-2019 End: 02-08-2019 Office outpatient visit 25 minutes Steff Subramanian [facility] Start: 08-22-2018 End: 08-22-2018 Office outpatient visit 25 minutes Steff Subramanian [facility] Start: 08-06-2018 End: 08-06-2018 Annotation/Addendum Steff Subramanian [facility] Start: 05-22-2018 End: 05-22-2018 Annotation/Addendum Steff Subramanian [facility] [employer] [facility] [employer] [facility] Start: 05-21-2018 End: 05-21-2018 Office outpatient visit 25 minutes Steff Subramanian [facility] Start: 04-09-2018 End: 04-09-2018 Annotation/Addendum Steff Subramanian [facility] [employer] [facility] [employer] [facility] Start: 02-23-2018 End: 02-23-2018 Annotation/Addendum Steff Subramanian [facility] [employer] Start: 02-16-2018 End: 02-16-2018 Office outpatient visit 25 minutes Steff Subramanian [facility] Start: 01-02-2018 End: 01-02-2018 Annotation/Addendum Steff Subramanian [facility] [employer] [facility] [employer] [facility] Start: 01-01-2018 End: 01-01-2018 Office outpatient visit 15 minutes tSeff Subramanian [facility] Start: 08-06-2017 End: 08-06-2017 Ambulatory [facility] Start: 10-30-2015 End: 10-30-2015 Office outpatient visit 40 minutes Steff Subramanian [facility] Start: 10-30-2015 End: 10-30-2015 Physical examination Roman Nichols CNP Work Phone: [facility] Start: 07-08-2011 End: 07-08-2011 Patient encounter procedure Steff Subramanian [facility] Start: 04-15-2009 End: 04-15-2009 Office outpatient visit 25 minutes Steff Subramanian [facility] Start: 09-18-2008 End: 09-18-2008 Office outpatient visit 15 minutes Steff Subramanian [facility] Start: 08-12-2008 End: 08-12-2008 Patient encounter procedure Steff Jenkinsa [facility] Start: 08-12-2008 End: 08-12-2008 Patient encounter status Roman Nichols CNP Work Phone: [facility] Start: 10-01-2007 End: 10-01-2007 Patient encounter procedure Steff Jenkinsnorris [facility] Start: 09-18-2007 End: 09-18-2007 Patient encounter procedure Steff Jenkinsnorris [facility] Start: 09-18-2007 End: 09-18-2007 Patient encounter status Roman Nichols CNP Work Phone: [facility] Physical examination Carlos Alberto Carrillo LPN [facility]; [facility] Work Phone: Comment on above: scope 4-08 Physical examination Carlos Alberto Carrillo LPN [facility]; [facility] Work Phone: Comment on above: scope 4-08 Physical examination Carlos Alberto Carrillo LPN [facility]; [facility] Work Phone: Comment on above: scope 4-08 Physical examination Carlos Alberto Carrillo LPN [facility]; [facility] Work Phone: Comment on above: scope 4-08 Physical examination Alexa Slarb [employer]IVER [facility]; [facility] Work Phone: Comment on above: scope 4-08 Physical examination Kimberlyn Swain MA [facility]; [facility] Work Phone: Comment on above: scope 4-08 Physical examination Alexa Villatoro LPN [facility]; [facility] Work Phone: Comment on above: scope 4-08 Physical examination Kimberlyn Swain MA [facility]; [facility] Work Phone: Comment on above: scope 4-08 Physical examination Kimberlyn Swain MA [facility]; [facility] Work Phone: Comment on above: scope 4-08 Preprocedural examin ation done Carlos Alberto Carrillo LPN [facility]; [facility] Work Phone: Preprocedural examin ation done Alexa Villatoro [employer] [facility]; [facility] Work Phone: Preprocedural examin ation done Kimberlyn Swain MA [facility]; [facility] Work Phone: Preprocedural examin ation done Roman Nichols TRIM STENCIL MAKER Work Phone: [facility]; [facility] Work Phone: Comment on above: Physical exam and bl ood work are benign. Patient has no contraindications for proceeding with knee surgery at this time. He will be stopping anticoag 4 days prior to surgery. Please call with any questions or concerns. Preprocedural examin ation done Kimberlyn Swain WINTER [facility]; [facility] Work Phone: Comment on above: Physical exam and bl ood work are benign. Patient has no contraindications for proceeding with knee surgery at this time. He will be stopping anticoag 4 days prior to surgery. Please call with any questions or concerns. Preprocedural examin ation done Kimberlyn Swain WINTER [facility] Internal Medicine; [facility] [...] 12-04-2024 Prostate specific antigen measurement Roman Nichols NP-C Work Phone: Comment on above: This test [...] US, Unilateral Procedure Note: See Note; NOTES: [facility] Cardiovascular Services [address] [place] [address] Venous Duplex US, Unilateral 06/12/22 1151 MR#: [id number] Acct: [id number] Name: NIYA MCKEON Rep #: [id number] : 1955 67 From: Adair Doshi MD [...] Physician: Cleo Ruiz Performed By: Chris Gonzalez, Dolores 06/12/22 1542 Date Adair Doshi MD CC: HENRI Nichols; Dr. Cleo Ruiz MD Date Dictated: 06/12/22 1151 Date Transcribed: 06/12/221541 Scientific Laboratory Supervisor: Signed Roman Nichols [facility] Work Phone: Start: 06-11-2022 End: 06-11-2022 Emergency Department Summary Procedure Note: See Note; NOTES: [facility] Medical Records Department [address] [place] [address] Emergency Department Summary 06/11/22 MR#: [id number] Acct: [id number] Name: NIYA MCKEON Rep #: [id number] : 1955 67 From: Cleo Ruiz MD PCP: HENRI Cornell Status:DEP ER Location: ED HPI History of Present Illness Chief Complaint: Lower Extremity Injury Detail of Chief Complaint: Right leg swelling Informant: patient Onset/Context/Timing Onset: Days Context: Gradual Onset Narrative Narrative: Patient present secondary to right leg swelling. He had a knee replacement on May 24 at [facility]. He has noted increased swelling in his calf with pain. Patient has a history of A. fib and is currently on Xarelto. He states he has been compliant in taking his blood thinner. He does note that he stopped using his compression sock about 2 weeks after the surgery. He was walking around at [facility] this afternoon when he had increased pain. He did take oxycodone and Tylenol prior to arrival. [facility] Medical History Atherosclerotic heart disease of [place] coronary artery without angina pectoris Atrial enlargement, [...] Orders: Venous Duplex US, Unilateral (Stat) Facility: [facility] - Location: [facility] Ordered By: Dr. Cleo Ruiz Primary Care Provider: Roman Nichols Referrals: Roman Nichols NP-C [Primary Care Provider] - 1 Week if not improving Disposition Disposition: Home, Self Care What to do if you have Problems For any increased pain, shortness of breath, bleeding, nausea or vomiting, chest pain, or any unexpected problems, contact your Primary Care Provider. Call [facility] ([phone]) or report to the closest Emergency Room. Call 911 if necessary. 06/11/222127 <Electronically signed by Cleo Ruiz MD> Cosigner Signature (if applicable): CC: HENRI Nichols Signed Roman Nichols CNP Work Phone: Start: 05-24-2022 Arthroplasty of right knee DR MIYA PARRA MD Start: 03-16-2022 End: 03-16-2022 Cardiology Visit Report Procedure Note: See Note; NOTES: [facility] [address] [place] [address] OFFICE VISIT Date of Service: 03/16/22 MR#: [id number] Acct: [id number] Name: NIYA MCKEON Rep #: [id number] : 1955 Provider: BRITTENY Guillermo Age/Sex: 66/M [facility] [facility] Status: Signed HPI HPI History of [...] bleeding issues. 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 He is [...] 95 Intake Visit Reasons: 6 M FU Compensation Supervisor Required: No Is patient in pain?: No [...] Instructions PO DAILY 03/16/22 [History Confirmed 03/16/22] [facility] Medical History Atherosclerotic heart disease of [place] coronary artery without angina pectoris Atrial enlargement, [...] complications. Cardiac catheterization from 02/02/2018: PROCEDURE(S) PERFORMED FT04-OCM/COR/LV CLINICAL PROFILE AND INDICATIONS Heart Failure: NYHA [...] and Plan (1) Atherosclerotic heart disease of [place] coronary artery without angina pectoris: Status: Chronic Qualifiers: [place] vs. transplanted heart: [place] heart Qualified Code(s): I25.10 - Atherosclerotic heart disease of [place] coronary artery without angina pectoris Comment: Nonobstructive coronary arteries (<30% stenosis in LAD, CX, and RCA: left main normal) per [facility] 02/02/[address] Chino @ [facility] Plan: Reviewed heart catheterization from 2017. He does have less than 30% disease [...] Code(s): I48.0 - Paroxysmal atrial fibrillation Comment: MARQUISE 03/02/2018; Plan: Patient has had minimal recurrence. [...] vis,est,level 3 Diagnoses Atherosclerotic heart disease of [place] coronary artery without angina pectoris I25.10 [place] vs. transplanted heart: [place] heart Nonischemic cardiomyopathy I42.8 Atrial fibrillation I48.0 Atrial fibrillation type: paroxysmal Preoperative cardiovascular examination Z01.810 Coding Level of Care Code Off vis,est,level 3 Diagnoses Atherosclerotic heart disease of [place] coronary artery without angina pectoris I25.10 [place] vs. transplanted heart: [place] heart Nonischemic cardiomyopathy I42.8 Atrial fibrillation I48.0 Atrial fibrillation type: paroxysmal Preoperative cardiovascular examination Z01.810 03/16/22 1258 <Electronically signed by Lisa Roy> Date Lisa Nascimentoigner Signature: Date (if applicable) CC: HENRI Nichols CNP Work Phone: Start: 03-16-2022 End: 03-20-2022 12 Lead EKG performed by [facility] Procedure Note: See Note; NOTES: [facility] [address] [place] [address] 12 Lead EKG performed by [facility] 03/16/22 1023 MR#: [id number] Acct: [id number] Name: NIYA MCKEON Rep #: [id number] : 1955 66 From: Lisa LUGO PA Attending Dr: BRITTNEY Bauer Status: DEP AMB Ordering Dr: Lisa Khalil Date: 01/28 [place] [facility] Sex: M C Admitted: [facility]/12 Lead EKG performed by [facility] ECG Report Interpretation Si nus Bradycardia -First degree A-V block Electronically signed on 03/20/2022 at 18:48 by Karan Lugo [employer] Version 8610 03/20/221852 Date Lisa LUGO CC: HENRI Subramanian Date Dictated: 03/16/22 1023 Date Transcribed: 03/16/22 102 Scientific Laboratory Supervisor: MMCali Signed Roman Nichols TRIM STENCIL MAKER Work Phone: Start: 07-30-2021 End: 07-30-2021 12 Lead EKG performed by [facility] Comments: See Note; NOTES: [facility] [address] [place] [address] 12 Lead EKG performed by [facility] 07/30/21 1453 MR#: [id number] Acct: [id number] Name: NIYA MCKEON Rep #: [id number] : 1955 66 From: Karan Lugo MD Attending Dr: Dr. Karan Lugo MD Status: DE P AMB Ordering Dr: Karan Lugo MD Date: 07/30/21 Location: [facility] Sex: M C Admitted: [facility]/12 Lead EKG performed by [facility] ECG Report Interpretation Si nus Bradycardia Electronically signed on 07/30/2021 at 15:50 by Karan Lugo [employer] Version [id number] 07/30/21 1553 Date Karan Lugo MD CC: LOAN ADVISERKaroC Steff Subramanian Date Dictated: 07/30/211452 Date Transcribed: 07/30/211452 Scientific Laboratory Supervisor: PM Signed Steff Subramanian TRIM STENCIL MAKER Work Phone: Start: 07-30-2021 End: 07-30-2021 Cardiology Visit Report Comments: See Note; NOTES: [facility] [place], [place] [address] OFFICE VISIT Date of Service: 07/30/21 MR#: [id number] Acct: [id number] Name: NIYA MCKEON Rep #: [id number] : 1955 Provider: Dr. Karan khan MD Age/Sex: 66/M Location: [facility] Status: Signed HPI HPI History of Present [...] Intake Visit Reasons: [employer] (ECHO 07-21-21) Compensation Supervisor Required: No Accompanied by: Self Allergies atorvastatin [...] PO DAILY cap 07/30/21 [History Confirmed 07/30/21] [facility] Medical History (Updated 07/30/21 @ 15:[address] Karan Lugo MD) Atherosclerotic heart disease of [place] coronary artery without angina pectoris Atrial enlargement, [...] complications. Cardiac catheterization from 02/02/2018: PROCEDURE(S) PERFORMED RG36-WVM/COR/LV CLINICAL PROFILE AND INDICATIONS Heart Failure: NYHA [...] and Plan (1) Atherosclerotic heart disease of [place] coronary artery without angina pectoris: Status: Chronic Qualifiers: [place] vs. transplanted heart: [place] heart Qualified Code(s): I25.10 - Atherosclerotic heart disease of [place] coronary artery without angina pectoris Comment: Nonobstructive coronary arteries (<30% stenosis in LAD, CX, and RCA: left main normal) per [facility] 02/02/[address] Chino @ [facility] Orders: Orders: 12 Lead EKG performed by [facility] Today Plan - Dr. Karan Lugo MD: [...] Code(s): I48.0 - Paroxysmal atrial fibrillation Comment: [facility] 03/02/2018; Orders: Orders: 12 Lead EKG performed by [facility] Today Plan - Dr. Karan Lugo MD: [...] vis,est,level 4 Diagnoses Atherosclerotic heart disease of [place] coronary artery without angina pectoris I25.10 [place] vs. transplanted heart: [place] heart Nonischemic cardiomyopathy I42.8 Atrial fibrillation I48.0 Atrial fibrillation type: paroxysmal Preoperative cardiovascular examination Z01.810 Coding Level of Care Code Off vis,est,level 4 Diagnoses Atherosclerotic heart disease of [place] coronary artery without angina pectoris I25.10 [place] vs. transplanted heart: [place] heart Nonischemic cardiomyopathy I42.8 Atrial fibrillation I48.0 Atrial fibrillation type: paroxysmal Preoperative cardiovascular examination Z01.810 07/30/21 1541 <Electronically signed by Karan Lugo MD> Date Karan Lugo MD Cosigner Signature: Date (if applicable) CC: HENRI Subramanian; MD Steff Madrigal [facility] Work Phone: Start: 07-21-2021 End: 07-21-2021 Echo Complete Comments: See Note; NOTES: [facility] [address] [place] [address] Echo Complete 07/21/21 1254 MR#: [id number] Acct: [id number] Name: NIYA MCKEON Rep #: [id number] : 1955 66 From: Karan Lugo MD Attending Dr: Dr. Karan Lugo MD Status: [facility] Ordering Dr: Karan Lugo MD Date: 07/21/21 Location: [facility] Sex: M C Admitted: Reason For [...] Referring Physician: Steff Subramanian Performed By: Conchis Angela RDCS, RVT 07/21/21 1456 Date Karan Lugo MD CC: LOAN ADVISER-C Steff Subramanian; Dr. Karan Lugo MD Date Dictated: 07/21/21 1254 Date Transcribed: 07/21/21 1456 Scientific Laboratory Supervisor: Signed Steff Subramanian CNP Work Phone: Start: 06-11-2021 End: 06-12-2021 Knee 4 or More Views Comments: See Note; NOTES: [facility] [address] [place] [address] Knee 4 or More Views MR#: [id number] Acct: [id number] Name: NIYA MCKEON Rep #: [id number] : 1955 M 66 From: Yamileth cisneros MD PCP: HENRI Araya Status: DEP AMB Study: Knee 4 or More Views Date of Exam: 06/11/21 Exam# [id number] Ordering Dr: Steff Subramanian NP LOAN ADVISERKatja HISTORY: PAIN. TECHNIQUE: XR Knee Complete 4 [...] EST Tel , Service support , CC: LOAN ADVISER-Day Subramanian Scientific Laboratory Supervisor: Signed Steff Subramanian CNP Work Phone: Start: 03-11-2021 End: 03-11-2021 Cardiology Visit Report Comments: See Note; NOTES: [facility] [address] [place], [place] [id number] OFFICE VISIT Date of Service: 03/11/21 MR#: [id number] Acct: [id number] Name: NIYA MCKEON Rep #: [id number] : 1955 Provider: HENRI drake Age/Sex: 65/M Location: [facility] Status: Signed HPI HPI History of Present [...] mg PO DAILY 02/01/18 [History Confirmed 03/11/21] uqddzkvabim-ijp-ciejvwwyi-hr b 149-hyalur 500 mg-500 mg-66.7 mg tablet [...] Rx Instructions PO .COMPLEX cap 03/11/21 [History] [facility] Medical History Atherosclerotic heart disease of [place] coronary artery without angina pectoris Atrial enlargement, [...] Code(s): I48.0 - Paroxysmal atrial fibrillation Comment: [facility] 03/02/2018; Plan: Patient has a history of [...] to monitor. (3) Atherosclerotic heart disease of [place] coronary artery without angina pectoris: Status: Chronic Qualifiers: [place] vs. transplanted heart: [place] heart Qualified Code(s): I25.10 - Atherosclerotic heart disease of [place] coronary artery without angina pectoris Comment: Nonobstructive coronary arteries (<30% stenosis in LAD, CX, and RCA: left main normal) per [facility] 02/02/[address] Chino @ [facility] Plan: Patient has a history of [...] prior to saving. Follow Up: 6 Months (LOAN ADVISER/PA) 10-12 Months (PFM) Coding Level of Care Code Off vis,est,level 3 Diagnoses Atrial fibrillation I48.0 Atrial fibrillation type: paroxysmal Nonischemic cardiomyopathy I42.8 Atherosclerotic heart disease of [place] coronary artery without angina pectoris I25.10 [place] vs. transplanted heart: [place] heart Coding Level of Care Code Off vis,est,level 3 Diagnoses Atrial fibrillation I48.0 Atrial fibrillation type: paroxysmal Nonischemic cardiomyopathy I42.8 Atherosclerotic heart disease of [place] coronary artery without angina pectoris I25.10 [place] vs. transplanted heart: [place] heart Supplemental Info Supplemental Information Echocardiogram from [...] complications. Cardiac catheterization from 02/02/2018: PROCEDURE(S) PERFORMED YY79-NIV/COR/LV CLINICAL PROFILE AND INDICATIONS Heart Failure: NYHA [...] <Electronically signed by Hodan HOLLYC> Date Hodan HOLLYC 03/11/21 8041<Electronically signed by Karan Lugo MD> Cosigner Signature: Date (if applicable) Karan Lugo MD CC: LOAN ADVISER-C Steff Subramanian [facility] Work Phone: Start: 09-08-2020 End: 09-09-2020 12 Lead EKG performed by LB Comments: See Note; NOTES: [facility] [address] [place] [address] 12 Lead EKG performed by LB 09/08/20 1256 MR#: [id number] Acct: [id number] Name: FRANKONIYA L Rep #: [id number] : 1955 65 From: Pete H Roof LOAN ADVISER LOAN ADVISER-C Attending Dr: ELAYNE ManningC Status: DEP AMB Ordering Dr: Pete Angela LOAN ADVISER LOAN ADVISER-C Date: 09/08/20 Location: [facility] Sex: M C Admitted: BMS/12 Lead EKG performed by [facility] ECG Report Interpretation Si nus Rhythm WITHIN NORMAL LIMITSElectronically signed on 09/09/2020 at 09:48 by George Mcwilliams Software Version 8610 09/09/20 0956 Date Pete Angela LOAN ADVISER LOAN ADVISER-C CC: LOAN ADVISER-C Steff Subramanian Date Dictated: 09/08/20 1256 Date Transcribed: 09/08/20 1256 Scientific Laboratory Supervisor: HUSSEIN Signed Steff Subramanian Start: 08-26-2020 End: 08-26-2020 Chest PA and Lateral Comments: See Note; NOTES: [facility] Imaging Services [address] [place] [address] Chest PA and Lateral MR#: [id number] Acct: [id number] Name: NIYA MCKEON Rep #: [id number] : 1955 M 65 From: Carlitos freeman MD PCP: HENRI Araya Status: REG CLI Study: Chest PA and Lateral Date of Exam: 08/26/20 Exam# [id number] Ordering Dr: Pete Angela NP LOAN ADVISER-C STUDY: X-RAY CHEST REASON FOR EXAM: Male, [...] 13:41 EST , Service support , CC: HENRI Angela; HENRI Subramanian Scientific Laboratory Supervisor: Signed Steff Subramanian Start: 08-26-2020 End: 11-26-2020 12 Lead EKG performed by [facility] Comments: See Note; NOTES: [facility] [address] [place] [address] 12 Lead EKG performed by [facility] 08/26/20 1037 MR#: [id number] Acct: [id number] Name: NIYA MCKEON Rep #: [id number] : 1955 65 From: Pete Angela NP LOAN ADVISER-C Attending Dr: HENRI Manning Status: DEP AMB Ordering Dr: Pete Angela NP LOAN ADVISER-C Date: 08/26/20 Location: [facility] Sex: M C Admitted: BMS/12 Lead EKG performed by [facility] ECG Report Interpretation At rial fibrillation - Nonspecific T-abnormality. ABNORMAL Electronically signed on 11/26/2020 at 11:00 by Pepe Moss Software Version 8610 11/26/20 1103 Date Pete ÁLVAREZ CC: HENRI Brookeharshadnorris Date Dictated: 08/26/20 1037 Date Transcribed: 08/26/20 1037 Scientific Laboratory Supervisor: HUSSEIN Signed Steff Subramanian [employer] Work Phone: Start: 08-26-2020 End: 08-26-2020 Cardiology Visit Report Comments: See Note; NOTES: [facility] [address] [place] [address] OFFICE VISIT Date of Service: 08/26/20 MR#: [id number] Acct: [id number] Name: NIYA MCKEON Rep #: [id number] : 1955 Provider: HENRI zepeda Age/Sex: 65/M Location: [facility] Status: Signed HPI HPI History of [...] Visit Reasons: F/U re: DCCV vs Amio Compensation Supervisor Required: No Accompanied by: None Is patient in pain?: No Allergies atorvastatin Adverse Reaction (Severe, Verified 08/26/20 10:43) elevated liver enzymes Medications Omeprazole [Prilosec] 20 mg PO DAILY 02/01/18 [History Confirmed 05/13/20] yotpsidjdkx-nhg-pqwjgafkz-hr b 149-hyalur 500 mg-500 mg-66.7 mg tablet [...] DAILY #30 tab 08/26/20 [Rx Confirmed 08/26/20] [facility] Medical History (Updated 08/26/20 @ 12:47 by Pete Angela LOAN ADVISER, LOAN ADVISER-C) Snoring (Chronic) Daytime somnolence (Chronic) Nonischemic cardiomyopathy (Chronic) Atherosclerotic heart disease of [place] coronary artery without angina pectoris (Chronic) Atrial [...] (Updated 08/26/20 @ 12:53 by Pete Angela LOAN ADVISER, LOAN ADVISER-C) Smoking Status: Never smoker alcohol intake: never [...] normal affect Assessment Plan 1. Atherosclerosis of [place] coronary artery of [place] heart without angina pectoris I25.10 Nonobstructive coronary arteries (<30% stenosis in LAD, CX, and RCA: left main normal) per [facility] 02/02/[address] Chino @ [facility] Plan He denies any chest, arm, [...] losartan therapy. 3. Paroxysmal atrial fibrillation I48.0 DCCV 03/02/2018; Plan Patient was noted be in [...] Code Off vis,est,level 4 Diagnoses Atherosclerosis of [place] coronary artery of [place] heart without angina pectoris I25.10 ?[place] vs. transplanted heart: [place] heart Nonischemic cardiomyopathy I42.8 Paroxysmal atrial fibrillation I48.0 ?Atrial fibrillation type: paroxysmal Coding Level of Care Code Off vis,est,level 4 Diagnoses Atherosclerosis of [place] coronary artery of [place] heart without angina pectoris I25.10 ?[place] vs. transplanted heart: [place] heart Nonischemic cardiomyopathy I42.8 Paroxysmal atrial fibrillation [...] 08/21/18 08/26/20 1253 <Electronically signed by Pete HOLLYC> Date Pete Angela LOAN ADVISER LOAN ADVISER-C Cosigner Signature: Date (if applicable) CC: LOAN ADVISER-C Steff Subramanian Start: 08-03-2020 End: 08-19-2020 12 Lead EKG performed by [facility] Comments: See Note; NOTES: [address] [address] 12 Lead EKG performed by [facility] 08/03/201113 MR#: [id number] Acct: [id number] Name: NIYA MCKEON Rep #: [id number] : 1955 65 From: Pepe Moss MD Attending Dr: Dr. Pepe Moss MD Statu s: DEP AMB Ordering Dr: Pepe Moss MD Date: 1 Location: [facility] Sex: M C Admitted: [facility]/12 Lead EKG performed by [facility] Atrial fibrillation ABNORMAL RHYTHM 08/07/20 1059 <Electronically signed by Pepe Moss MD> Date Pepe Moss MD CC: LOAN ADVISER-C Steff Subramanian Date Dictated: 08/03/201113 Date Transcribed: 08/03/201113 Scientific Laboratory Supervisor: NN Signed Steff Subramanian Start: 2020 End: 2020 Cardiology Visit Report Comments: See Note; NOTES: [facility] [address] [place] [address] OFFICE VISIT Date of Service: 05/13/20 MR#: [id number] Acct: [id number] Name: NIYA MCKEON Rep #: [id number] : 1955 Provider: Dr. Pepe byrne MD Age/Sex: 65/M Location: [facility] Status: Signed HPI HPI History of [...] Auscultation Intake Visit Reasons: 6 M FU ([facility] PT) Compensation Supervisor Required: No Accompanied by: None Is patient in pain?: No Allergies atorvastatin Adverse Reaction (Severe, Verified 05/13/20 10:52) elevated liver enzymes Medications Omeprazole [Prilosec] 20 mg PO DAILY 02/01/18 [History Confirmed 05/13/20] oglrsphjluj-kzq-cftxfbory-hr b 149-hyalur 500 mg-500 mg-66.7 mg tablet [...] Nonischemic cardiomyopathy (Chronic) Atherosclerotic heart disease of [place] coronary artery without angina pectoris (Chronic) Atrial [...] 02/08/19 Pulmonary Pulmonary Function Test 08/21/18 05/13/20 8180 <Electronically signed by Pepe Moss MD> Date Pepe Moss MD Cosigner Signature: Date (if applicable) CC: LOAN ADVISERKatja Steff Subramanian Start: 03-17-2020 End: 03-19-2020 Echo Complete Comments: See Note; NOTES: [facility] Services [address] [place] [address] Echo Complete 03/17/20 0859 MR#: [id number] Acct: [id number] Name: NIYA MCKEON Rep #: [id number] : 1955 64 From: Pepe Moss MD Attending Dr: Dr. Balwinder Chino MD Status: DEP [facility] Ordering Dr: Balwinder Chino MD Date: 03/17/20 Location: [facility] Sex: M C Admitted: Reason For [...] 03/19/20 1156 Date Pepe Moss MD CC: LOAN ADVISER-C Steff Subramanian; Dr. Balwinder Chino MD Date Dictated: 03/17/20 0859 Date Transcribed: 03/19/20 1156 Scientific Laboratory Supervisor: Signed Steff Subramanian Start: 09-19-2019 End: 09-19-2019 Cardiology Visit Report Comments: See Note; NOTES: [facility] [address] [place] [address] OFFICE VISIT Date of Service: 09/19/19 MR#: [id number] Acct: [id number] Name: NIYA MCKEON Rep #: [id number] : 1955 Provider: Balwinder Chino MD Age/Sex: 64/M Location: [facility] Status: Signed HPI HPI History of [...] was decreased to 40 mg by Steff Seese due to his elevated liver function test. Patient has completed cardiac rehab and is feeling great! He continues to exercise at [facility] 3 times per week without any difficulty. [...] Auscultation Intake Visit Reasons: 6 M FU Compensation Supervisor Required: No Is patient in pain?: No Allergies atorvastatin Adverse Reaction (Severe, Verified 09/19/19 09:51) elevated liver enzymes Medications Omeprazole [Prilosec] 20 mg PO DAILY 02/01/18 [History Confirmed 09/19/19] zvhjlzhlznj-avr-cmbyayxlc-hr b 149-hyalur 500 mg-500 mg-66.7 mg tablet [...] 200 mg PO .COMPLEX tab 09/19/19 [History] [facility] Medical History Snoring (Chronic) Daytime somnolence (Chronic) Nonischemic cardiomyopathy (Chronic) Atherosclerotic heart disease of [place] coronary artery without angina pectoris (Chronic) Atrial [...] SOB at rest, SOB orthopnea\SOB lying down, Cough, Coughing up blood/hemoptysis, chest [...] AND Plan 1. Atherosclerotic heart disease of [place] coronary artery without angina pectoris I25.10 Nonobstructive coronary arteries (<30% stenosis in LAD, CX, and RCA: left main normal) per [facility] 02/02/[address] Chino @ [facility] Plan 1. Coronary artery disease: Patient has no exertional anginal symptoms at this time. He has nonobstructive coronary disease by catheterization. Unfortunately we are unable to continue his statin due to elevated LFTs and fatty liver. His LV function has normalized with medical therapy and exercise. He continues to exercise at [facility] without any difficulty. Recommend he continue his losartan, metoprolol. Orders Orders: 2. Nonischemic cardiomyopathy I42.8 EF 35% per echo 01/26/18 Plan 2. Nonischemic cardiomyopathy: Patient is [place] heart classification 1 at this time and [...] vis,est,level 3 Diagnoses Atherosclerotic heart disease of [place] coronary artery without angina pectoris I25.10 Nonischemic cardiomyopathy I42.8 Atrial fibrillation I48.91 Coding Level of Care Code Off vis,est,level 3 Diagnoses Atherosclerotic heart disease of [place] coronary artery without angina pectoris I25.10 Nonischemic [...] Chino MD> Date [facility] Signature: Date (if applicable) CC: LOAN ADVISER-C Steff Subramanian Start: 03-23-2019 End: 03-23-2019 Wrist min 3 Views Comments: See Note; NOTES: [facility] Imaging Services [address] [place] [address] Wrist min 3 Views MR#: [id number] Acct: [id number] Name: NIYA MCKEON Rep #: [id number] : 1955 M 63 From: Francesco Barnett MD PCP: HENRI Araya Status: REG CLI Study: Wrist min 3 Views Date of Exam: 03/23/19 Exam# [id number] Ordering Dr: Breana Johnson STUDY: X-RAY - [...] support , CC: HENRI Subramanian; BRITTNEY Johnson Scientific Laboratory Supervisor: Signed Steff Subramanian Start: 03-07-2019 End: 03-07-2019 Cardiology Visit Report Comments: See Note; NOTES: [facility] [address] [place] [address] OFFICE VISIT Date of Service: 03/07/19 MR#: [id number] Acct: [id number] Name: NIYA MCKEON Rep #: [id number] : 1955 Provider: Balwinder Chino MD Age/Sex: 63/M Location: [facility] Status: Signed HPI HPI History of [...] feeling great! He continues to exercise at [facility] 3 times per week without any difficulty. [...] (BMI) 29.7 Intake Visit Reasons: 6 M FU Compensation Supervisor Required: No Is patient in pain?: No Allergies No Known Allergies Allergy (Verified 03/07/19 14:12) Medications Omeprazole [Prilosec] 20 mg PO DAILY 02/01/18 [History Confirmed 03/06/19] xztgeteiddj-xlj-pqeplhwkj-hr b 149-hyalur 500 mg-500 mg-66.7 mg tablet [...] unit PO DAILY 03/07/19 [History Confirmed 03/07/19] [facility] Medical History Snoring (Chronic) Daytime somnolence (Chronic) Nonischemic cardiomyopathy (Chronic) Atherosclerotic heart disease of [place] coronary artery without angina pectoris (Chronic) Atrial [...] SOB at rest, SOB orthopnea\SOB lying down, Cough, Coughing up blood/hemoptysis, chest [...] Orders Orders: 2. Atherosclerotic heart disease of [place] coronary artery without angina pectoris I25.10 Nonobstructive coronary arteries (<30% stenosis in LAD, CX, and RCA: left main normal) per [facility] 02/02/[address] Chino @ [facility] Plan 2. Coronary artery disease: The [...] Atrial fibrillation I48.91 Atherosclerotic heart disease of [place] coronary artery without angina pectoris I25.10 Coding Level of Care Code Off vis,est,level 3 Diagnoses Atrial fibrillation I48.91 Atherosclerotic heart disease of [place] coronary artery without angina pectoris I25.10 Supplemental [...] MD Cosigner Signature: Date (if applicable) CC: Dayan Mehta DO Steff Subramanian Start: 03-07-2019 End: 03-08-2019 12 Lead EKG performed by [facility] Comments: See Note; NOTES: [facility] [address] [place] [address] 12 Lead EKG performed by [facility] 03/07/191404 MR#: [id number] Acct: [id number] Name: NIYA MCKEON Rep #: [id number] : 1955 63 From: Balwinder Chino MD Attending Dr: Balwinder Chino MD Status: DEP [facility] Ordering Dr: Balwinder Chino MD Date: 03/07/19 Location: [facility] Sex: M C Admitted: [facility]/12 Lead EKG performed by [facility] Marked sinus Bradycardia -With rate variation cv = 15.BORDERLINE RHYTHM 03/07/19 1446 <Electronically signed by Balwinder Chino MD> Date Balwinder Chino MD CC: Dayan Mehta DO Date Dictated: 03/07/191404 Date Transcribed: 03/07/191404 Scientific Laboratory Supervisor: DN Signed Steff Subramanian Start: 02-28-2019 End: 02-28-2019 Liver Comments: See Note; NOTES: [facility] Imaging Services [address] [place] [address] Liver MR#: [id number] Acct: [id number] Name: NIYA MCKEON Rep #: [id number] : 1955 M 63 From: René Cavanaugh MD PCP: HENRI Araya Status: REG CLI Study: Liver Date of Exam: 02/28/19 Exam# [id number] Ordering Dr: Steff Subramanian STUDY: ABDOMINAL ULTRASOUND [...] René Cavanaugh MD at 11:35 EDT Tel [phone], Service support , CC: HENRI Subramanian Scientific Laboratory Supervisor: Signed Steff Subramanian Work Phone: Start: 02-08-2019 End: 02-08-2019 Chest PA and Lateral Comments: See Note; NOTES: [facility] Imaging Services [address] [place] [address] Chest PA and Lateral MR#: [id number] Acct: [id number] Name: NIYA MCKEON Rep #: [id number] : 1955 M 63 From: Carlitos Clinton MD PCP: HENRI Araya Status: REG CLI Study: Chest PA and Lateral Date of Exam: 02/08/19 Exam# [id number] Ordering Dr: Steff Subramanian STUDY: X-RAY CHEST [...] , Service support , CC: HENRI Subramanian Scientific Laboratory Supervisor: Signed Steff Subramanian Work Phone: Start: 08-23-2018 End: 08-23-2018 Echocardiogram Complete Comments: See Note; NOTES: [facility] Cardiovascular Services [address] [place] [address] Echo Complete 08/23/18 0730 MR#: [id number] Acct: [id number] Name: NIYA MCKEON Rep #: [id number] : 1955 63 From: Balwinder Chino MD Attending Dr: Balwinder Chino MD Status: REG CLI Ordering Dr: Balwinder Chino MD Date: 08/23/18 Location: [facility] Sex: M C Admitted: Reason For Study: [...] Date Balwinder Chino MD CC: Steff Subramanian LOAN ADVISER; Balwinder Chino MD Date Dictated: 08/23/18 0730 Date Transcribed: 08/23/18 1259 Scientific Laboratory Supervisor: Signed Steff Subramanian Start: 08-21-2018 End: 08-21-2018 Pulmonary Function Test Comments: See Note; NOTES: [facility] Pulmonary Services/Neurology [address] [place] [address] MR#: [id number] Acct: [id number] Name: NIYA MCKEON Rep #: [id number] : 1955 63 From: Rylan Brown DO Referring Dr: Balwinder Chino MD Status: REG CLI Ordering Dr: Date: Location: [facility] Sex: M C INTRODUCTION: The patient is [...] predicted. IMPRESSION: Grossly normal pulmonary function studies. 08/21/181417 <Electronically signed by Rylan Chaves DO> Date Rylan Chaves DO CC: Steff Subramanian LOAN ADVISER; Balwinder Chino MD Date Dictated: 08/21/181415 Date Transcribed: 08/21/181415 Scientific Laboratory Supervisor: DB Signed Steff Subramanian Start: 08-10-2018 End: 08-10-2018 Cardiology Visit Report Comments: See Note; NOTES: [facility] [address] [place] [address]. [address] [place] [address] OFFICE VISIT Date of Service: 08/10/18 MR#: [id number] Acct: [id number] Name: NIYA MCKEON Rep #: [id number] : 1955 Provider: Balwinder hCino MD Age/Sex: 63/M Location: [facility] Status: Signed HPI HPI Chief Complaint: Routine [...] feeling great! He continues to exercise at [facility] 3 times per week without any difficulty. [...] ft 1.5 in 08/10/18 Weight: 253 lb 02/01/19 Body Mass Index (BMI) 32.9 08/10/18 Blood Pressure 104/60 Intake Visit Reasons: 6 M FU Compensation Supervisor Required: No Is patient in pain?: No Allergies No Known Allergies Allergy (Verified 08/10/18 10:41) Medications Omeprazole [Prilosec] 20 mg PO DAILY 02/01/18 [History Confirmed 08/10/18] wfzhdueyrgt-xzb-bemlhiuic-hr b 149-hyalur 500 mg-500 mg-66.7 mg tablet [...] Rx Instructions PO .COMPLEX cap 08/10/18 [History] [facility] Medical History Snoring (Chronic) Daytime somnolence (Chronic) Nonischemic cardiomyopathy (Chronic) Atherosclerotic heart disease of [place] coronary artery without angina pectoris (Chronic) Atrial [...] purpose.) and other (Feels well, going to [facility] (finished Cardiac Rehab). Did Why Weight.); negative [...] SOB at rest, SOB orthopnea\SOB lying down, Cough, Coughing up blood/hemoptysis, chest [...] AND Plan 1. Atherosclerotic heart disease of [place] coronary artery without angina pectoris I25.10 Nonobstructive coronary arteries (<30% stenosis in LAD, CX, and RCA: left main normal) per [facility] 02/02/[address] Chino @ [facility] Plan 1. Coronary artery disease: The [...] vis,est,level 3 Diagnoses Atherosclerotic heart disease of [place] coronary artery without angina pectoris I25.10 Atrial fibrillation I48.91 Nonischemic cardiomyopathy I42.8 Coding Level of Care Code Off vis,est,level 3 Diagnoses Atherosclerotic heart disease of [place] coronary artery without angina pectoris I25.10 Atrial [...] MD Cosigner Signature: Date (if applicable) CC: Dayan Mcfarlane Start: 08-10-2018 End: 08-20-2018 12 Lead EKG performed by [facility] Comments: See Note; NOTES: [facility] [address] [place] [address] 12 Lead EKG performed by [facility] 08/10/18 1028 MR#: [id number] Acct: [id number] Name: NIYA MCKEON Rep #: [id number] : 1955 63 From: Balwinder Chino MD Attending Dr: Balwinder Chino MD Status: DEP AMB Ordering Dr: Balwinder Chino MD Date: 08/10/18 Location: [facility] Sex: M C Admitted: [facility]12 Lead EKG performed by [facility] Sinus Bradycardia -With rate variation cv = 10.WITHIN NORMAL LIMITS 08/10/18 1323 <Electronically signed by Balwinder Chino MD> Date Balwinder Chino MD CC: Dayanmike Mehta DO Date Dictated: 08/10/18 1028 Date Transcribed: 08/10/18 1028 Scientific Laboratory Supervisor: DN Signed Steff Subramanian Start: 03-13-2018 End: 03-13-2018 CR - History AND Physical Comments: See Note; NOTES: [facility] Cardiac Rehab [address] [place] [address] CR - History AND Physical MR#: [id number] Acct: [id number] Name: NIYA MCKEON Rep #: [id number] : 1955 62 From: Ulysses Vasques [employer] ASSOCIATE, IMPORT/EXPORT AGENT, BS PCP: Steff Subramanian NP DOS: 03/13/18 [...] Advanced Directives - Advanced Directives Power of Enrobing Machine Feeder: Yes Living Will: Yes Advance Directives Information Provided: No Advance Directives on File: Yes DNR Order?:: No - MOLST See MOLST form: No Past Medical History - Past Medical Illness Medical History: Past Medical History (Last Updated 03/02/18 @ 13:19 by Clotilde Bautista) Snoring (Chronic) R06.83 Daytime somnolence (Chronic) R40.0 Nonischemic cardiomyopathy (Chronic) I42.8 EF 35% per echo 01/26/18 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 Chino @ [facility] Atrial enlargement, right (Chronic) I51.7 Per echo 01/26/18 GERD (gastroesophageal reflux disease) (Chronic) K21.9 Atrial fibrillation (Chronic) I48.91 - Past Surgical History Surgical History: Past Surgical History (Last Reviewed 02/16/18 @ 08:22 by Clotilde Bautista) History of left heart catheterization (Chronic) Onset Date: 02/02/18 Z98.890 Nonobstructive coronary arteries (<30% stenosis in LAD, CX, and RCA: left main normal) per [facility] 02/02/[address] Chino @ [facility] H/O lateral meniscus repair of left knee Onset Date: [address] Odom, [facility] Surgical History: no surgical history - [...] children live nearby?: Yes - 1 in [place] in [facility] [place] - Safety Do you feel safe in your surroundings?: Yes - Assistance Do you need any assistance at home?: none Review of Systems - Review of Systems Hints: Right click = Denies (Slash). Left click = Reports ([place]) Review of Present Symptoms: Reports: Shortness of [...] 0824 <Electronically signed by Ulysses Vasques CRT, DORINA, OLVIN> Date Ulysses Vasques CRT, RCP, OLVIN Outcome assessment reviewed. Exercise plan approved as [...] Date Balwinder Chino MD CC: Signed Steff Subramanian Start: 03-12-2018 End: 03-12-2018 Office Visit Report Comments: See Note; NOTES: [facility] [address] [place] [address] OFFICE VISIT Date of Service: 03/09/18 MR#: [id number] Acct: [id number] Patient: NIYA MCKEON Rep #: [id number] : 1955 Provider: Balwinder Chino MD Age/Sex: 62/M Location: [facility] Status: Signed Intake Intake Visit [...] mg PO QDAY 02/16/18 [History Confirmed 03/01/18] spcguopyprs-tgv-folnpoluo-hr b 149-hyalur 500 mg-500 mg-66.7 mg tablet [...] End: 06-22-2018 12 Lead EKG performed by [facility] Comments: See Note; NOTES: [facility] [address] [place] [address] 12 Lead EKG performed by [facility] 03/09/18 1541 MR#: [id number] Acct: [id number] Name: NIYA MCKEON Rep #: [id number] : 1955 62 From: Balwinder Chino MD Attending Dr: Balwinder Chino MD Status: DEP [facility] Ordering Dr: Balwinder Chino MD Date: 03/09/18 Location: [facility] Sex: M C Admitted: [facility]12 Lead EKG performed by [facility] Sinus Bradycardia WITHIN NORMAL LIMITS 03/15/18 1402 <Electronically signed by Balwinder Chino MD> Date Balwinder Chino MD CC: Steff Subramanian NP Date Dictated: 03/09/181540 Date Transcribed: 03/09/181540 Scientific Laboratory Supervisor: Signed Steff Subramanian Start: 03-03-2018 End: 03-03-2018 Operative Report Comments: See Note; NOTES: [facility] Medical Records Department [address] [place] [address] Operative Report 03/02/18 1325 MR#: [id number] Acct: [id number] Name: NIYA MCKEON Rep #: [id number] : 1955 62 From: Amilcar Jane MD PCP: Steff Subramanian NP Status: REG SDC Y Location: [facility] Problem List (1) Atrial enlargement, right Status: Chronic Comment: Per echo 01/26/18 (2) Atrial fibrillation Status: Chronic (3) GERD (gastroesophageal reflux disease) Status: Chronic (4) Nonischemic cardiomyopathy Status: Chronic Comment: EF 35% per echo 01/26/18 Operative Report Date of Procedure: 03/02/18 - Conscious sedation CONSCIOUS SEDATION REPORT BRIEF HISTORY OF PRESENT ILLNESS: The patient is a 62-year-old male who presented to [facility] for an elective outpatient cardioversion due [...] Visit 9xxxx: Other Procedure See Report - 64843 -8 minutes of conscious sedation 03/03/18 0530 <Electronically signed by Amilcar Jane MD> Date Amilacr Jane MD CC: Steff Subramanian NP; Amilcar Jane MD; Balwinder Chino MD Signed Steff Subramanian Start: 03-02-2018 End: 03-02-2018 Operative Report Comments: See Note; NOTES: [facility] Medical Records Department [address] [place] [address] Operative Report 03/02/18 1243 MR#: [id number] Acct: [id number] Name: NIYA MCKEON Rep #: [id number] : 1955 62 From: Balwinder Chino MD PCP: Steff Subramanian NP Status: REG [facility] Y Location: [facility] Problem List (1) Chest pain Status: Acute (2) Atherosclerotic heart disease of [place] coronary artery without angina pectoris Status: Chronic Comment: Nonobstructive coronary arteries (<30% stenosis in LAD, CX, and RCA: left main normal) per [facility] 02/02/[address] Chino @ [facility] (3) Atrial fibrillation Status: Chronic Operative [...] Jane for his assistance. Code Visit 92xxx-93xxx: 97571 Cardioversion electric ext 03/02/18 1246 <Electronically signed by Balwinder Chino MD> Date Balwinder Chino MD CC: Steff Subramanian LOAN ADVISER; Balwinder Chnio MD Signed Steff Subramanian Start: 02-16-2018 End: 02-16-2018 Cardiology Visit Report Comments: See Note; NOTES: [facility] [address] [place] [address] OFFICE VISIT Date of Service: 02/16/18 MR#: [id number] Acct: [id number] Name: NIYA MCKEON Rep #: [id number] : 1955 Provider: Balwinder Chino MD Age/Sex: 62/M Location: [facility] Status: Signed HPI HPI Chief Complaint: Routine [...] Blood Pressure 100/70 Intake Visit Reasons: S/P [facility] Compensation Supervisor Required: No Accompanied by: Is patient in [...] mg PO QDAY 02/16/18 [History Confirmed 02/16/18] nytfifgqeug-lnh-kxnmztkmd-hr b 149-hyalur 500 mg-500 mg-66.7 mg tablet tab PO 02/16/18 [History Confirmed 02/16/18] PFSH Medical History Atherosclerotic heart disease of [place] coronary artery without angina pectoris (Chronic) Atrial [...] and [place] 3. Atherosclerotic heart disease of [place] coronary artery without angina pectoris I25.10 Nonobstructive coronary arteries (<30% stenosis in LAD, CX, and RCA: left main normal) per [facility] 02/02/[address] Chino @ [facility] Plan 3. Coronary artery disease: No [...] I48.91 Cardiomyopathy I42.9 Atherosclerotic heart disease of [place] coronary artery without angina pectoris I25.10 Coding Level of Care Code Off vis,est,level 3 Diagnoses Atrial fibrillation I48.91 Cardiomyopathy I42.9 Atherosclerotic heart disease of [place] coronary artery without angina pectoris I25.10 02/16/18 1159 <Electronically signed by Balwinder Chino MD> Date Balwinder Chino MD Cosigner Signature: Date (if applicable) CC: Steff Subramanian LOAN ADVISER Steff Subramanian Start: 02-01-2018 End: 02-01-2018 Office Visit Report Comments: See Note; NOTES: [facility] [address] [place], [place] [address] [address] OFFICE VISIT Date of Service: 01/29/18 MR#: [id number] Acct: [id number] Patient: NIYA MCKEON Rep #: [id number] : 1955 Provider: Balwinder Chino MD Age/Sex: 62/M Location: [facility] Status: Signed Intake Intake Visit Reasons: cath [...] cath on February 14. RX sent to [facility] and pt already picked it up as he is going [place] of [place] the end of the week. 02/01/18 0858 <Electronically signed by Balwinder Chino MD> Date Balwinder Chino MD Cosigner Signature: Date (if applicable) CC: Clotilde Subramanian Start: 01-31-2018 End: 01-31-2018 Emergency Department Summary Comments: See Note; NOTES: [facility] Medical Records Department [address] [place] [address] Emergency Department Summary 01/31/18 2249 MR#: [id number] Acct: [id number] Name: NIYA MCKEON Rep #: [id number] : 1955 62 From: Akilah Dia MD [...] Chest pain This note was generated with [employer] dictation software. It may contain incorrect words, [...] your Primary Care Provider. Call [facility] ([phone]) or report to the closest Emergency Room. Call 911 if necessary. 01/31/18 9694 <Electronically signed by Akilah Dia MD> Date Akilah Dia MD Cosigner Signature (If Indicated): Date CC: Steff Subramanian Start: 01-31-2018 End: 01-31-2018 Chest 1 View (Portable) Comments: See Note; NOTES: [facility] Imaging Services [address] [place] [address] Chest 1 View (Portable) MR#: [id number] Acct: [id number] Name: NIYA MCKEON Rep #: [id number] : 1955 M 62 From: Justus Moran DO PCP: Steff Subramanian NP Status: REG ER Study: Chest 1 View (Portable) Date of Exam: 01/31/18 Exam# [id number] Ordering Dr: Akilah Dia MD STUDY: X-RAY [...] Justus Moran DO at 23:05 EDT Tel [phone], Service support , CC: Steff Subramanian LOAN ADVISER; Akilah Dia MD Scientific Laboratory Supervisor: Signed Steff Subramanian Start: 01-26-2018 End: 01-26-2018 Echocardiogram Complete Comments: See Note; NOTES: [facility] Cardiovascular Services [address] [place] [address] Echo Complete 01/26/18 0903 MR#: [id number] Acct: [id number] Name: NIYA MCKEON Rep #: [id number] : 1955 62 From: Balwinder Chino MD Attending Dr: Balwinder Chino MD Status: REG CLI Ordering Dr: Balwinder Chino MD Date: 01/26/18 Location: [facility] Sex: M C Admitted: Reason For [...] Chino MD; Dayan Mehta DO Date Dictated: 01/26/18 0903 Date Transcribed: 01/26/18 1339 Scientific Laboratory Supervisor: Signed Steff Subramanian Start: 01-23-2018 End: 01-23-2018 Cardiology Visit Report Comments: See Note; NOTES: [facility] [address] [place] [address] OFFICE VISIT Date of Service: 01/23/18 MR#: [id number] Acct: [id number] Name: NIYA MCKEON Rep #: [id number] : 1955 Provider: Balwinder Chino MD Age/Sex: 62/M Location: [facility] Status: Signed HPI HPI Chief [...] 90/60 Intake Visit Reasons: IRREG HEART RATE ([facility] ER) Allergies No Known Allergies Allergy [...] signed by Balwinder Chino MD> Date Balwinder Flor Signature: Date (if applicable) CC: Florence Carranza MD Steff Brookematthew Start: 01-15-2018 End: 01-15-2018 12 lead ECG Comments: See Note; NOTES: [facility] Cardiovascular Services [address] [place] [address] 12 Lead EKG 01/11/18 1536 MR#: [id number] Acct: [id number] Name: NIYA MCKEON Rep #: [id number] : 1955 62 From: George Mcwilliams MD [...] ms Atrial fibrillation Abnormal ECG Confirmed by RUTHANN WASSERMAN, GEORGE ([id number]), associate entertainment editor CURLY BAUMANN ([id number]) on 01/15/2018 2:44:33 PM Referred By: ANDREW/SEBAS Confirmed By:GEORGE MCWILLIAMS MD 01/15/18 1444 Date George Mcwilliams MD CC: Florence Carranza MD; ED PHYSICIAN PROVIDER; Rambo Machado MD Signed Steff Subramanian Start: 01-11-2018 End: 01-11-2018 Emergency Department Summary Comments: See Note; NOTES: [facility] Medical Records Department [address] [place] [address] Emergency Department Summary 01/11/18 7453 MR#: [id number] Acct: [id number] Name: NIYA MCKEON Rep #: [id number] : 1955 62 From: Rambo Machado MD [...] atrial fibrillation This note was generated with [employer] software. It may contain incorrect words, spelling, [...] problems, contact your Primary Care Provider. Call [facility] ([phone]) or report to the closest Emergency Room. Call 911 if necessary. 01/11/18 2387 <Electronically signed by Rambo Machado MD> Date Rambo Machado MD Cosigner Signature (If Indicated): Date CC: Florence Carranza MD Steff Subramanian Start: 01-11-2018 End: 01-11-2018 Chest 1 View (Portable) Comments: See Note; NOTES: [facility] Imaging Services [address] [place] [address] Chest 1 View (Portable) MR#: [id number] Acct: [id number] Name: NIYA MCKEON Rep #: [id number] : 1955 62 From: Bo Vivas MD PCP: NOT, DEFINED Status: PRE ER Study: Chest 1 View (Portable) Date of Exam: 01/11/18 Exam# [id number] Ordering Dr: Rambo Machado MD STUDY: X-RAY [...] , CC: DEFINED NOT; Rambo Machado MD Scientific Laboratory Supervisor: Signed Steff Subramanian Start: 01-01-2018 End: 01-01-2018 Chest PA and Lateral Comments: See Note; NOTES: [facility] Imaging Services [address] [place] [address] Chest PA and Lateral MR#: [id number] Acct: [id number] Name: NIYA MCKEON Rep #: [id number] : 1955 62 From: Lakeisha Arevalo MD PCP: Florence Carranza MD Status: REG CLI Study: Chest PA and Lateral Date of Exam: 01/01/18 Exam# [id number] Ordering Dr: Hodan Lockett LOAN ADVISER-C STUDY: X-RAY CHEST REASON FOR EXAM: Male, [...] , CC: HENRI Lockett; Florence Carranza MD Scientific Laboratory Supervisor: Signed Hodan Lockett Arthroscopy of knee DR NAI PARRA MD Comment on above: left Bone spur of left elbow DR Christi PARRA MD Cardioversion DR MIYA JANG MD Colonoscopy DR MIYA Rehman MD left knee meniscus repair 2005 Dr. Lei Mills left knee meniscus repair 2004 Dr. Lei Mills left knee meniscus repair 2004 Dr. Lei Grubbs left knee meniscus repair 2004 Dr. Lei Grubbs left knee meniscus repair 2004 Dr. Lei Miguel left knee meniscus repair 2004 Dr. Lei Miguel left knee meniscus repair 2005 Dr. Lei Carrillo left knee meniscus repair [...] replacement of left knee joint Alexa Slarb [employer]IONAL DRIVER Comment on above: Dr Parra 2021 Total replacement of left knee joint Kimberlyn Swain MA Comment on above: Dr Parra 2021 Total replacement of left knee joint Alexa Slarb [employer]IONAL DRIVER Comment on above: Dr Parra 2021 Total replacement of left knee joint DR MIYA PARRA MD Total replacement of left knee joint Kimberlyn Swain MA Comment on above: Dr Parra 2021 Total replacement of left knee joint Kimberlyn Swain MA Comment on above: Dr Parra 2021 Plan of Treatment Date Care Activity Detail Author Start: 11-06-2024 Evaluation of diagnostic study results [facility] Start: 07-10-2023 Advance Directive Discussion Advance Directive Discussion [facility] Start: 07-10-2023 Depression Assessment Depression Assessment [facility] Start: 11-30-2022 Procedure Education Eprescribed prescriptions [...] Phone: Start: 06-11-2022 US.doppler Lower extremity vein [facility] Work Phone: Start: 2022 Pneumococcal Vaccine: 65+ (1 of 1 - PCV) Pneumococcal Vaccine: 65+ (1 of 1 - PCV) [facility] Start: 05-10-2022 Procedure Education Eprescribed prescriptions (G8553) [facility]; [facility] Work Phone: Start: 04-27-2022 Provider Instructions for Treatment [facility]; [facility] Work Phone: Start: 04-15-2022 Procedure Education Eprescribed prescriptions (G8553) [facility]; [facility] Work Phone: Start: 04-15-2022 Provider Instructions for Treatment Follow up - Keep appt as scheduled [facility]; [facility] Work Phone: Start: 04-15-2022 Assay of free thyroxine T4, FREE (THYROXINE) (54038) [facility]; [facility] Work Phone: Start: 04-15-2022 Assay of thyroid stimulating hormone tsh TSH (THYROID STIMULATING HORMONE) (79927) [facility]; [facility] Work [...] 01-12-2022 Urine albumin quantitative MICROALBUMIN: CREATININE RATIO (33422) AND (96632) [facility]; [facility] Work Phone: Comment on above: prior to sx may Start: 01-12-2022 Assay of thyroid stimulating hormone tsh TSH (THYROID STIMULATING HORMONE) (87276) [facility]; [facility] Work Phone: Comment on above: today Start: 01-12-2022 Blood count manual cell count each CBC with auto diff (67462) [facility]; [facility] Work Phone: Comment on above: prior to sx in may 2022 Start: 01-12-2022 Comprehensive metabolic panel METABOLIC PANEL, COMPREHENSIVE (14255) [facility]; [facility] Work Phone: Comment on above: prior to sx may Start: 01-12-2022 Lipid panel LIPID PANEL (52462) [facility]; [facility] Work Phone: Comment on above: may 2022 Start: 08-11-2021 Procedure Education Eprescribed prescriptions (G8553) [facility]; [facility] Work Phone: Start: 08-11-2021 Culture bacterial quanttative colony count urine URINE BARRETT CULTURE (FELICITAS COL COUNT) (60139) [facility]; [facility] Work Phone: Start: 08-10-2021 Urine albumin quantitative MICROALBUMIN: CREATININE RATIO (98141) AND (84153) [facility]; [facility] Work Phone: Comment on above: Aug 16 2021 Start: 07-14-2021 Procedure Education Eprescribed prescriptions (G8553) [facility]; [facility] Work Phone: Start: 07-14-2021 Provider Instructions for Treatment pneumatic tester please make follow up pre op 2021 Fax Lab orders to [facility] AQUATICS COORDINATOR [facility]; [facility] Work Phone: Start: 07-14-2021 Assay of thyroid stimulating hormone tsh TSH (THYROID STIMULATING HORMONE) (91977) [facility]; [facility] Work Phone: Comment on above: Aug 10 2021 Start: 07-14-2021 Blood count complete automated CBC & PLATELETS (AUTO) (37064) [facility]; [facility] Work Phone: Comment on above: Aug 10, 2021 Start: 07-14-2021 Urine albumin quantitative MICROALBUMIN: CREATININE RATIO (87641) AND (89028) [facility]; [facility] Work Phone: Comment on above: Aug 10 [facility] Start: 07-14-2021 Renal function panel RENAL FUNCTION PANEL (22009) [facility]; [facility] Work Phone: Comment on above: Aug 10 to [facility] Start: 06-11-2021 Procedure Education Eprescribed prescriptions [...] Sedimentation rate rbc non-automated SED RATE ERYTHROCYTE (52663) [facility]; [facility] Work Phone: Comment on above: Mar 17 Start: 02-09-2021 Cyanocobalamin vitamin b-12 VITAMIN B-12 (CYANOCOBALAMIN) (80024) [facility]; [facility] Work Phone: Comment on above: Mar 17 Start: 02-09-2021 25 hydroxy includes fractions if performed CALCIFIDIOL (14642) VIT D 25 [facility]; [facility] Work Phone: Comment on above: Mar 17 Start: 02-09-2021 Assay of thyroid stimulating hormone tsh TSH (THYROID STIMULATING HORMONE) (80460) [facility]; [facility] Work Phone: Comment on above: Mar 17 Start: 02-01-2021 TSH Qn TSH (THYROID STIMULATING HORMONE) (14786) [facility]; [facility] Work Phone: Start: 12-22-2020 Assay of thyroid stimulating hormone tsh TSH (THYROID STIMULATING HORMONE) (75119) [facility]; [facility] Work Phone: Start: 11-16-2020 Free T4 [Mass/Vol] T4, FREE (THYROXINE) (14052) [facility]; [facility] Work Phone: Start: 11-16-2020 Free T3 [Mass/Vol] T3, FREE (TRIDOTHYRONINE) (22323) [facility]; [facility] Work Phone: Start: 11-16-2020 TSH Qn TSH (THYROID STIMULATING HORMONE) (94098) [facility]; [facility] Work Phone: Start: 11-16-2020 Assay of free thyroxine T4, FREE (THYROXINE) (71503) [facility]; [facility] Work Phone: Start: 11-16-2020 Assay of thyroid stimulating hormone tsh TSH (THYROID STIMULATING HORMONE) (22279) [facility]; [facility] Work Phone: Start: 11-16-2020 Assay of triiodothyronine t3 free T3, FREE (TRIDOTHYRONINE) (25143) [facility]; [facility] Work [...] Assay of thyroid stimulating hormone tsh TSH (58463) [facility]; [facility] Work Phone: Comment on above: September 2020 Start: 06-08-2020 Urine albumin quantitative MICROALBUMIN: CREATININE RATIO (04779) AND (12169) [facility] Work Phone: Comment on above: September 2020 Start: 06-08-2020 TSH Qn TSH (16689) [facility] Work Phone: Comment on above: September 2020 Start: 06-08-2020 Blood count complete auto&auto difrntl wbc CBC, Platelets & Auto Diff (36825) [facility] Work Phone: Comment on above: September 2020 Start: 06-08-2020 Comprehensive metabolic panel Metabolic Panel, Comprehensive (45272) [facility] Work Phone: Comment on above: September 2020 Start: 06-08-2020 Lipid panel LIPID PANEL (25984) [facility] Work Phone: Comment on above: [...] count complete automated CBC & PLATELETS (AUTO) (43652) [facility] Work Phone: Comment on above: May 2020 Start: 01-31-2020 Assay of thyroid stimulating hormone tsh TSH (THYROID STIMULATING HORMONE) (33049) [facility]; [facility] Work Phone: Comment on above: May 2020 Start: 01-31-2020 TSH Qn TSH (THYROID STIMULATING HORMONE) (21911) [facility] Work Phone: Comment on above: May 2020 Start: 09-30-2019 Procedure Education Eprescribed prescriptions (G8553) [facility] Work Phone: Start: 09-30-2019 Provider Instructions for Treatment [facility] Work Phone: Start: 09-23-2019 TSH Qn TSH (THYROID STIMULATING HORMONE) (69180) [facility] Work Phone: Start: 09-23-2019 Comprehensive metabolic panel Metabolic Panel, Comprehensive (14482) [facility] Work Phone: Start: 09-23-2019 Lipid panel LIPID PANEL (91857) [facility] Work Phone: Start: 05-24-2019 Procedure Education Eprescribed prescriptions (G8553) [facility] Work Phone: Start: 05-24-2019 Provider Instructions for Treatment Follow up in 4 months [facility] Work Phone: Start: 05-24-2019 Assay of prostate specific antigen total PSA (PROSTATE SPECIFIC ANTIGEN) (V76.44) [facility] Work Phone: Start: 03-13-2019 Lipid panel Lipid Panel (91937) [facility] Work Phone: Start: 03-13-2019 Comprehensive metabolic panel Metabolic Panel, Comprehensive (62558) [facility] Work Phone: Start: 03-13-2019 Comprehensive metabolic panel Metabolic Panel, Comprehensive (47004) [facility] Work Phone: Start: 03-13-2019 Lipid panel Lipid Panel (25703) [facility] Work Phone: Start: 02-20-2019 Procedure Education Eprescribed prescriptions (G8553) [facility] Work Phone: Start: 02-20-2019 Provider Instructions for Treatment Follow up in 3 months [facility] Work Phone: Start: 02-18-2019 Blood count complete auto&auto difrntl wbc CBC, Platelets & Auto Diff (13887) [facility] Work Phone: Start: 02-18-2019 Comprehensive metabolic panel Metabolic Panel, Comprehensive (16213) [facility] Work Phone: Start: 02-11-2019 Procedure Education Eprescribed prescriptions (G8553) [facility] Work Phone: Start: 02-08-2019 Procedure Education Eprescribed prescriptions (G8553) [facility] Work Phone: Start: 02-08-2019 Provider Instructions for Treatment Follow up Monday [facility] Work Phone: Start: 02-08-2019 Assay of lactate LACTATE (LACTIC ACID) (82498) [facility]; [facility] Work Phone: Start: 02-08-2019 Lactate [Moles/Vol] LACTATE (LACTIC ACID) (57568) [facility] Work Phone: Start: 02-08-2019 Fibrin dgradj products d-dimer quantitative D-Dimer (11054) [facility] Work Phone: Start: 02-08-2019 Comprehensive metabolic panel Metabolic Panel, Comprehensive (87367) [facility] Work Phone: Start: 02-08-2019 Blood count complete automated CBC & PLATELETS (AUTO) (47538) [facility] Work Phone: Start: 08-02-2019 Bacteria identified Respiratory culture Nom (Sput) Sputum Culture (92685) [facility] Work Phone: Start: 02-08-2019 Cul bact xcpt urine blood/stool aerobic isol Sputum Culture (77271) [facility]; [facility] Work Phone: Start: 01-28-2019 Urine albumin quantitative MICROALBUMIN: CREATININE RATIO (41502) AND (62338) [facility] Work Phone: Start: 01-28-2019 TSH Qn TSH (91752) [facility] Work Phone: Start: 01-28-2019 Blood count complete auto&auto difrntl wbc CBC, Platelets & Auto Diff (04981) [facility] Work Phone: Start: 01-28-2019 Comprehensive metabolic panel Metabolic Panel, Comprehensive (26803) [facility] Work Phone: Start: 08-22-2018 Procedure Education Eprescribed prescriptions (G8553) [facility] Work Phone: Start: 08-22-2018 Provider Instructions for Treatment [facility] Work Phone: Start: 08-13-2018 Comprehensive metabolic panel Metabolic Panel, Comprehensive (78893) [facility] Work Phone: Start: 08-13-2018 Thyrotropin Qn TSH (THYROID STIMULATING HORMONE) (90432) [facility] Work Phone: Start: 08-13-2018 Lipid panel LIPID PANEL (08544) [facility] Work Phone: Start: 08-06-2018 Lipid panel Lipid Panel (29051) [facility] Work Phone: Start: 05-22-2018 Assay of thyroid stimulating hormone tsh TSH (THYROID STIMULATING HORMONE) (72996) [facility]; [facility] Work Phone: Start: 05-22-2018 Thyrotropin Qn TSH (THYROID STIMULATING HORMONE) (84922) [facility] Work Phone: Start: 05-21-2018 Procedure Education Eprescribed prescriptions (G8553) [facility] Work Phone: Start: 05-21-2018 Provider Instructions for Treatment Follow up in 3 months [facility] Work Phone: Start: 04-09-2018 Assay of thyroid stimulating hormone tsh TSH (THYROID STIMULATING HORMONE) (25980) [facility]; [facility] Work Phone: Start: 04-09-2018 Thyrotropin Qn TSH (THYROID STIMULATING HORMONE) (34372) [facility] Work Phone: Start: 02-16-2018 [...] of triiodothyronine t3 free T3, FREE (TRIDOTHYRONINE) (98448) [facility]; [facility] Work Phone: Start: 02-16-2018 T3 free mass conc T3, FREE (TRIDOTHYRONINE) (54501) [facility] Work Phone: Start: 02-16-2018 Assay of free thyroxine T4, FREE (THYROXINE) (31878) [facility]; [facility] Work Phone: Start: 02-16-2018 T4 free mass conc T4, FREE (THYROXINE) (91194) [facility] Work Phone: Start: 02-16-2018 Assay of thyroid stimulating hormone tsh TSH (THYROID STIMULATING HORMONE) (52030) [facility]; [facility] Work Phone: Start: 02-16-2018 Thyrotropin Qn TSH (THYROID STIMULATING HORMONE) (63712) [facility] Work Phone: Start: 01-01-2018 [...] RSV Vaccine (1 - 1-dose 60+ series) [facility] Start: 10-30-2015 Blood count complete automated CBC (Auto) (08121) [facility] Work Phone: Start: 10-30-2015 Comprehensive metabolic panel Metabolic Panel, Comprehensive (66108) [facility] Work Phone: Start: 10-30-2015 Lipid panel LIPID PANEL (21448) [facility] Work Phone: Start: 10-30-2015 Assay of prostate specific antigen total PSA (Prostate Specific Antigen), Screening (09818) [facility] Work Phone: Start: 10-30-2015 Protein mass conc PSA (Prostate Specific Antigen), Screening (82823) [facility] Work Phone: Start: 2012 Prostate specific antigen measurement Prostate Cancer Screening Discussion [facility] Start: 04-15-2009 Provider Instructions for Treatment I/D Cyst/Abscess [facility] Work Phone: Start: 04-15-2009 Cul bact xcpt urine blood/stool aerobic isol BARRETT CULTURE-OTHER (32002) [facility] Work Phone: Comment on [...] 09-18-2007 Hepatic function panel HEPATIC FUNCTION PANEL (50715) [facility] Work Phone: Comment on above: 8 weeks Start: 09-18-2007 Comprehensive metabolic panel Metabolic Panel, Comprehensive (41383) [facility] Work Phone: Start: 09-18-2007 Glucose mass conc Glucose (17970) [facility] Work Phone: Start: 09-18-2007 Glucose quantitative blood xcpt reagent strip Glucose (70801) [facility]; [facility] Work Phone: Start: 09-18-2007 Assay of prostate specific antigen total PSA (PROSTATE SPECIFIC ANTIGEN) (V76.44) [facility] Work Phone: Start: 09-18-2007 Protein mass conc PSA (PROSTATE SPECIFIC ANTIGEN) (V76.44) [facility] Work Phone: Start: 2002 Diabetes Screening Diabetes Screening [facility] Start: 2002 Screening for malignant neoplasm of colon [facility] Start: 1992 Lipid panel Lipid Screening [facility] Start: 1976 Urine microalbumin profile DTaP,Tdap,Td Vaccine (1 - Tdap) [facility] Start: 1975 Annual PCP Team Chronic Disease Visit Annual PCP Team Chronic Disease Visit [facility] Start: 1975 Hepatitis C screening Hepatitis C Screening [facility] Patient referral [facility] Work Phone: [facility] Work Phone: [facility] [...] Immunizations Immunization Date Immunization Notes Care Provider [facility] 05-07-2023 COVID-19 vaccine, ag e 12+ yr, season ([employer]) Danny Ramos MD Work Phone: [facility] Work Phone: 05-07-2023 influenza (HD-IIV4) vaccine, age 65+ yr, high dose, quadrivalent, PF (FLUZONE HIGH-DOSE) Danny Ramos MD Work Phone: [facility] Work Phone: 04-14-2022 influenza, injectable, quadrivalent, preservative free Roman Nichols CNP Work Phone: [facility]; [facility] Work Phone: Comment on above: Site: Left Deltoid 06-26-2021 COVID-19 original vaccine, full dose, monovalent (MODERNA) Danny Ramos MD Work Phone: [facility] Work Phone: 02-10-2021 zoster vaccine recombinant Danny Ramos MD Work Phone: [facility] Work Phone: 11-12-2020 zoster vaccine recombinant Danny Ramos MD Work Phone: [facility] Work Phone: 10-27-2020 zoster vaccine, live Steff Ci matthew [employer] Work Phone: [facility]; [facility] Work Phone: 10-22-2020 COVID-19 original vaccine, full dose, monovalent (MODERNA) Danny Ramos MD Work Phone: [facility] Work Phone: 10-14-2020 COVID-Moderna (100 MCG/0.5 ML) Steff Subramanian [employer] Work Phone: [facility]; [facility] Work Phone: 09-24-2020 COVID-19 original vaccine, full dose, monovalent (MODERNA) Danny Ramos MD Work Phone: [facility] Work Phone: 09-23-2020 COVID-Moderna (100 MCG/0.5 ML) Steff Jenkinsnorris [employer] Work Phone: [facility]; [facility] Work Phone: 03-26-2018 influenza, injectable, quadrivalent, preservative free Danny Ramos MD Work Phone: [facility] Work Phone: 05-07-2017 influenza, injectable, quadrivalent, preservative free Danny Ramos MD Work Phone: [facility] 04-15-2009 tetanus toxoid, reduced diphtheria toxoid, and acellular pertussis vaccine, adsorbed Steff Alicenorris [facility] Work Phone: 09-18-2007 tetanus and diphtheria toxoids, adsorbed, preservative free, for adult use (2 Lf of tetanus toxoid and 2 Lf of diphtheria toxoid) Steff Subramanian [facility] Work Phone: Comment on above: given in left deltoi d,lot #[id number], exp. December 20 2007 AW Payers Date Payer Category Payer Medicare [id number] 2025 Unknown [id number] 2024 Self-pay [id number] 2018 Unknown 2015 Unknown [id number] 1957 Unknown [id number] 2.16.8 [id number] 1957 Unknown [id number] 2.16.8 [id number] 1957 Unknown [id number] 2.16.8 40.1.642208.3.579.2.627 1957 Unknown [id number] 2.16.8 40.1.068889.3.579.2.627 1957 Unknown [id number] 2.16.8 40.1.507806.3.579.2.627 1957 Unknown [id number] 2.16.8 40.1.842462.3.579.2.627 1957 Unknown [id number] 2.16.8 40.1.852555.3.579.2.627 1957 Unknown [id number] 2.16.84 0.1.096885.3.579.2.716 Private Health Insurance [id number] Unknown [id number] 2.16.8 40.1.114989.3.579.2.462 Unknown [id number] 2.16.8 40.1.456668.3.579.2.462 Unknown [id number] 2.16.8 40.1.607006.3.579.2.462 Unknown [id number] 2.16.8 40.1.852138.3.579.2.462 Unknown [id number] 2.16.8 40.1.010911.3.579.2.462 Unknown [id number] 2.16.8 40.1.907447.3.579.2.462 Unknown [id number] 2.16.8 40.1.361418.3.579.2.462 Unknown [id number] 2.16.8 40.1.489468.3.579.2.462 Unknown [id number] 2.16.8 40.1.221234.3.579.2.462 Unknown [id number] 2.16.8 40.1.205619.3.579.2.462 Unknown [id number] 2.16.8 40.1.051393.3.579.2.462 Unknown [id number] 2.16.8 [id number] Social History Date Type Detail Facility Start: 06-16-2020 End: 09-06-2023 Caffeine Use Never smoker [facility] Work Phone: Comment on above: 2 cups qd 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 [facility] Work Phone: Tobacco use: Tobacco use: [facility]; [facility] Work Phone: Start: 08-17-2021 End: 08-21-2023 Never smoked tobacco (finding) [facility] Start: 1955 Sex Assigned At Male [facility] Start: 06-11-2022 Tobacco smoking status VAIS Unknown if ever smoked [facility] Start: 02-01-2018 None [facility] Start: 02-01-2018 Spouse/ Signif icant Other [facility] Start: 03-02-2018 Non-smoker [facility] Start: 07-28-2023 Tobacco use and exposure Smokeless tobacco non-user [facility] Start: 09-06-2023 Alcohol intake Lifetime non-d tony (finding) [facility] Start: 06-16-2020 End: 09-06-2023 Tobacco use panel [facility] National Score (1-100), lower number is lower risk Not on file [facility] Start: 1955 Sex Assigned At Not on file [facility] Functional Status Date Assessment Result Facility 05-24-2022 Functional Status [facility] 05-24-2022 Functional Status Independent [facility] 05-24-2022 Functional Status ice on, tension pillow in place [facility] 05-24-2022 Functional Status Maintained [facility] Mental Status Date Assessment Result Facility 05-24-2022 Mental Status Orientation Oriented x 4 [facility] 05-24-2022 Mental Status Orientation Asse ssment Oriented x 4 [facility] 05-24-2022 Mental Status [facility] 05-24-2022 Mental Status [facility] Clinical Notes 05-02-2022 to 04-09-2025 Note Date & Type Note Facility 04-09-2025 Evaluation note Diagnosis Onset Date Resolution Atherosclerotic heart disease of [place] coronary artery without angina pectoris chronic April 09 10:09am Encounter for monitoring flecainide therapy chronic April 09, 2025 10:09am Hypertension chronic April 09, 2025 10:09am Obesity (BMI 35.0-39.9 without comorbidity) chronic April 10:09am Paroxysmal atrial fibrillation chronic April 09 10:09am [facility] Work Phone: 1(983) 770-324310-01-2025 Progress [facility] [address] [place] [address]. [address] [place], [place] [address] OFFICE VISIT Date of Service: 04/09/25 MR#: [id number] Acct: [id number] Name: NIYA MCKEON Rep #: [id number] : 1955 Provider: Dr. John Rucker MD Age/Sex: 69/M Location: [facility] Status: Signed HPI HPI History of Present Illness Details: Niya has history of paroxysmal atrial fibrillation and hypertension. He is here for follow-up visit. He lost a grandchild earlier this year and had been having difficulty with coping with the loss. According to him, he has since been adjusting slowly. Heart ojeda, he denies any complaints. No chest pains. No shortness of breath. No palpitations. No orthopnea or PND. No ankle edema. Holter monitoring done in February of this year showed sinus rhythm. He continueson flecainide. Intake Vital Signs 11/06/24 08:26 04/09/25 10:20 Height 6 ft 1.5 in 6 ft 1.5 in Weight: 268 lb BMI 34.9 BP 112/74 Blood Pressure Location Lt brachial Position Sitting Respiration 16 Pulse 67 Pulse Source Monitor Intake Visit Reasons: 6 M FU Compensation Supervisor Required: No Accompanied by: Is patient in pain?: No Allergies atorvastatin Adverse Reaction (Severe, Verified 04/09/25 10:21) elevated liver enzymes ibuprofen Adverse Reaction (Intermediate, Verified 04/09/25 10:21) itchiness Medications ?Medication ?Instructions ?Recorded ?Confirmed ?Type omeprazole 20 mg capsule,delayed 20 mg PO DAILY 04/09/25 History release cholecalciferol (vitamin D3) 50 50 mcg PO DAILY 04/09/25 History mcg (2,000 unit) tablet levothyroxine 125 mcg capsule See Rx Instructions PO D AILY 03/16/22 04/09/25 History rivaroxaban 20 mg tablet (Xarelto) 20 mg PO DAILY #90 tabs 01/04/24 04/09/25 Rx flecainide 100 mg tablet 100 mg PO Q12H #180 tabs 04/09/25 Rx losartan 25 mg tablet 25 mg PO DAILY #90 tabs 01/0804/09/25 Rx metoprolol succinate 25 mg 25 mg PO DAILY #90 tabs 04/09/25 Rx tablet,extended release 24 hr Ejection fraction %: 65 Have you fallen in the past year?: No PFSH Medical History Paroxysmal atrial fibrillation Hypertension Obesity (BMI 35.0-39.9 without comorbidity) Acute bronchitis, unspecified Cough Preoperative cardiovascular examination Thyroid disease Snoring Daytime somnolence Nonischemic cardiomyopathy Atherosclerotic heart disease of [place] coronary artery without angina pectoris Chest pain Atrial enlargement, right GERD (gastroesophageal reflux disease) Atrial fibrillation Surgical History Total knee replacement status History of cardioversion (03/02/18) History of left heart catheterization (02/02/18) H/O lateral meniscus repair of left knee (~2004) Family History Mother Hypertension Cancer lung and ovarian Father Cancer Prostate Social History Smoking Status: Never smoker alcohol intake: never substance use type: does not use caffeine: Yes Type: coffee ROS Const Const: Negative for fatigue or weakness Eyes Eyes: Negative for change in vision ENT ENT: Negative for dizziness or balance problems Cardio Chest Pain: No Palpitations: Yes (none for last 2 weeks, some prior to that) Edema: None Resp Respiratory: Negative for SOB with activity, SOB at rest or SOB orthopnea\SOB lying down GI GI: Negative nausea or heartburn Musc Musc: Negative for balance problems Neuro Neuro: Negative for dizziness, lightheadedness, near syncope, syncope or weakness Endo Endo: Negative for fatigue [...] Edema: None: Bilateral Supplemental Info Supplemental Information Labs: LDL Cholesterol, (0-130) 101 mg/dL HDL Cholesterol, (40-) 41 mg/dL Cholesterol, (<=200) 160 mg/dL Triglycerides, (-199) 58 mg/dL Diagnostics: Electrocardiogram Echocardiogram Stress Echocardiogram Cardiac Catheterization Chest X-Ray Venous Doppler Study Pulmonary: Pulmonary Function Test Past Visits: Cardiology Visit Today Assessment and Plan Assessment and Plan (1) Paroxysmal atrial fibrillation: Status: Chronic Plan: Patient previously had a consult with electrophysiology for consideration for A- fib ablation. They recommended continuing flecainide. Continue rivaroxaban. (2) Encounter for monitoring flecainide therapy: Status: Chronic Plan: Maintaining normal sinus rhythm. QTc within normal limits. (3) Hypertension: Status: Chronic Plan: Metoprolol, losartan. (4) Atherosclerotic heart disease of [place] coronary artery without angina pectoris: Status: Chronic Qualifiers: [place] vs. transplanted heart: [place] heart Qualified Code(s): I25.10 - Atherosclerotic heart disease of [place] coronary artery without angina pectoris Comment: Nonobstructive coronary arteries (<30% stenosis in LAD, CX, and RCA: left main normal) per [facility] 02/02/[address] [place]ino @ [facility] Plan: Risk factor modification. Patient not interested in any cholesterol lowering medications. (5) Obesity (BMI 35.0-39.9 without comorbidity): Status: Chronic Plan: Lose weight. Plan Details Follow Up: 6 Months Coding Level of Care Code Off vis,est,level 4 Diagnoses Paroxysmal atrial fibrillation I48.0 Encounter for monitoring flecainide therapy Z51.81; Z79.899 Hypertension I10 Atherosclerosis of [place] coronary artery of [place] heart without angina pectoris I25.10 [place] vs. transplanted heart: [place] heart Obesity (BMI 35.0-39.9 without comorbidity) E66.9 Coding Level of Care Code Off vis,est,level 4 Diagnoses Paroxysmal atrial fibrillation I48.0 Encounter for monitoring flecainide therapy Z51.81; Z79.899 Hypertension I10 Atherosclerosis of [place] coronary artery of [place] heart without angina pectoris I25.10 [place] vs. transplanted heart: [place] heart Obesity (BMI 35.0-39.9 without comorbidity) E66.9 Clinical Quality Measures Falls Risk Screening/Assistive Devices Have you fallen in the past year?: No Cardiac Ejection fraction %: 65 04/09/25 1044 > Date _ Peyton Rucker MD Cosigner Signature: Date (if applicable) CC: HENRI Nichols ~ [facility]04-30-2025 Evaluation note* Diagnosis Onset Date Resolution Status Admit Date 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 angina pectoris chronic November 06, 2024 10:39am Encounter for monitoring flecainide therapy chronic November 06, 2 025 10:39am Hypertension chronic November 06, 2024 10:39am Obesity (BMI 35.0-39.9 witho ut comorbidity) chronic November 06, 2024 10:39am Paroxysmal atrial fibrillation chron ic November 06, 2024 10:39am [facility] Work Phone: 1(696) 966-678402-28-2024 NoteHNO ID: [id number] Author: DANNY RAMOS MD Service: ? Author Type: Physician Type: Progress Notes Filed: 09/10/2023 21:24 Note Text: PRIMARY CARE PHYSICIAN: Kartik Miguel MD [facility] [address] [place] [address] REFERRING PHYSICIAN: Peyton Rucker [address] [address] Patient Care Team: Roman Nichols CNP as PCP - General (Family Medicine) Neo, MD Peyton as Specialty Technical Trainer (Cardiology) CHIEF COMPLAINT: Evaluation of arrhythmia HISTORY OF PRESENT ILLNESS: Mr. Mckeon is a 68 year old male who presents today for evaluation of arrhythmia. He states atrial fibrillation was diagnosed in 2017, had wax build up at the time, was seen by a nurse who diagnosed the irregular rhythm. He was found to have atrial fibrillation, was evaluated and treated by a chief customer officer. He was found to have moderate cardiomyopathy [...] risk for stroke Atherosclerotic heart disease of [place] coronary artery without angina pectoris Cardiomegaly History of cardioversion 2018 Hypothyroidism [facility] current use of antiarrhythmic drug Paroxysmal atrial [...] EXAMINATION: BP 110/71 Pulse 68 Ht 6' 1.5 (1.87m) Wt 263 lb 6.4 oz (119.5kg) [...] Mood normal. (more content not included)...[facility]02-28-2024 History of Present illness Narrative* Danny Ramos MD - 09/06/2023 2:20 PM EST PRIMARY CARE PHYSICIAN: Kartik Miguel MD [facility] [address] [place] [address] REFERRING PHYSICIAN: Peyton Rucker [address] [address] Patient Care Team: Roman Nichols CNP as PCP - General (Family Medicine) Peyton Rucker MD as Specialty Technical Trainer (Cardiology) CHIEF COMPLAINT: Evaluation of arrhythmia HISTORY OF PRESENT ILLNESS: Mr. Mckeon is a 68 year old male who presents today for evaluation of arrhythmia. He states atrial fibrillation was diagnosed in 2017, had wax build up at the time, was seen by a nurse who diagnosedthe irregular rhythm. He was found to have atrial fibrillation, was evaluated and treated by a chief customer officer. He was found to have moderate cardiomyopathy [...] risk for stroke Atherosclerotic heart disease of [place] coronary artery without angina pectoris Cardiomegaly History of cardioversion 2018 Hypothyroidism [facility] current use of antiarrhythmic drug Paroxysmal atrial fibrillation (HCC) PAST SURGICAL HISTORY Procedure Laterality Date ARTHROTOMY W/MENISCUS REPAIR KNEE Left 2005 CARDIOVERSION, ELECTIVE, ELECTRICAL 01/2018 LEFT HEART CATH,PERCUTANEOUS [...] EXAMINATION: BP 110/71 Pulse 68 Ht 6' 1.5 (1.87m) Wt 263 lb 6.4 oz (119.5kg) [...] rhythm 61 bpm; mild first-degree AV block ([place] 208 ms); normal QRS lawsyqkz878 ms; QTc 442 ms; conduction intervals and QTc appropriate on flecainide I have personally reviewed the Electrocardiogram. 1. Paroxysmal atrial fibrillation (HCC) - ICD9: 427.31, ICD10: I48.0 (primary diagnosis) 2. FPC current use of antiarrhythmic drug - ICD9: [...] based upon stroke risk profile (such as [id number] score), so likely the recommendation will be [...] He will continue to follow up with [facility]. Danny Ramos MD 09/06/2023 Medical Decision Making: Problems: Moderate: 2+ stable chronic illnesses Data: Unique source(s) for external note(s) reviewed: 1 Unique test result(s) reviewed: 3+ Unique test(s) ordered: 1 Risk: Moderate: Moderate risk from testing/treatment, Drug management and Decision on minor surgery w/ risk factors Medical Decision Making Level: 4 - Moderate [facility]* Estefany Chahal MA - 09/06/2023 2:19 PM EST Patient denies cardiac complaints or symptoms. [facility] Anesthesiology Consult note Patient: NIYA MCKEON Age: 67 years Sex: Male : 1955 Associated Diagnoses: None Author: DEE DEE PRATT APRN-LABORATORY COURIER Assessment Postanesthesia assessment Vitals: Vital signs from [...] DEE DEE PRATT on 05/24/2022 01:35 PM [facility]11-15-2022 Hospital Discharge instructions Patient Education 05/24/2022 09:21:50 Total Knee Replacement, Care After, Shlc-cd-Ckhr Total Knee Replacement, Care After This sheet [...] Follow these instructions at home: Medicines Take mlgs-jik-nwjzsjq and prescription medicines only as told by [...] keep your pee (urine) pale yellow. ?Take vdir-xpb-dqsuxbe or prescription medicines. ?Eat foods that are [...] cannot use soap and water, use hand building manager. ?Change your bandage as told by your [...] 09/17/2012 Document Revised: 11/04/2019 Document Reviewed: 02/07/2019 Fixed - Parking Tickets Patient Education 2019 [employer]. 05/24/2022 09:21:46 Monitored Anesthesia Care, Care After [...] before eating solid foods. General instructions Take aeon-qhn-visoysy and prescription medicines only as told by [...] 10/16/2016 Document Revised: 09/24/2018 Document Reviewed: 10/16/2016 Fixed - Parking Tickets Patient Education 2020 [employer]. 05/24/2022 09:21:45 Nausea and Vomiting, Adult, Yuxp-gu-Wkkn Nausea and Vomiting, Adult Nausea is feeling [...] fruit juice). ?Low-calorie sports drinks. Eat bland, pjnh-ou-vfplps foods in small amounts as you are able, such as: ?Bananas. ?Applesauce. ?Rice. ?Low-fat (lean) meats. ?[place]. ?Crackers. Avoid drinking fluids that have a lot of sugar or caffeine in them. This includes energy drinks, sports drinks, and soda. Avoid alcohol. Avoid spicy or fatty foods. General instructions Take iyjr-glp-voimvuy and prescription medicines only as told by your doctor. Drink enough fluid to keep your pee (urine) pale yellow. Wash your hands often with soap and water. If you cannot use soap and water, use hand building manager. Make sure that all people in your [...] too much water in your body. Take kwzc-afk-ijmcxcj and prescription medicines only as told by [...] 12/12/2008 Document Revised: 10/18/2019 Document Reviewed: 12/04/2018 Fixed - Parking Tickets Patient Education 2020 [employer]. Follow Up Care 03/16/2022 11:19:21 With:USHA PATTON Address: [facility] [address] [place] [address]- Business (1) When: Unknown Comments:06/06/22 @3:45PM [facility] 11-15-2022 Summary of episode note Discharge Instructions Thank you for allowing [facility] to assist you with your healthcare needs. [...] 06/06/22 @3:45PM Where: [facility] [address] [place] [address]- [employer] [employer] (1) Allergies ibuprofen (Itching) Medications Please ask [...] Follow these instructions at home: Medicines Take afrq-cis-hmoxlgo and prescription medicines only as told by [...] your pee (urine) pale yellow. ? Take ntju-zdj-whfkkjs or prescription medicines. ? Eat foods that [...] cannot use soap and water, use hand building manager. ? Change your bandage as told by [...] 09/17/2012 Document Revised: 11/04/2019 Document Reviewed: 02/07/2019 [employer] Patient Education 2020 Fixed - Park[employer] Monitored Anesthesia Care, Care After These [...] before eating solid foods. General instructions Take wpfx-stt-rvdkvqk and prescription medicines only as told by [...] 10/16/2016 Document Revised: 09/24/2018 Document Reviewed: 10/16/2016 Fixed - Parking Tickets Patient Education 2020 [employer]. Nausea and Vomiting, Adult Nausea is feeling [...] juice). ? Low-calorie sports drinks. Eat bland, elmu-mk-kgrfrd foods in small amounts as you are able, such as: ? Bananas. ? Applesauce. ? Rice. ? Low-fat (lean) meats. ? [place]. ? Crackers. Avoid drinking fluids that have a lot of sugar or caffeine in them. This includes energy drinks, sports drinks, and soda. Avoid alcohol. Avoid spicy or fatty foods. General instructions Take ujoc-byb-ebdnzzz and prescription medicines only as told by your doctor. Drink enough fluid to keep your pee (urine) pale yellow. Wash your hands often with soap and water. If you cannot use soap and water, use hand building manager. Make sure that all people in your [...] too much water in your body. Take rupl-olt-omrfnjq and prescription medicines only as told by [...] 12/12/2008 Document Revised: 10/18/2019 Document Reviewed: 12/04/2018 [employer] Patient Education 2020 Fixed - Park[employer] Additional Information VACCINATE! IT SAVES LIVES! Members of the community who have not yet received the COVID-19 vaccine and would like to receive it can visit one of [facility] vaccine clinics. There are many vaccine clinic locations within the [facility]. For locations and available times, please visit [email or web address] It is important to note that some COVID mobile vaccine clinics are held outdoors and may be canceled in rainy or stormy conditions. To learn more about pediatric vaccinations (ages 5-11), we invite you to visit the [facility] webpage. [email or web address] [email or web address]-Kyemf-Kyh [email or web address] learn more about the COVID-19 vaccine, we invite you to visit the [facility] website for a list of frequently asked questions. [email or web address] [email or web address].pdf [facility] Patient Portal Access Instructions: Stay connected with your healthcare team and access your personal medical information anytime with the [facility] Patient Portal.If you would like a full copy of your medical records, please contact the [facility] Medical Records Department, Monday through Monday between 8a.m. and 4:30p.m. Please follow the directions below to access the portal: 1.Access the email account you provided upon registration to the hospital.2.Look for an invitation email from [facility].3.Open the email and access the invitation link: Accept Invitation to [facility]4.Fill in the required jefferson to create your account. Sign into [email or web address] with your username and password that you [...] you will allow to register on the [facility] Patient Portal for access to your information. You can also access the [facility] Patient Portal on the LoopNet. Simply click on Health Records under HealthData and then click on the CaptiveMotion logo. HOW TO SAFELY DISPOSE OF PRESCRIPTION [...] Call your local pharmacy or go to [email or web address] to find one close to you.3.Make use of household items: Use cat litter or old coffee grounds to dispose medications if other options arenot available. Mix your drugs with these household products, seal them in an airtight container andthrow it into the garbage. Call [facility]: [phone] to be sure your drugs can be [...] Education Materials Total Knee Replacement, Care After, Azgi-ga-Lgqh Monitored Anesthesia Care, Care After Nausea and Vomiting, Adult, Yglm-xu-Entz Medication Leaflets My discharge plan and instructions have been reviewed and explained to me and I,NIYA MCKEON understand my current condition and have read and understand these discharge instructions. I have received a written copy of the plan/instructions. If I have questions, I am aware that I should contact my doctor. Patient/Bilingual Interpreter Signature: Date/Time: Relationship to Patient: Witness Name/Signature: Date/Time: [facility]11-15-2022 Note ORIGINAL EXAMINATION: TWO XRAY VIEWS OF [...] Date: 05/24/2022 9:14:29 AM Ordering Provider: MIYA PARRA [facility]11-15-2022 Note ORIGINAL EXAMINATION: TWO XRAY VIEWS OF [...] Sign Date: 05/24/2022 9:14:29 AM Ordering Provider: [facility]11-15-2022 Anesthesiology Consult note Patient: NIYA MCKEON [...] negative. Procedure history: Arthroscopy of knee joint ([id number]). Comments: 08/17/2021 8:33 Radha Galvez RN left Bone spur of left elbow ([id number]). Colonoscopy ([id number]). Cardioversion ([id number]). Social History Social & Psychosocial Habits Alcohol [...] Last Charted Resp Rate 14 br/min (MAY 24:54) ONG910 mmHg (MAY 24:54) DBP89 mmHg (MAY 24:) BMI34.39 (MAY 24:) Measurements from flowsheet : Measurements 05/24/2022 5:54 EST Height 185.4 cm Height in inches 73 inch(es) Admission Weight 118.2 kg Weight Lbs 260 lb Weight Method Stated [place] Body Weight 79.88 kg Body Mass Index [...] Person #1 We May Share SHERRIE MCKEON [phone] Designated Person #1 Relationship Spouse Privacy Restrictions Requested None Height 185.4 cm Height in inches 73 inch(es) Admission Weight 118.2 kg Weight Lbs 260 lb Weight Method Stated [place] Body Weight 79.88 kg Body Mass Index [...] Status N/A Skin Temperature Warm Skin Description [place], Dry Skin Integrity Intact IV Present Present [...] Weeks No Weight Loss No Allergies Yes Wrapper Hand On Yes Consent Form Signed Yes Patient [...] Completed Yes Safety Brochure Information Reviewed Yes [facility] Video Viewed No Barriers to Learning None evident Teaching Method Explanation, Printed materials Teaching Evaluation Verbalizes/Nonverbally indicates understanding Preferred Written Language French Preferred Spoken Language French Information Given by Patient Patient's Current Physicians [...] Day Patient History . Assessment and Plan [place] Society of Anesthesiologists (ASA) physical status classification: Class III. Anesthetic Preoperative Plan Anesthetic technique: Spinal. Regional: Spinal. Postoperative pain management: adductor canal block. Risks discussed: nausea, vomiting, headache, hypotension, allergic reaction, serious complications. Informed consent: signed by patient. 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 Atrial fibrillation chronic Nonischemic cardiomyopathy c hronic [facility] Work Phone: Evaluation noteNo assessment information available [facility] Work Phone: Evaluation note* Diagnosis Paroxysmal atrial fibrillation (HCC)- Primary 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 Encounter for monitoring flecainide therapy Encounter for therapeutic drug monitoring At risk for stroke Other specified personal history presenting hazards to health Anticoagulant long-term use Long-term (current) use of anticoagulants Obesity, Class I, BMI 30-34.9 Obesity, unspecified documented in this encounter [facility] Diagnosis Onset Date Resolution Status Admit Date 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 Work Phone: Hospital course Narrative No data available for this section [facility] Hospital Discharge instructions No data available for this section [facility] Instructions* Name Dates Details DISCONTINUED - TSH (THYROID STIMULATING HORMONE) (79813) Indication:Hypothyroid Start:05-Oct-2020 Instruction Type:Patient Education DISCONTINUED - METABOLIC SUTTON EL, COMPREHENSIVE (19780) Indication:Elevated liver enzymes Start:05-Oct-2020 Instruction Type:Patient Education DISCONTINUED - LIPID PANEL ( 01834) Indication:Elevated liver enzymes Start:05-Oct-2020 Instruction Type:Patient Education DISCONTINUED - CBC, PLATELET S & AUT DIFF (50971) Indication:Elevated liver enzymes Start:05-Oct-2020 Instruction Type:Patient Education DISCONTINUED - METABOLIC SUTTON EL, COMPREHENSIVE (37138) Indication:Elevated liver enzymes Start:05-Oct-2020 Instruction Type:Patient Education DISCONTINUED - MICROALBUMIN: CREATININE RATIO (84714) AND (41212) Indication:Hypertension Start:05-Oct-2020 Instruction Type:Patient Education DISCONTINUED - TSH (97849) Indication:Hypertension Start:05-Oct-2020 Instruction Type:Patient Education DISCONTINUED - CBC, PLATELET S & AUT DIFF (66910) Indication:Hypertension Start:05-Oct-2020 Instruction Type:Patient Education DISCONTINUED - METABOLIC SUTTON EL, COMPREHENSIVE (53137) Indication:Hypertension Start:05-Oct-2020 Instruction Type:Patient Education DISCONTINUED - METABOLIC SUTTON EL, COMPREHENSIVE (69820) Indication:Hypertension Start:05-Oct-2020 Instruction Type:Patient Education DISCONTINUED - LIPID PANEL ( 28483) Indication:Hypercholesteremia Start:05-Oct-2020 Instruction Type:Patient Education Patient Instructions Indication:Elevated liver enzymes Start:05-Oct-2020 Instruction Type:Provider Instructions for Treatment How to Access Health Informa tion Online using Patient Portal and 3rd [employer] Apps Indication:Current nonsmoker (Renamed from Current non-smoker) [...] Details DISCONTINUED - TSH (THYROID STIMULATING HORMONE) (13359) Indication:Hypothyroid Start:05-Oct-2020 Instruction Type:Patient Education DISCONTINUED - METABOLIC SUTTON EL, COMPREHENSIVE (12363) Indication:Elevated liver enzymes Start:05-Oct-2020 Instruction Type:Patient Education DISCONTINUED - LIPID PANEL ( 08913) Indication:Elevated liver enzymes Start:05-Oct-2020 Instruction Type:Patient Education DISCONTINUED - CBC, PLATELET S & AUT DIFF (11364) Indication:Elevated liver enzymes Start:05-Oct-2020 Instruction Type:Patient Education DISCONTINUED - METABOLIC SUTTON EL, COMPREHENSIVE (56283) Indication:Elevated liver enzymes Start:05-Oct-2020 Instruction Type:Patient Education DISCONTINUED - MICROALBUMIN: CREATININE RATIO (56579) AND (67173) Indication:Hypertension Start:05-Oct-2020 Instruction Type:Patient Education DISCONTINUED - TSH (92824) Indication:Hypertension Start:05-Oct-2020 Instruction Type:Patient Education DISCONTINUED - CBC, PLATELET S & AUT DIFF (37451) Indication:Hypertension Start:05-Oct-2020 Instruction Type:Patient Education DISCONTINUED - METABOLIC SUTTON EL, COMPREHENSIVE (43534) Indication:Hypertension Start:05-Oct-2020 Instruction Type:Patient Education DISCONTINUED - METABOLIC SUTTON EL, COMPREHENSIVE (05431) Indication:Hypertension Start:05-Oct-2020 Instruction Type:Patient Education DISCONTINUED - LIPID PANEL ( 99263) Indication:Hypercholesteremia Start:05-Oct-2020 Instruction Type:Patient Education Patient Instructions Indication:Elevated liver enzymes Start:05-Oct-2020 Instruction Type:Provider Instructions for Treatment How to Access Health Informa tion Online using Patient Portal and 3rd [employer] Apps Indication:Current nonsmoker (Renamed from Current non-smoker) [...] Details DISCONTINUED - TSH (THYROID STIMULATING HORMONE) (63172) Indication:Hypothyroid Start:05-Oct-2020 Instruction Type:Patient Education DISCONTINUED - METABOLIC SUTTON EL, COMPREHENSIVE (86320) Indication:Elevated liver enzymes Start:05-Oct-2020 Instruction Type:Patient Education DISCONTINUED - LIPID PANEL ( 68262) Indication:Elevated liver enzymes Start:05-Oct-2020 Instruction Type:Patient Education DISCONTINUED - CBC, PLATELET S & AUT DIFF (42989) Indication:Elevated liver enzymes Start:05-Oct-2020 Instruction Type:Patient Education DISCONTINUED - METABOLIC SUTTON EL, COMPREHENSIVE (91440) Indication:Elevated liver enzymes Start:05-Oct-2020 Instruction Type:Patient Education DISCONTINUED - MICROALBUMIN: CREATININE RATIO (72878) AND (41564) Indication:Hypertension Start:05-Oct-2020 Instruction Type:Patient Education DISCONTINUED - TSH (37215) Indication:Hypertension Start:05-Oct-2020 Instruction Type:Patient Education DISCONTINUED - CBC, PLATELET S & AUT DIFF (03420) Indication:Hypertension Start:05-Oct-2020 Instruction Type:Patient Education DISCONTINUED - METABOLIC SUTTON EL, COMPREHENSIVE (06333) Indication:Hypertension Start:05-Oct-2020 Instruction Type:Patient Education DISCONTINUED - METABOLIC SUTTON EL, COMPREHENSIVE (30583) Indication:Hypertension Start:05-Oct-2020 Instruction Type:Patient Education DISCONTINUED - LIPID PANEL ( 21036) Indication:Hypercholesteremia Start:05-Oct-2020 Instruction Type:Patient Education Patient Instructions Indication:Elevated liver enzymes Start:05-Oct-2020 Instruction Type:Provider Instructions for Treatment How to Access Health Informa tion Online using Patient Portal and 3rd [employer] Apps Indication:Current nonsmoker (Renamed from Current non-smoker) [...] Informa tion Online using Patient Portal and [employer] Apps Indication:Current nonsmoker (Renamed from Current non-smoker) Start:11-Jun-2021 Instruction Type:Patient Education Patient Instructions Indication:Current nonsmoker (Renamed from Current non-smoker) Start:09-Feb-2021 Instruction Type:Provider Instructions for Treatment How to Access Health Informa tion Online using Patient Portal and [employer] Apps Indication:Current nonsmoker (Renamed from Current non-smoker) Start:09-Feb-2021 Instruction Type:Patient Education DISCONTINUED - TSH (THYROID STIMULATING HORMONE) (79897) Indication:Hypothyroid Start:05-Oct-2020 Instruction Type:Patient Education DISCONTINUED - METABOLIC SUTTON EL, COMPREHENSIVE (04055) Indication:Elevated liver enzymes Start:05-Oct-2020 Instruction Type:Patient Education DISCONTINUED - LIPID PANEL ( 08383) Indication:Elevated liver enzymes Start:05-Oct-2020 Instruction Type:Patient Education DISCONTINUED - CBC, PLATELET S & AUT DIFF (19641) Indication:Elevated liver enzymes Start:05-Oct-2020 Instruction Type:Patient Education DISCONTINUED - METABOLIC SUTTON EL, COMPREHENSIVE (25455) Indication:Elevated liver enzymes Start:05-Oct-2020 Instruction Type:Patient Education DISCONTINUED - MICROALBUMIN: CREATININE RATIO (13325) AND (04361) Indication:Hypertension Start:05-Oct-2020 Instruction Type:Patient Education DISCONTINUED - TSH (51997) Indication:Hypertension Start:05-Oct-2020 Instruction Type:Patient Education DISCONTINUED - CBC, PLATELET S & AUT DIFF (45854) Indication:Hypertension Start:05-Oct-2020 Instruction Type:Patient Education DISCONTINUED - METABOLIC SUTTON EL, COMPREHENSIVE (87815) Indication:Hypertension Start:05-Oct-2020 Instruction Type:Patient Education DISCONTINUED - METABOLIC SUTTON EL, COMPREHENSIVE (37647) Indication:Hypertension Start:05-Oct-2020 Instruction Type:Patient Education DISCONTINUED - LIPID PANEL ( 70287) Indication:Hypercholesteremia Start:05-Oct-2020 Instruction Type:Patient Education Patient Instructions Indication:Elevated liver enzymes Start:05-Oct-2020 Instruction Type:Provider Instructions for Treatment How to Access Health Informa tion Online using Patient Portal and 3rd [employer] Apps Indication:Current nonsmoker (Renamed from Current non-smoker) [...] Informa tion Online using Patient Portal and [employer] Apps Indication:Current nonsmoker (Renamed from Current non-smoker) Start:14-Jul-2021 Instruction Type:Patient Education Patient Instructions Indication:Current nonsmoker (Renamed from Current non-smoker) Start:11-Jun-2021 Instruction Type:Provider Instructions for Treatment How to Access Health Informa tion Online using Patient Portal and [employer] Apps Indication:Current nonsmoker (Renamed from Current non-smoker) Start:11-Jun-2021 Instruction Type:Patient Education Patient Instructions Indication:Current nonsmoker (Renamed from Current non-smoker) Start:09-Feb-2021 Instruction Type:Provider Instructions for Treatment How to Access Health Informa tion Online using Patient Portal and [employer] Apps Indication:Current nonsmoker (Renamed from Current non-smoker) Start:09-Feb-2021 Instruction Type:Patient Education DISCONTINUED - TSH (THYROID STIMULATING HORMONE) (82569) Indication:Hypothyroid Start:05-Oct-2020 Instruction Type:Patient Education DISCONTINUED - METABOLIC SUTTON EL, COMPREHENSIVE (64632) Indication:Elevated liver enzymes Start:05-Oct-2020 Instruction Type:Patient Education DISCONTINUED - LIPID PANEL ( 79050) Indication:Elevated liver enzymes Start:05-Oct-2020 Instruction Type:Patient Education DISCONTINUED - CBC, PLATELET S & AUT DIFF (33906) Indication:Elevated liver enzymes Start:05-Oct-2020 Instruction Type:Patient Education DISCONTINUED - METABOLIC SUTTON EL, COMPREHENSIVE (09089) Indication:Elevated liver enzymes Start:05-Oct-2020 Instruction Type:Patient Education DISCONTINUED - MICROALBUMIN: CREATININE RATIO (05825) AND (64600) Indication:Hypertension Start:05-Oct-2020 Instruction Type:Patient Education DISCONTINUED - TSH (80596) Indication:Hypertension Start:05-Oct-2020 Instruction Type:Patient Education DISCONTINUED - CBC, PLATELET S & AUT DIFF (93700) Indication:Hypertension Start:05-Oct-2020 Instruction Type:Patient Education DISCONTINUED - METABOLIC SUTTON EL, COMPREHENSIVE (55554) Indication:Hypertension Start:05-Oct-2020 Instruction Type:Patient Education DISCONTINUED - METABOLIC SUTTON EL, COMPREHENSIVE (22157) Indication:Hypertension Start:05-Oct-2020 Instruction Type:Patient Education DISCONTINUED - LIPID PANEL ( 99830) Indication:Hypercholesteremia Start:05-Oct-2020 Instruction Type:Patient Education Patient Instructions Indication:Elevated liver enzymes Start:05-Oct-2020 Instruction Type:Provider Instructions for Treatment How to Access Health Informa tion Online using Patient Portal and 3rd [employer] Apps Indication:Current nonsmoker (Renamed from Current non-smoker) [...] Informa tion Online using Patient Portal and [employer] Indication:Current nonsmoker (Renamed from Current non-smoker) Start:11-Aug-2021 Instruction Type:Patient Education Patient Instructions Indication:Anticoagulated Start:14-Jul-2021 Instruction Type:Provider Instructions for Treatment How to Access Health Informa tion Online using Patient Portal and [employer] Apps Indication:Current nonsmoker (Renamed from Current non-smoker) Start:14-Jul-2021 Instruction Type:Patient Education Patient Instructions Indication:Current nonsmoker (Renamed from Current non-smoker) Start:11-Jun-2021 Instruction Type:Provider Instructions for Treatment How to Access Health Informa tion Online using Patient Portal and [employer] Apps Indication:Current nonsmoker (Renamed from Current non-smoker) Start:11-Jun-2021 Instruction Type:Patient Education Patient Instructions Indication:Current nonsmoker (Renamed from Current non-smoker) Start:09-Feb-2021 Instruction Type:Provider Instructions for Treatment How to Access Health Informa tion Online using Patient Portal and [employer] Apps Indication:Current nonsmoker (Renamed from Current non-smoker) Start:09-Feb-2021 Instruction Type:Patient Education DISCONTINUED - TSH (THYROID STIMULATING HORMONE) (30212) Indication:Hypothyroid Start:05-Oct-2020 Instruction Type:Patient Education DISCONTINUED - METABOLIC SUTTON EL, COMPREHENSIVE (48194) Indication:Elevated liver enzymes Start:05-Oct-2020 Instruction Type:Patient Education DISCONTINUED - LIPID PANEL ( 96058) Indication:Elevated liver enzymes Start:05-Oct-2020 Instruction Type:Patient Education DISCONTINUED - CBC, PLATELET S & AUT DIFF (28814) Indication:Elevated liver enzymes Start:05-Oct-2020 Instruction Type:Patient Education DISCONTINUED - METABOLIC SUTTON EL, COMPREHENSIVE (43413) Indication:Elevated liver enzymes Start:05-Oct-2020 Instruction Type:Patient Education DISCONTINUED - MICROALBUMIN: CREATININE RATIO (11801) AND (69710) Indication:Hypertension Start:05-Oct-2020 Instruction Type:Patient Education DISCONTINUED - TSH (08127) Indication:Hypertension Start:05-Oct-2020 Instruction Type:Patient Education DISCONTINUED - CBC, PLATELET S & AUT DIFF (87551) Indication:Hypertension Start:05-Oct-2020 Instruction Type:Patient Education DISCONTINUED - METABOLIC SUTTON EL, COMPREHENSIVE (96847) Indication:Hypertension Start:05-Oct-2020 Instruction Type:Patient Education DISCONTINUED - METABOLIC SUTTON EL, COMPREHENSIVE (91915) Indication:Hypertension Start:05-Oct-2020 Instruction Type:Patient Education DISCONTINUED - LIPID PANEL ( 52036) Indication:Hypercholesteremia Start:05-Oct-2020 Instruction Type:Patient Education Patient Instructions Indication:Elevated liver enzymes Start:05-Oct-2020 Instruction Type:Provider Instructions for Treatment How to Access Health Informa tion Online using Patient Portal and [employer] Apps Indication:Current nonsmoker (Renamed from Current non-smoker) [...] tion Online using Patient Portal and [employer] Apps Indication:Current nonsmoker (Renamed from Current non-smoker) Start:11-Aug-2021 Instruction Type:Patient Education Patient Instructions Indication:Anticoagulated Start:14-Jul-2021 Instruction Type:Provider Instructions for Treatment How to Access Health Informa tion Online using Patient Portal and [employer] Apps Indication:Current nonsmoker (Renamed from Current non-smoker) Start:14-Jul-2021 Instruction Type:Patient Education Patient Instructions Indication:Current nonsmoker (Renamed from Current non-smoker) Start:11-Jun-2021 Instruction Type:Provider Instructions for Treatment How to Access Health Informa tion Online using Patient Portal and [employer] Apps Indication:Current nonsmoker (Renamed from Current non-smoker) Start:11-Jun-2021 Instruction Type:Patient Education Patient Instructions Indication:Current nonsmoker (Renamed from Current non-smoker) Start:09-Feb-2021 Instruction Type:Provider Instructions for Treatment How to Access Health Informa tion Online using Patient Portal and [employer] Apps Indication:Current nonsmoker (Renamed from Current non-smoker) Start:09-Feb-2021 Instruction Type:Patient Education DISCONTINUED - TSH (THYROID STIMULATING HORMONE) (31086) Indication:Hypothyroid Start:05-Oct-2020 Instruction Type:Patient Education DISCONTINUED - METABOLIC SUTTON EL, COMPREHENSIVE (19574) Indication:Elevated liver enzymes Start:05-Oct-2020 Instruction Type:Patient Education DISCONTINUED - LIPID PANEL ( 96366) Indication:Elevated liver enzymes Start:05-Oct-2020 Instruction Type:Patient Education DISCONTINUED - CBC, PLATELET S & AUT DIFF (24427) Indication:Elevated liver enzymes Start:05-Oct-2020 Instruction Type:Patient Education DISCONTINUED - METABOLIC SUTTON EL, COMPREHENSIVE (60409) Indication:Elevated liver enzymes Start:05-Oct-2020 Instruction Type:Patient Education DISCONTINUED - MICROALBUMIN: CREATININE RATIO (16907) AND (95575) Indication:Hypertension Start:05-Oct-2020 Instruction Type:Patient Education DISCONTINUED - TSH (90755) Indication:Hypertension Start:05-Oct-2020 Instruction Type:Patient Education DISCONTINUED - CBC, PLATELET S & AUT DIFF (35757) Indication:Hypertension Start:05-Oct-2020 Instruction Type:Patient Education DISCONTINUED - METABOLIC SUTTON EL, COMPREHENSIVE (01626) Indication:Hypertension Start:05-Oct-2020 Instruction Type:Patient Education DISCONTINUED - METABOLIC SUTTON EL, COMPREHENSIVE (44732) Indication:Hypertension Start:05-Oct-2020 Instruction Type:Patient Education DISCONTINUED - LIPID PANEL ( 19286) Indication:Hypercholesteremia Start:05-Oct-2020 Instruction Type:Patient Education Patient Instructions Indication:Elevated liver enzymes Start:05-Oct-2020 Instruction Type:Provider Instructions for Treatment How to Access Health Informa tion Online using Patient Portal and [employer] Apps Indication:Current nonsmoker (Renamed from Current non-smoker) [...] Informa tion Online using Patient Portal and [employer] Apps Indication:Current nonsmoker (Renamed from Current non-smoker) Start:11-Aug-2021 Instruction Type:Patient Education Patient Instructions Indication:Anticoagulated Start:14-Jul-2021 Instruction Type:Provider Instructions for Treatment How to Access Health Informa tion Online using Patient Portal and [employer] Apps Indication:Current nonsmoker (Renamed from Current non-smoker) Start:14-Jul-2021 Instruction Type:Patient Education Patient Instructions Indication:Current nonsmoker (Renamed from Current non-smoker) Start:11-Jun-2021 Instruction Type:Provider Instructions for Treatment How to Access Health Informa tion Online using Patient Portal and [employer] Apps Indication:Current nonsmoker (Renamed from Current non-smoker) Start:11-Jun-2021 Instruction Type:Patient Education Patient Instructions Indication:Current nonsmoker (Renamed from Current non-smoker) Start:09-Feb-2021 Instruction Type:Provider Instructions for Treatment How to Access Health Informa tion Online using Patient Portal and [employer] Apps Indication:Current nonsmoker (Renamed from Current non-smoker) Start:09-Feb-2021 Instruction Type:Patient Education DISCONTINUED - TSH (THYROID STIMULATING HORMONE) (38894) Indication:Hypothyroid Start:05-Oct-2020 Instruction Type:Patient Education DISCONTINUED - METABOLIC SUTTON EL, COMPREHENSIVE (44035) Indication:Elevated liver enzymes Start:05-Oct-2020 Instruction Type:Patient Education DISCONTINUED - LIPID PANEL ( 33564) Indication:Elevated liver enzymes Start:05-Oct-2020 Instruction Type:Patient Education DISCONTINUED - CBC, PLATELET S & AUT DIFF (15645) Indication:Elevated liver enzymes Start:05-Oct-2020 Instruction Type:Patient Education DISCONTINUED - METABOLIC SUTTON EL, COMPREHENSIVE (41622) Indication:Elevated liver enzymes Start:05-Oct-2020 Instruction Type:Patient Education DISCONTINUED - MICROALBUMIN: CREATININE RATIO (72044) AND (20254) Indication:Hypertension Start:05-Oct-2020 Instruction Type:Patient Education DISCONTINUED - TSH (75532) Indication:Hypertension Start:05-Oct-2020 Instruction Type:Patient Education DISCONTINUED - CBC, PLATELET S & AUT DIFF (01654) Indication:Hypertension Start:05-Oct-2020 Instruction Type:Patient Education DISCONTINUED - METABOLIC SUTTON EL, COMPREHENSIVE (46696) Indication:Hypertension Start:05-Oct-2020 Instruction Type:Patient Education DISCONTINUED - METABOLIC SUTTON EL, COMPREHENSIVE (27039) Indication:Hypertension Start:05-Oct-2020 Instruction Type:Patient Education DISCONTINUED - LIPID PANEL ( 24891) Indication:Hypercholesteremia Start:05-Oct-2020 Instruction Type:Patient Education Patient Instructions Indication:Elevated liver enzymes Start:05-Oct-2020 Instruction Type:Provider Instructions for Treatment How to Access Health Informa tion Online using Patient Portal and [employer] Apps Indication:Current nonsmoker (Renamed from Current non-smoker) [...] tion Online using Patient Portal and [employer] Apps Start:11-Aug-2021 Instruction Type:Patient Education Patient Instructions Indication:Anticoagulated Start:14-Jul-2021 Instruction Type:Provider Instructions for Treatment How to Access Health Informa tion Online using Patient Portal and [employer] Apps Start:14-Jul-2021 Instruction Type:Patient Education Patient Instructions Start:11-Jun-2021 Instruction Type:Provider Instructions for Treatment How to Access Health Informa tion Online using Patient Portal and [employer] Apps Start:11-Jun-2021 Instruction Type:Patient Education Patient Instructions Start:09-Feb-2021 Instruction Type:Provider Instructions for Treatment How to Access Health Informa tion Online using Patient Portal and [employer] Apps Start:09-Feb-2021 Instruction Type:Patient Education DISCONTINUED - TSH (THYROID STIMULATING HORMONE) (73163) Indication:Hypothyroid Start:05-Oct-2020 Instruction Type:Patient Education DISCONTINUED - METABOLIC SUTTON EL, COMPREHENSIVE (65842) Indication:Elevated liver enzymes Start:05-Oct-2020 Instruction Type:Patient Education DISCONTINUED - LIPID PANEL ( 18634) Indication:Elevated liver enzymes Start:05-Oct-2020 Instruction Type:Patient Education DISCONTINUED - CBC, PLATELET S & AUT DIFF (15819) Indication:Elevated liver enzymes Start:05-Oct-2020 Instruction Type:Patient Education DISCONTINUED - METABOLIC SUTTON EL, COMPREHENSIVE (74916) Indication:Elevated liver enzymes Start:05-Oct-2020 Instruction Type:Patient Education DISCONTINUED - MICROALBUMIN: CREATININE RATIO (18180) AND (09129) Indication:Hypertension Start:05-Oct-2020 Instruction Type:Patient Education DISCONTINUED - TSH (96934) Indication:Hypertension Start:05-Oct-2020 Instruction Type:Patient Education DISCONTINUED - CBC, PLATELET S & AUT DIFF (04877) Indication:Hypertension Start:05-Oct-2020 Instruction Type:Patient Education DISCONTINUED - METABOLIC SUTTON EL, COMPREHENSIVE (92574) Indication:Hypertension Start:05-Oct-2020 Instruction Type:Patient Education DISCONTINUED - METABOLIC SUTTON EL, COMPREHENSIVE (85013) Indication:Hypertension Start:05-Oct-2020 Instruction Type:Patient Education DISCONTINUED - LIPID PANEL ( 32259) Indication:Hypercholesteremia Start:05-Oct-2020 Instruction Type:Patient Education Patient Instructions Indication:Elevated liver enzymes Start:05-Oct-2020 Instruction Type:Provider Instructions for Treatment How to Access Health Informa tion Online using Patient Portal and [employer] Apps Start:05-Oct-2020 Instruction Type:Patient Education How to [...] tion Online using Patient Portal and [employer] Apps Indication:Current nonsmoker (Renamed from Current non-smoker) Start:12-Jan-2022 Instruction Type:Patient Education Patient Instructions Indication:Current nonsmoker (Renamed from Current non-smoker) Start:12-Jan-2022 Instruction Type:Provider Instructions for Treatment Patient Instructions Indication:BMI 35.0-35.9,adult Start:11-Aug-2021 Instruction Type:Provider Instructions for Treatment How to Access Health Informa tion Online using Patient Portal and [employer] Apps Indication:Current nonsmoker (Renamed from Current non-smoker) Start:11-Aug-2021 Instruction Type:Patient Education Patient Instructions Indication:Anticoagulated Start:14-Jul-2021 Instruction Type:Provider Instructions for Treatment How to Access Health Informa tion Online using Patient Portal and [employer] Apps Indication:Current nonsmoker (Renamed from Current non-smoker) Start:14-Jul-2021 Instruction Type:Patient Education Patient Instructions Indication:Current nonsmoker (Renamed from Current non-smoker) Start:11-Jun-2021 Instruction Type:Provider Instructions for Treatment How to Access Health Informa tion Online using Patient Portal and [employer] Apps Indication:Current nonsmoker (Renamed from Current non-smoker) Start:11-Jun-2021 Instruction Type:Patient Education Patient Instructions Indication:Current nonsmoker (Renamed from Current non-smoker) Start:09-Feb-2021 Instruction Type:Provider Instructions for Treatment How to Access Health Informa tion Online using Patient Portal and [employer] Apps Indication:Current nonsmoker (Renamed from Current non-smoker) Start:09-Feb-2021 Instruction Type:Patient Education DISCONTINUED - TSH (THYROID STIMULATING HORMONE) (81404) Indication:Hypothyroid Start:05-Oct-2020 Instruction Type:Patient Education DISCONTINUED - METABOLIC SUTTON EL, COMPREHENSIVE (06600) Indication:Elevated liver enzymes Start:05-Oct-2020 Instruction Type:Patient Education DISCONTINUED - LIPID PANEL ( 11665) Indication:Elevated liver enzymes Start:05-Oct-2020 Instruction Type:Patient Education DISCONTINUED - CBC, PLATELET S & AUT DIFF (17986) Indication:Elevated liver enzymes Start:05-Oct-2020 Instruction Type:Patient Education DISCONTINUED - METABOLIC SUTTON EL, COMPREHENSIVE (92374) Indication:Elevated liver enzymes Start:05-Oct-2020 Instruction Type:Patient Education DISCONTINUED - MICROALBUMIN: CREATININE RATIO (49968) AND (18364) Indication:Hypertension Start:05-Oct-2020 Instruction Type:Patient Education DISCONTINUED - TSH (71859) Indication:Hypertension Start:05-Oct-2020 Instruction Type:Patient Education DISCONTINUED - CBC, PLATELET S & AUT DIFF (53207) Indication:Hypertension Start:05-Oct-2020 Instruction Type:Patient Education DISCONTINUED - METABOLIC SUTTON EL, COMPREHENSIVE (56090) Indication:Hypertension Start:05-Oct-2020 Instruction Type:Patient Education DISCONTINUED - METABOLIC SUTTON EL, COMPREHENSIVE (05748) Indication:Hypertension Start:05-Oct-2020 Instruction Type:Patient Education DISCONTINUED - LIPID PANEL ( 25921) Indication:Hypercholesteremia Start:05-Oct-2020 Instruction Type:Patient Education Patient Instructions Indication:Elevated liver enzymes Start:05-Oct-2020 Instruction Type:Provider Instructions for Treatment How to Access Health Informa tion Online using Patient Portal and [employer] Apps Indication:Current nonsmoker (Renamed from Current non-smoker) [...] tion Online using Patient Portal and [employer] Apps Indication:Current nonsmoker (Renamed from Current non-smoker) Start:12-Jan-2022 Instruction Type:Patient Education Patient Instructions Indication:Current nonsmoker (Renamed from Current non-smoker) Start:12-Jan-2022 Instruction Type:Provider Instructions for Treatment Patient Instructions Indication:BMI 35.0-35.9,adult Start:11-Aug-2021 Instruction Type:Provider Instructions for Treatment How to Access Health Informa tion Online using Patient Portal and [employer] Apps Indication:Current nonsmoker (Renamed from Current non-smoker) Start:11-Aug-2021 Instruction Type:Patient Education Patient Instructions Indication:Anticoagulated Start:14-Jul-2021 Instruction Type:Provider Instructions for Treatment How to Access Health Informa tion Online using Patient Portal and [employer] Apps Indication:Current nonsmoker (Renamed from Current non-smoker) Start:14-Jul-2021 Instruction Type:Patient Education Patient Instructions Indication:Current nonsmoker (Renamed from Current non-smoker) Start:11-Jun-2021 Instruction Type:Provider Instructions for Treatment How to Access Health Informa tion Online using Patient Portal and [employer] Apps Indication:Current nonsmoker (Renamed from Current non-smoker) Start:11-Jun-2021 Instruction Type:Patient Education Patient Instructions Indication:Current nonsmoker (Renamed from Current non-smoker) Start:09-Feb-2021 Instruction Type:Provider Instructions for Treatment How to Access Health Informa tion Online using Patient Portal and [employer] Apps Indication:Current nonsmoker (Renamed from Current non-smoker) Start:09-Feb-2021 Instruction Type:Patient Education DISCONTINUED - TSH (THYROID STIMULATING HORMONE) (85716) Indication:Hypothyroid Start:05-Oct-2020 Instruction Type:Patient Education DISCONTINUED - METABOLIC SUTTON EL, COMPREHENSIVE (90643) Indication:Elevated liver enzymes Start:05-Oct-2020 Instruction Type:Patient Education DISCONTINUED - LIPID PANEL ( 16114) Indication:Elevated liver enzymes Start:05-Oct-2020 Instruction Type:Patient Education DISCONTINUED - CBC, PLATELET S & AUT DIFF (34144) Indication:Elevated liver enzymes Start:05-Oct-2020 Instruction Type:Patient Education DISCONTINUED - METABOLIC SUTTON EL, COMPREHENSIVE (92716) Indication:Elevated liver enzymes Start:05-Oct-2020 Instruction Type:Patient Education DISCONTINUED - MICROALBUMIN: CREATININE RATIO (41567) AND (78934) Indication:Hypertension Start:05-Oct-2020 Instruction Type:Patient Education DISCONTINUED - TSH (94478) Indication:Hypertension Start:05-Oct-2020 Instruction Type:Patient Education DISCONTINUED - CBC, PLATELET S & AUT DIFF (79887) Indication:Hypertension Start:05-Oct-2020 Instruction Type:Patient Education DISCONTINUED - METABOLIC SUTTON EL, COMPREHENSIVE (02198) Indication:Hypertension Start:05-Oct-2020 Instruction Type:Patient Education DISCONTINUED - METABOLIC SUTTON EL, COMPREHENSIVE (57375) Indication:Hypertension Start:05-Oct-2020 Instruction Type:Patient Education DISCONTINUED - LIPID PANEL ( 52273) Indication:Hypercholesteremia Start:05-Oct-2020 Instruction Type:Patient Education Patient Instructions Indication:Elevated liver enzymes Start:05-Oct-2020 Instruction Type:Provider Instructions for Treatment How to Access Health Informa tion Online using Patient Portal and [employer] Apps Indication:Current nonsmoker (Renamed from Current non-smoker) [...] tion Online using Patient Portal and [employer] Apps Indication:Current nonsmoker (Renamed from Current non-smoker) Start:15-Apr-2022 Instruction Type:Patient Education How to Access Health Informa tion Online using Patient Portal and [employer] Apps Indication:Current nonsmoker (Renamed from Current non-smoker) Start:12-Jan-2022 Instruction Type:Patient Education Patient Instructions Indication:Current nonsmoker (Renamed from Current non-smoker) Start:12-Jan-2022 Instruction Type:Provider Instructions for Treatment Patient Instructions Indication:BMI 35.0-35.9,adult Start:11-Aug-2021 Instruction Type:Provider Instructions for Treatment How to Access Health Informa tion Online using Patient Portal and [employer] Apps Indication:Current nonsmoker (Renamed from Current non-smoker) Start:11-Aug-2021 Instruction Type:Patient Education Patient Instructions Indication:Anticoagulated Start:14-Jul-2021 Instruction Type:Provider Instructions for Treatment How to Access Health Informa tion Online using Patient Portal and [employer] Apps Indication:Current nonsmoker (Renamed from Current non-smoker) Start:14-Jul-2021 Instruction Type:Patient Education Patient Instructions Indication:Current nonsmoker (Renamed from Current non-smoker) Start:11-Jun-2021 Instruction Type:Provider Instructions for Treatment How to Access Health Informa tion Online using Patient Portal and [employer] Apps Indication:Current nonsmoker (Renamed from Current non-smoker) Start:11-Jun-2021 Instruction Type:Patient Education Patient Instructions Indication:Current nonsmoker (Renamed from Current non-smoker) Start:09-Feb-2021 Instruction Type:Provider Instructions for Treatment How to Access Health Informa tion Online using Patient Portal and [employer] Apps Indication:Current nonsmoker (Renamed from Current non-smoker) Start:09-Feb-2021 Instruction Type:Patient Education DISCONTINUED - TSH (THYROID STIMULATING HORMONE) (26999) Indication:Hypothyroid Start:05-Oct-2020 Instruction Type:Patient Education DISCONTINUED - METABOLIC SUTTON EL, COMPREHENSIVE (20735) Indication:Elevated liver enzymes Start:05-Oct-2020 Instruction Type:Patient Education DISCONTINUED - LIPID PANEL ( 41536) Indication:Elevated liver enzymes Start:05-Oct-2020 Instruction Type:Patient Education DISCONTINUED - CBC, PLATELET S & AUT DIFF (46009) Indication:Elevated liver enzymes Start:05-Oct-2020 Instruction Type:Patient Education DISCONTINUED - METABOLIC SUTTON EL, COMPREHENSIVE (90348) Indication:Elevated liver enzymes Start:05-Oct-2020 Instruction Type:Patient Education DISCONTINUED - MICROALBUMIN: CREATININE RATIO (93655) AND (63944) Indication:Hypertension Start:05-Oct-2020 Instruction Type:Patient Education DISCONTINUED - TSH (10358) Indication:Hypertension Start:05-Oct-2020 Instruction Type:Patient Education DISCONTINUED - CBC, PLATELET S & AUT DIFF (99261) Indication:Hypertension Start:05-Oct-2020 Instruction Type:Patient Education DISCONTINUED - METABOLIC SUTTON EL, COMPREHENSIVE (04410) Indication:Hypertension Start:05-Oct-2020 Instruction Type:Patient Education DISCONTINUED - METABOLIC SUTTON EL, COMPREHENSIVE (76893) Indication:Hypertension Start:05-Oct-2020 Instruction Type:Patient Education DISCONTINUED - LIPID PANEL ( 18884) Indication:Hypercholesteremia Start:05-Oct-2020 Instruction Type:Patient Education Patient Instructions Indication:Elevated liver enzymes Start:05-Oct-2020 Instruction Type:Provider Instructions for Treatment How to Access Health Informa tion Online using Patient Portal and [employer] Apps Indication:Current nonsmoker (Renamed from Current non-smoker) [...] tion Online using Patient Portal and [employer] Apps Indication:Current nonsmoker (Renamed from Current non-smoker) Start:10-May-2022 Instruction Type:Patient Education Patient Instructions Indication:Current nonsmoker (Renamed from Current non-smoker) Start:15-Apr-2022 Instruction Type:Provider Instructions for Treatment How to Access Health Informa tion Online using Patient Portal and [employer] Apps Indication:Current nonsmoker (Renamed from Current non-smoker) Start:15-Apr-2022 Instruction Type:Patient Education How to Access Health Informa tion Online using Patient Portal and [employer] Apps Indication:Current nonsmoker (Renamed from Current non-smoker) Start:12-Jan-2022 Instruction Type:Patient Education Patient Instructions Indication:Current nonsmoker (Renamed from Current non-smoker) Start:12-Jan-2022 Instruction Type:Provider Instructions for Treatment Patient Instructions Indication:BMI 35.0-35.9,adult Start:11-Aug-2021 Instruction Type:Provider Instructions for Treatment How to Access Health Informa tion Online using Patient Portal and [employer] Apps Indication:Current nonsmoker (Renamed from Current non-smoker) Start:11-Aug-2021 Instruction Type:Patient Education Patient Instructions Indication:Anticoagulated Start:14-Jul-2021 Instruction Type:Provider Instructions for Treatment How to Access Health Informa tion Online using Patient Portal and [employer] Apps Indication:Current nonsmoker (Renamed from Current non-smoker) Start:14-Jul-2021 Instruction Type:Patient Education Patient Instructions Indication:Current nonsmoker (Renamed from Current non-smoker) Start:11-Jun-2021 Instruction Type:Provider Instructions for Treatment How to Access Health Informa tion Online using Patient Portal and [employer] Apps Indication:Current nonsmoker (Renamed from Current non-smoker) Start:11-Jun-2021 Instruction Type:Patient Education Patient Instructions Indication:Current nonsmoker (Renamed from Current non-smoker) Start:09-Feb-2021 Instruction Type:Provider Instructions for Treatment How to Access Health Informa tion Online using Patient Portal and [employer] Apps Indication:Current nonsmoker (Renamed from Current non-smoker) Start:09-Feb-2021 Instruction Type:Patient Education DISCONTINUED - TSH (THYROID STIMULATING HORMONE) (37006) Indication:Hypothyroid Start:05-Oct-2020 Instruction Type:Patient Education DISCONTINUED - METABOLIC SUTTON EL, COMPREHENSIVE (48123) Indication:Elevated liver enzymes Start:05-Oct-2020 Instruction Type:Patient Education DISCONTINUED - LIPID PANEL ( [id number]) Indication:Elevated liver enzymes Start:05-Oct-2020 Instruction Type:Patient Education DISCONTINUED - CBC, PLATELET S & AUT DIFF (04484) Indication:Elevated liver enzymes Start:05-Oct-2020 Instruction Type:Patient Education DISCONTINUED - METABOLIC SUTTON EL, COMPREHENSIVE (09784) Indication:Elevated liver enzymes Start:05-Oct-2020 Instruction Type:Patient Education DISCONTINUED - MICROALBUMIN: CREATININE RATIO (77683) AND (20614) Indication:Hypertension Start:05-Oct-2020 Instruction Type:Patient Education DISCONTINUED - TSH (59448) Indication:Hypertension Start:05-Oct-2020 Instruction Type:Patient Education DISCONTINUED - CBC, PLATELET S & AUT DIFF (64096) Indication:Hypertension Start:05-Oct-2020 Instruction Type:Patient Education DISCONTINUED - METABOLIC SUTTON EL, COMPREHENSIVE (26021) Indication:Hypertension Start:05-Oct-2020 Instruction Type:Patient Education DISCONTINUED - METABOLIC SUTTON EL, COMPREHENSIVE (20892) Indication:Hypertension Start:05-Oct-2020 Instruction Type:Patient Education DISCONTINUED - LIPID PANEL ( 34666) Indication:Hypercholesteremia Start:05-Oct-2020 Instruction Type:Patient Education Patient Instructions Indication:Elevated liver enzymes Start:05-Oct-2020 Instruction Type:Provider Instructions for Treatment How to Access Health Informa tion Online using Patient Portal and [employer] Indication:Current nonsmoker (Renamed from Current non-smoker) [...] Informa tion Online using Patient Portal and [employer] Indication:Current nonsmoker (Renamed from Current non-smoker) Start:10-May-2022 Instruction Type:Patient Education Patient Instructions Indication:Current nonsmoker (Renamed from Current non-smoker) Start:15-Apr-2022 Instruction Type:Provider Instructions for Treatment How to Access Health Informa tion Online using Patient Portal and [employer] Indication:Current nonsmoker (Renamed from Current non-smoker) Start:15-Apr-2022 Instruction Type:Patient Education How to Access Health Informa tion Online using Patient Portal and [employer] Apps Indication:Current nonsmoker (Renamed from Current non-smoker) Start:12-Jan-2022 Instruction Type:Patient Education Patient Instructions Indication:Current nonsmoker (Renamed from Current non-smoker) Start:12-Jan-2022 Instruction Type:Provider Instructions for Treatment Patient Instructions Indication:BMI 35.0-35.9,adult Start:11-Aug-2021 Instruction Type:Provider Instructions for Treatment How to Access Health Informa tion Online using Patient Portal and [employer] Indication:Current nonsmoker (Renamed from Current non-smoker) Start:11-Aug-2021 Instruction Type:Patient Education Patient Instructions Indication:Anticoagulated Start:14-Jul-2021 Instruction Type:Provider Instructions for Treatment How to Access Health Informa tion Online using Patient Portal and [employer] Indication:Current nonsmoker (Renamed from Current non-smoker) Start:14-Jul-2021 Instruction Type:Patient Education Patient Instructions Indication:Current nonsmoker (Renamed from Current non-smoker) Start:11-Jun-2021 Instruction Type:Provider Instructions for Treatment How to Access Health Informa tion Online using Patient Portal and [employer] Apps Indication:Current nonsmoker (Renamed from Current non-smoker) Start:11-Jun-2021 Instruction Type:Patient Education Patient Instructions Indication:Current nonsmoker (Renamed from Current non-smoker) Start:09-Feb-2021 Instruction Type:Provider Instructions for Treatment How to Access Health Informa tion Online using Patient Portal and [employer] Apps Indication:Current nonsmoker (Renamed from Current non-smoker) Start:09-Feb-2021 Instruction Type:Patient Education DISCONTINUED - TSH (THYROID STIMULATING HORMONE) (63813) Indication:Hypothyroid Start:05-Oct-2020 Instruction Type:Patient Education DISCONTINUED - METABOLIC SUTTON EL, COMPREHENSIVE (30040) Indication:Elevated liver enzymes Start:05-Oct-2020 Instruction Type:Patient Education DISCONTINUED - LIPID PANEL ( 78175) Indication:Elevated liver enzymes Start:05-Oct-2020 Instruction Type:Patient Education DISCONTINUED - CBC, PLATELET S & AUT DIFF (01635) Indication:Elevated liver enzymes Start:05-Oct-2020 Instruction Type:Patient Education DISCONTINUED - METABOLIC SUTTON EL, COMPREHENSIVE (44618) Indication:Elevated liver enzymes Start:05-Oct-2020 Instruction Type:Patient Education DISCONTINUED - MICROALBUMIN: CREATININE RATIO (98054) AND (99908) Indication:Hypertension Start:05-Oct-2020 Instruction Type:Patient Education DISCONTINUED - TSH (58264) Indication:Hypertension Start:05-Oct-2020 Instruction Type:Patient Education DISCONTINUED - CBC, PLATELET S & AUT DIFF (21808) Indication:Hypertension Start:05-Oct-2020 Instruction Type:Patient Education DISCONTINUED - METABOLIC SUTTON EL, COMPREHENSIVE (75870) Indication:Hypertension Start:05-Oct-2020 Instruction Type:Patient Education DISCONTINUED - METABOLIC SUTTON EL, COMPREHENSIVE (29424) Indication:Hypertension Start:05-Oct-2020 Instruction Type:Patient Education DISCONTINUED - LIPID PANEL ( 75637) Indication:Hypercholesteremia Start:05-Oct-2020 Instruction Type:Patient Education Patient Instructions Indication:Elevated liver enzymes Start:05-Oct-2020 Instruction Type:Provider Instructions for Treatment How to Access Health Informa tion Online using Patient Portal and [employer] Apps Indication:Current nonsmoker (Renamed from Current non-smoker) [...] Informa tion Online using Patient Portal and [employer] Apps Indication:Current nonsmoker (Renamed from Current non-smoker) Start:10-May-2022 Instruction Type:Patient Education Patient Instructions Indication:Current nonsmoker (Renamed from Current non-smoker) Start:15-Apr-2022 Instruction Type:Provider Instructions for Treatment How to Access Health Informa tion Online using Patient Portal and [employer] Apps Indication:Current nonsmoker (Renamed from Current non-smoker) Start:15-Apr-2022 Instruction Type:Patient Education How to Access Health Informa tion Online using Patient Portal and [employer] Apps Indication:Current nonsmoker (Renamed from Current non-smoker) Start:12-Jan-2022 Instruction Type:Patient Education Patient Instructions Indication:Current nonsmoker (Renamed from Current non-smoker) Start:12-Jan-2022 Instruction Type:Provider Instructions for Treatment Patient Instructions Indication:BMI 35.0-35.9,adult Start:11-Aug-2021 Instruction Type:Provider Instructions for Treatment How to Access Health Informa tion Online using Patient Portal and [employer] Apps Indication:Current nonsmoker (Renamed from Current non-smoker) Start:11-Aug-2021 Instruction Type:Patient Education Patient Instructions Indication:Anticoagulated Start:14-Jul-2021 Instruction Type:Provider Instructions for Treatment How to Access Health Informa tion Online using Patient Portal and [employer] Indication:Current nonsmoker (Renamed from Current non-smoker) Start:14-Jul-2021 Instruction Type:Patient Education Patient Instructions Indication:Current nonsmoker (Renamed from Current non-smoker) Start:11-Jun-2021 Instruction Type:Provider Instructions for Treatment How to Access Health Informa tion Online using Patient Portal and [employer] Apps Indication:Current nonsmoker (Renamed from Current non-smoker) Start:11-Jun-2021 Instruction Type:Patient Education Patient Instructions Indication:Current nonsmoker (Renamed from Current non-smoker) Start:09-Feb-2021 Instruction Type:Provider Instructions for Treatment How to Access Health Informa tion Online using Patient Portal and [employer] Indication:Current nonsmoker (Renamed from Current non-smoker) Start:09-Feb-2021 Instruction Type:Patient Education DISCONTINUED - TSH (THYROID STIMULATING HORMONE) (35084) Indication:Hypothyroid Start:05-Oct-2020 Instruction Type:Patient Education DISCONTINUED - METABOLIC SUTTON EL, COMPREHENSIVE (28643) Indication:Elevated liver enzymes Start:05-Oct-2020 Instruction Type:Patient Education DISCONTINUED - LIPID PANEL ( 24335) Indication:Elevated liver enzymes Start:05-Oct-2020 Instruction Type:Patient Education DISCONTINUED - CBC, PLATELET S & AUT DIFF (35634) Indication:Elevated liver enzymes Start:05-Oct-2020 Instruction Type:Patient Education DISCONTINUED - METABOLIC SUTTON EL, COMPREHENSIVE (14701) Indication:Elevated liver enzymes Start:05-Oct-2020 Instruction Type:Patient Education DISCONTINUED - MICROALBUMIN: CREATININE RATIO (22593) AND (38549) Indication:Hypertension Start:05-Oct-2020 Instruction Type:Patient Education DISCONTINUED - TSH (97637) Indication:Hypertension Start:05-Oct-2020 Instruction Type:Patient Education DISCONTINUED - CBC, PLATELET S & AUT DIFF (37536) Indication:Hypertension Start:05-Oct-2020 Instruction Type:Patient Education DISCONTINUED - METABOLIC SUTTON EL, COMPREHENSIVE (57288) Indication:Hypertension Start:05-Oct-2020 Instruction Type:Patient Education DISCONTINUED - METABOLIC SUTTON EL, COMPREHENSIVE (91909) Indication:Hypertension Start:05-Oct-2020 Instruction Type:Patient Education DISCONTINUED - LIPID PANEL ( 56720) Indication:Hypercholesteremia Start:05-Oct-2020 Instruction Type:Patient Education Patient Instructions Indication:Elevated liver enzymes Start:05-Oct-2020 Instruction Type:Provider Instructions for Treatment How to Access Health Informa tion Online using Patient Portal and [employer] Apps Indication:Current nonsmoker (Renamed from Current non-smoker) [...] Informa tion Online using Patient Portal and [employer] Apps Indication:Current nonsmoker (Renamed from Current non-smoker) Start:29-Jul-2022 Instruction Type:Patient Education Patient Instructions Indication:Current nonsmoker (Renamed from Current non-smoker) Start:10-May-2022 Instruction Type:Provider Instructions for Treatment How to Access Health Informa tion Online using Patient Portal and [employer] Apps Indication:Current nonsmoker (Renamed from Current non-smoker) Start:10-May-2022 Instruction Type:Patient Education Patient Instructions Indication:Current nonsmoker (Renamed from Current non-smoker) Start:15-Apr-2022 Instruction Type:Provider Instructions for Treatment How to Access Health Informa tion Online using Patient Portal and [employer] Apps Indication:Current nonsmoker (Renamed from Current non-smoker) Start:15-Apr-2022 Instruction Type:Patient Education How to Access Health Informa tion Online using Patient Portal and [employer] Apps Indication:Current nonsmoker (Renamed from Current non-smoker) Start:12-Jan-2022 Instruction Type:Patient Education Patient Instructions Indication:Current nonsmoker (Renamed from Current non-smoker) Start:12-Jan-2022 Instruction Type:Provider Instructions for Treatment Patient Instructions Indication:BMI 35.0-35.9,adult Start:11-Aug-2021 Instruction Type:Provider Instructions for Treatment How to Access Health Informa tion Online using Patient Portal and [employer] Apps Indication:Current nonsmoker (Renamed from Current non-smoker) Start:11-Aug-2021 Instruction Type:Patient Education Patient Instructions Indication:Anticoagulated Start:14-Jul-2021 Instruction Type:Provider Instructions for Treatment How to Access Health Informa tion Online using Patient Portal and [employer] Apps Indication:Current nonsmoker (Renamed from Current non-smoker) Start:14-Jul-2021 Instruction Type:Patient Education Patient Instructions Indication:Current nonsmoker (Renamed from Current non-smoker) Start:11-Jun-2021 Instruction Type:Provider Instructions for Treatment How to Access Health Informa tion Online using Patient Portal and [employer] Apps Indication:Current nonsmoker (Renamed from Current non-smoker) Start:11-Jun-2021 Instruction Type:Patient Education Patient Instructions Indication:Current nonsmoker (Renamed from Current non-smoker) Start:09-Feb-2021 Instruction Type:Provider Instructions for Treatment How to Access Health Informa tion Online using Patient Portal and [employer] Apps Indication:Current nonsmoker (Renamed from Current non-smoker) Start:09-Feb-2021 Instruction Type:Patient Education DISCONTINUED - TSH (THYROID STIMULATING HORMONE) (67171) Indication:Hypothyroid Start:05-Oct-2020 Instruction Type:Patient Education DISCONTINUED - METABOLIC SUTTON EL, COMPREHENSIVE (49854) Indication:Elevated liver enzymes Start:05-Oct-2020 Instruction Type:Patient Education DISCONTINUED - LIPID PANEL ( 12409) Indication:Elevated liver enzymes Start:05-Oct-2020 Instruction Type:Patient Education DISCONTINUED - CBC, PLATELET S & AUT DIFF (07618) Indication:Elevated liver enzymes Start:05-Oct-2020 Instruction Type:Patient Education DISCONTINUED - METABOLIC SUTTON EL, COMPREHENSIVE (66861) Indication:Elevated liver enzymes Start:05-Oct-2020 Instruction Type:Patient Education DISCONTINUED - MICROALBUMIN: CREATININE RATIO (45667) AND (66531) Indication:Hypertension Start:05-Oct-2020 Instruction Type:Patient Education DISCONTINUED - TSH (19430) Indication:Hypertension Start:05-Oct-2020 Instruction Type:Patient Education DISCONTINUED - CBC, PLATELET S & AUT DIFF (09676) Indication:Hypertension Start:05-Oct-2020 Instruction Type:Patient Education DISCONTINUED - METABOLIC SUTTON EL, COMPREHENSIVE (72320) Indication:Hypertension Start:05-Oct-2020 Instruction Type:Patient Education DISCONTINUED - METABOLIC SUTTON EL, COMPREHENSIVE (88219) Indication:Hypertension Start:05-Oct-2020 Instruction Type:Patient Education DISCONTINUED - LIPID PANEL ( 25833) Indication:Hypercholesteremia Start:05-Oct-2020 Instruction Type:Patient Education Patient Instructions Indication:Elevated liver enzymes Start:05-Oct-2020 Instruction Type:Provider Instructions for Treatment How to Access Health Informa tion Online using Patient Portal and [employer] Apps Indication:Current nonsmoker (Renamed from Current non-smoker) [...] Informa tion Online using Patient Portal and [employer] Apps Indication:Current nonsmoker (Renamed from Current non-smoker) Start:29-Jul-2022 Instruction Type:Patient Education Patient Instructions Indication:Current nonsmoker (Renamed from Current non-smoker) Start:10-May-2022 Instruction Type:Provider Instructions for Treatment How to Access Health Informa tion Online using Patient Portal and [employer] Apps Indication:Current nonsmoker (Renamed from Current non-smoker) Start:10-May-2022 Instruction Type:Patient Education Patient Instructions Indication:Current nonsmoker (Renamed from Current non-smoker) Start:15-Apr-2022 Instruction Type:Provider Instructions for Treatment How to Access Health Informa tion Online using Patient Portal and [employer] Apps Indication:Current nonsmoker (Renamed from Current non-smoker) Start:15-Apr-2022 Instruction Type:Patient Education How to Access Health Informa tion Online using Patient Portal and [employer] Apps Indication:Current nonsmoker (Renamed from Current non-smoker) Start:12-Jan-2022 Instruction Type:Patient Education Patient Instructions Indication:Current nonsmoker (Renamed from Current non-smoker) Start:12-Jan-2022 Instruction Type:Provider Instructions for Treatment Patient Instructions Indication:BMI 35.0-35.9,adult Start:11-Aug-2021 Instruction Type:Provider Instructions for Treatment How to Access Health Informa tion Online using Patient Portal and [employer] Apps Indication:Current nonsmoker (Renamed from Current non-smoker) Start:11-Aug-2021 Instruction Type:Patient Education Patient Instructions Indication:Anticoagulated Start:14-Jul-2021 Instruction Type:Provider Instructions for Treatment How to Access Health Informa tion Online using Patient Portal and [employer] Apps Indication:Current nonsmoker (Renamed from Current non-smoker) Start:14-Jul-2021 Instruction Type:Patient Education Patient Instructions Indication:Current nonsmoker (Renamed from Current non-smoker) Start:11-Jun-2021 Instruction Type:Provider Instructions for Treatment How to Access Health Informa tion Online using Patient Portal and [employer] Apps Indication:Current nonsmoker (Renamed from Current non-smoker) Start:11-Jun-2021 Instruction Type:Patient Education Patient Instructions Indication:Current nonsmoker (Renamed from Current non-smoker) Start:09-Feb-2021 Instruction Type:Provider Instructions for Treatment How to Access Health Informa tion Online using Patient Portal and [employer] Apps Indication:Current nonsmoker (Renamed from Current non-smoker) Start:09-Feb-2021 Instruction Type:Patient Education DISCONTINUED - TSH (THYROID STIMULATING HORMONE) (05712) Indication:Hypothyroid Start:05-Oct-2020 Instruction Type:Patient Education DISCONTINUED - METABOLIC SUTTON EL, COMPREHENSIVE (18956) Indication:Elevated liver enzymes Start:05-Oct-2020 Instruction Type:Patient Education DISCONTINUED - LIPID PANEL ( 68827) Indication:Elevated liver enzymes Start:05-Oct-2020 Instruction Type:Patient Education DISCONTINUED - CBC, PLATELET S & AUT DIFF (29274) Indication:Elevated liver enzymes Start:05-Oct-2020 Instruction Type:Patient Education DISCONTINUED - METABOLIC SUTTON EL, COMPREHENSIVE (82317) Indication:Elevated liver enzymes Start:05-Oct-2020 Instruction Type:Patient Education DISCONTINUED - MICROALBUMIN: CREATININE RATIO (28192) AND (86044) Indication:Hypertension Start:05-Oct-2020 Instruction Type:Patient Education DISCONTINUED - TSH (79262) Indication:Hypertension Start:05-Oct-2020 Instruction Type:Patient Education DISCONTINUED - CBC, PLATELET S & AUT DIFF (58760) Indication:Hypertension Start:05-Oct-2020 Instruction Type:Patient Education DISCONTINUED - METABOLIC SUTTON EL, COMPREHENSIVE (73155) Indication:Hypertension Start:05-Oct-2020 Instruction Type:Patient Education DISCONTINUED - METABOLIC SUTTON EL, COMPREHENSIVE (58767) Indication:Hypertension Start:05-Oct-2020 Instruction Type:Patient Education DISCONTINUED - LIPID PANEL ( 19772) Indication:Hypercholesteremia Start:05-Oct-2020 Instruction Type:Patient Education Patient Instructions Indication:Elevated liver enzymes Start:05-Oct-2020 Instruction Type:Provider Instructions for Treatment How to Access Health Informa tion Online using Patient Portal and [employer] Apps Indication:Current nonsmoker (Renamed from Current non-smoker) [...] Informa tion Online using Patient Portal and [employer] Indication:BMI 34.0-34.9,adult Start:30-Nov-2022 Instruction Type:Patient Education Patient Instructions Indication:BMI 34.0-34.9,adult Start:30-Nov-2022 Instruction Type:Provider Instructions for Treatment Patient Instructions Indication:Current nonsmoker (Renamed from Current non-smoker) Start:29-Jul-2022 Instruction Type:Provider Instructions for Treatment How to Access Health Informa tion Online using Patient Portal and [employer] Indication:Current nonsmoker (Renamed from Current non-smoker) Start:29-Jul-2022 Instruction Type:Patient Education Patient Instructions Indication:Current nonsmoker (Renamed from Current non-smoker) Start:10-May-2022 Instruction Type:Provider Instructions for Treatment How to Access Health Informa tion Online using Patient Portal and [employer] Apps Indication:Current nonsmoker (Renamed from Current non-smoker) Start:10-May-2022 Instruction Type:Patient Education Patient Instructions Indication:Current nonsmoker (Renamed from Current non-smoker) Start:15-Apr-2022 Instruction Type:Provider Instructions for Treatment How to Access Health Informa tion Online using Patient Portal and [employer] Apps Indication:Current nonsmoker (Renamed from Current non-smoker) Start:15-Apr-2022 Instruction Type:Patient Education How to Access Health Informa tion Online using Patient Portal and [employer] Apps Indication:Current nonsmoker (Renamed from Current non-smoker) Start:12-Jan-2022 Instruction Type:Patient Education Patient Instructions Indication:Current nonsmoker (Renamed from Current non-smoker) Start:12-Jan-2022 Instruction Type:Provider Instructions for Treatment Patient Instructions Indication:BMI 35.0-35.9,adult Start:11-Aug-2021 Instruction Type:Provider Instructions for Treatment How to Access Health Informa tion Online using Patient Portal and [employer] Indication:Current nonsmoker (Renamed from Current non-smoker) Start:11-Aug-2021 Instruction Type:Patient Education Patient Instructions Indication:Anticoagulated Start:14-Jul-2021 Instruction Type:Provider Instructions for Treatment How to Access Health Informa tion Online using Patient Portal and [employer] Apps Indication:Current nonsmoker (Renamed from Current non-smoker) Start:14-Jul-2021 Instruction Type:Patient Education Patient Instructions Indication:Current nonsmoker (Renamed from Current non-smoker) Start:11-Jun-2021 Instruction Type:Provider Instructions for Treatment How to Access Health Informa tion Online using Patient Portal and [employer] Apps Indication:Current nonsmoker (Renamed from Current non-smoker) Start:11-Jun-2021 Instruction Type:Patient Education Patient Instructions Indication:Current nonsmoker (Renamed from Current non-smoker) Start:09-Feb-2021 Instruction Type:Provider Instructions for Treatment How to Access Health Informa tion Online using Patient Portal and [employer] Apps Indication:Current nonsmoker (Renamed from Current non-smoker) Start:09-Feb-2021 Instruction Type:Patient Education DISCONTINUED - TSH (THYROID STIMULATING HORMONE) (18596) Indication:Hypothyroid Start:05-Oct-2020 Instruction Type:Patient Education DISCONTINUED - METABOLIC SUTTON EL, COMPREHENSIVE (84265) Indication:Elevated liver enzymes Start:05-Oct-2020 Instruction Type:Patient Education DISCONTINUED - LIPID PANEL ( 10486) Indication:Elevated liver enzymes Start:05-Oct-2020 Instruction Type:Patient Education DISCONTINUED - CBC, PLATELET S & AUT DIFF (50954) Indication:Elevated liver enzymes Start:05-Oct-2020 Instruction Type:Patient Education DISCONTINUED - METABOLIC SUTTON EL, COMPREHENSIVE (06466) Indication:Elevated liver enzymes Start:05-Oct-2020 Instruction Type:Patient Education DISCONTINUED - MICROALBUMIN: CREATININE RATIO (71184) AND (87569) Indication:Hypertension Start:05-Oct-2020 Instruction Type:Patient Education DISCONTINUED - TSH (75543) Indication:Hypertension Start:05-Oct-2020 Instruction Type:Patient Education DISCONTINUED - CBC, PLATELET S & AUT DIFF (47692) Indication:Hypertension Start:05-Oct-2020 Instruction Type:Patient Education DISCONTINUED - METABOLIC SUTTON EL, COMPREHENSIVE (75109) Indication:Hypertension Start:05-Oct-2020 Instruction Type:Patient Education DISCONTINUED - METABOLIC SUTTON EL, COMPREHENSIVE (30751) Indication:Hypertension Start:05-Oct-2020 Instruction Type:Patient Education DISCONTINUED - LIPID PANEL ( 15417) Indication:Hypercholesteremia Start:05-Oct-2020 Instruction Type:Patient Education Patient Instructions Indication:Elevated liver enzymes Start:05-Oct-2020 Instruction Type:Provider Instructions for Treatment How to Access Health Informa tion Online using Patient Portal and [employer] Apps Indication:Current nonsmoker (Renamed from Current non-smoker) [...] note No data available for this section [facility] Progress note Author Peyton Rucker [facility] Note Date/Time April 09, 2025 10 :43am [facility] [address] [place] [address] OFFICE VISIT Date of Service: 04/09/25 MR#: [id number] Acct: [id number] Name: NIYA MCKEON Rep #: [id number] : 1955 Provider: Dr. John Rucker MD Age/Sex: 69/M [place] [facility] Status: Signed HPI HPI History of Present Illness Details: Niya has history of paroxysmal atrial fibrillation and hypertension. He is here for follow-up visit. He lost a grandchild earlier this year and had been having difficulty with coping with the loss. According to him, he has since been adjusting slowly. Heart ojeda, he denies any complaints. No chest pains. No shortness of breath. No palpitations. No orthopnea or PND. No ankle edema. Holter monitoring done in February of this year showed sinus rhythm. He continueson flecainide. Intake Vital Signs 11/06/24 08:26 04/09/25 10:20 Height 6 ft 1.5 in 6 ft 1.5 in Weight: 268 lb BMI 34.9 BP 112/74 Blood Pressure Location Lt brachial Position Sitting Respiration 16 Pulse 67 Pulse Source Monitor Intake Visit Reasons: 6 M Compensation Supervisor Required: No Accompanied by: Is patient in pain?: No Allergies atorvastatin Adverse Reaction (Severe, Verified 04/09/25 10:21) elevated liver enzymes ibuprofen Adverse Reaction (Intermediate, Verified 04/09/25 10:21) itchiness Medications ?Medication ?Instructions ?Recorded ?Confirmed ?Type omeprazole 20 mg capsule,delayed 20 mg PO DAILY 04/09/25 History release cholecalciferol (vitamin D3) 50 50 mcg PO DAILY 04/09/25 History mcg (2,000 unit) tablet levothyroxine 125 mcg capsule See Rx Instructions PO D AILY 03/16/22 04/09/25 History rivaroxaban 20 mg tablet (Xarelto) 20 mg PO DAILY #90 tabs 01/04/24 04/09/25 Rx flecainide 100 mg tablet 100 mg PO Q12H #180 tabs 04/09/25 Rx losartan 25 mg tablet 25 mg PO DAILY #90 tabs 01/0804/09/25 Rx metoprolol succinate 25 mg 25 mg PO DAILY #90 tabs 04/09/25 Rx tablet,extended release 24 hr Ejection fraction %: 65 Have you fallen in the past year?: No PFSH Medical History Paroxysmal atrial fibrillation Hypertension Obesity (BMI 35.0-39.9 without comorbidity) Acute bronchitis, unspecified Cough Preoperative cardiovascular examination Thyroid disease Snoring Daytime somnolence Nonischemic cardiomyopathy Atherosclerotic heart disease of [place] coronary artery without angina pectoris Chest pain Atrial enlargement, right GERD (gastroesophageal reflux disease) Atrial fibrillation Surgical History Total knee replacement status History of cardioversion (03/02/18) History of left heart catheterization (02/02/18) H/O lateral meniscus repair of left knee (~2004) Family History Mother Hypertension Cancer lung and ovarian Father Cancer Prostate Social History Smoking Status: Never smoker alcohol intake: never substance use type: does not use caffeine: Yes Type: coffee ROS Const Const: Negative for fatigue or weakness Eyes Eyes: Negative for change in vision ENT ENT: Negative for dizziness or balance problems Cardio Chest Pain: No Palpitations: Yes (none for last 2 weeks, some prior to that) Edema: None Resp Respiratory: Negative for SOB with activity, SOB at rest or SOB orthopnea\SOB lying down GI GI: Negative nausea or heartburn Musc Musc: Negative for balance problems Neuro Neuro: Negative for dizziness, lightheadedness, near syncope, syncope or weakness Endo Endo: Negative for fatigue [...] Edema: None: Bilateral Supplemental Info Supplemental Information Labs: LDL Cholesterol, (0-130) 101 mg/dL HDL Cholesterol, (40-) 41 mg/dL Cholesterol, (<=200) 160 mg/dL Triglycerides, (-199) 58 mg/dL Diagnostics: Electrocardiogram Echocardiogram Stress Echocardiogram Cardiac Catheterization Chest X-Ray Venous Doppler Study Pulmonary: Pulmonary Function Test Past Visits: Cardiology Visit Today Assessment and Plan Assessment and Plan (1) Paroxysmal atrial fibrillation: Status: Chronic Plan: Patient previously had a consult with electrophysiology for consideration for A- fib ablation. They recommended continuing flecainide. Continue rivaroxaban. (2) Encounter for monitoring flecainide therapy: Status: Chronic Plan: Maintaining normal sinus rhythm. QTc within normal limits. (3) Hypertension: Status: Chronic Plan: Metoprolol, losartan. (4) Atherosclerotic heart disease of [place] coronary artery without angina pectoris: Status: Chronic Qualifiers: [place] vs. transplanted heart: [place] heart Qualified Code(s): I25.10 -Atherosclerotic heart disease of [place] coronary artery without angina pectoris Comment: Nonobstructive coronary arteries (<30% stenosis in LAD, CX, and RCA: left main normal) per [facility] 02/02/[address] Chino @ [facility] Plan: Risk factor modification. Patient not interested in any cholesterol lowering medications. (5) Obesity (BMI 35.0-39.9 without comorbidity): Status: Chronic Plan: Lose weight. Plan Details Follow Up: 6 Months Coding Level of Care Code Off vis,est,level 4 Diagnoses Paroxysmal atrial fibrillation I48.0 Encounter for monitoring flecainide therapy Z51.81; Z79.899 Hypertension I10 Atherosclerosis of [place] coronary artery of [place] heart without angina pectoris I25.10 [place] vs. transplanted heart: [place] heart Obesity (BMI 35.0-39.9 without comorbidity) E66.9 Coding Level of Care Code Off vis,est,level 4 Diagnoses Paroxysmal atrial fibrillation I48.0 Encounter for monitoring flecainide therapy Z51.81; Z79.899 Hypertension I10 Atherosclerosis of [place] coronary artery of [place] heart without angina pectoris I25.10 [place] vs. transplanted heart: [place] heart Obesity (BMI 35.0-39.9 without comorbidity) E66.9 Clinical Quality Measures Falls Risk Screening/Assistive Devices Have you fallen in the past year?: No Cardiac Ejection fraction %: 65 04/09/25 1044 <Electronically signed by Peyton Rucker MD> Date _ Peyton Flor Signature: Date (if applicable) CC: LOAN ADVISERKatja Nichols ~ [facility] Work Phone: Reason for referral (narrative)No reason for referral information availableOhio[facility] Work Phone: Summary Purpose Family History No [...] Records Found Name Dates Details Immunization Registry [place] - Effective on 04/15/2022. Expiration date unspecified Effective:15-Apr-2022 Name Dates Details Immunization Registry [place] - Effective on 04/15/2022. Expiration date unspecified Effective:15-Apr-2022 Name Dates Details Immunization Registry [place] - Effective on 04/15/2022. Expiration date unspecified Effective:15-Apr-2022 Advance Directive Response Recorded Date/ Time Advance Directives Yes March 02, 2018 10:23am Living Will No June 11 8:13pm Power of Enrobing Machine Feeder No June 11, 2022 8:13pm Name Dates Details Immunization Registry [place] - Effective on 04/15/2022. Expiration date unspecified Effective:15-Apr-2022 Name Dates Details Immunization Registry [place] - Effective on 04/15/2022. Expiration date unspecified Effective:15-Apr-2022 Name Dates Details Immunization Registry [place] - Effective on 04/15/2022. Expiration date unspecified Effective:15-Apr-2022 Name Dates Details Immunization Registry [place] - Effective on 04/15/2022. Expiration date unspecified [...] Details DISCONTINUED - TSH (THYROID STIMULATING HORMONE) (56698) Indication:Hypothyroid Start:05-Oct-2020 Instruction Type:Patient Education DISCONTINUED - METABOLIC SUTTON EL, COMPREHENSIVE (04268) Indication:Elevated liver enzymes Start:05-Oct-2020 Instruction Type:Patient Education DISCONTINUED - LIPID PANEL ( 43013) Indication:Elevated liver enzymes Start:05-Oct-2020 Instruction Type:Patient Education DISCONTINUED - CBC, PLATELET S & AUT DIFF (01290) Indication:Elevated liver enzymes Start:05-Oct-2020 Instruction Type:Patient Education DISCONTINUED - MICROALBUMIN: CREATININE RATIO (30514) AND (30731) Indication:Hypertension Start:05-Oct-2020 Instruction Type:Patient Education DISCONTINUED - TSH (26442) Indication:Hypertension Start:05-Oct-2020 Instruction Type:Patient Education DISCONTINUED - CBC, PLATELET S & AUT DIFF (12512) Indication:Hypertension Start:05-Oct-2020 Instruction Type:Patient Education DISCONTINUED - METABOLIC SUTTON EL, COMPREHENSIVE (90011) Indication:Hypertension Start:05-Oct-2020 Instruction Type:Patient Education DISCONTINUED - LIPID PANEL ( 93153) Indication:Hypercholesteremia Start:05-Oct-2020 Instruction Type:Patient Education Patient Instructions Indication:Current nonsmoker (Renamed from Current non-smoker) Start:05-Oct-2020 Instruction Type:Provider Instructions for Treatment How to Access Health Informa tion Online using Patient Portal and 3rd [employer] Party Apps Indication:Current nonsmoker (Renamed from Current non-smoker) [...] Details DISCONTINUED - TSH (THYROID STIMULATING HORMONE) (73993) Indication:Hypothyroid Start:05-Oct-2020 Instruction Type:Patient Education DISCONTINUED - METABOLIC SUTTON EL, COMPREHENSIVE (57575) Indication:Elevated liver enzymes Start:05-Oct-2020 Instruction Type:Patient Education DISCONTINUED - LIPID PANEL ( 33548) Indication:Elevated liver enzymes Start:05-Oct-2020 Instruction Type:Patient Education DISCONTINUED - CBC, PLATELET S & AUT DIFF (77158) Indication:Elevated liver enzymes Start:05-Oct-2020 Instruction Type:Patient Education DISCONTINUED - MICROALBUMIN: CREATININE RATIO (08509) AND (69193) Indication:Hypertension Start:05-Oct-2020 Instruction Type:Patient Education DISCONTINUED - TSH (25064) Indication:Hypertension Start:05-Oct-2020 Instruction Type:Patient Education DISCONTINUED - CBC, PLATELET S & AUT DIFF (69573) Indication:Hypertension Start:05-Oct-2020 Instruction Type:Patient Education DISCONTINUED - METABOLIC SUTTON EL, COMPREHENSIVE (35775) Indication:Hypertension Start:05-Oct-2020 Instruction Type:Patient Education DISCONTINUED - LIPID PANEL ( 27263) Indication:Hypercholesteremia Start:05-Oct-2020 Instruction Type:Patient Education Patient Instructions Indication:Elevated liver enzymes Start:05-Oct-2020 Instruction Type:Provider Instructions for Treatment How to Access Health Informa tion Online using Patient Portal and [employer] Party Apps Indication:Current nonsmoker (Renamed from Current non-smoker) [...] cardiov ascular examination Atherosclerotic heart disease of [place] coronary artery without angina pectoris Atrial fibrillation Nonischemic cardiomyopathy Chief Complaint 6 M FU right knee pain ORDER FROM DR RUIZ Reason for Visit Preoperative cardiov ascular examination Atherosclerotic heart disease of [place] coronary artery without angina pectoris Atrial fibrillation Nonischemic cardiomyopathy Chief Complaint Admit Date 6 M FU November 06, 2024 10: 39am E-ORDER/ NEED ORDER November 06, 2024 12: 06pm Reason for Visit Admit Date 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 angina pectoris November 06, [...] on flecainide, PAF A ugust 2024 7:45am Chief Complaint Admit Date PALP January 17, 2025 8:26 am skipped beats while on flecainide, PAF A ugust 2024 7:45am skipped beats while on flecainide, PAF A ugust 2024 8:06am 6 M FU April 09, 2025 10 :09am Reason for Visit Admit Date 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 angina pectoris April 09, 2025 10:09am Encounter for monitoring flecainide ther apy April 09, 2025 10:09am Hypertension April 09, 2025 10 :09am Obesity (BMI 35.0-39.9 without comorbidi ty) April 09, 2025 10:09am Paroxysmal atrial fibrillation April 092024 10:09am Additional Source Comments (unrecognized sect ion and content) No Status Records FoundNo Status Records FoundNo Status Records FoundNo Status Records FoundNo Status Records Found INFORMATION SOURCE (unrecogn ized section and content) DATE CREATED AUTHOR 01/01/2018 [facility] DATE CREATED AUTHOR AUTHOR'S ORGANIZ ATION 05/26/2022 [facility] ([place]) DATE CREATED AUTHOR AUTHOR'S ORGANIZ ATION 11/22/2022 [facility] DATE CREATED AUTHOR AUTHOR'S ORGANIZ ATION 09/11/2023 [facility] DATE CREATED AUTHOR AUTHOR'S ORGANIZ ATION 04/13/2025 [facility] Care Team (unrecognized sect ion and content) Care Team Personnel Name: ROMAN NICHOLS Member Role: Primary Care Physician Address: Address: [address] Care Team Related Persons Name: GRIFFIN MCKEON Address: [place] [address] Care Team Personnel Name: ROMAN NICHOLS Member Role: Primary Care Physician Address: Address: [address] Care Team Related Persons Name: TALISHA MCKEONA Address: [place] [address] Care Team Personnel Name: ROMAN NICHOLS Member Role: Primary Care Physician Address: Address: [address] Care Team Related Persons Name: GRIFFIN MCKEON Address: [place] [address] Goals (unrecognized section and content) Goals may be documented in a n alternate section Care Teams (unrecognized sec tion and content) Team Status: Active Member Role Status Dates Steff Subramanian LOAN ADVISER, LOAN ADVISER-C Family Provider Active HENRI Cornell Primary Care Provider Active Team Status: Inactive Member Role Status Dates HENRI Cornell Primary Care Provi shiloh, Attending Provider, Referring Provider Active 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 Peyton Rucker MD Attending Provider Active Start: November 06, 2024 End: November 06, 2024 Team Status: Inactive Member Role Status Dates Roman Nichols LOAN ADVISER-C Primary Care Provider Active Start: November 06, 2024 End: November 06, 2024 Dr. Peyton Rucker MD Attending Provider Active Start: November 06, 2024 End: November 06, 2024 Dr. Peyton Rucker MD Referring Provider Active Start: November 06, 2024 End: November 06, 2024 Team Status: Inactive Member Role Status Dates Roman Nichols LOAN ADVISER-C Primary Care Provider Active Start: December 04, 2024 End: December 04, 2024 Dr. Peyton Rucker MD Attending Provider Active Start: December 04, 2024 End: December 04, 2024 Dr. Peyton Rucker MD Referring Provider Active Start: December 04, 2024 End: December 04, 2024 Team Status: Active Member Role Status Dates Roman Nichols LOAN ADVISER-C Primary Care Provider Active Start: December 04, 2024 Dr. Peyton Rucker MD Attending Provider Active Start: December 04, 2024 Team Status: Active Member Role/Relationship Status Dates Roman Nichols LOAN ADVISER-C Primary Care Provider Active Team Status: Inactive Member Role/Relationship Status Dates Roman Nichols LOAN ADVISER-C Primary Care Provider Active Start: November 06, 2024 End: November 06, 2024 Roman Nichols LOAN ADVISER-C Referring Provider Active Start: November 06, 2024 End: November 06, 2024 Dr. Peyton Rucker MD Attending Provider Active Start: November 06, 2024 End: November 06, 2024 Team Status: Inactive Member Role/Relationship Status Dates Roman Nichols LOAN ADVISER-C Primary Care Provider Active Start: November 06, 2024 End: November 06, 2024 Dr. Peyton Rucker MD Attending Provider Active Start: November 06, 2024 End: November 06, 2024 Dr. Peyton Rucker MD Referring Provider Active Start: November 06, 2024 End: November 06, 2024 Team Status: Inactive Member Role/Relationship Status Dates Roman Nichols LOAN ADVISER-C Primary Care Provider Active Start: December 04, 2024 End: December 04, 2024 Dr. Peyton Rucker MD Attending Provider Active Start: December 04, 2024 End: December 04, 2024 Dr. Peyton Rucker MD Referring Provider Active Start: December 04, 2024 End: December 04, 2024 Team Status: Active Member Role/Relationship Status Dates Roman Nichols LOAN ADVISER-C Primary Care Provider Active Start: December 04, 2024 Dr. Peyton Rucker MD Attending Provider Active Start: December 04, 2024 Team Status: Inactive Member Role/Relationship Status Dates Roman Nichols LOAN ADVISER-C Primary Care Provider Active Start: January 15, 2025 End: January 15, 2025 Hodan Lockett LOAN ADVISER, LOAN ADVISER-C Attending Provider Active Start: January 15, 2025 End: January 15, 2025 Hodan Lockett LOAN ADVISER, LOAN ADVISER-C Referring Provider Active Start: January 15, 2025 End: January 15, 2025 Team Status: Active Member Role/Relationship Status Dates Roman Nichols LOAN ADVISER-C Primary Care Provider Active Start: January 17, 2025 Hodan Lockett LOAN ADVISER, LOAN ADVISER-C Attending Provider Active Start: January 17, 2025 Hodan Lockett LOAN ADVISER, LOAN ADVISER-C Referring Provider Active Start: January 17, 2025 Team Status: Inactive Member Role/Relationship Status Dates Roman Nichols LOAN ADVISER-C Primary Care Provider Active Start: January 17, 2025 End: January 17, 2025 Hodan Lockett LOAN ADVISER, LOAN ADVISER-C Attending Provider Active Start: January 17, 2025 End: January 17, 2025 Hodan Lockett LOAN ADVISER, LOAN ADVISER-C Referring Provider Active Start: January 17, 2025 End: January 17, 2025 Team Status: Inactive Member Role/Relationship Status Dates Roman Nichols LOAN ADVISER-C Primary Care Provider Active Start: February 17, 2025 End: February 17, 2025 Hodan Lockett LOAN ADVISER, LOAN ADVISER-C Attending Provider Active Start: February 17, 2025 End: February 17, 2025 Hodan Lockett LOAN ADVISER, LOAN ADVISER-C Referring Provider Active Start: February 17, 2025 End: February 17, 2025 Team Status: Active Member Role/Relationship Status Dates Roman Nichols , LOAN ADVISER-C Primary care physician Active Team Status: Inactive Member Role/Relationship Status Dates Roman Nichols LOAN ADVISER-C Primary care physician Active Start: January 15, 2025 End: January 15, 2025 Hodan Lockett LOAN ADVISER, LOAN ADVISER-C Attending physician Active Start: January 15, 2025 End: January 15, 2025 Hodan Lockett LOAN ADVISER, LOAN ADVISER-C Referring Provider Active Start: January 15, 2025 End: January 15, 2025 Team Status: Inactive Member Role/Relationship Status Dates Roman Nichols , LOAN ADVISER-C Primary care physician Active Start: January 17, 2025 End: January 17, 2025 Hodan Lockett LOAN ADVISER, LOAN ADVISER-C Attending physician Active Start: January 17, 2025 End: January 17, 2025 Hodan Lockett LOAN ADVISER, LOAN ADVISER-C Referring Provider Active Start: January 17, 2025 End: January 17, 2025 Team Status: Inactive Member Role/Relationship Status Dates Roman Nichols LOAN ADVISER-C Primary care physician Active Start: February 17, 2025 End: February 17, 2025 Hodan Lockett LOAN ADVISER, LOAN ADVISER-C Attending physician Active Start: February 17, 2025 End: February 17, 2025 Hodan Locktet LOAN ADVISER, LOAN ADVISER-C Referring Provider Active Start: February 17, 2025 End: February 17, 2025 Team Status: Active Member Role/Relationship Status Dates Roman Nichols LOAN ADVISER-C Primary care physician Active Start: February 17, 2025 Dr. George Mcwilliams MD Attending physician Active Start: February 17, 2025 Hodan Lockett LOAN ADVISER, LOAN ADVISER-C Referring Provider Active Start: February 17, 2025 Team Status: Active Member Role/Relationship Status Dates Roman Nichols LOAN ADVISER-C Primary care physician Active Start: April 02, 2025 Roman Nichols LOAN ADVISER-C Attending physician Active Start: April 02, 2025 Roman Nichols , LOAN ADVISER-C Referring Provider Active Start: April 02, 2025 Team Status: Inactive Member Role/Relationship Status Dates HENRI Cornell Primary care physician Active Start: April 09, 2025 End: April 09, 2025 HENRI Cornell Referring Provider Active Start: April 09, 2025 End: April 09, 2025 Dr. Peyton Rucker MD Attending physician Active Start: April 09, 2025 End: April 09, 2025 Team Status: Inactive Member Role/Relationship Status Dates HENRI Cornell Primary care physician Active Start: April 02, 2025 End: April 02, 2025 HENRI Cornell Attending physician Active Start: April 02, 2025 End: April 02, 2025 HENRI Cornell Referring Provider Active Start: April 02, 2025 End: April 02, 2025 Source Comments (unrecognize d section and content) In the event this informatio n is protected by the Federal Confidentiality of Alcohol and Drug Abuse Patient Records regulations: The Federal rules restrict any use of the information to criminally investigate or prosecute any alcohol or drug abuse patient.[facility] Reason for Visit (unrecogniz ed section and content) Reason Comments CARD New Patient Consult LOAN ADVISER REF FOR PAF FOR RECORDS PERTAINING TO [...] BE BASED ON THE PRIMARY CLINICAL RECORDS. [employer] [facility]. provides no warranty or guarantee of the accuracy or completeness of information in this document.
[2025-05-28 10:23] LABS: Hematocrit 44.1 % (40-54); Hemoglobin 15.3 g/dL (13.0-16.5); Immature Granulocytes Count 0.040 X10^3/uL (0.0-0.0); Mean Corp Hgb Conc 34.7 g/dL (32-36); Mean Corpuscular Volume 85.0 fL (80-94); Mean Platelet Vol. 9.5 fl (6.2-12.0); NRBC Flagged by Analyzer 0 % (0-5); Platelet Count 159 K/mm3 (150-450); RBC Distribution Width CV 13.5 % (11.6-14.6); RBC Distribution Width SD 42.2 fl (35.1-43.9); Red Blood Count 5.19 M/mm3 (4.6-6.2); White Blood Count 8.1 K/mm3 (4.4-11.0)
[2025-05-28 10:57] LABS: AST(SGOT) 35 U/L (<=37); Alanine Aminotransfer ALT/SGPT 35 U/L (<=46); Albumin, Serum 3.9 g/dL (3.4-4.8); Alkaline Phosphatase 75 U/L (40-129); Anion Gap 10 (5-15); BUN 18 mg/dL (4-19); BUN/Creat Ratio 14.1 RATIO (10-20); Calcium,Total 9.6 mg/dL (7.6-11.0); Carbon Dioxide 20.8 mmol/L (21.0-32.0); Chloride 106 mmol/L (98-108); Cholesterol 147 mg/dL (<=200); Globulin 2.8 g/dL (2.2-4.2); Glucose 91 mg/dL (70-99); Low Density Lipoprotein Calc. 97 mg/dL; PSA,Total - Annual Screen 1.51 ng/mL (0.02-4.00); Potassium 4.2 mmol/L (3.3-5.1); Triglycerides 59 mg/dL; Very Low Density Lipoprotein 12 mg/dL (5-40); Vitamin D,25 Hydroxy 89.5 ng/mL (30-100); cholesterol:hdl ratio screen 3.87
== END | disposition home or self-care (01) ==
LOC: MTLAB 07:12
PROVIDERS: PCP Nurse Practitioner Family; Referring Provider Nurse Practitioner Family; Visit Provider Nurse Practitioner Family
DX: Z12.5 Encounter for screening for malignant neoplasm of prostate (principal); I10 Essential (primary) hypertension; E78.5 Hyperlipidemia, unspecified; E55.9 Vitamin D deficiency, unspecified
CPT/HCPCS: 36415; 80053; 80061; 82306; 84153; 85025; G0103